=== PATIENT | male | born 1950 | race Two or more races ===

== ENCOUNTER 2021-06-12 14:03 | Inpatient (IN) | payer OTHER ==
[~2021-06-12] VITALS: Ht 172.7 cm; Wt 69.2 kg
[2021-06-12 14:59] LABS: Basophils # (auto) 0 10 ^3/uL (0-0.2); Basophils % (auto) 0.5 % (0.0-2.0); Eosinophils # (auto) 0.5 10 ^3/uL (0-0.8); Eosinophils % (auto) 7.2 % (0.0-7.0); Hematocrit 35.6 % (41.0-53.0); Hemoglobin 11.9 g/dL (13.5-17.5); Lymphocytes # (auto) 1.7 10 ^3/uL (0.4-5.4); Lymphocytes % (auto) 23.3 % (10.0-50.0); Mean Corpuscular Hemoglobin 32.4 pg (28.0-32.0); Mean Corpuscular Hgb Conc. 33.4 g/dL (32.0-36.0); Mean Corpuscular Volume 96.9 fL (80.0-100.0); Monocytes # (auto) 0.5 10 ^3/uL (0-1.3); Monocytes % (auto) 7.2 % (0.0-12.0); Neutrophils # (auto) 4.4 10 ^3/uL (1.6-8.6); Neutrophils % (auto) 61.8 % (37.0-80.0); Red Blood Cells 3.68 10^6/uL (4.5-5.90); Red Cell Distribution Width 13.6 % (11.8-14.3); White Blood Cell 7.2 10^3/uL (4.4-10.8)
[2021-06-12 15:19] LABS: Albumin 3.3 g/dL (3.4-5.0); BUN/Creatinine Ratio 30.3; Bilirubin, Total 0.3 mg/dL (0.2-1.0); Calcium 9.2 mg/dL (8.5-10.1); Total Protein 7.1 g/dL (6.4-8.2)
[2021-06-12 15:55] LABS: Potassium 5.6 mmol/L (3.5-5.1)
[2021-06-12] MEDS ORDERED: DEXTROSE (50%) 50ML SYRG IV ONE (16:15)
[2021-06-12] MEDS ORDERED: FUROSEMIDE 20 MG/2 ML VIAL IV ONE (16:15)
[2021-06-12] MEDS ORDERED: SODIUM BICARBONATE 8.4% INJ 50ML SYRINGE IV ONE (16:15)
[2021-06-12] MEDS ORDERED: CALCIUM GLUC 1,000mg/50ml-NS 50 ML IV ONE (16:15)
[2021-06-12] MEDS ORDERED: InsuLIN REG 1unit/0.01ml Soln (100units/ml) IV ONE (16:15)
[2021-06-12] MEDS ORDERED: ALBUTEROL SULF 2.5 MG/0.5ML(0.5%) NEB SOLN NEB ONE (16:15)
[2021-06-12] MEDS ORDERED: SODIUM ZIRCONIUM CYCL 10 GM PAK PO ONE ×2 (16:15→22:00)
[2021-06-12 20:54] LABS: Urine Bacteria FEW /hpf (None Seen); Urine Blood Negative /uL (Negative); Urine Specific Gravity 1.012 (1.001-1.035); Urine WBC 3 /hpf (0 - 3)
[2021-06-12] MEDS ORDERED: NITROGLYCERIN 0.4 MG SL TAB SL PRN (22:00)
[2021-06-12] MEDS ORDERED: ONDANSETRON HCL 4 MG/2 ML VIAL IV PRN (22:00)
[2021-06-12] MEDS: InsuLIN REG 1unit/0.01ml Soln (100units/ml) SC SCH (22:00)
[2021-06-12] MEDS ORDERED: ACETAMINOPHEN 325 MG TAB PO PRN (22:00)
[2021-06-12] MEDS ORDERED: DEXTROSE (50%) 50ML SYRG IV PRN (22:00)
[2021-06-12] MEDS ORDERED: MORPHINE SULFATE INJECTION 2 MG/ML SYRG IV PRN (22:00)
[2021-06-12] MEDS: ACCU-CHEK COMFORT CURVE STRIP VI SCH (22:23)
[2021-06-12] MEDS: ATORVASTATIN 20 MG TAB PO SCH (23:12)
[2021-06-13] MEDS: ACCU-CHEK COMFORT CURVE STRIP VI SCH ×5 (06:32→21:45)
[2021-06-13] MEDS: InsuLIN REG 1unit/0.01ml Soln (100units/ml) SC SCH ×3 (06:32→17:33)
[2021-06-13 07:50] LABS: Basophils # (auto) 0 10 ^3/uL (0-0.2); Basophils % (auto) 0.6 % (0.0-2.0); Eosinophils # (auto) 0.3 10 ^3/uL (0-0.8); Eosinophils % (auto) 3.6 % (0.0-7.0); Hematocrit 34.1 % (41.0-53.0); Hemoglobin 11.5 g/dL (13.5-17.5); Lymphocytes # (auto) 1.7 10 ^3/uL (0.4-5.4); Lymphocytes % (auto) 22.4 % (10.0-50.0); Mean Corpuscular Hemoglobin 32.4 pg (28.0-32.0); Mean Corpuscular Hgb Conc. 33.8 g/dL (32.0-36.0); Monocytes # (auto) 0.6 10 ^3/uL (0-1.3); Monocytes % (auto) 7.5 % (0.0-12.0); Neutrophils # (auto) 4.9 10 ^3/uL (1.6-8.6); Neutrophils % (auto) 65.9 % (37.0-80.0); Red Blood Cells 3.55 10^6/uL (4.5-5.90); Red Cell Distribution Width 13.6 % (11.8-14.3); White Blood Cell 7.4 10^3/uL (4.4-10.8)
[2021-06-13] MEDS: cefTRIAXone 1GM/50ML D5W 50 ML IV SCH (08:56)
[2021-06-13 09:55] LABS: BUN/Creatinine Ratio 32.5; Calcium 9.3 mg/dL (8.5-10.1); Potassium 5.5 mmol/L (3.5-5.1)
[2021-06-13] MEDS: PANTOPRAZOLE 40 MG TAB PO SCH (10:06)
[2021-06-13] MEDS: FUROSEMIDE 40 MG/4 ML VIAL IV SCH (17:04)
[2021-06-13] MEDS ORDERED: ATOR10TA52 PO (19:04)
[2021-06-13] MEDS ORDERED: GLIP10TA9 PO (19:04)
[2021-06-13] MEDS ORDERED: METF500S PO (19:04)
[2021-06-13 20:00] VITALS: BP 102/68
[2021-06-13] MEDS ORDERED: SODIUM BICARBONATE 8.4 % INJ 50ML VIAL IV ONE (21:00)
[2021-06-13] MEDS ORDERED: DEXTROSE (50%) 50ML SYRG IV ONE (21:00)
[2021-06-13] MEDS ORDERED: CALCIUM GLUC 1,000mg/50ml-NS 50 ML IV ONE (21:00)
[2021-06-13] MEDS ORDERED: ALBUTEROL SULF 2.5 MG/0.5ML(0.5%) NEB SOLN NEB ONE (21:00)
[2021-06-13] MEDS ORDERED: InsuLIN REG 1unit/0.01ml Soln (100units/ml) IV ONE (21:00)
[2021-06-13 22:00] VITALS: BP 102/68
[2021-06-13] MEDS ORDERED: LORazepam 2MG/ML-1ML VIAL IV PRN (22:15)
[2021-06-14] MEDS: ATORVASTATIN 20 MG TAB PO SCH ×2 (00:50→22:08)
[2021-06-14 05:00] VITALS: BP 128/68
[2021-06-14 05:43] LABS: Basophils # (auto) 0.1 10 ^3/uL (0-0.2); Basophils % (auto) 1.7 % (0.0-2.0); Eosinophils # (auto) 0.4 10 ^3/uL (0-0.8); Eosinophils % (auto) 6.2 % (0.0-7.0); Hematocrit 34.8 % (41.0-53.0); Hemoglobin 11.9 g/dL (13.5-17.5); Lymphocytes # (auto) 1.8 10 ^3/uL (0.4-5.4); Lymphocytes % (auto) 26.2 % (10.0-50.0); Mean Corpuscular Hemoglobin 32.6 pg (28.0-32.0); Mean Corpuscular Hgb Conc. 34.1 g/dL (32.0-36.0); Mean Corpuscular Volume 95.5 fL (80.0-100.0); Monocytes # (auto) 0.5 10 ^3/uL (0-1.3); Monocytes % (auto) 7.6 % (0.0-12.0); Neutrophils # (auto) 4.1 10 ^3/uL (1.6-8.6); Neutrophils % (auto) 58.3 % (37.0-80.0); Nucleated Red Blood Cells % 0.1 %; Red Blood Cells 3.65 10^6/uL (4.5-5.90); Red Cell Distribution Width 13.7 % (11.8-14.3)
[2021-06-14 06:09] LABS: Calcium 9.2 mg/dL (8.5-10.1); Magnesium 1.9 mg/dL (1.6-2.6); Potassium 4.6 mmol/L (3.5-5.1)
[2021-06-14 06:11] LABS: BUN/Creatinine Ratio 37.2
[2021-06-14 06:12] LABS: Cholesterol 90 mg/dL (< 200); HDL Cholesterol 38 mg/dL (40-59); LDL Cholesterol 44 mg/dL (< 100); Triglycerides 70 mg/dL (< 150)
[2021-06-14] MEDS: ACCU-CHEK COMFORT CURVE STRIP VI SCH ×4 (07:00→22:09)
[2021-06-14] MEDS: InsuLIN REG 1unit/0.01ml Soln (100units/ml) SC SCH ×5 (07:00→22:08)
[2021-06-14] MEDS: PANTOPRAZOLE 40 MG TAB PO SCH (08:57)
[2021-06-14] MEDS: ASPirin-EC 81 mg tab PO SCH (08:57)
[2021-06-14] MEDS: cefTRIAXone 1GM/50ML D5W 50 ML IV SCH (08:57)
[2021-06-14] MEDS: FUROSEMIDE 40 MG/4 ML VIAL IV SCH (08:58)
[2021-06-14 09:00] VITALS: BP 136/90
[2021-06-14 12:57] VITALS: BP 148/86
[2021-06-14] MEDS ORDERED: LIDOCAINE 2% JELLY 11ml (GLYDO) UR ONE (13:00)
[2021-06-14 17:00] VITALS: BP 127/86
[2021-06-14] MEDS: TAMSULOSIN HYDROCHLORIDE 0.4 MG CAP PO SCH (17:45)
[2021-06-14 22:00] VITALS: BP 102/60
[2021-06-15 04:30] VITALS: BP 114/61
[2021-06-15] MEDS: InsuLIN REG 1unit/0.01ml Soln (100units/ml) SC SCH ×4 (07:00→23:36)
[2021-06-15 07:15] LABS: Potassium 4.8 mmol/L (3.5-5.1)
[2021-06-15 07:21] LABS: BUN/Creatinine Ratio 29.9; Calcium 8.9 mg/dL (8.5-10.1)
[2021-06-15] MEDS: ACCU-CHEK COMFORT CURVE STRIP VI SCH ×4 (07:45→23:37)
[2021-06-15 09:00] VITALS: BP 100/64
[2021-06-15] MEDS: cefTRIAXone 1GM/50ML D5W 50 ML IV SCH (10:26)
[2021-06-15] MEDS: ASPirin-EC 81 mg tab PO SCH (10:27)
[2021-06-15] MEDS: PANTOPRAZOLE 40 MG TAB PO SCH (10:27)
[2021-06-15] MEDS: FUROSEMIDE 40 MG/4 ML VIAL IV SCH (10:27)
[2021-06-15 13:00] VITALS: BP_SYST 117; BP_SYST 146; BP_DIAS 62; BP_DIAS 75
[2021-06-15] MEDS: TAMSULOSIN HYDROCHLORIDE 0.4 MG CAP PO SCH (16:54)
[2021-06-15 17:00] VITALS: BP 146/75
[2021-06-15 22:00] VITALS: BP 106/57
[2021-06-15] MEDS: ATORVASTATIN 20 MG TAB PO SCH (23:32)
[2021-06-15] MEDS: HEPARIN SODIUM (PORCINE) 5000 UNITS/ML 1ML VIAL SC SCH (23:33)
[2021-06-16 05:30] VITALS: BP 142/63
[2021-06-16 06:19] LABS: Basophils # (auto) 0 10 ^3/uL (0-0.2); Basophils % (auto) 0.7 % (0.0-2.0); Eosinophils # (auto) 0.5 10 ^3/uL (0-0.8); Eosinophils % (auto) 7.4 % (0.0-7.0); Hematocrit 32.2 % (41.0-53.0); Lymphocytes # (auto) 1.9 10 ^3/uL (0.4-5.4); Lymphocytes % (auto) 27.5 % (10.0-50.0); Mean Corpuscular Hemoglobin 32.6 pg (28.0-32.0); Mean Corpuscular Hgb Conc. 34.1 g/dL (32.0-36.0); Mean Corpuscular Volume 95.5 fL (80.0-100.0); Monocytes # (auto) 0.6 10 ^3/uL (0-1.3); Monocytes % (auto) 8.9 % (0.0-12.0); Neutrophils # (auto) 3.8 10 ^3/uL (1.6-8.6); Neutrophils % (auto) 55.5 % (37.0-80.0); Nucleated Red Blood Cells % 0.1 %; Red Blood Cells 3.38 10^6/uL (4.5-5.90); Red Cell Distribution Width 13.4 % (11.8-14.3); White Blood Cell 6.9 10^3/uL (4.4-10.8)
[2021-06-16] MEDS: InsuLIN REG 1unit/0.01ml Soln (100units/ml) SC SCH ×4 (06:25→22:16)
[2021-06-16] MEDS: ACCU-CHEK COMFORT CURVE STRIP VI SCH ×4 (06:26→21:59)
[2021-06-16 06:37] LABS: Potassium 4.6 mmol/L (3.5-5.1)
[2021-06-16 06:46] LABS: BUN/Creatinine Ratio 34.9; Calcium 9.4 mg/dL (8.5-10.1); Magnesium 1.9 mg/dL (1.6-2.6)
[2021-06-16 09:11] VITALS: BP 126/72
[2021-06-16] MEDS: cefTRIAXone 1GM/50ML D5W 50 ML IV SCH (09:49)
[2021-06-16] MEDS: HEPARIN SODIUM (PORCINE) 5000 UNITS/ML 1ML VIAL SC SCH ×2 (09:49→22:16)
[2021-06-16] MEDS: PANTOPRAZOLE 40 MG TAB PO SCH (09:50)
[2021-06-16] MEDS: ASPirin-EC 81 mg tab PO SCH (09:50)
[2021-06-16] MEDS: FUROSEMIDE 40 MG/4 ML VIAL IV SCH (09:50)
[2021-06-16 13:16] VITALS: BP 150/88
[2021-06-16 15:53] LABS: BUN/Creatinine Ratio 33.2; Calcium 8.7 mg/dL (8.5-10.1)
[2021-06-16 17:00] VITALS: BP 139/81
[2021-06-16] MEDS: TAMSULOSIN HYDROCHLORIDE 0.4 MG CAP PO SCH (18:21)
[2021-06-16] MEDS: ALBUMIN 25% 100 ML IV SCH ×2 (20:04→21:57)
[2021-06-16] MEDS: ATORVASTATIN 20 MG TAB PO SCH (21:56)
[2021-06-16] MEDS: CARVEDILOL 3.125 MG TAB PO SCH (21:59)
[2021-06-16 22:00] VITALS: BP_SYST 65; BP_SYST 80; BP_SYST 99; BP_DIAS 39; BP_DIAS 49; BP_DIAS 56
[2021-06-17 05:00] VITALS: BP 133/68
[2021-06-17] MEDS: ACCU-CHEK COMFORT CURVE STRIP VI SCH ×4 (05:55→21:56)
[2021-06-17] MEDS: InsuLIN REG 1unit/0.01ml Soln (100units/ml) SC SCH ×4 (05:55→22:04)
[2021-06-17 07:02] LABS: Calcium 9.3 mg/dL (8.5-10.1); Potassium 4.3 mmol/L (3.5-5.1)
[2021-06-17 07:04] LABS: BUN/Creatinine Ratio 33.6
[2021-06-17 09:00] VITALS: BP 150/89
[2021-06-17] MEDS: CARVEDILOL 3.125 MG TAB PO SCH ×2 (09:23→22:00)
[2021-06-17] MEDS: cefTRIAXone 1GM/50ML D5W 50 ML IV SCH (09:23)
[2021-06-17] MEDS: PANTOPRAZOLE 40 MG TAB PO SCH (09:24)
[2021-06-17] MEDS: ASPirin-EC 81 mg tab PO SCH (09:24)
[2021-06-17] MEDS: HEPARIN SODIUM (PORCINE) 5000 UNITS/ML 1ML VIAL SC SCH ×2 (09:24→22:04)
[2021-06-17] MEDS ORDERED: SODIUM CHLORIDE 0.9% 1,000 ML IV ONE (11:30)
[2021-06-17 13:00] VITALS: BP 109/68
[2021-06-17 17:00] VITALS: BP 152/67
[2021-06-17] MEDS: TAMSULOSIN HYDROCHLORIDE 0.4 MG CAP PO SCH (17:34)
[2021-06-17] MEDS: ATORVASTATIN 20 MG TAB PO SCH (21:55)
[2021-06-17 22:00] VITALS: BP 133/64
[2021-06-18 05:00] VITALS: BP 148/78
[2021-06-18] MEDS: InsuLIN REG 1unit/0.01ml Soln (100units/ml) SC SCH ×4 (06:05→21:43)
[2021-06-18] MEDS: ACCU-CHEK COMFORT CURVE STRIP VI SCH ×4 (06:05→21:41)
[2021-06-18 06:29] LABS: BUN/Creatinine Ratio 36.3; Calcium 9.4 mg/dL (8.5-10.1); Potassium 4.7 mmol/L (3.5-5.1)
[2021-06-18 09:00] VITALS: BP 150/81
[2021-06-18] MEDS: cefTRIAXone 1GM/50ML D5W 50 ML IV SCH (09:14)
[2021-06-18] MEDS: HEPARIN SODIUM (PORCINE) 5000 UNITS/ML 1ML VIAL SC SCH ×2 (10:00→21:43)
[2021-06-18] MEDS: CARVEDILOL 3.125 MG TAB PO SCH ×2 (12:26→22:00)
[2021-06-18] MEDS: PANTOPRAZOLE 40 MG TAB PO SCH (12:38)
[2021-06-18] MEDS: ASPirin-EC 81 mg tab PO SCH (12:38)
[2021-06-18 13:00] VITALS: BP 152/78
[2021-06-18 16:27] LABS: BUN/Creatinine Ratio 32.4; Calcium 9.4 mg/dL (8.5-10.1)
[2021-06-18 17:00] VITALS: BP 189/86
[2021-06-18] MEDS: TAMSULOSIN HYDROCHLORIDE 0.4 MG CAP PO SCH (18:23)
[2021-06-18] MEDS: ATORVASTATIN 20 MG TAB PO SCH (21:41)
[2021-06-18 22:00] VITALS: BP 152/73
[2021-06-18 23:10] VITALS: BP 152/73
[2021-06-19 05:30] VITALS: BP 155/76
[2021-06-19] MEDS: InsuLIN REG 1unit/0.01ml Soln (100units/ml) SC SCH (06:42)
[2021-06-19] MEDS: ACCU-CHEK COMFORT CURVE STRIP VI SCH (06:42)
== END 2021-06-19 07:07 | disposition home or self-care (01) | DRG 312 ==
LOC: EDBD 14:03 → ER 14:03 → TELE 21:53 → TELE-WESTW 06-13 18:04
PROVIDERS: ADMIT Nurse Practitioner; ATTEND Internal Medicine
DX: I95.1 Orthostatic hypotension (principal); N17.0 Acute kidney failure with tubular necrosis; N39.0 Urinary tract infection, site not specified; E87.5 Hyperkalemia; E11.43 Type 2 diabetes mellitus with diabetic autonomic (poly)neuropathy; Z20.822 Contact with and (suspected) exposure to COVID-19; E11.22 Type 2 diabetes mellitus with diabetic chronic kidney disease; I12.9 Hypertensive chronic kidney disease with stage 1 through stage 4 chronic kidney disease, or unspecified chronic kidney disease; I65.22 Occlusion and stenosis of left carotid artery; N18.9 Chronic kidney disease, unspecified; N40.1 Benign prostatic hyperplasia with lower urinary tract symptoms; R33.8 Other retention of urine; Z79.82 Long term (current) use of aspirin; Z79.84 Long term (current) use of oral hypoglycemic drugs; Z79.899 Other long term (current) drug therapy; Z82.3 Family history of stroke; Z82.49 Family history of ischemic heart disease and other diseases of the circulatory system; Z85.47 Personal history of malignant neoplasm of testis
CPT/HCPCS: 36415; 70450; 70551; 71045; 76775; 80048; 80053; 80061; 81001; 82962; 83735; 83880; 84132; 84154; 84484; 85025; 87086; 87426; 93005; 93306; 93886; 94640; 95819; 96365; 96375; 97163; 99291; G0378; J0696; J1815; P9047

== ENCOUNTER 2025-02-23 12:37 | Inpatient (IN) | payer OTHER, MEDICAID ==
[~2025-02-23] VITALS: Ht 172.7 cm; Wt 71.6 kg
[~2025-02-23 12:37] MED LIST: ATOR10TA52 PO; GLIP10TA9 PO; METF500S3 PO
--- NOTE | 2025-02-23 13:29 | ED.PDOC ---
Musculoskeletal HPI Comments 74 y/o M, with PMHx of HTN, DM, HLD, CKD III, and testicular cancer presents to the ED for CC of lower extremity. Patient states, that he has been experiencing right foot pain with associated right great toe pain, swelling, erythema, and discharge x1week. Patient reports, despite having regular wound care symptoms continue to worsen. Patient denies fever, chills, sweats, recent trauma, fall, or injury. No other symptoms or modifying factors present at this time. Chief Complaint: Lower Extremity Time Seen by MD: 13:20 Primary Care Provider: ANKUR Reviewed Notes: Nurses Notes, Medications, Allergies Allergies: Coded Allergies: NO KNOWN ALLERGIES (Unverified , 06/12/21) Home Meds Reported Medications Atorvastatin Calcium (ATORVASTATIN CALCIUM) 10 Mg Tab, 10 MG PO DAILY, TAB 06/13/21 Glipizide (Glipizide) 10 Mg Tab, 10 MG PO, TAB 06/13/21 Metformin HCl (Metformin Hydrochloride) 500 Mg/5 Ml Gwendolyn, 500 MG PO, ML 06/13/21 Information Source: Patient Mode of Arrival: Ambulatory Location: Right Extremity Location: Foot, Great Toe Timing: Weeks Prehospital treatment: None Severity: Moderate Able to Move Extremity: Yes Bear Weight: Limited Pain: Moderate Mechanism: Spontaneous Circumstances: Spontaneous Onset of Symptoms: Spontaneous Symptoms: Swelling, Pain, Erythema DVT Risk Factors: Cancer Last Tetanus: Unknown Associated signs and symptoms: None Past Medical History PAST MEDICAL HISTORY: Cancer, CKF, DM, High Lipids, HTN Surgical History (Other): TESTICULAR Family History Family History: Reviewed,noncontributory to illness Social History Smoker: Non-Smoker Alcohol: Denies ETOH Use Drugs: Denies Drug Use Constitutional: denies: chills, diaphoresis, fatigue, fever, malaise, sweats, weakness, others EENTM: denies: blurred vision, double vision, ear bleeding, ear discharge, ear drainage, ear pain, ear ringing, eye pain, eye redness, hearing loss, mouth pain, mouth swelling, nasal discharge, nose bleeding, nose congestion, nose pain, photophobia, tearing, throat pain, throat swelling, voice changes, others Respiratory: denies: cough, hemoptysis, orthopnea, SOB at rest, shortness of breath, SOB with excertion, stridor, wheezing, others Cardiovascular: denies: chest pain, dizzy spells, diaphoresis, Dyspnea on exertion, edema, irregular heart beat, left arm pain, lightheadedness, palpitations, PND, syncope, others Gastrointestinal: denies: abdomen distended, abdominal pain, blood streaked bowels, constipated, diarrhea, dysphagia, difficulty swallowing, hematemesis, melena, nausea, poor appetite, poor fluid intake, rectal bleeding, rectal pain, vomiting, others Genitourinary: denies: burning, dysuria, flank pain, frequency, hematuria, incontinence, penile discharge, penile sore, pain, testicle pain, testicle swelling, urgency, others Neurological: denies: dizziness, fainting, headache, left sided numbness, left sided weakness, numbness, paresthesia, pre-existing deficit, right sided numbness, right sided weakness, seizure, speech problems, tingling, tremors, weakness, others Musculoskeletal: reports: others (RIGHT GREAT TOE PAIN); denies: back pain, gout, joint pain, joint swelling, muscle pain, muscle stiffness, neck pain Integumetry: denies: bruises, change in color, change in hair/nails, dryness, laceration, lesions, lumps, rash, wounds, others Allergic/Immunocompromised: denies: Difficulty Healing, Frequent Infections, Hives, Itching, others Hematologic/Lymphatic: denies: anemia, blood clots, easy bleeding, easy bruising, swollen glands, others Endocrine: denies: excessive hunger, excessive sweating, excessive thirst, excessive urination, flushing, intolerance to cold, intolerance to heat, unexplained weight gain, unexplained weight loss, others Psychiatric: denies: anxiety, bipolar disorder, depression, hopeless, panic disorder, schizophrenia, sleepless, suicidal, others All Other Systems: Reviewed and Negative Physical Exam General Appearance: Moderate Distress HEENT: Normal ENT Inspection, Pharynx Normal, TMs Normal Neck: Full Range of Motion, Non-Tender, Normal, Normal Inspection Respiratory: Chest Non-Tender, Lungs Clear, No Accessory Muscle Use, No Respiratory Distress, Normal Breath Sounds Cardiovascular: No Edema, No JVD, No Murmur, No Gallop, Normal Peripheral Pulses, Regular Rate/Rhythm Breast Exam: Deferred Gastrointestinal: No Organomegaly, Non Tender, No Pulsatile Mass, Normal Bowel Sounds, Soft Genitalia: Deferred Pelvic: Deferred Rectal: Deferred Extremities: No calf tenderness, Normal capillary refill, No pedal edema Musculoskeletal : Location: Right Extremity Location: Foot (Redness to the right great toe with necrosis to the bottom of the right great toe) Apperance: Limited ROM, Tenderness: Moderate, Other (The patient has a splint to the right lower extremity) Neurologic: Alert, furnace firer II-XII nml as Tested, No Motor Deficits, Normal Affect, Normal Mood, No Sensory Deficits Cerebellar Function: Normal Reflexes: Normal Skin: Dry, Normal Color, Warm Lymphatic: No Adenopathy Was a procedure done? Was a procedure done?: No Differential Diagnosis EXT Differential Diagnosis: Cellulitis, Gout, Bursitis X-Ray, Labs, Meds, VS Vital Signs Date Time Temp Pulse Resp B/P (MAP) Pulse Ox O2 Delivery O2 Flow Rate FiO2 02/23/25 12:43 98.9 87 20 96/55 (69) 96 98.9 101/58 (72) Lab Test 02/23/25 13:48 02/23/25 13:08 Range/Units White Blood Count 6.8 4.4-10.8 10^3/uL Red Blood Count 3.97 L 4.5-5.90 10^6/uL Hemoglobin 12.7 L 13.5-17.5 g/dL Hematocrit 36.1 L 41.0-53.0 % Mean Corpuscular Volume 90.9 80.0-100.0 fL Mean Corpuscular Hemoglobin 32.1 H 28.0-32.0 pg Mean Corpuscular Hemoglobin Concent 35.2 32.0-36.0 g/dL Red Cell Distribution Width 13.7 11.8-14.3 % Platelet Count 359 140-450 10^3/uL Mean Platelet Volume 7.3 6.9-10.8 fL Neutrophils (%) (Auto) 74.5 37.0-80.0 % Lymphocytes (%) (Auto) 13.9 10.0-50.0 % Monocytes (%) (Auto) 9.5 0.0-12.0 % Eosinophils (%) (Auto) 1.5 0.0-7.0 % Basophils (%) (Auto) 0.6 0.0-2.0 % Neutrophils # (Auto) 5.0 1.6-8.6 10 ^3/uL Lymphocytes # (Auto) 0.9 0.4-5.4 10 ^3/uL Monocytes # (Auto) 0.6 0-1.3 10 ^3/uL Eosinophils # (Auto) 0.1 0-0.8 10 ^3/uL Basophils # (Auto) 0 0-0.2 10 ^3/uL Nucleated Red Blood Cells 0.0 % Erythrocyte Sedimentation Rate 93 H 0-20 mm/hr Sodium Level 135 L 136-145 mmol/L Potassium Level 2.5 *L 3.5-5.1 mmol/L Chloride Level 86 L 98-107 mmol/L Carbon Dioxide Level 34 H 20-31 mmol/L Anion Gap 15 5-15 Blood Urea Nitrogen 80 *H 9-23 mg/dL Creatinine 2.56 H 0.700-1.30 mg/dL Glomerular Filtration Rate Calc 26 >90 mL/min BUN/Creatinine Ratio 31.3 H 10.0-20.0 Serum Glucose 197 H 74-106 mg/dL Calcium Level 10.5 H 8.7-10.4 mg/dL POC Glucose 195 H 70-106 mg/dl CT RIGHT FOOT: Findings/IMPRESSION: No acute fracture or dislocation. Old medial malleolar fracture. There is soft tissue emphysema and ulceration along the medial aspect of the 1st digit. There are erosive changes along the medial aspect and base of the 1st distal phalanx concerning for osteomyelitis /aggressive process. Correlate clinically. Recommend MRI of the right foot to evaluate. There is diffuse right ankle and foot soft tissue edema more pronounced along the dorsal aspect. Pronounced soft tissue edema along the right foot 1st digit. Atherosclerotic calcification disease. Right foot osteomyelitis was seen on the CAT scan The patient's chemistry panel shows hypokalemia at 2.5 as well as a BUN of 80 and creatinine of 2.56 The patient's CBC is within normal limits The patient is being admitted to the hospitalist Images Reviewed?: Images reviewed and evaluated by me Time of 1ST Reevaluation: 13:50 Reevaluation 1ST: Unchanged Patient Education/Counseling: Diagnosis, Treatment, Prognosis Family Education/Counseling: No Family Present Departure 1 Departure Time of Disposition: 14:48 Impression: Primary Impression: Hypokalemia Additional Impression: Foot osteomyelitis, right Qualified Codes: M86.9 - Osteomyelitis, unspecified Disposition: 09 ADMITTED INPATIENT Admit to: [facility] Condition: Fair Critical Care Note Critical Care Time?: No Stability Stability form required: No Heart Score Heart Score: Heart Score Response (Comments) Value History N/A 0 EKG N/A 0 Age N/A 0 Risk Factors N/A 0 Troponin N/A 0 Total 0 I personally scribed for ROSS VEGA MD ([email or web address]) on 02/23/25 at 13:29. Electronically submitted by Jana Parada ([email or web address]). I personally scribed for ROSS VEGA MD ([email or web address]) on 02/23/25 at 14:39. Electronically submitted by Jana Parada ([email or web address]). ROSS VEGA MD Feb 23, 2025 13:29
[2025-02-23 13:55] LABS: Basophils # (auto) 0 10 ^3/uL (0-0.2); Basophils % (auto) 0.6 % (0.0-2.0); Eosinophils # (auto) 0.1 10 ^3/uL (0-0.8); Eosinophils % (auto) 1.5 % (0.0-7.0); Hematocrit 36.1 % (41.0-53.0); Hemoglobin 12.7 g/dL (13.5-17.5); Lymphocytes # (auto) 0.9 10 ^3/uL (0.4-5.4); Lymphocytes % (auto) 13.9 % (10.0-50.0); Mean Corpuscular Hemoglobin 32.1 pg (28.0-32.0); Mean Corpuscular Hgb Conc. 35.2 g/dL (32.0-36.0); Mean Corpuscular Volume 90.9 fL (80.0-100.0); Monocytes # (auto) 0.6 10 ^3/uL (0-1.3); Monocytes % (auto) 9.5 % (0.0-12.0); Neutrophils % (auto) 74.5 % (37.0-80.0); Platelet Count (auto) 359 10^3/uL (140-450); Red Blood Cells 3.97 10^6/uL (4.5-5.90); Red Cell Distribution Width 13.7 % (11.8-14.3); White Blood Cell 6.8 10^3/uL (4.4-10.8)
[2025-02-23 14:09] LABS: Calcium 10.5 mg/dL (8.7-10.4); Carbon Dioxide 34 mmol/L (20-31)
[2025-02-23 14:11] LABS: BUN/Creatinine Ratio 31.3 (10.0-20.0)
[2025-02-23 14:13] LABS: Sodium 135 mmol/L (136-145)
[2025-02-23 14:14] LABS: Anion Gap 15 (5-15); Chloride 86 mmol/L (98-107); Glucose 197 mg/dL (74-106); Potassium 2.5 mmol/L (3.5-5.1)
[2025-02-23 14:15] LABS: Blood Urea Nitrogen 80 mg/dL (9-23)
--- NOTE | 2025-02-23 14:21 | DVH ---
Indication: pain Technique: CT axial images of the right foot are obtained without contrast. Coronal and sagittal refo rmats were obtained. Comparison: None Findings/IMPRESSION: No acute fracture or dislocation. Old medial malleolar fracture. There is soft tissue emphysema and ulceration along the medial aspect of the 1st digit. There are erosive changes along the medial aspect and base of the 1st distal phalanx concerning for o steomyelitis /aggressive process. Correlate clinically. Recommend MRI of the right foot to evaluate . There is diffuse right ankle and foot soft tissue edema more pronounced along the dorsal aspect. Pron ounced soft tissue edema along the right foot 1st digit. Atherosclerotic calcification disease.
[2025-02-23 14:33] LABS: Erythrocyte Sedimentation Rate 93 mm/hr (0-20)
[2025-02-23] MEDS: SODIUM CHLORIDE 0.9% 500 ML IV ONE (17:00)
[2025-02-23] MEDS: VANCOMYCIN 1GM/200ML PM 200 ML IV ONE (17:39)
[2025-02-23] MEDS: POTASSIUM CHL 20MEQ/100ML 100 ML IV ONE (17:39)
[2025-02-23] MEDS ORDERED: DOCUSATE SOD 100 MG CAP PO PRN (19:30)
[2025-02-23] MEDS ORDERED: ACETAMINOPHEN 325 MG TAB PO PRN (19:30)
[2025-02-23] MEDS ORDERED: ONDANSETRON HCL 4 MG/2 ML VIAL IV PRN (19:30)
--- NOTE | 2025-02-23 19:46 | DVHHP2 ---
Admitting Diagnosis: right foot cellulitis History of Present Illness 74 y/o M, with PMHx of HTN, DM, HLD, CKD III, and testicular cancer presents to the ED for CC of lower extremity. Patient states, that he has been experiencing right foot pain with associated right great toe pain, swelling, erythema, and discharge x1week. Patient reports, despite having regular wound care symptoms continue to worsen. Patient denies fever, chills, sweats, recent trauma, fall, or injury. No other symptoms or modifying factors present at this time. PAST MEDICAL HISTORY: Cancer, CKF, DM, High Lipids, HTN Surgical History (Other): TESTICULAR Family History Family History: Reviewed,noncontributory to illness Social History Smoker: Non-Smoker Alcohol: Denies ETOH Use Drugs: Denies Drug Use Patient Family History: Cerebrovascular accident (CVA) G8 MOTHER Allergies: Coded Allergies: NO KNOWN ALLERGIES (Unverified , 06/12/21) Home Meds Reported Medications Atorvastatin Calcium (ATORVASTATIN CALCIUM) 10 Mg Tab, 10 MG PO DAILY, TAB 06/13/21 Glipizide (Glipizide) 10 Mg Tab, 10 MG PO, TAB 06/13/21 Metformin HCl (Metformin Hydrochloride) 500 Mg/5 Ml Gwendolyn, 500 MG PO, ML 06/13/21 Current Medications Current Medications Medications (Trade) Dose Ordered Sig/Bandar Route PRN Reason Start Time Stop Time Status Last Admin Piperacillin Sod/ Tazobactam Sod 100 ml @ 100 mls/hr BID IV 02/23/25 22:00 UNV Sodium Chloride (Saline Lock Ns) 10 ml Q8HR IV 02/23/25 22:00 UNV Docusate Sodium (Colace Capsule) 100 mg BIDPRN PRN PO FOR CONSTIPATION 02/23/25 19:30 UNV Acetaminophen (Tylenol Tablet) 650 mg Q6HP PRN PO PAIN SCALE 1-3 OR TEMP>100.4 02/23/25 19:30 UNV Acetaminophen/ Hydrocodone Bitart ([place] 5/325MG Tab) 1 tab Q4HP PRN PO MODERATE PAIN (4-6 PAIN SCALE) 02/23/25 19:30 UNV Ondansetron HCl (Zofran) 4 mg Q4HP PRN IV NAUSEA / VOMITING 02/23/25 19:30 UNV Vital Signs Vital Signs Date Time Temp Pulse Resp B/P (MAP) Pulse Ox O2 Delivery O2 Flow Rate FiO2 02/23/25 17:56 98.3 16 85 132/65 (87) 97 98.3 02/23/25 16:25 Room Air* 0 21 Physical Exam Generally-74 years old male, well nourished well developed. Mild distress HEENT-atraumatic, normocephalic Heart-regular rate and rhythm Lungs clear to auscultate bilaterally Abdomen soft nontender nondistended Musculoskeletal-right foot wrapped in bandages, right toe erythema and tender, base has healed lesion Neuro-awake alert oriented x3, strength intact bilaterally. Mild decreased sensation bilateral plantar surface Results Labs Test 02/23/25 13:48 02/23/25 13:08 Range/Units White Blood Count 6.8 4.4-10.8 10^3/uL Red Blood Count 3.97 L 4.5-5.90 10^6/uL Hemoglobin 12.7 L 13.5-17.5 g/dL Hematocrit 36.1 L 41.0-53.0 % Mean Corpuscular Volume 90.9 80.0-100.0 fL Mean Corpuscular Hemoglobin 32.1 H 28.0-32.0 pg Mean Corpuscular Hemoglobin Concent 35.2 32.0-36.0 g/dL Red Cell Distribution Width 13.7 11.8-14.3 % Platelet Count 359 140-450 10^3/uL Mean Platelet Volume 7.3 6.9-10.8 fL Neutrophils (%) (Auto) 74.5 37.0-80.0 % Lymphocytes (%) (Auto) 13.9 10.0-50.0 % Monocytes (%) (Auto) 9.5 0.0-12.0 % Eosinophils (%) (Auto) 1.5 0.0-7.0 % Basophils (%) (Auto) 0.6 0.0-2.0 % Neutrophils # (Auto) 5.0 1.6-8.6 10 ^3/uL Lymphocytes # (Auto) 0.9 0.4-5.4 10 ^3/uL Monocytes # (Auto) 0.6 0-1.3 10 ^3/uL Eosinophils # (Auto) 0.1 0-0.8 10 ^3/uL Basophils # (Auto) 0 0-0.2 10 ^3/uL Nucleated Red Blood Cells 0.0 % Erythrocyte Sedimentation Rate 93 H 0-20 mm/hr Sodium Level 135 L 136-145 mmol/L Potassium Level 2.5 *L 3.5-5.1 mmol/L Chloride Level 86 L 98-107 mmol/L Carbon Dioxide Level 34 H 20-31 mmol/L Anion Gap 15 5-15 Blood Urea Nitrogen 80 *H 9-23 mg/dL Creatinine 2.56 H 0.700-1.30 mg/dL Glomerular Filtration Rate Calc 26 >90 mL/min BUN/Creatinine Ratio 31.3 H 10.0-20.0 Serum Glucose 197 H 74-106 mg/dL Calcium Level 10.5 H 8.7-10.4 mg/dL POC Glucose 195 H 70-106 mg/dl Primary Diagnosis Cellulitis rule out osteomyelitis AD on CKD Hypokalemia Hyperglycemia Plan Vancomycin for broad-spectrum antibiotics Podiatry consult Check blood culture Check CRP, ESR Ultrasound abdomen to assess for AD on CKD Dr. Giles consult for AD on CKD Urine sodium, urine creatinine IV fluids NPO after midnight for possible debridement Full code PPI prophylaxis SCD for DVT prophylaxis Plan discussed with: Patient Problems List: (1) Foot osteomyelitis, right Status: Acute (2) Hypokalemia Status: Acute Date of Service: Feb 23, 2025 Billing Provider: LAY ZURITA MD Common Visit Codes: [id number]-[id number] INP/OBS CARE (HIGH) LAY ZURITA MD Feb 23, 2025 19:46
[2025-02-23] MEDS: PIPERACILLIN-TAZOB 3.375GM 100 ML IV ONE (19:48)
[2025-02-23] MEDS ORDERED: DEXTROSE (50%) 50ML SYRG IV PRN (20:00)
[2025-02-23 20:28] LABS: Alkaline Phosphatase 55 U/L (46-116); Anion Gap 12 (5-15); BUN/Creatinine Ratio 28.8 (10.0-20.0); Calcium 10.1 mg/dL (8.7-10.4); Sodium 137 mmol/L (136-145)
[2025-02-23 20:29] LABS: Albumin 4.4 g/dL (3.2-4.8); Aspartate Aminotransferase 15 U/L (<34); Bilirubin, Total 0.7 mg/dL (0.2-1.0)
[2025-02-23 20:30] LABS: Alanine Aminotransferase < 9 U/L (7-40); Blood Urea Nitrogen 79 mg/dL (9-23); Carbon Dioxide 34 mmol/L (20-31); Chloride 91 mmol/L (98-107); Glucose 203 mg/dL (74-106); Potassium 2.6 mmol/L (3.5-5.1)
--- NOTE | 2025-02-23 21:29 | DVH ---
INDICATION: AD on CKD TECHNIQUE: Multiple real-time sonographic images of the kidneys and bladder were obtained. COMPARISON: KIDNEY on DOS: 06/13/21 FINDINGS: RIGHT kidney measures 7.6 cm in length with normal parenchymal echotexture and cortical thickness. No hydronephrosis. LEFT kidney measures 6.4 cm in length with normal parenchymal echotexture and cortical thickness. No hydronephrosis. No large intraluminal masses are seen in the bladder. Urinary bladder wall thickness is 0.2 cm. Post void residual was not evaluated. IMPRESSION: 1. Unremarkable examination. Mild bilateral renal atrophy.
[2025-02-23] MEDS: LACTATED RINGER'S 1,000 ML IV ONE (21:35)
[2025-02-23] MEDS: ACCU-CHEK COMFORT CURVE STRIP VI SCH (21:38)
[2025-02-23] MEDS: InsuLIN REG 1unit/0.01ml Soln (100units/ml) SC SCH (21:44)
[2025-02-23] MEDS: SODIUM CHLOR 0.9% PF (SALINE LOCK) 10ML VIAL/SYR IV SCH (21:46)
[2025-02-23] MEDS ORDERED: VANCOMYCIN PER PHARMACY 0 MG IV SCH (22:30)
[2025-02-23 22:43] LABS: Creatinine, Urine 133.45 mg/dL (30.0-125.0)
[2025-02-23 23:05] VITALS: BP 143/69; PULSE 74; RESP 18; TEMP 97.3; O2SAT 97
[2025-02-24] VITALS (9 sets, daily range): BP systolic 141–158; BP diastolic 58–79; PULSE 70–85; RESP 16–18; TEMP 97–97.8; O2SAT 96–99
[2025-02-24] MEDS: PIPERACILLIN-TAZOB 3.375GM 100 ML IV SCH (05:17)
[2025-02-24] MEDS ORDERED: AMLO1TAB22 PO (06:09)
[2025-02-24] MEDS ORDERED: GLIP2.5T9 PO (06:09)
[2025-02-24] MEDS ORDERED: ASPI-628 PO (06:09)
[2025-02-24] MEDS ORDERED: CALC1CHW PO (06:09)
[2025-02-24] MEDS ORDERED: FURO40TA4 PO (06:09)
[2025-02-24] MEDS ORDERED: CARV12.544 PO (06:09)
[2025-02-24] MEDS ORDERED: TAMS0.4C39 PO (06:09)
[2025-02-24] MEDS: InsuLIN REG 1unit/0.01ml Soln (100units/ml) SC SCH (06:21)
[2025-02-24 07:30] LABS: Basophils # (auto) 0 10 ^3/uL (0-0.2); Basophils % (auto) 0.7 % (0.0-2.0); Eosinophils # (auto) 0.2 10 ^3/uL (0-0.8); Eosinophils % (auto) 3.1 % (0.0-7.0); Hematocrit 33.8 % (41.0-53.0); Lymphocytes # (auto) 1.2 10 ^3/uL (0.4-5.4); Lymphocytes % (auto) 19.6 % (10.0-50.0); Mean Corpuscular Hemoglobin 32.4 pg (28.0-32.0); Mean Corpuscular Hgb Conc. 35.5 g/dL (32.0-36.0); Mean Corpuscular Volume 91.2 fL (80.0-100.0); Monocytes # (auto) 0.7 10 ^3/uL (0-1.3); Monocytes % (auto) 11.6 % (0.0-12.0); Neutrophils # (auto) 3.9 10 ^3/uL (1.6-8.6); Nucleated Red Blood Cells % 0.1 %; Platelet Count (auto) 303 10^3/uL (140-450); Red Blood Cells 3.71 10^6/uL (4.5-5.90); Red Cell Distribution Width 13.7 % (11.8-14.3); White Blood Cell 5.9 10^3/uL (4.4-10.8)
[2025-02-24 07:53] LABS: Albumin 4.1 g/dL (3.2-4.8); Alkaline Phosphatase 49 U/L (46-116); Anion Gap 13 (5-15); Aspartate Aminotransferase 13 U/L (<34); BUN/Creatinine Ratio 30.2 (10.0-20.0); Bilirubin, Total 0.7 mg/dL (0.2-1.0); Calcium 10.2 mg/dL (8.7-10.4); Sodium 140 mmol/L (136-145); Total Protein 7.5 g/dL (5.7-8.2)
[2025-02-24 08:04] LABS: Alanine Aminotransferase < 9 U/L (7-40); Blood Urea Nitrogen 75 mg/dL (9-23); Carbon Dioxide 34 mmol/L (20-31); Chloride 93 mmol/L (98-107); Glucose 114 mg/dL (74-106)
[2025-02-24 08:06] LABS: Potassium 2.4 mmol/L (3.5-5.1)
[2025-02-24] MEDS: POTASSIUM CHLORIDE 40 MEQ, LIDOCAINE 1% (LOCAL ANESTH.) 4 ML in SODIUM CHL 0.9% 250 ML IV ONE (08:30)
[2025-02-24] MEDS: MAGNESIUM SULFATE 1GM/100ML 100 ML IV ONE (09:29)
--- NOTE | 2025-02-24 09:34 | DVHINCON2 ---
Date of service: Feb 24, [address] Montero Reason for Consultation Acute kidney injury hypokalemia History of Present Illness 74 y/o M, with PMHx of HTN, DM, HLD, CKD III, and cancer?? Presented with chief complaints of foot ulcer and pain patient tells me last month he had his blood drawn and was told he had Chronic kidney disease three both his legs were in a bandage, patient seen with RN bedside Past Medical History As per HPI Past Surgical History As per HPI Allergies: Coded Allergies: NO KNOWN ALLERGIES (Unverified , 06/12/21) Home Meds Reported Medications Tamsulosin Hcl (Tamsulosin Hcl) 0.4 Mg Cap, 0.4 MG PO QPM for 30 Days, MG 02/24/25 Amlodipine Besylate (Amlodipine Besylate) 5 Mg Tab, 1 TAB PO DAILY 02/24/25 Furosemide (Furosemide) 40 Mg Tab, 1 TAB PO DAILY 02/24/25 Aspirin (Aspirin Adult Low Dose) 81 Mg Tab, 1 TAB PO DAILY 02/24/25 Glipizide (Glipizide Er) 2.5 Mg Tab, TAB PO 02/24/25 Carvedilol (Carvedilol) 12.5 Mg Tab, TAB PO 02/24/25 Calcium Carbonate-Cholecalcife (Calcium 500-10 mg-Mcg) 1 Chw Chw, 1 TAB PO BID 02/24/25 Atorvastatin Calcium (ATORVASTATIN CALCIUM) 10 Mg Tab, 10 MG PO DAILY, TAB 06/13/21 Glipizide (Glipizide) 10 Mg Tab, 10 MG PO, TAB 06/13/21 Metformin HCl (Metformin Hydrochloride) 500 Mg/5 Ml Gwendolyn, 500 MG PO, ML 06/13/21 Current Medications Current Medications Medications (Trade) Dose Ordered Sig/Bandar Route PRN Reason Start Time Stop Time Status Last Admin Piperacillin Sod/ Tazobactam Sod 100 ml @ 25 mls/hr Q12H IV 02/24/25 06:00 02/24/25 05:17 Sodium Chloride (Saline Lock Ns) 10 ml Q8HR IV 02/23/25 22:00 02/24/25 06:18 Docusate Sodium (Colace Capsule) 100 mg BIDPRN PRN PO FOR CONSTIPATION 02/23/25 19:30 Acetaminophen (Tylenol Tablet) 650 mg Q6HP PRN PO PAIN SCALE 1-3 OR TEMP>100.4 02/23/25 19:30 Acetaminophen/ Hydrocodone Bitart ([place] 5/325MG Tab) 1 tab Q4HP PRN PO MODERATE PAIN (4-6 PAIN SCALE) 02/23/25 19:30 Ondansetron HCl (Zofran) 4 mg Q4HP PRN IV NAUSEA / VOMITING 02/23/25 19:30 Diagnostic Test (Pha) (Accu-Chek Comfort Curve T) 1 strip ACHS 02/23/25 22:00 02/24/25 06:21 Insulin Human Regular (InsuLIN R) HS SC 02/23/25 22:00 02/23/25 21:44 Insulin Human Regular (InsuLIN R) AC SC 02/24/25 07:00 Dextrose 50 ml UD PRN IV Blood Sugar LESS THAN 60 02/23/25 20:00 Pantoprazole Sodium (Protonix) 40 mg DAILY IV 02/24/25 10:00 Atorvastatin Calcium (Lipitor) 10 mg HS PO 02/24/25 22:00 Vancomycin HCl 0 ml @ 0 mls/hr UD IV 02/23/25 22:30 Potassium Bicarbonate (Klor-Con/Ef) 50 meq BID PO 02/24/25 10:00 02/26/25 22:01 UNV Family History: Cerebrovascular accident (CVA) G8 MOTHER FH: CABG (coronary artery bypass surgery) G8 FATHER FH: liver disease G8 FATHER Hepatitis C G8 FATHER Review of Systems HEENT-denies headache, denies vision changes, no hearing issue, denies neck complaints, denies throat issues Respiratory system-denies cough, denies shortness of breath Cardiovascular system-denies chest pain, denies palpitations Abdomen-denies abdominal pain, denies nausea, denies vomiting, denies constipation or diarrhea Musculoskeletal-denies swelling in the legs, positive pain in the extremities Genitourinary-denies urinary symptoms like dysuria, stream issues Neuro-denies dizziness, denies seizures Psychiatric-denies psychiatric history H&P Exam Vital Signs/I&O Vital Sign Date Time Temp Pulse Resp B/P (MAP) Pulse Ox O2 Delivery O2 Flow Rate FiO2 02/24/25 05:00 97.1 74 18 141/76 (97) 98 97.1 02/23/25 23:05 Room Air* 0 21 Intake and Output 02/23/25 02/24/25 18:59 06:59 Intake Total 100 ml Output Total 300 ml Balance -200 ml Intake Oral 0 ml IV Total 100 ml Output Urine Total 300 ml Physical Exam General-not in any distress HEENT-normocephalic, no icterus, no pallor, neck supple Respiratory-fair air entry bilateral, no rhonchi, no wheeze [id number] heard, no murmurs appreciated Abdominal-soft, nontender, nondistended Musculoskeletal-both bilateral lower extremities wrapped in bandage no significant edema Genitourinary-deferred Neuro-awake alert oriented x3, Psychiatric-not agitated, cooperative, Labs/Diagnostic Data Labs/Diagnostic Data Laboratory Tests Test 02/24/25 06:24 02/24/25 06:02 02/23/25 21:50 02/23/25 21:37 Range/Units White Blood Count 5.9 4.4-10.8 10^3/uL Red Blood Count 3.71 L 4.5-5.90 10^6/uL Hemoglobin 12.0 L 13.5-17.5 g/dL Hematocrit 33.8 L 41.0-53.0 % Mean Corpuscular Volume 91.2 80.0-100.0 fL Mean Corpuscular Hemoglobin 32.4 H 28.0-32.0 pg Mean Corpuscular Hemoglobin Concent 35.5 32.0-36.0 g/dL Red Cell Distribution Width 13.7 11.8-14.3 % Platelet Count 303 140-450 10^3/uL Mean Platelet Volume 7.6 6.9-10.8 fL Neutrophils (%) (Auto) 65.0 37.0-80.0 % Lymphocytes (%) (Auto) 19.6 10.0-50.0 % Monocytes (%) (Auto) 11.6 0.0-12.0 % Eosinophils (%) (Auto) 3.1 0.0-7.0 % Basophils (%) (Auto) 0.7 0.0-2.0 % Neutrophils # (Auto) 3.9 1.6-8.6 10 ^3/uL Lymphocytes # (Auto) 1.2 0.4-5.4 10 ^3/uL Monocytes # (Auto) 0.7 0-1.3 10 ^3/uL Eosinophils # (Auto) 0.2 0-0.8 10 ^3/uL Basophils # (Auto) 0 0-0.2 10 ^3/uL Nucleated Red Blood Cells 0.1 % Sodium Level 140 136-145 mmol/L Potassium Level 2.4 *L 3.5-5.1 mmol/L Chloride Level 93 L 98-107 mmol/L Carbon Dioxide Level 34 H 20-31 mmol/L Anion Gap 13 5-15 Blood Urea Nitrogen 75 H 9-23 mg/dL Creatinine 2.48 H 0.700-1.30 mg/dL Glomerular Filtration Rate Calc 27 >90 mL/min BUN/Creatinine Ratio 30.2 H 10.0-20.0 Serum Glucose 114 H 74-106 mg/dL Calcium Level 10.2 8.7-10.4 mg/dL Total Bilirubin 0.7 0.2-1.0 mg/dL Aspartate Amino Transferase (AST) 13 <34 U/L Alanine Aminotransferase (ALT) < 9 7-40 U/L Alkaline Phosphatase 49 46-116 U/L Total Protein 7.5 5.7-8.2 g/dL Albumin 4.1 3.2-4.8 g/dL Random Vancomycin Level 15.1 H 5-10 ug/mL POC Glucose 123 H 202 H 70-106 mg/dl Urine Creatinine 133.45 H 30.0-125.0 mg/dL Urine Sodium 30 L 40-220 mmol/L Test 02/23/25 20:00 02/23/25 13:48 02/23/25 13:08 Range/Units Sodium Level 137 135 L 136-145 mmol/L Potassium Level 2.6 L 2.5 *L 3.5-5.1 mmol/L Chloride Level 91 L 86 L 98-107 mmol/L Carbon Dioxide Level 34 H 34 H 20-31 mmol/L Anion Gap 12 15 5-15 Blood Urea Nitrogen 79 H 80 *H 9-23 mg/dL Creatinine 2.74 H 2.56 H 0.700-1.30 mg/dL Glomerular Filtration Rate Calc 24 26 >90 mL/min BUN/Creatinine Ratio 28.8 H 31.3 H 10.0-20.0 Serum Glucose 203 H 197 H 74-106 mg/dL Calcium Level 10.1 10.5 H 8.7-10.4 mg/dL Total Bilirubin 0.7 0.2-1.0 mg/dL Aspartate Amino Transferase (AST) 15 <34 U/L Alanine Aminotransferase (ALT) < 9 7-40 U/L Alkaline Phosphatase 55 46-116 U/L Total Protein 8.0 5.7-8.2 g/dL Albumin 4.4 3.2-4.8 g/dL White Blood Count 6.8 4.4-10.8 10^3/uL Red Blood Count 3.97 L 4.5-5.90 10^6/uL Hemoglobin 12.7 L 13.5-17.5 g/dL Hematocrit 36.1 L 41.0-53.0 % Mean Corpuscular Volume 90.9 80.0-100.0 fL Mean Corpuscular Hemoglobin 32.1 H 28.0-32.0 pg Mean Corpuscular Hemoglobin Concent 35.2 32.0-36.0 g/dL Red Cell Distribution Width 13.7 11.8-14.3 % Platelet Count 359 140-450 10^3/uL Mean Platelet Volume 7.3 6.9-10.8 fL Neutrophils (%) (Auto) 74.5 37.0-80.0 % Lymphocytes (%) (Auto) 13.9 10.0-50.0 % Monocytes (%) (Auto) 9.5 0.0-12.0 % Eosinophils (%) (Auto) 1.5 0.0-7.0 % Basophils (%) (Auto) 0.6 0.0-2.0 % Neutrophils # (Auto) 5.0 1.6-8.6 10 ^3/uL Lymphocytes # (Auto) 0.9 0.4-5.4 10 ^3/uL Monocytes # (Auto) 0.6 0-1.3 10 ^3/uL Eosinophils # (Auto) 0.1 0-0.8 10 ^3/uL Basophils # (Auto) 0 0-0.2 10 ^3/uL Nucleated Red Blood Cells 0.0 % Erythrocyte Sedimentation Rate 93 H 0-20 mm/hr POC Glucose 195 H 70-106 mg/dl Assessment Acute kidney injury on Chronic kidney disease IIIb likely hemodynamic etiology Hypokalemia Metabolic alkalosis Foot ulcer Diabetes Hypertension Recommendations Potassium replacement as ordered NS IV with 40 KCL as ordered Home medications reviewed patient taking hydrochlorothiazide 50 mg and Lasix 40 mg--we will hold diuretics for now Strict Is&Os charting No hydronephrosis on ultrasound Rest of the management per primary Plan discussed with: Patient SHANTANU BECK MD Feb 24, 2025 09:34
[2025-02-24] MEDS: PNEUMOCOCCAL VACC POLYS 25 MCG/0.5 ML VIAL IM ONE (09:57)
[2025-02-24] MEDS ORDERED: POTASSIUM EFFERVESENT TAB 25 MEQ PO SCH (10:00)
[2025-02-24] MEDS: PANTOPRAZOLE 40 MG/10 ML VIAL INJ IV SCH (10:56)
[2025-02-24] MEDS: VANCOMYCIN 750mg/150ml 150 ML IV ONE (11:19)
--- NOTE | 2025-02-24 14:31 | DVH ---
CLINICAL HISTORY: Right foot cellulitis. TECHNIQUE: Multi sequence multi planar MRI images of the right foot were obtained without IV contras t. COMPARISON: CT CT R FOOT WO CONTRAST on DOS: 02/23/25 FINDINGS: Wound at the distal aspect of the great toe with surrounding soft tissue edema, likely ibeth lulitis in the appropriate clinical setting. There is marrow edema with T1 hypointense and t2/stir hy perintense signal in the distal phalanx with possible erosive changes, suspected osteomyelitis in the appropriate clinical setting. No marrow signal abnormality in the proximal phalanx of the great toe or in the rest of the visualized osseous structures to suggest osteomyelitis. There is cortical defo rmity of the articular surface of the 3rd metatarsal head, suspected subchondral fracture with mild m arrow edema. Moderate subcutaneous edema along the dorsal aspect of the forefoot, possible cellulitis in the appropriate clinical setting. There is [id number] tenosynovitis of the flexor hallucis longus tendon along its plantar course to the level of the knot of [place]. Marked fatty atrophy of the intrinsic musculature of the foot. IMPRESSION: 1. Wound at the distal aspect of the great toe with surrounding soft tissue inflammatory changes, lik zackary cellulitis in the appropriate clinical setting. No organized fluid collection identified to sugge st abscess, although limited evaluation for abscess on noncontrast enhanced exam. 2. Findings consistent with osteomyelitis in the distal phalanx of the great toe in the appropriate c linical setting. 3. Subchondral fracture of the 3rd metatarsal head with associated marrow edema and mild cortical def ormity. 4. Moderate subcutaneous edema along the dorsal aspect of the forefoot, may be due to cellulitis in t he appropriate clinical setting. 5. Additional findings as described above.
[2025-02-24 16:59] LABS: Albumin 4.3 g/dL (3.2-4.8); Alkaline Phosphatase 54 U/L (46-116); Anion Gap 10 (5-15); Aspartate Aminotransferase 16 U/L (<34); BUN/Creatinine Ratio 30.6 (10.0-20.0); Calcium 9.8 mg/dL (8.7-10.4); Glucose 83 mg/dL (74-106); Sodium 141 mmol/L (136-145); Total Protein 7.8 g/dL (5.7-8.2)
[2025-02-24 17:00] LABS: Bilirubin, Total 0.8 mg/dL (0.2-1.0)
[2025-02-24 17:04] LABS: Alanine Aminotransferase < 9 U/L (7-40); Blood Urea Nitrogen 63 mg/dL (9-23); Carbon Dioxide 37 mmol/L (20-31); Chloride 94 mmol/L (98-107); Potassium 2.6 mmol/L (3.5-5.1)
[2025-02-24] MEDS: SOD CHL 0.9%/ KCL 40MEQ 1,000 ML IV ONE (17:36)
[2025-02-24] MEDS: POTASSIUM EFFERVESENT TAB 25 MEQ PO ONE (17:49)
[2025-02-24] MEDS: POTASSIUM CHL 20 Meq TABLET PO ONE (19:27)
[2025-02-24] MEDS: ATORVASTATIN 20 MG TAB PO SCH (21:09)
[2025-02-25] VITALS (10 sets, daily range): BP systolic 119–136; BP diastolic 55–72; PULSE 76–86; RESP 16–18; TEMP 97.6–98.9; O2SAT 94–99
[2025-02-25 06:31] LABS: Basophils # (auto) 0 10 ^3/uL (0-0.2); Basophils % (auto) 0.6 % (0.0-2.0); Eosinophils # (auto) 0.2 10 ^3/uL (0-0.8); Eosinophils % (auto) 2.8 % (0.0-7.0); Hematocrit 34.5 % (41.0-53.0); Hemoglobin 12.3 g/dL (13.5-17.5); Lymphocytes % (auto) 12.3 % (10.0-50.0); Mean Corpuscular Hemoglobin 32.6 pg (28.0-32.0); Mean Corpuscular Hgb Conc. 35.6 g/dL (32.0-36.0); Mean Corpuscular Volume 91.6 fL (80.0-100.0); Monocytes # (auto) 0.7 10 ^3/uL (0-1.3); Monocytes % (auto) 8.5 % (0.0-12.0); Neutrophils % (auto) 75.8 % (37.0-80.0); Nucleated Red Blood Cells % 0.2 %; Platelet Count (auto) 318 10^3/uL (140-450); Red Blood Cells 3.76 10^6/uL (4.5-5.90); Red Cell Distribution Width 13.9 % (11.8-14.3)
[2025-02-25 06:54] LABS: Albumin 4.1 g/dL (3.2-4.8); Alkaline Phosphatase 50 U/L (46-116); Anion Gap 9 (5-15); Aspartate Aminotransferase 15 U/L (<34); BUN/Creatinine Ratio 25.4 (10.0-20.0); Calcium 9.5 mg/dL (8.7-10.4); Chloride 101 mmol/L (98-107); Potassium 4.3 mmol/L (3.5-5.1); Sodium 142 mmol/L (136-145); Total Protein 7.3 g/dL (5.7-8.2)
[2025-02-25 06:55] LABS: Bilirubin, Total 0.7 mg/dL (0.2-1.0)
[2025-02-25 07:00] LABS: Carbon Dioxide 32 mmol/L (20-31); Glucose 168 mg/dL (74-106)
[2025-02-25 07:01] LABS: Alanine Aminotransferase < 9 U/L (7-40); Blood Urea Nitrogen 51 mg/dL (9-23)
--- NOTE | 2025-02-25 09:26 | DVHPN2 ---
Progress Note Date Seen: Feb 25, 2025 Medical Necessity Reason Pt with a Central, PICC or Fol: No Subjective Patient reports: No new complaints Other Systems: Patient seen and examined by myself today in follow-up Objective vital signs Vital Sign Date Time Temp Pulse Resp B/P (MAP) Pulse Ox O2 Delivery O2 Flow Rate FiO2 02/25/25 08:20 98.5 86 17 121/55 (77) 94 98.5 02/25/25 08:09 Room Air* 0 21 Total Intake and Output 02/24/25 02/24/25 02/25/25 15:00 23:00 07:00 Intake Total 524 ml 100 ml 1750 ml Output Total 100 ml 950 ml Balance 524 ml 0 ml 800 ml medications Current Medications Medications Dose Ordered Sig/Bandar Route Start Time Stop Time Status Last Admin Dose Admin Piperacillin Sod/ Tazobactam Sod 100 ml @ 25 mls/hr Q12H IV 02/24/25 06:00 02/25/25 05:46 25 MLS/HR Sodium Chloride 10 ml Q8HR IV 02/23/25 22:00 02/25/25 05:46 10 ML Docusate Sodium 100 mg BIDPRN PRN PO 02/23/25 19:30 Acetaminophen 650 mg Q6HP PRN PO 02/23/25 19:30 Acetaminophen/ Hydrocodone Bitart 1 tab Q4HP PRN PO 02/23/25 19:30 Ondansetron HCl 4 mg Q4HP PRN IV 02/23/25 19:30 Diagnostic Test (Pha) 1 strip ACHS 02/23/25 22:00 02/25/25 06:15 1 STRIP Insulin Human Regular HS SC 02/23/25 22:00 02/24/25 21:10 8 UNITS Insulin Human Regular AC SC 02/24/25 07:00 02/25/25 06:15 3 UNITS Dextrose 50 ml UD PRN IV 02/23/25 20:00 Pantoprazole Sodium 40 mg DAILY IV 02/24/25 10:00 02/25/25 09:16 40 MG Atorvastatin Calcium 10 mg HS PO 02/24/25 22:00 02/24/25 21:09 10 MG Vancomycin HCl 0 ml @ 0 mls/hr UD IV 02/23/25 22:30 Examination: LUNGS:Normal, CVS:Normal, MSK:Abnormal laboratory and microbiology Laboratory Tests 02/25/25 06:16 Test 02/25/25 06:16 Range/Units Serum Glucose 168 H 74-106 mg/dL Problem List/Assessment/Plan Problem List/Assessment/Plan Acute kidney injury on Chronic kidney disease IIIb likely hemodynamic etiology Hypokalemia Metabolic alkalosis Diabetes mellitus Osteomyelitis right foot Hypertension Recommendations Kidney function stable stage IIIB Increased urine output KCL replacement Kidney ultrasound reported bilateral echogenic kidney IV antibiotics Insulin sliding scale We will continue to follow up Plan discussed with: Patient Dietary Evaluation Review Comments: 1. Enourage and monitor PO intake to meet at least 75% of his needs. CCHO-60 Renal Standard diet 2. Offfer glucerna PO 240 ml BID as supplement if PO intake <75% 3. Review updated lipid profile d/c lipitor if LDL < 75. Expected Outcomes/Goals: Promote healing through well-managed DM and renal diet. prevent wt loss. QUOC QUINONEZ MD Feb 25, 2025 09:26
--- NOTE | 2025-02-25 13:12 | DVHPN2 ---
Reviewed: Care Plan, H&P, Labs, Medications, Previous Orders, Radiology Changes from previous H/P or p: No Changes Objective Vitals Vital Signs Date Time Temp Pulse Resp B/P (MAP) Pulse Ox O2 Delivery O2 Flow Rate FiO2 02/25/25 12:52 98.3 80 17 131/62 (85) 99 98.3 02/25/25 08:09 Room Air* 0 21 Intake/Output Intake and Output 02/25/25 07:00 Intake Total 2374 ml Output Total 1050 ml Balance 1324 ml Intake Oral 750 ml IV Total 1624 ml Output Urine Total 1050 ml # Bowel Movements 1 Medications Current Medications Medications Dose Ordered Sig/Bandar Route Start Time Stop Time Status Last Admin Dose Admin Piperacillin Sod/ Tazobactam Sod 100 ml @ 25 mls/hr Q12H IV 02/24/25 06:00 02/25/25 05:46 25 MLS/HR Sodium Chloride 10 ml Q8HR IV 02/23/25 22:00 02/25/25 05:46 10 ML Docusate Sodium 100 mg BIDPRN PRN PO 02/23/25 19:30 Acetaminophen 650 mg Q6HP PRN PO 02/23/25 19:30 Acetaminophen/ Hydrocodone Bitart 1 tab Q4HP PRN PO 02/23/25 19:30 Ondansetron HCl 4 mg Q4HP PRN IV 02/23/25 19:30 Diagnostic Test (Pha) 1 strip ACHS 02/23/25 22:00 02/25/25 10:55 1 STRIP Insulin Human Regular HS SC 02/23/25 22:00 02/24/25 21:10 8 UNITS Insulin Human Regular AC SC 02/24/25 07:00 02/25/25 10:56 6 UNITS Dextrose 50 ml UD PRN IV 02/23/25 20:00 Pantoprazole Sodium 40 mg DAILY IV 02/24/25 10:00 02/25/25 09:16 40 MG Atorvastatin Calcium 10 mg HS PO 02/24/25 22:00 02/24/25 21:09 10 MG Vancomycin HCl 0 ml @ 0 mls/hr UD IV 02/23/25 22:30 Laboratory Results Laboratory Tests 02/25/25 06:16 Chemistry Test 02/24/25 16:15 02/25/25 06:16 Albumin 4.3 g/dL (3.2-4.8) 4.1 g/dL (3.2-4.8) Calcium Level 9.8 mg/dL (8.7-10.4) 9.5 mg/dL (8.7-10.4) Total Protein 7.8 g/dL (5.7-8.2) 7.3 g/dL (5.7-8.2) LFT Test 02/24/25 16:15 02/25/25 06:16 Alanine Aminotransferase (ALT) < 9 U/L (7-40) < 9 U/L (7-40) Alkaline Phosphatase 54 U/L (46-116) 50 U/L (46-116) Aspartate Amino Transferase (AST) 16 U/L (<34) 15 U/L (<34) Total Bilirubin 0.8 mg/dL (0.2-1.0) 0.7 mg/dL (0.2-1.0) Urinalysis Test 02/23/25 21:50 Urine Creatinine 133.45 mg/dL (30.0-125.0) H Urine Sodium 30 mmol/L (40-220) L Labs and/or images reviewed: Labs reviewed by me, Image(s) reviewed by me Assessment/Plan Assessment/Plan Late entry Cellulitis right lower leg Osteomyelitis right 1st toe: Consult for Dr. Valdez, continue Zosyn and vancomycin Fracture right 3rd metatarsal Acute kidney injury on Chronic kidney disease IIIb likely hemodynamic etiology Hypokalemia Metabolic alkalosis Diabetes mellitus: Insulin sliding scale Hypertension Time spent 70 minutes Advanced care planning time 20 minutes Patient is full code Plan discussed with: Patient My Orders Orders - ADARSH WILLIS MD Procedure Category Date Status Time Renal DIET 02/24/25 Transmitted Standard(2gna,3gk,Lopho) Dinner Apply Barrier Cream SALVADOR 02/24/25 In Process 11:20 Podiatry Consult CONS 02/25/25 Transmitted 13:06 Date of Service: Feb 24, 2025 Billing Provider: ADARSH WILLIS MD Common Visit Codes: [id number] CARE 30-74 MIN ADARSH WILLIS MD Feb 25, 2025 13:12
--- NOTE | 2025-02-25 13:13 | DVHPN2 ---
Reviewed: Care Plan, H&P, Labs, Medications, Previous Orders, Radiology Changes from previous H/P or p: No Changes Objective Vitals Vital Signs Date Time Temp Pulse Resp B/P (MAP) Pulse Ox O2 Delivery O2 Flow Rate FiO2 02/25/25 12:52 98.3 80 17 131/62 (85) 99 98.3 02/25/25 08:09 Room Air* 0 21 Intake/Output Intake and Output 02/25/25 07:00 Intake Total 2374 ml Output Total 1050 ml Balance 1324 ml Intake Oral 750 ml IV Total 1624 ml Output Urine Total 1050 ml # Bowel Movements 1 Medications Current Medications Medications Dose Ordered Sig/Bandar Route Start Time Stop Time Status Last Admin Dose Admin Piperacillin Sod/ Tazobactam Sod 100 ml @ 25 mls/hr Q12H IV 02/24/25 06:00 02/25/25 05:46 25 MLS/HR Sodium Chloride 10 ml Q8HR IV 02/23/25 22:00 02/25/25 05:46 10 ML Docusate Sodium 100 mg BIDPRN PRN PO 02/23/25 19:30 Acetaminophen 650 mg Q6HP PRN PO 02/23/25 19:30 Acetaminophen/ Hydrocodone Bitart 1 tab Q4HP PRN PO 02/23/25 19:30 Ondansetron HCl 4 mg Q4HP PRN IV 02/23/25 19:30 Diagnostic Test (Pha) 1 strip ACHS 02/23/25 22:00 02/25/25 10:55 1 STRIP Insulin Human Regular HS SC 02/23/25 22:00 02/24/25 21:10 8 UNITS Insulin Human Regular AC SC 02/24/25 07:00 02/25/25 10:56 6 UNITS Dextrose 50 ml UD PRN IV 02/23/25 20:00 Pantoprazole Sodium 40 mg DAILY IV 02/24/25 10:00 02/25/25 09:16 40 MG Atorvastatin Calcium 10 mg HS PO 02/24/25 22:00 02/24/25 21:09 10 MG Vancomycin HCl 0 ml @ 0 mls/hr UD IV 02/23/25 22:30 Laboratory Results Laboratory Tests 02/25/25 06:16 Chemistry Test 02/24/25 16:15 02/25/25 06:16 Albumin 4.3 g/dL (3.2-4.8) 4.1 g/dL (3.2-4.8) Calcium Level 9.8 mg/dL (8.7-10.4) 9.5 mg/dL (8.7-10.4) Total Protein 7.8 g/dL (5.7-8.2) 7.3 g/dL (5.7-8.2) LFT Test 02/24/25 16:15 02/25/25 06:16 Alanine Aminotransferase (ALT) < 9 U/L (7-40) < 9 U/L (7-40) Alkaline Phosphatase 54 U/L (46-116) 50 U/L (46-116) Aspartate Amino Transferase (AST) 16 U/L (<34) 15 U/L (<34) Total Bilirubin 0.8 mg/dL (0.2-1.0) 0.7 mg/dL (0.2-1.0) Urinalysis Test 02/23/25 21:50 Urine Creatinine 133.45 mg/dL (30.0-125.0) H Urine Sodium 30 mmol/L (40-220) L Labs and/or images reviewed: Labs reviewed by me, Image(s) reviewed by me Assessment/Plan Assessment/Plan Late entry Cellulitis right lower leg Osteomyelitis right 1st toe: Consult for Dr. 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
[2025-02-25] MEDS: HYDROcodone-ACET 5/325MG TAB PO PRN (22:00)
[2025-02-26] VITALS (7 sets, daily range): BP systolic 115–149; BP diastolic 67–77; PULSE 73–97; RESP 17–19; TEMP 97.4–98.9; O2SAT 95–98
[2025-02-26 07:35] LABS: Basophils # (auto) 0 10 ^3/uL (0-0.2); Basophils % (auto) 0.7 % (0.0-2.0); Eosinophils # (auto) 0.3 10 ^3/uL (0-0.8); Eosinophils % (auto) 3.6 % (0.0-7.0); Hematocrit 34.3 % (41.0-53.0); Hemoglobin 11.9 g/dL (13.5-17.5); Lymphocytes # (auto) 1.2 10 ^3/uL (0.4-5.4); Lymphocytes % (auto) 16.4 % (10.0-50.0); Mean Corpuscular Hemoglobin 32.5 pg (28.0-32.0); Mean Corpuscular Hgb Conc. 34.7 g/dL (32.0-36.0); Mean Corpuscular Volume 93.7 fL (80.0-100.0); Monocytes # (auto) 0.7 10 ^3/uL (0-1.3); Monocytes % (auto) 10.2 % (0.0-12.0); Neutrophils # (auto) 4.9 10 ^3/uL (1.6-8.6); Neutrophils % (auto) 69.1 % (37.0-80.0); Platelet Count (auto) 251 10^3/uL (140-450); Red Blood Cells 3.66 10^6/uL (4.5-5.90); Red Cell Distribution Width 14.1 % (11.8-14.3); White Blood Cell 7.1 10^3/uL (4.4-10.8)
[2025-02-26 07:39] LABS: Albumin 3.9 g/dL (3.2-4.8); Anion Gap 10 (5-15); Aspartate Aminotransferase 15 U/L (<34); BUN/Creatinine Ratio 17.3 (10.0-20.0); Calcium 9.8 mg/dL (8.7-10.4); Carbon Dioxide 30 mmol/L (20-31); Chloride 101 mmol/L (98-107); Potassium 3.6 mmol/L (3.5-5.1); Sodium 141 mmol/L (136-145); Total Protein 7.1 g/dL (5.7-8.2)
[2025-02-26 07:40] LABS: Bilirubin, Total 0.8 mg/dL (0.2-1.0)
[2025-02-26 07:51] LABS: Alanine Aminotransferase < 9 U/L (7-40); Alkaline Phosphatase 44 U/L (46-116); Blood Urea Nitrogen 33 mg/dL (9-23); Glucose 149 mg/dL (74-106)
--- NOTE | 2025-02-26 07:57 | DVHPN2 ---
Reviewed: Care Plan, H&P, Labs, Medications, Previous Orders, Radiology Changes from previous H/P or p: No Changes Objective Vitals Vital Signs Date Time Temp Pulse Resp B/P (MAP) Pulse Ox O2 Delivery O2 Flow Rate FiO2 02/26/25 05:07 98.6 73 18 121/67 (85) 96 98.6 02/25/25 20:00 Room Air* 0 21 Intake/Output Intake and Output 02/26/25 07:00 Intake Total 3591 ml Output Total 700 ml Balance 2891 ml Intake Oral 3351 ml IV Total 240 ml Output Urine Total 700 ml # Bowel Movements 1 Medications Current Medications Medications Dose Ordered Sig/Bandar Route Start Time Stop Time Status Last Admin Dose Admin Piperacillin Sod/ Tazobactam Sod 100 ml @ 25 mls/hr Q12H IV 02/24/25 06:00 02/26/25 05:19 25 MLS/HR Sodium Chloride 10 ml Q8HR IV 02/23/25 22:00 02/26/25 05:19 10 ML Docusate Sodium 100 mg BIDPRN PRN PO 02/23/25 19:30 Acetaminophen 650 mg Q6HP PRN PO 02/23/25 19:30 Acetaminophen/ Hydrocodone Bitart 1 tab Q4HP PRN PO 02/23/25 19:30 02/25/25 22:00 1 TAB Ondansetron HCl 4 mg Q4HP PRN IV 02/23/25 19:30 Diagnostic Test (Pha) 1 strip ACHS 02/23/25 22:00 02/26/25 06:11 1 STRIP Insulin Human Regular HS SC 02/23/25 22:00 02/25/25 21:56 4 UNITS Insulin Human Regular AC SC 02/24/25 07:00 02/26/25 06:11 2 UNITS Dextrose 50 ml UD PRN IV 02/23/25 20:00 Pantoprazole Sodium 40 mg DAILY IV 02/24/25 10:00 02/25/25 09:16 40 MG Atorvastatin Calcium 10 mg HS PO 02/24/25 22:00 02/25/25 21:52 10 MG Vancomycin HCl 0 ml @ 0 mls/hr UD IV 02/23/25 22:30 Laboratory Results Laboratory Tests 02/26/25 06:46 Chemistry Test 02/26/25 06:46 Albumin 3.9 g/dL (3.2-4.8) Calcium Level 9.8 mg/dL (8.7-10.4) Total Protein 7.1 g/dL (5.7-8.2) LFT Test 02/26/25 06:46 Alanine Aminotransferase (ALT) < 9 U/L (7-40) Alkaline Phosphatase 44 U/L (46-116) L Aspartate Amino Transferase (AST) 15 U/L (<34) Total Bilirubin 0.8 mg/dL (0.2-1.0) Urinalysis Test 02/23/25 21:50 Urine Creatinine 133.45 mg/dL (30.0-125.0) H Urine Sodium 30 mmol/L (40-220) L Labs and/or images reviewed: Labs reviewed by me, Image(s) reviewed by me Assessment/Plan Assessment/Plan Cellulitis right lower leg Osteomyelitis right 1st toe: Consult for Dr. 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
--- NOTE | 2025-02-26 09:20 | DVHPN2 ---
Progress Note Date Seen: Feb 26, 2025 Medical Necessity Reason Pt with a Central, PICC or Fol: No Subjective Patient reports: No new complaints Other Systems: Patient seen and examined by myself today in follow-up Objective vital signs Vital Sign Date Time Temp Pulse Resp B/P (MAP) Pulse Ox O2 Delivery O2 Flow Rate FiO2 02/26/25 05:07 98.6 73 18 121/67 (85) 96 98.6 02/25/25 20:00 Room Air* 0 21 Total Intake and Output 02/25/25 02/25/25 02/26/25 15:00 23:00 07:00 Intake Total 1731 ml 1700 ml 160 ml Output Total 300 ml 400 ml Balance 1731 ml 1400 ml -240 ml medications Current Medications Medications Dose Ordered Sig/Bandar Route Start Time Stop Time Status Last Admin Dose Admin Piperacillin Sod/ Tazobactam Sod 100 ml @ 25 mls/hr Q12H IV 02/24/25 06:00 02/26/25 05:19 25 MLS/HR Sodium Chloride 10 ml Q8HR IV 02/23/25 22:00 02/26/25 05:19 10 ML Docusate Sodium 100 mg BIDPRN PRN PO 02/23/25 19:30 Acetaminophen 650 mg Q6HP PRN PO 02/23/25 19:30 Acetaminophen/ Hydrocodone Bitart 1 tab Q4HP PRN PO 02/23/25 19:30 02/25/25 22:00 1 TAB Ondansetron HCl 4 mg Q4HP PRN IV 02/23/25 19:30 Diagnostic Test (Pha) 1 strip ACHS 02/23/25 22:00 02/26/25 06:11 1 STRIP Insulin Human Regular HS SC 02/23/25 22:00 02/25/25 21:56 4 UNITS Insulin Human Regular AC SC 02/24/25 07:00 02/26/25 06:11 2 UNITS Dextrose 50 ml UD PRN IV 02/23/25 20:00 Pantoprazole Sodium 40 mg DAILY IV 02/24/25 10:00 02/26/25 08:52 40 MG Atorvastatin Calcium 10 mg HS PO 02/24/25 22:00 02/25/25 21:52 10 MG Vancomycin HCl 0 ml @ 0 mls/hr UD IV 02/23/25 22:30 Examination: LUNGS:Normal, CVS:Normal, MSK:Normal laboratory and microbiology Laboratory Tests 02/26/25 06:46 Test 02/26/25 06:46 Range/Units Serum Glucose 149 H 74-106 mg/dL Problem List/Assessment/Plan Problem List/Assessment/Plan Acute kidney injury on Chronic kidney disease IIIb likely hemodynamic etiology Hypokalemia, replace Metabolic alkalosis Diabetes mellitus Osteomyelitis right foot Hypertension Recommendations Kidney function is improving Increased urine output KCL replacement Kidney ultrasound reported bilateral echogenic kidney IV antibiotics Insulin sliding scale We will continue to follow up Plan discussed with: Patient Dietary Evaluation Review Comments: 1. Enourage and monitor PO intake to meet at least 75% of his needs. CCHO-60 Renal Standard diet 2. Offfer glucerna PO 240 ml BID as supplement if PO intake <75% 3. Review updated lipid profile d/c lipitor if LDL < 75. Expected Outcomes/Goals: Promote healing through well-managed DM and renal diet. prevent wt loss. QUOC QUINONEZ MD Feb 26, 2025 09:20
[2025-02-26] MEDS: VANCOMYCIN 1GM/250ML KIT 250 ML IV ONE (12:35)
[2025-02-27] VITALS (8 sets, daily range): BP systolic 112–133; BP diastolic 64–75; PULSE 75–89; RESP 15–19; TEMP 97.3–98.6; O2SAT 92–100
[2025-02-27 06:41] LABS: Basophils # (auto) 0 10 ^3/uL (0-0.2); Basophils % (auto) 0.6 % (0.0-2.0); Eosinophils # (auto) 0.3 10 ^3/uL (0-0.8); Eosinophils % (auto) 3.6 % (0.0-7.0); Hematocrit 31.6 % (41.0-53.0); Hemoglobin 11.1 g/dL (13.5-17.5); Lymphocytes # (auto) 1.3 10 ^3/uL (0.4-5.4); Lymphocytes % (auto) 16.1 % (10.0-50.0); Mean Corpuscular Hemoglobin 32.6 pg (28.0-32.0); Mean Corpuscular Hgb Conc. 35.1 g/dL (32.0-36.0); Monocytes # (auto) 0.8 10 ^3/uL (0-1.3); Monocytes % (auto) 9.6 % (0.0-12.0); Neutrophils # (auto) 5.5 10 ^3/uL (1.6-8.6); Neutrophils % (auto) 70.1 % (37.0-80.0); Nucleated Red Blood Cells % 0.1 %; Platelet Count (auto) 253 10^3/uL (140-450); White Blood Cell 7.8 10^3/uL (4.4-10.8)
[2025-02-27 06:51] LABS: Anion Gap 11 (5-15); BUN/Creatinine Ratio 16.9 (10.0-20.0); Calcium 9.7 mg/dL (8.7-10.4); Carbon Dioxide 28 mmol/L (20-31); Chloride 99 mmol/L (98-107); INR 1.08 (0.9-1.15); Partial Thromboplastin Time 29.6 SEC (24.5-34.5); Potassium 3.5 mmol/L (3.5-5.1); Prothrombin Time 11.4 sec (9.3-11.8); Sodium 138 mmol/L (136-145); Total Protein 6.9 g/dL (5.7-8.2)
[2025-02-27 06:52] LABS: Alanine Aminotransferase < 9 U/L (7-40); Albumin 3.8 g/dL (3.2-4.8); Alkaline Phosphatase 42 U/L (46-116); Aspartate Aminotransferase 12 U/L (<34); Bilirubin, Total 0.8 mg/dL (0.2-1.0); Blood Urea Nitrogen 32 mg/dL (9-23); Glucose 170 mg/dL (74-106)
--- NOTE | 2025-02-27 09:10 | DVHPN2 ---
Reviewed: Care Plan, H&P, Labs, Medications, Previous Orders, Radiology Changes from previous H/P or p: No Changes Objective Vitals Vital Signs Date Time Temp Pulse Resp B/P (MAP) Pulse Ox O2 Delivery O2 Flow Rate FiO2 02/27/25 05:00 98.2 75 16 120/71 (87) 97 98.2 02/26/25 20:00 Room Air* 0 21 Intake/Output Intake and Output 02/27/25 07:00 Intake Total 680 ml Output Total 400 ml Balance 280 ml Intake Oral 520 ml IV Total 160 ml Output Urine Total 400 ml Medications Current Medications Medications Dose Ordered Sig/Bandar Route Start Time Stop Time Status Last Admin Dose Admin Piperacillin Sod/ Tazobactam Sod 100 ml @ 25 mls/hr Q12H IV 02/24/25 06:00 02/27/25 05:42 25 MLS/HR Sodium Chloride 10 ml Q8HR IV 02/23/25 22:00 02/27/25 05:43 10 ML Docusate Sodium 100 mg BIDPRN PRN PO 02/23/25 19:30 Acetaminophen 650 mg Q6HP PRN PO 02/23/25 19:30 Acetaminophen/ Hydrocodone Bitart 1 tab Q4HP PRN PO 02/23/25 19:30 02/25/25 22:00 1 TAB Ondansetron HCl 4 mg Q4HP PRN IV 02/23/25 19:30 Diagnostic Test (Pha) 1 strip ACHS 02/23/25 22:00 02/27/25 06:11 1 STRIP Insulin Human Regular HS SC 02/23/25 22:00 02/26/25 20:50 6 UNITS Insulin Human Regular AC SC 02/24/25 07:00 02/27/25 06:12 3 UNITS Dextrose 50 ml UD PRN IV 02/23/25 20:00 Pantoprazole Sodium 40 mg DAILY IV 02/24/25 10:00 02/26/25 08:52 40 MG Atorvastatin Calcium 10 mg HS PO 02/24/25 22:00 02/26/25 20:49 10 MG Vancomycin HCl 0 ml @ 0 mls/hr UD IV 02/23/25 22:30 Laboratory Results Laboratory Tests 02/27/25 04:11 Chemistry Test 02/27/25 04:11 Albumin 3.8 g/dL (3.2-4.8) Calcium Level 9.7 mg/dL (8.7-10.4) Total Protein 6.9 g/dL (5.7-8.2) Coagulation Test 02/27/25 04:11 Prothrombin Time 11.4 sec (9.3-11.8) Prothrombin Time INR 1.08 (0.9-1.15) Activated Partial Thromboplast Time 29.6 SEC (24.5-34.5) LFT Test 02/27/25 04:11 Alanine Aminotransferase (ALT) < 9 U/L (7-40) Alkaline Phosphatase 42 U/L (46-116) L Aspartate Amino Transferase (AST) 12 U/L (<34) Total Bilirubin 0.8 mg/dL (0.2-1.0) Urinalysis Test 02/23/25 21:50 Urine Creatinine 133.45 mg/dL (30.0-125.0) H Urine Sodium 30 mmol/L (40-220) L Labs and/or images reviewed: Labs reviewed by me, Image(s) reviewed by me Assessment/Plan Assessment/Plan Cellulitis right lower leg Osteomyelitis right 1st toe: Consult for Dr. Valedz, continue Zosyn and vancomycin Fracture right 3rd metatarsal Acute kidney injury on Chronic kidney disease IIIb likely hemodynamic etiology Hypokalemia Metabolic alkalosis Diabetes mellitus: Insulin sliding scale Hypertension Time spent 56 minutes Patient is full code Awaiting pants closer evaluation Plan discussed with: Patient Date of Service: Feb 27, 2025 Billing Provider: ADARSH WILLIS MD Common Visit Codes: [id number] INP/OBS CARE(HIGH) ADARSH WILLIS MD Feb 27, 2025 09:10
--- NOTE | 2025-02-27 10:35 | DVHPN2 ---
Progress Note Date Seen: Feb 27, 2025 Medical Necessity Reason Pt with a Central, PICC or Fol: No Subjective Patient reports: No new complaints Other Systems: Patient seen and examined by myself today in follow-up Objective vital signs Vital Sign Date Time Temp Pulse Resp B/P (MAP) Pulse Ox O2 Delivery O2 Flow Rate FiO2 02/27/25 05:00 98.2 75 16 120/71 (87) 97 98.2 02/26/25 20:00 Room Air* 0 21 Total Intake and Output 02/26/25 02/26/25 02/27/25 15:00 23:00 07:00 Intake Total 60 ml 300 ml 320 ml Output Total 100 ml 300 ml Balance 60 ml 200 ml 20 ml medications Current Medications Medications Dose Ordered Sig/Bandar Route Start Time Stop Time Status Last Admin Dose Admin Piperacillin Sod/ Tazobactam Sod 100 ml @ 25 mls/hr Q12H IV 02/24/25 06:00 02/27/25 05:42 25 MLS/HR Sodium Chloride 10 ml Q8HR IV 02/23/25 22:00 02/27/25 05:43 10 ML Docusate Sodium 100 mg BIDPRN PRN PO 02/23/25 19:30 Acetaminophen 650 mg Q6HP PRN PO 02/23/25 19:30 Acetaminophen/ Hydrocodone Bitart 1 tab Q4HP PRN PO 02/23/25 19:30 02/25/25 22:00 1 TAB Ondansetron HCl 4 mg Q4HP PRN IV 02/23/25 19:30 Diagnostic Test (Pha) 1 strip ACHS 02/23/25 22:00 02/27/25 06:11 1 STRIP Insulin Human Regular HS SC 02/23/25 22:00 02/26/25 20:50 6 UNITS Insulin Human Regular AC SC 02/24/25 07:00 02/27/25 06:12 3 UNITS Dextrose 50 ml UD PRN IV 02/23/25 20:00 Pantoprazole Sodium 40 mg DAILY IV 02/24/25 10:00 02/27/25 10:05 40 MG Atorvastatin Calcium 10 mg HS PO 02/24/25 22:00 02/26/25 20:49 10 MG Vancomycin HCl 0 ml @ 0 mls/hr UD IV 02/23/25 22:30 Examination: LUNGS:Normal, CVS:Normal, MSK:Normal laboratory and microbiology Laboratory Tests 02/27/25 04:11 Test 02/27/25 04:11 Range/Units Serum Glucose 170 H 74-106 mg/dL Problem List/Assessment/Plan Problem List/Assessment/Plan Acute kidney injury on Chronic kidney disease IIIb likely hemodynamic etiology Hypokalemia, replace Metabolic alkalosis Diabetes mellitus Osteomyelitis right foot Hypertension Recommendations Kidney function is improving Increased urine output KCL replacement Kidney ultrasound reported bilateral echogenic kidney IV antibiotics Insulin sliding scale We will continue to follow up Plan discussed with: Patient Dietary Evaluation Review Comments: 1. Enourage and monitor PO intake to meet at least 75% of his needs. CCHO-60 Renal Standard diet 2. Offfer glucerna PO 240 ml BID as supplement if PO intake <75% 3. Review updated lipid profile d/c lipitor if LDL < 75. Expected Outcomes/Goals: Promote healing through well-managed DM and renal diet. prevent wt loss. QUOC QUINONEZ MD Feb 27, 2025 10:35
--- NOTE | 2025-02-27 15:01 | DVH ---
EXAM: XY CHEST TWO VIEWS ROUTINE CLINICAL HISTORY: Having a procedure TECHNIQUE: Frontal and lateral views of the chest WID: COMPARISON: None FINDINGS: Lines and tubes: None Chest: The heart size and pulmonary vasculature is within normal limits. No pleural effusion, pneumothorax, or consolidation. The osseous structures are grossly intact. Multilevel thoracic spondylosis. IMPRESSION: No acute cardiopulmonary abnormality.
[2025-02-28] VITALS (12 sets, daily range): BP systolic 105–149; BP diastolic 56–89; PULSE 78–98; RESP 12–18; TEMP 97.4–98.4; O2SAT 88–100
[2025-02-28 00:40] LABS: Urine Bacteria None Seen /hpf (None Seen)
[2025-02-28 00:44] LABS: Urine Blood Negative /uL (Negative); Urine Clarity Clear (Clear); Urine Color Light-Yellow (Yellow); Urine Protein, UAD Negative (Negative); Urine Specific Gravity 1.012 (1.001-1.035); Urine Squamous Epithelial Cell FEW /hpf (<5); Urine Urobilinogen Normal (Negative); Urine WBC < 1 /HPF (0-3)
[2025-02-28 06:50] LABS: Basophils # (auto) 0.1 10 ^3/uL (0-0.2); Basophils % (auto) 0.8 % (0.0-2.0); Eosinophils # (auto) 0.3 10 ^3/uL (0-0.8); Eosinophils % (auto) 3.2 % (0.0-7.0); Hemoglobin 11.9 g/dL (13.5-17.5); Lymphocytes # (auto) 1.1 10 ^3/uL (0.4-5.4); Lymphocytes % (auto) 12.5 % (10.0-50.0); Mean Corpuscular Hemoglobin 33.2 pg (28.0-32.0); Mean Corpuscular Volume 92.3 fL (80.0-100.0); Monocytes # (auto) 0.8 10 ^3/uL (0-1.3); Monocytes % (auto) 8.9 % (0.0-12.0); Neutrophils # (auto) 6.4 10 ^3/uL (1.6-8.6); Neutrophils % (auto) 74.6 % (37.0-80.0); Nucleated Red Blood Cells % 0.2 %; Platelet Count (auto) 237 10^3/uL (140-450); Red Blood Cells 3.57 10^6/uL (4.5-5.90); Red Cell Distribution Width 14.1 % (11.8-14.3); White Blood Cell 8.6 10^3/uL (4.4-10.8)
[2025-02-28 07:10] LABS: Albumin 3.8 g/dL (3.2-4.8); Anion Gap 11 (5-15); Aspartate Aminotransferase 11 U/L (<34); BUN/Creatinine Ratio 14.7 (10.0-20.0); Calcium 9.8 mg/dL (8.7-10.4); Carbon Dioxide 27 mmol/L (20-31); Chloride 99 mmol/L (98-107); Sodium 137 mmol/L (136-145); Total Protein 7.1 g/dL (5.7-8.2)
[2025-02-28 07:11] LABS: Bilirubin, Total 0.7 mg/dL (0.2-1.0)
[2025-02-28 07:12] LABS: Alanine Aminotransferase < 9 U/L (7-40); Alkaline Phosphatase 42 U/L (46-116); Blood Urea Nitrogen 28 mg/dL (9-23); Glucose 167 mg/dL (74-106); Potassium 3.5 mmol/L (3.5-5.1)
--- NOTE | 2025-02-28 10:01 | DVHPN2 ---
Progress Note Date Seen: Feb 28, 2025 Medical Necessity Reason Pt with a Central, PICC or Fol: No Subjective Patient reports: No new complaints Other Systems: Patient seen and examined by myself today in follow-up Objective vital signs Vital Sign Date Time Temp Pulse Resp B/P (MAP) Pulse Ox O2 Delivery O2 Flow Rate FiO2 02/28/25 08:30 98.4 84 16 114/65 (81) 97 98.4 02/27/25 20:00 Room Air* 0 21 Total Intake and Output 02/27/25 02/27/25 02/28/25 15:00 23:00 07:00 Intake Total 100 ml 1050 ml 0 ml Output Total 500 ml 400 ml Balance 100 ml 550 ml -400 ml medications Current Medications Medications Dose Ordered Sig/Bandar Route Start Time Stop Time Status Last Admin Dose Admin Piperacillin Sod/ Tazobactam Sod 100 ml @ 25 mls/hr Q12H IV 02/24/25 06:00 02/28/25 05:30 25 MLS/HR Sodium Chloride 10 ml Q8HR IV 02/23/25 22:00 02/28/25 05:30 10 ML Docusate Sodium 100 mg BIDPRN PRN PO 02/23/25 19:30 Acetaminophen 650 mg Q6HP PRN PO 02/23/25 19:30 Acetaminophen/ Hydrocodone Bitart 1 tab Q4HP PRN PO 02/23/25 19:30 02/25/25 22:00 1 TAB Ondansetron HCl 4 mg Q4HP PRN IV 02/23/25 19:30 Diagnostic Test (Pha) 1 strip ACHS 02/23/25 22:00 02/28/25 06:08 1 STRIP Insulin Human Regular HS SC 02/23/25 22:00 02/27/25 21:32 6 UNITS Insulin Human Regular AC SC 02/24/25 07:00 02/28/25 06:10 6 UNITS Dextrose 50 ml UD PRN IV 02/23/25 20:00 Pantoprazole Sodium 40 mg DAILY IV 02/24/25 10:00 02/27/25 10:05 40 MG Atorvastatin Calcium 10 mg HS PO 02/24/25 22:00 02/27/25 21:33 10 MG Vancomycin HCl 0 ml @ 0 mls/hr UD IV 02/23/25 22:30 Examination: LUNGS:Normal, CVS:Normal, MSK:Abnormal laboratory and microbiology Laboratory Tests 02/28/25 06:30 Test 02/28/25 06:30 Range/Units Serum Glucose 167 H 74-106 mg/dL Problem List/Assessment/Plan Problem List/Assessment/Plan Acute kidney injury on Chronic kidney disease IIIb likely hemodynamic etiology Chronic kidney disease stage IIIB follow with Dr. Ponce Hypokalemia, replaced Metabolic alkalosis, resolved Diabetes mellitus Osteomyelitis right foot Hypertension Recommendations Kidney function is improving Increased urine output KCL replacement Kidney ultrasound reported bilateral echogenic kidney IV antibiotics Insulin sliding scale We will continue to follow up Plan discussed with: Patient Dietary Evaluation Review Comments: 1. Enourage and monitor PO intake to meet at least 75% of his needs. CCHO-60 Renal Standard diet 2. Offfer glucerna PO 240 ml BID as supplement if PO intake <75% 3. Review updated lipid profile d/c lipitor if LDL < 75. Expected Outcomes/Goals: Promote healing through well-managed DM and renal diet. prevent wt loss. QUOC QUINONEZ MD Feb 28, 2025 10:01
--- NOTE | 2025-02-28 10:29 | DVHPN2 ---
Reviewed: Care Plan, H&P, Labs, Medications, Previous Orders, Radiology Changes from previous H/P or p: No Changes Objective Vitals Vital Signs Date Time Temp Pulse Resp B/P (MAP) Pulse Ox O2 Delivery O2 Flow Rate FiO2 02/28/25 08:30 98.4 84 16 114/65 (81) 97 98.4 02/27/25 20:00 Room Air* 0 21 Intake/Output Intake and Output 02/28/25 07:00 Intake Total 1150 ml Output Total 900 ml Balance 250 ml Intake Oral 950 ml IV Total 200 ml Output Urine Total 900 ml # Bowel Movements 2 Medications Current Medications Medications Dose Ordered Sig/Bandar Route Start Time Stop Time Status Last Admin Dose Admin Piperacillin Sod/ Tazobactam Sod 100 ml @ 25 mls/hr Q12H IV 02/24/25 06:00 02/28/25 05:30 25 MLS/HR Sodium Chloride 10 ml Q8HR IV 02/23/25 22:00 02/28/25 05:30 10 ML Docusate Sodium 100 mg BIDPRN PRN PO 02/23/25 19:30 Acetaminophen 650 mg Q6HP PRN PO 02/23/25 19:30 Acetaminophen/ Hydrocodone Bitart 1 tab Q4HP PRN PO 02/23/25 19:30 02/25/25 22:00 1 TAB Ondansetron HCl 4 mg Q4HP PRN IV 02/23/25 19:30 Diagnostic Test (Pha) 1 strip ACHS 02/23/25 22:00 02/28/25 06:08 1 STRIP Insulin Human Regular HS SC 02/23/25 22:00 02/27/25 21:32 6 UNITS Insulin Human Regular AC SC 02/24/25 07:00 02/28/25 06:10 6 UNITS Dextrose 50 ml UD PRN IV 02/23/25 20:00 Pantoprazole Sodium 40 mg DAILY IV 02/24/25 10:00 02/28/25 10:04 40 MG Atorvastatin Calcium 10 mg HS PO 02/24/25 22:00 02/27/25 21:33 10 MG Vancomycin HCl 0 ml @ 0 mls/hr UD IV 02/23/25 22:30 Laboratory Results Laboratory Tests 02/28/25 06:30 Chemistry Test 02/28/25 06:30 Albumin 3.8 g/dL (3.2-4.8) Calcium Level 9.8 mg/dL (8.7-10.4) Total Protein 7.1 g/dL (5.7-8.2) LFT Test 02/28/25 06:30 Alanine Aminotransferase (ALT) < 9 U/L (7-40) Alkaline Phosphatase 42 U/L (46-116) L Aspartate Amino Transferase (AST) 11 U/L (<34) Total Bilirubin 0.7 mg/dL (0.2-1.0) Urinalysis Test 02/23/25 21:50 02/28/25 00:20 Urine Creatinine 133.45 mg/dL (30.0-125.0) H Urine Sodium 30 mmol/L (40-220) L Urine Color Light-yellow (Yellow) Urine Clarity Clear (Clear) Urine pH 7.0 (5.0-9.0) Urine Specific [place] 1.012 (1.001-1.035) Urine Protein Negative (Negative) Urine Ketones Negative (Negative) Urine Blood Negative /uL (Negative) Urine Nitrite Negative (Negative) Urine Bilirubin Negative (Negative) Urine Urobilinogen Normal mg/dL (Negative) Urine Leukocyte Esterase Negative /uL (Negative) Urine RBC <1 /hpf (0 - 3) Urine Microscopic WBC < 1 /HPF (0-3) Urine Squamous Epithelial Cells Few /hpf (<5) Urine Bacteria None seen /hpf (None Seen) Urine Glucose 1+ mg/dL (Normal) H Labs and/or images reviewed: Labs reviewed by me, Image(s) reviewed by me Assessment/Plan Assessment/Plan Cellulitis right lower leg Osteomyelitis right 1st toe: Consult for Dr. Valdez appreciated,, patient getting incision and drainage today, continue Zosyn and vancomycin Fracture right 3rd metatarsal Acute kidney injury on Chronic kidney disease IIIb likely hemodynamic etiology, Nephrology consult appreciated Hypokalemia Metabolic alkalosis Diabetes mellitus: Insulin sliding scale Hypertension Time spent 56 minutes Arterial ultrasound rule out peripheral arterial disease ordered Patient is full code Awaiting food handler evaluation Plan discussed with: Patient My Orders Orders - ADARSH WILLIS MD Procedure Category Date Status Time * Wound Consult CONS 02/28/25 Transmitted Date of Service: Feb 28, 2025 Billing Provider: ADARSH WILLIS MD Common Visit Codes: [id number] INP/OBS CARE(HIGH) ADARSH WILLIS MD Feb 28, 2025 10:29
[2025-02-28] MEDS: VANCOMYCIN 1GM/200ML PM 200 ML IV ONE (11:00)
--- NOTE | 2025-02-28 11:44 | DVH ---
BILATERAL Lower Extremity Arterial Duplex Date: 02/28/2025 10:40 AM Clinical History: pain; Rule out peripheral arterial disease Comparison: None Technique: Duplex Doppler evaluation including color Doppler and spectral/pulsed waveform analysis of the lower extremity arteries was performed. Finding: RIGHT: Peak systolic velocities are as follows: APRICOT WASHER 102 cm/s Deep femoral 53 cm/s SFA proximal 71 cm/s SFA mid-portion 62 cm/s SFA distal 211 cm/s Popliteal 49 cm/s Posterior tibial 87 cm/s Dorsalis pedis is not well visualized due to obscuration from bowel gas. The waveforms are monophasic extending from the right mid superficial femoral artery to the right rylee salis pedis artery. LEFT: Peak systolic velocities are as follows: APRICOT WASHER 125 cm/s Deep femoral 45 cm/s SFA proximal 40 cm/s SFA mid-portion 49 cm/s SFA distal 48 cm/s Popliteal 42 cm/s Posterior tibial 50 cm/s Dorsalis pedis 37 cm/s The waveforms are monophasic extending from the left mid superficial femoral artery to the left dorsa lis pedis artery. REFERENCE VALUES, [facility]) vascular Imaging Lab Criteria: Peak systolic velocity ranges (in cm/sec) are as follows: <150 cm/s - <20 % stenosis 150-200 cm/s - 20-49% stenosis 200-300 cm/s - 50-75% stenosis >300 cm/s -> 75% stenosis IMPRESSION: Approximately 50-75% stenosis of the right distal superficial femoral artery. Peripheral vascular dis ease in the bilateral lower extremities as evidenced by monophasic waveforms.
[2025-02-28] MEDS: BUPIVACAINE HCL 50 ML ONE (11:59)
[2025-02-28] MEDS ORDERED: fentaNYL CITRATE 100 MCG/2 ML VL ONE (12:30)
[2025-02-28] MEDS ORDERED: MIDAZOLAM HCL 2MG/2ML 2ml VIAL (1mg/ml) ONE ×2 (12:30→12:42)
[2025-02-28] MEDS ORDERED: LIDOCAINE 2% (LOCAL ANESTH.) PF 5ml SDV ONE (12:31)
[2025-02-28] MEDS ORDERED: METOCLOPRAMIDE HCL 5MG/ml INJ 2ml VIAL ONE (12:31)
[2025-02-28] MEDS ORDERED: PROPOFOL 10 MG/ML 20 ML IV ONE (12:31)
[2025-02-28] MEDS ORDERED: ONDANSETRON HCL 4 MG/2 ML VIAL ONE (12:31)
[2025-02-28] MEDS: BUPIVACAINE 0.5% INJ 50ML VIAL IJ ONE (12:45)
--- NOTE | 2025-02-28 12:53 | DVHINCON2 ---
Date Seen: Feb 28, 2025 Reason for Consultation Right foot wound History of Present Illness 74 y/o M, with PMHx of HTN, DM, HLD, CKD III, and testicular cancer presents to the ED for CC of lower extremity. Patient states, that he has been experiencing right foot pain with associated right great toe pain, swelling, erythema, and discharge x1week. Patient reports, despite having regular wound care symptoms continue to worsen. Patient denies fever, chills, sweats, recent trauma, fall, or injury. No other symptoms or modifying factors present at this time. Past Medical History See H&P Past Surgical History See H&P Family History: Cerebrovascular accident (CVA) G8 MOTHER FH: CABG (coronary artery bypass surgery) G8 FATHER FH: liver disease G8 FATHER Hepatitis C G8 FATHER Allergies: Coded Allergies: NO KNOWN ALLERGIES (Unverified , 06/12/21) Home Meds Reported Medications Tamsulosin Hcl (Tamsulosin Hcl) 0.4 Mg Cap, 0.4 MG PO QPM for 30 Days, MG 02/24/25 Amlodipine Besylate (Amlodipine Besylate) 5 Mg Tab, 1 TAB PO DAILY 02/24/25 Furosemide (Furosemide) 40 Mg Tab, 1 TAB PO DAILY 02/24/25 Aspirin (Aspirin Adult Low Dose) 81 Mg Tab, 1 TAB PO DAILY 02/24/25 Glipizide (Glipizide Er) 2.5 Mg Tab, TAB PO 02/24/25 Carvedilol (Carvedilol) 12.5 Mg Tab, TAB PO 02/24/25 Calcium Carbonate-Cholecalcife (Calcium 500-10 mg-Mcg) 1 Chw Chw, 1 TAB PO BID 02/24/25 Atorvastatin Calcium (ATORVASTATIN CALCIUM) 10 Mg Tab, 10 MG PO DAILY, TAB 06/13/21 Glipizide (Glipizide) 10 Mg Tab, 10 MG PO, TAB 06/13/21 Metformin HCl (Metformin Hydrochloride) 500 Mg/5 Ml Gwendolyn, 500 MG PO, ML 06/13/21 Vital Signs Vital Signs Date Time Temp Pulse Resp B/P (MAP) Pulse Ox O2 Delivery O2 Flow Rate FiO2 02/28/25 12:42 97.4 91 17 141/73 (95) 100 97.4 02/28/25 08:00 Room Air* 0 21 Physical Exam Dermatological: Skin is dry with mild erythema and some maceration around the wound site No gross deformities noted Mild non-pitting edema present bilaterally Right medial hallux with eschar and purulent drainage Vascular: Dorsalis pedis and posterior tibial pulses are 1+ bilaterally Capillary refill is under 2 seconds Skin temperature is warm bilaterally Neurologic: Protective sensation is absent on the plantar forefoot bilaterally Monofilament testing reveals decreased sensation in multiple plantar sites Musculoskeletal: Range of motion at the ankle and MTP joints is within normal limits. Strength is 5/5 in all tested muscle groups. Gait is antalgic due to offloading of the affected limb. Labs/Diagnostic Data Labs Test 02/28/25 06:30 02/28/25 05:35 02/28/25 00:20 02/27/25 04:11 Range/Units White Blood Count 8.6 4.4-10.8 10^3/uL Red Blood Count 3.57 L 4.5-5.90 10^6/uL Hemoglobin 11.9 L 13.5-17.5 g/dL Hematocrit 33.0 L 41.0-53.0 % Mean Corpuscular Volume 92.3 80.0-100.0 fL Mean Corpuscular Hemoglobin 33.2 H 28.0-32.0 pg Mean Corpuscular Hemoglobin Concent 36.0 32.0-36.0 g/dL Red Cell Distribution Width 14.1 11.8-14.3 % Platelet Count 237 140-450 10^3/uL Mean Platelet Volume 7.5 6.9-10.8 fL Neutrophils (%) (Auto) 74.6 37.0-80.0 % Lymphocytes (%) (Auto) 12.5 10.0-50.0 % Monocytes (%) (Auto) 8.9 0.0-12.0 % Eosinophils (%) (Auto) 3.2 0.0-7.0 % Basophils (%) (Auto) 0.8 0.0-2.0 % Neutrophils # (Auto) 6.4 1.6-8.6 10 ^3/uL Lymphocytes # (Auto) 1.1 0.4-5.4 10 ^3/uL Monocytes # (Auto) 0.8 0-1.3 10 ^3/uL Eosinophils # (Auto) 0.3 0-0.8 10 ^3/uL Basophils # (Auto) 0.1 0-0.2 10 ^3/uL Nucleated Red Blood Cells 0.2 % Sodium Level 137 136-145 mmol/L Potassium Level 3.5 3.5-5.1 mmol/L Chloride Level 99 98-107 mmol/L Carbon Dioxide Level 27 20-31 mmol/L Anion Gap 11 5-15 Blood Urea Nitrogen 28 H 9-23 mg/dL Creatinine 1.90 H 0.700-1.30 mg/dL Glomerular Filtration Rate Calc 37 >90 mL/min BUN/Creatinine Ratio 14.7 10.0-20.0 Serum Glucose 167 H 74-106 mg/dL Calcium Level 9.8 8.7-10.4 mg/dL Total Bilirubin 0.7 0.2-1.0 mg/dL Aspartate Amino Transferase (AST) 11 <34 U/L Alanine Aminotransferase (ALT) < 9 7-40 U/L Alkaline Phosphatase 42 L 46-116 U/L Total Protein 7.1 5.7-8.2 g/dL Albumin 3.8 3.2-4.8 g/dL Random Vancomycin Level 13.0 H 5-10 ug/mL POC Glucose 173 H 70-106 mg/dl Urine Color Light-yellow Yellow Urine Clarity Clear Clear Urine pH 7.0 5.0-9.0 Urine Specific [place] 1.012 1.001-1.035 Urine Protein Negative Negative Urine Ketones Negative Negative Urine Blood Negative Negative /uL Urine Nitrite Negative Negative Urine Bilirubin Negative Negative Urine Urobilinogen Normal Negative mg/dL Urine Leukocyte Esterase Negative Negative /uL Urine RBC <1 0 - 3 /hpf Urine Microscopic WBC < 1 0-3 /HPF Urine Squamous Epithelial Cells Few <5 /hpf Urine Bacteria None seen None Seen /hpf Urine Glucose 1+ H Normal mg/dL Prothrombin Time 11.4 9.3-11.8 sec Prothrombin Time INR 1.08 0.9-1.15 Activated Partial Thromboplast Time 29.6 24.5-34.5 SEC Test 02/23/25 21:50 02/23/25 13:48 Range/Units Urine Creatinine 133.45 H 30.0-125.0 mg/dL Urine Sodium 30 L 40-220 mmol/L Erythrocyte Sedimentation Rate 93 H 0-20 mm/hr Problems(with codes): (1) Hyperkalemia (2) Azotemia (3) Urinary retention (4) Generalized weakness (5) Hypokalemia (6) Foot osteomyelitis, right Plan/Recommendation ASSESSMENT: Patient is a 74 year old seen on the floor for a worsening ulcer PLAN: - The patients chart was reviewed, clinical findings were discussed with the patient, the etiologies of the conditions were discussed in detail, and a treatment plan was agreed to at this time, with both oral and written instructions provided. - reviewed advanced imaging - discussed plan is to perform an incision and drainage - patient been NPO since midnight - take him to the OR today - we will get cultures in the OR - can weightbear as tolerated in postoperative shoe All questions were answered and concerns addressed to the patient's satisfaction. The patient was given the phone number to the clinic and was told how to make contact with the clinic should any concerns or questions arise. Patient understands that if any questions or concerns arise prior to the next appointment, we should be contacted immediately. FOLLOW-UP: Continue to follow while inpatient Plan discussed with: Patient Date of Service: Feb 28, 2025 Billing Provider: MENDOZA LEWIS DPM Common Visit Codes: CONSULT ONLY Consultation Codes: [id number] CONSULT <80MIN MENDOZA LEWIS DPM Feb 28, 2025 12:53
--- NOTE | 2025-02-28 12:55 | DVHOP2 ---
Operative Report - 2 Report Details Date: 02/28/25 Preop Diagnosis: 1. Right foot osteomyelitis 2. Right foot abscess 3. Right foot cellulitis Postop Diagnosis: Same as preop Surgeon: Mendoza Lewis MD Anesthesiologist: See anesthesia Anesthesia: Mac Consent: The patient was informed of the risks and benefits of the procedure. These include but are not limited to complications of anesthesia, postoperative infection, incomplete relief of symptoms, recurrence of symptoms, damage to blood vessels, nerves and tendons, deep venous thrombosis, pulmonary embolism and possible need for repeat surgery in the future. Complications: None Estimated Blood Loss: Minimal Fluids: See anesthesia Findings: Consistent with diagnosis Indications for Surgery: Worsening right foot wound Name of Procedure Performed 1. Right foot I&D to bone (83124) 2. Right hallux bone biopsy () Procedure Details Procedure Details: PRE-PROCEDURE INFORMATION: In the pre-op holding area, the extremity to be operated on was clearly marked and the patient verified correct laterality of the marking. The patient was transferred to the OR table and placed in a supine position. A timeout was performed in which identification of the correct patient, procedure, location, and materials was done. The right foot and leg were prepped and draped in normal sterile fashion. DESCRIPTION OF PROCEDURE: Attention was directed to the right where area of fluctuance was noted. An incision was made over this area and was deepened through blunt dissection. The incision was deepened to the level of abscess and bone. Care was taken to the dissection to avoid any neurovascular and tendinous structures. The incision was deepened to the bone, and the abscess appeared to be purulent fluid consistent with pus. The cortices of the bone was then paul toño with rongeur an all necrotic tissue. After the abscess was drained, the area was irrigated with 3 L normal saline using cysto tubing. Deep cultures were then obtained from the wound. The area was then inspected and any areas of tracking, especially along the tendons were also drained. A bone biopsy was then taken of the right hallux which was deepened to the muscle belly and tendons. The bone was then sent to pathology to determine the extent of osteomyelitis. The wound was packed with Betadine-soaked gauze and we will need to be closed at a later date. POSTOPERATIVE INFORMATION: The patient tolerated the above noted procedure and anesthesia well and was transferred to the PACU with vital signs stable, and vascular status intact with capillary refill intact to all digits. Deep cultures were taken. Bone biopsy was taken. Patient will likely need 6 weeks IV antibiotics. We will see how the toe does over the next 24-48 hours. Specimen: Right hallux bone biopsy Condition Good Disposition Still a Patient MENDOZA LEWIS DPM Feb 28, 2025 12:55
[2025-03-01] VITALS (8 sets, daily range): BP systolic 109–134; BP diastolic 55–77; PULSE 76–103; RESP 17–19; TEMP 97.1–98; O2SAT 94–99
--- NOTE | 2025-03-01 10:02 | DVHPN2 ---
Reviewed: Care Plan, H&P, Labs, Medications, Previous Orders, Radiology Changes from previous H/P or p: No Changes Objective Vitals Vital Signs Date Time Temp Pulse Resp B/P (MAP) Pulse Ox O2 Delivery O2 Flow Rate FiO2 03/01/25 05:00 97.8 77 18 124/59 (80) 94 97.8 02/28/25 20:00 Room Air* 0 21 Intake/Output Intake and Output 03/01/25 06:59 Intake Total 768 ml Output Total 495 ml Balance 273 ml Intake Oral 358 ml IV Total 410 ml Output Urine Total 495 ml # Bowel Movements 1 Medications Current Medications Medications Dose Ordered Sig/Bandar Route Start Time Stop Time Status Last Admin Dose Admin Piperacillin Sod/ Tazobactam Sod 100 ml @ 25 mls/hr Q12H IV 02/24/25 06:00 03/01/25 06:00 25 MLS/HR Sodium Chloride 10 ml Q8HR IV 02/23/25 22:00 03/01/25 06:00 10 ML Docusate Sodium 100 mg BIDPRN PRN PO 02/23/25 19:30 Acetaminophen 650 mg Q6HP PRN PO 02/23/25 19:30 Acetaminophen/ Hydrocodone Bitart 1 tab Q4HP PRN PO 02/23/25 19:30 02/25/25 22:00 1 TAB Ondansetron HCl 4 mg Q4HP PRN IV 02/23/25 19:30 Diagnostic Test (Pha) 1 strip ACHS 02/23/25 22:00 03/01/25 06:24 1 STRIP Insulin Human Regular HS SC 02/23/25 22:00 02/28/25 21:55 8 UNITS Insulin Human Regular AC SC 02/24/25 07:00 02/28/25 17:00 9 UNITS Dextrose 50 ml UD PRN IV 02/23/25 20:00 Pantoprazole Sodium 40 mg DAILY IV 02/24/25 10:00 02/28/25 10:04 40 MG Atorvastatin Calcium 10 mg HS PO 02/24/25 22:00 02/28/25 21:57 10 MG Vancomycin HCl 0 ml @ 0 mls/hr UD IV 02/23/25 22:30 Laboratory Results Laboratory Tests 02/28/25 06:30 03/01/25 06:57 Urinalysis Test 02/23/25 21:50 02/28/25 00:20 Urine Creatinine 133.45 mg/dL (30.0-125.0) H Urine Sodium 30 mmol/L (40-220) L Urine Color Light-yellow (Yellow) Urine Clarity Clear (Clear) Urine pH 7.0 (5.0-9.0) Urine Specific [place] 1.012 (1.001-1.035) Urine Protein Negative (Negative) Urine Ketones Negative (Negative) Urine Blood Negative /uL (Negative) Urine Nitrite Negative (Negative) Urine Bilirubin Negative (Negative) Urine Urobilinogen Normal mg/dL (Negative) Urine Leukocyte Esterase Negative /uL (Negative) Urine RBC <1 /hpf (0 - 3) Urine Microscopic WBC < 1 /HPF (0-3) Urine Squamous Epithelial Cells Few /hpf (<5) Urine Bacteria None seen /hpf (None Seen) Urine Glucose 1+ mg/dL (Normal) H Labs and/or images reviewed: Labs reviewed by me, Image(s) reviewed by me Assessment/Plan Assessment/Plan Cellulitis right lower leg Osteomyelitis right 1st toe: Consult for Dr. Valdez appreciated,, status post right foot I&D to bone and right hallux bone biopsy by mailroom courier Dr. Valdez on 02-28-25 continue Zosyn and vancomycin Fracture right 3rd metatarsal Acute kidney injury on Chronic kidney disease IIIb likely hemodynamic etiology, Nephrology consult appreciated Hypokalemia Metabolic alkalosis Diabetes mellitus: Insulin sliding scale Hypertension Time spent 56 minutes PAD: 50-75 % stenosis of right superficial femoral artery, patient says he already has an appointment with his vascular surgeon through [facility] for outpatient peripheral angiography. Patient is full code Awaiting mailroom courier evaluation Plan discussed with: Patient My Orders Orders - ADARSH WILLIS MD Procedure Category Date Status Time Bilat Low Ext Art US 02/28/25 Resulted Duplex 10:26 Date of Service: Mar 01, 2025 Billing Provider: ADARSH WILLIS MD Common Visit Codes: [id number] INP/OBS CARE(HIGH) ADARSH WILLIS MD Mar 01, 2025 10:02
--- NOTE | 2025-03-01 10:53 | DVHPN2 ---
Progress Note Date Seen: Mar 01, 2025 Medical Necessity Reason Pt with a Central, PICC or Fol: No Subjective Patient reports: No new complaints Other Systems: Patient seen and examined by myself today in follow-up Objective vital signs Vital Sign Date Time Temp Pulse Resp B/P (MAP) Pulse Ox O2 Delivery O2 Flow Rate FiO2 03/01/25 05:00 97.8 77 18 124/59 (80) 94 97.8 02/28/25 20:00 Room Air* 0 21 Total Intake and Output 02/28/25 02/28/25 03/01/25 15:00 23:00 07:00 Intake Total 310 ml 218 ml 265 ml Output Total 275 ml 220 ml Balance 310 ml -57 ml 45 ml medications Current Medications Medications Dose Ordered Sig/Bandar Route Start Time Stop Time Status Last Admin Dose Admin Piperacillin Sod/ Tazobactam Sod 100 ml @ 25 mls/hr Q12H IV 02/24/25 06:00 03/01/25 06:00 25 MLS/HR Sodium Chloride 10 ml Q8HR IV 02/23/25 22:00 03/01/25 06:00 10 ML Docusate Sodium 100 mg BIDPRN PRN PO 02/23/25 19:30 Acetaminophen 650 mg Q6HP PRN PO 02/23/25 19:30 Acetaminophen/ Hydrocodone Bitart 1 tab Q4HP PRN PO 02/23/25 19:30 02/25/25 22:00 1 TAB Ondansetron HCl 4 mg Q4HP PRN IV 02/23/25 19:30 Diagnostic Test (Pha) 1 strip ACHS 02/23/25 22:00 03/01/25 06:24 1 STRIP Insulin Human Regular HS SC 02/23/25 22:00 02/28/25 21:55 8 UNITS Insulin Human Regular AC SC 02/24/25 07:00 02/28/25 17:00 9 UNITS Dextrose 50 ml UD PRN IV 02/23/25 20:00 Pantoprazole Sodium 40 mg DAILY IV 02/24/25 10:00 02/28/25 10:04 40 MG Atorvastatin Calcium 10 mg HS PO 02/24/25 22:00 02/28/25 21:57 10 MG Vancomycin HCl 0 ml @ 0 mls/hr UD IV 02/23/25 22:30 Examination: LUNGS:Normal, CVS:Normal, MSK:Normal laboratory and microbiology Laboratory Tests 03/01/25 06:57 02/28/25 06:30 Test 02/28/25 06:30 Range/Units Serum Glucose 167 H 74-106 mg/dL Problem List/Assessment/Plan Problem List/Assessment/Plan Acute kidney injury on Chronic kidney disease IIIb likely hemodynamic etiology Chronic kidney disease stage IIIB follow with Dr. Ponce Hypokalemia, replaced Metabolic alkalosis, resolved Diabetes mellitus Osteomyelitis right foot Hypertension Recommendations Kidney function is improving Increased urine output KCL replacement Kidney ultrasound reported bilateral echogenic kidney IV antibiotics Insulin sliding scale We will continue to follow up Plan discussed with: Patient Dietary Evaluation Review Comments: 1. Enourage and monitor PO intake to meet at least 75% of his needs. CCHO-60 Renal Standard diet 2. Offfer glucerna PO 240 ml BID as supplement if PO intake <75% 3. Review updated lipid profile d/c lipitor if LDL < 75. Expected Outcomes/Goals: Promote healing through well-managed DM and renal diet. prevent wt loss. QUOC QUINONEZ MD Mar 01, 2025 10:53
--- NOTE | 2025-03-01 15:06 | DVHPN2 ---
Subjective 74 y/o M, with PMHx of HTN, DM, HLD, CKD III, and testicular cancer presents to the ED for CC of lower extremity. Patient states, that he has been experiencing right foot pain with associated right great toe pain, swelling, erythema, and discharge x1week. Patient reports, despite having regular wound care symptoms continue to worsen. Patient denies fever, chills, sweats, recent trauma, fall, or injury. No other symptoms or modifying factors present at this time. Reviewed: Care Plan, H&P, Labs, Medications, Previous Orders, Radiology Changes from previous H/P or p: No Changes Objective Vitals Vital Signs Date Time Temp Pulse Resp B/P (MAP) Pulse Ox O2 Delivery O2 Flow Rate FiO2 03/01/25 13:00 98.0 93 17 129/77 (94) 97 98.0 02/28/25 20:00 Room Air* 0 21 Intake/Output Intake and Output 03/01/25 07:00 Intake Total 793 ml Output Total 495 ml Balance 298 ml Intake Oral 358 ml IV Total 435 ml Output Urine Total 495 ml # Bowel Movements 1 Exam Dermatological: Skin is dry with mild erythema and some maceration around the wound site No gross deformities noted Mild non-pitting edema present bilaterally Right hallux medial ulcer with exposed bone Vascular: Dorsalis pedis and posterior tibial pulses are 1+ bilaterally Capillary refill is under 2 seconds Skin temperature is warm bilaterally Neurologic: Protective sensation is absent on the plantar forefoot bilaterally Monofilament testing reveals decreased sensation in multiple plantar sites Musculoskeletal: Range of motion at the ankle and MTP joints is within normal limits. Strength is 5/5 in all tested muscle groups. Gait is antalgic due to offloading of the affected limb. Medications Current Medications Medications Dose Ordered Sig/Bandar Route Start Time Stop Time Status Last Admin Dose Admin Piperacillin Sod/ Tazobactam Sod 100 ml @ 25 mls/hr Q12H IV 02/24/25 06:00 03/01/25 06:00 25 MLS/HR Sodium Chloride 10 ml Q8HR IV 02/23/25 22:00 03/01/25 10:57 10 ML Docusate Sodium 100 mg BIDPRN PRN PO 02/23/25 19:30 Acetaminophen 650 mg Q6HP PRN PO 02/23/25 19:30 Acetaminophen/ Hydrocodone Bitart 1 tab Q4HP PRN PO 02/23/25 19:30 02/25/25 22:00 1 TAB Ondansetron HCl 4 mg Q4HP PRN IV 02/23/25 19:30 Diagnostic Test (Pha) 1 strip ACHS 02/23/25 22:00 03/01/25 10:50 1 STRIP Insulin Human Regular HS SC 02/23/25 22:00 02/28/25 21:55 8 UNITS Insulin Human Regular AC SC 02/24/25 07:00 03/01/25 10:55 9 UNITS Dextrose 50 ml UD PRN IV 02/23/25 20:00 Pantoprazole Sodium 40 mg DAILY IV 02/24/25 10:00 03/01/25 10:41 40 MG Atorvastatin Calcium 10 mg HS PO 02/24/25 22:00 02/28/25 21:57 10 MG Vancomycin HCl 0 ml @ 0 mls/hr UD IV 02/23/25 22:30 Laboratory Results Laboratory Tests 02/28/25 06:30 03/01/25 06:57 HgA1c, TSH Test 03/01/25 06:57 Hemoglobin A1c 6.8 % A1C (<5.7) H Urinalysis Test 02/23/25 21:50 02/28/25 00:20 Urine Creatinine 133.45 mg/dL (30.0-125.0) H Urine Sodium 30 mmol/L (40-220) L Urine Color Light-yellow (Yellow) Urine Clarity Clear (Clear) Urine pH 7.0 (5.0-9.0) Urine Specific [place] 1.012 (1.001-1.035) Urine Protein Negative (Negative) Urine Ketones Negative (Negative) Urine Blood Negative /uL (Negative) Urine Nitrite Negative (Negative) Urine Bilirubin Negative (Negative) Urine Urobilinogen Normal mg/dL (Negative) Urine Leukocyte Esterase Negative /uL (Negative) Urine RBC <1 /hpf (0 - 3) Urine Microscopic WBC < 1 /HPF (0-3) Urine Squamous Epithelial Cells Few /hpf (<5) Urine Bacteria None seen /hpf (None Seen) Urine Glucose 1+ mg/dL (Normal) H Microbiology Microbiology Date/Time Source Procedure Growth Status 02/28/25 13:03 Foot Right Gram Stain - Final Resulted 02/28/25 13:03 Foot Right Anaerobic Culture - Preliminary Resulted 02/28/25 13:03 Foot Right Aerobic Culture - Preliminary Resulted Assessment/Plan Assessment/Plan ASSESSMENT: Patient is a 74 year old seen on the floor follow up s/p foot I&D PLAN: - The patients chart was reviewed, clinical findings were discussed with the patient, the etiologies of the conditions were discussed in detail, and a treatment plan was agreed to at this time, with both oral and written instructions provided. - reviewed advanced imaging - reviewed all of the labs and pathology - discussed plan is to perform a subsequent incision and drainage - patient will be NPO at midnight - take him to the OR tomorrow - it was determined that multiple I&Ds will be necessary to save the limb - evaluted patients both feet and there is excessive dryness and onychomycosis that patient would benefit from routine foot care as an outpatient - can weightbear as tolerated in postoperative shoe All questions were answered and concerns addressed to the patient's satisfaction. The patient was given the phone number to the clinic and was told how to make contact with the clinic should any concerns or questions arise. Patient understands that if any questions or concerns arise prior to the next appointment, we should be contacted immediately. FOLLOW-UP: Continue to follow while inpatient Plan discussed with: Patient Problem List: (1) Hypokalemia (2) Foot osteomyelitis, right (3) Hyperkalemia (4) Azotemia (5) Urinary retention (6) Generalized weakness Date of Service: Mar 01, 2025 Billing Provider: MENDOZA LEWIS DPM Common Visit Codes: [id number] INP/OBS CARE(HIGH) MENDOZA LEWIS DPM Mar 01, 2025 15:06
--- NOTE | 2025-03-01 16:08 | DVHCONRES ---
Date Seen: Mar 01, 2025 Resident Creating Document: REGULO MCWILLIAMS RESIDENT Referring Physician Stevo Reason for Consultation Osteomyelitis of the right great toe History of Present Illness This is a 74-year-old male with past medical history of hypertension, type 2 d iabetes mellitus, dyslipidemia, CKD stage IIIB, testicular cancer (seminoma) in 1993 in the left side which completed radiation after surgery. The patient presented to the ED with chief complaint of right lower extremity pain at the level of the foot. Patient reports right foot pain specifically at the right great toe associated with swelling, erythema and discharge for the past week before coming to the ED but has been going on for 1 month. patient states that he used to do regular wound care but symptoms started to worsen. The patient denied upon admission fever, chills, sweats, recent trauma, or any other associated symptoms. Upon admission, initial labs showed we performed grossly unremarkable CBC and CMP except for elevated creatinine and BUN. CT of the right foot showed no fracture or dislocation but did show soft tissue emphysema and ulceration along medial aspect of the 1st digit. There was also erosive changes of the medial aspect of the base of the 1st distal phalanx concerning for osteomyelitis. Afterwards, MRI of the right foot was performed which showed soft tissue inflammatory changes at the great toe with no fluid collection or abscess. These findings were consistent with osteomyelitis of distal phalanx of the great toe and there was also subchondral fracture of the 3rd metatarsal head with a associated marrow edema and mild cortical deformity. Infectious Disease was consulted for osteomyelitis of the right great toe. The patient was already taken to the OR by sap portal consultant who performed incision and drainage yesterday with biopsy for cultures which are still pending. Patient is currently on IV antibiotics vancomycin and Zosyn. Past Medical History hypertension, type 2 diabetes mellitus, dyslipidemia, CKD stage IIIB, testicular cancer (seminoma) in 1993 in the left side which completed radiation after surgery Past Surgical History Left orchiectomy due to testicular cancer in 1983 followed by radiation. Family History: Cerebrovascular accident (CVA) G8 MOTHER FH: CABG (coronary artery bypass surgery) G8 FATHER FH: liver disease G8 FATHER Hepatitis C G8 FATHER Family History Noncontributory Social History Denies smoking, ingesting alcohol or any illicit drugs. Allergies: Coded Allergies: NO KNOWN ALLERGIES (Unverified , 06/12/21) Home Meds Reported Medications Tamsulosin Hcl (Tamsulosin Hcl) 0.4 Mg Cap, 0.4 MG PO QPM for 30 Days, MG 02/24/25 Amlodipine Besylate (Amlodipine Besylate) 5 Mg Tab, 1 TAB PO DAILY 02/24/25 Furosemide (Furosemide) 40 Mg Tab, 1 TAB PO DAILY 02/24/25 Aspirin (Aspirin Adult Low Dose) 81 Mg Tab, 1 TAB PO DAILY 02/24/25 Glipizide (Glipizide Er) 2.5 Mg Tab, TAB PO 02/24/25 Carvedilol (Carvedilol) 12.5 Mg Tab, TAB PO 02/24/25 Calcium Carbonate-Cholecalcife (Calcium 500-10 mg-Mcg) 1 Chw Chw, 1 TAB PO BID 02/24/25 Atorvastatin Calcium (ATORVASTATIN CALCIUM) 10 Mg Tab, 10 MG PO DAILY, TAB 06/13/21 Glipizide (Glipizide) 10 Mg Tab, 10 MG PO, TAB 06/13/21 Metformin HCl (Metformin Hydrochloride) 500 Mg/5 Ml Gwendolyn, 500 MG PO, ML 06/13/21 Review of Systems ROS Constitutional: Denies weight loss, fever and chills. HEENT: Denies changes in vision and hearing. Respiratory: Denies shortness of breath and cough Cardiovascular: Denies chest discomfort or palpitations GI: Denies abdominal pain, nausea, vomiting and diarrhea. : Denies dysuria and urinary frequency. Musculoskeletal: Denies myalgias and joint pain Skin: Denies rash and pruritus. Neurological: Denies dizziness, headache, vision or hearing problems Vital Signs Vital Signs Date Time Temp Pulse Resp B/P (MAP) Pulse Ox O2 Delivery O2 Flow Rate FiO2 03/01/25 13:00 98.0 93 17 129/77 (94) 97 98.0 02/28/25 20:00 Room Air* 0 21 Physical Exam Physical Examination General: Patient alert and oriented in person, place and time. Patient following commands. HEENT: Normocephalic, atraumatic, moist mucous membranes Respiratory/pulmonary: Clear lungs bilaterally, no associated crackles or wheezes. Cardiovascular: Normal heart sounds S1 and S2 with no associated murmurs Abdomen: Abdomen nondistended, there is no pain to palpation in any of the abdominal quadrants, no palpable masses. Extremities: Right foot was wrapped with clean gauze and bandage which will be replaced by surgeon, there is no serosanguineous fluid soaking the gauze at this time. There is no peripheral edema present at the lower extremities. Skin: No rashes or pruritus, there is no sacral edema present at this time. Neurological: Intact cranial nerves with no focal neurologic deficits Labs/Diagnostic Data Labs Test 03/01/25 10:49 03/01/25 06:57 02/28/25 06:30 02/28/25 00:20 Range/Units POC Glucose 296 H 70-106 mg/dl Creatinine 1.75 H 0.700-1.30 mg/dL Glomerular Filtration Rate Calc 40 >90 mL/min Hemoglobin A1c 6.8 H <5.7 % A1C Random Vancomycin Level 18.3 H 5-10 ug/mL White Blood Count 8.6 4.4-10.8 10^3/uL Red Blood Count 3.57 L 4.5-5.90 10^6/uL Hemoglobin 11.9 L 13.5-17.5 g/dL Hematocrit 33.0 L 41.0-53.0 % Mean Corpuscular Volume 92.3 80.0-100.0 fL Mean Corpuscular Hemoglobin 33.2 H 28.0-32.0 pg Mean Corpuscular Hemoglobin Concent 36.0 32.0-36.0 g/dL Red Cell Distribution Width 14.1 11.8-14.3 % Platelet Count 237 140-450 10^3/uL Mean Platelet Volume 7.5 6.9-10.8 fL Neutrophils (%) (Auto) 74.6 37.0-80.0 % Lymphocytes (%) (Auto) 12.5 10.0-50.0 % Monocytes (%) (Auto) 8.9 0.0-12.0 % Eosinophils (%) (Auto) 3.2 0.0-7.0 % Basophils (%) (Auto) 0.8 0.0-2.0 % Neutrophils # (Auto) 6.4 1.6-8.6 10 ^3/uL Lymphocytes # (Auto) 1.1 0.4-5.4 10 ^3/uL Monocytes # (Auto) 0.8 0-1.3 10 ^3/uL Eosinophils # (Auto) 0.3 0-0.8 10 ^3/uL Basophils # (Auto) 0.1 0-0.2 10 ^3/uL Nucleated Red Blood Cells 0.2 % Sodium Level 137 136-145 mmol/L Potassium Level 3.5 3.5-5.1 mmol/L Chloride Level 99 98-107 mmol/L Carbon Dioxide Level 27 20-31 mmol/L Anion Gap 11 5-15 Blood Urea Nitrogen 28 H 9-23 mg/dL BUN/Creatinine Ratio 14.7 10.0-20.0 Serum Glucose 167 H 74-106 mg/dL Calcium Level 9.8 8.7-10.4 mg/dL Total Bilirubin 0.7 0.2-1.0 mg/dL Aspartate Amino Transferase (AST) 11 <34 U/L Alanine Aminotransferase (ALT) < 9 7-40 U/L Alkaline Phosphatase 42 L 46-116 U/L Total Protein 7.1 5.7-8.2 g/dL Albumin 3.8 3.2-4.8 g/dL Urine Color Light-yellow Yellow Urine Clarity Clear Clear Urine pH 7.0 5.0-9.0 Urine Specific [place] 1.012 1.001-1.035 Urine Protein Negative Negative Urine Ketones Negative Negative Urine Blood Negative Negative /uL Urine Nitrite Negative Negative Urine Bilirubin Negative Negative Urine Urobilinogen Normal Negative mg/dL Urine Leukocyte Esterase Negative Negative /uL Urine RBC <1 0 - 3 /hpf Urine Microscopic WBC < 1 0-3 /HPF Urine Squamous Epithelial Cells Few <5 /hpf Urine Bacteria None seen None Seen /hpf Urine Glucose 1+ H Normal mg/dL Test 02/27/25 04:11 02/23/25 21:50 02/23/25 13:48 Range/Units Prothrombin Time 11.4 9.3-11.8 sec Prothrombin Time INR 1.08 0.9-1.15 Activated Partial Thromboplast Time 29.6 24.5-34.5 SEC Urine Creatinine 133.45 H 30.0-125.0 mg/dL Urine Sodium 30 L 40-220 mmol/L Erythrocyte Sedimentation Rate 93 H 0-20 mm/hr Microbiology Date/Time Source Procedure Growth Status 02/28/25 13:03 Foot Right Gram Stain - Final Resulted 02/28/25 13:03 Foot Right Anaerobic Culture - Preliminary Resulted 02/28/25 13:03 Foot Right Aerobic Culture - Preliminary Resulted Assessment Assessment/plan Right great toe osteomyelitis Right lower extremity cellulitis with osteomyelitis of the right great toe Severe Peripheral artery disease Type 2 diabetes mellitus Primary hypertension Dyslipidemia CKD stage IIIB History of left testicular cancer, status post left orchiectomy 1993 Plan -CT scan of the right foot showed soft tissue emphysema and ulceration along the medial aspect of the 1st digit with erosive changes at the medial aspect of the base of the 1st distal phalanx concerning for osteomyelitis. -MRI of the right foot showed soft tissue inflammatory changes at the great toe with no fluid collection or abscess. There were changes suggesting osteomyelitis of the distal phalanx of the great toe. There was also subchondral fracture of the 3rd metatarsal head with a associated marrow edema and mild cortical deformity. -sap portal consultant on board, took patient to OR for incision and drainage yesterday and bone biopsy which was sent to pathology for cultures -continue IV vancomycin and Zosyn until cultures are back. -patient will be scheduled for 2nd incision and drainage with closure possibly tomorrow -Consult vascular surgeon for severe PAD and possible need of revascularization Goals of care discussed with the patient at bedside for >35min, FULL CODE Plan discussed with Dr. Colon Plan discussed with: Patient REGULO MCWILLIAMS RESIDENT Mar 01, 2025 16:07
[2025-03-02] VITALS (8 sets, daily range): BP systolic 112–129; BP diastolic 54–96; PULSE 73–105; RESP 18–20; TEMP 97.6–98.5; O2SAT 95–100
--- NOTE | 2025-03-02 08:38 | DVHPN2 ---
Reviewed: Care Plan, H&P, Labs, Medications, Previous Orders, Radiology Changes from previous H/P or p: No Changes Objective Vitals Vital Signs Date Time Temp Pulse Resp B/P (MAP) Pulse Ox O2 Delivery O2 Flow Rate FiO2 03/02/25 05:00 98.2 73 19 116/54 (74) 95 98.2 03/01/25 20:00 Room Air* 0 21 Intake/Output Intake and Output 03/02/25 07:00 Intake Total 640 ml Output Total 1300 ml Balance -660 ml Intake Oral 605 ml IV Total 35 ml Output Urine Total 1300 ml # Bowel Movements 1 Medications Current Medications Medications Dose Ordered Sig/Bandar Route Start Time Stop Time Status Last Admin Dose Admin Piperacillin Sod/ Tazobactam Sod 100 ml @ 25 mls/hr Q12H IV 02/24/25 06:00 03/02/25 05:38 25 MLS/HR Sodium Chloride 10 ml Q8HR IV 02/23/25 22:00 03/02/25 05:38 10 ML Docusate Sodium 100 mg BIDPRN PRN PO 02/23/25 19:30 Acetaminophen 650 mg Q6HP PRN PO 02/23/25 19:30 Acetaminophen/ Hydrocodone Bitart 1 tab Q4HP PRN PO 02/23/25 19:30 02/25/25 22:00 1 TAB Ondansetron HCl 4 mg Q4HP PRN IV 02/23/25 19:30 Diagnostic Test (Pha) 1 strip ACHS 02/23/25 22:00 03/02/25 06:19 1 STRIP Insulin Human Regular HS SC 02/23/25 22:00 03/01/25 22:04 8 UNITS Insulin Human Regular AC SC 02/24/25 07:00 03/02/25 06:20 3 UNITS Dextrose 50 ml UD PRN IV 02/23/25 20:00 Pantoprazole Sodium 40 mg DAILY IV 02/24/25 10:00 03/01/25 10:41 40 MG Atorvastatin Calcium 10 mg HS PO 02/24/25 22:00 03/01/25 22:04 10 MG Vancomycin HCl 0 ml @ 0 mls/hr UD IV 02/23/25 22:30 Laboratory Results Laboratory Tests 02/28/25 06:30 03/01/25 06:57 Urinalysis Test 02/23/25 21:50 02/28/25 00:20 Urine Creatinine 133.45 mg/dL (30.0-125.0) H Urine Sodium 30 mmol/L (40-220) L Urine Color Light-yellow (Yellow) Urine Clarity Clear (Clear) Urine pH 7.0 (5.0-9.0) Urine Specific [place] 1.012 (1.001-1.035) Urine Protein Negative (Negative) Urine Ketones Negative (Negative) Urine Blood Negative /uL (Negative) Urine Nitrite Negative (Negative) Urine Bilirubin Negative (Negative) Urine Urobilinogen Normal mg/dL (Negative) Urine Leukocyte Esterase Negative /uL (Negative) Urine RBC <1 /hpf (0 - 3) Urine Microscopic WBC < 1 /HPF (0-3) Urine Squamous Epithelial Cells Few /hpf (<5) Urine Bacteria None seen /hpf (None Seen) Urine Glucose 1+ mg/dL (Normal) H Microbiology Microbiology Date/Time Source Procedure Growth Status 02/28/25 13:03 Foot Right Gram Stain - Final Resulted 02/28/25 13:03 Foot Right Anaerobic Culture - Preliminary Resulted 02/28/25 13:03 Foot Right Aerobic Culture - Preliminary Resulted Labs and/or images reviewed: Labs reviewed by me, Image(s) reviewed by me Assessment/Plan Assessment/Plan Cellulitis right lower leg Osteomyelitis right 1st toe: Consult for Dr. Valdez appreciated,, status post right foot I&D to bone and right hallux bone biopsy by melter clerk Dr. Valdez on 02-28-25, continue Zosyn and vancomycin, ID consult by Dr. Ross Colon appreciated, patient is getting closure of the wound today by the melter clerk, deep wound cultures came negative Fracture right 3rd metatarsal Acute kidney injury on Chronic kidney disease IIIb likely hemodynamic etiology, Nephrology consult appreciated Hypokalemia Metabolic alkalosis Diabetes mellitus: Insulin sliding scale Hypertension Time spent 56 minutes PAD: 50-75 % stenosis of right superficial femoral artery, patient says he already has an appointment with his vascular surgeon through [facility] for outpatient peripheral angiography. Patient is full code Awaiting melter clerk evaluation Plan discussed with: Patient My Orders Orders - ADARSH WILLIS MD Procedure Category Date Status Time * Infectious [place]- CONS 03/01/25 Transmitted Rosalie Colon 10:03 * Dietary Consult CONS 03/01/25 Transmitted 14:31 Date of Service: Mar 02, 2025 Billing Provider: ADARSH WILLIS MD Common Visit Codes: [id number] INP/OBS CARE(HIGH) ADARSH WILLIS MD Mar 02, 2025 08:38
--- NOTE | 2025-03-02 10:49 | DVHPNRES ---
Progress Note Date Seen: Mar 02, 2025 Resident Creating Document: REGULO MCWILLIAMS RESIDENT Has the PT tested + for MRSA If YES, has PT been informed?: No Medical Necessity Reason Pt with a Central, PICC or Fol: No Subjective Review of Systems Patient seen and examined at bedside. Patient has no significant complaints denies fever/chills, minimal right foot tenderness. The patient will be taken today to the OR for the 2nd incision and drainage by production welder. Wound cultures are growing no microorganisms so far. We will continue current IV antibiotics at this time. We are still waiting for vascular surgery consult to assess the patient for possibility of revascularization due to severe PAD. ROS Constitutional: Denies weight loss, fever and chills. HEENT: Denies changes in vision and hearing. Respiratory: Denies shortness of breath and cough Cardiovascular: Denies chest discomfort or palpitations GI: Denies abdominal pain, nausea, vomiting and diarrhea. : Denies dysuria and urinary frequency. Musculoskeletal: Denies myalgias and joint pain Skin: Denies rash and pruritus. Neurological: Denies dizziness, headache, vision or hearing problems Objective vital signs Vital Sign Date Time Temp Pulse Resp B/P (MAP) Pulse Ox O2 Delivery O2 Flow Rate FiO2 03/02/25 09:00 98.4 89 18 124/96 (105) 98 98.4 03/01/25 20:00 Room Air* 0 21 Total Intake and Output 03/01/25 03/01/25 03/02/25 15:00 23:00 07:00 Intake Total 325 ml 315 ml Output Total 1000 ml 300 ml Balance -675 ml 15 ml medications Current Medications Medications Dose Ordered Sig/Bandar Route Start Time Stop Time Status Last Admin Dose Admin Piperacillin Sod/ Tazobactam Sod 100 ml @ 25 mls/hr Q12H IV 02/24/25 06:00 03/02/25 05:38 25 MLS/HR Sodium Chloride 10 ml Q8HR IV 02/23/25 22:00 03/02/25 05:38 10 ML Docusate Sodium 100 mg BIDPRN PRN PO 02/23/25 19:30 Acetaminophen 650 mg Q6HP PRN PO 02/23/25 19:30 Acetaminophen/ Hydrocodone Bitart 1 tab Q4HP PRN PO 02/23/25 19:30 02/25/25 22:00 1 TAB Ondansetron HCl 4 mg Q4HP PRN IV 02/23/25 19:30 Diagnostic Test (Pha) 1 strip ACHS 02/23/25 22:00 03/02/25 06:19 1 STRIP Insulin Human Regular HS SC 02/23/25 22:00 03/01/25 22:04 8 UNITS Insulin Human Regular AC SC 02/24/25 07:00 03/02/25 06:20 3 UNITS Dextrose 50 ml UD PRN IV 02/23/25 20:00 Pantoprazole Sodium 40 mg DAILY IV 02/24/25 10:00 03/02/25 09:46 40 MG Atorvastatin Calcium 10 mg HS PO 02/24/25 22:00 03/01/25 22:04 10 MG Vancomycin HCl 0 ml @ 0 mls/hr UD IV 02/23/25 22:30 Examination Physical Examination General: Patient alert and oriented in person, place and time. Patient following commands. HEENT: Normocephalic, atraumatic, moist mucous membranes Respiratory/pulmonary: Clear lungs bilaterally, no associated crackles or wheezes. Cardiovascular: Normal heart sounds S1 and S2 with no associated murmurs Abdomen: Abdomen nondistended, there is no pain to palpation in any of the abdominal quadrants, no palpable masses. Extremities: Right foot was wrapped with clean gauze and bandage which will be replaced by surgeon, there is no serosanguineous fluid soaking the gauze at this time. There is no peripheral edema present at the lower extremities. Skin: No rashes or pruritus, there is no sacral edema present at this time. Neurological: Intact cranial nerves with no focal neurologic deficits laboratory and microbiology Laboratory Tests 03/02/25 09:15 02/28/25 06:30 Test 02/28/25 06:30 Range/Units Serum Glucose 167 H 74-106 mg/dL Microbiology Date/Time Source Procedure Growth Status 02/28/25 13:03 Foot Right Gram Stain - Final Resulted 02/28/25 13:03 Foot Right Anaerobic Culture - Preliminary Resulted 02/28/25 13:03 Foot Right Aerobic Culture - Preliminary Resulted Problem List/Assessment/Plan Problem List/Assessment/Plan Assessment/plan Right great toe osteomyelitis Right lower extremity cellulitis with osteomyelitis of the right great toe Severe Peripheral artery disease Type 2 diabetes mellitus Primary hypertension Dyslipidemia CKD stage IIIB History of left testicular cancer, status post left orchiectomy 1993 Plan -CT scan of the right foot showed soft tissue emphysema and ulceration along the medial aspect of the 1st digit with erosive changes at the medial aspect of the base of the 1st distal phalanx concerning for osteomyelitis. -MRI of the right foot showed soft tissue inflammatory changes at the great toe with no fluid collection or abscess. There were changes suggesting osteomyelitis of the distal phalanx of the great toe. There was also subchondral fracture of the 3rd metatarsal head with a associated marrow edema and mild cortical deformity. -production welder on board, took patient to OR for incision and drainage yesterday and bone biopsy which was sent to pathology for cultures -continue IV vancomycin and Zosyn -Cultures are showing no growth so far. -patient will be scheduled for 2nd incision and drainage today -[facility]ending [facility] surgeon consult Goals of care discussed with the patient at bedside >35min, FULL CODE Plan discussed with Dr. Colon Plan discussed with: Patient My Orders My Orders Orders - REGULO MCWILLIAMS Procedure Category Date Status Time Consult CONS 03/01/25 Transmitted Vascular/Endovascular 19:27 Dietary Evaluation Review Comments: 1. Enourage and monitor PO intake to meet at least 75% of his needs. CCHO-60 Renal Standard diet 2. Offfer glucerna PO 240 ml BID as supplement if PO intake <75% 3. Review updated lipid profile d/c lipitor if LDL < 75. Expected Outcomes/Goals: Promote healing through well-managed DM and renal diet. prevent wt loss. REGULO MCWILLIAMS RESIDENT Mar 02, 2025 10:49
--- NOTE | 2025-03-02 11:39 | DVHPN2 ---
Progress Note Date Seen: Mar 02, 2025 Has the PT tested + for MRSA If YES, has PT been informed?: No Medical Necessity Reason Pt with a Central, PICC or Fol: No Subjective Patient reports: No new complaints Other Systems: Patient seen and examined by myself today in follow-up Objective vital signs Vital Sign Date Time Temp Pulse Resp B/P (MAP) Pulse Ox O2 Delivery O2 Flow Rate FiO2 03/02/25 09:00 98.4 89 18 124/96 (105) 98 98.4 03/01/25 20:00 Room Air* 0 21 Total Intake and Output 03/01/25 03/01/25 03/02/25 15:00 23:00 07:00 Intake Total 325 ml 315 ml Output Total 1000 ml 300 ml Balance -675 ml 15 ml medications Current Medications Medications Dose Ordered Sig/Bandar Route Start Time Stop Time Status Last Admin Dose Admin Piperacillin Sod/ Tazobactam Sod 100 ml @ 25 mls/hr Q12H IV 02/24/25 06:00 03/02/25 05:38 25 MLS/HR Sodium Chloride 10 ml Q8HR IV 02/23/25 22:00 03/02/25 05:38 10 ML Docusate Sodium 100 mg BIDPRN PRN PO 02/23/25 19:30 Acetaminophen 650 mg Q6HP PRN PO 02/23/25 19:30 Acetaminophen/ Hydrocodone Bitart 1 tab Q4HP PRN PO 02/23/25 19:30 02/25/25 22:00 1 TAB Ondansetron HCl 4 mg Q4HP PRN IV 02/23/25 19:30 Diagnostic Test (Pha) 1 strip ACHS 02/23/25 22:00 03/02/25 06:19 1 STRIP Insulin Human Regular HS SC 02/23/25 22:00 03/01/25 22:04 8 UNITS Insulin Human Regular AC SC 02/24/25 07:00 03/02/25 06:20 3 UNITS Dextrose 50 ml UD PRN IV 02/23/25 20:00 Pantoprazole Sodium 40 mg DAILY IV 02/24/25 10:00 03/02/25 09:46 40 MG Atorvastatin Calcium 10 mg HS PO 02/24/25 22:00 03/01/25 22:04 10 MG Vancomycin HCl 0 ml @ 0 mls/hr UD IV 02/23/25 22:30 Examination: LUNGS:Normal, CVS:Normal, MSK:Normal laboratory and microbiology Laboratory Tests 03/02/25 09:15 02/28/25 06:30 Test 02/28/25 06:30 Range/Units Serum Glucose 167 H 74-106 mg/dL Microbiology Date/Time Source Procedure Growth Status 02/28/25 13:03 Foot Right Gram Stain - Final Resulted 02/28/25 13:03 Foot Right Anaerobic Culture - Preliminary Resulted 02/28/25 13:03 Foot Right Aerobic Culture - Preliminary Resulted Problem List/Assessment/Plan Problem List/Assessment/Plan Acute kidney injury on Chronic kidney disease IIIb likely hemodynamic etiology Chronic kidney disease stage IIIB follow with Dr. Ponce Hypokalemia, replaced Metabolic alkalosis, resolved Diabetes mellitus Osteomyelitis right foot Hypertension Recommendations Kidney function continues to slowly improving Increased urine output KCL replacement Kidney ultrasound reported bilateral echogenic kidney IV antibiotics Insulin sliding scale We will continue to follow up Plan discussed with: Patient Dietary Evaluation Review Comments: 1. Enourage and monitor PO intake to meet at least 75% of his needs. CCHO-60 Renal Standard diet 2. Offfer glucerna PO 240 ml BID as supplement if PO intake <75% 3. Review updated lipid profile d/c lipitor if LDL < 75. Expected Outcomes/Goals: Promote healing through well-managed DM and renal diet. prevent wt loss. QUOC QUINONEZ MD Mar 02, 2025 11:39
[2025-03-02] MEDS: BUPIVACAINE 0.5% MPF INJ 30ML SDV IJ ONE (12:00)
[2025-03-02] MEDS ORDERED: fentaNYL CITRATE 100 MCG/2 ML VL ONE (12:04)
[2025-03-02] MEDS ORDERED: MIDAZOLAM HCL 2MG/2ML 2ml VIAL (1mg/ml) ONE (12:04)
--- NOTE | 2025-03-02 12:08 | DVHPN2 ---
Subjective 74 y/o M, with PMHx of HTN, DM, HLD, CKD III, and testicular cancer presents to the ED for CC of lower extremity. Patient states, that he has been experiencing right foot pain with associated right great toe pain, swelling, erythema, and discharge x1week. Patient reports, despite having regular wound care symptoms continue to worsen. Patient denies fever, chills, sweats, recent trauma, fall, or injury. No other symptoms or modifying factors present at this time. Reviewed: Care Plan, H&P, Labs, Medications, Previous Orders, Radiology Changes from previous H/P or p: No Changes Objective Vitals Vital Signs Date Time Temp Pulse Resp B/P (MAP) Pulse Ox O2 Delivery O2 Flow Rate FiO2 03/02/25 09:00 98.4 89 18 124/96 (105) 98 98.4 03/01/25 20:00 Room Air* 0 21 Intake/Output Intake and Output 03/02/25 07:00 Intake Total 640 ml Output Total 1300 ml Balance -660 ml Intake Oral 605 ml IV Total 35 ml Output Urine Total 1300 ml # Bowel Movements 1 Exam Dermatological: Skin is dry with mild erythema and some maceration around the wound site No gross deformities noted Mild non-pitting edema present bilaterally Right hallux medial ulcer with exposed bone Vascular: Dorsalis pedis and posterior tibial pulses are 1+ bilaterally Capillary refill is under 2 seconds Skin temperature is warm bilaterally Neurologic: Protective sensation is absent on the plantar forefoot bilaterally Monofilament testing reveals decreased sensation in multiple plantar sites Musculoskeletal: Range of motion at the ankle and MTP joints is within normal limits. Strength is 5/5 in all tested muscle groups. Gait is antalgic due to offloading of the affected limb. Medications Current Medications Medications Dose Ordered Sig/Bandar Route Start Time Stop Time Status Last Admin Dose Admin Piperacillin Sod/ Tazobactam Sod 100 ml @ 25 mls/hr Q12H IV 02/24/25 06:00 03/02/25 05:38 25 MLS/HR Sodium Chloride 10 ml Q8HR IV 02/23/25 22:00 03/02/25 05:38 10 ML Docusate Sodium 100 mg BIDPRN PRN PO 02/23/25 19:30 Acetaminophen 650 mg Q6HP PRN PO 02/23/25 19:30 Acetaminophen/ Hydrocodone Bitart 1 tab Q4HP PRN PO 02/23/25 19:30 02/25/25 22:00 1 TAB Ondansetron HCl 4 mg Q4HP PRN IV 02/23/25 19:30 Diagnostic Test (Pha) 1 strip ACHS 02/23/25 22:00 03/02/25 06:19 1 STRIP Insulin Human Regular HS SC 02/23/25 22:00 03/01/25 22:04 8 UNITS Insulin Human Regular AC SC 02/24/25 07:00 03/02/25 06:20 3 UNITS Dextrose 50 ml UD PRN IV 02/23/25 20:00 Pantoprazole Sodium 40 mg DAILY IV 02/24/25 10:00 03/02/25 09:46 40 MG Atorvastatin Calcium 10 mg HS PO 02/24/25 22:00 03/01/25 22:04 10 MG Vancomycin HCl 0 ml @ 0 mls/hr UD IV 02/23/25 22:30 Laboratory Results Laboratory Tests 02/28/25 06:30 03/02/25 09:15 Urinalysis Test 02/23/25 21:50 02/28/25 00:20 Urine Creatinine 133.45 mg/dL (30.0-125.0) H Urine Sodium 30 mmol/L (40-220) L Urine Color Light-yellow (Yellow) Urine Clarity Clear (Clear) Urine pH 7.0 (5.0-9.0) Urine Specific [place] 1.012 (1.001-1.035) Urine Protein Negative (Negative) Urine Ketones Negative (Negative) Urine Blood Negative /uL (Negative) Urine Nitrite Negative (Negative) Urine Bilirubin Negative (Negative) Urine Urobilinogen Normal mg/dL (Negative) Urine Leukocyte Esterase Negative /uL (Negative) Urine RBC <1 /hpf (0 - 3) Urine Microscopic WBC < 1 /HPF (0-3) Urine Squamous Epithelial Cells Few /hpf (<5) Urine Bacteria None seen /hpf (None Seen) Urine Glucose 1+ mg/dL (Normal) H Microbiology Microbiology Date/Time Source Procedure Growth Status 02/28/25 13:03 Foot Right Gram Stain - Final Resulted 02/28/25 13:03 Foot Right Anaerobic Culture - Preliminary Resulted 02/28/25 13:03 Foot Right Aerobic Culture - Preliminary Resulted Assessment/Plan Assessment/Plan ASSESSMENT: Patient is a 74 year old seen on the floor follow up s/p foot I&D PLAN: - The patients chart was reviewed, clinical findings were discussed with the patient, the etiologies of the conditions were discussed in detail, and a treatment plan was agreed to at this time, with both oral and written instructions provided. - reviewed advanced imaging - reviewed all of the labs and pathology - discussed plan is to perform a subsequent incision and drainage - patient has been NPO since midnight - take him to the OR today - can weightbear as tolerated in postoperative shoe All questions were answered and concerns addressed to the patient's satisfaction. The patient was given the phone number to the clinic and was told how to make contact with the clinic should any concerns or questions arise. Patient understands that if any questions or concerns arise prior to the next appointment, we should be contacted immediately. FOLLOW-UP: Continue to follow while inpatient Plan discussed with: Patient My Orders Orders - MENDOZA LEWIS DPM Procedure Category Date Status Time Npo (Nothing By DIET 03/02/25 Transmitted Mouth) Diet Breakfast Obtain Consent For: ORDERS 03/01/25 Transmitted 15:06 Problem List: (1) Hypokalemia (2) Foot osteomyelitis, right (3) Hyperkalemia (4) Azotemia (5) Urinary retention (6) Generalized weakness Date of Service: Mar 02, 2025 Billing Provider: MENDOZA LEWIS DPM Common Visit Codes: [id number] INP/OBS CARE(HIGH) MENDOZA LEWIS DPM Mar 02, 2025 12:08
[2025-03-02] MEDS: VANCOMYCIN HCL 1000 MG VL ONE (12:13)
[2025-03-02] MEDS ORDERED: DexAMETHasone SOD PHOS 10MG/1ML VIAL INJ ONE (12:27)
--- NOTE | 2025-03-02 12:32 | DVHOP2 ---
Operative Report - 2 Report Details Date: 03/02/25 Preop Diagnosis: 1. Right foot osteomyelitis 2. Right foot abscess 3. Right foot cellulitis Postop Diagnosis: Same as preop Surgeon: Mendoza Lewis MD Anesthesiologist: See anesthesia Anesthesia: Mac Consent: The patient was informed of the risks and benefits of the procedure. These include but are not limited to complications of anesthesia, postoperative infection, incomplete relief of symptoms, recurrence of symptoms, damage to blood vessels, nerves and tendons, deep venous thrombosis, pulmonary embolism and possible need for repeat surgery in the future. Complications: None Estimated Blood Loss: Minimal Fluids: See anesthesia Findings: Consistent with the diagnosis Indications for Surgery: Right foot wound Name of Procedure Performed 1. Right foot I&D to bone (11792) 2. Right hallux rotational flap (45561) 3. Right foot delayed closure (91159) Procedure Details Procedure Details: PRE-PROCEDURE INFORMATION: In the pre-op holding area, the extremity to be operated on was clearly marked and the patient verified correct laterality of the marking. The patient was transferred to the OR table and placed in a supine position. A timeout was performed in which identification of the correct patient, procedure, location, and materials was done. The right foot and leg were prepped and draped in normal sterile fashion. DESCRIPTION OF PROCEDURE: Attention was directed to the right where area of fluctuance was noted. An incision was made over this area and was deepened through blunt dissection. The incision was deepened to the level of abscess and bone. Care was taken to the dissection to avoid any neurovascular and tendinous structures. The incision was deepened to the bone, and the abscess appeared to be purulent fluid consistent with pus. The cortices of the bone was then removed with rongeur an all necrotic tissue. After the abscess was drained, the area was irrigated with 3 L normal saline using cysto tubing. Deep cultures were then obtained from the wound. The area was then inspected and any areas of tracking, especially along the tendons were also drained. Due to the soft tissue deficit, rotational advancement flap was designed medially to laterally and elevated preserving vascularity. A delayed closure was then performed using 2-0 nylon after was deemed appropriate with no longer concern for infection. POSTOPERATIVE INFORMATION: The patient tolerated the above noted procedure and anesthesia well and was transferred to the PACU with vital signs stable, and vascular status intact with capillary refill intact to all digits. Incision was closed. Patient can weightbear as tolerated in a postoperative shoe. Patient will follow up with me next week. Patient can be discharged home on p.o. antibiotics pending on cultures. Condition Good Disposition Still a Patient MENDOZA LEWIS DPM Mar 02, 2025 12:32
[2025-03-02] MEDS ORDERED: PROPOFOL 10 MG/ML 20 ML IV ONE (12:53)
[2025-03-02] MEDS: VANCOMYCIN 1GM/200ML PM 200 ML IV ONE (13:18)
[2025-03-02] MEDS: ACCU-CHEK COMFORT CURVE STRIP VI SCH (23:15)
[2025-03-02] MEDS ORDERED: DEXTROSE (50%) 50ML SYRG IV PRN (23:15)
[2025-03-02] MEDS: InsuLIN REG 1unit/0.01ml Soln (100units/ml) SC SCH (23:34)
[2025-03-03] VITALS (8 sets, daily range): BP systolic 128–153; BP diastolic 63–72; PULSE 75–98; RESP 14–20; TEMP 97.4–97.9; O2SAT 96–100
--- NOTE | 2025-03-03 10:01 | DVHPN2 ---
Reviewed: Care Plan, H&P, Labs, Medications, Previous Orders, Radiology Changes from previous H/P or p: No Changes Objective Vitals Vital Signs Date Time Temp Pulse Resp B/P (MAP) Pulse Ox O2 Delivery O2 Flow Rate FiO2 03/03/25 05:00 97.4 75 14 136/70 (92) 100 97.4 03/02/25 20:00 Room Air* 0 21 Intake/Output Intake and Output 03/03/25 06:59 Intake Total 1780 ml Output Total 1125 ml Balance 655 ml Intake Oral 1530 ml IV Total 250 ml Output Urine Total 1125 ml # Bowel Movements 1 Medications Current Medications Medications Dose Ordered Sig/Bandar Route Start Time Stop Time Status Last Admin Dose Admin Piperacillin Sod/ Tazobactam Sod 100 ml @ 25 mls/hr Q12H IV 02/24/25 06:00 03/03/25 05:45 25 MLS/HR Sodium Chloride 10 ml Q8HR IV 02/23/25 22:00 03/03/25 05:45 10 ML Docusate Sodium 100 mg BIDPRN PRN PO 02/23/25 19:30 Acetaminophen 650 mg Q6HP PRN PO 02/23/25 19:30 Acetaminophen/ Hydrocodone Bitart 1 tab Q4HP PRN PO 02/23/25 19:30 02/25/25 22:00 1 TAB Ondansetron HCl 4 mg Q4HP PRN IV 02/23/25 19:30 Pantoprazole Sodium 40 mg DAILY IV 02/24/25 10:00 03/03/25 09:25 40 MG Atorvastatin Calcium 10 mg HS PO 02/24/25 22:00 03/02/25 22:04 10 MG Vancomycin HCl 0 ml @ 0 mls/hr UD IV 02/23/25 22:30 Diagnostic Test (Pha) 1 strip IQ4HR 03/03/25 00:00 03/03/25 08:03 1 STRIP Insulin Human Regular IQ4HR SC 03/03/25 00:00 03/03/25 08:04 3 UNITS Dextrose 50 ml UD PRN IV 03/02/25 23:15 Laboratory Results Laboratory Tests 02/28/25 06:30 03/03/25 06:45 Urinalysis Test 02/23/25 21:50 02/28/25 00:20 Urine Creatinine 133.45 mg/dL (30.0-125.0) H Urine Sodium 30 mmol/L (40-220) L Urine Color Light-yellow (Yellow) Urine Clarity Clear (Clear) Urine pH 7.0 (5.0-9.0) Urine Specific [place] 1.012 (1.001-1.035) Urine Protein Negative (Negative) Urine Ketones Negative (Negative) Urine Blood Negative /uL (Negative) Urine Nitrite Negative (Negative) Urine Bilirubin Negative (Negative) Urine Urobilinogen Normal mg/dL (Negative) Urine Leukocyte Esterase Negative /uL (Negative) Urine RBC <1 /hpf (0 - 3) Urine Microscopic WBC < 1 /HPF (0-3) Urine Squamous Epithelial Cells Few /hpf (<5) Urine Bacteria None seen /hpf (None Seen) Urine Glucose 1+ mg/dL (Normal) H Microbiology Microbiology Date/Time Source Procedure Growth Status 02/28/25 13:03 Foot Right Gram Stain - Final Resulted 02/28/25 13:03 Foot Right Anaerobic Culture - Preliminary Resulted 02/28/25 13:03 Foot Right Aerobic Culture - Preliminary Resulted Labs and/or images reviewed: Labs reviewed by me, Image(s) reviewed by me Assessment/Plan Assessment/Plan Cellulitis right lower leg Osteomyelitis right 1st toe: Consult for Dr. Valdez appreciated,, status post right foot I&D to bone and right hallux bone biopsy by research center director Dr. Valdez on 02-28-25, continue Zosyn and vancomycin, ID consult by Dr. Ross Colon appreciated, status post wound closure by research center director, deep wound cultures negative Fracture right 3rd metatarsal Acute kidney injury on Chronic kidney disease IIIb likely hemodynamic etiology, Nephrology consult appreciated Hypokalemia Metabolic alkalosis Diabetes mellitus: Insulin sliding scale Hypertension Time spent 56 minutes PAD: 50-75 % stenosis of right superficial femoral artery, patient says he already has an appointment with his vascular surgeon through [facility] for outpatient peripheral angiography. Patient is full code Will await input from ID Dr. Ross Colon about discharge antibiotics. Plan discussed with: Patient Date of Service: Mar 03, 2025 Billing Provider: ADARSH WILLIS MD Common Visit Codes: [id number] INP/OBS CARE(HIGH) ADARSH WILLIS MD Mar 03, 2025 10:01
--- NOTE | 2025-03-03 10:58 | DVHPN2 ---
Progress Note Date Seen: Mar 03, 2025 Has the PT tested + for MRSA If YES, has PT been informed?: No Medical Necessity Reason Pt with a Central, PICC or Fol: No Subjective Patient reports: No new complaints Other Systems: Patient seen and examined by myself today in follow-up Objective vital signs Vital Sign Date Time Temp Pulse Resp B/P (MAP) Pulse Ox O2 Delivery O2 Flow Rate FiO2 03/03/25 09:00 97.6 85 20 148/71 (96) 100 97.6 03/03/25 08:00 Room Air* 0 21 Total Intake and Output 03/02/25 03/02/25 03/03/25 15:00 23:00 07:00 Intake Total 150 ml 790 ml 840 ml Output Total 600 ml 525 ml Balance 150 ml 190 ml 315 ml medications Current Medications Medications Dose Ordered Sig/Bandar Route Start Time Stop Time Status Last Admin Dose Admin Piperacillin Sod/ Tazobactam Sod 100 ml @ 25 mls/hr Q12H IV 02/24/25 06:00 03/03/25 05:45 25 MLS/HR Sodium Chloride 10 ml Q8HR IV 02/23/25 22:00 03/03/25 05:45 10 ML Docusate Sodium 100 mg BIDPRN PRN PO 02/23/25 19:30 Acetaminophen 650 mg Q6HP PRN PO 02/23/25 19:30 Acetaminophen/ Hydrocodone Bitart 1 tab Q4HP PRN PO 02/23/25 19:30 02/25/25 22:00 1 TAB Ondansetron HCl 4 mg Q4HP PRN IV 02/23/25 19:30 Pantoprazole Sodium 40 mg DAILY IV 02/24/25 10:00 03/03/25 09:25 40 MG Atorvastatin Calcium 10 mg HS PO 02/24/25 22:00 03/02/25 22:04 10 MG Vancomycin HCl 0 ml @ 0 mls/hr UD IV 02/23/25 22:30 Diagnostic Test (Pha) 1 strip IQ4HR 03/03/25 00:00 03/03/25 08:03 1 STRIP Insulin Human Regular IQ4HR SC 03/03/25 00:00 03/03/25 08:04 3 UNITS Dextrose 50 ml UD PRN IV 03/02/25 23:15 Examination: LUNGS:Normal, CVS:Normal, MSK:Normal laboratory and microbiology Laboratory Tests 03/03/25 06:45 02/28/25 06:30 Test 02/28/25 06:30 Range/Units Serum Glucose 167 H 74-106 mg/dL Microbiology Date/Time Source Procedure Growth Status 02/28/25 13:03 Foot Right Gram Stain - Final Resulted 02/28/25 13:03 Foot Right Anaerobic Culture - Preliminary Resulted 02/28/25 13:03 Foot Right Aerobic Culture - Preliminary Resulted Problem List/Assessment/Plan Problem List/Assessment/Plan Acute kidney injury on Chronic kidney disease IIIb likely hemodynamic etiology Chronic kidney disease stage IIIB follow with Dr. Ponce Hypokalemia, replaced Metabolic alkalosis, resolved Diabetes mellitus Osteomyelitis right foot Hypertension Recommendations Kidney function stabilized Chronic Kidney Disease stage IIIB Increased urine output KCL replacement Kidney ultrasound reported bilateral echogenic kidney IV antibiotics Insulin sliding scale I will sign off this case please refer to nephrology for Chronic Kidney Disease follow-up two weeks after discharge Thank you for the consult Plan discussed with: Patient Dietary Evaluation Review Comments: 1. Enourage and monitor PO intake to meet at least 75% of his needs. CCHO-60 Renal Standard diet 2. Offfer glucerna PO 240 ml BID as supplement if PO intake <75% 3. Review updated lipid profile d/c lipitor if LDL < 75. Expected Outcomes/Goals: Promote healing through well-managed DM and renal diet. prevent wt loss. QUOC QUINONEZ MD Mar 03, 2025 10:58
--- NOTE | 2025-03-03 11:58 | DVHPNRES ---
Progress Note Date Seen: Mar 03, 2025 Resident Creating Document: REGULO MCWILLIAMS RESIDENT Has the PT tested + for MRSA If YES, has PT been informed?: No Medical Necessity Reason Pt with a Central, PICC or Fol: No Subjective Review of Systems Patient seen and examined at bedside. Patient denies foot pain, fever/chills or any other associated symptoms. Patient has no complaints or concerns at this time. We spoke with the patient and explained that 1st line treatment for his right great toe osteomyelitis was IV antibiotics but patient stated that he preferred to go on p.o. antibiotics. We will recommend doxycycline 100 mg b.i.d. and ciprofloxacin 500 mg b.i.d. upon discharge. ROS Constitutional: Denies weight loss, fever and chills. HEENT: Denies changes in vision and hearing. Respiratory: Denies shortness of breath and cough Cardiovascular: Denies chest discomfort or palpitations GI: Denies abdominal pain, nausea, vomiting and diarrhea. : Denies dysuria and urinary frequency. Musculoskeletal: Denies myalgias and joint pain Skin: Denies rash and pruritus. Neurological: Denies dizziness, headache, vision or hearing problems Objective vital signs Vital Sign Date Time Temp Pulse Resp B/P (MAP) Pulse Ox O2 Delivery O2 Flow Rate FiO2 03/03/25 09:00 97.6 85 20 148/71 (96) 100 97.6 03/03/25 08:00 Room Air* 0 21 Total Intake and Output 03/02/25 03/02/25 03/03/25 15:00 23:00 07:00 Intake Total 150 ml 790 ml 840 ml Output Total 600 ml 525 ml Balance 150 ml 190 ml 315 ml medications Current Medications Medications Dose Ordered Sig/Bandar Route Start Time Stop Time Status Last Admin Dose Admin Piperacillin Sod/ Tazobactam Sod 100 ml @ 25 mls/hr Q12H IV 02/24/25 06:00 03/03/25 05:45 25 MLS/HR Sodium Chloride 10 ml Q8HR IV 02/23/25 22:00 03/03/25 05:45 10 ML Docusate Sodium 100 mg BIDPRN PRN PO 02/23/25 19:30 Acetaminophen 650 mg Q6HP PRN PO 02/23/25 19:30 Acetaminophen/ Hydrocodone Bitart 1 tab Q4HP PRN PO 02/23/25 19:30 02/25/25 22:00 1 TAB Ondansetron HCl 4 mg Q4HP PRN IV 02/23/25 19:30 Pantoprazole Sodium 40 mg DAILY IV 02/24/25 10:00 03/03/25 09:25 40 MG Atorvastatin Calcium 10 mg HS PO 02/24/25 22:00 03/02/25 22:04 10 MG Vancomycin HCl 0 ml @ 0 mls/hr UD IV 02/23/25 22:30 Diagnostic Test (Pha) 1 strip IQ4HR 03/03/25 00:00 03/03/25 11:41 1 STRIP Insulin Human Regular IQ4HR SC 03/03/25 00:00 03/03/25 11:42 6 UNITS Dextrose 50 ml UD PRN IV 03/02/25 23:15 Examination Physical Examination General: Patient alert and oriented in person, place and time. Patient following commands. HEENT: Normocephalic, atraumatic, moist mucous membranes Respiratory/pulmonary: Clear lungs bilaterally, no associated crackles or wheezes. Cardiovascular: Normal heart sounds S1 and S2 with no associated murmurs Abdomen: Abdomen nondistended, there is no pain to palpation in any of the abdominal quadrants, no palpable masses. Extremities: Right foot was wrapped with clean gauze and bandage which will be replaced by surgeon, there is no serosanguineous fluid soaking the gauze at this time. There is no peripheral edema present at the lower extremities. Skin: No rashes or pruritus, there is no sacral edema present at this time. Neurological: Intact cranial nerves with no focal neurologic deficits laboratory and microbiology Laboratory Tests 03/03/25 06:45 02/28/25 06:30 Test 02/28/25 06:30 Range/Units Serum Glucose 167 H 74-106 mg/dL Microbiology Date/Time Source Procedure Growth Status 02/28/25 13:03 Foot Right Gram Stain - Final Resulted 02/28/25 13:03 Foot Right Anaerobic Culture - Preliminary Resulted 02/28/25 13:03 Foot Right Aerobic Culture - Preliminary Resulted Problem List/Assessment/Plan Problem List/Assessment/Plan Assessment/plan Right great toe osteomyelitis Right lower extremity cellulitis with osteomyelitis of the right great toe Severe Peripheral artery disease Type 2 diabetes mellitus Primary hypertension Dyslipidemia CKD stage IIIB History of left testicular cancer, status post left orchiectomy 1993 Plan -CT scan of the right foot showed soft tissue emphysema and ulceration along the medial aspect of the 1st digit with erosive changes at the medial aspect of the base of the 1st distal phalanx concerning for osteomyelitis. -MRI of the right foot showed soft tissue inflammatory changes at the great toe with no fluid collection or abscess. There were changes suggesting osteomyelitis of the distal phalanx of the great toe. There was also subchondral fracture of the 3rd metatarsal head with a associated marrow edema and mild cortical deformity. -medical i d sales on board, took patient to OR for incision and drainage yesterday and bone biopsy which was sent to pathology for cultures -continue IV vancomycin and Zosyn -Cultures are showing no growth so far. -patient underwent incision and drainage yesterday where they performed closure of the wound with no apparent residual infection. [employer] also agreed on PO abs -Patient can be DC by primary team on PO abs for 6 weeks. Doxycycline 100mg BID and ciprofloxacin 500mg BID and rifampin 300mg po BID -F/U with ID in 1 week to check healing status Goals of care discussed with the patient at bedside >35min, FULL CODE Plan discussed with Dr. Colon Plan discussed with: Patient Dietary Evaluation Review Comments: 1. Enourage and monitor PO intake to meet at least 75% of his needs. CCHO-60 Renal Standard diet 2. Offfer glucerna PO 240 ml BID as supplement if PO intake <75% 3. Review updated lipid profile d/c lipitor if LDL < 75. Expected Outcomes/Goals: Promote healing through well-managed DM and renal diet. prevent wt loss. REGULO MCWILLIAMS RESIDENT Mar 03, 2025 11:58
[2025-03-03] MEDS: DOXYCYCLINE 100 MG TAB/CAP PO SCH (23:00)
[2025-03-03] MEDS: CIPROFLOXACIN HCL 500 MG TAB PO SCH (23:00)
[2025-03-03] MEDS: rifAMPin 300 MG CAP PO SCH (23:00)
[2025-03-03] MEDS: CIPROFLOXACIN HCL 500 MG TAB PO ONE (23:00)
[2025-03-03] MEDS: DOXYCYCLINE 100 MG TAB/CAP ONE (23:01)
[2025-03-04 01:00] VITALS: BP 132/71; PULSE 81; RESP 18; TEMP 97.7; O2SAT 98
[2025-03-04 05:00] VITALS: BP 127/68; PULSE 82; RESP 18; TEMP 97.6; O2SAT 100
[2025-03-04 08:00] VITALS: PULSE 86; RESP 18; O2SAT 99
[2025-03-04 09:00] VITALS: BP 143/70; PULSE 86; RESP 20; TEMP 97.9; O2SAT 100
[2025-03-04] MEDS ORDERED: RIFA300C58 PO (09:36)
[2025-03-04] MEDS ORDERED: HYDR-4902 PO (09:36)
[2025-03-04] MEDS ORDERED: DOXY100C79 PO (09:36)
[2025-03-04] MEDS ORDERED: CIPR-173 PO (09:36)
--- NOTE | 2025-03-04 09:47 | DVHPN2 ---
Reviewed: Care Plan, H&P, Labs, Medications, Previous Orders, Radiology Changes from previous H/P or p: No Changes Objective Vitals Vital Signs Date Time Temp Pulse Resp B/P (MAP) Pulse Ox O2 Delivery O2 Flow Rate FiO2 03/04/25 09:00 97.9 86 20 143/70 (94) 100 97.9 03/03/25 20:00 Room Air* 0 21 Intake/Output Intake and Output 03/04/25 07:00 Intake Total 1340 ml Balance 1340 ml Intake Oral 1240 ml IV Total 100 ml # Voids 4 # Bowel Movements 1 Medications Current Medications Medications Dose Ordered Sig/Bandar Route Start Time Stop Time Status Last Admin Dose Admin Sodium Chloride 10 ml Q8HR IV 02/23/25 22:00 03/04/25 06:02 10 ML Docusate Sodium 100 mg BIDPRN PRN PO 02/23/25 19:30 Acetaminophen 650 mg Q6HP PRN PO 02/23/25 19:30 Acetaminophen/ Hydrocodone Bitart 1 tab Q4HP PRN PO 02/23/25 19:30 02/25/25 22:00 1 TAB Ondansetron HCl 4 mg Q4HP PRN IV 02/23/25 19:30 Pantoprazole Sodium 40 mg DAILY IV 02/24/25 10:00 03/03/25 09:25 40 MG Atorvastatin Calcium 10 mg HS PO 02/24/25 22:00 03/03/25 21:08 10 MG Diagnostic Test (Pha) 1 strip IQ4HR 03/03/25 00:00 03/04/25 07:52 1 STRIP Insulin Human Regular IQ4HR SC 03/03/25 00:00 03/04/25 07:53 2 UNITS Dextrose 50 ml UD PRN IV 03/02/25 23:15 Doxycycline Monohydrate 100 mg Q12HR PO 03/03/25 22:00 03/03/25 23:00 100 MG Ciprofloxacin 500 mg Q12HR PO 03/03/25 22:00 03/03/25 23:00 500 MG Rifampin 300 mg BID PO 03/03/25 22:00 03/03/25 23:00 300 MG Laboratory Results Laboratory Tests 02/28/25 06:30 03/03/25 06:45 Urinalysis Test 02/23/25 21:50 02/28/25 00:20 Urine Creatinine 133.45 mg/dL (30.0-125.0) H Urine Sodium 30 mmol/L (40-220) L Urine Color Light-yellow (Yellow) Urine Clarity Clear (Clear) Urine pH 7.0 (5.0-9.0) Urine Specific [place] 1.012 (1.001-1.035) Urine Protein Negative (Negative) Urine Ketones Negative (Negative) Urine Blood Negative /uL (Negative) Urine Nitrite Negative (Negative) Urine Bilirubin Negative (Negative) Urine Urobilinogen Normal mg/dL (Negative) Urine Leukocyte Esterase Negative /uL (Negative) Urine RBC <1 /hpf (0 - 3) Urine Microscopic WBC < 1 /HPF (0-3) Urine Squamous Epithelial Cells Few /hpf (<5) Urine Bacteria None seen /hpf (None Seen) Urine Glucose 1+ mg/dL (Normal) H Microbiology Microbiology Date/Time Source Procedure Growth Status 02/28/25 13:03 Foot Right Gram Stain - Final Resulted 02/28/25 13:03 Foot Right Anaerobic Culture - Preliminary Resulted 02/28/25 13:03 Foot Right Aerobic Culture - Preliminary Resulted Labs and/or images reviewed: Labs reviewed by me, Image(s) reviewed by me Assessment/Plan Assessment/Plan Cellulitis right lower leg Osteomyelitis right 1st toe: Consult for Dr. Valdez appreciated,, status post right foot I&D to bone and right hallux bone biopsy by fixed interest dealer Dr. Valdez on 02-28-25, continue Zosyn and vancomycin, ID consult by Dr. Ross Colon appreciated, status post wound closure by fixed interest dealer, deep wound cultures negative Fracture right 3rd metatarsal Acute kidney injury on Chronic kidney disease IIIb likely hemodynamic etiology, Nephrology consult appreciated Hypokalemia Metabolic alkalosis Diabetes mellitus: Insulin sliding scale Hypertension Time spent 56 minutes PAD: 50-75 % stenosis of right superficial femoral artery, patient says he already has an appointment with his vascular surgeon through [facility] for outpatient peripheral angiography. ID Dr. Ross Pino recommended Cipro 500 mg p.o. b.i.d., rifampin 300 mg p.o. b.i.d., doxycycline 100 mg p.o. b.i.d. all for six weeks Discharged home on home health Medications transmitted to the pharmacy Plan discussed with: Patient My Orders Orders - ADARSH WILLSI MD Procedure Category Date Status Time Refer To Home Health [facility] 03/04/25 Verified 09:43 * [employer] CONS 03/04/25 Verified Consult Date of Service: Mar 04, 2025 Billing Provider: ADARSH WILLIS MD Common Visit Codes: [id number] INP/OBS CARE(HIGH) ADARSH WILLIS MD Mar 04, 2025 09:47
--- NOTE | 2025-03-04 09:52 | DVHDS2 ---
Discharge Summary Date of Admission Feb 23, 2025 at 19:27 Date of Discharge: Mar 04, 2025 Admitting Diagnosis Right foot infection Wounds: Right foot cellulitis Labs/Diagnostic Data: Laboratory Results Test 03/04/25 07:48 03/03/25 06:45 03/01/25 06:57 02/28/25 06:30 POC Glucose 152 mg/dl (70-106) Creatinine 1.80 mg/dL (0.700-1.30) Glomerular Filtration Rate Calc 39 mL/min (>90) Random Vancomycin Level 17.9 ug/mL (5-10) Hemoglobin A1c 6.8 % A1C (<5.7) White Blood Count 8.6 10^3/uL (4.4-10.8) Red Blood Count 3.57 10^6/uL (4.5-5.90) Hemoglobin 11.9 g/dL (13.5-17.5) Hematocrit 33.0 % (41.0-53.0) Mean Corpuscular Volume 92.3 fL (80.0-100.0) Mean Corpuscular Hemoglobin 33.2 pg (28.0-32.0) Mean Corpuscular Hemoglobin Concent 36.0 g/dL (32.0-36.0) Red Cell Distribution Width 14.1 % (11.8-14.3) Platelet Count 237 10^3/uL (140-450) Mean Platelet Volume 7.5 fL (6.9-10.8) Neutrophils (%) (Auto) 74.6 % (37.0-80.0) Lymphocytes (%) (Auto) 12.5 % (10.0-50.0) Monocytes (%) (Auto) 8.9 % (0.0-12.0) Eosinophils (%) (Auto) 3.2 % (0.0-7.0) Basophils (%) (Auto) 0.8 % (0.0-2.0) Neutrophils # (Auto) 6.4 10 ^3/uL (1.6-8.6) Lymphocytes # (Auto) 1.1 10 ^3/uL (0.4-5.4) Monocytes # (Auto) 0.8 10 ^3/uL (0-1.3) Eosinophils # (Auto) 0.3 10 ^3/uL (0-0.8) Basophils # (Auto) 0.1 10 ^3/uL (0-0.2) Nucleated Red Blood Cells 0.2 % Sodium Level 137 mmol/L (136-145) Potassium Level 3.5 mmol/L (3.5-5.1) Chloride Level 99 mmol/L (98-107) Carbon Dioxide Level 27 mmol/L (20-31) Anion Gap 11 (5-15) Blood Urea Nitrogen 28 mg/dL (9-23) BUN/Creatinine Ratio 14.7 (10.0-20.0) Serum Glucose 167 mg/dL (74-106) Calcium Level 9.8 mg/dL (8.7-10.4) Total Bilirubin 0.7 mg/dL (0.2-1.0) Aspartate Amino Transferase (AST) 11 U/L (<34) Alanine Aminotransferase (ALT) < 9 U/L (7-40) Alkaline Phosphatase 42 U/L (46-116) Total Protein 7.1 g/dL (5.7-8.2) Albumin 3.8 g/dL (3.2-4.8) Test 02/28/25 00:20 02/27/25 04:11 02/23/25 21:50 02/23/25 13:48 Urine Color Light-yellow (Yellow) Urine Clarity Clear (Clear) Urine pH 7.0 (5.0-9.0) Urine Specific [place] 1.012 (1.001-1.035) Urine Protein Negative (Negative) Urine Ketones Negative (Negative) Urine Blood Negative /uL (Negative) Urine Nitrite Negative (Negative) Urine Bilirubin Negative (Negative) Urine Urobilinogen Normal mg/dL (Negative) Urine Leukocyte Esterase Negative /uL (Negative) Urine RBC <1 /hpf (0 - 3) Urine Microscopic WBC < 1 /HPF (0-3) Urine Squamous Epithelial Cells Few /hpf (<5) Urine Bacteria None seen /hpf (None Seen) Urine Glucose 1+ mg/dL (Normal) Prothrombin Time 11.4 sec (9.3-11.8) Prothrombin Time INR 1.08 (0.9-1.15) Activated Partial Thromboplast Time 29.6 SEC (24.5-34.5) Urine Creatinine 133.45 mg/dL (30.0-125.0) Urine Sodium 30 mmol/L (40-220) Erythrocyte Sedimentation Rate 93 mm/hr (0-20) Other Laboratory Tests 03/03/25 06:45 02/28/25 06:30 Brief Hx & Hospital Course: 74-year-old male with a history of diabetes hypertension came in for chronic right foot infection found to have cellulitis MRI showed osteomyelitis right 1st toe consult by Dr. Valdez, underwent incision and drainage to the bone and right hallux bone biopsy biopsy result pending treated with the Zosyn vancomycin IV ID consult by Dr. Colon Advised Cipro rifampin and doxycycline for six weeks as an outpatient patient also had peripheral arterial disease in the right superficial femoral artery and he advised that he has an appointment with the vascular surgeon at [facility]' patient is discharged home. Prescription transmitted to the pharmacy he will follow up with the ID podiatric and nephrology Consults/Reason for consult Podiatriy Nephrology ID Operations or Procedures Incision and drainage right foot to the bone Condition at Discharge: Fair Final Diagnosis/Problems List Cellulitis right lower leg Osteomyelitis right 1st toe: Consult for Dr. Valdez appreciated,, status post right foot I&D to bone and right hallux bone biopsy by costumed character Dr. Valdez on 02-28-25, treated Zosyn and vancomycin ID consult by Dr. Ross Colon appreciated, status post wound closure by costumed character, deep wound cultures negative Fracture right 3rd metatarsal Acute kidney injury on Chronic kidney disease IIIb likely hemodynamic etiology, Nephrology consult appreciated Hypokalemia Metabolic alkalosis Diabetes mellitus: Insulin sliding scale Hypertension Time spent 56 minutes PAD: 50-75 % stenosis of right superficial femoral artery, patient says he already has an appointment with his vascular surgeon through [facility] for outpatient peripheral angiography. Discharge Disposition: Home with Health Services Discharge Instruct/Medications Diet: Cardiac 2g Na,low cholest Activity: Light activity Follow Up/Referral: Follow up with the podiatric Dr. Valdez in one week Follow up with the ID Dr. Ross COLON in one week Follow up with the Nephrology Dr. Ponce in one week Resume all previous home medications Use new medications as prescribed Medications: Cipro Doxycycline Rifampin [place] Transmitted to pharmacy 39 (Time taken for discharge summary 39 minutes) Discharge Statement: "Patient was advised to return to the ER or call 911 if any headaches, dizziness, shortness of breath, chest pain, abdominal pain, bleeding, fevers, or worsening of medical condition. Patient was counseled about treatment plan, medications, possible side effects, patientverbalized understanding. All questions were answered to the best of my ability. This discharge took greater then 30 minutes in planning, reviewing documentation, counseling the patient, and discussing with other team members." ASSESSMENT ASSESSMENT Hospital Course Improved Assessment Cellulitis right lower leg Osteomyelitis right 1st toe: Consult for Dr. Valdez appreciated,, status post right foot I&D to bone and right hallux bone biopsy by costumed character Dr. Valdez on 02-28-25, treated Zosyn and vancomycin ID consult by Dr. Ross Colon appreciated, status post wound closure by costumed character, deep wound cultures negative Fracture right 3rd metatarsal Acute kidney injury on Chronic kidney disease IIIb likely hemodynamic etiology, Nephrology consult appreciated Hypokalemia Metabolic alkalosis Diabetes mellitus: Insulin sliding scale Hypertension Time spent 56 minutes PAD: 50-75 % stenosis of right superficial femoral artery, patient says he already has an appointment with his vascular surgeon through [facility] for outpatient peripheral angiography. Date of Service: Mar 04, 2025 Billing Provider: ADARSH WILLIS MD Common Visit Codes: [id number] DISCH DAY >30min ADARSH WILLIS MD Mar 04, 2025 09:52
--- NOTE | 2025-03-04 11:47 | DVHPNRES ---
Progress Note Date Seen: Mar 04, 2025 Resident Creating Document: REGULO MCWILLIAMS RESIDENT Has the PT tested + for MRSA If YES, has PT been informed?: No Medical Necessity Reason Pt with a Central, PICC or Fol: No Subjective Review of Systems Patient seen and examined at bedside. Patient denies fever/chills, palpitations or any other associated symptoms. Patient states that the pain has diminished significantly on his right lower extremity. Patient is aware that 1st line option is IV antibiotics but still wants to try p.o. antibiotics at home. We will discharge the patient on doxycycline 100 mg b.i.d., ciprofloxacin 500 mg b.i.d. and rifampin 300 mg p.o. b.i.d. for six weeks. Patient will also need home health for wound care and daily dressing. ROS Constitutional: Denies weight loss, fever and chills. HEENT: Denies changes in vision and hearing. Respiratory: Denies shortness of breath and cough Cardiovascular: Denies chest discomfort or palpitations GI: Denies abdominal pain, nausea, vomiting and diarrhea. : Denies dysuria and urinary frequency. Musculoskeletal: Denies myalgias and joint pain Skin: Denies rash and pruritus. Neurological: Denies dizziness, headache, vision or hearing problems Objective vital signs Vital Sign Date Time Temp Pulse Resp B/P (MAP) Pulse Ox O2 Delivery O2 Flow Rate FiO2 03/04/25 09:00 97.9 86 20 143/70 (94) 100 97.9 03/04/25 08:00 Room Air* 0 21 Total Intake and Output 03/03/25 03/03/25 03/04/25 15:00 23:00 07:00 Intake Total 500 ml 500 ml 340 ml Balance 500 ml 500 ml 340 ml medications Current Medications Medications Dose Ordered Sig/Bandar Route Start Time Stop Time Status Last Admin Dose Admin Sodium Chloride 10 ml Q8HR IV 02/23/25 22:00 03/04/25 06:02 10 ML Docusate Sodium 100 mg BIDPRN PRN PO 02/23/25 19:30 Acetaminophen 650 mg Q6HP PRN PO 02/23/25 19:30 Acetaminophen/ Hydrocodone Bitart 1 tab Q4HP PRN PO 02/23/25 19:30 02/25/25 22:00 1 TAB Ondansetron HCl 4 mg Q4HP PRN IV 02/23/25 19:30 Pantoprazole Sodium 40 mg DAILY IV 02/24/25 10:00 03/04/25 09:44 40 MG Atorvastatin Calcium 10 mg HS PO 02/24/25 22:00 03/03/25 21:08 10 MG Diagnostic Test (Pha) 1 strip IQ4HR 03/03/25 00:00 03/04/25 07:52 1 STRIP Insulin Human Regular IQ4HR SC 03/03/25 00:00 03/04/25 07:53 2 UNITS Dextrose 50 ml UD PRN IV 03/02/25 23:15 Doxycycline Monohydrate 100 mg Q12HR PO 03/03/25 22:00 03/04/25 09:43 100 MG Ciprofloxacin 500 mg Q12HR PO 03/03/25 22:00 03/04/25 09:43 500 MG Rifampin 300 mg BID PO 03/03/25 22:00 03/04/25 09:44 300 MG Examination Physical Examination General: Patient alert and oriented in person, place and time. Patient following commands. HEENT: Normocephalic, atraumatic, moist mucous membranes Respiratory/pulmonary: Clear lungs bilaterally, no associated crackles or wheezes. Cardiovascular: Normal heart sounds S1 and S2 with no associated murmurs Abdomen: Abdomen nondistended, there is no pain to palpation in any of the abdominal quadrants, no palpable masses. Extremities: Right foot was wrapped with clean gauze and bandage which will be replaced by surgeon, there is no serosanguineous fluid soaking the gauze at this time. There is no peripheral edema present at the lower extremities. Skin: No rashes or pruritus, there is no sacral edema present at this time. Neurological: Intact cranial nerves with no focal neurologic deficits laboratory and microbiology Laboratory Tests 03/03/25 06:45 02/28/25 06:30 Test 02/28/25 06:30 Range/Units Serum Glucose 167 H 74-106 mg/dL Microbiology Date/Time Source Procedure Growth Status 02/28/25 13:03 Foot Right Gram Stain - Final Resulted 02/28/25 13:03 Foot Right Anaerobic Culture - Preliminary Resulted 02/28/25 13:03 Foot Right Aerobic Culture - Preliminary Resulted Problem List/Assessment/Plan Problem List/Assessment/Plan Assessment/plan Right great toe osteomyelitis Right lower extremity cellulitis with osteomyelitis of the right great toe Severe Peripheral artery disease Type 2 diabetes mellitus Primary hypertension Dyslipidemia CKD stage IIIB History of left testicular cancer, status post left orchiectomy 1993 Plan -CT scan of the right foot showed soft tissue emphysema and ulceration along the medial aspect of the 1st digit with erosive changes at the medial aspect of the base of the 1st distal phalanx concerning for osteomyelitis. -MRI of the right foot showed soft tissue inflammatory changes at the great toe with no fluid collection or abscess. There were changes suggesting osteomyelitis of the distal phalanx of the great toe. There was also subchondral fracture of the 3rd metatarsal head with a associated marrow edema and mild cortical deformity. -magnetic tester on board, took patient to OR for incision and drainage yesterday and bone biopsy which was sent to pathology for cultures -continue IV vancomycin and Zosyn -Cultures are showing no growth so far. -patient underwent incision and drainage yesterday where they performed closure of the wound with no apparent residual infection. [employer] also agreed on PO abs -Patient can be DC by primary team on PO abs for 6 weeks. Doxycycline 100mg BID and ciprofloxacin 500mg BID and rifampin 300mg po BID -F/U with ID in 1 week to check healing status Goals of care discussed with the patient at bedside >35min, FULL CODE Plan discussed with Dr. Colon Plan discussed with: Patient My Orders My Orders Orders - REGULO MCWILLIAMS Procedure Category Date Status Time Doxycycline Tablet PHA 03/03/25 In Process (Vibramycin Tablet) 22:00 Ciprofloxacin Tablet PHA 03/03/25 In Process (Cipro Tablet) 22:00 Rifampin Capsule PHA 03/03/25 In Process 22:00 Dietary Evaluation Review Comments: 1. Enourage and monitor PO intake to meet at least 75% of his needs. CCHO-60 Renal Standard diet 2. Offfer glucerna PO 240 ml BID as supplement if PO intake <75% 3. Review updated lipid profile d/c lipitor if LDL < 75. Expected Outcomes/Goals: Promote healing through well-managed DM and renal diet. prevent wt loss. REGULO MCWILLIAMS RESIDENT Mar 04, 2025 11:47
[2025-03-04 13:00] VITALS: BP 127/72; PULSE 108; RESP 20; TEMP 97.6; O2SAT 99
[2025-03-04 13:26] VITALS: BP 127/72; PULSE 108; RESP 20; TEMP 97.6; O2SAT 99
[2025-03-04] MEDS ORDERED: METR-344 PO (18:16)
== END 2025-03-04 16:20 | disposition home health service (06) | DRG 988 ==
LOC: ER 12:37 → OVERFLOW 19:27 → CENTRAL 19:40
PROVIDERS: ADMIT Family Medicine; ATTEND Family Medicine
PROC: 0Y9M0ZZ Drainage of Right Foot, Open Approach (ICD-10-PCS; 2025-02-28)
PROC: 0Q9Q0ZX Drainage of Right Toe Phalanx, Open Approach, Diagnostic (ICD-10-PCS; principal; 2025-02-28 12:28)
PROC: 0Y9M0ZZ Drainage of Right Foot, Open Approach (ICD-10-PCS; 2025-03-02)
DX: E11.69 Type 2 diabetes mellitus with other specified complication (principal); E87.3 Alkalosis; L03.115 Cellulitis of right lower limb; M86.8X7 Other osteomyelitis, ankle and foot; L97.516 Non-pressure chronic ulcer of other part of right foot with bone involvement without evidence of necrosis; E87.6 Hypokalemia; E11.65 Type 2 diabetes mellitus with hyperglycemia; E11.621 Type 2 diabetes mellitus with foot ulcer; N18.32 Chronic kidney disease, stage 3b; E87.5 Hyperkalemia; S92.331A Displaced fracture of third metatarsal bone, right foot, initial encounter for closed fracture; I70.201 Unspecified atherosclerosis of native arteries of extremities, right leg; E11.22 Type 2 diabetes mellitus with diabetic chronic kidney disease; E78.5 Hyperlipidemia, unspecified; I12.9 Hypertensive chronic kidney disease with stage 1 through stage 4 chronic kidney disease, or unspecified chronic kidney disease; Z82.3 Family history of stroke; Z85.47 Personal history of malignant neoplasm of testis; Z86.73 Personal history of transient ischemic attack (TIA), and cerebral infarction without residual deficits; N17.0 Acute kidney failure with tubular necrosis
CPT/HCPCS: 36415; 71046; 73700; 73718; 76775; 80048; 80053; 80202; 81001; 82565; 82570; 82962; 83036; 84300; 85025; 85610; 85652; 85730; 87070; 87075; 87076; 87205; 93925; 96365; G0378; J1100; J1815; J2003; J2250; J2405; J2470; J2543; J2704; J3480; J3490

== ENCOUNTER 2025-03-09 11:29 | Inpatient (IN) | payer OTHER, MEDICAID ==
[~2025-03-09] VITALS: Ht 177.8 cm; Wt 70.2 kg
[~2025-03-09 11:29] MED LIST changes: +AMLO1TAB22 PO; +ASPI-628 PO; +CALC1CHW PO; +CARV12.544 PO; +CIPR-173 PO; +DOXY100C79 PO; +FURO40TA4 PO; +GLIP2.5T9 PO; +HYDR-4902 PO; +METR-344 PO; +RIFA300C58 PO; +TAMS0.4C39 PO
--- NOTE | 2025-03-09 12:07 | ED.PDOC ---
History of Present Illness HPI Comments This is a 74-year-old male who comes in with chief complaint of dizziness and weakness. The patient states that the symptoms started approximately 3 hours ago but over the past three days he has not been feeling well. He states that he was recently discharged from [facility] after having surgery on his right lower extremity by Dr. Valdez. Currently he lives with his family members but he was getting more weak as well as experiencing dizziness so 911 was called and the patient was transported to our facility. The patient has been suffering from some foot ulcers for the past three months. He denies any fever but is having a low appetite as well as lightheadedness. EN route, the patient's vital signs were within normal limits with an oxygen saturation of 97%. The patient had an Accu-Chek of 196 EN route. The patient is currently on antibiotics for his leg. Chief Complaint: General Weakness Time Seen by MD: 11:37 Primary Care Provider: LEON Reviewed Notes: Nurses Notes, Caregivers Homecare Notes, Medications, Allergies (No allergies to medications) Allergies: Coded Allergies: NO KNOWN ALLERGIES (Unverified , 06/12/21) Home Meds Active Scripts Metronidazole (Flagyl) 500 Mg Tab, 500 MG PO TID for 42 Days, #126 TAB Prov:MARITZA FARRAR MD 03/04/25 Hydrocodone-Acetaminophen (Hydrocodone Bitartrate/AC 5-325 mg) 1 Tab Tab, 1 TAB PO BID PRN, #40 TAB Prov:ADARSH WILLIS MD 03/04/25 Rifampin (Rifampin) 300 Mg Cap, 300 MG PO BID, #90 CAP Prov:ADARSH WILLIS MD 03/04/25 Ciprofloxacin Hcl (Cipro) 500 Mg Tab, 1 TAB PO BID, #90 TAB Prov:ADARSH WILLIS MD 03/04/25 Doxycycline (Monohydrate) (Doxycycline) 100 Mg Cap, 100 MG PO BIDAC, #90 CAP Prov:ADARSH WILLIS MD 03/04/25 Reported Medications Tamsulosin Hcl (Tamsulosin Hcl) 0.4 Mg Cap, 0.4 MG PO QPM for 30 Days, MG 02/24/25 Amlodipine Besylate (Amlodipine Besylate) 5 Mg Tab, 1 TAB PO DAILY 02/24/25 Furosemide (Furosemide) 40 Mg Tab, 1 TAB PO DAILY 02/24/25 Aspirin (Aspirin Adult Low Dose) 81 Mg Tab, 1 TAB PO DAILY 02/24/25 Glipizide (Glipizide Er) 2.5 Mg Tab, TAB PO 02/24/25 Carvedilol (Carvedilol) 12.5 Mg Tab, TAB PO 02/24/25 Calcium Carbonate-Cholecalcife (Calcium 500-10 mg-Mcg) 1 Chw Chw, 1 TAB PO BID 02/24/25 Atorvastatin Calcium (ATORVASTATIN CALCIUM) 10 Mg Tab, 10 MG PO DAILY, TAB 06/13/21 Glipizide (Glipizide) 10 Mg Tab, 10 MG PO, TAB 06/13/21 Metformin HCl (Metformin Hydrochloride) 500 Mg/5 Ml Gwendolyn, 500 MG PO, ML 06/13/21 Information Source: Patient, Emergency Med Personnel Mode of Arrival: EMS Severity: Moderate Timing: Days Duration: Since onset Prehospital treatment: Accucheck (196), Licsw Associated signs and symptoms Associated lightheadedness with dizziness Past Medical History PAST MEDICAL HISTORY: Cancer (History of testicular cancer in the past), CKF, DM, High Lipids, HTN Past Medical History (Other): Foot ulcers Surgical History: Tonsillectomy Surgical History (Other): Right leg surgery, cataract surgery Family History Family History: Reviewed,noncontributory to illness Social History Smoker: Non-Smoker Alcohol: Rarely Drugs: Denies Drug Use Lives In: Home Constitutional: reports: malaise, weakness; denies: chills, diaphoresis, fatigue, fever, sweats, others EENTM: denies: blurred vision, double vision, ear bleeding, ear discharge, ear drainage, ear pain, ear ringing, eye pain, eye redness, hearing loss, mouth pain, mouth swelling, nasal discharge, nose bleeding, nose congestion, nose pain, photophobia, tearing, throat pain, throat swelling, voice changes, others Respiratory: denies: cough, hemoptysis, orthopnea, SOB at rest, shortness of breath, SOB with excertion, stridor, wheezing, others Cardiovascular: denies: chest pain, dizzy spells, diaphoresis, Dyspnea on exertion, edema, irregular heart beat, left arm pain, lightheadedness, palpitations, PND, syncope, others Gastrointestinal: denies: abdomen distended, abdominal pain, blood streaked bowels, constipated, diarrhea, dysphagia, difficulty swallowing, hematemesis, melena, nausea, poor appetite, poor fluid intake, rectal bleeding, rectal pain, vomiting, others Genitourinary: denies: burning, dysuria, flank pain, frequency, hematuria, incontinence, penile discharge, penile sore, pain, testicle pain, testicle swelling, urgency, others Neurological: reports: dizziness; denies: fainting, headache, left sided numbness, left sided weakness, numbness, paresthesia, pre-existing deficit, right sided numbness, right sided weakness, seizure, speech problems, tingling, tremors, weakness, others Musculoskeletal: denies: back pain, gout, joint pain, joint swelling, muscle pain, muscle stiffness, neck pain, others Integumetry: denies: bruises, change in color, change in hair/nails, dryness, laceration, lesions, lumps, rash, wounds, others Allergic/Immunocompromised: denies: Difficulty Healing, Frequent Infections, Hives, Itching, others Hematologic/Lymphatic: denies: anemia, blood clots, easy bleeding, easy bruising, swollen glands, others Endocrine: denies: excessive hunger, excessive sweating, excessive thirst, excessive urination, flushing, intolerance to cold, intolerance to heat, unexplained weight gain, unexplained weight loss, others Psychiatric: denies: anxiety, bipolar disorder, depression, hopeless, panic disorder, schizophrenia, sleepless, suicidal, others Physical Exam General Appearance: Moderate Distress HEENT: Normal ENT Inspection, Pharynx Normal, TMs Normal Neck: Full Range of Motion, Non-Tender, Normal, Normal Inspection Respiratory: Chest Non-Tender, Lungs Clear, No Accessory Muscle Use, No Respiratory Distress, Normal Breath Sounds Cardiovascular: No Edema, No JVD, No Murmur, No Gallop, Normal Peripheral Pulses, Regular Rate/Rhythm Breast Exam: Deferred Gastrointestinal: No Organomegaly, Non Tender, No Pulsatile Mass, Normal Bowel Sounds, Soft Genitalia: Deferred Pelvic: Deferred Rectal: Deferred Extremities: No calf tenderness, Normal capillary refill, No pedal edema, Other (Splint to the right lower extremity with discoloration of the left lower extremity) Musculoskeletal : Apperance: Normal Neurologic: Alert, production officer II-XII nml as Tested, Motor Weakness, Normal Affect, Normal Mood, No Sensory Deficits Cerebellar Function: Normal Reflexes: Normal Skin: Dry, Pallor, Warm Lymphatic: No Adenopathy Was a procedure done? Was a procedure done?: No EKG EKG : Pulse Rate (adult): 74 [place]: Normal Cardiac Rhythm: NSR Block: RBBB Hypertrophy: LVH ST: Nonsp Differential Dx Considerations may include: Dehydration, sepsis, generalized weakness, electrolyte imbalance X-Ray, Labs, Meds, VS Vital Signs Date Time Temp Pulse Resp B/P (MAP) Pulse Ox O2 Delivery O2 Flow Rate FiO2 03/09/25 18:51 98.2 85 16 144/72 (96) 100 98.2 03/09/25 16:12 98.9 83 16 120/67 (84) 97 98.9 03/09/25 12:30 97.9 76 14 132/53 (79) 100 97.9 03/09/25 12:07 74 03/09/25 11:42 98.1 74 20 151/72 (98) 97 98.1 03/09/25 11:31 74 Lab Test 03/09/25 16:42 03/09/25 12:00 Range/Units Lactic Acid Level 1.7 2.7 *H 0.4-2.0 mmol/L White Blood Count 6.3 4.4-10.8 10^3/uL Red Blood Count 3.74 L 4.5-5.90 10^6/uL Hemoglobin 12.1 L 13.5-17.5 g/dL Hematocrit 34.6 L 41.0-53.0 % Mean Corpuscular Volume 92.6 80.0-100.0 fL Mean Corpuscular Hemoglobin 32.4 H 28.0-32.0 pg Mean Corpuscular Hemoglobin Concent 34.9 32.0-36.0 g/dL Red Cell Distribution Width 15.3 H 11.8-14.3 % Platelet Count 280 140-450 10^3/uL Mean Platelet Volume 7.6 6.9-10.8 fL Neutrophils (%) (Auto) 71.4 37.0-80.0 % Lymphocytes (%) (Auto) 16.0 10.0-50.0 % Monocytes (%) (Auto) 9.0 0.0-12.0 % Eosinophils (%) (Auto) 2.9 0.0-7.0 % Basophils (%) (Auto) 0.7 0.0-2.0 % Neutrophils # (Auto) 4.5 1.6-8.6 10 ^3/uL Lymphocytes # (Auto) 1.0 0.4-5.4 10 ^3/uL Monocytes # (Auto) 0.6 0-1.3 10 ^3/uL Eosinophils # (Auto) 0.2 0-0.8 10 ^3/uL Basophils # (Auto) 0 0-0.2 10 ^3/uL Nucleated Red Blood Cells 0.0 % Sodium Level 136 136-145 mmol/L Potassium Level 2.5 *L 3.5-5.1 mmol/L Chloride Level 96 L 98-107 mmol/L Carbon Dioxide Level 25 20-31 mmol/L Anion Gap 15 5-15 Blood Urea Nitrogen 58 H 9-23 mg/dL Creatinine 2.43 H 0.700-1.30 mg/dL Glomerular Filtration Rate Calc 27 >90 mL/min BUN/Creatinine Ratio 23.9 H 10.0-20.0 Serum Glucose 184 H 74-106 mg/dL Calcium Level 9.3 8.7-10.4 mg/dL Current Medications Medications (Trade) Dose Ordered Sig/Bandar Route Start Time Stop Time Status Last Admin Sodium Chloride 1,000 ml @ 150 mls/hr Q6H40M ONCE IV 03/09/25 11:45 03/09/25 18:24 DC 03/09/25 12:25 Potassium Bicarbonate (Klor-Con/Ef) 40 meq ONCE ONCE PO 03/09/25 13:15 03/09/25 13:23 DC 03/09/25 13:27 CHEST RADIOGRAPH IMPRESSION: No pulmonary airspace consolidation. IV Hep-Lock was established The patient was given normal saline as a bolus The patient is positive potassium with a significant decreased at 2.5 The patient's BUN is 58 the creatinine is 2.43 At this time, the patient was given potassium p.o. The patient will also be given a K rider The patient is being admitted to the hospitalist The patient's CBC is within normal limits The chemistry panel is within normal limits. We did receive authorization from the health plan for admission to our facility The patient is considered unstable for transfer Images Reviewed?: Images reviewed and evaluated by me Time of 1ST Reevaluation: 12:07 Reevaluation 1ST: Improved Patient Education/Counseling: Diagnosis, Treatment, Prognosis Family Education/Counseling: No Family Present SEPSIS Sepsis Screen Date sepsis recognized/suspect: Mar 09, 2025 Time Sepsis recognized/suspect: 1129 Recent Procedure: No On Antibiotic Therapy: No Respiratory Rate >20: No Heart Rate >90: No Temp<36 C (96.8 F) or >38.3 C: No SBP <90 or MAP <65 mmHG: No New Acute Mental Status Change: No Is the patient on CPAP, BIPAP,: No Physician Orders Electrocardigram (03/09/25 11:33) Chest Portable (03/09/25 11:37) Urinalysis (03/09/25 11:37) Heplock Iv (03/09/25 11:37) Licsw (03/09/25 11:37) Blood Pressure (03/09/25 11:37) Pulse Oximetry (03/09/25 11:37) Blood Culture (03/09/25 11:37) Vital Signs Date Time Temp Pulse Resp B/P (MAP) Pulse Ox O2 Delivery O2 Flow Rate FiO2 03/09/25 18:51 98.2 85 16 144/72 (96) 100 98.2 03/09/25 16:12 98.9 83 16 120/67 (84) 97 98.9 03/09/25 12:30 97.9 76 14 132/53 (79) 100 97.9 03/09/25 12:07 74 03/09/25 11:42 98.1 74 20 151/72 (98) 97 98.1 03/09/25 11:31 74 Laboratory Tests Test 03/09/25 12:00 03/09/25 16:42 Lactic Acid Level 2.7 mmol/L (0.4-2.0) *H 1.7 mmol/L (0.4-2.0) White Blood Count 6.3 10^3/uL (4.4-10.8) Medications Medications Dose Ordered Sig/Bandar Route Start Time Stop Time Status Last Admin Dose Admin Potassium Bicarbonate 40 meq ONCE ONCE PO 03/09/25 13:15 03/09/25 13:23 DC 03/09/25 13:27 Sodium Chloride 1,000 ml @ 150 mls/hr Q6H40M ONCE IV 03/09/25 11:45 03/09/25 18:24 DC 03/09/25 12:25 Departure 1 Departure Time of Disposition: 19:28 Impression: Primary Impression: Hypokalemia Additional Impressions: Near syncope Autonomic dysfunction Disposition: 09 ADMITTED INPATIENT Admit to: Tele Condition: Fair Critical Care Note Critical Care Time?: Yes (35 min-critical care time only) Stability Stability form required: Yes Unstable for transfer: ED Physician Assesment (Clinical assesment) Heart Score Heart Score: Heart Score Response (Comments) Value History N/A 0 EKG N/A 0 Age N/A 0 Risk Factors N/A 0 Troponin N/A 0 Total 0 I personally scribed for ROSS VEGA MD ([email or web address]) on 03/09/25 at 13:42. Electronically submitted by Rikki Dubose ([email or web address]). ORSS VEGA MD Mar 09, 2025 12:07
[2025-03-09 12:21] LABS: Hematocrit 34.6 % (41.0-53.0); Hemoglobin 12.1 g/dL (13.5-17.5); Mean Corpuscular Hemoglobin 32.4 pg (28.0-32.0); Mean Corpuscular Volume 92.6 fL (80.0-100.0); Nucleated Red Blood Cells % 0.0 %
[2025-03-09] MEDS: SODIUM CHLORIDE 0.9% 1,000 ML IV ONE (12:25)
[2025-03-09 12:30] LABS: Anion Gap 15 (5-15); Calcium 9.3 mg/dL (8.7-10.4); Carbon Dioxide 25 mmol/L (20-31)
[2025-03-09 12:33] LABS: Chloride 96 mmol/L (98-107); Sodium 136 mmol/L (136-145)
[2025-03-09 12:34] LABS: Potassium 2.5 mmol/L (3.5-5.1)
[2025-03-09 12:35] LABS: BUN/Creatinine Ratio 23.9 (10.0-20.0)
[2025-03-09 12:36] LABS: Blood Urea Nitrogen 58 mg/dL (9-23); Glucose 184 mg/dL (74-106)
--- NOTE | 2025-03-09 12:40 | DVH ---
CHEST RADIOGRAPH Indication: weakness Technique: Single frontal view of the chest was obtained Comparison: None FINDINGS: The cardiac silhouette is unremarkable. The lungs demonstrate no pulmonary airspace consolidation. Th e pulmonary vasculature is unremarkable. There is no pleural effusion.. There is no pneumothorax. Ol d right humeral head fracture. IMPRESSION: No pulmonary airspace consolidation.
[2025-03-09 12:43] LABS: Lactic Acid w/Reflex 2.7 mmol/L (0.4-2.0)
[2025-03-09] MEDS: POTASSIUM CHL 20 Meq TABLET PO ONE (12:57)
[2025-03-09] MEDS: POTASSIUM EFFERVESENT TAB 25 MEQ PO ONE (13:27)
[2025-03-09] MEDS: POTASSIUM CHL 20MEQ/100ML 100 ML IV ONE (20:20)
[2025-03-09 21:04] VITALS: PULSE 87; RESP 12; O2SAT 100
[2025-03-10] MEDS ORDERED: NITROGLYCERIN 0.4 MG SL TAB SL PRN
[2025-03-10] MEDS ORDERED: ACETAMINOPHEN 325 MG TAB PO PRN
[2025-03-10] MEDS ORDERED: MORPHINE SULFATE INJ 2 MG/ml SYRG IV PRN
--- NOTE | 2025-03-10 01:00 | DVHHP2 ---
History of Present Illness History of Present Illness Patient is 74 years old male with past medical history of hypertension, diabetes mellitus 2, CKD, peripheral artery disease, hyperlipidemia, right foot osteomyelitis, chronic bilateral leg wound, history of testicular cancer diagnosed in 1993, status post left orchiectomy came with a complaint of presyncope. As per patient since he got discharged from [facility] on 03/04/25 he has been feeling dizzy and unsteady when walking. Patient also reported feeling weak and also heaviness of the left lower extremity for last couple of days since he got discharged from the hospital. Patient also reported having 1 episode of vomiting yesterday with food content, no blood. Because of the the dizziness and heaviness of the left leg patient called 911 and EMS arrived. Patient was recently discharged from [facility] with the diagnosis of right lower extremity cellulitis and osteomyelitis of right great toe, status post incision and drainage by Dr. Valdez. During hospital course patient was treated With the Zosyn and vancomycin and discharged with a oral ciprofloxacin, doxycycline and rifampin recommended by infectious disease doctor Dr. Colon. Initial lab workup revealed hypokalemia with potassium 2.5, serum creatinine 2.43, BUN 58, lactic acidosis with lactic acid 2.7, troponin I 531. UDS Negative. EKG revealed RBBB with ischemic changes in the chest leads-no previous EKG to compare. Past Medical History hypertension, diabetes mellitus, CKD, peripheral artery disease, hyperlipidemia, right foot osteomyelitis, chronic bilateral leg wound, history of testicular cancer diagnosed in 1993, status post left orchiectomy Past Surgical History Left orchiectomy due to testicular carcinoma, Tonsillectomy, right great toe incision and drainage due to osteomyelitis, cataract surgery Past Social History Patient lives at home, denies smoking/alcoholism/drug abuse Review of Systems Review of Systems Allergy- NKDA Patient was seen today at the bedside. Cardiovascular- deny acute chest pain or shortness of breath or cough or palpitation Respiratory denies cough or short of breath or wheezing Gastrointestinal- denies any rectal bleeding, Musculoskeletal-denies acute joint swelling or redness Neurological- denies acute dysarthria, dysphagia, change in vision Psychiatry- denies depression or SI or HI Skin- denies acute rash or purpura Allergies: Coded Allergies: NO KNOWN ALLERGIES (Unverified , 06/12/21) Medications Current Medications Medications Dose Ordered Sig/Bandar Route Start Time Stop Time Status Last Admin Dose Admin Sodium Chloride 10 ml Q8HR IV 03/10/25 06:00 Acetaminophen 650 mg Q6HP PRN PO 03/10/25 00:00 Nitroglycerin 0.4 mg Q5MINP PRN SL 03/10/25 00:00 Morphine Sulfate 2 mg Q30M PRN IV 03/10/25 00:00 Exam Vital Signs Vital Signs Date Time Temp Pulse Resp B/P (MAP) Pulse Ox O2 Delivery O2 Flow Rate FiO2 03/09/25 22:00 78 16 156/60 (92) 100 03/09/25 21:04 Room Air* 0 21 03/09/25 20:45 97.6 97.6 Exam General examination- awake, alert, oriented, not in acute distress HEENT- PEERLA, no acute nasal discharge Cardiovascular- S1-S2 audible, rate and rhythm regular, no murmur Respiratory- CTAB, no wheeze or rhonchi Gastrointestinal-nontender, bowel sound+. Nondistended Musculoskeletal-no acute joint swelling or tenderness or redness Lower extremity- bilateral lower extremity multiple wound, wound on the right 2, absent bilateral peripheral arterial dorsalis, bilateral leg swelling++ Neurological- cranial nerves intact, no acute dysarthria or dysphagia Psychiatry- denies depression or SI or HI Skin- no acute rash or purpura Labs/Xrays Labs Test 03/09/25 16:42 03/09/25 12:00 Range/Units Lactic Acid Level 1.7 0.4-2.0 mmol/L White Blood Count 6.3 4.4-10.8 10^3/uL Red Blood Count 3.74 L 4.5-5.90 10^6/uL Hemoglobin 12.1 L 13.5-17.5 g/dL Hematocrit 34.6 L 41.0-53.0 % Mean Corpuscular Volume 92.6 80.0-100.0 fL Mean Corpuscular Hemoglobin 32.4 H 28.0-32.0 pg Mean Corpuscular Hemoglobin Concent 34.9 32.0-36.0 g/dL Red Cell Distribution Width 15.3 H 11.8-14.3 % Platelet Count 280 140-450 10^3/uL Mean Platelet Volume 7.6 6.9-10.8 fL Neutrophils (%) (Auto) 71.4 37.0-80.0 % Lymphocytes (%) (Auto) 16.0 10.0-50.0 % Monocytes (%) (Auto) 9.0 0.0-12.0 % Eosinophils (%) (Auto) 2.9 0.0-7.0 % Basophils (%) (Auto) 0.7 0.0-2.0 % Neutrophils # (Auto) 4.5 1.6-8.6 10 ^3/uL Lymphocytes # (Auto) 1.0 0.4-5.4 10 ^3/uL Monocytes # (Auto) 0.6 0-1.3 10 ^3/uL Eosinophils # (Auto) 0.2 0-0.8 10 ^3/uL Basophils # (Auto) 0 0-0.2 10 ^3/uL Nucleated Red Blood Cells 0.0 % Sodium Level 136 136-145 mmol/L Potassium Level 2.5 *L 3.5-5.1 mmol/L Chloride Level 96 L 98-107 mmol/L Carbon Dioxide Level 25 20-31 mmol/L Anion Gap 15 5-15 Blood Urea Nitrogen 58 H 9-23 mg/dL Creatinine 2.43 H 0.700-1.30 mg/dL Glomerular Filtration Rate Calc 27 >90 mL/min BUN/Creatinine Ratio 23.9 H 10.0-20.0 Serum Glucose 184 H 74-106 mg/dL Calcium Level 9.3 8.7-10.4 mg/dL Assessment/Plan Assessment/Plan Assessment and plan #Sepsis Likely due to Osteomyelitis Severe hypokalemia AD on CKD likely due to VMN NSTEMI likely type 1 Presyncope Osteomyelitis of the right foot Bilateral lower extremity cellulitis Peripheral arterial disease Lactic acidosis Hypertension Diabetes mellitus type 2 Hyperlipidemia Chronic bilateral leg wound History of left testicular carcinoma, status post left orchiectomy BPH Plan NS IV @100 ml/h s/p IV potassium Continue IV heparin drip as per pharmacy protocol for ACS c/w IV Cefepime and vancomycin as prescribed Continue amlodipine 5 mg p.o. daily Continue atorvastatin 40 mg p.o. daily Continue aspirin 81 mg p.o. daily Continue carvedilol 12.5 mg p.o. b.i.d. Continue Lasix 40 mg p.o. daily Continue Flomax 0.4 mg p.o. daily pending Blood CS Monitor BNP Ordered orthostatic vitals Ordered cardiology consult for further evaluation and care Pending echo 2D Goals of care, Code status- Full Code ; discussed with >15 minutes PUD prophylaxis: Pantoprazole DVT prophylaxis: Lovenox Plan discussed with Dr. Daugherty , nursing staff, Total time spent on patient evaluation, chart review, assessment and plan, discussion discussion >35 minutes Plan discussed with: Patient, Other (RN) My Orders Orders - MATTHEW NICOLE Procedure Category Date Status Time Admit ADMIT 03/09/25 Transmitted 23:50 Code Status CODE 03/09/25 Transmitted 23:50 Sodium Chloride Lock PHA 03/10/25 In Process (Saline Lock Ns) 06:00 Complete Blood Count LAB 03/10/25 Logged 04:00 Comprehensive LAB 03/10/25 Logged Metabolic Panel 04:00 Acetaminophen Tablet PHA 03/10/25 In Process (Tylenol Tablet) 00:00 Nitroglycerin PHA 03/10/25 In Process Sublingual (Ntrostat 00:00 Morphine Sulfate PHA 03/10/25 In Process Injection 00:00 Notify Of Changes SALVADOR 03/09/25 In Process From Base 23:50 Siebel Developer For SALVADOR 03/09/25 In Process 24 Hours 23:50 Date of Service: Mar 09, 2025 Billing Provider: JORGE L DAUGHERTY MD Common Visit Codes: 76107-YJULTAZ INP/OBS CARE (HIGH) Secondary Visit Codes: 20949-KBCSVKIF CARE PLAN 30 MINUTES MATTHEW NICOLE Mar 10, 2025 01:00
[2025-03-10 02:00] LABS: Urine Protein, UAD Negative (Negative)
[2025-03-10 02:54] LABS: Amphetamine Screen, Urine Neg (NEGATIVE); Barbiturate Scree,Urine Neg (NEGATIVE); Benzodiazephine Screen, Urine Neg (NEGATIVE); Cannabinoid Screen, Urine Neg (NEGATIVE); Cocaine Screen, Urine Neg (NEGATIVE); Opiate Scree,Urine Neg (NEGATIVE); Phencyclidine Screen, Urine Neg (NEGATIVE)
--- NOTE | 2025-03-10 03:09 | DVH ---
Clinical History: Bilateral leg swelling Comparison: None Technique: Duplex Doppler evaluation of the deep venous system of the right and left lower extremity from the co mmon femoral vein to the popliteal vein including color Doppler and spectral/pulsed waveform analysis was performed. Findings: The common femoral vein demonstrates appropriate compressibility and waveform variability. There is compressibility/patency of the great saphenous vein at the proximal thigh. The femoral vein demonstrates appropriate compressibility and waveform variability. The deep femoral vein demonstrates appropriate compressibility and waveform variability. The popliteal vein demonstrates appropriate compressibility and waveform variability. There is normal compressibility at the tibioperoneal trunk. Impression: 1. No bilateral deep venous thrombosis. 2. If clinical concern/symptoms persist or worsen, short-interval follow-up study is suggested.
[2025-03-10 04:15] LABS: Hematocrit 34.1 % (41.0-53.0); Hemoglobin 11.9 g/dL (13.5-17.5); Mean Corpuscular Hemoglobin 32.5 pg (28.0-32.0); Mean Corpuscular Volume 93.0 fL (80.0-100.0); Nucleated Red Blood Cells % 0.1 %
[2025-03-10 04:22] LABS: INR 1.2 (0.9-1.15); Partial Thromboplastin Time 26.8 SEC (24.5-34.5); Prothrombin Time 12.5 sec (9.3-11.8)
[2025-03-10 04:36] LABS: Alanine Aminotransferase 15 U/L (7-40); Albumin 3.6 g/dL (3.2-4.8); Alkaline Phosphatase 71 U/L (46-116); Anion Gap 13 (5-15); BUN/Creatinine Ratio 27.0 (10.0-20.0); Bilirubin, Total 0.9 mg/dL (0.2-1.0); Calcium 9.0 mg/dL (8.7-10.4); Carbon Dioxide 27 mmol/L (20-31); Chloride 98 mmol/L (98-107); Glucose 99 mg/dL (74-106); Sodium 138 mmol/L (136-145); Total Protein 6.8 g/dL (5.7-8.2)
[2025-03-10] MEDS: HEPARIN SODIUM (PORCINE) 5000 UNITS/ML 1ML VIAL IV ONE (04:44)
[2025-03-10 04:48] LABS: Bilirubin, Direct 0.5 mg/dL (<0.3); Blood Urea Nitrogen 63 mg/dL (9-23); Magnesium 1.3 mg/dL (1.6-2.6); Potassium 2.6 mmol/L (3.5-5.1)
[2025-03-10] MEDS: HEPARIN DRIP/D5W 100UNITS/ML 250 ML IV SCH ×3 (04:51→22:43)
[2025-03-10] MEDS: POTASSIUM CHL 20MEQ/100ML 100 ML IV SCH (05:47)
[2025-03-10] MEDS: MAGNESIUM SULFATE 1GM/100ML 100 ML IV SCH (06:01)
[2025-03-10] MEDS: SODIUM CHLOR 0.9% PF (SALINE LOCK) 10ML VIAL/SYR IV SCH (06:01)
[2025-03-10] MEDS: DOXYCYCLINE 100 MG TAB/CAP PO SCH (06:33)
[2025-03-10] MEDS ORDERED: metroNIDAZOLE 500 MG TAB PO SCH (07:51)
[2025-03-10 08:30] VITALS: PULSE 85; RESP 12; O2SAT 99
[2025-03-10 09:14] VITALS: RESP 18; O2SAT 97
[2025-03-10] MEDS ORDERED: SODIUM CHLORIDE 0.9% 1,000 ML IV SCH (09:30)
[2025-03-10] MEDS: TAMSULOSIN HYDROCHLORIDE 0.4 MG CAP PO ONE (09:30)
[2025-03-10] MEDS ORDERED: MANNITOL FTV 25% 12.5 GM/50 ML 100 ML IV ONE (09:30)
[2025-03-10] MEDS: SODIUM CHLORIDE 0.9% 1,000 ML IV SCH (09:45)
--- NOTE | 2025-03-10 09:53 | DVHPNRES ---
Progress Note Date Seen: Mar 10, 2025 Resident Creating Document: FABRICIO CALVIN RESIDENT Has the PT tested + for MRSA If YES, has PT been informed?: No Medical Necessity Reason Pt with a Central, PICC or Fol: No Subjective Review of Systems History of Present Illness Patient is 74 years old male with past medical history of hypertension, diabetes mellitus 2, CKD, peripheral artery disease, hyperlipidemia, right foot osteomyelitis, chronic bilateral leg wound, history of testicular cancer diagnosed in 1993, status post left orchiectomy came with a complaint of presyncope. As per patient since he got discharged from [facility] on 03/04/25 he has been feeling dizzy and unsteady when walking. Patient also reported feeling weak and also heaviness of the left lower extremity for last couple of days since he got discharged from the hospital. Patient also reported having 1 episode of vomiting yesterday with food content, no blood. Because of the the dizziness and heaviness of the left leg patient called 911 and EMS arrived. Patient was recently discharged from [facility] with the diagnosis of right lower extremity cellulitis and osteomyelitis of right great toe, status post incision and drainage by Dr. Valdez. During hospital course patient was treated With the Zosyn and vancomycin and discharged with a oral ciprofloxacin, doxycycline and rifampin recommended by infectious disease doctor Dr. Colon. Initial lab workup revealed hypokalemia with potassium 2.5, serum creatinine 2.43, BUN 58, lactic acidosis with lactic acid 2.7, troponin I 531. UDS Negative. EKG revealed RBBB with ischemic changes in the chest leads-no previous EKG to compare. 03/10/2025 The patient was seen at bedside. He reports ongoing left leg heaviness and discomfort, particularly with ambulation or standing. Denies chest pain, shortness of breath, or palpitations. Continues to feel weak and mildly nauseated but is tolerating oral intake. He is aware of his recent elevated troponin levels and understands the working diagnosis of NSTEMI. He confirms compliance with medications and denies any bleeding, melena, hematuria, or confusion. Past Medical History hypertension, diabetes mellitus, CKD, peripheral artery disease, hyperlipidemia, right foot osteomyelitis, chronic bilateral leg wound, history of testicular cancer diagnosed in 1993, status post left orchiectomy Past Surgical History Left orchiectomy due to testicular carcinoma, Tonsillectomy, right great toe incision and drainage due to osteomyelitis, cataract surgery Past Social History Patient lives at home, denies smoking/alcoholism/drug abuse Review of Systems Allergy- NKDA Patient was seen today at the bedside. Cardiovascular- deny acute chest pain or shortness of breath or cough or palpitation Respiratory denies cough or short of breath or wheezing Gastrointestinal- denies any rectal bleeding, Musculoskeletal-denies acute joint swelling or redness Neurological- denies acute dysarthria, dysphagia, change in vision Psychiatry- denies depression or SI or HI Skin- denies acute rash or purpura Allergies: Coded Allergies: NO KNOWN ALLERGIES (Unverified , 06/12/21) Objective vital signs Vital Sign Date Time Temp Pulse Resp B/P (MAP) Pulse Ox O2 Delivery O2 Flow Rate FiO2 03/10/25 08:00 87 03/10/25 07:30 98.0 12 157/61 (93) 99 98.0 03/09/25 21:04 Room Air* 0 21 Total Intake and Output 03/09/25 03/09/25 03/10/25 15:00 23:00 07:00 Intake Total 100 ml 18 ml Balance 100 ml 18 ml medications Current Medications Medications Dose Ordered Sig/Bandar Route Start Time Stop Time Status Last Admin Dose Admin Sodium Chloride 10 ml Q8HR IV 03/10/25 06:00 03/10/25 06:01 10 ML Acetaminophen 650 mg Q6HP PRN PO 03/10/25 00:00 Nitroglycerin 0.4 mg Q5MINP PRN SL 03/10/25 00:00 Morphine Sulfate 2 mg Q30M PRN IV 03/10/25 00:00 Amlodipine Besylate 5 mg DAILY PO 03/10/25 10:00 Aspirin 81 mg DAILY PO 03/10/25 10:00 Carvedilol 12.5 mg BID PO 03/10/25 10:00 Ciprofloxacin 500 mg BID PO 03/10/25 10:00 Acetaminophen/ Hydrocodone Bitart 1 tab BID PRN PO 03/10/25 01:15 Calcium/Vitamin D 1 tab BID PO 03/10/25 10:00 Doxycycline Monohydrate 100 mg BIDAC PO 03/10/25 07:00 Rifampin 300 mg BID PO 03/10/25 10:00 Atorvastatin Calcium 40 mg DAILY PO 03/10/25 10:00 Heparin Sodium/ Dextrose 250 ml @ 9 mls/hr Q24H IV 03/10/25 04:30 03/10/25 04:51 9 MLS/HR Metronidazole 500 mg Q8HR PO 03/10/25 07:51 Sodium Chloride 1,000 ml @ 100 mls/hr Q10H IV 03/10/25 09:45 Examination General: Awake, alert, NAD HEENT: PERRLA, no nasal discharge CV: RRR, no murmur Resp: Clear lungs bilaterally Abdomen: Soft, NT, ND, BS + Extremities: * 3+ bilateral pitting edema * Absent dorsalis pedis pulses * Multiple chronic ulcerations on right lower extremity * Left leg tenderness and heaviness persist Neuro: A&O 4, no focal deficit Skin: Cool BLE, no rash laboratory and microbiology Laboratory Tests 03/10/25 08:41 03/10/25 03:16 Test 03/10/25 03:16 Range/Units Serum Glucose 99 74-106 mg/dL PATIENT: RAJESH ELIAS ACCT: [id number] UNIT: [id number] : 1950 LOC: OVERFLOW ROOM / BED: [address] [place] [address] AGE / SEX: 74 / M ADM STATUS: ADM IN SERVICE 0118 ORDERING PHYSICIAN: MATTHEW NICOLE RESIDENT PROCEDURE(s): BLDVT - BiLat Lower DVT REASON: Bilateral leg swelling ORDER NUMBER(s): [id number], ACCESSION NUMBER(s): [id number] Clinical History: Bilateral leg swelling Comparison: None Technique: Duplex Doppler evaluation of the deep venous system of the right and left lower extremity from the common femoral vein to the popliteal vein including color Doppler and spectral/pulsed waveform analysis was performed. Findings: The common femoral vein demonstrates appropriate compressibility and waveform variability. There is compressibility/patency of the great saphenous vein at the proximal thigh. The femoral vein demonstrates appropriate compressibility and waveform variability. The deep femoral vein demonstrates appropriate compressibility and waveform variability. The popliteal vein demonstrates appropriate compressibility and waveform variability. There is normal compressibility at the tibioperoneal trunk. Impression: 1. No bilateral deep venous thrombosis. 2. If clinical concern/symptoms persist or worsen, short-interval follow-up study is suggested. ATED BY: FELA DUEÑAS MD DICTATED DATE/TIME: 03/10/25306 SIGNED BY: FELA DUEÑAS MD SIGNED DATE/TIME: 03/10/25306 CC: PATIENT: RAJESH ELIAS ACCT: [id number] UNIT: [id number] : 1950 LOC: ER ROOM / BED: / AGE / SEX: 74 / M ADM STATUS: REG ER SERVICE 1137 ORDERING PHYSICIAN: ROSS VEGA MD PROCEDURE(s): CXRP - CHEST PORTABLE REASON: weakness ORDER NUMBER(s): [id number], ACCESSION NUMBER(s): [id number] CHEST RADIOGRAPH Indication: weakness Technique: Single frontal view of the chest was obtained Comparison: None FINDINGS: The cardiac silhouette is unremarkable. The lungs demonstrate no pulmonary airspace consolidation. The pulmonary vasculature is unremarkable. There is no pleural effusion.. There is no pneumothorax. Old right humeral head fracture. IMPRESSION: No pulmonary airspace consolidation. ATED BY: RUTHIE DELCID MD DICTATED DATE/TIME: 03/09/25 1239 SIGNED BY: RUTHIE DELCID MD SIGNED DATE/TIME: 03/09/25 1239 Labs and/or images reviewed: Labs reviewed by me, Image(s) reviewed by me Problem List/Assessment/Plan Problem List/Assessment/Plan Assessment Non-ST Elevation Myocardial Infarction (NSTEMI), Type 1? Ongoing flat troponin elevation; ischemic ECG changes; no current chest pain Acute Kidney Injury on Chronic Kidney Disease, Stage 3b? Cr 2.33, BUN 63; likely multifactorial (hypoperfusion, sepsis, medications) Severe Hypokalemia, improving? Initial K? 2.5, now 3.2 with replacement Sepsis, resolved likely secondary to right foot osteomyelitis Chronic Osteomyelitis, right great toe, status post I&D? Chronic ulcers with confirmed bone involvement Peripheral Arterial Disease with Chronic Critical Limb Ischemia? Absent DP pulses, ulcers, BLE edema Chronic Diastolic Heart Failure with volume overload? BNP 289, BLE edema, reduced mobility Hypertension, uncontrolled? 157/61 mmHg Type 2 Diabetes Mellitus, without current DKA or HHS Hyperlipidemia History of left testicular carcinoma, s/p orchiectomy (1993) BPH Lactic acidosis (resolved) Left lower extremity discomfort, possibly neurovascular Labs and Imaging K+ improved to 3.2 from 2.5 with ongoing oral/IV replacement Cr 2.33 (baseline CKD), BUN 63 Troponin: Persistently elevated (peak 635 ng/L, trending flat) BNP: 289 pg/mL INR: 1.24 APTT: 137 sec (elevated on heparin) UA: No infection or hematuria CXR: No consolidation Doppler BLE: No DVT Blood Culture: No growth at 24h Plan Cardiovascular / ACS / NSTEMI Given comorbidities, and significant electrocardiogram, highly suspicious for NSTEMI type 1. The patient is also known to have peripheral arterial disease and can benefit from a peripheral angiogram. Given the patient's poor renal function, procedures should be staged at different times. * Continue Heparin drip per ACS protocol and pharmacy to guide * Continue Aspirin 81 mg PO daily * Continue Atorvastatin 40 mg PO daily * Monitor troponins, EKG * ECHO pending for EF/function * Cardiology consult for further eval (follow their recommendations) * Monitor for bleeding (check Hgb, stool)/ Monitor coagulation profile Renal / Fluids * Continue IV NS @ 100 mL/hr (avoid overhydration) * Monitor renal function daily * Avoid nephrotoxins Electrolytes * Continue Oral KCl 50 mEq PO today * Hold IV K for now unless symptoms recur * Recheck BMP/K+ q6h * Monitor magnesium and replace if <2.0 Infectious Disease / Sepsis / Osteomyelitis * Continue Vancomycin + Cefepime (documented osteo and high-risk skin ulcers) * Podiatry consult placed * Monitor for systemic signs of infection * Blood cultures negative so far (24h) * Continue wound care and reassess need for debridement or surgery Neurology * Monitor for recurrent presyncope * Orthostatic vitals * R/O neurogenic claudication if persistent Peripheral Vascular / Edema / Wound Care * Duplex negative for DVT * Continue SCDs + elevation of legs * Continue Furosemide 40 mg IV once for today * Wound care daily * Avoid aggressive compression given PAD Prescribed pregablin Endocrine * Monitor glucose, target FS <180 * No insulin needed currently * Reassess A1c Psych / Functionality / Mobility * Alert, cooperative Prophylaxis * DVT: SCD * PUD: Pantoprazole 40 mg IV daily Goals of care, Code status- Full Code ; discussed with >15 minutes Plan discussed with Attending Physician , nursing staff, Total time spent on patient evaluation, chart review, assessment and plan, discussion discussion >35 minutes Plan discussed with: Patient Date of Service: Mar 10, 2025 Billing Provider: SHWETA CONRAD MD Common Visit Codes: [id number] INP/OBS CARE(HIGH) FABRICIO CALVIN RESIDENT Mar 10, 2025 09:53 SHWETA CONRAD MD Mar 21, 2025 02:35
[2025-03-10] MEDS ORDERED: rifAMPin 300 MG CAP PO SCH (10:00)
[2025-03-10] MEDS ORDERED: ATORVASTATIN 20 MG TAB PO SCH (10:00)
[2025-03-10] MEDS: ATORVASTATIN 20 MG TAB PO SCH (10:00)
[2025-03-10] MEDS: CARVEDILOL 12.5 MG TAB PO SCH (10:00)
[2025-03-10] MEDS ORDERED: FUROSEMIDE 40 MG TAB PO SCH (10:00)
[2025-03-10] MEDS ORDERED: CIPROFLOXACIN HCL 500 MG TAB PO SCH (10:00)
[2025-03-10] MEDS: ASPirin-EC 81 mg tab PO SCH (10:00)
[2025-03-10] MEDS: CALCIUM W/VIT D (600MG/400IU) TAB PO SCH (10:00)
--- NOTE | 2025-03-10 10:08 | DVHINCON2 ---
HALEY CISNEROS [facility] 03/10/25 1008: Date Seen: Mar 10, 2025 Referring Physician MD [facility] resident Reason for Consultation NSTEMI History of Present Illness This is a 74-year-old male patient who presents to the emergency room with chief complaint of generalized weakness, left leg pain, nausea, and decreased appetite. The patient was recently seen and discharged from this facility on 03/04/25 after being diagnosed with right great toe osteomyelitis and severe peripheral artery disease. During the previous admission, the patient underwent a right foot I&D to bone. Since his discharge, the patient reports feeling decreased appetite and overall generalized weakness. Cardiology has been consulted at this time for elevated troponin. The patient denies any cardiac symptoms. Initial twelve lead electrocardiogram reveals normal sinus rhythm with right bundle branch block and nonspecific ST segment changes to gene lateral leads. Initial troponin level of 635ng/L with flat trend thereafter. Significant past medical history includes hypertension, dyslipidemia, severe peripheral arterial disease, chronic kidney disease, type 2 diabetes mellitus, and left testicular cancer status post left orchiectomy in 1993. The patient states he recently seen a reduction furnace operator in [place] and underwent a stress test, echocardiogram, and Holter monitor. He is unsure of the results as he was unable to make his follow up appointment because he was hospitalized at the time of his appointment. He reports his primary sent him for a full cardiac workup, and he is unsure of the reason why. Past Medical History Past medical history reviewed. No other significant than mentioned above. Past Surgical History Left orchiectomy in 1993 Bilateral cataract surgery Family History: Cerebrovascular accident (CVA) G8 MOTHER FH: CABG (coronary artery bypass surgery) G8 FATHER FH: liver disease G8 FATHER Hepatitis C G8 FATHER Family History Family history reviewed. Social History Denies the use of tobacco, alcohol or illicit drugs. Allergies: Coded Allergies: NO KNOWN ALLERGIES (Unverified , 06/12/21) Home Meds Active Scripts Metronidazole (Flagyl) 500 Mg Tab, 500 MG PO TID for 42 Days, #126 TAB Prov:MARITZA FARRAR MD 03/04/25 Hydrocodone-Acetaminophen (Hydrocodone Bitartrate/AC 5-325 mg) 1 Tab Tab, 1 TAB PO BID PRN, #40 TAB Prov:ADARSH WILLIS MD 03/04/25 Rifampin (Rifampin) 300 Mg Cap, 300 MG PO BID, #90 CAP Prov:ADARSH WILLIS MD 03/04/25 Ciprofloxacin Hcl (Cipro) 500 Mg Tab, 1 TAB PO BID, #90 TAB Prov:ADARSH WILLIS MD 03/04/25 Doxycycline (Monohydrate) (Doxycycline) 100 Mg Cap, 100 MG PO BIDAC, #90 CAP Prov:ADARSH WILLIS MD 03/04/25 Reported Medications Tamsulosin Hcl (Tamsulosin Hcl) 0.4 Mg Cap, 0.4 MG PO QPM for 30 Days, MG 02/24/25 Amlodipine Besylate (Amlodipine Besylate) 5 Mg Tab, 1 TAB PO DAILY 02/24/25 Furosemide (Furosemide) 40 Mg Tab, 1 TAB PO DAILY 02/24/25 Aspirin (Aspirin Adult Low Dose) 81 Mg Tab, 1 TAB PO DAILY 02/24/25 Glipizide (Glipizide Er) 2.5 Mg Tab, TAB PO 02/24/25 Carvedilol (Carvedilol) 12.5 Mg Tab, TAB PO 02/24/25 Calcium Carbonate-Cholecalcife (Calcium 500-10 mg-Mcg) 1 Chw Chw, 1 TAB PO BID 02/24/25 Atorvastatin Calcium (ATORVASTATIN CALCIUM) 10 Mg Tab, 10 MG PO DAILY, TAB 06/13/21 Glipizide (Glipizide) 10 Mg Tab, 10 MG PO, TAB 06/13/21 Metformin HCl (Metformin Hydrochloride) 500 Mg/5 Ml Gwendolyn, 500 MG PO, ML 06/13/21 Current Medications Current Medications Medications (Trade) Dose Ordered Sig/Bandar Route PRN Reason Start Time Stop Time Status Last Admin Sodium Chloride (Saline Lock Ns) 10 ml Q8HR IV 03/10/25 06:00 03/10/25 06:01 Acetaminophen (Tylenol Tablet) 650 mg Q6HP PRN PO PAIN SCALE 1-3 OR TEMP>100.4 03/10/25 00:00 Nitroglycerin (Ntrostat Sublingual) 0.4 mg Q5MINP PRN SL FOR CHEST PAIN 03/10/25 00:00 Morphine Sulfate 2 mg Q30M PRN IV FOR CHEST PAIN 03/10/25 00:00 Amlodipine Besylate (Norvasc Tablet) 5 mg DAILY PO 03/10/25 10:00 Aspirin (Ecotrin Enteric Coated Tablet) 81 mg DAILY PO 03/10/25 10:00 Carvedilol (Coreg Tablet) 12.5 mg BID PO 03/10/25 10:00 Ciprofloxacin (Cipro Tablet) 500 mg BID PO 03/10/25 10:00 Furosemide (Lasix Tablet) 40 mg DAILY PO 03/10/25 10:00 03/10/25 05:37 DC Acetaminophen/ Hydrocodone Bitart ([place] 5/325MG Tab) 1 tab BID PRN PO PAIN SCALE 4-6 03/10/25 01:15 Tamsulosin HCl (Flomax) 0.4 mg QPM PO 03/10/25 18:00 03/10/25 09:30 DC Atorvastatin Calcium (Lipitor) 10 mg DAILY PO 03/10/25 10:00 03/10/25 02:24 DC Calcium/Vitamin D (Oscal W/Vit D Tablet) 1 tab BID PO 03/10/25 10:00 Doxycycline Monohydrate (Vibramycin Tablet) 100 mg BIDAC PO 03/10/25 07:00 Rifampin 300 mg BID PO 03/10/25 10:00 Atorvastatin Calcium (Lipitor) 40 mg DAILY PO 03/10/25 10:00 Heparin Sodium/ Dextrose 250 ml @ 9 mls/hr Q24H IV 03/10/25 04:30 03/10/25 04:51 Potassium Chloride 100 ml @ 50 mls/hr Q2H IV 03/10/25 05:30 03/10/25 09:29 DC 03/10/25 08:38 Magnesium Sulfate/ Dextrose 100 ml @ 100 mls/hr Q1HR IV 03/10/25 06:00 03/10/25 07:59 DC 03/10/25 07:45 Metronidazole (Flagyl Tablet) 500 mg Q8HR PO 03/10/25 07:51 Sodium Chloride 1,000 ml @ 100 mls/hr Q10H IV 03/10/25 09:30 03/10/25 09:30 DC Tamsulosin HCl (Flomax) 0.4 mg QPM PO 03/10/25 18:00 03/10/25 09:31 DC Sodium Chloride 1,000 ml @ 100 mls/hr Q10H IV 03/10/25 09:45 Review of Systems Constitutional: Generalized weakness Ears, Nose, & Throat: No symptom reported Eyes: No symptom reported Neurological: No symptoms reported Pulmonary/Respiratory: No symptoms reported Cardiovascular: No symptom reported Gastrointestinal: Nausea, decreased appetite Genitourinary: No symptom reported Musculoskeletal: Left leg pain Skin: No symptom reported Psychiatric: No symptom reported Endocrine: No symptom reported Hematologic/Lymphatic: No symptom reported Vital Signs Vital Signs Date Time Temp Pulse Resp B/P (MAP) Pulse Ox O2 Delivery O2 Flow Rate FiO2 03/10/25 08:00 87 03/10/25 07:30 98.0 12 157/61 (93) 99 98.0 03/09/25 21:04 Room Air* 0 21 Physical Exam General Appearance: Cooperative. No acute distress Pulmonary/Respiratory: Clear, bilateral breaths sounds. Cardiovascular/Chest: Regular rate and rhythm. Peripheral Pulses: 2+ Radial (R). 2+ Radial (L). Unable to palpate dorsalis pedis pulses Abdominal Exam: Normal bowel sounds. Ankle Exam: 3+ pitting edema Lower extremities: 3+ pitting edema Neuro/Mental Status: A/OX4, coherent. Thoughts/Psych: Normal thought pattern. Appropriate mood and affect. Good judgment and insight. Appearance: No acute distress. Skin Exam: Bilateral lower extremities cool to touch. Multiple open ulcers to bilateral lower extremities Labs/Diagnostic Data Labs Test 03/10/25 08:41 03/10/25 05:03 03/10/25 03:16 03/10/25 00:45 Range/Units Potassium Level 2.9 L 3.5-5.1 mmol/L Magnesium Level 2.1 1.6-2.6 mg/dL Vitamin B12 Level 808 211-911 pg/mL Vitamin D 25-Hydroxy 56.4 30.0-100 ng/mL Folic Acid 15.13 >5.38 ng/mL White Blood Count 7.2 4.4-10.8 10^3/uL Red Blood Count 3.67 L 4.5-5.90 10^6/uL Hemoglobin 11.9 L 13.5-17.5 g/dL Hematocrit 34.1 L 41.0-53.0 % Mean Corpuscular Volume 93.0 80.0-100.0 fL Mean Corpuscular Hemoglobin 32.5 H 28.0-32.0 pg Mean Corpuscular Hemoglobin Concent 34.9 32.0-36.0 g/dL Red Cell Distribution Width 15.3 H 11.8-14.3 % Platelet Count 262 140-450 10^3/uL Mean Platelet Volume 7.7 6.9-10.8 fL Neutrophils (%) (Auto) 67.3 37.0-80.0 % Lymphocytes (%) (Auto) 14.9 10.0-50.0 % Monocytes (%) (Auto) 11.4 0.0-12.0 % Eosinophils (%) (Auto) 5.4 0.0-7.0 % Basophils (%) (Auto) 1.0 0.0-2.0 % Neutrophils # (Auto) 4.8 1.6-8.6 10 ^3/uL Lymphocytes # (Auto) 1.1 0.4-5.4 10 ^3/uL Monocytes # (Auto) 0.8 0-1.3 10 ^3/uL Eosinophils # (Auto) 0.4 0-0.8 10 ^3/uL Basophils # (Auto) 0.1 0-0.2 10 ^3/uL Nucleated Red Blood Cells 0.1 % Prothrombin Time 12.5 H 9.3-11.8 sec Prothrombin Time INR 1.20 H 0.9-1.15 Activated Partial Thromboplast Time 26.8 24.5-34.5 SEC Sodium Level 138 136-145 mmol/L Chloride Level 98 98-107 mmol/L Carbon Dioxide Level 27 20-31 mmol/L Anion Gap 13 5-15 Blood Urea Nitrogen 63 H 9-23 mg/dL Creatinine 2.33 H 0.700-1.30 mg/dL Glomerular Filtration Rate Calc 29 >90 mL/min BUN/Creatinine Ratio 27.0 H 10.0-20.0 Serum Glucose 99 74-106 mg/dL Calcium Level 9.0 8.7-10.4 mg/dL Total Bilirubin 0.9 0.2-1.0 mg/dL Direct Bilirubin 0.5 H <0.3 mg/dL Aspartate Amino Transferase (AST) 32 13-40 U/L Alanine Aminotransferase (ALT) 15 7-40 U/L Alkaline Phosphatase 71 46-116 U/L Troponin I High Sensitivity 609 *H </=54 ng/L B-Type Natriuretic Peptide 289.21 0-100 pg/mL Total Protein 6.8 5.7-8.2 g/dL Albumin 3.6 3.2-4.8 g/dL Thyroid Stimulating Hormone (TSH) 1.47 0.55-4.78 uIU/mL Urine Color Yellow Yellow Urine Clarity Clear Clear Urine pH 5.5 5.0-9.0 Urine Specific [place] 1.008 1.001-1.035 Urine Protein Negative Negative Urine Ketones Negative Negative Urine Blood Negative Negative /uL Urine Nitrite Negative Negative Urine Bilirubin Negative Negative Urine Urobilinogen Normal Negative mg/dL Urine Leukocyte Esterase Negative Negative /uL Urine RBC None seen 0 - 3 /hpf Urine Microscopic WBC < 1 0-3 /HPF Urine Squamous Epithelial Cells Few <5 /hpf Urine Bacteria None seen None Seen /hpf Urine Hyaline Casts Few 0 - 2 /lpf Urine Glucose Normal Normal mg/dL Urine Opiates Screen Neg NEGATIVE Urine Fentanyl Screen Neg NEGATIVE Urine Barbiturates Screen Neg NEGATIVE Urine Phencyclidine Screen Neg NEGATIVE Urine Amphetamines Screen Neg NEGATIVE Urine Benzodiazepines Screen Neg NEGATIVE Urine Cocaine Screen Neg NEGATIVE Urine Cannabinoids Screen Neg NEGATIVE Test 03/09/25 16:42 Range/Units Lactic Acid Level 1.7 0.4-2.0 mmol/L Assessment NSTEMI, possibly type 1 Hypertension Dyslipidemia Severe peripheral arterial disease Severe hypokalemia Sepsis Chronic kidney disease Right great toe osteomyelitis status post I&D to the bone Obesity Plan/Recommendation We will continue with the following plan/recommendations (Dr. Dudley): * Transthoracic echocardiogram to evaluate cardiac function * Continue heparin drip per ACS protocol---the patient currently denying any chest pain * HEART score: 8 points * TAMIR score: 4 points * Single antiplatelet therapy and lipid-lowering agent * Avoid nephrotoxic agents * Close Cardiac surveillance Case discussed with . The patient initially came in for left lower leg pain and was found to have elevated troponin. There are significant changes on the patient's electrocardiogram. Patient is denying any chest pain or cardiac symptoms at time of assessment. Given comorbidities, and significant electrocardiogram, highly suspicious for NSTEMI type 1. The patient is also known to have peripheral arterial disease and can benefit from a peripheral angiogram. Given the patient's poor renal function, procedures should be staged at different times. Thank you for allowing us to care for this patient. Please call with any questions or concerns. Critical care time spent: 44 minutes This medical document was created using an electronic medical record system with voice recognition software and computerized dictation system. Although this document has been carefully reviewed, there might still be some phonetic and typographical errors. Occasional wrong-word or ``sound-alike substitutions may have occurred due to the inherent limitations of voice recognition software. These areas are purely typographical due to imperfections of the software programs and do not reflect any compromise in the patient's medical care. Please read the chart carefully and recognize, using context, where these substitutions have occurred. Plan discussed with: Patient NYHA Physical activity limitations: NA Date of Service: Mar 10, 2025 Billing Provider: HALEY CISNEROS PERFORATING MACHINE OPERATOR Cardiology Common Codes: [id number] INP/OBS CARE (High) Cardiology Consultation Codes: [id number] CONSULT <45MIN JOSE DE JESUS DUDLEY MD 03/10/25 1828: Family History: Cerebrovascular accident (CVA) G8 MOTHER FH: CABG (coronary artery bypass surgery) G8 FATHER FH: liver disease G8 FATHER Hepatitis C G8 FATHER Allergies: Coded Allergies: NO KNOWN ALLERGIES (Unverified , 06/12/21) Home Meds Active Scripts Metronidazole (Flagyl) 500 Mg Tab, 500 MG PO TID for 42 Days, #126 TAB Prov:MARITZA FARRAR MD 03/04/25 Hydrocodone-Acetaminophen (Hydrocodone Bitartrate/AC 5-325 mg) 1 Tab Tab, 1 TAB PO BID PRN, #40 TAB Prov:ADARSH WILLIS MD 03/04/25 Rifampin (Rifampin) 300 Mg Cap, 300 MG PO BID, #90 CAP Prov:ADARSH WILLIS MD 03/04/25 Ciprofloxacin Hcl (Cipro) 500 Mg Tab, 1 TAB PO BID, #90 TAB Prov:ADARSH WILLIS MD 03/04/25 Doxycycline (Monohydrate) (Doxycycline) 100 Mg Cap, 100 MG PO BIDAC, #90 CAP Prov:ADARSH WILLIS MD 03/04/25 Reported Medications Tamsulosin Hcl (Tamsulosin Hcl) 0.4 Mg Cap, 0.4 MG PO QPM for 30 Days, MG 02/24/25 Amlodipine Besylate (Amlodipine Besylate) 5 Mg Tab, 1 TAB PO DAILY 02/24/25 Furosemide (Furosemide) 40 Mg Tab, 1 TAB PO DAILY 02/24/25 Aspirin (Aspirin Adult Low Dose) 81 Mg Tab, 1 TAB PO DAILY 02/24/25 Glipizide (Glipizide Er) 2.5 Mg Tab, TAB PO 02/24/25 Carvedilol (Carvedilol) 12.5 Mg Tab, TAB PO 02/24/25 Calcium Carbonate-Cholecalcife (Calcium 500-10 mg-Mcg) 1 Chw Chw, 1 TAB PO BID 02/24/25 Atorvastatin Calcium (ATORVASTATIN CALCIUM) 10 Mg Tab, 10 MG PO DAILY, TAB 06/13/21 Glipizide (Glipizide) 10 Mg Tab, 10 MG PO, TAB 06/13/21 Metformin HCl (Metformin Hydrochloride) 500 Mg/5 Ml Gwendolyn, 500 MG PO, ML 06/13/21 Plan/Recommendation pt presents with nstemi and RBBB ischemic TWI anteriorly suspcious for LAD ischemia and high grade lesion pt is very sick, and has CKD stage IV and non healing ulcer and likely severe pad (US likely underreports it_ pt understands hes a high risk pt but LHC is indicated , he is aware he may have worsening kidney disease he wishes to proceed Plan discussed with: Patient HALEY CISNEROS Mar 10, 2025 10:08 JOSE DE JESUS DUDLEY MD Mar 10, 2025 18:28
[2025-03-10] MEDS ORDERED: VANCOMYCIN PER PHARMACY 0 MG IV SCH (11:00)
[2025-03-10 12:07] LABS: INR 1.24 (0.9-1.15); Prothrombin Time 12.9 sec (9.3-11.8)
[2025-03-10 12:32] LABS: Partial Thromboplastin Time 137.2 SEC (24.5-34.5)
--- NOTE | 2025-03-10 12:40 | CONS ---
Pharmacy Clinical Information: HEPARIN DRIP CURRENTLY STOPPED DUE TO APTT = 137.2 RE-START HEPARIN DRIP AT 1330 AT RATE 600 UNITS/HR NEXT APTT DRAW SCHEDULED FOR 1930 PER RX PROTOCOL KENNETH BRIDGES PHARMACIST Mar 10, 2025 12:40
[2025-03-10 12:50] VITALS: BP 102/59; PULSE 77; RESP 20; TEMP 98.4; O2SAT 97
[2025-03-10] MEDS: CEFEPIME 2GM/50ML NS 50 ML IV ONE (12:54)
--- NOTE | 2025-03-10 13:05 | ECG ---
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
[2025-03-10] MEDS: FUROSEMIDE 40 MG/4 ML VIAL IV ONE (14:00)
[2025-03-10] MEDS: VANCOMYCIN 1.5GM/300ML 300 ML IV ONE (15:09)
[2025-03-10 16:47] VITALS: BP 147/62; PULSE 74; RESP 20; TEMP 97.9; O2SAT 96
[2025-03-10] MEDS: POTASSIUM CHL 20 Meq TABLET PO ONE (16:50)
[2025-03-10] MEDS ORDERED: TAMSULOSIN HYDROCHLORIDE 0.4 MG CAP PO SCH ×2 (18:00)
--- NOTE | 2025-03-10 18:35 | DVHSR ---
APPROVED REPORT EXAM: Two-dimensional and M-mode echocardiogram with Doppler and color Doppler. Blood Pressure: 158/69 mmHg INDICATION NSTEMI RISK FACTORS Height: 5' 10", Weight: 169 DIMENSIONS LVDd4.6 (3.8-5.7cm)LA (2D)3.8 (1.9-4.0cm)Aortic Root3.6 (2.0-3.7cm) LVDs3.2 (2.5-4.0cm)LA (MM) (1.9-4.0cm)Aortic Cusp Exc1.8 (1.5-2.0cm) EF (%) 57.0 (55-70%)Rt. Atrium3.6 (1.9-4.0cm)Asc. Aorta cm IVSd0.9 (0.7-1.1cm)RV (D) (1.8-2.4cm) PWd1.0 (0.7-1.1cm) Mitral Valve MitralMitral Stenosis E wave0.40m/sMV Mean GR.mmHg A wave0.60m/sMV Peak GR.mmHg E/A ratio0.72D MVAcm2 Aortic Valve Aortic ValveAortic Stenosis V10.90m/Daron Mean GR.4mmHg V21.60m/Daron Peak GR.11mmHg LVOT Diameter2.3 (1.8-2.4cm)Doppler AVA2.34cm2 Pulmonic Valve V20.50m/s Other Information Quality : Technically LimitedRhythm : Conclusion LVEF likely normal at 50-55%, inferior wall not well visualized. Mild diastolic dysfunction and mild LVH RV normal no significant valve disease
[2025-03-10 20:00] VITALS: PULSE 60; PULSE 74; RESP 13; O2SAT 97
[2025-03-10 20:06] LABS: INR 1.25 (0.9-1.15); Prothrombin Time 13.0 sec (9.3-11.8)
[2025-03-10 20:11] LABS: Partial Thromboplastin Time 88.0 SEC (24.5-34.5)
[2025-03-10 21:00] VITALS: BP 133/78; PULSE 77; RESP 17; TEMP 97.9; O2SAT 98
--- NOTE | 2025-03-10 21:23 | CONS ---
Pharmacy Clinical Information: AIME FIGUEROA CONFIRMED AND READ BACK Rita Ryan PHARMACIST Mar 10, 2025 21:23
[2025-03-10] MEDS: CEFEPIME 2GM/50ML NS 50 ML IV SCH (21:43)
[2025-03-10] MEDS: PREGABALIN 25 MG CAP PO SCH (21:43)
[2025-03-10] MEDS: POTASSIUM EFFERVESENT TAB 25 MEQ PO ONE (22:35)
[2025-03-11] VITALS (12 sets, daily range): BP systolic 119–163; BP diastolic 62–87; PULSE 59–78; RESP 12–18; TEMP 97.6–98.4; O2SAT 97–100
[2025-03-11 04:28] LABS: Hematocrit 32.6 % (41.0-53.0); Hemoglobin 11.3 g/dL (13.5-17.5); Mean Corpuscular Hemoglobin 32.8 pg (28.0-32.0); Mean Corpuscular Volume 94.8 fL (80.0-100.0); Nucleated Red Blood Cells % 0.6 %
[2025-03-11 04:29] LABS: Alanine Aminotransferase 16 U/L (7-40); Alkaline Phosphatase 62 U/L (46-116); Anion Gap 9 (5-15); BUN/Creatinine Ratio 27.7 (10.0-20.0); Bilirubin, Total 0.4 mg/dL (0.2-1.0); Carbon Dioxide 28 mmol/L (20-31); Chloride 100 mmol/L (98-107); Potassium 3.6 mmol/L (3.5-5.1); Sodium 137 mmol/L (136-145); Total Protein 5.9 g/dL (5.7-8.2)
[2025-03-11 04:32] LABS: INR 1.22 (0.9-1.15); Partial Thromboplastin Time 53.3 SEC (24.5-34.5); Prothrombin Time 12.7 sec (9.3-11.8)
[2025-03-11 04:38] LABS: Albumin 3.1 g/dL (3.2-4.8); Blood Urea Nitrogen 54 mg/dL (9-23); Calcium 8.2 mg/dL (8.7-10.4); Glucose 138 mg/dL (74-106)
[2025-03-11] MEDS: IODIXANOL 320MG/ML 100ML BTL IV ONE (10:25)
[2025-03-11] MEDS: VERAPAMIL 2.5MG/ML INJ 2ML VIAL IV ONE (10:41)
[2025-03-11] MEDS: ANGIOMAX 250 MG VIAL IV ONE (10:41)
[2025-03-11] MEDS: fentaNYL CITRATE 100 MCG/2 ML VL ONE (10:41)
[2025-03-11] MEDS: MIDAZOLAM HCL 2MG/2ML 2ml VIAL (1mg/ml) ONE (10:42)
[2025-03-11] MEDS: LIDOCAINE 2%HCL (LOCAL ANESTH.) INJ 20ML MDV ONE (10:42)
[2025-03-11] MEDS: SODIUM CHL 0.9% 0 ML ONE (10:42)
[2025-03-11 10:44] LABS: INR 1.15 (0.9-1.15); Partial Thromboplastin Time 48.2 SEC (24.5-34.5); Prothrombin Time 12.0 sec (9.3-11.8)
[2025-03-11] MEDS: HEPARIN 1,000 UNITS/ml 1ML VIAL ONE (10:58)
--- NOTE | 2025-03-11 11:03 | DVHPN2 ---
Progress Note Date Seen: Mar 11, 2025 Has the PT tested + for MRSA If YES, has PT been informed?: No Medical Necessity Reason Pt with a Central, PICC or Fol: No Subjective Patient reports: Feels worse Objective vital signs Vital Sign Date Time Temp Pulse Resp B/P (MAP) Pulse Ox O2 Delivery O2 Flow Rate FiO2 03/11/25 09:00 97.6 71 16 158/76 (103) 100 97.6 03/11/25 07:56 Room Air* 0 21 Total Intake and Output 03/10/25 03/10/25 03/11/25 15:00 23:00 07:00 Intake Total 0 ml 100 ml 650 ml Output Total 1300 ml 1150 ml Balance 0 ml -1200 ml -500 ml medications Current Medications Medications Dose Ordered Sig/Bandar Route Start Time Stop Time Status Last Admin Dose Admin Sodium Chloride 10 ml Q8HR IV 03/10/25 06:00 03/11/25 06:01 10 ML Acetaminophen 650 mg Q6HP PRN PO 03/10/25 00:00 Nitroglycerin 0.4 mg Q5MINP PRN SL 03/10/25 00:00 Morphine Sulfate 2 mg Q30M PRN IV 03/10/25 00:00 Amlodipine Besylate 5 mg DAILY PO 03/10/25 10:00 03/10/25 10:00 5 MG Aspirin 81 mg DAILY PO 03/10/25 10:00 Carvedilol 12.5 mg BID PO 03/10/25 10:00 03/10/25 21:45 12.5 MG Acetaminophen/ Hydrocodone Bitart 1 tab BID PRN PO 03/10/25 01:15 Calcium/Vitamin D 1 tab BID PO 03/10/25 10:00 03/10/25 21:45 1 TAB Atorvastatin Calcium 40 mg DAILY PO 03/10/25 10:00 Sodium Chloride 1,000 ml @ 100 mls/hr Q10H IV 03/10/25 09:45 03/10/25 21:55 100 MLS/HR Cefepime HCl 50 ml @ 12.5 mls/hr Q12HR IV 03/10/25 22:00 03/10/25 21:43 12.5 MLS/HR Vancomycin HCl 0 ml @ 0 mls/hr UD IV 03/10/25 11:00 Pregabalin 50 mg BID PO 03/10/25 22:00 03/10/25 21:43 50 MG Heparin Sodium/ Dextrose 250 ml @ 4 mls/hr Q24H IV 03/10/25 21:30 03/10/25 22:43 4 MLS/HR Examination: GENERAL:Abnormal, HEENT:Abnormal, LUNGS:Abnormal, CVS:Abnormal, ABDOMEN:Abnormal laboratory and microbiology Laboratory Tests 03/11/25 03:48 03/11/25 03:22 Test 03/11/25 03:22 Range/Units Serum Glucose 138 H 74-106 mg/dL Microbiology Date/Time Source Procedure Growth Status 03/10/25 14:18 Leg Right Gram Stain Pending Resulted 03/10/25 14:18 Leg Right Wound Culture - Preliminary Resulted 03/09/25 12:00 Blood Blood Culture - Preliminary NO GROWTH AFTER 24 HOURS OF INCUBATION. Resulted Problem List/Assessment/Plan Problem List/Assessment/Plan nstemi severe cad PAD non healing ulcers DM ckd advanced LHC shows severe 3v cad transfer for cabg eval (pt may deemed inoperable in which case i suspect he will need complex PCI) asa heparin gtt statin abx as indicated Plan discussed with: Patient My Orders My Orders Orders - JOSE DE JESUS DUDLEY MD Procedure Category Date Status Time Cl Left Heart Cath CL 03/11/25 Taken 08:58 Dietary Evaluation Review Recommendations by RD: Protein Supplementation Comments: 1) Initiate Pro-Stat @ 30 mL qd 2) Initiate MVI @ 1 tb qd 3) Advance to 60g CCHO renal diet when medically feasible 4) Initiate Nepro bid when medically feasible 5) Follow-up with nephrology, neurology, and cardiology 6) Continue to monitor I&O, labs, and skin integrity Expected Outcomes/Goals: 1) labs to improve 2) diet to advance 3) wounds to improve 4) f/u in 3-5 days Date of Service: Mar 11, 2025 Billing Provider: JOSE DE JESUS DUDLEY MD Common Visit Codes: NOT BILLABLE JOSE DE JESUS DUDLEY MD Mar 11, 2025 11:03
--- NOTE | 2025-03-11 11:07 | CONS ---
Pharmacy Clinical Information: INCREASE HEPARIN DRIP RATE TO 600 UNITS/HR PER APTT OF 48.2 AIME JEONG CONFIRMED AND READBACK Rita Ryan PHARMACIST Mar 11, 2025 11:07
--- NOTE | 2025-03-11 11:08 | DVHOP2 ---
Operative Report Operative Report CARDIAC PHYSIOTHERAPIST'S ASSISTANT PROCEDURE REPORT [place], [place] Date of Service: 03/11/25 Pony Edger: Jose De Jesus Dudley MD PROCEDURES PERFORMED: Coronary angiogram, left heart catheterization, conscious sedation administration and supervision, less than 15 minutes; fluoroscopy use and interpretation. PREOPERATIVE DIAGNOSES: NSTEMI POSTOP DIAGNOSIS: NSTEMI DESCRIPTION OF PROCEDURE: The patient or appropriate family signed informed consent understanding the risks, benefits and alternatives of the procedure, they wished to proceed. The patient was brought to the cardiac labor representative in n.p.o. state. The patient was prepped in a sterile fashion. Sedation was used per cardiac cath protocol. I administered 2 mL of 2% lidocaine to the right wrist. With an antegrade front wall puncture. I cannulated the right radial artery and placed a 6-Yi Glidesheath slender. Next, an intra-arterial spasmolytic was administered. Next, a - 6French Buchanan catheter and and were used for coronary angiogram and LVEDP measurement and pressure pullback. At the completion of procedure, all guides and wires were removed, and there were no immediate complications. FINDINGS: RCA: Moderate vessel off the right sinus of Valsalva, there is a long tubular 80% ostial to mid stenoiss , mid to distal RCA has 85% stenosis. distal RCA has small PDA . this is a co dominant v essel. LEFT MAIN: very shrot with very early bifurcation size left main, it bifurcat es into LAD and circumflex. mild plaquing. CIRCUMFLEX: Moderate caliber vessel coming off the left main. ostial to prox CX has an 80% stenosis. OM1 has a long 80-90% stenosis, OM2 has diffuse 70% plaque. distal CX in av groove gives off a codominant LPL branch with moderate diffuse plaque LAD: LAD is a moderate caliber vessel coming of the left main. prox LAD is patent and severly calcific . mid LAD has long tubular 70-80%^ stenosis. distal LAD has a focal 80% stenosis. apical LAD has a good target. LVEDP of 3 mmhg CONCLUSIONS: 1. severe 3v cad PLAN: Aggressive risk factor modification and medical management for the patient. cabg consult vs complex PCI JOSE DE JESUS DUDLEY MD Mar 11, 2025 11:08
[2025-03-11] MEDS: HEPARIN DRIP/D5W 100UNITS/ML 250 ML IV SCH ×2 (11:57→20:55)
[2025-03-11 15:43] LABS: Hematocrit 35.0 % (41.0-53.0); Hemoglobin 11.9 g/dL (13.5-17.5); Mean Corpuscular Hemoglobin 32.2 pg (28.0-32.0); Mean Corpuscular Volume 94.6 fL (80.0-100.0); Nucleated Red Blood Cells % 0.1 %
[2025-03-11 15:55] LABS: Alanine Aminotransferase 16 U/L (7-40); Alkaline Phosphatase 65 U/L (46-116); Anion Gap 10 (5-15); BUN/Creatinine Ratio 24.0 (10.0-20.0); Bilirubin, Total 0.5 mg/dL (0.2-1.0); Calcium 8.7 mg/dL (8.7-10.4); Carbon Dioxide 26 mmol/L (20-31); Chloride 101 mmol/L (98-107); Potassium 3.8 mmol/L (3.5-5.1); Sodium 137 mmol/L (136-145); Total Protein 6.0 g/dL (5.7-8.2)
[2025-03-11 15:58] LABS: Albumin 3.1 g/dL (3.2-4.8); Blood Urea Nitrogen 43 mg/dL (9-23); Glucose 193 mg/dL (74-106)
[2025-03-11 18:34] LABS: INR 1.19 (0.9-1.15); Partial Thromboplastin Time 48.5 SEC (24.5-34.5); Prothrombin Time 12.4 sec (9.3-11.8)
--- NOTE | 2025-03-11 19:43 | DVHPNRES ---
Progress Note Date Seen: Mar 11, 2025 Resident Creating Document: FABRICIO CALVIN RESIDENT Has the PT tested + for MRSA If YES, has PT been informed?: No Medical Necessity Reason Pt with a Central, PICC or Fol: No Subjective Review of Systems History of Present Illness Patient is 74 years old male with past medical history of hypertension, diabetes mellitus 2, CKD, peripheral artery disease, hyperlipidemia, right foot osteomyelitis, chronic bilateral leg wound, history of testicular cancer diagnosed in 1993, status post left orchiectomy came with a complaint of presyncope. As per patient since he got discharged from [facility] on 03/04/25 he has been feeling dizzy and unsteady when walking. Patient also reported feeling weak and also heaviness of the left lower extremity for last couple of days since he got discharged from the hospital. Patient also reported having 1 episode of vomiting yesterday with food content, no blood. Because of the the dizziness and heaviness of the left leg patient called 911 and EMS arrived. Patient was recently discharged from [facility] with the diagnosis of right lower extremity cellulitis and osteomyelitis of right great toe, status post incision and drainage by Dr. Valdez. During hospital course patient was treated With the Zosyn and vancomycin and discharged with a oral ciprofloxacin, doxycycline and rifampin recommended by infectious disease doctor Dr. Colon. Initial lab workup revealed hypokalemia with potassium 2.5, serum creatinine 2.43, BUN 58, lactic acidosis with lactic acid 2.7, troponin I 531. UDS Negative. EKG revealed RBBB with ischemic changes in the chest leads-no previous EKG to compare. 03/10/2025 The patient was seen at bedside. He reports ongoing left leg heaviness and discomfort, particularly with ambulation or standing. Denies chest pain, shortness of breath, or palpitations. Continues to feel weak and mildly nauseated but is tolerating oral intake. He is aware of his recent elevated troponin levels and understands the working diagnosis of NSTEMI. He confirms compliance with medications and denies any bleeding, melena, hematuria, or confusion. 03/11/25 Patient was seen at bedside this morning. He reports improved alertness and energy. No chest pain or dyspnea. He continues to feel mild leg heaviness on the left side, now less severe. Denies palpitations, nausea, vomiting, melena, hematuria or headache. He is aware of undergoing left heart catheterization today. And left heart catheterization revealed severe three-vessel coronary artery disease and the plan is to transfer for CABG evaluation. His wounds are being treated appropriately with wound care and podiatry consult. Past Medical History hypertension, diabetes mellitus, CKD, peripheral artery disease, hyperlipidemia, right foot osteomyelitis, chronic bilateral leg wound, history of testicular cancer diagnosed in 1993, status post left orchiectomy Past Surgical History Left orchiectomy due to testicular carcinoma, Tonsillectomy, right great toe incision and drainage due to osteomyelitis, cataract surgery Past Social History Patient lives at home, denies smoking/alcoholism/drug abuse Review of Systems Allergy- NKDA Patient was seen today at the bedside. Cardiovascular- deny acute chest pain or shortness of breath or cough or palpitation Respiratory denies cough or short of breath or wheezing Gastrointestinal- denies any rectal bleeding, Musculoskeletal-denies acute joint swelling or redness Neurological- denies acute dysarthria, dysphagia, change in vision Psychiatry- denies depression or SI or HI Skin- denies acute rash or purpura Allergies: Coded Allergies: Objective vital signs Vital Sign Date Time Temp Pulse Resp B/P (MAP) Pulse Ox O2 Delivery O2 Flow Rate FiO2 03/11/25 16:54 97.9 78 17 135/62 (86) 100 97.9 03/11/25 07:56 Room Air* 0 21 Total Intake and Output 03/10/25 03/10/25 03/11/25 15:00 23:00 07:00 Intake Total 0 ml 100 ml 650 ml Output Total 1300 ml 1150 ml Balance 0 ml -1200 ml -500 ml medications Current Medications Medications Dose Ordered Sig/Bandar Route Start Time Stop Time Status Last Admin Dose Admin Sodium Chloride 10 ml Q8HR IV 03/10/25 06:00 03/11/25 13:58 10 ML Acetaminophen 650 mg Q6HP PRN PO 03/10/25 00:00 Nitroglycerin 0.4 mg Q5MINP PRN SL 03/10/25 00:00 Morphine Sulfate 2 mg Q30M PRN IV 03/10/25 00:00 Amlodipine Besylate 5 mg DAILY PO 03/10/25 10:00 03/11/25 12:29 5 MG Aspirin 81 mg DAILY PO 03/10/25 10:00 Carvedilol 12.5 mg BID PO 03/10/25 10:00 03/11/25 12:28 12.5 MG Acetaminophen/ Hydrocodone Bitart 1 tab BID PRN PO 03/10/25 01:15 Calcium/Vitamin D 1 tab BID PO 03/10/25 10:00 03/10/25 21:45 1 TAB Atorvastatin Calcium 40 mg DAILY PO 03/10/25 10:00 Sodium Chloride 1,000 ml @ 100 mls/hr Q10H IV 03/10/25 09:45 03/11/25 16:05 100 MLS/HR Cefepime HCl 50 ml @ 12.5 mls/hr Q12HR IV 03/10/25 22:00 03/10/25 21:43 12.5 MLS/HR Vancomycin HCl 0 ml @ 0 mls/hr UD IV 03/10/25 11:00 Pregabalin 50 mg BID PO 03/10/25 22:00 03/10/25 21:43 50 MG Heparin Sodium/ Dextrose 250 ml @ 6 mls/hr Q24H IV 03/11/25 11:15 03/11/25 11:57 6 MLS/HR Furosemide 40 mg DAILY IV 03/12/25 10:00 Examination Examination General: Awake, alert, NAD HEENT: PERRLA, no nasal discharge CV: RRR, no murmur Resp: Clear lungs bilaterally Abdomen: Soft, NT, ND, BS + Extremities: * 3+ bilateral pitting edema * Absent dorsalis pedis pulses * Multiple chronic ulcerations on right lower extremity * Left leg tenderness and heaviness persist Neuro: A&O 4, no focal deficit Skin: Cool BLE, no rash laboratory and microbiology Laboratory Tests 03/11/25 15:25 [facility] * BP: 135/62 mmHg * O2 Sat: 97% on RA * UOP: 1.43 mL/kg/hr * K?: 3.8 (was 2.5) * BUN: 43 (was 63) * Cr: 1.79 (was 2.33) * BUN/Cr: 24 (high, improved) * BNP: 496 (from 289) * AST: 50 U/L * RBC M.1 * Trop I: 492 ng/L (persistent elevation) * Blood Culture: No growth after 24h * MRSA screen: Negative * Wound Gram stain: No organisms seen * Wound culture: Pending final Cardiac Cath Report (03/11/2025) * Findings: Severe 3-vessel CAD * RCA: 8085% long tubular stenosis * LAD: 70% mid, 80% distal stenosis * OM1: 8090%, OM2: diffuse 70% * Circumflex: 80% osteo-proximal * LPL branch: diffuse moderate disease * LVEDP: 3 mmHg * Conclusion: Severe triple vessel disease * Plan: CABG consult if inoperable then complex PCI Test 03/11/25 15:25 Range/Units Serum Glucose 193 H 74-106 mg/dL Microbiology Date/Time Source Procedure Growth Status 03/10/25 15:00 Nose MRSA Screen - Final Complete 03/09/25 12:00 Blood Blood Culture - Preliminary NO GROWTH AFTER 48 HOURS OF INCUBATION. Resulted Problem List/Assessment/Plan Problem List/Assessment/Plan Assessment Non-ST Elevation Myocardial Infarction (NSTEMI), Type 1 Ongoing flat troponin elevation; ischemic ECG changes; no current chest pain Troponins remain elevated, cath confirms ischemic burden Triple Vessel CAD New ? Requires CABG; social work involved for transfer Acute Kidney Injury on Chronic Kidney Disease, Stage 3b? likely multifactorial (hypoperfusion, sepsis, medications) Severe Hypokalemia, improving with replacement Sepsis, resolved likely secondary to right foot osteomyelitis Chronic Osteomyelitis, right great toe, status post I&D Chronic ulcers with confirmed bone involvement Peripheral Arterial Disease with Chronic Critical Limb Ischemia Absent DP pulses, ulcers, BLE edema Chronic Diastolic Heart Failure with volume overload BNP elevated, BLE edema, reduced mobility Hypertension, Controlled Type 2 Diabetes Mellitus, without current DKA or HHS Hyperlipidemia History of left testicular carcinoma, s/p orchiectomy (1993) BPH Lactic acidosis (resolved) Left lower extremity discomfort, possibly neurovascular Plan Cardiovascular / ACS / NSTEMI Given comorbidities, and significant electrocardiogram, highly suspicious for NSTEMI type 1. The patient is also known to have peripheral arterial disease and can benefit from a peripheral angiogram. Given the patient's poor renal function, procedures should be staged at different times. * Continue Heparin drip per ACS protocol and pharmacy to guide ECHO : LVEF likely normal at 50-55%, inferior wall not well visualized. Mild diastolic dysfunction and mild LVH RV normal no significant valve disease * Continue Aspirin 81 mg PO daily * Continue Atorvastatin 40 mg PO daily CABG consult & social work consult Placed for higher level of care Furosemide 40 mg IV Once a day * Monitor troponins, EKG * Cardiology consult for further eval (follow their recommendations) * Monitor for bleeding (check Hgb, stool)/ Monitor coagulation profile Renal / Fluids * Continue IV NS @ 100 mL/hr (avoid overhydration) * Monitor renal function daily * Avoid nephrotoxins Advance to renal CCHO diet with 60g protein when stable Electrolytes * Continue Oral KCl 50 mEq PO today * Hold IV K for now unless symptoms recur * Recheck BMP/K+ q6h * Monitor magnesium and replace if <2.0 Infectious Disease / Sepsis / Osteomyelitis * Continue Vancomycin + Cefepime (documented osteo and high-risk skin ulcers) * Podiatry consult placed * Monitor for systemic signs of infection * Blood cultures negative so far (24h) * Continue wound care and reassess need for debridement or surgery Neurology * Monitor for recurrent presyncope * Orthostatic vitals * R/O neurogenic claudication if persistent Peripheral Vascular / Edema / Wound Care * Duplex negative for DVT * Continue SCDs + elevation of legs * Continue Furosemide 40 mg IV once for today * Wound care daily * Avoid aggressive compression given PAD Prescribed pregablin Endocrine * Monitor glucose, target FS <180 * No insulin needed currently * Reassess A1c Psych / Functionality / Mobility * Alert, cooperative Prophylaxis * DVT: SCD * PUD: Pantoprazole 40 mg IV daily Goals of care, Code status- Full Code ; discussed with >15 minutes Plan discussed with Attending Physician , nursing staff, Total time spent on patient evaluation, chart review, assessment and plan, discussion discussion >35 minutes Plan discussed with: Patient My Orders My Orders Orders - FABRICIO CALVIN RESIDENT Procedure Category Date Status Time Furosemide Injection PHA 03/12/25 In Process (Lasix Injection) 10:00 Dietary Evaluation Review Recommendations by RD: Protein Supplementation Comments: 1) Initiate Pro-Stat @ 30 mL qd 2) Initiate MVI @ 1 tb qd 3) Advance to 60g CCHO renal diet when medically feasible 4) Initiate Nepro bid when medically feasible 5) Follow-up with nephrology, neurology, and cardiology 6) Continue to monitor I&O, labs, and skin integrity Expected Outcomes/Goals: 1) labs to improve 2) diet to advance 3) wounds to improve 4) f/u in 3-5 days Date of Service: Mar 11, 2025 Billing Provider: SHWETA OCNRAD MD Common Visit Codes: [id number] INP/OBS CARE(HIGH) FABRICIO CALVIN RESIDENT Mar 11, 2025 19:43 SHWETA CONRAD MD Mar 21, 2025 01:44
[2025-03-12] VITALS (9 sets, daily range): BP systolic 108–145; BP diastolic 58–73; PULSE 69–92; RESP 13–20; TEMP 97.8–98.7; O2SAT 92–98
[2025-03-12 04:38] LABS: INR 1.23 (0.9-1.15); Prothrombin Time 12.8 sec (9.3-11.8)
[2025-03-12 05:56] LABS: Partial Thromboplastin Time 138.7 SEC (24.5-34.5)
--- NOTE | 2025-03-12 06:42 | ECG ---
[facility] Test Date: 2025-03-10 Test Time: 02:38:31 Pat Name: RAJESH ELIAS Department: ER Room: 0238T A Gender: M [place] Guide: LILIA : 1950 Requested By: MATTHEW NICOLE Order Number: [id number] Reading MD: Kelton Ji Measurements Intervals [place] Rate: 89 P: 41 IN: 134 QRS: -81 QRSD: 153 T: 198 QT: 440 QTc: 536 Interpretive Statements Sinus rhythm RBBB and LAFB Abnormal T, consider ischemia, anterior and lateral leads Electronically Signed On 03-17-2025 17:50:59 PDT by Kelton Ji Please click the below link to view image of tracing.
[2025-03-12] MEDS: HEPARIN DRIP/D5W 100UNITS/ML 250 ML IV SCH ×2 (07:28→15:21)
[2025-03-12 07:45] LABS: Hematocrit 29.2 % (41.0-53.0); Hemoglobin 10.0 g/dL (13.5-17.5); Mean Corpuscular Hemoglobin 32.3 pg (28.0-32.0); Mean Corpuscular Volume 93.9 fL (80.0-100.0); Nucleated Red Blood Cells % 0.1 %
[2025-03-12 08:04] LABS: Chloride 100 mmol/L (98-107); Potassium 3.7 mmol/L (3.5-5.1)
[2025-03-12 08:05] LABS: Anion Gap 9 (5-15); Carbon Dioxide 26 mmol/L (20-31)
[2025-03-12 08:10] LABS: BUN/Creatinine Ratio 28.5 (10.0-20.0)
--- NOTE | 2025-03-12 08:16 | DVHPN2 ---
Progress Note Date Seen: Mar 12, 2025 Has the PT tested + for MRSA If YES, has PT been informed?: No Medical Necessity Reason Pt with a Central, PICC or Fol: No Subjective Patient reports: Feels better Other Systems: spoke to [facility]--turned down for cabg Objective vital signs Vital Sign Date Time Temp Pulse Resp B/P (MAP) Pulse Ox O2 Delivery O2 Flow Rate FiO2 03/12/25 07:52 97.9 77 20 145/67 (93) 95 97.9 03/11/25 20:00 Room Air* 0 21 Total Intake and Output 03/11/25 03/11/25 03/12/25 15:00 23:00 07:00 Intake Total 0 ml 250 ml 562.5 ml Output Total 900 ml 650 ml Balance 0 ml -650 ml -87.5 ml medications Current Medications Medications Dose Ordered Sig/Bandar Route Start Time Stop Time Status Last Admin Dose Admin Sodium Chloride 10 ml Q8HR IV 03/10/25 06:00 03/12/25 06:09 10 ML Acetaminophen 650 mg Q6HP PRN PO 03/10/25 00:00 Nitroglycerin 0.4 mg Q5MINP PRN SL 03/10/25 00:00 Morphine Sulfate 2 mg Q30M PRN IV 03/10/25 00:00 Amlodipine Besylate 5 mg DAILY PO 03/10/25 10:00 03/11/25 12:29 5 MG Aspirin 81 mg DAILY PO 03/10/25 10:00 Carvedilol 12.5 mg BID PO 03/10/25 10:00 03/11/25 23:49 12.5 MG Acetaminophen/ Hydrocodone Bitart 1 tab BID PRN PO 03/10/25 01:15 Calcium/Vitamin D 1 tab BID PO 03/10/25 10:00 03/11/25 23:50 1 TAB Atorvastatin Calcium 40 mg DAILY PO 03/10/25 10:00 Sodium Chloride 1,000 ml @ 100 mls/hr Q10H IV 03/10/25 09:45 03/12/25 00:03 100 MLS/HR Cefepime HCl 50 ml @ 12.5 mls/hr Q12HR IV 03/10/25 22:00 03/11/25 23:48 12.5 MLS/HR Vancomycin HCl 0 ml @ 0 mls/hr UD IV 03/10/25 11:00 Pregabalin 50 mg BID PO 03/10/25 22:00 03/11/25 23:48 50 MG Furosemide 40 mg DAILY IV 03/12/25 10:00 Heparin Sodium/ Dextrose 250 ml @ 5 mls/hr Q24H IV 03/12/25 07:15 03/12/25 07:28 5 MLS/HR Examination: GENERAL:Abnormal, HEENT:Abnormal, LUNGS:Abnormal, CVS:Abnormal, ABDOMEN:Abnormal laboratory and microbiology Laboratory Tests 03/12/25 05:59 Test 03/12/25 05:59 Range/Units Serum Glucose Pending Microbiology Date/Time Source Procedure Growth Status 03/10/25 15:00 Nose MRSA Screen - Final Complete 03/09/25 12:00 Blood Blood Culture - Preliminary NO GROWTH AFTER 48 HOURS OF INCUBATION. Resulted Problem List/Assessment/Plan Problem List/Assessment/Plan nstemi severe cad PAD non healing ulcers DM ckd advanced LHC shows severe 3v cad transfer for cabg eval (pt may deemed inoperable in which case i suspect he will need complex PCI) asa heparin gtt statin abx as indicated i would recommend pt going home on asa/ plavix/ statin and improving functional status and wound care consider pci once more stable or indefinite medical therapy given his c omorbidites pt is agreeable to plan Plan discussed with: Patient My Orders My Orders Orders - JOSE DE JESUS DUDLEY MD Procedure Category Date Status Time Cl Left Heart Cath CL 03/11/25 Taken 08:58 Post Cath Vital Signs SALVADOR 03/11/25 In Process Q 15min 11:05 Post Cath Activity SALVADOR 03/11/25 In Process Protocol 11:05 Communication Order ORDERS 03/11/25 Transmitted 12:05 Communication Order ORDERS 03/11/25 Transmitted 12:05 Dietary Evaluation Review Recommendations by RD: Protein Supplementation Comments: 1) Initiate Pro-Stat @ 30 mL qd 2) Initiate MVI @ 1 tb qd 3) Advance to 60g CCHO renal diet when medically feasible 4) Initiate Nepro bid when medically feasible 5) Follow-up with nephrology, neurology, and cardiology 6) Continue to monitor I&O, labs, and skin integrity Expected Outcomes/Goals: 1) labs to improve 2) diet to advance 3) wounds to improve 4) f/u in 3-5 days Date of Service: Mar 12, 2025 Billing Provider: JOSE DE JESUS DUDLEY MD Common Visit Codes: NOT BILLABLE JOSE DE JESUS DUDLEY MD Mar 12, 2025 08:16
[2025-03-12 08:20] LABS: Blood Urea Nitrogen 51 mg/dL (9-23); Calcium 8.7 mg/dL (8.7-10.4); Glucose 147 mg/dL (74-106); Sodium 135 mmol/L (136-145)
[2025-03-12] MEDS: FUROSEMIDE 40 MG/4 ML VIAL IV SCH (09:51)
[2025-03-12] MEDS: VANCOMYCIN 750mg/150ml 150 ML IV ONE (12:59)
[2025-03-12 13:47] LABS: INR 1.18 (0.9-1.15); Prothrombin Time 12.3 sec (9.3-11.8)
[2025-03-12 14:06] LABS: Partial Thromboplastin Time > 139.0 SEC (24.5-34.5)
--- NOTE | 2025-03-12 15:00 | CONS ---
Pharmacy Clinical Information: HEPARIN DRIP CURRENTLY PAUSED DUE TO APTT > 139 AFTER 1 HR, RE-START DRIP AT RATE 200 UNITS/HR NEXT APTT DRAW SCHEDULED FOR 2100 PER RX PROTOCOL KENNETH BRIDGES PHARMACIST Mar 12, 2025 15:00
--- NOTE | 2025-03-12 16:59 | DVHDSRES ---
Discharge Summary Date of Admission Resident Creating Document: YOUSUF CAN RESIDENT Mar 09, 2025 at 23:50 Date of Discharge: Mar 12, 2025 Labs/Diagnostic Data: Laboratory Results Test 03/12/25 13:02 03/12/25 05:59 03/11/25 15:25 03/10/25 19:34 Prothrombin Time 12.3 sec (9.3-11.8) Prothrombin Time INR 1.18 (0.9-1.15) Activated Partial Thromboplast Time > 139.0 SEC (24.5-34.5) White Blood Count 6.4 10^3/uL (4.4-10.8) Red Blood Count 3.11 10^6/uL (4.5-5.90) Hemoglobin 10.0 g/dL (13.5-17.5) Hematocrit 29.2 % (41.0-53.0) Mean Corpuscular Volume 93.9 fL (80.0-100.0) Mean Corpuscular Hemoglobin 32.3 pg (28.0-32.0) Mean Corpuscular Hemoglobin Concent 34.4 g/dL (32.0-36.0) Red Cell Distribution Width 15.3 % (11.8-14.3) Platelet Count 206 10^3/uL (140-450) Mean Platelet Volume 7.9 fL (6.9-10.8) Neutrophils (%) (Auto) 66.2 % (37.0-80.0) Lymphocytes (%) (Auto) 15.7 % (10.0-50.0) Monocytes (%) (Auto) 11.6 % (0.0-12.0) Eosinophils (%) (Auto) 6.0 % (0.0-7.0) Basophils (%) (Auto) 0.5 % (0.0-2.0) Neutrophils # (Auto) 4.3 10 ^3/uL (1.6-8.6) Lymphocytes # (Auto) 1.0 10 ^3/uL (0.4-5.4) Monocytes # (Auto) 0.7 10 ^3/uL (0-1.3) Eosinophils # (Auto) 0.4 10 ^3/uL (0-0.8) Basophils # (Auto) 0 10 ^3/uL (0-0.2) Nucleated Red Blood Cells 0.1 % Sodium Level 135 mmol/L (136-145) Potassium Level 3.7 mmol/L (3.5-5.1) Chloride Level 100 mmol/L (98-107) Carbon Dioxide Level 26 mmol/L (20-31) Anion Gap 9 (5-15) Blood Urea Nitrogen 51 mg/dL (9-23) Creatinine 1.79 mg/dL (0.700-1.30) Glomerular Filtration Rate Calc 39 mL/min (>90) BUN/Creatinine Ratio 28.5 (10.0-20.0) Serum Glucose 147 mg/dL (74-106) Calcium Level 8.7 mg/dL (8.7-10.4) Random Vancomycin Level 13.7 ug/mL (5-10) Total Bilirubin 0.5 mg/dL (0.2-1.0) Aspartate Amino Transferase (AST) 50 U/L (13-40) Alanine Aminotransferase (ALT) 16 U/L (7-40) Alkaline Phosphatase 65 U/L (46-116) Total Protein 6.0 g/dL (5.7-8.2) Albumin 3.1 g/dL (3.2-4.8) B-Type Natriuretic Peptide 496.13 pg/mL (0-100) Test 03/10/25 12:57 03/10/25 08:41 03/10/25 05:03 03/10/25 03:16 Troponin I High Sensitivity 492 ng/L (</=54) Magnesium Level 2.1 mg/dL (1.6-2.6) Vitamin B12 Level 808 pg/mL (211-911) Vitamin D 25-Hydroxy 56.4 ng/mL (30.0-100) Folic Acid 15.13 ng/mL (>5.38) Direct Bilirubin 0.5 mg/dL (<0.3) Thyroid Stimulating Hormone (TSH) 1.47 uIU/mL (0.55-4.78) Test 03/10/25 00:45 03/09/25 16:42 Urine Color Yellow (Yellow) Urine Clarity Clear (Clear) Urine pH 5.5 (5.0-9.0) Urine Specific Olive 1.008 (1.001-1.035) Urine Protein Negative (Negative) Urine Ketones Negative (Negative) Urine Blood Negative /uL (Negative) Urine Nitrite Negative (Negative) Urine Bilirubin Negative (Negative) Urine Urobilinogen Normal mg/dL (Negative) Urine Leukocyte Esterase Negative /uL (Negative) Urine RBC None seen /hpf (0 - 3) Urine Microscopic WBC < 1 /HPF (0-3) Urine Squamous Epithelial Cells Few /hpf (<5) Urine Bacteria None seen /hpf (None Seen) Urine Hyaline Casts Few /lpf (0 - 2) Urine Glucose Normal mg/dL (Normal) Urine Opiates Screen Neg (NEGATIVE) Urine Fentanyl Screen Neg (NEGATIVE) Urine Barbiturates Screen Neg (NEGATIVE) Urine Phencyclidine Screen Neg (NEGATIVE) Urine Amphetamines Screen Neg (NEGATIVE) Urine Benzodiazepines Screen Neg (NEGATIVE) Urine Cocaine Screen Neg (NEGATIVE) Urine Cannabinoids Screen Neg (NEGATIVE) Lactic Acid Level 1.7 mmol/L (0.4-2.0) Other Laboratory Tests 03/12/25 05:59 Brief Hx & Hospital Course: History of Present Illness Patient is 74 years old male with past medical history of hypertension, diabetes mellitus 2, CKD, peripheral artery disease, hyperlipidemia, right foot osteomyelitis, chronic bilateral leg wound, history of testicular cancer diagnosed in 1993, status post left orchiectomy came to the ED with a complaint of presyncope. As per patient since he got discharged from [facility] on 03/04/25 he has been feeling dizzy and unsteady when walking. Patient also reported feeling weak and also heaviness of the left lower extremity for last couple of days since he got discharged from the hospital. Patient also reported having 1 episode of vomiting yesterday with food content, no blood. Because of the the dizziness and heaviness of the left leg patient called 911 and EMS arrived. Patient was recently discharged from [facility] with the diagnosis of right lower extremity cellulitis and osteomyelitis of right great toe, status post incision and drainage by Dr. Valdez. During hospital course patient was treated With the Zosyn and vancomycin and discharged with a oral ciprofloxacin, doxycycline and rifampin recommended by infectious disease doctor Dr. Colon. Initial lab workup in the ED revealed hypokalemia with potassium 2.5, serum creatinine 2.43, BUN 58, lactic acidosis with lactic acid 2.7, troponin I 531. UDS Negative. EKG revealed RBBB with ischemic changes in the chest leads-no previous EKG to compare.On 03/10/2025 The patient was seen at bedside. He reports ongoing left leg heaviness and discomfort, particularly with ambulation or standing. Denied chest pain, shortness of breath, or palpitations. He felt weak and mildly nauseated but is tolerating oral intake. He was aware of his recent elevated troponin levels and understands the working diagnosis of NSTEMI. He confirmed compliance with medications and denies any bleeding, melena, hematuria, or confusion. On 03/11/25 Patient was seen at bedside this morning. He repored improved alertness and energy. No chest pain or dyspnea. He continues to feel mild leg heaviness on the left side, less severe. Denied palpitations, nausea, vomiting, melena, hematuria or headache. He is aware of undergoing left heart catheterization. On 03/12/25. Left heart catheterization revealed severe three-vessel coronary artery disease and the plan is to transfer for CABG evaluation for that reason today, 03/12/25 the patient will be transferred to a high level care facility for this procedure. Review of Systems Allergy- NKDA Patient was seen today at the bedside. Cardiovascular- deny acute chest pain or shortness of breath or cough or palpitation Respiratory denies cough or short of breath or wheezing Gastrointestinal- denies any rectal bleeding, Musculoskeletal-denies acute joint swelling or redness Neurological- denies acute dysarthria, dysphagia, change in vision Psychiatry- denies depression or SI or HI Skin- denies acute rash or purpura Examination General: Awake, alert, NAD HEENT: PERRLA, no nasal discharge CV: RRR, no murmur Resp: Clear lungs bilaterally Abdomen: Soft, NT, ND, BS + Extremities: * 3+ bilateral pitting edema * Absent dorsalis pedis pulses * Multiple chronic ulcerations on right lower extremity * Left leg tenderness and heaviness persist Neuro: A&O 4, no focal deficit Skin: Cool BLE, no rash Problem List/Assessment/Plan Non-ST Elevation Myocardial Infarction (NSTEMI), Type 1 Ongoing flat troponin elevation; ischemic ECG changes; no current chest pain Troponins remain elevated, cath confirme treeple vessel disease. Triple Vessel CAD Requires CABG; social work involved for transfer in progress. Acute Kidney Injury on Chronic Kidney Disease, Stage 3b likely multifactorial (hypoperfusion, sepsis, medications) Severe Hypokalemia, improving with replacement Sepsis, resolved likely secondary to right foot osteomyelitis Chronic Osteomyelitis, right great toe, status post I&D Chronic ulcers with confirmed bone involvement Peripheral Arterial Disease with Chronic Critical Limb Ischemia Absent DP pulses, ulcers, BLE edema Chronic Diastolic Heart Failure with volume overload BNP elevated, BLE edema, reduced mobility Hypertension, Controlled Type 2 Diabetes Mellitus, without current DKA or HHS Hyperlipidemia History of left testicular carcinoma, s/p orchiectomy (1993) BPH Lactic acidosis (resolved) Plan discussed with Attending Physician Dr. Narayan and patient, patient agrees with the plan. Total time spent on patient evaluation, chart review, assessment and plan, discussion discussion >35 minutes Condition at Discharge: Stable Final Diagnosis/Problems List -Osteomyelitis -CAD: Severe tripple vessel disease -PAD -Chronic Diastolic Hearth Failure with volume overoald -AD Discharge Disposition: Higher Level of Care SNF Discharge Will this Physician continue t: No Discharge Instruct/Medications Diet: Cardiac 2g Na,low cholest, Renal Activity: continue per new facility recommendations Medications: Cefepim 2 gr Vancomicin 750mg Scheduled Amlodipine Besylate (Amlodipine Besylate), 1 TAB PO DAILY, (Reported) Aspirin (Aspirin Adult Low Dose), 1 TAB PO DAILY, (Reported) Atorvastatin Calcium (Atorvastatin Calcium), 10 MG PO DAILY, (Reported) Calcium Carbonate-Cholecalcife (Calcium 500-10 mg-Mcg), 1 TAB PO BID, (Reported) Ciprofloxacin Hcl (Cipro), 1 TAB PO BID Doxycycline (Monohydrate) (Doxycycline), 100 MG PO BIDAC Furosemide (Furosemide), 1 TAB PO DAILY, (Reported) Metronidazole (Flagyl), 500 MG PO TID Rifampin (Rifampin), 300 MG PO BID Tamsulosin Hcl (Tamsulosin Hcl), 0.4 MG PO QPM, (Reported) Scheduled PRN Hydrocodone-Acetaminophen (Hydrocodone Bitartrate/AC 5-325 mg), 1 TAB PO BID PRN Miscellaneous Medications Carvedilol (Carvedilol), TAB PO, (Reported) Glipizide (Glipizide), 10 MG PO, (Reported) Glipizide (Glipizide Er), TAB PO, (Reported) Metformin HCl (Metformin Hydrochloride), 500 MG PO, (Reported) Discharge Statement: "Patient was advised to return to the ER or call 911 if any headaches, dizziness, shortness of breath, chest pain, abdominal pain, bleeding, fevers, or worsening of medical condition. Patient was counseled about treatment plan, medications, possible side effects, patientverbalized understanding. All questions were answered to the best of my ability. This discharge took greater then 30 minutes in planning, reviewing documentation, counseling the patient, and discussing with other team members." ASSESSMENT ASSESSMENT Assessment -Osteomyelitis -CAD: Severe tripple vessel disease -PAD -Chronic Diastolic Hearth Failure with volume overoald -AD Date of Service: Mar 12, 2025 Billing Provider: SHWETA CONRAD MD Common Visit Codes: 23251-HFP/OBS DISCH DAY >30min YOUSUF CAN RESIDENT Mar 12, 2025 16:59 SHWETA CONRAD MD Mar 21, 2025 21:01
[2025-03-12 21:34] LABS: INR 1.16 (0.9-1.15); Partial Thromboplastin Time 30.6 SEC (24.5-34.5); Prothrombin Time 12.1 sec (9.3-11.8)
[2025-03-13] VITALS (9 sets, daily range): BP systolic 110–143; BP diastolic 60–81; PULSE 69–95; RESP 13–19; TEMP 97.7–98.7; O2SAT 93–98
[2025-03-13] MEDS: HEPARIN DRIP/D5W 100UNITS/ML 250 ML IV SCH (02:58)
[2025-03-13 07:06] LABS: Hematocrit 28.9 % (41.0-53.0); Hemoglobin 10.1 g/dL (13.5-17.5); Mean Corpuscular Hemoglobin 33.0 pg (28.0-32.0); Mean Corpuscular Volume 94.0 fL (80.0-100.0); Nucleated Red Blood Cells % 0.1 %
[2025-03-13 07:16] LABS: INR 1.14 (0.9-1.15); Partial Thromboplastin Time 55.9 SEC (24.5-34.5); Prothrombin Time 11.9 sec (9.3-11.8)
[2025-03-13 09:39] LABS: INR 1.12 (0.9-1.15); Partial Thromboplastin Time 54.2 SEC (24.5-34.5); Prothrombin Time 11.7 sec (9.3-11.8)
--- NOTE | 2025-03-13 12:39 | DVHPN2 ---
Progress Note Date Seen: Mar 13, 2025 Has the PT tested + for MRSA If YES, has PT been informed?: No Medical Necessity Reason Pt with a Central, PICC or Fol: No Subjective Patient reports: Feels better Other Systems: turned own for cabg x [address] meghan barnes Objective vital signs Vital Sign Date Time Temp Pulse Resp B/P (MAP) Pulse Ox O2 Delivery O2 Flow Rate FiO2 03/13/25 09:35 140/76 03/13/25 09:33 77 03/13/25 09:33 97.7 17 98 97.7 03/13/25 08:00 Room Air* 0 21 Total Intake and Output 03/12/25 03/12/25 03/13/25 15:00 23:00 07:00 Intake Total 50 ml 640 ml 800 ml Output Total 1800 ml 700 ml Balance 50 ml -1160 ml 100 ml medications Current Medications Medications Dose Ordered Sig/Bandar Route Start Time Stop Time Status Last Admin Dose Admin Sodium Chloride 10 ml Q8HR IV 03/10/25 06:00 03/13/25 07:06 10 ML Acetaminophen 650 mg Q6HP PRN PO 03/10/25 00:00 Nitroglycerin 0.4 mg Q5MINP PRN SL 03/10/25 00:00 Morphine Sulfate 2 mg Q30M PRN IV 03/10/25 00:00 Amlodipine Besylate 5 mg DAILY PO 03/10/25 10:00 03/13/25 09:33 5 MG Aspirin 81 mg DAILY PO 03/10/25 10:00 03/13/25 09:33 81 MG Carvedilol 12.5 mg BID PO 03/10/25 10:00 03/13/25 09:33 12.5 MG Acetaminophen/ Hydrocodone Bitart 1 tab BID PRN PO 03/10/25 01:15 Calcium/Vitamin D 1 tab BID PO 03/10/25 10:00 03/13/25 10:01 1 TAB Atorvastatin Calcium 40 mg DAILY PO 03/10/25 10:00 03/13/25 09:30 40 MG Sodium Chloride 1,000 ml @ 100 mls/hr Q10H IV 03/10/25 09:45 03/13/25 09:42 100 MLS/HR Cefepime HCl 50 ml @ 12.5 mls/hr Q12HR IV 03/10/25 22:00 03/13/25 09:38 12.5 MLS/HR Vancomycin HCl 0 ml @ 0 mls/hr UD IV 03/10/25 11:00 Pregabalin 50 mg BID PO 03/10/25 22:00 03/13/25 09:34 50 MG Furosemide 40 mg DAILY IV 03/12/25 10:00 03/13/25 09:35 40 MG Examination: GENERAL:Abnormal, HEENT:Abnormal, LUNGS:Abnormal, CVS:Abnormal, ABDOMEN:Abnormal laboratory and microbiology Laboratory Tests 03/13/25 05:41 03/12/25 05:59 Test 03/12/25 05:59 Range/Units Serum Glucose 147 H 74-106 mg/dL Microbiology Date/Time Source Procedure Growth Status 03/10/25 15:00 Nose MRSA Screen - Final Complete 03/09/25 12:00 Blood Blood Culture - Preliminary NO GROWTH AFTER 72 HOURS OF INCUBATION. Resulted Problem List/Assessment/Plan Problem List/Assessment/Plan nstemi severe cad PAD non healing ulcers DM ckd advanced C shows severe 3v cad transfer for cabg eval (pt may deemed inoperable in which case i suspect he will need complex PCI) asa heparin gtt statin abx as indicated i would recommend pt going home on asa/ plavix/ statin and improving functional status and wound care consider pci once more stable or indefinite medical therapy given his c omorbidites pt is agreeable to plan Plan discussed with: Patient Dietary Evaluation Review Recommendations by RD: Protein Supplementation Comments: 1) Initiate Pro-Stat @ 30 mL qd 2) Initiate MVI @ 1 tb qd 3) Advance to 60g CCHO renal diet when medically feasible 4) Initiate Nepro bid when medically feasible 5) Follow-up with nephrology, neurology, and cardiology 6) Continue to monitor I&O, labs, and skin integrity Expected Outcomes/Goals: 1) labs to improve 2) diet to advance 3) wounds to improve 4) f/u in 3-5 days Date of Service: Mar 13, 2025 Billing Provider: JOSE DE JESSU DUDLEY MD Common Visit Codes: NOT BILLABLE JOSE DE JESUS DUDLEY MD Mar 13, 2025 12:39
[2025-03-13] MEDS: HYDROcodone-ACET 5/325MG TAB PO PRN (14:45)
--- NOTE | 2025-03-13 20:04 | DVHPNRES ---
Progress Note Date Seen: Mar 13, 2025 Resident Creating Document: FABRICIO CALVIN RESIDENT Has the PT tested + for MRSA If YES, has PT been informed?: No Medical Necessity Reason Pt with a Central, PICC or Fol: No Subjective Review of Systems History of Present Illness Patient is 74 years old male with past medical history of hypertension, diabetes mellitus 2, CKD, peripheral artery disease, hyperlipidemia, right foot osteomyelitis, chronic bilateral leg wound, history of testicular cancer diagnosed in 1993, status post left orchiectomy came with a complaint of presyncope. As per patient since he got discharged from [facility] on 03/04/25 he has been feeling dizzy and unsteady when walking. Patient also reported feeling weak and also heaviness of the left lower extremity for last couple of days since he got discharged from the hospital. Patient also reported having 1 episode of vomiting yesterday with food content, no blood. Because of the the dizziness and heaviness of the left leg patient called 911 and EMS arrived. Patient was recently discharged from [facility] with the diagnosis of right lower extremity cellulitis and osteomyelitis of right great toe, status post incision and drainage by Dr. Valdez. During hospital course patient was treated With the Zosyn and vancomycin and discharged with a oral ciprofloxacin, doxycycline and rifampin recommended by infectious disease doctor Dr. Colon. Initial lab workup revealed hypokalemia with potassium 2.5, serum creatinine 2.43, BUN 58, lactic acidosis with lactic acid 2.7, troponin I 531. UDS Negative. EKG revealed RBBB with ischemic changes in the chest leads-no previous EKG to compare. 03/10/2025 The patient was seen at bedside. He reports ongoing left leg heaviness and discomfort, particularly with ambulation or standing. Denies chest pain, shortness of breath, or palpitations. Continues to feel weak and mildly nauseated but is tolerating oral intake. He is aware of his recent elevated troponin levels and understands the working diagnosis of NSTEMI. He confirms compliance with medications and denies any bleeding, melena, hematuria, or confusion. 03/11/25 Patient was seen at bedside this morning. He reports improved alertness and energy. No chest pain or dyspnea. He continues to feel mild leg heaviness on the left side, now less severe. Denies palpitations, nausea, vomiting, melena, hematuria or headache. He is aware of undergoing left heart catheterization today. And left heart catheterization revealed severe three-vessel coronary artery disease and the plan is to transfer for CABG evaluation. His wounds are being treated appropriately with wound care and podiatry consult. 03/13/25 Patient was seen and examined at the bedside today. He remains stable and cooperative. Denies chest pain, dyspnea, nausea, or dizziness. Reports being tired from ongoing hospitalization but is understanding of the need for CABG and awaiting transfer. disabilities services officer update: Patient was rejected from [place] for CABG. disabilities services officer are working actively to identify another tertiary center willing to accept him for urgent CABG evaluation. Wound care continues to be performed daily. Dressing changes noted on right great toe. No drainage, foul odor, or signs of systemic infection. Patient remains on heparin drip as part of the ACS protocol. Past Medical History hypertension, diabetes mellitus, CKD, peripheral artery disease, hyperlipidemia, right foot osteomyelitis, chronic bilateral leg wound, history of testicular cancer diagnosed in 1993, status post left orchiectomy Past Surgical History Left orchiectomy due to testicular carcinoma, Tonsillectomy, right great toe incision and drainage due to osteomyelitis, cataract surgery Past Social History Patient lives at home, denies smoking/alcoholism/drug abuse Review of Systems Allergy- NKDA Patient was seen today at the bedside. Cardiovascular- deny acute chest pain or shortness of breath or cough or palpitation Respiratory denies cough or short of breath or wheezing Gastrointestinal- denies any rectal bleeding, Musculoskeletal-denies acute joint swelling or redness Neurological- denies acute dysarthria, dysphagia, change in vision Psychiatry- denies depression or SI or HI Skin- denies acute rash or purpura Other Systems: Objective vital signs Vital Sign Date Time Temp Pulse Resp B/P (MAP) Pulse Ox O2 Delivery O2 Flow Rate FiO2 03/13/25 19:55 69 13 97 Room Air* 0 21 03/13/25 16:33 98.6 110/60 (77) 98.6 Total Intake and Output 03/12/25 03/12/25 03/13/25 15:00 23:00 07:00 Intake Total 50 ml 640 ml 800 ml Output Total 1800 ml 700 ml Balance 50 ml -1160 ml 100 ml medications Current Medications Medications Dose Ordered Sig/Bandar Route Start Time Stop Time Status Last Admin Dose Admin Sodium Chloride 10 ml Q8HR IV 03/10/25 06:00 03/13/25 14:04 10 ML Acetaminophen 650 mg Q6HP PRN PO 03/10/25 00:00 Nitroglycerin 0.4 mg Q5MINP PRN SL 03/10/25 00:00 Morphine Sulfate 2 mg Q30M PRN IV 03/10/25 00:00 Amlodipine Besylate 5 mg DAILY PO 03/10/25 10:00 03/13/25 09:33 5 MG Aspirin 81 mg DAILY PO 03/10/25 10:00 03/13/25 09:33 81 MG Carvedilol 12.5 mg BID PO 03/10/25 10:00 03/13/25 09:33 12.5 MG Acetaminophen/ Hydrocodone Bitart 1 tab BID PRN PO 03/10/25 01:15 03/13/25 14:45 1 TAB Calcium/Vitamin D 1 tab BID PO 03/10/25 10:00 03/13/25 10:01 1 TAB Atorvastatin Calcium 40 mg DAILY PO 03/10/25 10:00 03/13/25 09:30 40 MG Sodium Chloride 1,000 ml @ 100 mls/hr Q10H IV 03/10/25 09:45 03/13/25 16:12 100 MLS/HR Cefepime HCl 50 ml @ 12.5 mls/hr Q12HR IV 03/10/25 22:00 03/13/25 09:38 12.5 MLS/HR Vancomycin HCl 0 ml @ 0 mls/hr UD IV 03/10/25 11:00 Pregabalin 50 mg BID PO 03/10/25 22:00 03/13/25 09:34 50 MG Furosemide 40 mg DAILY IV 03/12/25 10:00 03/13/25 09:35 40 MG Clopidogrel Bisulfate 75 mg DAILY PO 03/14/25 10:00 Examination Examination General: Awake, alert, NAD HEENT: PERRLA, no nasal discharge CV: RRR, no murmur Resp: Clear lungs bilaterally Abdomen: Soft, NT, ND, BS + Extremities: * 3+ bilateral pitting edema * Absent dorsalis pedis pulses * Multiple chronic ulcerations on right lower extremity * Left leg tenderness and heaviness persist Neuro: A&O 4, no focal deficit Skin: Cool BLE, no rash laboratory and microbiology Laboratory Tests 03/13/25 05:41 03/12/25 05:59 Test 03/12/25 05:59 Range/Units Serum Glucose 147 H 74-106 mg/dL Microbiology Date/Time Source Procedure Growth Status 03/10/25 15:00 Nose MRSA Screen - Final Complete 03/09/25 12:00 Blood Blood Culture - Preliminary NO GROWTH AFTER 72 HOURS OF INCUBATION. Resulted Problem List/Assessment/Plan Problem List/Assessment/Plan Assessment Non-ST Elevation Myocardial Infarction (NSTEMI), Type 1 Ongoing flat troponin elevation; ischemic ECG changes; no current chest pain Troponins remain elevated, cath confirms ischemic burden Triple Vessel CAD New ? Requires CABG; social work involved for transfer Acute Kidney Injury on Chronic Kidney Disease, Stage 3b? likely multifactorial (hypoperfusion, sepsis, medications) Severe Hypokalemia, improving with replacement Sepsis, resolved likely secondary to right foot osteomyelitis Chronic Osteomyelitis, right great toe, status post I&D Chronic ulcers with confirmed bone involvement Peripheral Arterial Disease with Chronic Critical Limb Ischemia Absent DP pulses, ulcers, BLE edema Chronic Diastolic Heart Failure with volume overload BNP elevated, BLE edema, reduced mobility Hypertension, Controlled Type 2 Diabetes Mellitus, without current DKA or HHS Hyperlipidemia History of left testicular carcinoma, s/p orchiectomy (1993) BPH Lactic acidosis (resolved) Left lower extremity discomfort, possibly neurovascular Plan 1. NSTEMI Type 1 Elevated troponin with ischemia. Cath shows critical multivessel disease. 2. Severe 3-Vessel CAD RCA, LAD, and Circumflex disease with 7090% stenosis. Awaiting CABG. [facility] declined. Active protective services social worker effort for alternate center. 3. Volume Overload / CHF Exacerbation Elevated BNP (496). Diuresed with IV Lasix. Monitoring for response. 4. AD on CKD, Stage 3b 5. Chronic Osteomyelitis of Right Toe Wound clean, no systemic signs. 6. Sepsis Resolved Afebrile, HD stable, blood cultures negative. 7. Hypokalemia Resolved Now normalized at 3.8 8. Peripheral Arterial Disease with Left LE Ischemia Weak left pedal pulses. Requires vascular monitoring. 9. Nutritional Deficiency / Catabolic State Malnutrition managed with Prostat and MBI 10. Diabetes Mellitus Type 2 Well controlled in hospital 11. Hyperlipidemia On statin therapy 12. Wound Care Needs Daily dressing changes, SCDs, offloading ? System-plascencia Plan Cardiology * Continue Heparin drip per ACS protocol * Continue ASA 81 mg PO QD and Atorvastatin 40 mg PO QD, Plavix * Cardiology: Monitoring troponin, BNP, vitals * Transfer pending for CABG ? coordinate with alternate tertiary center * If no facility accepts: consider PCI consultation * Continue Lasix 40 MG IV, Plavix and Coreg Renal/Electrolyte * AD trending down, Cr ? maintain hydration, avoid nephrotoxins * Recheck BMP, Mg, Phos * Continue oral KCl 20 mEq BID until >4.0 * Daily I/Os, weights, and strict fluid balance * Continue Nephrology follow-up Infectious Disease / Wound * Continue Vancomycin + Cefepime until wound culture final * No systemic signs of infection * Blood cultures and MRSA screen are negative * Daily dressing changes with wound care nurse consult Peripheral Arterial Disease / Vascular * Left LE weak pulse ? monitor for ischemic changes * Consider vascular surgery consult if perfusion worsens * Maintain SCDs, elevate legs, promote mobility Nutrition * Continue Prostat 30 mL PO daily, MBI 1 tab PO QD * Diet: CCHO renal, high protein (60g/day) * Nutrition consult if not improving Social Disposition * Rejected from [place] for CABG * disabilities services officer working on placement at alternate facility * Keep patient and family updated daily Neuro/Psych * No new deficits * Monitor mental status post-cath, during diuresis * Encourage engagement in care decisions Prophylaxis * GI: Continue Pantoprazole 40 mg IV QD * Skin: turning protocol, wound care Goals of care, Code status- Full Code ; discussed with >15 minutes Plan discussed with Attending Physician , nursing staff, Total time spent on patient evaluation, chart review, assessment and plan, discussion discussion >35 minutes Plan discussed with: Patient Dietary Evaluation Review Recommendations by RD: Protein Supplementation Comments: 1) Initiate Pro-Stat @ 30 mL qd 2) Initiate MVI @ 1 tb qd 3) Advance to 60g CCHO renal diet when medically feasible 4) Initiate Nepro bid when medically feasible 5) Follow-up with nephrology, neurology, and cardiology 6) Continue to monitor I&O, labs, and skin integrity Expected Outcomes/Goals: 1) labs to improve 2) diet to advance 3) wounds to improve 4) f/u in 3-5 days Date of Service: Mar 13, 2025 Billing Provider: SHWETA CONRAD MD Common Visit Codes: [id number] INP/OBS CARE(HIGH) FABRICIO CALVIN RESIDENT Mar 13, 2025 20:04 SHWETA CONRAD MD Mar 21, 2025 02:17
[2025-03-13 21:10] LABS: Hematocrit 29.3 % (41.0-53.0); Hemoglobin 10.0 g/dL (13.5-17.5); Mean Corpuscular Hemoglobin 32.4 pg (28.0-32.0); Mean Corpuscular Volume 95.3 fL (80.0-100.0); Nucleated Red Blood Cells % 0.0 %
[2025-03-13 21:18] LABS: Alanine Aminotransferase 13 U/L (7-40); Alkaline Phosphatase 62 U/L (46-116); Anion Gap 8 (5-15); BUN/Creatinine Ratio 21.6 (10.0-20.0); Calcium 8.7 mg/dL (8.7-10.4); Carbon Dioxide 27 mmol/L (20-31); Potassium 4.3 mmol/L (3.5-5.1); Total Protein 5.7 g/dL (5.7-8.2)
[2025-03-13 21:19] LABS: Bilirubin, Total 0.5 mg/dL (0.2-1.0)
[2025-03-13 21:33] LABS: Albumin 2.9 g/dL (3.2-4.8); Blood Urea Nitrogen 48 mg/dL (9-23); Chloride 97 mmol/L (98-107); Glucose 255 mg/dL (74-106); Sodium 132 mmol/L (136-145)
[2025-03-14] VITALS (8 sets, daily range): BP systolic 109–143; BP diastolic 54–79; PULSE 68–103; RESP 16–20; TEMP 97.7–99.8; O2SAT 92–98
[2025-03-14 06:34] LABS: Hematocrit 27.6 % (41.0-53.0); Hemoglobin 9.6 g/dL (13.5-17.5); Mean Corpuscular Hemoglobin 33.2 pg (28.0-32.0); Mean Corpuscular Volume 94.9 fL (80.0-100.0); Nucleated Red Blood Cells % 0.0 %
[2025-03-14] MEDS: VANCOMYCIN 750mg/100mL D5W or NS KIT IV ONE (11:18)
[2025-03-14] MEDS: CLOPIDOGREL BISULFATE 75 MG TAB PO SCH (11:20)
--- NOTE | 2025-03-14 13:36 | DVHINCON2 ---
Date Seen: Mar 14, 2025 Reason for Consultation Right hallux wound History of Present Illness Patient is 74 years old male with past medical history of hypertension, diabetes mellitus 2, CKD, peripheral artery disease, hyperlipidemia, right foot osteomyelitis, chronic bilateral leg wound, history of testicular cancer diagnosed in 1993, status post left orchiectomy came with a complaint of presyncope. As per patient since he got discharged from [facility] on 03/04/25 he has been feeling dizzy and unsteady when walking. Patient also reported feeling weak and also heaviness of the left lower extremity for last couple of days since he got discharged from the hospital. Patient also reported having 1 episode of vomiting yesterday with food content, no blood. Because of the the dizziness and heaviness of the left leg patient called 911 and EMS arrived. Patient was recently discharged from [facility] with the diagnosis of right lower extremity cellulitis and osteomyelitis of right great toe, status post incision and drainage by Dr. Valdez. During hospital course patient was treated With the Zosyn and vancomycin and discharged with a oral ciprofloxacin, doxycycline and rifampin recommended by infectious disease doctor Dr. Colon. Initial lab workup revealed hypokalemia with potassium 2.5, serum creatinine 2.43, BUN 58, lactic acidosis with lactic acid 2.7, troponin I 531. UDS Negative. EKG revealed RBBB with ischemic changes in the chest leads-no previous EKG to compare. Past Medical History See H&P Past Surgical History See H&P Family History: Cerebrovascular accident (CVA) G8 MOTHER FH: CABG (coronary artery bypass surgery) G8 FATHER FH: liver disease G8 FATHER Hepatitis C G8 FATHER Allergies: Coded Allergies: NO KNOWN ALLERGIES (Unverified , 06/12/21) Home Meds Active Scripts Metronidazole (Flagyl) 500 Mg Tab, 500 MG PO TID for 42 Days, #126 TAB Prov:MARITZA COLON MD 03/04/25 Hydrocodone-Acetaminophen (Hydrocodone Bitartrate/AC 5-325 mg) 1 Tab Tab, 1 TAB PO BID PRN, #40 TAB Prov:ADARSH WILLIS MD 03/04/25 Rifampin (Rifampin) 300 Mg Cap, 300 MG PO BID, #90 CAP Prov:ADARSH WILLIS MD 03/04/25 Ciprofloxacin Hcl (Cipro) 500 Mg Tab, 1 TAB PO BID, #90 TAB Prov:WILLIS,ADARSH M MD 03/04/25 Doxycycline (Monohydrate) (Doxycycline) 100 Mg Cap, 100 MG PO BIDAC, #90 CAP Prov:ADARSH WILLIS MD 03/04/25 Reported Medications Tamsulosin Hcl (Tamsulosin Hcl) 0.4 Mg Cap, 0.4 MG PO QPM for 30 Days, MG 02/24/25 Amlodipine Besylate (Amlodipine Besylate) 5 Mg Tab, 1 TAB PO DAILY 02/24/25 Furosemide (Furosemide) 40 Mg Tab, 1 TAB PO DAILY 02/24/25 Aspirin (Aspirin Adult Low Dose) 81 Mg Tab, 1 TAB PO DAILY 02/24/25 Glipizide (Glipizide Er) 2.5 Mg Tab, TAB PO 02/24/25 Carvedilol (Carvedilol) 12.5 Mg Tab, TAB PO 02/24/25 Calcium Carbonate-Cholecalcife (Calcium 500-10 mg-Mcg) 1 Chw Chw, 1 TAB PO BID 02/24/25 Atorvastatin Calcium (ATORVASTATIN CALCIUM) 10 Mg Tab, 10 MG PO DAILY, TAB 06/13/21 Glipizide (Glipizide) 10 Mg Tab, 10 MG PO, TAB 06/13/21 Metformin HCl (Metformin Hydrochloride) 500 Mg/5 Ml Gwendolyn, 500 MG PO, ML 06/13/21 Current Medications Current Medications Medications (Trade) Dose Ordered Sig/Bandar Route PRN Reason Start Time Stop Time Status Last Admin Clopidogrel Bisulfate (Plavix) 75 mg DAILY PO 03/14/25 10:00 03/14/25 11:20 Vital Signs Vital Signs Date Time Temp Pulse Resp B/P (MAP) Pulse Ox O2 Delivery O2 Flow Rate FiO2 03/14/25 13:00 97.7 80 20 143/56 (85) 98 97.7 03/13/25 19:55 Room Air* 0 21 Physical Exam Dermatological: Skin is dry with mild erythema and some maceration around the wound site No gross deformities noted Mild non-pitting edema present bilaterally Sutures intact to right medial hallux Vascular: Dorsalis pedis and posterior tibial pulses are 1+ bilaterally Capillary refill is under 2 seconds Skin temperature is warm bilaterally Neurologic: Protective sensation is absent on the plantar forefoot bilaterally Monofilament testing reveals decreased sensation in multiple plantar sites Musculoskeletal: Range of motion at the ankle and MTP joints is within normal limits. Strength is 5/5 in all tested muscle groups. Gait is antalgic due to offloading of the affected limb. Labs/Diagnostic Data Labs Test 03/14/25 05:20 03/13/25 20:45 03/13/25 09:10 03/10/25 19:34 Range/Units White Blood Count 9.8 4.4-10.8 10^3/uL Red Blood Count 2.91 L 4.5-5.90 10^6/uL Hemoglobin 9.6 L 13.5-17.5 g/dL Hematocrit 27.6 L 41.0-53.0 % Mean Corpuscular Volume 94.9 80.0-100.0 fL Mean Corpuscular Hemoglobin 33.2 H 28.0-32.0 pg Mean Corpuscular Hemoglobin Concent 34.9 32.0-36.0 g/dL Red Cell Distribution Width 15.4 H 11.8-14.3 % Platelet Count 159 140-450 10^3/uL Mean Platelet Volume 8.2 6.9-10.8 fL Neutrophils (%) (Auto) 79.6 37.0-80.0 % Lymphocytes (%) (Auto) 7.6 L 10.0-50.0 % Monocytes (%) (Auto) 9.8 0.0-12.0 % Eosinophils (%) (Auto) 2.7 0.0-7.0 % Basophils (%) (Auto) 0.3 0.0-2.0 % Neutrophils # (Auto) 7.8 1.6-8.6 10 ^3/uL Lymphocytes # (Auto) 0.7 0.4-5.4 10 ^3/uL Monocytes # (Auto) 1.0 0-1.3 10 ^3/uL Eosinophils # (Auto) 0.3 0-0.8 10 ^3/uL Basophils # (Auto) 0 0-0.2 10 ^3/uL Nucleated Red Blood Cells 0.0 % Creatinine 2.10 H 0.700-1.30 mg/dL Glomerular Filtration Rate Calc 32 >90 mL/min Random Vancomycin Level 13.4 H 5-10 ug/mL Sodium Level 132 L 136-145 mmol/L Potassium Level 4.3 3.5-5.1 mmol/L Chloride Level 97 L 98-107 mmol/L Carbon Dioxide Level 27 20-31 mmol/L Anion Gap 8 5-15 Blood Urea Nitrogen 48 H 9-23 mg/dL BUN/Creatinine Ratio 21.6 H 10.0-20.0 Serum Glucose 255 #H 74-106 mg/dL Calcium Level 8.7 8.7-10.4 mg/dL Total Bilirubin 0.5 0.2-1.0 mg/dL Aspartate Amino Transferase (AST) 26 13-40 U/L Alanine Aminotransferase (ALT) 13 7-40 U/L Alkaline Phosphatase 62 46-116 U/L Total Protein 5.7 5.7-8.2 g/dL Albumin 2.9 L 3.2-4.8 g/dL Prothrombin Time 11.7 9.3-11.8 sec Prothrombin Time INR 1.12 0.9-1.15 Activated Partial Thromboplast Time 54.2 H 24.5-34.5 SEC B-Type Natriuretic Peptide 496.13 0-100 pg/mL Test 03/10/25 12:57 03/10/25 08:41 03/10/25 05:03 03/10/25 03:16 Range/Units Troponin I High Sensitivity 492 *H </=54 ng/L Magnesium Level 2.1 1.6-2.6 mg/dL Vitamin B12 Level 808 211-911 pg/mL Vitamin D 25-Hydroxy 56.4 30.0-100 ng/mL Folic Acid 15.13 >5.38 ng/mL Direct Bilirubin 0.5 H <0.3 mg/dL Thyroid Stimulating Hormone (TSH) 1.47 0.55-4.78 uIU/mL Test 03/10/25 00:45 03/09/25 16:42 Range/Units Urine Color Yellow Yellow Urine Clarity Clear Clear Urine pH 5.5 5.0-9.0 Urine Specific [place] 1.008 1.001-1.035 Urine Protein Negative Negative Urine Ketones Negative Negative Urine Blood Negative Negative /uL Urine Nitrite Negative Negative Urine Bilirubin Negative Negative Urine Urobilinogen Normal Negative mg/dL Urine Leukocyte Esterase Negative Negative /uL Urine RBC None seen 0 - 3 /hpf Urine Microscopic WBC < 1 0-3 /HPF Urine Squamous Epithelial Cells Few <5 /hpf Urine Bacteria None seen None Seen /hpf Urine Hyaline Casts Few 0 - 2 /lpf Urine Glucose Normal Normal mg/dL Urine Opiates Screen Neg NEGATIVE Urine Fentanyl Screen Neg NEGATIVE Urine Barbiturates Screen Neg NEGATIVE Urine Phencyclidine Screen Neg NEGATIVE Urine Amphetamines Screen Neg NEGATIVE Urine Benzodiazepines Screen Neg NEGATIVE Urine Cocaine Screen Neg NEGATIVE Urine Cannabinoids Screen Neg NEGATIVE Lactic Acid Level 1.7 0.4-2.0 mmol/L Microbiology Date/Time Source Procedure Growth Status 03/10/25 15:00 Nose MRSA Screen - Final Complete 03/09/25 12:00 Blood Blood Culture - Final NO GROWTH AFTER 5 DAYS OF INCUBATION. Complete Problems(with codes): (1) Hyperkalemia (2) Azotemia (3) Urinary retention (4) Generalized weakness (5) Near syncope (6) Autonomic dysfunction (7) Hypokalemia (8) Foot osteomyelitis, right Plan/Recommendation ASSESSMENT: Patient is a 74 year old seen on the floor for a worsening ulcer PLAN: - The patients chart was reviewed, clinical findings were discussed with the patient, the etiologies of the conditions were discussed in detail, and a treatment plan was agreed to at this time, with both oral and written instructions provided. - reviewed advanced imaging - the skin us that the incision appears to be healing appropriately - recommend Betadine-soaked gauze on the incision - we will follow be after discharge - no surgical intervention recommended at this point All questions were answered and concerns addressed to the patient's satisfaction. The patient was given the phone number to the clinic and was told how to make contact with the clinic should any concerns or questions arise. Patient understands that if any questions or concerns arise prior to the next appointment, we should be contacted immediately. FOLLOW-UP: Continue to follow while inpatient Plan discussed with: Patient Date of Service: Mar 14, 2025 Billing Provider: MENDOZA VALDEZ DPM Common Visit Codes: CONSULT ONLY Consultation Codes: [id number] CONSULT <80MIN MENDOZA VALDEZ DPM Mar 14, 2025 13:36
--- NOTE | 2025-03-14 16:06 | DVHDSRES ---
Discharge Summary Date of Admission Resident Creating Document: FABRICIO CALVIN RESIDENT Mar 09, 2025 at 23:50 Date of Discharge: Mar 14, 2025 Admitting Diagnosis 1. NSTEMI Type 1, status post conservative management 2. Severe triple-vessel coronary artery disease, non-surgical candidate 3. Acute kidney injury on CKD Stage 3b, improved 4. Volume overload/CHF exacerbation, with elevated BNP, resolved with diuresis 5. Right great toe chronic osteomyelitis, wound stable 6. Sepsis resolved 7. Hypokalemia resolved 8. Peripheral arterial disease with left LE ischemia (weak pulse) 9. Chronic right foot wound under wound care 10. Hypertension controlled 11. Hyperlipidemia on statin 12. Type 2 diabetes mellitus stable 13. Protein-energy malnutrition improved with support 14. Anemia of chronic disease, stable Wounds: Bilateral Wilkes and foot wounds Labs/Diagnostic Data: Laboratory Results Test 03/14/25 05:20 03/13/25 20:45 03/13/25 09:10 03/10/25 19:34 White Blood Count 9.8 10^3/uL (4.4-10.8) Red Blood Count 2.91 10^6/uL (4.5-5.90) Hemoglobin 9.6 g/dL (13.5-17.5) Hematocrit 27.6 % (41.0-53.0) Mean Corpuscular Volume 94.9 fL (80.0-100.0) Mean Corpuscular Hemoglobin 33.2 pg (28.0-32.0) Mean Corpuscular Hemoglobin Concent 34.9 g/dL (32.0-36.0) Red Cell Distribution Width 15.4 % (11.8-14.3) Platelet Count 159 10^3/uL (140-450) Mean Platelet Volume 8.2 fL (6.9-10.8) Neutrophils (%) (Auto) 79.6 % (37.0-80.0) Lymphocytes (%) (Auto) 7.6 % (10.0-50.0) Monocytes (%) (Auto) 9.8 % (0.0-12.0) Eosinophils (%) (Auto) 2.7 % (0.0-7.0) Basophils (%) (Auto) 0.3 % (0.0-2.0) Neutrophils # (Auto) 7.8 10 ^3/uL (1.6-8.6) Lymphocytes # (Auto) 0.7 10 ^3/uL (0.4-5.4) Monocytes # (Auto) 1.0 10 ^3/uL (0-1.3) Eosinophils # (Auto) 0.3 10 ^3/uL (0-0.8) Basophils # (Auto) 0 10 ^3/uL (0-0.2) Nucleated Red Blood Cells 0.0 % Creatinine 2.10 mg/dL (0.700-1.30) Glomerular Filtration Rate Calc 32 mL/min (>90) Random Vancomycin Level 13.4 ug/mL (5-10) Sodium Level 132 mmol/L (136-145) Potassium Level 4.3 mmol/L (3.5-5.1) Chloride Level 97 mmol/L (98-107) Carbon Dioxide Level 27 mmol/L (20-31) Anion Gap 8 (5-15) Blood Urea Nitrogen 48 mg/dL (9-23) BUN/Creatinine Ratio 21.6 (10.0-20.0) Serum Glucose 255 mg/dL (74-106) Calcium Level 8.7 mg/dL (8.7-10.4) Total Bilirubin 0.5 mg/dL (0.2-1.0) Aspartate Amino Transferase (AST) 26 U/L (13-40) Alanine Aminotransferase (ALT) 13 U/L (7-40) Alkaline Phosphatase 62 U/L (46-116) Total Protein 5.7 g/dL (5.7-8.2) Albumin 2.9 g/dL (3.2-4.8) Prothrombin Time 11.7 sec (9.3-11.8) Prothrombin Time INR 1.12 (0.9-1.15) Activated Partial Thromboplast Time 54.2 SEC (24.5-34.5) B-Type Natriuretic Peptide 496.13 pg/mL (0-100) Test 03/10/25 12:57 03/10/25 08:41 03/10/25 05:03 03/10/25 03:16 Troponin I High Sensitivity 492 ng/L (</=54) Magnesium Level 2.1 mg/dL (1.6-2.6) Vitamin B12 Level 808 pg/mL (211-911) Vitamin D 25-Hydroxy 56.4 ng/mL (30.0-100) Folic Acid 15.13 ng/mL (>5.38) Direct Bilirubin 0.5 mg/dL (<0.3) Thyroid Stimulating Hormone (TSH) 1.47 uIU/mL (0.55-4.78) Test 03/10/25 00:45 03/09/25 16:42 Urine Color Yellow (Yellow) Urine Clarity Clear (Clear) Urine pH 5.5 (5.0-9.0) Urine Specific [place] 1.008 (1.001-1.035) Urine Protein Negative (Negative) Urine Ketones Negative (Negative) Urine Blood Negative /uL (Negative) Urine Nitrite Negative (Negative) Urine Bilirubin Negative (Negative) Urine Urobilinogen Normal mg/dL (Negative) Urine Leukocyte Esterase Negative /uL (Negative) Urine RBC None seen /hpf (0 - 3) Urine Microscopic WBC < 1 /HPF (0-3) Urine Squamous Epithelial Cells Few /hpf (<5) Urine Bacteria None seen /hpf (None Seen) Urine Hyaline Casts Few /lpf (0 - 2) Urine Glucose Normal mg/dL (Normal) Urine Opiates Screen Neg (NEGATIVE) Urine Fentanyl Screen Neg (NEGATIVE) Urine Barbiturates Screen Neg (NEGATIVE) Urine Phencyclidine Screen Neg (NEGATIVE) Urine Amphetamines Screen Neg (NEGATIVE) Urine Benzodiazepines Screen Neg (NEGATIVE) Urine Cocaine Screen Neg (NEGATIVE) Urine Cannabinoids Screen Neg (NEGATIVE) Lactic Acid Level 1.7 mmol/L (0.4-2.0) Other Laboratory Tests 03/14/25 05:20 03/13/25 20:45 Brief Hx & Hospital Course: This is a 74-year-old male with a complex medical history of: * NSTEMI (non-ST elevation myocardial infarction) * Severe triple-vessel coronary artery disease * Chronic kidney disease (Stage 3b) * Chronic right great toe osteomyelitis * Peripheral arterial disease * Type 2 diabetes mellitus * Hypertension * Hyperlipidemia * Chronic lower extremity ulcers * History of left orchiectomy for testicular cancer The patient was initially admitted with presyncope, weakness, and left leg heaviness, shortly after discharge from another facility for right foot osteomyelitis and cellulitis. His troponins were found to be elevated (peak ~635 ng/L), and EKG showed nonspecific ischemic changes. Given ACS concern, the patient was started on Heparin drip, aspirin, and statin therapy. Left heart catheterization was performed on March 11, 2025, which revealed severe 3-vessel coronary artery disease, including critical stenoses of the RCA, LAD, and circumflex vessels. The cardiology team initially recommended CABG, and a transfer was attempted to multiple tertiary centers. Unfortunately, [facility] declined the case, and the patient was ultimately deemed not a surgical candidate due to high procedural risk and comorbidities. The cardiology team has now recommended indefinite medical therapy, with consideration for high-risk PCI if condition worsens. The patient was educated and agreed to this conservative plan. Concurrently, the patient had AD on CKD, likely due to volume depletion which gradually improved with hydration and supportive care (Cr improved from 2.43 to 1.79, then mildly elevated again to 2.22).He also had severe hypokalemia, which responded to oral and IV replacement.His wound care was managed with daily dressing changes, and Ceftriaxone+Metrinidazole were continued on discharge. He remains afebrile with no leukocytosis, and blood and wound cultures showed no growth to date. Urine output remained adequate (>1 mL/kg/hr). Nutrition support was provided with Prostat and MBI. Functional status has gradually improved, and the patient is now clinically stable for discharge. Condition at Discharge: Stable Final Diagnosis/Problems List 1. NSTEMI Type 1, status post conservative management 2. Severe triple-vessel coronary artery disease, non-surgical candidate 3. Acute kidney injury on CKD Stage 3b, improved 4. Volume overload/CHF exacerbation, with elevated BNP, resolved with diuresis 5. Right great toe chronic osteomyelitis, wound stable 6. Sepsis resolved 7. Hypokalemia resolved 8. Peripheral arterial disease with left LE ischemia (weak pulse) 9. Chronic right foot wound under wound care 10. Hypertension controlled 11. Hyperlipidemia on statin 12. Type 2 diabetes mellitus stable 13. Protein-energy malnutrition improved with support 14. Anemia of chronic disease, stable Discharge Disposition: Home SNF Discharge Will this Physician continue t: No Discharge Instruct/Medications Diet: Cardiac 2g Na,low cholest, Renal Activity: No Restrictions, As Tolerated Follow Up/Referral: 1. Cardiology Follow-Up * In: 35 days post-discharge * Purpose: Reassess for PCI candidacy, monitor cardiac status 2. Primary Care Physician (PCP) * In: 7 days * Purpose: Review hospital course, labs, medication reconciliation, wound status 4. Wound Care Clinic * In: 1 week * Purpose: Evaluate wound healing and adjust care as needed 5. Nephrology * In: 23 weeks * Purpose: Monitor kidney function and electrolytes 6. Home Health Nursing Services * Initiated at discharge: For wound care, IV antibiotic administration, and monitoring vitals/labs Medications: Continue Home medications Cardiac * Aspirin 81 mg PO daily Antiplatelet * Clopidogrel (Plavix) 75 mg PO daily Antiplatelet * Atorvastatin 40 mg PO daily Lipid-lowering, plaque stabilization Infection/Wound PICC line with Ceftriaxone 1g daily for 5 weeks Metronidazole 500 PO TID IV FOR 5 weeks ? Electrolyte Support * Potassium chloride 20 mEq PO BID Maintain K? > 4.0 * Magnesium oxide PO If needed based on follow-up labs Care Plan: * Patient was educated on non-surgical management of CAD, and agrees with the plan for strict risk factor control and indefinite dual antiplatelet therapy. * Cardiology outpatient follow-up to determine readiness for PCI vs continued conservative therapy. * Resume home wound care services (social service consulted). and home health with PT * PICC line placed for IV antibiotic therapy (long-term for osteomyelitis). * Continue daily dressing changes at home. * Monitor kidney function and electrolytes with PCP or nephrology. * Encourage low-sodium, heart-healthy renal diet. * Home health nursing to oversee medication compliance, wound checks, PT and nutrition follow-up. Scheduled Amlodipine Besylate (Amlodipine Besylate), 1 TAB PO DAILY, (Reported) Aspirin (Aspirin Adult Low Dose), 1 TAB PO DAILY, (Reported) Atorvastatin Calcium (Atorvastatin Calcium), 10 MG PO DAILY, (Reported) Calcium Carbonate-Cholecalcife (Calcium 500-10 mg-Mcg), 1 TAB PO BID, (Reported) Ciprofloxacin Hcl (Cipro), 1 TAB PO BID Doxycycline (Monohydrate) (Doxycycline), 100 MG PO BIDAC Furosemide (Furosemide), 1 TAB PO DAILY, (Reported) Metronidazole (Flagyl), 500 MG PO TID Rifampin (Rifampin), 300 MG PO BID Tamsulosin Hcl (Tamsulosin Hcl), 0.4 MG PO QPM, (Reported) Scheduled PRN Hydrocodone-Acetaminophen (Hydrocodone Bitartrate/AC 5-325 mg), 1 TAB PO BID PRN Miscellaneous Medications Carvedilol (Carvedilol), TAB PO, (Reported) Glipizide (Glipizide), 10 MG PO, (Reported) Glipizide (Glipizide Er), TAB PO, (Reported) Metformin HCl (Metformin Hydrochloride), 500 MG PO, (Reported) Discharge Statement: "Patient was advised to return to the ER or call 911 if any headaches, dizziness, shortness of breath, chest pain, abdominal pain, bleeding, fevers, or worsening of medical condition. Patient was counseled about treatment plan, medications, possible side effects, patientverbalized understanding. All questions were answered to the best of my ability. This discharge took greater then 30 minutes in planning, reviewing documentation, counseling the patient, and discussing with other team members." ASSESSMENT ASSESSMENT Assessment 1. NSTEMI Type 1, status post conservative management 2. Severe triple-vessel coronary artery disease, non-surgical candidate 3. Acute kidney injury on CKD Stage 3b, improved 4. Volume overload/CHF exacerbation, with elevated BNP, resolved with diuresis 5. Right great toe chronic osteomyelitis, wound stable 6. Sepsis resolved 7. Hypokalemia resolved 8. Peripheral arterial disease with left LE ischemia (weak pulse) 9. Chronic right foot wound under wound care 10. Hypertension controlled 11. Hyperlipidemia on statin 12. Type 2 diabetes mellitus stable 13. Protein-energy malnutrition improved with support 14. Anemia of chronic disease, stable Date of Service: Mar 14, 2025 Billing Provider: SHWETA CONRAD MD Common Visit Codes: 39810-WZL/OBS DISCH DAY >30min FABRICIO CALVIN RESIDENT Mar 14, 2025 16:06 SHWETA CONRAD MD Mar 21, 2025 21:06
[2025-03-15] VITALS (7 sets, daily range): BP systolic 104–138; BP diastolic 47–66; PULSE 72–96; RESP 16–18; TEMP 98–99.8; O2SAT 93–99
--- NOTE | 2025-03-15 14:19 | DVHCONRES ---
Date Seen: Mar 15, 2025 Resident Creating Document: PLACIDO LUGO RESIDENT Referring Physician Dr Bruce History of Present Illness Patient is 74 years old male with past medical history of hypertension, diabetes mellitus 2, CKD, peripheral artery disease, hyperlipidemia, right foot osteomyelitis, chronic bilateral leg wound, history of testicular cancer diagnosed in 1993, status post left orchiectomy came with a complaint of presyncope. As per patient since he got discharged from [facility] on 03/04/25 he has been feeling dizzy and unsteady when walking. Patient also reported feeling weak and also heaviness of the left lower extremity for last couple of days since he got discharged from the hospital. Patient also reported having 1 episode of vomiting yesterday with food content, no blood. Because of the the dizziness and heaviness of the left leg patient called 911 and EMS arrived. Patient was recently discharged from [facility] with the diagnosis of right lower extremity cellulitis and osteomyelitis of right great toe, status post incision and drainage by Dr. Valdez. During hospital course patient was treated With the Zosyn and vancomycin and discharged with a oral ciprofloxacin, doxycycline and rifampin recommended by infectious disease doctor Dr. Colon. Initial lab workup revealed hypokalemia with potassium 2.5, serum creatinine 2.43, BUN 58, lactic acidosis with lactic acid 2.7, troponin I 531. UDS Negative. EKG revealed RBBB with ischemic changes in the chest leads-no previous EKG to compare. Nephrology consulted for clearance for PICC line placement Patient seen and examined at the bedside. Reports feeling weak. Right great toe dressing noted. Creatinine 1.94, GFR 36 which appears baseline Family History: Cerebrovascular accident (CVA) G8 MOTHER FH: CABG (coronary artery bypass surgery) G8 FATHER FH: liver disease G8 FATHER Hepatitis C G8 FATHER Allergies: Coded Allergies: NO KNOWN ALLERGIES (Unverified , 06/12/21) Home Meds Active Scripts Metronidazole (Flagyl) 500 Mg Tab, 500 MG PO TID for 42 Days, #126 TAB Prov:MARITZA COLON MD 03/04/25 Hydrocodone-Acetaminophen (Hydrocodone Bitartrate/AC 5-325 mg) 1 Tab Tab, 1 TAB PO BID PRN, #40 TAB Prov:ADARSH WILLIS MD 03/04/25 Rifampin (Rifampin) 300 Mg Cap, 300 MG PO BID, #90 CAP Prov:ADARSH WILLIS MD 03/04/25 Ciprofloxacin Hcl (Cipro) 500 Mg Tab, 1 TAB PO BID, #90 TAB Prov:ADARSH WILLIS MD 03/04/25 Doxycycline (Monohydrate) (Doxycycline) 100 Mg Cap, 100 MG PO BIDAC, #90 CAP Prov:ADARSH WILLIS MD 03/04/25 Reported Medications Tamsulosin Hcl (Tamsulosin Hcl) 0.4 Mg Cap, 0.4 MG PO QPM for 30 Days, MG 02/24/25 Amlodipine Besylate (Amlodipine Besylate) 5 Mg Tab, 1 TAB PO DAILY 02/24/25 Furosemide (Furosemide) 40 Mg Tab, 1 TAB PO DAILY 02/24/25 Aspirin (Aspirin Adult Low Dose) 81 Mg Tab, 1 TAB PO DAILY 02/24/25 Glipizide (Glipizide Er) 2.5 Mg Tab, TAB PO 02/24/25 Carvedilol (Carvedilol) 12.5 Mg Tab, TAB PO 02/24/25 Calcium Carbonate-Cholecalcife (Calcium 500-10 mg-Mcg) 1 Chw Chw, 1 TAB PO BID 02/24/25 Atorvastatin Calcium (ATORVASTATIN CALCIUM) 10 Mg Tab, 10 MG PO DAILY, TAB 06/13/21 Glipizide (Glipizide) 10 Mg Tab, 10 MG PO, TAB 06/13/21 Metformin HCl (Metformin Hydrochloride) 500 Mg/5 Ml Gwendolyn, 500 MG PO, ML 06/13/21 Vital Signs Vital Signs Date Time Temp Pulse Resp B/P (MAP) Pulse Ox O2 Delivery O2 Flow Rate FiO2 03/15/25 12:52 98.0 88 18 138/66 (90) 99 98.0 03/14/25 20:00 Room Air* 0 21 Physical Exam Patient lying in bed, in no acute distress General: Well-built, afebrile, palor, mucosae are moist Cardiovascular: Regular S1 and S2. No murmurs, gallops or rubs. No JVD elevation. No pedal edema Respiratory: Normal B/L air entry on room air. Clear lung sounds on ausculta tion Abdomen: Soft, nontender, nondistended, normoactive bowel sounds, no rebound tenderness, no organomegaly, no masses Genitourinary: Deferred MSK/skin: Right toe and bilateral shins hip dressing, clean dry and intact. Labs/Diagnostic Data Labs Test 03/15/25 05:15 03/14/25 05:20 03/13/25 20:45 03/13/25 09:10 Range/Units Creatinine 1.94 H 0.700-1.30 mg/dL Glomerular Filtration Rate Calc 36 >90 mL/min Random Vancomycin Level 17.3 H 5-10 ug/mL White Blood Count 9.8 4.4-10.8 10^3/uL Red Blood Count 2.91 L 4.5-5.90 10^6/uL Hemoglobin 9.6 L 13.5-17.5 g/dL Hematocrit 27.6 L 41.0-53.0 % Mean Corpuscular Volume 94.9 80.0-100.0 fL Mean Corpuscular Hemoglobin 33.2 H 28.0-32.0 pg Mean Corpuscular Hemoglobin Concent 34.9 32.0-36.0 g/dL Red Cell Distribution Width 15.4 H 11.8-14.3 % Platelet Count 159 140-450 10^3/uL Mean Platelet Volume 8.2 6.9-10.8 fL Neutrophils (%) (Auto) 79.6 37.0-80.0 % Lymphocytes (%) (Auto) 7.6 L 10.0-50.0 % Monocytes (%) (Auto) 9.8 0.0-12.0 % Eosinophils (%) (Auto) 2.7 0.0-7.0 % Basophils (%) (Auto) 0.3 0.0-2.0 % Neutrophils # (Auto) 7.8 1.6-8.6 10 ^3/uL Lymphocytes # (Auto) 0.7 0.4-5.4 10 ^3/uL Monocytes # (Auto) 1.0 0-1.3 10 ^3/uL Eosinophils # (Auto) 0.3 0-0.8 10 ^3/uL Basophils # (Auto) 0 0-0.2 10 ^3/uL Nucleated Red Blood Cells 0.0 % Sodium Level 132 L 136-145 mmol/L Potassium Level 4.3 3.5-5.1 mmol/L Chloride Level 97 L 98-107 mmol/L Carbon Dioxide Level 27 20-31 mmol/L Anion Gap 8 5-15 Blood Urea Nitrogen 48 H 9-23 mg/dL BUN/Creatinine Ratio 21.6 H 10.0-20.0 Serum Glucose 255 #H 74-106 mg/dL Calcium Level 8.7 8.7-10.4 mg/dL Total Bilirubin 0.5 0.2-1.0 mg/dL Aspartate Amino Transferase (AST) 26 13-40 U/L Alanine Aminotransferase (ALT) 13 7-40 U/L Alkaline Phosphatase 62 46-116 U/L Total Protein 5.7 5.7-8.2 g/dL Albumin 2.9 L 3.2-4.8 g/dL Prothrombin Time 11.7 9.3-11.8 sec Prothrombin Time INR 1.12 0.9-1.15 Activated Partial Thromboplast Time 54.2 H 24.5-34.5 SEC Test 03/10/25 19:34 03/10/25 12:57 03/10/25 08:41 03/10/25 05:03 Range/Units B-Type Natriuretic Peptide 496.13 0-100 pg/mL Troponin I High Sensitivity 492 *H </=54 ng/L Magnesium Level 2.1 1.6-2.6 mg/dL Vitamin B12 Level 808 211-911 pg/mL Vitamin D 25-Hydroxy 56.4 30.0-100 ng/mL Folic Acid 15.13 >5.38 ng/mL Test 03/10/25 03:16 03/10/25 00:45 03/09/25 16:42 Range/Units Direct Bilirubin 0.5 H <0.3 mg/dL Thyroid Stimulating Hormone (TSH) 1.47 0.55-4.78 uIU/mL Urine Color Yellow Yellow Urine Clarity Clear Clear Urine pH 5.5 5.0-9.0 Urine Specific [place] 1.008 1.001-1.035 Urine Protein Negative Negative Urine Ketones Negative Negative Urine Blood Negative Negative /uL Urine Nitrite Negative Negative Urine Bilirubin Negative Negative Urine Urobilinogen Normal Negative mg/dL Urine Leukocyte Esterase Negative Negative /uL Urine RBC None seen 0 - 3 /hpf Urine Microscopic WBC < 1 0-3 /HPF Urine Squamous Epithelial Cells Few <5 /hpf Urine Bacteria None seen None Seen /hpf Urine Hyaline Casts Few 0 - 2 /lpf Urine Glucose Normal Normal mg/dL Urine Opiates Screen Neg NEGATIVE Urine Fentanyl Screen Neg NEGATIVE Urine Barbiturates Screen Neg NEGATIVE Urine Phencyclidine Screen Neg NEGATIVE Urine Amphetamines Screen Neg NEGATIVE Urine Benzodiazepines Screen Neg NEGATIVE Urine Cocaine Screen Neg NEGATIVE Urine Cannabinoids Screen Neg NEGATIVE Lactic Acid Level 1.7 0.4-2.0 mmol/L Microbiology Date/Time Source Procedure Growth Status 03/10/25 15:00 Nose MRSA Screen - Final Complete 03/09/25 12:00 Blood Blood Culture - Final NO GROWTH AFTER 5 DAYS OF INCUBATION. Complete Assessment Acute kidney injury superimposed on CKD stage 3-now baseline Anemia likely normocytic secondary to chronic kidney disease Right foot osteomyelitis NSTEMI ? Type 1 CAD with triple-vessel disease Hypokalemia Lactic acidosis Hypertension Type 2 diabetes mellitus Plan: Given the need of IV Rocephin for 5 weeks, we recommend placing midline at this time, as the patient has CKD. PICC line can be considered as an alternative if midline is not feasible. Outpatient Nephrology follow up recommended. Rest of management per primary team. Plan discussed with patient, primary team in which all questions have been answered Case discussed with Dr. Beck Addendum Patient seen and examined, plan discussed with resident. Agree with above, we will follow closely Plan discussed with: Patient, Other (nurse) PLACIDO LUGO Mar 15, 2025 14:19 SHANTANU BECK MD Mar 15, 2025 18:19
[2025-03-15] MEDS ORDERED: LIDOCAINE 1% (LOCAL ANESTH.) PF 5ml SDV ID ONE (16:45)
[2025-03-15] MEDS: VANCOMYCIN 500mg/100mL 100 ML IV ONE (17:46)
--- NOTE | 2025-03-15 19:44 | DVHPNRES ---
Progress Note Date Seen: Mar 15, 2025 Resident Creating Document: FABRICIO CALVIN RESIDENT Has the PT tested + for MRSA If YES, has PT been informed?: No Medical Necessity Reason Pt with a Central, PICC or Fol: Yes The following are medically ne: Hernandez Catheter Reason for hernandez catheter: Bladder Retention/Obstruc Subjective Review of Systems History of Present Illness Patient is 74 years old male with past medical history of hypertension, diabetes mellitus 2, CKD, peripheral artery disease, hyperlipidemia, right foot osteomyelitis, chronic bilateral leg wound, history of testicular cancer diagnosed in 1993, status post left orchiectomy came with a complaint of presyncope. As per patient since he got discharged from [facility] on 03/04/25 he has been feeling dizzy and unsteady when walking. Patient also reported feeling weak and also heaviness of the left lower extremity for last couple of days since he got discharged from the hospital. Patient also reported having 1 episode of vomiting yesterday with food content, no blood. Because of the the dizziness and heaviness of the left leg patient called 911 and EMS arrived. Patient was recently discharged from [facility] with the diagnosis of right lower extremity cellulitis and osteomyelitis of right great toe, status post incision and drainage by Dr. Valdez. During hospital course patient was treated With the Zosyn and vancomycin and discharged with a oral ciprofloxacin, doxycycline and rifampin recommended by infectious disease doctor Dr. Colon. Initial lab workup revealed hypokalemia with potassium 2.5, serum creatinine 2.43, BUN 58, lactic acidosis with lactic acid 2.7, troponin I 531. UDS Negative. EKG revealed RBBB with ischemic changes in the chest leads-no previous EKG to compare. 03/10/2025 The patient was seen at bedside. He reports ongoing left leg heaviness and discomfort, particularly with ambulation or standing. Denies chest pain, shortness of breath, or palpitations. Continues to feel weak and mildly nauseated but is tolerating oral intake. He is aware of his recent elevated troponin levels and understands the working diagnosis of NSTEMI. He confirms compliance with medications and denies any bleeding, melena, hematuria, or confusion. 03/11/25 Patient was seen at bedside this morning. He reports improved alertness and energy. No chest pain or dyspnea. He continues to feel mild leg heaviness on the left side, now less severe. Denies palpitations, nausea, vomiting, melena, hematuria or headache. He is aware of undergoing left heart catheterization today. And left heart catheterization revealed severe three-vessel coronary artery disease and the plan is to transfer for CABG evaluation. His wounds are being treated appropriately with wound care and podiatry consult. 03/13/25 Patient was seen and examined at the bedside today. He remains stable and cooperative. Denies chest pain, dyspnea, nausea, or dizziness. Reports being tired from ongoing hospitalization but is understanding of the need for CABG and awaiting transfer. student services advisor update: Patient was rejected from [facility] for CABG. student services advisor are working actively to identify another tertiary center willing to accept him for urgent CABG evaluation. Wound care continues to be performed daily. Dressing changes noted on right great toe. No drainage, foul odor, or signs of systemic infection. Patient remains on heparin drip as part of the ACS protocol. 03/14/25 Patient seen and evaluated at bedside. This morning, the patient was able to lift both legs and stand with assistance. Shortly thereafter, physical therapist Ted evaluated the patient at bedside and noted that the patient was able to ambulate a short distance from bed to toilet with assistance, indicating improving functional mobility. The patient feels more confident ambulating with support. He denies any dizziness, lightheadedness, SOB, chest pain, or acute complaints. He is aware of his diagnosis of osteomyelitis, ongoing long-term IV antibiotic therapy, and recent PICC line placement. He is agreeable to discharge home with home health and home PT support. Nephrology team evaluated the patient today and gave clearance for PICC line placement given the need for prolonged antibiotic access and absence of contraindications. Past Medical History hypertension, diabetes mellitus, CKD, peripheral artery disease, hyperlipidemia, right foot osteomyelitis, chronic bilateral leg wound, history of testicular cancer diagnosed in 1993, status post left orchiectomy Past Surgical History Left orchiectomy due to testicular carcinoma, Tonsillectomy, right great toe incision and drainage due to osteomyelitis, cataract surgery Past Social History Patient lives at home, denies smoking/alcoholism/drug abuse Review of Systems Allergy- NKDA Patient was seen today at the bedside. Cardiovascular- deny acute chest pain or shortness of breath or cough or palpitation Respiratory denies cough or short of breath or wheezing Gastrointestinal- denies any rectal bleeding, Musculoskeletal-denies acute joint swelling or redness Neurological- denies acute dysarthria, dysphagia, change in vision Psychiatry- denies depression or SI or HI Skin- denies acute rash or purpura Objective vital signs Vital Sign Date Time Temp Pulse Resp B/P (MAP) Pulse Ox O2 Delivery O2 Flow Rate FiO2 03/15/25 17:47 140/59 03/15/25 16:46 99.8 87 18 95 99.8 03/15/25 08:30 Room Air* 0 21 Total Intake and Output 03/14/25 03/14/25 03/15/25 15:00 23:00 07:00 Intake Total 100 ml 1870 ml 1350 ml Output Total 850 ml 2400 ml Balance 100 ml 1020 ml -1050 ml medications Current Medications Medications Dose Ordered Sig/Bandar Route Start Time Stop Time Status Last Admin Dose Admin Sodium Chloride 10 ml Q8HR IV 03/10/25 06:00 03/15/25 17:27 10 ML Acetaminophen 650 mg Q6HP PRN PO 03/10/25 00:00 Nitroglycerin 0.4 mg Q5MINP PRN SL 03/10/25 00:00 Morphine Sulfate 2 mg Q30M PRN IV 03/10/25 00:00 Amlodipine Besylate 5 mg DAILY PO 03/10/25 10:00 03/15/25 17:47 5 MG Aspirin 81 mg DAILY PO 03/10/25 10:00 03/15/25 11:38 81 MG Carvedilol 12.5 mg BID PO 03/10/25 10:00 03/15/25 11:40 12.5 MG Acetaminophen/ Hydrocodone Bitart 1 tab BID PRN PO 03/10/25 01:15 03/14/25 04:03 1 TAB Calcium/Vitamin D 1 tab BID PO 03/10/25 10:00 03/15/25 11:40 1 TAB Atorvastatin Calcium 40 mg DAILY PO 03/10/25 10:00 03/15/25 11:40 40 MG Sodium Chloride 1,000 ml @ 100 mls/hr Q10H IV 03/10/25 09:45 03/15/25 11:24 100 MLS/HR Cefepime HCl 50 ml @ 12.5 mls/hr Q12HR IV 03/10/25 22:00 03/15/25 11:24 12.5 MLS/HR Vancomycin HCl 0 ml @ 0 mls/hr UD IV 03/10/25 11:00 Pregabalin 50 mg BID PO 03/10/25 22:00 03/15/25 11:36 50 MG Furosemide 40 mg DAILY IV 03/12/25 10:00 03/15/25 11:46 40 MG Clopidogrel Bisulfate 75 mg DAILY PO 03/14/25 10:00 03/15/25 11:37 75 MG Sodium Chloride 10 ml QSHIFT@10,22 IV 03/15/25 22:00 Examination General: Awake, alert, NAD HEENT: PERRLA, no nasal discharge CV: RRR, no murmur Resp: Clear lungs bilaterally Abdomen: Soft, NT, ND, BS + Extremities: * 3+ bilateral pitting edema * Absent dorsalis pedis pulses * Multiple chronic ulcerations on right lower extremity * Left leg tenderness and heaviness persist Neuro: A&O 4, no focal deficit Skin: Cool BLE, no rash laboratory and microbiology Laboratory Tests 03/15/25 05:15 03/14/25 05:20 03/13/25 20:45 Test 03/13/25 20:45 Range/Units Serum Glucose 255 #H 74-106 mg/dL Microbiology Date/Time Source Procedure Growth Status 03/10/25 15:00 Nose MRSA Screen - Final Complete 03/09/25 12:00 Blood Blood Culture - Final NO GROWTH AFTER 5 DAYS OF INCUBATION. Complete Problem List/Assessment/Plan Problem List/Assessment/Plan Assessment NSTEMI Type 1, medically managed * Right great toe osteomyelitis Chronic infection requiring long-term IV antibiotics; PICC placed. * Acute kidney injury on chronic kidney disease, Stage 3b, due to VMN * Anemia of chronic disease * Protein-energy malnutrition * Functional decline Triple Vessel CAD Severe Hypokalemia Sepsis, resolved likely secondary to right foot osteomyelitis Chronic Osteomyelitis, right great toe, status post I&D Chronic ulcers with confirmed bone involvement Peripheral Arterial Disease with Chronic Critical Limb Ischemia Absent DP pulses, ulcers, BLE edema Chronic Diastolic Heart Failure with volume overload BNP elevated, BLE edema, reduced mobility Hypertension, Controlled Type 2 Diabetes Mellitus, without current DKA or HHS Hyperlipidemia History of left testicular carcinoma, s/p orchiectomy (1993) BPH Lactic acidosis (resolved) Left lower extremity discomfort, possibly neurovascular Plan System-plascencia Plan Cardiology Aggresive medical management for NSTEMI 1 and three vessel CAD due to poor funtional status of the patient from cardiology standpoint. Follow up outpatient with cardiology * Cardiology: Monitoring troponin, BNP, vitals *NSTEMI stable Continue ASA 81 mg PO QD + Clopidogrel 75 mg PO QD + Atorvastatin 40 mg PO QD * Continue Lasix 40 MG IV, Plavix and Coreg, Amlodipine Renal/Electrolyte * AD trending down, Cr maintain hydration, avoid nephrotoxins * Recheck BMP, Mg, Phos * Continue oral KCl 20 mEq BID until >4.0 * Daily I/Os, weights, and strict fluid balance * Continue Nephrology follow-up Infectious Disease / Wound * Continue Vancomycin + Cefepime * No systemic signs of infection * Blood cultures and MRSA screen are negative * Daily dressing changes with wound care nurse consult Peripheral Arterial Disease / Vascular * Left LE weak pulse monitor for ischemic changes * Consider vascular surgery consult if perfusion worsens * Maintain SCDs, elevate legs, promote mobility Nutrition * Continue Prostat 30 mL PO daily, MBI 1 tab PO QD * Diet: CCHO renal, high protein (60g/day) * Nutrition consult if not improving Social Disposition Rejected from [facility] for CABG Patient ambulates with assistance (bed to toilet) PT recommends discharge home with home PT Discharge to home with home health services with PT Durable Medical Equipment (DME) order placed for wheelchair at home Neuro/Psych * No new deficits * Monitor mental status post-cath, during diuresis * Encourage engagement in care decisions Prophylaxis * GI: Continue Pantoprazole 40 mg IV QD * Skin: turning protocol, wound care Goals of care, Code status- Full Code ; discussed with >15 minutes Plan discussed with Attending Physician , nursing staff, Total time spent on patient evaluation, chart review, assessment and plan, discussion discussion >35 minutes Plan discussed with: Patient My Orders My Orders Orders - FABRICIO CALVIN RESIDENT Procedure Category Date Status Time *Dr. [facility] CONS 03/15/25 Transmitted -[place] 09:47 Discharge DISCHARGE 03/15/25 Transmitted 14:31 * [employer] CONS 03/15/25 Transmitted Consult 14:34 Change Dressing Prn [place] 03/15/25 In Process 16:38 Sodium Chloride Lock PHA 03/15/25 In Process (Saline Lock Ns) 22:00 Do Not Use Picc For [facility] 03/15/25 In Process Blood Cult 16:38 May Draw Blood From [facility] 03/15/25 In Process Picc 16:38 Ok To Use Picc [facility] 03/15/25 In Process 16:38 Change Picc Dressing [place] 03/15/25 In Process Q7 Days 16:38 Dietary Evaluation Review Recommendations by RD: Protein Supplementation Comments: 1) Initiate Pro-Stat @ 30 mL qd 2) Initiate MVI @ 1 tb qd 3) Advance to 60g CCHO renal diet when medically feasible 4) Initiate Nepro bid when medically feasible 5) Follow-up with nephrology, neurology, and cardiology 6) Continue to monitor I&O, labs, and skin integrity Expected Outcomes/Goals: 1) labs to improve 2) diet to advance 3) wounds to improve 4) f/u in 3-5 days Date of Service: Mar 15, 2025 Billing Provider: SHWETA CONRAD MD Common Visit Codes: 30365-NYBFXSOCYC INP/OBS CARE(HIGH) FABRICIO CALVIN RESIDENT Mar 15, 2025 19:44 SHWETA CONRAD MD Mar 21, 2025 00:55
[2025-03-15] MEDS: SODIUM CHLOR 0.9% PF (SALINE LOCK) 10ML VIAL/SYR IV SCH (22:24)
[2025-03-16 05:00] VITALS: BP 113/54; PULSE 83; RESP 20; TEMP 98.3; O2SAT 96
[2025-03-16 08:30] VITALS: PULSE 78
[2025-03-16 09:00] VITALS: BP 119/51; PULSE 77; RESP 18; TEMP 98.4; O2SAT 92
[2025-03-16 13:30] VITALS: BP 131/62; PULSE 81; RESP 18; TEMP 98.4; O2SAT 93
--- NOTE | 2025-03-16 16:43 | DVHPN2 ---
Progress Note Date Seen: Mar 16, 2025 Resident Creating Document: PLACIDO LUGO RESIDENT Has the PT tested + for MRSA If YES, has PT been informed?: No Medical Necessity Reason Pt with a Central, PICC or Fol: Yes The following are medically ne: Hernandez Catheter Reason for hernandez catheter: Bladder Retention/Obstruc Subjective Review of Systems Patient is 74 years old male with past medical history of hypertension, diabetes mellitus 2, CKD, peripheral artery disease, hyperlipidemia, right foot osteomyelitis, chronic bilateral leg wound, history of testicular cancer diagnosed in 1993, status post left orchiectomy came with a complaint of presyncope. As per patient since he got discharged from [facility] on 03/04/25 he has been feeling dizzy and unsteady when walking. Patient also reported feeling weak and also heaviness of the left lower extremity for last couple of days since he got discharged from the hospital. Patient also reported having 1 episode of vomiting yesterday with food content, no blood. Because of the the dizziness and heaviness of the left leg patient called 911 and EMS arrived. Patient was recently discharged from [facility] with the diagnosis of right lower extremity cellulitis and osteomyelitis of right great toe, status post incision and drainage by Dr. Valdez. During hospital course patient was treated With the Zosyn and vancomycin and discharged with a oral ciprofloxacin, doxycycline and rifampin recommended by infectious disease doctor Dr. Colon. Initial lab workup revealed hypokalemia with potassium 2.5, serum creatinine 2.43, BUN 58, lactic acidosis with lactic acid 2.7, troponin I 531. UDS Negative. EKG revealed RBBB with ischemic changes in the chest leads-no previous EKG to compare. Nephrology consulted for clearance for PICC line placement 03/15-Patient seen and examined at the bedside. Reports feeling weak. Right great toe dressing noted. Creatinine 1.94, GFR 36 which appears baseline 03/16-patient seen and examined at the bedside. Creatinine trending down. Objective vital signs Vital Sign Date Time Temp Pulse Resp B/P (MAP) Pulse Ox O2 Delivery O2 Flow Rate FiO2 03/16/25 13:30 98.4 81 18 131/62 (85) 93 98.4 03/15/25 20:00 Room Air* 0 21 Total Intake and Output 03/15/25 03/15/25 03/16/25 15:00 23:00 07:00 Intake Total 1900 ml 1450 ml Output Total 1200 ml 1200 ml Balance 700 ml 250 ml medications Current Medications Medications Dose Ordered Sig/Bandar Route Start Time Stop Time Status Last Admin Dose Admin Sodium Chloride 10 ml Q8HR IV 03/10/25 06:00 03/16/25 12:09 10 ML Acetaminophen 650 mg Q6HP PRN PO 03/10/25 00:00 Nitroglycerin 0.4 mg Q5MINP PRN SL 03/10/25 00:00 Morphine Sulfate 2 mg Q30M PRN IV 03/10/25 00:00 Amlodipine Besylate 5 mg DAILY PO 03/10/25 10:00 03/16/25 08:47 5 MG Aspirin 81 mg DAILY PO 03/10/25 10:00 03/16/25 08:44 81 MG Carvedilol 12.5 mg BID PO 03/10/25 10:00 03/16/25 08:48 12.5 MG Acetaminophen/ Hydrocodone Bitart 1 tab BID PRN PO 03/10/25 01:15 03/14/25 04:03 1 TAB Calcium/Vitamin D 1 tab BID PO 03/10/25 10:00 03/16/25 08:44 1 TAB Atorvastatin Calcium 40 mg DAILY PO 03/10/25 10:00 03/16/25 08:43 40 MG Sodium Chloride 1,000 ml @ 100 mls/hr Q10H IV 03/10/25 09:45 03/15/25 20:13 100 MLS/HR Cefepime HCl 50 ml @ 12.5 mls/hr Q12HR IV 03/10/25 22:00 03/16/25 08:41 12.5 MLS/HR Vancomycin HCl 0 ml @ 0 mls/hr UD IV 03/10/25 11:00 Pregabalin 50 mg BID PO 03/10/25 22:00 03/16/25 08:43 50 MG Furosemide 40 mg DAILY IV 03/12/25 10:00 03/16/25 08:54 40 MG Clopidogrel Bisulfate 75 mg DAILY PO 03/14/25 10:00 03/16/25 08:43 75 MG Sodium Chloride 10 ml QSHIFT@10,22 IV 03/15/25 22:00 03/16/25 08:41 10 ML Examination Patient lying in bed, in no acute distress General: Well-built, afebrile, palor, mucosae are moist Cardiovascular: Regular S1 and S2. No murmurs, gallops or rubs. No JVD elevation. No pedal edema Respiratory: Normal B/L air entry on room air. Clear lung sounds on auscultation Abdomen: Soft, nontender, nondistended, normoactive bowel sounds, no rebound tenderness, no organomegaly, no masses Genitourinary: Deferred MSK/skin: Right toe and bilateral shins hip dressing, clean dry and intact. laboratory and microbiology Laboratory Tests 03/16/25 05:13 03/14/25 05:20 03/13/25 20:45 Test 03/13/25 20:45 Range/Units Serum Glucose 255 #H 74-106 mg/dL Microbiology Date/Time Source Procedure Growth Status 03/10/25 15:00 Nose MRSA Screen - Final Complete 03/09/25 12:00 Blood Blood Culture - Final NO GROWTH AFTER 5 DAYS OF INCUBATION. Complete Labs and/or images reviewed: Labs reviewed by me, Image(s) reviewed by me Problem List/Assessment/Plan Problem List/Assessment/Plan Acute kidney injury superimposed on CKD stage 3-now baseline Anemia likely normocytic secondary to chronic kidney disease Right foot osteomyelitis NSTEMI ? Type 1 CAD with triple-vessel disease Hypokalemia Lactic acidosis Hypertension Type 2 diabetes mellitus Plan: Given the creatinine trending down, GFR improving, We will sign off. Please reconsult us if necessary. PICC line placed for IV antibiotics for 5 weeks Outpatient Nephrology follow up recommended. Rest of management per primary team. Thank you for consulting us Plan discussed with patient, primary team in which all questions have been answered Case discussed with Dr. Beck Addendum Patient seen and examined, plan discussed with resident. Agree with above, we will follow closely Plan discussed with: Patient Dietary Evaluation Review Recommendations by RD: Protein Supplementation Comments: 1) Initiate Pro-Stat @ 30 mL qd 2) Initiate MVI @ 1 tb qd 3) Advance to 60g CCHO renal diet when medically feasible 4) Initiate Nepro bid when medically feasible 5) Follow-up with nephrology, neurology, and cardiology 6) Continue to monitor I&O, labs, and skin integrity Expected Outcomes/Goals: 1) labs to improve 2) diet to advance 3) wounds to improve 4) f/u in 3-5 days PLACIDO LUGO RESIDENT Mar 16, 2025 16:43 SHANTANU BECK MD Mar 16, 2025 19:02
[2025-03-16 16:54] VITALS: BP 132/47; PULSE 90; RESP 18; TEMP 100.3; O2SAT 94
--- NOTE | 2025-03-16 17:31 | DVHPNRES ---
Progress Note Date Seen: Mar 16, 2025 Resident Creating Document: FABRICIO CALVIN RESIDENT Has the PT tested + for MRSA If YES, has PT been informed?: No Medical Necessity Reason Pt with a Central, PICC or Fol: Yes The following are medically ne: Hernandez Catheter Reason for hernandez catheter: Bladder Retention/Obstruc Subjective Review of Systems Review of Systems History of Present Illness Patient is 74 years old male with past medical history of hypertension, diabetes mellitus 2, CKD, peripheral artery disease, hyperlipidemia, right foot osteomyelitis, chronic bilateral leg wound, history of testicular cancer diagnosed in 1993, status post left orchiectomy came with a complaint of presyncope. As per patient since he got discharged from [facility] on 03/04/25 he has been feeling dizzy and unsteady when walking. Patient also reported feeling weak and also heaviness of the left lower extremity for last couple of days since he got discharged from the hospital. Patient also reported having 1 episode of vomiting yesterday with food content, no blood. Because of the the dizziness and heaviness of the left leg patient called 911 and EMS arrived. Patient was recently discharged from [facility] with the diagnosis of right lower extremity cellulitis and osteomyelitis of right great toe, status post incision and drainage by Dr. Valdez. During hospital course patient was treated With the Zosyn and vancomycin and discharged with a oral ciprofloxacin, doxycycline and rifampin recommended by infectious disease doctor Dr. Colon. Initial lab workup revealed hypokalemia with potassium 2.5, serum creatinine 2.43, BUN 58, lactic acidosis with lactic acid 2.7, troponin I 531. UDS Negative. EKG revealed RBBB with ischemic changes in the chest leads-no previous EKG to compare. 03/10/2025 The patient was seen at bedside. He reports ongoing left leg heaviness and discomfort, particularly with ambulation or standing. Denies chest pain, shortness of breath, or palpitations. Continues to feel weak and mildly nauseated but is tolerating oral intake. He is aware of his recent elevated troponin levels and understands the working diagnosis of NSTEMI. He confirms compliance with medications and denies any bleeding, melena, hematuria, or confusion. 03/11/25 Patient was seen at bedside this morning. He reports improved alertness and energy. No chest pain or dyspnea. He continues to feel mild leg heaviness on the left side, now less severe. Denies palpitations, nausea, vomiting, melena, hematuria or headache. He is aware of undergoing left heart catheterization today. And left heart catheterization revealed severe three-vessel coronary artery disease and the plan is to transfer for CABG evaluation. His wounds are being treated appropriately with wound care and podiatry consult. 03/13/25 Patient was seen and examined at the bedside today. He remains stable and cooperative. Denies chest pain, dyspnea, nausea, or dizziness. Reports being tired from ongoing hospitalization but is understanding of the need for CABG and awaiting transfer. guest services manager update: Patient was rejected from [facility] for CABG. guest services manager are working actively to identify another tertiary center willing to accept him for urgent CABG evaluation. Wound care continues to be performed daily. Dressing changes noted on right great toe. No drainage, foul odor, or signs of systemic infection. Patient remains on heparin drip as part of the ACS protocol. 03/14/25 Patient seen and evaluated at bedside. This morning, the patient was able to lift both legs and stand with assistance. Shortly thereafter, physical therapist Ted evaluated the patient at bedside and noted that the patient was able to ambulate a short distance from bed to toilet with assistance, indicating improving functional mobility. The patient feels more confident ambulating with support. He denies any dizziness, lightheadedness, SOB, chest pain, or acute complaints. He is aware of his diagnosis of osteomyelitis, ongoing long-term IV antibiotic therapy, and recent PICC line placement. He is agreeable to discharge home with home health and home PT support. Nephrology team evaluated the patient today and gave clearance for PICC line placement given the need for prolonged antibiotic access and absence of contraindications. 03/16/2025 Patient was seen and examined at bedside this morning. He was alert, communicative, and cooperative. We had a goals of care discussion, during which the patient expressed understanding and agreement with the current plan for medical management of his conditions, and discharge home with home health services and physical therapy. The patient denies any new complaints. He reports no pain, swelling, or itching around the PICC line, which was flushing well during bedside check. He understands the need for continued IV antibiotics at home and agrees to all medications. Case discussed with RN. Transportation is being arranged, and the patients son will pick him up today to take him home safely. Past Medical History hypertension, diabetes mellitus, CKD, peripheral artery disease, hyperlipidemia, right foot osteomyelitis, chronic bilateral leg wound, history of testicular cancer diagnosed in 1993, status post left orchiectomy Past Surgical History Left orchiectomy due to testicular carcinoma, Tonsillectomy, right great toe incision and drainage due to osteomyelitis, cataract surgery Past Social History Patient lives at home, denies smoking/alcoholism/drug abuse Review of Systems Allergy- NKDA Patient was seen today at the bedside. Cardiovascular- deny acute chest pain or shortness of breath or cough or palpitation Respiratory denies cough or short of breath or wheezing Gastrointestinal- denies any rectal bleeding, Musculoskeletal-denies acute joint swelling or redness Neurological- denies acute dysarthria, dysphagia, change in vision Psychiatry- denies depression or SI or HI Skin- denies acute rash or purpura Objective vital signs Vital Sign Date Time Temp Pulse Resp B/P (MAP) Pulse Ox O2 Delivery O2 Flow Rate FiO2 03/16/25 16:54 100.3 90 18 132/47 (75) 94 100.3 03/15/25 20:00 Room Air* 0 21 Total Intake and Output 03/15/25 03/15/25 03/16/25 15:00 23:00 07:00 Intake Total 1900 ml 1450 ml Output Total 1200 ml 1200 ml Balance 700 ml 250 ml medications Current Medications Medications Dose Ordered Sig/Bandar Route Start Time Stop Time Status Last Admin Dose Admin Sodium Chloride 10 ml Q8HR IV 03/10/25 06:00 03/16/25 12:09 10 ML Acetaminophen 650 mg Q6HP PRN PO 03/10/25 00:00 Nitroglycerin 0.4 mg Q5MINP PRN SL 03/10/25 00:00 Morphine Sulfate 2 mg Q30M PRN IV 03/10/25 00:00 Amlodipine Besylate 5 mg DAILY PO 03/10/25 10:00 03/16/25 08:47 5 MG Aspirin 81 mg DAILY PO 03/10/25 10:00 03/16/25 08:44 81 MG Carvedilol 12.5 mg BID PO 03/10/25 10:00 03/16/25 08:48 12.5 MG Acetaminophen/ Hydrocodone Bitart 1 tab BID PRN PO 03/10/25 01:15 03/14/25 04:03 1 TAB Calcium/Vitamin D 1 tab BID PO 03/10/25 10:00 03/16/25 08:44 1 TAB Atorvastatin Calcium 40 mg DAILY PO 03/10/25 10:00 03/16/25 08:43 40 MG Sodium Chloride 1,000 ml @ 100 mls/hr Q10H IV 03/10/25 09:45 03/15/25 20:13 100 MLS/HR Cefepime HCl 50 ml @ 12.5 mls/hr Q12HR IV 03/10/25 22:00 03/16/25 08:41 12.5 MLS/HR Vancomycin HCl 0 ml @ 0 mls/hr UD IV 03/10/25 11:00 Pregabalin 50 mg BID PO 03/10/25 22:00 03/16/25 08:43 50 MG Furosemide 40 mg DAILY IV 03/12/25 10:00 03/16/25 08:54 40 MG Clopidogrel Bisulfate 75 mg DAILY PO 03/14/25 10:00 03/16/25 08:43 75 MG Sodium Chloride 10 ml QSHIFT@10,22 IV 03/15/25 22:00 03/16/25 08:41 10 ML Examination General: Awake, alert, NAD HEENT: PERRLA, no nasal discharge CV: RRR, no murmur Resp: Clear lungs bilaterally Abdomen: Soft, NT, ND, BS + Extremities: * 3+ bilateral pitting edema * Absent dorsalis pedis pulses * Multiple chronic ulcerations on right lower extremity * Left leg tenderness and heaviness persist Neuro: A&O 4, no focal deficit Skin: Cool BLE, no rash laboratory and microbiology Laboratory Tests 03/16/25 05:13 03/14/25 05:20 03/13/25 20:45 Test 03/13/25 20:45 Range/Units Serum Glucose 255 #H 74-106 mg/dL Microbiology Date/Time Source Procedure Growth Status 03/10/25 15:00 Nose MRSA Screen - Final Complete 03/09/25 12:00 Blood Blood Culture - Final NO GROWTH AFTER 5 DAYS OF INCUBATION. Complete Problem List/Assessment/Plan Problem List/Assessment/Plan Assessment NSTEMI Type 1, medically managed * Right great toe osteomyelitis Chronic infection requiring long-term IV antibiotics; PICC placed. * Acute kidney injury on chronic kidney disease, Stage 3b, due to VMN * Anemia of chronic disease * Protein-energy malnutrition * Functional decline Triple Vessel CAD Severe Hypokalemia Sepsis, resolved likely secondary to right foot osteomyelitis Chronic Osteomyelitis, right great toe, status post I&D Chronic ulcers with confirmed bone involvement Peripheral Arterial Disease with Chronic Critical Limb Ischemia Absent DP pulses, ulcers, BLE edema Chronic Diastolic Heart Failure with volume overload BNP elevated, BLE edema, reduced mobility Hypertension, Controlled Type 2 Diabetes Mellitus, without current DKA or HHS Hyperlipidemia History of left testicular carcinoma, s/p orchiectomy (1993) BPH Lactic acidosis (resolved) Left lower extremity discomfort, possibly neurovascular Plan System-plascencia Plan Cardiology Aggresive medical management for NSTEMI 1 and three vessel CAD due to poor funtional status of the patient from cardiology standpoint. Follow up outpatient with cardiology * Cardiology: Monitoring troponin, BNP, vitals *NSTEMI stable Continue ASA 81 mg PO QD + Clopidogrel 75 mg PO QD + Atorvastatin 40 mg PO QD * Continue Lasix 40 MG IV, Plavix and Coreg, Amlodipine Renal/Electrolyte * AD trending down, Cr maintain hydration, avoid nephrotoxins * Recheck BMP, Mg, Phos * Continue oral KCl 20 mEq BID until >4.0 * Daily I/Os, weights, and strict fluid balance * Continue Nephrology follow-up Infectious Disease / Wound * Continue Vancomycin + Cefepime * No systemic signs of infection * Blood cultures and MRSA screen are negative * Daily dressing changes with wound care nurse consult Peripheral Arterial Disease / Vascular * Left LE weak pulse monitor for ischemic changes * Consider vascular surgery consult if perfusion worsens * Maintain SCDs, elevate legs, promote mobility Nutrition * Continue Prostat 30 mL PO daily, MBI 1 tab PO QD * Diet: CCHO renal, high protein (60g/day) * Nutrition consult if not improving Social Disposition Rejected from [facility] for CABG Patient ambulates with assistance (bed to toilet) PT recommends discharge home with home PT Discharge to home with home health services with PT Durable Medical Equipment (DME) order placed for wheelchair at home Neuro/Psych * No new deficits * Monitor mental status post-cath, during diuresis * Encourage engagement in care decisions Prophylaxis * GI: Continue Pantoprazole 40 mg IV QD * Skin: turning protocol, wound care Goals of care, Code status- Full Code ; discussed with >15 minutes Plan discussed with Attending Physician, nursing staff, Total time spent on patient evaluation, chart review, assessment and plan, discussion discussion >35 minutes Plan discussed with: Patient My Orders My Orders Orders - FABRICIO CALVIN Procedure Category Date Status Time * Pipeline Construction Inspector CONS 03/15/25 Transmitted Consult Dietary Evaluation Review Recommendations by RD: Protein Supplementation Comments: 1) Initiate Pro-Stat @ 30 mL qd 2) Initiate MVI @ 1 tb qd 3) Advance to 60g CCHO renal diet when medically feasible 4) Initiate Nepro bid when medically feasible 5) Follow-up with nephrology, neurology, and cardiology 6) Continue to monitor I&O, labs, and skin integrity Expected Outcomes/Goals: 1) labs to improve 2) diet to advance 3) wounds to improve 4) f/u in 3-5 days FABRICIO CALVIN RESIDENT Mar 16, 2025 17:31
[2025-03-16] MEDS: VANCOMYCIN 500mg/100mL 100 ML IV ONE (18:16)
== END 2025-03-16 20:40 | disposition home health service (06) | DRG 871 ==
LOC: ER 11:29 → EDBD 11:29 → OVERFLOW 23:50 → TELE-EAST 03-10 12:18
PROVIDERS: ADMIT Student in an Organized Health Care Education/Training Program; ATTEND Student in an Organized Health Care Education/Training Program
PROC: 4A023N7 Measurement of Cardiac Sampling and Pressure, Left Heart, Percutaneous Approach (ICD-10-PCS; principal; 2025-03-11)
PROC: B211YZZ Fluoroscopy of Multiple Coronary Arteries using Other Contrast (ICD-10-PCS; 2025-03-11)
PROC: 02HV33Z Insertion of Infusion Device into Superior Vena Cava, Percutaneous Approach (ICD-10-PCS; 2025-03-15)
PROC: B548ZZA Ultrasonography of Superior Vena Cava, Guidance (ICD-10-PCS; 2025-03-15)
DX: A41.9 Sepsis, unspecified organism (principal); I21.4 Non-ST elevation (NSTEMI) myocardial infarction; N17.0 Acute kidney failure with tubular necrosis; I50.33 Acute on chronic diastolic (congestive) heart failure; E87.20 Acidosis, unspecified; Q25.0 Patent ductus arteriosus; M86.8X8 Other osteomyelitis, other site; E46 Unspecified protein-calorie malnutrition; E87.6 Hypokalemia; E11.22 Type 2 diabetes mellitus with diabetic chronic kidney disease; G90.89 Other disorders of autonomic nervous system; E78.5 Hyperlipidemia, unspecified; E11.51 Type 2 diabetes mellitus with diabetic peripheral angiopathy without gangrene; E66.9 Obesity, unspecified; I45.10 Unspecified right bundle-branch block; D63.1 Anemia in chronic kidney disease; N40.0 Benign prostatic hyperplasia without lower urinary tract symptoms; I25.10 Atherosclerotic heart disease of native coronary artery without angina pectoris; I12.9 Hypertensive chronic kidney disease with stage 1 through stage 4 chronic kidney disease, or unspecified chronic kidney disease; N18.30 Chronic kidney disease, stage 3 unspecified; Z79.2 Long term (current) use of antibiotics; Z79.82 Long term (current) use of aspirin; Z79.899 Other long term (current) drug therapy; Z85.47 Personal history of malignant neoplasm of testis; Z82.3 Family history of stroke; Z79.84 Long term (current) use of oral hypoglycemic drugs; Z68.22 Body mass index [BMI] 22.0-22.9, adult; E87.70 Fluid overload, unspecified
CPT/HCPCS: 36415; 36569; 71045; 76937; 80048; 80053; 80076; 80202; 80307; 81001; 82306; 82565; 82607; 82746; 83605; 83735; 83880; 84132; 84443; 84484; 85025; 85610; 85730; 86850; 86900; 86901; 87040; 87081; 87205; 93005; 93306; 93458; 93970; 96365; 96366; 97110; 97116; 97163; 97530; 99152; 99291; G0378; J0692; J2250; J3480; Q9967

== ENCOUNTER 2025-04-04 22:26 | Inpatient (IN) | payer OTHER, MEDICAID ==
[~2025-04-04] VITALS: Ht 172.7 cm; Wt 65.3 kg
[~2025-04-04 22:26] MED LIST changes: +GLIP5TAB21 PO; +HYDR25TA4 PO
--- NOTE | 2025-04-04 23:02 | ED.PDOC ---
History of Present Illness HPI Comments 74 y/o M is BIBA from private residence for c/c nausea and vomiting. Per EMS report, patient just arrived home after, recently, being discharged, earlier, today, from hospital admission for a recent foot infection. Patient reports starting oral antibiotic course after being on IV antibiotic treatment regiment up until now. No further lifestyle changes or pertinent history endorsed. Denies any abdominal pain, bloody or bilious vomitus, diarrhea, constipation, fever, chills, or further associated symptoms. Significant history of AD, CAD - triple vessel disease, CKF III, DM type II, HLD, HTN, Osteomyelitis - right foot, chronic bilateral leg wound, and Testicular cancer status post left orchiectomy Chief Complaint: Nausea/Vomiting Time Seen by MD: 22:40 Primary Care Provider: LEON Reviewed Notes: Nurses Notes, Medications, Allergies Allergies: Coded Allergies: NO KNOWN ALLERGIES (Unverified , 06/12/21) Home Meds Active Scripts Metronidazole (Flagyl) 500 Mg Tab, 500 MG PO TID for 42 Days, #126 TAB Prov:MARITZA FARRAR MD 03/04/25 Hydrocodone-Acetaminophen (Hydrocodone Bitartrate/AC 5-325 mg) 1 Tab Tab, 1 TAB PO BID PRN, #40 TAB Prov:AADRSH WILLIS MD 03/04/25 Rifampin (Rifampin) 300 Mg Cap, 300 MG PO BID, #90 CAP Prov:ADARSH WILLIS MD 03/04/25 Ciprofloxacin Hcl (Cipro) 500 Mg Tab, 1 TAB PO BID, #90 TAB Prov:ADARSH WILLIS MD 03/04/25 Doxycycline (Monohydrate) (Doxycycline) 100 Mg Cap, 100 MG PO BIDAC, #90 CAP Prov:ADARSH WILLIS MD 03/04/25 Reported Medications Tamsulosin Hcl (Tamsulosin Hcl) 0.4 Mg Cap, 0.4 MG PO QPM for 30 Days, MG 02/24/25 Amlodipine Besylate (Amlodipine Besylate) 5 Mg Tab, 1 TAB PO DAILY 02/24/25 Furosemide (Furosemide) 40 Mg Tab, 1 TAB PO DAILY 02/24/25 Aspirin (Aspirin Adult Low Dose) 81 Mg Tab, 1 TAB PO DAILY 02/24/25 Glipizide (Glipizide Er) 2.5 Mg Tab, TAB PO 02/24/25 Carvedilol (Carvedilol) 12.5 Mg Tab, TAB PO 02/24/25 Calcium Carbonate-Cholecalcife (Calcium 500-10 mg-Mcg) 1 Chw Chw, 1 TAB PO BID 02/24/25 Atorvastatin Calcium (ATORVASTATIN CALCIUM) 10 Mg Tab, 10 MG PO DAILY, TAB 06/13/21 Glipizide (Glipizide) 10 Mg Tab, 10 MG PO, TAB 06/13/21 Metformin HCl (Metformin Hydrochloride) 500 Mg/5 Ml Gwnedolyn, 500 MG PO, ML 06/13/21 Past Medical History PAST MEDICAL HISTORY: CAD (triple vessel disease), Cancer (Testicular cancer - diagnosed in 1993 - status post left orchiectomy), CKF (stage III), DM (type II), High Lipids, HTN, PAD Past Medical History (Other): AD Osteomyelitis - right foot chronic bilateral leg wound Surgical History: Tonsillectomy Surgical History (Other): status post left orchiectomy Family History Family History: Reviewed,noncontributory to illness Social History Smoker: Non-Smoker Alcohol: Rarely Drugs: Denies Drug Use Lives In: Home All Other Systems: Reviewed and Negative (Comprehensive systems review obtained and negative except for what is stated in the HPI.) Physical Exam General Appearance: No Apparent Distress, Thin, Other (elderly appearing) HEENT: Normal ENT Inspection, Pharynx Normal, TMs Normal Neck: Full Range of Motion, Non-Tender, Normal, Normal Inspection Respiratory: Chest Non-Tender, Lungs Clear, No Accessory Muscle Use, No Respiratory Distress, Normal Breath Sounds Cardiovascular: No Edema, No JVD, No Murmur, No Gallop, Normal Peripheral Pulses, Regular Rate/Rhythm Breast Exam: Deferred Gastrointestinal: No Organomegaly, Non Tender, No Pulsatile Mass, Normal Bowel Sounds, Soft Genitalia: Deferred Pelvic: Deferred Rectal: Deferred Extremities: No calf tenderness, Normal capillary refill, Normal inspection, Normal range of motion, Non-tender, No pedal edema Musculoskeletal : Apperance: Normal Neurologic: Alert, practice architect II-XII nml as Tested, No Motor Deficits, Normal Affect, Normal Mood, No Sensory Deficits Cerebellar Function: Normal Reflexes: Normal Skin: Dry, Normal Color, Warm Lymphatic: No Adenopathy Was a procedure done? Was a procedure done?: No Differential Dx Considerations may include: viral syndrome, sepsis, inappropriate medication, adverse response to oral antibiotics, dehydration, malnutrition, electrolyte imbalance, gastritis, among others X-Ray, Labs, Meds, VS Vital Signs Date Time Temp Pulse Resp B/P (MAP) Pulse Ox O2 Delivery O2 Flow Rate FiO2 04/05/25 00:44 98.1 91 13 131/56 (81) 96 98.1 04/04/25 23:18 84 18 97 Room Air 04/04/25 22:39 97.0 84 18 151/76 (101) 97 97.0 Lab Test 04/04/25 22:56 Range/Units White Blood Count 10.0 4.4-10.8 10^3/uL Red Blood Count 2.95 L 4.5-5.90 10^6/uL Hemoglobin 9.6 L 13.5-17.5 g/dL Hematocrit 28.3 L 41.0-53.0 % Mean Corpuscular Volume 96.0 80.0-100.0 fL Mean Corpuscular Hemoglobin 32.6 H 28.0-32.0 pg Mean Corpuscular Hemoglobin Concent 34.0 32.0-36.0 g/dL Red Cell Distribution Width 17.0 H 11.8-14.3 % Platelet Count 394 140-450 10^3/uL Mean Platelet Volume 7.3 6.9-10.8 fL Neutrophils (%) (Auto) 84.0 H 37.0-80.0 % Lymphocytes (%) (Auto) 8.2 L 10.0-50.0 % Monocytes (%) (Auto) 6.7 0.0-12.0 % Eosinophils (%) (Auto) 0.5 0.0-7.0 % Basophils (%) (Auto) 0.6 0.0-2.0 % Neutrophils # (Auto) 8.4 1.6-8.6 10 ^3/uL Lymphocytes # (Auto) 0.8 0.4-5.4 10 ^3/uL Monocytes # (Auto) 0.7 0-1.3 10 ^3/uL Eosinophils # (Auto) 0.1 0-0.8 10 ^3/uL Basophils # (Auto) 0.1 0-0.2 10 ^3/uL Nucleated Red Blood Cells 0.1 % Sodium Level 138 136-145 mmol/L Potassium Level 4.1 3.5-5.1 mmol/L Chloride Level 100 98-107 mmol/L Carbon Dioxide Level 25 20-31 mmol/L Anion Gap 13 5-15 Blood Urea Nitrogen 79 H 9-23 mg/dL Creatinine 3.96 H 0.700-1.30 mg/dL Glomerular Filtration Rate Calc 15 >90 mL/min BUN/Creatinine Ratio 19.9 10.0-20.0 Serum Glucose 253 H 74-106 mg/dL Calcium Level 9.4 8.7-10.4 mg/dL Total Bilirubin 0.7 0.2-1.0 mg/dL Aspartate Amino Transferase (AST) 13 13-40 U/L Alanine Aminotransferase (ALT) < 9 7-40 U/L Alkaline Phosphatase 113 46-116 U/L Total Protein 7.6 5.7-8.2 g/dL Albumin 3.9 3.2-4.8 g/dL Lipase 23 12-53 U/L X-Ray, Labs, Meds, VS Comment Patient will be admitted for cyclical vomiting Concerned that patient can not take p.o. medications There may be benefit from social worker psychiatric/[facility] facility Vital signs reviewed, patient is hemodynamically stable Nausea has been controlled Time of 1ST Reevaluation: 23:10 Reevaluation 1ST: Unchanged Patient Education/Counseling: Diagnosis, Treatment, Other (need for admission ) Family Education/Counseling: No Family Present Additional Information Previous visits reviewed: June 12, 2021, February 23, 2025, and March 09, 2025 encounters for syncope, hypokalemia, and sepsis The following tests were ordered, and results were reviewed by me: Lipase, UA, CMP, CBC, CT abdomen/pelvis w/o contrast Additional Information was gathered from interviewing the following independent historians: EMS I reviewed and agreed with the following test results read by other providers: CT abdomen/pelvis w/o contrast I discussed treatment and results with medical personnel and: patient SEPSIS Sepsis Screen Physician Orders Ct Ab Pel Wo Con-No Oral Or Iv (04/04/25 22:43) Urinalysis (04/04/25 22:43) Gallbladder (04/05/25 01:29) Vital Signs Date Time Temp Pulse Resp B/P (MAP) Pulse Ox O2 Delivery O2 Flow Rate FiO2 04/05/25 00:44 98.1 91 13 131/56 (81) 96 98.1 04/04/25 23:18 84 18 97 Room Air 04/04/25 22:39 97.0 84 18 151/76 (101) 97 97.0 Laboratory Tests Test 04/04/25 22:56 White Blood Count 10.0 10^3/uL (4.4-10.8) Departure 1 Departure Time of Disposition: 01:31 Impression: Primary Impression: Generalized weakness Additional Impressions: Gravely disabled Cyclical vomiting Disposition: ADMITTED INPATIENT Admit to: Tele Condition: Stable Discharged With: Self Critical Care Note Critical Care Time?: No Stability Stability form required: No Heart Score Heart Score: Heart Score Response (Comments) Value History N/A 0 EKG N/A 0 Age N/A 0 Risk Factors N/A 0 Troponin N/A 0 Total 0 I personally scribed for SABINA CHRISTIANSON ([email or web address]) on 04/04/25 at 23:02. Electronically submitted by Edwin Vera ([email or web address]). I personally scribed for SABINA CHRISTIANSON ([email or web address]) on 04/04/25 at 23:32. Electronically submitted by Edwin Vera [email or web address]). SABINA CHRISTIANSON Apr 04, 2025 23:02
[2025-04-04 23:14] LABS: Hematocrit 28.3 % (41.0-53.0); Hemoglobin 9.6 g/dL (13.5-17.5); Mean Corpuscular Hemoglobin 32.6 pg (28.0-32.0); Mean Corpuscular Volume 96.0 fL (80.0-100.0); Nucleated Red Blood Cells % 0.1 %
[2025-04-04 23:27] LABS: Alanine Aminotransferase < 9 U/L (7-40); Albumin 3.9 g/dL (3.2-4.8); Alkaline Phosphatase 113 U/L (46-116); Anion Gap 13 (5-15); BUN/Creatinine Ratio 19.9 (10.0-20.0); Bilirubin, Total 0.7 mg/dL (0.2-1.0); Blood Urea Nitrogen 79 mg/dL (9-23); Calcium 9.4 mg/dL (8.7-10.4); Carbon Dioxide 25 mmol/L (20-31); Chloride 100 mmol/L (98-107); Glucose 253 mg/dL (74-106); Lipase 23 U/L (12-53); Potassium 4.1 mmol/L (3.5-5.1); Sodium 138 mmol/L (136-145); Total Protein 7.6 g/dL (5.7-8.2)
--- NOTE | 2025-04-05 00:08 | DVH ---
Exam: CT CT AB PEL WO CON-NO ORAL OR IV History: abd pain Comparison Study: None TECHNIQUE: Multidetector CT of the abdomen and pelvis was performed from lung bases to pubic symphysi s. Imaging was performed without IV contrast. Axial, coronal, and sagittal multiplanar reformats were obtained from the axial data set by the technologist. RADIATION DOSE: CTDI vol 10.34 mGy. DLP 532.26 mGy.cm Findings: Limited evaluation of the solid organs in the absence of IV contrast. Liver: Unremarkable. Spleen: Unremarkable. Pancreas: Unremarkable. Gallbladder: Cholelithiasis. There are stones within the common bile duct without biliary ductal dila tation. Adrenals: Unremarkable Kidneys: Unremarkable. Pelvic Viscera: Unremarkable. Vasculature: Mild atherosclerotic aortoiliac calcifications. Retroperitoneum: Unremarkable. Bowel: There is distention of the rectum with large stool burden. No bowel obstruction. Small hiatal hernia. Fluid-filled distal esophagus. Musculoskeletal: Unremarkable. Soft tissues: Unremarkable Lungs: The lung bases are clear. Impression: 1. Cholelithiasis and choledocholithiasis without CT evidence for acute cholecystitis. 2. Incidental findings as detailed.
--- NOTE | 2025-04-05 02:14 | DVH ---
INDICATION: abd pain TECHNIQUE: Multiple real-time sonographic images were obtained of the right upper quadrant. COMPARISON: None FINDINGS: The liver demonstrates normal homogeneous echotexture without focal mass lesions. The liver measures 14.2 cm. Normal hepatopetal portal flow identified. No evidence of pleural effusion or abd ominal ascites. There is no intrahepatic or extrahepatic ductal dilatation. The common duct measures 0.6 cm. Gallstones are present within the gallbladder. The gallbladder wall measures 0.3 cm and is within nor mal limits. Negative sonographic cole's sign. The right kidney measures 9.1 cm. The right kidney is normal in contour, size, and shape. The echogen icity is normal. There is no hydronephrosis. The pancreas is not well visualized due to overlying bowel gas. IMPRESSION: 1. Uncomplicated cholelithiasis.
[2025-04-05 03:02] LABS: Urine Budding Yeast LOADED /hpf (None Seen); Urine Protein, UAD 1+ (Negative)
[2025-04-05] MEDS ORDERED: DEXTROSE (50%) 50ML SYRG IV PRN (05:00)
[2025-04-05] MEDS ORDERED: HYDROcodone-ACET 5/325MG TAB PO PRN (05:00)
[2025-04-05] MEDS ORDERED: ONDANSETRON HCL 4 MG/2 ML VIAL IV PRN (05:00)
[2025-04-05] MEDS ORDERED: ACETAMINOPHEN 325 MG TAB PO PRN (05:00)
--- NOTE | 2025-04-05 05:01 | DVHHP2 ---
History of Present Illness Reason for Visit: Generalized weakness History of Present Illness 74-year-old male presents for evaluation of generalized weakness. Patient reports recently being discharged after being treated for a foot infection. He reports having multiple episodes of nausea with vomiting and generalized weakness. Denies abdominal pain. No fever or chills. No cardiac or respiratory symptoms Past Medical History Chronic kidney disease, cancer, CAD, diabetes mellitus, hypertension, dyslipidemia Past Surgical History Tonsillectomy, orchiectomy Family History Noncontributory Smoke: No ALCOHOL: none Drugs: None Review of Systems Review of Systems Review of systems are currently negative otherwise addressed in HPI. Allergies: Coded Allergies: NO KNOWN ALLERGIES (Unverified , 06/12/21) Medications Current Medications Medications Dose Ordered Sig/Bandar Route Start Time Stop Time Status Last Admin Dose Admin Ceftriaxone Sodium 50 ml @ 100 mls/hr DAILY@09 IV 04/05/25 09:00 Carvedilol 12.5 mg Q12HR PO 04/05/25 10:00 UNV Aspirin 81 mg DAILY PO 04/05/25 10:00 UNV Atorvastatin Calcium 10 mg HS PO 04/05/25 22:00 UNV Diagnostic Test (Pha) 1 strip Q6HR 04/05/25 06:00 UNV Insulin Human Regular Q6HR SC 04/05/25 06:00 UNV Dextrose 50 ml UD PRN IV 04/05/25 05:00 UNV Acetaminophen/ Hydrocodone Bitart 1 tab Q4HP PRN PO 04/05/25 05:00 UNV Ondansetron HCl 4 mg Q4HP PRN IV 04/05/25 05:00 UNV Acetaminophen 650 mg Q6HP PRN PO 04/05/25 05:00 UNV Exam Vital Signs Vital Signs Date Time Temp Pulse Resp B/P (MAP) Pulse Ox O2 Delivery O2 Flow Rate FiO2 04/05/25 04:43 97.9 82 13 113/53 (73) 98 97.9 04/04/25 23:18 Room Air Exam Gen: 74-year-old male in mild distress Skin: Warm, dry, normal color and texture, no rash. HEENT: Normocephalic atraumatic, mucous membranes moist and pink. Neck: Cervical and supraclavicular nodes normal without enlargement, trachea is midline, thyroid gland is normal without masses. Pulmonary: Clear to auscultation and percussion bilaterally. Cardiac: Regular rate and rhythm. No murmur Abdomen: Soft, nontender, nondistended, bowel sounds present all 4 quadrants, no guarding, no rigidity, no organomegaly. Extremities: No cyanosis, clubbing, no edema Neuro: Cranial nerves II through XII grossly intact, normal affect and speech, no focal motor deficits. Labs/Xrays ORDERING PHYSICIAN: SABINA CHRISTIANSON PROCEDURE(s): GBUS - GALLBLADDER REASON: abd pain ORDER NUMBER(s): [id number], ACCESSION NUMBER(s): [id number] INDICATION: abd pain TECHNIQUE: Multiple real-time sonographic images were obtained of the right upper quadrant. COMPARISON: None FINDINGS: The liver demonstrates normal homogeneous echotexture without focal mass lesions. The liver measures 14.2 cm. Normal hepatopetal portal flow identified. No evidence of pleural effusion or abdominal ascites. There is no intrahepatic or extrahepatic ductal dilatation. The common duct measures 0.6 cm. Gallstones are present within the gallbladder. The gallbladder wall measures 0.3 cm and is within normal limits. Negative sonographic cole's sign. The right kidney measures 9.1 cm. The right kidney is normal in contour, size, and shape. The echogenicity is normal. There is no hydronephrosis. The pancreas is not well visualized due to overlying bowel gas. IMPRESSION: 1. Uncomplicated cholelithiasis. RING PHYSICIAN: SABINA CHRISTIANSON PROCEDURE(s): ABPL - CT AB PEL WO CON-NO ORAL OR IV REASON: abd pain ORDER NUMBER(s): [id number], ACCESSION NUMBER(s): [id number] Exam: CT CT AB PEL WO CON-NO ORAL OR IV History: abd pain Comparison Study: None TECHNIQUE: Multidetector CT of the abdomen and pelvis was performed from lung bases to pubic symphysis. Imaging was performed without IV contrast. Axial, co gee, and sagittal multiplanar reformats were obtained from the axial data set by the technologist. RADIATION DOSE: CTDI vol 10.34 mGy. DLP 532.26 mGy.cm Findings: Limited evaluation of the solid organs in the absence of IV contrast. Liver: Unremarkable. Spleen: Unremarkable. Pancreas: Unremarkable. Gallbladder: Cholelithiasis. There are stones within the common bile duct without biliary ductal dilatation. Adrenals: Unremarkable Kidneys: Unremarkable. Pelvic Viscera: Unremarkable. Vasculature: Mild atherosclerotic aortoiliac calcifications. Retroperitoneum: Unremarkable. Bowel: There is distention of the rectum with large stool burden. No bowel obstruction. Small hiatal hernia. Fluid-filled distal esophagus. Musculoskeletal: Unremarkable. Soft tissues: Unremarkable Lungs: The lung bases are clear. Impression: 1. Cholelithiasis and choledocholithiasis without CT evidence for acute cholecystitis. 2. Incidental findings as detailed. ATED BY: LARRY MANNING MD Labs Test 04/04/25 23:40 04/04/25 22:56 Range/Units Urine Color Yellow Yellow Urine Clarity Turbid H Clear Urine pH 5.5 5.0-9.0 Urine Specific [place] 1.013 1.001-1.035 Urine Protein 1+ H Negative Urine Ketones Negative Negative Urine Blood Negative Negative /uL Urine Nitrite Negative Negative Urine Bilirubin Negative Negative Urine Urobilinogen Normal Negative mg/dL Urine Leukocyte Esterase 3+ Negative /uL Urine RBC 4 0 - 3 /hpf Urine Microscopic WBC 171 H 0-3 /HPF Urine Squamous Epithelial Cells Few <5 /hpf Urine Bacteria None seen None Seen /hpf Urine Yeast (Budding) Loaded None Seen /hpf Urine Glucose Normal Normal mg/dL White Blood Count 10.0 4.4-10.8 10^3/uL Red Blood Count 2.95 L 4.5-5.90 10^6/uL Hemoglobin 9.6 L 13.5-17.5 g/dL Hematocrit 28.3 L 41.0-53.0 % Mean Corpuscular Volume 96.0 80.0-100.0 fL Mean Corpuscular Hemoglobin 32.6 H 28.0-32.0 pg Mean Corpuscular Hemoglobin Concent 34.0 32.0-36.0 g/dL Red Cell Distribution Width 17.0 H 11.8-14.3 % Platelet Count 394 140-450 10^3/uL Mean Platelet Volume 7.3 6.9-10.8 fL Neutrophils (%) (Auto) 84.0 H 37.0-80.0 % Lymphocytes (%) (Auto) 8.2 L 10.0-50.0 % Monocytes (%) (Auto) 6.7 0.0-12.0 % Eosinophils (%) (Auto) 0.5 0.0-7.0 % Basophils (%) (Auto) 0.6 0.0-2.0 % Neutrophils # (Auto) 8.4 1.6-8.6 10 ^3/uL Lymphocytes # (Auto) 0.8 0.4-5.4 10 ^3/uL Monocytes # (Auto) 0.7 0-1.3 10 ^3/uL Eosinophils # (Auto) 0.1 0-0.8 10 ^3/uL Basophils # (Auto) 0.1 0-0.2 10 ^3/uL Nucleated Red Blood Cells 0.1 % Sodium Level 138 136-145 mmol/L Potassium Level 4.1 3.5-5.1 mmol/L Chloride Level 100 98-107 mmol/L Carbon Dioxide Level 25 20-31 mmol/L Anion Gap 13 5-15 Blood Urea Nitrogen 79 H 9-23 mg/dL Creatinine 3.96 H 0.700-1.30 mg/dL Glomerular Filtration Rate Calc 15 >90 mL/min BUN/Creatinine Ratio 19.9 10.0-20.0 Serum Glucose 253 H 74-106 mg/dL Calcium Level 9.4 8.7-10.4 mg/dL Total Bilirubin 0.7 0.2-1.0 mg/dL Aspartate Amino Transferase (AST) 13 13-40 U/L Alanine Aminotransferase (ALT) < 9 7-40 U/L Alkaline Phosphatase 113 46-116 U/L Total Protein 7.6 5.7-8.2 g/dL Albumin 3.9 3.2-4.8 g/dL Lipase 23 12-53 U/L SEPSIS Sepsis Screen Date sepsis recognized/suspect: Apr 04, 2025 Time Sepsis recognized/suspect: 2250 Recent Procedure: No On Antibiotic Therapy: No Respiratory Rate >20: No Heart Rate >90: No Temp<36 C (96.8 F) or >38.3 C: No SBP <90 or MAP <65 mmHG: No New Acute Mental Status Change: No Is the patient on CPAP, BIPAP,: No Physician Orders Ct Ab Pel Wo Con-No Oral Or Iv (04/04/25 22:43) Gallbladder (7/29/25 01:29) Ceftriaxone 1gm/50ml D5w (Rocephin) (04/05/25 09:00) *[facility] (04/05/25 04:47) Carvedilol Tablet (Coreg Tablet) (04/05/25 10:00) Aspirin Tablet (04/05/25 10:00) Atorvastatin (Lipitor) (04/05/25 22:00) Consistent Carb(Ccho)Diabetes (04/05/25 Breakfast) Glucose Blood (Accu-Chek Comfort Curve T (04/05/25 06:00) Insulin R (Human) (Insulin R) (04/05/25 06:00) Dextrose 50% Syringe (04/05/25 05:00) Admit (04/05/25 04:47) Hydrocodone-Acet 5/325mg Tab ([place] 5/32 (04/05/25 05:00) Ondansetron Hcl (Zofran) (04/05/25 05:00) Complete Blood Count (04/06/25 04:00) Condition: Stable (04/05/25 04:47) Acetaminophen Tablet (Tylenol Tablet) (04/05/25 05:00) Bedrest With Bathroom Privileg (04/05/25 04:47) Basic Metabolic Panel (04/06/25 04:00) Vital Signs Date Time Temp Pulse Resp B/P (MAP) Pulse Ox O2 Delivery O2 Flow Rate FiO2 04/05/25 04:43 97.9 82 13 113/53 (73) 98 97.9 04/05/25 02:39 98.6 83 12 117/54 (75) 96 98.6 04/05/25 00:44 98.1 91 13 131/56 (81) 96 98.1 04/04/25 23:18 84 18 97 Room Air 04/04/25 22:39 97.0 84 18 151/76 (101) 97 97.0 Laboratory Tests Test 04/04/25 22:56 White Blood Count 10.0 10^3/uL (4.4-10.8) Assessment/Plan Assessment/Plan Assessment Acute on chronic renal failure Urinary tract infection Plan Admit the patient to [facility] to the hospitalist Nephrology consultation Michael Resume home medications Social service consult for possible placement Continue treatment per orders. Plan discussed with: Patient My Orders Orders - CHAPARRO VELOZ Procedure Category Date Status Time Ceftriaxone 1gm/50ml PHA 04/05/25 In Process D5w (Rocephin) 09:00 *[facility] CONS 04/05/25 Transmitted -[place] 04:47 Carvedilol Tablet PHA 04/05/25 Logged (Coreg Tablet) 10:00 Aspirin Tablet PHA 04/05/25 Logged 10:00 Atorvastatin (Lipitor) PHA 04/05/25 Logged 22:00 Consistent DIET 04/05/25 Transmitted Carb(Ccho)Diabetes Breakfast Glucose Blood PHA 04/05/25 Logged (Accu-Chek Comfort 06:00 Insulin R (Human) PHA 04/05/25 Logged (Insulin R) 06:00 Dextrose 50% Syringe PHA 04/05/25 Logged 05:00 Admit ADMIT 04/05/25 Transmitted 04:47 Hydrocodone-Acet PHA 04/05/25 Logged 5/325mg Tab ([place] 05:00 Ondansetron Hcl PHA 04/05/25 Logged (Zofran) 05:00 Complete Blood Count LAB 04/06/25 Verified 04:00 Condition: Stable [place] 04/05/25 In Process 04:47 Acetaminophen Tablet PHA 04/05/25 Logged (Tylenol Tablet) 05:00 Bedrest With Bathroom [place] 04/05/25 In Process Privileg 04:47 Basic Metabolic Panel LAB 04/06/25 Verified 04:00 Date of Service: Apr 05, 2025 Billing Provider: CHAPARRO VELOZ Common Visit Codes: [id number] INP/OBS CARE (MOD) CHAPARRO VELOZ Apr 05, 2025 05:01
[2025-04-05] MEDS: SODIUM CHLORIDE 0.9% 1,000 ML IV ONE (05:14)
[2025-04-05] MEDS: InsuLIN REG 1unit/0.01ml Soln (100units/ml) SC SCH (06:02)
[2025-04-05] MEDS: ACCU-CHEK COMFORT CURVE STRIP VI SCH (06:04)
[2025-04-05 07:54] VITALS: PULSE 77; RESP 12; O2SAT 98
[2025-04-05 10:22] LABS: Anion Gap 13 (5-15); Calcium 9.5 mg/dL (8.7-10.4); Carbon Dioxide 26 mmol/L (20-31)
[2025-04-05 10:27] LABS: BUN/Creatinine Ratio 21.6 (10.0-20.0)
[2025-04-05 10:28] LABS: Chloride 101 mmol/L (98-107); Glucose 151 mg/dL (74-106); Potassium 3.9 mmol/L (3.5-5.1); Sodium 140 mmol/L (136-145)
[2025-04-05 10:29] LABS: Blood Urea Nitrogen 93 mg/dL (9-23)
[2025-04-05] MEDS: CARVEDILOL 12.5 MG TAB PO SCH (10:44)
[2025-04-05] MEDS: cefTRIAXone 1GM/50ML D5W 50 ML IV SCH (10:44)
[2025-04-05] MEDS: SODIUM CHLORIDE 0.9% 1,000 ML IV SCH (12:00)
--- NOTE | 2025-04-05 13:08 | DVHINCON2 ---
Date of service: Apr 05, 2025 Reason for Consultation AD History of Present Illness 74 years old male with past medical history of hypertension, diabetes mellitus 2, CKD, peripheral artery disease, hyperlipidemia, right foot osteomyelitis, chronic bilateral leg wounds, history of testicular cancer diagnosed in 1993, status post left orchiectomy came with chief complaints of nausea, vomiting for one day and generalized weakness. Patient was recently discharged from here to on IV ceftriaxone and oral Flagyl. Patient was recently discharged from [facility] with the diagnosis of right lower extremity cellulitis and osteomyelitis of right great toe, status post I and D recently Being treated with several oral antibiotics also as per the son on phone but he was on rifampin, ciprofloxacin Past Medical History per hpi Past Surgical History per hpi Allergies: Coded Allergies: NO KNOWN ALLERGIES (Unverified , 06/12/21) Home Meds Active Scripts Metronidazole (Flagyl) 500 Mg Tab, 500 MG PO TID for 42 Days, #126 TAB Prov:MARITZA FARRAR MD 03/04/25 Hydrocodone-Acetaminophen (Hydrocodone Bitartrate/AC 5-325 mg) 1 Tab Tab, 1 TAB PO BID PRN, #40 TAB Prov:ADARSH WILLIS MD 03/04/25 Rifampin (Rifampin) 300 Mg Cap, 300 MG PO BID, #90 CAP Prov:ADARSH WILLIS MD 03/04/25 Ciprofloxacin Hcl (Cipro) 500 Mg Tab, 1 TAB PO BID, #90 TAB Prov:ADARSH WILLIS MD 03/04/25 Doxycycline (Monohydrate) (Doxycycline) 100 Mg Cap, 100 MG PO BIDAC, #90 CAP Prov:ADARSH WILLIS MD 03/04/25 Reported Medications Tamsulosin Hcl (Tamsulosin Hcl) 0.4 Mg Cap, 0.4 MG PO QPM for 30 Days, MG 02/24/25 Amlodipine Besylate (Amlodipine Besylate) 5 Mg Tab, 1 TAB PO DAILY 02/24/25 Furosemide (Furosemide) 40 Mg Tab, 1 TAB PO DAILY 02/24/25 Aspirin (Aspirin Adult Low Dose) 81 Mg Tab, 1 TAB PO DAILY 02/24/25 Glipizide (Glipizide Er) 2.5 Mg Tab, TAB PO 02/24/25 Carvedilol (Carvedilol) 12.5 Mg Tab, TAB PO 02/24/25 Calcium Carbonate-Cholecalcife (Calcium 500-10 mg-Mcg) 1 Chw Chw, 1 TAB PO BID 02/24/25 Atorvastatin Calcium (ATORVASTATIN CALCIUM) 10 Mg Tab, 10 MG PO DAILY, TAB 06/13/21 Glipizide (Glipizide) 10 Mg Tab, 10 MG PO, TAB 06/13/21 Metformin HCl (Metformin Hydrochloride) 500 Mg/5 Ml Gwendolyn, 500 MG PO, ML 06/13/21 Current Medications Current Medications Medications (Trade) Dose Ordered Sig/Bandar Route PRN Reason Start Time Stop Time Status Last Admin Ceftriaxone Sodium 50 ml @ 100 mls/hr DAILY@09 IV 04/05/25 09:00 04/05/25 12:10 Carvedilol (Coreg Tablet) 12.5 mg Q12HR PO 04/05/25 10:00 04/05/25 10:44 Aspirin 81 mg DAILY PO 04/05/25 10:00 04/05/25 10:00 Atorvastatin Calcium (Lipitor) 10 mg HS PO 04/05/25 22:00 Diagnostic Test (Pha) (Accu-Chek Comfort Curve T) 1 strip Q6HR 04/05/25 06:00 04/05/25 12:11 Insulin Human Regular (InsuLIN R) Q6HR SC 04/05/25 06:00 04/05/25 11:50 Dextrose 50 ml UD PRN IV Blood Sugar LESS THAN 60 04/05/25 05:00 Acetaminophen/ Hydrocodone Bitart ([place] 5/325MG Tab) 1 tab Q4HP PRN PO MODERATE PAIN (4-6 PAIN SCALE) 04/05/25 05:00 Ondansetron HCl (Zofran) 4 mg Q4HP PRN IV NAUSEA / VOMITING 04/05/25 05:00 Acetaminophen (Tylenol Tablet) 650 mg Q6HP PRN PO PAIN SCALE 1-3 OR TEMP>100.4 04/05/25 05:00 Sodium Chloride 1,000 ml @ 75 mls/hr [id number] IV 04/05/25 12:00 Family History: Cerebrovascular accident (CVA) G8 MOTHER FH: CABG (coronary artery bypass surgery) G8 FATHER FH: liver disease G8 FATHER Hepatitis C G8 FATHER Review of Systems per hpi H&P Exam Vital Signs/I&O Vital Sign Date Time Temp Pulse Resp B/P (MAP) Pulse Ox O2 Delivery O2 Flow Rate FiO2 04/05/25 12:13 73 113/53 04/05/25 11:30 15 95 04/05/25 07:54 Room Air* 0 21 04/05/25 07:30 97.8 97.8 Physical Exam General-not in any distress HEENT-normocephalic, no icterus, no pallor, neck supple Respiratory-fair air entry bilateral, [id number] heard, no murmurs appreciated Abdominal-soft, nontender, nondistended Musculoskeletal-wounds + b/l lower extremities Genitourinary-deferred Neuro-awake alert oriented x3, Psychiatric-not agitated, cooperative, Labs/Diagnostic Data Labs/Diagnostic Data Laboratory Tests Test 04/05/25 10:00 04/05/25 05:56 04/04/25 23:40 04/04/25 22:56 Range/Units Sodium Level 140 138 136-145 mmol/L Potassium Level 3.9 4.1 3.5-5.1 mmol/L Chloride Level 101 100 98-107 mmol/L Carbon Dioxide Level 26 25 20-31 mmol/L Anion Gap 13 13 5-15 Blood Urea Nitrogen 93 #*H 79 H 9-23 mg/dL Creatinine 4.31 H 3.96 H 0.700-1.30 mg/dL Glomerular Filtration Rate Calc 14 15 >90 mL/min BUN/Creatinine Ratio 21.6 H 19.9 10.0-20.0 Serum Glucose 151 #H 253 H 74-106 mg/dL Calcium Level 9.5 9.4 8.7-10.4 mg/dL POC Glucose 210 H 70-106 mg/dl Urine Color Yellow Yellow Urine Clarity Turbid H Clear Urine pH 5.5 5.0-9.0 Urine Specific [place] 1.013 1.001-1.035 Urine Protein 1+ H Negative Urine Ketones Negative Negative Urine Blood Negative Negative /uL Urine Nitrite Negative Negative Urine Bilirubin Negative Negative Urine Urobilinogen Normal Negative mg/dL Urine Leukocyte Esterase 3+ Negative /uL Urine RBC 4 0 - 3 /hpf Urine Microscopic WBC 171 H 0-3 /HPF Urine Squamous Epithelial Cells Few <5 /hpf Urine Bacteria None seen None Seen /hpf Urine Yeast (Budding) Loaded None Seen /hpf Urine Glucose Normal Normal mg/dL White Blood Count 10.0 4.4-10.8 10^3/uL Red Blood Count 2.95 L 4.5-5.90 10^6/uL Hemoglobin 9.6 L 13.5-17.5 g/dL Hematocrit 28.3 L 41.0-53.0 % Mean Corpuscular Volume 96.0 80.0-100.0 fL Mean Corpuscular Hemoglobin 32.6 H 28.0-32.0 pg Mean Corpuscular Hemoglobin Concent 34.0 32.0-36.0 g/dL Red Cell Distribution Width 17.0 H 11.8-14.3 % Platelet Count 394 140-450 10^3/uL Mean Platelet Volume 7.3 6.9-10.8 fL Neutrophils (%) (Auto) 84.0 H 37.0-80.0 % Lymphocytes (%) (Auto) 8.2 L 10.0-50.0 % Monocytes (%) (Auto) 6.7 0.0-12.0 % Eosinophils (%) (Auto) 0.5 0.0-7.0 % Basophils (%) (Auto) 0.6 0.0-2.0 % Neutrophils # (Auto) 8.4 1.6-8.6 10 ^3/uL Lymphocytes # (Auto) 0.8 0.4-5.4 10 ^3/uL Monocytes # (Auto) 0.7 0-1.3 10 ^3/uL Eosinophils # (Auto) 0.1 0-0.8 10 ^3/uL Basophils # (Auto) 0.1 0-0.2 10 ^3/uL Nucleated Red Blood Cells 0.1 % Total Bilirubin 0.7 0.2-1.0 mg/dL Aspartate Amino Transferase (AST) 13 13-40 U/L Alanine Aminotransferase (ALT) < 9 7-40 U/L Alkaline Phosphatase 113 46-116 U/L Total Protein 7.6 5.7-8.2 g/dL Albumin 3.9 3.2-4.8 g/dL Lipase 23 12-53 U/L Assessment AD on ckd3b --hemodynamic etiology +/- ATN in the setting of recent prolonged abx concomitant diuretics Osteomyelitis Baseline Chronic kidney disease IIIb HTN cholelithiasis chfpef ef 55 recs ivf as ordered hernandez hold diuretics upcr will follow d/w son on the phn Plan discussed with: Patient SHANTANU BECK MD Apr 05, 2025 13:08
[2025-04-05 13:18] VITALS: BP 118/64; PULSE 71; RESP 18; TEMP 97.7; O2SAT 96
--- NOTE | 2025-04-05 13:40 | DVH ---
INDICATION: r/o edema TECHNIQUE: Frontal view of the chest. COMPARISON: XY CHEST PORTABLE on DOS: 03/09/25, CHEST XRAY 1 VIEW on DOS: 06/12/21 FINDINGS: . Cardiomegaly . There is no evidence of pleural disease. The lungs are clear. The bony structure s of the chest are intact without fracture. IMPRESSION: 1. Cardiomegaly with CHF
[2025-04-05 16:33] VITALS: BP 120/64; PULSE 74; RESP 16; TEMP 98.3; O2SAT 93
[2025-04-05 20:00] VITALS: PULSE 85; RESP 18; O2SAT 95
[2025-04-05 21:00] VITALS: BP 123/54; PULSE 85; RESP 18; TEMP 97.5; O2SAT 95
[2025-04-05] MEDS: ATORVASTATIN 20 MG TAB PO SCH (22:06)
[2025-04-06 05:00] VITALS: BP 133/56; PULSE 77; RESP 18; TEMP 97.9; O2SAT 96
[2025-04-06 06:45] LABS: Hemoglobin 8.4 g/dL (13.5-17.5)
[2025-04-06 06:49] LABS: Hematocrit 24.6 % (41.0-53.0); Mean Corpuscular Hemoglobin 33.2 pg (28.0-32.0); Mean Corpuscular Volume 96.7 fL (80.0-100.0); Nucleated Red Blood Cells % 0.1 %
[2025-04-06 06:52] LABS: Chloride 102 mmol/L (98-107); Sodium 142 mmol/L (136-145)
[2025-04-06 06:53] LABS: Anion Gap 14 (5-15); Carbon Dioxide 26 mmol/L (20-31)
[2025-04-06 06:54] LABS: Calcium 9.3 mg/dL (8.7-10.4)
[2025-04-06 06:58] LABS: BUN/Creatinine Ratio 19.8 (10.0-20.0); Glucose 101 mg/dL (74-106); Potassium 3.4 mmol/L (3.5-5.1)
[2025-04-06 07:30] LABS: Blood Urea Nitrogen 85 mg/dL (9-23)
[2025-04-06] MEDS: cefTRIAXone 1GM/50ML D5W 50 ML IV SCH (09:19)
[2025-04-06 10:23] VITALS: BP 136/64; PULSE 76; RESP 17; TEMP 98.2; O2SAT 97
--- NOTE | 2025-04-06 11:36 | DVHPN2 ---
Subjective The patient seen and examined at bedside. No complains today. He is worry about his kidney. Reviewed: Care Plan, H&P, Labs, Medications, Previous Orders, Radiology Changes from previous H/P or p: No Changes Objective Vitals Vital Signs Date Time Temp Pulse Resp B/P (MAP) Pulse Ox O2 Delivery O2 Flow Rate FiO2 04/06/25 10:23 98.2 76 17 136/64 (88) 97 98.2 04/05/25 20:00 Room Air* 0 21 Intake/Output Intake and Output 04/06/25 07:00 Intake Total 840 ml Output Total 650 ml Balance 190 ml Intake Oral 840 ml Output Urine Total 650 ml General Appearance: Alert, Oriented X3, Cooperative, No acute distress HEENT: Atraumatic, PERRLA, EOMI, Mucous membr. moist/pink Lungs: Clear to auscultation, Normal air movement Cardiovascular: Regular rate, Normal S1, Normal S2, No murmurs, Gallops, Rubs Abdomen: Normal bowel sounds, Soft, No tenderness Neuro: Cranial nerves 3-12 NL Psych/Mental Status: Mental status NL Medications Current Medications Medications Dose Ordered Sig/Bandar Route Start Time Stop Time Status Last Admin Dose Admin Carvedilol 12.5 mg Q12HR PO 04/05/25 10:00 04/06/25 09:19 12.5 MG Aspirin 81 mg DAILY PO 04/05/25 10:00 04/06/25 09:18 81 MG Atorvastatin Calcium 10 mg HS PO 04/05/25 22:00 04/05/25 22:06 10 MG Diagnostic Test (Pha) 1 strip Q6HR 04/05/25 06:00 04/06/25 06:00 1 STRIP Insulin Human Regular Q6HR SC 04/05/25 06:00 04/05/25 11:50 2 UNITS Dextrose 50 ml UD PRN IV 04/05/25 05:00 Acetaminophen/ Hydrocodone Bitart 1 tab Q4HP PRN PO 04/05/25 05:00 Ondansetron HCl 4 mg Q4HP PRN IV 04/05/25 05:00 Acetaminophen 650 mg Q6HP PRN PO 04/05/25 05:00 Sodium Chloride 1,000 ml @ 75 mls/hr [id number] IV 04/05/25 12:00 04/06/25 09:20 75 MLS/HR Ceftriaxone Sodium 50 ml @ 100 mls/hr DAILY@09 IV 04/06/25 09:00 04/06/25 09:19 100 MLS/HR Laboratory Results Laboratory Tests 04/06/25 05:24 Chemistry Test 04/06/25 05:24 Calcium Level 9.3 mg/dL (8.7-10.4) Urinalysis Test 04/04/25 23:40 Urine Color Yellow (Yellow) Urine Clarity Turbid (Clear) H Urine pH 5.5 (5.0-9.0) Urine Specific [place] 1.013 (1.001-1.035) Urine Protein 1+ (Negative) H Urine Ketones Negative (Negative) Urine Blood Negative /uL (Negative) Urine Nitrite Negative (Negative) Urine Bilirubin Negative (Negative) Urine Urobilinogen Normal mg/dL (Negative) Urine Leukocyte Esterase 3+ /uL (Negative) Urine RBC 4 /hpf (0 - 3) Urine Microscopic WBC 171 /HPF (0-3) H Urine Squamous Epithelial Cells Few /hpf (<5) Urine Bacteria None seen /hpf (None Seen) Urine Yeast (Budding) Loaded /hpf (None Seen) Urine Glucose Normal mg/dL (Normal) Labs and/or images reviewed: Labs reviewed by me Assessment/Plan Assessment/Plan Acute on chronic renal failure stage III -hemodynamic etiology +/- ATN in the setting of recent prolonged abx concomitant diuretics Urinary tract infection History of osteomyelitis of the right foot and non healing ulcer of right heel Hypertension Cholelithiasis Benign prostate hyperplasia Continuing current management. Continuing with IV fluid. Appreciate airport operations supervisor input. Diuretics have been stopped. Wound care consulted Podiatry consult for nonhealing ulcer Continuing pain medication Repeat blood tests in the morning This medical document was created using an electronic medical record system with [employer] direct computerized dictation system. Although this document has been carefully reviewed, there may still be some phonetic and typographical errors. These areas are purely typographical due to imperfections of the software programs, and do not reflect any compromise in the patient's medical care. Plan discussed with: Patient My Orders Orders - KAYLIN JAIMES MD Procedure Category Date Status Time Mrsa Screen EUGENIO 04/05/25 In Process 16:58 Date of Service: Apr 06, 2025 Billing Provider: KAYLIN JAIMES MD Common Visit Codes: [id number] INP/OBS CARE(HIGH) KAYLIN JAIMES MD Apr 06, 2025 11:36
[2025-04-06 13:09] VITALS: BP 142/70; PULSE 78; RESP 16; TEMP 98.3; O2SAT 94
[2025-04-06 17:37] VITALS: BP 158/67; PULSE 83; RESP 16; TEMP 98.5; O2SAT 93
[2025-04-06 20:00] VITALS: PULSE 81; RESP 16; O2SAT 95
--- NOTE | 2025-04-06 20:04 | DVHPN2 ---
Progress Note Date Seen: Apr 06, 2025 Medical Necessity Reason Pt with a Central, PICC or Fol: Yes The following are medically ne: Leung Catheter Subjective Patient reports: No new complaints Review of Systems: Deferred Objective vital signs Vital Sign Date Time Temp Pulse Resp B/P (MAP) Pulse Ox O2 Delivery O2 Flow Rate FiO2 04/06/25 17:37 98.5 83 16 158/67 (97) 93 98.5 04/06/25 08:05 Room Air* 0 21 Total Intake and Output 04/05/25 04/05/25 04/06/25 15:00 23:00 07:00 Intake Total 0 ml 840 ml Output Total 300 ml 350 ml Balance -300 ml 490 ml medications Current Medications Medications Dose Ordered Sig/Bandar Route Start Time Stop Time Status Last Admin Dose Admin Carvedilol 12.5 mg Q12HR PO 04/05/25 10:00 04/06/25 09:19 12.5 MG Aspirin 81 mg DAILY PO 04/05/25 10:00 04/06/25 09:18 81 MG Atorvastatin Calcium 10 mg HS PO 04/05/25 22:00 04/05/25 22:06 10 MG Diagnostic Test (Pha) 1 strip Q6HR 04/05/25 06:00 04/06/25 17:37 1 STRIP Insulin Human Regular Q6HR SC 04/05/25 06:00 04/05/25 11:50 2 UNITS Dextrose 50 ml UD PRN IV 04/05/25 05:00 Acetaminophen/ Hydrocodone Bitart 1 tab Q4HP PRN PO 04/05/25 05:00 Ondansetron HCl 4 mg Q4HP PRN IV 04/05/25 05:00 Acetaminophen 650 mg Q6HP PRN PO 04/05/25 05:00 Ceftriaxone Sodium 50 ml @ 100 mls/hr DAILY@09 IV 04/06/25 09:00 04/06/25 09:19 100 MLS/HR Examination: GENERAL:Normal, MSK:Abnormal, SKIN:Abnormal laboratory and microbiology Laboratory Tests 04/06/25 05:24 Test 04/06/25 05:24 Range/Units Serum Glucose 101 74-106 mg/dL Microbiology Date/Time Source Procedure Growth Status 04/05/25 16:35 Nose MRSA Screen - Final Complete Problem List/Assessment/Plan Problem List/Assessment/Plan 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 Unable to offer higher protein diet d/t CKD 3b with GFR 14, 2. unable to offer Armen for wound healing d/t the same reasons. 3. Pt has very poor appetite d/t uremia 4. Encourage cold meals and high quality proteins. 5. Please consider dialysis treatment 6. F/U with nephrology Expected Outcomes/Goals: Declining appetite d/t EBONY herring POOJA MD Apr 06, 2025 20:04
[2025-04-06 21:00] VITALS: BP 146/56; PULSE 81; RESP 16; TEMP 98.1; O2SAT 92
[2025-04-07] VITALS (7 sets, daily range): BP systolic 126–147; BP diastolic 65–75; PULSE 76–83; RESP 14–20; TEMP 97.6–98.1; O2SAT 94–96
[2025-04-07 06:38] LABS: Anion Gap 12 (5-15); Carbon Dioxide 23 mmol/L (20-31); Chloride 104 mmol/L (98-107); Potassium 4.3 mmol/L (3.5-5.1); Sodium 139 mmol/L (136-145)
[2025-04-07 06:39] LABS: Calcium 9.2 mg/dL (8.7-10.4)
[2025-04-07 06:43] LABS: Hematocrit 23.0 % (41.0-53.0); Mean Corpuscular Hemoglobin 33.3 pg (28.0-32.0); Mean Corpuscular Volume 97.6 fL (80.0-100.0); Nucleated Red Blood Cells % 0.9 %
[2025-04-07 06:44] LABS: BUN/Creatinine Ratio 18.5 (10.0-20.0); Glucose 99 mg/dL (74-106)
[2025-04-07 06:45] LABS: Blood Urea Nitrogen 69 mg/dL (9-23)
[2025-04-07 07:07] LABS: Hemoglobin 7.9 g/dL (13.5-17.5)
--- NOTE | 2025-04-07 11:29 | DVHPN2 ---
Subjective The patient seen and examined at bedside. No complains today. He is worry about his kidney. Reviewed: Care Plan, H&P, Labs, Medications, Previous Orders, Radiology Changes from previous H/P or p: No Changes Objective Vitals Vital Signs Date Time Temp Pulse Resp B/P (MAP) Pulse Ox O2 Delivery O2 Flow Rate FiO2 04/07/25 10:52 76 137/69 04/07/25 09:00 97.9 17 94 97.9 04/06/25 20:00 Room Air* 0 21 Intake/Output Intake and Output 04/07/25 07:00 Intake Total 1025 ml Output Total 400 ml Balance 625 ml Intake Oral 600 ml IV Total 425 ml Output Urine Total 400 ml # Bowel Movements 4 General Appearance: Alert, Oriented X3, Cooperative, No acute distress HEENT: Atraumatic, PERRLA, EOMI, Mucous membr. moist/pink Lungs: Clear to auscultation, Normal air movement Cardiovascular: Regular rate, Normal S1, Normal S2, No murmurs, Gallops, Rubs Abdomen: Normal bowel sounds, Soft, No tenderness Neuro: Cranial nerves 3-12 NL Psych/Mental Status: Mental status NL Medications Current Medications Medications Dose Ordered Sig/Bandar Route Start Time Stop Time Status Last Admin Dose Admin Carvedilol 12.5 mg Q12HR PO 04/05/25 10:00 04/07/25 10:52 12.5 MG Aspirin 81 mg DAILY PO 04/05/25 10:00 04/07/25 10:51 81 MG Atorvastatin Calcium 10 mg HS PO 04/05/25 22:00 04/07/25 00:08 10 MG Diagnostic Test (Pha) 1 strip Q6HR 04/05/25 06:00 04/07/25 11:18 1 STRIP Insulin Human Regular Q6HR SC 04/05/25 06:00 04/05/25 11:50 2 UNITS Dextrose 50 ml UD PRN IV 04/05/25 05:00 Acetaminophen/ Hydrocodone Bitart 1 tab Q4HP PRN PO 04/05/25 05:00 Ondansetron HCl 4 mg Q4HP PRN IV 04/05/25 05:00 Acetaminophen 650 mg Q6HP PRN PO 04/05/25 05:00 Ceftriaxone Sodium 50 ml @ 100 mls/hr DAILY@09 IV 04/06/25 09:00 04/07/25 10:48 100 MLS/HR Enteral Nutritional Formula 240 ml TIDWM PO 04/07/25 12:00 UNV Laboratory Results Laboratory Tests 04/07/25 04:47 Chemistry Test 04/07/25 04:47 Calcium Level 9.2 mg/dL (8.7-10.4) Urinalysis Test 04/04/25 23:40 Urine Color Yellow (Yellow) Urine Clarity Turbid (Clear) H Urine pH 5.5 (5.0-9.0) Urine Specific [place] 1.013 (1.001-1.035) Urine Protein 1+ (Negative) H Urine Ketones Negative (Negative) Urine Blood Negative /uL (Negative) Urine Nitrite Negative (Negative) Urine Bilirubin Negative (Negative) Urine Urobilinogen Normal mg/dL (Negative) Urine Leukocyte Esterase 3+ /uL (Negative) Urine RBC 4 /hpf (0 - 3) Urine Microscopic WBC 171 /HPF (0-3) H Urine Squamous Epithelial Cells Few /hpf (<5) Urine Bacteria None seen /hpf (None Seen) Urine Yeast (Budding) Loaded /hpf (None Seen) Urine Glucose Normal mg/dL (Normal) Microbiology Microbiology Date/Time Source Procedure Growth Status 04/05/25 16:35 Nose MRSA Screen - Final Complete Labs and/or images reviewed: Labs reviewed by me Assessment/Plan Assessment/Plan Acute on chronic renal failure stage III -hemodynamic etiology +/- ATN in the setting of recent prolonged abx concomitant diuretics Urinary tract infection History of osteomyelitis of the right foot and non healing ulcer of right heel Hypertension Cholelithiasis Benign prostate hyperplasia Continuing current management. Continuing with IV fluid. Appreciate oil field worker input. Diuretics have been stopped. Wound care consulted Podiatry consult for nonhealing ulcer, Waiting for senior applications engineer to see patient. Continuing pain medication Repeat blood tests in the morning Continue with IV antibiotic Rocephin Will start patient on nepro supplement This medical document was created using an electronic medical record system with M*M flurenCubeyou direct computerized dictation system. Although this document has been carefully reviewed, there may still be some phonetic and typographical errors. These areas are purely typographical due to imperfections of the software programs, and do not reflect any compromise in the patient's medical care. Plan discussed with: Patient My Orders Orders - KAYLIN JAIMES MD Procedure Category Date Status Time Podiatry Consult CONS 04/06/25 Transmitted 14:22 Complete Blood Count LAB 04/08/25 Verified 05:00 Complete Blood Count LAB 04/09/25 Verified 05:00 Basic Metabolic Panel LAB 04/08/25 Verified 05:00 Basic Metabolic Panel LAB 04/09/25 Verified 05:00 Nutritional PHA 04/07/25 Logged Supplements (Nepro 12:00 Date of Service: Apr 07, 2025 Billing Provider: KAYLIN JAIMES MD Common Visit Codes: [id number] INP/OBS CARE(HIGH) KAYLIN JAIMES MD Apr 07, 2025 11:29
[2025-04-07] MEDS ORDERED: Ensure HIGH Protein Chocolate 8oz Bottle PO SCH (12:00)
[2025-04-07] MEDS: Nepro With Carbsteady ButterPecan 8oz Carton PO SCH (12:00)
--- NOTE | 2025-04-07 13:10 | DVHINCON2 ---
Date Seen: Apr 07, 2025 Reason for Consultation Bilateral foot wounds History of Present Illness 74-year-old male presents for evaluation of generalized weakness. Patient reports recently being discharged after being treated for a foot infection. He reports having multiple episodes of nausea with vomiting and generalized weakness. Denies abdominal pain. No fever or chills. No cardiac or respiratory symptoms Past Medical History See H&P Past Surgical History See H&P Family History: Cerebrovascular accident (CVA) G8 MOTHER FH: CABG (coronary artery bypass surgery) G8 FATHER FH: liver disease G8 FATHER Hepatitis C G8 FATHER Allergies: Coded Allergies: NO KNOWN ALLERGIES (Unverified , 06/12/21) Home Meds Active Scripts Metronidazole (Flagyl) 500 Mg Tab, 500 MG PO TID for 42 Days, #126 TAB Prov:MARITZA FARRAR MD 03/04/25 Hydrocodone-Acetaminophen (Hydrocodone Bitartrate/AC 5-325 mg) 1 Tab Tab, 1 TAB PO BID PRN, #40 TAB Prov:ADARSH WILLIS MD 03/04/25 Rifampin (Rifampin) 300 Mg Cap, 300 MG PO BID, #90 CAP Prov:ADARSH WILLIS MD 03/04/25 Ciprofloxacin Hcl (Cipro) 500 Mg Tab, 1 TAB PO BID, #90 TAB Prov:ADARSH WILLIS MD 03/04/25 Doxycycline (Monohydrate) (Doxycycline) 100 Mg Cap, 100 MG PO BIDAC, #90 CAP Prov:ADARSH WILLIS MD 03/04/25 Reported Medications Tamsulosin Hcl (Tamsulosin Hcl) 0.4 Mg Cap, 0.4 MG PO QPM for 30 Days, MG 02/24/25 Amlodipine Besylate (Amlodipine Besylate) 5 Mg Tab, 1 TAB PO DAILY 02/24/25 Furosemide (Furosemide) 40 Mg Tab, 1 TAB PO DAILY 02/24/25 Aspirin (Aspirin Adult Low Dose) 81 Mg Tab, 1 TAB PO DAILY 02/24/25 Glipizide (Glipizide Er) 2.5 Mg Tab, TAB PO 02/24/25 Carvedilol (Carvedilol) 12.5 Mg Tab, TAB PO 02/24/25 Calcium Carbonate-Cholecalcife (Calcium 500-10 mg-Mcg) 1 Chw Chw, 1 TAB PO BID 02/24/25 Atorvastatin Calcium (ATORVASTATIN CALCIUM) 10 Mg Tab, 10 MG PO DAILY, TAB 06/13/21 Glipizide (Glipizide) 10 Mg Tab, 10 MG PO, TAB 06/13/21 Metformin HCl (Metformin Hydrochloride) 500 Mg/5 Ml Gwendolyn, 500 MG PO, ML 06/13/21 Current Medications Current Medications Medications (Trade) Dose Ordered Sig/Bandar Route PRN Reason Start Time Stop Time Status Last Admin Enteral Nutritional Formula (Ensure High Protein) 240 ml TIDWM PO 04/07/25 12:00 04/07/25 11:15 DC Enteral Nutritional Formula (Nepro With Carbsteady) 240 ml TIDWM PO 04/07/25 12:00 Vital Signs Vital Signs Date Time Temp Pulse Resp B/P (MAP) Pulse Ox O2 Delivery O2 Flow Rate FiO2 04/07/25 10:52 76 137/69 04/07/25 09:00 97.9 17 94 97.9 04/06/25 20:00 Room Air* 0 21 Physical Exam Dermatological: Skin is dry with mild erythema and some maceration around the wound site No gross deformities noted Mild non-pitting edema present bilaterally Large eschar left plantar heel Small scab along the incision of the right hallux Vascular: Dorsalis pedis and posterior tibial pulses are 1+ bilaterally Capillary refill is under 2 seconds Skin temperature is warm bilaterally Neurologic: Protective sensation is absent on the plantar forefoot bilaterally Monofilament testing reveals decreased sensation in multiple plantar sites Musculoskeletal: Range of motion at the ankle and MTP joints is within normal limits. Strength is 5/5 in all tested muscle groups. Gait is antalgic due to offloading of the affected limb. Labs/Diagnostic Data Labs Test 04/07/25 11:16 04/07/25 04:47 04/04/25 23:40 04/04/25 22:56 Range/Units POC Glucose 106 70-106 mg/dl White Blood Count 8.8 # 4.4-10.8 10^3/uL Red Blood Count 2.36 L 4.5-5.90 10^6/uL Hemoglobin 7.9 L 13.5-17.5 g/dL Hematocrit 23.0 L 41.0-53.0 % Mean Corpuscular Volume 97.6 80.0-100.0 fL Mean Corpuscular Hemoglobin 33.3 H 28.0-32.0 pg Mean Corpuscular Hemoglobin Concent 34.1 32.0-36.0 g/dL Red Cell Distribution Width 17.0 H 11.8-14.3 % Platelet Count 322 140-450 10^3/uL Mean Platelet Volume 7.6 6.9-10.8 fL Neutrophils (%) (Auto) 74.8 37.0-80.0 % Lymphocytes (%) (Auto) 11.2 10.0-50.0 % Monocytes (%) (Auto) 7.9 0.0-12.0 % Eosinophils (%) (Auto) 5.3 0.0-7.0 % Basophils (%) (Auto) 0.8 0.0-2.0 % Neutrophils # (Auto) 6.6 1.6-8.6 10 ^3/uL Lymphocytes # (Auto) 1.0 0.4-5.4 10 ^3/uL Monocytes # (Auto) 0.7 0-1.3 10 ^3/uL Eosinophils # (Auto) 0.5 0-0.8 10 ^3/uL Basophils # (Auto) 0.1 0-0.2 10 ^3/uL Nucleated Red Blood Cells 0.9 % Sodium Level 139 136-145 mmol/L Potassium Level 4.3 3.5-5.1 mmol/L Chloride Level 104 98-107 mmol/L Carbon Dioxide Level 23 20-31 mmol/L Anion Gap 12 5-15 Blood Urea Nitrogen 69 #H 9-23 mg/dL Creatinine 3.72 H 0.700-1.30 mg/dL Glomerular Filtration Rate Calc 16 >90 mL/min BUN/Creatinine Ratio 18.5 10.0-20.0 Serum Glucose 99 74-106 mg/dL Calcium Level 9.2 8.7-10.4 mg/dL Urine Color Yellow Yellow Urine Clarity Turbid H Clear Urine pH 5.5 5.0-9.0 Urine Specific [place] 1.013 1.001-1.035 Urine Protein 1+ H Negative Urine Ketones Negative Negative Urine Blood Negative Negative /uL Urine Nitrite Negative Negative Urine Bilirubin Negative Negative Urine Urobilinogen Normal Negative mg/dL Urine Leukocyte Esterase 3+ Negative /uL Urine RBC 4 0 - 3 /hpf Urine Microscopic WBC 171 H 0-3 /HPF Urine Squamous Epithelial Cells Few <5 /hpf Urine Bacteria None seen None Seen /hpf Urine Yeast (Budding) Loaded None Seen /hpf Urine Glucose Normal Normal mg/dL Total Bilirubin 0.7 0.2-1.0 mg/dL Aspartate Amino Transferase (AST) 13 13-40 U/L Alanine Aminotransferase (ALT) < 9 7-40 U/L Alkaline Phosphatase 113 46-116 U/L Total Protein 7.6 5.7-8.2 g/dL Albumin 3.9 3.2-4.8 g/dL Lipase 23 12-53 U/L Microbiology Date/Time Source Procedure Growth Status 04/05/25 16:35 Nose MRSA Screen - Final Complete Problems(with codes): (1) Near syncope (2) Autonomic dysfunction (3) Hypokalemia (4) Hyperkalemia (5) Azotemia (6) Urinary retention (7) Foot osteomyelitis, right (8) Cyclical vomiting (9) Gravely disabled (10) Generalized weakness Plan/Recommendation ASSESSMENT: Patient is a 74 year old seen on the floor for a worsening ulcer PLAN: - The patients chart was reviewed, clinical findings were discussed with the patient, the etiologies of the conditions were discussed in detail, and a treatment plan was agreed to at this time, with both oral and written instructions provided. - reviewed advanced imaging - discussed with the patient that the wounds appear to be stable - right hallux has healed - plantar left heel needs Betadine and offloaded - no obvious signs of cellulitis - recommend no more antibiotics - follow up on discharge All questions were answered and concerns addressed to the patient's satisfaction. The patient was given the phone number to the clinic and was told how to make contact with the clinic should any concerns or questions arise. Patient understands that if any questions or concerns arise prior to the next appointment, we should be contacted immediately. FOLLOW-UP: Continue to follow while inpatient Plan discussed with: Patient Date of Service: Apr 07, 2025 Billing Provider: MENDOZA LEWIS DPM Common Visit Codes: CONSULT ONLY Consultation Codes: [id number] CONSULT <80MIN MENDOZA LEWIS DPM Apr 07, 2025 13:10
--- NOTE | 2025-04-07 15:28 | DVHPN2 ---
Progress Note Date Seen: Apr 07, 2025 Medical Necessity Reason Pt with a Central, PICC or Fol: Yes The following are medically ne: Leung Catheter Subjective Patient reports: No new complaints, Feels better Review of Systems: Deferred Objective vital signs Vital Sign Date Time Temp Pulse Resp B/P (MAP) Pulse Ox O2 Delivery O2 Flow Rate FiO2 04/07/25 10:52 76 137/69 04/07/25 09:00 97.9 17 94 97.9 04/07/25 08:00 Room Air* 0 21 Total Intake and Output 04/06/25 04/06/25 04/07/25 15:00 23:00 07:00 Intake Total 425 ml 200 ml 400 ml Output Total 400 ml Balance 425 ml 200 ml 0 ml medications Current Medications Medications Dose Ordered Sig/Bandar Route Start Time Stop Time Status Last Admin Dose Admin Carvedilol 12.5 mg Q12HR PO 04/05/25 10:00 04/07/25 10:52 12.5 MG Aspirin 81 mg DAILY PO 04/05/25 10:00 04/07/25 10:51 81 MG Atorvastatin Calcium 10 mg HS PO 04/05/25 22:00 04/07/25 00:08 10 MG Diagnostic Test (Pha) 1 strip Q6HR 04/05/25 06:00 04/07/25 11:18 1 STRIP Insulin Human Regular Q6HR SC 04/05/25 06:00 04/05/25 11:50 2 UNITS Dextrose 50 ml UD PRN IV 04/05/25 05:00 Acetaminophen/ Hydrocodone Bitart 1 tab Q4HP PRN PO 04/05/25 05:00 Ondansetron HCl 4 mg Q4HP PRN IV 04/05/25 05:00 Acetaminophen 650 mg Q6HP PRN PO 04/05/25 05:00 Ceftriaxone Sodium 50 ml @ 100 mls/hr DAILY@09 IV 04/06/25 09:00 04/07/25 10:48 100 MLS/HR Enteral Nutritional Formula 240 ml TIDWM PO 04/07/25 12:00 Examination: GENERAL:Normal, HEENT:Normal, NECK:Normal, LUNGS:Normal, CVS:Normal, ABDOMEN:Normal, MSK:Abnormal, SKIN:Abnormal, NEURO:Normal, :Normal laboratory and microbiology Laboratory Tests 04/07/25 04:47 Test 04/07/25 04:47 Range/Units Serum Glucose 99 74-106 mg/dL Microbiology Date/Time Source Procedure Growth Status 04/05/25 16:35 Nose MRSA Screen - Final Complete Problem List/Assessment/Plan Problem List/Assessment/Plan AD on ckd3b --hemodynamic etiology +/- ATN in the setting of recent prolonged abx concomitant diuretics Osteomyelitis Baseline Chronic kidney disease IIIb-- clinic HTN cholelithiasis chfpef ef 55 recs better renal function since admission f/u in 2 weeks after dc in ckd clinic no need for WOOL CLEANER non oliguric Plan discussed with: Patient Dietary Evaluation Review Comments: 1. Unable to offer higher protein diet d/t CKD 3b with GFR 14, 2. unable to offer Armen for wound healing d/t the same reasons. 3. Pt has very poor appetite d/t uremia 4. Encourage cold meals and high quality proteins. 5. Please consider dialysis treatment 6. F/U with nephrology Expected Outcomes/Goals: Declining appetite d/t uremia, SHANTANU BECK MD Apr 07, 2025 15:28
[2025-04-08] VITALS (8 sets, daily range): BP systolic 133–161; BP diastolic 71–81; PULSE 77–90; RESP 16–18; TEMP 97.7–99.3; O2SAT 95–98
[2025-04-08 06:06] LABS: Nucleated Red Blood Cells % 0.0 %
[2025-04-08 06:13] LABS: Hematocrit 23.0 % (41.0-53.0); Hemoglobin 8.1 g/dL (13.5-17.5); Mean Corpuscular Hemoglobin 33.8 pg (28.0-32.0); Mean Corpuscular Volume 95.6 fL (80.0-100.0)
[2025-04-08 06:24] LABS: Anion Gap 13 (5-15); Carbon Dioxide 23 mmol/L (20-31); Chloride 104 mmol/L (98-107); Potassium 3.9 mmol/L (3.5-5.1); Sodium 140 mmol/L (136-145)
[2025-04-08 06:27] LABS: Calcium 8.6 mg/dL (8.7-10.4)
[2025-04-08 06:30] LABS: BUN/Creatinine Ratio 20.8 (10.0-20.0); Blood Urea Nitrogen 70 mg/dL (9-23); Glucose 104 mg/dL (74-106)
--- NOTE | 2025-04-08 13:13 | ECG ---
[facility] Test Date: 2025-04-08 Test Time: 12:32:59 Pat Name: RAJESH ELIAS Department: Respiratoy Room: 0212 A Gender: M Finger Waver: TIA : 1950 Requested By: HALEY CISNEROS Order Number: [id number] Reading MD: Kelton Ji Measurements Intervals [place] Rate: 74 P: -8 RI: 181 QRS: -69 QRSD: 149 T: -49 QT: 420 QTc: 466 Interpretive Statements Sinus rhythm Atrial premature complex RBBB and LAFB LVH with secondary repolarization abnormality Electronically Signed On 04-11-2025 21:39:41 PDT by Kelton Ji Please click the below link to view image of tracing.
--- NOTE | 2025-04-08 13:42 | DVHINCON2 ---
Date Seen: Apr 08, 2025 Referring Physician MD Rupali Reason for Consultation History of triple-vessel disease now with cholelithiasis History of Present Illness This is a 74-year-old male patient who presents to emergency room with chief complaint of nausea and vomiting for two weeks prior to emergency room arrival. Cardiology has been consulted at this time for patient's history of triple- vessel disease. Initial twelve lead electrocardiogram was done at bedside during assessment and reveals normal sinus rhythm with PAC, right bundle branch block, and T-wave inversion seen in inferolateral leads. The patient denies any cardiac symptoms at this time. Significant past medical history includes severe three-vessel coronary artery disease, hypertension, dyslipidemia, severe peripheral arterial disease, chronic kidney disease, type 2 diabetes mellitus, and left testicular cancer status post left orchiectomy in 1993. The patient was recently seen at this facility and underwent a coronary angiogram with left heart catheterization on 03/11/2025 which revealed severe three-vessel coronary artery disease, in which no intervention was done at that time. Consideration for higher level of care was recommended for possible high-risk PCI versus CABG. After reviewing previous visit notes, aids social worker documentation states that the patient was turned down by many facilities due to not being a candidate for CABG. At that time, the cardiology team opted with the patient for medical management. Past Medical History Past medical history reviewed. No other significant than mentioned above. Past Surgical History Left orchiectomy in 1993 Bilateral cataract surgery Family History: Cerebrovascular accident (CVA) G8 MOTHER FH: CABG (coronary artery bypass surgery) G8 FATHER FH: liver disease G8 FATHER Hepatitis C G8 FATHER Family History Family history reviewed. Social History Denies the use of tobacco, alcohol or illicit drugs. Allergies: Coded Allergies: NO KNOWN ALLERGIES (Unverified , 06/12/21) Home Meds Active Scripts Metronidazole (Flagyl) 500 Mg Tab, 500 MG PO TID for 42 Days, #126 TAB Prov:MARITZA FARRAR MD 03/04/25 Hydrocodone-Acetaminophen (Hydrocodone Bitartrate/AC 5-325 mg) 1 Tab Tab, 1 TAB PO BID PRN, #40 TAB Prov:ADARSH WILLIS MD 03/04/25 Rifampin (Rifampin) 300 Mg Cap, 300 MG PO BID, #90 CAP Prov:ADARSH WILLIS MD 03/04/25 Ciprofloxacin Hcl (Cipro) 500 Mg Tab, 1 TAB PO BID, #90 TAB Prov:ADARSH WILLIS MD 03/04/25 Doxycycline (Monohydrate) (Doxycycline) 100 Mg Cap, 100 MG PO BIDAC, #90 CAP Prov:ADARSH WILLIS MD 03/04/25 Reported Medications Tamsulosin Hcl (Tamsulosin Hcl) 0.4 Mg Cap, 0.4 MG PO QPM for 30 Days, MG 02/24/25 Amlodipine Besylate (Amlodipine Besylate) 5 Mg Tab, 1 TAB PO DAILY 02/24/25 Furosemide (Furosemide) 40 Mg Tab, 1 TAB PO DAILY 02/24/25 Aspirin (Aspirin Adult Low Dose) 81 Mg Tab, 1 TAB PO DAILY 02/24/25 Glipizide (Glipizide Er) 2.5 Mg Tab, TAB PO 02/24/25 Carvedilol (Carvedilol) 12.5 Mg Tab, TAB PO 02/24/25 Calcium Carbonate-Cholecalcife (Calcium 500-10 mg-Mcg) 1 Chw Chw, 1 TAB PO BID 02/24/25 Atorvastatin Calcium (ATORVASTATIN CALCIUM) 10 Mg Tab, 10 MG PO DAILY, TAB 06/13/21 Glipizide (Glipizide) 10 Mg Tab, 10 MG PO, TAB 06/13/21 Metformin HCl (Metformin Hydrochloride) 500 Mg/5 Ml Gwendolyn, 500 MG PO, ML 06/13/21 Home Meds Home medications reviewed. Review of Systems Constitutional: No symptom reported Ears, Nose, & Throat: No symptom reported Eyes: No symptom reported Neurological: No symptoms reported Pulmonary/Respiratory: No symptoms reported Cardiovascular: No symptom reported Gastrointestinal: Nausea and vomiting Genitourinary: No symptom reported Musculoskeletal: No symptom reported Skin: No symptom reported Psychiatric: No symptom reported Endocrine: No symptom reported Hematologic/Lymphatic: No symptom reported Vital Signs Vital Signs Date Time Temp Pulse Resp B/P (MAP) Pulse Ox O2 Delivery O2 Flow Rate FiO2 04/08/25 12:48 98.5 77 18 161/72 (101) 96 98.5 04/08/25 08:00 Room Air* 0 21 Physical Exam General Appearance: Cooperative. Well-developed. Well-nourished. No acute distress. Pulmonary/Respiratory: Clear, bilateral breaths sounds. Cardiovascular/Chest: Regular rate and rhythm. Peripheral Pulses: 2+ Radial (R). 2+ Radial (L). 2+ Pedal (R). 2+ Pedal (L) Abdominal Exam: Normal bowel sounds. Ankle Exam: Negative ankle edema Lower extremities: Negative lower extremity edema Neuro/Mental Status: A/OX4, coherent. Thoughts/Psych: Normal thought pattern. Appropriate mood and affect. Good judgment and insight. Appearance: No acute distress. Skin Exam: Multiple wounds/scabs to bilateral lower extremities. Labs/Diagnostic Data Labs Test 04/08/25 12:08 04/08/25 05:00 04/04/25 23:40 04/04/25 22:56 Range/Units POC Glucose 124 H 70-106 mg/dl White Blood Count 5.7 # 4.4-10.8 10^3/uL Red Blood Count 2.40 L 4.5-5.90 10^6/uL Hemoglobin 8.1 L 13.5-17.5 g/dL Hematocrit 23.0 L 41.0-53.0 % Mean Corpuscular Volume 95.6 80.0-100.0 fL Mean Corpuscular Hemoglobin 33.8 H 28.0-32.0 pg Mean Corpuscular Hemoglobin Concent 35.3 32.0-36.0 g/dL Red Cell Distribution Width 16.7 H 11.8-14.3 % Platelet Count 241 140-450 10^3/uL Mean Platelet Volume 7.4 6.9-10.8 fL Neutrophils (%) (Auto) 72.4 37.0-80.0 % Lymphocytes (%) (Auto) 10.6 10.0-50.0 % Monocytes (%) (Auto) 11.1 0.0-12.0 % Eosinophils (%) (Auto) 5.1 0.0-7.0 % Basophils (%) (Auto) 0.8 0.0-2.0 % Neutrophils # (Auto) 4.1 1.6-8.6 10 ^3/uL Lymphocytes # (Auto) 0.6 0.4-5.4 10 ^3/uL Monocytes # (Auto) 0.6 0-1.3 10 ^3/uL Eosinophils # (Auto) 0.3 0-0.8 10 ^3/uL Basophils # (Auto) 0 0-0.2 10 ^3/uL Nucleated Red Blood Cells 0.0 % Sodium Level 140 136-145 mmol/L Potassium Level 3.9 3.5-5.1 mmol/L Chloride Level 104 98-107 mmol/L Carbon Dioxide Level 23 20-31 mmol/L Anion Gap 13 5-15 Blood Urea Nitrogen 70 H 9-23 mg/dL Creatinine 3.36 H 0.700-1.30 mg/dL Glomerular Filtration Rate Calc 18 >90 mL/min BUN/Creatinine Ratio 20.8 H 10.0-20.0 Serum Glucose 104 74-106 mg/dL Calcium Level 8.6 L 8.7-10.4 mg/dL Urine Color Yellow Yellow Urine Clarity Turbid H Clear Urine pH 5.5 5.0-9.0 Urine Specific [place] 1.013 1.001-1.035 Urine Protein 1+ H Negative Urine Ketones Negative Negative Urine Blood Negative Negative /uL Urine Nitrite Negative Negative Urine Bilirubin Negative Negative Urine Urobilinogen Normal Negative mg/dL Urine Leukocyte Esterase 3+ Negative /uL Urine RBC 4 0 - 3 /hpf Urine Microscopic WBC 171 H 0-3 /HPF Urine Squamous Epithelial Cells Few <5 /hpf Urine Bacteria None seen None Seen /hpf Urine Yeast (Budding) Loaded None Seen /hpf Urine Glucose Normal Normal mg/dL Total Bilirubin 0.7 0.2-1.0 mg/dL Aspartate Amino Transferase (AST) 13 13-40 U/L Alanine Aminotransferase (ALT) < 9 7-40 U/L Alkaline Phosphatase 113 46-116 U/L Total Protein 7.6 5.7-8.2 g/dL Albumin 3.9 3.2-4.8 g/dL Lipase 23 12-53 U/L Microbiology Date/Time Source Procedure Growth Status 04/05/25 16:35 Nose MRSA Screen - Final Complete Assessment Preprocedural cardiovascular examination Severe triple-vessel coronary artery disease Hypertension Dyslipidemia Severe peripheral arterial disease Cholelithiasis Chronic kidney disease Right great toe osteomyelitis status post I&D to the bone Obesity Plan/Recommendation We will continue with the following plan/recommendations (Dr. Ji): Case discussed with . Previous transthoracic echocardiogram from 03/10/2025 reveals an EF of 50-55%. Revised cardiac risk index (Winston criteria): 3 points (10% risk of major cardiac event). Prior to emergency room arrival, the patient reports a poor functional capacity. The patient has severe coronary artery disease. Per cardiology standpoint, patient is at an high-risk for moderate-risk surgery. There is no additional cardiac work-up indicated prior to surgery. Thank you for allowing us to participate in this patient's care. Please call if you have any questions or concerns. Computer Lab Assistant had an extensive discussion with the patient regarding his multivessel disease and the need for cardiac surgical intervention. Patient adamantly refusing possible CABG or transfer to higher level of care for evaluation. Patient states he would like to proceed with medical management alone. Continue with dual antiplatelet therapy and lipid-lowering agent. Continue with aggressive blood pressure control as tolerated. Thank you for allowing us to care for this patient. Please call with any questions or co ncerns. Critical care time spent: 44 minutes This medical document was created using an electronic medical record system with voice recognition software and computerized dictation system. Although this document has been carefully reviewed, there might still be some phonetic and typographical errors. Occasional wrong-word or ``sound-alike substitutions may have occurred due to the inherent limitations of voice recognition software. These areas are purely typographical due to imperfections of the software programs and do not reflect any compromise in the patient's medical care. Please read the chart carefully and recognize, using context, where these substitutions have occurred. Plan discussed with: Patient NYHA Physical activity limitations: NA Date of Service: Apr 08, 2025 Billing Provider: HALEY CISNEROS Cardiology Common Codes: [id number] INP/OBS CARE (High) Cardiology Consultation Codes: [id number] CONSULT <45MIN HALEY CISNEROS Apr 08, 2025 13:42
--- NOTE | 2025-04-08 15:14 | DVHPN2 ---
Subjective nausea is better today/denies any vomiting/was not aware of gall stones before/ is aware of triple vessel disease but states would like to talk to associate chief nurse again of options Reviewed: Care Plan, H&P, Labs, Medications, Previous Orders, Radiology Changes from previous H/P or p: No Changes Objective Vitals Vital Signs Date Time Temp Pulse Resp B/P (MAP) Pulse Ox O2 Delivery O2 Flow Rate FiO2 04/08/25 12:48 98.5 77 18 161/72 (101) 96 98.5 04/08/25 08:00 Room Air* 0 21 Intake/Output Intake and Output 04/08/25 07:00 Intake Total 660 ml Output Total 600 ml Balance 60 ml Intake Oral 660 ml Output Urine Total 600 ml General Appearance: Alert, Oriented X3, Cooperative, No acute distress HEENT: Atraumatic, PERRLA, EOMI, Mucous membr. moist/pink Lungs: Clear to auscultation, Normal air movement Cardiovascular: Regular rate, Normal S1, Normal S2, No murmurs, Gallops, Rubs Abdomen: Normal bowel sounds, Soft, No tenderness Extremities: Other (left leg necrotic escar in heel 4 cm and mid foot lateral border 3 cm//poor peripheral pulses) Neuro: Normal speech, Strength at 5/5 X4 ext, Sensation intact, Cranial nerves 3-12 NL Psych/Mental Status: Mental status NL Medications Current Medications Medications Dose Ordered Sig/Bandar Route Start Time Stop Time Status Last Admin Dose Admin Carvedilol 12.5 mg Q12HR PO 04/05/25 10:00 04/08/25 09:35 12.5 MG Aspirin 81 mg DAILY PO 04/05/25 10:00 04/08/25 09:35 81 MG Atorvastatin Calcium 10 mg HS PO 04/05/25 22:00 04/07/25 23:38 10 MG Diagnostic Test (Pha) 1 strip Q6HR 04/05/25 06:00 04/08/25 12:09 1 STRIP Insulin Human Regular Q6HR SC 04/05/25 06:00 04/07/25 17:29 2 UNITS Dextrose 50 ml UD PRN IV 04/05/25 05:00 Acetaminophen/ Hydrocodone Bitart 1 tab Q4HP PRN PO 04/05/25 05:00 Ondansetron HCl 4 mg Q4HP PRN IV 04/05/25 05:00 Acetaminophen 650 mg Q6HP PRN PO 04/05/25 05:00 Ceftriaxone Sodium 50 ml @ 100 mls/hr DAILY@09 IV 04/06/25 09:00 04/07/25 10:48 100 MLS/HR Enteral Nutritional Formula 240 ml TIDWM PO 04/07/25 12:00 04/08/25 12:09 240 ML Laboratory Results Laboratory Tests 04/08/25 05:00 Chemistry Test 04/08/25 05:00 Calcium Level 8.6 mg/dL (8.7-10.4) L Urinalysis Test 04/04/25 23:40 Urine Color Yellow (Yellow) Urine Clarity Turbid (Clear) H Urine pH 5.5 (5.0-9.0) Urine Specific [place] 1.013 (1.001-1.035) Urine Protein 1+ (Negative) H Urine Ketones Negative (Negative) Urine Blood Negative /uL (Negative) Urine Nitrite Negative (Negative) Urine Bilirubin Negative (Negative) Urine Urobilinogen Normal mg/dL (Negative) Urine Leukocyte Esterase 3+ /uL (Negative) Urine RBC 4 /hpf (0 - 3) Urine Microscopic WBC 171 /HPF (0-3) H Urine Squamous Epithelial Cells Few /hpf (<5) Urine Bacteria None seen /hpf (None Seen) Urine Yeast (Budding) Loaded /hpf (None Seen) Urine Glucose Normal mg/dL (Normal) Microbiology Microbiology Date/Time Source Procedure Growth Status 04/05/25 16:35 Nose MRSA Screen - Final Complete Labs and/or images reviewed: Labs reviewed by me, Image(s) reviewed by me Assessment/Plan Assessment/Plan nausea/cholelithiasis- nausea has resolved/educated 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
--- NOTE | 2025-04-08 15:39 | DVHPN2 ---
Progress Note Date Seen: Apr 08, 2025 Medical Necessity Reason Pt with a Central, PICC or Fol: Yes The following are medically ne: Leung Catheter Subjective Patient reports: No new complaints, Feels better Objective vital signs Vital Sign Date Time Temp Pulse Resp B/P (MAP) Pulse Ox O2 Delivery O2 Flow Rate FiO2 04/08/25 12:48 98.5 77 18 161/72 (101) 96 98.5 04/08/25 08:00 Room Air* 0 21 Total Intake and Output 04/07/25 04/07/25 04/08/25 15:00 23:00 07:00 Intake Total 460 ml 200 ml Output Total 250 ml 350 ml Balance 210 ml -150 ml medications Current Medications Medications Dose Ordered Sig/Bandar Route Start Time Stop Time Status Last Admin Dose Admin Carvedilol 12.5 mg Q12HR PO 04/05/25 10:00 04/08/25 09:35 12.5 MG Aspirin 81 mg DAILY PO 04/05/25 10:00 04/08/25 09:35 81 MG Atorvastatin Calcium 10 mg HS PO 04/05/25 22:00 04/07/25 23:38 10 MG Diagnostic Test (Pha) 1 strip Q6HR 04/05/25 06:00 04/08/25 12:09 1 STRIP Insulin Human Regular Q6HR SC 04/05/25 06:00 04/07/25 17:29 2 UNITS Dextrose 50 ml UD PRN IV 04/05/25 05:00 Acetaminophen/ Hydrocodone Bitart 1 tab Q4HP PRN PO 04/05/25 05:00 Ondansetron HCl 4 mg Q4HP PRN IV 04/05/25 05:00 Acetaminophen 650 mg Q6HP PRN PO 04/05/25 05:00 Ceftriaxone Sodium 50 ml @ 100 mls/hr DAILY@09 IV 04/06/25 09:00 04/07/25 10:48 100 MLS/HR Enteral Nutritional Formula 240 ml TIDWM PO 04/07/25 12:00 04/08/25 12:09 240 ML Examination Gen: Appears stated age, NAD Lungs: CTA, bilateral air entry Heart: RRR, normal S1 and S2 Abd: Soft, nontender, nondistended, normoactive bowel sounds Ext: No edema Neuro: A&O x4 laboratory and microbiology Laboratory Tests 04/08/25 05:00 Test 04/08/25 05:00 Range/Units Serum Glucose 104 74-106 mg/dL Microbiology Date/Time Source Procedure Growth Status 04/05/25 16:35 Nose MRSA Screen - Final Complete Labs and/or images reviewed: Labs reviewed by me Problem List/Assessment/Plan Problem List/Assessment/Plan 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 Ponce 2 weeks after D/C - We will continue to follow Plan discussed with: Patient Dietary Evaluation Review Comments: 1. Unable to offer higher protein diet d/t CKD 3b with GFR 14, 2. unable to offer Armen for wound healing d/t the same reasons. 3. Pt has very poor appetite d/t uremia 4. Encourage cold meals and high quality proteins. 5. Please consider dialysis treatment 6. F/U with nephrology Expected Outcomes/Goals: Declining appetite d/t uremia, MARIO SCHULTZ CERTIFIED PEDIATRIC NURSE PRACTITIONER Apr 08, 2025 15:39
--- NOTE | 2025-04-08 15:45 | DVHINCON2 ---
Date of service: Apr 08, 2025 Family History: Cerebrovascular accident (CVA) G8 MOTHER FH: CABG (coronary artery bypass surgery) G8 FATHER FH: liver disease G8 FATHER Hepatitis C G8 FATHER Allergies: Coded Allergies: NO KNOWN ALLERGIES (Unverified , 06/12/21) Home Meds Active Scripts Metronidazole (Flagyl) 500 Mg Tab, 500 MG PO TID for 42 Days, #126 TAB Prov:MARITZA FARRAR MD 03/04/25 Hydrocodone-Acetaminophen (Hydrocodone Bitartrate/AC 5-325 mg) 1 Tab Tab, 1 TAB PO BID PRN, #40 TAB Prov:ADARSH WILLIS MD 03/04/25 Rifampin (Rifampin) 300 Mg Cap, 300 MG PO BID, #90 CAP Prov:ADARSH WILLIS MD 03/04/25 Ciprofloxacin Hcl (Cipro) 500 Mg Tab, 1 TAB PO BID, #90 TAB Prov:ADARSH WILLIS MD 03/04/25 Doxycycline (Monohydrate) (Doxycycline) 100 Mg Cap, 100 MG PO BIDAC, #90 CAP Prov:ADARSH WILLIS MD 03/04/25 Reported Medications Tamsulosin Hcl (Tamsulosin Hcl) 0.4 Mg Cap, 0.4 MG PO QPM for 30 Days, MG 02/24/25 Amlodipine Besylate (Amlodipine Besylate) 5 Mg Tab, 1 TAB PO DAILY 02/24/25 Furosemide (Furosemide) 40 Mg Tab, 1 TAB PO DAILY 02/24/25 Aspirin (Aspirin Adult Low Dose) 81 Mg Tab, 1 TAB PO DAILY 02/24/25 Glipizide (Glipizide Er) 2.5 Mg Tab, TAB PO 02/24/25 Carvedilol (Carvedilol) 12.5 Mg Tab, TAB PO 02/24/25 Calcium Carbonate-Cholecalcife (Calcium 500-10 mg-Mcg) 1 Chw Chw, 1 TAB PO BID 02/24/25 Atorvastatin Calcium (ATORVASTATIN CALCIUM) 10 Mg Tab, 10 MG PO DAILY, TAB 06/13/21 Glipizide (Glipizide) 10 Mg Tab, 10 MG PO, TAB 06/13/21 Metformin HCl (Metformin Hydrochloride) 500 Mg/5 Ml Gwendolyn, 500 MG PO, ML 06/13/21 Vital Signs Vital Signs Date Time Temp Pulse Resp B/P (MAP) Pulse Ox O2 Delivery O2 Flow Rate FiO2 04/08/25 12:48 98.5 77 18 161/72 (101) 96 98.5 04/08/25 08:00 Room Air* 0 21 Labs/Diagnostic Data Labs Test 04/08/25 12:08 04/08/25 05:00 04/04/25 23:40 04/04/25 22:56 Range/Units POC Glucose 124 H 70-106 mg/dl White Blood Count 5.7 # 4.4-10.8 10^3/uL Red Blood Count 2.40 L 4.5-5.90 10^6/uL Hemoglobin 8.1 L 13.5-17.5 g/dL Hematocrit 23.0 L 41.0-53.0 % Mean Corpuscular Volume 95.6 80.0-100.0 fL Mean Corpuscular Hemoglobin 33.8 H 28.0-32.0 pg Mean Corpuscular Hemoglobin Concent 35.3 32.0-36.0 g/dL Red Cell Distribution Width 16.7 H 11.8-14.3 % Platelet Count 241 140-450 10^3/uL Mean Platelet Volume 7.4 6.9-10.8 fL Neutrophils (%) (Auto) 72.4 37.0-80.0 % Lymphocytes (%) (Auto) 10.6 10.0-50.0 % Monocytes (%) (Auto) 11.1 0.0-12.0 % Eosinophils (%) (Auto) 5.1 0.0-7.0 % Basophils (%) (Auto) 0.8 0.0-2.0 % Neutrophils # (Auto) 4.1 1.6-8.6 10 ^3/uL Lymphocytes # (Auto) 0.6 0.4-5.4 10 ^3/uL Monocytes # (Auto) 0.6 0-1.3 10 ^3/uL Eosinophils # (Auto) 0.3 0-0.8 10 ^3/uL Basophils # (Auto) 0 0-0.2 10 ^3/uL Nucleated Red Blood Cells 0.0 % Sodium Level 140 136-145 mmol/L Potassium Level 3.9 3.5-5.1 mmol/L Chloride Level 104 98-107 mmol/L Carbon Dioxide Level 23 20-31 mmol/L Anion Gap 13 5-15 Blood Urea Nitrogen 70 H 9-23 mg/dL Creatinine 3.36 H 0.700-1.30 mg/dL Glomerular Filtration Rate Calc 18 >90 mL/min BUN/Creatinine Ratio 20.8 H 10.0-20.0 Serum Glucose 104 74-106 mg/dL Calcium Level 8.6 L 8.7-10.4 mg/dL Urine Color Yellow Yellow Urine Clarity Turbid H Clear Urine pH 5.5 5.0-9.0 Urine Specific [place] 1.013 1.001-1.035 Urine Protein 1+ H Negative Urine Ketones Negative Negative Urine Blood Negative Negative /uL Urine Nitrite Negative Negative Urine Bilirubin Negative Negative Urine Urobilinogen Normal Negative mg/dL Urine Leukocyte Esterase 3+ Negative /uL Urine RBC 4 0 - 3 /hpf Urine Microscopic WBC 171 H 0-3 /HPF Urine Squamous Epithelial Cells Few <5 /hpf Urine Bacteria None seen None Seen /hpf Urine Yeast (Budding) Loaded None Seen /hpf Urine Glucose Normal Normal mg/dL Total Bilirubin 0.7 0.2-1.0 mg/dL Aspartate Amino Transferase (AST) 13 13-40 U/L Alanine Aminotransferase (ALT) < 9 7-40 U/L Alkaline Phosphatase 113 46-116 U/L Total Protein 7.6 5.7-8.2 g/dL Albumin 3.9 3.2-4.8 g/dL Lipase 23 12-53 U/L Microbiology Date/Time Source Procedure Growth Status 04/05/25 16:35 Nose MRSA Screen - Final Complete Assessment [id number] AFEBRILE VSS ABD SOFT NON TENDER CHOLELITHIASIS, CHOLEDOCHOLITHIASIS CONSIDER TRANSFER TO HIGHER LEVEL OF CARE IF SURGERY CONSIDERED AND FOR ERCP INDICATED Plan discussed with: Patient BEVERLEY BERGMAN MD Apr 08, 2025 15:45
--- NOTE | 2025-04-08 20:29 | DVHINCON2 ---
DATE OF CONSULTATION: 04/08/2025 HISTORY OF PRESENT ILLNESS: This patient is 74 years old, coming in with a history of abdominal pain, some nausea and vomiting. Now feeling better, no abdominal pain, no nausea or vomiting and he is tolerating a diet. He has no hematemesis or melena. No bleeding per rectum. PAST MEDICAL HISTORY: Hypertension, diabetes, CKD, peripheral artery disease, right foot osteomyelitis, chronic bilateral leg wounds, testicular cancer diagnosed in 1993, status post left orchiectomy. PHYSICAL EXAMINATION: VITAL SIGNS: Afebrile. Stable signs. HEENT: With no evidence of pallor, cyanosis or jaundice. NECK: Supple and nontender with no thyromegaly or lymphadenopathy. CHEST AND LUNGS: Clear. HEART: Within normal limits. ABDOMEN: Soft, nontender. No rebound. EXTREMITIES: Unremarkable. NEUROLOGIC: Unchanged. CLINICAL IMPRESSION: Cholelithiasis with CBD stone as per the CT scan. PLAN: The plan would be to consider transfer to a high level of care for ERCP in case surgery is considered. MD INDIA Mccormack/CAROLA TID: [id number] RECEIPT: [id number] cc: Rohini Ramachandran MD
[2025-04-09] VITALS (7 sets, daily range): BP systolic 133–165; BP diastolic 68–84; PULSE 74–89; RESP 16–17; TEMP 97.2–98.3; O2SAT 94–98
[2025-04-09 05:58] LABS: Hematocrit 26.1 % (41.0-53.0); Hemoglobin 9.0 g/dL (13.5-17.5); Mean Corpuscular Hemoglobin 33.3 pg (28.0-32.0); Mean Corpuscular Volume 96.6 fL (80.0-100.0); Nucleated Red Blood Cells % 0.0 %
[2025-04-09 06:03] LABS: Chloride 105 mmol/L (98-107); Potassium 3.8 mmol/L (3.5-5.1); Sodium 141 mmol/L (136-145)
[2025-04-09 06:04] LABS: Anion Gap 11 (5-15); Carbon Dioxide 25 mmol/L (20-31)
[2025-04-09 06:05] LABS: Calcium 8.9 mg/dL (8.7-10.4)
[2025-04-09 06:10] LABS: BUN/Creatinine Ratio 21.6 (10.0-20.0)
[2025-04-09 06:18] LABS: Blood Urea Nitrogen 66 mg/dL (9-23); Glucose 150 mg/dL (74-106)
[2025-04-09] MEDS: CLOPIDOGREL BISULFATE 75 MG TAB PO SCH (10:39)
--- NOTE | 2025-04-09 14:40 | DVHPN2 ---
Progress Note Date Seen: Apr 09, 2025 Medical Necessity Reason Pt with a Central, PICC or Fol: Yes The following are medically ne: Leung Catheter Subjective Patient reports: No new complaints, Feels better Objective vital signs Vital Sign Date Time Temp Pulse Resp B/P (MAP) Pulse Ox O2 Delivery O2 Flow Rate FiO2 04/09/25 13:00 98.3 74 16 154/74 (100) 98 98.3 04/09/25 08:00 Room Air* 0 21 Total Intake and Output 04/08/25 04/08/25 04/09/25 15:00 23:00 07:00 Intake Total 466 ml 650 ml Output Total 500 ml 600 ml Balance -34 ml 50 ml medications Current Medications Medications Dose Ordered Sig/Bandar Route Start Time Stop Time Status Last Admin Dose Admin Carvedilol 12.5 mg Q12HR PO 04/05/25 10:00 04/09/25 10:40 12.5 MG Aspirin 81 mg DAILY PO 04/05/25 10:00 04/09/25 10:39 81 MG Atorvastatin Calcium 10 mg HS PO 04/05/25 22:00 04/08/25 21:14 10 MG Diagnostic Test (Pha) 1 strip Q6HR 04/05/25 06:00 04/09/25 12:26 1 STRIP Insulin Human Regular Q6HR SC 04/05/25 06:00 04/09/25 12:26 2 UNITS Dextrose 50 ml UD PRN IV 04/05/25 05:00 Acetaminophen/ Hydrocodone Bitart 1 tab Q4HP PRN PO 04/05/25 05:00 Ondansetron HCl 4 mg Q4HP PRN IV 04/05/25 05:00 Acetaminophen 650 mg Q6HP PRN PO 04/05/25 05:00 Ceftriaxone Sodium 50 ml @ 100 mls/hr DAILY@09 IV 04/06/25 09:00 04/09/25 09:00 100 MLS/HR Enteral Nutritional Formula 240 ml TIDWM PO 04/07/25 12:00 04/09/25 12:25 240 ML Clopidogrel Bisulfate 75 mg DAILY PO 04/09/25 10:00 04/09/25 10:39 75 MG Cilostazol 100 mg BID PO 04/09/25 22:00 Examination Gen: Appears stated age, NAD Lungs: CTA, bilateral air entry Heart: RRR, normal S1 and S2 Abd: Soft, nontender, nondistended, normoactive bowel sounds Ext: No edema Neuro: A&O x4 laboratory and microbiology Laboratory Tests 04/09/25 05:10 Test 04/09/25 05:10 Range/Units Serum Glucose 150 H 74-106 mg/dL Microbiology Date/Time Source Procedure Growth Status 04/05/25 16:35 Nose MRSA Screen - Final Complete Labs and/or images reviewed: Labs reviewed by me Problem List/Assessment/Plan Problem List/Assessment/Plan 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 Ponce 2 weeks after D/C - We will continue to follow Plan discussed with: Patient Dietary Evaluation Review Comments: 1. Unable to offer higher protein diet d/t CKD 3b with GFR 14, 2. unable to offer Armen for wound healing d/t the same reasons. 3. Pt has very poor appetite d/t uremia 4. Encourage cold meals and high quality proteins. 5. Please consider dialysis treatment 6. F/U with nephrology Expected Outcomes/Goals: Declining appetite d/t uremia, MARIO SCHULTZ Apr 09, 2025 14:40
--- NOTE | 2025-04-09 16:31 | DVHPN2 ---
Subjective nausea is better today/denies any vomiting/d/w son also on gall stones /surgery opinion / both of them have decided med management no surgery/ is aware of triple vessel disease/he did talk to contracts intern again of options and has decided med management Reviewed: Care Plan, H&P, Labs, Medications, Previous Orders, Radiology Changes from previous H/P or p: No Changes Objective Vitals Vital Signs Date Time Temp Pulse Resp B/P (MAP) Pulse Ox O2 Delivery O2 Flow Rate FiO2 04/09/25 13:00 98.3 74 16 154/74 (100) 98 98.3 04/09/25 08:00 Room Air* 0 21 Intake/Output Intake and Output 04/09/25 07:00 Intake Total 1116 ml Output Total 1100 ml Balance 16 ml Intake Oral 1116 ml Output Urine Total 1100 ml General Appearance: Alert, Oriented X3, Cooperative, No acute distress HEENT: Atraumatic, PERRLA, EOMI, Mucous membr. moist/pink Lungs: Clear to auscultation, Normal air movement Cardiovascular: Regular rate, Normal S1, Normal S2, No murmurs, Gallops, Rubs Abdomen: Normal bowel sounds, Soft, No tenderness Extremities: Other (left leg necrotic escar in heel 4 cm and mid foot lateral border 3 cm//poor peripheral pulses) Neuro: Normal speech, Strength at 5/5 X4 ext, Sensation intact, Cranial nerves 3-12 NL Psych/Mental Status: Mental status NL Medications Current Medications Medications Dose Ordered Sig/Bandar Route Start Time Stop Time Status Last Admin Dose Admin Carvedilol 12.5 mg Q12HR PO 04/05/25 10:00 04/09/25 10:40 12.5 MG Aspirin 81 mg DAILY PO 04/05/25 10:00 04/09/25 10:39 81 MG Atorvastatin Calcium 10 mg HS PO 04/05/25 22:00 04/08/25 21:14 10 MG Diagnostic Test (Pha) 1 strip Q6HR 04/05/25 06:00 04/09/25 12:26 1 STRIP Insulin Human Regular Q6HR SC 04/05/25 06:00 04/09/25 12:26 2 UNITS Dextrose 50 ml UD PRN IV 04/05/25 05:00 Acetaminophen/ Hydrocodone Bitart 1 tab Q4HP PRN PO 04/05/25 05:00 Ondansetron HCl 4 mg Q4HP PRN IV 04/05/25 05:00 Acetaminophen 650 mg Q6HP PRN PO 04/05/25 05:00 Ceftriaxone Sodium 50 ml @ 100 mls/hr DAILY@09 IV 04/06/25 09:00 04/09/25 09:00 100 MLS/HR Enteral Nutritional Formula 240 ml TIDWM PO 04/07/25 12:00 04/09/25 12:25 240 ML Clopidogrel Bisulfate 75 mg DAILY PO 04/09/25 10:00 04/09/25 10:39 75 MG Cilostazol 100 mg BID PO 04/09/25 22:00 Laboratory Results Laboratory Tests 04/09/25 05:10 Chemistry Test 04/09/25 05:10 Calcium Level 8.9 mg/dL (8.7-10.4) Urinalysis Test 04/04/25 23:40 Urine Color Yellow (Yellow) Urine Clarity Turbid (Clear) H Urine pH 5.5 (5.0-9.0) Urine Specific [place] 1.013 (1.001-1.035) Urine Protein 1+ (Negative) H Urine Ketones Negative (Negative) Urine Blood Negative /uL (Negative) Urine Nitrite Negative (Negative) Urine Bilirubin Negative (Negative) Urine Urobilinogen Normal mg/dL (Negative) Urine Leukocyte Esterase 3+ /uL (Negative) Urine RBC 4 /hpf (0 - 3) Urine Microscopic WBC 171 /HPF (0-3) H Urine Squamous Epithelial Cells Few /hpf (<5) Urine Bacteria None seen /hpf (None Seen) Urine Yeast (Budding) Loaded /hpf (None Seen) Urine Glucose Normal mg/dL (Normal) Microbiology Microbiology Date/Time Source Procedure Growth Status 04/05/25 16:35 Nose MRSA Screen - Final Complete Labs and/or images reviewed: Labs reviewed by me, Image(s) reviewed by me Assessment/Plan Assessment/Plan nausea/cholelithiasis- nausea has resolved/ will watch diet/clinically no signs of cholangistis/choledocholithiasis//educated/per nephrology dd uremia from ckd/ cad- stable/declines cabg- med management pvd- given unresolved cardiac condition med management ckd4-f/by nephrology dm necrotic eschars legs- high risk for intevention given cad/med management- discussed with pt and son in detail educated on all his conditions/prognosis Plan discussed with: Patient, Other My Orders Orders - OMKAR NARANJO MD Procedure Category Date Status Time Foam Foot Cradle To ORDERS 04/09/25 Transmitted Left Foot 13:04 Bedside Dietary ORDERS 04/09/25 Transmitted Consult 13:04 Cilostazol (Pletal) PHA 04/09/25 In Process 22:00 Date of Service: Apr 09, 2025 Billing Provider: OMKAR NARANJO MD Common Visit Codes: [id number] INP/OBS CARE(MOD) OMKAR NARANJO MD Apr 09, 2025 16:31
[2025-04-09] MEDS: CILOSTAZOL 100 MG TAB PO SCH (21:14)
[2025-04-10] VITALS (7 sets, daily range): BP systolic 126–147; BP diastolic 70–77; PULSE 78–114; RESP 17–19; TEMP 97.2–98; O2SAT 95–98
[2025-04-10 06:22] LABS: Hematocrit 27.3 % (41.0-53.0); Hemoglobin 9.2 g/dL (13.5-17.5); Mean Corpuscular Hemoglobin 32.5 pg (28.0-32.0); Mean Corpuscular Volume 96.2 fL (80.0-100.0); Nucleated Red Blood Cells % 0.0 %
[2025-04-10 06:38] LABS: Alanine Aminotransferase 11 U/L (7-40); Albumin 3.5 g/dL (3.2-4.8); Anion Gap 11 (5-15); BUN/Creatinine Ratio 21.1 (10.0-20.0); Calcium 8.8 mg/dL (8.7-10.4); Carbon Dioxide 25 mmol/L (20-31); Chloride 104 mmol/L (98-107); Potassium 3.7 mmol/L (3.5-5.1); Sodium 140 mmol/L (136-145); Total Protein 6.8 g/dL (5.7-8.2)
[2025-04-10 06:53] LABS: Alkaline Phosphatase 131 U/L (46-116); Bilirubin, Total 0.2 mg/dL (0.2-1.0); Blood Urea Nitrogen 60 mg/dL (9-23); Glucose 148 mg/dL (74-106)
--- NOTE | 2025-04-10 09:53 | DVHINCON2 ---
Date of service: Apr 10, 2025 Referring Physician Rupali Reason for Consultation Choledocholithiasis History of Present Illness Patient is a 74-year-old male with diabetes, hypertension, hyperlipidemia, chronic kidney disease, history of osteomyelitis, history of testicular cancer status post orchiectomy, history of coronary artery disease was admitted with findings consistent with cholelithiasis and choledocholithiasis. Patient refuses workup for surgical cardiac intervention in wants to continue with the medical management despite being moderate to high r risk for any surgeries. Patient denies any abdominal pain, nausea, vomiting, chest pain, or shortness for breath. GI consultation was obtained for evaluation given the findings of choledocholithiasis on CT scan with no evidence of obstruction and no significantly elevated liver enzymes other than alkaline phosphatase. Past Medical History As above Past Surgical History As above History of bilateral cataract surgery Family History: Cerebrovascular accident (CVA) G8 MOTHER FH: CABG (coronary artery bypass surgery) G8 FATHER FH: liver disease G8 FATHER Hepatitis C G8 FATHER Allergies: Coded Allergies: NO KNOWN ALLERGIES (Unverified , 06/12/21) Home Meds Active Scripts Metronidazole (Flagyl) 500 Mg Tab, 500 MG PO TID for 42 Days, #126 TAB Prov:MARITZA FARRAR MD 03/04/25 Hydrocodone-Acetaminophen (Hydrocodone Bitartrate/AC 5-325 mg) 1 Tab Tab, 1 TAB PO BID PRN, #40 TAB Prov:ADARSH WILLIS MD 03/04/25 Rifampin (Rifampin) 300 Mg Cap, 300 MG PO BID, #90 CAP Prov:ADARSH WILLIS MD 03/04/25 Ciprofloxacin Hcl (Cipro) 500 Mg Tab, 1 TAB PO BID, #90 TAB Prov:ADARSH WILLIS MD 03/04/25 Doxycycline (Monohydrate) (Doxycycline) 100 Mg Cap, 100 MG PO BIDAC, #90 CAP Prov:ADARSH WILLIS MD 03/04/25 Reported Medications Tamsulosin Hcl (Tamsulosin Hcl) 0.4 Mg Cap, 0.4 MG PO QPM for 30 Days, MG 02/24/25 Amlodipine Besylate (Amlodipine Besylate) 5 Mg Tab, 1 TAB PO DAILY 02/24/25 Furosemide (Furosemide) 40 Mg Tab, 1 TAB PO DAILY 02/24/25 Aspirin (Aspirin Adult Low Dose) 81 Mg Tab, 1 TAB PO DAILY 02/24/25 Glipizide (Glipizide Er) 2.5 Mg Tab, TAB PO 02/24/25 Carvedilol (Carvedilol) 12.5 Mg Tab, TAB PO 02/24/25 Calcium Carbonate-Cholecalcife (Calcium 500-10 mg-Mcg) 1 Chw Chw, 1 TAB PO BID 02/24/25 Atorvastatin Calcium (ATORVASTATIN CALCIUM) 10 Mg Tab, 10 MG PO DAILY, TAB 06/13/21 Glipizide (Glipizide) 10 Mg Tab, 10 MG PO, TAB 06/13/21 Metformin HCl (Metformin Hydrochloride) 500 Mg/5 Ml Gwendolyn, 500 MG PO, ML 06/13/21 Current Medications Current Medications Medications (Trade) Dose Ordered Sig/Bandar Route PRN Reason Start Time Stop Time Status Last Admin Clopidogrel Bisulfate (Plavix) 75 mg DAILY PO 04/09/25 10:00 04/09/25 10:39 Cilostazol (Pletal) 100 mg BID PO 04/09/25 22:00 04/09/25 21:14 Review of Systems Twelve point review of systems negative other than HPI Vital Signs Vital Signs Date Time Temp Pulse Resp B/P (MAP) Pulse Ox O2 Delivery O2 Flow Rate FiO2 04/10/25 08:38 98.0 97 18 143/70 (94) 95 98.0 04/09/25 20:00 Room Air* 0 21 Physical Exam General: Well-developed well-nourished HEENT: NC/AT EOMI PERRLA O/P clear, no JVD or cervical lymphadenopathy, no scleral icterus Heart: Regular rate and rhythm, no murmurs rubs or gallops Lungs: Clear to auscultation bilaterally, no wheezes rales or rhonchi Abdomen: Soft, nontender, nondistended, no organomegaly, normoactive bowel sounds Extremity: No clubbing cyanosis or edema, no rashes or bruises Neuro: Cranial nerves 2-12 grossly intact, moves all four extremities, no asterixis Labs/Diagnostic Data Labs Test 04/10/25 05:48 04/10/25 05:08 04/04/25 23:40 04/04/25 22:56 Range/Units White Blood Count 7.3 4.4-10.8 10^3/uL Red Blood Count 2.84 L 4.5-5.90 10^6/uL Hemoglobin 9.2 L 13.5-17.5 g/dL Hematocrit 27.3 L 41.0-53.0 % Mean Corpuscular Volume 96.2 80.0-100.0 fL Mean Corpuscular Hemoglobin 32.5 H 28.0-32.0 pg Mean Corpuscular Hemoglobin Concent 33.7 32.0-36.0 g/dL Red Cell Distribution Width 17.1 H 11.8-14.3 % Platelet Count 265 140-450 10^3/uL Mean Platelet Volume 7.2 6.9-10.8 fL Neutrophils (%) (Auto) 71.0 37.0-80.0 % Lymphocytes (%) (Auto) 10.6 10.0-50.0 % Monocytes (%) (Auto) 10.4 0.0-12.0 % Eosinophils (%) (Auto) 7.3 H 0.0-7.0 % Basophils (%) (Auto) 0.7 0.0-2.0 % Neutrophils # (Auto) 5.2 1.6-8.6 10 ^3/uL Lymphocytes # (Auto) 0.8 0.4-5.4 10 ^3/uL Monocytes # (Auto) 0.8 0-1.3 10 ^3/uL Eosinophils # (Auto) 0.5 0-0.8 10 ^3/uL Basophils # (Auto) 0.1 0-0.2 10 ^3/uL Nucleated Red Blood Cells 0.0 % Sodium Level 140 136-145 mmol/L Potassium Level 3.7 3.5-5.1 mmol/L Chloride Level 104 98-107 mmol/L Carbon Dioxide Level 25 20-31 mmol/L Anion Gap 11 5-15 Blood Urea Nitrogen 60 H 9-23 mg/dL Creatinine 2.85 H 0.700-1.30 mg/dL Glomerular Filtration Rate Calc 22 >90 mL/min BUN/Creatinine Ratio 21.1 H 10.0-20.0 Serum Glucose 148 H 74-106 mg/dL Calcium Level 8.8 8.7-10.4 mg/dL Total Bilirubin 0.2 0.2-1.0 mg/dL Aspartate Amino Transferase (AST) 17 13-40 U/L Alanine Aminotransferase (ALT) 11 7-40 U/L Alkaline Phosphatase 131 H 46-116 U/L Total Protein 6.8 5.7-8.2 g/dL Albumin 3.5 3.2-4.8 g/dL POC Glucose 155 H 70-106 mg/dl Urine Color Yellow Yellow Urine Clarity Turbid H Clear Urine pH 5.5 5.0-9.0 Urine Specific [place] 1.013 1.001-1.035 Urine Protein 1+ H Negative Urine Ketones Negative Negative Urine Blood Negative Negative /uL Urine Nitrite Negative Negative Urine Bilirubin Negative Negative Urine Urobilinogen Normal Negative mg/dL Urine Leukocyte Esterase 3+ Negative /uL Urine RBC 4 0 - 3 /hpf Urine Microscopic WBC 171 H 0-3 /HPF Urine Squamous Epithelial Cells Few <5 /hpf Urine Bacteria None seen None Seen /hpf Urine Yeast (Budding) Loaded None Seen /hpf Urine Glucose Normal Normal mg/dL Lipase 23 12-53 U/L Microbiology Date/Time Source Procedure Growth Status 04/05/25 16:35 Nose MRSA Screen - Final Complete Impression: 1. Cholelithiasis and choledocholithiasis without CT evidence for acute cholecystitis. 2. Incidental findings as detailed. Assessment 1. Cholelithiasis 2. Choledocholithiasis 3. Significant three-vessel coronary artery disease, requiring surgical intervention however patient prefers medical management Given patient's cardiac comorbidities he would not be a good candidate for surgery or ERCP at this time given risk of complications. Problems(with codes): (1) Cyclical vomiting (2) Hypokalemia (3) Urinary retention (4) Generalized weakness (5) Gravely disabled Plan/Recommendation 1. Supportive care and medical management of coronary artery disease 2. Patient is pain-free and has no evidence of biliary obstruction, hold off on ERCP at this time 3. Outpatient follow up with GI 4. Signing off please reconsult as needed Plan discussed with: Patient EDVIN NICHOLS MD Apr 10, 2025 09:53
--- NOTE | 2025-04-10 14:52 | DVHPN2 ---
Progress Note Date Seen: Apr 10, 2025 Medical Necessity Reason Pt with a Central, PICC or Fol: Yes The following are medically ne: Leung Catheter Subjective Patient reports: No new complaints, Feels better Objective vital signs Vital Sign Date Time Temp Pulse Resp B/P (MAP) Pulse Ox O2 Delivery O2 Flow Rate FiO2 04/10/25 12:54 97.9 114 19 126/77 (93) 98 97.9 04/10/25 08:00 Room Air* 0 21 Total Intake and Output 04/09/25 04/09/25 04/10/25 15:00 23:00 07:00 Intake Total 240 ml 240 ml 350 ml Output Total 700 ml 200 ml Balance 240 ml -460 ml 150 ml medications Current Medications Medications Dose Ordered Sig/Bandar Route Start Time Stop Time Status Last Admin Dose Admin Carvedilol 12.5 mg Q12HR PO 04/05/25 10:00 04/10/25 09:45 12.5 MG Aspirin 81 mg DAILY PO 04/05/25 10:00 04/10/25 09:44 81 MG Atorvastatin Calcium 10 mg HS PO 04/05/25 22:00 04/09/25 21:14 10 MG Diagnostic Test (Pha) 1 strip Q6HR 04/05/25 06:00 04/10/25 12:00 1 STRIP Insulin Human Regular Q6HR SC 04/05/25 06:00 04/10/25 12:00 4 UNITS Dextrose 50 ml UD PRN IV 04/05/25 05:00 Acetaminophen/ Hydrocodone Bitart 1 tab Q4HP PRN PO 04/05/25 05:00 Ondansetron HCl 4 mg Q4HP PRN IV 04/05/25 05:00 Acetaminophen 650 mg Q6HP PRN PO 04/05/25 05:00 Ceftriaxone Sodium 50 ml @ 100 mls/hr DAILY@09 IV 04/06/25 09:00 04/10/25 09:44 100 MLS/HR Enteral Nutritional Formula 240 ml TIDWM PO 04/07/25 12:00 04/10/25 12:00 240 ML Clopidogrel Bisulfate 75 mg DAILY PO 04/09/25 10:00 04/10/25 09:44 75 MG Cilostazol 100 mg BID PO 04/09/25 22:00 04/10/25 09:45 100 MG Examination Gen: Appears stated age, NAD Lungs: CTA, bilateral air entry Heart: RRR, normal S1 and S2 Abd: Soft, nontender, nondistended, normoactive bowel sounds Ext: No edema Neuro: A&O x4 laboratory and microbiology Laboratory Tests 04/10/25 05:48 Test 04/10/25 05:48 Range/Units Serum Glucose 148 H 74-106 mg/dL Microbiology Date/Time Source Procedure Growth Status 04/05/25 16:35 Nose MRSA Screen - Final Complete Labs and/or images reviewed: Labs reviewed by me Problem List/Assessment/Plan Problem List/Assessment/Plan 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 Ponce 2 weeks after D/C - We will continue to follow Plan discussed with: Patient Dietary Evaluation Review Comments: 1. Unable to offer higher protein diet d/t CKD 3b with GFR 14, 2. unable to offer Armen for wound healing d/t the same reasons. 3. Pt has very poor appetite d/t uremia 4. Encourage cold meals and high quality proteins. 5. Please consider dialysis treatment 6. F/U with nephrology Expected Outcomes/Goals: Declining appetite d/t ureMARION vanegas MARTHA FNP Apr 10, 2025 14:52
[2025-04-11] VITALS (7 sets, daily range): BP systolic 120–169; BP diastolic 68–80; PULSE 66–106; RESP 16–19; TEMP 97.4–98.4; O2SAT 92–98
[2025-04-11 06:50] LABS: Chloride 106 mmol/L (98-107); Potassium 3.8 mmol/L (3.5-5.1); Sodium 142 mmol/L (136-145)
[2025-04-11 06:51] LABS: Anion Gap 12 (5-15); Calcium 8.9 mg/dL (8.7-10.4); Carbon Dioxide 24 mmol/L (20-31)
[2025-04-11 06:56] LABS: BUN/Creatinine Ratio 20.0 (10.0-20.0)
[2025-04-11 06:57] LABS: Blood Urea Nitrogen 52 mg/dL (9-23); Glucose 140 mg/dL (74-106)
--- NOTE | 2025-04-11 12:12 | DVHDS2 ---
Discharge Summary Date of Admission Apr 05, 2025 at 04:47 Date of Discharge: Apr 11, 2025 Admitting Diagnosis Acute on chronic renal failure Labs/Diagnostic Data: Laboratory Results Test 04/11/25 05:41 04/11/25 05:09 04/10/25 05:48 04/04/25 23:40 Sodium Level 142 mmol/L (136-145) Potassium Level 3.8 mmol/L (3.5-5.1) Chloride Level 106 mmol/L (98-107) Carbon Dioxide Level 24 mmol/L (20-31) Anion Gap 12 (5-15) Blood Urea Nitrogen 52 mg/dL (9-23) Creatinine 2.60 mg/dL (0.700-1.30) Glomerular Filtration Rate Calc 25 mL/min (>90) BUN/Creatinine Ratio 20.0 (10.0-20.0) Serum Glucose 140 mg/dL (74-106) Calcium Level 8.9 mg/dL (8.7-10.4) POC Glucose 145 mg/dl (70-106) White Blood Count 7.3 10^3/uL (4.4-10.8) Red Blood Count 2.84 10^6/uL (4.5-5.90) Hemoglobin 9.2 g/dL (13.5-17.5) Hematocrit 27.3 % (41.0-53.0) Mean Corpuscular Volume 96.2 fL (80.0-100.0) Mean Corpuscular Hemoglobin 32.5 pg (28.0-32.0) Mean Corpuscular Hemoglobin Concent 33.7 g/dL (32.0-36.0) Red Cell Distribution Width 17.1 % (11.8-14.3) Platelet Count 265 10^3/uL (140-450) Mean Platelet Volume 7.2 fL (6.9-10.8) Neutrophils (%) (Auto) 71.0 % (37.0-80.0) Lymphocytes (%) (Auto) 10.6 % (10.0-50.0) Monocytes (%) (Auto) 10.4 % (0.0-12.0) Eosinophils (%) (Auto) 7.3 % (0.0-7.0) Basophils (%) (Auto) 0.7 % (0.0-2.0) Neutrophils # (Auto) 5.2 10 ^3/uL (1.6-8.6) Lymphocytes # (Auto) 0.8 10 ^3/uL (0.4-5.4) Monocytes # (Auto) 0.8 10 ^3/uL (0-1.3) Eosinophils # (Auto) 0.5 10 ^3/uL (0-0.8) Basophils # (Auto) 0.1 10 ^3/uL (0-0.2) Nucleated Red Blood Cells 0.0 % Total Bilirubin 0.2 mg/dL (0.2-1.0) Aspartate Amino Transferase (AST) 17 U/L (13-40) Alanine Aminotransferase (ALT) 11 U/L (7-40) Alkaline Phosphatase 131 U/L (46-116) Total Protein 6.8 g/dL (5.7-8.2) Albumin 3.5 g/dL (3.2-4.8) Urine Color Yellow (Yellow) Urine Clarity Turbid (Clear) Urine pH 5.5 (5.0-9.0) Urine Specific [place] 1.013 (1.001-1.035) Urine Protein 1+ (Negative) Urine Ketones Negative (Negative) Urine Blood Negative /uL (Negative) Urine Nitrite Negative (Negative) Urine Bilirubin Negative (Negative) Urine Urobilinogen Normal mg/dL (Negative) Urine Leukocyte Esterase 3+ /uL (Negative) Urine RBC 4 /hpf (0 - 3) Urine Microscopic WBC 171 /HPF (0-3) Urine Squamous Epithelial Cells Few /hpf (<5) Urine Bacteria None seen /hpf (None Seen) Urine Yeast (Budding) Loaded /hpf (None Seen) Urine Glucose Normal mg/dL (Normal) Test 04/04/25 22:56 Lipase 23 U/L (12-53) Other Laboratory Tests 04/11/25 05:41 04/10/25 05:48 Brief Hx & Hospital Course: History of Present Illness 74-year-old male presents for evaluation of generalized weakness. Patient reports recently being discharged after being treated for a foot infection. He reports having multiple episodes of nausea with vomiting and generalized weakness. Denies abdominal pain. No fever or chills. No cardiac or respiratory symptoms Course of hospitalization: Patient had CT scan of the abdomen and pelvis which revealed choledocholithiasis. GI consultation was obtained. Given patient's history of multivessel coronary artery disease requiring intervention, currently being treated with medical management, conservative treatment has been chosen at this time. Patient's diet has been advanced. Patient denies having any abdominal pain. Total bilirubin was not elevated. Long discussion was made with the patient regarding plan of care. At this time he wishes to go to [facility] facility for further wound care to heels as well as physical therapy. Physical examination General: Alert and Oriented x3. No acute distress. Well-nourished. Eyes: EOMI. Anicteric. HENT: Moist mucous membranes. Lungs: Clear to auscultation bilaterally. No accessory muscle use. Cardiovascular: Regular rate and rhythm. No murmur. No JVD. Abdomen: Soft, non-tender and non-distended. No palpable masses. Extremities: No edema. Non-tender. Bilateral heel decubitus ulcers Skin: No rashes or lesions. Warm. Neurologic: No focal neurological deficits. CN II-XII grossly intact, but not individually tested. Psychiatric: Cooperative. Appropriate mood and affect. Total time spent with patient discussing and formulating plan of care: 35 minutes. This medical document was created using an electronic medical record system with [employer] dictation system. Although this document has been carefully reviewed, there may still be some phonetic and typographical errors. These areas are purely typographical due to imperfections of the software programs, and do not reflect any compromise in the patient's medical care. Consults/Reason for consult Gastroenterology: Choledocholithiasis Condition at Discharge: Poor Final Diagnosis/Problems List nausea- due to biliary colic vs uremia- resolved cholelithiasi ckd4 triple vessel cad- declines cabg pvd- given unresolved triple vessel cad- high risk for intervention/also declines any surgery necrotic eschar in lt heel/foot- 3-4 cm chronic-foam boot provided rt heel 1 cm superficial- chronic- advised avoid pressure on heel- use heel pad/or foam boot Discharge Disposition: Longterm Facility Discharge Instruct/Medications Diet: Consistent carbohydrate, Renal Diet comment: low salt diet low potassium diet 1600 ada diet regular meals/avoid fatty foods and deep fried foods adequate fluids Activity: Light activity Activity comment: no weight bearing - use whhel chair- has wheel chair at home up in chair in day time- use foam boot 24 hrs/day untill wound healed you may shower Follow Up/Referral: pcp in 7-10 days 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-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 Medications: Refer to Medication Reconciliations form Scheduled Amlodipine Besylate (Amlodipine Besylate), 1 TAB PO DAILY, (Reported) Aspirin (Aspirin Adult Low Dose), 1 TAB PO DAILY, (Reported) Atorvastatin Calcium (Atorvastatin Calcium), 10 MG PO DAILY, (Reported) Calcium Carbonate-Cholecalcife (Calcium 500-10 mg-Mcg), 1 TAB PO BID, (Reported) Ciprofloxacin Hcl (Cipro), 1 TAB PO BID Doxycycline (Monohydrate) (Doxycycline), 100 MG PO BIDAC Furosemide (Furosemide), 1 TAB PO DAILY, (Reported) Metronidazole (Flagyl), 500 MG PO TID Rifampin (Rifampin), 300 MG PO BID Tamsulosin Hcl (Tamsulosin Hcl), 0.4 MG PO QPM, (Reported) Scheduled PRN Hydrocodone-Acetaminophen (Hydrocodone Bitartrate/AC 5-325 mg), 1 TAB PO BID PRN Miscellaneous Medications Carvedilol (Carvedilol), TAB PO, (Reported) Glipizide (Glipizide), 10 MG PO, (Reported) Glipizide (Glipizide Er), TAB PO, (Reported) Metformin HCl (Metformin Hydrochloride), 500 MG PO, (Reported) 36 Discharge Statement: "Patient was advised to return to the ER or call 911 if any headaches, dizziness, shortness of breath, chest pain, abdominal pain, bleeding, fevers, or worsening of medical condition. Patient was counseled about treatment plan, medications, possible side effects, patientverbalized understanding. All questions were answered to the best of my ability. This discharge took greater then 30 minutes in planning, reviewing documentation, counseling the patient, and discussing with other team members." ASSESSMENT ASSESSMENT Assessment nausea- due to biliary colic vs uremia- resolved cholelithiasi ckd4 triple vessel cad- declines cabg pvd- given unresolved triple vessel cad- high risk for intervention/also declines any surgery necrotic eschar in lt heel/foot- 3-4 cm chronic-foam boot provided rt heel 1 cm superficial- chronic- advised avoid pressure on heel- use heel pad/or foam boot Date of Service: Apr 11, 2025 Billing Provider: LUIS CARDENAS NP Common Visit Codes: [id number] INP/OBS CARE(HIGH) LUIS CARDENAS FISHERIES TECHNICIAN Apr 11, 2025 12:12
[2025-04-11] MEDS: CEPHALEXIN 250 MG CAP PO SCH (17:39)
[2025-04-12] VITALS (7 sets, daily range): BP systolic 112–164; BP diastolic 65–78; PULSE 82–104; RESP 16–19; TEMP 36.4; O2SAT 94–99
--- NOTE | 2025-04-12 07:32 | ECG ---
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
--- NOTE | 2025-04-12 11:48 | DVHPN2 ---
Subjective Patient denies any symptoms Reviewed: Care Plan, H&P, Labs, Medications, Previous Orders, Radiology Changes from previous H/P or p: No Changes General: Per HPI Objective Vitals Vital Signs Date Time Temp Pulse Resp B/P (MAP) Pulse Ox O2 Delivery O2 Flow Rate FiO2 04/12/25 10:10 104 140/74 04/12/25 08:51 97.9 17 98 97.9 04/11/25 20:00 Room Air* 0 21 Intake/Output Intake and Output 04/12/25 07:00 Intake Total 1160 ml Output Total 726 ml Balance 434 ml Intake Oral 1110 ml IV Total 50 ml Output Urine Total 725 ml Stool Total 1 ml # Bowel Movements 1 General Appearance: Alert, Oriented X3, Cooperative, No acute distress HEENT: Atraumatic, PERRLA, EOMI, Mucous membr. moist/pink Lungs: Clear to auscultation, Normal air movement Cardiovascular: Regular rate, Normal S1, Normal S2, No murmurs, Gallops, Rubs Abdomen: Normal bowel sounds, Soft, No tenderness Extremities: Other (left leg necrotic escar in heel 4 cm and mid foot lateral border 3 cm//poor peripheral pulses) Neuro: Normal speech, Strength at 5/5 X4 ext, Sensation intact, Cranial nerves 3-12 NL Psych/Mental Status: Mental status NL Medications Current Medications Medications Dose Ordered Sig/Bandar Route Start Time Stop Time Status Last Admin Dose Admin Carvedilol 12.5 mg Q12HR PO 04/05/25 10:00 04/12/25 10:10 12.5 MG Aspirin 81 mg DAILY PO 04/05/25 10:00 04/12/25 10:11 81 MG Atorvastatin Calcium 10 mg HS PO 04/05/25 22:00 04/11/25 22:24 10 MG Diagnostic Test (Pha) 1 strip Q6HR 04/05/25 06:00 04/12/25 05:30 1 STRIP Insulin Human Regular Q6HR SC 04/05/25 06:00 04/11/25 23:44 3 UNITS Dextrose 50 ml UD PRN IV 04/05/25 05:00 Acetaminophen/ Hydrocodone Bitart 1 tab Q4HP PRN PO 04/05/25 05:00 Ondansetron HCl 4 mg Q4HP PRN IV 04/05/25 05:00 Acetaminophen 650 mg Q6HP PRN PO 04/05/25 05:00 Enteral Nutritional Formula 240 ml TIDWM PO 04/07/25 12:00 04/12/25 08:00 240 ML Clopidogrel Bisulfate 75 mg DAILY PO 04/09/25 10:00 04/12/25 10:10 75 MG Cilostazol 100 mg BID PO 04/09/25 22:00 04/12/25 10:11 100 MG Cephalexin 500 mg Q6HR PO 04/11/25 18:00 04/12/25 05:34 500 MG Laboratory Results Laboratory Tests 04/10/25 05:48 04/11/25 05:41 Urinalysis Test 04/04/25 23:40 Urine Color Yellow (Yellow) Urine Clarity Turbid (Clear) H Urine pH 5.5 (5.0-9.0) Urine Specific [place] 1.013 (1.001-1.035) Urine Protein 1+ (Negative) H Urine Ketones Negative (Negative) Urine Blood Negative /uL (Negative) Urine Nitrite Negative (Negative) Urine Bilirubin Negative (Negative) Urine Urobilinogen Normal mg/dL (Negative) Urine Leukocyte Esterase 3+ /uL (Negative) Urine RBC 4 /hpf (0 - 3) Urine Microscopic WBC 171 /HPF (0-3) H Urine Squamous Epithelial Cells Few /hpf (<5) Urine Bacteria None seen /hpf (None Seen) Urine Yeast (Budding) Loaded /hpf (None Seen) Urine Glucose Normal mg/dL (Normal) Microbiology Microbiology Date/Time Source Procedure Growth Status 04/05/25 16:35 Nose MRSA Screen - Final Complete Labs and/or images reviewed: Labs reviewed by me, Image(s) reviewed by me Assessment/Plan Assessment/Plan Impression: -choledocholithiasis -coronary artery disease with multivessel disease, declining CABG -CKD stage IIIB/four -deconditioning -bilateral foot ulcers Plan: -patient tolerating oral intake. Conservative management per Gastroenterology regarding choledocholithiasis -continue dual antiplatelet therapy -physical therapy -social service consultation to transfer to [facility] for wound care and PT Total time spent with patient discussing and formulating plan of care: 35 minutes. This medical document was created using an electronic medical record system with [employer] dictation system. Although this document has been carefully reviewed, there may still be some phonetic and typographical errors. These areas are purely typographical due to imperfections of the software programs, and do not reflect any compromise in the patient's medical care. Plan discussed with: Patient, Other (RN) My Orders Orders - LUIS CARDENAS NP Procedure Category Date Status Time * General Internal Medicine Physician CONS 04/11/25 Transmitted Consult Cephalexin Capsule PHA 04/11/25 In Process (Keflex Capsule) 18:00 Discharge DISCHARGE 04/11/25 Transmitted 12:07 Date of Service: Apr 12, 2025 Billing Provider: LUIS CARDENAS NP Common Visit Codes: [id number] INP/OBS CARE(HIGH) LUIS CARDENAS NP Apr 12, 2025 11:48
== END 2025-04-12 18:40 | DRG 444 ==
LOC: EDUNIT# 22:26 → ER 22:26 → EDBD 22:26 → OVERFLOW 04-05 04:47 → CENTRAL 04-05 04:51
PROVIDERS: ADMIT Nurse Practitioner Acute Care; ATTEND Nurse Practitioner Acute Care
DX: K80.70 Calculus of gallbladder and bile duct without cholecystitis without obstruction (principal); N17.0 Acute kidney failure with tubular necrosis; L97.419 Non-pressure chronic ulcer of right heel and midfoot with unspecified severity; I50.30 Unspecified diastolic (congestive) heart failure; N18.4 Chronic kidney disease, stage 4 (severe); N39.0 Urinary tract infection, site not specified; I13.0 Hypertensive heart and chronic kidney disease with heart failure and stage 1 through stage 4 chronic kidney disease, or unspecified chronic kidney disease; M86.172 Other acute osteomyelitis, left ankle and foot; E11.69 Type 2 diabetes mellitus with other specified complication; I25.10 Atherosclerotic heart disease of native coronary artery without angina pectoris; E11.51 Type 2 diabetes mellitus with diabetic peripheral angiopathy without gangrene; E78.5 Hyperlipidemia, unspecified; E66.9 Obesity, unspecified; Z68.22 Body mass index [BMI] 22.0-22.9, adult; L97.529 Non-pressure chronic ulcer of other part of left foot with unspecified severity; E11.22 Type 2 diabetes mellitus with diabetic chronic kidney disease; E11.621 Type 2 diabetes mellitus with foot ulcer; N40.0 Benign prostatic hyperplasia without lower urinary tract symptoms; Z85.47 Personal history of malignant neoplasm of testis; Z82.3 Family history of stroke; Z90.79 Acquired absence of other genital organ(s); Z83.79 Family history of other diseases of the digestive system; Z79.82 Long term (current) use of aspirin; Z79.4 Long term (current) use of insulin
CPT/HCPCS: 36415; 71045; 74176; 76705; 80048; 80053; 81001; 82962; 83690; 85025; 87081; 93005; 96365; 97110; 97163; G0378; J1815

== ENCOUNTER 2025-04-20 16:52 | Inpatient (IN) | payer MEDICAID, OTHER ==
[~2025-04-20] VITALS: Ht 172.7 cm; Wt 73.0 kg
[~2025-04-20 16:52] MED LIST changes: -GLIP10TA9 PO; -GLIP2.5T9 PO
--- NOTE | 2025-04-20 17:23 | ED.PDOC ---
History of Present Illness HPI Comments This is a 74-year-old male with past medical history of hypertension, type 2 diabetes mellitus, peripheral artery disease, peripheral neuropathy presented to the ED with a chief complaint of generalized weakness, low energy and less appetite for few days prior to this visit. The patient stated that yesterday he prematurely discharged from [facility] because of the insurance issue. He has bilateral diabetic ulcer and status post amputation of the right toe. He denies chest pain, shortness of breath, dizziness, blurred vision, nausea, diaphoresis, abdominal pain, vomiting, dysuria or any changes in bowel habit. PCP: Dr. Decker Chief Complaint: General Weakness Time Seen by MD: 17:21 Primary Care Provider: LEON Allergies: Coded Allergies: NO KNOWN ALLERGIES (Unverified , 06/12/21) Home Meds Active Scripts Metronidazole (Flagyl) 500 Mg Tab, 500 MG PO TID for 42 Days, #126 TAB Prov:MARITZA FARRAR MD 03/04/25 Hydrocodone-Acetaminophen (Hydrocodone Bitartrate/AC 5-325 mg) 1 Tab Tab, 1 TAB PO BID PRN, #40 TAB Prov:ADARSH WILLIS MD 03/04/25 Rifampin (Rifampin) 300 Mg Cap, 300 MG PO BID, #90 CAP Prov:ADARSH WILLIS MD 03/04/25 Ciprofloxacin Hcl (Cipro) 500 Mg Tab, 1 TAB PO BID, #90 TAB Prov:ADARSH WILLIS MD 03/04/25 Doxycycline (Monohydrate) (Doxycycline) 100 Mg Cap, 100 MG PO BIDAC, #90 CAP Prov:ADARSH WILLIS MD 03/04/25 Reported Medications Hydrochlorothiazide (Hydrochlorothiazide) 25 Mg Tab, 50 MG PO DAILY for 14 Days, #14 04/11/25 Carvedilol (Carvedilol) 12.5 Mg Tab, 1 TAB PO BID for 14 Days, #28 04/11/25 Glipizide (Glipizide) 5 Mg Tab, 1 TAB PO BID for 14 Days, #04/11/25 Tamsulosin Hcl (Tamsulosin Hcl) 0.4 Mg Cap, 0.4 MG PO QPM for 30 Days, MG 02/24/25 Amlodipine Besylate (Amlodipine Besylate) 5 Mg Tab, 1 TAB PO DAILY 02/24/25 Furosemide (Furosemide) 40 Mg Tab, 1 TAB PO DAILY 02/24/25 Aspirin (Aspirin Adult Low Dose) 81 Mg Tab, 1 TAB PO DAILY 02/24/25 Calcium Carbonate-Cholecalcife (Calcium 500-10 mg-Mcg) 1 Chw Chw, 1 TAB PO BID 02/24/25 Atorvastatin Calcium (ATORVASTATIN CALCIUM) 10 Mg Tab, 10 MG PO DAILY, TAB 06/13/21 Metformin HCl (Metformin Hydrochloride) 500 Mg/5 Ml Gwendolyn, 500 MG PO, ML 06/13/21 Information Source: Patient Mode of Arrival: EMS Severity: Moderate Timing: Days Duration: Since onset Prehospital treatment: None Past Medical History PAST MEDICAL HISTORY: CAD, Cancer, CKF, DM, High Lipids, HTN, PAD Surgical History: Tonsillectomy Family History Family History: Reviewed,noncontributory to illness Social History Smoker: Non-Smoker Alcohol: Rarely Drugs: Denies Drug Use Lives In: Home Constitutional: reports: fatigue, malaise, weakness; denies: chills, diaphoresis, fever, sweats, others EENTM: denies: blurred vision, double vision, ear bleeding, ear discharge, ear drainage, ear pain, ear ringing, eye pain, eye redness, hearing loss, mouth pain, mouth swelling, nasal discharge, nose bleeding, nose congestion, nose pain, photophobia, tearing, throat pain, throat swelling, voice changes, others Respiratory: denies: cough, hemoptysis, orthopnea, SOB at rest, shortness of breath, SOB with excertion, stridor, wheezing, others Cardiovascular: denies: chest pain, dizzy spells, diaphoresis, Dyspnea on exertion, edema, irregular heart beat, left arm pain, lightheadedness, palpitations, PND, syncope, others Gastrointestinal: denies: abdomen distended, abdominal pain, blood streaked bowels, constipated, diarrhea, dysphagia, difficulty swallowing, hematemesis, melena, nausea, poor appetite, poor fluid intake, rectal bleeding, rectal pain, vomiting, others Genitourinary: denies: burning, dysuria, flank pain, frequency, hematuria, incontinence, penile discharge, penile sore, pain, testicle pain, testicle swelling, urgency, others Neurological: denies: dizziness, fainting, headache, left sided numbness, left sided weakness, numbness, paresthesia, pre-existing deficit, right sided numbness, right sided weakness, seizure, speech problems, tingling, tremors, weakness, others Integumetry: reports: wounds, others (Bilateral wound in both legs) Allergic/Immunocompromised: denies: Difficulty Healing, Frequent Infections, Hives, Itching, others Hematologic/Lymphatic: denies: anemia, blood clots, easy bleeding, easy bruising, swollen glands, others Endocrine: denies: excessive hunger, excessive sweating, excessive thirst, excessive urination, flushing, intolerance to cold, intolerance to heat, unexplained weight gain, unexplained weight loss, others Psychiatric: denies: anxiety, bipolar disorder, depression, hopeless, panic disorder, schizophrenia, sleepless, suicidal, others Physical Exam General Appearance: Mild Distress HEENT: Normal ENT Inspection, Pharynx Normal, TMs Normal Neck: Carotid Bruit Respiratory: Chest Non-Tender, Lungs Clear, No Accessory Muscle Use, No Respiratory Distress, Normal Breath Sounds Cardiovascular: Irregular, No Edema, No JVD, Tachycardia Breast Exam: Deferred Gastrointestinal: No Organomegaly, Non Tender, No Pulsatile Mass, Normal Bowel Sounds, Soft Genitalia: Deferred Pelvic: Deferred Rectal: Deferred Extremities: No calf tenderness, Other (Bilateral diabetic ulcer in both feet, status post amputation of right toe) Neurologic: Other (Wheelchair-bound) Cerebellar Function: NOT DONE Reflexes: NOT DONE Skin: NOT DONE Peripheral Pulses: 2+ carotid (R), 2+ carotid (L); 1+ femoral (R), 1+ femoral (L), 1+ dorsalis pedis (R), 1+ dorsalis pedis (L); 2+ Radial (R), 2+ Radial (L), 2+ Brachial (R), 2+ Brachial (L) Lymphatic: NOT DONE Was a procedure done? Was a procedure done?: No EKG EKG : Comments EKG revealed irregular rhythm, rate 110, wide QRS complex, right axis deviation and ST elevation in lead 2 and 3 Differential Dx Considerations may include: Generalized weakness, AD on CKD, diabetic foot ulcer X-Ray, Labs, Meds, VS Vital Signs Date Time Temp Pulse Resp B/P (MAP) Pulse Ox O2 Delivery O2 Flow Rate FiO2 04/20/25 18:03 115 04/20/25 16:57 110 04/20/25 16:54 98.2 107 17 135/72 97 98.2 Lab Test 04/20/25 18:31 Range/Units White Blood Count 9.5 4.4-10.8 10^3/uL Red Blood Count 2.86 L 4.5-5.90 10^6/uL Hemoglobin 9.6 L 13.5-17.5 g/dL Hematocrit 28.4 L 41.0-53.0 % Mean Corpuscular Volume 99.2 80.0-100.0 fL Mean Corpuscular Hemoglobin 33.6 H 28.0-32.0 pg Mean Corpuscular Hemoglobin Concent 33.9 32.0-36.0 g/dL Red Cell Distribution Width 17.6 H 11.8-14.3 % Platelet Count 385 140-450 10^3/uL Mean Platelet Volume 6.8 L 6.9-10.8 fL Neutrophils (%) (Auto) 78.9 37.0-80.0 % Lymphocytes (%) (Auto) 11.2 10.0-50.0 % Monocytes (%) (Auto) 6.6 0.0-12.0 % Eosinophils (%) (Auto) 2.3 0.0-7.0 % Basophils (%) (Auto) 1.0 0.0-2.0 % Neutrophils # (Auto) 7.5 1.6-8.6 10 ^3/uL Lymphocytes # (Auto) 1.1 0.4-5.4 10 ^3/uL Monocytes # (Auto) 0.6 0-1.3 10 ^3/uL Eosinophils # (Auto) 0.2 0-0.8 10 ^3/uL Basophils # (Auto) 0.1 0-0.2 10 ^3/uL Nucleated Red Blood Cells 0.1 % Sodium Level 136 136-145 mmol/L Potassium Level 3.9 3.5-5.1 mmol/L Chloride Level 101 98-107 mmol/L Carbon Dioxide Level 20 20-31 mmol/L Anion Gap 15 5-15 Blood Urea Nitrogen 47 H 9-23 mg/dL Creatinine 3.63 H 0.700-1.30 mg/dL Glomerular Filtration Rate Calc 17 >90 mL/min BUN/Creatinine Ratio 12.9 10.0-20.0 Serum Glucose 197 H 74-106 mg/dL Lactic Acid Level 1.8 0.4-2.0 mmol/L Calcium Level 9.6 8.7-10.4 mg/dL Troponin I High Sensitivity 26 </=54 ng/L X-Ray, Labs, Meds, VS Comment CHEST RADIOGRAPH Indication: Generalized weakness Technique: Single frontal view of the chest was obtained COMPARISON: XY CHEST PORTABLE on DOS: 04/05/25, XY CHEST PORTABLE on DOS: 03/09/25, XY CHEST TWO VIEWS ROUTINE on DOS: 02/27/25, CHEST XRAY 1 VIEW on DOS: 06/12/21 FINDINGS: Lines and Tubes: None Lungs: Clear Pleura: No effusion. No pneumothorax. Cardiomediastinal contours: Unremarkable Bones: Unremarkable IMPRESSION: 1. No acute disease. Images Reviewed?: Images reviewed and evaluated by me Time of 1ST Reevaluation: 19:23 Reevaluation 1ST: Unchanged Patient Education/Counseling: Diagnosis, Treatment Family Education/Counseling: No Family Present Comments 74-year-old male presented to the ER via EMS for fatigue, generalized weakness and bilateral diabetic foot ulcer The patient was discharged from [facility] yesterday EKG revealed irregular rhythm, rate 110, wide QRS complex, right axis deviation and ST elevation in lead 2 and 3 and troponin was unremarkable the patient was not complaining of any chest pain, shortness of breath, lightheadedness, epigastric pain, nausea or vomiting. CBC demonstrated microcytic hypochromic anemia likely due to CKD BMP revealed elevated BUN creatinine likely AD on superimposed CKD The patient needs inpatient admission for further evaluation and management SEPSIS Sepsis Screen Date sepsis recognized/suspect: Apr 20, 2025 Time Sepsis recognized/suspect: 1656 Recent Procedure: No On Antibiotic Therapy: No Respiratory Rate >20: No Heart Rate >90: Yes Temp<36 C (96.8 F) or >38.3 C: No SBP <90 or MAP <65 mmHG: No New Acute Mental Status Change: No Is the patient on CPAP, BIPAP,: No Physician Orders B-Type Natriuretic Peptide (04/20/25 17:21) Urinalysis (04/20/25 17:21) Chest Portable (04/20/25 17:21) Electrocardigram (04/20/25 17:26) Bilat Lower Dvt (04/20/25 19:18) Vital Signs Date Time Temp Pulse Resp B/P (MAP) Pulse Ox O2 Delivery O2 Flow Rate FiO2 04/20/25 18:03 115 04/20/25 16:57 110 04/20/25 16:54 98.2 107 17 135/72 97 98.2 Laboratory Tests Test 04/20/25 18:31 Lactic Acid Level 1.8 mmol/L (0.4-2.0) White Blood Count 9.5 10^3/uL (4.4-10.8) Departure 1 Departure Time of Disposition: 19:23 Impression: Primary Impression: Generalized weakness Additional Impression: Acute kidney injury superimposed on CKD Disposition: 30 STILL A PATIENT Admit to: Med Surg Condition: Guarded Critical Care Note Critical Care Time?: No Stability Stability form required: ANDRE Thompson RESIDENT Apr 20, 2025 17:23
[2025-04-20 18:43] LABS: Hematocrit 28.4 % (41.0-53.0); Hemoglobin 9.6 g/dL (13.5-17.5); Mean Corpuscular Hemoglobin 33.6 pg (28.0-32.0); Mean Corpuscular Volume 99.2 fL (80.0-100.0); Nucleated Red Blood Cells % 0.1 %
--- NOTE | 2025-04-20 18:48 | DVH ---
CHEST RADIOGRAPH Indication: Generalized weakness Technique: Single frontal view of the chest was obtained COMPARISON: XY CHEST PORTABLE on DOS: 04/05/25, XY CHEST PORTABLE on DOS: 03/09/25, XY CHEST TWO VIEWS R OUTINE on DOS: 02/27/25, CHEST XRAY 1 VIEW on DOS: 06/12/21 FINDINGS: Lines and Tubes: None Lungs: Clear Pleura: No effusion. No pneumothorax. Cardiomediastinal contours: Unremarkable Bones: Unremarkable IMPRESSION: 1. No acute disease.
[2025-04-20 18:59] LABS: Chloride 101 mmol/L (98-107); Potassium 3.9 mmol/L (3.5-5.1); Sodium 136 mmol/L (136-145)
[2025-04-20 19:00] LABS: Anion Gap 15 (5-15)
[2025-04-20 19:01] LABS: Calcium 9.6 mg/dL (8.7-10.4)
[2025-04-20 19:06] LABS: BUN/Creatinine Ratio 12.9 (10.0-20.0)
[2025-04-20 19:07] LABS: Blood Urea Nitrogen 47 mg/dL (9-23); Carbon Dioxide 20 mmol/L (20-31); Glucose 197 mg/dL (74-106)
--- NOTE | 2025-04-20 20:45 | DVH ---
CLINICAL HISTORY: To rule out DVT TECHNIQUE: Color and duplex doppler imaging of the bilateral lower extremity veins was performed. Ves pamela compression if possible was also performed. WID: COMPARISON: US BILAT LOWER DVT on DOS: 03/10/25, US BILAT LOW EXT ART DUPLEX on DOS: 02/28/25 FINDINGS: Right Lower Extremity: Right common femoral vein: Normal compressibility and flow. Right femoral vein: Normal compressibility and flow. Right popliteal vein: Normal compressibility and flow. Proximal calf veins are normally compressible. Left Lower Extremity: Left common femoral vein: Normal compressibility and flow. Left femoral vein: Normal compressibility and flow. Left popliteal vein: Partially occlusive hypoechoic thrombus in the left popliteal vein Proximal calf veins are normally compressible. IMPRESSION: Positive for partially occlusive acute appearing DVT in the left popliteal vein. No evidence of DVT in the right lower extremity. Critical Result: Left popliteal vein DVT
[2025-04-20] MEDS ORDERED: DEXTROSE (50%) 50ML SYRG IV PRN (21:00)
[2025-04-20] MEDS ORDERED: SODIUM CHLORIDE 0.9% 1,000 ML IV ONE (21:00)
--- NOTE | 2025-04-20 21:23 | DVHHPRES ---
History of Present Illness Resident Creating Document: YOUSUF CAN RESIDENT History of Present Illness Osmel Page is a 74-year-old, with past medical history of DM type 2, diabetic ulcers, peripheral artery disease, hypertension and hyperlipidemia . The patient presented to the ED with chief complain of 1 day of generalized weakness, myalgias and nausea. He also reports 1 day without been able to void. The patient reports bilateral diabetic foot ulcer with poor healing, he was in a [facility] and was discharge yesterday. The patient denies fever, chills, vomit, sick contacts or other symptoms. On initial evaluation the troponin are unremarkable, the CBC demonstrated microcytic hypochromic anemia likely due to CKDBMP revealed elevated BUN creatinine likely AD on superimposed CKD. The patient will be admitted for further evaluation and management. Cardiovascular: CAD, HTN, hyperipidemia CLAIM TECHNICIAN: Periperal neuropathy Heme/Onc: Anemia NOS Endocrine: Diabetes (Type 2) Dermatology: Other (Bilateral diabetic ulcers) Past Surgical History: Tonsillectomy Family History: DM, Hypertension Smoke: No ALCOHOL: occassional Drugs: None Lives: with Family Review of Systems Constitutional: Yes: Weakness, Malaise; No: Fever, Chills, Sweats, Other Eyes: No: Pain, Vision change, Conjunctivae inflammation, Eyelid inflammation, Other, Redness ENT: No: Ear pain, Ear discharge, Nose pain, Nose discharge, Nose congestion, Mouth pain, Mouth swelling, Throat pain, Throat swelling, Other Respiratory: No: Cough, Dry, Shortness of breath, SOB with excertion, Wheezing, Hemoptysis, Pleuritic Pain, Sputum, Wheezing, Other Cardiovascular: No: Chest Pain, Palpitations, Orthopnea, Paroxysmal Noc. Dyspnea, Edema, Lt Headedness, Other Gastrointestinal: Nausea; No: Vomiting, Abdominal Pain, Diarrhea, Constipation, Melena, Hematochezia, Other Genitourinary: No Dysuria, No Frequency, No Incontinence, No Hematuria; Retention; No Other Musculoskeletal: No: other, neck pain, shoulder pain, arm pain, back pain, hand pain, leg pain, foot pain Skin: Other (Bilateral diabetic ulcers); No: Rash, Lesions, Jaundice, Bruising Neurological: Weakness; No: Numbness, Incoordination, Change in speech, Confusion, Seizures, Other Allergies: Coded Allergies: NO KNOWN ALLERGIES (Unverified , 06/12/21) Medications Current Medications Medications Dose Ordered Sig/Bandar Route Start Time Stop Time Status Last Admin Dose Admin Enoxaparin Sodium 30 mg DAILY SC 04/21/25 10:00 UNV Pantoprazole Sodium 40 mg DAILY PO 04/21/25 10:00 UNV Diagnostic Test (Pha) 1 strip Q6HR 04/21/25 00:00 UNV Insulin Human Regular Q6HR SC 04/21/25 00:00 UNV Dextrose 50 ml UD PRN IV 04/20/25 21:00 UNV Exam Vital Signs Vital Signs Date Time Temp Pulse Resp B/P (MAP) Pulse Ox O2 Delivery O2 Flow Rate FiO2 04/20/25 18:03 115 04/20/25 16:54 98.2 17 135/72 97 98.2 General Appearance: Alert, Oriented X3, Cooperative, mild distress HEENT: Atraumatic, Other (Dry mucous membranes) Respiratory: Clear to auscultation, Normal air movement Cardiovascular: Regular rate, Normal S1, Normal S2, No murmurs Abdominal: Normal bowel sounds, Soft, No tenderness, No hepatospenomegaly Extremities: No clubbing, No cyanosis, Other (Bilateral lower leg edema up to the knees, pulses hard to palpate due to edema, disminished 2+/5+. Bilateral diabtetic ulcers, clean bases, small amount of serous secretions. ) Skin: No rashes Neuro: Normal speech, Strength at 5/5 X4 ext, Normal tone, Other (Sensation disminished in bilateral foot and legs. ) Psych/Mental Status: Mental status NL, Mood NL Labs/Xrays Labs Test 04/20/25 18:31 04/20/25 17:21 Range/Units White Blood Count 9.5 4.4-10.8 10^3/uL Red Blood Count 2.86 L 4.5-5.90 10^6/uL Hemoglobin 9.6 L 13.5-17.5 g/dL Hematocrit 28.4 L 41.0-53.0 % Mean Corpuscular Volume 99.2 80.0-100.0 fL Mean Corpuscular Hemoglobin 33.6 H 28.0-32.0 pg Mean Corpuscular Hemoglobin Concent 33.9 32.0-36.0 g/dL Red Cell Distribution Width 17.6 H 11.8-14.3 % Platelet Count 385 140-450 10^3/uL Mean Platelet Volume 6.8 L 6.9-10.8 fL Neutrophils (%) (Auto) 78.9 37.0-80.0 % Lymphocytes (%) (Auto) 11.2 10.0-50.0 % Monocytes (%) (Auto) 6.6 0.0-12.0 % Eosinophils (%) (Auto) 2.3 0.0-7.0 % Basophils (%) (Auto) 1.0 0.0-2.0 % Neutrophils # (Auto) 7.5 1.6-8.6 10 ^3/uL Lymphocytes # (Auto) 1.1 0.4-5.4 10 ^3/uL Monocytes # (Auto) 0.6 0-1.3 10 ^3/uL Eosinophils # (Auto) 0.2 0-0.8 10 ^3/uL Basophils # (Auto) 0.1 0-0.2 10 ^3/uL Nucleated Red Blood Cells 0.1 % Sodium Level 136 136-145 mmol/L Potassium Level 3.9 3.5-5.1 mmol/L Chloride Level 101 98-107 mmol/L Carbon Dioxide Level 20 20-31 mmol/L Anion Gap 15 5-15 Blood Urea Nitrogen 47 H 9-23 mg/dL Creatinine 3.63 H 0.700-1.30 mg/dL Glomerular Filtration Rate Calc 17 >90 mL/min BUN/Creatinine Ratio 12.9 10.0-20.0 Serum Glucose 197 H 74-106 mg/dL Lactic Acid Level 1.8 0.4-2.0 mmol/L Calcium Level 9.6 8.7-10.4 mg/dL Troponin I High Sensitivity 26 </=54 ng/L B-Type Natriuretic Peptide 66.65 0-100 pg/mL SEPSIS Sepsis Screen Date sepsis recognized/suspect: Apr 20, 2025 Time Sepsis recognized/suspect: 1656 Recent Procedure: No On Antibiotic Therapy: No Respiratory Rate >20: No Heart Rate >90: Yes Temp<36 C (96.8 F) or >38.3 C: No SBP <90 or MAP <65 mmHG: No New Acute Mental Status Change: No Is the patient on CPAP, BIPAP,: No Physician Orders Urinalysis (04/20/25 17:21) Chest Portable (04/20/25 17:21) Electrocardigram (04/20/25 17:26) Bilat Lower Dvt (04/20/25 19:18) Admit (04/20/25 20:46) Code Status (04/20/25 20:46) Vital Signs .PER UNIT PROTOCOL (04/20/25 20:46) Review Orders With Adm.Md (04/20/25 20:46) Bedside Commode (04/20/25 20:46) [facility]Diabetes (04/21/25 Breakfast) Notify Md Of Changes From Base (04/20/25 20:46) Advance Directive (04/20/25 20:46) Basic Metabolic Panel (04/21/25 04:00) Urinalysis (04/20/25 20:46) Complete Blood Count (04/21/25 04:00) Blood Culture (04/20/25 20:46) Urine Bacterial Culture (04/20/25 20:46) Patient Condition (04/20/25 20:46) Allergies (04/20/25 20:46) Drug Screen (04/20/25 20:46) Enoxaparin Sodium (Lovenox) (04/21/25 10:00) Pantoprazole Tablet (Protonix Tablet) (04/21/25 10:00) * Wound Consult (04/20/25 ) Sodium Chloride 0.9% (04/20/25 21:00) Glucose Blood (Accu-Chek Comfort Curve T (04/21/25 00:00) Insulin R (Human) (Insulin R) (04/21/25 00:00) Dextrose 50% Syringe (04/20/25 21:00) * Professor Of Theatre Consult (04/20/25 ) Pt Request For Service (04/20/25 21:05) Vital Signs Date Time Temp Pulse Resp B/P (MAP) Pulse Ox O2 Delivery O2 Flow Rate FiO2 04/20/25 18:03 115 04/20/25 16:57 110 04/20/25 16:54 98.2 107 17 135/72 97 98.2 Laboratory Tests Test 04/20/25 18:31 Lactic Acid Level 1.8 mmol/L (0.4-2.0) White Blood Count 9.5 10^3/uL (4.4-10.8) Assessment/Plan Assessment/Plan #Generalized weakness possible dehydration. 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 #Hx Peripheral artery disease. #DVT US Doppler; Positive for partially occlusive acute appearing DVT in the left popliteal vein. Heparin drip #Urinary retention # UTI, possible cystitis Leung catheter UA Urinary culture Ceftriaxone 1g IV #Bilateral Diabetic Foot Ulcer Wound consult Consider wound culture. #DM type 2 with hyperglycemia Sliding insulin scale HbA1C #Essential hypertension Continue home medications. Diabetic diet DVT prophylaxis- ambulating. PUD prophylaxis Protonic. Goals of care discussed with the patient > 35 min. Discussed plan of care with Dr. Daugherty Code status: Full code PCP: Dr. Clari Robles Plan discussed with: Patient, the patient agrees with the admission plan. Plan discussed with: Patient My Orders Orders - YOUSUF CAN RESIDENT Procedure Category Date Status Time Admit ADMIT 04/20/25 Transmitted 20:46 Code Status CODE 04/20/25 Transmitted 20:46 Vital Signs [facility] 04/20/25 In Process 20:46 Review Orders With [facility] 04/20/25 In Process Adm. 20:46 Bedside Commode [facility] 04/20/25 In Process 20:46 Consistent DIET 04/21/25 Transmitted Carb(Ccho)Diabetes Breakfast Notify Of Changes [facility] 04/20/25 In Process From Base 20:46 Advance Directive [facility] 04/20/25 In Process 20:46 Basic Metabolic Panel LAB 04/21/25 Verified 04:00 Urinalysis LAB 04/20/25 Logged 20:46 Complete Blood Count LAB 04/21/25 Verified 04:00 Blood Culture EUGENIO 04/20/25 Logged 20:46 Urine Bacterial EUGENIO 04/20/25 Logged Culture 20:46 Patient Condition ORDERS 04/20/25 Transmitted 20:46 Allergies [place]OR 04/20/25 In Process 20:46 Drug Screen LAB 04/20/25 Logged 20:46 Enoxaparin Sodium PHA 04/21/25 Logged (Lovenox) 10:00 Pantoprazole Tablet PHA 04/21/25 Logged (Protonix Tablet) 10:00 * Wound Consult CONS 04/20/25 Transmitted Sodium Chloride 0.9% PHA 04/20/25 Logged 21:00 Glucose Blood PHA 04/21/25 Logged (Accu-Chek Comfort 00:00 Insulin R (Human) PHA 04/21/25 Logged (Insulin R) 00:00 Dextrose 50% Syringe PHA 04/20/25 Logged 21:00 * Professor Of Theatre CONS 04/20/25 Transmitted Consult Pt Request For Service PT 04/20/25 Logged 21:05 Date of Service: Apr 20, 2025 Billing Provider: JORGE L DAUGHERTY MD Common Visit Codes: [id number] INP/OBS CARE (HIGH) Secondary Visit Codes: [id number] CARE PLAN 30 MINUTES YOUSUF CAN RESIDENT Apr 20, 2025 21:23 SHWETA CONRAD MD Apr 27, 2025 13:47
[2025-04-20 21:55] VITALS: RESP 19; O2SAT 92
[2025-04-20 22:17] LABS: Hematocrit 27.7 % (41.0-53.0); Hemoglobin 9.4 g/dL (13.5-17.5); Mean Corpuscular Hemoglobin 33.4 pg (28.0-32.0); Mean Corpuscular Volume 99.0 fL (80.0-100.0); Nucleated Red Blood Cells % 0.0 %
[2025-04-20 22:54] LABS: INR 1.15 (0.9-1.15); Partial Thromboplastin Time 29.7 SEC (24.5-34.5); Prothrombin Time 12.0 sec (9.3-11.8)
[2025-04-20] MEDS: HEPARIN SODIUM (PORCINE) 5000 UNITS/ML 1ML VIAL IV ONE (23:30)
[2025-04-20] MEDS ORDERED: HEPARIN DRIP/D5W 100UNITS/ML 250 ML IV SCH (23:30)
[2025-04-21] VITALS (10 sets, daily range): BP systolic 107–168; BP diastolic 58–79; PULSE 87–105; RESP 16–18; TEMP 97.5–98.3; O2SAT 97–99
[2025-04-21 00:01] LABS: Urine Budding Yeast MANY /hpf (None Seen); Urine Protein, UAD 1+ (Negative); Urine WBC Clumps PRESENT /hpf (None Seen)
[2025-04-21 00:16] LABS: Amphetamine Screen, Urine Neg (NEGATIVE); Barbiturate Scree,Urine Neg (NEGATIVE); Benzodiazephine Screen, Urine Neg (NEGATIVE); Cannabinoid Screen, Urine Neg (NEGATIVE); Cocaine Screen, Urine Neg (NEGATIVE); Opiate Scree,Urine Neg (NEGATIVE); Phencyclidine Screen, Urine Neg (NEGATIVE)
[2025-04-21 00:52] LABS: COVID19 ANTIGEN SOFIA FIA NEGATIVE (NEGATIVE)
[2025-04-21] MEDS: HEPARIN SODIUM (PORCINE) 5000 UNITS/ML 1ML VIAL IV ONE ×2 (00:59→12:26)
[2025-04-21] MEDS: HEPARIN DRIP/D5W 100UNITS/ML 250 ML IV SCH ×3 (01:01→20:50)
[2025-04-21] MEDS: HEPARIN 1,000 UNITS/ml 1ML VIAL ONE (01:10)
[2025-04-21] MEDS: SODIUM CHLORIDE 0.9% 500 ML IV ONE (02:51)
[2025-04-21] MEDS: ACCU-CHEK COMFORT CURVE STRIP VI SCH (02:51)
[2025-04-21] MEDS: InsuLIN REG 1unit/0.01ml Soln (100units/ml) SC SCH (03:06)
[2025-04-21] MEDS: cefTRIAXone 1GM/50ML D5W 50 ML IV ONE (03:06)
[2025-04-21 06:49] LABS: Anion Gap 12 (5-15); Carbon Dioxide 24 mmol/L (20-31); Chloride 103 mmol/L (98-107); Sodium 139 mmol/L (136-145)
[2025-04-21 06:50] LABS: Calcium 9.2 mg/dL (8.7-10.4); Potassium 3.5 mmol/L (3.5-5.1)
[2025-04-21 06:55] LABS: BUN/Creatinine Ratio 12.2 (10.0-20.0)
[2025-04-21 06:56] LABS: Blood Urea Nitrogen 46 mg/dL (9-23); Glucose 155 mg/dL (74-106)
[2025-04-21 07:08] LABS: Hematocrit 23.7 % (41.0-53.0); Hemoglobin 8.1 g/dL (13.5-17.5); Mean Corpuscular Hemoglobin 33.2 pg (28.0-32.0); Mean Corpuscular Volume 96.6 fL (80.0-100.0); Nucleated Red Blood Cells % 0.1 %
[2025-04-21] MEDS ORDERED: ENOXAPARIN SOD 30 MG/0.3 ML SYRINGE SC SCH (10:00)
[2025-04-21] MEDS: PANTOPRAZOLE 40 MG TAB PO SCH (10:41)
[2025-04-21 11:44] LABS: INR 1.16 (0.9-1.15); Partial Thromboplastin Time 33.3 SEC (24.5-34.5); Prothrombin Time 12.1 sec (9.3-11.8)
[2025-04-21 12:20] LABS: Ferritin 413.8 ng/mL (22-322)
--- NOTE | 2025-04-21 12:43 | CONS ---
Pharmacy Clinical Information: INCREASED HEPARIN RATE TO 15 ML/HR OR 1500 UNITS/HR SINCE APTT = 33.3 @1053 04/21 PER RX PROTOCOL GIVE BOLUS 5000 UNITS X1 DOSE TODAY 04/21 NEXT APTT IVANA @1830 04/21 KATIE SALOMON REPEATED BACK ORDER FROM 12 ML/HR TO 15 ML/HR AND GIVE HEPARIN BOLUS 5000 UNITS VICENTE JAIMES PHARMACIST Apr 21, 2025 12:43
--- NOTE | 2025-04-21 13:11 | ECG ---
[facility] Test Date: 2025-04-20 Test Time: 16:57:32 Pat Name: RAJESH ELIAS Department: ED Room: 0295 A Gender: M Wafer Cutter: jeaentte : [id number] Requested By: ANDRE SILVEIRA Order Number: [id number] Reading MD: Kelton Ji Measurements Intervals [place] Rate: 110 P: 0 GA: 0 QRS: -67 QRSD: 152 T: 45 QT: 395 QTc: 535 Interpretive Statements Atrial flutter with predominant 2:1 AV block RBBB and LAFB Consider left ventricular hypertrophy Inferior infarct, acute Lateral leads are also involved Electronically Signed On 04-25-2025 22:40:55 PDT by Kelton Ji Please click the below link to view image of tracing.
[2025-04-21 15:14] LABS: Iron 24.0 ug/dL (65-175)
--- NOTE | 2025-04-21 16:48 | DVHINCON2 ---
Date of service: Apr 21, 2025 Reason for Consultation AD History of Present Illness 74 years old male with past medical history of hypertension, diabetes mellitus 2, CKD, peripheral artery disease, hyperlipidemia, right foot osteomyelitis, chronic bilateral leg wounds, history of testicular cancer diagnosed in 1993, status post left orchiectomy came with chief complaints of nausea, generalized weakness, body pains He does have foot ulcers Last admission came in with GFR of 15 that improved to 25 Has recent multiple admissions Has Leung currently day draining milky white urine Past Medical History As per HPI Past Surgical History As per HPI Allergies: Coded Allergies: NO KNOWN ALLERGIES (Unverified , 06/12/21) Home Meds Active Scripts Metronidazole (Flagyl) 500 Mg Tab, 500 MG PO TID for 42 Days, #126 TAB Prov:MARITZA FARRAR MD 03/04/25 Hydrocodone-Acetaminophen (Hydrocodone Bitartrate/AC 5-325 mg) 1 Tab Tab, 1 TAB PO BID PRN, #40 TAB Prov:ADARSH WILLIS MD 03/04/25 Rifampin (Rifampin) 300 Mg Cap, 300 MG PO BID, #90 CAP Prov:ADARSH WILLIS MD 03/04/25 Ciprofloxacin Hcl (Cipro) 500 Mg Tab, 1 TAB PO BID, #90 TAB Prov:ADARSH WILLIS MD 03/04/25 Doxycycline (Monohydrate) (Doxycycline) 100 Mg Cap, 100 MG PO BIDAC, #90 CAP Prov:ADARSH WILLIS MD 03/04/25 Reported Medications Hydrochlorothiazide (Hydrochlorothiazide) 25 Mg Tab, 50 MG PO DAILY for 14 Days, #14 04/11/25 Carvedilol (Carvedilol) 12.5 Mg Tab, 1 TAB PO BID for 14 Days, #28 04/11/25 Glipizide (Glipizide) 5 Mg Tab, 1 TAB PO BID for 14 Days, #28 04/11/25 Tamsulosin Hcl (Tamsulosin Hcl) 0.4 Mg Cap, 0.4 MG PO QPM for 30 Days, MG 02/24/25 Amlodipine Besylate (Amlodipine Besylate) 5 Mg Tab, 1 TAB PO DAILY 02/24/25 Furosemide (Furosemide) 40 Mg Tab, 1 TAB PO DAILY 02/24/25 Aspirin (Aspirin Adult Low Dose) 81 Mg Tab, 1 TAB PO DAILY 02/24/25 Calcium Carbonate-Cholecalcife (Calcium 500-10 mg-Mcg) 1 Chw Chw, 1 TAB PO BID 02/24/25 Atorvastatin Calcium (ATORVASTATIN CALCIUM) 10 Mg Tab, 10 MG PO DAILY, TAB 06/13/21 Metformin HCl (Metformin Hydrochloride) 500 Mg/5 Ml Gwendolyn, 500 MG PO, ML 06/13/21 Current Medications Current Medications Medications (Trade) Dose Ordered Sig/Bandar Route PRN Reason Start Time Stop Time Status Last Admin Enoxaparin Sodium (Lovenox) 30 mg DAILY SC 04/21/25 10:00 04/20/25 21:39 DC Pantoprazole Sodium (Protonix Tablet) 40 mg DAILY PO 04/21/25 10:00 04/21/25 10:41 Diagnostic Test (Pha) (Accu-Chek Comfort Curve T) 1 strip Q6HR 04/21/25 00:00 04/21/25 12:09 Insulin Human Regular (InsuLIN R) Q6HR SC 04/21/25 00:00 04/21/25 12:09 Dextrose 50 ml UD PRN IV Blood Sugar LESS THAN 60 04/20/25 21:00 Heparin Sodium/ Dextrose 250 ml @ 12 mls/hr [id number] IV 04/20/25 23:30 04/21/25 00:53 DC Heparin Sodium/ Dextrose 250 ml @ 12 mls/hr [id number] IV 04/21/25 01:00 04/21/25 11:59 DC 04/21/25 01:01 Ceftriaxone Sodium 50 ml @ 100 mls/hr DAILY@09 IV 04/22/25 09:00 Heparin Sodium/ Dextrose 250 ml @ 15 mls/hr [id number] IV 04/21/25 12:00 04/21/25 12:26 Family History: Cerebrovascular accident (CVA) G8 MOTHER FH: CABG (coronary artery bypass surgery) G8 FATHER FH: liver disease G8 FATHER Hepatitis C G8 FATHER Review of Systems As documented in HPI H&P Exam Vital Signs/I&O Vital Sign Date Time Temp Pulse Resp B/P (MAP) Pulse Ox O2 Delivery O2 Flow Rate FiO2 04/21/25 13:00 98.3 98 16 107/62 (77) 97 98.3 04/21/25 08:00 Room Air* 0 21 Intake and Output 04/20/25 04/21/25 19:00 07:00 Intake Total 0 ml Output Total 50 ml Balance -50 ml Intake Oral 0 ml Output Urine Total 50 ml Physical Exam General-not in any distress HEENT-normocephalic, no icterus, no pallor, neck supple Respiratory-fair air entry bilateral, no rhonchi, no wheeze [id number] heard, no murmurs appreciated Abdominal-soft, nontender, nondistended Musculoskeletal-+pedal edema, no calf tenderness.. Positive multiple feet ulcers wounds Genitourinary-deferred Neuro-awake alert oriented x3, Psychiatric-not agitated, cooperative, Labs/Diagnostic Data Labs/Diagnostic Data Laboratory Tests Test 04/21/25 11:55 04/21/25 10:53 04/21/25 05:50 04/21/25 05:46 Range/Units POC Glucose 179 H 146 H 70-106 mg/dl Prothrombin Time 12.1 H 9.3-11.8 sec Prothrombin Time INR 1.16 H 0.9-1.15 Activated Partial Thromboplast Time 33.3 24.5-34.5 SEC White Blood Count 8.1 # 4.4-10.8 10^3/uL Red Blood Count 2.45 L 4.5-5.90 10^6/uL Hemoglobin 8.1 L 13.5-17.5 g/dL Hematocrit 23.7 #L 41.0-53.0 % Mean Corpuscular Volume 96.6 80.0-100.0 fL Mean Corpuscular Hemoglobin 33.2 H 28.0-32.0 pg Mean Corpuscular Hemoglobin Concent 34.4 32.0-36.0 g/dL Red Cell Distribution Width 17.2 H 11.8-14.3 % Platelet Count 312 140-450 10^3/uL Mean Platelet Volume 7.0 6.9-10.8 fL Neutrophils (%) (Auto) 82.2 H 37.0-80.0 % Lymphocytes (%) (Auto) 10.1 10.0-50.0 % Monocytes (%) (Auto) 6.6 0.0-12.0 % Eosinophils (%) (Auto) 0.5 0.0-7.0 % Basophils (%) (Auto) 0.6 0.0-2.0 % Neutrophils # (Auto) 6.7 1.6-8.6 10 ^3/uL Lymphocytes # (Auto) 0.8 0.4-5.4 10 ^3/uL Monocytes # (Auto) 0.5 0-1.3 10 ^3/uL Eosinophils # (Auto) 0 0-0.8 10 ^3/uL Basophils # (Auto) 0 0-0.2 10 ^3/uL Nucleated Red Blood Cells 0.1 % Sodium Level 139 136-145 mmol/L Potassium Level 3.5 3.5-5.1 mmol/L Chloride Level 103 98-107 mmol/L Carbon Dioxide Level 24 20-31 mmol/L Anion Gap 12 5-15 Blood Urea Nitrogen 46 H 9-23 mg/dL Creatinine 3.77 H 0.700-1.30 mg/dL Glomerular Filtration Rate Calc 16 >90 mL/min BUN/Creatinine Ratio 12.2 10.0-20.0 Serum Glucose 155 H 74-106 mg/dL Calcium Level 9.2 8.7-10.4 mg/dL Iron Level 24 L 65-175 ug/dL Ferritin 413.8 H 22-322 ng/mL Vitamin B12 Level 437 211-911 pg/mL Vitamin D 25-Hydroxy 30.9 30.0-100 ng/mL Parathyroid Hormone (Intact) 99.3 H 18.4-80.1 pg/mL Test 04/21/25 02:47 04/20/25 22:00 04/20/25 21:40 04/20/25 18:31 Range/Units POC Glucose 186 H 70-106 mg/dl White Blood Count 11.0 H 9.5 4.4-10.8 10^3/uL Red Blood Count 2.80 L 2.86 L 4.5-5.90 10^6/uL Hemoglobin 9.4 L 9.6 L 13.5-17.5 g/dL Hematocrit 27.7 L 28.4 L 41.0-53.0 % Mean Corpuscular Volume 99.0 99.2 80.0-100.0 fL Mean Corpuscular Hemoglobin 33.4 H 33.6 H 28.0-32.0 pg Mean Corpuscular Hemoglobin Concent 33.8 33.9 32.0-36.0 g/dL Red Cell Distribution Width 17.0 H 17.6 H 11.8-14.3 % Platelet Count 413 385 140-450 10^3/uL Mean Platelet Volume 6.8 L 6.8 L 6.9-10.8 fL Neutrophils (%) (Auto) 80.2 H 78.9 37.0-80.0 % Lymphocytes (%) (Auto) 10.3 11.2 10.0-50.0 % Monocytes (%) (Auto) 7.2 6.6 0.0-12.0 % Eosinophils (%) (Auto) 1.8 2.3 0.0-7.0 % Basophils (%) (Auto) 0.5 1.0 0.0-2.0 % Neutrophils # (Auto) 8.8 H 7.5 1.6-8.6 10 ^3/uL Lymphocytes # (Auto) 1.1 1.1 0.4-5.4 10 ^3/uL Monocytes # (Auto) 0.8 0.6 0-1.3 10 ^3/uL Eosinophils # (Auto) 0.2 0.2 0-0.8 10 ^3/uL Basophils # (Auto) 0.1 0.1 0-0.2 10 ^3/uL Nucleated Red Blood Cells 0.0 0.1 % Prothrombin Time 12.0 H 9.3-11.8 sec Prothrombin Time INR 1.15 0.9-1.15 Activated Partial Thromboplast Time 29.7 24.5-34.5 SEC Hemoglobin A1c 6.7 H <5.7 % A1C Urine Color Yellow Yellow Urine Clarity Ex.turbid Clear Urine pH 5.5 5.0-9.0 Urine Specific [place] 1.016 1.001-1.035 Urine Protein 1+ H Negative Urine Ketones 1+ H Negative Urine Blood 2+ H Negative /uL Urine Nitrite Negative Negative Urine Bilirubin Negative Negative Urine Urobilinogen 2 H Negative mg/dL Urine Leukocyte Esterase 3+ Negative /uL Urine RBC 37 0 - 3 /hpf Urine WBC Clumps Present None Seen /hpf Urine Microscopic WBC 542 H 0-3 /HPF Urine Squamous Epithelial Cells Few <5 /hpf Urine Bacteria None seen None Seen /hpf Urine Hyaline Casts Mod 0 - 2 /lpf Urine Yeast (Budding) Many None Seen /hpf Urine Glucose Normal Normal mg/dL Urine Opiates Screen Neg NEGATIVE Urine Fentanyl Screen Neg NEGATIVE Urine Barbiturates Screen Neg NEGATIVE Urine Phencyclidine Screen Neg NEGATIVE Urine Amphetamines Screen Neg NEGATIVE Urine Benzodiazepines Screen Neg NEGATIVE Urine Cocaine Screen Neg NEGATIVE Urine Cannabinoids Screen Neg NEGATIVE Influenza Type A Antigen Negative Negative Influenza Type B Antigen Negative Negative SARS-CoV-2 Antigen (Rapid) Negative NEGATIVE Sodium Level 136 136-145 mmol/L Potassium Level 3.9 3.5-5.1 mmol/L Chloride Level 101 98-107 mmol/L Carbon Dioxide Level 20 20-31 mmol/L Anion Gap 15 5-15 Blood Urea Nitrogen 47 H 9-23 mg/dL Creatinine 3.63 H 0.700-1.30 mg/dL Glomerular Filtration Rate Calc 17 >90 mL/min BUN/Creatinine Ratio 12.9 10.0-20.0 Serum Glucose 197 H 74-106 mg/dL Lactic Acid Level 1.8 0.4-2.0 mmol/L Calcium Level 9.6 8.7-10.4 mg/dL Troponin I High Sensitivity 26 </=54 ng/L Test 04/20/25 17:21 Range/Units B-Type Natriuretic Peptide 66.65 0-100 pg/mL Assessment Acute kidney injury on Chronic kidney disease four hemodynamic mediated etiology multifactorial in the setting of recent antibiotics, diuretics, chronic infection Bilateral feet ulcers/foot wounds Diabetes Anemia chf recs Gentle IV fluids Send urine for culture Currently has Madhu We will follow renal function closely Plan discussed with: Patient SHANTANU BECK MD Apr 21, 2025 16:48
[2025-04-21] MEDS: Glucerna Carbsteady SHAKE Vanilla 8oz PO SCH (18:05)
--- NOTE | 2025-04-21 19:04 | DVHPNRES ---
Progress Note Date Seen: Apr 21, 2025 Resident Creating Document: LESLEY LICEA RESIDENT Medical Necessity Reason Pt with a Central, PICC or Fol: Yes The following are medically ne: Leung Catheter Subjective Review of Systems sOmel Page is a 74-year-old, with past medical history of DM type 2, diabetic ulcers, peripheral artery disease, Triple-vessel CAD, hypertension and hyperlipidemia . The patient presented to the ED with chief complain of 1 day of generalized weakness, myalgias and nausea. He also reports 1 day without been able to void. The patient reports bilateral diabetic foot ulcer with poor healing, he was in a care home and was discharge day before yesterday. The patient denies fever, chills, vomit, sick contacts or other symptoms. past medical history: CAD with triple-vessel block, HTN, hyperlipidemia, peripheral neuropathy, anemia, diabetes mellitus type 2 Past Surgical History: Tonsillectomy Family History: DM, Hypertension Smoke: No ALCOHOL: occassional Drugs: None Lives: with Family ROS: Patient was seen by me at the bedside. Overnight events were reviewed. Patient complains that he still feels weak and is unable to ambulate properly. He has no active complaints today. Nephrology was consulted and suggested Gentle IV fluids, Send urine for culture, Currently has Leung, We will follow renal function closely. Podiatry consultation, pending. Objective vital signs Vital Sign Date Time Temp Pulse Resp B/P (MAP) Pulse Ox O2 Delivery O2 Flow Rate FiO2 04/21/25 18:21 87 18 159/67 (97) 98 04/21/25 17:00 97.5 97.5 04/21/25 08:00 Room Air* 0 21 Total Intake and Output 04/20/25 04/20/25 04/21/25 15:00 23:00 07:00 Intake Total 0 ml Output Total 50 ml Balance -50 ml medications Current Medications Medications Dose Ordered Sig/Bandar Route Start Time Stop Time Status Last Admin Dose Admin Pantoprazole Sodium 40 mg DAILY PO 04/21/25 10:00 04/21/25 10:41 40 MG Diagnostic Test (Pha) 1 strip Q6HR 04/21/25 00:00 04/21/25 18:06 1 STRIP Insulin Human Regular Q6HR SC 04/21/25 00:00 04/21/25 12:09 3 UNITS Dextrose 50 ml UD PRN IV 04/20/25 21:00 Ceftriaxone Sodium 50 ml @ 100 mls/hr DAILY@09 IV 04/22/25 09:00 Heparin Sodium/ Dextrose 250 ml @ 15 mls/hr [id number] IV 04/21/25 12:00 04/21/25 12:26 15 MLS/HR Enteral Nutritional Formula 240 ml TIDWM PO 04/21/25 18:00 04/21/25 18:05 240 ML Amlodipine Besylate 5 mg DAILY PO 04/22/25 10:00 UNV Aspirin 81 mg DAILY PO 04/22/25 10:00 UNV Carvedilol 12.5 mg BID PO 04/21/25 22:00 UNV Furosemide 40 mg DAILY PO 04/22/25 10:00 UNV Tamsulosin HCl 0.4 mg QPM PO 04/21/25 19:00 UNV Atorvastatin Calcium 20 mg HS PO 04/21/25 22:00 UNV Examination General Appearance: Alert, Oriented X3, Cooperative, mild distress HEENT: Atraumatic, Other (Dry mucous membranes) Respiratory: Clear to auscultation, Normal air movement Cardiovascular: Regular rate, Normal S1, Normal S2, No murmurs Abdominal: Normal bowel sounds, Soft, No tenderness, No hepatospenomegaly Extremities: No clubbing, No cyanosis, Other (Bilateral lower leg edema up to the knees, pulses hard to palpate due to edema, disminished 2+/5+. Bilateral diabtetic ulcers, clean bases, small amount of serous secretions. eschar present on the left heel, left lateral feet. Amputation of the left hallux ) Skin: No rashes Neuro: Normal speech, Strength at 5/5 X4 ext, Normal tone, Other (Sensation disminished in bilateral foot and legs. ) laboratory and microbiology Laboratory Tests 04/21/25 05:50 Test 04/21/25 05:50 Range/Units Serum Glucose 155 H 74-106 mg/dL Labs and/or images reviewed: Labs reviewed by me, Image(s) reviewed by me Problem List/Assessment/Plan Problem List/Assessment/Plan #Generalized weakness possible dehydration. #Acute kidney injury on Chronic kidney disease four hemodynamic mediated etiology multifactorial in the setting of recent antibiotics, diuretics, chronic infection #Urinary retention #UTI, possible cystitis -IV fluids: NS -Crea 3.63 BUN47 -Avoid nephrotoxic drugs -Monitor Crea and BUN. -Nephrology consult suggested Gentle IV fluids, Send urine for culture, Currently has Leung, We will follow renal function closely -Leung catheter -UA shows WBC 542, hyaline casts, budding cells, +1 ketone, +1 protein, 2+ blood urine, 2+ urine urobilinogen -Urinary culture, pending -Ceftriaxone 1g IV -Tamsulosin #Hx Peripheral artery disease. #DVT -US Doppler; Positive for partially occlusive acute appearing DVT in the left popliteal vein. -Heparin drip #DM type 2 with hyperglycemia HbA1C 6.7 #Bilateral Diabetic Foot Ulcer -Wound consult -Sliding insulin scale -Podiatry consult, pending #Essential hypertension -amlodipine 5 mg per orally daily #triple vessel cad -Continue carvedilol 12.5 mg p.o. b.i.d., aspirin 81 mg p.o. daily #Anemia of chronic disease -monitor H&H # hyperlipidemia -Atorvastatin 20 mg HS DVT prophylaxis: heparin drip continued Diet: diabetic diet Goals of care discussed with the patient for more than 27 minutes: Full code status Case discussed with Dr. Jaimes, patient and nurse. Plan discussed with: Patient, Other (rn) My Orders My Orders Orders - LESLEY LICEA Procedure Category Date Status Time Iron Panel LAB 04/21/25 In Process 07:31 *[facility] CONS 04/21/25 Transmitted -[facility] 08:35 Podiatry Consult CONS 04/21/25 Transmitted 18:31 Urine Bacterial EUGENIO 04/21/25 Uncollected Culture 18:38 Amlodipine Tablet PHA 04/22/25 Logged (Norvasc Tablet) 10:00 Aspirin Enteric PHA 04/22/25 Logged Coated Tablet 10:00 Carvedilol Tablet PHA 04/21/25 Logged (Coreg Tablet) 22:00 Furosemide Tablet PHA 04/22/25 Logged (Lasix Tablet) 10:00 Tamsulosin PHA 04/21/25 Logged Hydrochloride (Flomax) 19:00 Atorvastatin (Lipitor) PHA 04/21/25 Logged 22:00 Lipid Panel LAB 04/21/25 Verified 18:59 Date of Service: Apr 21, 2025 Billing Provider: KAYLIN JAIMES MD Common Visit Codes: [id number] INP/OBS CARE(HIGH) LESLEY LICEA RESIDENT Apr 21, 2025 19:04 KAYLIN JAIMES MD Apr 21, 2025 22:36
[2025-04-21 19:21] LABS: INR 1.15 (0.9-1.15); Partial Thromboplastin Time 40.6 SEC (24.5-34.5); Prothrombin Time 12.0 sec (9.3-11.8)
[2025-04-21 19:59] LABS: Triglycerides 108 mg/dL (< 150)
[2025-04-21 20:02] LABS: Cholesterol 119 mg/dL (< 200)
[2025-04-21 20:05] LABS: HDL Cholesterol 28 mg/dL (40-59)
--- NOTE | 2025-04-21 20:31 | CONS ---
Pharmacy Clinical Information: INCREASE HEPARIN DRIP RATE TO 1700 UNITS/HR PER APTT OF 40.6 NEXT APTT DRAW SCHEDULED FOR 0230 ON 04/22 PER RX PROTOCOL AIME ORANTES CONFIRMED AND READ BACK Rita Ryan PHARMACIST Apr 21, 2025 20:31
[2025-04-21] MEDS: TAMSULOSIN HYDROCHLORIDE 0.4 MG CAP PO SCH (21:30)
[2025-04-21] MEDS: ATORVASTATIN 20 MG TAB PO SCH (21:30)
[2025-04-21] MEDS: CARVEDILOL 12.5 MG TAB PO SCH (21:32)
[2025-04-22] VITALS (8 sets, daily range): BP systolic 98–139; BP diastolic 51–72; PULSE 77–93; RESP 14–19; TEMP 97.6–98.5; O2SAT 96–99
[2025-04-22 02:48] LABS: INR 1.13 (0.9-1.15); Partial Thromboplastin Time 47.9 SEC (24.5-34.5); Prothrombin Time 11.8 sec (9.3-11.8)
[2025-04-22] MEDS: HEPARIN DRIP/D5W 100UNITS/ML 250 ML IV SCH ×2 (03:45→19:42)
[2025-04-22 08:09] LABS: Hematocrit 22.7 % (41.0-53.0); Hemoglobin 7.9 g/dL (13.5-17.5); Mean Corpuscular Hemoglobin 33.4 pg (28.0-32.0); Mean Corpuscular Volume 96.2 fL (80.0-100.0); Nucleated Red Blood Cells % 0.1 %
--- NOTE | 2025-04-22 09:37 | DVHPN2 ---
Progress Note Date Seen: Apr 22, 2025 Medical Necessity Reason Pt with a Central, PICC or Fol: Yes The following are medically ne: Leung Catheter Subjective Patient reports: No new complaints Review of Systems: Deferred Objective vital signs Vital Sign Date Time Temp Pulse Resp B/P (MAP) Pulse Ox O2 Delivery O2 Flow Rate FiO2 04/22/25 09:08 97.6 80 14 122/66 (84) 98 97.6 04/21/25 20:00 Room Air* 0 21 Total Intake and Output 04/21/25 04/21/25 04/22/25 15:00 23:00 07:00 Intake Total 450 ml 100 ml Output Total 150 ml 650 ml Balance 300 ml -550 ml medications Current Medications Medications Dose Ordered Sig/Bandar Route Start Time Stop Time Status Last Admin Dose Admin Pantoprazole Sodium 40 mg DAILY PO 04/21/25 10:00 04/21/25 10:41 40 MG Diagnostic Test (Pha) 1 strip Q6HR 04/21/25 00:00 04/22/25 05:26 1 STRIP Insulin Human Regular Q6HR SC 04/21/25 00:00 04/22/25 05:52 3 UNITS Dextrose 50 ml UD PRN IV 04/20/25 21:00 Ceftriaxone Sodium 50 ml @ 100 mls/hr DAILY@09 IV 04/22/25 09:00 Enteral Nutritional Formula 240 ml TIDWM PO 04/21/25 18:00 04/21/25 18:05 240 ML Amlodipine Besylate 5 mg DAILY PO 04/22/25 10:00 Aspirin 81 mg DAILY PO 04/22/25 10:00 Carvedilol 12.5 mg BID PO 04/21/25 22:00 04/21/25 21:32 12.5 MG Furosemide 40 mg DAILY PO 04/22/25 10:00 Tamsulosin HCl 0.4 mg QPM PO 04/21/25 19:00 04/21/25 21:30 0.4 MG Atorvastatin Calcium 20 mg HS PO 04/21/25 22:00 04/21/25 21:30 20 MG Heparin Sodium/ Dextrose 250 ml @ 19 mls/hr [id number] IV 04/22/25 03:45 04/22/25 03:45 19 MLS/HR Examination: GENERAL:Normal, MSK:Abnormal, SKIN:Abnormal laboratory and microbiology Laboratory Tests 04/22/25 05:52 04/21/25 05:50 Test 04/21/25 05:50 Range/Units Serum Glucose 155 H 74-106 mg/dL Problem List/Assessment/Plan Problem List/Assessment/Plan Acute kidney injury on Chronic kidney disease four hemodynamic mediated etiology multifactorial in the setting of recent antibiotics, diuretics, chronic infection Bilateral feet ulcers/foot wounds Diabetes Anemia chf recs Gentle IV fluids Ns at 75 cc dc lasix for now Send urine for culture Currently has Leung We will follow renal function closely Plan discussed with: Patient My Orders My Orders Orders - SHANTANU BECK MD Procedure Category Date Status Time Basic Metabolic Panel LAB 04/22/25 Logged 09:33 Basic Metabolic Panel LAB 04/23/25 Verified 05:00 Basic Metabolic Panel LAB 04/24/25 Verified 05:00 Basic Metabolic Panel LAB 04/25/25 Verified 05:00 Basic Metabolic Panel LAB 04/26/25 Verified 05:00 Basic Metabolic Panel LAB 04/27/25 Verified 05:00 Basic Metabolic Panel LAB 04/28/25 Verified 05:00 Basic Metabolic Panel LAB 04/29/25 Verified 05:00 NS PHA 04/22/25 Verified 09:45 SHANTANU BECK MD Apr 22, 2025 09:37
[2025-04-22] MEDS: cefTRIAXone 1GM/50ML D5W 50 ML IV SCH (09:49)
[2025-04-22] MEDS: ASPirin-EC 81 mg tab PO SCH (09:50)
[2025-04-22] MEDS ORDERED: hydroCHLOROthiazide 25 MG TAB PO SCH (10:00)
[2025-04-22] MEDS ORDERED: FUROSEMIDE 40 MG TAB PO SCH (10:00)
[2025-04-22 11:11] LABS: Total Iron Binding Capacity 199.0 ug/dL (250-425)
[2025-04-22 11:16] LABS: Chloride 99 mmol/L (98-107); Potassium 3.8 mmol/L (3.5-5.1)
[2025-04-22 11:17] LABS: Anion Gap 10 (5-15); Carbon Dioxide 25 mmol/L (20-31)
[2025-04-22] MEDS: SODIUM CHLORIDE 0.9% 1,000 ML IV ONE (11:18)
[2025-04-22 11:19] LABS: Calcium 8.7 mg/dL (8.7-10.4); Sodium 134 mmol/L (136-145)
[2025-04-22 11:22] LABS: BUN/Creatinine Ratio 15.0 (10.0-20.0); Blood Urea Nitrogen 44 mg/dL (9-23); Glucose 189 mg/dL (74-106)
[2025-04-22 11:51] LABS: INR 1.12 (0.9-1.15); Partial Thromboplastin Time 61.4 SEC (24.5-34.5); Prothrombin Time 11.7 sec (9.3-11.8)
--- NOTE | 2025-04-22 12:53 | DVHCONRES ---
Date Seen: Apr 22, 2025 Reason for Consultation Left heel eschar History of Present Illness Osmel Page is a 74-year-old, with past medical history of DM type 2, diabetic ulcers, peripheral artery disease, hypertension and hyperlipidemia . The patient presented to the ED with chief complain of 1 day of generalized weakness, myalgias and nausea. He also reports 1 day without been able to void. The patient reports bilateral diabetic foot ulcer with poor healing, he was in a fpc and was discharge yesterday. The patient denies fever, chills, vomit, sick contacts or other symptoms. On initial evaluation the troponin are unremarkable, the CBC demonstrated microcytic hypochromic anemia likely due to CKDBMP revealed elevated BUN creatinine likely AD on superimposed CKD. The patient will be admitted for further evaluation and management. Past Medical History See H&P Past Surgical History See H&P Family History: Cerebrovascular accident (CVA) G8 MOTHER FH: CABG (coronary artery bypass surgery) G8 FATHER FH: liver disease G8 FATHER Hepatitis C G8 FATHER Allergies: Coded Allergies: NO KNOWN ALLERGIES (Unverified , 06/12/21) Home Meds Active Scripts Metronidazole (Flagyl) 500 Mg Tab, 500 MG PO TID for 42 Days, #126 TAB Prov:MARITZA FARRAR MD 03/04/25 Hydrocodone-Acetaminophen (Hydrocodone Bitartrate/AC 5-325 mg) 1 Tab Tab, 1 TAB PO BID PRN, #40 TAB Prov:ADARSH WILLIS MD 03/04/25 Rifampin (Rifampin) 300 Mg Cap, 300 MG PO BID, #90 CAP Prov:ADARSH WILLIS MD 03/04/25 Ciprofloxacin Hcl (Cipro) 500 Mg Tab, 1 TAB PO BID, #90 TAB Prov:ADARSH WILLIS MD 03/04/25 Doxycycline (Monohydrate) (Doxycycline) 100 Mg Cap, 100 MG PO BIDAC, #90 CAP Prov:ADARSH WILLIS MD 03/04/25 Reported Medications Hydrochlorothiazide (Hydrochlorothiazide) 25 Mg Tab, 50 MG PO DAILY for 14 Days, #14 04/11/25 Carvedilol (Carvedilol) 12.5 Mg Tab, 1 TAB PO BID for 14 Days, #28 04/11/25 Glipizide (Glipizide) 5 Mg Tab, 1 TAB PO BID for 14 Days, #28 04/11/25 Tamsulosin Hcl (Tamsulosin Hcl) 0.4 Mg Cap, 0.4 MG PO QPM for 30 Days, MG 02/24/25 Amlodipine Besylate (Amlodipine Besylate) 5 Mg Tab, 1 TAB PO DAILY 02/24/25 Furosemide (Furosemide) 40 Mg Tab, 1 TAB PO DAILY 02/24/25 Aspirin (Aspirin Adult Low Dose) 81 Mg Tab, 1 TAB PO DAILY 02/24/25 Calcium Carbonate-Cholecalcife (Calcium 500-10 mg-Mcg) 1 Chw Chw, 1 TAB PO BID 02/24/25 Atorvastatin Calcium (ATORVASTATIN CALCIUM) 10 Mg Tab, 10 MG PO DAILY, TAB 06/13/21 Metformin HCl (Metformin Hydrochloride) 500 Mg/5 Ml Gwendolyn, 500 MG PO, ML 06/13/21 Current Medications Current Medications Medications (Trade) Dose Ordered Sig/Bandar Route PRN Reason Start Time Stop Time Status Last Admin Ceftriaxone Sodium 50 ml @ 100 mls/hr DAILY@09 IV 04/22/25 09:00 04/22/25 09:49 Enteral Nutritional Formula (Glucerna Carbsteady SHAKE) 240 ml TIDWM PO 04/21/25 18:00 04/22/25 12:16 Amlodipine Besylate (Norvasc Tablet) 5 mg DAILY PO 04/22/25 10:00 04/22/25 09:50 Aspirin (Ecotrin Enteric Coated Tablet) 81 mg DAILY PO 04/22/25 10:00 04/22/25 09:50 Carvedilol (Coreg Tablet) 12.5 mg BID PO 04/21/25 22:00 04/22/25 09:49 Furosemide (Lasix Tablet) 40 mg DAILY PO 04/22/25 10:00 04/22/25 09:36 DC Hydrochlorothiazide (hydroCHLOROthiazide TABLET) 50 mg DAILY PO 04/22/25 10:00 04/21/25 18:50 DC Tamsulosin HCl (Flomax) 0.4 mg QPM PO 04/21/25 19:00 04/21/25 21:30 Atorvastatin Calcium (Lipitor) 20 mg HS PO 04/21/25 22:00 04/21/25 21:30 Heparin Sodium/ Dextrose 250 ml @ 17 mls/hr [id number] IV 04/21/25 20:30 04/22/25 03:34 DC 04/21/25 20:50 Heparin Sodium/ Dextrose 250 ml @ 19 mls/hr [id number] IV 04/22/25 03:45 04/22/25 12:05 Vital Signs Vital Signs Date Time Temp Pulse Resp B/P (MAP) Pulse Ox O2 Delivery O2 Flow Rate FiO2 04/22/25 09:50 122/66 04/22/25 09:49 80 04/22/25 09:08 97.6 14 98 97.6 04/21/25 20:00 Room Air* 0 21 Physical Exam Dermatological: Skin is dry with mild erythema and some maceration around the wound site No gross deformities noted Mild non-pitting edema present bilaterally Left heel eschar Right hallux incision healed Vascular: Dorsalis pedis and posterior tibial pulses are 1+ bilaterally Capillary refill is under 2 seconds Skin temperature is warm bilaterally Neurologic: Protective sensation is absent on the plantar forefoot bilaterally Monofilament testing reveals decreased sensation in multiple plantar sites Musculoskeletal: Range of motion at the ankle and MTP joints is within normal limits. Strength is 5/5 in all tested muscle groups. Gait is antalgic due to offloading of the affected limb. Labs/Diagnostic Data Labs Test 04/22/25 12:12 04/22/25 10:46 04/22/25 05:52 04/21/25 18:31 Range/Units POC Glucose 198 H 70-106 mg/dl Prothrombin Time 11.7 9.3-11.8 sec Prothrombin Time INR 1.12 0.9-1.15 Activated Partial Thromboplast Time 61.4 H 24.5-34.5 SEC Sodium Level 134 #L 136-145 mmol/L Potassium Level 3.8 3.5-5.1 mmol/L Chloride Level 99 98-107 mmol/L Carbon Dioxide Level 25 20-31 mmol/L Anion Gap 10 5-15 Blood Urea Nitrogen 44 H 9-23 mg/dL Creatinine 2.93 H 0.700-1.30 mg/dL Glomerular Filtration Rate Calc 22 >90 mL/min BUN/Creatinine Ratio 15.0 10.0-20.0 Serum Glucose 189 H 74-106 mg/dL Calcium Level 8.7 8.7-10.4 mg/dL White Blood Count 5.4 # 4.4-10.8 10^3/uL Red Blood Count 2.36 L 4.5-5.90 10^6/uL Hemoglobin 7.9 L 13.5-17.5 g/dL Hematocrit 22.7 L 41.0-53.0 % Mean Corpuscular Volume 96.2 80.0-100.0 fL Mean Corpuscular Hemoglobin 33.4 H 28.0-32.0 pg Mean Corpuscular Hemoglobin Concent 34.8 32.0-36.0 g/dL Red Cell Distribution Width 16.7 H 11.8-14.3 % Platelet Count 265 140-450 10^3/uL Mean Platelet Volume 7.2 6.9-10.8 fL Neutrophils (%) (Auto) 76.2 37.0-80.0 % Lymphocytes (%) (Auto) 11.2 10.0-50.0 % Monocytes (%) (Auto) 6.4 0.0-12.0 % Eosinophils (%) (Auto) 5.5 0.0-7.0 % Basophils (%) (Auto) 0.7 0.0-2.0 % Neutrophils # (Auto) 4.1 1.6-8.6 10 ^3/uL Lymphocytes # (Auto) 0.6 0.4-5.4 10 ^3/uL Monocytes # (Auto) 0.3 0-1.3 10 ^3/uL Eosinophils # (Auto) 0.3 0-0.8 10 ^3/uL Basophils # (Auto) 0 0-0.2 10 ^3/uL Nucleated Red Blood Cells 0.1 % Triglycerides Level 108 < 150 mg/dL Cholesterol Level 119 < 200 mg/dL LDL Cholesterol 73 < 100 mg/dL HDL Cholesterol 28 L 40-59 mg/dL Test 04/21/25 05:50 04/20/25 22:00 04/20/25 21:40 04/20/25 18:31 Range/Units Iron Level 24 L 65-175 ug/dL Total Iron Binding Capacity 199 L 250-425 ug/dL Percent Iron Saturation 12.1 L 20-55 % Ferritin 413.8 H 22-322 ng/mL Vitamin B12 Level 437 211-911 pg/mL Vitamin D 25-Hydroxy 30.9 30.0-100 ng/mL Parathyroid Hormone (Intact) 99.3 H 18.4-80.1 pg/mL Hemoglobin A1c 6.7 H <5.7 % A1C Urine Color Yellow Yellow Urine Clarity Ex.turbid Clear Urine pH 5.5 5.0-9.0 Urine Specific [place] 1.016 1.001-1.035 Urine Protein 1+ H Negative Urine Ketones 1+ H Negative Urine Blood 2+ H Negative /uL Urine Nitrite Negative Negative Urine Bilirubin Negative Negative Urine Urobilinogen 2 H Negative mg/dL Urine Leukocyte Esterase 3+ Negative /uL Urine RBC 37 0 - 3 /hpf Urine WBC Clumps Present None Seen /hpf Urine Microscopic WBC 542 H 0-3 /HPF Urine Squamous Epithelial Cells Few <5 /hpf Urine Bacteria None seen None Seen /hpf Urine Hyaline Casts Mod 0 - 2 /lpf Urine Yeast (Budding) Many None Seen /hpf Urine Glucose Normal Normal mg/dL Urine Opiates Screen Neg NEGATIVE Urine Fentanyl Screen Neg NEGATIVE Urine Barbiturates Screen Neg NEGATIVE Urine Phencyclidine Screen Neg NEGATIVE Urine Amphetamines Screen Neg NEGATIVE Urine Benzodiazepines Screen Neg NEGATIVE Urine Cocaine Screen Neg NEGATIVE Urine Cannabinoids Screen Neg NEGATIVE Influenza Type A Antigen Negative Negative Influenza Type B Antigen Negative Negative SARS-CoV-2 Antigen (Rapid) Negative NEGATIVE Lactic Acid Level 1.8 0.4-2.0 mmol/L Troponin I High Sensitivity 26 </=54 ng/L Test 04/20/25 17:21 Range/Units B-Type Natriuretic Peptide 66.65 0-100 pg/mL Microbiology Date/Time Source Procedure Growth Status 04/21/25 15:35 Voided Urine Urine Culture - Preliminary Resulted Problems(with codes): (1) Gravely disabled (2) Hypokalemia (3) Hyperkalemia (4) Azotemia (5) Urinary retention (6) Foot osteomyelitis, right (7) Near syncope (8) Autonomic dysfunction (9) Cyclical vomiting (10) Triple vessel coronary artery disease (11) Cholelithiasis (12) Eschar of heel (13) Generalized weakness (14) Peripheral vascular disease (15) Acute kidney injury superimposed on CKD Plan/Recommendation ASSESSMENT: Patient is a 74 year old seen on the floor for a worsening ulcer PLAN: - The patients chart was reviewed, clinical findings were discussed with the patient, the etiologies of the conditions were discussed in detail, and a treatment plan was agreed to at this time, with both oral and written instructions provided. - discussed that the heel continues to be stable - would not perform any surgery on it - keep offloading the heel - no advanced imaging recommended - can weightbear as tolerated in a postop shoe using a walker All questions were answered and concerns addressed to the patient's satisfaction. The patient was given the phone number to the clinic and was told how to make contact with the clinic should any concerns or questions arise. Patient understands that if any questions or concerns arise prior to the next appointment, we should be contacted immediately. FOLLOW-UP: Continue to follow while inpatient Plan discussed with: Patient Visit Coding Podiatry Date of Service if different f: Apr 22, 2025 Billing Provider: MENDOZA LEWIS DPM Podiatry Common Visit Codes: CONSULT ONLY Podiatry Consult Codes: 35601-PK/[id number] [id number] NEW/EST HI 80 MENDOZA LEWIS DPM Apr 22, 2025 12:53
[2025-04-22] MEDS: FLUCONAZOLE 100 MG TAB PO ONE (13:59)
--- NOTE | 2025-04-22 14:16 | DVHPNRES ---
Progress Note Date Seen: Apr 22, 2025 Resident Creating Document: LESLEY LICEA RESIDENT Medical Necessity Reason Pt with a Central, PICC or Fol: Yes The following are medically ne: Leung Catheter Subjective Review of Systems Osmel Page is a 74-year-old, with past medical history of DM type 2, diabetic ulcers, peripheral artery disease, Triple-vessel CAD, hypertension and hyperlipidemia . The patient presented to the ED with chief complain of 1 day of generalized weakness, myalgias and nausea. He also reports 1 day without been able to void. The patient reports bilateral diabetic foot ulcer with poor healing, he was in a usp and was discharge day before yesterday. The patient denies fever, chills, vomit, sick contacts or other symptoms. past medical history: CAD with triple-vessel block, HTN, hyperlipidemia, peripheral neuropathy, anemia, diabetes mellitus type 2 Past Surgical History: Tonsillectomy Family History: DM, Hypertension Smoke: No ALCOHOL: occassional Drugs: None Lives: with Family ROS: Patient was seen by me at the bedside. Overnight events were reviewed. Patient complains that he still feels weak and is unable to ambulate properly. He has no active complaints today. Nephrology was consulted and suggested Gentle IV fluids, Send urine for culture, Currently has Leung, We will follow renal function closely. Podiatry consultation, pending. 04/22/2024: Patient was seen by me at the bedside. Overnight events were reviewed. Podiatry and Nephrology on board. We are waiting for SNF placement suggested by physical therapist. Objective vital signs Vital Sign Date Time Temp Pulse Resp B/P (MAP) Pulse Ox O2 Delivery O2 Flow Rate FiO2 04/22/25 13:18 85 131/72 04/22/25 13:14 98.5 14 98 98.5 04/21/25 20:00 Room Air* 0 21 Total Intake and Output 04/21/25 04/21/25 04/22/25 15:00 23:00 07:00 Intake Total 450 ml 100 ml Output Total 150 ml 650 ml Balance 300 ml -550 ml medications Current Medications Medications Dose Ordered Sig/Bandar Route Start Time Stop Time Status Last Admin Dose Admin Pantoprazole Sodium 40 mg DAILY PO 04/21/25 10:00 04/22/25 09:50 40 MG Diagnostic Test (Pha) 1 strip Q6HR 04/21/25 00:00 04/22/25 12:15 1 STRIP Insulin Human Regular Q6HR SC 04/21/25 00:00 04/22/25 12:17 3 UNITS Dextrose 50 ml UD PRN IV 04/20/25 21:00 Ceftriaxone Sodium 50 ml @ 100 mls/hr DAILY@09 IV 04/22/25 09:00 04/22/25 09:49 100 MLS/HR Enteral Nutritional Formula 240 ml TIDWM PO 04/21/25 18:00 04/22/25 12:16 240 ML Amlodipine Besylate 5 mg DAILY PO 04/22/25 10:00 04/22/25 09:50 5 MG Aspirin 81 mg DAILY PO 04/22/25 10:00 04/22/25 09:50 81 MG Carvedilol 12.5 mg BID PO 04/21/25 22:00 04/22/25 09:49 12.5 MG Tamsulosin HCl 0.4 mg QPM PO 04/21/25 19:00 04/21/25 21:30 0.4 MG Atorvastatin Calcium 20 mg HS PO 04/21/25 22:00 04/21/25 21:30 20 MG Heparin Sodium/ Dextrose 250 ml @ 19 mls/hr [id number] IV 04/22/25 03:45 04/22/25 12:05 19 MLS/HR Fluconazole 200 mg DAILY PO 04/23/25 10:00 Examination General Appearance: Alert, Oriented X3, Cooperative, mild distress HEENT: Atraumatic, Other (Dry mucous membranes) Respiratory: Clear to auscultation, Normal air movement Cardiovascular: Regular rate, Normal S1, Normal S2, No murmurs Abdominal: Normal bowel sounds, Soft, No tenderness, No hepatospenomegaly Extremities: No clubbing, No cyanosis, Other (Bilateral lower leg edema up to the knees, pulses hard to palpate due to edema, disminished 2+/5+. Bilateral diabtetic ulcers, clean bases, small amount of serous secretions. eschar present on the left heel, left lateral feet. Amputation of the left hallux ) Skin: No rashes Neuro: Normal speech, Strength at 5/5 X4 ext, Normal tone, Other (Sensation disminished in bilateral foot and legs. ) laboratory and microbiology Laboratory Tests 04/22/25 10:46 04/22/25 05:52 Test 04/22/25 10:46 Range/Units Serum Glucose 189 H 74-106 mg/dL Microbiology Date/Time Source Procedure Growth Status 04/21/25 15:35 Voided Urine Urine Culture - Preliminary Resulted Labs and/or images reviewed: Labs reviewed by me, Image(s) reviewed by me Problem List/Assessment/Plan Problem List/Assessment/Plan #Generalized weakness possible dehydration. #Acute kidney injury on Chronic kidney disease four hemodynamic mediated etiology multifactorial in the setting of recent antibiotics, diuretics, chronic infection #Urinary retention #UTI, possible cystitis -IV fluids: NS -Crea 3.63 BUN47 -Avoid nephrotoxic drugs -Monitor Crea and BUN. -UA shows WBC 542, hyaline casts, budding cells, +1 ketone, +1 protein, 2+ blood urine, 2+ urine urobilinogen -Urinary culture, pending -Ceftriaxone 1g IV -Tamsulosin -Nephrology consult 04/21/25 suggested Gentle IV fluids, Send urine for culture, Currently has Leung, We will follow renal function closely -Nephrology consult 04/22/24 suggested: Gentle IV fluids Ns at 75 cc; dc lasix for now; Send urine for culture -Leung's out today 04/22 -bladder scan done which showed 111 mL #Hx Peripheral artery disease. #DVT -US Doppler; Positive for partially occlusive acute appearing DVT in the left popliteal vein. -Heparin drip #DM type 2 with hyperglycemia HbA1C 6.7 #Bilateral Diabetic Foot Ulcer -Wound consult -Sliding insulin scale -podiatry consulted suggested: discussed that the heel continues to be stable, would not perform any surgery on it; keep offloading the heel; no advanced imaging recommended; can weightbear as tolerated in a postop shoe using a walker #Essential hypertension -amlodipine 5 mg per orally daily #triple vessel cad -Continue carvedilol 12.5 mg p.o. b.i.d., aspirin 81 mg p.o. daily #Anemia of chronic disease -monitor H&H # hyperlipidemia -Atorvastatin 20 mg HS DVT prophylaxis: heparin drip continued Diet: diabetic diet Goals of care discussed with the patient for more than 27 minutes: Full code status Case discussed with Dr. Jaimes, patient and nurse. Plan discussed with: Patient, Other (rn) My Orders My Orders Orders - LESLEY LICEA RESIDENT Procedure Category Date Status Time Podiatry Consult CONS 8/14/25 Transmitted 18:31 Urine Bacterial EUGENIO 04/21/25 In Process Culture 19:13 Amlodipine Tablet PHA 04/22/25 In Process (Norvasc Tablet) 10:00 Aspirin Enteric PHA 04/22/25 In Process Coated Tablet 10:00 Carvedilol Tablet PHA 04/21/25 In Process (Coreg Tablet) 22:00 Tamsulosin PHA 04/21/25 In Process Hydrochloride (Flomax) 19:00 Atorvastatin (Lipitor) PHA 04/21/25 In Process 22:00 Date of Service: Apr 22, 2025 Billing Provider: KAYLIN JAIMES MD Common Visit Codes: [id number] INP/OBS CARE(HIGH) LESLEY LICEA RESIDENT Apr 22, 2025 14:16 KAYLIN JAIMES MD Apr 27, 2025 14:12
[2025-04-22 17:42] LABS: INR 1.15 (0.9-1.15); Partial Thromboplastin Time 49.0 SEC (24.5-34.5); Prothrombin Time 12.0 sec (9.3-11.8)
[2025-04-23 01:00] VITALS: BP 112/55; PULSE 86; RESP 16; TEMP 97.6; O2SAT 96
[2025-04-23 01:56] LABS: INR 1.36 (0.9-1.15); Prothrombin Time 14.0 sec (9.3-11.8)
[2025-04-23 01:59] LABS: Partial Thromboplastin Time > 139.0 SEC (24.5-34.5)
[2025-04-23] MEDS: HEPARIN DRIP/D5W 100UNITS/ML 250 ML IV SCH (03:15)
[2025-04-23 05:00] VITALS: BP 118/57; PULSE 79; RESP 16; TEMP 98.1; O2SAT 95
[2025-04-23 08:23] LABS: Chloride 101 mmol/L (98-107); Sodium 137 mmol/L (136-145)
[2025-04-23 08:24] LABS: Anion Gap 11 (5-15); Carbon Dioxide 25 mmol/L (20-31)
[2025-04-23 08:29] LABS: BUN/Creatinine Ratio 16.9 (10.0-20.0)
[2025-04-23 08:30] VITALS: BP 106/66; PULSE 81; RESP 16; TEMP 98.4; O2SAT 99
[2025-04-23 08:31] LABS: Blood Urea Nitrogen 42 mg/dL (9-23); Calcium 8.6 mg/dL (8.7-10.4); Glucose 130 mg/dL (74-106); Potassium 3.5 mmol/L (3.5-5.1)
[2025-04-23 08:34] LABS: Nucleated Red Blood Cells % 0.0 %
[2025-04-23 08:37] LABS: Hematocrit 21.7 % (41.0-53.0); Hemoglobin 7.6 g/dL (13.5-17.5); Mean Corpuscular Hemoglobin 33.1 pg (28.0-32.0); Mean Corpuscular Volume 95.1 fL (80.0-100.0)
--- NOTE | 2025-04-23 09:10 | DVHPN2 ---
Progress Note Date Seen: Apr 23, 2025 Medical Necessity Reason Pt with a Central, PICC or Fol: Yes The following are medically ne: Leung Catheter Subjective Patient reports: No new complaints Objective vital signs Vital Sign Date Time Temp Pulse Resp B/P (MAP) Pulse Ox O2 Delivery O2 Flow Rate FiO2 04/23/25 08:30 98.4 81 16 106/66 (79) 99 98.4 04/22/25 20:00 Room Air* 0 21 Total Intake and Output 04/22/25 04/22/25 04/23/25 15:00 23:00 07:00 Intake Total 787 ml 1387 ml 980 ml Output Total 102 ml 550 ml Balance 787 ml 1285 ml 430 ml medications Current Medications Medications Dose Ordered Sig/Bandar Route Start Time Stop Time Status Last Admin Dose Admin Pantoprazole Sodium 40 mg DAILY PO 04/21/25 10:00 04/22/25 09:50 40 MG Diagnostic Test (Pha) 1 strip Q6HR 04/21/25 00:00 04/23/25 06:00 1 STRIP Insulin Human Regular Q6HR SC 04/21/25 00:00 04/23/25 06:00 2 UNITS Dextrose 50 ml UD PRN IV 04/20/25 21:00 Ceftriaxone Sodium 50 ml @ 100 mls/hr DAILY@09 IV 04/22/25 09:00 04/22/25 09:49 100 MLS/HR Enteral Nutritional Formula 240 ml TIDWM PO 04/21/25 18:00 04/22/25 18:12 240 ML Amlodipine Besylate 5 mg DAILY PO 04/22/25 10:00 04/22/25 09:50 5 MG Aspirin 81 mg DAILY PO 04/22/25 10:00 04/22/25 09:50 81 MG Carvedilol 12.5 mg BID PO 04/21/25 22:00 04/22/25 21:37 12.5 MG Tamsulosin HCl 0.4 mg QPM PO 04/21/25 19:00 04/22/25 18:04 0.4 MG Atorvastatin Calcium 20 mg HS PO 04/21/25 22:00 04/22/25 21:37 20 MG Fluconazole 200 mg DAILY PO 04/23/25 10:00 Heparin Sodium/ Dextrose 250 ml @ 18 mls/hr [id number] IV 04/23/25 03:15 04/23/25 03:15 18 MLS/HR Examination: GENERAL:Normal, MSK:Abnormal, SKIN:Abnormal, NEURO:Normal laboratory and microbiology Laboratory Tests 04/23/25 07:55 Test 04/23/25 07:55 Range/Units Serum Glucose 130 H 74-106 mg/dL Microbiology Date/Time Source Procedure Growth Status 04/21/25 15:35 Voided Urine Urine Culture - Preliminary Resulted Problem List/Assessment/Plan Problem List/Assessment/Plan Acute kidney injury on Chronic kidney disease four hemodynamic mediated etiology multifactorial in the setting of recent antibiotics, diuretics, chronic infection Bilateral feet ulcers/foot wounds Diabetes Anemia chf UTI recs Gentle IV fluids Ns at 75 cc can stop tomorrow dc lasix for now Send urine for culture---yeast--diflucan Plan discussed with: Patient My Orders My Orders Orders - SHANTANU BECK MD Procedure Category Date Status Time Basic Metabolic Panel LAB 04/24/25 Verified 05:00 Basic Metabolic Panel LAB 04/25/25 Verified 05:00 Basic Metabolic Panel LAB 04/26/25 Verified 05:00 Basic Metabolic Panel LAB 04/27/25 Verified 05:00 Basic Metabolic Panel LAB 04/28/25 Verified 05:00 Basic Metabolic Panel LAB 04/29/25 Verified 05:00 Fluconazole Tablet PHA 04/23/25 In Process (Diflucan Tablet) 10:00 Fluconazole Tablet PHA 04/23/25 Verified (Diflucan Tablet) 10:00 Dietary Evaluation Review Comments: Nutrition Recommedation 1) CCHO 60gm + cardiac diet 2) Armen 1 pk daily 3) Refer Ndt Inspector for diabetes education 4) Monitor PO intake, lab values, weight trend, and I/O Expected Outcomes/Goals: Wound to improve Lab values to improve Fu 3-5 days SHANTANU BECK MD Apr 23, 2025 09:10
[2025-04-23] MEDS ORDERED: FLUCONAZOLE 100 MG TAB PO SCH (10:00)
[2025-04-23] MEDS: FLUCONAZOLE 100 MG TAB PO SCH (10:42)
[2025-04-23 13:41] VITALS: BP 143/71; PULSE 94; RESP 16; TEMP 97.5; O2SAT 99
--- NOTE | 2025-04-23 16:48 | DVHPNRES ---
Progress Note Date Seen: Apr 23, 2025 Resident Creating Document: LESLEY LICEA RESIDENT Medical Necessity Reason Pt with a Central, PICC or Fol: Yes The following are medically ne: Leung Catheter Subjective Review of Systems Osmel Page is a 74-year-old, with past medical history of DM type 2, diabetic ulcers, peripheral artery disease, Triple-vessel CAD, hypertension and hyperlipidemia . The patient presented to the ED with chief complain of 1 day of generalized weakness, myalgias and nausea. He also reports 1 day without been able to void. The patient reports bilateral diabetic foot ulcer with poor healing, he was in a long term and was discharge day before yesterday. The patient denies fever, chills, vomit, sick contacts or other symptoms. past medical history: CAD with triple-vessel block, HTN, hyperlipidemia, peripheral neuropathy, anemia, diabetes mellitus type 2 Past Surgical History: Tonsillectomy Family History: DM, Hypertension Smoke: No ALCOHOL: occassional Drugs: None Lives: with Family ROS: Patient was seen by me at the bedside. Overnight events were reviewed. Patient complains that he still feels weak and is unable to ambulate properly. He has no active complaints today. Nephrology was consulted and suggested Gentle IV fluids, Send urine for culture, Currently has Leung, We will follow renal function closely. Podiatry consultation, pending. 04/22/2025: Patient was seen by me at the bedside. Overnight events were reviewed. Podiatry and Nephrology on board. We are waiting for SNF placement suggested by physical therapist. 04/23/2025: Patient was seen at bedside. No new active complaints. Patient had a right lateral forearm and right lateral wrist tear for which Opti foam was applied. Patient can remember how the injury occurred. Patient appt was 139 at night on heparin, so the dose was decreased to 18 mL/hour. Urine culture preliminary shows more than [id number] CFU per mL yeast. Fluconazole 100 mg per orally was begun. Nephrology consult suggested discontinuation of Lasix, IV NS 75 cc/hour which can be stopped tomorrow. Midline started today as patient is bleeding quite easily due to the heparin drip and IV cannula changes difficult. We are waiting for SNF placement Objective vital signs Vital Sign Date Time Temp Pulse Resp B/P (MAP) Pulse Ox O2 Delivery O2 Flow Rate FiO2 04/23/25 13:41 97.5 94 16 143/71 (95) 99 97.5 04/23/25 13:02 Room Air* 0 21 Total Intake and Output 04/22/25 04/22/25 04/23/25 15:00 23:00 07:00 Intake Total 787 ml 1387 ml 980 ml Output Total 102 ml 550 ml Balance 787 ml 1285 ml 430 ml medications Current Medications Medications Dose Ordered Sig/Bandar Route Start Time Stop Time Status Last Admin Dose Admin Pantoprazole Sodium 40 mg DAILY PO 04/21/25 10:00 04/23/25 10:42 40 MG Diagnostic Test (Pha) 1 strip Q6HR 04/21/25 00:00 04/23/25 12:22 1 STRIP Insulin Human Regular Q6HR SC 04/21/25 00:00 04/23/25 12:21 3 UNITS Dextrose 50 ml UD PRN IV 04/20/25 21:00 Ceftriaxone Sodium 50 ml @ 100 mls/hr DAILY@09 IV 04/22/25 09:00 04/23/25 10:42 100 MLS/HR Enteral Nutritional Formula 240 ml TIDWM PO 04/21/25 18:00 04/23/25 12:22 240 ML Amlodipine Besylate 5 mg DAILY PO 04/22/25 10:00 04/23/25 10:42 5 MG Aspirin 81 mg DAILY PO 04/22/25 10:00 04/23/25 10:43 81 MG Carvedilol 12.5 mg BID PO 04/21/25 22:00 04/23/25 10:43 12.5 MG Tamsulosin HCl 0.4 mg QPM PO 04/21/25 19:00 04/22/25 18:04 0.4 MG Atorvastatin Calcium 20 mg HS PO 04/21/25 22:00 04/22/25 21:37 20 MG Heparin Sodium/ Dextrose 250 ml @ 18 mls/hr [id number] IV 04/23/25 03:15 04/23/25 03:15 18 MLS/HR Fluconazole 100 mg DAILY PO 04/23/25 10:00 04/30/25 09:59 04/23/25 10:42 100 MG Examination General Appearance: Alert, Oriented X3, Cooperative, mild distress HEENT: Atraumatic, Other (Dry mucous membranes) Respiratory: Clear to auscultation, Normal air movement Cardiovascular: Regular rate, Normal S1, Normal S2, No murmurs Abdominal: Normal bowel sounds, Soft, No tenderness, No hepatospenomegaly Extremities: No clubbing, No cyanosis, Other (Bilateral lower leg edema up to the knees, pulses hard to palpate due to edema, disminished 2+/5+. Bilateral diabtetic ulcers, clean bases, small amount of serous secretions. eschar present on the left heel, left lateral feet. Amputation of the left hallux ) Skin: No rashes Neuro: Normal speech, Strength at 5/5 X4 ext, Normal tone, Other (Sensation disminished in bilateral foot and legs. ) laboratory and microbiology Laboratory Tests 04/23/25 07:55 Test 04/23/25 07:55 Range/Units Serum Glucose 130 H 74-106 mg/dL Microbiology Date/Time Source Procedure Growth Status 04/21/25 15:35 Voided Urine Urine Culture - Preliminary Resulted Labs and/or images reviewed: Labs reviewed by me, Image(s) reviewed by me Problem List/Assessment/Plan Problem List/Assessment/Plan #Generalized weakness possible dehydration. #Acute kidney injury on Chronic kidney disease four hemodynamic mediated etiology multifactorial in the setting of recent antibiotics, diuretics, chronic infection #Urinary retention #UTI, possible cystitis -IV fluids: NS -Crea 3.63 BUN47 -Avoid nephrotoxic drugs -Monitor Crea and BUN. -UA shows WBC 542, hyaline casts, budding cells, +1 ketone, +1 protein, 2+ blood urine, 2+ urine urobilinogen -Urinary culture, preliminary report showed >100,000 CFU/mL Yeast -fluconazole 100 mg per orally daily begun -Ceftriaxone 1g IV -Tamsulosin 0.4 mg p.o. -Nephrology consult 04/21/25 suggested Gentle IV fluids, Send urine for culture, Currently has Leung, We will follow renal function closely -Nephrology consult 04/22/24 suggested: Gentle IV fluids Ns at 75 cc; dc lasix for now; Send urine for culture -Leung's out today 04/22 -bladder scan done which showed 111 mL -Nephrology consult 04/23 suggested: IV fluids 75 cc normal saline today and to be stopped tomorrow #Hx Peripheral artery disease. #DVT -US Doppler; Positive for partially occlusive acute appearing DVT in the left popliteal vein. -Heparin drip #DM type 2 with hyperglycemia HbA1C 6.7 #Bilateral Diabetic Foot Ulcer -Wound consult -Sliding insulin scale -podiatry consulted suggested: discussed that the heel continues to be stable, would not perform any surgery on it; keep offloading the heel; no advanced imaging recommended; can weightbear as tolerated in a postop shoe using a walker #Essential hypertension -amlodipine 5 mg per orally daily #triple vessel cad -Continue carvedilol 12.5 mg p.o. b.i.d., aspirin 81 mg p.o. daily #Anemia of chronic disease -monitor H&H # hyperlipidemia -Atorvastatin 20 mg HS DVT prophylaxis: heparin drip continued Diet: diabetic diet Goals of care discussed with the patient for more than 27 minutes: Full code status Case discussed with Dr. Jaimes, patient and nurse. Plan discussed with: Patient, Other (rn) My Orders My Orders Orders - LESLEY LICEA Procedure Category Date Status Time Complete Blood Count LAB 04/24/25 Verified 04:00 Basic Metabolic Panel LAB 04/24/25 Verified 04:00 PTPTT LAB 04/24/25 Verified 04:00 Insert Midline ORDERS 04/23/25 Transmitted 15:32 Dietary Evaluation Review Comments: Nutrition Recommedation 1) CCHO 60gm + cardiac diet 2) Armen 1 pk daily 3) Refer [employer] for diabetes education 4) Monitor PO intake, lab values, weight trend, and I/O Expected Outcomes/Goals: Wound to improve Lab values to improve Fu 3-5 days Date of Service: Apr 23, 2025 Billing Provider: KAYLIN JAIMES MD Common Visit Codes: [id number] INP/OBS CARE(HIGH) LESLEY LICEA Apr 23, 2025 16:48 KAYLIN JAIMES MD Apr 27, 2025 14:13
[2025-04-23 17:30] VITALS: BP 120/66; PULSE 85; RESP 18; TEMP 97.5; O2SAT 100
[2025-04-23 17:53] LABS: INR 1.43 (0.9-1.15); Prothrombin Time 14.6 sec (9.3-11.8)
[2025-04-23 17:56] LABS: Partial Thromboplastin Time 106.6 SEC (24.5-34.5)
--- NOTE | 2025-04-23 18:26 | CONS ---
Pharmacy Clinical Information: HEPARIN DRIP CURRENTLY ON HOLD PER DR KAYLIN JAIMES DUE TO PATIENT BLEEDING FROM EXISTING WOUNDS APTT OF 1700 = 106.6; IF/WHEN HEPARIN DRIP IS RESUMED, PLEASE LOWER RATE TO 1500 UNITS/HR PER RX PROTOCOL. KENNETH BRIDGES PHARMACIST Apr 23, 2025 18:26
[2025-04-23 21:00] VITALS: BP 148/66; PULSE 94; RESP 16; TEMP 97.7; O2SAT 98
[2025-04-24] VITALS (13 sets, daily range): BP systolic 101–145; BP diastolic 47–70; PULSE 78–94; RESP 12–18; TEMP 97.5–98.8; O2SAT 96–100
[2025-04-24 08:13] LABS: Hematocrit 15.6 % (41.0-53.0); Mean Corpuscular Hemoglobin 33.4 pg (28.0-32.0); Mean Corpuscular Volume 96.4 fL (80.0-100.0); Nucleated Red Blood Cells % 0.1 %
[2025-04-24 08:16] LABS: Hemoglobin 5.4 g/dL (13.5-17.5)
[2025-04-24 08:19] LABS: Anion Gap 11 (5-15); Carbon Dioxide 23 mmol/L (20-31); Chloride 100 mmol/L (98-107); Potassium 3.8 mmol/L (3.5-5.1)
[2025-04-24 08:25] LABS: BUN/Creatinine Ratio 18.3 (10.0-20.0)
[2025-04-24 08:26] LABS: Blood Urea Nitrogen 43 mg/dL (9-23); Calcium 8.5 mg/dL (8.7-10.4); Glucose 207 mg/dL (74-106); Sodium 134 mmol/L (136-145)
[2025-04-24 08:46] LABS: INR 1.19 (0.9-1.15); Prothrombin Time 12.4 sec (9.3-11.8)
[2025-04-24 09:04] LABS: Partial Thromboplastin Time > 139.0 SEC (24.5-34.5)
[2025-04-24] MEDS ORDERED: ONDANSETRON HCL 4 MG/2 ML VIAL IV PRN (11:00)
[2025-04-24] MEDS: ONDANSETRON HCL 4 MG/2 ML VIAL IV PRN (11:21)
--- NOTE | 2025-04-24 11:35 | DVHPNRES ---
Progress Note Date Seen: Apr 24, 2025 Resident Creating Document: KATHY DILLON RESIDENT Medical Necessity Reason Pt with a Central, PICC or Fol: Yes The following are medically ne: Leung Catheter Subjective Review of Systems Osmel Page is a 74-year-old, with past medical history of DM type 2, diabetic ulcers, peripheral artery disease, Triple-vessel CAD, hypertension and hyperlipidemia . The patient presented to the ED with chief complain of 1 day of generalized weakness, myalgias and nausea. He also reports 1 day without been able to void. The patient reports bilateral diabetic foot ulcer with poor healing, he was in a group home and was discharge day before yesterday. The patient denies fever, chills, vomit, sick contacts or other symptoms. past medical history: CAD with triple-vessel block, HTN, hyperlipidemia, peripheral neuropathy, anemia, diabetes mellitus type 2 Past Surgical History: Tonsillectomy Family History: DM, Hypertension Smoke: No ALCOHOL: occassional Drugs: None Lives: with Family ROS: Patient was seen by me at the bedside. Overnight events were reviewed. Patient complains that he still feels weak and is unable to ambulate properly. He has no active complaints today. Nephrology was consulted and suggested Gentle IV fluids, Send urine for culture, Currently has Leung, We will follow renal function closely. Podiatry consultation, pending. 04/22/2025: Patient was seen by me at the bedside. Overnight events were reviewed. Podiatry and Nephrology on board. We are waiting for SNF placement suggested by physical therapist. 04/23/2025: Patient was seen at bedside. No new active complaints. Patient had a right lateral forearm and right lateral wrist tear for which Opti foam was applied. Patient can remember how the injury occurred. Patient appt was 139 at night on heparin, so the dose was decreased to 18 mL/hour. Urine culture preliminary shows more than [id number] CFU per mL yeast. Fluconazole 100 mg per orally was begun. Nephrology consult suggested discontinuation of Lasix, IV NS 75 cc/hour which can be stopped tomorrow. Midline started today as patient is bleeding quite easily due to the heparin drip and IV cannula changes difficult. We are waiting for SNF placement. 04/24/2025 Patient seen at bedside. Patient is alert x3, in mild distress, states he is feeling nauseous and has been having dry heaves, for which Zofran 4 mg IV q.6 PRN was given. Patient has a PTT was 139.0. heparin drip was stopped. Today patient's hemoglobin was 5.4 for which 2 units of PRBC and 1 unit of frozen plasma was ordered. Repeat H&H was ordered. Objective vital signs Vital Sign Date Time Temp Pulse Resp B/P (MAP) Pulse Ox O2 Delivery O2 Flow Rate FiO2 04/24/25 09:00 97.6 78 17 129/60 (83) 100 97.6 04/24/25 08:00 Room Air* 0 21 Total Intake and Output 04/23/25 04/23/25 04/24/25 15:00 23:00 07:00 Intake Total 450 ml 1400 ml 0 ml Output Total 200 ml Balance 450 ml 1400 ml -200 ml medications Current Medications Medications Dose Ordered Sig/Bandar Route Start Time Stop Time Status Last Admin Dose Admin Pantoprazole Sodium 40 mg DAILY PO 04/21/25 10:00 04/23/25 10:42 40 MG Diagnostic Test (Pha) 1 strip Q6HR 04/21/25 00:00 04/24/25 05:20 1 STRIP Insulin Human Regular Q6HR SC 04/21/25 00:00 04/24/25 05:48 6 UNITS Dextrose 50 ml UD PRN IV 04/20/25 21:00 Ceftriaxone Sodium 50 ml @ 100 mls/hr DAILY@09 IV 04/22/25 09:00 04/23/25 10:42 100 MLS/HR Enteral Nutritional Formula 240 ml TIDWM PO 04/21/25 18:00 04/24/25 09:14 240 ML Amlodipine Besylate 5 mg DAILY PO 04/22/25 10:00 04/23/25 10:42 5 MG Aspirin 81 mg DAILY PO 04/22/25 10:00 04/23/25 10:43 81 MG Carvedilol 12.5 mg BID PO 04/21/25 22:00 04/23/25 21:31 12.5 MG Tamsulosin HCl 0.4 mg QPM PO 04/21/25 19:00 04/23/25 17:59 0.4 MG Atorvastatin Calcium 20 mg HS PO 04/21/25 22:00 04/23/25 21:30 20 MG Heparin Sodium/ Dextrose 250 ml @ 18 mls/hr [id number] IV 04/23/25 03:15 Hold 04/23/25 03:15 18 MLS/HR Fluconazole 100 mg DAILY PO 04/23/25 10:00 04/30/25 09:59 04/23/25 10:42 100 MG Ondansetron HCl 4 mg Q6HPRN PRN IV 04/24/25 10:45 04/24/25 11:21 4 MG Ondansetron HCl 4 mg Q6HPRN PRN IV 04/24/25 11:00 UNV Examination General: Patient alert and oriented in person, place and time. Patient following commands. Appears pale HEENT: Normocephalic, atraumatic, dry mucous membranes Respiratory/pulmonary: Clear lungs bilaterally, vesicular murmurs present in almost all lung murguia, no associated crackles or wheezes. Cardiovascular: Normal heart sounds S1 and S2 with no associated murmurs Abdomen: Abdomen nondistended, there is no pain to palpation in any of the abdominal quadrants, no palpable masses. Extremities: There is no peripheral edema present at the lower extremities. (B ilateral lower leg edema up to the knees, pulses hard to palpate due to edema, disminished 2+/5+. Bilateral diabtetic ulcers, clean bases, small amount of serous secretions. eschar present on the left heel, left lateral feet. Amputation of the left hallux ) Peripheral Pulses: 3+ Radial (R). 3+ Radial (L). 3+ Dorsalis pedis (R). 3+ Dorsalis pedis(L) Skin: No rashes or pruritus, there is no sacral edema present at this time. Neurological: Intact cranial nerves with no focal neurologic deficits (Sensation disminished in bilateral foot and legs. ) laboratory and microbiology Laboratory Tests 04/24/25 07:32 Test 04/24/25 07:32 Range/Units Serum Glucose 207 H 74-106 mg/dL Microbiology Date/Time Source Procedure Growth Status 04/21/25 15:35 Voided Urine Urine Culture - Preliminary Resulted Problem List/Assessment/Plan Problem List/Assessment/Plan #Generalized weakness possible dehydration. #Acute kidney injury on Chronic kidney disease four hemodynamic mediated etiology multifactorial in the setting of recent antibiotics, diuretics, chronic infection #Urinary retention #UTI, possible cystitis -IV fluids: NS -Crea 3.63 BUN47 -Avoid nephrotoxic drugs -Monitor Crea and BUN. -UA shows WBC 542, hyaline casts, budding cells, +1 ketone, +1 protein, 2+ blood urine, 2+ urine urobilinogen -Urinary culture, preliminary report showed >100,000 CFU/mL Yeast -fluconazole 100 mg per orally daily begun -Ceftriaxone 1g IV -Tamsulosin 0.4 mg p.o. -Nephrology consult 04/21/25 suggested Gentle IV fluids, Send urine for culture, Currently has Leung, We will follow renal function closely -Nephrology consult 04/22/25 suggested: Gentle IV fluids Ns at 75 cc; dc lasix for now; Send urine for culture -Leung's out today 04/22 -bladder scan done which showed 111 mL -Nephrology consult 04/23 suggested: IV fluids 75 cc normal saline today and to be stopped tomorrow #Hx Peripheral artery disease. #DVT -US Doppler; Positive for partially occlusive acute appearing DVT in the left popliteal vein. - APTT on 04/24/25- >139 -Heparin drip was stopped on 04/24/25 #DM type 2 with hyperglycemia HbA1C 6.7 #Bilateral Diabetic Foot Ulcer -Wound consult -Sliding insulin scale -podiatry consulted suggested: discussed that the heel continues to be stable, would not perform any surgery on it; keep offloading the heel; no advanced imaging recommended; can weight bear as tolerated in a postop shoe using a walker #Essential hypertension -amlodipine 5 mg per orally daily #triple vessel cad -Continue carvedilol 12.5 mg p.o. b.i.d., aspirin 81 mg p.o. daily #Anemia of chronic disease -monitor H&H - 04/24/2025 hemoglobin was 5.4, patient received 2 units of PRBC, 1 unit of frozen plasma # hyperlipidemia -Atorvastatin 20 mg HS DVT prophylaxis: heparin drip continued Diet: diabetic diet Goals of care discussed with the patient for more than 27 minutes: Full code status Case discussed with Dr. Jaimes, patient and nurse. Plan discussed with: Patient My Orders My Orders Orders - KATHY DILLON RESIDENT Procedure Category Date Status Time Ondansetron Hcl PHA 04/24/25 In Process (Zofran) 10:45 Frozen Plasma BBK 04/24/25 Logged 10:46 Dietary Evaluation Review Comments: Nutrition Recommedation 1) CCHO 60gm + cardiac diet 2) Armen 1 pk daily 3) Refer [employer] for diabetes education 4) Monitor PO intake, lab values, weight trend, and I/O Expected Outcomes/Goals: Wound to improve Lab values to improve Fu 3-5 days Date of Service: Apr 24, 2025 Billing Provider: KAYLIN JAIMES MD Common Visit Codes: [id number] INP/OBS CARE(HIGH) KATHY DILLON RESIDENT Apr 24, 2025 11:35 KAYLIN JAIMES MD Apr 27, 2025 14:14
--- NOTE | 2025-04-24 12:12 | DVHPN2 ---
Progress Note Date Seen: Apr 24, 2025 Medical Necessity Reason Pt with a Central, PICC or Fol: Yes The following are medically ne: Leung Catheter Subjective Patient reports: Other Objective vital signs Vital Sign Date Time Temp Pulse Resp B/P (MAP) Pulse Ox O2 Delivery O2 Flow Rate FiO2 04/24/25 09:00 97.6 78 17 129/60 (83) 100 97.6 04/24/25 08:00 Room Air* 0 21 Total Intake and Output 04/23/25 04/23/25 04/24/25 15:00 23:00 07:00 Intake Total 450 ml 1400 ml 0 ml Output Total 200 ml Balance 450 ml 1400 ml -200 ml medications Current Medications Medications Dose Ordered Sig/Bandar Route Start Time Stop Time Status Last Admin Dose Admin Pantoprazole Sodium 40 mg DAILY PO 04/21/25 10:00 04/23/25 10:42 40 MG Diagnostic Test (Pha) 1 strip Q6HR 04/21/25 00:00 04/24/25 11:45 1 STRIP Insulin Human Regular Q6HR SC 04/21/25 00:00 04/24/25 05:48 6 UNITS Dextrose 50 ml UD PRN IV 04/20/25 21:00 Ceftriaxone Sodium 50 ml @ 100 mls/hr DAILY@09 IV 04/22/25 09:00 04/23/25 10:42 100 MLS/HR Enteral Nutritional Formula 240 ml TIDWM PO 04/21/25 18:00 04/24/25 09:14 240 ML Amlodipine Besylate 5 mg DAILY PO 04/22/25 10:00 04/23/25 10:42 5 MG Aspirin 81 mg DAILY PO 04/22/25 10:00 04/23/25 10:43 81 MG Carvedilol 12.5 mg BID PO 04/21/25 22:00 04/23/25 21:31 12.5 MG Tamsulosin HCl 0.4 mg QPM PO 04/21/25 19:00 04/23/25 17:59 0.4 MG Atorvastatin Calcium 20 mg HS PO 04/21/25 22:00 04/23/25 21:30 20 MG Heparin Sodium/ Dextrose 250 ml @ 18 mls/hr [id number] IV 04/23/25 03:15 Hold 04/23/25 03:15 18 MLS/HR Fluconazole 100 mg DAILY PO 04/23/25 10:00 04/30/25 09:59 04/23/25 10:42 100 MG Ondansetron HCl 4 mg Q6HPRN PRN IV 04/24/25 10:45 04/24/25 11:21 4 MG Ondansetron HCl 4 mg Q6HPRN PRN IV 04/24/25 11:00 UNV Examination: GENERAL:Normal, MSK:Abnormal, SKIN:Abnormal, NEURO:Normal laboratory and microbiology Laboratory Tests 04/24/25 07:32 Test 04/24/25 07:32 Range/Units Serum Glucose 207 H 74-106 mg/dL Microbiology Date/Time Source Procedure Growth Status 04/21/25 15:35 Voided Urine Urine Culture - Preliminary Resulted Problem List/Assessment/Plan Problem List/Assessment/Plan Acute kidney injury on Chronic kidney disease four hemodynamic mediated etiology multifactorial in the setting of recent antibiotics, diuretics, chronic infection Bilateral feet ulcers/foot wounds DVT Diabetes Anemia chf UTI recs dc ivf,,getting prbc ,,hb drop sec to heparin drip better renal function Plan discussed with: Patient Dietary Evaluation Review Comments: Nutrition Recommedation 1) CCHO 60gm + cardiac diet 2) Armen 1 pk daily 3) Refer [employer] for diabetes education 4) Monitor PO intake, lab values, weight trend, and I/O Expected Outcomes/Goals: Wound to improve Lab values to improve Fu 3-5 days SHANTANU BECK MD Apr 24, 2025 12:11
[2025-04-24 22:19] LABS: Hematocrit 26.2 % (41.0-53.0); Hemoglobin 9.1 g/dL (13.5-17.5); Mean Corpuscular Hemoglobin 32.2 pg (28.0-32.0); Mean Corpuscular Volume 92.7 fL (80.0-100.0); Nucleated Red Blood Cells % 0.0 %
[2025-04-25] VITALS (11 sets, daily range): BP systolic 122–142; BP diastolic 50–72; PULSE 71–89; RESP 16–20; TEMP 97.7–98.2; O2SAT 94–99
[2025-04-25 08:07] LABS: Hematocrit 24.4 % (41.0-53.0); Hemoglobin 8.7 g/dL (13.5-17.5); Mean Corpuscular Hemoglobin 32.9 pg (28.0-32.0); Mean Corpuscular Volume 92.1 fL (80.0-100.0); Nucleated Red Blood Cells % 0.2 %
[2025-04-25 08:08] LABS: Anion Gap 12 (5-15); Carbon Dioxide 24 mmol/L (20-31); Chloride 101 mmol/L (98-107); Sodium 137 mmol/L (136-145)
[2025-04-25 08:09] LABS: Calcium 9.3 mg/dL (8.7-10.4)
[2025-04-25 08:14] LABS: BUN/Creatinine Ratio 17.7 (10.0-20.0); Blood Urea Nitrogen 37 mg/dL (9-23); Glucose 175 mg/dL (74-106); Potassium 3.5 mmol/L (3.5-5.1)
[2025-04-25] MEDS: LINEZOLID 600MG/300ML 300 ML IV SCH (10:16)
--- NOTE | 2025-04-25 10:56 | DVHPN2 ---
Progress Note Date Seen: Apr 25, 2025 Medical Necessity Reason Pt with a Central, PICC or Fol: Yes The following are medically ne: Leung Catheter Objective vital signs Vital Sign Date Time Temp Pulse Resp B/P (MAP) Pulse Ox O2 Delivery O2 Flow Rate FiO2 04/25/25 10:16 139/59 04/25/25 10:15 86 04/25/25 09:00 98.0 17 95 98.0 04/24/25 20:00 Room Air* 0 21 Total Intake and Output 04/24/25 04/24/25 04/25/25 14:59 22:59 06:59 Intake Total 550 ml 894 ml Output Total 600 ml 400 ml Balance -50 ml 494 ml medications Current Medications Medications Dose Ordered Sig/Bandar Route Start Time Stop Time Status Last Admin Dose Admin Pantoprazole Sodium 40 mg DAILY PO 04/21/25 10:00 04/25/25 10:11 40 MG Diagnostic Test (Pha) 1 strip Q6HR 04/21/25 00:00 04/25/25 06:08 1 STRIP Insulin Human Regular Q6HR SC 04/21/25 00:00 04/24/25 05:48 6 UNITS Dextrose 50 ml UD PRN IV 04/20/25 21:00 Enteral Nutritional Formula 240 ml TIDWM PO 04/21/25 18:00 04/25/25 08:00 240 ML Amlodipine Besylate 5 mg DAILY PO 04/22/25 10:00 04/25/25 10:16 5 MG Aspirin 81 mg DAILY PO 04/22/25 10:00 04/25/25 10:12 81 MG Carvedilol 12.5 mg BID PO 04/21/25 22:00 04/25/25 10:15 12.5 MG Tamsulosin HCl 0.4 mg QPM PO 04/21/25 19:00 04/23/25 17:59 0.4 MG Atorvastatin Calcium 20 mg HS PO 04/21/25 22:00 04/24/25 21:58 20 MG Heparin Sodium/ Dextrose 250 ml @ 18 mls/hr [id number] IV 04/23/25 03:15 Hold 04/23/25 03:15 18 MLS/HR Fluconazole 100 mg DAILY PO 04/23/25 10:00 04/30/25 09:59 04/25/25 10:11 100 MG Ondansetron HCl 4 mg Q6HPRN PRN IV 04/24/25 10:45 04/24/25 11:21 4 MG Ondansetron HCl 4 mg Q6HPRN PRN IV 04/24/25 11:00 UNV Linezolid 300 ml @ 150 mls/hr Q12HR IV 04/25/25 10:00 04/25/25 10:16 150 MLS/HR laboratory and microbiology Laboratory Tests 04/25/25 06:37 Test 04/25/25 06:37 Range/Units Serum Glucose 175 H 74-106 mg/dL Microbiology Date/Time Source Procedure Growth Status 04/21/25 15:35 Voided Urine Urine Culture - Final Yeast, not Dulce albicans Complete Problem List/Assessment/Plan Problem List/Assessment/Plan Acute kidney injury on Chronic kidney disease four hemodynamic mediated etiology multifactorial in the setting of recent antibiotics, diuretics, chronic infection Bilateral feet ulcers/foot wounds Diabetes Anemia chf UTI will start epogen tomorrow ABX avoid hypotension Plan discussed with: Patient Dietary Evaluation Review Comments: Nutrition Recommedation 1) CCHO 60gm + cardiac diet 2) Armen 1 pk daily 3) Refer Telemark[employer] for diabetes education 4) Monitor PO intake, lab values, weight trend, and I/O Expected Outcomes/Goals: Wound to improve Lab values to improve Fu 3-5 days ALEJANDRO IRVING MD Apr 25, 2025 10:56
[2025-04-25 12:16] LABS: INR 1.05 (0.9-1.15); Partial Thromboplastin Time 28.9 SEC (24.5-34.5); Prothrombin Time 11.1 sec (9.3-11.8)
--- NOTE | 2025-04-25 15:56 | DVHPNRES ---
Progress Note Date Seen: Apr 25, 2025 Resident Creating Document: LESLEY LICEA RESIDENT Medical Necessity Reason Pt with a Central, PICC or Fol: Yes The following are medically ne: PICC Line, Leung Catheter Subjective Review of Systems Osmel Page is a 74-year-old, with past medical history of DM type 2, diabetic ulcers, peripheral artery disease, Triple-vessel CAD, hypertension and hyperlipidemia . The patient presented to the ED with chief complain of 1 day of generalized weakness, myalgias and nausea. He also reports 1 day without been able to void. The patient reports bilateral diabetic foot ulcer with poor healing, he was in a [facility] and was discharge day before yesterday. The patient denies fever, chills, vomit, sick contacts or other symptoms. past medical history: CAD with triple-vessel block, HTN, hyperlipidemia, peripheral neuropathy, anemia, diabetes mellitus type 2 Past Surgical History: Tonsillectomy Family History: DM, Hypertension Smoke: No ALCOHOL: occassional Drugs: None Lives: with Family ROS: Patient was seen by me at the bedside. Overnight events were reviewed. Patient complains that he still feels weak and is unable to ambulate properly. He has no active complaints today. Nephrology was consulted and suggested Gentle IV fluids, Send urine for culture, Currently has Leung, We will follow renal function closely. Podiatry consultation, pending. 04/22/2025: Patient was seen by me at the bedside. Overnight events were reviewed. Podiatry and Nephrology on board. We are waiting for SNF placement suggested by physical therapist. 04/23/2025: Patient was seen at bedside. No new active complaints. Patient had a right lateral forearm and right lateral wrist tear for which Opti foam was applied. Patient can remember how the injury occurred. Patient appt was 139 at night on heparin, so the dose was decreased to 18 mL/hour. Urine culture preliminary shows more than [id number] CFU per mL yeast. Fluconazole 100 mg per orally was begun. Nephrology consult suggested discontinuation of Lasix, IV NS 75 cc/hour which can be stopped tomorrow. Midline started today as patient is bleeding quite easily due to the heparin drip and IV cannula changes difficult. We are waiting for SNF placement. 04/24/2025 Patient seen at bedside. Patient is alert x3, in mild distress, states he is feeling nauseous and has been having dry heaves, for which Zofran 4 mg IV q.6 PRN was given. Patient has a PTT was 139.0. heparin drip was stopped. Today patient's hemoglobin was 5.4 for which 2 units of PRBC and 1 unit of frozen plasma was ordered. Repeat H&H was ordered. 04/25/25: Patient was seen at bedside. No new active complaints. Hemoglobin came to 9.1 yesterday and 8.7 today. Patient reports feeling better. Linezolid started and ceftriaxone stopped according to urinary cultures which shows sensitivity to linezolid. Urine culture also shows Enterococcus faecium and yeast, not Jace. Nephrology consult suggests epogen starting from tomorrow. We will give Eliquis renal dose from tomorrow. PT on board, wound care done daily. Waiting for SNF placement Objective vital signs Vital Sign Date Time Temp Pulse Resp B/P (MAP) Pulse Ox O2 Delivery O2 Flow Rate FiO2 04/25/25 10:16 139/59 04/25/25 10:15 86 04/25/25 09:00 98.0 17 95 98.0 04/25/25 08:00 Room Air* 0 21 Total Intake and Output 04/24/25 04/24/25 04/25/25 15:00 23:00 07:00 Intake Total 550 ml 894 ml Output Total 600 ml 400 ml Balance -50 ml 494 ml medications Current Medications Medications Dose Ordered Sig/Bandar Route Start Time Stop Time Status Last Admin Dose Admin Pantoprazole Sodium 40 mg DAILY PO 04/21/25 10:00 04/25/25 10:11 40 MG Diagnostic Test (Pha) 1 strip Q6HR 04/21/25 00:00 04/25/25 12:21 1 STRIP Insulin Human Regular Q6HR SC 04/21/25 00:00 04/25/25 12:19 9 UNITS Dextrose 50 ml UD PRN IV 04/20/25 21:00 Enteral Nutritional Formula 240 ml TIDWM PO 04/21/25 18:00 04/25/25 12:21 240 ML Amlodipine Besylate 5 mg DAILY PO 04/22/25 10:00 04/25/25 10:16 5 MG Aspirin 81 mg DAILY PO 04/22/25 10:00 04/25/25 10:12 81 MG Carvedilol 12.5 mg BID PO 04/21/25 22:00 04/25/25 10:15 12.5 MG Tamsulosin HCl 0.4 mg QPM PO 04/21/25 19:00 04/23/25 17:59 0.4 MG Atorvastatin Calcium 20 mg HS PO 04/21/25 22:00 04/24/25 21:58 20 MG Heparin Sodium/ Dextrose 250 ml @ 18 mls/hr [id number] IV 04/23/25 03:15 Hold 04/23/25 03:15 18 MLS/HR Fluconazole 100 mg DAILY PO 04/23/25 10:00 04/30/25 09:59 04/25/25 10:11 100 MG Ondansetron HCl 4 mg Q6HPRN PRN IV 04/24/25 10:45 04/24/25 11:21 4 MG Ondansetron HCl 4 mg Q6HPRN PRN IV 04/24/25 11:00 UNV Linezolid 300 ml @ 150 mls/hr Q12HR IV 04/25/25 10:00 04/25/25 10:16 150 MLS/HR Examination General: Patient alert and oriented in person, place and time. Patient following commands. Appears pale HEENT: Normocephalic, atraumatic, dry mucous membranes Respiratory/pulmonary: Clear lungs bilaterally, vesicular murmurs present in almost all lung murguia, no associated crackles or wheezes. Cardiovascular: Normal heart sounds S1 and S2 with no associated murmurs Abdomen: Abdomen nondistended, there is no pain to palpation in any of the abdominal quadrants, no palpable masses. Extremities: There is no peripheral edema present at the lower extremities. (Bilateral lower leg edema up to the knees, pulses hard to palpate due to edema, disminished 2+/5+. Bilateral diabtetic ulcers, clean bases, small amount of serous secretions. eschar present on the left heel, left lateral feet. Amputation of the left hallux ) Peripheral Pulses: 3+ Radial (R). 3+ Radial (L). 3+ Dorsalis pedis (R). 3+ Dorsalis pedis(L) Skin: No rashes or pruritus, sacral ulcer present since admission stage 2 ulcer, midline placed, purple bruising in multiple sites of both arms Neurological: Intact cranial nerves with no focal neurologic deficits (Sensation disminished in bilateral foot and legs. ) laboratory and microbiology Laboratory Tests 04/25/25 06:37 Test 04/25/25 06:37 Range/Units Serum Glucose 175 H 74-106 mg/dL Microbiology Date/Time Source Procedure Growth Status 04/21/25 15:35 Voided Urine Urine Culture - Final Yeast, not Jace albicans Complete Labs and/or images reviewed: Labs reviewed by me, Image(s) reviewed by me Problem List/Assessment/Plan Problem List/Assessment/Plan #Generalized weakness possible dehydration. #Acute kidney injury on Chronic kidney disease four hemodynamic mediated etiology multifactorial in the setting of recent antibiotics, diuretics, chronic infection #Urinary retention #UTI, possible cystitis -IV fluids: NS -Crea 3.63 BUN47 -Avoid nephrotoxic drugs -Monitor Crea and BUN. -UA shows WBC 542, hyaline casts, budding cells, +1 ketone, +1 protein, 2+ blood urine, 2+ urine urobilinogen -Urinary culture, preliminary report showed >100,000 CFU/mL Yeast -fluconazole 100 mg per orally daily begun -Ceftriaxone 1g IV stopped on 04/25 and linezolid begun according to urine culture sensitivity, shows enterococcus faecium and yeast, non jace -Tamsulosin 0.4 mg p.o. -Nephrology consult 04/21/25 suggested Gentle IV fluids, Send urine for culture, Currently has Madhu, We will follow renal function closely -Nephrology consult 04/22/25 suggested: Gentle IV fluids Ns at 75 cc; dc lasix for now; Send urine for culture -Leung's out today 04/22 -bladder scan done which showed 111 mL -Nephrology consult 04/23 suggested: IV fluids 75 cc normal saline today and to be stopped tomorrow -nephrology consult on 04/25 suggested epogen from [facility] 04/26 #Hx Peripheral artery disease. #DVT of left popliteal vein in left leg -US Doppler; Positive for partially occlusive acute appearing DVT in the left popliteal vein. - APTT on 04/24/25- >139 -Heparin drip was stopped on 04/24/25 - elliquis from [facility], renal dose #DM type 2 with hyperglycemia HbA1C 6.7 #Bilateral Diabetic Foot Ulcer -Wound consult -Sliding insulin scale -podiatry consulted suggested: discussed that the heel continues to be stable, would not perform any surgery on it; keep offloading the heel; no advanced imaging recommended; can weight bear as tolerated in a postop shoe using a walker #Essential hypertension -amlodipine 5 mg per orally daily #triple vessel cad -Continue carvedilol 12.5 mg p.o. b.i.d., aspirin 81 mg p.o. daily #Anemia of chronic disease -monitor H&H - 04/24/2025 hemoglobin was 5.4, patient received 2 units of PRBC, 1 unit of frozen plasma # hyperlipidemia -Atorvastatin 20 mg HS #sacral decubitis ulcer stage 2 present on admission -wound care daily DVT prophylaxis: heparin drip continued Diet: diabetic diet Goals of care discussed with the patient for more than 27 minutes: Full code status Case discussed with Dr. Narayan, patient and nurse. Plan discussed with: Patient, Other (rn) Dietary Evaluation Review Comments: Nutrition Recommedation 1) CCHO 60gm + cardiac diet 2) Armen 1 pk daily 3) Refer [employer] for diabetes education 4) Monitor PO intake, lab values, weight trend, and I/O Expected Outcomes/Goals: Wound to improve Lab values to improve Fu 3-5 days Date of Service: Apr 25, 2025 Billing Provider: SHWETA CONRAD MD Common Visit Codes: [id number] INP/OBS CARE(HIGH) LESLEY LICEA RESIDENT Apr 25, 2025 15:56 SHWETA CONRAD MD Apr 27, 2025 00:22
[2025-04-26] VITALS (8 sets, daily range): BP systolic 113–147; BP diastolic 54–79; PULSE 70–87; RESP 14–18; TEMP 97.8–98.2; O2SAT 96–100
[2025-04-26 07:42] LABS: Chloride 101 mmol/L (98-107); Potassium 3.8 mmol/L (3.5-5.1); Sodium 136 mmol/L (136-145)
[2025-04-26 07:43] LABS: Anion Gap 10 (5-15); Carbon Dioxide 25 mmol/L (20-31)
[2025-04-26 07:44] LABS: Calcium 8.8 mg/dL (8.7-10.4)
[2025-04-26 07:47] LABS: INR 1.03 (0.9-1.15); Partial Thromboplastin Time 26.8 SEC (24.5-34.5); Prothrombin Time 10.9 sec (9.3-11.8)
[2025-04-26 07:48] LABS: Glucose 96 mg/dL (74-106)
[2025-04-26 07:49] LABS: BUN/Creatinine Ratio 14.7 (10.0-20.0)
[2025-04-26 08:02] LABS: Hemoglobin 8.3 g/dL (13.5-17.5)
[2025-04-26 08:04] LABS: Hematocrit 24.4 % (41.0-53.0); Mean Corpuscular Hemoglobin 32.0 pg (28.0-32.0); Mean Corpuscular Volume 94.3 fL (80.0-100.0)
[2025-04-26 08:09] LABS: Blood Urea Nitrogen 31 mg/dL (9-23)
[2025-04-26 09:09] LABS: Anisocytosis Slight; Nucleated Red Blood Cells % 1.0 %; Total Cells Counted 100.0 (100)
--- NOTE | 2025-04-26 09:26 | DVHPN2 ---
Progress Note Date Seen: Apr 26, 2025 Medical Necessity Reason Pt with a Central, PICC or Fol: Yes The following are medically ne: PICC Line, Leung Catheter Objective vital signs Vital Sign Date Time Temp Pulse Resp B/P (MAP) Pulse Ox O2 Delivery O2 Flow Rate FiO2 04/26/25 09:16 87 144/79 04/26/25 05:00 98.2 18 98 98.2 04/25/25 20:00 Room Air* 0 21 Total Intake and Output 04/25/25 04/25/25 04/26/25 15:00 23:00 07:00 Intake Total 300 ml 711 ml 580 ml Output Total 380 ml Balance 300 ml 331 ml 580 ml medications Current Medications Medications Dose Ordered Sig/Bandar Route Start Time Stop Time Status Last Admin Dose Admin Pantoprazole Sodium 40 mg DAILY PO 04/21/25 10:00 04/26/25 09:17 40 MG Diagnostic Test (Pha) 1 strip Q6HR 04/21/25 00:00 04/26/25 05:44 1 STRIP Insulin Human Regular Q6HR SC 04/21/25 00:00 04/25/25 23:29 9 UNITS Dextrose 50 ml UD PRN IV 04/20/25 21:00 Enteral Nutritional Formula 240 ml TIDWM PO 04/21/25 18:00 04/26/25 09:17 240 ML Amlodipine Besylate 5 mg DAILY PO 04/22/25 10:00 04/26/25 09:16 5 MG Aspirin 81 mg DAILY PO 04/22/25 10:00 04/26/25 09:16 81 MG Carvedilol 12.5 mg BID PO 04/21/25 22:00 04/26/25 09:16 12.5 MG Tamsulosin HCl 0.4 mg QPM PO 04/21/25 19:00 04/25/25 18:19 0.4 MG Atorvastatin Calcium 20 mg HS PO 04/21/25 22:00 04/25/25 21:45 20 MG Heparin Sodium/ Dextrose 250 ml @ 18 mls/hr [id number] IV 04/23/25 03:15 Hold 04/23/25 03:15 18 MLS/HR Fluconazole 100 mg DAILY PO 04/23/25 10:00 04/30/25 09:59 04/26/25 09:16 100 MG Ondansetron HCl 4 mg Q6HPRN PRN IV 04/24/25 10:45 04/24/25 11:21 4 MG Ondansetron HCl 4 mg Q6HPRN PRN IV 04/24/25 11:00 UNV Linezolid 300 ml @ 150 mls/hr Q12HR IV 04/25/25 10:00 04/26/25 09:15 150 MLS/HR Apixaban 10 mg BID PO 04/26/25 10:00 05/03/25 09:59 UNV Apixaban 5 mg BID PO 04/26/25 10:00 UNV Examination: GENERAL:Abnormal, CVS:Normal, SKIN:Normal laboratory and microbiology Laboratory Tests 04/26/25 06:56 Test 04/26/25 06:56 Range/Units Serum Glucose 96 74-106 mg/dL Microbiology Date/Time Source Procedure Growth Status 04/21/25 15:35 Voided Urine Urine Culture - Final Yeast, not Dulce albicans Complete Problem List/Assessment/Plan Problem List/Assessment/Plan Acute kidney injury on Chronic kidney disease four hemodynamic mediated etiology multifactorial in the setting of recent antibiotics, diuretics, chronic infection Bilateral feet ulcers/foot wounds Diabetes Anemia chf UTI will start epogen tomorrow ABX avoid hypotension Plan discussed with: Patient My Orders My Orders Orders - ALEJANDRO IRVING MD Procedure Category Date Status Time Hemoglobin LAB 04/27/25 Verified 05:00 Hematocrit LAB 04/27/25 Verified 05:00 Iron Panel LAB 04/27/25 Verified 05:00 Transferrin LAB 04/27/25 Verified 05:00 Ferritin LAB 04/27/25 Verified 05:00 Retacrit 10,000unit PHA 04/26/25 Transmitted [facility] 10:00 Dietary Evaluation Review Comments: Nutrition Recommedation 1) CCHO 60gm + cardiac diet 2) Armen 1 pk daily 3) Refer [employer] for diabetes education 4) Monitor PO intake, lab values, weight trend, and I/O Expected Outcomes/Goals: Wound to improve Lab values to improve Fu 3-5 days ALEJANDRO IRVING MD Apr 26, 2025 09:26
[2025-04-26] MEDS: APIXABAN 5 MG TAB PO SCH (12:06)
--- NOTE | 2025-04-26 15:47 | DVHPNRES ---
Progress Note Date Seen: Apr 26, 2025 Resident Creating Document: LESLEY LICEA RESIDENT Medical Necessity Reason Pt with a Central, PICC or Fol: Yes The following are medically ne: PICC Line, Leung Catheter Subjective Review of Systems Osmel Page is a 74-year-old, with past medical history of DM type 2, diabetic ulcers, peripheral artery disease, Triple-vessel CAD, hypertension and hyperlipidemia . The patient presented to the ED with chief complain of 1 day of generalized weakness, myalgias and nausea. He also reports 1 day without been able to void. The patient reports bilateral diabetic foot ulcer with poor healing, he was in a [facility] and was discharge day before yesterday. The patient denies fever, chills, vomit, sick contacts or other symptoms. past medical history: CAD with triple-vessel block, HTN, hyperlipidemia, peripheral neuropathy, anemia, diabetes mellitus type 2 Past Surgical History: Tonsillectomy Family History: DM, Hypertension Smoke: No ALCOHOL: occassional Drugs: None Lives: with Family ROS: Patient was seen by me at the bedside. Overnight events were reviewed. Patient complains that he still feels weak and is unable to ambulate properly. He has no active complaints today. Nephrology was consulted and suggested Gentle IV fluids, Send urine for culture, Currently has Leung, We will follow renal function closely. Podiatry consultation, pending. 04/22/2025: Patient was seen by me at the bedside. Overnight events were reviewed. Podiatry and Nephrology on board. We are waiting for SNF placement suggested by physical therapist. 04/23/2025: Patient was seen at bedside. No new active complaints. Patient had a right lateral forearm and right lateral wrist tear for which Opti foam was applied. Patient can remember how the injury occurred. Patient appt was 139 at night on heparin, so the dose was decreased to 18 mL/hour. Urine culture preliminary shows more than [id number] CFU per mL yeast. Fluconazole 100 mg per orally was begun. Nephrology consult suggested discontinuation of Lasix, IV NS 75 cc/hour which can be stopped tomorrow. Midline started today as patient is bleeding quite easily due to the heparin drip and IV cannula changes difficult. We are waiting for SNF placement. 04/24/2025 Patient seen at bedside. Patient is alert x3, in mild distress, states he is feeling nauseous and has been having dry heaves, for which Zofran 4 mg IV q.6 PRN was given. Patient has a PTT was 139.0. heparin drip was stopped. Today patient's hemoglobin was 5.4 for which 2 units of PRBC and 1 unit of frozen plasma was ordered. Repeat H&H was ordered. 04/25/25: Patient was seen at bedside. No new active complaints. Hemoglobin came to 9.1 yesterday and 8.7 today. Patient reports feeling better. Linezolid started and ceftriaxone stopped according to urinary cultures which shows sensitivity to linezolid. Urine culture also shows Enterococcus faecium and yeast, not Jace. Nephrology consult suggests Neupogen starting from tomorrow. We will give Eliquis renal dose from tomorrow. PT on board, wound care done daily. Waiting for SNF placement 04/26/2025: Patient was seen at the bedside. No new active complaints. Epogen 64742 units started today, Eliquis 10 mg per orally b.i.d. begun today for DVT. professional services consultant consulted regarding home health with PT. Objective vital signs Vital Sign Date Time Temp Pulse Resp B/P (MAP) Pulse Ox O2 Delivery O2 Flow Rate FiO2 04/26/25 13:00 98.0 82 16 138/70 (92) 97 98.0 04/26/25 07:45 Room Air* 0 21 Total Intake and Output 04/25/25 04/25/25 04/26/25 15:00 23:00 07:00 Intake Total 300 ml 711 ml 580 ml Output Total 380 ml Balance 300 ml 331 ml 580 ml medications Current Medications Medications Dose Ordered Sig/Bandar Route Start Time Stop Time Status Last Admin Dose Admin Pantoprazole Sodium 40 mg DAILY PO 04/21/25 10:00 04/26/25 09:17 40 MG Diagnostic Test (Pha) 1 strip Q6HR 04/21/25 00:00 04/26/25 12:07 1 STRIP Insulin Human Regular Q6HR SC 04/21/25 00:00 04/26/25 12:05 12 UNITS Dextrose 50 ml UD PRN IV 04/20/25 21:00 Enteral Nutritional Formula 240 ml TIDWM PO 04/21/25 18:00 04/26/25 12:07 240 ML Amlodipine Besylate 5 mg DAILY PO 04/22/25 10:00 04/26/25 09:16 5 MG Aspirin 81 mg DAILY PO 04/22/25 10:00 04/26/25 09:16 81 MG Carvedilol 12.5 mg BID PO 04/21/25 22:00 04/26/25 09:16 12.5 MG Tamsulosin HCl 0.4 mg QPM PO 04/21/25 19:00 04/25/25 18:19 0.4 MG Atorvastatin Calcium 20 mg HS PO 04/21/25 22:00 04/25/25 21:45 20 MG Heparin Sodium/ Dextrose 250 ml @ 18 mls/hr [id number] IV 04/23/25 03:15 Hold 04/23/25 03:15 18 MLS/HR Fluconazole 100 mg DAILY PO 04/23/25 10:00 04/30/25 09:59 04/26/25 09:16 100 MG Ondansetron HCl 4 mg Q6HPRN PRN IV 04/24/25 10:45 04/24/25 11:21 4 MG Ondansetron HCl 4 mg Q6HPRN PRN IV 04/24/25 11:00 UNV Linezolid 300 ml @ 150 mls/hr Q12HR IV 04/25/25 10:00 04/26/25 09:15 150 MLS/HR Apixaban 10 mg BID PO 04/26/25 10:00 05/03/25 09:59 04/26/25 12:06 10 MG Apixaban 5 mg BID PO 05/04/25 10:00 Epoetin Norm-epbx 10,000 unit TUTHSA@2100 SC 04/26/25 21:00 Examination General: Patient alert and oriented in person, place and time. Patient following commands. Appears pale HEENT: Normocephalic, atraumatic, dry mucous membranes Respiratory/pulmonary: Clear lungs bilaterally, vesicular murmurs present in almost all lung murguia, no associated crackles or wheezes. Cardiovascular: Normal heart sounds S1 and S2 with no associated murmurs Abdomen: Abdomen nondistended, there is no pain to palpation in any of the abdominal quadrants, no palpable masses. Extremities: There is no peripheral edema present at the lower extremities. (Bilateral lower leg edema up to the knees, pulses hard to palpate due to edema, disminished 2+/5+. Bilateral diabtetic ulcers, clean bases, small amount of serous secretions. eschar present on the left heel, left lateral feet. Amputation of the left hallux ) Peripheral Pulses: 3+ Radial (R). 3+ Radial (L). 3+ Dorsalis pedis (R). 3+ Dorsalis pedis(L) Skin: No rashes or pruritus, sacral ulcer present since admission stage 2 ulcer Neurological: Intact cranial nerves with no focal neurologic deficits (Sensation disminished in bilateral foot and legs. ) laboratory and microbiology Laboratory Tests 04/26/25 06:56 Test 04/26/25 06:56 Range/Units Serum Glucose 96 74-106 mg/dL Microbiology Date/Time Source Procedure Growth Status 04/21/25 15:35 Voided Urine Urine Culture - Final Yeast, not Jace albicans Complete Labs and/or images reviewed: Labs reviewed by me, Image(s) reviewed by me Problem List/Assessment/Plan Problem List/Assessment/Plan #Generalized weakness possible dehydration. #Acute kidney injury on Chronic kidney disease stage IV hemodynamic mediated etiology multifactorial in the setting of recent antibiotics, diuretics, chronic infection #Urinary retention #UTI, possible cystitis -IV fluids: NS -Crea 3.63 BUN47 -Avoid nephrotoxic drugs -Monitor Crea and BUN. -UA shows WBC 542, hyaline casts, budding cells, +1 ketone, +1 protein, 2+ blood urine, 2+ urine urobilinogen -Urinary culture, preliminary report showed >100,000 CFU/mL Yeast -fluconazole 100 mg per orally daily begun -Ceftriaxone 1g IV stopped on 04/25 and linezolid begun according to urine culture sensitivity, shows enterococcus faecium and yeast, non jace -Tamsulosin 0.4 mg p.o. -Nephrology consult 04/21/25 suggested Gentle IV fluids, Send urine for culture, Currently has Madhu, We will follow renal function closely -Nephrology consult 04/22/25 suggested: Gentle IV fluids Ns at 75 cc; dc lasix for now; Send urine for culture -Leung's out today 04/22 -bladder scan done which showed 111 mL -Nephrology consult 04/23 suggested: IV fluids 75 cc normal saline today and to be stopped tomorrow -nephrology consult on 04/25 suggested epogen from [facility] 04/26 -Epogen 68482 units ( 1 vial) started from today 8/19 #Hx Peripheral artery disease. #DVT of left popliteal vein in left leg -US Doppler; Positive for partially occlusive acute appearing DVT in the left popliteal vein. - APTT on 04/24/25- >139 -Heparin drip was stopped on 04/24/25 - elliquis 10 mg b.i.d. per orally, started from today 04/26 #DM type 2 with hyperglycemia HbA1C 6.7 #Bilateral Diabetic Foot Ulcer -Wound consult -Sliding insulin scale -podiatry consulted suggested: discussed that the heel continues to be stable, would not perform any surgery on it; keep offloading the heel; no advanced imaging recommended; can weight bear as tolerated in a postop shoe using a walker #Essential hypertension -amlodipine 5 mg per orally daily #triple vessel cad -Continue carvedilol 12.5 mg p.o. b.i.d., aspirin 81 mg p.o. daily #Anemia of chronic disease -monitor H&H - 04/24/2025 hemoglobin was 5.4, patient received 2 units of PRBC, 1 unit of frozen plasma # hyperlipidemia -Atorvastatin 20 mg HS #sacral decubitis ulcer stage 2 present on admission -wound care daily DVT prophylaxis: heparin drip continued Diet: diabetic diet Goals of care discussed with the patient for more than 27 minutes: Full code status Case discussed with Dr. Narayan, patient and nurse. Plan discussed with: Patient, Other (rn) My Orders My Orders Orders - LESLEY LICEA Procedure Category Date Status Time Apixaban (Eliquis) PHA 04/26/25 In Process 10:00 Apixaban (Eliquis) PHA 05/04/25 In Process 10:00 Dietary Evaluation Review Comments: Nutrition Recommedation 1) CCHO 60gm + cardiac diet 2) Armen 1 pk daily 3) Refer [employer] for diabetes education 4) Monitor PO intake, lab values, weight trend, and I/O Expected Outcomes/Goals: Wound to improve Lab values to improve Fu 3-5 days Date of Service: Apr 26, 2025 Billing Provider: SHWETA CONRAD MD Common Visit Codes: [id number] INP/OBS CARE(HIGH) LESLEY LICEA Apr 26, 2025 15:47 SHWETA CONRAD MD Apr 27, 2025 00:53
[2025-04-26] MEDS: EPOETIN ALFA-EPBX 10,000 UNIT/1ML VIAL SC SCH (21:50)
[2025-04-27] VITALS (8 sets, daily range): BP systolic 130–152; BP diastolic 55–83; PULSE 74–84; RESP 16–18; TEMP 97.9–98.5; O2SAT 96–100
[2025-04-27 08:12] LABS: Anion Gap 10 (5-15); Carbon Dioxide 26 mmol/L (20-31); Chloride 100 mmol/L (98-107); Potassium 3.9 mmol/L (3.5-5.1); Sodium 136 mmol/L (136-145)
[2025-04-27 08:14] LABS: Calcium 8.9 mg/dL (8.7-10.4)
[2025-04-27 08:15] LABS: Hematocrit 25.7 % (41.0-53.0); Hemoglobin 8.9 g/dL (13.5-17.5); Mean Corpuscular Hemoglobin 32.3 pg (28.0-32.0); Mean Corpuscular Volume 92.9 fL (80.0-100.0); Nucleated Red Blood Cells % 0.0 %
[2025-04-27 08:19] LABS: BUN/Creatinine Ratio 20.9 (10.0-20.0)
[2025-04-27 08:20] LABS: Blood Urea Nitrogen 41 mg/dL (9-23); Glucose 116 mg/dL (74-106)
[2025-04-27 08:28] LABS: Iron 47.0 ug/dL (65-175); Total Iron Binding Capacity 213.0 ug/dL (250-425)
--- NOTE | 2025-04-27 15:05 | DVHPN2 ---
Progress Note Date Seen: Apr 27, 2025 Medical Necessity Reason Pt with a Central, PICC or Fol: No Subjective Changes from previous H/P or p: No Changes Review of Systems: Deferred Objective vital signs Vital Sign Date Time Temp Pulse Resp B/P (MAP) Pulse Ox O2 Delivery O2 Flow Rate FiO2 04/27/25 13:00 76 138/62 04/27/25 13:00 97.9 16 98 97.9 04/26/25 20:00 Room Air* 0 21 Total Intake and Output 04/26/25 04/26/25 04/27/25 15:00 23:00 07:00 Intake Total 300 ml 450 ml 800 ml Output Total 300 ml 600 ml Balance 300 ml 150 ml 200 ml medications Current Medications Medications Dose Ordered Sig/Bandar Route Start Time Stop Time Status Last Admin Dose Admin Pantoprazole Sodium 40 mg DAILY PO 04/21/25 10:00 04/27/25 10:49 40 MG Diagnostic Test (Pha) 1 strip Q6HR 04/21/25 00:00 04/27/25 11:56 1 STRIP Insulin Human Regular Q6HR SC 04/21/25 00:00 04/27/25 11:58 6 UNITS Dextrose 50 ml UD PRN IV 04/20/25 21:00 Enteral Nutritional Formula 240 ml TIDWM PO 04/21/25 18:00 04/27/25 12:27 240 ML Amlodipine Besylate 5 mg DAILY PO 04/22/25 10:00 04/27/25 10:49 5 MG Aspirin 81 mg DAILY PO 04/22/25 10:00 04/27/25 10:49 81 MG Carvedilol 12.5 mg BID PO 04/21/25 22:00 04/27/25 10:48 12.5 MG Tamsulosin HCl 0.4 mg QPM PO 04/21/25 19:00 04/26/25 18:19 0.4 MG Atorvastatin Calcium 20 mg HS PO 04/21/25 22:00 04/26/25 21:50 20 MG Fluconazole 100 mg DAILY PO 04/23/25 10:00 04/30/25 09:59 04/27/25 10:49 100 MG Ondansetron HCl 4 mg Q6HPRN PRN IV 04/24/25 10:45 04/24/25 11:21 4 MG Ondansetron HCl 4 mg Q6HPRN PRN IV 04/24/25 11:00 UNV Linezolid 300 ml @ 150 mls/hr Q12HR IV 04/25/25 10:00 04/27/25 10:49 150 MLS/HR Apixaban 10 mg BID PO 04/26/25 10:00 05/03/25 09:59 04/27/25 10:48 10 MG Apixaban 5 mg BID PO 05/04/25 10:00 Epoetin Norm-epbx 10,000 unit TUTHSA@2100 CT 04/26/25 21:00 04/26/25 21:50 10,000 UNIT Examination: GENERAL:Abnormal, CVS:Normal, SKIN:Abnormal laboratory and microbiology Laboratory Tests 04/27/25 07:16 Test 04/27/25 07:16 Range/Units Serum Glucose 116 H 74-106 mg/dL Microbiology Date/Time Source Procedure Growth Status 04/21/25 15:35 Voided Urine Urine Culture - Final Yeast, not Dulce albicans Complete Problem List/Assessment/Plan Problem List/Assessment/Plan Acute kidney injury on Chronic kidney disease 3b hemodynamic mediated etiology multifactorial in the setting of recent antibiotics, diuretics, chronic infection Bilateral feet ulcers/foot wounds Diabetes Anemia chf UTI renal function is now approaching is outpatient baseline of stage 3 epogen 3x a week ABX avoid hypotension pending SNF Plan discussed with: Patient Dietary Evaluation Review Comments: Nutrition Recommedation 1) CCHO 60gm + cardiac diet 2) Armen 1 pk daily 3) Refer Show Jumping Instructor for diabetes education 4) Monitor PO intake, lab values, weight trend, and I/O Expected Outcomes/Goals: Wound to improve Lab values to improve Fu 3-5 days Total Time (mins): 33 ALEJANDRO IRVING MD Apr 27, 2025 15:05
--- NOTE | 2025-04-27 19:48 | DVHPNRES ---
Progress Note Date Seen: Apr 27, 2025 Resident Creating Document: LESLEY LICEA RESIDENT Medical Necessity Reason Pt with a Central, PICC or Fol: No Subjective Review of Systems Osmel Page is a 74-year-old, with past medical history of DM type 2, diabetic ulcers, peripheral artery disease, Triple-vessel CAD, hypertension and hyperlipidemia . The patient presented to the ED with chief complain of 1 day of generalized weakness, myalgias and nausea. He also reports 1 day without been able to void. The patient reports bilateral diabetic foot ulcer with poor healing, he was in a ch[facility] and was discharge day before yesterday. The patient denies fever, chills, vomit, sick contacts or other symptoms. past medical history: CAD with triple-vessel block, HTN, hyperlipidemia, peripheral neuropathy, anemia, diabetes mellitus type 2 Past Surgical History: Tonsillectomy Family History: DM, Hypertension Smoke: No ALCOHOL: occassional Drugs: None Lives: with Family ROS: Patient was seen by me at the bedside. Overnight events were reviewed. Patient complains that he still feels weak and is unable to ambulate properly. He has no active complaints today. Nephrology was consulted and suggested Gentle IV fluids, Send urine for culture, Currently has Madhu, We will follow renal function closely. Podiatry consultation, pending. 04/22/2025: Patient was seen by me at the bedside. Overnight events were reviewed. Podiatry and Nephrology on board. We are waiting for SNF placement suggested by physical therapist. 04/23/2025: Patient was seen at bedside. No new active complaints. Patient had a right lateral forearm and right lateral wrist tear for which Opti foam was applied. Patient can remember how the injury occurred. Patient appt was 139 at night on heparin, so the dose was decreased to 18 mL/hour. Urine culture preliminary shows more than [id number] CFU per mL yeast. Fluconazole 100 mg per orally was begun. Nephrology consult suggested discontinuation of Lasix, IV NS 75 cc/hour which can be stopped tomorrow. Midline started today as patient is bleeding quite easily due to the heparin drip and IV cannula changes difficult. We are waiting for SNF placement. 04/24/2025 Patient seen at bedside. Patient is alert x3, in mild distress, states he is feeling nauseous and has been having dry heaves, for which Zofran 4 mg IV q.6 PRN was given. Patient has a PTT was 139.0. heparin drip was stopped. Today patient's hemoglobin was 5.4 for which 2 units of PRBC and 1 unit of frozen plasma was ordered. Repeat H&H was ordered. 04/25/25: Patient was seen at bedside. No new active complaints. Hemoglobin came to 9.1 yesterday and 8.7 today. Patient reports feeling better. Linezolid started and ceftriaxone stopped according to urinary cultures which shows sensitivity to linezolid. Urine culture also shows Enterococcus faecium and yeast, not Jace. Nephrology consult suggests Neupogen starting from tomorrow. We will give Eliquis renal dose from tomorrow. PT on board, wound care done daily. Waiting for SNF placement 04/26/2025: Patient was seen at the bedside. No new active complaints. Epogen 95389 units started today, Eliquis 10 mg per orally b.i.d. begun today for DVT. services program manager consulted regarding home health with PT. 04/27/2025: Patient was seen at the bedside. No new active complaints. We are waiting for manager social to find home health with PT. Objective vital signs Vital Sign Date Time Temp Pulse Resp B/P (MAP) Pulse Ox O2 Delivery O2 Flow Rate FiO2 04/27/25 17:00 98.0 80 17 142/73 (96) 100 98.0 04/26/25 20:00 Room Air* 0 21 Total Intake and Output 04/26/25 04/26/25 04/27/25 15:00 23:00 07:00 Intake Total 300 ml 450 ml 800 ml Output Total 300 ml 600 ml Balance 300 ml 150 ml 200 ml medications Current Medications Medications Dose Ordered Sig/Bandar Route Start Time Stop Time Status Last Admin Dose Admin Pantoprazole Sodium 40 mg DAILY PO 04/21/25 10:00 04/27/25 10:49 40 MG Diagnostic Test (Pha) 1 strip Q6HR 04/21/25 00:00 04/27/25 18:41 1 STRIP Insulin Human Regular Q6HR SC 04/21/25 00:00 04/27/25 18:46 3 UNITS Dextrose 50 ml UD PRN IV 04/20/25 21:00 Enteral Nutritional Formula 240 ml TIDWM PO 04/21/25 18:00 04/27/25 18:41 240 ML Amlodipine Besylate 5 mg DAILY PO 04/22/25 10:00 04/27/25 10:49 5 MG Aspirin 81 mg DAILY PO 04/22/25 10:00 04/27/25 10:49 81 MG Carvedilol 12.5 mg BID PO 04/21/25 22:00 04/27/25 10:48 12.5 MG Tamsulosin HCl 0.4 mg QPM PO 04/21/25 19:00 04/27/25 18:46 0.4 MG Atorvastatin Calcium 20 mg HS PO 04/21/25 22:00 04/26/25 21:50 20 MG Fluconazole 100 mg DAILY PO 04/23/25 10:00 04/30/25 09:59 04/27/25 10:49 100 MG Ondansetron HCl 4 mg Q6HPRN PRN IV 04/24/25 10:45 04/24/25 11:21 4 MG Ondansetron HCl 4 mg Q6HPRN PRN IV 04/24/25 11:00 UNV Linezolid 300 ml @ 150 mls/hr Q12HR IV 04/25/25 10:00 04/27/25 10:49 150 MLS/HR Apixaban 10 mg BID PO 04/26/25 10:00 05/03/25 09:59 04/27/25 10:48 10 MG Apixaban 5 mg BID PO 05/04/25 10:00 Epoetin Norm-epbx 10,000 unit TUTHSA@2100 SC 04/26/25 21:00 04/26/25 21:50 10,000 UNIT Examination General: Patient alert and oriented in person, place and time. Patient following commands. Appears pale HEENT: Normocephalic, atraumatic, dry mucous membranes Respiratory/pulmonary: Clear lungs bilaterally, vesicular murmurs present in almost all lung murguia, no associated crackles or wheezes. Cardiovascular: Normal heart sounds S1 and S2 with no associated murmurs Abdomen: Abdomen nondistended, there is no pain to palpation in any of the abdominal quadrants, no palpable masses. Extremities: There is no peripheral edema present at the lower extremities. (Bilateral lower leg edema up to the knees, pulses hard to palpate due to edema, disminished 2+/5+. Bilateral diabtetic ulcers, clean bases, small amount of serous secretions. eschar present on the left heel, left lateral feet. Amputation of the left hallux ) Peripheral Pulses: 3+ Radial (R). 3+ Radial (L). 3+ Dorsalis pedis (R). 3+ Dorsalis pedis(L) Skin: No rashes or pruritus, sacral ulcer present since admission stage 2 ulcer Neurological: Intact cranial nerves with no focal neurologic deficits (Sensation disminished in bilateral foot and legs. ) laboratory and microbiology Laboratory Tests 04/27/25 07:16 Test 04/27/25 07:16 Range/Units Serum Glucose 116 H 74-106 mg/dL Microbiology Date/Time Source Procedure Growth Status 04/21/25 15:35 Voided Urine Urine Culture - Final Yeast, not Jace albicans Complete Labs and/or images reviewed: Labs reviewed by me, Image(s) reviewed by me Problem List/Assessment/Plan Problem List/Assessment/Plan #Generalized weakness possible dehydration. #Acute kidney injury on Chronic kidney disease stage IV hemodynamic mediated etiology multifactorial in the setting of recent antibiotics, diuretics, chronic infection #Urinary retention #UTI, possible cystitis -IV fluids: NS -Crea 3.63 BUN47 -Avoid nephrotoxic drugs -Monitor Crea and BUN. -UA shows WBC 542, hyaline casts, budding cells, +1 ketone, +1 protein, 2+ blood urine, 2+ urine urobilinogen -Urinary culture, preliminary report showed >100,000 CFU/mL Yeast -fluconazole 100 mg per orally daily begun -Ceftriaxone 1g IV stopped on 04/25 and linezolid begun according to urine culture sensitivity, shows enterococcus faecium and yeast, non jace -Tamsulosin 0.4 mg p.o. -Nephrology consult 04/21/25 suggested Gentle IV fluids, Send urine for culture, Currently has Madhu, We will follow renal function closely -Nephrology consult 04/22/25 suggested: Gentle IV fluids Ns at 75 cc; dc lasix for now; Send urine for culture -Madhu's out today 04/22 -bladder scan done which showed 111 mL -Nephrology consult 04/23 suggested: IV fluids 75 cc normal saline today and to be stopped tomorrow -nephrology consult on 04/25 suggested epogen from tom 04/26 -Epogen 01680 units ( 1 vial) started from today 04/26 #Hx Peripheral artery disease. #DVT of left popliteal vein in left leg -US Doppler; Positive for partially occlusive acute appearing DVT in the left popliteal vein. - APTT on 04/24/25- >139 -Heparin drip was stopped on 04/24/25 - elliquis 10 mg b.i.d. per orally, started from today 04/26 #DM type 2 with hyperglycemia HbA1C 6.7 #Bilateral Diabetic Foot Ulcer -Wound consult -Sliding insulin scale -podiatry consulted suggested: discussed that the heel continues to be stable, would not perform any surgery on it; keep offloading the heel; no advanced imaging recommended; can weight bear as tolerated in a postop shoe using a walker #Essential hypertension -amlodipine 5 mg per orally daily #triple vessel cad -Continue carvedilol 12.5 mg p.o. b.i.d., aspirin 81 mg p.o. daily #Anemia of chronic disease -monitor H&H - 04/24/2025 hemoglobin was 5.4, patient received 2 units of PRBC, 1 unit of frozen plasma # hyperlipidemia -Atorvastatin 20 mg HS #sacral decubitis ulcer stage 2 present on admission -wound care daily DVT prophylaxis: heparin drip continued Diet: diabetic diet Goals of care discussed with the patient for more than 27 minutes: Full code status Case discussed with Dr. Narayan, patient and nurse. Plan discussed with: Patient, Other (rn) Dietary Evaluation Review Comments: Nutrition Recommedation 1) CCHO 60gm + cardiac diet 2) Armen 1 pk daily 3) Refer Manufacturing Tech for diabetes education 4) Monitor PO intake, lab values, weight trend, and I/O Expected Outcomes/Goals: Wound to improve Lab values to improve Fu 3-5 days Date of Service: Apr 27, 2025 Billing Provider: SHWETA CONRAD MD Common Visit Codes: [id number] INP/OBS CARE(HIGH) LESLEY LICEA Apr 27, 2025 19:48 SHWETA CONRAD MD May 01, 2025 16:47
[2025-04-28] VITALS (8 sets, daily range): BP systolic 124–151; BP diastolic 59–73; PULSE 71–91; RESP 16–18; TEMP 36.8; O2SAT 98–99
[2025-04-28 08:13] LABS: Anion Gap 12 (5-15); Carbon Dioxide 25 mmol/L (20-31); Chloride 100 mmol/L (98-107); Potassium 3.8 mmol/L (3.5-5.1); Sodium 137 mmol/L (136-145)
[2025-04-28 08:15] LABS: Calcium 8.9 mg/dL (8.7-10.4)
[2025-04-28 08:19] LABS: BUN/Creatinine Ratio 22.2 (10.0-20.0); Glucose 87 mg/dL (74-106)
[2025-04-28 08:24] LABS: Blood Urea Nitrogen 38 mg/dL (9-23)
[2025-04-28 08:29] LABS: Hematocrit 27.2 % (41.0-53.0); Hemoglobin 8.9 g/dL (13.5-17.5); Mean Corpuscular Hemoglobin 31.0 pg (28.0-32.0); Mean Corpuscular Volume 94.1 fL (80.0-100.0); Nucleated Red Blood Cells % 0.1 %
--- NOTE | 2025-04-28 13:02 | DVHDSRES ---
Discharge Summary Date of Admission Resident Creating Document: LESLEY LICEA RESIDENT Apr 20, 2025 at 20:46 Date of Discharge: Apr 28, 2025 Admitting Diagnosis Acute urinary retention Labs/Diagnostic Data: Laboratory Results Test 04/28/25 06:44 04/28/25 05:41 04/27/25 07:16 04/26/25 06:56 White Blood Count 5.9 10^3/uL (4.4-10.8) Red Blood Count 2.89 10^6/uL (4.5-5.90) Hemoglobin 8.9 g/dL (13.5-17.5) Hematocrit 27.2 % (41.0-53.0) Mean Corpuscular Volume 94.1 fL (80.0-100.0) Mean Corpuscular Hemoglobin 31.0 pg (28.0-32.0) Mean Corpuscular Hemoglobin Concent 32.9 g/dL (32.0-36.0) Red Cell Distribution Width 19.6 % (11.8-14.3) Platelet Count 243 10^3/uL (140-450) Mean Platelet Volume 7.4 fL (6.9-10.8) Neutrophils (%) (Auto) 69.2 % (37.0-80.0) Lymphocytes (%) (Auto) 14.5 % (10.0-50.0) Monocytes (%) (Auto) 9.1 % (0.0-12.0) Eosinophils (%) (Auto) 6.8 % (0.0-7.0) Basophils (%) (Auto) 0.4 % (0.0-2.0) Neutrophils # (Auto) 4.1 10 ^3/uL (1.6-8.6) Lymphocytes # (Auto) 0.9 10 ^3/uL (0.4-5.4) Monocytes # (Auto) 0.5 10 ^3/uL (0-1.3) Eosinophils # (Auto) 0.4 10 ^3/uL (0-0.8) Basophils # (Auto) 0 10 ^3/uL (0-0.2) Nucleated Red Blood Cells 0.1 % Sodium Level 137 mmol/L (136-145) Potassium Level 3.8 mmol/L (3.5-5.1) Chloride Level 100 mmol/L (98-107) Carbon Dioxide Level 25 mmol/L (20-31) Anion Gap 12 (5-15) Blood Urea Nitrogen 38 mg/dL (9-23) Creatinine 1.71 mg/dL (0.700-1.30) Glomerular Filtration Rate Calc 41 mL/min (>90) BUN/Creatinine Ratio 22.2 (10.0-20.0) Serum Glucose 87 mg/dL (74-106) Calcium Level 8.9 mg/dL (8.7-10.4) POC Glucose 79 mg/dl (70-106) Iron Level 47 ug/dL (65-175) Total Iron Binding Capacity 213 ug/dL (250-425) Percent Iron Saturation 22.1 % (20-55) Ferritin 620.1 ng/mL (22-322) Differential Total Cells Counted 100.0 (100) Neutrophils % (Manual) 71 (37.0-80.0) Band Neutrophils % (Manual) 0 Lymphocytes % (Manual) 17 (10.0-50.0) Monocytes % (Manual) 9 (0-12) Eosinophils % (Manual) 3 (0-7) Basophils % (Manual) 0 (0.0-2.0) Metamyelocytes % (manual) 0 Myelocytes % (Manual) 0 Promyelocytes % (Manual) 0 Blast Cells % (Manual) 0 Reactive Lymphocytes 0 Platelet Estimate Adequate Anisocytosis (manual) Slight Prothrombin Time 10.9 sec (9.3-11.8) Prothrombin Time INR 1.03 (0.9-1.15) Activated Partial Thromboplast Time 26.8 SEC (24.5-34.5) Test 04/24/25 20:38 04/21/25 18:31 04/21/25 05:50 04/20/25 22:00 Fibrinogen 487 mg/dL (177-375) Triglycerides Level 108 mg/dL (< 150) Cholesterol Level 119 mg/dL (< 200) LDL Cholesterol 73 mg/dL (< 100) HDL Cholesterol 28 mg/dL (40-59) Vitamin B12 Level 437 pg/mL (211-911) Vitamin D 25-Hydroxy 30.9 ng/mL (30.0-100) Parathyroid Hormone (Intact) 99.3 pg/mL (18.4-80.1) Hemoglobin A1c 6.7 % A1C (<5.7) Test 04/20/25 21:40 04/20/25 18:31 04/20/25 17:21 Urine Color Yellow (Yellow) Urine Clarity Ex.turbid (Clear) Urine pH 5.5 (5.0-9.0) Urine Specific [place] 1.016 (1.001-1.035) Urine Protein 1+ (Negative) Urine Ketones 1+ (Negative) Urine Blood 2+ /uL (Negative) Urine Nitrite Negative (Negative) Urine Bilirubin Negative (Negative) Urine Urobilinogen 2 mg/dL (Negative) Urine Leukocyte Esterase 3+ /uL (Negative) Urine RBC 37 /hpf (0 - 3) Urine WBC Clumps Present /hpf (None Seen) Urine Microscopic WBC 542 /HPF (0-3) Urine Squamous Epithelial Cells Few /hpf (<5) Urine Bacteria None seen /hpf (None Seen) Urine Hyaline Casts Mod /lpf (0 - 2) Urine Yeast (Budding) Many /hpf (None Seen) Urine Glucose Normal mg/dL (Normal) Urine Opiates Screen Neg (NEGATIVE) Urine Fentanyl Screen Neg (NEGATIVE) Urine Barbiturates Screen Neg (NEGATIVE) Urine Phencyclidine Screen Neg (NEGATIVE) Urine Amphetamines Screen Neg (NEGATIVE) Urine Benzodiazepines Screen Neg (NEGATIVE) Urine Cocaine Screen Neg (NEGATIVE) Urine Cannabinoids Screen Neg (NEGATIVE) Influenza Type A Antigen Negative (Negative) Influenza Type B Antigen Negative (Negative) SARS-CoV-2 Antigen (Rapid) Negative (NEGATIVE) Lactic Acid Level 1.8 mmol/L (0.4-2.0) Troponin I High Sensitivity 26 ng/L (</=54) B-Type Natriuretic Peptide 66.65 pg/mL (0-100) Other Laboratory Tests 04/28/25 06:44 Brief Hx & Hospital Course: Osmel Page is a 74-year-old, with past medical history of DM type 2, diabetic ulcers, peripheral artery disease, Triple-vessel CAD, hypertension and hyperlipidemia . The patient presented to the ED with chief complain of 1 day of generalized weakness, myalgias and nausea. He also reports 1 day without been able to void. The patient reports bilateral diabetic foot ulcer with poor healing, he was in a residential and was discharge day before yesterday. The patient denies fever, chills, vomit, sick contacts or other symptoms. past medical history: CAD with triple-vessel block, HTN, hyperlipidemia, peripheral neuropathy, anemia, diabetes mellitus type 2 Past Surgical History: Tonsillectomy Family History: DM, Hypertension Smoke: No ALCOHOL: occassional Drugs: None Lives: with Family Brief history of hospitalization: Patient came in with generalized weakness possibly due to dehydration. He had acute kidney injury according to his labs which was creatinine of 3.63 and BUN 47. He has past medical history of CKD stage 4 and AD on CKD is possibly hemodynamic mediated etiology multifactorial in setting of recent antibiotics, diuretics, chronic infection. Nephrology was consulted and have been on board. Patient had UTI, possibly cystitis seen in his urine analysis which showed WBC of 542, highly gas, bedding cells, +1 ketones, +1 protein, +2 blood urine, 2+ urine urobilinogen. We started him on ceftriaxone 1 g IV but stopped and began giving linezolid once urine culture sensitivity showed sensitivity for linezolid and Enterococcus Faecium and yeast, non Dulce. He also had urinary retention so we put a Leung's catheter on him and gave him tamsulosin 0.4 mg per orally daily. Urine cultures preliminary showed more than [id number] CFU per mL yeast and we also began the patient on fluconazole 100 mg per orally daily. Nephrology consult was done suggested IV fluids Daily. They suggested Epogen starting from 04/26 and 42996 units (1 vial) was started. A bladder scan was done which showed 111 ml fluid 2 days after the Leung's and so we removed the Leung's on 04/22. Patient had a history of peripheral artery disease and a USG Doppler showed positive findings for partially occlusive acute appearing DVT in the left popliteal vein. Patient was started on heparin but with increasing aPPT and bleeding we stopped the drip on 04/24. During this time we noted that he has anemia and On 04/24 hemoglobin was 5.4 so the patient received 2 units of packed red blood cells and 1 unit of fresh frozen plasma after which hemoglobin came back to normal. For the DVT after heparin was stopped, Eliquis 10 mg b.i.d. was started on 04/26 instead. Patient is also diabetic type 2 with hypoglycemia and had an HbA1c of 6.7 with bilateral diabetic foot ulcer. Wound consult was done and sliding insulin scale was started. Podiatry was consulted as well and they discussed with the patient that the heel continued to be stable and that they would not be performing any surgery. Patient was counseled to keep load off the ulcer at the heel and to bear weight as tolerated in the postop shoe using a walker. PT evaluation was done and social sciences lecturer were contacted for home health services with PT. Patient has been receiving physical therapy every day in hospital as well. For patient's essential hypertension amlodipine 5 mg per orally was continued daily and for his triple-vessel disease CAD we continued carvedilol 12.5 mg per orally b.i.d. as well as aspirin 81 mg per orally daily. Patient's hyperlipidemia has also been controlled by continued atorvastatin 20 mg at night daily. Patient is now stable for discharge. executive services administrator have arranged home health with PT for him. Initially patient and his son had requested for a hospital bed but the patient declined the bed today as he states his room is too cluttered. We have discussed the medications with the patient and regarding home health and physical therapy which the patient verbalizes understanding about. He is now ready to be discharged. General: Patient alert and oriented in person, place and time. Patient following commands. Appears pale HEENT: Normocephalic, atraumatic, dry mucous membranes Respiratory/pulmonary: Clear lungs bilaterally, vesicular murmurs present in almost all lung murguia, no associated crackles or wheezes. Cardiovascular: Normal heart sounds S1 and S2 with no associated murmurs Abdomen: Abdomen nondistended, there is no pain to palpation in any of the abdominal quadrants, no palpable masses. Extremities: There is no peripheral edema present at the lower extremities. (Bilateral lower leg edema up to the knees, pulses hard to palpate due to edema, disminished 2+/5+. Bilateral diabtetic ulcers, clean bases, small amount of serous secretions. eschar present on the left heel, left lateral feet. Amputation of the left hallux ) Peripheral Pulses: 3+ Radial (R). 3+ Radial (L). 3+ Dorsalis pedis (R). 3+ Dorsalis pedis(L) Skin: No rashes or pruritus, sacral ulcer present since admission stage 2 ulcer Neurological: Intact cranial nerves with no focal neurologic deficits (Sensation disminished in bilateral foot and legs. ) Instructions -Patient advised to meet PCP in 10 days -continue the following meds: Linezolid 600 mg twice a day for 7 days Eliquis 10 mg b.i.d. till , starting from 27th Eliquis 5 mg b.i.d. continue Atorvastatin and aspirin daily Carvedilol 12.5 mg daily Amlodipine 5 mg daily Tamsulosin 0.4 mg orally daily Protonix 40 mg per orally daily -Resume other home medications Operations or Procedures CXR: IMPRESSION: No acute disease. PROCEDURE(s): BLDVT - BiLat Lower DVT REASON: To rule out DVT IMPRESSION: Positive for partially occlusive acute appearing DVT in the left popliteal vein. No evidence of DVT in the right lower extremity. Critical Result: Left popliteal vein DVT Condition at Discharge: Stable Final Diagnosis/Problems List #Acute Urinary retention #UTI, due to enterococcus #Generalized weakness possible dehydration. #Acute kidney injury on Chronic kidney disease four hemodynamic mediated etiology multifactorial in the setting of recent antibiotics, diuretics, chronic infection #DM type 2 with hyperglycemia HbA1C 6.7 #Bilateral Diabetic Foot Ulcer #Essential hypertension #triple vessel cad #Anemia of chronic disease # hyperlipidemia #sacral ulcer present since admission stage 2 ulcer Discharge Disposition: Home with Health Services Discharge Instruct/Medications Diet: Consistent carbohydrate, Cardiac 2g Na,low cholest Activity: No Restrictions, As Tolerated Follow Up/Referral: Follow up with primary care physician in 10 days Medications: Linezolid 600 mg twice a day for 7 days Eliquis 10 mg b.i.d. till , starting from Eliquis 5 mg b.i.d. continue Atorvastatin and aspirin daily Carvedilol 12.5 mg daily Amlodipine 5 mg daily Tamsulosin 0.4 mg orally daily Protonix 40 mg per orally daily Resume other home medications Scheduled Amlodipine Besylate (Amlodipine Besylate), 1 TAB PO DAILY Apixaban Base (Eliquis), 5 MG PO BID Apixaban Base (Eliquis), 10 MG PO BID Aspirin (Aspirin Adult Low Dose), 1 TAB PO DAILY Atorvastatin Calcium (Atorvastatin Calcium), 20 MG PO HS Calcium Carbonate-Cholecalcife (Calcium 500-10 mg-Mcg), 1 TAB PO BID, (Reported) Carvedilol (Carvedilol), 12.1 TAB PO BID Furosemide (Furosemide), 1 TAB PO DAILY, (Reported) Glipizide (Glipizide), 1 TAB PO BID, (Reported) Hydrochlorothiazide (Hydrochlorothiazide), 50 MG PO DAILY, (Reported) Linezolid (Zyvox), 600 MG PO BID Nutritional Supplements (Glucerna Carbsteady), 240 ML PO TIDWM Pantoprazole Sodium Sesquihydr (Pantoprazole Sodium), 40 MG PO DAILY Rifampin (Rifampin), 300 MG PO BID Tamsulosin Hcl (Tamsulosin Hcl), 0.4 MG PO QPM Scheduled PRN Hydrocodone-Acetaminophen (Hydrocodone Bitartrate/AC 5-325 mg), 1 TAB PO BID PRN Miscellaneous Medications Metformin HCl (Metformin Hydrochloride), 500 MG PO, (Reported) Discontinued Medications Apixaban Base (Eliquis), 10 MG PO BID Discontinued Reason: Prescription changed Atorvastatin Calcium (Atorvastatin Calcium), 10 MG PO DAILY, (Reported) Ciprofloxacin Hcl (Cipro), 1 TAB PO BID Doxycycline (Monohydrate) (Doxycycline), 100 MG PO BIDAC Metronidazole (Flagyl), 500 MG PO TID Discharge Statement: "Patient was advised to return to the ER or call 911 if any headaches, dizziness, shortness of breath, chest pain, abdominal pain, bleeding, fevers, or worsening of medical condition. Patient was counseled about treatment plan, medications, possible side effects, patientverbalized understanding. All questions were answered to the best of my ability. This discharge took greater then 30 minutes in planning, reviewing documentation, counseling the patient, and discussing with other team members." ASSESSMENT ASSESSMENT Assessment Acute urinary retention UTI due to Enterococcus Date of Service: Apr 28, 2025 Billing Provider: SHWETA CONRAD MD Common Visit Codes: 42806-COD/OBS DISCH DAY >30min LESLEY LICEA Apr 28, 2025 13:01 SHWETA CONRAD MD May 01, 2025 17:40
[2025-04-28] MEDS ORDERED: ATOR20TA50 PO (13:04)
[2025-04-28] MEDS ORDERED: NUTR-1405 PO (13:04)
[2025-04-28] MEDS ORDERED: ASPI-628 PO (13:04)
[2025-04-28] MEDS ORDERED: AMLO1TAB22 PO (13:04)
[2025-04-28] MEDS ORDERED: CARV12.544 PO (13:04)
[2025-04-28] MEDS ORDERED: TAMS0.4C39 PO (13:04)
[2025-04-28] MEDS ORDERED: APIX5TAB PO ×2 (13:04)
[2025-04-28] MEDS ORDERED: PANT40T PO (13:04)
[2025-04-28] MEDS ORDERED: LINE1TAB6 PO (13:04)
--- NOTE | 2025-04-28 14:00 | ECG ---
[facility] Test Date: 2025-04-20 Test Time: 18:03:13 Pat Name: RAJESH ELIAS Department: ED Room: 0295 A Gender: M Pecan Huller: DEBBY : 1950 Requested By: ANDRE SILVEIRA Order Number: [id number] Reading MD: Kelton Ji Measurements Intervals [place] Rate: 115 P: -48 [place]: 133 QRS: -88 QRSD: 143 T: 12 QT: 360 QTc: 498 Interpretive Statements Sinus or ectopic atrial tachycardia RBBB and LAFB Consider left ventricular hypertrophy Borderline prolonged QT interval Baseline wander in lead(s) V2 Electronically Signed On 05-03-2025 13:26:18 PDT by Kelton Ji Please click the below link to view image of tracing.
--- NOTE | 2025-04-28 19:05 | DVHPN2 ---
Progress Note Date Seen: Apr 28, 2025 Medical Necessity Reason Pt with a Central, PICC or Fol: No Objective vital signs Vital Sign Date Time Temp Pulse Resp B/P (MAP) Pulse Ox O2 Delivery O2 Flow Rate FiO2 04/28/25 17:00 98.3 90 17 151/70 (97) 99 98.3 04/28/25 08:10 Room Air* 0 21 Total Intake and Output 04/27/25 04/27/25 04/28/25 15:00 23:00 07:00 Intake Total 300 ml 550 ml 600 ml Output Total 650 ml 950 ml Balance 300 ml -100 ml -350 ml medications Current Medications Medications Dose Ordered Sig/Bandar Route Start Time Stop Time Status Last Admin Dose Admin Pantoprazole Sodium 40 mg DAILY PO 04/21/25 10:00 04/27/25 10:49 40 MG Diagnostic Test (Pha) 1 strip Q6HR 04/21/25 00:00 04/28/25 17:05 1 STRIP Insulin Human Regular Q6HR SC 04/21/25 00:00 04/28/25 11:20 6 UNITS Dextrose 50 ml UD PRN IV 04/20/25 21:00 Enteral Nutritional Formula 240 ml TIDWM PO 04/21/25 18:00 04/28/25 18:00 240 ML Amlodipine Besylate 5 mg DAILY PO 04/22/25 10:00 04/28/25 09:39 5 MG Aspirin 81 mg DAILY PO 04/22/25 10:00 04/28/25 09:39 81 MG Carvedilol 12.5 mg BID PO 04/21/25 22:00 04/28/25 09:40 12.5 MG Tamsulosin HCl 0.4 mg QPM PO 04/21/25 19:00 04/27/25 18:46 0.4 MG Atorvastatin Calcium 20 mg HS PO 04/21/25 22:00 04/27/25 21:19 20 MG Fluconazole 100 mg DAILY PO 04/23/25 10:00 04/30/25 09:59 04/27/25 10:49 100 MG Ondansetron HCl 4 mg Q6HPRN PRN IV 04/24/25 11:00 UNV Apixaban 10 mg BID PO 04/26/25 10:00 05/03/25 09:59 04/28/25 09:38 10 MG Apixaban 5 mg BID PO 05/04/25 10:00 Epoetin Norm-epbx 10,000 unit TUTHSA@2100 SC 04/26/25 21:00 04/26/25 21:50 10,000 UNIT Linezolid 600 mg BID PO 04/28/25 22:00 laboratory and microbiology Laboratory Tests 04/28/25 06:44 Test 04/28/25 06:44 Range/Units Serum Glucose 87 74-106 mg/dL Microbiology Date/Time Source Procedure Growth Status 04/21/25 15:35 Voided Urine Urine Culture - Final Yeast, not Dulce albicans Complete Problem List/Assessment/Plan Problem List/Assessment/Plan Acute kidney injury on Chronic kidney disease 3b hemodynamic mediated etiology multifactorial in the setting of recent antibiotics, diuretics, chronic infection Bilateral feet ulcers/foot wounds Diabetes Anemia chf UTI renal function is now approaching is outpatient baseline of stage 3 epogen 3x a week ABX avoid hypotension will sign off case patient will return to my renal clinic after discharge Plan discussed with: Patient Dietary Evaluation Review Comments: Nutrition Recommedation 1) CCHO 60gm + cardiac diet 2) Armen 1 pk daily 3) Refer Credit Review Officer for diabetes education 4) Monitor PO intake, lab values, weight trend, and I/O Expected Outcomes/Goals: Wound to improve Lab values to improve Fu 3-5 days Total Time (mins): 33 ALEJANDRO IRVING MD Apr 28, 2025 19:04
[2025-04-28] MEDS: LINEZOLID 600MG TABLET PO SCH (21:15)
[2025-04-29 01:00] VITALS: BP 136/59; PULSE 70; RESP 17; TEMP 98.3; O2SAT 96
[2025-04-29 05:00] VITALS: BP 120/69; PULSE 75; RESP 18; TEMP 97.6; O2SAT 99
[2025-04-29 09:00] VITALS: BP 160/81; PULSE 85; RESP 16; TEMP 98.2; O2SAT 98
[2025-04-29 09:03] LABS: Anion Gap 12 (5-15); Carbon Dioxide 27 mmol/L (20-31); Potassium 4.2 mmol/L (3.5-5.1); Sodium 137 mmol/L (136-145)
[2025-04-29 09:04] LABS: Chloride 98 mmol/L (98-107)
[2025-04-29 09:05] LABS: Calcium 8.9 mg/dL (8.7-10.4)
[2025-04-29 09:10] LABS: BUN/Creatinine Ratio 29.2 (10.0-20.0)
[2025-04-29 09:12] LABS: Blood Urea Nitrogen 50 mg/dL (9-23); Glucose 117 mg/dL (74-106)
[2025-04-29 13:00] VITALS: BP 136/65; PULSE 77; RESP 16; TEMP 98; O2SAT 98
[2025-04-29 17:04] VITALS: BP 145/74; PULSE 87; RESP 16; TEMP 98.7; O2SAT 100
--- NOTE | 2025-04-29 17:30 | DVHPNRES ---
Progress Note Date Seen: Apr 29, 2025 Resident Creating Document: LESLEY LICEA RESIDENT Medical Necessity Reason Pt with a Central, PICC or Fol: No Subjective Review of Systems Osmel Page is a 74-year-old, with past medical history of DM type 2, diabetic ulcers, peripheral artery disease, Triple-vessel CAD, hypertension and hyperlipidemia . The patient presented to the ED with chief complain of 1 day of generalized weakness, myalgias and nausea. He also reports 1 day without been able to void. The patient reports bilateral diabetic foot ulcer with poor healing, he was in a prison and was discharge day before yesterday. The patient denies fever, chills, vomit, sick contacts or other symptoms. past medical history: CAD with triple-vessel block, HTN, hyperlipidemia, peripheral neuropathy, anemia, diabetes mellitus type 2 Past Surgical History: Tonsillectomy Family History: DM, Hypertension Smoke: No ALCOHOL: occassional Drugs: None Lives: with Family ROS: Patient was seen by me at the bedside. Overnight events were reviewed. Patient complains that he still feels weak and is unable to ambulate properly. He has no active complaints today. Nephrology was consulted and suggested Gentle IV fluids, Send urine for culture, Currently has Madhu, We will follow renal function closely. Podiatry consultation, pending. 04/22/2025: Patient was seen by me at the bedside. Overnight events were reviewed. Podiatry and Nephrology on board. We are waiting for SNF placement suggested by physical therapist. 04/23/2025: Patient was seen at bedside. No new active complaints. Patient had a right lateral forearm and right lateral wrist tear for which Opti foam was applied. Patient can remember how the injury occurred. Patient appt was 139 at night on heparin, so the dose was decreased to 18 mL/hour. Urine culture preliminary shows more than [id number] CFU per mL yeast. Fluconazole 100 mg per orally was begun. Nephrology consult suggested discontinuation of Lasix, IV NS 75 cc/hour which can be stopped tomorrow. Midline started today as patient is bleeding quite easily due to the heparin drip and IV cannula changes difficult. We are waiting for SNF placement. 04/24/2025 Patient seen at bedside. Patient is alert x3, in mild distress, states he is feeling nauseous and has been having dry heaves, for which Zofran 4 mg IV q.6 PRN was given. Patient has a PTT was 139.0. heparin drip was stopped. Today patient's hemoglobin was 5.4 for which 2 units of PRBC and 1 unit of frozen plasma was ordered. Repeat H&H was ordered. 04/25/25: Patient was seen at bedside. No new active complaints. Hemoglobin came to 9.1 yesterday and 8.7 today. Patient reports feeling better. Linezolid started and ceftriaxone stopped according to urinary cultures which shows sensitivity to linezolid. Urine culture also shows Enterococcus faecium and yeast, not Dulce. Nephrology consult suggests Neupogen starting from tomorrow. We will give Eliquis renal dose from tomorrow. PT on board, wound care done daily. Waiting for SNF placement 04/26/2025: Patient was seen at the bedside. No new active complaints. Epogen [id number] units started today, Eliquis 10 mg per orally b.i.d. begun today for DVT. health services manager consulted regarding home health with PT. 04/27/2025: Patient was seen at the bedside. No new active complaints. We are waiting for social services director to find home health with PT. 04/29/2025: Patient was seen at the bedside. No new active complaints. IV medications were changed to oral medications today. Objective vital signs Vital Sign Date Time Temp Pulse Resp B/P (MAP) Pulse Ox O2 Delivery O2 Flow Rate FiO2 04/29/25 17:04 98.7 87 16 145/74 (97) 100 98.7 04/29/25 11:03 Room Air* 0 21 Total Intake and Output 04/28/25 04/28/25 04/29/25 15:00 23:00 07:00 Intake Total 300 ml 520 ml 460 ml Output Total 250 ml 700 ml Balance 300 ml 270 ml -240 ml medications Current Medications Medications Dose Ordered Sig/Bandar Route Start Time Stop Time Status Last Admin Dose Admin Pantoprazole Sodium 40 mg DAILY PO 04/21/25 10:00 04/29/25 08:56 40 MG Enteral Nutritional Formula 240 ml TIDWM PO 04/21/25 18:00 04/29/25 12:47 240 ML Amlodipine Besylate 5 mg DAILY PO 04/22/25 10:00 04/29/25 08:57 5 MG Aspirin 81 mg DAILY PO 04/22/25 10:00 04/29/25 08:56 81 MG Carvedilol 12.5 mg BID PO 04/21/25 22:00 04/29/25 08:57 12.5 MG Tamsulosin HCl 0.4 mg QPM PO 04/21/25 19:00 04/27/25 18:46 0.4 MG Atorvastatin Calcium 20 mg HS PO 04/21/25 22:00 04/28/25 21:16 20 MG Fluconazole 100 mg DAILY PO 04/23/25 10:00 04/30/25 09:59 04/29/25 08:56 100 MG Ondansetron HCl 4 mg Q6HPRN PRN IV 04/24/25 11:00 UNV Apixaban 10 mg BID PO 04/26/25 10:00 05/03/25 09:59 04/29/25 08:56 10 MG Apixaban 5 mg BID PO 05/04/25 10:00 Linezolid 600 mg BID PO 04/28/25 22:00 04/29/25 08:56 600 MG Glipizide 5 mg IBID PO 04/29/25 18:00 Metformin HCl 500 mg DAILY PO 04/30/25 10:00 UNV Examination General: Patient alert and oriented in person, place and time. Patient following commands. Appears pale HEENT: Normocephalic, atraumatic, dry mucous membranes Respiratory/pulmonary: Clear lungs bilaterally, vesicular murmurs present in almost all lung murguia, no associated crackles or wheezes. Cardiovascular: Normal heart sounds S1 and S2 with no associated murmurs Abdomen: Abdomen nondistended, there is no pain to palpation in any of the abdominal quadrants, no palpable masses. Extremities: There is no peripheral edema present at the lower extremities. (Bilateral lower leg edema up to the knees, pulses hard to palpate due to edema, disminished 2+/5+. Bilateral diabtetic ulcers, clean bases, small amount of serous secretions. eschar present on the left heel, left lateral feet. Amputation of the left hallux ) Peripheral Pulses: 3+ Radial (R). 3+ Radial (L). 3+ Dorsalis pedis (R). 3+ Dorsalis pedis(L) Skin: No rashes or pruritus, sacral ulcer present since admission stage 2 ulcer Neurological: Intact cranial nerves with no focal neurologic deficits (Sensation disminished in bilateral foot and legs. ) laboratory and microbiology Laboratory Tests 04/29/25 07:48 04/28/25 06:44 Test 04/29/25 07:48 Range/Units Serum Glucose 117 H 74-106 mg/dL Microbiology Date/Time Source Procedure Growth Status 04/21/25 15:35 Voided Urine Urine Culture - Final Yeast, not Dulce albicans Complete Labs and/or images reviewed: Labs reviewed by me, Image(s) reviewed by me Problem List/Assessment/Plan Problem List/Assessment/Plan #Generalized weakness possible dehydration. #Acute kidney injury on Chronic kidney disease stage IV hemodynamic mediated etiology multifactorial in the setting of recent antibiotics, diuretics, chronic infection #Urinary retention #UTI, possible cystitis -IV fluids: NS -Crea 3.63 BUN47 -Avoid nephrotoxic drugs -Monitor Crea and BUN. #Generalized weakness possible dehydration. #Acute kidney injury on Chronic kidney disease stage IV hemodynamic mediated etiology multifactorial in the setting of recent antibiotics, diuretics, chronic infection #Urinary retention #UTI, possible cystitis -Crea 3.63 BUN47 -Avoid nephrotoxic drugs -Monitor Crea and BUN. -UA shows WBC 542, hyaline casts, budding cells, +1 ketone, +1 protein, 2+ blood urine, 2+ urine urobilinogen -Urinary culture, preliminary report showed >100,000 CFU/mL Yeast -fluconazole 100 mg per orally daily -Tamsulosin 0.4 mg p.o. -bladder scan done which showed 111 mL -nephrology consult on 04/25 suggested epogen from [facility] 04/26, stopped today #Hx Peripheral artery disease. #DVT of left popliteal vein in left leg -US Doppler; Positive for partially occlusive acute appearing DVT in the left popliteal vein. - APTT on 04/24/25- >139 -Heparin drip was stopped on 04/24/25 - elliquis 10 mg b.i.d. per orally, started from today 04/26 #DM type 2 with hyperglycemia HbA1C 6.7 #Bilateral Diabetic Foot Ulcer -Wound consult -podiatry consulted suggested: discussed that the heel continues to be stable, would not perform any surgery on it; keep offloading the heel; no advanced imaging recommended; can weight bear as tolerated in a postop shoe using a walker -Sliding insulin scale stopped today -Metformin 500 mg daily and glipizide 5 mg p.o. b.i.d. started #Essential hypertension -amlodipine 5 mg per orally daily #triple vessel cad -Continue carvedilol 12.5 mg p.o. b.i.d., aspirin 81 mg p.o. daily #Anemia of chronic disease -monitor H&H - 04/24/2025 hemoglobin was 5.4, patient received 2 units of PRBC, 1 unit of frozen plasma # hyperlipidemia -Atorvastatin 20 mg HS #sacral decubitis ulcer stage 2 present on admission -wound care daily DVT prophylaxis: heparin drip continued Diet: diabetic diet Goals of care discussed with the patient for more than 27 minutes: Full code status Case discussed with Dr. Narayan, patient and nurse. Plan discussed with: Patient, Other (rn) Dietary Evaluation Review Comments: Nutrition Recommedation 1) CCHO 60gm + cardiac diet 2) Armen 1 pk daily 3) Refer Incident Coordinator for diabetes education 4) Monitor PO intake, lab values, weight trend, and I/O Expected Outcomes/Goals: Wound to improve Lab values to improve Fu 3-5 days Date of Service: Apr 29, 2025 Billing Provider: SHWETA CONRAD MD Common Visit Codes: [id number] INP/OBS CARE(HIGH) LESLEY LICEA RESIDENT Apr 29, 2025 17:30 SHWETA CONRAD MD May 01, 2025 17:03
[2025-04-29] MEDS: glipiZIDE 5 MG TAB PO SCH (17:44)
[2025-04-29 21:00] VITALS: BP 122/61; PULSE 87; RESP 16; TEMP 97.2; O2SAT 98
[2025-04-30 01:00] VITALS: BP 125/65; PULSE 76; RESP 16; TEMP 97.2; O2SAT 98
[2025-04-30 05:00] VITALS: BP 139/69; PULSE 77; RESP 16; TEMP 97.6; O2SAT 98
[2025-04-30 08:55] VITALS: BP 161/84; PULSE 81; RESP 16; TEMP 98.4; O2SAT 97
[2025-04-30 12:32] VITALS: BP 141/72; PULSE 81; RESP 16; TEMP 97.9; O2SAT 98
[2025-04-30 16:56] VITALS: BP 155/75; PULSE 82; RESP 16; TEMP 97.6; O2SAT 99
--- NOTE | 2025-04-30 17:24 | DVHPN2 ---
Subjective I am assuming the care of the patient from today onwards chart reviewed consultants notes reviewed. Patient's has a pedal discharged although he is APF case as well currently renal social worker working on placement. Patient denies any complaints. Changes from previous H/P or p: No Changes Eyes: No Pain, No Vision change, No Conjunctivae inflammation, No Eyelid inflammation, No Other, No Redness ENT: No Ear pain, No Ear discharge, No Nose pain, No Nose discharge, No Nose congestion, No Mouth pain, No Mouth swelling, No Throat pain, No Throat swelling, No Other Cardiovascular: No Chest Pain, No Palpitations, No Orthopnea, No Paroxysmal Noc. Dyspnea, No Edema, No Lt Headedness, No Other Respiratory: No Cough, No Dry, No Shortness of breath, No SOB with excertion, No Wheezing, No Hemoptysis, No Pleuritic Pain, No Sputum, No Other Gastrointestinal: Nausea; No Vomiting, No Abdominal Pain, No Diarrhea, No Constipation, No Melena, No Hematochezia, No Other Genitourinary: No Dysuria, No Frequency, No Incontinence, No Hematuria; R etention; No Other Musculoskeletal: No other, No neck pain, No shoulder pain, No arm pain, No back pain, No hand pain, No leg pain, No foot pain Skin: No Rash, No Lesions, No Jaundice, No Bruising; Other (Bilateral diabetic ulcers) Objective Vitals Vital Signs Date Time Temp Pulse Resp B/P (MAP) Pulse Ox O2 Delivery O2 Flow Rate FiO2 04/30/25 16:56 97.6 82 16 155/75 (101) 99 97.6 04/30/25 08:00 Room Air* 0 21 Intake/Output Intake and Output 04/30/25 07:00 Intake Total 1000 ml Output Total 1520 ml Balance -520 ml Intake Oral 1000 ml Output Urine Total 1520 ml # Bowel Movements 4 Exam HEENT pupils are reactive Neck is supple CV is S1-S2 regular rate and rhythm Diminished breath sounds bilateral lung bases GI positive bowel sound Extremity no edema [employer] no motor deficit Medications Current Medications Medications Dose Ordered Sig/Bandar Route Start Time Stop Time Status Last Admin Dose Admin Pantoprazole Sodium 40 mg DAILY PO 04/21/25 10:00 04/30/25 10:39 40 MG Enteral Nutritional Formula 240 ml TIDWM PO 04/21/25 18:00 04/30/25 12:00 240 ML Amlodipine Besylate 5 mg DAILY PO 04/22/25 10:00 04/30/25 10:39 5 MG Aspirin 81 mg DAILY PO 04/22/25 10:00 04/30/25 10:38 81 MG Carvedilol 12.5 mg BID PO 04/21/25 22:00 04/30/25 10:38 12.5 MG Tamsulosin HCl 0.4 mg QPM PO 04/21/25 19:00 04/29/25 17:44 0.4 MG Atorvastatin Calcium 20 mg HS PO 04/21/25 22:00 04/29/25 21:29 20 MG Ondansetron HCl 4 mg Q6HPRN PRN IV 04/24/25 11:00 UNV Apixaban 10 mg BID PO 04/26/25 10:00 05/03/25 09:59 04/30/25 10:38 10 MG Apixaban 5 mg BID PO 05/04/25 10:00 Linezolid 600 mg BID PO 04/28/25 22:00 04/30/25 10:41 600 MG Glipizide 5 mg IBID PO 04/29/25 18:00 04/30/25 06:39 5 MG Metformin HCl 500 mg DAILY PO 04/30/25 10:00 04/30/25 10:39 500 MG Laboratory Results Laboratory Tests 04/28/25 06:44 04/29/25 07:48 Urinalysis Test 04/20/25 21:40 Urine Color Yellow (Yellow) Urine Clarity Ex.turbid (Clear) Urine pH 5.5 (5.0-9.0) Urine Specific [place] 1.016 (1.001-1.035) Urine Protein 1+ (Negative) H Urine Ketones 1+ (Negative) H Urine Blood 2+ /uL (Negative) H Urine Nitrite Negative (Negative) Urine Bilirubin Negative (Negative) Urine Urobilinogen 2 mg/dL (Negative) H Urine Leukocyte Esterase 3+ /uL (Negative) Urine RBC 37 /hpf (0 - 3) Urine WBC Clumps Present /hpf (None Seen) Urine Microscopic WBC 542 /HPF (0-3) H Urine Squamous Epithelial Cells Few /hpf (<5) Urine Bacteria None seen /hpf (None Seen) Urine Hyaline Casts Mod /lpf (0 - 2) Urine Yeast (Budding) Many /hpf (None Seen) Urine Glucose Normal mg/dL (Normal) Microbiology Microbiology Date/Time Source Procedure Growth Status 04/21/25 15:35 Voided Urine Urine Culture - Final Yeast, not Dulce albicans Complete Assessment/Plan Assessment/Plan 74-year-old male with a known history of CAD status post triple-vessel disease, hypertension, dyslipidemia, peripheral arterial disease, diabetic foot ulcers, sacral decubitus ulcer, presented to the hospital with a generalized weakness dehydration found to have 1. Acute kidney injury suspected secondary to vasomotor nephropathy currently improved 2. Urinary tract infection with a Enterococcus faecium 3. Left lower extremity DVT 4. Anemia status post 2 units of packed RBC 5. Bilateral diabetic foot ulcer 6. Coronary artery disease status post CABG 7. Hypertension 8. Diabetes mellitus type 2 9. Peripheral arterial disease -continue p.o. antibiotics, renal social worker consultation for placement, hospitalist evaluation per renal social worker -continue Eliquis for DVT, risks benefits and alternatives of Eliquis including life-threatening bleeding disability explained to the patient in detail who understand verbalized understanding and agreeable to plan.. Plan discussed with: Patient, Other (Patient's bedside RN summer.) My Orders Orders - ANDREW DIAMOND MD Procedure Category Date Status Time * Final Cigar And Box Examiner CONS 04/30/25 Transmitted Consult Date of Service: Apr 30, 2025 Billing Provider: ANDREW DIAMOND MD Common Visit Codes: [id number] INP/OBS CARE(MOD) ANDREW DIAMOND MD Apr 30, 2025 17:24
[2025-04-30 21:00] VITALS: BP 152/69; PULSE 96; RESP 16; TEMP 98.5; O2SAT 93
[2025-05-01 01:00] VITALS: BP 139/67; PULSE 82; RESP 18; TEMP 98.7; O2SAT 96
[2025-05-01 05:00] VITALS: BP 145/59; PULSE 83; RESP 16; TEMP 98; O2SAT 95
[2025-05-01 09:00] VITALS: BP 151/69; PULSE 91; RESP 16; TEMP 97.6; O2SAT 100
[2025-05-01] MEDS ORDERED: APIX5TAB PO ×2 (12:57→15:41)
--- NOTE | 2025-05-01 12:57 | DVHPN2 ---
Subjective Was seen and evaluated by me earlier during the day. Patient has a discharge plan to home with a home hospice. Changes from previous H/P or p: No Changes Eyes: No Pain, No Vision change, No Conjunctivae inflammation, No Eyelid inflammation, No Other, No Redness ENT: No Ear pain, No Ear discharge, No Nose pain, No Nose discharge, No Nose congestion, No Mouth pain, No Mouth swelling, No Throat pain, No Throat swelling, No Other Cardiovascular: No Chest Pain, No Palpitations, No Orthopnea, No Paroxysmal Noc. Dyspnea, No Edema, No Lt Headedness, No Other Respiratory: No Cough, No Dry, No Shortness of breath, No SOB with excertion, No Wheezing, No Hemoptysis, No Pleuritic Pain, No Sputum, No Other Gastrointestinal: Nausea; No Vomiting, No Abdominal Pain, No Diarrhea, No Constipation, No Melena, No Hematochezia, No Other Genitourinary: No Dysuria, No Frequency, No Incontinence, No Hematuria; R etention; No Other Musculoskeletal: No other, No neck pain, No shoulder pain, No arm pain, No back pain, No hand pain, No leg pain, No foot pain Skin: No Rash, No Lesions, No Jaundice, No Bruising; Other (Bilateral diabetic ulcers) Objective Vitals Vital Signs Date Time Temp Pulse Resp B/P (MAP) Pulse Ox O2 Delivery O2 Flow Rate FiO2 05/01/25 09:44 151/69 05/01/25 09:42 91 05/01/25 09:00 97.6 16 100 97.6 05/01/25 08:00 Room Air* 0 21 Intake/Output Intake and Output 05/01/25 07:00 Intake Total 820 ml Output Total 950 ml Balance -130 ml Intake Oral 820 ml Output Urine Total 950 ml # Bowel Movements 2 Exam HEENT pupils are reactive Neck is supple CV is S1-S2 regular rate and rhythm Diminished breath sounds bilateral lung bases GI positive bowel sound Extremity no edema [employer] no motor deficit Medications Current Medications Medications Dose Ordered Sig/Bandar Route Start Time Stop Time Status Last Admin Dose Admin Pantoprazole Sodium 40 mg DAILY PO 04/21/25 10:00 05/01/25 09:44 40 MG Enteral Nutritional Formula 240 ml TIDWM PO 04/21/25 18:00 05/01/25 08:00 240 ML Amlodipine Besylate 5 mg DAILY PO 04/22/25 10:00 05/01/25 09:44 5 MG Aspirin 81 mg DAILY PO 04/22/25 10:00 05/01/25 09:43 81 MG Carvedilol 12.5 mg BID PO 04/21/25 22:00 05/01/25 09:42 12.5 MG Tamsulosin HCl 0.4 mg QPM PO 04/21/25 19:00 04/30/25 19:10 0.4 MG Atorvastatin Calcium 20 mg HS PO 04/21/25 22:00 04/30/25 21:57 20 MG Ondansetron HCl 4 mg Q6HPRN PRN IV 04/24/25 11:00 UNV Apixaban 10 mg BID PO 04/26/25 10:00 05/03/25 09:59 05/01/25 09:43 10 MG Apixaban 5 mg BID PO 05/04/25 10:00 Linezolid 600 mg BID PO 04/28/25 22:00 05/01/25 09:44 600 MG Glipizide 5 mg IBID PO 04/29/25 18:00 05/01/25 06:39 5 MG Metformin HCl 500 mg DAILY PO 04/30/25 10:00 05/01/25 09:44 500 MG Laboratory Results Laboratory Tests 04/28/25 06:44 04/29/25 07:48 Urinalysis Test 04/20/25 21:40 Urine Color Yellow (Yellow) Urine Clarity Ex.turbid (Clear) Urine pH 5.5 (5.0-9.0) Urine Specific [place] 1.016 (1.001-1.035) Urine Protein 1+ (Negative) H Urine Ketones 1+ (Negative) H Urine Blood 2+ /uL (Negative) H Urine Nitrite Negative (Negative) Urine Bilirubin Negative (Negative) Urine Urobilinogen 2 mg/dL (Negative) H Urine Leukocyte Esterase 3+ /uL (Negative) Urine RBC 37 /hpf (0 - 3) Urine WBC Clumps Present /hpf (None Seen) Urine Microscopic WBC 542 /HPF (0-3) H Urine Squamous Epithelial Cells Few /hpf (<5) Urine Bacteria None seen /hpf (None Seen) Urine Hyaline Casts Mod /lpf (0 - 2) Urine Yeast (Budding) Many /hpf (None Seen) Urine Glucose Normal mg/dL (Normal) Microbiology Microbiology Date/Time Source Procedure Growth Status 04/21/25 15:35 Voided Urine Urine Culture - Final Yeast, not Dulce albicans Complete Assessment/Plan Assessment/Plan 74-year-old male with a known history of CAD status post triple-vessel disease, hypertension, dyslipidemia, peripheral arterial disease, diabetic foot ulcers, sacral decubitus ulcer, presented to the hospital with a generalized weakness dehydration found to have 1. Acute kidney injury suspected secondary to vasomotor nephropathy currently improved 2. Urinary tract infection with a Enterococcus faecium 3. Left lower extremity DVT 4. Anemia status post 2 units of packed RBC 5. Bilateral diabetic foot ulcer 6. Coronary artery disease status post CABG 7. Hypertension 8. Diabetes mellitus type 2 9. Peripheral arterial disease -continue p.o. antibiotics, social welfare clerk consultation for placement, hospitalist evaluation per social welfare clerk -continue Eliquis for DVT, risks benefits and alternatives of Eliquis including life-threatening bleeding disability explained to the patient in detail who understand verbalized understanding and agreeable to plan.. -discharge plan to home with a home hospice. Plan discussed with: Patient My Orders Orders - ANDREW DIAMOND MD Procedure Category Date Status Time * Crude Oil Treater CONS 04/30/25 Transmitted Consult Discharge DISCHARGE 05/01/25 Transmitted 12:23 Date of Service: May 01, 2025 Billing Provider: ANDREW DIAMOND MD Common Visit Codes: [id number] INP/OBS CARE(MOD) ANDREW DIAMOND MD May 01, 2025 12:57
[2025-05-01 13:00] VITALS: BP 154/73; PULSE 86; RESP 17; TEMP 98.2; O2SAT 99
[2025-05-04] MEDS ORDERED: APIXABAN 5 MG TAB PO SCH (10:00)
== END 2025-05-01 16:24 | disposition hospice, home (50) | DRG 640 ==
LOC: ER 16:52 → EDBD 16:52 → OVERFLOW 20:46 → WEST WING 21:04
PROVIDERS: ADMIT Student in an Organized Health Care Education/Training Program; ATTEND Student in an Organized Health Care Education/Training Program
PROC: 05HA33Z Insertion of Infusion Device into Left Brachial Vein, Percutaneous Approach (ICD-10-PCS; 2025-04-23)
PROC: B54NZZA Ultrasonography of Left Upper Extremity Veins, Guidance (ICD-10-PCS; 2025-04-23)
PROC: 30233N1 Transfusion of Nonautologous Red Blood Cells into Peripheral Vein, Percutaneous Approach (ICD-10-PCS; 2025-04-24)
PROC: 30233K1 Transfusion of Nonautologous Frozen Plasma into Peripheral Vein, Percutaneous Approach (ICD-10-PCS; principal; 2025-04-25)
DX: E86.0 Dehydration (principal); N17.0 Acute kidney failure with tubular necrosis; N39.0 Urinary tract infection, site not specified; I13.0 Hypertensive heart and chronic kidney disease with heart failure and stage 1 through stage 4 chronic kidney disease, or unspecified chronic kidney disease; I82.432 Acute embolism and thrombosis of left popliteal vein; L97.529 Non-pressure chronic ulcer of other part of left foot with unspecified severity; N18.9 Chronic kidney disease, unspecified; I50.9 Heart failure, unspecified; E11.621 Type 2 diabetes mellitus with foot ulcer; Z20.822 Contact with and (suspected) exposure to COVID-19; E11.22 Type 2 diabetes mellitus with diabetic chronic kidney disease; E11.51 Type 2 diabetes mellitus with diabetic peripheral angiopathy without gangrene; E78.5 Hyperlipidemia, unspecified; E11.65 Type 2 diabetes mellitus with hyperglycemia; L89.152 Pressure ulcer of sacral region, stage 2; D63.8 Anemia in other chronic diseases classified elsewhere; I25.10 Atherosclerotic heart disease of native coronary artery without angina pectoris; B95.2 Enterococcus as the cause of diseases classified elsewhere; L97.519 Non-pressure chronic ulcer of other part of right foot with unspecified severity; Z79.01 Long term (current) use of anticoagulants; Z82.3 Family history of stroke; Z85.47 Personal history of malignant neoplasm of testis; Z95.1 Presence of aortocoronary bypass graft; Z79.899 Other long term (current) drug therapy; Z79.82 Long term (current) use of aspirin; Z79.84 Long term (current) use of oral hypoglycemic drugs; R00.0 Tachycardia, unspecified
CPT/HCPCS: 36415; 71045; 80048; 80061; 80307; 81001; 82306; 82607; 82728; 82962; 83036; 83540; 83550; 83605; 83880; 83970; 84484; 85007; 85025; 85027; 85384; 85610; 85730; 86850; 86900; 86901; 86920; 87086; 87088; 87186; 87426; 87804; 93005; 93970; 97110; 97116; 97163; 97530; G0378; J1815; J2405

== ENCOUNTER 2025-05-04 10:32 | Inpatient (IN) | payer OTHER, MEDICAID, MEDICARE ==
[~2025-05-04] VITALS: Ht 172.7 cm; Wt 69.1 kg
[~2025-05-04 10:32] MED LIST changes: +APIX5TAB PO; -ATOR10TA52 PO; +ATOR20TA50 PO; -CIPR-173 PO; -DOXY100C79 PO; +LINE1TAB6 PO; -METR-344 PO; +NUTR-1405 PO; +PANT40T PO
[2025-05-04] MEDS ORDERED: SODIUM CHLORIDE 0.9% 1,000 ML IV ONE (10:45)
--- NOTE | 2025-05-04 11:21 | DVH ---
CHEST RADIOGRAPH Indication: sob Technique: Single frontal view of the chest was obtained COMPARISON: XY CHEST PORTABLE on DOS: 04/20/25, XY CHEST PORTABLE on DOS: 04/05/25, XY CHEST PORTABLE o n DOS: 03/09/25, XY CHEST TWO VIEWS ROUTINE on DOS: 02/27/25, CHEST XRAY 1 VIEW on DOS: 06/12/21 FINDINGS: Lines and Tubes: None Lungs: Clear Pleura: No effusion. No pneumothorax. Cardiomediastinal contours: Unremarkable Bones: Unremarkable IMPRESSION: No acute disease.
--- NOTE | 2025-05-04 11:26 | ED.PDOC ---
History of Present Illness HPI Comments 74 y/o M is BIBA from private residence for c/c of generalized weakness. Significant history of Triple-vessel CAD, cancer, CKF III, DM type II w/peripheral neuropathy, HLD, HTN, PAD, left lower extremity DVT, and home hospice care. Per EMS report, patient called after being unable to get up after using his toilet, this morning, an hour prior to arrival. On scene, patient's left leg was remarked to have been entirely 'purple,' which improved en route. All other vitals are commented to have been stable and within normal limits en route. Patient is pending surgery, currently, for left leg DVT he was diagnosed with 1x week ago, due to recent debridement of necrotic right toe. He is also r eported to have total cessation of his Eliquis for over the past 3x days under advice of his home hospice nurse, due to excessive bruising he has been experiencing, lately. Denial of any chest pain, shortness of breath, lightheadedness, fever, chills, dysuria, or further associated symptoms. Chief Complaint: General Weakness Time Seen by MD: 10:40 Primary Care Provider: LEON Reviewed Notes: Nurses Notes, Demolition Hammer Operator Notes, Medications, Allergies Allergies: Coded Allergies: NO KNOWN ALLERGIES (Unverified , 06/12/21) Home Meds Active Scripts Apixaban Base (ELIQUIS) 5 Mg Tab, 10 MG PO BID for 2 Days, #6 TAB Eliquis 10 mg twice daily till 05/02 Eliquis 5 mg twice daily starting 05/03 Prov:ANDREW DIAMOND MD 05/01/25 Linezolid (Zyvox) 600 Mg Tab, 600 MG PO BID for 7 Days, #14 TAB Prov:PLACIDO LUGO 04/28/25 Pantoprazole Sodium Sesquihydr (Pantoprazole Sodium) 40 Mg Tab, 40 MG PO DAILY for 30 Days, #30 TAB Prov:PLACIDO LUGO 04/28/25 Nutritional Supplements (Glucerna Carbsteady) 1 Liq Liq, 240 ML PO TIDWM for 30 Days, #30 LIQ Prov:PLACIDO LUGO 04/28/25 Apixaban Base (ELIQUIS) 5 Mg Tab, 5 MG PO BID for 30 Days, #60 TAB Prov:PLACIDO LUGO 04/28/25 Atorvastatin Calcium (ATORVASTATIN CALCIUM) 20 Mg Tab, 20 MG PO HS for 30 Days, #30 TAB Prov:[facility] 04/28/25 Carvedilol (Carvedilol) 12.5 Mg Tab, 12.1 TAB PO BID for 30 Days, #60 TAB Prov:[facility] 04/28/25 Tamsulosin Hcl (Tamsulosin Hcl) 0.4 Mg Cap, 0.4 MG PO QPM for 30 Days, #30 MG Prov:[facility] 04/28/25 Amlodipine Besylate (Amlodipine Besylate) 5 Mg Tab, 1 TAB PO DAILY for 30 Days, #30 TAB Prov:[facility] 04/28/25 Aspirin (Aspirin Adult Low Dose) 81 Mg Tab, 1 TAB PO DAILY for 30 Days, #30 TAB Prov:[facility] 04/28/25 Hydrocodone-Acetaminophen (Hydrocodone Bitartrate/AC 5-325 mg) 1 Tab Tab, 1 TAB PO BID PRN, #40 TAB Prov:ADARSH WILLIS MD 03/04/25 Rifampin (Rifampin) 300 Mg Cap, 300 MG PO BID, #90 CAP Prov:ADARSH WILLIS MD 03/04/25 Reported Medications Hydrochlorothiazide (Hydrochlorothiazide) 25 Mg Tab, 50 MG PO DAILY for 14 Days, #14 04/11/25 Glipizide (Glipizide) 5 Mg Tab, 1 TAB PO BID for 14 Days, #28 04/11/25 Furosemide (Furosemide) 40 Mg Tab, 1 TAB PO DAILY 02/24/25 Calcium Carbonate-Cholecalcife (Calcium 500-10 mg-Mcg) 1 Chw Chw, 1 TAB PO BID 02/24/25 Metformin HCl (Metformin Hydrochloride) 500 Mg/5 Ml Gwendolyn, 500 MG PO, ML 06/13/21 Discontinued Reported Medications Atorvastatin Calcium (ATORVASTATIN CALCIUM) 10 Mg Tab, 10 MG PO DAILY, TAB 06/13/21 Discontinued Scripts Apixaban Base (ELIQUIS) 5 Mg Tab, 10 MG PO BID for 6 Days, #24 TAB Eliquis 10 mg twice daily till 05/04 Eliquis 5 mg twice daily starting 05/04 Prov:[facility] 04/28/25 Metronidazole (Flagyl) 500 Mg Tab, 500 MG PO TID for 42 Days, #126 TAB Prov:MARITZA FARRAR MD 03/04/25 Ciprofloxacin Hcl (Cipro) 500 Mg Tab, 1 TAB PO BID, #90 TAB Prov:ADARSH WILLIS MD 03/04/25 Doxycycline (Monohydrate) (Doxycycline) 100 Mg Cap, 100 MG PO BIDAC, #90 CAP Prov:ADARSH WILLIS MD 03/04/25 Information Source: Patient, Emergency Med Personnel Mode of Arrival: EMS Severity: Moderate Timing: Hours Duration: Since onset Prehospital treatment: 12 Lead EKG, Accucheck, Supervisor [employer] Past Medical History PAST MEDICAL HISTORY: CAD (tripple-vessel), Cancer, CKF (stage III), DM (type II w/peripheral neuropathy), High Lipids, HTN, PAD Past Medical History (Other): Left lower extremity DVT Surgical History: Tonsillectomy Surgical History (Other): debridement of necrotic right toe Family History Family History: No family hx of Cancer, No family hx of Heart darrell, No family hx ofKidney darrell, No family hx of Liver darrell, No family hx of Lung darrell, No family hx of Stroke, Family hx of DM, Family hx of HTN Social History Smoker: Non-Smoker Alcohol: Rarely Drugs: Denies Drug Use Lives In: Home, Assisted Care (Home hospice care ) All Other Systems: Reviewed and Negative (Comprehensive systems review obtained and negative except for what is stated in the HPI.) Physical Exam General Appearance: Moderate Distress HEENT: Normal ENT Inspection, Pharynx Normal, TMs Normal Neck: Full Range of Motion, Non-Tender, Normal, Normal Inspection Respiratory: Chest Non-Tender, Lungs Clear, No Accessory Muscle Use, No Respiratory Distress, Normal Breath Sounds Cardiovascular: No Edema, No JVD, No Murmur, No Gallop, Normal Peripheral Pulses, Regular Rate/Rhythm Breast Exam: Deferred Gastrointestinal: No Organomegaly, Non Tender, No Pulsatile Mass, Normal Bowel Sounds, Soft Genitalia: Deferred Pelvic: Deferred Rectal: Deferred Extremities: No calf tenderness, Normal capillary refill, No pedal edema, Swelling (Left lower extremity) Musculoskeletal : Apperance: Normal Neurologic: Alert, No Motor Deficits, Normal Mood, No Sensory Deficits Cerebellar Function: NOT DONE Reflexes: NOT DONE Skin: Dry, Normal Color, Warm, Wounds (Bilateral lower extremity) Peripheral Pulses: 3+ Radial (R), 3+ Radial (L) Lymphatic: No Adenopathy Was a procedure done? Was a procedure done?: No EKG EKG : Pulse Rate (adult): 98 [place]: Normal Cardiac Rhythm: NSR Block: None Hypertrophy: None ST: Normal Differential Dx Considerations may include: Viral syndrome, electrolyte imbalance, dehydration, UTI, URI, sepsis, acute kidney failure, among others X-Ray, Labs, Meds, VS Vital Signs Date Time Temp Pulse Resp B/P (MAP) Pulse Ox O2 Delivery O2 Flow Rate FiO2 05/04/25 11:26 98 05/04/25 10:56 98.6 97 17 124/72 96 98.6 05/04/25 10:36 98 Lab Test 05/04/25 12:42 05/04/25 00:00 Range/Units White Blood Count Pending Red Blood Count Pending Hemoglobin Pending Hematocrit Pending Mean Corpuscular Volume Pending Mean Corpuscular Hemoglobin Pending Mean Corpuscular Hemoglobin Concent Pending Red Cell Distribution Width Pending Platelet Count Pending Mean Platelet Volume Pending Neutrophils (%) (Auto) Pending Lymphocytes (%) (Auto) Pending Monocytes (%) (Auto) Pending Basophils (%) (Auto) Pending Neutrophils # (Auto) Pending Lymphocytes # (Auto) Pending Monocytes # (Auto) Pending Troponin I High Sensitivity Pending Sodium Level 139 136-145 mmol/L Potassium Level 5.2 H 3.5-5.1 mmol/L Chloride Level 100 98-107 mmol/L Carbon Dioxide Level 28 20-31 mmol/L Anion Gap 11 5-15 Blood Urea Nitrogen 46 H 9-23 mg/dL Creatinine 1.79 H 0.700-1.30 mg/dL Glomerular Filtration Rate Calc 39 >90 mL/min BUN/Creatinine Ratio 25.7 H 10.0-20.0 Serum Glucose 174 H 74-106 mg/dL Calcium Level 9.2 8.7-10.4 mg/dL Patient alert. He does have wounds on bilateral lower extremity. He is on hospice. Vitals stable. Potassium is elevated. Kidney function elevated. Blood sugar elevated. Establish intravenous access. Was given fluids. DVT study is showing clot. Hyperkalemia treatment. Explained to the patient. Continue monitoring. Time of 1ST Reevaluation: 11:10 Reevaluation 1ST: Unchanged Patient Education/Counseling: Diagnosis, Treatment, Other (need for admission ) Family Education/Counseling: No Family Present SEPSIS Sepsis Screen Date sepsis recognized/suspect: May 04, 2025 Time Sepsis recognized/suspect: 1059 Recent Procedure: No On Antibiotic Therapy: No Respiratory Rate >20: No Heart Rate >90: Yes Temp<36 C (96.8 F) or >38.3 C: No SBP <90 or MAP <65 mmHG: No New Acute Mental Status Change: No Is the patient on CPAP, BIPAP,: No Physician Orders Troponin-I Hs (05/04/25 10:45) Complete Blood Count (05/04/25 10:45) Chest Portable (05/04/25 10:45) Urinalysis (05/04/25 10:45) Sodium Chloride 0.9% (05/04/25 10:45) Bilat Lower Dvt (05/04/25 10:45) Electrocardigram (05/04/25 10:52) Vital Signs Date Time Temp Pulse Resp B/P (MAP) Pulse Ox O2 Delivery O2 Flow Rate FiO2 05/04/25 11:26 98 05/04/25 10:56 98.6 97 17 124/72 96 98.6 05/04/25 10:36 98 Laboratory Tests Test 05/04/25 12:42 White Blood Count Pending Departure 1 Departure Time of Disposition: 13:35 Impression: Primary Impression: Hyperkalemia Additional Impressions: Diabetic foot Chronic kidney disease Qualified Codes: N18.9 - Chronic kidney disease, unspecified Disposition: 09 ADMITTED INPATIENT Admit to: Med Surg Condition: Guarded Critical Care Note Critical Care Time?: Yes (90 min-critical care time only) Stability Stability form required: No Heart Score Heart Score: Heart Score Response (Comments) Value History Moderate Suspicious 1 EKG Normal 0 Age >65 2 Risk Factors >3 or Hx ASHD 2 Troponin >3 x's Normal limit 2 Total 7 I personally scribed for RASHMI CALLES MD ([email or web address]) on 05/04/25 at 11:26. Electronically submitted by Edwin Vera [email or web address]). RASHMI CALLES MD May 04, 2025 11:26
--- NOTE | 2025-05-04 12:24 | DVH ---
Bilateral lower extremity venous duplex Clinical History: dvt Comparison: US BILAT LOWER DVT on DOS: 04/20/25, US BILAT LOWER DVT on DOS: 03/10/25, US BILAT LOW EXT A RT DUPLEX on DOS: 02/28/25 Technique: Duplex Doppler evaluation of the deep venous systems of both lower extremities from the common femora l veins to the popliteal veins including color Doppler and spectral/pulsed waveform analysis was perf ormed. Findings: RIGHT SIDE: The common femoral vein demonstrates appropriate compressibility and waveform variability. There is compressibility/patency of the great saphenous vein at the proximal thigh. The femoral vein demonstrates appropriate compressibility and waveform variability. The deep femoral vein demonstrates appropriate compressibility and waveform variability. The popliteal vein demonstrates appropriate compressibility and waveform variability. There is normal compressibility at the tibioperoneal trunk. LEFT SIDE: The common femoral vein demonstrates appropriate compressibility and waveform variability. There is compressibility/patency of the great saphenous vein at the proximal thigh. The femoral vein demonstrates appropriate compressibility and waveform variability. The deep femoral vein demonstrates appropriate compressibility and waveform variability. The popliteal vein demonstrates intraluminal thrombus and noncompressibility. There is normal compressibility at the tibioperoneal trunk. Impression: No right DVT. Unchanged nonocclusive thrombus in the left popliteal vein.
[2025-05-04 12:38] VITALS: PULSE 89; RESP 11; O2SAT 97
[2025-05-04 13:15] LABS: Chloride 100 mmol/L (98-107); Sodium 139 mmol/L (136-145)
[2025-05-04 13:16] LABS: Anion Gap 11 (5-15); Carbon Dioxide 28 mmol/L (20-31)
[2025-05-04 13:17] LABS: Calcium 9.2 mg/dL (8.7-10.4)
[2025-05-04 13:22] LABS: BUN/Creatinine Ratio 25.7 (10.0-20.0)
[2025-05-04 13:27] LABS: Blood Urea Nitrogen 46 mg/dL (9-23); Glucose 174 mg/dL (74-106); Potassium 5.2 mmol/L (3.5-5.1)
[2025-05-04] MEDS: ALBUTEROL SULF 2.5 MG/0.5ML(0.5%) NEB SOLN NEB ONE (14:00)
[2025-05-04] MEDS: CALCIUM GLUC 1,000mg/50ml-NS 50 ML IV ONE (14:13)
[2025-05-04] MEDS: SODIUM CHLORIDE 0.9% 1,000 ML IV ONE ×2 (14:14→17:39)
[2025-05-04] MEDS: SODIUM BICARB 8.4% 50Meq/50ml SYR INJ IV ONE (14:14)
[2025-05-04 14:15] LABS: Hematocrit 29.0 % (41.0-53.0); Hemoglobin 9.9 g/dL (13.5-17.5); Mean Corpuscular Hemoglobin 32.8 pg (28.0-32.0); Mean Corpuscular Volume 96.5 fL (80.0-100.0); Nucleated Red Blood Cells % 0.1 %
--- NOTE | 2025-05-04 14:45 | ECG ---
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
[2025-05-04 14:47] LABS: Urine Protein, UAD Negative (Negative)
[2025-05-04] MEDS ORDERED: SODIUM CHLORIDE 0.9% 1,000 ML IV SCH (15:00)
[2025-05-04] MEDS: SODIUM ZIRCONIUM CYCL 10 GM PAK PO SCH (16:21)
--- NOTE | 2025-05-04 17:06 | DVHHPRES ---
History of Present Illness Resident Creating Document: TAMI LOPEZ RESIDENT History of Present Illness 74-year-old male with previous history of triple-vessel CAD, testicular cancer, CKD on stage III, type 2 diabetes mellitus with peripheral neuropathy, hyperlipidemia, hypertension, peripheral artery disease, left lower extremity DVT on Eliquis and home hospice care presented to the ER with a history of left leg purple discoloration since last 3 days. The patient was diagnosed with nonocclusive thrombus of the left popliteal vein last week. He denies any chest pain, shortness of breath, abdominal pain or any other complaints today. The patient was admitted at [facility] in February, during the time the patient underwent debridements of the right foot. The patient is not taking Eliquis due to bruising, his home health hospice nurse advised him to stop Eliquis. We restarted him on Eliquis today. Past medical history:triple-vessel CAD, testicular cancer, CKD on stage III, type 2 diabetes mellitus with peripheral neuropathy, hyperlipidemia, hypertens ion, peripheral artery disease, left lower extremity DVT Past surgical history: Tonsillectomy, debridement of necrotic right toe. Allergies: No known allergy Home medications: Apixaban, linezolid, pantoprazole, atorvastatin, carvedilol, tamsulosin, amlodipine, aspirin, hydrocodone acetaminophen, rifampin Smoking history: None Alcohol: Occasionally Drugs: Denies PCP: Dr. Avendano Code status: Full code Review of Systems Allergies: Coded Allergies: NO KNOWN ALLERGIES (Unverified , 06/12/21) Medications Current Medications Medications Dose Ordered Sig/Bandar Route Start Time Stop Time Status Last Admin Dose Admin Zirconium Oxide 10 gm TID PO 05/04/25 14:00 05/06/25 06:01 Sodium Chloride 10 ml Q8HR IV 05/04/25 22:00 Sodium Chloride 1,000 ml @ 60 mls/hr [id number] IV 05/04/25 15:00 Ondansetron HCl 4 mg Q4HP PRN IV 05/04/25 15:00 Acetaminophen 650 mg Q6HP PRN PO 05/04/25 15:00 Enoxaparin Sodium 70 mg Q12HR SC 05/04/25 22:00 UNV Exam Vital Signs Vital Signs Date Time Temp Pulse Resp B/P (MAP) Pulse Ox O2 Delivery O2 Flow Rate FiO2 05/04/25 14:43 109 05/04/25 14:38 97.0 10 144/68 (93) 97 97.0 05/04/25 14:00 Room Air* 0 21 Exam Pt is lying on bed General Appearance: Alert, Oriented X3, Cooperative, Mild distress HEENT: Atraumatic, Mucous membranes moist/pink Respiratory: Clear to auscultation, Normal air movement, No added sounds Cardiovascular: Regular rate, Normal S1, Normal S2, No murmurs Abdominal/ : Active bowel sounds, Soft, no distention, no tenderness Extremities: Bilateral ecchymosis on the legs, right great toe gangrene, left foot wrapped up in bandage, Normal arteria dorsalis pedis pulses, Skin: No Significant rash, except past surgical scars Neuro: Normal speech, sensorimotor deficits none Psych/Mental Status: Mental status NL, Mood NL Nurse was there as thread machine operator during examination Labs/Xrays Labs Test 05/04/25 14:13 05/04/25 12:42 05/04/25 00:00 Range/Units Urine Color Light-yellow Yellow Urine Clarity Clear Clear Urine pH 6.0 5.0-9.0 Urine Specific [place] 1.012 1.001-1.035 Urine Protein Negative Negative Urine Ketones Negative Negative Urine Blood Negative Negative /uL Urine Nitrite Negative Negative Urine Bilirubin Negative Negative Urine Urobilinogen Normal Negative mg/dL Urine Leukocyte Esterase 1+ Negative /uL Urine RBC 1 0 - 3 /hpf Urine Microscopic WBC 9 H 0-3 /HPF Urine Squamous Epithelial Cells Few <5 /hpf Urine Bacteria None seen None Seen /hpf Urine Hyaline Casts Few 0 - 2 /lpf Urine Glucose Normal Normal mg/dL White Blood Count 7.5 # 4.4-10.8 10^3/uL Red Blood Count 3.01 L 4.5-5.90 10^6/uL Hemoglobin 9.9 L 13.5-17.5 g/dL Hematocrit 29.0 L 41.0-53.0 % Mean Corpuscular Volume 96.5 80.0-100.0 fL Mean Corpuscular Hemoglobin 32.8 H 28.0-32.0 pg Mean Corpuscular Hemoglobin Concent 34.0 32.0-36.0 g/dL Red Cell Distribution Width 19.2 H 11.8-14.3 % Platelet Count 290 140-450 10^3/uL Mean Platelet Volume 6.8 L 6.9-10.8 fL Neutrophils (%) (Auto) 78.2 37.0-80.0 % Lymphocytes (%) (Auto) 7.9 L 10.0-50.0 % Monocytes (%) (Auto) 7.6 0.0-12.0 % Eosinophils (%) (Auto) 6.0 0.0-7.0 % Basophils (%) (Auto) 0.3 0.0-2.0 % Neutrophils # (Auto) 5.9 1.6-8.6 10 ^3/uL Lymphocytes # (Auto) 0.6 0.4-5.4 10 ^3/uL Monocytes # (Auto) 0.6 0-1.3 10 ^3/uL Eosinophils # (Auto) 0.5 0-0.8 10 ^3/uL Basophils # (Auto) 0 0-0.2 10 ^3/uL Nucleated Red Blood Cells 0.1 % Troponin I High Sensitivity 168 *H </=54 ng/L Sodium Level 139 136-145 mmol/L Potassium Level 5.2 H 3.5-5.1 mmol/L Chloride Level 100 98-107 mmol/L Carbon Dioxide Level 28 20-31 mmol/L Anion Gap 11 5-15 Blood Urea Nitrogen 46 H 9-23 mg/dL Creatinine 1.79 H 0.700-1.30 mg/dL Glomerular Filtration Rate Calc 39 >90 mL/min BUN/Creatinine Ratio 25.7 H 10.0-20.0 Serum Glucose 174 H 74-106 mg/dL Calcium Level 9.2 8.7-10.4 mg/dL SEPSIS Sepsis Screen Date sepsis recognized/suspect: May 04, 2025 Time Sepsis recognized/suspect: 1238 Recent Procedure: No On Antibiotic Therapy: No Respiratory Rate >20: No Heart Rate >90: No Temp<36 C (96.8 F) or >38.3 C: No SBP <90 or MAP <65 mmHG: No New Acute Mental Status Change: No Is the patient on CPAP, BIPAP,: No Physician Orders Chest Portable (05/04/25 10:45) Bilat Lower Dvt (05/04/25 10:45) Sodium Zirconium Cyclosilicate (Lokelma) (05/04/25 14:00) Admit (05/04/25 14:56) Sodium Chloride Lock (Saline Lock Ns) (05/04/25 22:00) Sodium Chloride 0.9% (05/04/25 15:00) Ondansetron Hcl (Zofran) (05/04/25 15:00) Complete Blood Count (05/05/25 04:00) Comprehensive Metabolic Panel (05/05/25 04:00) Cardiac Diet-2gna,Lofat,Lochol (05/04/25 Dinner) Acetaminophen Tablet (Tylenol Tablet) (05/04/25 15:00) Stat Ekg For Chest Pain (05/04/25 14:56) Notify Of Changes From Base (05/04/25 14:56) Insert Midline (05/04/25 15:46) Enoxaparin Sodium (Lovenox) (05/04/25 22:00) Vitamin B12 (05/04/25 16:48) Vitamin D, 25-Hydroxy (05/04/25 16:48) Bilat Low Ext Art Duplex (05/04/25 16:39) B-Type Natriuretic Peptide (05/04/25 16:51) Sodium Chloride 0.9% (05/04/25 17:00) Podiatry Consult (05/04/25 16:51) Vital Signs Date Time Temp Pulse Resp B/P (MAP) Pulse Ox O2 Delivery O2 Flow Rate FiO2 05/04/25 14:43 109 05/04/25 14:38 97.0 105 10 144/68 (93) 97 97.0 05/04/25 14:00 16 96 Room Air* 0 21 05/04/25 12:38 97.3 89 11 136/67 (90) 97 97.3 05/04/25 12:38 89 11 97 Room Air* 0 21 05/04/25 11:26 98 05/04/25 10:56 98.6 97 17 124/72 96 98.6 05/04/25 10:36 98 Laboratory Tests Test 05/04/25 12:42 White Blood Count 7.5 10^3/uL (4.4-10.8) # Medications Medications Dose Ordered Sig/Bandar Route Start Time Stop Time Status Last Admin Dose Admin Albuterol 20 mg ONCE ONCE NEB 05/04/25 13:45 05/04/25 13:46 DC 05/04/25 14:00 20 MG Calcium Gluconate/ Sodium Chloride 50 ml @ 120 mls/hr ONCE ONCE IV 05/04/25 13:45 05/04/25 14:09 DC 05/04/25 14:13 120 MLS/HR Sodium Bicarbonate 50 ml ONCE ONCE IV 05/04/25 13:45 05/04/25 13:46 DC 05/04/25 14:14 50 ML Sodium Chloride 1,000 ml @ 1,000 mls/hr Q1H ONCE IV 05/04/25 10:45 05/04/25 11:44 DC 05/04/25 14:14 1,000 MLS/HR Assessment/Plan Assessment/Plan #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 #Left focal stenosis in the proximal superficial femoral artery. #Occluded right dorsal pedal artery. #H/o left toe osteomyelitis #left lower extremity DVT: left popliteal vein. #CKD on stage III #type 2 diabetes mellitus with peripheral neuropathy #Hypertensive heart disease due to diastolic dysfunction #LVH #Anemia, normocytic, hypochromic, possible to CKD #Hyperkalemia #NSTEMI type 2, due to demand ischemia #Transaminitis #H/o triple-vessel CAD #H/o testicular cancer #H/o hyperlipidemia Cardiac diet Hyperkalemia treatment given: lokelma, albuterol, bicarbante and calcium IV fluids: 60 cc/h Ceftriaxone and linezolid Zofran IV Tylenol Patient was on apixaban at home but will be transitioned to enoxaparin 70 mg BID Amlodipine Atorvastatin HCTZ foot xray ordered Podiatry consult ordered Images reviewed: xray, leg US venous and the arterial hba1c Vitamin B12 and vitamin-D ordered. Patient came from SNF, is full code, code status discussed for 22 min Case discussed with Dr York Cosigned by Dr Tierney PGY2, resident Plan discussed with: Patient, Other My Orders Orders - TAMI LOPEZ RESIDENT Procedure Category Date Status Time Admit ADMIT 05/04/25 Transmitted 14:56 Sodium Chloride Lock PHA 05/04/25 In Process (Saline Lock Ns) 22:00 Sodium Chloride 0.9% PHA 05/04/25 In Process 15:00 Ondansetron Hcl PHA 05/04/25 In Process (Zofran) 15:00 Complete Blood Count LAB 05/05/25 Verified 04:00 Comprehensive LAB 05/05/25 Verified Metabolic Panel 04:00 Cardiac DIET 05/04/25 Transmitted Diet-2gna,Lofat,Lochol Dinner Acetaminophen Tablet PHA 05/04/25 In Process (Tylenol Tablet) 15:00 Stat Ekg For Chest SALVADOR 05/04/25 In Process Pain 14:56 Notify Of Changes SALVADOR 05/04/25 In Process From Base 14:56 Enoxaparin Sodium PHA 05/04/25 Logged (Lovenox) 22:00 Vitamin B12 LAB 05/04/25 Logged 16:48 Vitamin D, 25-Hydroxy LAB 05/04/25 Logged 16:48 Bilat Low Ext Art US 05/04/25 Logged Duplex 16:39 Podiatry Consult CONS 05/04/25 Transmitted 16:51 Date of Service: May 04, 2025 Billing Provider: LAUREN YORK MD [facility] May 04, 2025 17:06 LAUREN YORK MD May 10, 2025 21:40
[2025-05-04 18:14] VITALS: BP 134/78; PULSE 113; RESP 17; TEMP 97.8; O2SAT 98
--- NOTE | 2025-05-04 18:22 | DVH ---
BILATERAL LOWER EXTREMITY ARTERIAL DUPLEX ULTRASOUND STUDY: REASON FOR EXAM: PAD TECHNIQUE: The full lengths of the arterial segments were evaluated with color-flow Doppler ultrasoun d. Suspected abnormalities were evaluated with jewell scale ultrasound. Phosphoric Acid Supervisor spectral Doppler waveforms, with velocity measurements were obtained. Spectral waveforms with velocity measurements w ere obtained 2 to 4 cm central to any areas of significant stenosis. Common femoral, superficial femo ral, popliteal, posterior tibial, anterior tibial, and dorsal pedal arteries were evaluated. FINDINGS: Right: There is severe diffuse atherosclerotic plaque throughout the right lower extremity. The commo n femoral artery waveform is multiphasic with a brisk upstroke. The superficial femoral artery is pat ent with monophasic waveforms. The popliteal artery is patent with monophasic waveforms. The posteri or tibial artery and anterior tibial artery are patent with monophasic waveforms. The dorsal pedal a rtery is occluded. Left: There is severe diffuse atherosclerotic plaque throughout the left lower extremity. The common femoral artery waveform is monophasic with a sluggish upstroke. The superficial femoral and poplitea l arteries are patent with monophasic waveforms. There is focally increased velocity in the proximal SFA corresponding to greater than 50% luminal narrowing. There is significantly diminished velocity p ost stenosis in the SFA. The posterior tibial artery is patent with sluggish monophasic flow. The an terior tibial and dorsal pedal arteries are not seen due to overlying bandages. IMPRESSION: Severe peripheral arterial disease, left lower extremity worse than right. Severely diminished flow in the left lower extremity beyond a focal stenosis in the proximal superfic ial femoral artery. Occluded right dorsal pedal artery.
[2025-05-04 20:00] VITALS: PULSE 104; RESP 20; O2SAT 97
[2025-05-04 21:00] VITALS: BP 137/68; PULSE 104; RESP 20; TEMP 98.9; O2SAT 97
[2025-05-04] MEDS: SODIUM CHLOR 0.9% PF (SALINE LOCK) 10ML VIAL/SYR IV SCH (21:56)
[2025-05-04] MEDS: ENOXAPARIN SOD 80 MG/0.8ML SYRINGE SC SCH (21:56)
[2025-05-05] VITALS (8 sets, daily range): BP systolic 113–127; BP diastolic 42–73; PULSE 51–103; RESP 17–18; TEMP 98.1–98.9; O2SAT 96–99
[2025-05-05] MEDS: ATORVASTATIN 20 MG TAB PO ONE (01:00)
[2025-05-05] MEDS: LINEZOLID 600MG/300ML 300 ML IV SCH (02:59)
[2025-05-05 08:24] LABS: Hematocrit 23.6 % (41.0-53.0); Hemoglobin 8.0 g/dL (13.5-17.5); Mean Corpuscular Hemoglobin 32.4 pg (28.0-32.0); Mean Corpuscular Volume 95.5 fL (80.0-100.0); Nucleated Red Blood Cells % 0.0 %
--- NOTE | 2025-05-05 08:28 | DVH ---
CLINICAL INDICATION: Foot gangrene TECHNIQUE: 3 radiographic views of the left foot were obtained. Comparison: MRI MRI R FOOT WO CONTRAST on DOS: 02/24/25, CT CT R FOOT WO CONTRAST on DOS: 02/23/25 FINDINGS/IMPRESSION: There is no evidence of acute fracture or dislocation. The visualized joint space is well maintained. The alignment is anatomical. There is no radiopaque foreign body.
[2025-05-05 08:40] LABS: Alanine Aminotransferase 27 U/L (7-40); Albumin 3.6 g/dL (3.2-4.8); Anion Gap 9 (5-15); BUN/Creatinine Ratio 18.6 (10.0-20.0); Calcium 8.9 mg/dL (8.7-10.4); Carbon Dioxide 30 mmol/L (20-31); Chloride 102 mmol/L (98-107); Sodium 141 mmol/L (136-145)
[2025-05-05 08:41] LABS: Bilirubin, Total 0.4 mg/dL (0.2-1.0)
[2025-05-05 08:43] LABS: Alkaline Phosphatase 143 U/L (46-116); Blood Urea Nitrogen 29 mg/dL (9-23); Glucose 129 mg/dL (74-106); Potassium 3.4 mmol/L (3.5-5.1)
[2025-05-05 10:38] LABS: Total Protein 7.1 g/dL (5.7-8.2)
[2025-05-05] MEDS: hydroCHLOROthiazide 25 MG TAB PO SCH (10:43)
--- NOTE | 2025-05-05 12:41 | DVHCONRES ---
Date Seen: May 05, 2025 Reason for Consultation Worsening gangrene left foot History of Present Illness 74-year-old male with previous history of triple-vessel CAD, testicular cancer, CKD on stage III, type 2 diabetes mellitus with peripheral neuropathy, hyperlipidemia, hypertension, peripheral artery disease, left lower extremity DVT on Eliquis and home hospice care presented to the ER with a history of left leg purple discoloration since last 3 days. The patient was diagnosed with nonocclusive thrombus of the left popliteal vein last week. He denies any chest pain, shortness of breath, abdominal pain or any other complaints today. The patient was admitted at [facility] in February, during the time the patient underwent debridements of the right foot. The patient is not taking Eliquis due to bruising, his home health hospice nurse advised him to stop Eliquis. We restarted him on Eliquis today. Past Medical History See H&P Past Surgical History See H&P Family History: Cerebrovascular accident (CVA) G8 MOTHER FH: CABG (coronary artery bypass surgery) G8 FATHER FH: liver disease G8 FATHER Hepatitis C G8 FATHER Allergies: Coded Allergies: NO KNOWN ALLERGIES (Unverified , 06/12/21) Home Meds Active Scripts Apixaban Base (ELIQUIS) 5 Mg Tab, 10 MG PO BID for 2 Days, #6 TAB Eliquis 10 mg twice daily till 05/02 Eliquis 5 mg twice daily starting 05/03 Prov:ANDREW DIAMOND MD 05/01/25 Linezolid (Zyvox) 600 Mg Tab, 600 MG PO BID for 7 Days, #14 TAB Prov:PLACIDO LUGO 04/28/25 Pantoprazole Sodium Sesquihydr (Pantoprazole Sodium) 40 Mg Tab, 40 MG PO DAILY for 30 Days, #30 TAB Prov:PLACIDO LUGO 04/28/25 Nutritional Supplements (Glucerna Carbsteady) 1 Liq Liq, 240 ML PO TIDWM for 30 Days, #30 LIQ Prov:PLACIDO LUGO 04/28/25 Apixaban Base (ELIQUIS) 5 Mg Tab, 5 MG PO BID for 30 Days, #60 TAB Prov:PLACIDO LUGO 04/28/25 Atorvastatin Calcium (ATORVASTATIN CALCIUM) 20 Mg Tab, 20 MG PO HS for 30 Days, #30 TAB [facility] 04/28/25 Carvedilol (Carvedilol) 12.5 Mg Tab, 12.1 TAB PO BID for 30 Days, #60 TAB [facility] 04/28/25 Tamsulosin Hcl (Tamsulosin Hcl) 0.4 Mg Cap, 0.4 MG PO QPM for 30 Days, #30 MG Prov:[facility] 04/28/25 Amlodipine Besylate (Amlodipine Besylate) 5 Mg Tab, 1 TAB PO DAILY for 30 Days, #30 TAB Prov:[facility] 04/28/25 Aspirin (Aspirin Adult Low Dose) 81 Mg Tab, 1 TAB PO DAILY for 30 Days, #30 TAB Prov:[facility] 04/28/25 Hydrocodone-Acetaminophen (Hydrocodone Bitartrate/AC 5-325 mg) 1 Tab Tab, 1 TAB PO BID PRN, #40 TAB Prov:ADARSH WILLIS MD 03/04/25 Rifampin (Rifampin) 300 Mg Cap, 300 MG PO BID, #90 CAP Prov:ADARSH WILLIS MD 03/04/25 Reported Medications Hydrochlorothiazide (Hydrochlorothiazide) 25 Mg Tab, 50 MG PO DAILY for 14 Days, #14 04/11/25 Glipizide (Glipizide) 5 Mg Tab, 1 TAB PO BID for 14 Days, #28 04/11/25 Furosemide (Furosemide) 40 Mg Tab, 1 TAB PO DAILY 02/24/25 Calcium Carbonate-Cholecalcife (Calcium 500-10 mg-Mcg) 1 Chw Chw, 1 TAB PO BID 02/24/25 Metformin HCl (Metformin Hydrochloride) 500 Mg/5 Ml Gwendolyn, 500 MG PO, ML 06/13/21 Discontinued Reported Medications Atorvastatin Calcium (ATORVASTATIN CALCIUM) 10 Mg Tab, 10 MG PO DAILY, TAB 06/13/21 Discontinued Scripts Apixaban Base (ELIQUIS) 5 Mg Tab, 10 MG PO BID for 6 Days, #24 TAB Eliquis 10 mg twice daily till 05/04 Eliquis 5 mg twice daily starting 05/04 [facility] 04/[facility] Metronidazole (Flagyl) 500 Mg Tab, 500 MG PO TID for 42 Days, #126 TAB Prov:MARITZA FARRAR MD 03/04/25 Ciprofloxacin Hcl (Cipro) 500 Mg Tab, 1 TAB PO BID, #90 TAB Prov:ADARSH WILLIS MD 03/04/25 Doxycycline (Monohydrate) (Doxycycline) 100 Mg Cap, 100 MG PO BIDAC, #90 CAP Prov:ADARSH WILLIS MD 03/04/25 Current Medications Current Medications Medications (Trade) Dose Ordered Sig/Bandar Route PRN Reason Start Time Stop Time Status Last Admin Zirconium Oxide (Lokelma) 10 gm TID PO 05/04/25 14:00 05/06/25 06:01 05/05/25 05:08 Sodium Chloride (Saline Lock Ns) 10 ml Q8HR IV 05/04/25 22:00 05/05/25 05:04 Sodium Chloride 1,000 ml @ 60 mls/hr [id number] IV 05/04/25 15:00 05/04/25 17:12 DC Ondansetron HCl (Zofran) 4 mg Q4HP PRN IV NAUSEA / VOMITING 05/04/25 15:00 Acetaminophen (Tylenol Tablet) 650 mg Q6HP PRN PO PAIN SCALE 1-3 OR TEMP>100.4 05/04/25 15:00 Enoxaparin Sodium (Lovenox) 70 mg Q12HR SC 05/04/25 22:00 05/05/25 10:43 Amlodipine Besylate (Norvasc Tablet) 5 mg DAILY PO 05/05/25 10:00 05/05/25 10:44 Atorvastatin Calcium (Lipitor) 20 mg HS PO 05/05/25 22:00 Hydrochlorothiazide (hydroCHLOROthiazide TABLET) 25 mg DAILY PO 05/05/25 10:00 05/05/25 10:43 Ceftriaxone Sodium/Dextrose 50 ml @ 50 mls/hr DAILY@2100 IV 05/04/25 22:30 05/04/25 22:30 Linezolid 300 ml @ 150 mls/hr Q12HR IV 05/04/25 22:00 05/05/25 10:43 Vital Signs Vital Signs Date Time Temp Pulse Resp B/P (MAP) Pulse Ox O2 Delivery O2 Flow Rate FiO2 05/05/25 10:44 126/67 05/05/25 09:00 98.1 89 17 96 98.1 05/05/25 08:00 Room Air* 0 21 Physical Exam Dermatological: Skin is dry with mild erythema and some maceration around the wound site No gross deformities noted Mild non-pitting edema present bilaterally Left foot multiple areas of gangrene on the toes and plantar foot as well as dorsally Vascular: Dorsalis pedis and posterior tibial pulses are 1+ bilaterally Capillary refill is under 2 seconds Skin temperature is warm bilaterally Neurologic: Protective sensation is absent on the plantar forefoot bilaterally Monofilament testing reveals decreased sensation in multiple plantar sites Musculoskeletal: Range of motion at the ankle and MTP joints is within normal limits. Strength is 5/5 in all tested muscle groups. Gait is antalgic due to offloading of the affected limb. Labs/Diagnostic Data Labs Test 05/05/25 08:00 05/04/25 17:44 05/04/25 14:13 05/04/25 12:42 Range/Units White Blood Count 6.4 4.4-10.8 10^3/uL Red Blood Count 2.48 L 4.5-5.90 10^6/uL Hemoglobin 8.0 #L 13.5-17.5 g/dL Hematocrit 23.6 #L 41.0-53.0 % Mean Corpuscular Volume 95.5 80.0-100.0 fL Mean Corpuscular Hemoglobin 32.4 H 28.0-32.0 pg Mean Corpuscular Hemoglobin Concent 33.9 32.0-36.0 g/dL Red Cell Distribution Width 18.8 H 11.8-14.3 % Platelet Count 264 140-450 10^3/uL Mean Platelet Volume 6.5 L 6.9-10.8 fL Neutrophils (%) (Auto) 70.2 37.0-80.0 % Lymphocytes (%) (Auto) 11.9 10.0-50.0 % Monocytes (%) (Auto) 8.9 0.0-12.0 % Eosinophils (%) (Auto) 8.7 H 0.0-7.0 % Basophils (%) (Auto) 0.3 0.0-2.0 % Neutrophils # (Auto) 4.5 1.6-8.6 10 ^3/uL Lymphocytes # (Auto) 0.8 0.4-5.4 10 ^3/uL Monocytes # (Auto) 0.6 0-1.3 10 ^3/uL Eosinophils # (Auto) 0.6 0-0.8 10 ^3/uL Basophils # (Auto) 0 0-0.2 10 ^3/uL Nucleated Red Blood Cells 0.0 % Sodium Level 141 136-145 mmol/L Potassium Level 3.4 L 3.5-5.1 mmol/L Chloride Level 102 98-107 mmol/L Carbon Dioxide Level 30 20-31 mmol/L Anion Gap 9 5-15 Blood Urea Nitrogen 29 #H 9-23 mg/dL Creatinine 1.56 H 0.700-1.30 mg/dL Glomerular Filtration Rate Calc 46 >90 mL/min BUN/Creatinine Ratio 18.6 10.0-20.0 Serum Glucose 129 H 74-106 mg/dL Calcium Level 8.9 8.7-10.4 mg/dL Total Bilirubin 0.4 0.2-1.0 mg/dL Aspartate Amino Transferase (AST) 20 13-40 U/L Alanine Aminotransferase (ALT) 27 7-40 U/L Alkaline Phosphatase 143 H 46-116 U/L Total Protein 7.1 5.7-8.2 g/dL Albumin 3.6 3.2-4.8 g/dL Vitamin B12 Level 719 211-911 pg/mL Vitamin D 25-Hydroxy 30.5 30.0-100 ng/mL Urine Color Light-yellow Yellow Urine Clarity Clear Clear Urine pH 6.0 5.0-9.0 Urine Specific [place] 1.012 1.001-1.035 Urine Protein Negative Negative Urine Ketones Negative Negative Urine Blood Negative Negative /uL Urine Nitrite Negative Negative Urine Bilirubin Negative Negative Urine Urobilinogen Normal Negative mg/dL Urine Leukocyte Esterase 1+ Negative /uL Urine RBC 1 0 - 3 /hpf Urine Microscopic WBC 9 H 0-3 /HPF Urine Squamous Epithelial Cells Few <5 /hpf Urine Bacteria None seen None Seen /hpf Urine Hyaline Casts Few 0 - 2 /lpf Urine Glucose Normal Normal mg/dL Troponin I High Sensitivity 168 *H </=54 ng/L B-Type Natriuretic Peptide 481.02 0-100 pg/mL Problems(with codes): (1) Cyclical vomiting (2) Cholelithiasis (3) Hypokalemia (4) Azotemia (5) Urinary retention (6) Generalized weakness (7) Peripheral vascular disease (8) Triple vessel coronary artery disease (9) Foot osteomyelitis, right (10) Near syncope (11) Autonomic dysfunction (12) Eschar of heel (13) Gravely disabled (14) Acute kidney injury superimposed on CKD (15) Diabetic foot (16) Chronic kidney disease (17) Hyperkalemia Plan/Recommendation ASSESSMENT: Patient is a 74-year-old seen on the floor for worsening gangrene left foot PLAN: - The patients chart was reviewed, clinical findings were discussed with the patient, the etiologies of the conditions were discussed in detail, and a johnny tment plan was agreed to at this time, with both oral and written instructions provided. - due to significance left discoloration on the left foot recommend stat vascular consult - foot may be unsalvageable at this point - Betadine on the left foot to keep dry - right foot appears to be healing appropriately - may require BKA pending blood flow, but defer to vascular All questions were answered and concerns addressed to the patient's satisfaction. The patient was given the phone number to the clinic and was told how to make contact with the clinic should any concerns or questions arise. Patient understands that if any questions or concerns arise prior to the next appointment, we should be contacted immediately. FOLLOW-UP: Continue to follow while inpatient Plan discussed with: Patient Visit Coding Podiatry Date of Service if different f: May 05, 2025 Billing Provider: MENDOZA LEWIS DPM Podiatry Common Visit Codes: CONSULT ONLY Podiatry Consult Codes: 18004-GK/OBS CONSLTJ NEW/EST HI 80 MENDOZA LEWIS DPM May 05, 2025 12:41
--- NOTE | 2025-05-05 14:33 | PRN ---
Misceleneous Note Note Note vasc surg unavailable. will consult gen surg and cardio for possible endovascular intervention LAUREN MA MD May 05, 2025 14:33
--- NOTE | 2025-05-05 15:43 | DVHINCON2 ---
Date Seen: May 05, 2025 Referring Physician MD Jaylen Reason for Consultation PAD History of Present Illness This is a 74-year-old male patient who presents to the emergency room with chief complaint of generalized weakness and left lower extremity pain. The patient also mentions that his left lower extremity including his foot have turned "purple" within the last few days prior to emergency room arrival. Cardiology has been consulted now for peripheral arterial disease. Initial twelve lead electrocardiogram reveals sinus tachycardia with PAC, right bundle branch block, and left ventricular hypertrophy. The patient denies any cardiac symptoms such as chest pain, shortness of breath, palpitations, or dizziness. Initial troponin level of 168ng/L. Significant past medical history includes severe three-vessel coronary artery disease, hypertension, dyslipidemia, severe peripheral arterial disease, chronic kidney disease, type 2 diabetes mellitus, and left testicular cancer status post left orchiectomy in 1993. The patient was recently seen at this facility and underwent a coronary angiogram with left heart catheterization on 03/11/2025 which revealed severe three-vessel coronary artery disease, in which no intervention was done at that time. Consideration for higher level of care was recommended for possible high-risk PCI versus CABG. The patient has refused CABG and/or possible high-risk PCI. The patient does not follow up with Cardiology in the outpatient setting. The patient was recently seen at this facility and discharged on 05/01/2025 on home health care. Past Medical History Past medical history reviewed. No other significant than mentioned above. Past Surgical History Left orchiectomy in 1993 Bilateral cataract surgery Family History: Cerebrovascular accident (CVA) G8 MOTHER FH: CABG (coronary artery bypass surgery) G8 FATHER FH: liver disease G8 FATHER Hepatitis C G8 FATHER Family History Family history reviewed. Social History Denies the use of tobacco, alcohol or illicit drugs. Allergies: Coded Allergies: NO KNOWN ALLERGIES (Unverified , 06/12/21) Home Meds Active Scripts Apixaban Base (ELIQUIS) 5 Mg Tab, 10 MG PO BID for 2 Days, #6 TAB Eliquis 10 mg twice daily till 05/02 Eliquis 5 mg twice daily starting 05/03 Prov:ANDREW DIAMOND MD 05/01/25 Linezolid (Zyvox) 600 Mg Tab, 600 MG PO BID for 7 Days, #14 TAB Prov:PLACIDO LUGO 8/21/25 Pantoprazole Sodium Sesquihydr (Pantoprazole Sodium) 40 Mg Tab, 40 MG PO DAILY for 30 Days, #30 TAB [facility]/25 Nutritional Supplements (Glucerna Carbsteady) 1 Liq Liq, 240 ML PO TIDWM for 30 Days, #30 LIQ [facility] Apixaban Base (ELIQUIS) 5 Mg Tab, 5 MG PO BID for 30 Days, #60 TAB [facility] 04/28/25 Atorvastatin Calcium (ATORVASTATIN CALCIUM) 20 Mg Tab, 20 MG PO HS for 30 Days, #30 TAB [facility] 04/28/25 Carvedilol (Carvedilol) 12.5 Mg Tab, 12.1 TAB PO BID for 30 Days, #60 TAB [facility] 04/28/25 Tamsulosin Hcl (Tamsulosin Hcl) 0.4 Mg Cap, 0.4 MG PO QPM for 30 Days, #30 MG [facility] 04/28/25 Amlodipine Besylate (Amlodipine Besylate) 5 Mg Tab, 1 TAB PO DAILY for 30 Days, #30 TAB [facility] 04/28/25 Aspirin (Aspirin Adult Low Dose) 81 Mg Tab, 1 TAB PO DAILY for 30 Days, #30 TAB [facility] 04/28/25 Hydrocodone-Acetaminophen (Hydrocodone Bitartrate/AC 5-325 mg) 1 Tab Tab, 1 TAB PO BID PRN, #40 TAB Prov:ADARSH WILLIS MD 03/04/25 Rifampin (Rifampin) 300 Mg Cap, 300 MG PO BID, #90 CAP Prov:ADARSH WILLIS MD 03/04/25 Reported Medications Hydrochlorothiazide (Hydrochlorothiazide) 25 Mg Tab, 50 MG PO DAILY for 14 Days, #14 04/11/25 Glipizide (Glipizide) 5 Mg Tab, 1 TAB PO BID for 14 Days, #28 04/11/25 Furosemide (Furosemide) 40 Mg Tab, 1 TAB PO DAILY 02/24/25 Calcium Carbonate-Cholecalcife (Calcium 500-10 mg-Mcg) 1 Chw Chw, 1 TAB PO BID 02/24/25 Metformin HCl (Metformin Hydrochloride) 500 Mg/5 Ml Gwendolyn, 500 MG PO, ML 06/13/21 Discontinued Reported Medications Atorvastatin Calcium (ATORVASTATIN CALCIUM) 10 Mg Tab, 10 MG PO DAILY, TAB 06/13/21 Discontinued Scripts Apixaban Base (ELIQUIS) 5 Mg Tab, 10 MG PO BID for 6 Days, #24 TAB Eliquis 10 mg twice daily till 05/04 Eliquis 5 mg twice daily starting 05/04 Prov:PLACIDO LUGO [facility] 04/28/25 Metronidazole (Flagyl) 500 Mg Tab, 500 MG PO TID for 42 Days, #126 TAB Prov:MARITZA FARRAR MD 03/04/25 Ciprofloxacin Hcl (Cipro) 500 Mg Tab, 1 TAB PO BID, #90 TAB Prov:ADARSH WILLIS MD 03/04/25 Doxycycline (Monohydrate) (Doxycycline) 100 Mg Cap, 100 MG PO BIDAC, #90 CAP Prov:ADARSH WILLIS MD 03/04/25 Home Meds Home medications reviewed. Current Medications Current Medications Medications (Trade) Dose Ordered Sig/Bandar Route PRN Reason Start Time Stop Time Status Last Admin Sodium Chloride (Saline Lock Ns) 10 ml Q8HR IV 05/04/25 22:00 05/05/25 14:29 Enoxaparin Sodium (Lovenox) 70 mg Q12HR SC 05/04/25 22:00 05/05/25 10:43 Amlodipine Besylate (Norvasc Tablet) 5 mg DAILY PO 05/05/25 10:00 05/05/25 10:44 Atorvastatin Calcium (Lipitor) 20 mg HS PO 05/05/25 22:00 Hydrochlorothiazide (hydroCHLOROthiazide TABLET) 25 mg DAILY PO 05/05/25 10:00 05/05/25 10:43 Ceftriaxone Sodium/Dextrose 50 ml @ 50 mls/hr DAILY@2100 IV 05/04/25 22:30 05/04/25 22:30 Linezolid 300 ml @ 150 mls/hr Q12HR IV 05/04/25 22:00 05/05/25 10:43 Review of Systems Constitutional: Generalized weakness Ears, Nose, & Throat: No symptom reported Eyes: No symptom reported Neurological: No symptoms reported Pulmonary/Respiratory: No symptoms reported Cardiovascular: No symptom reported Gastrointestinal: No symptom reported Genitourinary: No symptom reported Musculoskeletal: Left lower extremity pain Skin: Discolored left foot Psychiatric: No symptom reported Endocrine: No symptom reported Hematologic/Lymphatic: No symptom reported Vital Signs Vital Signs Date Time Temp Pulse Resp B/P (MAP) Pulse Ox O2 Delivery O2 Flow Rate FiO2 05/05/25 13:00 98.4 103 18 113/67 (82) 97 98.4 05/05/25 08:00 Room Air* 0 21 Physical Exam General Appearance: Cooperative. Well-developed. Well-nourished. No acute distress. Pulmonary/Respiratory: Clear, bilateral breaths sounds. Cardiovascular/Chest: Regular rate and rhythm. Peripheral Pulses: 2+ Radial (R). 2+ Radial (L). Abdominal Exam: Normal bowel sounds. Ankle Exam: Trace edema Lower extremities: Trace edema Neuro/Mental Status: A/OX4, coherent. Thoughts/Psych: Normal thought pattern. Appropriate mood and affect. Good judg ment and insight. Appearance: No acute distress. Skin Exam: Left foot discoloration. Necrosis to left great toe and left 4th digit. Necrosis noted to plantar aspect of left foot. Labs/Diagnostic Data Labs Test 05/05/25 08:00 05/04/25 17:44 05/04/25 14:13 05/04/25 12:42 Range/Units White Blood Count 6.4 4.4-10.8 10^3/uL Red Blood Count 2.48 L 4.5-5.90 10^6/uL Hemoglobin 8.0 #L 13.5-17.5 g/dL Hematocrit 23.6 #L 41.0-53.0 % Mean Corpuscular Volume 95.5 80.0-100.0 fL Mean Corpuscular Hemoglobin 32.4 H 28.0-32.0 pg Mean Corpuscular Hemoglobin Concent 33.9 32.0-36.0 g/dL Red Cell Distribution Width 18.8 H 11.8-14.3 % Platelet Count 264 140-450 10^3/uL Mean Platelet Volume 6.5 L 6.9-10.8 fL Neutrophils (%) (Auto) 70.2 37.0-80.0 % Lymphocytes (%) (Auto) 11.9 10.0-50.0 % Monocytes (%) (Auto) 8.9 0.0-12.0 % Eosinophils (%) (Auto) 8.7 H 0.0-7.0 % Basophils (%) (Auto) 0.3 0.0-2.0 % Neutrophils # (Auto) 4.5 1.6-8.6 10 ^3/uL Lymphocytes # (Auto) 0.8 0.4-5.4 10 ^3/uL Monocytes # (Auto) 0.6 0-1.3 10 ^3/uL Eosinophils # (Auto) 0.6 0-0.8 10 ^3/uL Basophils # (Auto) 0 0-0.2 10 ^3/uL Nucleated Red Blood Cells 0.0 % Sodium Level 141 136-145 mmol/L Potassium Level 3.4 L 3.5-5.1 mmol/L Chloride Level 102 98-107 mmol/L Carbon Dioxide Level 30 20-31 mmol/L Anion Gap 9 5-15 Blood Urea Nitrogen 29 #H 9-23 mg/dL Creatinine 1.56 H 0.700-1.30 mg/dL Glomerular Filtration Rate Calc 46 >90 mL/min BUN/Creatinine Ratio 18.6 10.0-20.0 Serum Glucose 129 H 74-106 mg/dL Calcium Level 8.9 8.7-10.4 mg/dL Total Bilirubin 0.4 0.2-1.0 mg/dL Aspartate Amino Transferase (AST) 20 13-40 U/L Alanine Aminotransferase (ALT) 27 7-40 U/L Alkaline Phosphatase 143 H 46-116 U/L Total Protein 7.1 5.7-8.2 g/dL Albumin 3.6 3.2-4.8 g/dL Vitamin B12 Level 719 211-911 pg/mL Vitamin D 25-Hydroxy 30.5 30.0-100 ng/mL Urine Color Light-yellow Yellow Urine Clarity Clear Clear Urine pH 6.0 5.0-9.0 Urine Specific [place] 1.012 1.001-1.035 Urine Protein Negative Negative Urine Ketones Negative Negative Urine Blood Negative Negative /uL Urine Nitrite Negative Negative Urine Bilirubin Negative Negative Urine Urobilinogen Normal Negative mg/dL Urine Leukocyte Esterase 1+ Negative /uL Urine RBC 1 0 - 3 /hpf Urine Microscopic WBC 9 H 0-3 /HPF Urine Squamous Epithelial Cells Few <5 /hpf Urine Bacteria None seen None Seen /hpf Urine Hyaline Casts Few 0 - 2 /lpf Urine Glucose Normal Normal mg/dL Troponin I High Sensitivity 168 *H </=54 ng/L B-Type Natriuretic Peptide 481.02 0-100 pg/mL Assessment Severe peripheral arterial disease Severe triple-vessel coronary artery disease (has declined CABG) Hypertension Dyslipidemia Left popliteal vein DVT Chronic kidney disease Right great toe osteomyelitis status post I&D to the bone Obesity Plan/Recommendation We will continue with the following plan/recommendations (Dr. Ji): Case discussed with .Previous transthoracic echocardiogram from 03/10/2025 reveals an EF of 50-55%. MD reviewed imaging of bilateral lower extremity arterial duplex. Patient has severe peripheral arterial disease, left lower extremities worse in the right. At this time we will recommend for the patient to undergo a peripheral angiogram. Plan discussed with the patient full detail. All risks and benefits discussed with the patient. Patient is agreeable to undergo procedure. We will plan for a peripheral angiogram on 05/06/2025 at soonest availability. Thank you for allowing us to care for this patient. Please call with any questions or concerns. Critical care time spent: 44 minutes This medical document was created using an electronic medical record system with voice recognition software and computerized dictation system. Although this document has been carefully reviewed, there might still be some phonetic and typographical errors. Occasional wrong-word or ``sound-alike substitutions may have occurred due to the inherent limitations of voice recognition software. These areas are purely typographical due to imperfections of the software programs and do not reflect any compromise in the patient's medical care. Please read the chart carefully and recognize, using context, where these substitutions have occurred. Plan discussed with: Patient NYHA Physical activity limitations: NA Date of Service: May 05, 2025 Billing Provider: HALEY CISNEROS Cardiology Common Codes: 81972-OULLWGF INP/OBS CARE (High) Cardiology Consultation Codes: 66742-[id number] CONSULT <45MIN HALEY CISNEROS May 05, 2025 15:43
--- NOTE | 2025-05-05 20:17 | DVHPNRES ---
Progress Note Date Seen: May 05, 2025 Resident Creating Document: TAMI LOPEZ RESIDENT Medical Necessity Reason Pt with a Central, PICC or Fol: No Subjective Review of Systems Benita 74-year-old male with previous history of triple-vessel CAD, testicular cancer, CKD on stage III, type 2 diabetes mellitus with peripheral neuropathy, hyperlipidemia, hypertension, peripheral artery disease, left lower extremity DVT on Eliquis and home hospice care presented to the ER with a history of left leg purple discoloration since last 3 days. The patient was diagnosed with nonocclusive thrombus of the left popliteal vein last week. He denies any chest pain, shortness of breath, abdominal pain or any other complaints today. The patient was admitted at [facility] in February, during the time the patient underwent debridements of the right foot. The patient is not taking Eliquis due to bruising, his home health hospice nurse advised him to stop Eliquis. We restarted him on Eliquis today. Past medical history:triple-vessel CAD, testicular cancer, CKD on stage III, type 2 diabetes mellitus with peripheral neuropathy, hyperlipidemia, hypertension, peripheral artery disease, left lower extremity DVT Past surgical history: Tonsillectomy, debridement of necrotic right toe. Allergies: No known allergy Home medications: Apixaban, linezolid, pantoprazole, atorvastatin, carvedilol, tamsulosin, amlodipine, aspirin, hydrocodone acetaminophen, rifampin Smoking history: None Alcohol: Occasionally Drugs: Denies PCP: Dr. Avendano Code status: Full code 05/05/2025 interval events: The patient was seen and examined at bedside. The patient denies any pain at the necrosed area. Treatment plan was discussed with patient, patient is inclined towards saving the foot from amputation. He denies any chest pain, shortness of breath, abdominal pain, fever, urinary symptoms or any other complaints today. Objective vital signs Vital Sign Date Time Temp Pulse Resp B/P (MAP) Pulse Ox O2 Delivery O2 Flow Rate FiO2 05/05/25 17:00 98.8 102 18 122/73 (89) 96 98.8 05/05/25 08:00 Room Air* 0 21 Total Intake and Output 05/04/25 05/04/25 05/05/25 15:00 23:00 07:00 Intake Total 50 ml 650 ml Output Total 375 ml Balance 50 ml 275 ml medications Current Medications Medications Dose Ordered Sig/Bandar Route Start Time Stop Time Status Last Admin Dose Admin Zirconium Oxide 10 gm TID PO 05/04/25 14:00 05/06/25 06:01 05/05/25 05:08 10 GM Sodium Chloride 10 ml Q8HR IV 05/04/25 22:00 05/05/25 14:29 10 ML Ondansetron HCl 4 mg Q4HP PRN IV 05/04/25 15:00 Acetaminophen 650 mg Q6HP PRN PO 05/04/25 15:00 Enoxaparin Sodium 70 mg Q12HR SC 05/04/25 22:00 05/05/25 10:43 70 MG Amlodipine Besylate 5 mg DAILY PO 05/05/25 10:00 05/05/25 10:44 5 MG Atorvastatin Calcium 20 mg HS PO 05/05/25 22:00 Hydrochlorothiazide 25 mg DAILY PO 05/05/25 10:00 05/05/25 10:43 25 MG Ceftriaxone Sodium/Dextrose 50 ml @ 50 mls/hr DAILY@2100 IV 05/04/25 22:30 05/04/25 22:30 50 MLS/HR Linezolid 300 ml @ 150 mls/hr Q12HR IV 05/04/25 22:00 05/05/25 10:43 150 MLS/HR Examination Pt is lying on bed General Appearance: Alert, Oriented X3, Cooperative, Mild distress HEENT: Atraumatic, Mucous membranes moist/pink Respiratory: Clear to auscultation, Normal air movement, No added sounds Cardiovascular: Regular rate, Normal S1, Normal S2, No murmurs Abdominal/ : Active bowel sounds, Soft, no distention, no tenderness Extremities: Bilateral ecchymosis on the legs, right great toe gangrene, left foot wrapped up in bandage, Normal arteria dorsalis pedis pulses, Skin: No Significant rash, except past surgical scars Neuro: Normal speech, sensorimotor deficits none Psych/Mental Status: Mental status NL, Mood NL laboratory and microbiology Laboratory Tests 05/05/25 08:00 Test 05/05/25 08:00 Range/Units Serum Glucose 129 H 74-106 mg/dL Microbiology Date/Time Source Procedure Growth Status 05/04/25 22:54 Nose MRSA Screen - Final Complete Labs and/or images reviewed: Labs reviewed by me, Image(s) reviewed by me Problem List/Assessment/Plan Problem List/Assessment/Plan #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 #Left focal stenosis in the proximal superficial femoral artery. #Occluded right dorsal pedal artery. #H/o left toe osteomyelitis #left lower extremity DVT: left popliteal vein. #CKD on stage III #type 2 diabetes mellitus with peripheral neuropathy #Hypertensive heart disease due to diastolic dysfunction #LVH #Anemia, normocytic, hypochromic, possible to CKD #Hyperkalemia #NSTEMI type 2, due to demand ischemia #Transaminitis #H/o Severe triple-vessel coronary artery disease (has declined CABG) #H/o testicular cancer #H/o hyperlipidemia Cardiac diet, NPO after midnight Hyperkalemia treatment given: lokelma, albuterol, bicarbante and calcium IV fluids: 60 cc/h Ceftriaxone and linezolid Zofran IV Tylenol Patient was on apixaban at home but will be transitioned to enoxaparin 70 mg BID Amlodipine Atorvastatin HCTZ foot xray: There is no evidence of acute fracture or dislocation.The visualized joint space is well maintained.The alignment is anatomical.There is no radiopaque foreign body. Bilateral lower extremity duplex artery study:Severe peripheral arterial disease, left lower extremity worse than right. Severely diminished flow in the left lower extremity beyond a focal stenosis in the proximal superficial femoral artery. Occluded right dorsal pedal artery. Podiatry was consulted, and he advised to consult vascular surgeon. Images reviewed: xray, leg US venous and the arterial hba1c 6,3 Vitamin B12 and vitamin-D reviewed, wnl Previous transthoracic echocardiogram from 03/10/2025 reveals an EF of 50-55%. Imaging of bilateral lower extremity arterial duplex. Patient has severe peripheral arterial disease, left lower extremities worse in the right. Consider peripheral angiogram according to cardiology consultation. Scheduled for stent placement in the peripheral artery by Dr Ji. Patient came from [facility] GI prophylaxis: Not indicated DVT prophylaxis: Lovenox Diet: Cardiac Goals of care discussed with the patient for more than 27 minutes: Full code status Case discussed with Dr. York , patient and RN Plan discussed with: Patient, Other (RN) My Orders My Orders Orders - TAMI LOPEZ Procedure Category Date Status Time Amlodipine Tablet PHA 05/05/25 In Process (Norvasc Tablet) 10:00 Hydrochlorothiazide PHA 05/05/25 In Process Tablet (Hydrochlorot 10:00 Linezolid 600mg/300ml PHA 05/04/25 In Process (Zyvox) 22:00 Atorvastatin (Lipitor) PHA 05/05/25 In Process 22:00 Ceftriaxone 2gm/50ml PHA 05/04/25 In Process D5w (Rocephin 2gm/5 22:30 L Foot 3 View Xray XY 05/05/25 Resulted 06:32 * Wound Consult CONS 05/05/25 Transmitted Date of Service: Jun 05, 2025 Billing Provider: LAUREN YORK MD Common Visit Codes: [id number] INP/OBS CARE(HIGH) TAMI LOPEZ RESIDENT May 05, 2025 20:16 TAMI MILLER RESIDENT May 06, 2025 19:29 DANA MERCADO RESIDENT May 06, 2025 21:55 LAUREN YORK MD May 13, 2025 21:16
[2025-05-05] MEDS: ATORVASTATIN 20 MG TAB PO SCH (22:08)
[2025-05-06] VITALS (12 sets, daily range): BP systolic 118–153; BP diastolic 58–70; PULSE 81–104; RESP 10–20; TEMP 98.3–99.2; O2SAT 92–98
[2025-05-06 07:52] LABS: Hemoglobin 8.1 g/dL (13.5-17.5); Nucleated Red Blood Cells % 0.0 %
[2025-05-06 07:55] LABS: Hematocrit 23.2 % (41.0-53.0); Mean Corpuscular Hemoglobin 33.1 pg (28.0-32.0); Mean Corpuscular Volume 94.8 fL (80.0-100.0)
[2025-05-06 08:21] LABS: Alanine Aminotransferase 23 U/L (7-40); Albumin 3.4 g/dL (3.2-4.8); Anion Gap 10 (5-15); BUN/Creatinine Ratio 18.9 (10.0-20.0); Calcium 8.9 mg/dL (8.7-10.4); Carbon Dioxide 30 mmol/L (20-31); INR 1.12 (0.9-1.15); Partial Thromboplastin Time 35.7 SEC (24.5-34.5); Potassium 3.5 mmol/L (3.5-5.1); Prothrombin Time 11.7 sec (9.3-11.8); Sodium 138 mmol/L (136-145); Total Protein 7.2 g/dL (5.7-8.2)
[2025-05-06 08:22] LABS: Bilirubin, Total 0.4 mg/dL (0.2-1.0)
[2025-05-06 08:30] LABS: Alkaline Phosphatase 132 U/L (46-116); Blood Urea Nitrogen 28 mg/dL (9-23); Chloride 98 mmol/L (98-107); Glucose 136 mg/dL (74-106)
[2025-05-06] MEDS: IODIXANOL 320MG/ML 100ML BTL IV ONE ×3 (14:43→16:22)
[2025-05-06] MEDS: fentaNYL CITRATE 100 MCG/2 ML VL ONE (14:46)
[2025-05-06] MEDS: ANGIOMAX 250 MG VIAL IV ONE ×2 (14:46→16:34)
[2025-05-06] MEDS: SODIUM CHL 0.9% 50 ML ONE ×2 (14:47→16:34)
[2025-05-06] MEDS: LIDOCAINE 2%HCL (LOCAL ANESTH.) INJ 20ML MDV ONE (14:47)
[2025-05-06] MEDS: MIDAZOLAM HCL 2MG/2ML 2ml VIAL (1mg/ml) ONE (14:47)
[2025-05-06] MEDS: CLOPIDOGREL BISULFATE 75 MG TAB ONE (17:29)
--- NOTE | 2025-05-06 19:37 | DVHOP2 ---
Operative Report - 2 Report Details Date: 05/06/25 Preop Diagnosis: Severe peripheral vascular disease limb-threatening ischemia Postop Diagnosis: Successful DANCE THERAPIST of superficial femoral artery and common femoral artery. Successful aperture of chronic total occlusion Surgeon: Kalie Ji MD Anesthesiologist: Conscious sedation Anesthesia: Mac, Local Consent: The patient was informed of the risks and benefits of the procedure. These include but are not limited to complications of anesthesia, postoperative infection, incomplete relief of symptoms, recurrence of symptoms, damage to blood vessels, nerves and tendons, deep venous thrombosis, pulmonary embolism and possible need for repeat surgery in the future. Complications: No complications Findings: Severe occlusion/severe peripheral vascular disease. Left superficial femoral artery occlusion severe stenosis of left profunda. Severe stenosis of mid superficial femoral artery. Severe stenosis of right distal SFA and occlusion of right distal SFA. Indications for Surgery: Limb-threatening ischemia Name of Procedure Performed Angiographic evaluation of the lower extremities with DANCE THERAPIST and stenting of left superficial femoral artery. Digital subtraction angiography of bilateral lower extremities to the level of the feet. Procedure Details Procedure Details: Prior local anesthesia with 2% lidocaine to the right femoral area and full informed consent obtained patient was prepped and draped in usual fashion followed by placement of a six Urdu sheath into the right femoral artery. An angiographic evaluation was then performed of the right femoral artery to the level of the knee. We then placed a rim catheter into the right femoral sheath in into the right iliac crossing over the horn into the left iliac proximally and performing an angiographic evaluation to the level of the common femoral ar devan and acetabulum. We then performed digital subtraction angiography of the proximal superficial femoral artery and profunda as well as of the mid left superficial femoral artery and distal superficial femoral artery and tibioperoneal trunk. We then exchanged the six Urdu sheath for an eight Urdu destination [id number] cm in length. We used an advantage wire to cross over the horn into the left iliac contralaterally and place the sheath over the femoral artery. We then proceeded to perform angioplasty as will be delineated. Angiographic evaluation of the right femoral artery reveals a patent common femoral to the level of the mid SFA. There was reconstitution of flow into the distal SFA and popliteal via the profunda. Bilateral iliacs are within normal limits. Left internal iliac is rather small and appears to be occluded proximally. The left external iliac and common femoral artery are patent. The superficial femoral artery is occluded at the level of the profunda. The profunda itself has a 99% stenosis and faintly visualized supplying minimal collateralization to the mid left superficial femoral artery. We proceeded to place an 038 wire within a crossover catheter. We were able to place the catheter into the profunda and we placed an 014 wire has a point of reference. We then removed the crossover catheter and placed an 035 advantage wire within the crossover catheter and found the true lumen within the common femoral and superficial femoral arteries. We negotiated the catheter to the le laci of the proximal to mid superficial femoral artery we will be found the true lumen and placed the catheter deeper into the superficial femoral artery. We then removed the wire and performed angiographic evaluations revealing an occlusion at the mid level of the superficial femoral artery. We found the true lumen and placed the catheter into the distal segment of the superficial femoral artery and finally placing the advantage wire into the tibioperoneal trunk. Angiographic evaluation at this level revealed patency of the posterior tibial artery. There was little flow into the anterior tibial and into the peroneal artery which ended at mid calf. The posterior tibial artery feeds the plantar arch in the majority of the foot. We then placed in 014 sport wire into the crossover catheter and removed the crossover catheter replacing it with a4 x 40 mm chocolate atherotomy balloon. We were able to place the balloon distally into the SFA and angioplasty of the areas of stenosis in the distal SFA and mid SFA as well as proximal SFA. There was notably improved flow and we verified patency into the true lumen. We then placed a six by 49 over into the mid SFA. The distal SFA did not require stenting. We then placed a 9 mm x 40 mm Inova into the proximal to mid SFA and overlapped it with a 2nd 9 x 40 mm Innova stent we post dilated with an8 mm balloon. The mid SFA was post dilated with a 6 x 40 mm balloon. There was excellent antegrade flow without thrombus formation and or dissection. There was a residual stenosis in the unstented and/or nontreated profunda. Flow was verified to the level of the ankle and plantar arch. The right femoral artery was sealed with a Perclose device. Patient tolerated procedure well there were no complications. A staged procedur e will be performed of the right superficial femoral artery in the near future. Condition Stable Disposition Still a Patient Date of Service: May 06, 2025 Billing Provider: KALIE JI Sr., MD Cardiology Common Codes: [id number] INP/OBS CARE (High) Peripheral Procedures Codes: [id number] W/TRANS ANGPLASTY, 09091- ANGIOPLASTY W/IN SAME VESSEL, 16288-CIRRO PLACMNT W/ANGIOPLASTY, 68918- ANGIOGRAPHY RAD SUP/INTERP (Atherotomy of the left femoral and superficial femoral arteries.) KALIE JI Sr., MD May 06, 2025 19:37
--- NOTE | 2025-05-06 20:01 | DVHPNRES ---
Progress Note Date Seen: May 06, 2025 Resident Creating Document: TAMI LOPEZ RESIDENT Medical Necessity Reason Pt with a Central, PICC or Fol: No Subjective Review of Systems Benita Joy 74-year-old male with previous history of triple-vessel CAD, testicular cancer, CKD on stage III, type 2 diabetes mellitus with peripheral neuropathy, hyperlipidemia, hypertension, peripheral artery disease, left lower extremity DVT on Eliquis and home hospice care presented to the ER with a history of left leg purple discoloration since last 3 days. The patient was diagnosed with nonocclusive thrombus of the left popliteal vein last week. He denies any chest pain, shortness of breath, abdominal pain or any other complaints today. The patient was admitted at [facility] in February, during the time the patient underwent debridements of the right foot. The patient is not taking Eliquis due to bruising, his home health hospice nurse advised him to stop Eliquis. We restarted him on Eliquis today. Past medical history:triple-vessel CAD, testicular cancer, CKD on stage III, type 2 diabetes mellitus with peripheral neuropathy, hyperlipidemia, hypertension, peripheral artery disease, left lower extremity DVT Past surgical history: Tonsillectomy, debridement of necrotic right toe. Allergies: No known allergy Home medications: Apixaban, linezolid, pantoprazole, atorvastatin, carvedilol, tamsulosin, amlodipine, aspirin, hydrocodone acetaminophen, rifampin Smoking history: None Alcohol: Occasionally Drugs: Denies PCP: Dr. Avendano Code status: Full code 05/06/2025 interval events: The patient was seen and examined at bedside. He denies any chest pain, shortness of breath, fever, abdominal pain or any other complaints today. Objective vital signs Vital Sign Date Time Temp Pulse Resp B/P (MAP) Pulse Ox O2 Delivery O2 Flow Rate FiO2 05/06/25 18:20 92 14 133/58 (83) 95 05/06/25 13:00 99.2 99.2 05/06/25 08:00 Room Air* 0 21 Total Intake and Output 05/05/25 05/05/25 05/06/25 15:00 23:00 07:00 Intake Total 300 ml 523 ml 300 ml Output Total 5 ml 450 ml Balance 300 ml 518 ml -150 ml medications Current Medications Medications Dose Ordered Sig/Bandar Route Start Time Stop Time Status Last Admin Dose Admin Sodium Chloride 10 ml Q8HR IV 05/04/25 22:00 05/06/25 13:24 10 ML Ondansetron HCl 4 mg Q4HP PRN IV 05/04/25 15:00 Acetaminophen 650 mg Q6HP PRN PO 05/04/25 15:00 Amlodipine Besylate 5 mg DAILY PO 05/05/25 10:00 05/05/25 10:44 5 MG Atorvastatin Calcium 20 mg HS PO 05/05/25 22:00 05/05/25 22:08 20 MG Hydrochlorothiazide 25 mg DAILY PO 05/05/25 10:00 05/05/25 10:43 25 MG Ceftriaxone Sodium/Dextrose 50 ml @ 50 mls/hr DAILY@2100 IV 05/04/25 22:30 05/05/25 21:00 50 MLS/HR Linezolid 300 ml @ 150 mls/hr Q12HR IV 05/04/25 22:00 05/06/25 09:33 150 MLS/HR Clopidogrel Bisulfate 75 mg DAILY PO 05/07/25 10:00 Aspirin 81 mg DAILY PO 05/07/25 10:00 Examination Pt is lying on bed General Appearance: Alert, Oriented X3, Cooperative, Mild distress HEENT: Atraumatic, Mucous membranes moist/pink Respiratory: Clear to auscultation, Normal air movement, No added sounds Cardiovascular: Regular rate, Normal S1, Normal S2, No murmurs Abdominal/ : Active bowel sounds, Soft, no distention, no tenderness Extremities: No edema, Normal pulses, No tenderness/swelling, left great toe gangrene, surrounding erythema. 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 #Left focal stenosis in the proximal superficial femoral artery. #Occluded right dorsal pedal artery. #H/o left toe osteomyelitis #left lower extremity DVT: left popliteal vein. #CKD on stage III #type 2 diabetes mellitus with peripheral neuropathy #Hypertensive heart disease due to diastolic dysfunction #LVH #Anemia, normocytic, hypochromic, possible to CKD #Hyperkalemia #NSTEMI type 2, due to demand ischemia #Transaminitis #H/o Severe triple-vessel coronary artery disease (has declined CABG) #H/o testicular cancer #H/o hyperlipidemia Cardiac diet Hyperkalemia treatment given: lokelma, albuterol, bicarbante and calcium IV fluids: 60 cc/h Ceftriaxone and linezolid Zofran IV Tylenol Patient was on apixaban at home but will be transitioned to enoxaparin 70 mg BID Amlodipine Atorvastatin HCTZ foot xray: There is no evidence of acute fracture or dislocation.The visualized joint space is well maintained.The alignment is anatomical.There is no radiopaque foreign body. Bilateral lower extremity duplex artery study:Severe peripheral arterial disease, left lower extremity worse than right. Severely diminished flow in the left lower extremity beyond a focal stenosis in the proximal superficial femoral artery. Occluded right dorsal pedal artery. Podiatry consulted, advised to consult vascular surgeon. Vascular surgeon Dr. Ji performed: Angiographic evaluation of the lower extremities with SENIOR GOVERNMENT PROGRAM ANALYST and stenting of left superficial femoral artery. Digital subtraction angiography of bilateral lower extremities to the level of the feet. Images reviewed: xray, leg US venous and the arterial hba1c 6.3 Vitamin B12 and vitamin-D reviewed, WNL Previous transthoracic echocardiogram from 03/10/2025 reveals an EF of 50-55%. Imaging of bilateral lower extremity arterial duplex. Patient has severe peripheral arterial disease, left lower extremities worse in the right. Consider peripheral angiogram according to cardiology consultation. [facility] came from [facility] GI prophylaxis: Not indicated DVT prophylaxis: Lovenox Diet: Cardiac Goals of care discussed with the patient for more than 27 minutes: Full code status Case discussed with Dr. York , patient and RN Plan discussed with: Patient, Other My Orders My Orders Orders - TAMI LOPEZ RESIDENT Procedure Category Date Status Time Basic Metabolic Panel LAB 05/07/25 Verified 04:00 Complete Blood Count LAB 05/07/25 Verified 04:00 Sodium Chl 0.9% (Ns) PHA 05/06/25 In Process 14:47 Dietary Evaluation Review Comments: 1) Advance to [facility] [place] 75gm + cardiac diet 2) Armen 1 pk BID, MVI w/ minerals 1 tab daily, VitC 500mg BID, Zinc sulfate 220mg BID x 10 days 3) Monitor NPO status, lab values, weight trend, and I/O Expected Outcomes/Goals: To meet >75% estimated needs Wound to improve Fu 2-3 days Date of Service: May 06, 2025 Billing Provider: LAUREN YORK MD Common Visit Codes: [id number] INP/OBS CARE(HIGH) TAMI LOPEZ RESIDENT May 06, 2025 20:01 DANA MERCADO RESIDENT May 09, 2025 06:26 LAUREN YORK MD May 13, 2025 21:28
[2025-05-06] MEDS: PANTOPRAZOLE 40 MG TAB PO ONE (22:00)
[2025-05-07] VITALS (7 sets, daily range): BP systolic 113–129; BP diastolic 66–80; PULSE 87–101; RESP 16–17; TEMP 97.3–98.1; O2SAT 96–99
[2025-05-07 07:49] LABS: Hemoglobin 8.0 g/dL (13.5-17.5)
[2025-05-07 07:52] LABS: Hematocrit 23.0 % (41.0-53.0); Mean Corpuscular Hemoglobin 32.9 pg (28.0-32.0); Mean Corpuscular Volume 94.0 fL (80.0-100.0); Nucleated Red Blood Cells % 0.1 %
[2025-05-07 07:56] LABS: Anion Gap 11 (5-15); Carbon Dioxide 28 mmol/L (20-31)
[2025-05-07 07:57] LABS: Calcium 8.8 mg/dL (8.7-10.4)
[2025-05-07 07:59] LABS: Chloride 95 mmol/L (98-107); Potassium 3.4 mmol/L (3.5-5.1); Sodium 134 mmol/L (136-145)
[2025-05-07 08:02] LABS: BUN/Creatinine Ratio 17.0 (10.0-20.0)
[2025-05-07 08:07] LABS: Blood Urea Nitrogen 25 mg/dL (9-23); Glucose 133 mg/dL (74-106)
[2025-05-07] MEDS: CLOPIDOGREL BISULFATE 75 MG TAB PO SCH (09:31)
--- NOTE | 2025-05-07 10:16 | DVHPNRES ---
Progress Note Date Seen: May 07, 2025 Resident Creating Document: TAMI LOPEZ RESIDENT Medical Necessity Reason Pt with a Central, PICC or Fol: No Subjective Review of Systems Benita Joy 74-year-old male with previous history of triple-vessel CAD, testicular cancer, CKD on stage III, type 2 diabetes mellitus with peripheral neuropathy, hyperlipidemia, hypertension, peripheral artery disease, left lower extremity DVT on Eliquis and home hospice care presented to the ER with a history of left leg purple discoloration since last 3 days. The patient was diagnosed with nonocclusive thrombus of the left popliteal vein last week. He denies any chest pain, shortness of breath, abdominal pain or any other complaints today. The patient was admitted at [facility] in February, during the time the patient underwent debridements of the right foot. The patient is not taking Eliquis due to bruising, his home health hospice nurse advised him to stop Eliquis. We restarted him on Eliquis today. Past medical history:triple-vessel CAD, testicular cancer, CKD on stage III, type 2 diabetes mellitus with peripheral neuropathy, hyperlipidemia, hypertension, peripheral artery disease, left lower extremity DVT Past surgical history: Tonsillectomy, debridement of necrotic right toe. Allergies: No known allergy Home medications: Apixaban, linezolid, pantoprazole, atorvastatin, carvedilol, tamsulosin, amlodipine, aspirin, hydrocodone acetaminophen, rifampin Smoking history: None Alcohol: Occasionally Drugs: Denies PCP: Dr. Avendano Code status: Full code The patient was seen and examined at bedside. Overnight events reviewed. He denies any chest pain, shortness of breath, fever, abdominal pain or any other complaints. Objective vital signs Vital Sign Date Time Temp Pulse Resp B/P (MAP) Pulse Ox O2 Delivery O2 Flow Rate FiO2 05/07/25 09:32 114/68 05/07/25 09:22 97.4 94 16 99 97.4 05/07/25 08:00 Room Air* 0 21 Total Intake and Output 05/06/25 05/06/25 05/07/25 15:00 23:00 07:00 Intake Total 300 ml 240 ml 420 ml Output Total 850 ml 100 ml Balance 300 ml -610 ml 320 ml medications Current Medications Medications Dose Ordered Sig/Bandar Route Start Time Stop Time Status Last Admin Dose Admin Sodium Chloride 10 ml Q8HR IV 05/04/25 22:00 05/07/25 06:01 10 ML Ondansetron HCl 4 mg Q4HP PRN IV 05/04/25 15:00 Acetaminophen 650 mg Q6HP PRN PO 05/04/25 15:00 Amlodipine Besylate 5 mg DAILY PO 05/05/25 10:00 05/07/25 09:32 5 MG Atorvastatin Calcium 20 mg HS PO 05/05/25 22:00 05/06/25 22:11 20 MG Hydrochlorothiazide 25 mg DAILY PO 05/05/25 10:00 05/07/25 09:32 25 MG Ceftriaxone Sodium/Dextrose 50 ml @ 50 mls/hr DAILY@2100 IV 05/04/25 22:30 05/06/25 20:29 50 MLS/HR Linezolid 300 ml @ 150 mls/hr Q12HR IV 05/04/25 22:00 05/07/25 09:31 150 MLS/HR Clopidogrel Bisulfate 75 mg DAILY PO 05/07/25 10:00 05/07/25 09:31 75 MG Aspirin 81 mg DAILY PO 05/07/25 10:00 05/07/25 09:31 81 MG Pantoprazole Sodium 40 mg DAILY@0600 PO 05/08/25 06:00 Examination General Appearance: Alert, Oriented X3, Cooperative, Mild distress HEENT: Atraumatic, Mucous membranes moist/pink Respiratory: Clear to auscultation, Normal air movement, No added sounds Cardiovascular: Regular rate, Normal S1, Normal S2, No murmurs Abdominal/ : Active bowel sounds, Soft, no distention, no tenderness Extremities: No edema, Normal pulses, No tenderness/swelling, left great toe gangrene, surrounding erythema. Skin: No Significant rash, except past surgical scars Neuro: Normal speech, sensorimotor deficits none Psych/Mental Status: Mental status NL, Mood NL Nurse was there as doggy daycare activities director during examination laboratory and microbiology Laboratory Tests 05/07/25 06:53 Test 05/07/25 06:53 Range/Units Serum Glucose 133 H 74-106 mg/dL Microbiology Date/Time Source Procedure Growth Status 05/04/25 22:54 Nose MRSA Screen - Final Complete Labs and/or images reviewed: Labs reviewed by me, Image(s) reviewed by me Problem List/Assessment/Plan Problem List/Assessment/Plan # Left Toe Dry Gangrene due to Severe PAD #Severe Peripheral Arterial Disease (PAD) #History of Left Toe Osteomyelitis Likely secondary to critical limb ischemia. Podiatry and vascular surgery consulted. Left SFA stenting completed on 05/06/2025; right lower extremity angiogram planned for 09/16/2024 Keep patient NPO from midnight Continue aspirin, Plavix, and statin therapy. Continue antibiotics: ceftriaxone and linezolid. # Left Lower Extremity DVT (Popliteal Vein) Transition from apixaban to enoxaparin 70 mg BID. Monitor for bleeding and renal function due to CKD. # Chronic Kidney Disease Stage III Monitor renal function and electrolytes. Avoid nephrotoxic agents. Adjust medications as needed for renal dosing. # Type 2 Diabetes Mellitus with Peripheral Neuropathy HbA1c 6.7 diet controlled. Monitor for foot ulcers and neuropathic complications. CMP blood glucose ranges 130-140 #Hypertensive Heart Disease with Diastolic Dysfunction and LVH Continue antihypertensives: amlodipine, HCTZ. Monitor BP and symptoms of heart failure. Cardiac diet. #Anemia of chronic disease Likely secondary to CKD. Monitor hemoglobin and iron studies. # Hyperkalemia Treated with Lokelma, albuterol, bicarbonate, and calcium. Monitor potassium levels. #NSTEMI Type 2 (Demand Ischemia) Continue medical management. # Transaminitis Monitor liver enzymes. Review medications for hepatotoxicity. # History of Severe Triple-Vessel CAD (Declined CABG) Continue medical management. Aspirin, Plavix, statin. # History of Testicular Cancer #Hyperlipidemia Continue atorvastatin. Monitor lipid panel. # gait instability: Patient benefitted with physical therapy Case discussed with Dr. York. Full code status. Plan discussed with: Patient, Other My Orders My Orders Orders - TAMI LOPEZ Procedure Category Date Status Time Sodium Chl 0.9% (Ns) PHA 05/06/25 In Process 14:47 Dietary Evaluation Review Comments: 1) Advance to [facility] 75gm + cardiac diet 2) Armen 1 pk BID, MVI w/ minerals 1 tab daily, VitC 500mg BID, Zinc sulfate 220mg BID x 10 days 3) Monitor NPO status, lab values, weight trend, and I/O Expected Outcomes/Goals: To meet >75% estimated needs Wound to improve Fu 2-3 days Date of Service: May 07, 2025 Billing Provider: LAUREN YORK MD Common Visit Codes: [id number] INP/OBS CARE(HIGH) TAMI LOPEZ May 07, 2025 10:16 LAUREN YORK MD May 13, 2025 22:14
[2025-05-07] MEDS: POTASSIUM EFFERVESENT TAB 25 MEQ PO ONE (13:05)
--- NOTE | 2025-05-07 15:34 | DVHPN2 ---
Consult Progress Note Subjective Patient reports: Feels better Objective vital signs Vital Sign Date Time Temp Pulse Resp B/P (MAP) Pulse Ox O2 Delivery O2 Flow Rate FiO2 05/07/25 12:30 97.8 91 16 125/72 (89) 98 97.8 05/07/25 08:00 Room Air* 0 21 Total Intake and Output 05/06/25 05/06/25 05/07/25 15:00 23:00 07:00 Intake Total 300 ml 240 ml 420 ml Output Total 850 ml 100 ml Balance 300 ml -610 ml 320 ml medications Current Medications Medications Dose Ordered Sig/Bandar Route Start Time Stop Time Status Last Admin Dose Admin Sodium Chloride 10 ml Q8HR IV 05/04/25 22:00 05/07/25 13:05 10 ML Ondansetron HCl 4 mg Q4HP PRN IV 05/04/25 15:00 Acetaminophen 650 mg Q6HP PRN PO 05/04/25 15:00 Amlodipine Besylate 5 mg DAILY PO 05/05/25 10:00 05/07/25 09:32 5 MG Atorvastatin Calcium 20 mg HS PO 05/05/25 22:00 05/06/25 22:11 20 MG Hydrochlorothiazide 25 mg DAILY PO 05/05/25 10:00 05/07/25 09:32 25 MG Ceftriaxone Sodium/Dextrose 50 ml @ 50 mls/hr DAILY@2100 IV 05/04/25 22:30 05/06/25 20:29 50 MLS/HR Linezolid 300 ml @ 150 mls/hr Q12HR IV 05/04/25 22:00 05/07/25 09:31 150 MLS/HR Clopidogrel Bisulfate 75 mg DAILY PO 05/07/25 10:00 05/07/25 09:31 75 MG Aspirin 81 mg DAILY PO 05/07/25 10:00 05/07/25 09:31 81 MG Pantoprazole Sodium 40 mg DAILY@0600 PO 05/08/25 06:00 laboratory and microbiology Laboratory Tests 05/07/25 06:53 Test 05/07/25 06:53 Range/Units Serum Glucose 133 H 74-106 mg/dL Problem List/Assessment/Plan Problem List/Assessment/Plan Severe peripheral arterial disease Left toe dry gangrene Severe triple-vessel coronary artery disease (has declined CABG) Elevated troponin Hypertension Dyslipidemia Left popliteal vein DVT Chronic kidney disease Right great toe osteomyelitis status post I&D to the bone Obesity Plan/Recommendation We will continue with the following plan/recommendations (Dr. Ji): Case discussed with .Previous transthoracic echocardiogram from 03/10/2025 reveals an EF of 50-55%. MD reviewed imaging of bilateral lower extremity arterial duplex. Patient has severe peripheral arterial disease, left lower extremities worse in the right. S/p left lower extremity PTCA of SFA. Tolerated well. Continue monitoring. Plan for right lower extremity angiogram with possible PTCA in the near future. Continue aspirin , Plavix, and statin. Patient with known severe three-vessel disease, continue medical management as patient was deemed not a candidate for invasive procedure. Thank you for allowing us to care for this patient. Please call with any questions or concerns. Critical care time spent: 44 minutes Plan discussed with: Patient Dietary Evaluation Review Comments: 1) [facility] to [facility] 75[facility] + cardiac diet 2) Armen 1 pk BID, MVI w/ minerals 1 tab daily, VitC 500mg BID, Zinc sulfate 220mg BID x 10 days 3) Monitor NPO status, lab values, weight trend, and I/O Expected Outcomes/Goals: To meet >75% estimated needs Wound to improve Fu 2-3 days Date of Service: May 07, 2025 Billing Provider: BREE CORCORAN Common Visit Codes: [id number] INP/OBS CARE(HIGH), [id number] CARE 30-74 MIN BREE CORCORAN May 07, 2025 15:34
--- NOTE | 2025-05-07 19:38 | DVHPNRES ---
Progress Note Date Seen: May 07, 2025 Resident Creating Document: TAMI LOPEZ RESIDENT Medical Necessity Reason Pt with a Central, PICC or Fol: No Objective vital signs Vital Sign Date Time Temp Pulse Resp B/P (MAP) Pulse Ox O2 Delivery O2 Flow Rate FiO2 05/07/25 16:30 98.0 96 16 119/80 (93) 98 98.0 05/07/25 08:00 Room Air* 0 21 Total Intake and Output 05/06/25 05/06/25 05/07/25 15:00 23:00 07:00 Intake Total 300 ml 240 ml 420 ml Output Total 850 ml 100 ml Balance 300 ml -610 ml 320 ml medications Current Medications Medications Dose Ordered Sig/Bandar Route Start Time Stop Time Status Last Admin Dose Admin Sodium Chloride 10 ml Q8HR IV 05/04/25 22:00 05/07/25 13:05 10 ML Ondansetron HCl 4 mg Q4HP PRN IV 05/04/25 15:00 Acetaminophen 650 mg Q6HP PRN PO 05/04/25 15:00 Amlodipine Besylate 5 mg DAILY PO 05/05/25 10:00 05/07/25 09:32 5 MG Atorvastatin Calcium 20 mg HS PO 05/05/25 22:00 05/06/25 22:11 20 MG Hydrochlorothiazide 25 mg DAILY PO 05/05/25 10:00 05/07/25 09:32 25 MG Ceftriaxone Sodium/Dextrose 50 ml @ 50 mls/hr DAILY@2100 IV 05/04/25 22:30 05/06/25 20:29 50 MLS/HR Linezolid 300 ml @ 150 mls/hr Q12HR IV 05/04/25 22:00 05/07/25 09:31 150 MLS/HR Clopidogrel Bisulfate 75 mg DAILY PO 05/07/25 10:00 05/07/25 09:31 75 MG Aspirin 81 mg DAILY PO 05/07/25 10:00 05/07/25 09:31 81 MG Pantoprazole Sodium 40 mg DAILY@0600 PO 05/08/25 06:00 laboratory and microbiology Laboratory Tests 05/07/25 06:53 Test 05/07/25 06:53 Range/Units Serum Glucose 133 H 74-106 mg/dL Microbiology Date/Time Source Procedure Growth Status 05/06/25 18:49 Blood Blood Culture - Preliminary NO GROWTH AFTER 24 HOURS OF INCUBATION. Resulted 05/04/25 22:54 Nose MRSA Screen - Final Complete Problem List/Assessment/Plan Problem List/Assessment/Plan Dr. Ji Case discussed with .Previous transthoracic echocardiogram from 03/10/2025 reveals an EF of 50-55%. reviewed imaging of bilateral lower extremity arterial duplex. Patient has severe peripheral arterial disease, left lower extremities worse in the right. S/p left lower extremity PTCA of SFA. Tolerated well. Continue monitoring. Plan for right lower extremity angiogram with possible PTCA in the near future. Continue aspirin , Plavix, and statin. Patient with known severe three-vessel disease, continue medical management as patient was deemed not a candidate for invasive procedure. Thank you for allowing us to care for this patient. Please call with any questions or concerns. Critical care time spent: 44 minutes Dietary Evaluation Review Comments: 1) [facility] to [facility] + cardiac diet 2) Armen 1 pk BID, MVI w/ minerals 1 tab daily, VitC 500mg BID, Zinc sulfate 220mg BID x 10 days 3) Monitor NPO status, lab values, weight trend, and I/O Expected Outcomes/Goals: To meet >75% estimated needs Wound to improve Fu 2-3 days TAMI LOPEZ RESIDENT May 07, 2025 19:38
[2025-05-08 01:00] VITALS: BP 122/68; PULSE 94; RESP 18; TEMP 97.9; O2SAT 96
[2025-05-08 05:00] VITALS: BP 133/71; PULSE 92; RESP 18; TEMP 98.6; O2SAT 98
[2025-05-08] MEDS: PANTOPRAZOLE 40 MG TAB PO SCH (05:32)
[2025-05-08] MEDS: ENOXAPARIN SOD 100 MG/1 ML SYRINGE SC ONE (06:20)
[2025-05-08 07:27] LABS: Hemoglobin 7.8 g/dL (13.5-17.5); Mean Corpuscular Hemoglobin 32.8 pg (28.0-32.0); Nucleated Red Blood Cells % 0.1 %
[2025-05-08 07:31] LABS: Hematocrit 22.2 % (41.0-53.0); Mean Corpuscular Volume 93.3 fL (80.0-100.0)
[2025-05-08 07:37] LABS: Anion Gap 9 (5-15); Carbon Dioxide 30 mmol/L (20-31); Potassium 3.9 mmol/L (3.5-5.1)
[2025-05-08 07:39] LABS: Calcium 8.7 mg/dL (8.7-10.4)
[2025-05-08 07:44] LABS: BUN/Creatinine Ratio 14.4 (10.0-20.0)
[2025-05-08 07:49] LABS: Chloride 93 mmol/L (98-107); Sodium 132 mmol/L (136-145)
[2025-05-08 07:50] LABS: Blood Urea Nitrogen 25 mg/dL (9-23); Glucose 137 mg/dL (74-106)
[2025-05-08 09:00] VITALS: BP 106/66; PULSE 60; RESP 20; TEMP 97.8; O2SAT 97
--- NOTE | 2025-05-08 11:04 | DVHPNRES ---
Progress Note Date Seen: May 08, 2025 Resident Creating Document: ANGELA ANGEL RESIDENT Medical Necessity Reason Pt with a Central, PICC or Fol: No Subjective Review of Systems Benita Joy 74-year-old male with previous history of triple-vessel CAD, testicular cancer, CKD on stage III, type 2 diabetes mellitus with peripheral neuropathy, hyperlipidemia, hypertension, peripheral artery disease, left lower extremity DVT on Eliquis and home hospice care presented to the ER with a history of left leg purple discoloration since last 3 days. The patient was diagnosed with nonocclusive thrombus of the left popliteal vein last week. He denies any chest pain, shortness of breath, abdominal pain or any other complaints today. The patient was admitted at [facility] in February, during the time the patient underwent debridements of the right foot. The patient is not taking Eliquis due to bruising, his home health hospice nurse advised him to stop Eliquis. We restarted him on Eliquis today. Past medical history:triple-vessel CAD, testicular cancer, CKD on stage III, type 2 diabetes mellitus with peripheral neuropathy, hyperlipidemia, hypertension, peripheral artery disease, left lower extremity DVT Past surgical history: Tonsillectomy, debridement of necrotic right toe. Allergies: No known allergy Home medications: Apixaban, linezolid, pantoprazole, atorvastatin, carvedilol, tamsulosin, amlodipine, aspirin, hydrocodone acetaminophen, rifampin Smoking history: None Alcohol: Occasionally Drugs: Denies PCP: Dr. Avendano Code status: Full code The patient was seen and examined at bedside. Patient concern about his left great toe gangrene. Discuss vascular and Podiatry recommendation. Due to worsening of left foot gangrene may required left BKA defer to vascular. Patient left foot pain in tolerable. Currently denies any chest pain, fever, SOB, abdominal pain or any acute distress. Objective vital signs Vital Sign Date Time Temp Pulse Resp B/P (MAP) Pulse Ox O2 Delivery O2 Flow Rate FiO2 05/08/25 09:00 97.8 60 20 106/66 (79) 97 97.8 05/08/25 08:00 Room Air* 0 21 Total Intake and Output 05/07/25 05/07/25 05/08/25 15:00 23:00 07:00 Intake Total 300 ml 1450 ml 700 ml Output Total 100 ml Balance 300 ml 1450 ml 600 ml medications Current Medications Medications Dose Ordered Sig/Bandar Route Start Time Stop Time Status Last Admin Dose Admin Sodium Chloride 10 ml Q8HR IV 05/04/25 22:00 05/08/25 05:32 10 ML Ondansetron HCl 4 mg Q4HP PRN IV 05/04/25 15:00 Acetaminophen 650 mg Q6HP PRN PO 05/04/25 15:00 Amlodipine Besylate 5 mg DAILY PO 05/05/25 10:00 05/08/25 08:49 5 MG Atorvastatin Calcium 20 mg HS PO 05/05/25 22:00 05/07/25 21:18 20 MG Hydrochlorothiazide 25 mg DAILY PO 05/05/25 10:00 05/08/25 08:50 25 MG Ceftriaxone Sodium/Dextrose 50 ml @ 50 mls/hr DAILY@2100 IV 05/04/25 22:30 05/07/25 21:17 50 MLS/HR Linezolid 300 ml @ 150 mls/hr Q12HR IV 05/04/25 22:00 05/08/25 08:49 150 MLS/HR Clopidogrel Bisulfate 75 mg DAILY PO 05/07/25 10:00 05/08/25 08:49 75 MG Aspirin 81 mg DAILY PO 05/07/25 10:00 05/08/25 08:50 81 MG Pantoprazole Sodium 40 mg DAILY@0600 PO 05/08/25 06:00 05/08/25 05:32 40 MG Enoxaparin Sodium 70 mg Q12HR SC 05/08/25 22:00 Enteral Nutritional Formula 240 ml TIDWM PO 05/08/25 12:00 laboratory and microbiology Laboratory Tests 05/08/25 06:22 Test 05/08/25 06:22 Range/Units Serum Glucose 137 H 74-106 mg/dL Microbiology Date/Time Source Procedure Growth Status 05/06/25 18:49 Blood Blood Culture - Preliminary NO GROWTH AFTER 24 HOURS OF INCUBATION. Resulted 05/04/25 22:54 Nose MRSA Screen - Final Complete Problem List/Assessment/Plan Problem List/Assessment/Plan Assessment and plan # Left Toe Dry Gangrene due to Severe PAD #Severe Peripheral Arterial Disease (PAD) #History of Left Toe Osteomyelitis Likely secondary to critical limb ischemia. Podiatry and vascular surgery consulted. Left SFA stenting completed on 05/06/2025; right lower extremity angiogram planned for tomorrow Keep patient NPO from midnight Continue aspirin, Plavix, and statin therapy. Continue antibiotics: ceftriaxone and linezolid. # Left Lower Extremity DVT (Popliteal Vein) Transition from apixaban to enoxaparin 70 mg BID. Monitor for bleeding and renal function due to CKD. # Chronic Kidney Disease Stage III Monitor renal function and electrolytes. Avoid nephrotoxic agents. Adjust medications as needed for renal dosing. # Type 2 Diabetes Mellitus with Peripheral Neuropathy HbA1c 6.7 diet controlled. Monitor for foot ulcers and neuropathic complications. CMP blood glucose ranges 130-140 #Hypertensive Heart Disease with Diastolic Dysfunction and LVH Continue antihypertensives: amlodipine, HCTZ. Monitor BP and symptoms of heart failure. Cardiac diet. #Anemia of chronic disease Likely secondary to CKD. Monitor hemoglobin and iron studies. # Hyperkalemia Treated with Lokelma, albuterol, bicarbonate, and calcium. Monitor potassium levels. #NSTEMI Type 2 (Demand Ischemia) Continue medical management. # Transaminitis Monitor liver enzymes. Review medications for hepatotoxicity. # History of Severe Triple-Vessel CAD (Declined CABG) Continue medical management. Aspirin, Plavix, statin. # History of Testicular Cancer #Hyperlipidemia Continue atorvastatin. Monitor lipid panel. # gait instability: Patient benefitted with physical therapy Goals of care discussions, full code status. More than 29 minute spent with patient. Case discussed with Dr. York. Plan discussed with: Patient, Other (Nurse) My Orders My Orders Orders - ANGELA ANGEL Procedure Category Date Status Time Nutritional PHA 05/08/25 In Process Supplements (Glucerna 12:00 Dietary Evaluation Review Comments: 1) [facility] to [facility] + cardiac diet 2) Armen 1 pk BID, MVI w/ minerals 1 tab daily, VitC 500mg BID, Zinc sulfate 220mg BID x 10 days 3) Monitor NPO status, lab values, weight trend, and I/O Expected Outcomes/Goals: To meet >75% estimated needs Wound to improve Fu 2-3 days Date of Service: May 08, 2025 Billing Provider: LAUREN YORK MD Common Visit Codes: [id number] INP/OBS CARE(HIGH) ANGELA ANGEL RESIDENT May 08, 2025 11:04 LAUREN YORK MD May 13, 2025 22:12
--- NOTE | 2025-05-08 11:29 | DVH ---
CLINICAL HISTORY: Right arm swelling TECHNIQUE: Color and duplex doppler imaging of the right upper extremity veins and right subclavian v ein was performed. Vessel compression if possible was also performed. WID: COMPARISON: US BILAT LOW EXT ART DUPLEX on DOS: 05/04/25, US BILAT LOWER DVT on DOS: 05/04/25, US BILAT LOWER DVT on DOS: 04/20/25 FINDINGS: The right internal jugular, axillary, basilic, cephalic, brachial , radial, and ulnar veins are samuel nt and demonstrate normal compressibility and flow. The right subclavian is patent. IMPRESSION: 1. NO SONOGRAPHIC EVIDENCE FOR DEEP VENOUS THROMBOSIS IN THE RIGHT UPPER EXTREMITY VEINS. 2. Anechoic structure with internal lace-like reticulations in the inner upper arm which could reflec t a hematoma
[2025-05-08] MEDS: Glucerna Carbsteady SHAKE Vanilla 8oz PO SCH (12:27)
[2025-05-08 13:00] VITALS: BP 123/71; PULSE 94; RESP 20; TEMP 97.6; O2SAT 98
[2025-05-08 17:00] VITALS: BP 129/69; PULSE 96; RESP 20; TEMP 96.8; O2SAT 97
[2025-05-08 21:00] VITALS: BP 123/74; PULSE 90; RESP 18; TEMP 98.2; O2SAT 95
[2025-05-08] MEDS: ENOXAPARIN SOD 100 MG/1 ML SYRINGE SC SCH (21:18)
[2025-05-09] VITALS (7 sets, daily range): BP systolic 124–132; BP diastolic 60–71; PULSE 50–109; RESP 17–18; TEMP 97.7–98.2; O2SAT 95–98
--- NOTE | 2025-05-09 06:40 | DVHPNRES ---
Progress Note Date Seen: May 09, 2025 Resident Creating Document: TAMI LOPEZ Medical Necessity Reason Pt with a Central, PICC or Fol: No Subjective Review of Systems The patient was seen and examined at bedside today. He denies any SOB, chest pain, fever or any other complaints. His right leg stent placement scheduled for today. Objective vital signs Vital Sign Date Time Temp Pulse Resp B/P (MAP) Pulse Ox O2 Delivery O2 Flow Rate FiO2 05/09/25 05:00 98.1 100 18 130/71 (90) 97 98.1 05/08/25 20:05 Room Air* 0 21 Total Intake and Output 05/08/25 05/08/25 05/09/25 15:00 23:00 07:00 Intake Total 300 ml 250 ml 700 ml Output Total 651 ml 1500 ml Balance 300 ml -401 ml -800 ml medications Current Medications Medications Dose Ordered Sig/Bandar Route Start Time Stop Time Status Last Admin Dose Admin Sodium Chloride 10 ml Q8HR IV 05/04/25 22:00 05/09/25 05:16 10 ML Ondansetron HCl 4 mg Q4HP PRN IV 05/04/25 15:00 Acetaminophen 650 mg Q6HP PRN PO 05/04/25 15:00 Amlodipine Besylate 5 mg DAILY PO 05/05/25 10:00 05/08/25 08:49 5 MG Atorvastatin Calcium 20 mg HS PO 05/05/25 22:00 05/08/25 21:17 20 MG Hydrochlorothiazide 25 mg DAILY PO 05/05/25 10:00 05/08/25 08:50 25 MG Ceftriaxone Sodium/Dextrose 50 ml @ 50 mls/hr DAILY@2100 IV 05/04/25 22:30 05/08/25 21:18 50 MLS/HR Linezolid 300 ml @ 150 mls/hr Q12HR IV 05/04/25 22:00 05/08/25 22:27 150 MLS/HR Clopidogrel Bisulfate 75 mg DAILY PO 05/07/25 10:00 05/08/25 08:49 75 MG Aspirin 81 mg DAILY PO 05/07/25 10:00 05/08/25 08:50 81 MG Pantoprazole Sodium 40 mg DAILY@0600 PO 05/08/25 06:00 05/08/25 05:32 40 MG Enoxaparin Sodium 70 mg Q12HR SC 05/08/25 22:00 Enteral Nutritional Formula 240 ml TIDWM PO 05/08/25 12:00 05/08/25 18:00 240 ML Ascorbic Acid 500 mg DAILY PO 05/09/25 10:00 Zinc Sulfate 220 mg DAILY PO 05/09/25 10:00 Examination General Appearance: Alert, Oriented X3, Cooperative, Mild distress HEENT: Atraumatic, Mucous membranes moist/pink Respiratory: Clear to auscultation, Normal air movement, No added sounds Cardiovascular: Regular rate, Normal S1, Normal S2, No murmurs Abdominal/ : Active bowel sounds, Soft, no distention, no tenderness Extremities: No edema, Normal pulses, No tenderness/swelling, Right upper arm 7x7 cm hematoma, left great toe gangrene, surrounding erythema. Skin: As above Neuro: Normal speech, sensorimotor deficits none Psych/Mental Status: Mental status NL, Mood NL Nurse was there as toppiece chopper during examination laboratory and microbiology Laboratory Tests 05/08/25 06:22 Test 05/08/25 06:22 Range/Units Serum Glucose 137 H 74-106 mg/dL Microbiology Date/Time Source Procedure Growth Status 05/06/25 18:49 Blood Blood Culture - Preliminary NO GROWTH AFTER 48 HOURS OF INCUBATION. Resulted 05/04/25 22:54 Nose MRSA Screen - Final Complete Labs and/or images reviewed: Labs reviewed by me, Image(s) reviewed by me Problem List/Assessment/Plan Problem List/Assessment/Plan # Left Toe Dry Gangrene due to Severe PAD #Severe Peripheral Arterial Disease (PAD) #Left Toe Osteomyelitis Likely secondary to critical limb ischemia. Podiatry and vascular surgery consulted. Left SFA stenting completed on 05/06/2025; right lower extremity angiogram was canceled due to patient's elevated creatinine most probably due to contrast, status post left-sided stent placement. Keep patient NPO after midnight Continue aspirin, Plavix, and statin therapy. Continue antibiotics: ceftriaxone and linezolid. # Left Lower Extremity DVT (Popliteal Vein) Transition from apixaban to enoxaparin 70 mg BID. Monitor for bleeding and renal function due to CKD. # AD on Chronic Kidney Disease Stage III; can not rule out vasomotor nephropathy; most likely contrast induced Monitor renal function and electrolytes. Avoid nephrotoxic agents. Adjust medications as needed for renal dosing. #Hematoma in the right upper arm Doppler of the right upper extremity: No DVT, Anechoic structure with internal lace-like reticulations in the inner upper arm which could reflect a hematoma monitor symptoms of bleeding. # Type 2 Diabetes Mellitus with Peripheral Neuropathy HbA1c 6.7 diet controlled. Monitor for foot ulcers and neuropathic complications. CMP blood glucose ranges 130-140 #Hypertensive Heart Disease with Diastolic Dysfunction and LVH Continue antihypertensives: amlodipine, HCTZ. Monitor BP and symptoms of heart failure. Cardiac diet. #Anemia of chronic disease Likely secondary to CKD. Monitor hemoglobin and iron studies. # Hyperkalemia Treated with Lokelma, albuterol, bicarbonate, and calcium. Monitor potassium levels. #NSTEMI Type 2 (Demand Ischemia) Continue medical management. # Transaminitis Monitor liver enzymes. Review medications for hepatotoxicity. # History of Severe Triple-Vessel CAD (Declined CABG) Continue medical management. Aspirin, Plavix, statin. # History of Testicular Cancer; in remission #Hyperlipidemia Continue atorvastatin. Monitor lipid panel. # gait instability: Continue physical therapy Goals of care discussed with the patient for 20 minutes; full code Case discussed with Plan discussed with: Patient, Other (RN) Dietary Evaluation Review Comments: 1) Advance to [facility] 75gm + cardiac diet 2) Armen 1 pk BID, MVI w/ minerals 1 tab daily, VitC 500mg BID, Zinc sulfate 220mg BID x 10 days 3) Monitor NPO status, lab values, weight trend, and I/O Expected Outcomes/Goals: To meet >75% estimated needs Wound to improve Fu 2-3 days Addendum Addendum Addendum I was physically present for the galindo portions of the service provided to patient by THE RESIDENT. I have reviewed the documentation, discussed the case with resident and agree with the resident's documentation except as noted. Also the patient's clinical case was discussed with the patient's nurse. This medical document was created using an electronic medical record system with computerized dictation system. Although this document has been carefully reviewed, there might still be some phonetic and typographical errors. These areas are purely typographical due to imperfections of the software programs, and do not reflect any compromise in the patient's medical care. Late signature. Date of Service: May 09, 2025 Billing Provider: MADELINE LEOS MD Common Visit Codes: [id number] INP/OBS CARE(HIGH) Secondary Visit Codes: [id number] CARE PLAN 30 MINUTES (20 minutes) TAMI LOPEZ May 09, 2025 06:40 MADELINE LEOS MD May 10, 2025 13:28
[2025-05-09 07:50] LABS: Hematocrit 22.4 % (41.0-53.0); Hemoglobin 8.0 g/dL (13.5-17.5); Mean Corpuscular Hemoglobin 33.6 pg (28.0-32.0); Mean Corpuscular Volume 93.8 fL (80.0-100.0); Nucleated Red Blood Cells % 0.1 %
[2025-05-09 07:56] LABS: Anion Gap 10 (5-15); Carbon Dioxide 30 mmol/L (20-31); Potassium 3.7 mmol/L (3.5-5.1)
[2025-05-09 07:57] LABS: Calcium 8.9 mg/dL (8.7-10.4)
[2025-05-09 08:02] LABS: BUN/Creatinine Ratio 12.8 (10.0-20.0)
[2025-05-09 08:03] LABS: Magnesium 1.6 mg/dL (1.6-2.6)
[2025-05-09 08:04] LABS: Blood Urea Nitrogen 25 mg/dL (9-23); Chloride 92 mmol/L (98-107); Glucose 136 mg/dL (74-106); Sodium 132 mmol/L (136-145)
[2025-05-09] MEDS: ASCORBIC ACID 500 MG TAB PO SCH (09:54)
[2025-05-09] MEDS: ZINC SULFATE 220mg CAP or TAB PO SCH (09:58)
[2025-05-10] VITALS (8 sets, daily range): BP systolic 109–130; BP diastolic 63–81; PULSE 92–105; RESP 16–20; TEMP 94–98.1; O2SAT 96–100
[2025-05-10 06:19] LABS: Hemoglobin 8.4 g/dL (13.5-17.5)
[2025-05-10 06:22] LABS: Hematocrit 23.7 % (41.0-53.0); Mean Corpuscular Hemoglobin 33.5 pg (28.0-32.0); Mean Corpuscular Volume 94.2 fL (80.0-100.0); Nucleated Red Blood Cells % 0.4 %
[2025-05-10 06:28] LABS: Potassium 3.7 mmol/L (3.5-5.1)
[2025-05-10 06:30] LABS: Anion Gap 11 (5-15); Carbon Dioxide 28 mmol/L (20-31)
[2025-05-10 06:35] LABS: BUN/Creatinine Ratio 14.2 (10.0-20.0); Blood Urea Nitrogen 28 mg/dL (9-23); Calcium 8.6 mg/dL (8.7-10.4); Chloride 93 mmol/L (98-107); Glucose 186 mg/dL (74-106); Sodium 132 mmol/L (136-145)
--- NOTE | 2025-05-10 10:17 | DVHPNRES ---
Progress Note Date Seen: May 10, 2025 Resident Creating Document: TAMI LOPEZ RESIDENT Medical Necessity Reason Pt with a Central, PICC or Fol: No Subjective Review of Systems Benita Joy 74-year-old male with previous history of triple-vessel CAD, testicular cancer, CKD on stage III, type 2 diabetes mellitus with peripheral neuropathy, hyperlipidemia, hypertension, peripheral artery disease, left lower extremity DVT on Eliquis and home hospice care presented to the ER with a history of left leg purple discoloration since last 3 days. The patient was diagnosed with nonocclusive thrombus of the left popliteal vein last week. He denies any chest pain, shortness of breath, abdominal pain or any other complaints today. The patient was admitted at [facility] in February, during the time the patient underwent debridements of the right foot. The patient is not taking Eliquis due to bruising, his home health hospice nurse advised him to stop Eliquis. We restarted him on Eliquis today. Past medical history:triple-vessel CAD patient refused to get CABG, testicular cancer, CKD on stage III, type 2 diabetes mellitus with peripheral neuropathy, hyperlipidemia, hypertension, peripheral artery disease, left lower extremity DVT Past surgical history: Tonsillectomy, debridement of necrotic right toe. Allergies: No known allergy Home medications: Apixaban, linezolid, pantoprazole, atorvastatin, carvedilol, tamsulosin, amlodipine, aspirin, hydrocodone acetaminophen, rifampin Smoking history: None Alcohol: Occasionally Drugs: Denies PCP: Dr. Avendano Code status: Full code The patient was seen and examined at bedside today. He denies any SOB, chest pain, fever or any other complaints Objective vital signs Vital Sign Date Time Temp Pulse Resp B/P (MAP) Pulse Ox O2 Delivery O2 Flow Rate FiO2 05/10/25 09:48 126/81 05/10/25 09:00 96.5 92 17 98 96.5 05/10/25 07:35 Room Air* 0 21 Total Intake and Output 05/09/25 05/09/25 05/10/25 15:00 23:00 07:00 Intake Total 300 ml 850 ml 700 ml Output Total 775 ml 500 ml Balance 300 ml 75 ml 200 ml medications Current Medications Medications Dose Ordered Sig/Bandar Route Start Time Stop Time Status Last Admin Dose Admin Sodium Chloride 10 ml Q8HR IV 05/04/25 22:00 05/10/25 05:36 10 ML Ondansetron HCl 4 mg Q4HP PRN IV 05/04/25 15:00 Acetaminophen 650 mg Q6HP PRN PO 05/04/25 15:00 Amlodipine Besylate 5 mg DAILY PO 05/05/25 10:00 05/10/25 09:47 5 MG Atorvastatin Calcium 20 mg HS PO 05/05/25 22:00 05/09/25 21:32 20 MG Hydrochlorothiazide 25 mg DAILY PO 05/05/25 10:00 05/10/25 09:48 25 MG Ceftriaxone Sodium/Dextrose 50 ml @ 50 mls/hr DAILY@2100 IV 05/04/25 22:30 05/09/25 20:56 50 MLS/HR Linezolid 300 ml @ 150 mls/hr Q12HR IV 05/04/25 22:00 05/10/25 09:41 150 MLS/HR Clopidogrel Bisulfate 75 mg DAILY PO 05/07/25 10:00 05/10/25 09:47 75 MG Aspirin 81 mg DAILY PO 05/07/25 10:00 05/10/25 09:47 81 MG Pantoprazole Sodium 40 mg DAILY@0600 PO 05/08/25 06:00 05/10/25 05:35 40 MG Enoxaparin Sodium 70 mg Q12HR SC 05/08/25 22:00 05/10/25 09:44 70 MG Enteral Nutritional Formula 240 ml TIDWM PO 05/08/25 12:00 05/10/25 09:42 240 ML Ascorbic Acid 500 mg DAILY PO 05/09/25 10:00 05/10/25 09:47 500 MG Zinc Sulfate 220 mg DAILY PO 05/09/25 10:00 05/10/25 09:46 220 MG Examination General Appearance: Alert, Oriented X3, Cooperative, Mild distress HEENT: Atraumatic, Mucous membranes moist/pink Respiratory: Clear to auscultation, Normal air movement, No added sounds Cardiovascular: Regular rate, Normal S1, Normal S2, No murmurs Abdominal/ : Active bowel sounds, Soft, no distention, no tenderness Extremities: No edema, Normal pulses, No tenderness/swelling, Right upper arm 7x7 cm hematoa, left great toe gangrene, surrounding erythema. Skin: No Significant rash, except past surgical scars Neuro: Normal speech, sensorimotor deficits none Psych/Mental Status: Mental status NL, Mood NL Nurse was there as painter assistant during examination laboratory and microbiology Laboratory Tests 05/10/25 05:15 Test 05/10/25 05:15 Range/Units Serum Glucose 186 H 74-106 mg/dL Microbiology Date/Time Source Procedure Growth Status 05/06/25 18:49 Blood Blood Culture - Preliminary NO GROWTH AFTER 72 HOURS OF INCUBATION. Resulted 05/04/25 22:54 Nose MRSA Screen - Final Complete Problem List/Assessment/Plan Problem List/Assessment/Plan # Left Toe Dry Gangrene due to Severe PAD #Severe Peripheral Arterial Disease - critical limb ischemia #History of Left Toe Osteomyelitis Likely secondary to critical limb ischemia. Podiatry and vascular surgery consulted. Left SFA stenting completed on 05/06/2025; right lower extremity angiogram was canceled due to patient's elevated creatinine most probably due to contrast,status post left-sided stent placement. Patient with IV fluid until kidney function improves and reschedule right lower extremity angiogram. Keep patient NPO from midnight Continue aspirin, Plavix, and statin therapy. Continue antibiotics: ceftriaxone and linezolid. # Left Lower Extremity DVT (Popliteal Vein) Transition from apixaban to enoxaparin 70 mg BID. Monitor for bleeding and renal function due to CKD. # AD on Chronic Kidney Disease Stage III due to contrast induced nephropathy Monitor renal function and electrolytes. Avoid nephrotoxic agents. Adjust medications as needed for renal dosing. Continue IV fluids and Mucomyst. Once improved, we will complete right-sided lower limb angiography #Hematoma in the right upper arm Doppler of the right upper extremity: No DVT, Anechoic structure with internal lace-like reticulations in the inner upper arm which could reflect a hematoma monitor symptoms of bleeding. # Type 2 Diabetes Mellitus with Peripheral Neuropathy HbA1c 6.7 diet controlled. Monitor for foot ulcers and neuropathic complications. CMP blood glucose ranges 130-140 #Hypertensive Heart Disease with Diastolic Dysfunction and LVH Continue antihypertensives: amlodipine, HCTZ. Monitor BP and symptoms of heart failure. Cardiac diet. #Anemia of chronic disease Likely secondary to CKD. Monitor hemoglobin and iron studies. # Hyperkalemia Treated with Lokelma, albuterol, bicarbonate, and calcium. Monitor potassium levels. #NSTEMI Type 2 (Demand Ischemia) #History of Severe Triple-Vessel CAD (Declined CABG) Continue medical management. Aspirin, Plavix, statin # Transaminitis Monitor liver enzymes. Review medications for hepatotoxicity. # History of Testicular Cancer #Hyperlipidemia Continue atorvastatin. Monitor lipid panel. # gait instability: Patient benefitted with physical therapy Goals of care discussions, full code status. More than 29 minute spent with patient. Case discussed with Full code status Plan discussed with: Patient, Other (RN) My Orders My Orders Orders - TAMI LOPEZ RESIDENT Procedure Category Date Status Time Cardiac DIET 05/09/25 Transmitted Diet-2gna,Lofat,Lochol Dinner * Dietary Consult CONS 05/09/25 Transmitted 20:17 * Pastoral Care CONS 05/09/25 Transmitted Consult 20:17 Dietary Evaluation Review Comments: 1) [facility] to [facility] 75gm + cardiac diet 2) Armen 1 pk BID, MVI w/ minerals 1 tab daily, VitC 500mg BID, Zinc sulfate 220mg BID x 10 days 3) Monitor NPO status, lab values, weight trend, and I/O Expected Outcomes/Goals: To meet >75% estimated needs Wound to improve Fu 2-3 days Date of Service: May 10, 2025 Billing Provider: LAUREN MA MD Common Visit Codes: [id number] INP/OBS CARE(HIGH) TAMI LOPEZ RESIDENT May 10, 2025 10:17 DANA MERCADO RESIDENT May 11, 2025 00:30 LAUREN MA MD May 13, 2025 22:24
[2025-05-10] MEDS ORDERED: SODIUM CHLORIDE 0.9% 1,000 ML IV SCH ×2 (11:15→12:45)
--- NOTE | 2025-05-10 11:22 | DVHPN2 ---
Consult Progress Note Date Seen: May 10, 2025 Subjective Review of Systems: HEENT:Abnormal, RESPIRATORY:Normal, NEURO:Normal Objective vital signs Vital Sign Date Time Temp Pulse Resp B/P (MAP) Pulse Ox O2 Delivery O2 Flow Rate FiO2 05/10/25 09:48 126/81 05/10/25 09:00 96.5 92 17 98 96.5 05/10/25 07:35 Room Air* 0 21 Total Intake and Output 05/09/25 05/09/25 05/10/25 14:59 22:59 06:59 Intake Total 300 ml 850 ml 700 ml Output Total 775 ml 500 ml Balance 300 ml 75 ml 200 ml medications Current Medications Medications Dose Ordered Sig/Bandar Route Start Time Stop Time Status Last Admin Dose Admin Sodium Chloride 10 ml Q8HR IV 05/04/25 22:00 05/10/25 05:36 10 ML Ondansetron HCl 4 mg Q4HP PRN IV 05/04/25 15:00 Acetaminophen 650 mg Q6HP PRN PO 05/04/25 15:00 Amlodipine Besylate 5 mg DAILY PO 05/05/25 10:00 05/10/25 09:47 5 MG Atorvastatin Calcium 20 mg HS PO 05/05/25 22:00 05/09/25 21:32 20 MG Hydrochlorothiazide 25 mg DAILY PO 05/05/25 10:00 05/10/25 09:48 25 MG Ceftriaxone Sodium/Dextrose 50 ml @ 50 mls/hr DAILY@2100 IV 05/04/25 22:30 05/09/25 20:56 50 MLS/HR Linezolid 300 ml @ 150 mls/hr Q12HR IV 05/04/25 22:00 05/10/25 09:41 150 MLS/HR Clopidogrel Bisulfate 75 mg DAILY PO 05/07/25 10:00 05/10/25 09:47 75 MG Aspirin 81 mg DAILY PO 05/07/25 10:00 05/10/25 09:47 81 MG Pantoprazole Sodium 40 mg DAILY@0600 PO 05/08/25 06:00 05/10/25 05:35 40 MG Enoxaparin Sodium 70 mg Q12HR SC 05/08/25 22:00 05/10/25 09:44 70 MG Enteral Nutritional Formula 240 ml TIDWM PO 05/08/25 12:00 05/10/25 09:42 240 ML Ascorbic Acid 500 mg DAILY PO 05/09/25 10:00 05/10/25 09:47 500 MG Zinc Sulfate 220 mg DAILY PO 05/09/25 10:00 05/10/25 09:46 220 MG Examination: GENERAL:Abnormal (Chronically ill), LUNGS:Normal, CVS:Normal, MSK:Abnormal (Bilateral lower extremity necrotic wounds (see wound care pictures)), NEURO:Normal laboratory and microbiology Laboratory Tests 05/10/25 05:15 Test 05/10/25 05:15 Range/Units Serum Glucose 186 H 74-106 mg/dL Problem List/Assessment/Plan Problem List/Assessment/Plan Severe peripheral arterial disease with associated bilateral lower extremity wounds Severe triple-vessel coronary artery disease (has declined CABG) NSTEMI likely type II secondary to above Hypertension Dyslipidemia Left popliteal vein DVT AD on chronic kidney disease stage III Obesity Plan/Recommendation (Dr. Ji) Case discussed with Dr. Ji. 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 Stage procedure of the right lower extremity aborted given acute kidney injury likely AGUSTIN from previous procedure. Initiate renal hydration, mucomyst for renal protection, and discontinue HCTZ. Continue aspirin, Plavix, and statin. Continue therapeutic Lovenox given left popliteal DVT. Consider nephrology consultation if deemed necessary. We will re-evaluate at a future time for tentative RLE angiogram pending renal improvement. Further orders per clinical course. Thank you for allowing us to care for this patient. Please call with any questions or concerns. This medical document was created using an electronic medical record system with voice recognition software and computerized dictation system. Although this document has been carefully reviewed, there might still be some phonetic and typographical errors. Occasional wrong-word or ``sound-alike substitutions may have occurred due to the inherent limitations of voice recognition software. These areas are purely typographical due to imperfections of the software programs and do not reflect any compromise in the patient's medical care. Please read the chart carefully and recognize, using context, where these substitutions have occurred. Plan discussed with: Patient, Other Dietary Evaluation Review Comments: 1) Advance to [facility] 75gm + cardiac diet 2) Armen 1 pk BID, MVI w/ minerals 1 tab daily, VitC 500mg BID, Zinc sulfate 220mg BID x 10 days 3) Monitor NPO status, lab values, weight trend, and I/O Expected Outcomes/Goals: To meet >75% estimated needs Wound to improve Fu 2-3 days Date of Service: May 10, 2025 Billing Provider: MORGAN KATZ Cardiology Common Codes: [id number] HOSP CARE(High MORGAN KATZ May 10, 2025 11:22
[2025-05-10] MEDS: MAGNESIUM SULFATE 1GM/100ML 100 ML IV ONE (11:46)
[2025-05-10] MEDS: SODIUM CHLORIDE 0.9% 500 ML IV ONE (11:47)
[2025-05-10] MEDS: ACETYLCYSTEINE ORAL for CIN 20%(200MG/ML) 4ML PO ONE (11:59)
[2025-05-10] MEDS: SODIUM CHLORIDE 0.9% 1,000 ML IV SCH (14:30)
[2025-05-10] MEDS: ACETYLCYSTEINE ORAL for CIN 20%(200MG/ML) 4ML PO SCH (22:08)
[2025-05-11] VITALS (8 sets, daily range): BP systolic 107–124; BP diastolic 62–74; PULSE 98–113; RESP 16–18; TEMP 97–98.2; O2SAT 96–99
[2025-05-11 06:32] LABS: Anion Gap 10 (5-15); Carbon Dioxide 26 mmol/L (20-31); Potassium 3.8 mmol/L (3.5-5.1)
[2025-05-11 06:33] LABS: Hematocrit 20.2 % (41.0-53.0); Hemoglobin 7.2 g/dL (13.5-17.5); Mean Corpuscular Hemoglobin 33.1 pg (28.0-32.0); Nucleated Red Blood Cells % 0.0 %
[2025-05-11 06:38] LABS: BUN/Creatinine Ratio 14.6 (10.0-20.0)
[2025-05-11 06:39] LABS: Mean Corpuscular Volume 93.1 fL (80.0-100.0)
[2025-05-11 06:53] LABS: Blood Urea Nitrogen 25 mg/dL (9-23); Calcium 8.2 mg/dL (8.7-10.4); Chloride 96 mmol/L (98-107); Glucose 147 mg/dL (74-106); Sodium 132 mmol/L (136-145)
--- NOTE | 2025-05-11 12:27 | DVHPN2 ---
Consult Progress Note Date Seen: May 11, 2025 Subjective Review of Systems: CVS:Normal, RESPIRATORY:Normal, NEURO:Normal Objective vital signs Vital Sign Date Time Temp Pulse Resp B/P (MAP) Pulse Ox O2 Delivery O2 Flow Rate FiO2 05/11/25 10:14 117/63 05/11/25 09:00 97.0 98 16 99 97.0 05/11/25 07:45 Room Air* 0 21 Total Intake and Output 05/10/25 05/10/25 05/11/25 15:00 23:00 07:00 Intake Total 900 ml 764 ml 700 ml Output Total 500 ml 900 ml Balance 900 ml 264 ml -200 ml medications Current Medications Medications Dose Ordered Sig/Bandar Route Start Time Stop Time Status Last Admin Dose Admin Sodium Chloride 10 ml Q8HR IV 05/04/25 22:00 05/11/25 05:57 10 ML Ondansetron HCl 4 mg Q4HP PRN IV 05/04/25 15:00 Acetaminophen 650 mg Q6HP PRN PO 05/04/25 15:00 Amlodipine Besylate 5 mg DAILY PO 05/05/25 10:00 05/11/25 10:14 5 MG Atorvastatin Calcium 20 mg HS PO 05/05/25 22:00 05/10/25 22:28 20 MG Ceftriaxone Sodium/Dextrose 50 ml @ 50 mls/hr DAILY@2100 IV 05/04/25 22:30 05/10/25 20:41 50 MLS/HR Linezolid 300 ml @ 150 mls/hr Q12HR IV 05/04/25 22:00 05/11/25 10:06 150 MLS/HR Clopidogrel Bisulfate 75 mg DAILY PO 05/07/25 10:00 05/11/25 10:14 75 MG Aspirin 81 mg DAILY PO 05/07/25 10:00 05/11/25 10:14 81 MG Pantoprazole Sodium 40 mg DAILY@0600 PO 05/08/25 06:00 05/11/25 05:56 40 MG Enoxaparin Sodium 70 mg Q12HR SC 05/08/25 22:00 05/11/25 10:11 70 MG Enteral Nutritional Formula 240 ml TIDWM PO 05/08/25 12:00 05/11/25 10:06 240 ML Ascorbic Acid 500 mg DAILY PO 05/09/25 10:00 05/11/25 10:15 500 MG Zinc Sulfate 220 mg DAILY PO 05/09/25 10:00 05/11/25 10:10 220 MG Acetylcysteine 600 mg BID PO 05/10/25 22:00 05/12/25 21:59 05/11/25 10:08 600 MG Sodium Chloride 1,000 ml @ 75 mls/hr [id number] IV 05/10/25 14:30 05/10/25 22:00 75 MLS/HR Examination: LUNGS:Normal, CVS:Normal, MSK:Abnormal (Bilateral lower extremity necrotic wounds, see wound care pictures), NEURO:Normal laboratory and microbiology Laboratory Tests 05/11/25 05:22 Test 05/11/25 05:22 Range/Units Serum Glucose 147 H 74-106 mg/dL Problem List/Assessment/Plan Problem List/Assessment/Plan Severe peripheral arterial disease with associated bilateral lower extremity wounds Severe triple-vessel coronary artery disease (has declined CABG) NSTEMI likely type II secondary to above Hypertension Dyslipidemia Left popliteal vein DVT AD on chronic kidney disease stage III Obesity Plan/Recommendation (Dr. Ji) Case discussed with Dr. Ji. 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 Stage procedure of the right lower extremity aborted given acute kidney injury likely AGUSTIN from previous interventional procedure. Continue renal hydration and mucomyst for renal protection. Continue aspirin, Plavix, and statin. Continue therapeutic Lovenox given left popliteal DVT. Consider nephrology consultation if deemed necessary. We will re-evaluate at a future time for tentative RLE angiogram pending renal improvement. Further orders per clinical course. Thank you for allowing us to care for this patient. Please call with any questions or concerns. This medical document was created using an electronic medical record system with voice recognition software and computerized dictation system. Although this document has been carefully reviewed, there might still be some phonetic and typographical errors. Occasional wrong-word or ``sound-alike substitutions may have occurred due to the inherent limitations of voice recognition software. These areas are purely typographical due to imperfections of the software programs and do not reflect any compromise in the patient's medical care. Please read the chart carefully and recognize, using context, where these substitutions have occurred. Plan discussed with: Patient, Other Dietary Evaluation Review Comments: 1) [facility] + cardiac diet 2) Armen 1 pk BID, MVI w/ minerals 1 tab daily, VitC 500mg BID, Zinc sulfate 220mg BID x 10 days 3) Monitor NPO status, lab values, weight trend, and I/O Expected Outcomes/Goals: To meet >75% estimated needs Wound to improve Fu 2-3 days Date of Service: May 11, 2025 Billing Provider: MORGAN KATZ Cardiology Common Codes: [id number] HOSP CARE(High MORGAN KATZ May 11, 2025 12:27
--- NOTE | 2025-05-11 19:15 | DVHPNRES ---
Progress Note Date Seen: May 11, 2025 Resident Creating Document: TAMI LOPEZ RESIDENT Medical Necessity Reason Pt with a Central, PICC or Fol: No Subjective Review of Systems Benita Joy 74-year-old male with previous history of triple-vessel CAD, testicular cancer, CKD on stage III, type 2 diabetes mellitus with peripheral neuropathy, hyperlipidemia, hypertension, peripheral artery disease, left lower extremity DVT on Eliquis and home hospice care presented to the ER with a history of left leg purple discoloration since last 3 days. The patient was diagnosed with nonocclusive thrombus of the left popliteal vein last week. He denies any chest pain, shortness of breath, abdominal pain or any other complaints today. The patient was admitted at [facility] in February, during the time the patient underwent debridements of the right foot. The patient is not taking Eliquis due to bruising, his home health hospice nurse advised him to stop Eliquis. We restarted him on Eliquis today. Past medical history:triple-vessel CAD, testicular cancer, CKD on stage III, type 2 diabetes mellitus with peripheral neuropathy, hyperlipidemia, hypertension, peripheral artery disease, left lower extremity DVT Past surgical history: Tonsillectomy, debridement of necrotic right toe. Allergies: No known allergy Home medications: Apixaban, linezolid, pantoprazole, atorvastatin, carvedilol, tamsulosin, amlodipine, aspirin, hydrocodone acetaminophen, rifampin Smoking history: None Alcohol: Occasionally Drugs: Denies PCP: Dr. Avendano Code status: Full code The patient was seen and examined at bedside today. He denies any SOB, chest pain, fever or any other complaints. Objective vital signs Vital Sign Date Time Temp Pulse Resp B/P (MAP) Pulse Ox O2 Delivery O2 Flow Rate FiO2 05/11/25 16:34 97.8 107 18 119/74 (89) 96 97.8 05/11/25 07:45 Room Air* 0 21 Total Intake and Output 05/10/25 05/10/25 05/11/25 15:00 23:00 07:00 Intake Total 900 ml 764 ml 700 ml Output Total 500 ml 900 ml Balance 900 ml 264 ml -200 ml medications Current Medications Medications Dose Ordered Sig/Bandar Route Start Time Stop Time Status Last Admin Dose Admin Sodium Chloride 10 ml Q8HR IV 05/04/25 22:00 05/11/25 14:00 10 ML Ondansetron HCl 4 mg Q4HP PRN IV 05/04/25 15:00 Acetaminophen 650 mg Q6HP PRN PO 05/04/25 15:00 Amlodipine Besylate 5 mg DAILY PO 05/05/25 10:00 05/11/25 10:14 5 MG Atorvastatin Calcium 20 mg HS PO 05/05/25 22:00 05/10/25 22:28 20 MG Ceftriaxone Sodium/Dextrose 50 ml @ 50 mls/hr DAILY@2100 IV 05/04/25 22:30 05/10/25 20:41 50 MLS/HR Linezolid 300 ml @ 150 mls/hr Q12HR IV 05/04/25 22:00 05/11/25 10:06 150 MLS/HR Clopidogrel Bisulfate 75 mg DAILY PO 05/07/25 10:00 05/11/25 10:14 75 MG Aspirin 81 mg DAILY PO 05/07/25 10:00 05/11/25 10:14 81 MG Pantoprazole Sodium 40 mg DAILY@0600 PO 05/08/25 06:00 05/11/25 05:56 40 MG Enoxaparin Sodium 70 mg Q12HR SC 05/08/25 22:00 05/11/25 10:11 70 MG Enteral Nutritional Formula 240 ml TIDWM PO 05/08/25 12:00 05/11/25 18:02 240 ML Ascorbic Acid 500 mg DAILY PO 05/09/25 10:00 05/11/25 10:15 500 MG Zinc Sulfate 220 mg DAILY PO 05/09/25 10:00 05/11/25 10:10 220 MG Acetylcysteine 600 mg BID PO 05/10/25 22:00 05/12/25 21:59 05/11/25 10:08 600 MG Sodium Chloride 1,000 ml @ 75 mls/hr [id number] IV 05/10/25 14:30 05/11/25 18:02 75 MLS/HR Examination General Appearance: Alert, Oriented X3, Cooperative, Mild distress HEENT: Atraumatic, Mucous membranes moist/pink Respiratory: Clear to auscultation, Normal air movement, No added sounds Cardiovascular: Regular rate, Normal S1, Normal S2, No murmurs Abdominal/ : Active bowel sounds, Soft, no distention, no tenderness Extremities: No edema, Normal pulses, No tenderness/swelling, Right upper arm 7x7 cm hematoa, left great toe gangrene, surrounding erythema. Skin: No Significant rash, except past surgical scars Neuro: Normal speech, sensorimotor deficits none Psych/Mental Status: Mental status NL, Mood NL Nurse was there as senior operations manager during examination laboratory and microbiology Laboratory Tests 05/11/25 05:22 Test 05/11/25 05:22 Range/Units Serum Glucose 147 H 74-106 mg/dL Microbiology Date/Time Source Procedure Growth Status 05/06/25 18:49 Blood Blood Culture - Final NO GROWTH AFTER 5 DAYS OF INCUBATION. Complete 05/04/25 22:54 Nose MRSA Screen - Final Complete Labs and/or images reviewed: Labs reviewed by me, Image(s) reviewed by me Problem List/Assessment/Plan Problem List/Assessment/Plan # Left Toe Dry Gangrene due to Severe PAD #Severe Peripheral Arterial Disease (PAD) #History of Left Toe Osteomyelitis Likely secondary to critical limb ischemia. Podiatry and vascular surgery consulted. # Left Toe Dry Gangrene due to Severe PAD #Severe Peripheral Arterial Disease (PAD) #History of Left Toe Osteomyelitis Likely secondary to critical limb ischemia. Podiatry and vascular surgery consulted. Left SFA stenting completed on 05/06/2025; right lower extremity angiogram was canceled due to patient's elevated creatinine most probably due to contrast,status post left-sided stent placement. Patient with IV fluid until kidney function improves and reschedule right lower extremity angiogram. Cardiology was consulted for rescheduling the procedure outpatient.The patient was transferred to [facility], however the transfer was declined. Continue aspirin, Plavix, and statin therapy. Continue antibiotics: ceftriaxone and linezolid. # Left Lower Extremity DVT (Popliteal Vein) Transition from apixaban to enoxaparin 70 mg BID. Monitor for bleeding and renal function due to CKD. # AD on Chronic Kidney Disease Stage III likely secondary to contrast induced nephropathy Monitor renal function and electrolytes. Avoid nephrotoxic agents. Adjust medications as needed for renal dosing. Continue IV fluids and Mucomyst. We will complete right sided angiography once renal function improves. #Hematoma in the right upper arm Doppler of the right upper extremity: No DVT, Anechoic structure with internal lace-like reticulations in the inner upper arm which could reflect a hematoma monitor symptoms of bleeding. # Type 2 Diabetes Mellitus with Peripheral Neuropathy HbA1c 6.7 diet controlled. Monitor for foot ulcers and neuropathic complications. CMP blood glucose ranges 130-140 #Hypertensive Heart Disease with Diastolic Dysfunction and LVH Continue antihypertensives: amlodipine, HCTZ. Monitor BP and symptoms of heart failure. Cardiac diet. #Anemia of chronic disease Likely secondary to CKD. Monitor hemoglobin and iron studies. # Hyperkalemia Treated with Lokelma, albuterol, bicarbonate, and calcium. Monitor potassium levels. #NSTEMI Type 2 (Demand Ischemia) Continue medical management. # Transaminitis Monitor liver enzymes. Review medications for hepatotoxicity. # History of Severe Triple-Vessel CAD (Declined CABG) Continue medical management. Aspirin, Plavix, statin. # History of Testicular Cancer #Hyperlipidemia Continue atorvastatin. Monitor lipid panel. # gait instability: Patient benefitted with physical therapy Goals of care discussions, full code status. More than 29 minute spent with patient. Case discussed with . Plan discussed with: Patient, Other (RN) My Orders My Orders Orders - TAMI LOPEZ RESIDENT Procedure Category Date Status Time * Manager Acute CONS 05/11/25 Transmitted Consult Dietary Evaluation Review Comments: 1) [facility] + cardiac diet 2) Armen 1 pk BID, MVI w/ minerals 1 tab daily, VitC 500mg BID, Zinc sulfate 220mg BID x 10 days 3) Monitor NPO status, lab values, weight trend, and I/O Expected Outcomes/Goals: To meet >75% estimated needs Wound to improve Fu 2-3 days Date of Service: May 11, 2025 Billing Provider: LAUREN MA MD Common Visit Codes: [id number] INP/OBS CARE(HIGH) TAMI LOPEZ RESIDENT May 11, 2025 19:15 DANA MERCADO RESIDENT May 13, 2025 02:11 LAUREN MA MD May 20, 2025 21:25
[2025-05-12] VITALS (8 sets, daily range): BP systolic 91–110; BP diastolic 57–70; PULSE 82–116; RESP 16–18; TEMP 98–98.9; O2SAT 93–96
[2025-05-12 06:59] LABS: Potassium 4.0 mmol/L (3.5-5.1)
[2025-05-12 07:00] LABS: Chloride 96 mmol/L (98-107); Sodium 130 mmol/L (136-145)
[2025-05-12 07:02] LABS: Calcium 8.2 mg/dL (8.7-10.4)
[2025-05-12 07:05] LABS: BUN/Creatinine Ratio 15.5 (10.0-20.0)
[2025-05-12 07:08] LABS: Blood Urea Nitrogen 25 mg/dL (9-23); Glucose 160 mg/dL (74-106); Hemoglobin 7.4 g/dL (13.5-17.5)
[2025-05-12 07:10] LABS: Hematocrit 21.7 % (41.0-53.0); Mean Corpuscular Hemoglobin 33.1 pg (28.0-32.0); Mean Corpuscular Volume 96.7 fL (80.0-100.0); Nucleated Red Blood Cells % 0.2 %
[2025-05-12 08:30] LABS: Anion Gap 11 (5-15); Carbon Dioxide 23 mmol/L (20-31)
[2025-05-12] MEDS: ONDANSETRON HCL 4 MG/2 ML VIAL IV PRN (10:01)
--- NOTE | 2025-05-12 18:01 | DVHPNRES ---
Progress Note Date Seen: May 12, 2025 Resident Creating Document: TAMI LOPEZ RESIDENT Medical Necessity Reason Pt with a Central, PICC or Fol: No Subjective Review of Systems Past medical history:triple-vessel CAD, testicular cancer, CKD on stage III, type 2 diabetes mellitus with peripheral neuropathy, hyperlipidemia, hypertension, peripheral artery disease, left lower extremity DVT Past surgical history: Tonsillectomy, debridement of necrotic right toe. Allergies: No known allergy Home medications: Apixaban, linezolid, pantoprazole, atorvastatin, carvedilol, tamsulosin, amlodipine, aspirin, hydrocodone acetaminophen, rifampin Smoking history: None Alcohol: Occasionally Drugs: Denies PCP: Dr. Avendano Code status: Full code The patient was seen and examined at bedside today. He denies any SOB, chest pain, fever or any other complaints. Objective vital signs Vital Sign Date Time Temp Pulse Resp B/P (MAP) Pulse Ox O2 Delivery O2 Flow Rate FiO2 05/12/25 16:31 98.4 116 18 97/59 (72) 96 98.4 05/12/25 08:00 Room Air* 0 21 Total Intake and Output 05/11/25 05/11/25 05/12/25 15:00 23:00 07:00 Intake Total 300 ml 2150 ml 600 ml Output Total 500 ml 400 ml Balance 300 ml 1650 ml 200 ml medications Current Medications Medications Dose Ordered Sig/Bandar Route Start Time Stop Time Status Last Admin Dose Admin Sodium Chloride 10 ml Q8HR IV 05/04/25 22:00 05/12/25 14:47 10 ML Ondansetron HCl 4 mg Q4HP PRN IV 05/04/25 15:00 05/12/25 14:47 4 MG Acetaminophen 650 mg Q6HP PRN PO 05/04/25 15:00 Amlodipine Besylate 5 mg DAILY PO 05/05/25 10:00 05/12/25 10:03 5 MG Atorvastatin Calcium 20 mg HS PO 05/05/25 22:00 05/11/25 21:58 20 MG Ceftriaxone Sodium/Dextrose 50 ml @ 50 mls/hr DAILY@2100 IV 05/04/25 22:30 05/11/25 21:47 50 MLS/HR Linezolid 300 ml @ 150 mls/hr Q12HR IV 05/04/25 22:00 05/12/25 10:02 150 MLS/HR Clopidogrel Bisulfate 75 mg DAILY PO 05/07/25 10:00 05/12/25 10:02 75 MG Aspirin 81 mg DAILY PO 05/07/25 10:00 05/12/25 10:02 81 MG Pantoprazole Sodium 40 mg DAILY@0600 PO 05/08/25 06:00 05/12/25 05:26 40 MG Enoxaparin Sodium 70 mg Q12HR SC 05/08/25 22:00 05/12/25 10:03 70 MG Enteral Nutritional Formula 240 ml TIDWM PO 05/08/25 12:00 05/12/25 12:00 240 ML Ascorbic Acid 500 mg DAILY PO 05/09/25 10:00 05/12/25 10:02 500 MG Zinc Sulfate 220 mg DAILY PO 05/09/25 10:00 05/12/25 10:02 220 MG Acetylcysteine 600 mg BID PO 05/10/25 22:00 05/12/25 21:59 05/12/25 10:27 600 MG Sodium Chloride 1,000 ml @ 75 mls/hr [id number] IV 05/10/25 14:30 05/11/25 18:02 75 MLS/HR laboratory and microbiology Laboratory Tests 05/12/25 05:42 Test 05/12/25 05:42 Range/Units Serum Glucose 160 H 74-106 mg/dL Microbiology Date/Time Source Procedure Growth Status 05/06/25 18:49 Blood Blood Culture - Final NO GROWTH AFTER 5 DAYS OF INCUBATION. Complete 05/04/25 22:54 Nose MRSA Screen - Final Complete Problem List/Assessment/Plan Problem List/Assessment/Plan # Left Toe Dry Gangrene due to Severe PAD #Severe Peripheral Arterial Disease (PAD) #History of Left Toe Osteomyelitis Likely secondary to critical limb ischemia. Podiatry and vascular surgery consulted. # Left Toe Dry Gangrene due to Severe PAD #Severe Peripheral Arterial Disease (PAD) #History of Left Toe Osteomyelitis Likely secondary to critical limb ischemia. Podiatry and vascular surgery consulted. Left SFA stenting completed on 05/06/2025; right lower extremity angiogram was canceled due to patient's elevated creatinine most probably due to contrast,status post left-sided stent placement. Patient with IV fluid until kidney function improves and reschedule right lower extremity angiogram. Cardiology was consulted for rescheduling the procedure outpatient. Keep patient NPO from midnight Continue aspirin, Plavix, and statin therapy. Continue antibiotics: ceftriaxone and linezolid. # Left Lower Extremity DVT (Popliteal Vein) Transition from apixaban to enoxaparin 70 mg BID. Monitor for bleeding and renal function due to CKD. # Chronic Kidney Disease Stage III Monitor renal function and electrolytes. Avoid nephrotoxic agents. Adjust medications as needed for renal dosing. #Hematoma in the right upper arm Doppler of the right upper extremity: No DVT, Anechoic structure with internal lace-like reticulations in the inner upper arm which could reflect a hematoma monitor symptoms of bleeding. # Type 2 Diabetes Mellitus with Peripheral Neuropathy HbA1c 6.7 diet controlled. Monitor for foot ulcers and neuropathic complications. CMP blood glucose ranges 130-140 #Hypertensive Heart Disease with Diastolic Dysfunction and LVH Continue antihypertensives: amlodipine, HCTZ. Monitor BP and symptoms of heart failure. Cardiac diet. #Anemia of chronic disease Likely secondary to CKD. Monitor hemoglobin and iron studies. # Hyperkalemia Treated with Lokelma, albuterol, bicarbonate, and calcium. Monitor potassium levels. #NSTEMI Type 2 (Demand Ischemia) Continue medical management. # Transaminitis Monitor liver enzymes. Review medications for hepatotoxicity. # History of Severe Triple-Vessel CAD (Declined CABG) Continue medical management. Aspirin, Plavix, statin. # History of Testicular Cancer #Hyperlipidemia Continue atorvastatin. Monitor lipid panel. # gait instability: Patient benefitted with physical therapy Goals of care discussions, full code status. More than 29 minute spent with patient. Case discussed with . Plan discussed with: Patient, Other (RN) Dietary Evaluation Review Comments: 1) Advance to [facility] 75gm + cardiac diet 2) Armen 1 pk BID, MVI w/ minerals 1 tab daily, VitC 500mg BID, Zinc sulfate 220mg BID x 10 days 3) Monitor NPO status, lab values, weight trend, and I/O Expected Outcomes/Goals: To meet >75% estimated needs Wound to improve Fu 2-3 days Date of Service: May 12, 2025 Billing Provider: LAUREN MA MD Common Visit Codes: [id number] INP/OBS CARE(HIGH) TAMI LOPEZ RESIDENT May 12, 2025 18:01 LAUREN MA MD May 13, 2025 21:42
[2025-05-13] VITALS (11 sets, daily range): BP systolic 86–111; BP diastolic 53–69; PULSE 74–104; RESP 16–20; TEMP 97.1–98.9; O2SAT 91–98
[2025-05-13 06:43] LABS: Anion Gap 12 (5-15); Carbon Dioxide 22 mmol/L (20-31); Potassium 3.9 mmol/L (3.5-5.1)
[2025-05-13 06:49] LABS: BUN/Creatinine Ratio 12.2 (10.0-20.0)
[2025-05-13 06:55] LABS: Nucleated Red Blood Cells % 0.1 %
[2025-05-13 06:58] LABS: Blood Urea Nitrogen 24 mg/dL (9-23); Calcium 8.5 mg/dL (8.7-10.4); Chloride 96 mmol/L (98-107); Glucose 200 mg/dL (74-106); Sodium 130 mmol/L (136-145)
[2025-05-13 07:01] LABS: Hematocrit 19.5 % (41.0-53.0); Mean Corpuscular Hemoglobin 33.4 pg (28.0-32.0); Mean Corpuscular Volume 97.2 fL (80.0-100.0)
[2025-05-13 07:05] LABS: Hemoglobin 6.7 g/dL (13.5-17.5)
[2025-05-13 10:38] LABS: Iron 80.0 ug/dL (65-175)
[2025-05-13 10:45] LABS: Total Iron Binding Capacity 204.0 ug/dL (250-425)
[2025-05-13 10:58] LABS: Ferritin 1192.5 ng/mL (22-322)
[2025-05-13] MEDS: diphenhdrAMINE HCL 12.5 MG/5 ML UD PO ONE (13:59)
--- NOTE | 2025-05-13 14:33 | DVHPN2 ---
Consult Progress Note Subjective Other Systems: Patient reporting generalized weakness. Denies any cardiac symptoms at time of assessment. Objective vital signs Vital Sign Date Time Temp Pulse Resp B/P (MAP) Pulse Ox O2 Delivery O2 Flow Rate FiO2 05/13/25 14:25 98.4 101 18 92/56 98.4 05/13/25 13:06 95 05/13/25 08:00 Room Air* 0 21 Total Intake and Output 05/12/25 05/12/25 05/13/25 15:00 23:00 07:00 Intake Total 300 ml 690 ml 440 ml Output Total 200 ml 301 ml Balance 300 ml 490 ml 139 ml medications Current Medications Medications Dose Ordered Sig/Bandar Route Start Time Stop Time Status Last Admin Dose Admin Sodium Chloride 10 ml Q8HR IV 05/04/25 22:00 05/13/25 05:17 10 ML Ondansetron HCl 4 mg Q4HP PRN IV 05/04/25 15:00 05/12/25 22:46 4 MG Acetaminophen 650 mg Q6HP PRN PO 05/04/25 15:00 Amlodipine Besylate 5 mg DAILY PO 05/05/25 10:00 05/12/25 10:03 5 MG Atorvastatin Calcium 20 mg HS PO 05/05/25 22:00 05/12/25 22:44 20 MG Ceftriaxone Sodium/Dextrose 50 ml @ 50 mls/hr DAILY@2100 IV 05/04/25 22:30 05/12/25 21:14 50 MLS/HR Linezolid 300 ml @ 150 mls/hr Q12HR IV 05/04/25 22:00 05/13/25 10:52 150 MLS/HR Clopidogrel Bisulfate 75 mg DAILY PO 05/07/25 10:00 05/13/25 10:56 75 MG Aspirin 81 mg DAILY PO 05/07/25 10:00 05/13/25 10:55 81 MG Pantoprazole Sodium 40 mg DAILY@0600 PO 05/08/25 06:00 05/13/25 05:17 40 MG Enoxaparin Sodium 70 mg Q12HR SC 05/08/25 22:00 05/13/25 10:51 70 MG Enteral Nutritional Formula 240 ml TIDWM PO 05/08/25 12:00 05/13/25 08:00 240 ML Ascorbic Acid 500 mg DAILY PO 05/09/25 10:00 05/13/25 10:56 500 MG Zinc Sulfate 220 mg DAILY PO 05/09/25 10:00 05/13/25 10:56 220 MG Sodium Chloride 1,000 ml @ 75 mls/hr [id number] IV 05/10/25 14:30 05/13/25 10:52 75 MLS/HR Examination: GENERAL:Abnormal (Generalized weakness), LUNGS:Normal, CVS:Normal, SKIN:Abnormal (Pale), NEURO:Abnormal laboratory and microbiology Laboratory Tests 05/13/25 05:12 Test 05/13/25 05:12 Range/Units Serum Glucose 200 H 74-106 mg/dL Problem List/Assessment/Plan Problem List/Assessment/Plan Severe peripheral arterial disease s/p MAINTENANCE PERSON with stenting of left superficial femoral artery Severe triple-vessel coronary artery disease (has declined CABG) NSTEMI likely type II secondary to above Acute anemia Hypertension Dyslipidemia Left popliteal vein DVT AD on chronic kidney disease stage III Obesity Plan/Recommendation (Dr. Ji) Case discussed with Dr. Ji. The patient with severe peripheral arterial disease is status post peripheral angiogram with MAINTENANCE PERSON and stenting of left superficial femoral artery. The patient was initiated on Plavix and aspirin therapy postprocedure. The patient was also receiving therapeutic Lovenox given left popliteal DVT. Today, the patient's hemoglobin level dropped down to 6.7, requiring a transfusion of one unit of PRBC. Per , the patient should have a GI consultation for anticoagulation recommendations. Further orders per clinical course. Thank you for allowing us to care for this patient. Please call with any questions or concerns. This medical document was created using an electronic medical record system with voice recognition software and computerized dictation system. Although this document has been carefully reviewed, there might still be some phonetic and typographical errors. Occasional wrong-word or ``sound-alike substitutions may have occurred due to the inherent limitations of voice recognition software. These areas are purely typographical due to imperfections of the software programs and do not reflect any compromise in the patient's medical care. Please read the chart carefully and recognize, using context, where these substitutions have occurred. Plan discussed with: Patient, Other (Bedside RN) Dietary Evaluation Review Comments: 1) Advance to [facility] 75gm + cardiac diet 2) Armen 1 pk BID, MVI w/ minerals 1 tab daily, VitC 500mg BID, Zinc sulfate 220mg BID x 10 days 3) Monitor NPO status, lab values, weight trend, and I/O Expected Outcomes/Goals: To meet >75% estimated needs Wound to improve Fu 2-3 days Date of Service: May 13, 2025 Billing Provider: HALEY CISNEROS Common Visit Codes: [id number] INP/OBS CARE(HIGH) HALEY CISNEROS May 13, 2025 14:33
--- NOTE | 2025-05-13 17:47 | DVHPNRES ---
Progress Note Date Seen: May 13, 2025 Resident Creating Document: TAMI LOPEZ Medical Necessity Reason Pt with a Central, PICC or Fol: No Objective vital signs Vital Sign Date Time Temp Pulse Resp B/P (MAP) Pulse Ox O2 Delivery O2 Flow Rate FiO2 05/13/25 17:35 97.8 104 18 111/69 97.8 05/13/25 16:47 92 05/13/25 08:00 Room Air* 0 21 Total Intake and Output 05/12/25 05/12/25 05/13/25 15:00 23:00 07:00 Intake Total 300 ml 690 ml 440 ml Output Total 200 ml 301 ml Balance 300 ml 490 ml 139 ml medications Current Medications Medications Dose Ordered Sig/Bandar Route Start Time Stop Time Status Last Admin Dose Admin Sodium Chloride 10 ml Q8HR IV 05/04/25 22:00 05/13/25 05:17 10 ML Ondansetron HCl 4 mg Q4HP PRN IV 05/04/25 15:00 05/12/25 22:46 4 MG Acetaminophen 650 mg Q6HP PRN PO 05/04/25 15:00 Amlodipine Besylate 5 mg DAILY PO 05/05/25 10:00 05/12/25 10:03 5 MG Atorvastatin Calcium 20 mg HS PO 05/05/25 22:00 05/12/25 22:44 20 MG Ceftriaxone Sodium/Dextrose 50 ml @ 50 mls/hr DAILY@2100 IV 05/04/25 22:30 05/12/25 21:14 50 MLS/HR Linezolid 300 ml @ 150 mls/hr Q12HR IV 05/04/25 22:00 05/13/25 10:52 150 MLS/HR Clopidogrel Bisulfate 75 mg DAILY PO 05/07/25 10:00 05/13/25 10:56 75 MG Aspirin 81 mg DAILY PO 05/07/25 10:00 05/13/25 10:55 81 MG Pantoprazole Sodium 40 mg DAILY@0600 PO 05/08/25 06:00 05/13/25 05:17 40 MG Enoxaparin Sodium 70 mg Q12HR SC 05/08/25 22:00 05/13/25 10:51 70 MG Enteral Nutritional Formula 240 ml TIDWM PO 05/08/25 12:00 05/13/25 08:00 240 ML Ascorbic Acid 500 mg DAILY PO 05/09/25 10:00 05/13/25 10:56 500 MG Zinc Sulfate 220 mg DAILY PO 05/09/25 10:00 05/13/25 10:56 220 MG Sodium Chloride 1,000 ml @ 75 mls/hr [id number] IV 05/10/25 14:30 05/13/25 10:52 75 MLS/HR Examination General Appearance: Alert, Oriented X3, Cooperative, Mild distress HEENT: Atraumatic, Mucous membranes moist/pink Respiratory: Clear to auscultation, Normal air movement, No added sounds Cardiovascular: Regular rate, Normal S1, Normal S2, No murmurs Abdominal/ : Active bowel sounds, Soft, no distention, no tenderness Extremities: No edema, Normal pulses, No tenderness/swelling, Right upper arm 7x7 cm hematoa, left great toe gangrene, surrounding erythema. Skin: No Significant rash, except past surgical scars Neuro: Normal speech, sensorimotor deficits none Psych/Mental Status: Mental status NL, Mood NL Nurse was there as rug cleaning supervisor during examination laboratory and microbiology Laboratory Tests 05/13/25 05:12 Test 05/13/25 05:12 Range/Units Serum Glucose 200 H 74-106 mg/dL Microbiology Date/Time Source Procedure Growth Status 05/06/25 18:49 Blood Blood Culture - Final NO GROWTH AFTER 5 DAYS OF INCUBATION. Complete 05/04/25 22:54 Nose MRSA Screen - Final Complete Problem List/Assessment/Plan Problem List/Assessment/Plan # Severe anemia secondary to GI bleeding? # severe anemia secondary to triple therapy anticoagulation # normocytic hypochromic anemia due to chronic disease? Hemoglobin 6.7 1 unit of packed red blood cell transfused FOBT sent, results pending GI consult if FOBT positive. Continued anticoagulation according to Cardiology recommendations, as the patient is high risk status post left lower extremity stent placement. IVC filter placement is under consideration. # Left Toe Dry Gangrene due to Severe PAD #Severe Peripheral Arterial Disease (PAD) #History of Left Toe Osteomyelitis Likely secondary to critical limb ischemia. Podiatry and vascular surgery consulted. Left SFA stenting completed on 05/06/2025; right lower extremity angiogram was canceled due to patient's elevated creatinine most probably due to contrast,status post left-sided stent placement. Patient with IV fluid until kidney function improves and reschedule right lower extremity angiogram. Cardiology was consulted for rescheduling the procedure outpatient. Keep patient NPO from midnight Continue aspirin, Plavix, and statin therapy. Continue antibiotics: ceftriaxone and linezolid. # Left Lower Extremity DVT (Popliteal Vein) Transition from apixaban to enoxaparin 70 mg BID. Monitor for bleeding and renal function due to CKD. # Chronic Kidney Disease Stage III Monitor renal function and electrolytes. Avoid nephrotoxic agents. Adjust medications as needed for renal dosing. #Hematoma in the right upper arm Doppler of the right upper extremity: No DVT, Anechoic structure with internal lace-like reticulations in the inner upper arm which could reflect a hematoma monitor symptoms of bleeding. # Type 2 Diabetes Mellitus with Peripheral Neuropathy HbA1c 6.7 diet controlled. Monitor for foot ulcers and neuropathic complications. CMP blood glucose ranges 130-140 #Hypertensive Heart Disease with Diastolic Dysfunction and LVH Continue antihypertensives: amlodipine, HCTZ. Monitor BP and symptoms of heart failure. Cardiac diet. #Anemia of chronic disease Likely secondary to CKD. Monitor hemoglobin and iron studies. # Hyperkalemia Treated with Lokelma, albuterol, bicarbonate, and calcium. Monitor potassium levels. #NSTEMI Type 2 (Demand Ischemia) Continue medical management. # Transaminitis Monitor liver enzymes. Review medications for hepatotoxicity. # History of Severe Triple-Vessel CAD (Declined CABG) Continue medical management. Aspirin, Plavix, statin. # History of Testicular Cancer #Hyperlipidemia Continue atorvastatin. Monitor lipid panel. # gait instability: Patient benefitted with physical therapy Goals of care discussions, full code status. More than 29 minute spent with patient. Case discussed with . Plan discussed with: Patient, Other (RN) Plan discussed with: Patient, Other (RN) Dietary Evaluation Review Comments: 1) Advance to [facility] 75gm + cardiac diet 2) Armen 1 pk BID, MVI w/ minerals 1 tab daily, VitC 500mg BID, Zinc sulfate 220mg BID x 10 days 3) Monitor NPO status, lab values, weight trend, and I/O Expected Outcomes/Goals: To meet >75% estimated needs Wound to improve Fu 2-3 days Date of Service: May 13, 2025 Billing Provider: LAUREN MA MD Common Visit Codes: [id number] INP/OBS CARE(HIGH) TAMI LOPEZ May 13, 2025 17:47 LAUREN MA MD May 13, 2025 21:47
[2025-05-13 20:42] LABS: Iron 157.0 ug/dL (65-175)
[2025-05-13 21:11] LABS: Total Iron Binding Capacity 200.0 ug/dL (250-425)
[2025-05-14] VITALS (8 sets, daily range): BP systolic 101–111; BP diastolic 59–69; PULSE 101–117; RESP 16–19; TEMP 97.7–98.9; O2SAT 4–97
[2025-05-14 07:42] LABS: Anion Gap 13 (5-15); Carbon Dioxide 20 mmol/L (20-31); Potassium 3.9 mmol/L (3.5-5.1)
[2025-05-14 07:44] LABS: Calcium 8.7 mg/dL (8.7-10.4); Chloride 96 mmol/L (98-107); Sodium 129 mmol/L (136-145)
[2025-05-14 07:48] LABS: BUN/Creatinine Ratio 9.7 (10.0-20.0); Blood Urea Nitrogen 21 mg/dL (9-23)
[2025-05-14 07:49] LABS: Hematocrit 26.7 % (41.0-53.0); Hemoglobin 9.2 g/dL (13.5-17.5); Mean Corpuscular Hemoglobin 32.9 pg (28.0-32.0); Mean Corpuscular Volume 95.2 fL (80.0-100.0); Nucleated Red Blood Cells % 0.3 %
[2025-05-14 07:50] LABS: Glucose 167 mg/dL (74-106)
--- NOTE | 2025-05-14 11:18 | DVHPN2 ---
Consult Progress Note Subjective Patient reports: No new complaints Objective vital signs Vital Sign Date Time Temp Pulse Resp B/P (MAP) Pulse Ox O2 Delivery O2 Flow Rate FiO2 05/14/25 10:00 101/59 05/14/25 08:32 97.7 107 16 90 97.7 05/13/25 20:00 Room Air* 0 21 Total Intake and Output 05/13/25 05/13/25 05/14/25 15:00 23:00 07:00 Intake Total 600 ml 1120 ml 400 ml Balance 600 ml 1120 ml 400 ml medications Current Medications Medications Dose Ordered Sig/Bandar Route Start Time Stop Time Status Last Admin Dose Admin Sodium Chloride 10 ml Q8HR IV 05/04/25 22:00 05/13/25 22:47 10 ML Ondansetron HCl 4 mg Q4HP PRN IV 05/04/25 15:00 05/12/25 22:46 4 MG Acetaminophen 650 mg Q6HP PRN PO 05/04/25 15:00 Amlodipine Besylate 5 mg DAILY PO 05/05/25 10:00 05/12/25 10:03 5 MG Atorvastatin Calcium 20 mg HS PO 05/05/25 22:00 05/13/25 21:30 20 MG Ceftriaxone Sodium/Dextrose 50 ml @ 50 mls/hr DAILY@2100 IV 05/04/25 22:30 05/13/25 21:30 50 MLS/HR Linezolid 300 ml @ 150 mls/hr Q12HR IV 05/04/25 22:00 05/14/25 10:29 150 MLS/HR Clopidogrel Bisulfate 75 mg DAILY PO 05/07/25 10:00 05/14/25 10:42 75 MG Aspirin 81 mg DAILY PO 05/07/25 10:00 05/14/25 10:41 81 MG Pantoprazole Sodium 40 mg DAILY@0600 PO 05/08/25 06:00 05/13/25 05:17 40 MG Enoxaparin Sodium 70 mg Q12HR SC 05/08/25 22:00 05/14/25 10:42 70 MG Enteral Nutritional Formula 240 ml TIDWM PO 05/08/25 12:00 05/14/25 08:00 240 ML Ascorbic Acid 500 mg DAILY PO 05/09/25 10:00 05/14/25 10:41 500 MG Zinc Sulfate 220 mg DAILY PO 05/09/25 10:00 05/14/25 10:36 220 MG Sodium Chloride 1,000 ml @ 75 mls/hr [id number] IV 05/10/25 14:30 05/14/25 10:37 75 MLS/HR laboratory and microbiology Laboratory Tests 05/14/25 05:54 Test 05/14/25 05:54 Range/Units Serum Glucose 167 H 74-106 mg/dL Problem List/Assessment/Plan Problem List/Assessment/Plan Problem List/Assessment/Plan Severe peripheral arterial disease s/p ASSOCIATE THEATRE PROFESSOR with stenting of left superficial femoral artery Severe triple-vessel coronary artery disease (has declined CABG) NSTEMI likely type II secondary to above Acute anemia Hypertension Dyslipidemia Left popliteal vein DVT AD on chronic kidney disease stage III Obesity Plan/Recommendation (Dr. Ji) Case discussed with Dr. Ji. The patient with severe peripheral arterial disease is status post peripheral angiogram with ASSOCIATE THEATRE PROFESSOR and stenting of left superficial femoral artery. The patient was initiated on Plavix and aspirin therapy postprocedure. The patient was also receiving therapeutic Lovenox given left popliteal DVT. Today, the patient's hemoglobin level dropped down to 6.7 yesterday, requiring a transfusion of one unit of PRBC. Hemoglobin 9.2 today. Per , the patient should have a GI consultation for anticoagulation recommendations. FOBT pending. Further orders per clinical course. Thank you for allowing us to care for this patient. Please call with any questions or concerns. This medical document was created using an electronic medical record system with voice recognition software and computerized dictation system. Although this document has been carefully reviewed, there might still be some phonetic and typographical errors. Occasional wrong-word or ``sound-alike substitutions may have occurred due to the inherent limitations of voice recognition software. These areas are purely typographical due to imperfections of the software programs and do not reflect any compromise in the patient's medical care. Please read the chart carefully and recognize, using context, where these substitutions have occurred. Plan discussed with: Patient Dietary Evaluation Review Comments: 1) [facility] + cardiac diet 2) Armen 1 pk BID, MVI w/ minerals 1 tab daily, VitC 500mg BID, Zinc sulfate 220mg BID x 10 days 3) Monitor NPO status, lab values, weight trend, and I/O Expected Outcomes/Goals: To meet >75% estimated needs Wound to improve Fu 2-3 days Date of Service: May 14, 2025 Billing Provider: BREE CORCORAN Common Visit Codes: [id number] INP/OBS CARE(HIGH) BREE CORCORAN May 14, 2025 11:18
--- NOTE | 2025-05-14 20:58 | DVHPNRES ---
Progress Note Date Seen: May 14, 2025 Resident Creating Document: TAMI LOPEZ Medical Necessity Reason Pt with a Central, PICC or Fol: No Subjective Review of Systems Patient was seen and examined at the bedside. Overnight events were reviewed. The patient reports feeling better than yesterday. He denies any chest pain, shortness of breath, fever, abdominal pain or any other complaints. Objective vital signs Vital Sign Date Time Temp Pulse Resp B/P (MAP) Pulse Ox O2 Delivery O2 Flow Rate FiO2 05/14/25 16:34 97.7 112 16 111/65 (80) 95 97.7 05/14/25 08:00 Room Air* 0 21 Total Intake and Output 05/13/25 05/13/25 05/14/25 15:00 23:00 07:00 Intake Total 600 ml 1120 ml 400 ml Balance 600 ml 1120 ml 400 ml medications Current Medications Medications Dose Ordered Sig/Bandar Route Start Time Stop Time Status Last Admin Dose Admin Sodium Chloride 10 ml Q8HR IV 05/04/25 22:00 05/14/25 13:23 10 ML Ondansetron HCl 4 mg Q4HP PRN IV 05/04/25 15:00 05/12/25 22:46 4 MG Acetaminophen 650 mg Q6HP PRN PO 05/04/25 15:00 Amlodipine Besylate 5 mg DAILY PO 05/05/25 10:00 05/12/25 10:03 5 MG Atorvastatin Calcium 20 mg HS PO 05/05/25 22:00 05/13/25 21:30 20 MG Ceftriaxone Sodium/Dextrose 50 ml @ 50 mls/hr DAILY@2100 IV 05/04/25 22:30 05/14/25 20:44 50 MLS/HR Linezolid 300 ml @ 150 mls/hr Q12HR IV 05/04/25 22:00 05/14/25 10:29 150 MLS/HR Clopidogrel Bisulfate 75 mg DAILY PO 05/07/25 10:00 05/14/25 10:42 75 MG Aspirin 81 mg DAILY PO 05/07/25 10:00 05/14/25 10:41 81 MG Pantoprazole Sodium 40 mg DAILY@0600 PO 05/08/25 06:00 05/13/25 05:17 40 MG Enoxaparin Sodium 70 mg Q12HR SC 05/08/25 22:00 05/14/25 10:42 70 MG Enteral Nutritional Formula 240 ml TIDWM PO 05/08/25 12:00 05/14/25 17:42 240 ML Ascorbic Acid 500 mg DAILY PO 05/09/25 10:00 05/14/25 10:41 500 MG Zinc Sulfate 220 mg DAILY PO 05/09/25 10:00 05/14/25 10:36 220 MG Sodium Chloride 1,000 ml @ 75 mls/hr [id number] IV 05/10/25 14:30 05/14/25 10:37 75 MLS/HR Examination General Appearance: Alert, Oriented X3, Cooperative, Mild distress HEENT: Atraumatic, Mucous membranes moist/pink Respiratory: Clear to auscultation, Normal air movement, No added sounds Cardiovascular: Regular rate, Normal S1, Normal S2, No murmurs Abdominal/ : Active bowel sounds, Soft, no distention, no tenderness Extremities: No edema, Normal pulses, No tenderness/swelling, Right upper arm 7x7 cm hematoa, left great toe gangrene, surrounding erythema. Skin: No Significant rash, except past surgical scars Neuro: Normal speech, sensorimotor deficits none Psych/Mental Status: Mental status NL, Mood NL Nurse was there as ore storage drier during examination laboratory and microbiology Laboratory Tests 05/14/25 05:54 Test 05/14/25 05:54 Range/Units Serum Glucose 167 H 74-106 mg/dL Microbiology Date/Time Source Procedure Growth Status 05/06/25 18:49 Blood Blood Culture - Final NO GROWTH AFTER 5 DAYS OF INCUBATION. Complete 05/04/25 22:54 Nose MRSA Screen - Final Complete Labs and/or images reviewed: Labs reviewed by me, Image(s) reviewed by me Problem List/Assessment/Plan Problem List/Assessment/Plan # Severe anemia secondary to GI bleeding? # severe anemia secondary to triple therapy anticoagulation # normocytic hypochromic anemia due to chronic disease? Hemoglobin 6.7 1 unit of packed red blood cell transfused FOBT sent, results pending GI consult if FOBT positive. Continued anticoagulation according to Cardiology recommendations, as the patient is high risk status post left lower extremity stent placement. IVC filter placement is under consideration. # Left Toe Dry Gangrene due to Severe PAD #Severe Peripheral Arterial Disease (PAD) #History of Left Toe Osteomyelitis Likely secondary to critical limb ischemia. Podiatry and vascular surgery consulted. Left SFA stenting completed on 05/06/2025; right lower extremity angiogram was canceled due to patient's elevated creatinine most probably due to contrast,status post left-sided stent placement. Patient with IV fluid until kidney function improves and reschedule right lower extremity angiogram. Cardiology was consulted for rescheduling the procedure outpatient. Keep patient NPO from midnight Continue aspirin, Plavix, and statin therapy. Continue antibiotics: ceftriaxone and linezolid. # Left Lower Extremity DVT (Popliteal Vein) Transition from apixaban to enoxaparin 70 mg BID. Monitor for bleeding and renal function due to CKD. # Chronic Kidney Disease Stage III Monitor renal function and electrolytes. Avoid nephrotoxic agents. Adjust medications as needed for renal dosing. #Hematoma in the right upper arm Doppler of the right upper extremity: No DVT, Anechoic structure with internal lace-like reticulations in the inner upper arm which could reflect a hematoma monitor symptoms of bleeding. # Type 2 Diabetes Mellitus with Peripheral Neuropathy HbA1c 6.7 diet controlled. Monitor for foot ulcers and neuropathic complications. CMP blood glucose ranges 130-140 #Hypertensive Heart Disease with Diastolic Dysfunction and LVH Continue antihypertensives: amlodipine, HCTZ. Monitor BP and symptoms of heart failure. Cardiac diet. #Anemia of chronic disease Likely secondary to CKD. Monitor hemoglobin and iron studies. # Hyperkalemia Treated with Lokelma, albuterol, bicarbonate, and calcium. Monitor potassium levels. #NSTEMI Type 2 (Demand Ischemia) Continue medical management. # Transaminitis Monitor liver enzymes. Review medications for hepatotoxicity. # History of Severe Triple-Vessel CAD (Declined CABG) Continue medical management. Aspirin, Plavix, statin. # History of Testicular Cancer #Hyperlipidemia Continue atorvastatin. Monitor lipid panel. # gait instability: Patient benefitted with physical therapy Goals of care discussions, full code status. More than 29 minute spent with patient. Case discussed with . Plan discussed with: Patient, Other (RN) Plan discussed with: Patient, Other Dietary Evaluation Review Comments: 1) Advance to [facility] 75gm + cardiac diet 2) Armen 1 pk BID, MVI w/ minerals 1 tab daily, VitC 500mg BID, Zinc sulfate 220mg BID x 10 days 3) Monitor NPO status, lab values, weight trend, and I/O Expected Outcomes/Goals: To meet >75% estimated needs Wound to improve Fu 2-3 days Date of Service: May 14, 2025 Billing Provider: LAUREN MA MD Common Visit Codes: [id number] INP/OBS CARE(HIGH) TAMI LOPEZ RESIDENT May 14, 2025 20:58 DANA MERCADO RESIDENT May 15, 2025 23:42 LAUREN MA MD May 20, 2025 21:46
[2025-05-15] VITALS (8 sets, daily range): BP systolic 100–106; BP diastolic 52–70; PULSE 54–111; RESP 16–18; TEMP 97.7–98.9; O2SAT 90–92
[2025-05-15 07:46] LABS: Hematocrit 26.4 % (41.0-53.0); Hemoglobin 9.0 g/dL (13.5-17.5); Mean Corpuscular Hemoglobin 33.1 pg (28.0-32.0); Mean Corpuscular Volume 96.9 fL (80.0-100.0); Nucleated Red Blood Cells % 0.3 %
[2025-05-15 07:57] LABS: Anion Gap 14 (5-15); Calcium 8.8 mg/dL (8.7-10.4); Potassium 3.7 mmol/L (3.5-5.1)
[2025-05-15 08:03] LABS: BUN/Creatinine Ratio 10.9 (10.0-20.0); Blood Urea Nitrogen 24 mg/dL (9-23); Carbon Dioxide 19 mmol/L (20-31); Chloride 97 mmol/L (98-107); Glucose 167 mg/dL (74-106); Sodium 130 mmol/L (136-145)
--- NOTE | 2025-05-15 10:44 | DVHPN2 ---
Consult Progress Note Subjective Patient reports: No new complaints Objective vital signs Vital Sign Date Time Temp Pulse Resp B/P (MAP) Pulse Ox O2 Delivery O2 Flow Rate FiO2 05/15/25 09:57 106/70 05/15/25 08:51 97.7 111 16 90 97.7 05/15/25 08:00 Room Air* 0 21 Total Intake and Output 05/14/25 05/14/25 05/15/25 15:00 23:00 07:00 Intake Total 300 ml 450 ml 320 ml Output Total 600 ml Balance 300 ml -150 ml 320 ml medications Current Medications Medications Dose Ordered Sig/Bandar Route Start Time Stop Time Status Last Admin Dose Admin Sodium Chloride 10 ml Q8HR IV 05/04/25 22:00 05/15/25 05:28 Ondansetron HCl 4 mg Q4HP PRN IV 05/04/25 15:00 05/12/25 22:46 Acetaminophen 650 mg Q6HP PRN PO 05/04/25 15:00 Amlodipine Besylate 5 mg DAILY PO 05/05/25 10:00 05/15/25 09:57 Atorvastatin Calcium 20 mg HS PO 05/05/25 22:00 05/14/25 22:08 Ceftriaxone Sodium/Dextrose 50 ml @ 50 mls/hr DAILY@2100 IV 05/04/25 22:30 05/14/25 20:44 Linezolid 300 ml @ 150 mls/hr Q12HR IV 05/04/25 22:00 05/15/25 09:56 Clopidogrel Bisulfate 75 mg DAILY PO 05/07/25 10:00 05/15/25 09:56 Aspirin 81 mg DAILY PO 05/07/25 10:00 05/15/25 09:56 Pantoprazole Sodium 40 mg DAILY@0600 PO 05/08/25 06:00 05/15/25 06:00 Enoxaparin Sodium 70 mg Q12HR SC 05/08/25 22:00 05/15/25 09:56 Enteral Nutritional Formula 240 ml TIDWM PO 05/08/25 12:00 05/15/25 08:00 Ascorbic Acid 500 mg DAILY PO 05/09/25 10:00 05/15/25 09:56 Zinc Sulfate 220 mg DAILY PO 05/09/25 10:00 05/15/25 09:56 Sodium Chloride 1,000 ml @ 75 mls/hr [id number] IV 05/10/25 14:30 05/14/25 22:18 laboratory and microbiology Laboratory Tests 05/15/25 06:05 Test 05/15/25 06:05 Range/Units Serum Glucose 167 H 74-106 mg/dL Problem List/Assessment/Plan Problem List/Assessment/Plan Problem List/Assessment/Plan Severe peripheral arterial disease s/p CHAIR INSPECTOR with stenting of left superficial femoral artery Severe triple-vessel coronary artery disease (has declined CABG) NSTEMI likely type II secondary to above Acute anemia Hypertension Dyslipidemia Left popliteal vein DVT AD on chronic kidney disease stage III Obesity Plan/Recommendation (Dr. Ji) Case discussed with Dr. Ji. The patient with severe peripheral arterial disease is status post peripheral angiogram with CHAIR INSPECTOR and stenting of left superficial femoral artery. The patient was initiated on Plavix and aspirin therapy postprocedure. The patient was also receiving therapeutic Lovenox given left popliteal DVT. Today, the patient's hemoglobin level dropped down to 6.7 requiring a transfusion of one unit of PRBC. Hemoglobin up to 9.2, continue trending/monitoring. Per , the patient should have a GI consultation for anticoagulation recommendations. FOBT pnegative. No overt signs of bleeding. Continue monitoring on anticoagulation. Further orders per clinical course. Thank you for allowing us to care for this patient. Please call with any questions or concerns. This medical document was created using an electronic medical record system with voice recognition software and computerized dictation system. Although this document has been carefully reviewed, there might still be some phonetic and typographical errors. Occasional wrong-word or ``sound-alike substitutions may have occurred due to the inherent limitations of voice recognition software. These areas are purely typographical due to imperfections of the software programs and do not reflect any compromise in the patient's medical care. Please read the chart carefully and recognize, using context, where these substitutions have occurred. Plan discussed with: Patient Dietary Evaluation Review Comments: 1) Advance to [facility] 75gm + cardiac diet 2) Armen 1 pk BID, MVI w/ minerals 1 tab daily, VitC 500mg BID, Zinc sulfate 220mg BID x 10 days 3) Monitor NPO status, lab values, weight trend, and I/O Expected Outcomes/Goals: To meet >75% estimated needs Wound to improve Fu 2-3 days Date of Service: May 15, 2025 Billing Provider: BREE CORCORAN Common Visit Codes: [id number] INP/OBS CARE(HIGH) BREE CORCORAN May 15, 2025 10:44
--- NOTE | 2025-05-15 20:15 | DVHPNRES ---
Progress Note Date Seen: May 15, 2025 Resident Creating Document: ANGELA ANGEL RESIDENT Medical Necessity Reason Pt with a Central, PICC or Fol: No Subjective Review of Systems Benita Joy 74-year-old male with previous history of triple-vessel CAD, testicular cancer, CKD on stage III, type 2 diabetes mellitus with peripheral neuropathy, hyperlipidemia, hypertension, peripheral artery disease, left lower extremity DVT on Eliquis and home hospice care presented to the ER with a history of left leg purple discoloration since last 3 days. He denies any chest pain, shortness of breath, abdominal pain or any other complaints today. The patient was admitted at [facility] in February, during the time the patient underwent debridements of the right foot. The patient is not taking Eliquis due to bruising, his home health hospice nurse advised him to stop Eliquis. We restarted him on Eliquis today. Past medical history:triple-vessel CAD, testicular cancer, CKD on stage III, type 2 diabetes mellitus with peripheral neuropathy, hyperlipidemia, hypertension, peripheral artery disease, left lower extremity DVT Past surgical history: Tonsillectomy, debridement of necrotic right toe. Allergies: No known allergy Home medications: Apixaban, linezolid, pantoprazole, atorvastatin, carvedilol, tamsulosin, amlodipine, aspirin, hydrocodone acetaminophen, rifampin Smoking history: None Alcohol: Occasionally Drugs: Denies PCP: Dr. Avendano Code status: Full code Patient seen and evaluated in bedside today. Patient denies any acute symptoms like chest pain, abdominal pain, dysuria, any acute changes in lower extremity. Vascular consult appreciated. Hemoglobin stable today hemoglobin level 9.0, a ctive signs symptoms of bleeding. Objective vital signs Vital Sign Date Time Temp Pulse Resp B/P (MAP) Pulse Ox O2 Delivery O2 Flow Rate FiO2 05/15/25 16:31 97.8 109 16 105/65 (78) 90 97.8 05/15/25 08:00 Room Air* 0 21 Total Intake and Output 05/14/25 05/14/25 05/15/25 15:00 23:00 07:00 Intake Total 300 ml 450 ml 320 ml Output Total 600 ml Balance 300 ml -150 ml 320 ml medications Current Medications Medications Dose Ordered Sig/Bandar Route Start Time Stop Time Status Last Admin Dose Admin Sodium Chloride 10 ml Q8HR IV 05/04/25 22:00 05/15/25 15:08 10 ML Ondansetron HCl 4 mg Q4HP PRN IV 05/04/25 15:00 05/15/25 15:09 4 MG Acetaminophen 650 mg Q6HP PRN PO 05/04/25 15:00 Amlodipine Besylate 5 mg DAILY PO 05/05/25 10:00 05/15/25 09:57 5 MG Atorvastatin Calcium 20 mg HS PO 05/05/25 22:00 05/14/25 22:08 20 MG Ceftriaxone Sodium/Dextrose 50 ml @ 50 mls/hr DAILY@2100 IV 05/04/25 22:30 05/14/25 20:44 50 MLS/HR Linezolid 300 ml @ 150 mls/hr Q12HR IV 05/04/25 22:00 05/15/25 09:56 150 MLS/HR Clopidogrel Bisulfate 75 mg DAILY PO 05/07/25 10:00 05/15/25 09:56 75 MG Aspirin 81 mg DAILY PO 05/07/25 10:00 05/15/25 09:56 81 MG Pantoprazole Sodium 40 mg DAILY@0600 PO 05/08/25 06:00 05/15/25 06:00 40 MG Enoxaparin Sodium 70 mg Q12HR SC 05/08/25 22:00 05/15/25 09:56 70 MG Enteral Nutritional Formula 240 ml TIDWM PO 05/08/25 12:00 05/15/25 18:23 240 ML Ascorbic Acid 500 mg DAILY PO 05/09/25 10:00 05/15/25 09:56 500 MG Zinc Sulfate 220 mg DAILY PO 05/09/25 10:00 05/15/25 09:56 220 MG Sodium Chloride 1,000 ml @ 75 mls/hr [id number] IV 05/10/25 14:30 05/15/25 15:08 75 MLS/HR Examination General Appearance: Alert, Oriented X3, Cooperative, Mild distress HEENT: Atraumatic, Mucous membranes moist/pink Respiratory: Clear to auscultation, Normal air movement, No added sounds Cardiovascular: Regular rate, Normal S1, Normal S2, No murmurs Abdominal/ : Active bowel sounds, Soft, no distention, no tenderness Extremities: No edema, Right upper arm no visible swelling noted, left great toe gangrene, surrounding erythema. Skin: No Significant rash, except past surgical scars Neuro: Normal speech, sensorimotor impaired bilateral leg Psych/Mental Status: Mental status NL, Mood NL Nurse was there as counseling services director during examination laboratory and microbiology Laboratory Tests 05/15/25 06:05 Test 05/15/25 06:05 Range/Units Serum Glucose 167 H 74-106 mg/dL Microbiology Date/Time Source Procedure Growth Status 05/06/25 18:49 Blood Blood Culture - Final NO GROWTH AFTER 5 DAYS OF INCUBATION. Complete 05/04/25 22:54 Nose MRSA Screen - Final Complete Problem List/Assessment/Plan Problem List/Assessment/Plan # Severe anemia secondary to GI bleeding? # severe anemia secondary to triple therapy anticoagulation # normocytic hypochromic anemia due to chronic disease? Hemoglobin stable now, current hemoglobin 9.0, HCT 26.4 No signs symptoms of active bleeding FOBT sent, results pending GI consult if FOBT positive. Vascular consult appreciated recommended GI consult for anticoagulation therapy. Continued anticoagulation according to Cardiology recommendations, as the patient is high risk status post left lower extremity stent placement. IVC filter placement is under consideration. # Left Toe Dry Gangrene due to Severe PAD #Severe Peripheral Arterial Disease (PAD) #History of Left Toe Osteomyelitis Likely secondary to critical limb ischemia. Podiatry and vascular surgery consulted. Left SFA stenting completed on 05/06/2025; right lower extremity angiogram was canceled due to patient's elevated creatinine most probably due to contrast,status post left-sided stent placement. Patient with IV fluid until kidney function improves and reschedule right lower extremity angiogram. Cardiology was consulted for rescheduling the procedure outpatient. Continue aspirin, Plavix, and statin therapy. Continue antibiotics: ceftriaxone and linezolid. # Left Lower Extremity DVT (Popliteal Vein) Transition from apixaban to enoxaparin 70 mg BID. Monitor for bleeding and renal function due to CKD. # Chronic Kidney Disease Stage III Monitor renal function and electrolytes. Avoid nephrotoxic agents. Adjust medications as needed for renal dosing. #Hematoma in the right upper arm Doppler of the right upper extremity: No DVT, Anechoic structure with internal lace-like reticulations in the inner upper arm which could reflect a hematoma monitor symptoms of bleeding. # Type 2 Diabetes Mellitus with Peripheral Neuropathy HbA1c 6.7 diet controlled. Monitor for foot ulcers and neuropathic complications. CMP blood glucose ranges 130-150 #Hypertensive Heart Disease with Diastolic Dysfunction and LVH Continue antihypertensives: amlodipine, HCTZ. Monitor BP and symptoms of heart failure. Cardiac diet. #Anemia of chronic disease Likely secondary to CKD. Monitor hemoglobin and iron studies. # Hyperkalemia Treated with Lokelma, albuterol, bicarbonate, and calcium. Monitor potassium levels. #NSTEMI Type 2 (Demand Ischemia) Continue medical management. # Transaminitis Monitor liver enzymes. Review medications for hepatotoxicity. # History of Severe Triple-Vessel CAD (Declined CABG) Continue medical management. Aspirin, Plavix, statin. # History of Testicular Cancer #Hyperlipidemia Continue atorvastatin. Monitor lipid panel. # Gait instability: Patient benefitted with physical therapy. Goals of care discussions, full code status. More than 19 minute spent with patient. Case discussed with Dr. York Plan discussed with: Patient, Other (Nurse) Dietary Evaluation Review Comments: 1) Advance to CCHO 75gm + cardiac diet 2) Armen 1 pk BID, MVI w/ minerals 1 tab daily, VitC 500mg BID, Zinc sulfate 220mg BID x 10 days 3) Monitor NPO status, lab values, weight trend, and I/O Expected Outcomes/Goals: To meet >75% estimated needs Wound to improve Fu 2-3 days Date of Service: May 15, 2025 Billing Provider: LAUREN YORK MD Common Visit Codes: [id number] INP/OBS CARE(HIGH) ANGELA ANGEL RESIDENT May 15, 2025 20:15 LAUREN YORK MD May 21, 2025 21:05
[2025-05-16 01:00] VITALS: BP 106/70; PULSE 111; RESP 18; TEMP 97.6; O2SAT 95
[2025-05-16 05:00] VITALS: BP 120/66; PULSE 106; RESP 17; TEMP 98.6; O2SAT 94
[2025-05-16 07:12] LABS: Anion Gap 12 (5-15); Chloride 99 mmol/L (98-107); Hematocrit 24.5 % (41.0-53.0); Hemoglobin 8.5 g/dL (13.5-17.5); Mean Corpuscular Hemoglobin 32.9 pg (28.0-32.0); Mean Corpuscular Volume 95.6 fL (80.0-100.0); Nucleated Red Blood Cells % 0.3 %; Potassium 3.6 mmol/L (3.5-5.1)
[2025-05-16 07:17] LABS: Calcium 8.4 mg/dL (8.7-10.4); Carbon Dioxide 18 mmol/L (20-31); Sodium 129 mmol/L (136-145)
[2025-05-16 07:19] LABS: BUN/Creatinine Ratio 13.6 (10.0-20.0)
[2025-05-16 07:27] LABS: Blood Urea Nitrogen 30 mg/dL (9-23); Glucose 179 mg/dL (74-106)
[2025-05-16 09:14] VITALS: BP 126/90; PULSE 112; RESP 18; TEMP 97.1; O2SAT 96
--- NOTE | 2025-05-16 11:34 | DVHPN2 ---
Consult Progress Note Date Seen: May 16, 2025 Objective vital signs Vital Sign Date Time Temp Pulse Resp B/P (MAP) Pulse Ox O2 Delivery O2 Flow Rate FiO2 05/16/25 09:38 126/90 05/16/25 09:14 97.1 112 18 96 97.1 05/15/25 20:00 Room Air* 0 21 Total Intake and Output 05/15/25 05/15/25 05/16/25 15:00 23:00 07:00 Intake Total 300 ml 450 ml 610 ml Output Total 600 ml 450 ml Balance 300 ml -150 ml 160 ml medications Current Medications Medications Dose Ordered Sig/Bandar Route Start Time Stop Time Status Last Admin Dose Admin Sodium Chloride 10 ml Q8HR IV 05/04/25 22:00 05/16/25 05:12 10 ML Ondansetron HCl 4 mg Q4HP PRN IV 05/04/25 15:00 05/15/25 15:09 4 MG Acetaminophen 650 mg Q6HP PRN PO 05/04/25 15:00 Amlodipine Besylate 5 mg DAILY PO 05/05/25 10:00 05/16/25 09:38 5 MG Atorvastatin Calcium 20 mg HS PO 05/05/25 22:00 05/15/25 22:05 20 MG Clopidogrel Bisulfate 75 mg DAILY PO 05/07/25 10:00 05/16/25 09:38 75 MG Aspirin 81 mg DAILY PO 05/07/25 10:00 05/16/25 09:38 81 MG Pantoprazole Sodium 40 mg DAILY@0600 PO 05/08/25 06:00 05/16/25 05:12 40 MG Enoxaparin Sodium 70 mg Q12HR SC 05/08/25 22:00 05/16/25 09:39 70 MG Enteral Nutritional Formula 240 ml TIDWM PO 05/08/25 12:00 05/16/25 08:33 240 ML Ascorbic Acid 500 mg DAILY PO 05/09/25 10:00 05/16/25 09:39 500 MG Zinc Sulfate 220 mg DAILY PO 05/09/25 10:00 05/16/25 09:37 220 MG Sodium Chloride 1,000 ml @ 75 mls/hr [id number] IV 05/10/25 14:30 05/16/25 03:50 75 MLS/HR Examination: GENERAL:Abnormal (Pale, chronically ill), CVS:Normal, MSK:Abnormal (Bilateral wounds to lower extremities, see wound care pictures), NEURO:Normal laboratory and microbiology Laboratory Tests 05/16/25 06:28 Test 05/16/25 06:28 Range/Units Serum Glucose 179 H 74-106 mg/dL Problem List/Assessment/Plan Problem List/Assessment/Plan Severe peripheral arterial disease s/p [employer] with stenting of left superficial femoral artery Severe triple-vessel coronary artery disease (has declined CABG) NSTEMI likely type II secondary to above AD on chronic kidney disease stage III, likely AGUSTIN Acute anemia status post PRBCs Left popliteal vein DVT Hypertension Dyslipidemia Obesity Plan/Recommendation (Dr. Ji) The patient with severe peripheral arterial disease is status post peripheral angiogram with [employer] and stenting of left superficial femoral artery. The patient was initiated on Plavix and aspirin therapy postprocedure. The patient was also receiving therapeutic Lovenox given left popliteal DVT. Given downtrending H&H requiring PRBCs, discontinue ASA therapy. Not a candidate for stage procedure of the right lower extremity given AD, consider nephrology consultation at this point. Further orders per clinical course. Thank you for allowing us to care for this patient. Please call with any questions or concerns. This medical document was created using an electronic medical record system with voice recognition software and computerized dictation system. Although this document has been carefully reviewed, there might still be some phonetic and typographical errors. Occasional wrong-word or ``sound-alike substitutions may have occurred due to the inherent limitations of voice recognition software. These areas are purely typographical due to imperfections of the software programs and do not reflect any compromise in the patient's medical care. Please read the chart carefully and recognize, using context, where these substitutions have occurred. Plan discussed with: Patient, Other Dietary Evaluation Review Comments: 1) [facility] + cardiac diet 2) Amren 1 pk BID, MVI w/ minerals 1 tab daily, VitC 500mg BID, Zinc sulfate 220mg BID x 10 days 3) Monitor NPO status, lab values, weight trend, and I/O Expected Outcomes/Goals: To meet >75% estimated needs Wound to improve Fu 2-3 days Date of Service: May 16, 2025 Billing Provider: MORGAN KATZ Cardiology Common Codes: [id number] HOSP CARE(High MORGAN KATZ May 16, 2025 11:34
--- NOTE | 2025-05-16 12:35 | DVHPN2 ---
Subjective 74-year-old male with previous history of triple-vessel CAD, testicular cancer, CKD on stage III, type 2 diabetes mellitus with peripheral neuropathy, hyperlipidemia, hypertension, peripheral artery disease, left lower extremity DVT on Eliquis and home hospice care presented to the ER with a history of left leg purple discoloration since last 3 days. The patient was diagnosed with nonocclusive thrombus of the left popliteal vein last week. He denies any chest pain, shortness of breath, abdominal pain or any other complaints today. The patient was admitted at [facility] [place] in February, during the time the patient underwent debridements of the right foot. The patient is not taking Eliquis due to bruising, his home health hospice nurse advised him to stop Eliquis. We restarted him on Eliquis today. Changes from previous H/P or p: No Changes Objective Vitals Vital Signs Date Time Temp Pulse Resp B/P (MAP) Pulse Ox O2 Delivery O2 Flow Rate FiO2 05/16/25 09:38 126/90 05/16/25 09:14 97.1 112 18 96 97.1 05/15/25 20:00 Room Air* 0 21 Intake/Output Intake and Output 05/16/25 07:00 Intake Total 1360 ml Output Total 1050 ml Balance 310 ml Intake Oral 760 ml IV Total 600 ml Output Urine Total 1050 ml # Bowel Movements 2 Exam Dermatological: Skin is dry with mild erythema and some maceration around the wound site No gross deformities noted Mild non-pitting edema present bilaterally Necrosis left foot and distal toes Vascular: Dorsalis pedis and posterior tibial pulses are 1+ bilaterally Capillary refill is under 2 seconds Skin temperature is warm bilaterally Neurologic: Protective sensation is absent on the plantar forefoot bilaterally Monofilament testing reveals decreased sensation in multiple plantar sites Musculoskeletal: Range of motion at the ankle and MTP joints is within normal limits. Strength is 5/5 in all tested muscle groups. Gait is antalgic due to offloading of the affected limb. Medications Current Medications Medications Dose Ordered Sig/Bandar Route Start Time Stop Time Status Last Admin Dose Admin Sodium Chloride 10 ml Q8HR IV 05/04/25 22:00 05/16/25 05:12 10 ML Ondansetron HCl 4 mg Q4HP PRN IV 05/04/25 15:00 05/15/25 15:09 4 MG Acetaminophen 650 mg Q6HP PRN PO 05/04/25 15:00 Amlodipine Besylate 5 mg DAILY PO 05/05/25 10:00 05/16/25 09:38 5 MG Atorvastatin Calcium 20 mg HS PO 05/05/25 22:00 05/15/25 22:05 20 MG Clopidogrel Bisulfate 75 mg DAILY PO 05/07/25 10:00 05/16/25 09:38 75 MG Pantoprazole Sodium 40 mg DAILY@0600 PO 05/08/25 06:00 05/16/25 05:12 40 MG Enoxaparin Sodium 70 mg Q12HR SC 05/08/25 22:00 05/16/25 09:39 70 MG Enteral Nutritional Formula 240 ml TIDWM PO 05/08/25 12:00 05/16/25 08:33 240 ML Ascorbic Acid 500 mg DAILY PO 05/09/25 10:00 05/16/25 09:39 500 MG Zinc Sulfate 220 mg DAILY PO 05/09/25 10:00 05/16/25 09:37 220 MG Sodium Chloride 1,000 ml @ 75 mls/hr [id number] IV 05/10/25 14:30 05/16/25 03:50 75 MLS/HR Laboratory Results Laboratory Tests 05/16/25 06:28 Chemistry Test 05/16/25 06:28 Calcium Level 8.4 mg/dL (8.7-10.4) L Urinalysis Test 05/04/25 14:13 Urine Color Light-yellow (Yellow) Urine Clarity Clear (Clear) Urine pH 6.0 (5.0-9.0) Urine Specific [place] 1.012 (1.001-1.035) Urine Protein Negative (Negative) Urine Ketones Negative (Negative) Urine Blood Negative /uL (Negative) Urine Nitrite Negative (Negative) Urine Bilirubin Negative (Negative) Urine Urobilinogen Normal mg/dL (Negative) Urine Leukocyte Esterase 1+ /uL (Negative) Urine RBC 1 /hpf (0 - 3) Urine Microscopic WBC 9 /HPF (0-3) H Urine Squamous Epithelial Cells Few /hpf (<5) Urine Bacteria None seen /hpf (None Seen) Urine Hyaline Casts Few /lpf (0 - 2) Urine Glucose Normal mg/dL (Normal) Microbiology Microbiology Date/Time Source Procedure Growth Status 05/06/25 18:49 Blood Blood Culture - Final NO GROWTH AFTER 5 DAYS OF INCUBATION. Complete 05/04/25 22:54 Nose MRSA Screen - Final Complete Assessment/Plan Assessment/Plan ASSESSMENT: Patient is a 74 year old seen on the floor for a worsening gangrene PLAN: - The patients chart was reviewed, clinical findings were discussed with the patient, the etiologies of the conditions were discussed in detail, and a treatment plan was agreed to at this time, with both oral and written instructions provided. - reviewed advanced imaging - had angio with stenting performed of the left foot - we will take him for an I and D tomorrow - NPO at midnight - we will get cultures tomorrow All questions were answered and concerns addressed to the patient's satisfaction. The patient was given the phone number to the clinic and was told how to make contact with the clinic should any concerns or questions arise. Patient understands that if any questions or concerns arise prior to the next appointment, we should be contacted immediately. FOLLOW-UP: Continue to follow while inpatient Plan discussed with: Patient My Orders Orders - MENDOZA LEWIS DPM Procedure Category Date Status Time Npo (Nothing By DIET 05/17/25 Transmitted Mouth) Diet Breakfast Obtain Consent For: ORDERS 05/16/25 Verified 12:32 Problem List: (1) Diabetic foot (2) Chronic kidney disease (3) Hyperkalemia (4) Cyclical vomiting (5) Cholelithiasis (6) Hypokalemia (7) Azotemia (8) Urinary retention (9) Generalized weakness (10) Peripheral vascular disease (11) Triple vessel coronary artery disease (12) Foot osteomyelitis, right (13) Near syncope (14) Autonomic dysfunction (15) Eschar of heel (16) Gravely disabled (17) Acute kidney injury superimposed on CKD Visit Coding Podiatry Date of Service if different f: May 16, 2025 Billing Provider: MENDOZA LEWIS DPM Podiatry Common Visit Codes: [id number] INP/OBS CARE(HIGH) MENDOZA LEWIS DPM May 16, 2025 12:35
--- NOTE | 2025-05-16 12:44 | DVHPNRES ---
Progress Note Date Seen: May 16, 2025 Resident Creating Document: TAMI LOPEZ RESIDENT Medical Necessity Reason Pt with a Central, PICC or Fol: No Subjective Review of Systems Benita Joy 74-year-old male with previous history of triple-vessel CAD, testicular cancer, CKD on stage III, type 2 diabetes mellitus with peripheral neuropathy, hyperlipidemia, hypertension, peripheral artery disease, left lower extremity DVT on Eliquis and home hospice care presented to the ER with a history of left leg purple discoloration since last 3 days. He denies any chest pain, shortness of breath, abdominal pain or any other complaints today. The patient was admitted at [facility] in February, during the time the patient underwent debridements of the right foot. The patient is not taking Eliquis due to bruising, his home health hospice nurse advised him to stop Eliquis. Past medical history:triple-vessel CAD, testicular cancer, CKD on stage III, type 2 diabetes mellitus with peripheral neuropathy, hyperlipidemia, hypertension, peripheral artery disease, left lower extremity DVT Past surgical history: Tonsillectomy, debridement of necrotic right toe. Allergies: No known allergy Home medications: Apixaban, linezolid, pantoprazole, atorvastatin, carvedilol, tamsulosin, amlodipine, aspirin, hydrocodone acetaminophen, rifampin Smoking history: None Alcohol: Occasionally Drugs: Denies PCP: Dr. Avendano Patient was seen and examined at bedside. Overnight events were reviewed. The patient denies any chest pain, shortness of breath, abdominal pain, vomiting, pain at the gangrene site or any other complaints today. Objective vital signs Vital Sign Date Time Temp Pulse Resp B/P (MAP) Pulse Ox O2 Delivery O2 Flow Rate FiO2 05/16/25 09:38 126/90 05/16/25 09:14 97.1 112 18 96 97.1 05/15/25 20:00 Room Air* 0 21 Total Intake and Output 05/15/25 05/15/25 05/16/25 15:00 23:00 07:00 Intake Total 300 ml 450 ml 610 ml Output Total 600 ml 450 ml Balance 300 ml -150 ml 160 ml medications Current Medications Medications Dose Ordered Sig/Bandar Route Start Time Stop Time Status Last Admin Dose Admin Sodium Chloride 10 ml Q8HR IV 05/04/25 22:00 05/16/25 05:12 10 ML Ondansetron HCl 4 mg Q4HP PRN IV 05/04/25 15:00 05/15/25 15:09 4 MG Acetaminophen 650 mg Q6HP PRN PO 05/04/25 15:00 Amlodipine Besylate 5 mg DAILY PO 05/05/25 10:00 05/16/25 09:38 5 MG Atorvastatin Calcium 20 mg HS PO 05/05/25 22:00 05/15/25 22:05 20 MG Clopidogrel Bisulfate 75 mg DAILY PO 05/07/25 10:00 05/16/25 09:38 75 MG Pantoprazole Sodium 40 mg DAILY@0600 PO 05/08/25 06:00 05/16/25 05:12 40 MG Enoxaparin Sodium 70 mg Q12HR SC 05/08/25 22:00 05/16/25 09:39 70 MG Enteral Nutritional Formula 240 ml TIDWM PO 05/08/25 12:00 05/16/25 12:42 240 ML Ascorbic Acid 500 mg DAILY PO 05/09/25 10:00 05/16/25 09:39 500 MG Zinc Sulfate 220 mg DAILY PO 05/09/25 10:00 05/16/25 09:37 220 MG Sodium Chloride 1,000 ml @ 75 mls/hr [id number] IV 05/10/25 14:30 05/16/25 03:50 75 MLS/HR Examination Pt is lying on bed General Appearance: Alert, Oriented X3, Cooperative, Mild distress HEENT: Atraumatic, pale conjunctiva, Mucous membranes moist Respiratory: Clear to auscultation, Normal air movement, No added sounds Cardiovascular: Regular rate, Normal S1, Normal S2, No murmurs Abdominal/ : Active bowel sounds, Soft, no distention, no tenderness Extremities: No edema, right-sided pulses diminished compared to left side,Rt upper extremity hematoma resolving, left great toe and 3rd toe gangrene. Skin: No Significant rash, except past surgical scars Neuro: Normal speech, sensorimotor deficits none Psych/Mental Status: Mental status NL, Mood NL Nurse was there as game agent during examination laboratory and microbiology Laboratory Tests 05/16/25 06:28 Test 05/16/25 06:28 Range/Units Serum Glucose 179 H 74-106 mg/dL Microbiology Date/Time Source Procedure Growth Status 05/06/25 18:49 Blood Blood Culture - Final NO GROWTH AFTER 5 DAYS OF INCUBATION. Complete 05/04/25 22:54 Nose MRSA Screen - Final Complete Labs and/or images reviewed: Labs reviewed by me, Image(s) reviewed by me Problem List/Assessment/Plan Problem List/Assessment/Plan # Sepsis secondary to osteomyelitis of left foot # Left Toe Dry Gangrene due to Severe PAD # Severe Peripheral Arterial Disease (PAD) # History of right and left Toe Osteomyelitis Likely secondary to critical limb ischemia. Podiatry on board: Scheduled for I and D on 05/17/2025 Left SFA stenting completed on 05/06/2025; right lower extremity angiogram was canceled due to patient's elevated creatinine most probably due to contrast,status post left-sided stent placement. Patient with IV fluid until kidney function improves and reschedule right lower extremity angiogram. Cardiology was consulted for rescheduling the procedure outpatient. Continue aspirin, Plavix, and statin therapy. Continue antibiotics: ceftriaxone and linezolid. # Severe anemia probably secondary to sepsis - s/p PRBCs transfusions # Severe anemia on triple therapy anticoagulation # Normocytic hypochromic anemia due to chronic disease Hemoglobin stable now No signs symptoms of active bleeding FOBT negative Continued anticoagulation according to Cardiology recommendations, as the patient is high risk status post left lower extremity stent placement. IVC filter placement is under consideration. Patient is on Plavix and enoxaparin, discontinued aspirin per Cardiology recommendations. # Left Lower Extremity DVT (Popliteal Vein) Transition from apixaban to enoxaparin 70 mg BID. Monitor for bleeding and renal function due to CKD. # AD hemodynamically mediated (VMN) on CKD # Chronic Kidney Disease Stage III Monitor renal function and electrolytes. Avoid nephrotoxic agents. Adjust medications as needed for renal dosing. Nephrology was consulted: Optimize medical therapy (indicated bicarbonate pills) ordered kidney ultrasound # Hematoma in the right upper arm Doppler of the right upper extremity: No DVT, Anechoic structure with internal lace-like reticulations in the inner upper arm which could reflect a hematoma monitor symptoms of bleeding. # Type 2 Diabetes Mellitus with Peripheral Neuropathy HbA1c 6.7 diet controlled. Monitor for foot ulcers and neuropathic complications. CMP blood glucose ranges 130-150 #Hypertensive Heart Disease with Diastolic Dysfunction and LVH Continue antihypertensives: amlodipine, HCTZ. Monitor BP and symptoms of heart failure. Cardiac diet. #Anemia of chronic disease Likely secondary to CKD. Monitor hemoglobin and iron studies. # Hyperkalemia Treated with Tamar albuterol, bicarbonate, and calcium. Monitor potassium levels. # NSTEMI Type 2 (Demand Ischemia) Continue medical management. # Transaminitis Monitor liver enzymes. Review medications for hepatotoxicity. # History of Severe Triple-Vessel CAD (Declined CABG) Continue medical management. Aspirin, Plavix, statin. # History of Testicular Cancer # Hyperlipidemia Continue atorvastatin. Monitor lipid panel. # Gait instability: Patient benefitted with physical therapy. Goals of care discussions, full code status. More than 19 minute spent with patient. Case discussed with Dr. York Plan discussed with: Patient, Other My Orders My Orders Orders - TAMI LOPEZ RESIDENT Procedure Category Date Status Time *Dr. Giles Group CONS 05/16/25 Transmitted -[facility] 12:18 Dietary Evaluation Review Comments: 1) [facility] + cardiac diet 2) Armen 1 pk BID, MVI w/ minerals 1 tab daily, VitC 500mg BID, Zinc sulfate 220mg BID x 10 days 3) Monitor NPO status, lab values, weight trend, and I/O Expected Outcomes/Goals: To meet >75% estimated needs Wound to improve Fu 2-3 days Date of Service: May 16, 2025 Billing Provider: LAUREN YORK MD Common Visit Codes: [id number] INP/OBS CARE(HIGH) TAMI LOPEZ RESIDENT May 16, 2025 12:44 DANA MERCADO May 19, 2025 06:41 LAUREN YORK MD May 21, 2025 21:26
[2025-05-16 13:00] VITALS: BP 108/71; PULSE 113; RESP 20; TEMP 96.9; O2SAT 91
--- NOTE | 2025-05-16 14:16 | DVHINCON2 ---
Date of service: May 16, [address] Arteaga Reason for Consultation Acute kidney injury History of Present Illness Patient is a 74-year-old male with past medical history significant for CAD (tripple-vessel), testicular Cancer, CKD, DM (type II w/peripheral neuropathy), DVT, High Lipids, HTN, and PAD is admitted earlier for bluish discoloration of his left leg with generalized weakness. On admission patient found to have elevated BUN creatinine nephrology is consulted for acute kidney injury Past Medical History PAST MEDICAL HISTORY: CAD (tripple-vessel), Cancer, CKF (stage III), DM (type II w/peripheral neuropathy), High Lipids, HTN, PAD, Left lower extremity DVT Past Surgical History Surgical History: Tonsillectomy debridement of necrotic right toe Allergies: Coded Allergies: NO KNOWN ALLERGIES (Unverified , 06/12/21) Home Meds Active Scripts Linezolid (Zyvox) 600 Mg Tab, 600 MG PO BID for 7 Days, #14 TAB Prov:PLACIDO LGUO 04/28/25 Pantoprazole Sodium Sesquihydr (Pantoprazole Sodium) 40 Mg Tab, 40 MG PO DAILY for 30 Days, #30 [facility]25 Nutritional Supplements (Glucerna Carbsteady) 1 Liq Liq, 240 ML PO TIDWM for 30 Days, #30 LIQ [facility]25 Apixaban Base (ELIQUIS) 5 Mg Tab, 5 MG PO BID for 30 Days, #60 TAB [facility] 04/28/25 Atorvastatin Calcium (ATORVASTATIN CALCIUM) 20 Mg Tab, 20 MG PO HS for 30 Days, #30 TAB [facility] 04/28/25 Tamsulosin Hcl (Tamsulosin Hcl) 0.4 Mg Cap, 0.4 MG PO QPM for 30 Days, #30 MG [facility] 04/28/25 Amlodipine Besylate (Amlodipine Besylate) 5 Mg Tab, 1 TAB PO DAILY for 30 Days, #30 TAB [facility] 04/28/25 Aspirin (Aspirin Adult Low Dose) 81 Mg Tab, 1 TAB PO DAILY for 30 Days, #30 TAB Prov:PLACIDO LUGO [facility] 04/28/25 Hydrocodone-Acetaminophen (Hydrocodone Bitartrate/AC 5-325 mg) 1 Tab Tab, 1 TAB PO BID PRN, #40 TAB Prov:ADARSH WILLIS MD 03/04/25 Rifampin (Rifampin) 300 Mg Cap, 300 MG PO BID, #90 CAP Prov:ADARSH WILLIS MD 03/04/25 Reported Medications Carvedilol (Carvedilol) 12.5 Mg Tab, 1 TAB PO BID for 30 Days, #60 05/06/25 Hydrochlorothiazide (Hydrochlorothiazide) 25 Mg Tab, 50 MG PO DAILY for 14 Days, #14 04/11/25 Glipizide (Glipizide) 5 Mg Tab, 1 TAB PO BID for 14 Days, #28 04/11/25 Furosemide (Furosemide) 40 Mg Tab, 1 TAB PO DAILY for 90 Days, #90 02/24/25 Calcium Carbonate-Cholecalcife (Calcium 500-10 mg-Mcg) 1 Chw Chw, 1 TAB PO BID for 30 Days, #60 02/24/25 Family History: Cerebrovascular accident (CVA) G8 MOTHER FH: CABG (coronary artery bypass surgery) G8 FATHER FH: liver disease G8 FATHER Hepatitis C G8 FATHER Review of Systems All 12 item review of systems reviewed with the patient nonsignificant except what is mentioned in the history of present illness H&P Exam Vital Signs/I&O Vital Sign Date Time Temp Pulse Resp B/P (MAP) Pulse Ox O2 Delivery O2 Flow Rate FiO2 05/16/25 13:00 96.9 113 20 108/71 (83) 91 96.9 05/15/25 20:00 Room Air* 0 21 Intake and Output 05/15/25 05/16/25 19:00 07:00 Intake Total 750 ml 610 ml Output Total 600 ml 450 ml Balance 150 ml 160 ml Intake Oral 450 ml 310 ml IV Total 300 ml 300 ml Output Urine Total 600 ml 450 ml # Bowel Movements 1 1 Labs/Diagnostic Data Labs/Diagnostic Data Laboratory Tests Test 05/16/25 06:28 05/15/25 06:05 05/14/25 20:00 05/14/25 05:54 Range/Units White Blood Count 5.4 5.6 7.3 4.4-10.8 10^3/uL Red Blood Count 2.57 L 2.73 L 2.81 L 4.5-5.90 10^6/uL Hemoglobin 8.5 L 9.0 L 9.2 #L 13.5-17.5 g/dL Hematocrit 24.5 L 26.4 L 26.7 #L 41.0-53.0 % Mean Corpuscular Volume 95.6 96.9 95.2 80.0-100.0 fL Mean Corpuscular Hemoglobin 32.9 H 33.1 H 32.9 H 28.0-32.0 pg Mean Corpuscular Hemoglobin Concent 34.5 34.2 34.6 32.0-36.0 g/dL Red Cell Distribution Width 18.1 H 18.9 H 18.5 H 11.8-14.3 % Platelet Count 230 190 206 140-450 10^3/uL Mean Platelet Volume 7.6 7.5 7.6 6.9-10.8 fL Neutrophils (%) (Auto) 75.9 78.7 82.2 H 37.0-80.0 % Lymphocytes (%) (Auto) 13.7 11.0 8.8 L 10.0-50.0 % Monocytes (%) (Auto) 6.0 6.3 6.8 0.0-12.0 % Eosinophils (%) (Auto) 3.6 3.3 1.8 0.0-7.0 % Basophils (%) (Auto) 0.8 0.7 0.4 0.0-2.0 % Neutrophils # (Auto) 4.1 4.4 6.0 1.6-8.6 10 ^3/uL Lymphocytes # (Auto) 0.7 0.6 0.6 0.4-5.4 10 ^3/uL Monocytes # (Auto) 0.3 0.4 0.5 0-1.3 10 ^3/uL Eosinophils # (Auto) 0.2 0.2 0.1 0-0.8 10 ^3/uL Basophils # (Auto) 0 0 0 0-0.2 10 ^3/uL Nucleated Red Blood Cells 0.3 0.3 0.3 % Sodium Level 129 L 130 L 129 L 136-145 mmol/L Potassium Level 3.6 3.7 3.9 3.5-5.1 mmol/L Chloride Level 99 97 L 96 L 98-107 mmol/L Carbon Dioxide Level 18 L 19 L 20 20-31 mmol/L Anion Gap 12 14 13 5-15 Blood Urea Nitrogen 30 H 24 H 21 9-23 mg/dL Creatinine 2.20 H 2.20 H 2.16 H 0.700-1.30 mg/dL Glomerular Filtration Rate Calc 31 31 31 >90 mL/min BUN/Creatinine Ratio 13.6 10.9 9.7 L 10.0-20.0 Serum Glucose 179 H 167 H 167 H 74-106 mg/dL Calcium Level 8.4 L 8.8 8.7 8.7-10.4 mg/dL Stool Occult Blood Negative Negative Stool Occult Blood Sample #3 Negative Test 05/13/25 20:07 05/13/25 11:00 05/13/25 05:12 05/12/25 05:42 Range/Units Iron Level 157 80 65-175 ug/dL Total Iron Binding Capacity 200 L 204 L 250-425 ug/dL Percent Iron Saturation 78.5 H 39.2 20-55 % Reticulocyte Count (auto) 1.57 H 0.5-1.5 % White Blood Count 8.1 # 5.2 # 4.4-10.8 10^3/uL Red Blood Count 2.00 L 2.24 L 4.5-5.90 10^6/uL Hemoglobin 6.7 *L 7.4 L 13.5-17.5 g/dL Hematocrit 19.5 #L 21.7 L 41.0-53.0 % Mean Corpuscular Volume 97.2 96.7 80.0-100.0 fL Mean Corpuscular Hemoglobin 33.4 H 33.1 H 28.0-32.0 pg Mean Corpuscular Hemoglobin Concent 34.3 34.3 32.0-36.0 g/dL Red Cell Distribution Width 19.1 H 19.1 H 11.8-14.3 % Platelet Count 196 227 140-450 10^3/uL Mean Platelet Volume 7.2 6.7 L 6.9-10.8 fL Neutrophils (%) (Auto) 85.3 H 72.1 37.0-80.0 % Lymphocytes (%) (Auto) 6.7 L 15.3 10.0-50.0 % Monocytes (%) (Auto) 7.6 6.0 0.0-12.0 % Eosinophils (%) (Auto) 0.1 6.1 0.0-7.0 % Basophils (%) (Auto) 0.3 0.5 0.0-2.0 % Neutrophils # (Auto) 6.9 3.7 1.6-8.6 10 ^3/uL Lymphocytes # (Auto) 0.5 0.8 0.4-5.4 10 ^3/uL Monocytes # (Auto) 0.6 0.3 0-1.3 10 ^3/uL Eosinophils # (Auto) 0 0.3 0-0.8 10 ^3/uL Basophils # (Auto) 0 0 0-0.2 10 ^3/uL Nucleated Red Blood Cells 0.1 0.2 % Sodium Level 130 L 130 L 136-145 mmol/L Potassium Level 3.9 4.0 3.5-5.1 mmol/L Chloride Level 96 L 96 L 98-107 mmol/L Carbon Dioxide Level 22 23 20-31 mmol/L Anion Gap 12 11 5-15 Blood Urea Nitrogen 24 H 25 H 9-23 mg/dL Creatinine 1.97 H 1.61 H 0.700-1.30 mg/dL Glomerular Filtration Rate Calc 35 45 >90 mL/min BUN/Creatinine Ratio 12.2 15.5 10.0-20.0 Serum Glucose 200 H 160 H 74-106 mg/dL Calcium Level 8.5 L 8.2 L 8.7-10.4 mg/dL Ferritin 1192.5 H 22-322 ng/mL Lactate Dehydrogenase 293 H 120-246 U/L Vitamin B12 Level 461 211-911 pg/mL Folic Acid 7.78 >5.38 ng/mL Test 05/11/25 05:22 05/10/25 05:15 05/09/25 06:30 05/08/25 06:22 Range/Units White Blood Count 4.1 L 5.2 5.2 5.8 4.4-10.8 10^3/uL Red Blood Count 2.17 L 2.51 L 2.39 L 2.38 L 4.5-5.90 10^6/uL Hemoglobin 7.2 L 8.4 L 8.0 L 7.8 L 13.5-17.5 g/dL Hematocrit 20.2 #L 23.7 L 22.4 L 22.2 L 41.0-53.0 % Mean Corpuscular Volume 93.1 94.2 93.8 93.3 80.0-100.0 fL Mean Corpuscular Hemoglobin 33.1 H 33.5 H 33.6 H 32.8 H 28.0-32.0 pg Mean Corpuscular Hemoglobin Concent 35.6 35.6 35.8 35.1 32.0-36.0 g/dL Red Cell Distribution Width 18.4 H 18.3 H 18.3 H 18.1 H 11.8-14.3 % Platelet Count 220 236 227 227 140-450 10^3/uL Mean Platelet Volume 6.6 L 6.7 L 6.6 L 6.8 L 6.9-10.8 fL Neutrophils (%) (Auto) 65.3 72.4 73.1 69.6 37.0-80.0 % Lymphocytes (%) (Auto) 17.5 13.3 11.4 10.5 10.0-50.0 % Monocytes (%) (Auto) 6.4 6.1 7.2 11.3 0.0-12.0 % Eosinophils (%) (Auto) 10.2 H 7.6 H 7.8 H 8.1 H 0.0-7.0 % Basophils (%) (Auto) 0.6 0.6 0.5 0.5 0.0-2.0 % Neutrophils # (Auto) 2.7 3.8 3.8 4.0 1.6-8.6 10 ^3/uL Lymphocytes # (Auto) 0.7 0.7 0.6 0.6 0.4-5.4 10 ^3/uL Monocytes # (Auto) 0.3 0.3 0.4 0.7 0-1.3 10 ^3/uL Eosinophils # (Auto) 0.4 0.4 0.4 0.5 0-0.8 10 ^3/uL Basophils # (Auto) 0 0 0 0 0-0.2 10 ^3/uL Nucleated Red Blood Cells 0.0 0.4 0.1 0.1 % Sodium Level 132 L 132 L 132 L 132 L 136-145 mmol/L Potassium Level 3.8 3.7 3.7 3.9 3.5-5.1 mmol/L Chloride Level 96 L 93 L 92 L 93 L 98-107 mmol/L Carbon Dioxide Level 26 28 30 30 20-31 mmol/L Anion Gap 10 11 10 9 5-15 Blood Urea Nitrogen 25 H 28 H 25 H 25 H 9-23 mg/dL Creatinine 1.71 H 1.97 H 1.96 H 1.74 H 0.700-1.30 mg/dL Glomerular Filtration Rate Calc 41 35 35 41 >90 mL/min BUN/Creatinine Ratio 14.6 14.2 12.8 14.4 10.0-20.0 Serum Glucose 147 H 186 H 136 H 137 H 74-106 mg/dL Calcium Level 8.2 L 8.6 L 8.9 8.7 8.7-10.4 mg/dL Magnesium Level 1.6 1.6-2.6 mg/dL Test 05/07/25 06:53 05/06/25 07:20 05/05/25 08:00 05/04/25 17:44 Range/Units White Blood Count 5.4 5.9 6.4 4.4-10.8 10^3/uL Red Blood Count 2.44 L 2.45 L 2.48 L 4.5-5.90 10^6/uL Hemoglobin 8.0 L 8.1 L 8.0 #L 13.5-17.5 g/dL Hematocrit 23.0 L 23.2 L 23.6 #L 41.0-53.0 % Mean Corpuscular Volume 94.0 94.8 95.5 80.0-100.0 fL Mean Corpuscular Hemoglobin 32.9 H 33.1 H 32.4 H 28.0-32.0 pg Mean Corpuscular Hemoglobin Concent 35.1 34.9 33.9 32.0-36.0 g/dL Red Cell Distribution Width 18.4 H 18.6 H 18.8 H 11.8-14.3 % Platelet Count 240 229 264 140-450 10^3/uL Mean Platelet Volume 6.6 L 6.6 L 6.5 L 6.9-10.8 fL Neutrophils (%) (Auto) 73.7 69.1 70.2 37.0-80.0 % Lymphocytes (%) (Auto) 6.9 L 11.2 11.9 10.0-50.0 % Monocytes (%) (Auto) 11.0 10.8 8.9 0.0-12.0 % Eosinophils (%) (Auto) 7.9 H 8.2 H 8.7 H 0.0-7.0 % Basophils (%) (Auto) 0.5 0.7 0.3 0.0-2.0 % Neutrophils # (Auto) 4.0 4.0 4.5 1.6-8.6 10 ^3/uL Lymphocytes # (Auto) 0.4 0.7 0.8 0.4-5.4 10 ^3/uL Monocytes # (Auto) 0.6 0.6 0.6 0-1.3 10 ^3/uL Eosinophils # (Auto) 0.4 0.5 0.6 0-0.8 10 ^3/uL Basophils # (Auto) 0 0 0 0-0.2 10 ^3/uL Nucleated Red Blood Cells 0.1 0.0 0.0 % Sodium Level 134 L 138 141 136-145 mmol/L Potassium Level 3.4 L 3.5 3.4 L 3.5-5.1 mmol/L Chloride Level 95 L 98 102 98-107 mmol/L Carbon Dioxide Level 28 30 30 20-31 mmol/L Anion Gap 11 10 9 5-15 Blood Urea Nitrogen 25 H 28 H 29 #H 9-23 mg/dL Creatinine 1.47 H 1.48 H 1.56 H 0.700-1.30 mg/dL Glomerular Filtration Rate Calc 50 49 46 >90 mL/min BUN/Creatinine Ratio 17.0 18.9 18.6 10.0-20.0 Serum Glucose 133 H 136 H 129 H 74-106 mg/dL Calcium Level 8.8 8.9 8.9 8.7-10.4 mg/dL Prothrombin Time 11.7 9.3-11.8 sec Prothrombin Time INR 1.12 0.9-1.15 Activated Partial Thromboplast Time 35.7 H 24.5-34.5 SEC Total Bilirubin 0.4 0.4 0.2-1.0 mg/dL Aspartate Amino Transferase (AST) 20 20 13-40 U/L Alanine Aminotransferase (ALT) 23 27 7-40 U/L Alkaline Phosphatase 132 H 143 H 46-116 U/L Total Protein 7.2 7.1 5.7-8.2 g/dL Albumin 3.4 3.6 3.2-4.8 g/dL Vitamin B12 Level 719 211-911 pg/mL Vitamin D 25-Hydroxy 30.5 30.0-100 ng/mL Test 05/04/25 14:13 05/04/25 12:42 05/04/25 00:00 Range/Units Urine Color Light-yellow Yellow Urine Clarity Clear Clear Urine pH 6.0 5.0-9.0 Urine Specific [place] 1.012 1.001-1.035 Urine Protein Negative Negative Urine Ketones Negative Negative Urine Blood Negative Negative /uL Urine Nitrite Negative Negative Urine Bilirubin Negative Negative Urine Urobilinogen Normal Negative mg/dL Urine Leukocyte Esterase 1+ Negative /uL Urine RBC 1 0 - 3 /hpf Urine Microscopic WBC 9 H 0-3 /HPF Urine Squamous Epithelial Cells Few <5 /hpf Urine Bacteria None seen None Seen /hpf Urine Hyaline Casts Few 0 - 2 /lpf Urine Glucose Normal Normal mg/dL White Blood Count 7.5 # 4.4-10.8 10^3/uL Red Blood Count 3.01 L 4.5-5.90 10^6/uL Hemoglobin 9.9 L 13.5-17.5 g/dL Hematocrit 29.0 L 41.0-53.0 % Mean Corpuscular Volume 96.5 80.0-100.0 fL Mean Corpuscular Hemoglobin 32.8 H 28.0-32.0 pg Mean Corpuscular Hemoglobin Concent 34.0 32.0-36.0 g/dL Red Cell Distribution Width 19.2 H 11.8-14.3 % Platelet Count 290 140-450 10^3/uL Mean Platelet Volume 6.8 L 6.9-10.8 fL Neutrophils (%) (Auto) 78.2 37.0-80.0 % Lymphocytes (%) (Auto) 7.9 L 10.0-50.0 % Monocytes (%) (Auto) 7.6 0.0-12.0 % Eosinophils (%) (Auto) 6.0 0.0-7.0 % Basophils (%) (Auto) 0.3 0.0-2.0 % Neutrophils # (Auto) 5.9 1.6-8.6 10 ^3/uL Lymphocytes # (Auto) 0.6 0.4-5.4 10 ^3/uL Monocytes # (Auto) 0.6 0-1.3 10 ^3/uL Eosinophils # (Auto) 0.5 0-0.8 10 ^3/uL Basophils # (Auto) 0 0-0.2 10 ^3/uL Nucleated Red Blood Cells 0.1 % Troponin I High Sensitivity 168 *H </=54 ng/L B-Type Natriuretic Peptide 481.02 0-100 pg/mL Sodium Level 139 136-145 mmol/L Potassium Level 5.2 H 3.5-5.1 mmol/L Chloride Level 100 98-107 mmol/L Carbon Dioxide Level 28 20-31 mmol/L Anion Gap 11 5-15 Blood Urea Nitrogen 46 H 9-23 mg/dL Creatinine 1.79 H 0.700-1.30 mg/dL Glomerular Filtration Rate Calc 39 >90 mL/min BUN/Creatinine Ratio 25.7 H 10.0-20.0 Serum Glucose 174 H 74-106 mg/dL Calcium Level 9.2 8.7-10.4 mg/dL Microbiology Date/Time Source Procedure Growth Status 05/06/25 18:49 Blood Blood Culture - Final NO GROWTH AFTER 5 DAYS OF INCUBATION. Complete 05/04/25 22:54 Nose MRSA Screen - Final Complete Assessment Acute kidney injury superimposed Chronic Kidney Disease secondary hemodynamic mediated Gangrene left foot Left lower extremity DVT Diabetes mellitus type 2 Chronic diastolic Congestive heart failure NSTEMI Hyponatremia due to excess H2O Dropping hemoglobin Anemia due to blood loss Metabolic acidosis History of testicular cancer Recommendations Closely monitor fluid and electrolytes Avoid nephrotoxic medications Strict I&Os Check urine electrolytes and protein excretion Check kidney ultrasound Fluid restrictions I agree with diuresis Packed red blood cell transfusion p.r.n. Sodium bicarbonate tablets 650 mg p.o. t.i.d. Cardiology consult Vascular consult We will continue to follow Patient seen and examined by myself. I discussed my plan of care with the patient and primary nurse at the bedside I would like to thank Dr. Arteaga for the consult, will follow Plan discussed with: Patient QUOC QUINONEZ MD May 16, 2025 14:16
--- NOTE | 2025-05-16 15:10 | DVH ---
CLINICAL HISTORY: eboni TECHNIQUE: Complete ultrasound exam of the kidneys and bladder was performed. COMPARISON: US KIDNEY RETROPERITONEUM on DOS: 03/22/25, US RENAL ARTERY DOPPLER on DOS: 03/22/25, US KI DNEY on DOS: 02/23/25, KIDNEY on DOS: 06/13/21 FINDINGS: The right kidney has slightly increased echogenicity and measures 8.6 cm. There is no focal parenchy mal abnormality or evidence for stone. There is no hydronephrosis. The left kidney has increased echogenicity and measures 7.9 cm. There is no focal parenchymal abnor mality or evidence for stone. There is no hydronephrosis. The bladder is not well distended and therefore not well evaluated. IMPRESSION: Small echogenic kidneys, compatible with medical renal disease.
[2025-05-16 15:36] LABS: Uric Acid 7.4 mg/dL (3.7-9.2)
[2025-05-16 15:42] LABS: Urine Budding Yeast MANY /hpf (None Seen); Urine Protein, UAD 1+ (Negative); Urine WBC Clumps PRESENT /hpf (None Seen)
[2025-05-16 15:46] LABS: Magnesium < 0.5 mg/dL (1.6-2.6)
[2025-05-16 15:47] LABS: Protein, Urine 130.0 mg/dL (1-14)
[2025-05-16 17:00] VITALS: BP 101/68; PULSE 121; RESP 18; TEMP 97.7; O2SAT 90
[2025-05-16] MEDS: MAGNESIUM SULFATE 1GM/100ML 100 ML IV SCH (17:43)
[2025-05-16 21:00] VITALS: BP 107/61; PULSE 104; RESP 19; TEMP 97; O2SAT 91
[2025-05-16] MEDS: SODIUM BICARBONATE 650 MG TAB PO SCH (22:01)
[2025-05-16] MEDS: LINEZOLID 600MG/300ML 300 ML IV SCH (22:05)
[2025-05-17] VITALS (7 sets, daily range): BP systolic 96–129; BP diastolic 53–75; PULSE 80–107; RESP 16–18; TEMP 97.1–98.2; O2SAT 95–100
--- NOTE | 2025-05-17 08:29 | DVHPNRES ---
Progress Note Date Seen: May 17, 2025 Resident Creating Document: TAMI LOPEZ RESIDENT Medical Necessity Reason Pt with a Central, PICC or Fol: No Subjective Review of Systems Benita Joy 74-year-old male with previous history of triple-vessel CAD, testicular cancer, CKD on stage III, type 2 diabetes mellitus with peripheral neuropathy, hyperlipidemia, hypertension, peripheral artery disease, left lower extremity DVT on Eliquis and home hospice care presented to the ER with a history of left leg purple discoloration since last 3 days. He denies any chest pain, shortness of breath, abdominal pain or any other complaints today. The patient was admitted at [facility] in February, during the time the patient underwent debridements of the right foot. The patient is not taking Eliquis due to bruising, his home health hospice nurse advised him to stop Eliquis. Past medical history:triple-vessel CAD, testicular cancer, CKD on stage III, type 2 diabetes mellitus with peripheral neuropathy, hyperlipidemia, hypertension, peripheral artery disease, left lower extremity DVT Past surgical history: Tonsillectomy, debridement of necrotic right toe. Allergies: No known allergy Home medications: Apixaban, linezolid, pantoprazole, atorvastatin, carvedilol, tamsulosin, amlodipine, aspirin, hydrocodone acetaminophen, rifampin Smoking history: None Alcohol: Occasionally Drugs: Denies PCP: Dr. Avendano Patient was seen and examined at bedside. Overnight events were reviewed. The patient denies any chest pain, shortness of breath, abdominal pain, vomiting, pain at the gangrene site or any other complaints today. Patient was seen post I and D at bedside, tolerating clear liquid diet, was alert, oriented and conversive. He reports no pain at the surgical site. Objective vital signs Vital Sign Date Time Temp Pulse Resp B/P (MAP) Pulse Ox O2 Delivery O2 Flow Rate FiO2 05/17/25 05:00 97.4 105 18 104/69 (81) 95 97.4 05/16/25 20:00 Nasal Cannula* 3 32 Total Intake and Output 05/16/25 05/16/25 05/17/25 15:00 23:00 07:00 Intake Total 500 ml 300 ml Output Total 200 ml 150 ml Balance 300 ml 150 ml medications Current Medications Medications Dose Ordered Sig/Bandar Route Start Time Stop Time Status Last Admin Dose Admin Sodium Chloride 10 ml Q8HR IV 05/04/25 22:00 05/17/25 06:18 10 ML Ondansetron HCl 4 mg Q4HP PRN IV 05/04/25 15:00 05/15/25 15:09 4 MG Acetaminophen 650 mg Q6HP PRN PO 05/04/25 15:00 Amlodipine Besylate 5 mg DAILY PO 05/05/25 10:00 05/16/25 09:38 5 MG Atorvastatin Calcium 20 mg HS PO 05/05/25 22:00 05/16/25 22:01 20 MG Clopidogrel Bisulfate 75 mg DAILY PO 05/07/25 10:00 05/16/25 09:38 75 MG Pantoprazole Sodium 40 mg DAILY@0600 PO 05/08/25 06:00 05/16/25 05:12 40 MG Enoxaparin Sodium 70 mg Q12HR SC 05/08/25 22:00 05/16/25 22:02 70 MG Enteral Nutritional Formula 240 ml TIDWM PO 05/08/25 12:00 05/16/25 18:31 240 ML Ascorbic Acid 500 mg DAILY PO 05/09/25 10:00 05/16/25 09:39 500 MG Zinc Sulfate 220 mg DAILY PO 05/09/25 10:00 05/16/25 09:37 220 MG Sodium Chloride 1,000 ml @ 75 mls/hr [id number] IV 05/10/25 14:30 05/16/25 03:50 75 MLS/HR Sodium Bicarbonate 650 mg TID PO 05/16/25 22:00 05/16/25 22:01 650 MG Ceftriaxone Sodium 50 ml @ 100 mls/hr DAILY@09 IV 05/17/25 09:00 Linezolid 300 ml @ 150 mls/hr Q12HR IV 05/16/25 22:00 05/16/25 22:05 150 MLS/HR Examination Pt is lying on bed General Appearance: Alert, Oriented X3, Cooperative, Mild distress HEENT: Atraumatic, pale conjunctiva, Mucous membranes moist Respiratory: Clear to auscultation, Normal air movement, No added sounds Cardiovascular: Regular rate, Normal S1, Normal S2, No murmurs Abdominal/ : Active bowel sounds, Soft, no distention, no tenderness Extremities: No edema, right-sided pulses diminished compared to left side,Rt upper extremity hematoma resolving, left feet with dry bandage and wrap. Skin: No Significant rash, except past surgical scars Neuro: Normal speech, sensorimotor deficits none Psych/Mental Status: Mental status NL, Mood NL Nurse was there as risk modeler during examination laboratory and microbiology Laboratory Tests 05/16/25 06:28 Test 05/16/25 06:28 Range/Units Serum Glucose 179 H 74-106 mg/dL Microbiology Date/Time Source Procedure Growth Status 05/06/25 18:49 Blood Blood Culture - Final NO GROWTH AFTER 5 DAYS OF INCUBATION. Complete 05/04/25 22:54 Nose MRSA Screen - Final Complete Labs and/or images reviewed: Labs reviewed by me, Image(s) reviewed by me Problem List/Assessment/Plan Problem List/Assessment/Plan # Sepsis secondary to osteomyelitis of left foot # Left Toe Dry Gangrene due to Severe PAD # Severe Peripheral Arterial Disease (PAD) # History of right and left Toe Osteomyelitis Likely secondary to critical limb ischemia. Podiatry on board: Scheduled for I and D on 05/17/2025 Left SFA stenting completed on 05/06/2025; right lower extremity angiogram was canceled due to patient's elevated creatinine most probably due to contrast,status post left-sided stent placement. Patient with IV fluid until kidney function improves and reschedule right lower extremity angiogram. Cardiology was consulted for rescheduling the procedure outpatient. Continue aspirin, Plavix, and statin therapy. Continue antibiotics: ceftriaxone and linezolid. # Severe anemia probably secondary to sepsis - s/p PRBCs transfusions # Severe anemia in patient on anticoagulation # Normocytic hypochromic anemia due to chronic disease (CKD/sepsis) # Hematoma in the right upper arm # Left Lower Extremity DVT (Popliteal Vein) Hemoglobin stable now No signs symptoms of active bleeding FOBT negative Doppler of the right upper extremity: No DVT, Anechoic structure with internal lace-like reticulations in the inner upper arm which could reflect a hematoma Continued anticoagulation according to Cardiology recommendations, as the patient is high risk status post left lower extremity stent placement. IVC filter placement is under consideration. Patient is on Plavix and enoxaparin, discontinued aspirin per Cardiology recommendations. On enoxaparin 70 mg BID. # AD hemodynamically mediated (VMN) on CKD # Chronic Kidney Disease Stage III Monitor renal function and electrolytes. Avoid nephrotoxic agents. Adjust medications as needed for renal dosing. Nephrology was consulted: Optimize medical therapy (indicated bicarbonate pills) # NSTEMI Type 2 (Demand Ischemia) # History of Severe Triple-Vessel CAD (Declined CABG) Continue medical management. Continue medical management. Patient on enoxaparin and Plavix, discontinue aspirin #Hypertensive Heart Disease with Diastolic Dysfunction and LVH Continue antihypertensives: amlodipine, HCTZ. Monitor BP and symptoms of heart failure. Cardiac diet. # Hyperkalemia Treated with Lokelma, albuterol, bicarbonate, and calcium. Monitor potassium levels. # Transaminitis Monitor liver enzymes. Review medications for hepatotoxicity. # Type 2 Diabetes Mellitus with Peripheral Neuropathy - Controlled (hemoglobin A1c 6.7%) # Hyperlipidemia Diet controlled. Monitor for foot ulcers and neuropathic complications. CMP blood glucose ranges 130-150 Continue atorvastatin. Monitor lipid panel. # History of Testicular Cancer # Gait instability: Patient benefitted with physical therapy. Goals of care discussions, full code status. More than 19 minute spent with patient. Case discussed with Dr. York Plan discussed with: Patient, Other My Orders My Orders Orders - TAMI LOPEZ Procedure Category Date Status Time *Dr. [facility] CONS 05/16/25 Transmitted -[place] 12:18 Ceftriaxone 1gm/50ml PHA 05/17/25 In Process (Rocephin) 09:00 Linezolid 600mg/300ml PHA 05/16/25 In Process (Zyvox) 22:00 Complete Blood Count LAB 05/17/25 Logged 07:49 Comprehensive LAB 05/18/25 Verified Metabolic Panel 04:00 Magnesium LAB 05/17/25 Logged 07:50 Magnesium LAB 05/17/25 Verified 08:27 Dietary Evaluation Review Comments: 1) Advance to [facility] 75gm + cardiac diet 2) Armen 1 pk BID, MVI w/ minerals 1 tab daily, VitC 500mg BID, Zinc sulfate 220mg BID x 10 days 3) Monitor NPO status, lab values, weight trend, and I/O Expected Outcomes/Goals: To meet >75% estimated needs Wound to improve Fu 2-3 days Date of Service: May 17, 2025 Billing Provider: LAUREN YORK MD Common Visit Codes: [id number] INP/OBS CARE(HIGH) TAMI LOPEZ May 17, 2025 08:29 DANA MERCADO May 19, 2025 06:50 LAUREN YORK MD May 21, 2025 21:38
[2025-05-17 09:00] LABS: Hematocrit 23.1 % (41.0-53.0); Hemoglobin 8.0 g/dL (13.5-17.5); Mean Corpuscular Hemoglobin 33.0 pg (28.0-32.0); Mean Corpuscular Volume 95.5 fL (80.0-100.0); Nucleated Red Blood Cells % 0.1 %
--- NOTE | 2025-05-17 09:39 | DVHPN2 ---
Consult Progress Note Date Seen: May 17, 2025 Subjective Review of Systems: CVS:Normal, RESPIRATORY:Normal, NEURO:Normal Objective vital signs Vital Sign Date Time Temp Pulse Resp B/P (MAP) Pulse Ox O2 Delivery O2 Flow Rate FiO2 05/17/25 08:41 97.5 104 16 96/53 (67) 98 97.5 05/16/25 20:00 Nasal Cannula* 3 32 Total Intake and Output 05/16/25 05/16/25 05/17/25 15:00 23:00 07:00 Intake Total 500 ml 300 ml Output Total 200 ml 150 ml Balance 300 ml 150 ml medications Current Medications Medications Dose Ordered Sig/Bandar Route Start Time Stop Time Status Last Admin Dose Admin Sodium Chloride 10 ml Q8HR IV 05/04/25 22:00 05/17/25 06:18 10 ML Ondansetron HCl 4 mg Q4HP PRN IV 05/04/25 15:00 05/15/25 15:09 4 MG Acetaminophen 650 mg Q6HP PRN PO 05/04/25 15:00 Atorvastatin Calcium 20 mg HS PO 05/05/25 22:00 05/16/25 22:01 20 MG Clopidogrel Bisulfate 75 mg DAILY PO 05/07/25 10:00 05/16/25 09:38 75 MG Pantoprazole Sodium 40 mg DAILY@0600 PO 05/08/25 06:00 05/16/25 05:12 40 MG Enoxaparin Sodium 70 mg Q12HR SC 05/08/25 22:00 05/16/25 22:02 70 MG Enteral Nutritional Formula 240 ml TIDWM PO 05/08/25 12:00 05/16/25 18:31 240 ML Ascorbic Acid 500 mg DAILY PO 05/09/25 10:00 05/16/25 09:39 500 MG Zinc Sulfate 220 mg DAILY PO 05/09/25 10:00 05/16/25 09:37 220 MG Sodium Chloride 1,000 ml @ 75 mls/hr [id number] IV 05/10/25 14:30 05/16/25 03:50 75 MLS/HR Sodium Bicarbonate 650 mg TID PO 05/16/25 22:00 05/16/25 22:01 650 MG Ceftriaxone Sodium 50 ml @ 100 mls/hr DAILY@09 IV 05/17/25 09:00 Linezolid 300 ml @ 150 mls/hr Q12HR IV 05/16/25 22:00 05/16/25 22:05 150 MLS/HR Examination: GENERAL:Abnormal (Chronically ill, pale), LUNGS:Abnormal (Diminished), CVS:Normal, NEURO:Normal laboratory and microbiology Laboratory Tests 05/17/25 08:37 Test 05/17/25 08:37 Range/Units Serum Glucose Pending Problem List/Assessment/Plan Problem List/Assessment/Plan Severe peripheral arterial disease s/p HEAD START COORDINATOR with stenting of left superficial femoral artery Severe triple-vessel coronary artery disease (has declined CABG) NSTEMI likely type II secondary to above AD on chronic kidney disease stage III, likely AGUSTIN Acute anemia status post PRBCs Left popliteal vein DVT Hypertension Dyslipidemia Obesity Plan/Recommendation (Dr. Ji) The patient with severe peripheral arterial disease is status post peripheral angiogram with HEAD START COORDINATOR and stenting of left superficial femoral artery. The patient was initiated on Plavix and aspirin therapy post-procedure. The patient was also receiving therapeutic Lovenox given left popliteal DVT. Given downtrending H&H requiring PRBCs, discontinue ASA therapy. Not a candidate for stage procedure of the right lower extremity given AD and severe anemia, continue nephrology recommendations. Kindly notify cardiology of optimal renal function in order to proceed with stage procedure if possible. Recent transthoracic echocardiogram revealed LVEF 50-55% with mild diastolic dysfunction. Cardiology will be on standby and as needed basis. Thank you for allowing us to care for this patient. This medical document was created using an electronic medical record system with voice recognition software and computerized dictation system. Although this document has been carefully reviewed, there might still be some phonetic and typographical errors. Occasional wrong-word or ``sound-alike substitutions may have occurred due to the inherent limitations of voice recognition software. These areas are purely typographical due to imperfections of the software programs and do not reflect any compromise in the patient's medical care. Please read the chart carefully and recognize, using context, where these substitutions have occurred. Plan discussed with: Patient, Other Dietary Evaluation Review Comments: 1) Advance to [facility] 75gm + cardiac diet 2) Armen 1 pk BID, MVI w/ minerals 1 tab daily, VitC 500mg BID, Zinc sulfate 220mg BID x 10 days 3) Monitor NPO status, lab values, weight trend, and I/O Expected Outcomes/Goals: To meet >75% estimated needs Wound to improve Fu 2-3 days Date of Service: May 17, 2025 Billing Provider: MORGAN KATZ Cardiology Common Codes: [id number] HOSP CARE(High MORGAN KATZ May 17, 2025 09:39
[2025-05-17 09:46] LABS: Chloride 99 mmol/L (98-107); Potassium 3.8 mmol/L (3.5-5.1)
[2025-05-17 09:47] LABS: Anion Gap 14 (5-15)
[2025-05-17 09:52] LABS: BUN/Creatinine Ratio 13.7 (10.0-20.0)
[2025-05-17 10:19] LABS: Blood Urea Nitrogen 35 mg/dL (9-23); Calcium 8.4 mg/dL (8.7-10.4); Carbon Dioxide 17 mmol/L (20-31); Glucose 183 mg/dL (74-106); Sodium 130 mmol/L (136-145)
--- NOTE | 2025-05-17 10:51 | DVH ---
INDICATION: Diminished lung sounds TECHNIQUE: Frontal view of the chest. COMPARISON: XY CHEST PORTABLE on DOS: 05/04/25, XY CHEST PORTABLE on DOS: 04/20/25, XY CHEST PORTABLE o n DOS: 04/05/25, CT ANGIO CHEST - PULMONARY on DOS: 03/21/25, XR CHEST 1 VIEW on DOS: 03/21/25 FINDINGS: Bibasilar airspace opacities. The heart and mediastinal contours are grossly unremarkable. There is no evidence of pleural disease. The bony structures of the chest are intact without fracture. IMPRESSION: 1. Bibasilar airspace opacities.
--- NOTE | 2025-05-17 12:19 | DVHPN2 ---
Subjective 74-year-old male with previous history of triple-vessel CAD, testicular cancer, CKD on stage III, type 2 diabetes mellitus with peripheral neuropathy, hyperlipidemia, hypertension, peripheral artery disease, left lower extremity DVT on Eliquis and home hospice care presented to the ER with a history of left leg purple discoloration since last 3 days. The patient was diagnosed with nonocclusive thrombus of the left popliteal vein last week. He denies any chest pain, shortness of breath, abdominal pain or any other complaints today. The patient was admitted at [facility] in February, during the time the patient underwent debridements of the right foot. The patient is not taking Eliquis due to bruising, his home health hospice nurse advised him to stop Eliquis. We restarted him on Eliquis today. Changes from previous H/P or p: No Changes Objective Vitals Vital Signs Date Time Temp Pulse Resp B/P (MAP) Pulse Ox O2 Delivery O2 Flow Rate FiO2 05/17/25 08:41 97.5 104 16 96/53 (67) 98 97.5 05/16/25 20:00 Nasal Cannula* 3 32 Intake/Output Intake and Output 05/17/25 07:00 Intake Total 800 ml Output Total 350 ml Balance 450 ml Intake Oral 400 ml IV Total 400 ml Output Urine Total 350 ml # Voids 1 # Bowel Movements 1 Exam Dermatological: Skin is dry with mild erythema and some maceration around the wound site No gross deformities noted Mild non-pitting edema present bilaterally Necrosis left foot and distal toes Vascular: Dorsalis pedis and posterior tibial pulses are 1+ bilaterally Capillary refill is under 2 seconds Skin temperature is warm bilaterally Neurologic: Protective sensation is absent on the plantar forefoot bilaterally Monofilament testing reveals decreased sensation in multiple plantar sites Musculoskeletal: Range of motion at the ankle and MTP joints is within normal limits. Strength is 5/5 in all tested muscle groups. Gait is antalgic due to offloading of the affected limb. Medications Current Medications Medications Dose Ordered Sig/Bandar Route Start Time Stop Time Status Last Admin Dose Admin Sodium Chloride 10 ml Q8HR IV 05/04/25 22:00 05/17/25 06:18 10 ML Ondansetron HCl 4 mg Q4HP PRN IV 05/04/25 15:00 05/15/25 15:09 4 MG Acetaminophen 650 mg Q6HP PRN PO 05/04/25 15:00 Clopidogrel Bisulfate 75 mg DAILY PO 05/07/25 10:00 05/16/25 09:38 75 MG Pantoprazole Sodium 40 mg DAILY@0600 PO 05/08/25 06:00 05/16/25 05:12 40 MG Enoxaparin Sodium 70 mg Q12HR SC 05/08/25 22:00 05/16/25 22:02 70 MG Enteral Nutritional Formula 240 ml TIDWM PO 05/08/25 12:00 05/16/25 18:31 240 ML Ascorbic Acid 500 mg DAILY PO 05/09/25 10:00 05/16/25 09:39 500 MG Zinc Sulfate 220 mg DAILY PO 05/09/25 10:00 05/16/25 09:37 220 MG Sodium Bicarbonate 650 mg TID PO 05/16/25 22:00 05/16/25 22:01 650 MG Ceftriaxone Sodium 50 ml @ 100 mls/hr DAILY@09 IV 05/17/25 09:00 05/17/25 10:05 100 MLS/HR Linezolid 300 ml @ 150 mls/hr Q12HR IV 05/16/25 22:00 05/17/25 11:42 150 MLS/HR Atorvastatin Calcium 40 mg HS PO 05/17/25 22:00 Furosemide 20 mg DAILY IV 05/18/25 10:00 UNV Laboratory Results Laboratory Tests 05/17/25 08:37 Chemistry Test 05/16/25 15:00 05/17/25 08:37 Magnesium Level < 0.5 mg/dL (1.6-2.6) *L 2.3 mg/dL (1.6-2.6) # Phosphorus Level 4.0 mg/dL (2.4-5.1) Calcium Level 8.4 mg/dL (8.7-10.4) L Cardiac Markers Test 05/16/25 15:00 B-Type Natriuretic Peptide 2815.68 pg/mL (0-100) Urinalysis Test 05/16/25 15:18 Urine Color Light-orange (Yellow) Urine Clarity Ex.turbid (Clear) Urine pH 5.5 (5.0-9.0) Urine Specific [place] 1.019 (1.001-1.035) Urine Protein 1+ (Negative) H Urine Ketones Trace (Negative) Urine Blood Trace /uL (Negative) H Urine Nitrite Negative (Negative) Urine Bilirubin Negative (Negative) Urine Urobilinogen Normal mg/dL (Negative) Urine Leukocyte Esterase 3+ /uL (Negative) Urine RBC 11 /hpf (0 - 3) Urine WBC Clumps Present /hpf (None Seen) Urine Microscopic WBC 1624 /HPF (0-3) H Urine Squamous Epithelial Cells None seen /hpf (<5) Urine Bacteria None seen /hpf (None Seen) Urine Hyaline Casts Few /lpf (0 - 2) Urine Mucus Few (None Seen) Urine Yeast (Budding) Many /hpf (None Seen) Urine Osmolality 359 mOsm/kg Urine Creatinine 122.44 mg/dL (30.0-125.0) Urine Protein/Creatinine Ratio 1.06 Urine Sodium 17 mmol/L (40-220) L Urine Glucose Normal mg/dL (Normal) Urine Total Protein 130.0 mg/dL (1-14) H Microbiology Microbiology Date/Time Source Procedure Growth Status 05/06/25 18:49 Blood Blood Culture - Final NO GROWTH AFTER 5 DAYS OF INCUBATION. Complete 05/04/25 22:54 Nose MRSA Screen - Final Complete Assessment/Plan Assessment/Plan ASSESSMENT: Patient is a 74 year old seen on the floor for a worsening gangrene PLAN: - The patients chart was reviewed, clinical findings were discussed with the patient, the etiologies of the conditions were discussed in detail, and a treatment plan was agreed to at this time, with both oral and written instructions provided. - reviewed advanced imaging - had angio with stenting performed of the left foot - we will take him for an I and D today - NPO since midnight - we will get cultures tomorrow All questions were answered and concerns addressed to the patient's satisfaction. The patient was given the phone number to the clinic and was told how to make contact with the clinic should any concerns or questions arise. Patient understands that if any questions or concerns arise prior to the next appointment, we should be contacted immediately. FOLLOW-UP: Continue to follow while inpatient Plan discussed with: Patient My Orders Orders - MENDOZA LEWIS DPM Procedure Category Date Status Time Npo (Nothing By DIET 05/17/25 Transmitted Mouth) Diet Breakfast Obtain Consent For: ORDERS 05/16/25 Transmitted 12:32 Problem List: (1) Diabetic foot (2) Chronic kidney disease (3) Hyperkalemia (4) Cyclical vomiting (5) Cholelithiasis (6) Hypokalemia (7) Azotemia (8) Urinary retention (9) Generalized weakness (10) Peripheral vascular disease (11) Triple vessel coronary artery disease (12) Foot osteomyelitis, right (13) Near syncope (14) Autonomic dysfunction (15) Eschar of heel (16) Gravely disabled (17) Acute kidney injury superimposed on CKD Visit Coding Podiatry Date of Service if different f: May 17, 2025 Billing Provider: MENDOZA LEWIS DPM Podiatry Common Visit Codes: [id number] INP/OBS CARE(HIGH) MENDOZA LEWIS DPM May 17, 2025 12:19
--- NOTE | 2025-05-17 12:38 | DVHPN2 ---
Progress Note Date Seen: May 17, 2025 Medical Necessity Reason Pt with a Central, PICC or Fol: No Subjective Patient reports: No new complaints Other Systems: Patient seen and examined by myself today in follow-up Objective vital signs Vital Sign Date Time Temp Pulse Resp B/P (MAP) Pulse Ox O2 Delivery O2 Flow Rate FiO2 05/17/25 08:41 97.5 104 16 96/53 (67) 98 97.5 05/16/25 20:00 Nasal Cannula* 3 32 Total Intake and Output 05/16/25 05/16/25 05/17/25 15:00 23:00 07:00 Intake Total 500 ml 300 ml Output Total 200 ml 150 ml Balance 300 ml 150 ml medications Current Medications Medications Dose Ordered Sig/Bandar Route Start Time Stop Time Status Last Admin Dose Admin Sodium Chloride 10 ml Q8HR IV 05/04/25 22:00 05/17/25 06:18 10 ML Ondansetron HCl 4 mg Q4HP PRN IV 05/04/25 15:00 05/15/25 15:09 4 MG Acetaminophen 650 mg Q6HP PRN PO 05/04/25 15:00 Clopidogrel Bisulfate 75 mg DAILY PO 05/07/25 10:00 05/16/25 09:38 75 MG Pantoprazole Sodium 40 mg DAILY@0600 PO 05/08/25 06:00 05/16/25 05:12 40 MG Enoxaparin Sodium 70 mg Q12HR SC 05/08/25 22:00 05/16/25 22:02 70 MG Enteral Nutritional Formula 240 ml TIDWM PO 05/08/25 12:00 05/16/25 18:31 240 ML Ascorbic Acid 500 mg DAILY PO 05/09/25 10:00 05/16/25 09:39 500 MG Zinc Sulfate 220 mg DAILY PO 05/09/25 10:00 05/16/25 09:37 220 MG Sodium Bicarbonate 650 mg TID PO 05/16/25 22:00 05/16/25 22:01 650 MG Ceftriaxone Sodium 50 ml @ 100 mls/hr DAILY@09 IV 05/17/25 09:00 05/17/25 10:05 100 MLS/HR Linezolid 300 ml @ 150 mls/hr Q12HR IV 05/16/25 22:00 05/17/25 11:42 150 MLS/HR Atorvastatin Calcium 40 mg HS PO 05/17/25 22:00 Furosemide 20 mg DAILY IV 05/18/25 10:00 UNV Examination: LUNGS:Normal, CVS:Normal, MSK:Abnormal laboratory and microbiology Laboratory Tests 05/17/25 08:37 Test 05/17/25 08:37 Range/Units Serum Glucose 183 H 74-106 mg/dL Microbiology Date/Time Source Procedure Growth Status 05/06/25 18:49 Blood Blood Culture - Final NO GROWTH AFTER 5 DAYS OF INCUBATION. Complete 05/04/25 22:54 Nose MRSA Screen - Final Complete Problem List/Assessment/Plan Problem List/Assessment/Plan Acute kidney injury superimposed Chronic Kidney Disease secondary hemodynamic mediated Gangrene left foot Left lower extremity DVT Diabetes mellitus type 2 Chronic diastolic Congestive heart failure NSTEMI Hyponatremia due to excess H2O Dropping hemoglobin Anemia due to blood loss Metabolic acidosis History of testicular cancer Recommendations Closely monitor fluid and electrolytes Avoid nephrotoxic medications Strict I&Os kidney ultrasound reported bilateral small echogenic kidneys, no obstruction Fluid restrictions I agree with diuresis Packed red blood cell transfusion p.r.n. Sodium bicarbonate tablets 650 mg p.o. t.i.d. Cardiology consult Vascular consult We will continue to follow Plan discussed with: Patient My Orders My Orders Orders - QUOC QUINONEZ MD Procedure Category Date Status Time Kidney US 05/16/25 Resulted 14:29 Maintain Fluid SALVADOR 05/16/25 In Process Restrictions 14:30 Sodium Bicarb Tab PHA 05/16/25 In Process 22:00 Dietary Evaluation Review Comments: 1) Advance to [facility] 75gm + cardiac diet 2) Armen 1 pk BID, MVI w/ minerals 1 tab daily, VitC 500mg BID, Zinc sulfate 220mg BID x 10 days 3) Monitor NPO status, lab values, weight trend, and I/O Expected Outcomes/Goals: To meet >75% estimated needs Wound to improve Fu 2-3 days QUOC QUINONEZ MD May 17, 2025 12:38
[2025-05-17] MEDS: VANCOMYCIN HCL 1000 MG VL ONE (13:08)
[2025-05-17] MEDS ORDERED: LIDOCAINE 1% INJ PF 5ML AMP ONE (13:10)
[2025-05-17] MEDS ORDERED: ONDANSETRON HCL 4 MG/2 ML VIAL ONE (13:10)
[2025-05-17] MEDS: LIDOCAINE 1% HCL (LOCAL ANESTH.) INJ 20ML MDV ONE (13:23)
--- NOTE | 2025-05-17 13:53 | DVHOP2 ---
Operative Report - 2 Report Details Date: 05/17/25 Preop Diagnosis: 1. Left osteomyelitis 2. Left foot abscess 3. Left foot gangrene 4. 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 These include but are not limited to complications of anesthesia, postoperative infection, incomplete relief of symptoms, recurrence of symptoms, damage to blood vessels, nerves and tendons, deep venous thrombosis, pulmonary embolism and possible need for repeat surgery in the future. Complications: None Estimated Blood Loss: Minimal Fluids: See anesthesia Findings: Consistent with diagnosis Indications for Surgery: Worsening foot wound and gangrene Name of Procedure Performed 1. Left foot I&D to bone (21434) 2. Left foot hallux amp (80006) 3. Left foot fourth toe amp (19686) 4. Left foot 5th toe amp (99347) 5. Left foot hallux bone biopsy () 6. Left foot diabetic flap hallux (40244) 7. Left foot delayed closure (25132) Procedure Details Procedure Details: PRE-PROCEDURE INFORMATION: In the pre-op holding area, the extremity to be oper ated on was clearly marked and the patient verified correct laterality of the marking. The patient was transferred to the OR table and placed in a supine position. A timeout was performed in which identification of the correct patient, procedure, location, and materials was done. The left foot and leg were prepped and draped in normal sterile fashion. DESCRIPTION OF PROCEDURE: Attention was directed to the left where area of fluctuance and gangrene was noted. An incision was made over this area and was deepened through blunt dissection. The incision was deepened to the level of abscess and bone. Care was taken to the dissection to avoid any neurovascular and tendinous structures. The incision was deepened to the bone, and the abscess appeared to be purulent fluid consistent with pus. The cortices of the bone was then removed with rongeur an all necrotic tissue. After the abscess was drained, the area was irrigated with 3 L normal saline using cysto tubing. Deep cultures were then obtained from the wound. It was decided at this point that there was very minimal bleeding and amputation was required. Attention was directed to the left 1st digit where a fish mouth type incision was made about the DIPJ of the digit. This incision enveloped the ulceration that was on the distal tip of the digit and allowed adequate coverage of the remaining bone for flap closure. This incision was deepened to the level of the bone and utilizing sharp dissection, the distal aspect of the digit was removed at the distal interphalangeal joint level. It was clear after resection of the bone that the remaining bone left intact was viable and appeared to have no signs of osteomyelitis or other infection. Utilizing a rongeur and other instrumentation, all devitalized soft tissue was removed from the area. The infected bone that had been amputated was sent for culture and pathology, and a proximal margin was sent as well. Due to the soft tissue deficit, rotational advancement flap was designed medially to laterally and elevated preserving vascularity. A delayed closure was then performed using 2-0 nylon after was deemed appropriate with no longer concern for infection. Attention was directed to the left 4th digit where a fish mouth type incision was made about the DIPJ of the digit. This incision enveloped the ulceration that was on the distal tip of the digit and allowed adequate coverage of the remaining bone for flap closure. This incision was deepened to the level of the bone and utilizing sharp dissection, the distal aspect of the digit was removed at the distal interphalangeal joint level. It was clear after resection of the bone that the remaining bone left intact was viable and appeared to have no signs of osteomyelitis or other infection. Utilizing a rongeur and other inst rumentation, all devitalized soft tissue was removed from the area. The infected bone that had been amputated was sent for culture and pathology, and a proximal margin was sent as well. The wound was irrigated copiously with normal saline using cysto tubing. Attention was directed to the left 5th digit where a fish mouth type incision was made about the DIPJ of the digit. This incision enveloped the ulceration that was on the distal tip of the digit and allowed adequate coverage of the remaining bone for flap closure. This incision was deepened to the level of the bone and utilizing sharp dissection, the distal aspect of the digit was removed at the distal interphalangeal joint level. It was clear after resection of the bone that the remaining bone left intact was viable and appeared to have no signs of osteomyelitis or other infection. Utilizing a rongeur and other instrumentation, all devitalized soft tissue was removed from the area. The infected bone that had been amputated was sent for culture and pathology, and a proximal margin was sent as well. The wound was irrigated copiously with normal saline using cysto tubing. POSTOPERATIVE INFORMATION: The patient tolerated the above noted procedure and anesthesia well and was transferred to the PACU with vital signs stable, and vascular status intact with capillary refill intact to all digits. Deep cultures were taken. Very minimal bleeding during procedure with concerns for osteomyelitis of the digits as well as metatarsal and dusky appearing toes. Pat ient would likely benefit from possible BKA depending on ability to feel flow. Very low chance of healing foot at this point. Specimen: Left hallux 4th and 5th digits Condition Good Disposition Acute Care Facility Visit Coding Podiatry Date of Service if different f: May 17, 2025 Billing Provider: MENDOZA LEWIS DPM Podiatry Common Visit Codes: PROCEDURE ONLY MENDOZA LEWIS DPM May 17, 2025 13:53
[2025-05-17] MEDS ORDERED: NALOXONE HCL 0.4 MG/ML VIAL IV PRN (14:15)
[2025-05-17] MEDS ORDERED: hydrALAZINE HCL 20 MG/ML VL IV PRN (14:15)
[2025-05-17] MEDS ORDERED: fentaNYL CITRATE 100 MCG/2 ML VL IV PRN (14:15)
[2025-05-17] MEDS ORDERED: ONDANSETRON HCL 4 MG/2 ML VIAL IV PRN (14:15)
[2025-05-17] MEDS ORDERED: HYDROmorphone HCL 2 MG/ML VL/or syr IV PRN (14:15)
[2025-05-17] MEDS ORDERED: FLUMAZENIL 0.1 MG/ML INJ 10ML MDV IV PRN (14:15)
[2025-05-17] MEDS: FUROSEMIDE 20 MG/2 ML VIAL IV ONE (15:48)
[2025-05-17] MEDS: ATORVASTATIN 20 MG TAB PO SCH (21:15)
[2025-05-18] VITALS (8 sets, daily range): BP systolic 96–113; BP diastolic 63–75; PULSE 69–115; RESP 16–18; TEMP 96.5–97.6; O2SAT 94–98
[2025-05-18 07:36] LABS: Hematocrit 22.7 % (41.0-53.0); Hemoglobin 7.5 g/dL (13.5-17.5); Mean Corpuscular Hemoglobin 32.2 pg (28.0-32.0); Mean Corpuscular Volume 97.7 fL (80.0-100.0); Nucleated Red Blood Cells % 0.6 %
[2025-05-18 07:57] LABS: Anion Gap 17 (5-15); BUN/Creatinine Ratio 18.3 (10.0-20.0); Chloride 98 mmol/L (98-107); Magnesium 2.2 mg/dL (1.6-2.6); Potassium 4.3 mmol/L (3.5-5.1); Total Protein 5.8 g/dL (5.7-8.2)
[2025-05-18 07:58] LABS: Bilirubin, Total 0.3 mg/dL (0.2-1.0)
[2025-05-18 07:59] LABS: Alanine Aminotransferase 153 U/L (7-40); Albumin 2.8 g/dL (3.2-4.8); Alkaline Phosphatase 157 U/L (46-116); Blood Urea Nitrogen 49 mg/dL (9-23); Calcium 8.1 mg/dL (8.7-10.4); Carbon Dioxide 16 mmol/L (20-31); Glucose 244 mg/dL (74-106); Sodium 131 mmol/L (136-145)
[2025-05-18] MEDS: FUROSEMIDE 20 MG/2 ML VIAL IV SCH (09:44)
--- NOTE | 2025-05-18 12:52 | DVHPN2 ---
Progress Note Date Seen: May 18, 2025 Medical Necessity Reason Pt with a Central, PICC or Fol: No Subjective Patient reports: No new complaints Other Systems: Patient seen and examined by myself today in follow-up Objective vital signs Vital Sign Date Time Temp Pulse Resp B/P (MAP) Pulse Ox O2 Delivery O2 Flow Rate FiO2 05/18/25 09:44 113/75 05/18/25 09:00 97.0 108 16 98 97.0 05/18/25 08:00 Nasal Cannula* 2 28 Total Intake and Output 05/17/25 05/17/25 05/18/25 15:00 23:00 07:00 Intake Total 450 ml 0 ml 600 ml Output Total 200 ml 150 ml Balance 450 ml -200 ml 450 ml medications Current Medications Medications Dose Ordered Sig/Bandar Route Start Time Stop Time Status Last Admin Dose Admin Sodium Chloride 10 ml Q8HR IV 05/04/25 22:00 05/18/25 05:08 10 ML Ondansetron HCl 4 mg Q4HP PRN IV 05/04/25 15:00 05/15/25 15:09 4 MG Acetaminophen 650 mg Q6HP PRN PO 05/04/25 15:00 Clopidogrel Bisulfate 75 mg DAILY PO 05/07/25 10:00 05/18/25 09:43 75 MG Pantoprazole Sodium 40 mg DAILY@0600 PO 05/08/25 06:00 05/16/25 05:12 40 MG Enoxaparin Sodium 70 mg Q12HR SC 05/08/25 22:00 05/18/25 09:43 70 MG Enteral Nutritional Formula 240 ml TIDWM PO 05/08/25 12:00 05/18/25 08:00 240 ML Ascorbic Acid 500 mg DAILY PO 05/09/25 10:00 05/18/25 09:43 500 MG Zinc Sulfate 220 mg DAILY PO 05/09/25 10:00 05/18/25 09:43 220 MG Sodium Bicarbonate 650 mg TID PO 05/16/25 22:00 05/18/25 05:08 650 MG Ceftriaxone Sodium 50 ml @ 100 mls/hr DAILY@09 IV 05/17/25 09:00 05/18/25 09:42 100 MLS/HR Linezolid 300 ml @ 150 mls/hr Q12HR IV 05/16/25 22:00 05/18/25 11:08 150 MLS/HR Atorvastatin Calcium 40 mg HS PO 05/17/25 22:00 05/17/25 21:15 40 MG Furosemide 20 mg DAILY IV 05/18/25 10:00 05/18/25 09:44 20 MG Examination: LUNGS:Normal, CVS:Normal, MSK:Abnormal laboratory and microbiology Laboratory Tests 05/18/25 06:46 Test 05/18/25 06:46 Range/Units Serum Glucose 244 H 74-106 mg/dL Microbiology Date/Time Source Procedure Growth Status 05/17/25 13:29 Foot Left Gram Stain - Final Resulted 05/17/25 13:29 Foot Left Anaerobic Culture - Preliminary Resulted 05/17/25 13:29 Foot Left Aerobic Culture - Preliminary Resulted 05/06/25 18:49 Blood Blood Culture - Final NO GROWTH AFTER 5 DAYS OF INCUBATION. Complete Problem List/Assessment/Plan Problem List/Assessment/Plan Acute kidney injury superimposed Chronic Kidney Disease stage IV secondary hemodynamic mediated Gangrene left foot Left lower extremity DVT Diabetes mellitus type 2 Chronic diastolic Congestive heart failure NSTEMI Hyponatremia due to excess H2O Dropping hemoglobin Anemia due to blood loss Metabolic acidosis History of testicular cancer Cellulitis lower extremity Recommendations Kidney function stable Chronic Kidney Disease stage 4 Increased urine output Strict I&Os kidney ultrasound reported bilateral small echogenic kidneys, no obstruction Fluid restrictions I agree with diuresis Packed red blood cell transfusion p.r.n. Sodium bicarbonate tablets 650 mg p.o. t.i.d. Cardiology consult Vascular consult We will continue to follow Plan discussed with: Patient Dietary Evaluation Review Comments: 1) Advance to CCHO 75gm + cardiac diet 2) Armen 1 pk BID, MVI w/ minerals 1 tab daily, VitC 500mg BID, Zinc sulfate 220mg BID x 10 days 3) Monitor NPO status, lab values, weight trend, and I/O Expected Outcomes/Goals: To meet >75% estimated needs Wound to improve Fu 2-3 days QUOC QUINONEZ MD May 18, 2025 12:52
--- NOTE | 2025-05-18 16:20 | ECG ---
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
--- NOTE | 2025-05-18 21:44 | DVHPNRES ---
Progress Note Date Seen: May 18, 2025 Resident Creating Document: TAMI LOPEZ RESIDENT Medical Necessity Reason Pt with a Central, PICC or Fol: No Subjective Review of Systems Benita Joy 74-year-old male with previous history of triple-vessel CAD, testicular cancer, CKD on stage III, type 2 diabetes mellitus with peripheral neuropathy, hyperlipidemia, hypertension, peripheral artery disease, left lower extremity DVT on Eliquis and home hospice care presented to the ER with a history of left leg purple discoloration since last 3 days. He denies any chest pain, shortness of breath, abdominal pain or any other complaints today. The patient was admitted at [facility] in February, during the time the patient underwent debridements of the right foot. The patient is not taking Eliquis due to bruising, his home health hospice nurse advised him to stop Eliquis. Past medical history:triple-vessel CAD, testicular cancer, CKD on stage III, type 2 diabetes mellitus with peripheral neuropathy, hyperlipidemia, hypertension, peripheral artery disease, left lower extremity DVT Past surgical history: Tonsillectomy, debridement of necrotic right toe. Allergies: No known allergy Home medications: Apixaban, linezolid, pantoprazole, atorvastatin, carvedilol, tamsulosin, amlodipine, aspirin, hydrocodone acetaminophen, rifampin Smoking history: None Alcohol: Occasionally Drugs: Denies PCP: Dr. Avendano Patient was seen and examined at bedside. Overnight events were reviewed. The patient denies any chest pain, shortness of breath, abdominal pain, vomiting, pain at the gangrene site or any other complaints today. Further management of his condition including possible BKA was discussed with the patient. The patient was anxious about the situation. Objective vital signs Vital Sign Date Time Temp Pulse Resp B/P (MAP) Pulse Ox O2 Delivery O2 Flow Rate FiO2 05/18/25 17:00 96.5 106 16 106/69 (81) 95 96.5 05/18/25 08:00 Nasal Cannula* 2 28 Total Intake and Output 05/17/25 05/17/25 05/18/25 15:00 23:00 07:00 Intake Total 450 ml 0 ml 600 ml Output Total 200 ml 150 ml Balance 450 ml -200 ml 450 ml medications Current Medications Medications Dose Ordered Sig/Bandar Route Start Time Stop Time Status Last Admin Dose Admin Sodium Chloride 10 ml Q8HR IV 05/04/25 22:00 05/18/25 14:15 10 ML Ondansetron HCl 4 mg Q4HP PRN IV 05/04/25 15:00 05/15/25 15:09 4 MG Acetaminophen 650 mg Q6HP PRN PO 05/04/25 15:00 Clopidogrel Bisulfate 75 mg DAILY PO 05/07/25 10:00 05/18/25 09:43 75 MG Pantoprazole Sodium 40 mg DAILY@0600 PO 05/08/25 06:00 05/16/25 05:12 40 MG Enoxaparin Sodium 70 mg Q12HR SC 05/08/25 22:00 05/18/25 09:43 70 MG Enteral Nutritional Formula 240 ml TIDWM PO 05/08/25 12:00 05/18/25 18:07 240 ML Ascorbic Acid 500 mg DAILY PO 05/09/25 10:00 05/18/25 09:43 500 MG Zinc Sulfate 220 mg DAILY PO 05/09/25 10:00 05/18/25 09:43 220 MG Sodium Bicarbonate 650 mg TID PO 05/16/25 22:00 05/18/25 14:33 650 MG Ceftriaxone Sodium 50 ml @ 100 mls/hr DAILY@09 IV 05/17/25 09:00 05/18/25 09:42 100 MLS/HR Linezolid 300 ml @ 150 mls/hr Q12HR IV 05/16/25 22:00 05/18/25 11:08 150 MLS/HR Atorvastatin Calcium 40 mg HS PO 05/17/25 22:00 05/17/25 21:15 40 MG Furosemide 40 mg DAILY IV 05/19/25 10:00 Examination Pt is lying on bed General Appearance: Alert, Oriented X3, Cooperative, Mild distress HEENT: Atraumatic, pale conjunctiva, Mucous membranes moist Respiratory: Clear to auscultation, Normal air movement, No added sounds Cardiovascular: Regular rate, Normal S1, Normal S2, No murmurs Abdominal/ : Active bowel sounds, Soft, no distention, no tenderness Extremities: No edema, right-sided pulses diminished compared to left side,Rt upper extremity hematoma resolving, left feet with dry bandage and wrap. Skin: No Significant rash, except past surgical scars Neuro: Normal speech, sensorimotor deficits none Psych/Mental Status: Mental status NL, Mood NL Nurse was there as manager life insurance during examination laboratory and microbiology Laboratory Tests 05/18/25 06:46 Test 05/18/25 06:46 Range/Units Serum Glucose 244 H 74-106 mg/dL Microbiology Date/Time Source Procedure Growth Status 05/17/25 13:29 Foot Left Gram Stain - Final Resulted 05/17/25 13:29 Foot Left Anaerobic Culture - Preliminary Resulted 05/17/25 13:29 Foot Left Aerobic Culture - Preliminary Resulted 05/06/25 18:49 Blood Blood Culture - Final NO GROWTH AFTER 5 DAYS OF INCUBATION. Complete Labs and/or images reviewed: Labs reviewed by me, Image(s) reviewed by me Problem List/Assessment/Plan Problem List/Assessment/Plan # Sepsis secondary to osteomyelitis of left foot - s/p I&D # Left Toe Dry Gangrene due to Severe PAD # Severe Peripheral Arterial Disease (PAD) # History of right and left Toe Osteomyelitis Likely secondary to critical limb ischemia. Podiatry on board: Completed I and D on 05/17/2025 which showed extensive osteomyelitis of left foot. Patient will benefit from [id number] amputation. Planning on PICC line placement to continue IV antibiotics for at least six weeks. Patient refuses at this time [id number] amputation, prefers conservative management and re-evaluation after six weeks. Left SFA stenting completed on 05/06/2025; right lower extremity angiogram was canceled due to patient's elevated creatinine most probably due to contrast,status post left-sided stent placement. Patient with IV fluid until kidney function improves and reschedule right lower extremity angiogram. Cardiology was consulted for rescheduling the procedure outpatient. Continue aspirin, Plavix, and statin therapy. Continue antibiotics: ceftriaxone and linezolid. # Severe anemia probably secondary to sepsis - s/p PRBCs transfusions # Severe anemia in patient on anticoagulation # Normocytic hypochromic anemia due to chronic disease (CKD/sepsis) # Hematoma in the right upper arm # Left Lower Extremity DVT (Popliteal Vein) Hemoglobin stable now No signs symptoms of active bleeding FOBT negative Doppler of the right upper extremity: No DVT, Anechoic structure with internal lace-like reticulations in the inner upper arm which could reflect a hematoma Continued anticoagulation according to Cardiology recommendations, as the patient is high risk status post left lower extremity stent placement. IVC filter placement is under consideration. Patient is on Plavix and enoxaparin, discontinued aspirin per Cardiology recommendations. On enoxaparin 70 mg BID. # AD hemodynamically mediated (VMN) on CKD # Chronic Kidney Disease Stage III Monitor renal function and electrolytes. Avoid nephrotoxic agents. Adjust medications as needed for renal dosing. Nephrology was consulted: Optimize medical therapy (indicated bicarbonate pills), discontinued IV fluids and indicated IV diuretics # NSTEMI Type 2 (Demand Ischemia) # History of Severe Triple-Vessel CAD (Declined CABG) # Acute on chronic diastolic congestive heart failure (HFpEF, LVEF 50-55%) # Hypertensive Heart Disease with Diastolic Dysfunction and LVH Continue medical management. Continue medical management. Patient on enoxaparin and Plavix, discontinue aspirin Currently on IV diuretics (40 mg furosemide daily) Cardiac diet. # Hyperkalemia Treated with Lokelma, albuterol, bicarbonate, and calcium. Monitor potassium levels. # Transaminitis Monitor liver enzymes. Review medications for hepatotoxicity. # Type 2 Diabetes Mellitus with Peripheral Neuropathy - Controlled (hemoglobin A1c 6.7%) # Hyperlipidemia Diet controlled. Monitor for foot ulcers and neuropathic complications. CMP blood glucose ranges 130-150 Continue atorvastatin. Monitor lipid panel. # History of Testicular Cancer # Gait instability: Patient benefitted with physical therapy. Goals of care discussions, full code status. More than 19 minute spent with patient. Case discussed with Dr. York Plan discussed with: Patient, Other (RN) My Orders My Orders Orders - TAMI LOPEZ Procedure Category Date Status Time * Neonatal Intensive Care Unit Nurse CONS 05/18/25 Transmitted Consult Basic Metabolic Panel LAB 05/19/25 Verified 04:00 Complete Blood Count LAB 05/19/25 Verified 04:00 Dietary Evaluation Review Comments: 1) Advance to [facility] 75gm + cardiac diet 2) Armen 1 pk BID, MVI w/ minerals 1 tab daily, VitC 500mg BID, Zinc sulfate 220mg BID x 10 days 3) Monitor NPO status, lab values, weight trend, and I/O Expected Outcomes/Goals: To meet >75% estimated needs Wound to improve Fu 2-3 days Date of Service: May 18, 2025 Billing Provider: LAUREN YORK MD Common Visit Codes: [id number] INP/OBS CARE(HIGH) TAMI LOPEZ May 18, 2025 21:43 DANA MERCADO RESIDENT May 19, 2025 06:55 LAUREN YORK MD May 22, 2025 10:23
[2025-05-19 01:00] VITALS: BP 98/64; PULSE 105; RESP 16; TEMP 97.5; O2SAT 97
[2025-05-19 05:00] VITALS: BP 101/63; PULSE 94; RESP 16; TEMP 94; O2SAT 99
[2025-05-19 05:54] LABS: Anion Gap 17 (5-15); Potassium 4.3 mmol/L (3.5-5.1)
[2025-05-19 06:00] LABS: BUN/Creatinine Ratio 19.5 (10.0-20.0)
[2025-05-19 06:05] LABS: Blood Urea Nitrogen 62 mg/dL (9-23); Calcium 8.4 mg/dL (8.7-10.4); Carbon Dioxide 15 mmol/L (20-31); Chloride 97 mmol/L (98-107); Glucose 215 mg/dL (74-106); Sodium 129 mmol/L (136-145)
[2025-05-19 06:07] LABS: Hemoglobin 7.7 g/dL (13.5-17.5); Mean Corpuscular Volume 99.2 fL (80.0-100.0)
[2025-05-19 06:11] LABS: Hematocrit 22.9 % (41.0-53.0); Mean Corpuscular Hemoglobin 33.2 pg (28.0-32.0); Nucleated Red Blood Cells % 0.2 %
--- NOTE | 2025-05-19 06:25 | ECG ---
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
[2025-05-19 08:57] VITALS: BP 106/70; PULSE 94; RESP 20; TEMP 97.6; O2SAT 99
[2025-05-19 09:00] LABS: Lactic Acid w/Reflex 3.7 mmol/L (0.4-2.0)
--- NOTE | 2025-05-19 09:07 | DVH ---
CHEST RADIOGRAPH Indication: SOB Technique: Frontal view of the chest. Comparison: XY CHEST PORTABLE on DOS: 05/17/25, XY CHEST PORTABLE on DOS: 05/04/25, XY CHEST PORTABLE on DOS: 04/20/25, XY CHEST PORTABLE on DOS: 04/05/25, XR CHEST 1 VIEW on DOS: 03/21/25, XY CHEST PORTABLE on DOS: 05/17/25 FINDINGS: Bibasilar airspace opacities. The heart and mediastinal contours are grossly unremarkable. There is no evidence of pleural disease. The bony structures of the chest are intact without fracture. IMPRESSION: 1. Bibasilar airspace opacities.
[2025-05-19] MEDS: FUROSEMIDE 40 MG/4 ML VIAL IV SCH (09:08)
[2025-05-19 09:22] LABS: Bilirubin, Direct 0.3 mg/dL (<0.3); Bilirubin, Total 0.4 mg/dL (0.2-1.0); Total Protein 6.4 g/dL (5.7-8.2)
[2025-05-19 09:40] LABS: Alanine Aminotransferase 225.0 U/L (7-40); Albumin 3.1 g/dL (3.2-4.8); Alkaline Phosphatase 221.0 U/L (46-116)
[2025-05-19] MEDS ORDERED: FUROSEMIDE 40 MG/4 ML VIAL IV SCH (10:00)
[2025-05-19] MEDS: SODIUM BICARBONATE 650 MG TAB PO SCH (11:44)
[2025-05-19] MEDS: MEROPENEM 500MG IVPB 50 ML IV SCH (13:00)
[2025-05-19 13:26] VITALS: BP 114/69; PULSE 98; RESP 20; TEMP 97.6; O2SAT 95
--- NOTE | 2025-05-19 13:42 | DVHPN2 ---
Subjective 74-year-old male with previous history of triple-vessel CAD, testicular cancer, CKD on stage III, type 2 diabetes mellitus with peripheral neuropathy, hyperlipidemia, hypertension, peripheral artery disease, left lower extremity DVT on Eliquis and home hospice care presented to the ER with a history of left leg purple discoloration since last 3 days. The patient was diagnosed with nonocclusive thrombus of the left popliteal vein last week. He denies any chest pain, shortness of breath, abdominal pain or any other complaints today. The patient was admitted at [facility] in February, during the time the patient underwent debridements of the right foot. The patient is not taking Eliquis due to bruising, his home health hospice nurse advised him to stop Eliquis. We restarted him on Eliquis today. Changes from previous H/P or p: No Changes Objective Vitals Vital Signs Date Time Temp Pulse Resp B/P (MAP) Pulse Ox O2 Delivery O2 Flow Rate FiO2 05/19/25 13:26 97.6 98 20 114/69 (84) 95 97.6 05/19/25 08:00 Nasal Cannula* 2 28 Intake/Output Intake and Output 05/19/25 07:00 Intake Total 1087 ml Output Total 150 ml Balance 937 ml Intake Oral 437 ml IV Total 650 ml Output Urine Total 150 ml # Bowel Movements 1 Exam Dermatological: Skin is dry with mild erythema and some maceration around the wound site No gross deformities noted Mild non-pitting edema present bilaterally Necrosis left foot and distal toes Vascular: Dorsalis pedis and posterior tibial pulses are 1+ bilaterally Capillary refill is under 2 seconds Skin temperature is warm bilaterally Neurologic: Protective sensation is absent on the plantar forefoot bilaterally Monofilament testing reveals decreased sensation in multiple plantar sites Musculoskeletal: Range of motion at the ankle and MTP joints is within normal limits. Strength is 5/5 in all tested muscle groups. Gait is antalgic due to offloading of the affected limb. Medications Current Medications Medications Dose Ordered Sig/Bandar Route Start Time Stop Time Status Last Admin Dose Admin Sodium Chloride 10 ml Q8HR IV 05/04/25 22:00 05/19/25 13:00 10 ML Ondansetron HCl 4 mg Q4HP PRN IV 05/04/25 15:00 05/15/25 15:09 4 MG Acetaminophen 650 mg Q6HP PRN PO 05/04/25 15:00 Clopidogrel Bisulfate 75 mg DAILY PO 05/07/25 10:00 05/19/25 08:59 75 MG Pantoprazole Sodium 40 mg DAILY@0600 PO 05/08/25 06:00 05/19/25 05:33 40 MG Enoxaparin Sodium 70 mg Q12HR SC 05/08/25 22:00 05/19/25 09:32 70 MG Enteral Nutritional Formula 240 ml TIDWM PO 05/08/25 12:00 05/19/25 08:25 240 ML Ascorbic Acid 500 mg DAILY PO 05/09/25 10:00 05/19/25 09:00 500 MG Zinc Sulfate 220 mg DAILY PO 05/09/25 10:00 05/19/25 08:59 220 MG Linezolid 300 ml @ 150 mls/hr Q12HR IV 05/16/25 22:00 05/19/25 10:23 150 MLS/HR Atorvastatin Calcium 40 mg HS PO 05/17/25 22:00 05/18/25 21:36 40 MG Furosemide 40 mg DAILY IV 05/19/25 10:00 05/19/25 09:08 40 MG Meropenem 50 ml @ 17 mls/hr Q12H IV 05/19/25 11:00 05/19/25 13:00 17 MLS/HR Sodium Bicarbonate 650 mg QID PO 05/19/25 10:15 05/19/25 12:58 650 MG Laboratory Results Laboratory Tests 05/19/25 04:40 Chemistry Test 05/19/25 04:40 05/19/25 08:14 Calcium Level 8.4 mg/dL (8.7-10.4) L Albumin 3.1 g/dL (3.2-4.8) L Total Protein 6.4 g/dL (5.7-8.2) LFT Test 05/19/25 08:14 Alanine Aminotransferase (ALT) 225 U/L (7-40) H Alkaline Phosphatase 221 U/L (46-116) H Aspartate Amino Transferase (AST) 163 U/L (13-40) H Direct Bilirubin 0.3 mg/dL (<0.3) Total Bilirubin 0.4 mg/dL (0.2-1.0) Urinalysis Test 05/16/25 15:18 Urine Color Light-orange (Yellow) Urine Clarity Ex.turbid (Clear) Urine pH 5.5 (5.0-9.0) Urine Specific [place] 1.019 (1.001-1.035) Urine Protein 1+ (Negative) H Urine Ketones Trace (Negative) Urine Blood Trace /uL (Negative) H Urine Nitrite Negative (Negative) Urine Bilirubin Negative (Negative) Urine Urobilinogen Normal mg/dL (Negative) Urine Leukocyte Esterase 3+ /uL (Negative) Urine RBC 11 /hpf (0 - 3) Urine WBC Clumps Present /hpf (None Seen) Urine Microscopic WBC 1624 /HPF (0-3) H Urine Squamous Epithelial Cells None seen /hpf (<5) Urine Bacteria None seen /hpf (None Seen) Urine Hyaline Casts Few /lpf (0 - 2) Urine Mucus Few (None Seen) Urine Yeast (Budding) Many /hpf (None Seen) Urine Osmolality 359 mOsm/kg Urine Creatinine 122.44 mg/dL (30.0-125.0) Urine Protein/Creatinine Ratio 1.06 Urine Sodium 17 mmol/L (40-220) L Urine Glucose Normal mg/dL (Normal) Urine Total Protein 130.0 mg/dL (1-14) H Microbiology Microbiology Date/Time Source Procedure Growth Status 05/17/25 13:29 Foot Left Gram Stain - Final Resulted 05/17/25 13:29 Foot Left Anaerobic Culture - Preliminary Resulted 05/17/25 13:29 Foot Left Aerobic Culture - Preliminary Resulted 05/06/25 18:49 Blood Blood Culture - Final NO GROWTH AFTER 5 DAYS OF INCUBATION. Complete Assessment/Plan Assessment/Plan ASSESSMENT: Patient is a 74 year old seen on the floor follow up s/p foot I&D PLAN: - The patients chart was reviewed, clinical findings were discussed with the patient, the etiologies of the conditions were discussed in detail, and a treatment plan was agreed to at this time, with both oral and written instructions provided. - reviewed advanced imaging - reviewed all of the labs and pathology - foot is unsalvageable at this point - patient needs BKA from general surgery - plantar wound will never heal at this point - consult general surgery All questions were answered and concerns addressed to the patient's satisfaction. The patient was given the phone number to the clinic and was told how to make contact with the clinic should any concerns or questions arise. Patient understands that if any questions or concerns arise prior to the next appointment, we should be contacted immediately. FOLLOW-UP: Continue to follow while inpatient Plan discussed with: Patient Problem List: (1) Diabetic foot (2) Chronic kidney disease (3) Hyperkalemia (4) Cyclical vomiting (5) Cholelithiasis (6) Hypokalemia (7) Azotemia (8) Urinary retention (9) Generalized weakness (10) Peripheral vascular disease (11) Triple vessel coronary artery disease (12) Foot osteomyelitis, right (13) Near syncope (14) Autonomic dysfunction (15) Eschar of heel (16) Gravely disabled (17) Acute kidney injury superimposed on CKD Visit Coding Podiatry Date of Service if different f: May 19, 2025 Billing Provider: MENDOZA LEWIS DPM Podiatry Common Visit Codes: [id number] INP/OBS CARE(HIGH) MENDOZA LEWIS DPM May 19, 2025 13:41
--- NOTE | 2025-05-19 14:00 | DVHINCON2 ---
Date of service: May 19, 2025 Family History: Cerebrovascular accident (CVA) G8 MOTHER FH: CABG (coronary artery bypass surgery) G8 FATHER FH: liver disease G8 FATHER Hepatitis C G8 FATHER Allergies: Coded Allergies: NO KNOWN ALLERGIES (Unverified , 06/12/21) Home Meds Active Scripts Linezolid (Zyvox) 600 Mg Tab, 600 MG PO BID for 7 Days, #14 TAB Prov:[facility] 04/28/25 Pantoprazole Sodium Sesquihydr (Pantoprazole Sodium) 40 Mg Tab, 40 MG PO DAILY for 30 Days, #30 TAB Prov:[facility] 04/28/25 Nutritional Supplements (Glucerna Carbsteady) 1 Liq Liq, 240 ML PO TIDWM for 30 Days, #30 LIQ Prov:[facility] 04/28/25 Apixaban Base (ELIQUIS) 5 Mg Tab, 5 MG PO BID for 30 Days, #60 TAB Prov:[facility] 04/28/25 Atorvastatin Calcium (ATORVASTATIN CALCIUM) 20 Mg Tab, 20 MG PO HS for 30 Days, #30 TAB Prov:[facility] 04/28/25 Tamsulosin Hcl (Tamsulosin Hcl) 0.4 Mg Cap, 0.4 MG PO QPM for 30 Days, #30 MG Prov:[facility] 04/28/25 Amlodipine Besylate (Amlodipine Besylate) 5 Mg Tab, 1 TAB PO DAILY for 30 Days, #30 TAB Prov:[facility] 04/28/25 Aspirin (Aspirin Adult Low Dose) 81 Mg Tab, 1 TAB PO DAILY for 30 Days, #30 TAB Prov:[facility] 04/28/25 Hydrocodone-Acetaminophen (Hydrocodone Bitartrate/AC 5-325 mg) 1 Tab Tab, 1 TAB PO BID PRN, #40 TAB Prov:ADARSH WILLIS MD 03/04/25 Rifampin (Rifampin) 300 Mg Cap, 300 MG PO BID, #90 CAP Prov:ADARSH WILLIS MD 03/04/25 Reported Medications Carvedilol (Carvedilol) 12.5 Mg Tab, 1 TAB PO BID for 30 Days, #60 05/06/25 Hydrochlorothiazide (Hydrochlorothiazide) 25 Mg Tab, 50 MG PO DAILY for 14 Days, #14 04/11/25 Glipizide (Glipizide) 5 Mg Tab, 1 TAB PO BID for 14 Days, #28 04/11/25 Furosemide (Furosemide) 40 Mg Tab, 1 TAB PO DAILY for 90 Days, #90 02/24/25 Calcium Carbonate-Cholecalcife (Calcium 500-10 mg-Mcg) 1 Chw Chw, 1 TAB PO BID for 30 Days, #60 02/24/25 Current Medications Current Medications Medications (Trade) Dose Ordered Sig/Bandar Route PRN Reason Start Time Stop Time Status Last Admin Furosemide (Lasix Injection) 40 mg DAILY IV 05/19/25 10:00 05/19/25 06:29 DC Furosemide (Lasix Injection) 40 mg DAILY IV 05/19/25 10:00 05/19/25 09:08 Meropenem 50 ml @ 17 mls/hr Q12H IV 05/19/25 11:00 05/19/25 13:00 Sodium Bicarbonate 650 mg QID PO 05/19/25 10:15 05/19/25 12:58 Vital Signs Vital Signs Date Time Temp Pulse Resp B/P (MAP) Pulse Ox O2 Delivery O2 Flow Rate FiO2 05/19/25 13:26 97.6 98 20 114/69 (84) 95 97.6 05/19/25 08:00 Nasal Cannula* 2 28 Labs/Diagnostic Data Labs Test 05/19/25 12:15 05/19/25 08:14 05/19/25 04:40 05/18/25 06:46 Range/Units Lactic Acid Level 4.7 *H 0.4-2.0 mmol/L Total Bilirubin 0.4 0.2-1.0 mg/dL Direct Bilirubin 0.3 <0.3 mg/dL Aspartate Amino Transferase (AST) 163 H 13-40 U/L Alanine Aminotransferase (ALT) 225 H 7-40 U/L Alkaline Phosphatase 221 H 46-116 U/L Total Protein 6.4 5.7-8.2 g/dL Albumin 3.1 L 3.2-4.8 g/dL White Blood Count 4.8 # 4.4-10.8 10^3/uL Red Blood Count 2.31 L 4.5-5.90 10^6/uL Hemoglobin 7.7 L 13.5-17.5 g/dL Hematocrit 22.9 L 41.0-53.0 % Mean Corpuscular Volume 99.2 80.0-100.0 fL Mean Corpuscular Hemoglobin 33.2 H 28.0-32.0 pg Mean Corpuscular Hemoglobin Concent 33.5 32.0-36.0 g/dL Red Cell Distribution Width 19.0 H 11.8-14.3 % Platelet Count 128 L 140-450 10^3/uL Mean Platelet Volume 8.0 6.9-10.8 fL Neutrophils (%) (Auto) 84.2 H 37.0-80.0 % Lymphocytes (%) (Auto) 11.8 10.0-50.0 % Monocytes (%) (Auto) 3.7 0.0-12.0 % Eosinophils (%) (Auto) 0.1 0.0-7.0 % Basophils (%) (Auto) 0.2 0.0-2.0 % Neutrophils # (Auto) 4.1 1.6-8.6 10 ^3/uL Lymphocytes # (Auto) 0.6 0.4-5.4 10 ^3/uL Monocytes # (Auto) 0.2 0-1.3 10 ^3/uL Eosinophils # (Auto) 0 0-0.8 10 ^3/uL Basophils # (Auto) 0 0-0.2 10 ^3/uL Nucleated Red Blood Cells 0.2 % Sodium Level 129 L 136-145 mmol/L Potassium Level 4.3 3.5-5.1 mmol/L Chloride Level 97 L 98-107 mmol/L Carbon Dioxide Level 15 L 20-31 mmol/L Anion Gap 17 H 5-15 Blood Urea Nitrogen 62 #H 9-23 mg/dL Creatinine 3.18 H 0.700-1.30 mg/dL Glomerular Filtration Rate Calc 20 >90 mL/min BUN/Creatinine Ratio 19.5 10.0-20.0 Serum Glucose 215 H 74-106 mg/dL Calcium Level 8.4 L 8.7-10.4 mg/dL Magnesium Level 2.2 1.6-2.6 mg/dL Test 05/17/25 13:57 05/16/25 15:18 05/16/25 15:00 05/14/25 20:00 Range/Units POC Glucose 190 H 70-106 mg/dl Urine Color Light-orange Yellow Urine Clarity Ex.turbid Clear Urine pH 5.5 5.0-9.0 Urine Specific [place] 1.019 1.001-1.035 Urine Protein 1+ H Negative Urine Ketones Trace Negative Urine Blood Trace H Negative /uL Urine Nitrite Negative Negative Urine Bilirubin Negative Negative Urine Urobilinogen Normal Negative mg/dL Urine Leukocyte Esterase 3+ Negative /uL Urine RBC 11 0 - 3 /hpf Urine WBC Clumps Present None Seen /hpf Urine Microscopic WBC 1624 H 0-3 /HPF Urine Squamous Epithelial Cells None seen <5 /hpf Urine Bacteria None seen None Seen /hpf Urine Hyaline Casts Few 0 - 2 /lpf Urine Mucus Few None Seen Urine Yeast (Budding) Many None Seen /hpf Urine Osmolality 359 mOsm/kg Urine Creatinine 122.44 30.0-125.0 mg/dL Urine Protein/Creatinine Ratio 1.06 Urine Sodium 17 L 40-220 mmol/L Urine Glucose Normal Normal mg/dL Urine Total Protein 130.0 H 1-14 mg/dL Uric Acid 7.4 3.7-9.2 mg/dL Phosphorus Level 4.0 2.4-5.1 mg/dL B-Type Natriuretic Peptide 2815.68 0-100 pg/mL Vitamin D 25-Hydroxy 29.6 L 30.0-100 ng/mL Parathyroid Hormone (Intact) 117.3 H 18.4-80.1 pg/mL Stool Occult Blood Negative Negative Stool Occult Blood Sample #3 Negative Test 05/13/25 20:07 05/13/25 11:00 05/13/25 05:12 05/06/25 07:20 Range/Units Iron Level 157 65-175 ug/dL Total Iron Binding Capacity 200 L 250-425 ug/dL Percent Iron Saturation 78.5 H 20-55 % Reticulocyte Count (auto) 1.57 H 0.5-1.5 % Ferritin 1192.5 H 22-322 ng/mL Lactate Dehydrogenase 293 H 120-246 U/L Vitamin B12 Level 461 211-911 pg/mL Folic Acid 7.78 >5.38 ng/mL Prothrombin Time 11.7 9.3-11.8 sec Prothrombin Time INR 1.12 0.9-1.15 Activated Partial Thromboplast Time 35.7 H 24.5-34.5 SEC Test 05/04/25 12:42 Range/Units Troponin I High Sensitivity 168 *H </=54 ng/L Microbiology Date/Time Source Procedure Growth Status 05/17/25 13:29 Foot Left Gram Stain - Final Resulted 05/17/25 13:29 Foot Left Anaerobic Culture - Preliminary Resulted 05/17/25 13:29 Foot Left Aerobic Culture - Preliminary Resulted 05/06/25 18:49 Blood Blood Culture - Final NO GROWTH AFTER 5 DAYS OF INCUBATION. Complete Assessment 05/20/25 PICC LINE NURSE AT BEDSIDE PRESENT THROUGH OUT THE INTERACTION WITH PATIENT. EXPLAINED THAT HIS ARTERIAL INSUFFICIENCY IS SEVERE AND HE NEEDS A BELOW THE KNEE AMPUTATION HIS CONDITION IS WORSENING, HE IS ACODOTIC AND HIS KIDNEY FUNCTION IS DETERIORATING, THE OPERATION OF BKA, RISKS AND COMPLICATIONS EXPLAINED REPEATEDLY THE PATIENT KEPT ASKING THE SAME QUESTIONS OVER AND OVER AGAIN, i OFFERED HIM A SECOND OPINION BY ANOTHER SURGEON, WHICH HE FELT HE DID NOT WANT. EXPLAINED THAT WE NEED TO PROCEED EXPEDITIOUSLY BEFORE HE DEVELOPS OVERWHELMING SEPSIS. Plan discussed with: Patient, Other DOUG URENA MD May 19, 2025 14:00
[2025-05-19] MEDS: LIDOCAINE 1% (LOCAL ANESTH.) PF 5ml SDV ID ONE (14:15)
--- NOTE | 2025-05-19 14:35 | DVHPN2 ---
Progress Note Date Seen: May 19, 2025 Medical Necessity Reason Pt with a Central, PICC or Fol: No Subjective Patient reports: No new complaints Other Systems: Patient seen and examined by myself today in follow-up Objective vital signs Vital Sign Date Time Temp Pulse Resp B/P (MAP) Pulse Ox O2 Delivery O2 Flow Rate FiO2 05/19/25 13:26 97.6 98 20 114/69 (84) 95 97.6 05/19/25 08:00 Nasal Cannula* 2 28 Total Intake and Output 05/18/25 05/18/25 05/19/25 15:00 23:00 07:00 Intake Total 350 ml 237 ml 500 ml Output Total 150 ml 0 ml Balance 350 ml 87 ml 500 ml medications Current Medications Medications Dose Ordered Sig/Bandar Route Start Time Stop Time Status Last Admin Dose Admin Sodium Chloride 10 ml Q8HR IV 05/04/25 22:00 05/19/25 13:00 10 ML Ondansetron HCl 4 mg Q4HP PRN IV 05/04/25 15:00 05/15/25 15:09 4 MG Acetaminophen 650 mg Q6HP PRN PO 05/04/25 15:00 Clopidogrel Bisulfate 75 mg DAILY PO 05/07/25 10:00 05/19/25 08:59 75 MG Pantoprazole Sodium 40 mg DAILY@0600 PO 05/08/25 06:00 05/19/25 05:33 40 MG Enoxaparin Sodium 70 mg Q12HR SC 05/08/25 22:00 05/19/25 09:32 70 MG Enteral Nutritional Formula 240 ml TIDWM PO 05/08/25 12:00 05/19/25 08:25 240 ML Ascorbic Acid 500 mg DAILY PO 05/09/25 10:00 05/19/25 09:00 500 MG Zinc Sulfate 220 mg DAILY PO 05/09/25 10:00 05/19/25 08:59 220 MG Linezolid 300 ml @ 150 mls/hr Q12HR IV 05/16/25 22:00 05/19/25 10:23 150 MLS/HR Atorvastatin Calcium 40 mg HS PO 05/17/25 22:00 05/18/25 21:36 40 MG Furosemide 40 mg DAILY IV 05/19/25 10:00 05/19/25 09:08 40 MG Meropenem 50 ml @ 17 mls/hr Q12H IV 05/19/25 11:00 05/19/25 13:00 17 MLS/HR Sodium Bicarbonate 650 mg QID PO 05/19/25 10:15 05/19/25 12:58 650 MG Sodium Chloride 10 ml QSHIFT@10,22 IV 05/19/25 22:00 UNV Examination: LUNGS:Normal, CVS:Normal, MSK:Abnormal laboratory and microbiology Laboratory Tests 05/19/25 04:40 Test 05/19/25 04:40 Range/Units Serum Glucose 215 H 74-106 mg/dL Microbiology Date/Time Source Procedure Growth Status 05/17/25 13:29 Foot Left Gram Stain - Final Resulted 05/17/25 13:29 Foot Left Anaerobic Culture - Preliminary Resulted 05/17/25 13:29 Foot Left Aerobic Culture - Preliminary Resulted 05/06/25 18:49 Blood Blood Culture - Final NO GROWTH AFTER 5 DAYS OF INCUBATION. Complete Problem List/Assessment/Plan Problem List/Assessment/Plan Acute kidney injury superimposed Chronic Kidney Disease stage IV secondary hemodynamic mediated Gangrene left foot Left lower extremity DVT Diabetes mellitus type 2 Chronic diastolic Congestive heart failure NSTEMI Hyponatremia due to excess H2O Dropping hemoglobin Anemia due to blood loss Metabolic acidosis History of testicular cancer Cellulitis lower extremity Recommendations Kidney function stable Chronic Kidney Disease stage 4 Decreased urine output Strict I&Os kidney ultrasound reported bilateral small echogenic kidneys, no obstruction Fluid restrictions Bumex 1 mg IV b.i.d. Midodrine 10 mg p.o. t.i.d. for blood pressure support Packed red blood cell transfusion p.r.n. Sodium bicarbonate tablets 650 mg p.o. Q.i.d. Noted plan for amputation by surgery We will continue to follow Plan discussed with: Patient My Orders My Orders Orders - QUOC QUINONEZ MD Procedure Category Date Status Time Sodium Bicarb Tab PHA 05/19/25 In Process 10:15 Midodrine Tablet PHA 05/19/25 Verified (Proamatine Tablet) 18:00 Bumetanide Injection PHA 05/19/25 Verified (Bumex Injection) 18:00 Dietary Evaluation Review Comments: 1) Advance to [facility] 75gm + cardiac diet 2) Armen 1 pk BID, MVI w/ minerals 1 tab daily, VitC 500mg BID, Zinc sulfate 220mg BID x 10 days 3) Monitor NPO status, lab values, weight trend, and I/O Expected Outcomes/Goals: To meet >75% estimated needs Wound to improve Fu 2-3 days QUOC QUINONEZ MD May 19, 2025 14:35
[2025-05-19 16:50] VITALS: BP 104/67; PULSE 85; RESP 20; TEMP 97.7; O2SAT 92
--- NOTE | 2025-05-19 17:12 | MEDREC ---
[facility] Intervention Section I [facility] Intervention: Review courses of therapy Assessment of apprpriate abx f: Skin & soft tissue infect (PLATELETS CURRENTLY 128; WHEN STARTED ON LINEZOLID PLT = 290. CONSIDER CHANGING ABX PLTS DROP.) KENNETH BRIDGES PHARMACIST May 19, 2025 17:12
[2025-05-19] MEDS: MIDODRINE HCL 10 MG TAB PO SCH (17:22)
[2025-05-19] MEDS: BUMETANIDE 1mg/4ml VIAL (0.25mg/ml) IV SCH (17:22)
--- NOTE | 2025-05-19 19:37 | DVHPNRES ---
Progress Note Date Seen: May 19, 2025 Resident Creating Document: TAMI LOPEZ RESIDENT Medical Necessity Reason Pt with a Central, PICC or Fol: No Subjective Review of Systems Benita Joy 74-year-old male with previous history of triple-vessel CAD, testicular cancer, CKD on stage III, type 2 diabetes mellitus with peripheral neuropathy, hyperlipidemia, hypertension, peripheral artery disease, left lower extremity DVT on Eliquis and home hospice care presented to the ER with a history of left leg purple discoloration since last 3 days. He denies any chest pain, shortness of breath, abdominal pain or any other complaints today. The patient was admitted at [facility] in February, during the time the patient underwent debridements of the right foot. The patient is not taking Eliquis due to bruising, his home health hospice nurse advised him to stop Eliquis. Past medical history:triple-vessel CAD, testicular cancer, CKD on stage III, type 2 diabetes mellitus with peripheral neuropathy, hyperlipidemia, hypertension, peripheral artery disease, left lower extremity DVT Past surgical history: Tonsillectomy, debridement of necrotic right toe. Allergies: No known allergy Home medications: Apixaban, linezolid, pantoprazole, atorvastatin, carvedilol, tamsulosin, amlodipine, aspirin, hydrocodone acetaminophen, rifampin Smoking history: None Alcohol: Occasionally Drugs: Denies PCP: Dr. Avendano Patient was seen and examined at bedside. Overnight events were reviewed. The patient denies any chest pain, shortness of breath, abdominal pain, vomiting, pain at the gangrene site or any other complaints today. Patient has elevated lactic acid and deteriorating kidney functions were discussed with the patient and was discussed about the possible DKA. The patient agreed to consult vascular surgeon. Objective vital signs Vital Sign Date Time Temp Pulse Resp B/P (MAP) Pulse Ox O2 Delivery O2 Flow Rate FiO2 05/19/25 17:22 104/67 05/19/25 16:50 97.7 85 20 92 97.7 05/19/25 08:00 Nasal Cannula* 2 28 Total Intake and Output 05/18/25 05/18/25 05/19/25 15:00 23:00 07:00 Intake Total 350 ml 237 ml 500 ml Output Total 150 ml 0 ml Balance 350 ml 87 ml 500 ml medications Current Medications Medications Dose Ordered Sig/Bandar Route Start Time Stop Time Status Last Admin Dose Admin Sodium Chloride 10 ml Q8HR IV 05/04/25 22:00 05/19/25 13:00 10 ML Ondansetron HCl 4 mg Q4HP PRN IV 05/04/25 15:00 05/15/25 15:09 4 MG Acetaminophen 650 mg Q6HP PRN PO 05/04/25 15:00 Clopidogrel Bisulfate 75 mg DAILY PO 05/07/25 10:00 05/19/25 08:59 75 MG Pantoprazole Sodium 40 mg DAILY@0600 PO 05/08/25 06:00 05/19/25 05:33 40 MG Enoxaparin Sodium 70 mg Q12HR SC 05/08/25 22:00 05/19/25 09:32 70 MG Enteral Nutritional Formula 240 ml TIDWM PO 05/08/25 12:00 05/19/25 17:22 240 ML Ascorbic Acid 500 mg DAILY PO 05/09/25 10:00 05/19/25 09:00 500 MG Zinc Sulfate 220 mg DAILY PO 05/09/25 10:00 05/19/25 08:59 220 MG Linezolid 300 ml @ 150 mls/hr Q12HR IV 05/16/25 22:00 05/19/25 10:23 150 MLS/HR Atorvastatin Calcium 40 mg HS PO 05/17/25 22:00 05/18/25 21:36 40 MG Furosemide 40 mg DAILY IV 05/19/25 10:00 05/19/25 09:08 40 MG Meropenem 50 ml @ 17 mls/hr Q12H IV 05/19/25 11:00 05/19/25 13:00 17 MLS/HR Sodium Bicarbonate 650 mg QID PO 05/19/25 10:15 05/19/25 17:22 650 MG Sodium Chloride 10 ml QSHIFT@10,22 IV 05/19/25 22:00 Midodrine 10 mg TID@0600,1200,1800 PO 05/19/25 18:00 05/19/25 17:22 10 MG Bumetanide 1 mg BIDD IV 05/19/25 18:00 05/19/25 17:22 1 MG Examination Pt is lying on bed General Appearance: Alert, Oriented X3, Cooperative, Mild distress HEENT: Atraumatic, pale conjunctiva, Mucous membranes moist Respiratory: Clear to auscultation, Normal air movement, No added sounds Cardiovascular: Regular rate, Normal S1, Normal S2, No murmurs Abdominal/ : Active bowel sounds, Soft, no distention, no tenderness Extremities: No edema, right-sided pulses diminished compared to left side,Rt upper extremity hematoma resolving, left feet with dry bandage and wrap. Skin: No Significant rash, except past surgical scars Neuro: Normal speech, sensorimotor deficits none Psych/Mental Status: Mental status NL, Mood NL Nurse was there as packer operator automatic during examination laboratory and microbiology Laboratory Tests 05/19/25 04:40 Test 05/19/25 04:40 Range/Units Serum Glucose 215 H 74-106 mg/dL Microbiology Date/Time Source Procedure Growth Status 05/17/25 13:29 Foot Left Gram Stain - Final Resulted 05/17/25 13:29 Foot Left Anaerobic Culture - Preliminary Resulted 05/17/25 13:29 Foot Left Aerobic Culture - Preliminary Resulted 05/06/25 18:49 Blood Blood Culture - Final NO GROWTH AFTER 5 DAYS OF INCUBATION. Complete Labs and/or images reviewed: Labs reviewed by me, Image(s) reviewed by me Problem List/Assessment/Plan Problem List/Assessment/Plan # Sepsis secondary to osteomyelitis of left foot - s/p I&D # Left Toe Dry Gangrene due to Severe PAD # Severe Peripheral Arterial Disease (PAD) # History of right and left Toe Osteomyelitis Podiatry on board: Completed I and D on 05/17/2025 which showed extensive osteomyelitis of left foot. Patient will benefit from [id number] amputation. Planning on PICC line placement to continue IV antibiotics for at least six weeks. Patient refuses at this time [id number] amputation, prefers conservative management and re-evaluation after six weeks. Left SFA stenting completed on 05/06/2025; right lower extremity angiogram was canceled due to patient's elevated creatinine most probably due to contrast,status post left-sided stent placement. Patient with IV fluid until kidney function improves and reschedule right lower extremity angiogram. Cardiology was consulted for rescheduling the procedure outpatient. Continue aspirin, Plavix, and statin therapy. disontinue antibiotics: ceftriaxone and linezolid. Started injection meropenem Lactic acid up trending. # Severe anemia probably secondary to sepsis - s/p PRBCs transfusions # Severe anemia in patient on anticoagulation # Normocytic hypochromic anemia due to chronic disease (CKD/sepsis) # Hematoma in the right upper arm # Left Lower Extremity DVT (Popliteal Vein) Hemoglobin stable now No signs symptoms of active bleeding FOBT negative Doppler of the right upper extremity: No DVT, Anechoic structure with internal lace-like reticulations in the inner upper arm which could reflect a hematoma Continued anticoagulation according to Cardiology recommendations, as the patient is high risk status post left lower extremity stent placement. IVC filter placement is under consideration. Patient is on Plavix and enoxaparin, discontinued aspirin per Cardiology recommendations. On enoxaparin 70 mg BID. # AD hemodynamically mediated (VMN) on CKD # Chronic Kidney Disease Stage III Monitor renal function and electrolytes. Avoid nephrotoxic agents. Adjust medications as needed for renal dosing. Nephrology was consulted: Optimize medical therapy (indicated bicarbonate pills), discontinued IV fluids and indicated IV diuretics # NSTEMI Type 2 (Demand Ischemia) # History of Severe Triple-Vessel CAD (Declined CABG) # Acute on chronic diastolic congestive heart failure (HFpEF, LVEF 50-55%) # Hypertensive Heart Disease with Diastolic Dysfunction and LVH Continue medical management. Continue medical management. Patient on enoxaparin and Plavix, discontinue aspirin Currently on IV diuretics (40 mg furosemide daily) Cardiac diet. # Hyperkalemia Treated with Lokelma, albuterol, bicarbonate, and calcium. Monitor potassium levels. # Transaminitis Monitor liver enzymes. Review medications for hepatotoxicity. # Type 2 Diabetes Mellitus with Peripheral Neuropathy - Controlled (hemoglobin A1c 6.7%) # Hyperlipidemia Diet controlled. Monitor for foot ulcers and neuropathic complications. CMP blood glucose ranges 130-150 Continue atorvastatin. Monitor lipid panel. # History of Testicular Cancer # Gait instability: Patient benefitted with physical therapy. Goals of care discussions, full code status. More than 19 minute spent with patient. Case discussed with Dr. York Plan discussed with: Patient, Other (RN) Plan discussed with: Patient, Other (RN) My Orders My Orders Orders - TAMI LOPEZ RESIDENT Procedure Category Date Status Time Wound Vac SALVADOR 05/19/25 In Process 09:21 Consult CONS 05/19/25 Transmitted Vascular/Endovascular 11:59 Dietary Evaluation Review Comments: 1) Advance to [facility] 75gm + cardiac diet 2) Armen 1 pk BID, MVI w/ minerals 1 tab daily, VitC 500mg BID, Zinc sulfate 220mg BID x 10 days 3) Monitor NPO status, lab values, weight trend, and I/O Expected Outcomes/Goals: To meet >75% estimated needs Wound to improve Fu 2-3 days Date of Service: May 19, 2025 Billing Provider: LAUREN YORK MD Common Visit Codes: [id number] INP/OBS CARE(HIGH) TAMI LOPEZ RESIDENT May 19, 2025 19:37 DANA MERCADO RESIDENT May 22, 2025 09:13 LAUREN YORK MD May 22, 2025 10:34
[2025-05-19 21:00] VITALS: BP 115/73; PULSE 100; RESP 19; TEMP 96.7; O2SAT 95
[2025-05-19] MEDS: SODIUM CHLOR 0.9% PF (SALINE LOCK) 10ML VIAL/SYR IV SCH (22:21)
[2025-05-20] VITALS (28 sets, daily range): BP systolic 94–123; BP diastolic 55–81; PULSE 58–103; RESP 11–20; TEMP 93.4–98.5; O2SAT 89–100
[2025-05-20 06:17] LABS: Hematocrit 22.0 % (41.0-53.0); Hemoglobin 7.5 g/dL (13.5-17.5); Mean Corpuscular Hemoglobin 32.7 pg (28.0-32.0); Mean Corpuscular Volume 96.1 fL (80.0-100.0); Nucleated Red Blood Cells % 0.1 %
[2025-05-20 06:35] LABS: Potassium 4.5 mmol/L (3.5-5.1)
[2025-05-20 06:36] LABS: Anion Gap 18 (5-15)
[2025-05-20 06:41] LABS: BUN/Creatinine Ratio 15.2 (10.0-20.0)
[2025-05-20 06:44] LABS: Blood Urea Nitrogen 55 mg/dL (9-23); Calcium 8.5 mg/dL (8.7-10.4); Carbon Dioxide 16 mmol/L (20-31); Chloride 95 mmol/L (98-107); Glucose 183 mg/dL (74-106); Sodium 129 mmol/L (136-145)
[2025-05-20] MEDS: POVIDONE IODINE 10 % TOPICAL OINT 30GM TOP ONE (07:18)
[2025-05-20] MEDS: ceFAZolin 2 GM/D5W50ml 50 ML IV ONE (07:49)
[2025-05-20] MEDS ORDERED: MORPHINE SULF PF 5 MG/10 ML VIAL ONE (07:51)
[2025-05-20] MEDS ORDERED: fentaNYL CITRATE 100 MCG/2 ML VL ONE (07:51)
[2025-05-20] MEDS ORDERED: MIDAZOLAM HCL 2MG/2ML 2ml VIAL (1mg/ml) ONE (07:52)
[2025-05-20] MEDS ORDERED: BUPIVACAINE/DEXTROSE MPF 0.75% 2 ML AMP IT ONE (07:54)
[2025-05-20] MEDS ORDERED: METOCLOPRAMIDE HCL 5MG/ml INJ 2ml VIAL ONE (08:14)
[2025-05-20] MEDS ORDERED: ONDANSETRON HCL 4 MG/2 ML VIAL ONE (08:14)
[2025-05-20] MEDS: ceFAZolin 1GM VL ONE (08:46)
[2025-05-20] MEDS ORDERED: HYDROmorphone HCL 2 MG/ML VL/or syr IV PRN (09:30)
[2025-05-20] MEDS ORDERED: diphenhdrAMINE HCL 50 MG/1 ML VL IV PRN (09:30)
[2025-05-20] MEDS ORDERED: NALOXONE HCL 0.4 MG/ML VIAL IV PRN (09:30)
--- NOTE | 2025-05-20 09:42 | DVHOP ---
DATE OF SURGERY: 05/20/2025 PREOPERATIVE DIAGNOSIS: Gangrene left foot. POSTOPERATIVE DIAGNOSIS: Gangrene left foot. SURGEON: Cristiano Hodges MD SMOKE ROOM OPERATOR: Alex Giron NP ANESTHESIA: Spinal with sedation, Osmel Patricio CRNA. PROCEDURE: Left [id number] amputation. DESCRIPTION OF PROCEDURE: Under adequate spinal anesthesia with the skin prepped and draped, the incision was outlined with indelible ink pen with a posteriorly based flap incision. The incision was accomplished sharply and the deepened incision with electrocautery was extremely difficult due to calcification of subcutaneous tissues and fascia. The incision necessitated sharp and blunt dissection. Vessels were ligated individually. The nerve was put on traction and amputated. Bone was transected with oscillating saw. Following removal of the necrotic foot and lower leg from the field, the remaining extremity was profusely irrigated. The irrigant was aspirated. Hemostasis was meticulously accomplished. Approximation with 0 Vicryl sutures was very difficult due to the calcifications and concretions of the soft tissues of the extremity. Skin was closed with great difficulty due to the lack of flexibility of the skin, attempting to avoid multiple skin lesions. Following closure of the skin, a wound VAC was applied to the suture line and the patient remained in unchanged clinical condition at the termination of the procedure. Left the operating room following an accurate needle and sponge count. His son, Keaton, was thoroughly informed at [phone]. MD ASHUTOSH Dumont/KECIA TID: [id number] RECEIPT: [id number]
[2025-05-20 10:56] LABS: Urine Protein, UAD 1+ (Negative); Urine WBC Clumps PRESENT /hpf (None Seen)
--- NOTE | 2025-05-20 11:00 | DVHPN2 ---
Progress Note Date Seen: May 20, 2025 Medical Necessity Reason Pt with a Central, PICC or Fol: No Subjective Other Systems: Patient seen and examined by myself today in follow-up Objective vital signs Vital Sign Date Time Temp Pulse Resp B/P (MAP) Pulse Ox O2 Delivery O2 Flow Rate FiO2 05/20/25 09:00 98.0 58 18 123/76 (92) 94 98.0 05/20/25 08:00 Nasal Cannula* 2 28 Total Intake and Output 05/19/25 05/19/25 05/20/25 15:00 23:00 07:00 Intake Total 350 ml 410 ml 350 ml Output Total 200 ml Balance 350 ml 210 ml 350 ml medications Current Medications Medications Dose Ordered Sig/Bandar Route Start Time Stop Time Status Last Admin Dose Admin Sodium Chloride 10 ml Q8HR IV 05/04/25 22:00 05/20/25 06:23 10 ML Ondansetron HCl 4 mg Q4HP PRN IV 05/04/25 15:00 05/15/25 15:09 4 MG Acetaminophen 650 mg Q6HP PRN PO 05/04/25 15:00 Clopidogrel Bisulfate 75 mg DAILY PO 05/07/25 10:00 05/19/25 08:59 75 MG Pantoprazole Sodium 40 mg DAILY@0600 PO 05/08/25 06:00 05/19/25 05:33 40 MG Enteral Nutritional Formula 240 ml TIDWM PO 05/08/25 12:00 05/19/25 17:22 240 ML Ascorbic Acid 500 mg DAILY PO 05/09/25 10:00 05/19/25 09:00 500 MG Zinc Sulfate 220 mg DAILY PO 05/09/25 10:00 05/19/25 08:59 220 MG Linezolid 300 ml @ 150 mls/hr Q12HR IV 05/16/25 22:00 05/19/25 22:24 150 MLS/HR Atorvastatin Calcium 40 mg HS PO 05/17/25 22:00 05/18/25 21:36 40 MG Furosemide 40 mg DAILY IV 05/19/25 10:00 05/19/25 09:08 40 MG Meropenem 50 ml @ 17 mls/hr Q12H IV 05/19/25 11:00 05/19/25 23:00 17 MLS/HR Sodium Chloride 10 ml QSHIFT@10,22 IV 05/19/25 22:00 05/19/25 22:21 10 ML Midodrine 10 mg TID@0600,1200,1800 PO 05/19/25 18:00 05/20/25 06:30 10 MG Bumetanide 12.5 mg/Miscellaneous 50 ml @ 2 mls/hr Q24H IV 05/20/25 09:30 Sodium Bicarbonate 50 ml/ Sodium Chloride 1,050 ml @ 100 mls/hr [id number] IV 05/20/25 09:30 Dopamine HCl/ Dextrose 250 ml @ 5.79 mls/hr Q24H IV 05/20/25 09:30 Diphenhydramine HCl 25 mg Q4HP PRN IV 05/20/25 09:30 Ondansetron HCl 4 mg Q4HP PRN IV 05/20/25 09:30 Examination: LUNGS:Normal, CVS:Normal, MSK:Abnormal laboratory and microbiology Laboratory Tests 05/20/25 05:55 Test 05/20/25 05:55 Range/Units Serum Glucose 183 H 74-106 mg/dL Microbiology Date/Time Source Procedure Growth Status 05/19/25 08:14 Blood Blood Culture - Preliminary NO GROWTH AFTER 24 HOURS OF INCUBATION. Resulted 05/17/25 13:29 Foot Left Gram Stain - Final Resulted 05/17/25 13:29 Foot Left Anaerobic Culture - Preliminary Resulted 05/17/25 13:29 Foot Left Aerobic Culture - Preliminary Resulted Problem List/Assessment/Plan Problem List/Assessment/Plan Acute kidney injury superimposed Chronic Kidney Disease stage IV secondary hemodynamic mediated, FeNa < 1% Gangrene left foot, status post left below-knee amputation 05/20 Left lower extremity DVT Diabetes mellitus type 2 Chronic diastolic Congestive heart failure NSTEMI Hyponatremia due to excess H2O Dropping hemoglobin Anemia due to blood loss Metabolic acidosis Septic shock History of testicular cancer Cellulitis lower extremity Recommendations Kidney function slightly worsened today Decreased urine output Strict I&Os kidney ultrasound reported bilateral small echogenic kidneys, no obstruction Fluid restrictions Bumex IV drip 0.5 mg/hr Low-dose dopamine Midodrine 10 mg p.o. t.i.d. for blood pressure support Packed red blood cell transfusion p.r.n. IV fluid with bicarb Noted plan for amputation by surgery We will continue to follow Plan discussed with: Patient My Orders My Orders Orders - QUOC QUINONEZ MD Procedure Category Date Status Time Midodrine Tablet PHA 05/19/25 In Process (Proamatine Tablet) 18:00 Fentanyl Citrate PHA 05/20/25 In Process Injection 07:51 Give Un-Diluted PHA 05/20/25 In Process (Gi... W/Bumetanide 09:30 Sod Chl 0.45% PHA 05/20/25 In Process (Sodi... W/Sodium 09:30 Dopamine 1600mcg/Ml PHA 05/20/25 In Process [id number] 09:30 Transfer Orders XFER 05/20/25 Transmitted 09:41 Insert/Manage Urinary SALVADOR 05/20/25 In Process Catheter 09:58 Urinalysis LAB 05/20/25 In Process 10:25 Dietary Evaluation Review Comments: 1) Advance to [facility] 75gm + cardiac diet 2) Armen 1 pk BID, MVI w/ minerals 1 tab daily, VitC 500mg BID, Zinc sulfate 220mg BID x 10 days 3) Monitor NPO status, lab values, weight trend, and I/O Expected Outcomes/Goals: To meet >75% estimated needs Wound to improve Fu 2-3 days QUOC QUINONEZ MD May 20, 2025 11:00
[2025-05-20] MEDS: DOPamine 1600MCG/ML D5W 250 ML IV SCH (11:59)
[2025-05-20] MEDS: BUMETANIDE INJECTION 12.5 MG in GIVE UN-DILUTED 0 ML IV SCH (12:18)
[2025-05-20] MEDS: SODIUM BICARB 50mEq/50ml Vial 50 ML in SOD CHL 0.45% 1,000 ML IV SCH (12:27)
[2025-05-20] MEDS: ONDANSETRON HCL 4 MG/2 ML VIAL IV PRN (15:16)
[2025-05-20] MEDS: InsuLIN REG 1unit/0.01ml Soln (100units/ml) SC ONE (15:35)
[2025-05-20] MEDS: METOCLOPRAMIDE HCL 5MG/ml INJ 2ml VIAL IV ONE (16:04)
[2025-05-20] MEDS: METOCLOPRAMIDE HCL 5MG/ml INJ 2ml VIAL ONE (16:04)
[2025-05-20 16:41] LABS: Base Excess -14.5 mmol/L (-2.0-3.0)
--- NOTE | 2025-05-20 16:59 | DVH ---
CHEST RADIOGRAPH Indication: SOB Technique: XY CHEST PORTABLE COMPARISON: 05/19/2025 FINDINGS: The left PICC line tip projects over the SVC. The cardiac silhouette is enlarged. The lungs demonstrate bilateral patchy airspace opacities. The pu lmonary vasculature is prominent. Moderate bilateral pleural effusions. There is no pneumothorax. IMPRESSION: Cardiomegaly with pulmonary vascular congestion and bilateral patchy airspace opacities., significant ly worsened. Moderate bilateral pleural effusions.
[2025-05-20 18:07] LABS: Anion Gap 22 (5-15); BUN/Creatinine Ratio 18.5 (10.0-20.0); Bilirubin, Total 0.8 mg/dL (0.2-1.0); Potassium 4.5 mmol/L (3.5-5.1); Total Protein 5.9 g/dL (5.7-8.2)
[2025-05-20 18:12] LABS: Alanine Aminotransferase 271 U/L (7-40); Albumin 3.0 g/dL (3.2-4.8); Alkaline Phosphatase 336 U/L (46-116); Blood Urea Nitrogen 70 mg/dL (9-23); Calcium 7.9 mg/dL (8.7-10.4); Carbon Dioxide 11 mmol/L (20-31); Chloride 96 mmol/L (98-107); Glucose 209 mg/dL (74-106); Sodium 129 mmol/L (136-145)
[2025-05-20 18:14] LABS: Lactic Acid w/Reflex 7.3 mmol/L (0.4-2.0)
--- NOTE | 2025-05-20 18:41 | DVHPNRES ---
Progress Note Date Seen: May 20, 2025 Resident Creating Document: DANA MERCADO RESIDENT Medical Necessity Reason Pt with a Central, PICC or Fol: No Subjective Review of Systems Osmel Joy 74-year-old male who presents to the ER with a history of left leg purple discoloration since last 3 days. He denies any chest pain, shortness of breath, abdominal pain or any other complaints today. The patient was admitted at [facility] in February, during the time the patient underwent debridements of the right foot. The patient is not taking Eliquis due to bruising, his home health hospice nurse advised him to stop Eliquis. Past medical history: Hypertension, diabetes, dyslipidemia, CAD severe triple- vessel disease non revascularized due to patient's refusal of CABG, testicular cancer, CKD on stage III, diabetic peripheral neuropathy, left lower extremity DVT, PAD, diabetic foot s/p toe amputation, bed bound for 3 months, spina bifida. Was on hospice, but revoked for this admission. Past surgical history: Tonsillectomy, debridement of necrotic right toe. Family history: Noncontributory Social history: Lives in [place] with son (CHALO). Denies tobacco, alcohol and other drug abuse Allergies: No known allergy Home medications: Apixaban, linezolid, pantoprazole, atorvastatin, carvedilol, tamsulosin, amlodipine, aspirin, hydrocodone acetaminophen, rifampin PCP: Dr. Avendano Patient seen and examined at bedside. Patient has elevated lactic acid and deteriorating kidney functions were discussed with the patient and was discussed about the possible DKA. The patient agreed to consult vascular surgeon. Objective vital signs Vital Sign Date Time Temp Pulse Resp B/P (MAP) Pulse Ox O2 Delivery O2 Flow Rate FiO2 05/20/25 16:54 103 11 117/63 (81) 98 05/20/25 16:45 Facial BiPAP Mask 50 05/20/25 09:20 6.0 05/20/25 09:09 97.0 97.0 Total Intake and Output 05/19/25 05/19/25 05/20/25 14:59 22:59 06:59 Intake Total 350 ml 410 ml 350 ml Output Total 200 ml Balance 350 ml 210 ml 350 ml medications Current Medications Medications Dose Ordered Sig/Bandar Route Start Time Stop Time Status Last Admin Dose Admin Acetaminophen 650 mg Q6HP PRN PO 05/04/25 15:00 Clopidogrel Bisulfate 75 mg DAILY PO 05/07/25 10:00 05/19/25 08:59 75 MG Pantoprazole Sodium 40 mg DAILY@0600 PO 05/08/25 06:00 05/19/25 05:33 40 MG Enteral Nutritional Formula 240 ml TIDWM PO 05/08/25 12:00 05/19/25 17:22 240 ML Ascorbic Acid 500 mg DAILY PO 05/09/25 10:00 05/20/25 11:45 500 MG Zinc Sulfate 220 mg DAILY PO 05/09/25 10:00 05/20/25 11:45 220 MG Linezolid 300 ml @ 150 mls/hr Q12HR IV 05/16/25 22:00 05/20/25 12:22 150 MLS/HR Atorvastatin Calcium 40 mg HS PO 05/17/25 22:00 05/18/25 21:36 40 MG Meropenem 50 ml @ 17 mls/hr Q12H IV 05/19/25 11:00 05/20/25 12:26 17 MLS/HR Sodium Chloride 10 ml QSHIFT@10,22 IV 05/19/25 22:00 05/20/25 12:27 10 ML Midodrine 10 mg TID@0600,1200,1800 PO 05/19/25 18:00 05/20/25 12:50 10 MG Bumetanide 12.5 mg/Miscellaneous 50 ml @ 2 mls/hr Q24H IV 05/20/25 09:30 05/20/25 12:18 2 MLS/HR Sodium Bicarbonate 50 ml/ Sodium Chloride 1,050 ml @ 100 mls/hr [id number] IV 05/20/25 09:30 05/20/25 12:27 100 MLS/HR Dopamine HCl/ Dextrose 250 ml @ 5.79 mls/hr Q24H IV 05/20/25 09:30 05/20/25 11:59 5.79 MLS/HR Diphenhydramine HCl 25 mg Q4HP PRN IV 05/20/25 09:30 Ondansetron HCl 4 mg Q4HP PRN IV 05/20/25 09:30 05/20/25 15:16 4 MG Examination Patient lying in bed, in mild acute distress General: Lucid, afebrile, mucosae are moist Cardiovascular: Normal S1 and S2. No murmurs, gallops or rubs Respiratory: Regular ventilation mechanics. Bibasilar crackles, apices are clear Abdomen: Soft, nontender, no organomegaly, normal bowel sounds MSK/skin: Mobilizes 4 limbs. Skin is dry and warm. [id number] amputation of left limb, has two drains with mild hematic secretion Neurological: Oriented in 3 spheres. No motor no sensitive deficits. Pupils are isocoric and reactive laboratory and microbiology Test 05/20/25 17:11 Range/Units Serum Glucose Pending Microbiology Date/Time Source Procedure Growth Status 05/19/25 09:30 Voided Urine Urine Culture - Preliminary Resulted 05/19/25 09:30 Sputum Gram Stain Pending Resulted 05/19/25 09:30 Sputum Respiratory Culture - Preliminary Resulted 05/19/25 08:14 Blood Blood Culture - Preliminary NO GROWTH AFTER 24 HOURS OF INCUBATION. Resulted 05/17/25 13:29 Foot Left Gram Stain - Final Resulted 05/17/25 13:29 Foot Left Anaerobic Culture - Preliminary Resulted 05/17/25 13:29 Foot Left Aerobic Culture - Preliminary Resulted Problem List/Assessment/Plan Problem List/Assessment/Plan # Septic shock secondary to osteomyelitis of left foot - s/p I&D and BKA # Left Toe Dry Gangrene due to Severe PAD # Severe Peripheral Arterial Disease (PAD) # History of right and left Toe Osteomyelitis Podiatry on board: Completed I and D on 05/17/2025 which showed extensive osteomyelitis of left foot, indicate BKA Planning on PICC line placement to continue IV antibiotics for at least six weeks. Left SFA stenting completed on 05/06/2025; right lower extremity angiogram was canceled due to patient's elevated creatinine most probably due to contrast,status post left-sided stent placement. Patient with IV fluid until kidney function improves and reschedule right lower extremity angiogram. Card iology was consulted for rescheduling the procedure outpatient. Continue aspirin, Plavix, and statin therapy. Under empiric IV antibiotic (meropenem and linezolid, previously on ceftriaxone) Lactic acid up trending. Currently on IV vasopressor (dopamine) # Severe anemia probably secondary to sepsis - s/p PRBCs transfusions # Severe anemia in patient on anticoagulation # Normocytic hypochromic anemia due to chronic disease (CKD/sepsis) # Hematoma in the right upper arm # Left Lower Extremity DVT (Popliteal Vein) Hemoglobin stable now No signs symptoms of active bleeding FOBT negative Doppler of the right upper extremity: No DVT, Anechoic structure with internal lace-like reticulations in the inner upper arm which could reflect a hematoma Continued anticoagulation according to Cardiology recommendations, as the patient is high risk status post left lower extremity stent placement. IVC filter placement is under consideration. Patient is on Plavix and enoxaparin, discontinued aspirin per Cardiology recommendations. On enoxaparin 70 mg BID. # AD hemodynamically mediated (VMN) on CKD # Chronic Kidney Disease Stage III Monitor renal function and electrolytes. Avoid nephrotoxic agents. Adjust medications as needed for renal dosing. Nephrology was consulted: Optimize medical therapy (indicated bicarbonate pills), discontinued IV fluids and indicated IV diuretics (bumex drip), dopamine drip and on bicarbonate drip # NSTEMI Type 2 (Demand Ischemia) # History of Severe Triple-Vessel CAD (Declined CABG) # Acute on chronic diastolic congestive heart failure (HFpEF, LVEF 50-55%) # Hypertensive Heart Disease with Diastolic Dysfunction and LVH Continue medical management. Continue medical management. Patient on enoxaparin and Plavix, discontinue aspirin Currently on IV diuretics (40 mg furosemide daily) Cardiac diet. # Hyperkalemia Treated with Lokelma, albuterol, bicarbonate, and calcium. Monitor potassium levels. # Transaminitis Monitor liver enzymes. Review medications for hepatotoxicity. # Type 2 Diabetes Mellitus with Peripheral Neuropathy - Controlled (hemoglobin A1c 6.7%) # Hyperlipidemia Diet controlled. Monitor for foot ulcers and neuropathic complications. CMP blood glucose ranges 130-150 Continue atorvastatin. Monitor lipid panel. # History of Testicular Cancer # Gait instability: Patient benefitted with physical therapy. Goals of care discussions, full code status. More than 19 minute spent with patient. Case discussed with Dr. York Nutrition: NPO Prophylaxis for PUD and DVT: Pantoprazole and enoxaparin therapeutic Lines PICC line (only one lumen) Drips Bicarbonate Dopamine Bumex drip Plan discussed with: Patient, Son, Other (Nurses) My Orders My Orders Orders - DANA MERCADO RESIDENT Procedure Category Date Status Time Abg W/ Co-Ox RT 05/20/25 Logged 16:16 Chest Portable XY 05/20/25 Resulted 16:26 Complete Blood Count LAB 05/20/25 Logged 16:27 Comprehensive LAB 05/20/25 In Process Metabolic Panel 16:27 Lactic Acid W/ Reflex LAB 05/20/25 In Process Order 16:27 Transfer Orders XFER 05/20/25 Transmitted 16:40 BIPAP RT 05/20/25 Logged 16:41 BIPAP RT 05/20/25 Logged 16:40 Dietary Evaluation Review Comments: 1) Advance to [facility] 75gm + cardiac diet 2) Armen 1 pk BID, MVI w/ minerals 1 tab daily, VitC 500mg BID, Zinc sulfate 220mg BID x 10 days 3) Monitor NPO status, lab values, weight trend, and I/O Expected Outcomes/Goals: To meet >75% estimated needs Wound to improve Fu 2-3 days Date of Service: May 20, 2025 Billing Provider: LAUREN YORK MD Common Visit Codes: [id number] CARE 30-74 MIN (crit care time 40 minutes) DANA MERCADO RESIDENT May 20, 2025 18:41 LAUREN YORK MD May 22, 2025 10:51
[2025-05-20 19:05] LABS: Hematocrit 26.8 % (41.0-53.0); Hemoglobin 8.0 g/dL (13.5-17.5); Mean Corpuscular Hemoglobin 32.7 pg (28.0-32.0); Mean Corpuscular Volume 109.0 fL (80.0-100.0); Nucleated Red Blood Cells % 0.2 %
[2025-05-20] MEDS ORDERED: NOREPINEPHRINE 8 MG/250ML KIT 250 ML IV SCH (19:45)
[2025-05-20] MEDS: VASOPRESSIN 20 UNITS in SODIUM CHL 0.9% 99 ML IV SCH (19:45)
[2025-05-20] MEDS: BUMETANIDE INJECTION 25 MG in GIVE UN-DILUTED 0 ML IV SCH (19:45)
[2025-05-20] MEDS ORDERED: DEXTROSE (50%) 50ML SYRG IV PRN (19:45)
[2025-05-20] MEDS: NOREPINEPHRINE BITARTRATE 32 MG in SODIUM CHL 0.9% 218 ML IV SCH (21:30)
[2025-05-20] MEDS: SODIUM BICARB 50mEq/50ml Vial 100 ML in SOD CHL 0.45% 1,000 ML IV SCH (21:36)
[2025-05-21] VITALS (115 sets, daily range): BP systolic 83–120; BP diastolic 44–85; PULSE 66–107; RESP 8–26; TEMP 93.3–99; O2SAT 88–100
[2025-05-21] MEDS: ACCU-CHEK COMFORT CURVE STRIP VI SCH
[2025-05-21] MEDS: InsuLIN REG 1unit/0.01ml Soln (100units/ml) SC SCH (00:26)
[2025-05-21] MEDS: NOREPINEPHRINE BITARTRATE 32 MG in SODIUM CHL 0.9% 218 ML IV SCH (01:00)
[2025-05-21 03:57] LABS: Anion Gap 17 (5-15); BUN/Creatinine Ratio 17.2 (10.0-20.0); Bilirubin, Total 0.4 mg/dL (0.2-1.0); Potassium 4.0 mmol/L (3.5-5.1)
[2025-05-21 04:07] LABS: Alanine Aminotransferase 224 U/L (7-40); Albumin 2.6 g/dL (3.2-4.8); Alkaline Phosphatase 276 U/L (46-116); Blood Urea Nitrogen 64 mg/dL (9-23); Calcium 7.7 mg/dL (8.7-10.4); Carbon Dioxide 18 mmol/L (20-31); Chloride 94 mmol/L (98-107); Glucose 114 mg/dL (74-106); Sodium 129 mmol/L (136-145); Total Protein 5.4 g/dL (5.7-8.2)
--- NOTE | 2025-05-21 05:46 | DVH ---
INDICATION: sob TECHNIQUE: XY CHEST PORTABLE COMPARISON: 05/19/2025 COMPARISON: XY CHEST PORTABLE on DOS: 05/20/25, XY CHEST XRAY 1 VIEW on DOS: 05/19/25, XY CHEST PORTABL E on DOS: 05/17/25, XY CHEST PORTABLE on DOS: 05/04/25, XY CHEST PORTABLE on DOS: 04/20/25, XY CHEST PORT ABLE on DOS: 05/20/25 FINDINGS: The left PICC line tip projects over the SVC. The cardiac silhouette is enlarged. The lungs demonstrate bilateral patchy airspace opacities. The pu lmonary vasculature is prominent. Moderate bilateral pleural effusions. There is no pneumothorax. IMPRESSION: Cardiomegaly with pulmonary vascular congestion and bilateral patchy airspace opacities., significant ly worsened. Moderate bilateral pleural effusions.
[2025-05-21 06:03] LABS: Mean Corpuscular Hemoglobin 32.6 pg (28.0-32.0); Nucleated Red Blood Cells % 0.1 %
[2025-05-21 06:05] LABS: Hematocrit 17.9 % (41.0-53.0); Mean Corpuscular Volume 93.5 fL (80.0-100.0)
[2025-05-21 06:10] LABS: Hemoglobin 6.2 g/dL (13.5-17.5)
[2025-05-21 08:59] LABS: INR 1.19 (0.9-1.15); Partial Thromboplastin Time 33.1 SEC (24.5-34.5); Prothrombin Time 12.4 sec (9.3-11.8)
--- NOTE | 2025-05-21 10:03 | DVHPN2 ---
Subjective Date Seen: May 21, 2025 Post op day Post op day: 1 Patient reports: No new complaints Objective Vitals Vital Sign Date Time Temp Pulse Resp B/P (MAP) Pulse Ox O2 Delivery O2 Flow Rate FiO2 05/21/25 09:13 96 Nasal Cannula* 3 32 05/21/25 06:52 91/53 05/21/25 06:45 93 13 05/21/25 04:00 96.8 96.8 Total Intake and Output 05/20/25 05/20/25 05/21/25 15:00 23:00 07:00 Intake Total 150 ml 706.74 ml 929 ml Output Total 0 ml 60 ml 50 ml Balance 150 ml 646.74 ml 879 ml Medications Current Medications Medications Dose Ordered Sig/Bandar Route Start Time Stop Time Status Last Admin Dose Admin Acetaminophen 650 mg Q6HP PRN PO 05/04/25 15:00 Clopidogrel Bisulfate 75 mg DAILY PO 05/07/25 10:00 05/19/25 08:59 75 MG Enteral Nutritional Formula 240 ml TIDWM PO 05/08/25 12:00 05/19/25 17:22 240 ML Ascorbic Acid 500 mg DAILY PO 05/09/25 10:00 05/20/25 11:45 500 MG Zinc Sulfate 220 mg DAILY PO 05/09/25 10:00 05/20/25 11:45 220 MG Linezolid 300 ml @ 150 mls/hr Q12HR IV 05/16/25 22:00 05/20/25 22:05 150 MLS/HR Atorvastatin Calcium 40 mg HS PO 05/17/25 22:00 05/20/25 22:20 40 MG Meropenem 50 ml @ 17 mls/hr Q12H IV 05/19/25 11:00 05/20/25 23:00 17 MLS/HR Sodium Chloride 10 ml QSHIFT@10,22 IV 05/19/25 22:00 05/21/25 00:21 10 ML Midodrine 10 mg TID@0600,1200,1800 PO 05/19/25 18:00 05/21/25 05:35 10 MG Dopamine HCl/ Dextrose 250 ml @ 5.79 mls/hr Q24H IV 05/20/25 09:30 05/20/25 11:59 5.79 MLS/HR Diphenhydramine HCl 25 mg Q4HP PRN IV 05/20/25 09:30 Ondansetron HCl 4 mg Q4HP PRN IV 05/20/25 09:30 05/20/25 15:16 4 MG Sodium Bicarbonate 100 ml/Sodium Chloride 1,100 ml @ 100 mls/hr Q11H IV 05/20/25 19:45 05/21/25 07:36 100 MLS/HR Bumetanide 25 mg/ Miscellaneous 100 ml @ 4 mls/hr Q24H IV 05/20/25 19:45 05/20/25 19:45 4 MLS/HR Vasopressin 20 units/Sodium Chloride 100 ml @ 9 mls/hr Q11H7M IV 05/20/25 19:45 Diagnostic Test (Pha) 1 strip Q6HR 05/21/25 00:00 05/21/25 05:35 1 STRIP Insulin Human Regular Q6HR SC 05/21/25 00:00 05/21/25 00:26 2 UNITS Dextrose 50 ml UD PRN IV 05/20/25 19:45 Norepinephrine Bitartrate 32 mg/ Sodium Chloride 250 ml @ 0.938 mls/ hr Q24H IV 05/21/25 01:00 Pantoprazole Sodium 40 mg DAILY IV 05/21/25 10:00 Artificial Tears 1 drop Q6HP PRN EACHEYE 05/21/25 05:00 Labs and Microbiology Laboratory Tests 05/21/25 05:48 05/21/25 03:13 Test 05/21/25 03:13 Range/Units Serum Glucose 114 H 74-106 mg/dL Ass/Plan Labs and/or images reviewed: Labs reviewed by me, Image(s) reviewed by me Problem List # Septic shock secondary to osteomyelitis of left foot - s/p I&D and BKA # Left Toe Dry Gangrene due to Severe PAD # Severe Peripheral Arterial Disease (PAD) # History of right and left Toe Osteomyelitis Podiatry on board: Completed I and D on 05/17/2025 which showed extensive osteomyelitis of left foot, indicate BKA Planning on PICC line placement to continue IV antibiotics for at least six weeks. Left SFA stenting completed on 05/06/2025; right lower extremity angiogram was canceled due to patient's elevated creatinine most probably due to contrast,status post left-sided stent placement. Patient with IV fluid until kidney function improves and reschedule right lower extremity angiogram. Cardiology was consulted for rescheduling the procedure outpatient. Continue aspirin, Plavix, and statin therapy. Under empiric IV antibiotic (meropenem and linezolid, previously on ceftriaxone) Lactic acid up trending. Currently on IV vasopressor (dopamine) # Severe anemia probably secondary to sepsis - s/p PRBCs transfusions # Severe anemia in patient on anticoagulation # Normocytic hypochromic anemia due to chronic disease (CKD/sepsis) # Hematoma in the right upper arm # Left Lower Extremity DVT (Popliteal Vein) Hemoglobin stable now No signs symptoms of active bleeding FOBT negative Doppler of the right upper extremity: No DVT, Anechoic structure with internal lace-like reticulations in the inner upper arm which could reflect a hematoma Continued anticoagulation according to Cardiology recommendations, as the patient is high risk status post left lower extremity stent placement. IVC filter placement is under consideration. Patient is on Plavix and enoxaparin, discontinued aspirin per Cardiology recommendations. On enoxaparin 70 mg BID. # AD hemodynamically mediated (VMN) on CKD # Chronic Kidney Disease Stage III Monitor renal function and electrolytes. Avoid nephrotoxic agents. Adjust medications as needed for renal dosing. Nephrology was consulted: Optimize medical therapy (indicated bicarbonate pills), discontinued IV fluids and indicated IV diuretics (bumex drip), dopamine drip and on bicarbonate drip # NSTEMI Type 2 (Demand Ischemia) # History of Severe Triple-Vessel CAD (Declined CABG) # Acute on chronic diastolic congestive heart failure (HFpEF, LVEF 50-55%) # Hypertensive Heart Disease with Diastolic Dysfunction and LVH Continue medical management. Continue medical management. Patient on enoxaparin and Plavix, discontinue aspirin Currently on IV diuretics (40 mg furosemide daily) Cardiac diet. # Hyperkalemia Treated with Lokelma, albuterol, bicarbonate, and calcium. Monitor potassium levels. # Transaminitis Monitor liver enzymes. Review medications for hepatotoxicity. # Type 2 Diabetes Mellitus with Peripheral Neuropathy - Controlled (hemoglobin A1c 6.7%) # Hyperlipidemia Diet controlled. Monitor for foot ulcers and neuropathic complications. CMP blood glucose ranges 130-150 Continue atorvastatin. Monitor lipid panel. # History of Testicular Cancer # Gait instability: Patient benefitted with physical therapy. Goals of care discussions, full code status. More than 19 minute spent with patient. Case discussed with Dr. York Nutrition: NPO Prophylaxis for PUD and DVT: Pantoprazole and enoxaparin therapeutic Lines PICC line (only one lumen) Drips Bicarbonate Dopamine Bumex drip Assessment/Plan labs and notes reviewed left stump ok dressing dry Plan: wound consult for wound vac Plan discussed with discussed with Dr. Hodges Visit Coding Surgery Date of Service if different f: May 21, 2025 Billing Provider: DOUG HODGES MD Surgery Visit Codes: [id number] INP/OBS CARE(HIGH) [facility] May 21, 2025 10:03
[2025-05-21] MEDS: PANTOPRAZOLE 40 MG/10 ML VIAL INJ IV SCH (10:08)
--- NOTE | 2025-05-21 10:19 | DVHPN2 ---
Progress Note Date Seen: May 21, 2025 Medical Necessity Reason Pt with a Central, PICC or Fol: No Subjective Review of Systems: RESPIRATORY:Abnormal Other Systems: Patient seen and examined by myself today in follow-up, O2 nasal cannula Objective vital signs Vital Sign Date Time Temp Pulse Resp B/P (MAP) Pulse Ox O2 Delivery O2 Flow Rate FiO2 05/21/25 09:30 95/58 05/21/25 09:13 96 Nasal Cannula* 3 32 05/21/25 06:45 93 13 05/21/25 04:00 96.8 96.8 Total Intake and Output 05/20/25 05/20/25 05/21/25 15:00 23:00 07:00 Intake Total 150 ml 706.74 ml 929 ml Output Total 0 ml 60 ml 50 ml Balance 150 ml 646.74 ml 879 ml medications Current Medications Medications Dose Ordered Sig/Bandar Route Start Time Stop Time Status Last Admin Dose Admin Acetaminophen 650 mg Q6HP PRN PO 05/04/25 15:00 Clopidogrel Bisulfate 75 mg DAILY PO 05/07/25 10:00 05/19/25 08:59 75 MG Enteral Nutritional Formula 240 ml TIDWM PO 05/08/25 12:00 05/19/25 17:22 240 ML Ascorbic Acid 500 mg DAILY PO 05/09/25 10:00 05/20/25 11:45 500 MG Zinc Sulfate 220 mg DAILY PO 05/09/25 10:00 05/20/25 11:45 220 MG Linezolid 300 ml @ 150 mls/hr Q12HR IV 05/16/25 22:00 05/21/25 10:08 150 MLS/HR Atorvastatin Calcium 40 mg HS PO 05/17/25 22:00 05/20/25 22:20 40 MG Meropenem 50 ml @ 17 mls/hr Q12H IV 05/19/25 11:00 05/20/25 23:00 17 MLS/HR Sodium Chloride 10 ml QSHIFT@10,22 IV 05/19/25 22:00 05/21/25 10:10 10 ML Midodrine 10 mg TID@0600,1200,1800 PO 05/19/25 18:00 05/21/25 05:35 10 MG Dopamine HCl/ Dextrose 250 ml @ 5.79 mls/hr Q24H IV 05/20/25 09:30 05/20/25 11:59 5.79 MLS/HR Diphenhydramine HCl 25 mg Q4HP PRN IV 05/20/25 09:30 Ondansetron HCl 4 mg Q4HP PRN IV 05/20/25 09:30 05/20/25 15:16 4 MG Sodium Bicarbonate 100 ml/Sodium Chloride 1,100 ml @ 100 mls/hr Q11H IV 05/20/25 19:45 05/21/25 07:36 100 MLS/HR Bumetanide 25 mg/ Miscellaneous 100 ml @ 4 mls/hr Q24H IV 05/20/25 19:45 05/20/25 19:45 4 MLS/HR Vasopressin 20 units/Sodium Chloride 100 ml @ 9 mls/hr Q11H7M IV 05/20/25 19:45 Diagnostic Test (Pha) 1 strip Q6HR 05/21/25 00:00 05/21/25 05:35 1 STRIP Insulin Human Regular Q6HR SC 05/21/25 00:00 05/21/25 00:26 2 UNITS Dextrose 50 ml UD PRN IV 05/20/25 19:45 Norepinephrine Bitartrate 32 mg/ Sodium Chloride 250 ml @ 0.938 mls/ hr Q24H IV 05/21/25 01:00 Pantoprazole Sodium 40 mg DAILY IV 05/21/25 10:00 05/21/25 10:08 40 MG Artificial Tears 1 drop Q6HP PRN EACHEYE 05/21/25 05:00 Examination: LUNGS:Normal, CVS:Normal, MSK:Abnormal laboratory and microbiology Laboratory Tests 05/21/25 05:48 05/21/25 03:13 Test 05/21/25 03:13 Range/Units Serum Glucose 114 H 74-106 mg/dL Microbiology Date/Time Source Procedure Growth Status 05/19/25 09:30 Voided Urine Urine Culture - Preliminary Resulted 05/19/25 09:30 Sputum Gram Stain Pending Resulted 05/19/25 09:30 Sputum Respiratory Culture - Preliminary Resulted 05/19/25 08:14 Blood Blood Culture - Preliminary NO GROWTH AFTER 48 HOURS OF INCUBATION. Resulted 05/17/25 13:29 Foot Left Gram Stain - Final Resulted 05/17/25 13:29 Foot Left Anaerobic Culture - Preliminary Resulted 05/17/25 13:29 Foot Left Aerobic Culture - Preliminary Resulted Problem List/Assessment/Plan Problem List/Assessment/Plan Acute kidney injury superimposed Chronic Kidney Disease stage IV secondary hemodynamic mediated, FeNa < 1% Chronic kidney disease stage IV followed by Dr. Ponce Gangrene left foot, status post left below-knee amputation 05/20 Left lower extremity DVT Diabetes mellitus type 2 Chronic diastolic Congestive heart failure NSTEMI Hyponatremia due to excess H2O Dropping hemoglobin Anemia due to blood loss Metabolic acidosis Septic shock History of testicular cancer Cellulitis lower extremity Recommendations Kidney function slightly worsened today Decreased urine output Strict I&Os kidney ultrasound reported bilateral small echogenic kidneys, no obstruction Fluid restrictions IV bicarb drip Bumex IV drip 1 mg/hr Low-dose dopamine IV pressors for Packed red blood cell transfusion p.r.n. IV fluid with bicarb We will continue to follow Plan discussed with: Patient My Orders My Orders Orders - QUOC QUINONEZ MD Procedure Category Date Status Time Sod Chl 0.45% PHA 05/20/25 In Process (Sodi... W/Sodium 19:45 Give Un-Diluted PHA 05/20/25 In Process (Gi... W/Bumetanide 19:45 Sodium Chl 0.9% PHA 05/20/25 In Process (So... W/Vasopressin 19:45 Glucose Blood PHA 05/21/25 In Process (Accu-Chek Comfort 00:00 Insulin R (Human) PHA 05/21/25 In Process (Insulin R) 00:00 Dextrose 50% Syringe PHA 05/20/25 In Process 19:45 Sodium Chl 0.9% PHA 05/21/25 In Process (Ns... 01:00 Renal Specific DIET 05/21/25 Transmitted Diet(Renal) Breakfast Dietary Evaluation Review Comments: 1) [facility] + cardiac diet 2) Armen 1 pk BID, MVI w/ minerals 1 tab daily, VitC 500mg BID, Zinc sulfate 220mg BID x 10 days 3) Monitor NPO status, lab values, weight trend, and I/O Expected Outcomes/Goals: To meet >75% estimated needs Wound to improve Fu 2-3 days QUOC QUINONEZ MD May 21, 2025 10:19
[2025-05-21] MEDS: BUMETANIDE INJECTION 25 MG in GIVE UN-DILUTED 0 ML IV SCH (10:30)
--- NOTE | 2025-05-21 10:46 | DVHPN2 ---
Progress Note - Dictate Date Seen: May 21, 2025 Medical Necessity Reason Pt with a Central, PICC or Fol: No vital signs Vital Sign Date Time Temp Pulse Resp B/P (MAP) Pulse Ox O2 Delivery O2 Flow Rate FiO2 05/21/25 10:23 101/60 05/21/25 09:13 96 Nasal Cannula* 3 32 05/21/25 06:45 93 13 05/21/25 04:00 96.8 96.8 Total Intake and Output 05/20/25 05/20/25 05/21/25 15:00 23:00 07:00 Intake Total 150 ml 706.74 ml 929 ml Output Total 0 ml 60 ml 50 ml Balance 150 ml 646.74 ml 879 ml medications Current Medications Medications Dose Ordered Sig/Bandar Route Start Time Stop Time Status Last Admin Dose Admin Acetaminophen 650 mg Q6HP PRN PO 05/04/25 15:00 Clopidogrel Bisulfate 75 mg DAILY PO 05/07/25 10:00 05/19/25 08:59 75 MG Enteral Nutritional Formula 240 ml TIDWM PO 05/08/25 12:00 05/19/25 17:22 240 ML Ascorbic Acid 500 mg DAILY PO 05/09/25 10:00 05/20/25 11:45 500 MG Zinc Sulfate 220 mg DAILY PO 05/09/25 10:00 05/20/25 11:45 220 MG Linezolid 300 ml @ 150 mls/hr Q12HR IV 05/16/25 22:00 05/21/25 10:08 150 MLS/HR Atorvastatin Calcium 40 mg HS PO 05/17/25 22:00 05/20/25 22:20 40 MG Meropenem 50 ml @ 17 mls/hr Q12H IV 05/19/25 11:00 05/20/25 23:00 17 MLS/HR Sodium Chloride 10 ml QSHIFT@10,22 IV 05/19/25 22:00 05/21/25 10:10 10 ML Midodrine 10 mg TID@0600,1200,1800 PO 05/19/25 18:00 05/21/25 05:35 10 MG Dopamine HCl/ Dextrose 250 ml @ 5.79 mls/hr Q24H IV 05/20/25 09:30 05/20/25 11:59 5.79 MLS/HR Diphenhydramine HCl 25 mg Q4HP PRN IV 05/20/25 09:30 Ondansetron HCl 4 mg Q4HP PRN IV 05/20/25 09:30 05/20/25 15:16 4 MG Sodium Bicarbonate 100 ml/Sodium Chloride 1,100 ml @ 100 mls/hr Q11H IV 05/20/25 19:45 05/21/25 07:36 100 MLS/HR Vasopressin 20 units/Sodium Chloride 100 ml @ 9 mls/hr Q11H7M IV 05/20/25 19:45 05/21/25 10:23 9 MLS/HR Diagnostic Test (Pha) 1 strip Q6HR 05/21/25 00:00 05/21/25 05:35 1 STRIP Insulin Human Regular Q6HR SC 05/21/25 00:00 05/21/25 00:26 2 UNITS Dextrose 50 ml UD PRN IV 05/20/25 19:45 Norepinephrine Bitartrate 32 mg/ Sodium Chloride 250 ml @ 0.938 mls/ hr Q24H IV 05/21/25 01:00 Pantoprazole Sodium 40 mg DAILY IV 05/21/25 10:00 05/21/25 10:08 40 MG Artificial Tears 1 drop Q6HP PRN EACHEYE 05/21/25 05:00 Bumetanide 25 mg/ Miscellaneous 100 ml @ 4 mls/hr Q24H IV 05/21/25 10:30 laboratory and microbiology Laboratory Tests 05/21/25 05:48 05/21/25 03:13 Test 05/21/25 03:13 Range/Units Serum Glucose 114 H 74-106 mg/dL Assessment/Plan C Consultant rounds 74-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 Patient has developed acute kidney injury transferred to the ICU for pressor support and possible hemodialysis. Notably previously on hospice Diagnoses Acute hypoxemic respiratory failure Atelectasis Fluid overload Pleural effusions Patient seen and examined in the ICU Currently on 2-3 L of oxygen Vital signs stable Labs reviewed Creatinine 3.6 Trending up minimal urine output Drips Vasopressin Bumex Management plan Continue supportive postop care Pain control Patient currently NPO May require nasogastric 4 medication administration Continue antibiotics Bronchodilators Aspiration precautions Consider thoracentesis May require dialysis we will follow-up Critical care time 35 minutes Dietary Evaluation Review Comments: 1) [facility] + cardiac diet 2) Armen 1 pk BID, MVI w/ minerals 1 tab daily, VitC 500mg BID, Zinc sulfate 220mg BID x 10 days 3) Monitor NPO status, lab values, weight trend, and I/O Expected Outcomes/Goals: To meet >75% estimated needs Wound to improve Fu 2-3 days Plan discussed with: Patient DELROY REDD MD May 21, 2025 10:46
[2025-05-21] MEDS: DEXMEDETOMIDINE HCL IN D5W 100 ML IV SCH (16:00)
[2025-05-21 16:25] LABS: Base Excess -15.0 mmol/L (-2.0-3.0)
--- NOTE | 2025-05-21 18:24 | DVHPN2 ---
Subjective Assuming the care of the patient from today onwards. Patient remains on high- flow oxygen, patient is status post left BKA. Changes from previous H/P or p: No Changes Objective Vitals Vital Signs Date Time Temp Pulse Resp B/P (MAP) Pulse Ox O2 Delivery O2 Flow Rate FiO2 05/21/25 18:16 85/55 05/21/25 18:00 99 Hi-Flow Heated NC+ 60 80 80 05/21/25 17:00 92 15 05/21/25 16:55 97.6 97.6 Intake/Output Intake and Output 05/21/25 07:00 Intake Total 1785.74 ml Output Total 110 ml Balance 1675.74 ml Intake Oral 0 ml IV Total 1785.74 ml Output Urine Total 110 ml Stool Total 0 ml Drainage Total 0 ml Exam HEENT pupils are reactive Neck is supple CV is S1-S2 regular rate and rhythm Respiratory bilateral diminished breath sounds bases GI positive bowel sound Extremity no edema [employer] no motor deficit. Medications Current Medications Medications Dose Ordered Sig/Bandar Route Start Time Stop Time Status Last Admin Dose Admin Acetaminophen 650 mg Q6HP PRN PO 05/04/25 15:00 Clopidogrel Bisulfate 75 mg DAILY PO 05/07/25 10:00 05/19/25 08:59 75 MG Enteral Nutritional Formula 240 ml TIDWM PO 05/08/25 12:00 05/19/25 17:22 240 ML Ascorbic Acid 500 mg DAILY PO 05/09/25 10:00 05/20/25 11:45 500 MG Zinc Sulfate 220 mg DAILY PO 05/09/25 10:00 05/20/25 11:45 220 MG Linezolid 300 ml @ 150 mls/hr Q12HR IV 05/16/25 22:00 05/21/25 10:08 150 MLS/HR Atorvastatin Calcium 40 mg HS PO 05/17/25 22:00 05/20/25 22:20 40 MG Meropenem 50 ml @ 17 mls/hr Q12H IV 05/19/25 11:00 05/20/25 23:00 17 MLS/HR Sodium Chloride 10 ml QSHIFT@10,22 IV 05/19/25 22:00 05/21/25 10:10 10 ML Midodrine 10 mg TID@0600,1200,1800 PO 05/19/25 18:00 05/21/25 05:35 10 MG Dopamine HCl/ Dextrose 250 ml @ 5.79 mls/hr Q24H IV 05/20/25 09:30 05/20/25 11:59 5.79 MLS/HR Diphenhydramine HCl 25 mg Q4HP PRN IV 05/20/25 09:30 Ondansetron HCl 4 mg Q4HP PRN IV 05/20/25 09:30 05/20/25 15:16 4 MG Sodium Bicarbonate 100 ml/Sodium Chloride 1,100 ml @ 100 mls/hr Q11H IV 05/20/25 19:45 05/21/25 17:21 100 MLS/HR Vasopressin 20 units/Sodium Chloride 100 ml @ 9 mls/hr Q11H7M IV 05/20/25 19:45 05/21/25 10:23 9 MLS/HR Diagnostic Test (Pha) 1 strip Q6HR 05/21/25 00:00 05/21/25 17:27 1 STRIP Insulin Human Regular Q6HR SC 05/21/25 00:00 05/21/25 00:26 2 UNITS Dextrose 50 ml UD PRN IV 05/20/25 19:45 Norepinephrine Bitartrate 32 mg/ Sodium Chloride 250 ml @ 0.938 mls/ hr Q24H IV 05/21/25 01:00 Pantoprazole Sodium 40 mg DAILY IV 05/21/25 10:00 05/21/25 10:08 40 MG Artificial Tears 1 drop Q6HP PRN EACHEYE 05/21/25 05:00 Bumetanide 25 mg/ Miscellaneous 100 ml @ 4 mls/hr Q24H IV 05/21/25 10:30 05/21/25 18:16 4 MLS/HR Laboratory Results Laboratory Tests 05/21/25 03:13 05/21/25 05:48 Chemistry Test 05/21/25 03:13 Albumin 2.6 g/dL (3.2-4.8) L Calcium Level 7.7 mg/dL (8.7-10.4) L Total Protein 5.4 g/dL (5.7-8.2) L Coagulation Test 05/21/25 08:28 Prothrombin Time 12.4 sec (9.3-11.8) H Prothrombin Time INR 1.19 (0.9-1.15) H Activated Partial Thromboplast Time 33.1 SEC (24.5-34.5) LFT Test 05/21/25 03:13 Alanine Aminotransferase (ALT) 224 U/L (7-40) H Alkaline Phosphatase 276 U/L (46-116) H Aspartate Amino Transferase (AST) 157 U/L (13-40) H Total Bilirubin 0.4 mg/dL (0.2-1.0) Urinalysis Test 05/16/25 15:18 05/20/25 01:02 Urine Hyaline Casts Few /lpf (0 - 2) Urine Mucus Few (None Seen) Urine Yeast (Budding) Many /hpf (None Seen) Urine Osmolality 359 mOsm/kg Urine Creatinine 122.44 mg/dL (30.0-125.0) Urine Protein/Creatinine Ratio 1.06 Urine Sodium 17 mmol/L (40-220) L Urine Total Protein 130.0 mg/dL (1-14) H Urine Color Dark yellow (Yellow) Urine Clarity Ex.turbid (Clear) Urine pH 5.5 (5.0-9.0) Urine Specific [place] 1.013 (1.001-1.035) Urine Protein 1+ (Negative) H Urine Ketones Negative (Negative) Urine Blood 1+ /uL (Negative) H Urine Nitrite Negative (Negative) Urine Bilirubin Negative (Negative) Urine Urobilinogen Normal mg/dL (Negative) Urine Leukocyte Esterase 3+ /uL (Negative) Urine RBC 62 /hpf (0 - 3) Urine WBC Clumps Present /hpf (None Seen) Urine Microscopic WBC 2744 /HPF (0-3) H Urine Squamous Epithelial Cells None seen /hpf (<5) Urine Bacteria None seen /hpf (None Seen) Urine Glucose Normal mg/dL (Normal) Blood Gas Results Test 05/21/25 16:20 Arterial Blood pH 7.230 (7.350-7.450) FiO2 % 100.0 Microbiology Microbiology Date/Time Source Procedure Growth Status 05/20/25 18:09 Nose MRSA Screen - Final Complete 05/19/25 09:30 Voided Urine Urine Culture - Final Complete 05/19/25 09:30 Sputum Gram Stain Pending Resulted 05/19/25 09:30 Respiratory Culture - Final Enterobacter cloacae Pseudomonas aeruginosa Resulted 05/19/25 08:14 Blood Blood Culture - Preliminary NO GROWTH AFTER 48 HOURS OF INCUBATION. Resulted Assessment/Plan Assessment/Plan 74-year-old male with a known history of coronary artery disease with a triple- vessel disease, no CABG was done because of refusal of patient's, hypertension, diabetes mellitus type 2, dyslipidemia, history of testicular cancer who initially presented to the hospital with a left diabetic foot wound found to have 1. Acute hypoxic respiratory failure currently on high-flow oxygen 2. Bilateral pleural effusion 3. Sepsis secondary to left foot osteomyelitis 3. Peripheral vascular disease status post peripheral angiogram with angioplasty of the left superficial femoral artery on05/06 4. Left diabetic foot wound status post I and D status post amputation of the left hallux, left 4th and 5th toe on05/17 5. Status post left below-knee amputation on05/20 6. Coronary artery disease with a triple-vessel disease 7. Hypertension 8. Diabetes mellitus 9. History of testicle cancer -patient is status post right thoracentesis, continue high-flow oxygen, continue broad-spectrum IV antibiotics Pulmonary follow up. Plan discussed with: Patient Date of Service: May 21, 2025 Billing Provider: ANDERW DIAMOND MD Common Visit Codes: [id number] INP/OBS CARE(HIGH) ANDREW DIAMOND MD May 21, 2025 18:24
[2025-05-21 22:16] LABS: Hematocrit 27.5 % (41.0-53.0); Hemoglobin 9.5 g/dL (13.5-17.5); Mean Corpuscular Hemoglobin 33.4 pg (28.0-32.0); Mean Corpuscular Volume 96.5 fL (80.0-100.0); Nucleated Red Blood Cells % 0.1 %
[2025-05-22] VITALS (102 sets, daily range): BP systolic 85–117; BP diastolic 20–66; PULSE 81–93; RESP 11–20; TEMP 96.8–97.7; O2SAT 92–97
[2025-05-22 08:57] LABS: Base Excess -16.3 mmol/L (-2.0-3.0)
--- NOTE | 2025-05-22 09:44 | MEDREC ---
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
[2025-05-22] MEDS: ALBUMIN 25% 100 ML IV ONE ×2 (10:53→10:54)
[2025-05-22] MEDS: SODIUM BICARB 50mEq/50ml Vial 150 ML in D5W 5% 1,000 ML IV SCH ×2 (11:29→12:45)
--- NOTE | 2025-05-22 12:42 | DVHPN2 ---
Progress Note Date Seen: May 22, 2025 Medical Necessity Reason Pt with a Central, PICC or Fol: No Subjective Review of Systems: RESPIRATORY:Abnormal Other Systems: Patient seen and examined by myself today in follow-up , patient on high flow nasal cannula Objective vital signs Vital Sign Date Time Temp Pulse Resp B/P (MAP) Pulse Ox O2 Delivery O2 Flow Rate FiO2 05/22/25 11:30 108/55 05/22/25 10:09 85 15 95 40.0 40 05/22/25 10:00 Hi-Flow Heated NC+ 05/22/25 04:00 97.3 97.3 Total Intake and Output 05/21/25 05/21/25 05/22/25 15:00 23:00 07:00 Intake Total 1308 ml 2369 ml 1028 ml Output Total 40 ml 50 ml Balance 1308 ml 2329 ml 978 ml medications Current Medications Medications Dose Ordered Sig/Bandar Route Start Time Stop Time Status Last Admin Dose Admin Acetaminophen 650 mg Q6HP PRN PO 05/04/25 15:00 Clopidogrel Bisulfate 75 mg DAILY PO 05/07/25 10:00 05/19/25 08:59 75 MG Enteral Nutritional Formula 240 ml TIDWM PO 05/08/25 12:00 05/19/25 17:22 240 ML Ascorbic Acid 500 mg DAILY PO 05/09/25 10:00 05/20/25 11:45 500 MG Zinc Sulfate 220 mg DAILY PO 05/09/25 10:00 05/20/25 11:45 220 MG Linezolid 300 ml @ 150 mls/hr Q12HR IV 05/16/25 22:00 05/22/25 09:19 150 MLS/HR Atorvastatin Calcium 40 mg HS PO 05/17/25 22:00 05/20/25 22:20 40 MG Meropenem 50 ml @ 17 mls/hr Q12H IV 05/19/25 11:00 05/22/25 11:28 17 MLS/HR Sodium Chloride 10 ml QSHIFT@10,22 IV 05/19/25 22:00 05/22/25 09:19 10 ML Midodrine 10 mg TID@0600,1200,1800 PO 05/19/25 18:00 05/21/25 05:35 10 MG Dopamine HCl/ Dextrose 250 ml @ 5.79 mls/hr Q24H IV 05/20/25 09:30 05/20/25 11:59 5.79 MLS/HR Diphenhydramine HCl 25 mg Q4HP PRN IV 05/20/25 09:30 Ondansetron HCl 4 mg Q4HP PRN IV 05/20/25 09:30 05/20/25 15:16 4 MG Vasopressin 20 units/Sodium Chloride 100 ml @ 9 mls/hr Q11H7M IV 05/20/25 19:45 05/22/25 02:01 9 MLS/HR Diagnostic Test (Pha) 1 strip Q6HR 05/21/25 00:00 05/22/25 05:52 1 STRIP Insulin Human Regular Q6HR SC 05/21/25 00:00 05/21/25 00:26 2 UNITS Dextrose 50 ml UD PRN IV 05/20/25 19:45 Norepinephrine Bitartrate 32 mg/ Sodium Chloride 250 ml @ 0.938 mls/ hr Q24H IV 05/21/25 01:00 Pantoprazole Sodium 40 mg DAILY IV 05/21/25 10:00 05/22/25 09:19 40 MG Artificial Tears 1 drop Q6HP PRN EACHEYE 05/21/25 05:00 Bumetanide 25 mg/ Miscellaneous 100 ml @ 4 mls/hr Q24H IV 05/21/25 10:30 05/21/25 18:16 4 MLS/HR Sodium Bicarbonate 150 ml/Dextrose 1,150 ml @ 120 mls/hr Q9H35M IV 05/22/25 09:45 05/22/25 11:29 120 MLS/HR Examination: LUNGS:Normal, CVS:Normal, MSK:Abnormal laboratory and microbiology Laboratory Tests 05/21/25 22:03 05/21/25 03:13 Test 05/21/25 03:13 Range/Units Serum Glucose 114 H 74-106 mg/dL Microbiology Date/Time Source Procedure Growth Status 05/20/25 18:09 Nose MRSA Screen - Final Complete 05/20/25 01:02 Urine - [place] Urine Culture - Preliminary Resulted 05/19/25 09:30 Sputum Gram Stain Pending Resulted 05/19/25 09:30 Respiratory Culture - Final Enterobacter cloacae Pseudomonas aeruginosa Resulted 05/19/25 08:14 Blood Blood Culture - Preliminary NO GROWTH AFTER 72 HOURS OF INCUBATION. Resulted Problem List/Assessment/Plan Problem List/Assessment/Plan Acute kidney injury superimposed Chronic Kidney Disease stage IV secondary hemodynamic mediated, FeNa < 1% Chronic kidney disease stage IV followed by Dr. Ponce Gangrene left foot, status post left below-knee amputation 05/20 Left lower extremity DVT Diabetes mellitus type 2 Chronic diastolic Congestive heart failure NSTEMI Hyponatremia due to excess H2O Dropping hemoglobin Anemia due to blood loss Metabolic acidosis Septic shock History of testicular cancer Cellulitis lower extremity Recommendations Kidney function slightly worsened today Patient remained oliguric Strict I&Os kidney ultrasound reported bilateral small echogenic kidneys, no obstruction Fluid restrictions IV bicarb drip ^Bumex IV drip 1 mg/hr Low-dose dopamine IV pressors for Packed red blood cell transfusion p.r.n. We will continue to follow closely and monitor for need for hemodialysis on a daily basis Plan discussed with: Patient My Orders My Orders Orders - QUOC QUINONEZ MD Procedure Category Date Status Time D5w 5% (Dextrose 5%) PHA 05/22/25 In Process W/Sodium Bicarb 50m 09:45 Dietary Evaluation Review Comments: 1) [facility] cardiac diet 2) Armen 1 pk BID, MVI w/ minerals 1 tab daily, VitC 500mg BID, Zinc sulfate 220mg BID x 10 days 3) Monitor NPO status, lab values, weight trend, and I/O Expected Outcomes/Goals: To meet >75% estimated needs Wound to improve Fu 2-3 days QUOC QUINONEZ MD May 22, 2025 12:41
--- NOTE | 2025-05-22 13:27 | DVH ---
EXAM: XY CHEST PORTABLE HISTORY: S/P RIGHT THORACENTESIS TECHNIQUE: 1 view of the chest COMPARISON: XY CHEST PORTABLE on DOS: 05/21/25 FINDINGS/IMPRESSION: LUNGS: Small to medium persistent left-sided pleural effusion. Interval decreased right-sided pleura l effusion now with trace atelectasis. Central pulmonary vascular congestion, decreased from prior. MEDIASTINUM: Mild to moderate cardiomegaly BONES: No acute osseous abnormality OTHER: Left-sided at the cavoatrial junction
[2025-05-22] MEDS: LIDOCAINE 1% (LOCAL ANESTH.) PF 5ml SDV ID ONE (14:00)
--- NOTE | 2025-05-22 14:23 | DVHPN2 ---
Progress Note - Dictate Date Seen: May 22, 2025 Medical Necessity Reason Pt with a Central, PICC or Fol: No vital signs Vital Sign Date Time Temp Pulse Resp B/P (MAP) Pulse Ox O2 Delivery O2 Flow Rate FiO2 05/22/25 14:00 15 96 Hi-Flow Heated NC+ 45 45 45 05/22/25 14:00 83 05/22/25 11:30 108/55 05/22/25 04:00 97.3 97.3 Total Intake and Output 05/21/25 05/21/25 05/22/25 15:00 23:00 07:00 Intake Total 1308 ml 2369 ml 1028 ml Output Total 40 ml 50 ml Balance 1308 ml 2329 ml 978 ml medications Current Medications Medications Dose Ordered Sig/Bandar Route Start Time Stop Time Status Last Admin Dose Admin Acetaminophen 650 mg Q6HP PRN PO 05/04/25 15:00 Clopidogrel Bisulfate 75 mg DAILY PO 05/07/25 10:00 05/19/25 08:59 75 MG Enteral Nutritional Formula 240 ml TIDWM PO 05/08/25 12:00 05/19/25 17:22 240 ML Ascorbic Acid 500 mg DAILY PO 05/09/25 10:00 05/20/25 11:45 500 MG Zinc Sulfate 220 mg DAILY PO 05/09/25 10:00 05/20/25 11:45 220 MG Linezolid 300 ml @ 150 mls/hr Q12HR IV 05/16/25 22:00 05/22/25 09:19 150 MLS/HR Atorvastatin Calcium 40 mg HS PO 05/17/25 22:00 05/20/25 22:20 40 MG Meropenem 50 ml @ 17 mls/hr Q12H IV 05/19/25 11:00 05/22/25 11:28 17 MLS/HR Sodium Chloride 10 ml QSHIFT@10,22 IV 05/19/25 22:00 05/22/25 09:19 10 ML Midodrine 10 mg TID@0600,1200,1800 PO 05/19/25 18:00 05/21/25 05:35 10 MG Dopamine HCl/ Dextrose 250 ml @ 5.79 mls/hr Q24H IV 05/20/25 09:30 05/20/25 11:59 5.79 MLS/HR Diphenhydramine HCl 25 mg Q4HP PRN IV 05/20/25 09:30 Ondansetron HCl 4 mg Q4HP PRN IV 05/20/25 09:30 05/20/25 15:16 4 MG Vasopressin 20 units/Sodium Chloride 100 ml @ 9 mls/hr Q11H7M IV 05/20/25 19:45 05/22/25 02:01 9 MLS/HR Diagnostic Test (Pha) 1 strip Q6HR 05/21/25 00:00 05/22/25 05:52 1 STRIP Insulin Human Regular Q6HR SC 05/21/25 00:00 05/21/25 00:26 2 UNITS Dextrose 50 ml UD PRN IV 05/20/25 19:45 Norepinephrine Bitartrate 32 mg/ Sodium Chloride 250 ml @ 0.938 mls/ hr Q24H IV 05/21/25 01:00 Pantoprazole Sodium 40 mg DAILY IV 05/21/25 10:00 05/22/25 09:19 40 MG Artificial Tears 1 drop Q6HP PRN EACHEYE 05/21/25 05:00 Bumetanide 25 mg/ Miscellaneous 100 ml @ 4 mls/hr Q24H IV 05/21/25 10:30 05/21/25 18:16 4 MLS/HR Sodium Bicarbonate 150 ml/Dextrose 1,150 ml @ 120 mls/hr Q9H35M IV 05/22/25 12:45 laboratory and microbiology Laboratory Tests 05/21/25 22:03 05/21/25 03:13 Test 05/21/25 03:13 Range/Units Serum Glucose 114 H 74-106 mg/dL Assessment/Plan 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 Patient has developed acute kidney injury transferred to the ICU for pressor support and possible hemodialysis. Notably previously on hospice Diagnoses Acute hypoxemic respiratory failure Atelectasis Fluid overload Pleural effusions Patient seen and examined in the ICU Events High oxygen requirements On high flow 45% Respiratory status tenuous Requires Precedex drip for agitation and delirium Labs and imaging reviewed Chest x-ray shows moderate bilateral pleural effusions, greater on the right Subsequently thoracentesis was performed at the bedside 1.1 liters drained from the right pleural space, see separate note for procedure in detail Management plan Continue supportive postop care Pain control Patient currently NPO May require nasogastric 4 medication administration Continue antibiotics Bronchodilators Aspiration precautions May require dialysis we will follow-up Pressors as needed for hemodynamic support To maintain a mean arterial pressure of 65 mmHg Critical care time 35 minutes Dietary Evaluation Review Comments: 1) Advance to [facility] 75gm + cardiac diet 2) Armen 1 pk BID, MVI w/ minerals 1 tab daily, VitC 500mg BID, Zinc sulfate 220mg BID x 10 days 3) Monitor NPO status, lab values, weight trend, and I/O Expected Outcomes/Goals: To meet >75% estimated needs Wound to improve Fu 2-3 days Plan discussed with: Other (Rn) DELROY REDD MD May 22, 2025 14:23
--- NOTE | 2025-05-22 14:24 | DVHNC2 ---
Procedure - Procedure- Right sided Thoracentesis ultrasound guided Indication- Pleural effusions Procedure in detail Consent was obtained and timeout performed per protocol. The patient was placed in the sitting position and ultrasound SonoSite was used to localize pleural fluid. ChloraPrep was used to clean the operative field and Lidocaine for local analgesia. Thoracentesis catheter was advanced over the needle, attached to the suction bottle and approximately 1.1 liters of colorless fluid was drained from the right pleural space. At the end of the procedure, the catheter was removed and dressing applied. Samples obtained for diagnostic testing. Chest-x ray ordered. No complications DELROY REDD MD May 22, 2025 14:24
[2025-05-22] MEDS ORDERED: TPN PER PHARMACY 0 ML IV SCH (15:00)
--- NOTE | 2025-05-22 15:03 | DVHPN2 ---
Subjective Patient is status post right thoracentesis., patient's remains on high-flow oxygen Changes from previous H/P or p: No Changes Objective Vitals Vital Signs Date Time Temp Pulse Resp B/P (MAP) Pulse Ox O2 Delivery O2 Flow Rate FiO2 05/22/25 14:00 15 96 Hi-Flow Heated NC+ 45 45 45 05/22/25 14:00 83 05/22/25 12:45 91/47 (62) 05/22/25 12:00 96.8 96.8 Intake/Output Intake and Output 05/22/25 07:00 Intake Total 4705 ml Output Total 90 ml Balance 4615 ml Intake Oral 0 ml IV Total 3040 ml Blood Product 1265 ml Other 400 ml Output Urine Total 90 ml Stool Total 0 ml # Bowel Movements 1 Exam HEENT pupils are reactive Neck is supple CV is S1-S2 regular rate and rhythm Respiratory bilateral diminished breath sounds bases GI positive bowel sound Extremity no edema 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 Medications Current Medications Medications Dose Ordered Sig/Bandar Route Start Time Stop Time Status Last Admin Dose Admin Acetaminophen 650 mg Q6HP PRN PO 05/04/25 15:00 Clopidogrel Bisulfate 75 mg DAILY PO 05/07/25 10:00 05/19/25 08:59 75 MG Enteral Nutritional Formula 240 ml TIDWM PO 05/08/25 12:00 05/19/25 17:22 240 ML Ascorbic Acid 500 mg DAILY PO 05/09/25 10:00 05/20/25 11:45 500 MG Zinc Sulfate 220 mg DAILY PO 05/09/25 10:00 05/20/25 11:45 220 MG Linezolid 300 ml @ 150 mls/hr Q12HR IV 05/16/25 22:00 05/22/25 09:19 150 MLS/HR Atorvastatin Calcium 40 mg HS PO 05/17/25 22:00 05/20/25 22:20 40 MG Meropenem 50 ml @ 17 mls/hr Q12H IV 05/19/25 11:00 05/22/25 11:28 17 MLS/HR Sodium Chloride 10 ml QSHIFT@10,22 IV 05/19/25 22:00 05/22/25 09:19 10 ML Midodrine 10 mg TID@0600,1200,1800 PO 05/19/25 18:00 05/21/25 05:35 10 MG Dopamine HCl/ Dextrose 250 ml @ 5.79 mls/hr Q24H IV 05/20/25 09:30 05/20/25 11:59 5.79 MLS/HR Diphenhydramine HCl 25 mg Q4HP PRN IV 05/20/25 09:30 Ondansetron HCl 4 mg Q4HP PRN IV 05/20/25 09:30 05/20/25 15:16 4 MG Vasopressin 20 units/Sodium Chloride 100 ml @ 9 mls/hr Q11H7M IV 05/20/25 19:45 05/22/25 02:01 9 MLS/HR Diagnostic Test (Pha) 1 strip Q6HR 05/21/25 00:00 05/22/25 14:20 1 STRIP Insulin Human Regular Q6HR SC 05/21/25 00:00 05/21/25 00:26 2 UNITS Dextrose 50 ml UD PRN IV 05/20/25 19:45 Norepinephrine Bitartrate 32 mg/ Sodium Chloride 250 ml @ 0.938 mls/ hr Q24H IV 05/21/25 01:00 Pantoprazole Sodium 40 mg DAILY IV 05/21/25 10:00 05/22/25 09:19 40 MG Artificial Tears 1 drop Q6HP PRN EACHEYE 05/21/25 05:00 Bumetanide 25 mg/ Miscellaneous 100 ml @ 4 mls/hr Q24H IV 05/21/25 10:30 05/21/25 18:16 4 MLS/HR Sodium Bicarbonate 150 ml/Dextrose 1,150 ml @ 120 mls/hr Q9H35M IV 05/22/25 12:45 Amino Acids 0 ml @ 0 mls/hr PER PHARMACY IV 05/22/25 15:00 UNV Laboratory Results Laboratory Tests 05/21/25 03:13 05/21/25 22:03 Urinalysis Test 05/16/25 15:18 05/20/25 01:02 Urine Hyaline Casts Few /lpf (0 - 2) Urine Mucus Few (None Seen) Urine Yeast (Budding) Many /hpf (None Seen) Urine Osmolality 359 mOsm/kg Urine Creatinine 122.44 mg/dL (30.0-125.0) Urine Protein/Creatinine Ratio 1.06 Urine Sodium 17 mmol/L (40-220) L Urine Total Protein 130.0 mg/dL (1-14) H Urine Color Dark yellow (Yellow) Urine Clarity Ex.turbid (Clear) Urine pH 5.5 (5.0-9.0) Urine Specific [place] 1.013 (1.001-1.035) Urine Protein 1+ (Negative) H Urine Ketones Negative (Negative) Urine Blood 1+ /uL (Negative) H Urine Nitrite Negative (Negative) Urine Bilirubin Negative (Negative) Urine Urobilinogen Normal mg/dL (Negative) Urine Leukocyte Esterase 3+ /uL (Negative) Urine RBC 62 /hpf (0 - 3) Urine WBC Clumps Present /hpf (None Seen) Urine Microscopic WBC 2744 /HPF (0-3) H Urine Squamous Epithelial Cells None seen /hpf (<5) Urine Bacteria None seen /hpf (None Seen) Urine Glucose Normal mg/dL (Normal) Blood Gas Results Test 05/21/25 16:20 05/22/25 08:52 Arterial Blood pH 7.230 (7.350-7.450) 7.250 (7.350-7.450) FiO2 % 100.0 50.0 Microbiology Microbiology Date/Time Source Procedure Growth Status 05/20/25 18:09 Nose MRSA Screen - Final Complete 05/20/25 01:02 Urine - [place] Urine Culture - Preliminary Resulted 05/19/25 09:30 Sputum Gram Stain Pending Resulted 05/19/25 09:30 Respiratory Culture - Final Enterobacter cloacae Pseudomonas aeruginosa Resulted 05/19/25 08:14 Blood Blood Culture - Preliminary NO GROWTH AFTER 72 HOURS OF INCUBATION. Resulted Assessment/Plan Assessment/Plan 74-year-old male with a known history of coronary artery disease with a triple- vessel disease, no CABG was done because of refusal of patient's, hypertension, diabetes mellitus type 2, dyslipidemia, history of testicular cancer who initially presented to the hospital with a left diabetic foot wound found to have 1. Acute hypoxic respiratory failure currently on high-flow oxygen 2. Bilateral pleural effusion status post right thoracentesis 3. Sepsis secondary to left foot osteomyelitis 3. Peripheral vascular disease status post peripheral angiogram with angioplasty of the left superficial femoral artery on05/06 4. Left diabetic foot wound status post I and D status post amputation of the left hallux, left 4th and 5th toe on05/17 5. Status post left below-knee amputation on05/20 6. Coronary artery disease with a triple-vessel disease 7. Hypertension 8. Diabetes mellitus 9. History of testicle cancer -patient is status post right thoracentesis, continue high-flow oxygen, continue broad-spectrum IV antibiotics Pulmonary follow up. Plan discussed with: Patient My Orders Orders - ANDREW DIAMOND MD Procedure Category Date Status Time * Swallow Request ST 05/22/25 Transmitted 09:49 Comprehensive LAB 05/23/25 Verified Metabolic Panel 04:00 Complete Blood Count LAB 05/23/25 Verified 04:00 Chest Portable XY 05/23/25 Logged 04:00 Tpn Per Pharmacy PHA 05/22/25 Logged 15:00 *Consult CONS 05/22/25 Transmitted / 14:57 Date of Service: May 22, 2025 Billing Provider: ANDREW DIAMOND MD Common Visit Codes: [id number] INP/OBS CARE(HIGH) ANDREW DIAMOND MD May 22, 2025 15:03
[2025-05-22] MEDS: AMINO ACID INFUSION IN D10W 1,000 ML IV SCH (20:56)
[2025-05-22] MEDS: ACCU-CHEK COMFORT CURVE STRIP VI SCH (23:04)
[2025-05-22] MEDS: InsuLIN REG 1unit/0.01ml Soln (100units/ml) SC SCH (23:08)
[2025-05-23] VITALS (61 sets, daily range): BP systolic 90–126; BP diastolic 43–66; PULSE 72–99; RESP 13–20; TEMP 96.8–98.2; O2SAT 89–100
[2025-05-23 04:41] LABS: Hemoglobin 8.0 g/dL (13.5-17.5); Mean Corpuscular Volume 98.7 fL (80.0-100.0)
[2025-05-23 04:44] LABS: Hematocrit 23.3 % (41.0-53.0); Mean Corpuscular Hemoglobin 33.7 pg (28.0-32.0); Nucleated Red Blood Cells % 0.0 %
[2025-05-23 04:45] LABS: Magnesium 1.7 mg/dL (1.6-2.6)
--- NOTE | 2025-05-23 05:06 | DVH ---
CHEST RADIOGRAPH Indication: RESPIRATORY FAILURE Technique: Single frontal view of the chest was obtained COMPARISON: XY CHEST PORTABLE on DOS: 05/22/25, XY CHEST PORTABLE on DOS: 05/21/25, XY CHEST PORTABLE o n DOS: 05/20/25, XY CHEST XRAY 1 VIEW on DOS: 05/19/25, XY CHEST PORTABLE on DOS: 05/17/25 FINDINGS: Lines and Tubes: Left PICC in satisfactory position overlying the superior vena cava. Lungs: Multifocal airspace disease. Pleura: No effusion. No pneumothorax. Cardiomediastinal contours: Cardiomegaly Bones: Unremarkable IMPRESSION: No significant interval change.
[2025-05-23 05:20] LABS: Triglycerides 46.0 mg/dL (< 150)
[2025-05-23 05:51] LABS: Anion Gap 25 (5-15); BUN/Creatinine Ratio 17.1 (10.0-20.0); Potassium 3.6 mmol/L (3.5-5.1)
[2025-05-23 05:52] LABS: Alanine Aminotransferase 777 U/L (7-40); Albumin 2.7 g/dL (3.2-4.8); Alkaline Phosphatase 367 U/L (46-116); Bilirubin, Total 2.2 mg/dL (0.2-1.0); Blood Urea Nitrogen 72 mg/dL (9-23); Calcium 7.0 mg/dL (8.7-10.4); Carbon Dioxide 18 mmol/L (20-31); Chloride 86 mmol/L (98-107); Glucose 226 mg/dL (74-106); Sodium 129 mmol/L (136-145); Total Protein 5.1 g/dL (5.7-8.2)
[2025-05-23 07:05] LABS: Base Excess -7.0 mmol/L (-2.0-3.0)
--- NOTE | 2025-05-23 10:06 | DVHPNRES ---
Progress Note Date Seen: May 23, 2025 Resident Creating Document: DANA MERCADO RESIDENT Medical Necessity Reason Pt with a Central, PICC or Fol: No Subjective Review of Systems Osmel Joy 74-year-old male who presents to the ER with a history of left leg purple discoloration since last 3 days. He denies any chest pain, shortness of breath, abdominal pain or any other complaints today. The patient was admitted at [facility] in February, during the time the patient underwent debridements of the right foot. The patient is not taking Eliquis due to bruising, his home health hospice nurse advised him to stop Eliquis. Past medical history: Hypertension, diabetes, dyslipidemia, CAD severe triple- vessel disease non revascularized due to patient's refusal of CABG, testicular cancer, CKD on stage III, diabetic peripheral neuropathy, left lower extremity DVT, PAD, diabetic foot s/p toe amputation, bed bound for 3 months, spina bifida. Was on hospice, but revoked for this admission. Past surgical history: Tonsillectomy, debridement of necrotic right toe. Family history: Noncontributory Social history: Lives in [place] with son (CHALO). Denies tobacco, alcohol and other drug abuse Allergies: No known allergy Home medications: Apixaban, linezolid, pantoprazole, atorvastatin, carvedilol, tamsulosin, amlodipine, aspirin, hydrocodone acetaminophen, rifampin PCP: Dr. Avendano Patient seen and examined at bedside. Patient presents septic shock we will requirement of multiple IV vasopressors, worsening kidney function, acute respiratory failure, anuria and metabolic encephalopathy. Patient currently altered, removes BiPAP machine. Have discussed with patient and son, plan to perform endotracheal intubation in place hemodialysis catheter. Patient has poor prognosis Objective vital signs Vital Sign Date Time Temp Pulse Resp B/P (MAP) Pulse Ox O2 Delivery O2 Flow Rate FiO2 05/23/25 09:58 84 20 91 50.0 55 05/23/25 06:45 118/55 (76) 05/23/25 06:00 Hi-Flow Heated NC+ 05/23/25 04:00 97.4 97.4 Total Intake and Output 05/22/25 05/22/25 05/23/25 15:00 23:00 07:00 Intake Total 1322 ml 1389 ml 1160 ml Output Total 30 ml 30 ml Balance 1322 ml 1359 ml 1130 ml medications Current Medications Medications Dose Ordered Sig/Bandar Route Start Time Stop Time Status Last Admin Dose Admin Acetaminophen 650 mg Q6HP PRN PO 05/04/25 15:00 Clopidogrel Bisulfate 75 mg DAILY PO 05/07/25 10:00 05/19/25 08:59 75 MG Enteral Nutritional Formula 240 ml TIDWM PO 05/08/25 12:00 05/19/25 17:22 240 ML Linezolid 300 ml @ 150 mls/hr Q12HR IV 05/16/25 22:00 05/22/25 20:51 150 MLS/HR Atorvastatin Calcium 40 mg HS PO 05/17/25 22:00 05/20/25 22:20 40 MG Meropenem 50 ml @ 17 mls/hr Q12H IV 05/19/25 11:00 05/23/25 09:32 17 MLS/HR Sodium Chloride 10 ml QSHIFT@10,22 IV 05/19/25 22:00 05/23/25 09:32 10 ML Midodrine 10 mg TID@0600,1200,1800 PO 05/19/25 18:00 05/21/25 05:35 10 MG Dopamine HCl/ Dextrose 250 ml @ 5.79 mls/hr Q24H IV 05/20/25 09:30 05/20/25 11:59 5.79 MLS/HR Diphenhydramine HCl 25 mg Q4HP PRN IV 05/20/25 09:30 Ondansetron HCl 4 mg Q4HP PRN IV 05/20/25 09:30 05/23/25 07:42 4 MG Vasopressin 20 units/Sodium Chloride 100 ml @ 9 mls/hr Q11H7M IV 05/20/25 19:45 05/22/25 02:01 9 MLS/HR Norepinephrine Bitartrate 32 mg/ Sodium Chloride 250 ml @ 0.938 mls/ hr Q24H IV 05/21/25 01:00 Pantoprazole Sodium 40 mg DAILY IV 05/21/25 10:00 05/23/25 09:32 40 MG Artificial Tears 1 drop Q6HP PRN EACHEYE 05/21/25 05:00 Bumetanide 25 mg/ Miscellaneous 100 ml @ 4 mls/hr Q24H IV 05/21/25 10:30 05/23/25 05:12 4 MLS/HR Amino Acids 0 ml @ 0 mls/hr PER PHARMACY IV 05/22/25 15:00 Diagnostic Test (Pha) 1 strip Q6HR 05/23/25 00:00 05/23/25 05:19 1 STRIP Insulin Human Regular FOLLOW SLIDING SCALE Q6HR SC 05/23/25 00:00 05/23/25 05:19 8 UNITS Dextrose 50 ml UD IV 05/22/25 22:00 Amino Acids/ Electrolytes/ Dextrose 1,000 ml @ 41 mls/hr DAILY@2200 IV 05/22/25 22:00 05/22/25 20:56 41 MLS/HR Fat Emulsion Intravenous 50 ml/ Sodium Chloride 20 meq/Potassium Acetate 20 meq/ Calcium Gluconate 6.9 meq/Magnesium Sulfate 2 meq/ Multivitamins 10 ml/Insulin Human Regular 10 units/ Amino Acids/ Dextrose 890.4387 ml @ 37 mls/hr Q24H4M IV 05/23/25 22:00 05/24/25 21:59 Examination Patient lying in bed, in mild acute distress General: Confused, somnolent, afebrile, mucosae are moist. Cardiovascular: Normal S1 and S2. No murmurs, gallops or rubs Respiratory: Regular ventilation mechanics. Bibasilar crackles, apices are clear. On BiPAP machine Abdomen: Soft, nontender, no organomegaly, normal bowel sounds MSK/skin: Mobilizes 4 limbs. Skin is dry and warm. [id number] amputation of left limb, has two drains with mild hematic secretion Neurological: Oriented in 1 spheres (self). No motor no sensitive deficits. Pupils are isocoric and reactive laboratory and microbiology Laboratory Tests 05/23/25 05:08 05/23/25 03:30 Test 05/23/25 05:08 Range/Units Serum Glucose 226 #H 74-106 mg/dL Microbiology Date/Time Source Procedure Growth Status 05/20/25 18:09 Nose MRSA Screen - Final Complete 05/20/25 01:02 Urine - [place] Urine Culture - Preliminary Yeast, not Dulce albicans Resulted 05/19/25 09:30 Sputum Gram Stain - Final Complete 05/19/25 09:30 Respiratory Culture - Final Enterobacter cloacae Pseudomonas aeruginosa Complete 05/19/25 08:14 Blood Blood Culture - Preliminary NO GROWTH AFTER 72 HOURS OF INCUBATION. Resulted Problem List/Assessment/Plan Problem List/Assessment/Plan # Metabolic encephalopathy secondary to septic shock Planning on endotracheal intubation. Have discussed with patient and son # Acute respiratory failure secondary to cardiorenal syndrome # Cardiorenal syndrome probable type 3 # Acute on chronic diastolic congestive heart failure On BiPAP machine, patient is mildly confused in removes mask. Planning on endotracheal intubation Refractory to Bumex drip # Septic shock secondary to osteomyelitis of left foot - s/p I&D and BKA # Left Toe Dry Gangrene due to Severe PAD # Severe Peripheral Arterial Disease (PAD) # History of right and left Toe Osteomyelitis Podiatry on board: Completed I and D on 05/17/2025 which showed extensive osteomyelitis of left foot, indicate BKA Planning on PICC line placement to continue IV antibiotics for at least six weeks. Left SFA stenting completed on 05/06/2025; right lower extremity angiogram was canceled due to patient's elevated creatinine most probably due to contrast,status post left-sided stent placement. Patient with IV fluid until kidney function improves and reschedule right lower extremity angiogram. Cardiology was consulted for rescheduling the procedure outpatient. Continue aspirin, Plavix, and statin therapy. Under empiric IV antibiotic (meropenem and linezolid, previously on ceftriaxone). Planning on changing to vancomycin due to thrombocytopenia, once hemodialysis started Lactic acid up trending. Currently on IV vasopressor (norepinephrine) # Severe anemia probably secondary to sepsis - s/p PRBCs transfusions # Severe anemia in patient on anticoagulation # Normocytic hypochromic anemia due to chronic disease (CKD/sepsis) # Hematoma in the right upper arm # Left Lower Extremity DVT (Popliteal Vein) Hemoglobin stable now No signs symptoms of active bleeding FOBT negative Doppler of the right upper extremity: No DVT, Anechoic structure with internal lace-like reticulations in the inner upper arm which could reflect a hematoma Continued anticoagulation according to Cardiology recommendations, as the patient is high risk status post left lower extremity stent placement. IVC filter placement is under consideration. Patient is on Plavix and enoxaparin, discontinued aspirin per Cardiology recommendations. On enoxaparin 70 mg BID. # AD hemodynamically mediated (VMN) on CKD # Chronic Kidney Disease Stage III Monitor renal function and electrolytes. Avoid nephrotoxic agents. Adjust medications as needed for renal dosing. Nephrology was consulted: Optimize medical therapy (indicated bicarbonate pills), discontinued IV fluids and indicated IV diuretics (bumex drip), IV vasopressors and on bicarbonate drip. Patient refractory to medical treatment, planning on initiating hemodialysis. # NSTEMI Type 2 (Demand Ischemia) # History of Severe Triple-Vessel CAD (Declined CABG) # Acute on chronic diastolic congestive heart failure (HFpEF, LVEF 50-55%) # Hypertensive Heart Disease with Diastolic Dysfunction and LVH Continue medical management. Continue medical management. Patient on enoxaparin and Plavix, discontinue aspirin Currently on IV diuretics (40 mg furosemide daily) Cardiac diet. # Hyperkalemia Treated with Lokelma, albuterol, bicarbonate, and calcium. Monitor potassium levels. # Transaminitis Monitor liver enzymes. Review medications for hepatotoxicity. # Type 2 Diabetes Mellitus with Peripheral Neuropathy - Controlled (hemoglobin A1c 6.7%) # Hyperlipidemia Diet controlled. Monitor for foot ulcers and neuropathic complications. CMP blood glucose ranges 130-150 Continue atorvastatin. Monitor lipid panel. # History of Testicular Cancer # Gait instability - partially bed-bound Patient benefitted with physical therapy. Goals of care discussions, full code status. More than 19 minute spent with patient. Case discussed with Dr. York, patient, family (son) and nurses: Patient is refractory to medical treatment, anuric, in respiratory distress, worsening AD, with metabolic encephalopathy. Discussed with family, patient and nurses. Planning on completing endotracheal intubation and placement of hemodialysis catheter. Patient has poor prognosis. Nutrition: Glucerna Prophylaxis for PUD and DVT: Pantoprazole and enoxaparin therapeutic Lines 05/21/2025 PICC line 05/23/2025 ET tube 05/23/2025 NG tube 05/23/2025 HD catheter Drips Bicarbonate Norepineprhine Bumex drip Fentanyl Midazolam Critical care time spent including discussion with nursing and family, excluding procedures: 78 minutes Plan discussed with: Patient, Son, Other (Nurses) Dietary Evaluation Review Comments: 1) Advance to [facility] 75gm + cardiac diet 2) Armen 1 pk BID, MVI w/ minerals 1 tab daily, VitC 500mg BID, Zinc sulfate 220mg BID x 10 days 3) Monitor NPO status, lab values, weight trend, and I/O Expected Outcomes/Goals: To meet >75% estimated needs Wound to improve Fu 2-3 days Date of Service: May 23, 2025 Billing Provider: LAUREN YORK MD Common Visit Codes: [id number] CARE 30-74 MIN (crit care time 45 minutes) DANA MERCADO RESIDENT May 23, 2025 10:06 LAUREN YORK MD May 23, 2025 21:59
[2025-05-23 13:24] LABS: Base Excess -1.6 mmol/L (-2.0-3.0)
[2025-05-23] MEDS: ROCURONIUM 10MG/ML 10ML VIAL IV ONE (13:56)
[2025-05-23] MEDS: ETOMIDATE (2MG/ML) 20ML VIAL IV ONE (14:01)
[2025-05-23] MEDS: fentaNYL Drip 2500mCg/250mlNS 250 ML IV ONE (14:19)
[2025-05-23] MEDS: fentaNYL Drip 2500mCg/250mlNS 250 ML IV SCH (14:31)
--- NOTE | 2025-05-23 14:36 | DVH ---
Exam: US US GUIDED VASCULAR ACCESS Date: 05/22/2025 08:24 AM Clinical History: PICC Comparison: US US GUIDED VASCULAR ACCESS on DOS: 05/19/25, US RT UPPER DVT on DOS: 05/08/25, US BILAT L OWER DVT on DOS: 05/04/25, US BILAT LOWER DVT on DOS: 04/20/25, CV VENOUS DOPPLER EXTREM BILAT on DOS: 03/21/25 Findings: Targeted sonographic evaluation of the basilic vein was obtained utilizing grayscale and color Dopple r imaging. IMPRESSION: Sonographic assistance for central line placement. Please refer to procedural report for detailed fin dings.
--- NOTE | 2025-05-23 14:37 | DVH ---
INDICATION: INTBUATION TECHNIQUE: Single frontal view of the chest was obtained COMPARISON: XY CHEST PORTABLE on DOS: 05/23/25, XY CHEST PORTABLE on DOS: 05/22/25, XY CHEST PORTABLE o n DOS: 05/21/25, XY CHEST PORTABLE on DOS: 05/20/25, XY CHEST XRAY 1 VIEW on DOS: 05/19/25, XY CHEST POR TABLE on DOS: 05/23/25 FINDINGS: Lines and Tubes: Left PICC in satisfactory position overlying the superior vena cava. Endotracheal tu be 2 cm from the livier. Nasogastric tube tip in the stomach Lungs: Multifocal airspace disease. Pleura: No effusion. No pneumothorax. Cardiomediastinal contours: Cardiomegaly Bones: Unremarkable IMPRESSION: Endotracheal tube and nasogastric tube in appropriate positioning
[2025-05-23] MEDS: MIDAZOLAM DRIP 50 mg/50mL 50 ML IV ONE (16:20)
--- NOTE | 2025-05-23 16:42 | DVH ---
CHEST RADIOGRAPH Indication: DIALYSIS CATHETER INSERTION Technique: XY CHEST PORTABLE COMPARISON: None FINDINGS: Right IJ catheter tip projecting over SVC. Nasogastric tube projects towards the stomach. Left PICC line tip projects over the SVC. Endotracheal tube tip projects 3 cm above the livier. The cardiac silhouette is enlarged. The lungs demonstrate bilateral patchy airspace opacities. The pu lmonary vasculature is prominent. Moderate bilateral pleural effusions. There is no pneumothorax. IMPRESSION: As above
[2025-05-23] MEDS: MIDAZOLAM DRIP 50 mg/50mL 50 ML IV SCH (17:04)
--- NOTE | 2025-05-23 18:14 | DVHPN2 ---
Progress Note Date Seen: May 23, 2025 Medical Necessity Reason Pt with a Central, PICC or Fol: No Subjective Patient reports: Other (Events noted patient is on BiPAP he appears confused and hypoxic) Review of Systems: Deferred Objective vital signs Vital Sign Date Time Temp Pulse Resp B/P (MAP) Pulse Ox O2 Delivery O2 Flow Rate FiO2 05/23/25 16:30 74 16 103/57 (72) 100 50 05/23/25 16:00 Mechanical Ventilator+ 05/23/25 09:58 50.0 05/23/25 08:00 97.0 97.0 Total Intake and Output 05/22/25 05/22/25 05/23/25 15:00 23:00 07:00 Intake Total 1322 ml 1389 ml 1325 ml Output Total 30 ml 30 ml Balance 1322 ml 1359 ml 1295 ml medications Current Medications Medications Dose Ordered Sig/Bandar Route Start Time Stop Time Status Last Admin Dose Admin Acetaminophen 650 mg Q6HP PRN PO 05/04/25 15:00 Clopidogrel Bisulfate 75 mg DAILY PO 05/07/25 10:00 05/19/25 08:59 75 MG Enteral Nutritional Formula 240 ml TIDWM PO 05/08/25 12:00 05/19/25 17:22 240 ML Linezolid 300 ml @ 150 mls/hr Q12HR IV 05/16/25 22:00 05/22/25 20:51 150 MLS/HR Atorvastatin Calcium 40 mg HS PO 05/17/25 22:00 Hold 05/20/25 22:20 40 MG Meropenem 50 ml @ 17 mls/hr Q12H IV 05/19/25 11:00 05/23/25 09:32 17 MLS/HR Sodium Chloride 10 ml QSHIFT@10,22 IV 05/19/25 22:00 05/23/25 09:32 10 ML Ondansetron HCl 4 mg Q4HP PRN IV 05/20/25 09:30 05/23/25 07:42 4 MG Vasopressin 20 units/Sodium Chloride 100 ml @ 9 mls/hr Q11H7M IV 05/20/25 19:45 05/22/25 02:01 9 MLS/HR Norepinephrine Bitartrate 32 mg/ Sodium Chloride 250 ml @ 0.938 mls/ hr Q24H IV 05/21/25 01:00 Pantoprazole Sodium 40 mg DAILY IV 05/21/25 10:00 05/23/25 09:32 40 MG Artificial Tears 1 drop Q6HP PRN EACHEYE 05/21/25 05:00 Bumetanide 25 mg/ Miscellaneous 100 ml @ 4 mls/hr Q24H IV 05/21/25 10:30 05/23/25 05:12 4 MLS/HR Diagnostic Test (Pha) 1 strip Q6HR 05/23/25 00:00 05/23/25 18:07 1 STRIP Insulin Human Regular FOLLOW SLIDING SCALE Q6HR SC 05/23/25 00:00 05/23/25 11:24 4 UNITS Dextrose 50 ml UD IV 05/22/25 22:00 Fentanyl Citrate 250 ml @ 2.5 mls/hr Q24H IV 05/23/25 14:00 05/23/25 14:31 2.5 MLS/HR Midazolam HCl 50 ml @ 1 mls/hr Q24H IV 05/23/25 16:15 05/23/25 17:04 1 MLS/HR Examination: GENERAL:Abnormal, LUNGS:Abnormal, MSK:Abnormal, NEURO:Abnormal laboratory and microbiology Laboratory Tests 05/23/25 05:08 05/23/25 03:30 Test 05/23/25 05:08 Range/Units Serum Glucose 226 #H 74-106 mg/dL Microbiology Date/Time Source Procedure Growth Status 05/20/25 18:09 Nose MRSA Screen - Final Complete 05/20/25 01:02 Urine - [place] Urine Culture - Preliminary Yeast, not Dulce albicans Resulted 05/19/25 09:30 Sputum Gram Stain - Final Complete 05/19/25 09:30 Respiratory Culture - Final Enterobacter cloacae Pseudomonas aeruginosa Complete 05/19/25 08:14 Blood Blood Culture - Preliminary NO GROWTH AFTER 72 HOURS OF INCUBATION. Resulted Problem List/Assessment/Plan Problem List/Assessment/Plan Acute kidney injury superimposed Chronic Kidney Disease stage IV secondary hemodynamic mediated, FeNa < 1% Chronic kidney disease stage IV followed by Dr. Ponce Gangrene left foot, status post left below-knee amputation 05/20 Left lower extremity DVT Diabetes mellitus type 2 Chronic diastolic Congestive heart failure NSTEMI Hyponatremia due to excess H2O Dropping hemoglobin Anemia due to blood loss Metabolic acidosis Septic shock History of testicular cancer Cellulitis lower extremity Recommendations Worsening hypoxia--patient getting intubated soon Worsening oliguria, DC IV fluids, continue diuretics Recommend renal replacement therapy for solute and volume management dialysis will be arranged pending catheter placement-- Consent will be obtained from son as patient is altered Plan discussed with: Son, Other Dietary Evaluation Review Comments: 1) [facility] cardiac [facility] 2) Armen 1 pk BID, MVI w/ minerals 1 tab daily, VitC 500mg BID, Zinc sulfate 220mg BID x 10 days 3) Monitor NPO status, lab values, weight trend, and I/O Expected Outcomes/Goals: To meet >75% estimated needs Wound to improve Fu 2-3 days Critical Care Time (mins): 50 SHANTANU BECK MD May 23, 2025 18:14
[2025-05-23] MEDS ORDERED: Glucerna 1.2 Cal 1Liter BOTTLE GT SCH (19:15)
[2025-05-23] MEDS ORDERED: VANCOMYCIN PER PHARMACY 0 MG IV SCH (19:30)
[2025-05-23 20:25] LABS: Base Excess -3.0 mmol/L (-2.0-3.0)
[2025-05-23 20:35] LABS: Hematocrit 25.5 % (41.0-53.0); Hemoglobin 8.7 g/dL (13.5-17.5); Mean Corpuscular Hemoglobin 32.6 pg (28.0-32.0); Mean Corpuscular Volume 95.4 fL (80.0-100.0); Nucleated Red Blood Cells % 0.0 %
[2025-05-23 20:46] LABS: Anion Gap 17 (5-15); BUN/Creatinine Ratio 19.6 (10.0-20.0); Carbon Dioxide 24 mmol/L (20-31); Magnesium 1.9 mg/dL (1.6-2.6)
[2025-05-23 20:48] LABS: Chloride 89 mmol/L (98-107); INR 1.39 (0.9-1.15); Partial Thromboplastin Time 48.3 SEC (24.5-34.5); Potassium 3.2 mmol/L (3.5-5.1); Prothrombin Time 14.3 sec (9.3-11.8); Sodium 130 mmol/L (136-145)
[2025-05-23 20:49] LABS: Alanine Aminotransferase 519 U/L (7-40); Albumin 2.3 g/dL (3.2-4.8); Alkaline Phosphatase 350 U/L (46-116); Bilirubin, Total 1.3 mg/dL (0.2-1.0); Calcium 6.5 mg/dL (8.7-10.4); Glucose 108 mg/dL (74-106); Total Protein 4.3 g/dL (5.7-8.2)
[2025-05-23 20:50] LABS: Blood Urea Nitrogen 86 mg/dL (9-23); Lactic Acid w/Reflex 5.6 mmol/L (0.4-2.0)
[2025-05-23 21:18] LABS: Base Excess -1.9 mmol/L (-2.0-3.0)
--- NOTE | 2025-05-23 21:46 | DVHNC2 ---
Intubation Indication: Respiratory Insufficiency, Altered Mental Status, Airway Protection Prep: Preoxygenation Pretreated with: Sedation Medicated with: Other (Rocuronium) Intubation Approach: Orotracheal Intubation size: cm (8) Informed consent obtained: Yes Risks/benefits/alt described: Yes Notes CT completed with GlideScope under supervision of Dr. Ma. Date of Service: May 23, 2025 Billing Provider: LAUREN MA MD Common Visit Codes: PROCEDURE ONLY Procedure Codes: [id number] ANGELA ANGEL RESIDENT May 23, 2025 21:46
--- NOTE | 2025-05-23 21:52 | DVHNC2 ---
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 (Resident) Indication: Other (Hemodialysis) Room prepared for procedure: Yes Government Clerk performed hand hygien: Yes Maximal sterile barrier precau: Mask/Eye shield, Sterile gown, Cap, Sterlie gloves, Large sterlie drape Skin Preparation: Chlorhexidine gluconate Skin preparation completely dr: Yes Insertion site: Right, Internal jugular Central line catheter type: Dialysis tunneled Number of lumens: 2 Central line exchanged over a: No Antiseptic ointment applied to: Yes Post Assessment: Chest X-Ray, Proper placement, No Pneumothorax Informed consent obtained: Yes Risks/benefits/alt described: Yes Notes Procedure completed under ultrasound guidance under supervision Dr. Ma. Date of Service: May 23, 2025 Billing Provider: LAUREN MA MD Common Visit Codes: PROCEDURE ONLY Procedure Codes: [id number] NON-TUNNEL CV CATH ANGELA ANGEL RESIDENT May 23, 2025 21:52
[2025-05-23] MEDS ORDERED: TPN PER PHARMACY IV NR (22:00)
[2025-05-23] MEDS: VANCOMYCIN 1GM/250ML KIT 250 ML IV SCH (22:10)
[2025-05-23] MEDS: POTASSIUM CHL 20MEQ/100ML 100 ML IV ONE (23:38)
[2025-05-24] VITALS (94 sets, daily range): BP systolic 73–114; BP diastolic 40–61; PULSE 6–86; RESP 9–21; TEMP 96.8–98.6; O2SAT 94–100
[2025-05-24 05:17] LABS: Base Excess -0.7 mmol/L (-2.0-3.0)
[2025-05-24 05:27] LABS: Hematocrit 24.6 % (41.0-53.0); Hemoglobin 8.7 g/dL (13.5-17.5); Mean Corpuscular Hemoglobin 33.0 pg (28.0-32.0); Mean Corpuscular Volume 93.2 fL (80.0-100.0); Nucleated Red Blood Cells % 0.1 %
[2025-05-24 05:36] LABS: Anion Gap 17 (5-15); BUN/Creatinine Ratio 17.5 (10.0-20.0); Bilirubin, Total 1.1 mg/dL (0.2-1.0); Carbon Dioxide 24 mmol/L (20-31); Glucose 93 mg/dL (74-106); Magnesium 1.9 mg/dL (1.6-2.6)
--- NOTE | 2025-05-24 05:40 | DVH ---
CHEST RADIOGRAPH Indication: ET intubation Technique: Single frontal view of the chest was obtained COMPARISON: XY CHEST PORTABLE on DOS: 05/23/25, XY CHEST PORTABLE on DOS: 05/23/25, XY CHEST PORTABLE o n DOS: 05/23/25, XY CHEST PORTABLE on DOS: 05/22/25, XY CHEST PORTABLE on DOS: 05/21/25 FINDINGS: Lines and Tubes: Unchanged. Lungs: Grossly stable appearing diffuse increased prominence of the pulmonary vasculature, bilateral pleural effusions and bibasilar pulmonary airspace disease. No pneumothorax. Cardiomediastinal contours: Unremarkable Bones: Unremarkable IMPRESSION: 1. Stable appearing diffuse increased prominence of the pulmonary vasculature, bilateral pleural effu sions and bibasilar pulmonary airspace disease. 2. Lines and tubes unchanged.
[2025-05-24 05:44] LABS: INR 1.36 (0.9-1.15); Partial Thromboplastin Time 49.3 SEC (24.5-34.5); Prothrombin Time 14.0 sec (9.3-11.8)
[2025-05-24 05:47] LABS: Lactic Acid w/Reflex 6.6 mmol/L (0.4-2.0)
[2025-05-24 05:48] LABS: Alanine Aminotransferase 422 U/L (7-40); Albumin 2.3 g/dL (3.2-4.8); Alkaline Phosphatase 333 U/L (46-116); Blood Urea Nitrogen 77 mg/dL (9-23); Calcium 6.7 mg/dL (8.7-10.4); Chloride 87 mmol/L (98-107); Potassium 3.3 mmol/L (3.5-5.1); Sodium 128 mmol/L (136-145); Total Protein 4.5 g/dL (5.7-8.2)
[2025-05-24] MEDS: ALBUMIN 25% 100 ML IV PRN (06:55)
--- NOTE | 2025-05-24 07:11 | DVHPNRES ---
Progress Note Date Seen: May 24, 2025 Resident Creating Document: DANA MERCADO RESIDENT Medical Necessity Reason Pt with a Central, PICC or Fol: Yes The following are medically ne: Central Line, Leung Catheter Subjective Review of Systems Osmel Joy 74-year-old male who presents to the ER with a history of left leg purple discoloration since last 3 days. He denies any chest pain, shortness of breath, abdominal pain or any other complaints today. The patient was admitted at [facility] in February, during the time the patient underwent debridements of the right foot. The patient is not taking Eliquis due to bruising, his home health hospice nurse advised him to stop Eliquis. Past medical history: Hypertension, diabetes, dyslipidemia, CAD severe triple- vessel disease non revascularized due to patient's refusal of CABG, testicular cancer, CKD on stage III, diabetic peripheral neuropathy, left lower extremity DVT, PAD, diabetic foot s/p toe amputation, bed bound for 3 months, spina bifida. Was on hospice, but revoked for this admission. Past surgical history: Tonsillectomy, debridement of necrotic right toe. Family history: Noncontributory Social history: Lives in [place] with son (CHALO). Denies tobacco, alcohol and other drug abuse Allergies: No known allergy Home medications: Apixaban, linezolid, pantoprazole, atorvastatin, carvedilol, tamsulosin, amlodipine, aspirin, hydrocodone acetaminophen, rifampin PCP: Dr. Avendano Patient seen and examined at bedside. Currently ICU status on sedoanalgesia due to mechanical assisted ventilation, on intermittent IV vasopressors during hemodialysis session, on empiric IV antibiotic. Can not obtain review of systems. Objective vital signs Vital Sign Date Time Temp Pulse Resp B/P (MAP) Pulse Ox O2 Delivery O2 Flow Rate FiO2 05/24/25 06:08 73 16 91/50 (64) 100 40 05/24/25 04:00 Mechanical Ventilator+ 05/24/25 00:30 98.1 208.6 05/23/25 09:58 50.0 Total Intake and Output 05/23/25 05/23/25 05/24/25 15:00 23:00 07:00 Intake Total 703 ml 181 ml 75 ml Output Total 100 ml Balance 703 ml 81 ml 75 ml medications Current Medications Medications Dose Ordered Sig/Bandar Route Start Time Stop Time Status Last Admin Dose Admin Acetaminophen 650 mg Q6HP PRN PO 05/04/25 15:00 Clopidogrel Bisulfate 75 mg DAILY PO 05/07/25 10:00 05/19/25 08:59 75 MG Enteral Nutritional Formula 240 ml TIDWM PO 05/08/25 12:00 05/19/25 17:22 240 ML Atorvastatin Calcium 40 mg HS PO 05/17/25 22:00 Hold 05/20/25 22:20 40 MG Meropenem 50 ml @ 17 mls/hr Q12H IV 05/19/25 11:00 05/23/25 22:42 17 MLS/HR Sodium Chloride 10 ml QSHIFT@10,22 IV 05/19/25 22:00 05/23/25 22:08 10 ML Ondansetron HCl 4 mg Q4HP PRN IV 05/20/25 09:30 05/23/25 07:42 4 MG Vasopressin 20 units/Sodium Chloride 100 ml @ 9 mls/hr Q11H7M IV 05/20/25 19:45 05/22/25 02:01 9 MLS/HR Norepinephrine Bitartrate 32 mg/ Sodium Chloride 250 ml @ 0.938 mls/ hr Q24H IV 05/21/25 01:00 Pantoprazole Sodium 40 mg DAILY IV 05/21/25 10:00 05/23/25 09:32 40 MG Artificial Tears 1 drop Q6HP PRN EACHEYE 05/21/25 05:00 Bumetanide 25 mg/ Miscellaneous 100 ml @ 4 mls/hr Q24H IV 05/21/25 10:30 05/23/25 05:12 4 MLS/HR Diagnostic Test (Pha) 1 strip Q6HR 05/23/25 00:00 05/24/25 06:28 1 STRIP Insulin Human Regular FOLLOW SLIDING SCALE Q6HR SC 05/23/25 00:00 05/23/25 11:24 4 UNITS Dextrose 50 ml UD IV 05/22/25 22:00 Fentanyl Citrate 250 ml @ 2.5 mls/hr Q24H IV 05/23/25 14:00 05/24/25 05:56 15 MLS/HR Midazolam HCl 50 ml @ 1 mls/hr Q24H IV 05/23/25 16:15 05/24/25 02:15 2 MLS/HR Enteral Nutritional Formula 1,000 ml 30ML/HR GT 05/23/25 19:15 Vancomycin HCl 0 ml @ 0 mls/hr UD IV 05/23/25 19:30 Albumin Human 100 ml @ 100 mls/hr PRN PRN IV 05/24/25 06:45 Examination Patient lying in bed, under sedoanalgesia due to mechanical ventilation General: RASS -3, afebrile, mucosae are moist. Presents hemodialysis catheter in right internal jugular area Cardiovascular: Normal S1 and S2. No murmurs, gallops or rubs Respiratory: Mechanically assisted ventilation, equal bilateral airway entree. Clear lung sounds on auscultation Abdomen: Soft, nontender, no organomegaly, normal bowel sounds MSK/skin: Mobilization of limbs cannot be evaluated. Skin is dry and warm. Left lower limb [id number] amputation, no active bleeding from site, drainage is empty Neurological: Orientation cannot be assessed. No apparent motor no sensitive deficits. Pupils are isocoric and reactive laboratory and microbiology Laboratory Tests 05/24/25 04:45 Test 05/24/25 04:45 Range/Units Serum Glucose 93 74-106 mg/dL Microbiology Date/Time Source Procedure Growth Status 05/20/25 18:09 Nose MRSA Screen - Final Complete 05/20/25 01:02 Urine - Leung Port Urine Culture - Preliminary Yeast, not Dulce albicans Resulted 05/19/25 09:30 Sputum Gram Stain - Final Complete 05/19/25 09:30 Respiratory Culture - Final Enterobacter cloacae Pseudomonas aeruginosa Complete 05/19/25 08:14 Blood Blood Culture - Preliminary NO GROWTH AFTER 72 HOURS OF INCUBATION. Resulted Problem List/Assessment/Plan Problem List/Assessment/Plan # Metabolic encephalopathy secondary to septic shock due to osteomyelitis of left foot (status post [id number] amputation) # Sedation Completed endotracheal intubation on 05/23/2025. Currently on sedoanalgesia # Acute respiratory failure secondary to cardiorenal syndrome # Cardiorenal syndrome probable type 3 # Acute on chronic diastolic congestive heart failure Currently on mechanical assisted ventilation (VZV, VT 450 respiratory rate 16 peep five and FiO2 40%) Refractory to Bumex drip. Indicated hemodialysis session, 1st session on 05/24/2025 # Septic shock secondary to osteomyelitis of left foot - s/p I&D and BKA # Left Toe Dry Gangrene due to Severe PAD # Severe Peripheral Arterial Disease (PAD) # History of right and left Toe Osteomyelitis Podiatry on board: Completed I and D on 05/17/2025 which showed extensive osteomyelitis of left foot, indicate BKA Planning on PICC line placement to continue IV antibiotics for at least six weeks. Left SFA stenting completed on 05/06/2025; right lower extremity angiogram was canceled due to patient's elevated creatinine most probably due to contrast,status post left-sided stent placement. Patient with IV fluid until kidney function improves and reschedule right lower extremity angiogram. Cardiology was consulted for rescheduling the procedure outpatient. Continue aspirin, Plavix, and statin therapy. Under empiric IV antibiotic (meropenem and vancomycin, previously on linezolid and ceftriaxone). Planning on changing to vancomycin due to thrombocytopenia, once hemodialysis started Lactic acid up trending. Currently on intermittent IV vasopressor (norepinephrine) during hemodialysis session # Severe anemia probably secondary to sepsis - s/p PRBCs transfusions # Severe anemia in patient on anticoagulation # Normocytic hypochromic anemia due to chronic disease (CKD/sepsis) # Hematoma in the right upper arm # Left Lower Extremity DVT (Popliteal Vein) Hemoglobin stable now No signs symptoms of active bleeding FOBT negative Doppler of the right upper extremity: No DVT, Anechoic structure with internal lace-like reticulations in the inner upper arm which could reflect a hematoma Continued anticoagulation according to Cardiology recommendations, as the patient is high risk status post left lower extremity stent placement. IVC filter placement is under consideration. Patient is on Plavix and enoxaparin, discontinued aspirin per Cardiology recommendations. Discontinued heparin due to thrombocytopenia Ordered 1 unit of platelets # AD hemodynamically mediated (VMN) on CKD # Chronic Kidney Disease Stage III # Anion gap metabolic acidosis due to sepsis Monitor renal function and electrolytes. Avoid nephrotoxic agents. Adjust medications as needed for renal dosing. Nephrology was consulted: Optimize medical therapy (indicated bicarbonate pills), discontinued IV fluids and indicated IV diuretics (bumex drip), IV vasopressors and on bicarbonate drip. Patient refractory to medical treatment, planning on initiating hemodialysis. # NSTEMI Type 2 (Demand Ischemia) # History of Severe Triple-Vessel CAD (Declined CABG) # Acute on chronic diastolic congestive heart failure (HFpEF, LVEF 50-55%) # Hypertensive Heart Disease with Diastolic Dysfunction and LVH Continue medical management. Continue medical management. Patient on enoxaparin and Plavix, discontinue aspirin Currently on IV diuretics (40 mg furosemide daily) Cardiac diet. # Hyperkalemia Treated with Lokelma, albuterol, bicarbonate, and calcium. Monitor potassium levels. # Transaminitis Monitor liver enzymes. Review medications for hepatotoxicity. Hold atorvastatin # Type 2 Diabetes Mellitus with Peripheral Neuropathy - Controlled (hemoglobin A1c 6.7%) # Hyperlipidemia Diet controlled. Hold atirvastatin due to transaminitis Monitor lipid panel. # History of Testicular Cancer # Gait instability - partially bed-bound Patient benefitted with physical therapy once extubated Nutrition: Glucerna Prophylaxis for PUD and DVT: Pantoprazole and enoxaparin therapeutic Lines 05/21/2025 PICC line 05/23/2025 ET tube 05/23/2025 NG tube 05/23/2025 HD catheter Drips Norepineprhine Bumex drip Fentanyl Midazolam Goals of care discussions, full code status. More than 19 minute spent with patient. Case discussed with Dr. York, patient, family (son) and nurses: Currently in ICU status, on mechanical assisted ventilation, requiring intermittent IV vasopressors during hemodialysis session, on empiric IV antibiotic. Patient has poor prognosis. Critical care time spent including discussion with nursing and family, excluding procedures: 69 minutes Plan discussed with: Son, Other (Nurses) My Orders My Orders Orders - DANA MERCADO RESIDENT Procedure Category Date Status Time Fentanyl Drip PHA 05/23/25 In Process 2500mcg/250mlns 14:00 Rass Sedation Scale SALVADOR 05/23/25 In Process 14:00 Chest Portable XY 05/23/25 Resulted 15:57 Nutritional PHA 05/23/25 In Process Supplements (Glucerna 19:15 Abg W/ Co-Ox RT 05/24/25 Logged 04:00 Chest Xray 1 View XY 05/24/25 Resulted 05:00 Chest Xray 1 View XY 05/25/25 Logged 05:00 Chest Xray 1 View XY 05/26/25 Logged 05:00 Chest Xray 1 View XY 05/27/25 Logged 05:00 Chest Xray 1 View XY 05/28/25 Logged 05:00 Chest Xray 1 View XY 05/29/25 Logged 05:00 Chest Xray 1 View XY 05/30/25 Logged 05:00 Chest Xray 1 View XY 05/31/25 Logged 05:00 Chest Xray 1 View XY 06/01/25 Logged 05:00 Chest Xray 1 View XY 06/02/25 Logged 05:00 Vancomycin Per PHA 05/23/25 In Process Pharmacy 19:30 Abg W/ Co-Ox RT 05/23/25 Logged 19:22 Ventilator Orders RT 05/23/25 Transmitted 20:27 Abg W/ Co-Ox RT 05/23/25 Logged 20:25 Dietary Evaluation Review Comments: 1) [facility] to [facility] + cardiac diet 2) Armen 1 pk BID, MVI w/ minerals 1 tab daily, VitC 500mg BID, Zinc sulfate 220mg BID x 10 days 3) Monitor NPO status, lab values, weight trend, and I/O Expected Outcomes/Goals: To meet >75% estimated needs Wound to improve Fu 2-3 days Date of Service: May 24, 2025 Billing Provider: LAUREN YORK MD Common Visit Codes: [id number] CARE 30-74 MIN (crit care time 70 minutes) DANA MERCADO RESIDENT May 24, 2025 07:11 LAUREN YORK MD May 26, 2025 16:02
--- NOTE | 2025-05-24 09:03 | MEDREC ---
[facility] Intervention Section I [facility] Intervention: Review courses of therapy (URINE CULTURE POSITIVE FOR YEAST - PLEASE CONSIDER ADDING ANTIFUNGAL IF CLINICALLY RELEVANT ) EBONI RANGEL PHARMACIST May 24, 2025 09:03
--- NOTE | 2025-05-24 09:29 | DVHPN2 ---
Progress Note Date Seen: May 24, 2025 Medical Necessity Reason Pt with a Central, PICC or Fol: No Objective vital signs Vital Sign Date Time Temp Pulse Resp B/P (MAP) Pulse Ox O2 Delivery O2 Flow Rate FiO2 05/24/25 08:00 71 05/24/25 08:00 16 100 Mechanical Ventilator+ 40 40 05/24/25 07:35 107/49 (68) 05/24/25 07:30 97.7 207.9 05/23/25 09:58 50.0 Total Intake and Output 05/23/25 05/23/25 05/24/25 15:00 23:00 07:00 Intake Total 703 ml 181 ml 233.8 ml Output Total 100 ml 150 ml Balance 703 ml 81 ml 83.8 ml medications Current Medications Medications Dose Ordered Sig/Bandar Route Start Time Stop Time Status Last Admin Dose Admin Acetaminophen 650 mg Q6HP PRN PO 05/04/25 15:00 Clopidogrel Bisulfate 75 mg DAILY PO 05/07/25 10:00 05/19/25 08:59 75 MG Enteral Nutritional Formula 240 ml TIDWM PO 05/08/25 12:00 05/19/25 17:22 240 ML Atorvastatin Calcium 40 mg HS PO 05/17/25 22:00 Hold 05/20/25 22:20 40 MG Meropenem 50 ml @ 17 mls/hr Q12H IV 05/19/25 11:00 05/23/25 22:42 17 MLS/HR Sodium Chloride 10 ml QSHIFT@10,22 IV 05/19/25 22:00 05/23/25 22:08 10 ML Ondansetron HCl 4 mg Q4HP PRN IV 05/20/25 09:30 05/23/25 07:42 4 MG Vasopressin 20 units/Sodium Chloride 100 ml @ 9 mls/hr Q11H7M IV 05/20/25 19:45 05/22/25 02:01 9 MLS/HR Norepinephrine Bitartrate 32 mg/ Sodium Chloride 250 ml @ 0.938 mls/ hr Q24H IV 05/21/25 01:00 05/24/25 06:45 0.938 MLS/HR Pantoprazole Sodium 40 mg DAILY IV 05/21/25 10:00 05/23/25 09:32 40 MG Artificial Tears 1 drop Q6HP PRN EACHEYE 05/21/25 05:00 Bumetanide 25 mg/ Miscellaneous 100 ml @ 4 mls/hr Q24H IV 05/21/25 10:30 05/23/25 05:12 4 MLS/HR Diagnostic Test (Pha) 1 strip Q6HR 05/23/25 00:00 05/24/25 06:28 1 STRIP Insulin Human Regular FOLLOW SLIDING SCALE Q6HR SC 05/23/25 00:00 05/23/25 11:24 4 UNITS Dextrose 50 ml UD IV 05/22/25 22:00 Fentanyl Citrate 250 ml @ 2.5 mls/hr Q24H IV 05/23/25 14:00 05/24/25 05:56 15 MLS/HR Midazolam HCl 50 ml @ 1 mls/hr Q24H IV 05/23/25 16:15 05/24/25 02:15 2 MLS/HR Enteral Nutritional Formula 1,000 ml 30ML/HR GT 05/23/25 19:15 Vancomycin HCl 0 ml @ 0 mls/hr UD IV 05/23/25 19:30 Albumin Human 100 ml @ 100 mls/hr PRN PRN IV 05/24/25 06:45 05/24/25 08:02 100 MLS/HR Aspirin 81 mg DAILY PO 05/24/25 10:00 laboratory and microbiology Laboratory Tests 05/24/25 04:45 Test 05/24/25 04:45 Range/Units Serum Glucose 93 74-106 mg/dL Problem List/Assessment/Plan Problem List/Assessment/Plan 05/24/25 intubated, receiving hemodialysis left BK amputation being cared for by wound service, wound vac in place, please recall me if needed, will sign off for now, carmen need to stay in wound for another two weeks. Plan discussed with: Other Dietary Evaluation Review Comments: 1) [facility] + cardiac diet 2) Armen 1 pk BID, MVI w/ minerals 1 tab daily, VitC 500mg BID, Zinc sulfate 220mg BID x 10 days 3) Monitor NPO status, lab values, weight trend, and I/O Expected Outcomes/Goals: To meet >75% estimated needs Wound to improve Fu 2-3 days DOUG URENA MD May 24, 2025 09:29
[2025-05-24] MEDS: SODIUM CHL 0.9% 1000 ML BAG XX ONE (09:40)
[2025-05-24] MEDS: DEXTROSE (50%) 50ML SYRG IV SCH (11:36)
[2025-05-24 11:54] LABS: Base Excess -0.7 mmol/L (-2.0-3.0)
--- NOTE | 2025-05-24 13:05 | DVHPN2 ---
Progress Note - Dictate Date Seen: May 23, 2025 Medical Necessity Reason Pt with a Central, PICC or Fol: Yes The following are medically ne: Central Line, Leung Catheter vital signs Vital Sign Date Time Temp Pulse Resp B/P (MAP) Pulse Ox O2 Delivery O2 Flow Rate FiO2 05/24/25 12:30 97.5 84 16 93/49 (64) 100 207.5 05/24/25 12:00 40 05/24/25 12:00 Mechanical Ventilator+ 05/23/25 09:58 50.0 Total Intake and Output 05/23/25 05/23/25 05/24/25 15:00 23:00 07:00 Intake Total 703 ml 181 ml 233.8 ml Output Total 100 ml 150 ml Balance 703 ml 81 ml 83.8 ml medications Current Medications Medications Dose Ordered Sig/Bandar Route Start Time Stop Time Status Last Admin Dose Admin Acetaminophen 650 mg Q6HP PRN PO 05/04/25 15:00 Clopidogrel Bisulfate 75 mg DAILY PO 05/07/25 10:00 05/19/25 08:59 75 MG Enteral Nutritional Formula 240 ml TIDWM PO 05/08/25 12:00 05/19/25 17:22 240 ML Atorvastatin Calcium 40 mg HS PO 05/17/25 22:00 Hold 05/20/25 22:20 40 MG Meropenem 50 ml @ 17 mls/hr Q12H IV 05/19/25 11:00 05/24/25 10:07 17 MLS/HR Sodium Chloride 10 ml QSHIFT@10,22 IV 05/19/25 22:00 05/24/25 10:03 10 ML Ondansetron HCl 4 mg Q4HP PRN IV 05/20/25 09:30 05/23/25 07:42 4 MG Vasopressin 20 units/Sodium Chloride 100 ml @ 9 mls/hr Q11H7M IV 05/20/25 19:45 05/22/25 02:01 9 MLS/HR Norepinephrine Bitartrate 32 mg/ Sodium Chloride 250 ml @ 0.938 mls/ hr Q24H IV 05/21/25 01:00 05/24/25 06:45 0.938 MLS/HR Pantoprazole Sodium 40 mg DAILY IV 05/21/25 10:00 05/24/25 10:03 40 MG Artificial Tears 1 drop Q6HP PRN EACHEYE 05/21/25 05:00 Bumetanide 25 mg/ Miscellaneous 100 ml @ 4 mls/hr Q24H IV 05/21/25 10:30 05/24/25 10:03 4 MLS/HR Diagnostic Test (Pha) 1 strip Q6HR 05/23/25 00:00 05/24/25 11:36 1 STRIP Insulin Human Regular FOLLOW SLIDING SCALE Q6HR SC 05/23/25 00:00 05/23/25 11:24 4 UNITS Dextrose 50 ml UD IV 05/22/25 22:00 05/24/25 11:36 50 ML Fentanyl Citrate 250 ml @ 2.5 mls/hr Q24H IV 05/23/25 14:00 05/24/25 05:56 15 MLS/HR Midazolam HCl 50 ml @ 1 mls/hr Q24H IV 05/23/25 16:15 05/24/25 02:15 2 MLS/HR Enteral Nutritional Formula 1,000 ml 30ML/HR GT 05/23/25 19:15 Vancomycin HCl 0 ml @ 0 mls/hr UD IV 05/23/25 19:30 Albumin Human 100 ml @ 100 mls/hr PRN PRN IV 05/24/25 06:45 05/24/25 08:02 100 MLS/HR Aspirin 81 mg DAILY PO 05/24/25 10:00 laboratory and microbiology Laboratory Tests 05/24/25 04:45 Test 05/24/25 04:45 Range/Units Serum Glucose 93 74-106 mg/dL Assessment/Plan Impression Acute hypoxemic respiratory failure Atelectasis Fluid overload Pleural effusions Patient seen and examined in the ICU Events Patient continued to decline and was re-intubated Placed on mechanical ventilation Initial settings RR 18, tidal volume 500, PEEP 5, FiO2 100% Labs and imaging reviewed ABG reviewed Management plan Vent support Titrate to maintain sats 90% or above Sedation for vent synchrony Continue antibiotics F/u cultures Bronchodilators Monitor renal function Monitor electrolytes Supplement as needed Pressors as needed for hemodynamic support To maintain a mean arterial pressure of 65 mmHg Critical care time 35 minutes Dietary Evaluation Review Comments: 1) Advance to [facility] 75gm + cardiac diet 2) Armen 1 pk BID, MVI w/ minerals 1 tab daily, VitC 500mg BID, Zinc sulfate 220mg BID x 10 days 3) Monitor NPO status, lab values, weight trend, and I/O Expected Outcomes/Goals: To meet >75% estimated needs Wound to improve Fu 2-3 days Plan discussed with: Other (Rn) DELROY REDD MD May 24, 2025 13:05
--- NOTE | 2025-05-24 13:09 | DVHPN2 ---
Progress Note - Dictate Date Seen: May 24, 2025 Medical Necessity Reason Pt with a Central, PICC or Fol: Yes The following are medically ne: Central Line, Leung Catheter vital signs Vital Sign Date Time Temp Pulse Resp B/P (MAP) Pulse Ox O2 Delivery O2 Flow Rate FiO2 05/24/25 12:30 97.5 84 16 93/49 (64) 100 207.5 05/24/25 12:00 40 05/24/25 12:00 Mechanical Ventilator+ 05/23/25 09:58 50.0 Total Intake and Output 05/23/25 05/23/25 05/24/25 15:00 23:00 07:00 Intake Total 703 ml 181 ml 233.8 ml Output Total 100 ml 150 ml Balance 703 ml 81 ml 83.8 ml medications Current Medications Medications Dose Ordered Sig/Bandar Route Start Time Stop Time Status Last Admin Dose Admin Acetaminophen 650 mg Q6HP PRN PO 05/04/25 15:00 Clopidogrel Bisulfate 75 mg DAILY PO 05/07/25 10:00 05/19/25 08:59 75 MG Enteral Nutritional Formula 240 ml TIDWM PO 05/08/25 12:00 05/19/25 17:22 240 ML Atorvastatin Calcium 40 mg HS PO 05/17/25 22:00 Hold 05/20/25 22:20 40 MG Meropenem 50 ml @ 17 mls/hr Q12H IV 05/19/25 11:00 05/24/25 10:07 17 MLS/HR Sodium Chloride 10 ml QSHIFT@10,22 IV 05/19/25 22:00 05/24/25 10:03 10 ML Ondansetron HCl 4 mg Q4HP PRN IV 05/20/25 09:30 05/23/25 07:42 4 MG Vasopressin 20 units/Sodium Chloride 100 ml @ 9 mls/hr Q11H7M IV 05/20/25 19:45 05/22/25 02:01 9 MLS/HR Norepinephrine Bitartrate 32 mg/ Sodium Chloride 250 ml @ 0.938 mls/ hr Q24H IV 05/21/25 01:00 05/24/25 06:45 0.938 MLS/HR Pantoprazole Sodium 40 mg DAILY IV 05/21/25 10:00 05/24/25 10:03 40 MG Artificial Tears 1 drop Q6HP PRN EACHEYE 05/21/25 05:00 Bumetanide 25 mg/ Miscellaneous 100 ml @ 4 mls/hr Q24H IV 05/21/25 10:30 05/24/25 10:03 4 MLS/HR Diagnostic Test (Pha) 1 strip Q6HR 05/23/25 00:00 05/24/25 11:36 1 STRIP Insulin Human Regular FOLLOW SLIDING SCALE Q6HR SC 05/23/25 00:00 05/23/25 11:24 4 UNITS Dextrose 50 ml UD IV 05/22/25 22:00 05/24/25 11:36 50 ML Fentanyl Citrate 250 ml @ 2.5 mls/hr Q24H IV 05/23/25 14:00 05/24/25 05:56 15 MLS/HR Midazolam HCl 50 ml @ 1 mls/hr Q24H IV 05/23/25 16:15 05/24/25 02:15 2 MLS/HR Enteral Nutritional Formula 1,000 ml 30ML/HR GT 05/23/25 19:15 Vancomycin HCl 0 ml @ 0 mls/hr UD IV 05/23/25 19:30 Albumin Human 100 ml @ 100 mls/hr PRN PRN IV 05/24/25 06:45 05/24/25 08:02 100 MLS/HR Aspirin 81 mg DAILY PO 05/24/25 10:00 laboratory and microbiology Laboratory Tests 05/24/25 04:45 Test 05/24/25 04:45 Range/Units Serum Glucose 93 74-106 mg/dL Assessment/Plan Impression Acute hypoxemic respiratory failure Atelectasis Fluid overload Pleural effusions Patient seen and examined in the ICU Events Placed on mechanical ventilation S/p re-intubation PEEP 5, FiO2 40% Labs and imaging reviewed Chest x-ray significantly worse, reaccumulation of fluid likely Patient thrombocytopenic, ? gram-negative sepsis LFT's and alkaline phosphate elevated ABG reviewed Management plan Vent support Titrate to maintain sats 90% or above Sedation for vent synchrony Continue antibiotics F/u cultures Bronchodilators Monitor renal function Monitor electrolytes Supplement as needed Pressors as needed for hemodynamic support To maintain a mean arterial pressure of 65 mmHg Procedures deferred in view of thrombocytopenia Critical care time 35 minutes Dietary Evaluation Review Comments: 1) Advance to [facility] 75gm + cardiac diet 2) Armen 1 pk BID, MVI w/ minerals 1 tab daily, VitC 500mg BID, Zinc sulfate 220mg BID x 10 days 3) Monitor NPO status, lab values, weight trend, and I/O Expected Outcomes/Goals: To meet >75% estimated needs Wound to improve Fu 2-3 days Plan discussed with: Other (Rn) DELROY REDD MD May 24, 2025 13:09
--- NOTE | 2025-05-24 13:44 | DVH ---
INDICATION: ELEVATED LIVER ENZYMES TECHNIQUE: Multiple real-time sonographic images were obtained of the right upper quadrant. COMPARISON: US KIDNEY on DOS: 05/16/25, US GALLBLADDER on DOS: 04/05/25, US KIDNEY RETROPERITONEUM on DO S: 03/22/25, US RENAL ARTERY DOPPLER on DOS: 03/22/25, US KIDNEY on DOS: 02/23/25 FINDINGS: The liver demonstrates coarsened echotexture without focal mass lesions. The liver measures 17 cm. Common bile duct is not well visualized due to obscuration from bowel gas. Gallstones and gallbladder wall thickening. The gallbladder wall measures 3 mm and is within normal limits. The right kidney measures 9.0 cm. The right kidney is normal in contour, size, and shape. The echoge nicity is increased. There is no hydronephrosis. The pancreas is not well visualized due to overlying bowel gas. IMPRESSION: Coarsened liver echotexture suggestive of chronic liver disease. Gallstones and gallbladder wall thickening. If concern for acute cholecystitis, consider further eval uation nuclear medicine scan. Echogenic right kidney suggestive of chronic renal disease. No hydronephrosis.
[2025-05-24 14:26] LABS: Hematocrit 23.9 % (41.0-53.0); Hemoglobin 8.2 g/dL (13.5-17.5); Mean Corpuscular Hemoglobin 32.9 pg (28.0-32.0); Mean Corpuscular Volume 95.6 fL (80.0-100.0); Nucleated Red Blood Cells % 0.0 %
[2025-05-24 14:32] LABS: Albumin 3.3 g/dL (3.2-4.8); Anion Gap 17 (5-15); BUN/Creatinine Ratio 17.2 (10.0-20.0); Carbon Dioxide 25 mmol/L (20-31); Glucose 86 mg/dL (74-106); Magnesium 1.9 mg/dL (1.6-2.6)
[2025-05-24 14:38] LABS: Alanine Aminotransferase 295 U/L (7-40); Alkaline Phosphatase 310 U/L (46-116); Bilirubin, Total 1.6 mg/dL (0.2-1.0); Blood Urea Nitrogen 59 mg/dL (9-23); Calcium 7.2 mg/dL (8.7-10.4); Chloride 92 mmol/L (98-107); Potassium 3.4 mmol/L (3.5-5.1); Sodium 134 mmol/L (136-145); Total Protein 5.2 g/dL (5.7-8.2)
[2025-05-24 14:40] LABS: Lactic Acid w/Reflex 6.4 mmol/L (0.4-2.0)
--- NOTE | 2025-05-24 16:48 | DVHPN2 ---
Progress Note Date Seen: May 24, 2025 Medical Necessity Reason Pt with a Central, PICC or Fol: Yes The following are medically ne: Central Line, Leung Catheter Subjective Patient reports: Other (intubated) Review of Systems: Deferred Objective vital signs Vital Sign Date Time Temp Pulse Resp B/P (MAP) Pulse Ox O2 Delivery O2 Flow Rate FiO2 05/24/25 16:16 78 16 97/48 (64) 99 35 05/24/25 16:15 98.1 208.6 05/24/25 16:00 Mechanical Ventilator+ 05/23/25 09:58 50.0 Total Intake and Output 05/23/25 05/23/25 05/24/25 15:00 23:00 07:00 Intake Total 703 ml 181 ml 233.8 ml Output Total 100 ml 150 ml Balance 703 ml 81 ml 83.8 ml medications Current Medications Medications Dose Ordered Sig/Bandar Route Start Time Stop Time Status Last Admin Dose Admin Acetaminophen 650 mg Q6HP PRN PO 05/04/25 15:00 Clopidogrel Bisulfate 75 mg DAILY PO 05/07/25 10:00 05/24/25 15:47 75 MG Enteral Nutritional Formula 240 ml TIDWM PO 05/08/25 12:00 05/19/25 17:22 240 ML Atorvastatin Calcium 40 mg HS PO 05/17/25 22:00 Hold 05/20/25 22:20 40 MG Meropenem 50 ml @ 17 mls/hr Q12H IV 05/19/25 11:00 05/24/25 10:07 17 MLS/HR Sodium Chloride 10 ml QSHIFT@10,22 IV 05/19/25 22:00 05/24/25 10:03 10 ML Ondansetron HCl 4 mg Q4HP PRN IV 05/20/25 09:30 05/23/25 07:42 4 MG Vasopressin 20 units/Sodium Chloride 100 ml @ 9 mls/hr Q11H7M IV 05/20/25 19:45 05/22/25 02:01 9 MLS/HR Norepinephrine Bitartrate 32 mg/ Sodium Chloride 250 ml @ 0.938 mls/ hr Q24H IV 05/21/25 01:00 05/24/25 06:45 0.938 MLS/HR Pantoprazole Sodium 40 mg DAILY IV 05/21/25 10:00 05/24/25 10:03 40 MG Artificial Tears 1 drop Q6HP PRN EACHEYE 05/21/25 05:00 Bumetanide 25 mg/ Miscellaneous 100 ml @ 4 mls/hr Q24H IV 05/21/25 10:30 05/24/25 10:03 4 MLS/HR Diagnostic Test (Pha) 1 strip Q6HR 05/23/25 00:00 05/24/25 11:36 1 STRIP Insulin Human Regular FOLLOW SLIDING SCALE Q6HR SC 05/23/25 00:00 05/23/25 11:24 4 UNITS Dextrose 50 ml UD IV 05/22/25 22:00 05/24/25 11:36 50 ML Fentanyl Citrate 250 ml @ 2.5 mls/hr Q24H IV 05/23/25 14:00 05/24/25 05:56 15 MLS/HR Midazolam HCl 50 ml @ 1 mls/hr Q24H IV 05/23/25 16:15 05/24/25 02:15 2 MLS/HR Enteral Nutritional Formula 1,000 ml 30ML/HR GT 05/23/25 19:15 Vancomycin HCl 0 ml @ 0 mls/hr UD IV 05/23/25 19:30 Albumin Human 100 ml @ 100 mls/hr PRN PRN IV 05/24/25 06:45 05/24/25 08:02 100 MLS/HR Aspirin 81 mg DAILY PO 05/24/25 10:00 Hold 05/24/25 15:47 81 MG Examination: GENERAL:Abnormal, MSK:Abnormal, SKIN:Abnormal, NEURO:Abnormal laboratory and microbiology Laboratory Tests 05/24/25 13:50 Test 05/24/25 13:50 Range/Units Serum Glucose 86 74-106 mg/dL Microbiology Date/Time Source Procedure Growth Status 05/23/25 14:15 Sputum Gram Stain - Final Resulted 05/23/25 14:15 Sputum Respiratory Culture - Preliminary Resulted 05/20/25 18:09 Nose MRSA Screen - Final Complete 05/20/25 01:02 Urine - Leung Port Urine Culture - Final Yeast, not Dulce albicans Complete 05/19/25 08:14 Blood Blood Culture - Final NO GROWTH AFTER 5 DAYS OF INCUBATION. Complete Problem List/Assessment/Plan Problem List/Assessment/Plan Acute kidney injury superimposed Chronic Kidney Disease stage IV secondary hemodynamic mediated, FeNa < 1% Chronic kidney disease stage IV followed by Dr. Ponce Gangrene left foot, status post left below-knee amputation 05/20 Left lower extremity DVT Diabetes mellitus type 2 Chronic diastolic Congestive heart failure NSTEMI Hyponatremia due to excess H2O Dropping hemoglobin Anemia due to blood loss Metabolic acidosis Septic shock History of testicular cancer Cellulitis lower extremity thrombocytopenia Recommendations HD today uf 3L low platelets---no heparin with HD next HD tomorrow on bumex drip Plan discussed with: Other My Orders My Orders Orders - SHANTANU BECK MD Procedure Category Date Status Time Albumin 25% (Albutein) PHA 05/24/25 In Process 06:45 Hemodialysis Orders ORDERS 05/24/25 Transmitted 07:56 Dialysis Nursing SAL[facility]OR 05/24/25 In Process Message 07:56 Document Fluid Input SALVADOR 05/24/25 In Process And Outpu 07:56 Acute Hepatitis Panel LAB 05/24/25 In Process 07:56 Dietary Evaluation Review Comments: 1) [facility] + cardiac diet 2) Armen 1 pk BID, MVI w/ minerals 1 tab daily, VitC 500mg BID, Zinc sulfate 220mg BID x 10 days 3) Monitor NPO status, lab values, weight trend, and I/O Expected Outcomes/Goals: To meet >75% estimated needs Wound to improve Fu 2-3 days Critical Care Time (mins): 39 SHANTANU BECK MD May 24, 2025 16:48
[2025-05-24] MEDS: PYRIDOXINE HCL 50 MG TAB PO ONE (18:15)
[2025-05-24] MEDS: MULTIPLE VITAMIN TAB PO ONE (22:55)
[2025-05-24] MEDS: CYANOCOBALAMIN (B-12) 1000 MCG/1 ML VIAL SUBCUT ONE (22:55)
[2025-05-24] MEDS: FOLIC ACID 1 MG TAB PO ONE (22:55)
[2025-05-25] VITALS (96 sets, daily range): BP systolic 78–147; BP diastolic 36–72; PULSE 6–98; RESP 9–19; TEMP 97.2–99.1; O2SAT 93–100
[2025-05-25] MEDS: DEXTROSE 10% 1,000 ML IV ONE ×2 (00:28→02:05)
[2025-05-25 04:09] LABS: Anion Gap 21 (5-15); BUN/Creatinine Ratio 15.0 (10.0-20.0); Carbon Dioxide 22 mmol/L (20-31); Glucose 90 mg/dL (74-106); Magnesium 2.0 mg/dL (1.6-2.6)
[2025-05-25 04:14] LABS: Hematocrit 23.6 % (41.0-53.0); Hemoglobin 8.3 g/dL (13.5-17.5)
[2025-05-25 04:16] LABS: Alanine Aminotransferase 213 U/L (7-40); Albumin 3.0 g/dL (3.2-4.8); Alkaline Phosphatase 280 U/L (46-116); Bilirubin, Total 1.2 mg/dL (0.2-1.0); Blood Urea Nitrogen 54 mg/dL (9-23); Calcium 7.5 mg/dL (8.7-10.4); Chloride 90 mmol/L (98-107); Lactic Acid w/Reflex 7.7 mmol/L (0.4-2.0); Potassium 3.5 mmol/L (3.5-5.1); Sodium 133 mmol/L (136-145); Total Protein 5.0 g/dL (5.7-8.2)
[2025-05-25 04:18] LABS: Mean Corpuscular Hemoglobin 32.9 pg (28.0-32.0); Mean Corpuscular Volume 94.2 fL (80.0-100.0); Nucleated Red Blood Cells % 0.1 %
--- NOTE | 2025-05-25 05:49 | DVH ---
CHEST RADIOGRAPH Indication: ET intubation Technique: Single frontal view of the chest was obtained COMPARISON: XY CHEST XRAY 1 VIEW on DOS: 05/24/25, XY CHEST PORTABLE on DOS: 05/23/25, XY CHEST PORTABL E on DOS: 05/23/25, XY CHEST PORTABLE on DOS: 05/23/25, XY CHEST PORTABLE on DOS: 05/22/25 FINDINGS: Lines and Tubes: Unchanged. Lungs: Grossly stable appearing bilateral pleural effusions and bibasilar pulmonary airspace disease. No pneumothorax. Cardiomediastinal contours: Cardiomegaly. Bones: Unremarkable IMPRESSION: 1. Stable bibasilar pulmonary airspace disease and bilateral pleural effusions. 2. Cardiomegaly. 3. Lines and tubes unchanged.
[2025-05-25 07:00] LABS: Base Excess -3.9 mmol/L (-2.0-3.0)
[2025-05-25] MEDS: PYRIDOXINE HCL 50 MG TAB PO SCH (10:00)
[2025-05-25 10:51] LABS: Hepatitis B Surface Antigen Negative (Negative)
[2025-05-25 11:09] LABS: Hepatitis C Antibody Negative (Negative)
[2025-05-25] MEDS: CYANOCOBALAMIN 500 MCG TAB PO SCH (11:47)
[2025-05-25] MEDS: MULTIPLE VITAMIN TAB PO SCH (11:47)
[2025-05-25] MEDS: FOLIC ACID 1 MG TAB PO SCH (11:47)
--- NOTE | 2025-05-25 12:10 | DVHPN2 ---
Progress Note - Dictate Date Seen: May 25, 2025 Medical Necessity Reason Pt with a Central, PICC or Fol: Yes The following are medically ne: Central Line, Leung Catheter vital signs Vital Sign Date Time Temp Pulse Resp B/P (MAP) Pulse Ox O2 Delivery O2 Flow Rate FiO2 05/25/25 11:40 30 05/25/25 11:40 16 98 Mechanical Ventilator+ 05/25/25 11:40 91 05/25/25 11:18 116/57 (76) 05/25/25 10:45 97.9 208.2 05/23/25 09:58 50.0 Total Intake and Output 05/24/25 05/24/25 05/25/25 15:00 23:00 07:00 Intake Total 424.625 ml 533.000 ml 976.000 ml Output Total 3000 ml 40 ml 30 ml Balance -2575.375 ml 493.000 ml 946.000 ml medications Current Medications Medications Dose Ordered Sig/Bandar Route Start Time Stop Time Status Last Admin Dose Admin Acetaminophen 650 mg Q6HP PRN PO 05/04/25 15:00 Clopidogrel Bisulfate 75 mg DAILY PO 05/07/25 10:00 05/25/25 11:47 75 MG Enteral Nutritional Formula 240 ml TIDWM PO 05/08/25 12:00 05/19/25 17:22 240 ML Atorvastatin Calcium 40 mg HS PO 05/17/25 22:00 Hold 05/20/25 22:20 40 MG Meropenem 50 ml @ 17 mls/hr Q12H IV 05/19/25 11:00 05/25/25 11:00 17 MLS/HR Sodium Chloride 10 ml QSHIFT@10,22 IV 05/19/25 22:00 05/24/25 22:56 10 ML Ondansetron HCl 4 mg Q4HP PRN IV 05/20/25 09:30 05/23/25 07:42 4 MG Vasopressin 20 units/Sodium Chloride 100 ml @ 9 mls/hr Q11H7M IV 05/20/25 19:45 05/22/25 02:01 9 MLS/HR Norepinephrine Bitartrate 32 mg/ Sodium Chloride 250 ml @ 0.938 mls/ hr Q24H IV 05/21/25 01:00 05/24/25 06:45 0.938 MLS/HR Pantoprazole Sodium 40 mg DAILY IV 05/21/25 10:00 05/25/25 11:47 40 MG Artificial Tears 1 drop Q6HP PRN EACHEYE 05/21/25 05:00 Diagnostic Test (Pha) 1 strip Q6HR 05/23/25 00:00 05/25/25 06:03 1 STRIP Insulin Human Regular FOLLOW SLIDING SCALE Q6HR SC 05/23/25 00:00 05/23/25 11:24 4 UNITS Dextrose 50 ml UD IV 05/22/25 22:00 05/24/25 11:36 50 ML Fentanyl Citrate 250 ml @ 2.5 mls/hr Q24H IV 05/23/25 14:00 05/24/25 23:07 15 MLS/HR Midazolam HCl 50 ml @ 1 mls/hr Q24H IV 05/23/25 16:15 05/25/25 05:27 2 MLS/HR Vancomycin HCl 0 ml @ 0 mls/hr UD IV 05/23/25 19:30 Albumin Human 100 ml @ 100 mls/hr PRN PRN IV 05/24/25 06:45 05/24/25 08:02 100 MLS/HR Aspirin 81 mg DAILY PO 05/24/25 10:00 Hold 05/24/25 15:47 81 MG Enteral Nutritional Formula 1,000 ml 50ML/HR GT 05/24/25 17:30 Folic Acid 1 mg DAILY PO 05/25/25 10:00 05/25/25 11:47 1 MG Multivitamins 1 tab DAILY PO 05/25/25 10:00 05/25/25 11:47 1 TAB Cyanocobalamin 1,000 mcg DAILY PO 05/25/25 10:00 05/25/25 11:47 1,000 MCG Pyridoxine HCl 50 mg DAILY PO 05/25/25 10:00 laboratory and microbiology Laboratory Tests 05/25/25 03:26 Test 05/25/25 03:26 Range/Units Serum Glucose 90 74-106 mg/dL Assessment/Plan Impression Acute hypoxemic respiratory failure Atelectasis Fluid overload Pleural effusions Patient seen and examined in the ICU Events on mechanical ventilation S/p re-intubation PEEP 5, FiO2 40% abg reviewed Labs and imaging reviewed Chest x-ray significantly worse, reaccumulation of fluid likely Patient thrombocytopenic, s/p Tx PLT 28 US liver noted HIDA suggested Management plan Vent support Titrate to maintain sats 90% or above Sedation for vent synchrony Continue antibiotics F/u cultures Bronchodilators Monitor renal function Monitor electrolytes Supplement as needed Pressors as needed for hemodynamic support To maintain a mean arterial pressure of 65 mmHg Procedures deferred in view of thrombocytopenia Critical care time 35 minutes Dietary Evaluation Review Comments: 1) Advance to [facility] 75gm + cardiac diet 2) Armen 1 pk BID, MVI w/ minerals 1 tab daily, VitC 500mg BID, Zinc sulfate 220mg BID x 10 days 3) Monitor NPO status, lab values, weight trend, and I/O Expected Outcomes/Goals: To meet >75% estimated needs Wound to improve Fu 2-3 days Plan discussed with: Other (rn) DELROY REDD MD May 25, 2025 12:10
--- NOTE | 2025-05-25 14:29 | DVH ---
Date: 05/25/2025 01:55 PM Examination: XY KUB ABDOMEN SINGLE VIEW History: Rule out ileus Comparison: US ABDOMEN LIMITED on DOS: 05/24/25, US KIDNEY on DOS: 05/16/25, US KIDNEY RETROPERITONEUM o n DOS: 03/22/25, US RENAL ARTERY DOPPLER on DOS: 03/22/25, US KIDNEY on DOS: 02/23/25 TECHNIQUE: Frontal views of the abdomen was obtained. FINDINGS: Bowel gas pattern is unremarkable. The lung bases are unremarkable. No acute osseous abnormality identified. IMPRESSION: Nonobstructive bowel gas pattern. Nasogastric tube tip in the stomach. Leung catheter within the bladder Large stool burden.
--- NOTE | 2025-05-25 14:50 | DVHPNRES ---
Progress Note Date Seen: May 25, 2025 Resident Creating Document: DANA MERCADO RESIDENT Medical Necessity Reason Pt with a Central, PICC or Fol: Yes The following are medically ne: Central Line, Leung Catheter Subjective Review of Systems Osmel Joy 74-year-old male who presents to the ER with a history of left leg purple discoloration since last 3 days. He denies any chest pain, shortness of breath, abdominal pain or any other complaints today. The patient was admitted at [facility] in February, during the time the patient underwent debridements of the right foot. The patient is not taking Eliquis due to bruising, his home health hospice nurse advised him to stop Eliquis. Past medical history: Hypertension, diabetes, dyslipidemia, CAD severe triple- vessel disease non revascularized due to patient's refusal of CABG, testicular cancer, CKD on stage III, diabetic peripheral neuropathy, left lower extremity DVT, PAD, diabetic foot s/p toe amputation, bed bound for 3 months, spina bifida. Was on hospice, but revoked for this admission. Past surgical history: Tonsillectomy, debridement of necrotic right toe. Family history: Noncontributory Social history: Lives in [place] with son (BALAJIK). Denies tobacco, alcohol and other drug abuse Allergies: No known allergy Home medications: Apixaban, linezolid, pantoprazole, atorvastatin, carvedilol, tamsulosin, amlodipine, aspirin, hydrocodone acetaminophen, rifampin PCP: Dr. Avendano Patient seen and examined at bedside. Currently ICU status on sedoanalgesia due to mechanical assisted ventilation, on IV vasopressors during hemodialysis session, on empiric IV antibiotic. Can not obtain review of systems. Objective vital signs Vital Sign Date Time Temp Pulse Resp B/P (MAP) Pulse Ox O2 Delivery O2 Flow Rate FiO2 05/25/25 12:49 101/49 05/25/25 11:40 30 05/25/25 11:40 16 98 Mechanical Ventilator+ 05/25/25 11:40 91 05/25/25 10:45 97.9 208.2 05/23/25 09:58 50.0 Total Intake and Output 05/24/25 05/24/25 05/25/25 15:00 23:00 07:00 Intake Total 424.625 ml 533.000 ml 976.000 ml Output Total 3000 ml 40 ml 30 ml Balance -2575.375 ml 493.000 ml 946.000 ml medications Current Medications Medications Dose Ordered Sig/Bandar Route Start Time Stop Time Status Last Admin Dose Admin Acetaminophen 650 mg Q6HP PRN PO 05/04/25 15:00 Clopidogrel Bisulfate 75 mg DAILY PO 05/07/25 10:00 05/25/25 11:47 75 MG Atorvastatin Calcium 40 mg HS PO 05/17/25 22:00 Hold 05/20/25 22:20 40 MG Meropenem 50 ml @ 17 mls/hr Q12H IV 05/19/25 11:00 05/25/25 11:00 17 MLS/HR Sodium Chloride 10 ml QSHIFT@10,22 IV 05/19/25 22:00 05/24/25 22:56 10 ML Norepinephrine Bitartrate 32 mg/ Sodium Chloride 250 ml @ 0.938 mls/ hr Q24H IV 05/21/25 01:00 05/24/25 06:45 0.938 MLS/HR Pantoprazole Sodium 40 mg DAILY IV 05/21/25 10:00 05/25/25 11:47 40 MG Artificial Tears 1 drop Q6HP PRN EACHEYE 05/21/25 05:00 Diagnostic Test (Pha) 1 strip Q6HR 05/23/25 00:00 05/25/25 06:03 1 STRIP Insulin Human Regular FOLLOW SLIDING SCALE Q6HR SC 05/23/25 00:00 05/23/25 11:24 4 UNITS Dextrose 50 ml UD IV 05/22/25 22:00 05/24/25 11:36 50 ML Fentanyl Citrate 250 ml @ 2.5 mls/hr Q24H IV 05/23/25 14:00 05/24/25 23:07 15 MLS/HR Midazolam HCl 50 ml @ 1 mls/hr Q24H IV 05/23/25 16:15 05/25/25 12:49 2 MLS/HR Vancomycin HCl 0 ml @ 0 mls/hr UD IV 05/23/25 19:30 Albumin Human 100 ml @ 100 mls/hr PRN PRN IV 05/24/25 06:45 05/24/25 08:02 100 MLS/HR Aspirin 81 mg DAILY PO 05/24/25 10:00 Hold 05/24/25 15:47 81 MG Enteral Nutritional Formula 1,000 ml 50ML/HR GT 05/24/25 17:30 Folic Acid 1 mg DAILY PO 05/25/25 10:00 05/25/25 11:47 1 MG Multivitamins 1 tab DAILY PO 05/25/25 10:00 05/25/25 11:47 1 TAB Cyanocobalamin 1,000 mcg DAILY PO 05/25/25 10:00 05/25/25 11:47 1,000 MCG Pyridoxine HCl 50 mg DAILY PO 05/25/25 10:00 Ondansetron HCl 4 mg Q4HPRN PRN IV 05/25/25 18:00 Examination Patient lying in bed, under sedoanalgesia due to mechanical ventilation General: RASS -3, afebrile, mucosae are moist. Presents hemodialysis catheter in right internal jugular area Cardiovascular: Normal S1 and S2. No murmurs, gallops or rubs Respiratory: Mechanically assisted ventilation, equal bilateral airway entree. Clear lung sounds on auscultation Abdomen: Soft, nontender, no organomegaly, reduced bowel sounds MSK/skin: Mobilization of limbs cannot be evaluated. Skin is dry and warm. Left lower limb [id number] amputation, no active bleeding from site, drainage is empty Neurological: Orientation cannot be assessed. No apparent motor no sensitive deficits. Pupils are isocoric and reactive laboratory and microbiology Laboratory Tests 05/25/25 03:26 Test 05/25/25 03:26 Range/Units Serum Glucose 90 74-106 mg/dL Microbiology Date/Time Source Procedure Growth Status 05/23/25 14:15 Sputum Gram Stain - Final Resulted 05/23/25 14:15 Respiratory Culture - Preliminary Pseudomonas aeruginosa Resulted 05/20/25 18:09 Nose MRSA Screen - Final Complete 05/20/25 01:02 Urine - Leung Port Urine Culture - Final Yeast, not Dulce albicans Complete 05/19/25 08:14 Blood Blood Culture - Final NO GROWTH AFTER 5 DAYS OF INCUBATION. Complete Problem List/Assessment/Plan Problem List/Assessment/Plan # Metabolic encephalopathy secondary to septic shock due to osteomyelitis of left foot (status post [id number] amputation) # Sedation Completed endotracheal intubation on 05/23/2025. Currently on sedoanalgesia # Acute respiratory failure secondary to cardiorenal syndrome # Cardiorenal syndrome probable type 3 # Acute on chronic diastolic congestive heart failure # Aspiration pneumonia to Pseudomonas Currently on mechanical assisted ventilation (VCV, VT 400 RR 16 PEEP 5 and FiO2 30%) Refractory to Bumex drip. On hemodialysis session, 1st session on 05/24/2025 # Septic shock secondary to aspiration pneumonia to Pseudomonas versus osteomyelitis of left foot - s/p I&D and BKA # Left Toe Dry Gangrene due to Severe PAD # Severe Peripheral Arterial Disease (PAD) # History of right and left Toe Osteomyelitis Podiatry on board: Completed I and D on 05/17/2025 which showed extensive osteomyelitis of left foot, indicate BKA which was completed on 05/19/2025 Left SFA stenting completed on 05/06/2025; right lower extremity angiogram was canceled due to patient's elevated creatinine most probably due to contrast,status post left-sided stent placement. Right SFA stenosis to be rescheduled Under empiric IV antibiotic (meropenem and vancomycin, previously on linezolid and ceftriaxone). Planning on changing to vancomycin due to thrombocytopenia, once hemodialysis started Lactic acid up trending. Currently on intermittent IV vasopressor (norepinephrine) during hemodialysis session Pulmonology on board: We will eventually complete bronchoscopy once platelets improve # Severe anemia probably secondary to sepsis - s/p PRBCs transfusions # Severe anemia in patient on anticoagulation # Normocytic hypochromic anemia due to chronic disease (CKD/sepsis) # Hematoma in the right upper arm # Left Lower Extremity DVT (Popliteal Vein) No signs symptoms of active bleeding FOBT negative Doppler of the right upper extremity: No DVT, Anechoic structure with internal lace-like reticulations in the inner upper arm which could reflect a hematoma Continued anticoagulation according to Cardiology recommendations, as the patient is high risk status post left lower extremity stent placement. IVC filter placement is under consideration. Patient is on Plavix and enoxaparin, discontinued aspirin per Cardiology recommendations. Discontinued heparin due to thrombocytopenia Ordered 1 unit of platelets # AD hemodynamically mediated (VMN) on CKD # Chronic Kidney Disease Stage III # Anion gap metabolic acidosis due to sepsis Monitor renal function and electrolytes. Avoid nephrotoxic agents. Adjust medications as needed for renal dosing. Nephrology was consulted: Optimize medical therapy (indicated bicarbonate pills), discontinued IV fluids and indicated IV diuretics (bumex drip), IV vasopressors and on bicarbonate drip. Patient refractory to medical treatment, planning on initiating hemodialysis. # NSTEMI Type 2 (Demand Ischemia) # History of Severe Triple-Vessel CAD (Declined CABG) # Acute on chronic diastolic congestive heart failure (HFpEF, LVEF 50-55%) # Hypertensive Heart Disease with Diastolic Dysfunction and LVH Continue medical management. Continue medical management. Patient on enoxaparin and Plavix, discontinue aspirin Currently on IV diuretics (40 mg furosemide daily) Cardiac diet. # Hyperkalemia Treated with Lokelma, albuterol, bicarbonate, and calcium. Monitor potassium levels. # Transaminitis # Ruled out Ileus Monitor liver enzymes. Review medications for hepatotoxicity. Hold atorvastatin Completed KUB which showed normal gas pattern. Gastric residual volume was 700. We will indicate trickle feedings at this time with Zofran. # Type 2 Diabetes Mellitus with Peripheral Neuropathy - Controlled (hemoglobin A1c 6.7%) # Hyperlipidemia Diet controlled. Hold atirvastatin due to transaminitis Monitor lipid panel. # History of Testicular Cancer # Gait instability - partially bed-bound Patient benefitted with physical therapy once extubated Nutrition: Glucerna Prophylaxis for PUD and DVT: Pantoprazole and SCDs Lines 05/21/2025 PICC line 05/23/2025 ET tube 05/23/2025 NG tube 05/23/2025 HD catheter Drips Norepineprhine 2 (increases to 8 in HD sessions) Bumex drip Fentanyl Midazolam Goals of care discussions, full code status. More than 19 minute spent with patient. Case discussed with Dr. York, patient, family (son) and nurses: Currently in ICU status, on mechanical assisted ventilation, requiring intermittent IV vasopressors during hemodialysis session, on empiric IV antibiotic. We will complete bronchoscopy once platelets improve, continuously presents sputum with Pseudomonas. Patient has poor prognosis. Critical care time spent including discussion with nursing and family, excluding procedures: 69 minutes Plan discussed with: Son (Did not crop picker phone call, has no voicemail), Other (Nurses) My Orders My Orders Orders - DANA MERCADO RESIDENT Procedure Category Date Status Time Abg W/ Co-Ox RT 05/25/25 Logged 04:00 Folic Acid Tablet PHA 05/25/25 In Process 10:00 Multiple Vitamin PHA 05/25/25 In Process Tablet (Mvi Tab) 10:00 Cyanocobalamin PHA 05/25/25 In Process (Vitamin B-12) 10:00 Pyridoxine Hcl Tablet PHA 05/25/25 In Process (Vitamin B-6 Table 10:00 Respiratory Misc. RT 05/25/25 Transmitted Order 07:38 Complete Blood Count LAB 05/26/25 Verified 04:00 Creatinine LAB 05/26/25 Verified 04:00 Vancomycin,Random LAB 05/26/25 Verified 04:00 Kub Abdomen Single XY 05/25/25 Resulted View 13:37 Ondansetron Hcl PHA 05/25/25 In Process (Zofran) 18:00 Dietary Evaluation Review Comments: 1) Advance to [facility] 75gm + cardiac diet 2) Armen 1 pk BID, MVI w/ minerals 1 tab daily, VitC 500mg BID, Zinc sulfate 220mg BID x 10 days 3) Monitor NPO status, lab values, weight trend, and I/O Expected Outcomes/Goals: To meet >75% estimated needs Wound to improve Fu 2-3 days Date of Service: May 25, 2025 Billing Provider: LAUREN YORK MD Common Visit Codes: [id number] CARE 30-74 MIN (crit care time 40 minutes) DANA MERCADO RESIDENT May 25, 2025 14:50 LAUREN YORK MD May 26, 2025 16:03
[2025-05-25 17:51] LABS: Hemoglobin 8.7 g/dL (13.5-17.5)
[2025-05-25 17:54] LABS: Hematocrit 25.4 % (41.0-53.0); Mean Corpuscular Hemoglobin 33.2 pg (28.0-32.0); Mean Corpuscular Volume 96.7 fL (80.0-100.0); Nucleated Red Blood Cells % 0.1 %
[2025-05-25] MEDS ORDERED: ONDANSETRON HCL 4 MG/2 ML VIAL IV PRN (18:00)
[2025-05-25 18:02] LABS: Anion Gap 16 (5-15); BUN/Creatinine Ratio 12.0 (10.0-20.0); Carbon Dioxide 24 mmol/L (20-31); Potassium 3.7 mmol/L (3.5-5.1); Sodium 136 mmol/L (136-145)
[2025-05-25 18:05] LABS: Alanine Aminotransferase 164 U/L (7-40); Albumin 2.8 g/dL (3.2-4.8); Alkaline Phosphatase 255 U/L (46-116); Bilirubin, Total 1.2 mg/dL (0.2-1.0); Blood Urea Nitrogen 33 mg/dL (9-23); Calcium 7.4 mg/dL (8.7-10.4); Chloride 96 mmol/L (98-107); Glucose 107 mg/dL (74-106); Total Protein 4.7 g/dL (5.7-8.2)
[2025-05-25] MEDS: ONDANSETRON HCL 4 MG/2 ML VIAL IV ONE (18:23)
[2025-05-25 18:38] LABS: Lactic Acid w/Reflex 5.5 mmol/L (0.4-2.0)
[2025-05-25 19:03] LABS: Anisocytosis Slight
--- NOTE | 2025-05-25 19:07 | DVHPN2 ---
Progress Note Date Seen: May 25, 2025 Medical Necessity Reason Pt with a Central, PICC or Fol: Yes The following are medically ne: Central Line, Leung Catheter Subjective Patient reports: Other (Patient remains intubated) Review of Systems: Deferred Objective vital signs Vital Sign Date Time Temp Pulse Resp B/P (MAP) Pulse Ox O2 Delivery O2 Flow Rate FiO2 05/25/25 18:12 75 05/25/25 18:12 30 05/25/25 18:12 16 98 Mechanical Ventilator+ 05/25/25 16:00 100/47 (64) 05/25/25 10:45 97.9 208.2 05/23/25 09:58 50.0 Total Intake and Output 05/24/25 05/24/25 05/25/25 15:00 23:00 07:00 Intake Total 424.625 ml 533.000 ml 976.000 ml Output Total 3000 ml 40 ml 30 ml Balance -2575.375 ml 493.000 ml 946.000 ml medications Current Medications Medications Dose Ordered Sig/Bandar Route Start Time Stop Time Status Last Admin Dose Admin Acetaminophen 650 mg Q6HP PRN PO 05/04/25 15:00 Clopidogrel Bisulfate 75 mg DAILY PO 05/07/25 10:00 05/25/25 11:47 75 MG Atorvastatin Calcium 40 mg HS PO 05/17/25 22:00 Hold 05/20/25 22:20 40 MG Meropenem 50 ml @ 17 mls/hr Q12H IV 05/19/25 11:00 05/25/25 11:00 17 MLS/HR Sodium Chloride 10 ml QSHIFT@10,22 IV 05/19/25 22:00 05/24/25 22:56 10 ML Norepinephrine Bitartrate 32 mg/ Sodium Chloride 250 ml @ 0.938 mls/ hr Q24H IV 05/21/25 01:00 05/24/25 06:45 0.938 MLS/HR Pantoprazole Sodium 40 mg DAILY IV 05/21/25 10:00 05/25/25 11:47 40 MG Artificial Tears 1 drop Q6HP PRN EACHEYE 05/21/25 05:00 Diagnostic Test (Pha) 1 strip Q6HR 05/23/25 00:00 05/25/25 18:23 1 STRIP Insulin Human Regular FOLLOW SLIDING SCALE Q6HR SC 05/23/25 00:00 05/23/25 11:24 4 UNITS Dextrose 50 ml UD IV 05/22/25 22:00 05/24/25 11:36 50 ML Fentanyl Citrate 250 ml @ 2.5 mls/hr Q24H IV 05/23/25 14:00 05/24/25 23:07 15 MLS/HR Midazolam HCl 50 ml @ 1 mls/hr Q24H IV 05/23/25 16:15 05/25/25 12:49 2 MLS/HR Vancomycin HCl 0 ml @ 0 mls/hr UD IV 05/23/25 19:30 Albumin Human 100 ml @ 100 mls/hr PRN PRN IV 05/24/25 06:45 05/24/25 08:02 100 MLS/HR Aspirin 81 mg DAILY PO 05/24/25 10:00 Hold 05/24/25 15:47 81 MG Enteral Nutritional Formula 1,000 ml 50ML/HR GT 05/24/25 17:30 Folic Acid 1 mg DAILY PO 05/25/25 10:00 05/25/25 11:47 1 MG Multivitamins 1 tab DAILY PO 05/25/25 10:00 05/25/25 11:47 1 TAB Cyanocobalamin 1,000 mcg DAILY PO 05/25/25 10:00 05/25/25 11:47 1,000 MCG Pyridoxine HCl 50 mg DAILY PO 05/25/25 10:00 Ondansetron HCl 4 mg Q4HPRN PRN IV 05/25/25 18:00 Examination: GENERAL:Abnormal (Positive edema generalized), LUNGS:Abnormal, MSK:Abnormal (BKA), SKIN:Abnormal, NEURO:Abnormal laboratory and microbiology Laboratory Tests 05/25/25 17:20 Test 05/25/25 17:20 Range/Units Serum Glucose 107 H 74-106 mg/dL Microbiology Date/Time Source Procedure Growth Status 05/23/25 14:15 Sputum Gram Stain - Final Resulted 05/23/25 14:15 Respiratory Culture - Preliminary Pseudomonas aeruginosa Resulted 05/20/25 18:09 Nose MRSA Screen - Final Complete 05/20/25 01:02 Urine - Leung Port Urine Culture - Final Yeast, not Dulce albicans Complete 05/19/25 08:14 Blood Blood Culture - Final NO GROWTH AFTER 5 DAYS OF INCUBATION. Complete Problem List/Assessment/Plan Problem List/Assessment/Plan Acute kidney injury superimposed Chronic Kidney Disease stage IV secondary hemodynamic mediated, FeNa < 1% Chronic kidney disease stage IV followed by Dr. Ponce Gangrene left foot, status post left below-knee amputation 05/20 Left lower extremity DVT Ventilator-dependent hypoxic respiratory failure intubated Diabetes mellitus type 2 Chronic diastolic Congestive heart failure NSTEMI Hyponatremia due to excess H2O Dropping hemoglobin Anemia due to blood loss Metabolic acidosis Septic shock History of testicular cancer Cellulitis lower extremity thrombocytopenia Recommendations HD today uf 3L//schedule HD tomorrow as well low platelets---no heparin with HD Remains oligo anuric Epogen with dialysis Guarded prognosis Plan discussed with: Other Dietary Evaluation Review Comments: 1) Advance to CCHO 75gm + cardiac diet 2) Armen 1 pk BID, MVI w/ minerals 1 tab daily, VitC 500mg BID, Zinc sulfate 220mg BID x 10 days 3) Monitor NPO status, lab values, weight trend, and I/O Expected Outcomes/Goals: To meet >75% estimated needs Wound to improve Fu 2-3 days Critical Care Time (mins): 39 SHANTANU BECK MD May 25, 2025 19:07
[2025-05-25] MEDS: diphenhdrAMINE HCL 12.5 MG/5 ML UD PO ONE (22:48)
[2025-05-26] VITALS (111 sets, daily range): BP systolic 93–150; BP diastolic 40–69; PULSE 59–81; RESP 11–20; TEMP 85.6–99.1; O2SAT 97–100
[2025-05-26 03:57] LABS: Anion Gap 18 (5-15); BUN/Creatinine Ratio 13.1 (10.0-20.0); Carbon Dioxide 24 mmol/L (20-31); Hemoglobin 8.2 g/dL (13.5-17.5); Nucleated Red Blood Cells % 0.1 %; Potassium 3.7 mmol/L (3.5-5.1); Sodium 136 mmol/L (136-145)
[2025-05-26 04:00] LABS: Hematocrit 23.4 % (41.0-53.0); Mean Corpuscular Hemoglobin 33.2 pg (28.0-32.0); Mean Corpuscular Volume 94.6 fL (80.0-100.0)
[2025-05-26 04:07] LABS: Lactic Acid w/Reflex 4.9 mmol/L (0.4-2.0)
[2025-05-26 04:09] LABS: Alanine Aminotransferase 134 U/L (7-40); Albumin 2.6 g/dL (3.2-4.8); Alkaline Phosphatase 224 U/L (46-116); Bilirubin, Total 1.3 mg/dL (0.2-1.0); Blood Urea Nitrogen 40 mg/dL (9-23); Calcium 7.7 mg/dL (8.7-10.4); Chloride 94 mmol/L (98-107); Glucose 136 mg/dL (74-106); Total Protein 4.5 g/dL (5.7-8.2)
--- NOTE | 2025-05-26 05:45 | DVH ---
CHEST RADIOGRAPH Indication: ET intubation Technique: Single frontal view of the chest was obtained COMPARISON: XY CHEST XRAY 1 VIEW on DOS: 05/25/25, XY CHEST XRAY 1 VIEW on DOS: 05/24/25, XY CHEST PORT ABLE on DOS: 05/23/25, XY CHEST PORTABLE on DOS: 05/23/25, XY CHEST PORTABLE on DOS: 05/23/25 FINDINGS: Lines and Tubes: Slight interval advancement of endotracheal tube such that the tip now projects appr oximately 1.5 cm above the level of the livier. Remaining lines and tubes unchanged. Lungs: Stable bilateral pleural effusions and Moderate Interval progression in Diffuse multifocal manolo ateral pulmonary airspace disease predominating in a perihilar and basilar distribution. No pneumothorax. Cardiomediastinal contours: Unremarkable Bones: Unremarkable IMPRESSION: 1. Interval advancement of endotracheal tube with the tip now projecting approximately 1.5 cm above t he level of the livier. Remaining lines and tubes unchanged. 2. Moderate interval progression in diffuse bilateral pulmonary airspace disease.
[2025-05-26 07:44] LABS: Base Excess 0.6 mmol/L (-2.0-3.0)
--- NOTE | 2025-05-26 09:21 | DVHPNRES ---
Progress Note Date Seen: May 26, 2025 Resident Creating Document: DANA MERCADO RESIDENT Medical Necessity Reason Pt with a Central, PICC or Fol: Yes The following are medically ne: Central Line, Leung Catheter Subjective Review of Systems Osmel Joy 74-year-old male who presents to the ER with a history of left leg purple discoloration since last 3 days. He denies any chest pain, shortness of breath, abdominal pain or any other complaints today. The patient was admitted at [facility] in February, during the time the patient underwent debridements of the right foot. The patient is not taking Eliquis due to bruising, his home health hospice nurse advised him to stop Eliquis. Past medical history: Hypertension, diabetes, dyslipidemia, CAD severe triple- vessel disease non revascularized due to patient's refusal of CABG, testicular cancer, CKD on stage III, diabetic peripheral neuropathy, left lower extremity DVT, PAD, diabetic foot s/p toe amputation, bed bound for 3 months, spina bifida. Was on hospice, but revoked for this admission. Past surgical history: Tonsillectomy, debridement of necrotic right toe. Family history: Noncontributory Social history: Lives in [place] with son (CHALO). Denies tobacco, alcohol and other drug abuse Allergies: No known allergy Home medications: Apixaban, linezolid, pantoprazole, atorvastatin, carvedilol, tamsulosin, amlodipine, aspirin, hydrocodone acetaminophen, rifampin PCP: Dr. Avendano Patient seen and examined at bedside. Currently ICU status on sedoanalgesia due to mechanical assisted ventilation, on IV vasopressors during hemodialysis session, on empiric IV antibiotic. Can not obtain review of systems. Objective vital signs Vital Sign Date Time Temp Pulse Resp B/P (MAP) Pulse Ox O2 Delivery O2 Flow Rate FiO2 05/26/25 08:00 64 16 99 Mechanical Ventilator+ 30 30 05/26/25 08:00 98.8 124/47 (72) 209.8 Total Intake and Output 05/25/25 05/25/25 05/26/25 15:00 23:00 07:00 Intake Total 395.000 ml 361.000 ml 109.375 ml Output Total 40 ml 150 ml Balance 395.000 ml 321.000 ml -40.625 ml medications Current Medications Medications Dose Ordered Sig/Bandar Route Start Time Stop Time Status Last Admin Dose Admin Acetaminophen 650 mg Q6HP PRN PO 05/04/25 15:00 Clopidogrel Bisulfate 75 mg DAILY PO 05/07/25 10:00 05/26/25 07:44 75 MG Atorvastatin Calcium 40 mg HS PO 05/17/25 22:00 Hold 05/20/25 22:20 40 MG Meropenem 50 ml @ 17 mls/hr Q12H IV 05/19/25 11:00 05/26/25 09:11 17 MLS/HR Sodium Chloride 10 ml QSHIFT@10,22 IV 05/19/25 22:00 05/26/25 07:44 10 ML Norepinephrine Bitartrate 32 mg/ Sodium Chloride 250 ml @ 0.938 mls/ hr Q24H IV 05/21/25 01:00 05/24/25 06:45 0.938 MLS/HR Pantoprazole Sodium 40 mg DAILY IV 05/21/25 10:00 05/26/25 07:44 40 MG Artificial Tears 1 drop Q6HP PRN EACHEYE 05/21/25 05:00 Diagnostic Test (Pha) 1 strip Q6HR 05/23/25 00:00 05/26/25 05:09 1 STRIP Insulin Human Regular FOLLOW SLIDING SCALE Q6HR SC 05/23/25 00:00 05/23/25 11:24 4 UNITS Dextrose 50 ml UD IV 05/22/25 22:00 05/24/25 11:36 50 ML Fentanyl Citrate 250 ml @ 2.5 mls/hr Q24H IV 05/23/25 14:00 05/25/25 22:51 15 MLS/HR Midazolam HCl 50 ml @ 1 mls/hr Q24H IV 05/23/25 16:15 05/25/25 22:52 2 MLS/HR Vancomycin HCl 0 ml @ 0 mls/hr UD IV 05/23/25 19:30 Albumin Human 100 ml @ 100 mls/hr PRN PRN IV 05/24/25 06:45 05/24/25 08:02 100 MLS/HR Aspirin 81 mg DAILY PO 05/24/25 10:00 Hold 05/24/25 15:47 81 MG Enteral Nutritional Formula 1,000 ml 50ML/HR GT 05/24/25 17:30 Folic Acid 1 mg DAILY PO 05/25/25 10:00 05/26/25 07:43 1 MG Multivitamins 1 tab DAILY PO 05/25/25 10:00 05/26/25 07:43 1 TAB Cyanocobalamin 1,000 mcg DAILY PO 05/25/25 10:00 05/26/25 07:44 1,000 MCG Pyridoxine HCl 50 mg DAILY PO 05/25/25 10:00 05/26/25 07:44 50 MG Ondansetron HCl 4 mg Q4HPRN PRN IV 05/25/25 18:00 Examination Patient lying in bed, under sedoanalgesia due to mechanical ventilation General: RASS -3, afebrile, mucosae are moist. Presents hemodialysis catheter in right internal jugular area Cardiovascular: Normal S1 and S2. No murmurs, gallops or rubs Respiratory: Mechanically assisted ventilation, equal bilateral airway entree. Clear lung sounds on auscultation Abdomen: Soft, nontender, no organomegaly, reduced bowel sounds MSK/skin: Mobilization of limbs cannot be evaluated. Skin is dry and warm. Left lower limb [id number] amputation, no active bleeding from site, drainage is empty Neurological: Orientation cannot be assessed. No apparent motor no sensitive deficits. Pupils are isocoric and reactive laboratory and microbiology Laboratory Tests 05/26/25 03:00 Test 05/26/25 03:00 Range/Units Serum Glucose 136 H 74-106 mg/dL Microbiology Date/Time Source Procedure Growth Status 05/23/25 14:15 Sputum Gram Stain - Final Resulted 05/23/25 14:15 Respiratory Culture - Preliminary Pseudomonas aeruginosa Resulted 05/20/25 18:09 Nose MRSA Screen - Final Complete 05/20/25 01:02 Urine - Leung Port Urine Culture - Final Yeast, not Dulce albicans Complete 05/19/25 08:14 Blood Blood Culture - Final NO GROWTH AFTER 5 DAYS OF INCUBATION. Complete Problem List/Assessment/Plan Problem List/Assessment/Plan # Metabolic encephalopathy secondary to septic shock due to osteomyelitis of left foot (status post [id number] amputation) # Sedation Completed endotracheal intubation on 05/23/2025. Currently on sedoanalgesia # Acute respiratory failure secondary to cardiorenal syndrome # Cardiorenal syndrome probable type 3 # Acute on chronic diastolic congestive heart failure # Aspiration pneumonia to Pseudomonas Currently on mechanical assisted ventilation (VCV, VT 400 RR 16 PEEP 5 and FiO2 30%) Refractory to Bumex drip. On hemodialysis session, 1st session on 05/24/2025 # Septic shock secondary to aspiration pneumonia to Pseudomonas versus osteomyelitis of left foot - s/p I&D and BKA # Left Toe Dry Gangrene due to Severe PAD # Severe Peripheral Arterial Disease (PAD) # History of right and left Toe Osteomyelitis Podiatry on board: Completed I and D on 05/17/2025 which showed extensive osteomyelitis of left foot, indicate BKA which was completed on 05/19/2025 Left SFA stenting completed on 05/06/2025; right lower extremity angiogram was canceled due to patient's elevated creatinine most probably due to contrast,status post left-sided stent placement. Right SFA stenosis to be rescheduled Under empiric IV antibiotic (meropenem and vancomycin, previously on linezolid and ceftriaxone). Planning on changing to vancomycin due to thrombocytopenia, once hemodialysis started Lactic acid up trending. Currently on intermittent IV vasopressor (norepinephrine) during hemodialysis session Pulmonology on board: We will eventually complete bronchoscopy once platelets improve # Questionable cholecystitis Abdominal ultrasound shows gallstones and gallbladder wall thickening, if concern for acute cholecystitis consider HIDA scan. Auto HIDA scan, pending Gastric residual volumes are increased, continue with trickle feedings at this point. # Severe anemia probably secondary to sepsis - s/p PRBCs transfusions # Severe anemia in patient on anticoagulation # Normocytic hypochromic anemia due to chronic disease (CKD/sepsis) # Hematoma in the right upper arm # Left Lower Extremity DVT (Popliteal Vein) No signs symptoms of active bleeding FOBT negative Doppler of the right upper extremity: No DVT, Anechoic structure with internal lace-like reticulations in the inner upper arm which could reflect a hematoma Continued anticoagulation according to Cardiology recommendations, as the patient is high risk status post left lower extremity stent placement. IVC filter placement is under consideration. Patient is on Plavix and enoxaparin, discontinued aspirin per Cardiology recommendations. Discontinued heparin due to thrombocytopenia Ordered 1 unit of platelets # AD hemodynamically mediated (VMN) on CKD # Chronic Kidney Disease Stage III # Anion gap metabolic acidosis due to sepsis Monitor renal function and electrolytes. Avoid nephrotoxic agents. Adjust medications as needed for renal dosing. Nephrology was consulted: Optimize medical therapy (indicated bicarbonate pills), discontinued IV fluids and indicated IV diuretics (bumex drip), IV vasopressors and on bicarbonate drip. Patient refractory to medical treatment, planning on initiating hemodialysis. # NSTEMI Type 2 (Demand Ischemia) # History of Severe Triple-Vessel CAD (Declined CABG) # Acute on chronic diastolic congestive heart failure (HFpEF, LVEF 50-55%) # Hypertensive Heart Disease with Diastolic Dysfunction and LVH Continue medical management. Continue medical management. Patient on enoxaparin and Plavix, discontinue aspirin Currently on IV diuretics (40 mg furosemide daily) Cardiac diet. # Hyperkalemia Treated with Lokelma, albuterol, bicarbonate, and calcium. Monitor potassium levels. # Transaminitis # Ruled out Ileus Monitor liver enzymes. Review medications for hepatotoxicity. Hold atorvastatin Completed KUB which showed normal gas pattern. Gastric residual volume was 700. We will indicate trickle feedings at this time with Zofran. # Type 2 Diabetes Mellitus with Peripheral Neuropathy - Controlled (hemoglobin A1c 6.7%) # Hyperlipidemia Diet controlled. Hold atirvastatin due to transaminitis Monitor lipid panel. # History of Testicular Cancer # Gait instability - partially bed-bound Patient benefitted with physical therapy once extubated Nutrition: Glucerna Prophylaxis for PUD and DVT: Pantoprazole and SCDs Lines 05/21/2025 PICC line 05/23/2025 ET tube 05/23/2025 NG tube 05/23/2025 HD catheter Drips Norepineprhine 2 (increases to 8 in HD sessions) Bumex drip Fentanyl Midazolam Goals of care discussions, full code status. More than 19 minute spent with patient. Case discussed with Dr. York, patient, family (son) and nurses: Currently in ICU status, on mechanical assisted ventilation, requiring intermittent IV vasopressors during hemodialysis session, on empiric IV antibiotic. We will complete bronchoscopy once platelets improve, continuously presents sputum with Pseudomonas. Patient has questionable cholecystitis, pending completion of HIDA scan. Patient has poor prognosis. Critical care time spent including discussion with nursing and family, excluding procedures: 78 minutes Plan discussed with: Son, Other (Nurses) My Orders My Orders Orders - DANA MERCADO RESIDENT Procedure Category Date Status Time Kub Abdomen Single XY 05/25/25 Resulted View 13:37 Ondansetron Hcl PHA 05/25/25 In Process (Zofran) 18:00 Ventilator Orders RT 05/25/25 Transmitted 15:19 Vancomycin 500mg/100ml PHA 05/26/25 Logged 14:00 Vancomycin,Random LAB 05/27/25 Verified 04:00 Creatinine LAB 05/27/25 Verified 04:00 Dietary Evaluation Review Comments: 1) Advance to [facility] 75gm + cardiac diet 2) Armen 1 pk BID, MVI w/ minerals 1 tab daily, VitC 500mg BID, Zinc sulfate 220mg BID x 10 days 3) Monitor NPO status, lab values, weight trend, and I/O Expected Outcomes/Goals: To meet >75% estimated needs Wound to improve Fu 2-3 days Date of Service: May 26, 2025 Billing Provider: LAUREN YORK MD Common Visit Codes: [id number] CARE 30-74 MIN (crit care time 45 mins) DANA MERCADO RESIDENT May 26, 2025 09:21 LAUREN YORK MD Jun 01, 2025 15:31
--- NOTE | 2025-05-26 10:26 | MEDREC ---
[facility] ASP Intervention Section I [facility] ASP Intervention: Deescalate AB based on CS (Sputum culture showing pseudomonas aeruginosa. Please consider de-escalating based on susceptibilites if/when clinically appropriate.) ABIMAEL GUZMAN [facility] RESIDENT May 26, 2025 10:26
[2025-05-26] MEDS: VANCOMYCIN 500mg/100mL 100 ML IV ONE (13:10)
--- NOTE | 2025-05-26 13:18 | DVHPN2 ---
Progress Note - Dictate Date Seen: May 26, 2025 Medical Necessity Reason Pt with a Central, PICC or Fol: Yes The following are medically ne: Central Line, Leung Catheter vital signs Vital Sign Date Time Temp Pulse Resp B/P (MAP) Pulse Ox O2 Delivery O2 Flow Rate FiO2 05/26/25 12:45 96.8 63 15 109/47 (67) 100 206.2 05/26/25 12:18 30 05/26/25 11:53 Mechanical Ventilator+ Total Intake and Output 05/25/25 05/25/25 05/26/25 15:00 23:00 07:00 Intake Total 395.000 ml 361.000 ml 109.375 ml Output Total 40 ml 150 ml Balance 395.000 ml 321.000 ml -40.625 ml medications Current Medications Medications Dose Ordered Sig/Bandar Route Start Time Stop Time Status Last Admin Dose Admin Acetaminophen 650 mg Q6HP PRN PO 05/04/25 15:00 Clopidogrel Bisulfate 75 mg DAILY PO 05/07/25 10:00 05/26/25 07:44 75 MG Atorvastatin Calcium 40 mg HS PO 05/17/25 22:00 Hold 05/20/25 22:20 40 MG Sodium Chloride 10 ml QSHIFT@10,22 IV 05/19/25 22:00 05/26/25 07:44 10 ML Norepinephrine Bitartrate 32 mg/ Sodium Chloride 250 ml @ 0.938 mls/ hr Q24H IV 05/21/25 01:00 05/24/25 06:45 0.938 MLS/HR Pantoprazole Sodium 40 mg DAILY IV 05/21/25 10:00 05/26/25 07:44 40 MG Artificial Tears 1 drop Q6HP PRN EACHEYE 05/21/25 05:00 Diagnostic Test (Pha) 1 strip Q6HR 05/23/25 00:00 05/26/25 11:39 1 STRIP Insulin Human Regular FOLLOW SLIDING SCALE Q6HR SC 05/23/25 00:00 05/23/25 11:24 4 UNITS Dextrose 50 ml UD IV 05/22/25 22:00 05/24/25 11:36 50 ML Fentanyl Citrate 250 ml @ 2.5 mls/hr Q24H IV 05/23/25 14:00 05/25/25 22:51 15 MLS/HR Midazolam HCl 50 ml @ 1 mls/hr Q24H IV 05/23/25 16:15 05/25/25 22:52 2 MLS/HR Vancomycin HCl 0 ml @ 0 mls/hr UD IV 05/23/25 19:30 Albumin Human 100 ml @ 100 mls/hr PRN PRN IV 05/24/25 06:45 05/24/25 08:02 100 MLS/HR Aspirin 81 mg DAILY PO 05/24/25 10:00 Hold 05/24/25 15:47 81 MG Enteral Nutritional Formula 1,000 ml 50ML/HR GT 05/24/25 17:30 Folic Acid 1 mg DAILY PO 05/25/25 10:00 05/26/25 07:43 1 MG Multivitamins 1 tab DAILY PO 05/25/25 10:00 05/26/25 07:43 1 TAB Cyanocobalamin 1,000 mcg DAILY PO 05/25/25 10:00 05/26/25 07:44 1,000 MCG Pyridoxine HCl 50 mg DAILY PO 05/25/25 10:00 05/26/25 07:44 50 MG Ondansetron HCl 4 mg Q4HPRN PRN IV 05/25/25 18:00 Ciprofloxacin 200 ml @ 200 mls/hr Q12HR IV 05/26/25 22:00 laboratory and microbiology Laboratory Tests 05/26/25 03:00 Test 05/26/25 03:00 Range/Units Serum Glucose 136 H 74-106 mg/dL Assessment/Plan Impression Acute hypoxemic respiratory failure Atelectasis Fluid overload Pleural effusions Patient seen and examined in the ICU Events on mechanical ventilation S/p re-intubation PEEP 5, FiO2 40% Undergoing HD abg reviewed Labs and imaging reviewed Chest x-ray significantly worse, reaccumulation of fluid likely Patient thrombocytopenic, platelets trending up Management plan Vent support Titrate to maintain sats 90% or above Sedation for vent synchrony Continue antibiotics F/u cultures Bronchodilators Monitor renal function Monitor electrolytes Supplement as needed Pressors as needed for hemodynamic support To maintain a mean arterial pressure of 65 mmHg Will consider bronchoscopy Critical care time 35 minutes Dietary Evaluation Review Comments: 1) Advance to CCHO 75gm + cardiac diet 2) Armen 1 pk BID, MVI w/ minerals 1 tab daily, VitC 500mg BID, Zinc sulfate 220mg BID x 10 days 3) Monitor NPO status, lab values, weight trend, and I/O Expected Outcomes/Goals: To meet >75% estimated needs Wound to improve Fu 2-3 days Plan discussed with: Other (Rn) DELROY REDD MD May 26, 2025 13:18
--- NOTE | 2025-05-26 14:34 | DVHPN2 ---
Progress Note Date Seen: May 26, 2025 Medical Necessity Reason Pt with a Central, PICC or Fol: Yes The following are medically ne: Central Line, Leung Catheter Subjective Review of Systems: RESPIRATORY:Abnormal Other Systems: PATIENT SEEN AND EXAMINED BY MYSELF TODAY IN FOLLOW-UP, PATIENT REMAINED INTUBATED ON VENTILATOR PATIENT EXAMINED HEMODIALYSIS, BLOOD PRESSURE STABLE Objective vital signs Vital Sign Date Time Temp Pulse Resp B/P (MAP) Pulse Ox O2 Delivery O2 Flow Rate FiO2 05/26/25 14:15 96.4 61 16 127/50 (75) 100 205.5 05/26/25 14:14 30 05/26/25 13:32 Mechanical Ventilator+ Total Intake and Output 05/25/25 05/25/25 05/26/25 15:00 23:00 07:00 Intake Total 395.000 ml 361.000 ml 109.375 ml Output Total 40 ml 150 ml Balance 395.000 ml 321.000 ml -40.625 ml medications Current Medications Medications Dose Ordered Sig/Bandar Route Start Time Stop Time Status Last Admin Dose Admin Acetaminophen 650 mg Q6HP PRN PO 05/04/25 15:00 Clopidogrel Bisulfate 75 mg DAILY PO 05/07/25 10:00 05/26/25 07:44 75 MG Atorvastatin Calcium 40 mg HS PO 05/17/25 22:00 Hold 05/20/25 22:20 40 MG Sodium Chloride 10 ml QSHIFT@10,22 IV 05/19/25 22:00 05/26/25 07:44 10 ML Norepinephrine Bitartrate 32 mg/ Sodium Chloride 250 ml @ 0.938 mls/ hr Q24H IV 05/21/25 01:00 05/24/25 06:45 0.938 MLS/HR Pantoprazole Sodium 40 mg DAILY IV 05/21/25 10:00 05/26/25 07:44 40 MG Artificial Tears 1 drop Q6HP PRN EACHEYE 05/21/25 05:00 Diagnostic Test (Pha) 1 strip Q6HR 05/23/25 00:00 05/26/25 11:39 1 STRIP Insulin Human Regular FOLLOW SLIDING SCALE Q6HR SC 05/23/25 00:00 05/23/25 11:24 4 UNITS Dextrose 50 ml UD IV 05/22/25 22:00 05/24/25 11:36 50 ML Fentanyl Citrate 250 ml @ 2.5 mls/hr Q24H IV 05/23/25 14:00 05/25/25 22:51 15 MLS/HR Midazolam HCl 50 ml @ 1 mls/hr Q24H IV 05/23/25 16:15 05/25/25 22:52 2 MLS/HR Vancomycin HCl 0 ml @ 0 mls/hr UD IV 05/23/25 19:30 Albumin Human 100 ml @ 100 mls/hr PRN PRN IV 05/24/25 06:45 05/24/25 08:02 100 MLS/HR Aspirin 81 mg DAILY PO 05/24/25 10:00 Hold 05/24/25 15:47 81 MG Enteral Nutritional Formula 1,000 ml 50ML/HR GT 05/24/25 17:30 Folic Acid 1 mg DAILY PO 05/25/25 10:00 05/26/25 07:43 1 MG Multivitamins 1 tab DAILY PO 05/25/25 10:00 05/26/25 07:43 1 TAB Cyanocobalamin 1,000 mcg DAILY PO 05/25/25 10:00 05/26/25 07:44 1,000 MCG Pyridoxine HCl 50 mg DAILY PO 05/25/25 10:00 05/26/25 07:44 50 MG Ondansetron HCl 4 mg Q4HPRN PRN IV 05/25/25 18:00 Ciprofloxacin 200 ml @ 200 mls/hr Q12HR IV 05/26/25 22:00 Examination: LUNGS:Normal, CVS:Normal, MSK:Abnormal laboratory and microbiology Laboratory Tests 05/26/25 03:00 Test 05/26/25 03:00 Range/Units Serum Glucose 136 H 74-106 mg/dL Microbiology Date/Time Source Procedure Growth Status 05/23/25 14:15 Sputum Gram Stain - Final Complete 05/23/25 14:15 Respiratory Culture - Final Pseudomonas aeruginosa Stenotrophomonas maltophilia Complete 05/20/25 18:09 Nose MRSA Screen - Final Complete 05/20/25 01:02 Urine - Leung Port Urine Culture - Final Yeast, not Dulce albicans Complete 05/19/25 08:14 Blood Blood Culture - Final NO GROWTH AFTER 5 DAYS OF INCUBATION. Complete Problem List/Assessment/Plan Problem List/Assessment/Plan Acute kidney injury superimposed Chronic Kidney Disease stage IV secondary hemodynamic mediated, FeNa < 1% requiring intermittent hemodialysis Chronic kidney disease stage IV followed by Dr. Ponce Gangrene left foot, status post left below-knee amputation 05/20 Left lower extremity DVT Diabetes mellitus type 2 Chronic diastolic Congestive heart failure NSTEMI Hyponatremia due to excess H2O Dropping hemoglobin Anemia due to blood loss Metabolic acidosis Septic shock History of testicular cancer Cellulitis lower extremity Recommendations Continue with UF 2 L as tolerated Epogen 35560 subQ 3 times weekly Albumin 25% p.r.n. hemodialysis Strict I&Os kidney ultrasound reported bilateral small echogenic kidneys, no obstruction Fluid restrictions IV pressors for blood pressure support Packed red blood cell transfusion p.r.n. We will continue to follow up Plan discussed with: Other (Nurse) My Orders My Orders Orders - QUOC QUINONEZ MD Procedure Category Date Status Time Hemodialysis Orders ORDERS 05/26/25 Transmitted 10:10 Dietary Evaluation Review Comments: 1) Advance to [facility] 75gm + cardiac diet 2) Armen 1 pk BID, MVI w/ minerals 1 tab daily, VitC 500mg BID, Zinc sulfate 220mg BID x 10 days 3) Monitor NPO status, lab values, weight trend, and I/O Expected Outcomes/Goals: To meet >75% estimated needs Wound to improve Fu 2-3 days QUOC QUINONEZ MD May 26, 2025 14:34
[2025-05-26] MEDS: CIPROFLOXACIN 400MG/200ML 200 ML IV SCH (21:14)
[2025-05-27] VITALS (111 sets, daily range): BP systolic 93–146; BP diastolic 45–89; PULSE 63–144; RESP 14–19; TEMP 97.5–99.3; O2SAT 97–100
[2025-05-27 03:05] LABS: Hematocrit 25.3 % (41.0-53.0); Hemoglobin 8.7 g/dL (13.5-17.5); Mean Corpuscular Hemoglobin 32.5 pg (28.0-32.0); Mean Corpuscular Volume 95.3 fL (80.0-100.0); Nucleated Red Blood Cells % 0.0 %
[2025-05-27 03:22] LABS: Anion Gap 12 (5-15); BUN/Creatinine Ratio 11.9 (10.0-20.0); Carbon Dioxide 28 mmol/L (20-31); Magnesium 1.8 mg/dL (1.6-2.6); Potassium 3.7 mmol/L (3.5-5.1); Sodium 137 mmol/L (136-145)
[2025-05-27 03:30] LABS: Chloride 97 mmol/L (98-107)
[2025-05-27 03:31] LABS: Alanine Aminotransferase 102 U/L (7-40); Albumin 2.7 g/dL (3.2-4.8); Alkaline Phosphatase 219 U/L (46-116); Bilirubin, Total 1.6 mg/dL (0.2-1.0); Blood Urea Nitrogen 27 mg/dL (9-23); Calcium 7.9 mg/dL (8.7-10.4); Glucose 154 mg/dL (74-106); Total Protein 4.7 g/dL (5.7-8.2)
[2025-05-27 04:52] LABS: Lactic Acid w/Reflex 2.1 mmol/L (0.4-2.0)
--- NOTE | 2025-05-27 05:48 | DVH ---
CHEST RADIOGRAPH Indication: ET intubation Technique: Single frontal view of the chest was obtained COMPARISON: XY CHEST XRAY 1 VIEW on DOS: 05/26/25, XY CHEST XRAY 1 VIEW on DOS: 05/25/25, XY CHEST XRAY 1 VIEW on DOS: 05/24/25, XY CHEST PORTABLE on DOS: 05/23/25, XY CHEST PORTABLE on DOS: 05/23/25 FINDINGS: Lines and Tubes: Endotracheal tube, enteric catheter and right central venous catheter in satisfactor y position. Left PICC in satisfactory position. Lungs: Pulmonary vascular congestion Pleura: No effusion. No pneumothorax. Cardiomediastinal contours: Unremarkable Bones: Unremarkable IMPRESSION: Lines and tubes in satisfactory position. No significant interval change.
[2025-05-27] MEDS: MAGNESIUM SULFATE 1GM/100ML 100 ML IV ONE (06:04)
[2025-05-27 07:16] LABS: Base Excess 4.5 mmol/L (-2.0-3.0)
--- NOTE | 2025-05-27 07:31 | ECG ---
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
--- NOTE | 2025-05-27 08:20 | ECG ---
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
--- NOTE | 2025-05-27 08:35 | DVHPNRES ---
Progress Note Date Seen: May 27, 2025 Resident Creating Document: DANA MERCADO RESIDENT Medical Necessity Reason Pt with a Central, PICC or Fol: Yes The following are medically ne: Central Line, Leung Catheter Subjective Review of Systems Osmel Joy 74-year-old male who presents to the ER with a history of left leg purple discoloration since last 3 days. He denies any chest pain, shortness of breath, abdominal pain or any other complaints today. The patient was admitted at [facility] in February, during the time the patient underwent debridements of the right foot. The patient is not taking Eliquis due to bruising, his home health hospice nurse advised him to stop Eliquis. Past medical history: Hypertension, diabetes, dyslipidemia, CAD severe triple- vessel disease non revascularized due to patient's refusal of CABG, testicular cancer, CKD on stage III, diabetic peripheral neuropathy, left lower extremity DVT, PAD, diabetic foot s/p toe amputation, bed bound for 3 months, spina bifida. Was on hospice, but revoked for this admission. Past surgical history: Tonsillectomy, debridement of necrotic right toe. Family history: Noncontributory Social history: Lives in [place] with son (CHALO). Denies tobacco, alcohol and other drug abuse Allergies: No known allergy Home medications: Apixaban, linezolid, pantoprazole, atorvastatin, carvedilol, tamsulosin, amlodipine, aspirin, hydrocodone acetaminophen, rifampin PCP: Dr. Avendano Patient seen and examined at bedside. Currently ICU off of sedation since 05/26/2025 on mechanical assisted ventilation, off IV vasopressors, still requires hemodialysis session, on adjusted IV antibiotic. Can not obtain review of systems. Objective vital signs Vital Sign Date Time Temp Pulse Resp B/P (MAP) Pulse Ox O2 Delivery O2 Flow Rate FiO2 05/27/25 07:26 66 16 129/48 (75) 100 30 05/27/25 06:45 98.1 208.6 05/27/25 06:14 Mechanical Ventilator+ Total Intake and Output 05/26/25 05/26/25 05/27/25 15:00 23:00 07:00 Intake Total 0 ml 304 ml 164 ml Output Total 2150 ml 175 ml Balance 0 ml -1846 ml -11 ml medications Current Medications Medications Dose Ordered Sig/Bandar Route Start Time Stop Time Status Last Admin Dose Admin Acetaminophen 650 mg Q6HP PRN PO 05/04/25 15:00 Clopidogrel Bisulfate 75 mg DAILY PO 05/07/25 10:00 05/26/25 07:44 75 MG Atorvastatin Calcium 40 mg HS PO 05/17/25 22:00 Hold 05/20/25 22:20 40 MG Sodium Chloride 10 ml QSHIFT@10,22 IV 05/19/25 22:00 05/26/25 21:14 10 ML Norepinephrine Bitartrate 32 mg/ Sodium Chloride 250 ml @ 0.938 mls/ hr Q24H IV 05/21/25 01:00 05/24/25 06:45 0.938 MLS/HR Pantoprazole Sodium 40 mg DAILY IV 05/21/25 10:00 05/26/25 07:44 40 MG Artificial Tears 1 drop Q6HP PRN EACHEYE 05/21/25 05:00 Diagnostic Test (Pha) 1 strip Q6HR 05/23/25 00:00 05/27/25 06:01 1 STRIP Insulin Human Regular FOLLOW SLIDING SCALE Q6HR SC 05/23/25 00:00 05/27/25 06:01 4 UNITS Dextrose 50 ml UD IV 05/22/25 22:00 05/24/25 11:36 50 ML Fentanyl Citrate 250 ml @ 2.5 mls/hr Q24H IV 05/23/25 14:00 05/25/25 22:51 15 MLS/HR Midazolam HCl 50 ml @ 1 mls/hr Q24H IV 05/23/25 16:15 05/25/25 22:52 2 MLS/HR Vancomycin HCl 0 ml @ 0 mls/hr UD IV 05/23/25 19:30 Albumin Human 100 ml @ 100 mls/hr PRN PRN IV 05/24/25 06:45 05/24/25 08:02 100 MLS/HR Aspirin 81 mg DAILY PO 05/24/25 10:00 Hold 05/24/25 15:47 81 MG Enteral Nutritional Formula 1,000 ml 50ML/HR GT 05/24/25 17:30 Folic Acid 1 mg DAILY PO 05/25/25 10:00 05/26/25 07:43 1 MG Multivitamins 1 tab DAILY PO 05/25/25 10:00 05/26/25 07:43 1 TAB Cyanocobalamin 1,000 mcg DAILY PO 05/25/25 10:00 05/26/25 07:44 1,000 MCG Pyridoxine HCl 50 mg DAILY PO 05/25/25 10:00 05/26/25 07:44 50 MG Ondansetron HCl 4 mg Q4HPRN PRN IV 05/25/25 18:00 Ciprofloxacin 200 ml @ 200 mls/hr Q12HR IV 05/26/25 22:00 05/26/25 21:14 200 MLS/HR Examination Patient lying in bed, off sedoanalgesia, on mechanical ventilation General: RASS -2, afebrile, mucosae are moist. Presents hemodialysis catheter in right internal jugular area Cardiovascular: Normal S1 and S2. No murmurs, gallops or rubs Respiratory: Mechanically assisted ventilation, equal bilateral airway entree. Clear lung sounds on auscultation Abdomen: Soft, nontender, no organomegaly, reduced bowel sounds MSK/skin: Mobilization of limbs cannot be evaluated. Skin is dry and warm. Left lower limb [id number] amputation, no active bleeding from site, drainage is empty Neurological: Orientation cannot be assessed. No apparent motor no sensitive deficits. Pupils are isocoric and reactive laboratory and microbiology Laboratory Tests 05/27/25 02:45 Test 05/27/25 02:45 Range/Units Serum Glucose 154 H 74-106 mg/dL Microbiology Date/Time Source Procedure Growth Status 05/23/25 14:15 Sputum Gram Stain - Final Complete 05/23/25 14:15 Respiratory Culture - Final Pseudomonas aeruginosa Stenotrophomonas maltophilia Complete 05/20/25 18:09 Nose MRSA Screen - Final Complete 05/20/25 01:02 Urine - Leung Port Urine Culture - Final Yeast, not Dulce albicans Complete 05/19/25 08:14 Blood Blood Culture - Final NO GROWTH AFTER 5 DAYS OF INCUBATION. Complete Problem List/Assessment/Plan Problem List/Assessment/Plan # Metabolic encephalopathy secondary to septic shock due to osteomyelitis of left foot (status post [id number]-jccf amputation) # Sedation Completed endotracheal intubation on 05/23/2025. Currently off sedoanalgesia since 05/26/2025 # Acute respiratory failure secondary to cardiorenal syndrome # Cardiorenal syndrome probable type 3 # Acute on chronic diastolic congestive heart failure # Aspiration pneumonia to Pseudomonas Currently on mechanical assisted ventilation (VCV, VT 400 RR 16 PEEP 5 and FiO2 30%) Refractory to Bumex drip. On hemodialysis session, 1st session on 05/24/2025 # Septic shock secondary to aspiration pneumonia to Pseudomonas versus osteomyelitis of left foot - s/p I&D and BKA # Left Toe Dry Gangrene due to Severe PAD # Severe Peripheral Arterial Disease (PAD) # History of right and left Toe Osteomyelitis # Decubitus sacral wound (POA) Podiatry on board: Completed I and D on 05/17/2025 which showed extensive osteomyelitis of left foot, indicate BKA which was completed on 05/19/2025 Left SFA stenting completed on 05/06/2025; right lower extremity angiogram was canceled due to patient's elevated creatinine most probably due to contrast,status post left-sided stent placement. Right SFA stenosis to be rescheduled Under empiric IV antibiotic (ciprofloxacin and vancomycin, previously on meropenem, linezolid and ceftriaxone). Lactic acid up trending. Currently off IV vasopressor Pulmonology on board: We will eventually complete bronchoscopy once platelets improve # Questionable cholecystitis Abdominal ultrasound shows gallstones and gallbladder wall thickening, if concern for acute cholecystitis consider HIDA scan. Ordered HIDA scan, pending Gastric residual volumes are increased, continue with trickle feedings at this point. # Severe anemia probably secondary to sepsis - s/p PRBCs transfusions # Severe anemia in patient on anticoagulation # Normocytic hypochromic anemia due to chronic disease (CKD/sepsis) # Hematoma in the right upper arm # Mucosal bleeding - Improved # Left Lower Extremity DVT (Popliteal Vein) No signs symptoms of active bleeding FOBT negative Doppler of the right upper extremity: No DVT, Anechoic structure with internal lace-like reticulations in the inner upper arm which could reflect a hematoma Continued anticoagulation according to Cardiology recommendations, as the patient is high risk status post left lower extremity stent placement. IVC filter placement is under consideration. Patient is on Plavix and enoxaparin, discontinued aspirin per Cardiology recommendations. Discontinued heparin due to thrombocytopenia Require multiple platelets transfusion (three and total during this admission) # AD hemodynamically mediated (VMN) on CKD # Chronic Kidney Disease Stage III # Anion gap metabolic acidosis due to sepsis Monitor renal function and electrolytes. Avoid nephrotoxic agents. Adjust medications as needed for renal dosing. Nephrology was consulted: Optimize medical therapy (indicated bicarbonate pills), discontinued IV fluids and indicated IV diuretics (bumex drip), IV vasopressors and on bicarbonate drip. Patient refractory to medical treatment, planning on initiating hemodialysis. # NSTEMI Type 2 (Demand Ischemia) # Paroxysmal Atrial Fibrillation (CHADsVASC 4) # History of Severe Triple-Vessel CAD (Declined CABG) # Acute on chronic diastolic congestive heart failure (HFpEF, LVEF 50-55%) # Hypertensive Heart Disease with Diastolic Dysfunction and LVH Continue medical management. Continue medical management. Patient on enoxaparin and Plavix, discontinue aspirin Currently on IV diuretics (40 mg furosemide daily) Cardiac diet. Currently on IV amiodarone maintenance # Hyperkalemia Treated with Lokelma, albuterol, bicarbonate, and calcium. Monitor potassium levels. # Transaminitis # Ruled out Ileus Monitor liver enzymes. Review medications for hepatotoxicity. Hold atorvastatin Completed KUB which showed normal gas pattern. Gastric residual volume was 700. We will indicate trickle feedings at this time with Zofran. # Type 2 Diabetes Mellitus with Peripheral Neuropathy - Controlled (hemoglobin A1c 6.7%) # Hyperlipidemia Diet controlled. Hold atirvastatin due to transaminitis Monitor lipid panel. # History of Testicular Cancer # Gait instability - partially bed-bound # decubitus sacral ulcer stage II (present on admission) Patient benefitted with physical therapy once extubated Wound care on board VS per son, he presented this decubitus sacral also since patient has been bed- bound (hospice). Nutrition: Glucerna Prophylaxis for PUD and DVT: Pantoprazole and SCDs Lines 05/21/2025 PICC line 05/23/2025 ET tube 05/23/2025 NG tube 05/23/2025 HD catheter Drips Norepineprhine off Bumex drip Fentanyl off 05/26/2025 Midazolam off 05/26/2025 Goals of care discussions, full code status. More than 19 minute spent with patient. Case discussed with Dr. York, patient, family (son) and nurses: Currently in ICU status, on mechanical assisted ventilation, off IV vasopressors during hemodialysis session, on adjusted IV antibiotic. We will complete bronchoscopy once platelets improve, continuously presents sputum with Pseudomonas. Patient has questionable cholecystitis, pending completion of HIDA scan. Presented paroxysmal atrial fibrillation, currently on amiodarone maintenance, can not anticoagulate due to reduced platelets. Patient has poor prognosis. Critical care time spent including discussion with nursing and family, excluding procedures: 72 minutes Plan discussed with: Patient, Son, Other (Nurses) My Orders My Orders Orders - DANA MERCADO RESIDENT Procedure Category Date Status Time Ciprofloxacin PHA 05/26/25 In Process 400mg/200ml (Cipro Iv) 22:00 Dietary Evaluation Review Comments: 1) Advance to [facility] 75gm + cardiac diet 2) Armen 1 pk BID, MVI w/ minerals 1 tab daily, VitC 500mg BID, Zinc sulfate 220mg BID x 10 days 3) Monitor NPO status, lab values, weight trend, and I/O Expected Outcomes/Goals: To meet >75% estimated needs Wound to improve Fu 2-3 days Date of Service: May 27, 2025 Billing Provider: LAUREN YORK MD Common Visit Codes: [id number] CARE 30-74 MIN (crit care time 45 minutes) DANA MERCADO May 27, 2025 08:35 LAUREN YORK MD Jun 01, 2025 15:32
[2025-05-27] MEDS: POTASSIUM CHL 20MEQ/100ML 100 ML IV ONE (09:46)
--- NOTE | 2025-05-27 15:58 | DVHNC2 ---
Procedure - bronchoscopy and bronchial washings indication: mucus plugs consent obtained time out per protocl flexible scope passed through the tube tracheo-bronchial tree examined mucosa appeared inflamed easily friable moderate non purulent secretions noted suctioned thoroughly in a specimen container sent for cx no endobronchial lesions,found at the end of procedure scope removed pt tolerated procedure well DELROY REDD MD May 27, 2025 15:58
--- NOTE | 2025-05-27 16:00 | DVHPN2 ---
Progress Note - Dictate Date Seen: May 27, 2025 Medical Necessity Reason Pt with a Central, PICC or Fol: Yes The following are medically ne: Central Line, Leung Catheter vital signs Vital Sign Date Time Temp Pulse Resp B/P (MAP) Pulse Ox O2 Delivery O2 Flow Rate FiO2 05/27/25 15:31 89 16 107/46 (66) 100 30 05/27/25 15:00 97.7 207.9 05/27/25 12:00 Mechanical Ventilator+ Total Intake and Output 05/26/25 05/26/25 05/27/25 15:00 23:00 07:00 Intake Total 0 ml 304 ml 164 ml Output Total 2150 ml 175 ml Balance 0 ml -1846 ml -11 ml medications Current Medications Medications Dose Ordered Sig/Bandar Route Start Time Stop Time Status Last Admin Dose Admin Acetaminophen 650 mg Q6HP PRN PO 05/04/25 15:00 Clopidogrel Bisulfate 75 mg DAILY PO 05/07/25 10:00 05/27/25 10:09 75 MG Atorvastatin Calcium 40 mg HS PO 05/17/25 22:00 Hold 05/20/25 22:20 40 MG Sodium Chloride 10 ml QSHIFT@10,22 IV 05/19/25 22:00 05/27/25 09:48 10 ML Norepinephrine Bitartrate 32 mg/ Sodium Chloride 250 ml @ 0.938 mls/ hr Q24H IV 05/21/25 01:00 05/24/25 06:45 0.938 MLS/HR Pantoprazole Sodium 40 mg DAILY IV 05/21/25 10:00 05/27/25 09:47 40 MG Artificial Tears 1 drop Q6HP PRN EACHEYE 05/21/25 05:00 Diagnostic Test (Pha) 1 strip Q6HR 05/23/25 00:00 05/27/25 12:00 1 STRIP Insulin Human Regular FOLLOW SLIDING SCALE Q6HR SC 05/23/25 00:00 05/27/25 06:01 4 UNITS Dextrose 50 ml UD IV 05/22/25 22:00 05/24/25 11:36 50 ML Fentanyl Citrate 250 ml @ 2.5 mls/hr Q24H IV 05/23/25 14:00 05/25/25 22:51 15 MLS/HR Midazolam HCl 50 ml @ 1 mls/hr Q24H IV 05/23/25 16:15 9/17/25 22:52 2 MLS/HR Vancomycin HCl 0 ml @ 0 mls/hr UD IV 05/23/25 19:30 Albumin Human 100 ml @ 100 mls/hr PRN PRN IV 05/24/25 06:45 05/27/25 13:30 100 MLS/HR Aspirin 81 mg DAILY PO 05/24/25 10:00 Hold 05/24/25 15:47 81 MG Enteral Nutritional Formula 1,000 ml 50ML/HR GT 05/24/25 17:30 Folic Acid 1 mg DAILY PO 05/25/25 10:00 05/27/25 09:48 1 MG Multivitamins 1 tab DAILY PO 05/25/25 10:00 05/27/25 09:48 1 TAB Cyanocobalamin 1,000 mcg DAILY PO 05/25/25 10:00 05/27/25 09:49 1,000 MCG Pyridoxine HCl 50 mg DAILY PO 05/25/25 10:00 05/27/25 09:48 50 MG Ondansetron HCl 4 mg Q4HPRN PRN IV 05/25/25 18:00 Ciprofloxacin 200 ml @ 200 mls/hr Q12HR IV 05/26/25 22:00 05/27/25 09:47 200 MLS/HR laboratory and microbiology Laboratory Tests 05/27/25 02:45 Test 05/27/25 02:45 Range/Units Serum Glucose 154 H 74-106 mg/dL Assessment/Plan Impression Acute hypoxemic respiratory failure Atelectasis Fluid overload Pleural effusions Patient seen and examined in the ICU Events on mechanical ventilation S/p re-intubation PEEP 5, FiO2 40% s/p bronch today see report off sedation still not awake Labs and imaging reviewed CXR fluid overload pl eff bilat Management plan Vent support Titrate to maintain sats 90% or above Sedation for vent synchrony Continue antibiotics F/u cultures Bronchodilators diurese/HD Monitor renal function Monitor electrolytes Supplement as needed Pressors as needed for hemodynamic support To maintain a mean arterial pressure of 65 mmHg Critical care time 35 minutes Dietary Evaluation Review Comments: 1) Advance to [facility] 75gm + cardiac diet 2) Armen 1 pk BID, MVI w/ minerals 1 tab daily, VitC 500mg BID, Zinc sulfate 220mg BID x 10 days 3) Monitor NPO status, lab values, weight trend, and I/O Expected Outcomes/Goals: To meet >75% estimated needs Wound to improve Fu 2-3 days Plan discussed with: Other (rn) DELROY REDD MD May 27, 2025 16:00
[2025-05-27] MEDS: AMIODARONE 360mg/200mL PREMIX 200 ML IV SCH (18:19)
--- NOTE | 2025-05-27 21:01 | DVHPN2 ---
Progress Note Date Seen: May 27, 2025 Medical Necessity Reason Pt with a Central, PICC or Fol: Yes The following are medically ne: Central Line, Leung Catheter Subjective Patient reports: Other (intubated) Review of Systems: Deferred Objective vital signs Vital Sign Date Time Temp Pulse Resp B/P (MAP) Pulse Ox O2 Delivery O2 Flow Rate FiO2 05/27/25 20:05 72 16 107/45 (65) 100 30 05/27/25 20:00 Mechanical Ventilator+ 05/27/25 19:15 98.4 209.1 Total Intake and Output 05/26/25 05/26/25 05/27/25 15:00 23:00 07:00 Intake Total 0 ml 304 ml 164 ml Output Total 2150 ml 175 ml Balance 0 ml -1846 ml -11 ml medications Current Medications Medications Dose Ordered Sig/Bandar Route Start Time Stop Time Status Last Admin Dose Admin Acetaminophen 650 mg Q6HP PRN PO 05/04/25 15:00 Clopidogrel Bisulfate 75 mg DAILY PO 05/07/25 10:00 05/27/25 10:09 75 MG Atorvastatin Calcium 40 mg HS PO 05/17/25 22:00 Hold 05/20/25 22:20 40 MG Sodium Chloride 10 ml QSHIFT@10,22 IV 05/19/25 22:00 05/27/25 09:48 10 ML Norepinephrine Bitartrate 32 mg/ Sodium Chloride 250 ml @ 0.938 mls/ hr Q24H IV 05/21/25 01:00 05/24/25 06:45 0.938 MLS/HR Pantoprazole Sodium 40 mg DAILY IV 05/21/25 10:00 05/27/25 09:47 40 MG Artificial Tears 1 drop Q6HP PRN EACHEYE 05/21/25 05:00 Diagnostic Test (Pha) 1 strip Q6HR 05/23/25 00:00 05/27/25 18:18 1 STRIP Insulin Human Regular FOLLOW SLIDING SCALE Q6HR SC 05/23/25 00:00 05/27/25 18:27 2 UNITS Dextrose 50 ml UD IV 05/22/25 22:00 05/24/25 11:36 50 ML Fentanyl Citrate 250 ml @ 2.5 mls/hr Q24H IV 05/23/25 14:00 05/25/25 22:51 15 MLS/HR Midazolam HCl 50 ml @ 1 mls/hr Q24H IV 05/23/25 16:15 05/25/25 22:52 2 MLS/HR Vancomycin HCl 0 ml @ 0 mls/hr UD IV 05/23/25 19:30 Albumin Human 100 ml @ 100 mls/hr PRN PRN IV 05/24/25 06:45 05/27/25 13:30 100 MLS/HR Aspirin 81 mg DAILY PO 05/24/25 10:00 Hold 05/24/25 15:47 81 MG Enteral Nutritional Formula 1,000 ml 50ML/HR GT 05/24/25 17:30 Folic Acid 1 mg DAILY PO 05/25/25 10:00 05/27/25 09:48 1 MG Multivitamins 1 tab DAILY PO 05/25/25 10:00 05/27/25 09:48 1 TAB Cyanocobalamin 1,000 mcg DAILY PO 05/25/25 10:00 05/27/25 09:49 1,000 MCG Pyridoxine HCl 50 mg DAILY PO 05/25/25 10:00 05/27/25 09:48 50 MG Ondansetron HCl 4 mg Q4HPRN PRN IV 05/25/25 18:00 Ciprofloxacin 200 ml @ 200 mls/hr Q12HR IV 05/26/25 22:00 05/27/25 09:47 200 MLS/HR Amiodarone HCL/ Dextrose 200 ml @ 16.66 mls/ hr Q12H IV 05/27/25 23:00 05/27/25 18:19 16.66 MLS/HR Examination: GENERAL:Abnormal, MSK:Abnormal, SKIN:Abnormal, NEURO:Abnormal laboratory and microbiology Laboratory Tests 05/27/25 02:45 Test 05/27/25 02:45 Range/Units Serum Glucose 154 H 74-106 mg/dL Microbiology Date/Time Source Procedure Growth Status 05/23/25 14:15 Sputum Gram Stain - Final Complete 05/23/25 14:15 Respiratory Culture - Final Pseudomonas aeruginosa Stenotrophomonas maltophilia Complete 05/20/25 18:09 Nose MRSA Screen - Final Complete 05/20/25 01:02 Urine - [place] Urine Culture - Final Yeast, not Dulce albicans Complete 05/19/25 08:14 Blood Blood Culture - Final NO GROWTH AFTER 5 DAYS OF INCUBATION. Complete Problem List/Assessment/Plan Problem List/Assessment/Plan Acute kidney injury superimposed Chronic Kidney Disease stage IV secondary hemodynamic mediated, FeNa < 1% Chronic kidney disease stage IV followed by Dr. Ponce Gangrene left foot, status post left below-knee amputation 05/20 Left lower extremity DVT Ventilator-dependent hypoxic respiratory failure intubated Diabetes mellitus type 2 Chronic diastolic Congestive heart failure NSTEMI Hyponatremia due to excess H2O Dropping hemoglobin Anemia due to blood loss Metabolic acidosis Septic shock History of testicular cancer Cellulitis lower extremity thrombocytopenia Recommendations HD tomorrow low platelets---no heparin with HD Remains oligo anuric Epogen with dialysis Guarded prognosis Plan discussed with: Other My Orders My Orders Orders - SHANTANU BECK MD Procedure Category Date Status Time Hemodialysis Orders ORDERS 05/28/25 Transmitted 04:00 Dietary Evaluation Review Comments: 1) Advance to CCHO 75gm + cardiac diet 2) Armen 1 pk BID, MVI w/ minerals 1 tab daily, VitC 500mg BID, Zinc sulfate 220mg BID x 10 days 3) Monitor NPO status, lab values, weight trend, and I/O Expected Outcomes/Goals: To meet >75% estimated needs Wound to improve Fu 2-3 days SHANTANU BECK MD May 27, 2025 21:01
[2025-05-27] MEDS: Glucerna 1.2 Cal 1Liter BOTTLE GT SCH (22:51)
[2025-05-28] VITALS (103 sets, daily range): BP systolic 81–133; BP diastolic 41–89; PULSE 60–110; RESP 15–26; TEMP 89.8–99.7; O2SAT 94–100
[2025-05-28 04:41] LABS: Hemoglobin 8.1 g/dL (13.5-17.5); Nucleated Red Blood Cells % 0.2 %
[2025-05-28 04:43] LABS: Hematocrit 23.5 % (41.0-53.0); Mean Corpuscular Hemoglobin 32.9 pg (28.0-32.0); Mean Corpuscular Volume 95.9 fL (80.0-100.0)
[2025-05-28 04:52] LABS: Anion Gap 11 (5-15); BUN/Creatinine Ratio 12.2 (10.0-20.0); Carbon Dioxide 29 mmol/L (20-31); Magnesium 2.0 mg/dL (1.6-2.6); Potassium 3.7 mmol/L (3.5-5.1)
[2025-05-28 04:53] LABS: Bilirubin, Total 1.1 mg/dL (0.2-1.0)
[2025-05-28 04:58] LABS: INR 1.41 (0.9-1.15); Partial Thromboplastin Time 52.1 SEC (24.5-34.5); Prothrombin Time 14.4 sec (9.3-11.8)
[2025-05-28 04:59] LABS: Alanine Aminotransferase 70 U/L (7-40); Albumin 3.1 g/dL (3.2-4.8); Alkaline Phosphatase 186 U/L (46-116); Blood Urea Nitrogen 31 mg/dL (9-23); Calcium 8.4 mg/dL (8.7-10.4); Chloride 95 mmol/L (98-107); Glucose 189 mg/dL (74-106); Sodium 135 mmol/L (136-145); Total Protein 5.2 g/dL (5.7-8.2)
--- NOTE | 2025-05-28 06:42 | DVH ---
CHEST RADIOGRAPH Indication: ET intubation Technique: Single frontal view of the chest was obtained COMPARISON: XY CHEST XRAY 1 VIEW on DOS: 05/27/25, XY CHEST XRAY 1 VIEW on DOS: 05/26/25, XY CHEST XRAY 1 VIEW on DOS: 05/25/25, XY CHEST XRAY 1 VIEW on DOS: 05/24/25, XY CHEST PORTABLE on DOS: 05/23/25 FINDINGS: Lines and Tubes: Unchanged. Lungs: Stable appearing bilateral pleural effusions and diffuse increased prominence of the pulmonary vasculature. No evidence of focal consolidation. No pneumothorax. Cardiomediastinal contours: Unremarkable Bones: Unremarkable IMPRESSION: 1. Stable bilateral pleural effusions and diffuse increased prominence of the pulmonary vasculature. 2. Lines and tubes unchanged.
[2025-05-28 06:49] LABS: Base Excess 4.3 mmol/L (-2.0-3.0)
[2025-05-28] MEDS ORDERED: BACTRIM 5MG/KG Q8HR PER RX 10 ML IV SCH ×2 (08:45→09:45)
[2025-05-28 08:47] LABS: Hematocrit 23.4 % (41.0-53.0); Hemoglobin 7.9 g/dL (13.5-17.5)
--- NOTE | 2025-05-28 09:00 | DVHPN2 ---
Subjective Patient encephalopathic Reviewed: Care Plan, H&P, Labs, Medications, Previous Orders Changes from previous H/P or p: No Changes General: Per HPI Objective Vitals Vital Signs Date Time Temp Pulse Resp B/P (MAP) Pulse Ox O2 Delivery O2 Flow Rate FiO2 05/28/25 08:02 73 16 97/55 (69) 99 30 05/28/25 07:00 98.8 209.8 05/28/25 06:00 Mechanical Ventilator+ Intake/Output Intake and Output 05/28/25 07:00 Intake Total 1316.58 ml Output Total 350 ml Balance 966.58 ml Intake Oral 100 ml IV Total 1016.58 ml Tube Feeding 200 ml Output Urine Total 350 ml General Appearance: Other (Encephalopathic) HEENT: Atraumatic, PERRLA Cardiovascular: Normal S1, Normal S2, Other (Atrial fibrillation) Abdomen: Normal bowel sounds, Soft, No tenderness, No hepatospenomegaly Genitourinary: No Apparent Abnormalities (Leung catheter) Musculoskeletal: Other (Unable to assess) Extremities: Normal pulses, Other (Left BKA) Neuro: Other (Unable to assess) Skin: Wounds (See nurse notes and pictures) Psych/Mental Status: Other (Unable to assess) Medications Current Medications Medications Dose Ordered Sig/Bandar Route Start Time Stop Time Status Last Admin Dose Admin Acetaminophen 650 mg Q6HP PRN PO 05/04/25 15:00 Clopidogrel Bisulfate 75 mg DAILY PO 05/07/25 10:00 05/27/25 10:09 75 MG Atorvastatin Calcium 40 mg HS PO 05/17/25 22:00 Hold 05/20/25 22:20 40 MG Sodium Chloride 10 ml QSHIFT@10,22 IV 05/19/25 22:00 05/27/25 21:34 10 ML Norepinephrine Bitartrate 32 mg/ Sodium Chloride 250 ml @ 0.938 mls/ hr Q24H IV 05/21/25 01:00 05/24/25 06:45 0.938 MLS/HR Pantoprazole Sodium 40 mg DAILY IV 05/21/25 10:00 05/27/25 09:47 40 MG Artificial Tears 1 drop Q6HP PRN EACHEYE 05/21/25 05:00 Diagnostic Test (Pha) 1 strip Q6HR 05/23/25 00:00 05/28/25 06:02 1 STRIP Insulin Human Regular FOLLOW SLIDING SCALE Q6HR SC 05/23/25 00:00 05/28/25 06:17 2 UNITS Dextrose 50 ml UD IV 05/22/25 22:00 05/24/25 11:36 50 ML Fentanyl Citrate 250 ml @ 2.5 mls/hr Q24H IV 05/23/25 14:00 05/25/25 22:51 15 MLS/HR Midazolam HCl 50 ml @ 1 mls/hr Q24H IV 05/23/25 16:15 05/25/25 22:52 2 MLS/HR Vancomycin HCl 0 ml @ 0 mls/hr UD IV 05/23/25 19:30 Albumin Human 100 ml @ 100 mls/hr PRN PRN IV 05/24/25 06:45 05/27/25 13:30 100 MLS/HR Aspirin 81 mg DAILY PO 05/24/25 10:00 Hold 05/24/25 15:47 81 MG Enteral Nutritional Formula 1,000 ml 50ML/HR GT 05/24/25 17:30 05/27/25 22:51 1,000 ML Folic Acid 1 mg DAILY PO 05/25/25 10:00 05/27/25 09:48 1 MG Multivitamins 1 tab DAILY PO 05/25/25 10:00 05/27/25 09:48 1 TAB Cyanocobalamin 1,000 mcg DAILY PO 05/25/25 10:00 05/27/25 09:49 1,000 MCG Pyridoxine HCl 50 mg DAILY PO 05/25/25 10:00 05/27/25 09:48 50 MG Ondansetron HCl 4 mg Q4HPRN PRN IV 05/25/25 18:00 Ciprofloxacin 200 ml @ 200 mls/hr Q12HR IV 05/26/25 22:00 05/27/25 21:34 200 MLS/HR Amiodarone HCL/ Dextrose 200 ml @ 16.66 mls/ hr Q12H IV 05/27/25 23:00 05/28/25 06:02 16.66 MLS/HR Laboratory Results Laboratory Tests 05/28/25 04:20 05/28/25 08:06 Chemistry Test 05/28/25 04:20 Albumin 3.1 g/dL (3.2-4.8) L Calcium Level 8.4 mg/dL (8.7-10.4) L Magnesium Level 2.0 mg/dL (1.6-2.6) Phosphorus Level 3.0 mg/dL (2.4-5.1) Total Protein 5.2 g/dL (5.7-8.2) L Coagulation Test 05/28/25 04:20 Prothrombin Time 14.4 sec (9.3-11.8) H Prothrombin Time INR 1.41 (0.9-1.15) H Activated Partial Thromboplast Time 52.1 SEC (24.5-34.5) H LFT Test 05/28/25 04:20 Alanine Aminotransferase (ALT) 70 U/L (7-40) H Alkaline Phosphatase 186 U/L (46-116) H Aspartate Amino Transferase (AST) 43 U/L (13-40) H Total Bilirubin 1.1 mg/dL (0.2-1.0) H Urinalysis Test 05/16/25 15:18 05/20/25 01:02 Urine Hyaline Casts Few /lpf (0 - 2) Urine Mucus Few (None Seen) Urine Yeast (Budding) Many /hpf (None Seen) Urine Osmolality 359 mOsm/kg Urine Creatinine 122.44 mg/dL (30.0-125.0) Urine Protein/Creatinine Ratio 1.06 Urine Sodium 17 mmol/L (40-220) L Urine Total Protein 130.0 mg/dL (1-14) H Urine Color Dark yellow (Yellow) Urine Clarity Ex.turbid (Clear) Urine pH 5.5 (5.0-9.0) Urine Specific Superior 1.013 (1.001-1.035) Urine Protein 1+ (Negative) H Urine Ketones Negative (Negative) Urine Blood 1+ /uL (Negative) H Urine Nitrite Negative (Negative) Urine Bilirubin Negative (Negative) Urine Urobilinogen Normal mg/dL (Negative) Urine Leukocyte Esterase 3+ /uL (Negative) Urine RBC 62 /hpf (0 - 3) Urine WBC Clumps Present /hpf (None Seen) Urine Microscopic WBC 2744 /HPF (0-3) H Urine Squamous Epithelial Cells None seen /hpf (<5) Urine Bacteria None seen /hpf (None Seen) Urine Glucose Normal mg/dL (Normal) Blood Gas Results Test 05/28/25 06:36 Arterial Blood pH 7.482 (7.350-7.450) FiO2 % 30.0 Microbiology Microbiology Date/Time Source Procedure Growth Status 05/27/25 15:55 Sputum Gram Stain Pending Resulted 05/27/25 15:55 Sputum Respiratory Culture - Preliminary Resulted 05/20/25 18:09 Nose MRSA Screen - Final Complete 05/20/25 01:02 Urine - [place] Urine Culture - Final Yeast, not Dulce albicans Complete 05/19/25 08:14 Blood Blood Culture - Final NO GROWTH AFTER 5 DAYS OF INCUBATION. Complete Labs and/or images reviewed: Labs reviewed by me, Image(s) reviewed by me Assessment/Plan Assessment/Plan Impression: -severe sepsis -atrial fibrillation with rapid ventricular rate, now controlled -acute hypoxic respiratory failure -left lower extremity gangrene with severe peripheral arterial disease. Status post left BKA -pancytopenia -acute kidney injury, probable VMN, now with hemodialysis -community-acquired pneumonia with stenotrophomonas maltophilia, Pseudomonas aeruginosa -complicated cystitis with yeast -metabolic encephalopathy -coronary artery disease Plan: -patient off all sedation, continues to be encephalopathic. Status post bronchoscopy. Patient continues to be encephalopathic, off sedation. -antibiotic therapy: Stop vancomycin, continue ciprofloxacin, add Bactrim, micafungin -continue antiplatelet therapy with Plavix, continue to hold aspirin -nephrology consultation for HD -pulmonary consultation for mechanical ventilation management -PUD prophylaxis -continue current ventilator settings -repeat labs, chest x-ray, ABG in a.m. -poor prognosis Critical care time spent with patient discussing and formulating plan of care: 40 minutes. This does not include time spent performing procedures. This medical document was created using an electronic medical record system with [employer] dictation system. Although this document has been carefully reviewed, there may still be some phonetic and typographical errors. These areas are purely typographical due to imperfections of the software programs, and do not reflect any compromise in the patient's medical care. Plan discussed with: Patient, Other (RN) My Orders Orders - LUIS CARDENAS NP Procedure Category Date Status Time Bactrim Iv Septra PHA 05/28/25 Verified Sulfam/Trim 08:45 Complete Blood Count LAB 05/29/25 Verified 05:00 Complete Blood Count LAB 05/30/25 Verified 05:00 Complete Blood Count LAB 05/31/25 Verified 05:00 Comprehensive LAB 05/29/25 Verified Metabolic Panel 04:00 Chest Portable XY 05/29/25 Verified 04:00 Micafungin Sodium PHA 05/28/25 Verified (Mycamine) 10:00 Date of Service: May 28, 2025 Billing Provider: LUIS CARDENAS NP Common Visit Codes: [id number] CARE 30-74 MIN LUIS CARDENAS NP May 28, 2025 09:00
[2025-05-28] MEDS: LACTULOSE 20Gm/30ML SOLN GT SCH (10:35)
[2025-05-28] MEDS: SULFAMETH-TRIMETH 80/16MG-ML 10 ML in D5W 5% 250 ML IV ONE (10:52)
[2025-05-28] MEDS: MICAFUNGIN SODIUM 100 MG in SODIUM CHL 0.9% 100 ML IV SCH (10:52)
--- NOTE | 2025-05-28 16:36 | DVHPN2 ---
Progress Note Date Seen: May 28, 2025 Medical Necessity Reason Pt with a Central, PICC or Fol: Yes The following are medically ne: Central Line, Leung Catheter Subjective Patient reports: Other Review of Systems: Deferred Objective vital signs Vital Sign Date Time Temp Pulse Resp B/P (MAP) Pulse Ox O2 Delivery O2 Flow Rate FiO2 05/28/25 16:24 79 16 118/56 (76) 98 30 05/28/25 16:15 98.2 208.8 05/28/25 14:00 Mechanical Ventilator+ Total Intake and Output 05/27/25 05/27/25 05/28/25 14:59 22:59 06:59 Intake Total 1079.64 ml 220.28 ml Output Total 150 ml 200 ml Balance 929.64 ml 20.28 ml medications Current Medications Medications Dose Ordered Sig/Bandar Route Start Time Stop Time Status Last Admin Dose Admin Acetaminophen 650 mg Q6HP PRN PO 05/04/25 15:00 Clopidogrel Bisulfate 75 mg DAILY PO 05/07/25 10:00 05/27/25 10:09 75 MG Atorvastatin Calcium 40 mg HS PO 05/17/25 22:00 Hold 05/20/25 22:20 40 MG Sodium Chloride 10 ml QSHIFT@10,22 IV 05/19/25 22:00 05/28/25 10:37 10 ML Norepinephrine Bitartrate 32 mg/ Sodium Chloride 250 ml @ 0.938 mls/ hr Q24H IV 05/21/25 01:00 05/24/25 06:45 0.938 MLS/HR Pantoprazole Sodium 40 mg DAILY IV 05/21/25 10:00 05/28/25 10:37 40 MG Artificial Tears 1 drop Q6HP PRN EACHEYE 05/21/25 05:00 Diagnostic Test (Pha) 1 strip Q6HR 05/23/25 00:00 05/28/25 12:00 1 STRIP Insulin Human Regular FOLLOW SLIDING SCALE Q6HR SC 05/23/25 00:00 05/28/25 12:48 4 UNITS Dextrose 50 ml UD IV 05/22/25 22:00 05/24/25 11:36 50 ML Fentanyl Citrate 250 ml @ 2.5 mls/hr Q24H IV 05/23/25 14:00 05/25/25 22:51 15 MLS/HR Midazolam HCl 50 ml @ 1 mls/hr Q24H IV 05/23/25 16:15 05/25/25 22:52 2 MLS/HR Albumin Human 100 ml @ 100 mls/hr PRN PRN IV 05/24/25 06:45 05/28/25 14:41 100 MLS/HR Aspirin 81 mg DAILY PO 05/24/25 10:00 Hold 05/24/25 15:47 81 MG Enteral Nutritional Formula 1,000 ml 50ML/HR GT 05/24/25 17:30 05/27/25 22:51 1,000 ML Folic Acid 1 mg DAILY PO 05/25/25 10:00 05/28/25 10:35 1 MG Multivitamins 1 tab DAILY PO 05/25/25 10:00 05/28/25 10:00 1 TAB Cyanocobalamin 1,000 mcg DAILY PO 05/25/25 10:00 05/28/25 10:53 1,000 MCG Pyridoxine HCl 50 mg DAILY PO 05/25/25 10:00 05/28/25 10:36 50 MG Ondansetron HCl 4 mg Q4HPRN PRN IV 05/25/25 18:00 Ciprofloxacin 200 ml @ 200 mls/hr Q12HR IV 05/26/25 22:00 05/28/25 10:34 200 MLS/HR Amiodarone HCL/ Dextrose 200 ml @ 16.66 mls/ hr Q12H IV 05/27/25 23:00 05/28/25 06:02 16.66 MLS/HR Micafungin Sodium 100 mg/Sodium Chloride 100 ml @ 100 mls/hr DAILY IV 05/28/25 10:00 05/28/25 10:52 100 MLS/HR Lactulose 30 ml BID GT 05/28/25 10:00 05/28/25 10:35 30 ML Trimethoprim/ Sulfamethoxazole 0 ml @ 0 mls/hr PER PHARMACY IV 05/28/25 09:45 Trimethoprim/ Sulfamethoxazole 10 ml/Dextrose 260 ml @ 173.333 mls/hr Q12HR IV 05/28/25 22:00 Examination: GENERAL:Abnormal, LUNGS:Abnormal, MSK:Abnormal, SKIN:Abnormal, NEURO:Abnormal laboratory and microbiology Laboratory Tests 05/28/25 08:06 05/28/25 04:20 Test 05/28/25 04:20 Range/Units Serum Glucose 189 H 74-106 mg/dL Microbiology Date/Time Source Procedure Growth Status 05/27/25 15:55 Sputum Gram Stain - Final Resulted 05/27/25 15:55 Sputum Respiratory Culture - Preliminary Resulted 05/20/25 18:09 Nose MRSA Screen - Final Complete 05/20/25 01:02 Urine - [place] Urine Culture - Final Yeast, not Dulce albicans Complete 05/19/25 08:14 Blood Blood Culture - Final NO GROWTH AFTER 5 DAYS OF INCUBATION. Complete Problem List/Assessment/Plan Problem List/Assessment/Plan Acute kidney injury superimposed Chronic Kidney Disease stage IV secondary hemodynamic mediated, FeNa < 1% Chronic kidney disease stage IV followed by Dr. Ponce Gangrene left foot, status post left below-knee amputation 05/20 Left lower extremity DVT Ventilator-dependent hypoxic respiratory failure intubated Diabetes mellitus type 2 Chronic diastolic Congestive heart failure NSTEMI Hyponatremia due to excess H2O Dropping hemoglobin Anemia due to blood loss Metabolic acidosis Septic shock History of testicular cancer Cellulitis lower extremity thrombocytopenia Recommendations HD today low platelets---no heparin with HD Remains oligo anuric Epogen with dialysis Guarded prognosis Plan discussed with: Other My Orders My Orders Orders - SHANTANU BECK MD Procedure Category Date Status Time Hemodialysis Orders ORDERS 05/28/25 Transmitted 04:00 Dietary Evaluation Review Comments: 1) Advance to CCHO 75gm + cardiac diet 2) Armen 1 pk BID, MVI w/ minerals 1 tab daily, VitC 500mg BID, Zinc sulfate 220mg BID x 10 days 3) Monitor NPO status, lab values, weight trend, and I/O Expected Outcomes/Goals: To meet >75% estimated needs Wound to improve Fu 2-3 days SHANTANU BECK MD May 28, 2025 16:36
--- NOTE | 2025-05-28 21:20 | DVHPN2 ---
Subjective DOS: 05/28/2025 Patient seen and examined at bedside. Sedated, intubated on mechanical ventilator. Overnight events reviewed. Reviewed: Care Plan, H&P, Labs, Medications, Previous Orders Changes from previous H/P or p: No Changes General: Per HPI Objective Vitals Vital Signs Date Time Temp Pulse Resp B/P (MAP) Pulse Ox O2 Delivery O2 Flow Rate FiO2 05/28/25 20:08 73 24 112/89 (97) 99 30 05/28/25 18:45 98.6 209.5 05/28/25 18:00 Mechanical Ventilator+ Intake/Output Intake and Output 05/28/25 07:00 Intake Total 1316.58 ml Output Total 350 ml Balance 966.58 ml Intake Oral 100 ml IV Total 1016.58 ml Tube Feeding 200 ml Output Urine Total 350 ml General Appearance: Other (Encephalopathic) HEENT: Atraumatic, PERRLA Lungs: Other (On vent. Transmitted breath sounds bilaterally. Decreased air entry bilaterally. No wheezing. Bibasilar crackles.) Cardiovascular: Normal S1, Normal S2, Other (Atrial fibrillation) Abdomen: Normal bowel sounds, Soft, No tenderness, No hepatospenomegaly Genitourinary: No Apparent Abnormalities (Leung catheter) Musculoskeletal: Other (Unable to assess) Extremities: Normal pulses, Other (Left BKA) Neuro: Other (Unable to assess) Skin: Wounds (See nurse notes and pictures) Psych/Mental Status: Other (Unable to assess) Medications Current Medications Medications Dose Ordered Sig/Bandar Route Start Time Stop Time Status Last Admin Dose Admin Acetaminophen 650 mg Q6HP PRN PO 05/04/25 15:00 Clopidogrel Bisulfate 75 mg DAILY PO 05/07/25 10:00 05/27/25 10:09 75 MG Atorvastatin Calcium 40 mg HS PO 05/17/25 22:00 Hold 05/20/25 22:20 40 MG Sodium Chloride 10 ml QSHIFT@10,22 IV 05/19/25 22:00 05/28/25 10:37 10 ML Norepinephrine Bitartrate 32 mg/ Sodium Chloride 250 ml @ 0.938 mls/ hr Q24H IV 05/21/25 01:00 05/24/25 06:45 0.938 MLS/HR Pantoprazole Sodium 40 mg DAILY IV 05/21/25 10:00 05/28/25 10:37 40 MG Artificial Tears 1 drop Q6HP PRN EACHEYE 05/21/25 05:00 Diagnostic Test (Pha) 1 strip Q6HR 05/23/25 00:00 05/28/25 17:44 1 STRIP Insulin Human Regular FOLLOW SLIDING SCALE Q6HR SC 05/23/25 00:00 05/28/25 17:43 2 UNITS Dextrose 50 ml UD IV 05/22/25 22:00 05/24/25 11:36 50 ML Fentanyl Citrate 250 ml @ 2.5 mls/hr Q24H IV 05/23/25 14:00 05/25/25 22:51 15 MLS/HR Midazolam HCl 50 ml @ 1 mls/hr Q24H IV 05/23/25 16:15 05/25/25 22:52 2 MLS/HR Albumin Human 100 ml @ 100 mls/hr PRN PRN IV 05/24/25 06:45 05/28/25 14:41 100 MLS/HR Aspirin 81 mg DAILY PO 05/24/25 10:00 Hold 05/24/25 15:47 81 MG Enteral Nutritional Formula 1,000 ml 50ML/HR GT 05/24/25 17:30 05/27/25 22:51 1,000 ML Folic Acid 1 mg DAILY PO 05/25/25 10:00 05/28/25 10:35 1 MG Multivitamins 1 tab DAILY PO 05/25/25 10:00 05/28/25 10:00 1 TAB Cyanocobalamin 1,000 mcg DAILY PO 05/25/25 10:00 05/28/25 10:53 1,000 MCG Pyridoxine HCl 50 mg DAILY PO 05/25/25 10:00 05/28/25 10:36 50 MG Ondansetron HCl 4 mg Q4HPRN PRN IV 05/25/25 18:00 Ciprofloxacin 200 ml @ 200 mls/hr Q12HR IV 05/26/25 22:00 05/28/25 10:34 200 MLS/HR Amiodarone HCL/ Dextrose 200 ml @ 16.66 mls/ hr Q12H IV 05/27/25 23:00 05/28/25 17:41 16.66 MLS/HR Micafungin Sodium 100 mg/Sodium Chloride 100 ml @ 100 mls/hr DAILY IV 05/28/25 10:00 05/28/25 10:52 100 MLS/HR Lactulose 30 ml BID GT 05/28/25 10:00 05/28/25 10:35 30 ML Trimethoprim/ Sulfamethoxazole 0 ml @ 0 mls/hr PER PHARMACY IV 05/28/25 09:45 Trimethoprim/ Sulfamethoxazole 10 ml/Dextrose 260 ml @ 173.333 mls/hr Q12HR IV 05/28/25 22:00 Laboratory Results Laboratory Tests 05/28/25 04:20 05/28/25 08:06 Chemistry Test 05/28/25 04:20 Albumin 3.1 g/dL (3.2-4.8) L Calcium Level 8.4 mg/dL (8.7-10.4) L Magnesium Level 2.0 mg/dL (1.6-2.6) Phosphorus Level 3.0 mg/dL (2.4-5.1) Total Protein 5.2 g/dL (5.7-8.2) L Coagulation Test 05/28/25 04:20 Prothrombin Time 14.4 sec (9.3-11.8) H Prothrombin Time INR 1.41 (0.9-1.15) H Activated Partial Thromboplast Time 52.1 SEC (24.5-34.5) H LFT Test 05/28/25 04:20 Alanine Aminotransferase (ALT) 70 U/L (7-40) H Alkaline Phosphatase 186 U/L (46-116) H Aspartate Amino Transferase (AST) 43 U/L (13-40) H Total Bilirubin 1.1 mg/dL (0.2-1.0) H Urinalysis Test 05/16/25 15:18 05/20/25 01:02 Urine Hyaline Casts Few /lpf (0 - 2) Urine Mucus Few (None Seen) Urine Yeast (Budding) Many /hpf (None Seen) Urine Osmolality 359 mOsm/kg Urine Creatinine 122.44 mg/dL (30.0-125.0) Urine Protein/Creatinine Ratio 1.06 Urine Sodium 17 mmol/L (40-220) L Urine Total Protein 130.0 mg/dL (1-14) H Urine Color Dark yellow (Yellow) Urine Clarity Ex.turbid (Clear) Urine pH 5.5 (5.0-9.0) Urine Specific [place] 1.013 (1.001-1.035) Urine Protein 1+ (Negative) H Urine Ketones Negative (Negative) Urine Blood 1+ /uL (Negative) H Urine Nitrite Negative (Negative) Urine Bilirubin Negative (Negative) Urine Urobilinogen Normal mg/dL (Negative) Urine Leukocyte Esterase 3+ /uL (Negative) Urine RBC 62 /hpf (0 - 3) Urine WBC Clumps Present /hpf (None Seen) Urine Microscopic WBC 2744 /HPF (0-3) H Urine Squamous Epithelial Cells None seen /hpf (<5) Urine Bacteria None seen /hpf (None Seen) Urine Glucose Normal mg/dL (Normal) Blood Gas Results Test 05/28/25 06:36 Arterial Blood pH 7.482 (7.350-7.450) FiO2 % 30.0 Microbiology Microbiology Date/Time Source Procedure Growth Status 05/27/25 15:55 Sputum Gram Stain - Final Resulted 05/27/25 15:55 Sputum Respiratory Culture - Preliminary Resulted 05/20/25 18:09 Nose MRSA Screen - Final Complete 05/20/25 01:02 Urine - [place] Urine Culture - Final Yeast, not Dulce albicans Complete 05/19/25 08:14 Blood Blood Culture - Final NO GROWTH AFTER 5 DAYS OF INCUBATION. Complete Assessment/Plan Assessment/Plan Impression: Acute hypoxic respiratory failure On mechanical ventilator Severe sepsis Atrial fibrillation with RVR, rate controlled now Pancytopenia Left lower extremity gangrene with severe peripheral arterial disease Status post left [id number] amputation Acute kidney injury secondary to vasomotor nephropathy On hemodialysis Pneumonia secondary to stenotrophomonas maltophilia, Pseudomonas aeruginosa Complicated cystitis with the use Metabolic encephalopathy Coronary artery disease Thrombocytopenia Plan: s/p intubation on mechanical ventilator CXR image and report reviewed. Stable bilateral pleural effusions. Diffuse pulmonary vascular congestion. Devices in place. No acute focal consolidation. ABG reviewed. Slight Alkalemia Vent: Respiratory rate 16, tidal volume 400, peep of 5, FiO2 of 30%. Titrate FIO2 to keep O2 saturation above 92%. VAP bundle Daily ABG and CXR while intubated. Sedate for ventilatory synchrony On pressors for hemodynamic support. On Levophed Titrate to keep MAP above 65 mmHg/SBP above 90 mmHg. Continue antibiotics and antifungals. F/u cultures. Repeat sputum culture notable for Gram-negative rods. On amiodarone drip. Monitor platelets. Monitor hgb. Monitor renal function due to Acute kidney injury. Monitor electrolytes. Supplement as necessary. Nutritional support. Accucheks, ISS. GI/DVT prophylaxis. Condition: Critical Prognosis: Poor given multiple comorbidities. Rest of plan per hospitalist and other consultants. A total of 35 minutes of critical care time was spent reviewing the patient record, examining the patient, making a diagnostic and therapeutic plan, discussing this plan with the medical personnel, following up on diagnostic studies and following the patient for clinical stability excluding any and all procedures. At least 50% of this time was spent in direct, [id number] contact. Thank you for allowing me to participate in this patient's care. Further recommendations will depend on patient's clinical course. Please do not hesitate to contact me if you have any questions or concerns. This medical document was created using an electronic medical record system with [employer] dictation system. Although this document has been carefully reviewed, there may still be some phonetic and typographical errors. These areas are purely typographical due to imperfections of the software programs, and do not reflect any compromise in the patient's medical care. Plan discussed with: Other (AIME Mcintyre) Date of Service: May 28, 2025 Billing Provider: SHALINI BENITES MD Common Visit Codes: [id number] INP/OBS CARE(HIGH), [id number] CARE 30-74 MIN Procedure Codes: [id number] SHALINI BENITES MD May 28, 2025 21:20
[2025-05-28] MEDS: SULFAMETH-TRIMETH 80/16MG-ML 10 ML in D5W 5% 250 ML IV SCH (22:00)
[2025-05-28] MEDS: ROCURONIUM 10MG/ML 10ML VIAL IV ONE ×2 (22:50→23:50)
--- NOTE | 2025-05-28 23:40 | DVH ---
CHEST RADIOGRAPH Indication: ET Tube Placement Confirmation. Technique: Single frontal view of the chest was obtained COMPARISON: XY CHEST XRAY 1 VIEW on DOS: 05/28/25, XY CHEST XRAY 1 VIEW on DOS: 05/27/25, XY CHEST XRAY 1 VIEW on DOS: 05/26/25, XY CHEST XRAY 1 VIEW on DOS: 05/25/25, XY CHEST XRAY 1 VIEW on DOS: 05/24/25 FINDINGS: ET tube tip terminating 2.6 cm above the livier on the 2nd image. NGT of the mid stomach. Cardiac silhouette is borderline in size. Slight prominence of the pulmonary vasculature Stable small bilateral effusions with mild bibasilar atelectasis / consolidation. IMPRESSION: Lines and tube satisfactory. Stable trace bilateral effusions with mild bibasilar atelectasis
--- NOTE | 2025-05-28 23:53 | DVHNC2 ---
Procedure - Endotracheal Intubation Date: 05/28/2025 Time: 10:57 PM Indication: Acute Respiratory Failure Physician: Shalini Chambers MD Procedure: A time-out was completed verifying correct patient, procedure, site, posi tioning, and special equipment if applicable. The patient was placed in a flat position. PENG 50mg IVP, 20mg IVP etomidate sedation and 100mg succinylcholine was used. The patient was easily ventilated using an ambu bag. An MAC 4 laryngoscope was used and inserted into the oropharynx. Grade 1 view of the vocal cords was achieved. There were thick copious secretions noted blocking t he vocal cords. A 8.0.-kenyan endotracheal tube was inserted. Colorimetric change was visualized on the CO2 meter. Breath sounds were heard in both lung murguia equally. The endotracheal tube was placed at 21 cm, measured at the teeth. A chest x-ray was ordered to assess for pneumothorax and verify endotracheal tube placement. It demonstrated ETT about midway of clavicles. Endotracheal tube was advanced 2 cm (23 cm at the lip) and subsequent CXR demonstrated ETT in place. CPT: 93720 CPT 75121 SHALINI CHAMBERS MD May 28, 2025 23:53
[2025-05-29] VITALS (109 sets, daily range): BP systolic 95–144; BP diastolic 45–105; PULSE 52–94; RESP 13–32; TEMP 85.6–99.1; O2SAT 87–100
[2025-05-29 04:02] LABS: Albumin 4.0 g/dL (3.2-4.8); Anion Gap 14 (5-15); BUN/Creatinine Ratio 11.2 (10.0-20.0); Calcium 8.9 mg/dL (8.7-10.4); Carbon Dioxide 27 mmol/L (20-31); Total Protein 5.8 g/dL (5.7-8.2)
[2025-05-29 04:08] LABS: Alanine Aminotransferase 46 U/L (7-40); Alkaline Phosphatase 197 U/L (46-116); Bilirubin, Total 1.3 mg/dL (0.2-1.0); Blood Urea Nitrogen 24 mg/dL (9-23); Chloride 95 mmol/L (98-107); Glucose 180 mg/dL (74-106); Potassium 4.0 mmol/L (3.5-5.1); Sodium 136 mmol/L (136-145)
[2025-05-29 04:17] LABS: Hematocrit 22.8 % (41.0-53.0); Hemoglobin 7.6 g/dL (13.5-17.5); Mean Corpuscular Hemoglobin 32.2 pg (28.0-32.0); Mean Corpuscular Volume 96.2 fL (80.0-100.0)
[2025-05-29 05:01] LABS: Total Cells Counted 100.0 (100)
[2025-05-29 06:23] LABS: Base Excess 3.5 mmol/L (-2.0-3.0)
--- NOTE | 2025-05-29 06:26 | DVH ---
CHEST RADIOGRAPH Indication: chf Technique: Single frontal view of the chest was obtained Comparison: XY CHEST XRAY 1 VIEW on DOS: 05/28/25, XY CHEST XRAY 1 VIEW on DOS: 05/28/25, XY CHEST XRAY 1 VIEW on DOS: 05/27/25 IMPRESSION: Heart is stable in size. Moderate 2 marked pulmonary vascular congestion. Probable small bilateral p leural effusions. No pneumothorax. Support lines and tubes appear unchanged in position. Overall con gestion has worsened.
--- NOTE | 2025-05-29 08:14 | DVHPN2 ---
Subjective Patient encephalopathic Reviewed: Care Plan, H&P, Labs, Medications, Previous Orders Changes from previous H/P or p: No Changes General: Per HPI Objective Vitals Vital Signs Date Time Temp Pulse Resp B/P (MAP) Pulse Ox O2 Delivery O2 Flow Rate FiO2 05/29/25 07:34 57 17 113/58 (76) 99 30 05/29/25 07:00 98.2 208.8 05/29/25 06:00 Mechanical Ventilator+ Intake/Output Intake and Output 05/29/25 07:00 Intake Total 1663.657 ml Output Total 340 ml Balance 1323.657 ml IV Total 1508.657 ml Tube Feeding 155 ml Output Urine Total 120 ml Other 220 ml General Appearance: moderate distress, Other (Encephalopathic) HEENT: Atraumatic, PERRLA Cardiovascular: Normal S1, Normal S2, Other (Atrial fibrillation) Abdomen: Normal bowel sounds, Soft, No tenderness, No hepatospenomegaly Genitourinary: No Apparent Abnormalities (Leung catheter) Musculoskeletal: Other (Unable to assess) Extremities: Normal pulses, Other (Left BKA) Neuro: Other (Unable to assess) Skin: Wounds (See nurse notes and pictures) Psych/Mental Status: Other (Unable to assess) Medications Current Medications Medications Dose Ordered Sig/Bandar Route Start Time Stop Time Status Last Admin Dose Admin Acetaminophen 650 mg Q6HP PRN PO 05/04/25 15:00 Clopidogrel Bisulfate 75 mg DAILY PO 05/07/25 10:00 05/27/25 10:09 75 MG Atorvastatin Calcium 40 mg HS PO 05/17/25 22:00 Hold 05/20/25 22:20 40 MG Sodium Chloride 10 ml QSHIFT@10,22 IV 05/19/25 22:00 05/28/25 22:13 10 ML Norepinephrine Bitartrate 32 mg/ Sodium Chloride 250 ml @ 0.938 mls/ hr Q24H IV 05/21/25 01:00 05/24/25 06:45 0.938 MLS/HR Pantoprazole Sodium 40 mg DAILY IV 05/21/25 10:00 05/28/25 10:37 40 MG Artificial Tears 1 drop Q6HP PRN EACHEYE 05/21/25 05:00 Diagnostic Test (Pha) 1 strip Q6HR 05/23/25 00:00 05/29/25 05:30 1 STRIP Insulin Human Regular FOLLOW SLIDING SCALE Q6HR SC 05/23/25 00:00 05/29/25 05:32 4 UNITS Dextrose 50 ml UD IV 05/22/25 22:00 05/24/25 11:36 50 ML Fentanyl Citrate 250 ml @ 2.5 mls/hr Q24H IV 05/23/25 14:00 05/25/25 22:51 15 MLS/HR Midazolam HCl 50 ml @ 1 mls/hr Q24H IV 05/23/25 16:15 05/25/25 22:52 2 MLS/HR Albumin Human 100 ml @ 100 mls/hr PRN PRN IV 05/24/25 06:45 05/28/25 14:41 100 MLS/HR Aspirin 81 mg DAILY PO 05/24/25 10:00 Hold 05/24/25 15:47 81 MG Enteral Nutritional Formula 1,000 ml 50ML/HR GT 05/24/25 17:30 05/27/25 22:51 1,000 ML Folic Acid 1 mg DAILY PO 05/25/25 10:00 05/28/25 10:35 1 MG Multivitamins 1 tab DAILY PO 05/25/25 10:00 05/28/25 10:00 1 TAB Cyanocobalamin 1,000 mcg DAILY PO 05/25/25 10:00 05/28/25 10:53 1,000 MCG Pyridoxine HCl 50 mg DAILY PO 05/25/25 10:00 05/28/25 10:36 50 MG Ondansetron HCl 4 mg Q4HPRN PRN IV 05/25/25 18:00 Ciprofloxacin 200 ml @ 200 mls/hr Q12HR IV 05/26/25 22:00 05/28/25 22:13 200 MLS/HR Amiodarone HCL/ Dextrose 200 ml @ 16.66 mls/ hr Q12H IV 05/27/25 23:00 05/29/25 04:40 16.66 MLS/HR Micafungin Sodium 100 mg/Sodium Chloride 100 ml @ 100 mls/hr DAILY IV 05/28/25 10:00 05/28/25 10:52 100 MLS/HR Lactulose 30 ml BID GT 05/28/25 10:00 05/28/25 22:12 30 ML Trimethoprim/ Sulfamethoxazole 0 ml @ 0 mls/hr PER PHARMACY IV 05/28/25 09:45 Trimethoprim/ Sulfamethoxazole 10 ml/Dextrose 260 ml @ 173.333 mls/hr Q12HR IV 05/28/25 22:00 05/29/25 08:00 173.333 MLS/HR Laboratory Results Laboratory Tests 05/29/25 02:30 05/29/25 04:00 Chemistry Test 05/29/25 02:30 Albumin 4.0 g/dL (3.2-4.8) Calcium Level 8.9 mg/dL (8.7-10.4) Total Protein 5.8 g/dL (5.7-8.2) LFT Test 05/29/25 02:30 Alanine Aminotransferase (ALT) 46 U/L (7-40) H Alkaline Phosphatase 197 U/L (46-116) H Aspartate Amino Transferase (AST) 33 U/L (13-40) Total Bilirubin 1.3 mg/dL (0.2-1.0) H Urinalysis Test 05/16/25 15:18 05/20/25 01:02 Urine Hyaline Casts Few /lpf (0 - 2) Urine Mucus Few (None Seen) Urine Yeast (Budding) Many /hpf (None Seen) Urine Osmolality 359 mOsm/kg Urine Creatinine 122.44 mg/dL (30.0-125.0) Urine Protein/Creatinine Ratio 1.06 Urine Sodium 17 mmol/L (40-220) L Urine Total Protein 130.0 mg/dL (1-14) H Urine Color Dark yellow (Yellow) Urine Clarity Ex.turbid (Clear) Urine pH 5.5 (5.0-9.0) Urine Specific [place] 1.013 (1.001-1.035) Urine Protein 1+ (Negative) H Urine Ketones Negative (Negative) Urine Blood 1+ /uL (Negative) H Urine Nitrite Negative (Negative) Urine Bilirubin Negative (Negative) Urine Urobilinogen Normal mg/dL (Negative) Urine Leukocyte Esterase 3+ /uL (Negative) Urine RBC 62 /hpf (0 - 3) Urine WBC Clumps Present /hpf (None Seen) Urine Microscopic WBC 2744 /HPF (0-3) H Urine Squamous Epithelial Cells None seen /hpf (<5) Urine Bacteria None seen /hpf (None Seen) Urine Glucose Normal mg/dL (Normal) Blood Gas Results Test 05/29/25 06:10 Arterial Blood pH 7.465 (7.350-7.450) FiO2 % 30.0 Microbiology Microbiology Date/Time Source Procedure Growth Status 05/27/25 15:55 Sputum Gram Stain - Final Resulted 05/27/25 15:55 Sputum Respiratory Culture - Preliminary Resulted 05/20/25 18:09 Nose MRSA Screen - Final Complete 05/20/25 01:02 Urine - [place] Urine Culture - Final Yeast, not Dulce albicans Complete 05/19/25 08:14 Blood Blood Culture - Final NO GROWTH AFTER 5 DAYS OF INCUBATION. Complete Labs and/or images reviewed: Labs reviewed by me, Image(s) reviewed by me Assessment/Plan Assessment/Plan Impression: -severe sepsis -atrial fibrillation with rapid ventricular rate, now controlled -acute hypoxic respiratory failure -left lower extremity gangrene with severe peripheral arterial disease. Status post left BKA -pancytopenia -acute kidney injury, probable VMN, now with hemodialysis -community-acquired pneumonia with stenotrophomonas maltophilia, Pseudomonas aeruginosa -complicated cystitis with yeast -metabolic encephalopathy -coronary artery disease Plan: Events: Patient now bradycardic. Continues to be encephalopathic, but does track to voice. Status post one 10 pack of platelets infusion. Improvement with thrombocytopenia -stop amiodarone drip, switched to G-tube -patient back on vasopressor therapy, keep map greater than 65 mm of mercury -continue antiplatelet therapy with Plavix, continue to hold aspirin -nephrology consultation for HD -pulmonary consultation for mechanical ventilation management -PUD prophylaxis -continue current antimicrobials -repeat labs, chest x-ray, ABG in a.m. -poor prognosis Critical care time spent with patient discussing and formulating plan of care: 40 minutes. This does not include time spent performing procedures. This medical document was created using an electronic medical record system with [employer] dictation system. Although this document has been carefully reviewed, there may still be some phonetic and typographical errors. These areas are purely typographical due to imperfections of the software programs, and do not reflect any compromise in the patient's medical care. Plan discussed with: Patient, Other (RN) My Orders Orders - LUIS CARDENAS NP Procedure Category Date Status Time Complete Blood Count LAB 05/30/25 Verified 05:00 Complete Blood Count LAB 05/31/25 Verified 05:00 Chest Portable XY 05/29/25 Resulted 04:00 Micafungin Sodium PHA 05/28/25 In Process (Mycamine) 10:00 Lactulose Oral PHA 05/28/25 In Process 10:00 Bactrim 5mg/Kg Q8hr PHA 05/28/25 In Process Per Rx (Bactrim) 09:45 Sulfameth-Trimeth PHA 05/28/25 In Process 80/16mg-Ml (Bactrim) 22:00 Comprehensive LAB 05/30/25 Verified Metabolic Panel 04:00 Date of Service: May 29, 2025 Billing Provider: LUIS CARDENAS NP Common Visit Codes: [id number] CARE 30-74 MIN LUIS CARDENAS NP May 29, 2025 08:14
[2025-05-29] MEDS: AMIODARONE HCL 200 MG TAB GT SCH (10:22)
[2025-05-29] MEDS: SODIUM CHL 0.9% 1000 ML BAG XX ONE (18:11)
--- NOTE | 2025-05-29 18:23 | DVHPN2 ---
Progress Note Date Seen: May 29, 2025 Medical Necessity Reason Pt with a Central, PICC or Fol: Yes The following are medically ne: Central Line, Leung Catheter Subjective Patient reports: Other (Patient is intubated) Review of Systems: Deferred Objective vital signs Vital Sign Date Time Temp Pulse Resp B/P (MAP) Pulse Ox O2 Delivery O2 Flow Rate FiO2 05/29/25 18:05 76 22 109/50 (69) 97 30 05/29/25 17:15 99.0 210.2 05/29/25 16:00 Mechanical Ventilator+ Total Intake and Output 05/28/25 05/28/25 05/29/25 15:00 23:00 07:00 Intake Total 153.691 ml 1316.682 ml 193.284 ml Output Total 100 ml 240 ml Balance 153.691 ml 1216.682 ml -46.716 ml medications Current Medications Medications Dose Ordered Sig/Bandar Route Start Time Stop Time Status Last Admin Dose Admin Acetaminophen 650 mg Q6HP PRN PO 05/04/25 15:00 Clopidogrel Bisulfate 75 mg DAILY PO 05/07/25 10:00 05/29/25 10:24 75 MG Atorvastatin Calcium 40 mg HS PO 05/17/25 22:00 Hold 05/20/25 22:20 40 MG Sodium Chloride 10 ml QSHIFT@10,22 IV 05/19/25 22:00 05/29/25 10:22 10 ML Norepinephrine Bitartrate 32 mg/ Sodium Chloride 250 ml @ 0.938 mls/ hr Q24H IV 05/21/25 01:00 05/24/25 06:45 0.938 MLS/HR Pantoprazole Sodium 40 mg DAILY IV 05/21/25 10:00 05/29/25 10:21 40 MG Artificial Tears 1 drop Q6HP PRN EACHEYE 05/21/25 05:00 Diagnostic Test (Pha) 1 strip Q6HR 05/23/25 00:00 05/29/25 18:08 1 STRIP Insulin Human Regular FOLLOW SLIDING SCALE Q6HR SC 05/23/25 00:00 05/29/25 18:07 8 UNITS Dextrose 50 ml UD IV 05/22/25 22:00 05/24/25 11:36 50 ML Fentanyl Citrate 250 ml @ 2.5 mls/hr Q24H IV 05/23/25 14:00 05/25/25 22:51 15 MLS/HR Albumin Human 100 ml @ 100 mls/hr PRN PRN IV 05/24/25 06:45 05/29/25 18:00 100 MLS/HR Enteral Nutritional Formula 1,000 ml 50ML/HR GT 05/24/25 17:30 05/27/25 22:51 1,000 ML Folic Acid 1 mg DAILY PO 05/25/25 10:00 05/29/25 10:23 1 MG Multivitamins 1 tab DAILY PO 05/25/25 10:00 05/29/25 10:23 1 TAB Cyanocobalamin 1,000 mcg DAILY PO 05/25/25 10:00 05/29/25 10:23 1,000 MCG Pyridoxine HCl 50 mg DAILY PO 05/25/25 10:00 05/29/25 10:23 50 MG Ondansetron HCl 4 mg Q4HPRN PRN IV 05/25/25 18:00 Ciprofloxacin 200 ml @ 200 mls/hr Q12HR IV 05/26/25 22:00 05/29/25 10:21 200 MLS/HR Micafungin Sodium 100 mg/Sodium Chloride 100 ml @ 100 mls/hr DAILY IV 05/28/25 10:00 05/29/25 10:22 100 MLS/HR Lactulose 30 ml BID GT 05/28/25 10:00 05/29/25 10:21 30 ML Trimethoprim/ Sulfamethoxazole 0 ml @ 0 mls/hr PER PHARMACY IV 05/28/25 09:45 Trimethoprim/ Sulfamethoxazole 10 ml/Dextrose 260 ml @ 173.333 mls/hr Q12HR IV 05/28/25 22:00 05/29/25 08:00 173.333 MLS/HR Amiodarone HCl 200 mg Q12HR GT 05/29/25 10:00 05/29/25 10:22 200 MG Examination: GENERAL:Abnormal, LUNGS:Abnormal, MSK:Abnormal, NEURO:Abnormal laboratory and microbiology Laboratory Tests 05/29/25 04:00 05/29/25 02:30 Test 05/29/25 02:30 Range/Units Serum Glucose 180 H 74-106 mg/dL Microbiology Date/Time Source Procedure Growth Status 05/27/25 15:55 Sputum Gram Stain - Final Complete 05/27/25 15:55 Respiratory Culture - Final Stenotrophomonas maltophilia Complete 05/20/25 18:09 Nose MRSA Screen - Final Complete 05/20/25 01:02 Urine - [place] Urine Culture - Final Yeast, not Dulce albicans Complete 05/19/25 08:14 Blood Blood Culture - Final NO GROWTH AFTER 5 DAYS OF INCUBATION. Complete Problem List/Assessment/Plan Problem List/Assessment/Plan Acute kidney injury superimposed Chronic Kidney Disease stage IV secondary hemodynamic mediated, FeNa < 1% Chronic kidney disease stage IV followed by Dr. Ponce Gangrene left foot, status post left below-knee amputation 05/20 Left lower extremity DVT Ventilator-dependent hypoxic respiratory failure intubated Diabetes mellitus type 2 Chronic diastolic Congestive heart failure NSTEMI Hyponatremia due to excess H2O Dropping hemoglobin Anemia due to blood loss Metabolic acidosis Septic shock History of testicular cancer Cellulitis lower extremity thrombocytopenia Recommendations HD today for volume removal low platelets---no heparin with HD Remains oligo anuric no response to diuretics Epogen with dialysis Guarded prognosis Chair time arrangement not being initiated yet pending final disposition Plan discussed with: Other My Orders My Orders Orders - SHANTANU BECK MD Procedure Category Date Status Time Hemodialysis Orders ORDERS 05/29/25 Transmitted 18:20 Dietary Evaluation Review Comments: 1) Advance to CCHO 75gm + cardiac diet 2) Armen 1 pk BID, MVI w/ minerals 1 tab daily, VitC 500mg BID, Zinc sulfate 220mg BID x 10 days 3) Monitor NPO status, lab values, weight trend, and I/O Expected Outcomes/Goals: To meet >75% estimated needs Wound to improve Fu 2-3 days SHANTANU BECK MD May 29, 2025 18:23
[2025-05-30] VITALS (107 sets, daily range): BP systolic 91–143; BP diastolic 42–89; PULSE 63–109; RESP 13–23; TEMP 98.1–99.1; O2SAT 86–100
[2025-05-30 04:49] LABS: Alanine Aminotransferase 35 U/L (7-40); Albumin 3.9 g/dL (3.2-4.8); Anion Gap 13 (5-15); BUN/Creatinine Ratio 7.8 (10.0-20.0); Blood Urea Nitrogen 17 mg/dL (9-23); Calcium 8.8 mg/dL (8.7-10.4); Carbon Dioxide 26 mmol/L (20-31); Potassium 4.3 mmol/L (3.5-5.1); Sodium 137 mmol/L (136-145); Total Protein 5.7 g/dL (5.7-8.2)
[2025-05-30 04:50] LABS: Bilirubin, Total 1.2 mg/dL (0.2-1.0)
[2025-05-30 04:55] LABS: Chloride 98 mmol/L (98-107)
[2025-05-30 04:56] LABS: Alkaline Phosphatase 156 U/L (46-116); Glucose 108 mg/dL (74-106)
--- NOTE | 2025-05-30 05:30 | DVH ---
CHEST RADIOGRAPH Indication: ET intubation Technique: Single frontal view of the chest was obtained COMPARISON: XY CHEST PORTABLE on DOS: 05/29/25, XY CHEST XRAY 1 VIEW on DOS: 05/28/25, XY CHEST XRAY 1 VIEW on DOS: 05/28/25, XY CHEST XRAY 1 VIEW on DOS: 05/27/25, XY CHEST XRAY 1 VIEW on DOS: 05/26/25 FINDINGS: Lines and Tubes: Endotracheal tube, enteric catheter, left PICC in satisfactory position. Lungs: Pulmonary vascular congestion, unchanged. Pleura: No effusion.No pneumothorax. Cardiomediastinal contours: Cardiomegaly, unchanged. Bones: Unremarkable. IMPRESSION: Lines and tubes in satisfactory position. No significant interval change.
--- NOTE | 2025-05-30 08:53 | DVHPN2 ---
Subjective DOS: 05/29/2025 Patient seen and examined at bedside. Sedated, intubated on mechanical ventilator. Overnight events reviewed. Reviewed: Care Plan, H&P, Labs, Medications, Previous Orders Changes from previous H/P or p: No Changes General: Per HPI Objective Vitals Vital Signs Date Time Temp Pulse Resp B/P (MAP) Pulse Ox O2 Delivery O2 Flow Rate FiO2 05/30/25 07:25 76 16 125/53 (77) 97 30 05/30/25 06:45 99.0 210.2 05/30/25 06:00 Mechanical Ventilator+ Intake/Output Intake and Output 05/30/25 07:00 Intake Total 1465.792 ml Output Total 100 ml Balance 1365.792 ml Intake Oral 150 ml IV Total 1119.792 ml Tube Feeding 196 ml Output Urine Total 100 ml # Bowel Movements 1 General Appearance: Other (Encephalopathic) HEENT: Atraumatic, PERRLA Lungs: Other (On vent. Transmitted breath sounds bilaterally. Decreased air entry bilaterally. No wheezing. Bibasilar crackles.) Cardiovascular: Normal S1, Normal S2, Other (Atrial fibrillation) Abdomen: Normal bowel sounds, Soft, No tenderness, No hepatospenomegaly Genitourinary: No Apparent Abnormalities (Leung catheter) Musculoskeletal: Other (Unable to assess) Extremities: Normal pulses, Other (Left BKA) Neuro: Other (Unable to assess) Skin: Wounds (See nurse notes and pictures) Psych/Mental Status: Other (Unable to assess) Medications Current Medications Medications Dose Ordered Sig/Bandar Route Start Time Stop Time Status Last Admin Dose Admin Acetaminophen 650 mg Q6HP PRN PO 05/04/25 15:00 Clopidogrel Bisulfate 75 mg DAILY PO 05/07/25 10:00 05/29/25 10:24 75 MG Atorvastatin Calcium 40 mg HS PO 05/17/25 22:00 Hold 05/20/25 22:20 40 MG Sodium Chloride 10 ml QSHIFT@10,22 IV 05/19/25 22:00 05/29/25 22:11 10 ML Norepinephrine Bitartrate 32 mg/ Sodium Chloride 250 ml @ 0.938 mls/ hr Q24H IV 05/21/25 01:00 05/24/25 06:45 0.938 MLS/HR Pantoprazole Sodium 40 mg DAILY IV 05/21/25 10:00 05/29/25 10:21 40 MG Artificial Tears 1 drop Q6HP PRN EACHEYE 05/21/25 05:00 Diagnostic Test (Pha) 1 strip Q6HR 05/23/25 00:00 05/30/25 05:28 1 STRIP Insulin Human Regular FOLLOW SLIDING SCALE Q6HR SC 05/23/25 00:00 05/29/25 18:07 8 UNITS Dextrose 50 ml UD IV 05/22/25 22:00 05/24/25 11:36 50 ML Fentanyl Citrate 250 ml @ 2.5 mls/hr Q24H IV 05/23/25 14:00 05/25/25 22:51 15 MLS/HR Albumin Human 100 ml @ 100 mls/hr PRN PRN IV 05/24/25 06:45 05/29/25 18:00 100 MLS/HR Enteral Nutritional Formula 1,000 ml 50ML/HR GT 05/24/25 17:30 05/27/25 22:51 1,000 ML Folic Acid 1 mg DAILY PO 05/25/25 10:00 05/29/25 10:23 1 MG Multivitamins 1 tab DAILY PO 05/25/25 10:00 05/29/25 10:23 1 TAB Cyanocobalamin 1,000 mcg DAILY PO 05/25/25 10:00 05/29/25 10:23 1,000 MCG Pyridoxine HCl 50 mg DAILY PO 05/25/25 10:00 05/29/25 10:23 50 MG Ondansetron HCl 4 mg Q4HPRN PRN IV 05/25/25 18:00 Ciprofloxacin 200 ml @ 200 mls/hr Q12HR IV 05/26/25 22:00 05/29/25 22:11 200 MLS/HR Micafungin Sodium 100 mg/Sodium Chloride 100 ml @ 100 mls/hr DAILY IV 05/28/25 10:00 05/29/25 10:22 100 MLS/HR Lactulose 30 ml BID GT 05/28/25 10:00 05/29/25 22:10 30 ML Trimethoprim/ Sulfamethoxazole 0 ml @ 0 mls/hr PER PHARMACY IV 05/28/25 09:45 Trimethoprim/ Sulfamethoxazole 10 ml/Dextrose 260 ml @ 173.333 mls/hr Q12HR IV 05/28/25 22:00 05/29/25 22:12 173.333 MLS/HR Amiodarone HCl 200 mg Q12HR GT 05/29/25 10:00 05/29/25 22:10 200 MG Laboratory Results Laboratory Tests 05/30/25 04:15 Chemistry Test 05/30/25 04:15 Albumin 3.9 g/dL (3.2-4.8) Calcium Level 8.8 mg/dL (8.7-10.4) Total Protein 5.7 g/dL (5.7-8.2) LFT Test 05/30/25 04:15 Alanine Aminotransferase (ALT) 35 U/L (7-40) Alkaline Phosphatase 156 U/L (46-116) H Aspartate Amino Transferase (AST) 34 U/L (13-40) Total Bilirubin 1.2 mg/dL (0.2-1.0) H Urinalysis Test 05/16/25 15:18 05/20/25 01:02 Urine Hyaline Casts Few /lpf (0 - 2) Urine Mucus Few (None Seen) Urine Yeast (Budding) Many /hpf (None Seen) Urine Osmolality 359 mOsm/kg Urine Creatinine 122.44 mg/dL (30.0-125.0) Urine Protein/Creatinine Ratio 1.06 Urine Sodium 17 mmol/L (40-220) L Urine Total Protein 130.0 mg/dL (1-14) H Urine Color Dark yellow (Yellow) Urine Clarity Ex.turbid (Clear) Urine pH 5.5 (5.0-9.0) Urine Specific [place] 1.013 (1.001-1.035) Urine Protein 1+ (Negative) H Urine Ketones Negative (Negative) Urine Blood 1+ /uL (Negative) H Urine Nitrite Negative (Negative) Urine Bilirubin Negative (Negative) Urine Urobilinogen Normal mg/dL (Negative) Urine Leukocyte Esterase 3+ /uL (Negative) Urine RBC 62 /hpf (0 - 3) Urine WBC Clumps Present /hpf (None Seen) Urine Microscopic WBC 2744 /HPF (0-3) H Urine Squamous Epithelial Cells None seen /hpf (<5) Urine Bacteria None seen /hpf (None Seen) Urine Glucose Normal mg/dL (Normal) Microbiology Microbiology Date/Time Source Procedure Growth Status 05/27/25 15:55 Sputum Gram Stain - Final Complete 05/27/25 15:55 Respiratory Culture - Final Stenotrophomonas maltophilia Complete 05/20/25 18:09 Nose MRSA Screen - Final Complete 05/20/25 01:02 Urine - [place] Urine Culture - Final Yeast, not Dulce albicans Complete 05/19/25 08:14 Blood Blood Culture - Final NO GROWTH AFTER 5 DAYS OF INCUBATION. Complete Assessment/Plan Assessment/Plan Impression: Acute hypoxic respiratory failure On mechanical ventilator Severe sepsis Atrial fibrillation with RVR, rate controlled now Pancytopenia Left lower extremity gangrene with severe peripheral arterial disease Status post left [id number]-lmrb amputation Acute kidney injury secondary to vasomotor nephropathy On hemodialysis Pneumonia secondary to Stenotrophomonas maltophilia, Pseudomonas aeruginosa Complicated cystitis with the use Metabolic encephalopathy Coronary artery disease Thrombocytopenia Events: Remains on vent support AC mode: Respiratory rate 16, tidal volume 400, PEEP of 5, FiO2 of 30%. Taper Fio2 as tolerated CXR image and report reviewed. Moderate to marked pulmonary vascular congestion. Probable small bilateral pleural effusions. No pneumothorax. Devices in place. ABG reviewed. Alkalemia Status post tube exchange due to cuff leak Continue antibiotics Diurese with Lasix drip Monitor renal function Monitor electrolytes. Supplement as necessary. Monitor ins and outs Labs and imaging reviewed. Rest of plan as noted below. Plan: s/p intubation on mechanical ventilator Vent: Respiratory rate 16, tidal volume 400, PEEP of 5, FiO2 of 30%. Titrate FIO2 to keep O2 saturation above 92%. VAP bundle Daily ABG and CXR while intubated. Sedate for ventilatory synchrony Pressors as necessary for hemodynamic support. Titrate to keep MAP above 65 mmHg/SBP above 90 mmHg. Continue antibiotics and antifungals. F/u cultures. Repeat sputum culture notable for Gram-negative rods. On amiodarone PO. Monitor platelets. Monitor hgb. Monitor renal function due to Acute kidney injury. Monitor electrolytes. Supplement as necessary. Nutritional support. Accucheks, ISS. GI/DVT prophylaxis. Condition: Critical Prognosis: Poor given multiple comorbidities. Rest of plan per hospitalist and other consultants. A total of 35 minutes of critical care time was spent reviewing the patient record, examining the patient, making a diagnostic and therapeutic plan, discussing this plan with the medical personnel, following up on diagnostic studies and following the patient for clinical stability excluding any and all procedures. At least 50% of this time was spent in direct, [id number] contact. Thank you for allowing me to participate in this patient's care. Further recommendations will depend on patient's clinical course. Please do not hesitate to contact me if you have any questions or concerns. This medical document was created using an electronic medical record system with [employer] dictation system. Although this document has been carefully reviewed, there may still be some phonetic and typographical errors. These areas are purely typographical due to imperfections of the software programs, and do not reflect any compromise in the patient's medical care. Plan discussed with: Other (RN) Date of Service: May 29, 2025 Billing Provider: SHALINI BENITES MD Common Visit Codes: [id number] INP/OBS CARE(HIGH), [id number] CARE 30-74 MIN SHALINI BENITES MD May 30, 2025 08:52
[2025-05-30 09:04] LABS: Hemoglobin 7.6 g/dL (13.5-17.5)
[2025-05-30 09:12] LABS: Hematocrit 22.2 % (41.0-53.0); Mean Corpuscular Hemoglobin 32.7 pg (28.0-32.0); Mean Corpuscular Volume 95.4 fL (80.0-100.0); Nucleated Red Blood Cells % 0.0 %
--- NOTE | 2025-05-30 11:01 | DVHPN2 ---
Progress Note Date Seen: May 30, 2025 Medical Necessity Reason Pt with a Central, PICC or Fol: Yes The following are medically ne: Central Line, Leung Catheter Objective vital signs Vital Sign Date Time Temp Pulse Resp B/P (MAP) Pulse Ox O2 Delivery O2 Flow Rate FiO2 05/30/25 08:57 81 21 115/59 (77) 94 30 05/30/25 06:45 99.0 210.2 05/30/25 06:00 Mechanical Ventilator+ Total Intake and Output 05/29/25 05/29/25 05/30/25 15:00 23:00 07:00 Intake Total 1207.896 ml 257.896 ml Output Total 50 ml 50 ml Balance 1157.896 ml 207.896 ml medications Current Medications Medications Dose Ordered Sig/Bandar Route Start Time Stop Time Status Last Admin Dose Admin Acetaminophen 650 mg Q6HP PRN PO 05/04/25 15:00 Clopidogrel Bisulfate 75 mg DAILY PO 05/07/25 10:00 05/29/25 10:24 75 MG Atorvastatin Calcium 40 mg HS PO 05/17/25 22:00 Hold 05/20/25 22:20 40 MG Sodium Chloride 10 ml QSHIFT@10,22 IV 05/19/25 22:00 05/30/25 09:59 10 ML Norepinephrine Bitartrate 32 mg/ Sodium Chloride 250 ml @ 0.938 mls/ hr Q24H IV 05/21/25 01:00 05/24/25 06:45 0.938 MLS/HR Pantoprazole Sodium 40 mg DAILY IV 05/21/25 10:00 05/30/25 09:59 40 MG Artificial Tears 1 drop Q6HP PRN EACHEYE 05/21/25 05:00 Diagnostic Test (Pha) 1 strip Q6HR 05/23/25 00:00 05/30/25 05:28 1 STRIP Insulin Human Regular FOLLOW SLIDING SCALE Q6HR SC 05/23/25 00:00 05/29/25 18:07 8 UNITS Dextrose 50 ml UD IV 05/22/25 22:00 05/24/25 11:36 50 ML Fentanyl Citrate 250 ml @ 2.5 mls/hr Q24H IV 05/23/25 14:00 05/25/25 22:51 15 MLS/HR Albumin Human 100 ml @ 100 mls/hr PRN PRN IV 05/24/25 06:45 05/29/25 18:00 100 MLS/HR Enteral Nutritional Formula 1,000 ml 50ML/HR GT 05/24/25 17:30 05/27/25 22:51 1,000 ML Folic Acid 1 mg DAILY PO 05/25/25 10:00 05/30/25 09:59 1 MG Multivitamins 1 tab DAILY PO 05/25/25 10:00 05/30/25 10:00 1 TAB Cyanocobalamin 1,000 mcg DAILY PO 05/25/25 10:00 05/30/25 10:00 1,000 MCG Pyridoxine HCl 50 mg DAILY PO 05/25/25 10:00 05/30/25 10:11 50 MG Ondansetron HCl 4 mg Q4HPRN PRN IV 05/25/25 18:00 Ciprofloxacin 200 ml @ 200 mls/hr Q12HR IV 05/26/25 22:00 05/30/25 10:16 200 MLS/HR Micafungin Sodium 100 mg/Sodium Chloride 100 ml @ 100 mls/hr DAILY IV 05/28/25 10:00 05/30/25 09:59 100 MLS/HR Lactulose 30 ml BID GT 05/28/25 10:00 05/30/25 09:57 30 ML Trimethoprim/ Sulfamethoxazole 0 ml @ 0 mls/hr PER PHARMACY IV 05/28/25 09:45 Trimethoprim/ Sulfamethoxazole 10 ml/Dextrose 260 ml @ 173.333 mls/hr Q12HR IV 05/28/25 22:00 05/30/25 09:58 173.333 MLS/HR Amiodarone HCl 200 mg Q12HR GT 05/29/25 10:00 05/30/25 09:58 200 MG Examination: GENERAL:Abnormal, LUNGS:Abnormal, SKIN:Abnormal laboratory and microbiology Laboratory Tests 05/30/25 08:50 05/30/25 04:15 Test 05/30/25 04:15 Range/Units Serum Glucose 108 H 74-106 mg/dL Microbiology Date/Time Source Procedure Growth Status 05/27/25 15:55 Sputum Gram Stain - Final Complete 05/27/25 15:55 Respiratory Culture - Final Stenotrophomonas maltophilia Complete 05/20/25 18:09 Nose MRSA Screen - Final Complete 05/20/25 01:02 Urine - [place] Urine Culture - Final Yeast, not Dulce albicans Complete 05/19/25 08:14 Blood Blood Culture - Final NO GROWTH AFTER 5 DAYS OF INCUBATION. Complete Problem List/Assessment/Plan Problem List/Assessment/Plan Acute kidney injury superimposed Chronic Kidney Disease stage IV secondary hemodynamic mediated, FeNa < 1% Chronic kidney disease stage IV followed by Dr. Ponce Gangrene left foot, status post left below-knee amputation 05/20 Left lower extremity DVT Ventilator-dependent hypoxic respiratory failure intubated Diabetes mellitus type 2 Chronic diastolic Congestive heart failure/ NSTEMI Septic shock History of testicular cancer Cellulitis lower extremity thrombocytopenia/ anemia start lasix drp today due scott severe edema eval for renal response, if inadequate will continue HD tomorrow w/ high UF goals. if responds then will hold HD low platelets---no heparin with HD Remains oligo anuric no response to diuretics Epogen 3x a week Guarded prognosis Chair time arrangement not being initiated yet pending final disposition Plan discussed with: Patient, Other (nurse) Dietary Evaluation Review Comments: 1) Advance to [facility] 75gm + cardiac diet 2) Armen 1 pk BID, MVI w/ minerals 1 tab daily, VitC 500mg BID, Zinc sulfate 220mg BID x 10 days 3) Monitor NPO status, lab values, weight trend, and I/O Expected Outcomes/Goals: To meet >75% estimated needs Wound to improve Fu 2-3 days Critical Care Time (mins): 40 ALEJANDRO PONCE MD May 30, 2025 11:01
[2025-05-30 12:16] LABS: Base Excess 3.3 mmol/L (-2.0-3.0)
[2025-05-30] MEDS: FUROSEMIDE INJECTION 100 MG in SODIUM CHL 0.9% 100 ML IV SCH (13:24)
[2025-05-30] MEDS ORDERED: FUROSEMIDE INJECTION 100 MG in SODIUM CHL 0.9% 100 ML IV SCH (15:00)
--- NOTE | 2025-05-30 15:09 | DVHPNRES ---
Progress Note Date Seen: May 30, 2025 Resident Creating Document: FABRICIO CALVIN RESIDENT Has the PT tested + for MRSA If YES, has PT been informed?: No Medical Necessity Reason Pt with a Central, PICC or Fol: Yes The following are medically ne: Central Line, Leung Catheter Subjective Review of Systems * Patient remains intubated * Good mentation today, follows commands. * Underwent hemodialysis yesterday; none today. Plan for dialysis tomorrow. * Patient is edematous today; Lasix drip started to evaluate diuretic response. * Enteral feeds resumed (withholding flushes). * Vitals stable: BP ~103/51 mmHg, HR 6672 bpm (episodes of tachycardia previously), SpO? 99% on ventilator with FiO? 30%. * No acute distress observed. * General: Edematous, critically ill but awake, follows commands. * Respiratory: Ventilator-dependent, no acute desaturation. * CV: Stable BP on vasopressors previously, now low-normal BP. * GI: Tube feeds tolerated. No abdominal distension. * Renal: On HD, oligoanuric, significant volume overload. * Neuro: Encephalopathy improving, tracks voice. * Skin/MSK: Post-left BKA, generalized edema, wounds dressed. Objective vital signs Vital Sign Date Time Temp Pulse Resp B/P (MAP) Pulse Ox O2 Delivery O2 Flow Rate FiO2 05/30/25 14:45 66 17 103/54 (70) 99 30 05/30/25 13:45 98.4 98.4 05/30/25 12:00 Mechanical Ventilator+ Total Intake and Output 05/29/25 05/29/25 05/30/25 15:00 23:00 07:00 Intake Total 1207.896 ml 258.834 ml Output Total 50 ml 50 ml Balance 1157.896 ml 208.834 ml medications Current Medications Medications Dose Ordered Sig/Bandar Route Start Time Stop Time Status Last Admin Dose Admin Acetaminophen 650 mg Q6HP PRN PO 05/04/25 15:00 Clopidogrel Bisulfate 75 mg DAILY PO 05/07/25 10:00 05/29/25 10:24 75 MG Atorvastatin Calcium 40 mg HS PO 05/17/25 22:00 Hold 05/20/25 22:20 40 MG Sodium Chloride 10 ml QSHIFT@,22 IV 05/19/25 22:00 05/30/25 09:59 10 ML Norepinephrine Bitartrate 32 mg/ Sodium Chloride 250 ml @ 0.938 mls/ hr Q24H IV 05/21/25 01:00 05/24/25 06:45 0.938 MLS/HR Pantoprazole Sodium 40 mg DAILY IV 05/21/25 10:00 05/30/25 09:59 40 MG Artificial Tears 1 drop Q6HP PRN EACHEYE 05/21/25 05:00 Diagnostic Test (Pha) 1 strip Q6HR 05/23/25 00:00 05/30/25 12:20 1 STRIP Insulin Human Regular FOLLOW SLIDING SCALE Q6HR SC 05/23/25 00:00 05/30/25 12:23 4 UNITS Dextrose 50 ml UD IV 05/22/25 22:00 05/24/25 11:36 50 ML Fentanyl Citrate 250 ml @ 2.5 mls/hr Q24H IV 05/23/25 14:00 05/25/25 22:51 15 MLS/HR Albumin Human 100 ml @ 100 mls/hr PRN PRN IV 05/24/25 06:45 05/29/25 18:00 100 MLS/HR Enteral Nutritional Formula 1,000 ml 50ML/HR GT 05/24/25 17:30 05/27/25 22:51 1,000 ML Folic Acid 1 mg DAILY PO 05/25/25 10:00 05/30/25 09:59 1 MG Multivitamins 1 tab DAILY PO 05/25/25 10:00 05/30/25 10:00 1 TAB Cyanocobalamin 1,000 mcg DAILY PO 05/25/25 10:00 05/30/25 10:00 1,000 MCG Pyridoxine HCl 50 mg DAILY PO 05/25/25 10:00 05/30/25 10:11 50 MG Ondansetron HCl 4 mg Q4HPRN PRN IV 05/25/25 18:00 Ciprofloxacin 200 ml @ 200 mls/hr Q12HR IV 05/26/25 22:00 05/30/25 10:16 200 MLS/HR Micafungin Sodium 100 mg/Sodium Chloride 100 ml @ 100 mls/hr DAILY IV 05/28/25 10:00 05/30/25 09:59 100 MLS/HR Lactulose 30 ml BID GT 05/28/25 10:00 05/30/25 09:57 30 ML Trimethoprim/ Sulfamethoxazole 0 ml @ 0 mls/hr PER PHARMACY IV 05/28/25 09:45 Trimethoprim/ Sulfamethoxazole 10 ml/Dextrose 260 ml @ 173.333 mls/hr Q12HR IV 05/28/25 22:00 05/30/25 09:58 173.333 MLS/HR Amiodarone HCl 200 mg Q12HR GT 05/29/25 10:00 05/30/25 09:58 200 MG Furosemide 100 mg/ Sodium Chloride 110 ml @ 22 mls/hr Q5H IV 05/30/25 11:30 05/30/25 13:24 22 MLS/HR Furosemide 100 mg/ Sodium Chloride 110 ml @ 4.4 mls/hr Q24H IV 05/30/25 15:00 UNV Examination * General: Intubated, critically ill, awake and following commands. * Vitals: Temp 98.4F, BP 103/51, HR 6672, RR 16, SpO? 99% on ventilator FiO? 30%. * HEENT: Intubated, oral mucosa moist. * CV: Regular rate and rhythm, no new murmurs. * Lungs: Diminished breath sounds bilaterally, no wheezes/rales appreciated (ventilator dependent). * Abdomen: Soft, nondistended. Tube feeds running. * Extremities: 2+ generalized edema, post-BKA wound clean and dry. * Neuro: Tracks voice, follows simple commands. * Skin: Dressings intact, no new rashes. laboratory and microbiology Laboratory Tests 05/30/25 08:50 05/30/25 04:15 Test 05/30/25 04:15 Range/Units Serum Glucose 108 H 74-106 mg/dL Microbiology Date/Time Source Procedure Growth Status 05/27/25 15:55 Sputum Gram Stain - Final Complete 05/27/25 15:55 Respiratory Culture - Final Stenotrophomonas maltophilia Complete 05/20/25 18:09 Nose MRSA Screen - Final Complete 05/20/25 01:02 Urine - [place] Urine Culture - Final Yeast, not Dulce albicans Complete 05/19/25 08:14 Blood Blood Culture - Final NO GROWTH AFTER 5 DAYS OF INCUBATION. Complete Problem List/Assessment/Plan Problem List/Assessment/Plan Assessment Critical, complex multi-organ failure patient. 1. Severe Sepsis / Pneumonia due to MDR organisms (Stenotrophomonas, Pseudomonas, Enterobacter). On broad antimicrobials (Ciprofloxacin, TMP-SMX, Micafungin). 2. Acute hypoxemic respiratory failure intubated (Day 7), ventilator- dependent. 3. AD on CKD Stage IV on HD, anuric, currently trial of Lasix drip for edema. 4. Volume overload / Edema due to oligoanuria and CHF. 5. Atrial fibrillation previously on amiodarone drip; now rate-controlled. 6. CHF / NSTEMI stable, compensated. 7. PAD with Left foot gangrene s/p BKA stable surgical site. 8. Thrombocytopenia & Anemia likely multifactorial (sepsis, critical illness, marrow suppression, renal disease). Received platelets. 9. Metabolic encephalopathy improving; patient follows commands. 10. History of DVT prophylaxis complicated by thrombocytopenia. 11. Poor prognosis given multi-organ dysfunction, infections, dialysis- dependence. Plan (System-plascencia) Respiratory * Continue mechanical ventilation, FiO? 30%, PEEP 5. * Daily CXR and ABG. * Pulmonary hygiene, VAP bundle. * Pulmonology consult to follow. Cardiac * Monitor rhythm, electrolytes. * Off amiodarone drip; continue telemetry. * CAD: continue clopidogrel, ASA, statin when feasible. * Maintain MAP >65 mmHg; currently off vasopressors. Renal / Fluid * Continue Lasix drip to assess response. * Strict I/Os, daily weights. * HD tomorrow with high UF goal if inadequate diuresis. * Nephrology following. Infectious Disease * Continue Ciprofloxacin, TMP-SMX, Micafungin (covering Pseudomonas, Stenotrophomonas, Enterobacter, yeast). * Monitor cultures. Hematology * Monitor H/H, platelets. * PRBC transfusion if Hgb <7. * Platelets as indicated. * No heparin with HD due to thrombocytopenia. * Epogen 3x/week. GI / Nutrition * Resume tube feeds (no flushes). * Lactulose as ordered. * GI prophylaxis: Pantoprazole IV. Endocrine * DM2: continue sliding scale insulin, glucose monitoring. Neuro * Encephalopathy improving. Continue supportive care, avoid sedatives unless necessary. MSK / Surgical * Monitor left BKA stump no new drainage, wound care. Prophylaxis * GI: Pantoprazole IV. * DVT: Hold heparin due to thrombocytopenia. Consider SCDs. * Stress ulcer: continue prophylaxis. Case discussed in detail with the attending physician, including the clinical presentation, diagnostic workup, and comprehensive management plan. The patient was present for the discussion and demonstrated understanding of his condition and the proposed plan Plan discussed with: Other (RN) My Orders My Orders Orders - FABRICIO CALVIN RESIDENT Procedure Category Date Status Time Complete Blood Count LAB 05/31/25 Verified 04:00 Comprehensive LAB 05/31/25 Verified Metabolic Panel 04:00 Sodium Chl 0.9% PHA 05/30/25 Pending (So... W/Furosemide 15:00 Dietary Evaluation Review Comments: 1) Advance to [facility] 75gm + cardiac diet 2) Armen 1 pk BID, MVI w/ minerals 1 tab daily, VitC 500mg BID, Zinc sulfate 220mg BID x 10 days 3) Monitor NPO status, lab values, weight trend, and I/O Expected Outcomes/Goals: To meet >75% estimated needs Wound to improve Fu 2-3 days Date of Service: May 30, 2025 Billing Provider: LAUREN MA MD Common Visit Codes: [id number] CARE 30-74 MIN (crit care time 40 minutes) FABRICIO CALVIN RESIDENT May 30, 2025 15:09 LAUREN MA MD Jun 01, 2025 15:33
--- NOTE | 2025-05-30 19:00 | ECG ---
[facility] Test Date: 2025-05-30 Test Time: 11:14:13 Pat Name: RAJESH ELIAS Department: ICU Room: [address] [place] [address] A Gender: M Binder Fixer: BECKI : [id number] Requested By: LAUREN MA Order Number: [id number] Reading MD: Kelton Ji Measurements Intervals [place] Rate: 66 P: 32 MA: 184 QRS: -74 QRSD: 162 T: 3 QT: 482 QTc: 506 Interpretive Statements Sinus rhythm RBBB and LAFB Electronically Signed On 05-31-2025 15:38:40 PDT by Kelton Ji Please click the below link to view image of tracing.
--- NOTE | 2025-05-30 23:01 | DVHPN2 ---
Subjective DOS: 05/30/2025 Patient seen and examined at bedside. Sedated, intubated on mechanical ventilator. Overnight events reviewed. Reviewed: Care Plan, H&P, Labs, Medications, Previous Orders Changes from previous H/P or p: No Changes General: Per HPI Objective Vitals Vital Signs Date Time Temp Pulse Resp B/P (MAP) Pulse Ox O2 Delivery O2 Flow Rate FiO2 05/30/25 22:30 98.2 70 16 111/56 (74) 98 208.8 05/30/25 22:03 30 05/30/25 22:00 Mechanical Ventilator+ Intake/Output Intake and Output 05/30/25 07:00 Intake Total 1466.730 ml Output Total 100 ml Balance 1366.730 ml Intake Oral 150 ml IV Total 1120.730 ml Tube Feeding 196 ml Output Urine Total 100 ml # Bowel Movements 1 General Appearance: Other (Encephalopathic) HEENT: Atraumatic, PERRLA Lungs: Other (On vent. Transmitted breath sounds bilaterally. Decreased air entry bilaterally. No wheezing. Bibasilar crackles.) Cardiovascular: Normal S1, Normal S2, Other (Atrial fibrillation) Abdomen: Normal bowel sounds, Soft, No tenderness, No hepatospenomegaly Genitourinary: No Apparent Abnormalities (Leung catheter) Musculoskeletal: Other (Unable to assess) Extremities: Normal pulses, Other (Left BKA) Neuro: Other (Unable to assess) Skin: Wounds (See nurse notes and pictures) Psych/Mental Status: Other (Unable to assess) Medications Current Medications Medications Dose Ordered Sig/Bandar Route Start Time Stop Time Status Last Admin Dose Admin Acetaminophen 650 mg Q6HP PRN PO 05/04/25 15:00 Clopidogrel Bisulfate 75 mg DAILY PO 05/07/25 10:00 05/29/25 10:24 75 MG Atorvastatin Calcium 40 mg HS PO 05/17/25 22:00 Hold 05/20/25 22:20 40 MG Sodium Chloride 10 ml QSHIFT@10,22 IV 05/19/25 22:00 05/30/25 21:42 10 ML Norepinephrine Bitartrate 32 mg/ Sodium Chloride 250 ml @ 0.938 mls/ hr Q24H IV 05/21/25 01:00 05/24/25 06:45 0.938 MLS/HR Pantoprazole Sodium 40 mg DAILY IV 05/21/25 10:00 05/30/25 09:59 40 MG Artificial Tears 1 drop Q6HP PRN EACHEYE 05/21/25 05:00 Diagnostic Test (Pha) 1 strip Q6HR 05/23/25 00:00 05/30/25 17:21 1 STRIP Insulin Human Regular FOLLOW SLIDING SCALE Q6HR SC 05/23/25 00:00 05/30/25 17:38 2 UNITS Dextrose 50 ml UD IV 05/22/25 22:00 05/24/25 11:36 50 ML Fentanyl Citrate 250 ml @ 2.5 mls/hr Q24H IV 05/23/25 14:00 05/25/25 22:51 15 MLS/HR Albumin Human 100 ml @ 100 mls/hr PRN PRN IV 05/24/25 06:45 05/29/25 18:00 100 MLS/HR Enteral Nutritional Formula 1,000 ml 50ML/HR GT 05/24/25 17:30 05/27/25 22:51 1,000 ML Folic Acid 1 mg DAILY PO 05/25/25 10:00 05/30/25 09:59 1 MG Multivitamins 1 tab DAILY PO 05/25/25 10:00 05/30/25 10:00 1 TAB Cyanocobalamin 1,000 mcg DAILY PO 05/25/25 10:00 05/30/25 10:00 1,000 MCG Pyridoxine HCl 50 mg DAILY PO 05/25/25 10:00 05/30/25 10:11 50 MG Ondansetron HCl 4 mg Q4HPRN PRN IV 05/25/25 18:00 Ciprofloxacin 200 ml @ 200 mls/hr Q12HR IV 05/26/25 22:00 05/30/25 21:41 200 MLS/HR Micafungin Sodium 100 mg/Sodium Chloride 100 ml @ 100 mls/hr DAILY IV 05/28/25 10:00 05/30/25 09:59 100 MLS/HR Lactulose 30 ml BID GT 05/28/25 10:00 05/30/25 09:57 30 ML Trimethoprim/ Sulfamethoxazole 0 ml @ 0 mls/hr PER PHARMACY IV 05/28/25 09:45 Trimethoprim/ Sulfamethoxazole 10 ml/Dextrose 260 ml @ 173.333 mls/hr Q12HR IV 05/28/25 22:00 05/30/25 22:42 173.333 MLS/HR Amiodarone HCl 200 mg Q12HR GT 05/29/25 10:00 05/30/25 21:41 200 MG Furosemide 100 mg/ Sodium Chloride 110 ml @ 22 mls/hr Q5H IV 05/30/25 11:30 05/30/25 22:11 22 MLS/HR Laboratory Results Laboratory Tests 05/30/25 04:15 05/30/25 08:50 Chemistry Test 05/30/25 04:15 Albumin 3.9 g/dL (3.2-4.8) Calcium Level 8.8 mg/dL (8.7-10.4) Total Protein 5.7 g/dL (5.7-8.2) LFT Test 05/30/25 04:15 Alanine Aminotransferase (ALT) 35 U/L (7-40) Alkaline Phosphatase 156 U/L (46-116) H Aspartate Amino Transferase (AST) 34 U/L (13-40) Total Bilirubin 1.2 mg/dL (0.2-1.0) H Urinalysis Test 05/16/25 15:18 05/20/25 01:02 Urine Hyaline Casts Few /lpf (0 - 2) Urine Mucus Few (None Seen) Urine Yeast (Budding) Many /hpf (None Seen) Urine Osmolality 359 mOsm/kg Urine Creatinine 122.44 mg/dL (30.0-125.0) Urine Protein/Creatinine Ratio 1.06 Urine Sodium 17 mmol/L (40-220) L Urine Total Protein 130.0 mg/dL (1-14) H Urine Color Dark yellow (Yellow) Urine Clarity Ex.turbid (Clear) Urine pH 5.5 (5.0-9.0) Urine Specific [place] 1.013 (1.001-1.035) Urine Protein 1+ (Negative) H Urine Ketones Negative (Negative) Urine Blood 1+ /uL (Negative) H Urine Nitrite Negative (Negative) Urine Bilirubin Negative (Negative) Urine Urobilinogen Normal mg/dL (Negative) Urine Leukocyte Esterase 3+ /uL (Negative) Urine RBC 62 /hpf (0 - 3) Urine WBC Clumps Present /hpf (None Seen) Urine Microscopic WBC 2744 /HPF (0-3) H Urine Squamous Epithelial Cells None seen /hpf (<5) Urine Bacteria None seen /hpf (None Seen) Urine Glucose Normal mg/dL (Normal) Blood Gas Results Test 05/30/25 09:27 Arterial Blood pH 7.492 (7.350-7.450) FiO2 % 30.0 Microbiology Microbiology Date/Time Source Procedure Growth Status 05/27/25 15:55 Sputum Gram Stain - Final Complete 05/27/25 15:55 Respiratory Culture - Final Stenotrophomonas maltophilia Complete 05/20/25 18:09 Nose MRSA Screen - Final Complete 05/20/25 01:02 Urine - [place] Urine Culture - Final Yeast, not Dulce albicans Complete 05/19/25 08:14 Blood Blood Culture - Final NO GROWTH AFTER 5 DAYS OF INCUBATION. Complete Assessment/Plan Assessment/Plan Impression: Acute hypoxic respiratory failure On mechanical ventilator Severe sepsis Atrial fibrillation with RVR, rate controlled now Pancytopenia Left lower extremity gangrene with severe peripheral arterial disease Status post left [id number] amputation Acute kidney injury secondary to vasomotor nephropathy On hemodialysis Pneumonia secondary to stenotrophomonas maltophilia, Pseudomonas aeruginosa Complicated cystitis with the use Metabolic encephalopathy Coronary artery disease Thrombocytopenia Events: Remains on vent support AC mode: Respiratory rate 16, tidal volume 400, PEEP of 5, FiO2 of 30%. Taper Fio2 as tolerated CXR image and report reviewed. Pulmonary vascular congestion and cardiomegaly, unchanged. Devices in place. ABG reviewed. Alkalemia Status post tube exchange yesterday due to cuff leak Continue antibiotics Diurese with Lasix drip Monitor renal function Monitor electrolytes. Supplement as necessary. Monitor ins and outs Nephrology recs appreciated. Tapered off Levophed this AM. Monitor hemodynamics Awaiting for mentation to improve. Labs and imaging reviewed. Rest of plan as noted below. Plan: s/p intubation on mechanical ventilator Vent: Respiratory rate 16, tidal volume 400, PEEP of 5, FiO2 of 30%. Titrate FIO2 to keep O2 saturation above 92%. VAP bundle Daily ABG and CXR while intubated. Pressors as necessary for hemodynamic support. Titrate to keep MAP above 65 mmHg/SBP above 90 mmHg. Continue antibiotics and antifungals. F/u cultures. Repeat sputum culture notable for Gram-negative rods. On amiodarone PO. Monitor platelets. Monitor hgb. Monitor renal function due to Acute kidney injury. Monitor electrolytes. Supplement as necessary. Nutritional support. Accucheks, ISS. GI/DVT prophylaxis. Condition: Critical Prognosis: Poor given multiple comorbidities. Rest of plan per hospitalist and other consultants. A total of 35 minutes of critical care time was spent reviewing the patient record, examining the patient, making a diagnostic and therapeutic plan, discussing this plan with the medical personnel, following up on diagnostic studies and following the patient for clinical stability excluding any and all procedures. At least 50% of this time was spent in direct, [id number] contact. Thank you for allowing me to participate in this patient's care. Further recommendations will depend on patient's clinical course. Please do not hesitate to contact me if you have any questions or concerns. This medical document was created using an electronic medical record system with [employer] dictation system. Although this document has been carefully reviewed, there may still be some phonetic and typographical errors. These areas are purely typographical due to imperfections of the software programs, and do not reflect any compromise in the patient's medical care. Plan discussed with: Other (AIME Jorge) My Orders Orders - SHALINI BENITES MD Procedure Category Date Status Time Magnesium LAB 05/31/25 Verified 04:00 Phosphorus LAB 05/31/25 Verified 04:00 Date of Service: May 30, 2025 Billing Provider: SHALINI BENITES MD Common Visit Codes: [id number] INP/OBS CARE(HIGH), [id number] CARE 30-74 MIN SHALINI BENITES MD May 30, 2025 23:01
[2025-05-31] VITALS (111 sets, daily range): BP systolic 80–124; BP diastolic 25–72; PULSE 64–123; RESP 13–25; TEMP 97.3–98.8; O2SAT 92–100
[2025-05-31 03:37] LABS: Hematocrit 28.3 % (41.0-53.0); Hemoglobin 9.6 g/dL (13.5-17.5); Mean Corpuscular Hemoglobin 32.0 pg (28.0-32.0); Mean Corpuscular Volume 93.9 fL (80.0-100.0)
[2025-05-31 03:39] LABS: Alanine Aminotransferase 32 U/L (7-40); Albumin 3.8 g/dL (3.2-4.8); Anion Gap 11 (5-15); BUN/Creatinine Ratio 10.5 (10.0-20.0); Bilirubin, Total 0.9 mg/dL (0.2-1.0); Calcium 9.1 mg/dL (8.7-10.4); Carbon Dioxide 28 mmol/L (20-31); Magnesium 1.8 mg/dL (1.6-2.6); Potassium 3.9 mmol/L (3.5-5.1); Total Protein 5.8 g/dL (5.7-8.2)
[2025-05-31 03:41] LABS: Alkaline Phosphatase 151 U/L (46-116); Blood Urea Nitrogen 27 mg/dL (9-23); Chloride 96 mmol/L (98-107); Glucose 155 mg/dL (74-106); Sodium 135 mmol/L (136-145)
--- NOTE | 2025-05-31 05:01 | DVH ---
CHEST RADIOGRAPH Indication: ET intubation Technique: Single frontal view of the chest was obtained COMPARISON: XY CHEST XRAY 1 VIEW on DOS: 05/30/25, XY CHEST PORTABLE on DOS: 05/29/25, XY CHEST XRAY 1 VIEW on DOS: 05/28/25, XY CHEST XRAY 1 VIEW on DOS: 05/28/25, XY CHEST XRAY 1 VIEW on DOS: 05/27/25 FINDINGS: Lines and Tubes: Unchanged. Lungs: Stable appearing diffuse multifocal bilateral pulmonary airspace disease. Small bilateral ple ural effusions. No pneumothorax. Cardiomediastinal contours: Unremarkable Bones: Unremarkable IMPRESSION: 1. Stable appearing diffuse multifocal bilateral pulmonary airspace disease. 2. Small bilateral pleural effusions. 3. Lines and tubes unchanged.
[2025-05-31 05:13] LABS: Total Cells Counted 100.0 (100)
[2025-05-31] MEDS: MAGNESIUM SULFATE 1GM/100ML 100 ML IV ONE ×2 (05:13→15:34)
[2025-05-31] MEDS: SODIUM CHL 0.9% 1000 ML BAG XX ONE (07:00)
[2025-05-31 07:29] LABS: Base Excess 2.6 mmol/L (-2.0-3.0)
--- NOTE | 2025-05-31 09:57 | DVHPN2 ---
Progress Note Date Seen: May 31, 2025 Has the PT tested + for MRSA If YES, has PT been informed?: No Medical Necessity Reason Pt with a Central, PICC or Fol: Yes The following are medically ne: Central Line, Leung Catheter Objective vital signs Vital Sign Date Time Temp Pulse Resp B/P (MAP) Pulse Ox O2 Delivery O2 Flow Rate FiO2 05/31/25 07:20 87 17 119/57 (77) 100 30 05/31/25 06:45 98.1 208.6 05/31/25 05:51 Mechanical Ventilator+ Total Intake and Output 05/30/25 05/30/25 05/31/25 14:59 22:59 06:59 Intake Total 669.604 ml 745 ml 845 ml Output Total 30 ml 210 ml Balance 669.604 ml 715 ml 635 ml medications Current Medications Medications Dose Ordered Sig/Bandar Route Start Time Stop Time Status Last Admin Dose Admin Acetaminophen 650 mg Q6HP PRN PO 05/04/25 15:00 Clopidogrel Bisulfate 75 mg DAILY PO 05/07/25 10:00 05/29/25 10:24 75 MG Atorvastatin Calcium 40 mg HS PO 05/17/25 22:00 Hold 05/20/25 22:20 40 MG Sodium Chloride 10 ml QSHIFT@10,22 IV 05/19/25 22:00 05/30/25 21:42 10 ML Norepinephrine Bitartrate 32 mg/ Sodium Chloride 250 ml @ 0.938 mls/ hr Q24H IV 05/21/25 01:00 05/24/25 06:45 0.938 MLS/HR Pantoprazole Sodium 40 mg DAILY IV 05/21/25 10:00 05/30/25 09:59 40 MG Artificial Tears 1 drop Q6HP PRN EACHEYE 05/21/25 05:00 Diagnostic Test (Pha) 1 strip Q6HR 05/23/25 00:00 05/31/25 06:23 1 STRIP Insulin Human Regular FOLLOW SLIDING SCALE Q6HR SC 05/23/25 00:00 05/31/25 06:25 2 UNITS Dextrose 50 ml UD IV 05/22/25 22:00 05/24/25 11:36 50 ML Fentanyl Citrate 250 ml @ 2.5 mls/hr Q24H IV 05/23/25 14:00 05/25/25 22:51 15 MLS/HR Albumin Human 100 ml @ 100 mls/hr PRN PRN IV 05/24/25 06:45 05/29/25 18:00 100 MLS/HR Enteral Nutritional Formula 1,000 ml 50ML/HR GT 05/24/25 17:30 05/27/25 22:51 1,000 ML Folic Acid 1 mg DAILY PO 05/25/25 10:00 05/30/25 09:59 1 MG Multivitamins 1 tab DAILY PO 05/25/25 10:00 05/30/25 10:00 1 TAB Cyanocobalamin 1,000 mcg DAILY PO 05/25/25 10:00 05/30/25 10:00 1,000 MCG Pyridoxine HCl 50 mg DAILY PO 05/25/25 10:00 05/30/25 10:11 50 MG Ondansetron HCl 4 mg Q4HPRN PRN IV 05/25/25 18:00 Ciprofloxacin 200 ml @ 200 mls/hr Q12HR IV 05/26/25 22:00 05/30/25 21:41 200 MLS/HR Micafungin Sodium 100 mg/Sodium Chloride 100 ml @ 100 mls/hr DAILY IV 05/28/25 10:00 05/30/25 09:59 100 MLS/HR Lactulose 30 ml BID GT 05/28/25 10:00 05/30/25 09:57 30 ML Trimethoprim/ Sulfamethoxazole 0 ml @ 0 mls/hr PER PHARMACY IV 05/28/25 09:45 Trimethoprim/ Sulfamethoxazole 10 ml/Dextrose 260 ml @ 173.333 mls/hr Q12HR IV 05/28/25 22:00 05/30/25 22:42 173.333 MLS/HR Amiodarone HCl 200 mg Q12HR GT 05/29/25 10:00 05/30/25 21:41 200 MG Furosemide 100 mg/ Sodium Chloride 110 ml @ 22 mls/hr Q5H IV 05/30/25 11:30 05/31/25 06:26 22 MLS/HR laboratory and microbiology Laboratory Tests 05/31/25 03:03 Test 05/31/25 03:03 Range/Units Serum Glucose 155 H 74-106 mg/dL Microbiology Date/Time Source Procedure Growth Status 05/27/25 15:55 Sputum Gram Stain - Final Complete 05/27/25 15:55 Respiratory Culture - Final Stenotrophomonas maltophilia Complete 05/20/25 18:09 Nose MRSA Screen - Final Complete 05/20/25 01:02 Urine - [place] Urine Culture - Final Yeast, not Dulce albicans Complete 05/19/25 08:14 Blood Blood Culture - Final NO GROWTH AFTER 5 DAYS OF INCUBATION. Complete Problem List/Assessment/Plan Problem List/Assessment/Plan Acute kidney injury superimposed Chronic Kidney Disease stage IV secondary hemodynamic mediated, FeNa < 1% Chronic kidney disease stage IV followed by Dr. Ponce Gangrene left foot, status post left below-knee amputation 05/20 Left lower extremity DVT Ventilator-dependent hypoxic respiratory failure intubated Diabetes mellitus type 2 Chronic diastolic Congestive heart failure/ NSTEMI Septic shock History of testicular cancer Cellulitis lower extremity thrombocytopenia/ anemia seen on HD in icu failed lasix drip, HD ordered for today sequential and HD today due to hypervolemia low platelets---no heparin with HD Remains oligo anuric no response to diuretics Epogen 3x a week Guarded prognosis patient will need longer term dialysis b/c no evidence of renal recovery this will require fpc care facility if he does not clinically improve Plan discussed with: Patient My Orders My Orders Orders - ALEJANDRO PONCE MD Procedure Category Date Status Time Sodium Chl 0.9% PHA 05/30/25 In Process (So... W/Furosemide 11:30 Hemodialysis Orders ORDERS 05/31/25 Transmitted 07:00 Dialysis Nursing [facility] 05/31/25 In Process Message 07:00 Document Fluid Input [facility] 05/31/25 In Process And Outpu 07:00 Dietary Evaluation Review Comments: 1) [facility] + cardiac diet 2) Armen 1 pk BID, MVI w/ minerals 1 tab daily, VitC 500mg BID, Zinc sulfate 220mg BID x 10 days 3) Monitor NPO status, lab values, weight trend, and I/O Expected Outcomes/Goals: To meet >75% estimated needs Wound to improve Fu 2-3 days Critical Care Time (mins): 72 ALEJANDRO PONCE MD May 31, 2025 09:57
[2025-05-31] MEDS: DEXMEDETOMIDINE HCL IN D5W 100 ML IV SCH (13:28)
--- NOTE | 2025-05-31 16:06 | DVHPNRES ---
Progress Note Date Seen: May 31, 2025 Resident Creating Document: FABRICIO CALVIN RESIDENT Has the PT tested + for MRSA If YES, has PT been informed?: No Medical Necessity Reason Pt with a Central, PICC or Fol: Yes The following are medically ne: Central Line, Leung Catheter Subjective Review of Systems * Patient remains intubated (day 8). * Hemodialysis performed today: 3 liters ultrafiltration removed. * Tube feed residuals: Pre-HD 500 mL, post-HD 50 mL ? improved gastric emptying after volume removal. * Respiratory: Successfully tolerated CPAP trial with FiO? 35% (trial also performed on 100% FiO?) ? stable oxygenation and good tolerance. * Cardiac: QTc prolonged at 520 ms; dose of magnesium administered. * Nutrition: Continued trickle tube feeds. * Plan: Gradual weaning with goal for extubation when stable; ongoing volume management; electrolyte monitoring. Objective vital signs Vital Sign Date Time Temp Pulse Resp B/P (MAP) Pulse Ox O2 Delivery O2 Flow Rate FiO2 05/31/25 15:30 98.1 79 16 102/47 (65) 100 208.6 05/31/25 14:00 Mechanical Ventilator+ 40 40 Total Intake and Output 05/30/25 05/30/25 05/31/25 15:00 23:00 07:00 Intake Total 690.666 ml 1005 ml 585 ml Output Total 30 ml 210 ml Balance 690.666 ml 975 ml 375 ml medications Current Medications Medications Dose Ordered Sig/Bandar Route Start Time Stop Time Status Last Admin Dose Admin Acetaminophen 650 mg Q6HP PRN PO 05/04/25 15:00 Clopidogrel Bisulfate 75 mg DAILY PO 05/07/25 10:00 05/31/25 12:18 75 MG Atorvastatin Calcium 40 mg HS PO 05/17/25 22:00 Hold 05/20/25 22:20 40 MG Sodium Chloride 10 ml QSHIFT@10,22 IV 05/19/25 22:00 05/31/25 12:18 10 ML Norepinephrine Bitartrate 32 mg/ Sodium Chloride 250 ml @ 0.938 mls/ hr Q24H IV 05/21/25 01:00 05/24/25 06:45 0.938 MLS/HR Pantoprazole Sodium 40 mg DAILY IV 05/21/25 10:00 05/31/25 13:22 40 MG Artificial Tears 1 drop Q6HP PRN EACHEYE 05/21/25 05:00 Diagnostic Test (Pha) 1 strip Q6HR 05/23/25 00:00 05/31/25 11:28 1 STRIP Insulin Human Regular FOLLOW SLIDING SCALE Q6HR SC 05/23/25 00:00 05/31/25 11:28 2 UNITS Dextrose 50 ml UD IV 05/22/25 22:00 05/24/25 11:36 50 ML Fentanyl Citrate 250 ml @ 2.5 mls/hr Q24H IV 05/23/25 14:00 05/25/25 22:51 15 MLS/HR Albumin Human 100 ml @ 100 mls/hr PRN PRN IV 05/24/25 06:45 05/31/25 10:52 100 MLS/HR Enteral Nutritional Formula 1,000 ml 50ML/HR GT 05/24/25 17:30 05/27/25 22:51 1,000 ML Folic Acid 1 mg DAILY PO 05/25/25 10:00 05/31/25 12:18 1 MG Multivitamins 1 tab DAILY PO 05/25/25 10:00 05/31/25 12:17 1 TAB Cyanocobalamin 1,000 mcg DAILY PO 05/25/25 10:00 05/31/25 12:17 1,000 MCG Pyridoxine HCl 50 mg DAILY PO 05/25/25 10:00 05/31/25 12:28 50 MG Ondansetron HCl 4 mg Q4HPRN PRN IV 05/25/25 18:00 Ciprofloxacin 200 ml @ 200 mls/hr Q12HR IV 05/26/25 22:00 05/31/25 12:19 200 MLS/HR Micafungin Sodium 100 mg/Sodium Chloride 100 ml @ 100 mls/hr DAILY IV 05/28/25 10:00 05/31/25 15:18 100 MLS/HR Lactulose 30 ml BID GT 05/28/25 10:00 05/30/25 09:57 30 ML Trimethoprim/ Sulfamethoxazole 0 ml @ 0 mls/hr PER PHARMACY IV 05/28/25 09:45 Trimethoprim/ Sulfamethoxazole 10 ml/Dextrose 260 ml @ 173.333 mls/hr Q12HR IV 05/28/25 22:00 05/31/25 13:23 173.333 MLS/HR Amiodarone HCl 200 mg Q12HR GT 05/29/25 10:00 05/31/25 12:17 200 MG Examination * Gen: Awake, intubated, follows commands. * HEENT: Pupils equal/reactive. * Resp: On CPAP, synchronous, no distress. * CV: Regular rhythm, no murmurs; telemetry shows QTc prolongation. * Abd: Soft, non-distended, GT in place. * Ext: +2 edema, improved post-HD; left BKA stump CDI. * Neuro: Tracks, obeys; no lateralizing signs. * Lines: Leung, ETT secure. laboratory and microbiology Laboratory Tests 05/31/25 03:03 Test 05/31/25 03:03 Range/Units Serum Glucose 155 H 74-106 mg/dL Microbiology Date/Time Source Procedure Growth Status 05/27/25 15:55 Sputum Gram Stain - Final Complete 05/27/25 15:55 Respiratory Culture - Final Stenotrophomonas maltophilia Complete 05/20/25 18:09 Nose MRSA Screen - Final Complete 05/20/25 01:02 Urine - [place] Urine Culture - Final Yeast, not Dulce albicans Complete 05/19/25 08:14 Blood Blood Culture - Final NO GROWTH AFTER 5 DAYS OF INCUBATION. Complete Problem List/Assessment/Plan Problem List/Assessment/Plan Assessment Critical, complex multi-organ failure patient. 1. Severe Sepsis / Pneumonia due to MDR organisms (Stenotrophomonas, Pseudomonas, Enterobacter). On broad antimicrobials (Ciprofloxacin, TMP-SMX, Micafungin). 2. Acute hypoxemic respiratory failure intubated (Day 7), ventilator- dependent. 3. AD on CKD Stage IV on HD, anuric, currently trial of Lasix drip for edema. 4. Volume overload / Edema due to oligoanuria and CHF. 5. Atrial fibrillation previously on amiodarone drip; now rate-controlled. 6. CHF / NSTEMI stable, compensated. 7. PAD with Left foot gangrene s/p BKA stable surgical site. 8. Thrombocytopenia & Anemia likely multifactorial (sepsis, critical illness, marrow suppression, renal disease). Received platelets. 9. Metabolic encephalopathy improving; patient follows commands. 10. History of DVT prophylaxis complicated by thrombocytopenia. 11. Poor prognosis given multi-organ dysfunction, infections, dialysis- dependence. Plan 1) Acute hypoxic respiratory failure on mechanical ventilation * Status: Successfully tolerated CPAP trial (FiO? 68486%). * Plan: * Continue daily SAT/SBT. * Gradual weaning ? plan for extubation when stable. * Maintain FiO? <40% and PEEP 5 for readiness. * Daily ABG, CXR; monitor for VAP. 2) Sepsis / severe pneumonia * Culture-proven: Stenotrophomonas, Pseudomonas, Enterobacter. * Plan: * Continue current antibiotics (TMP-SMX, ciprofloxacin, micafungin). * ID stewardship to adjust per sensitivities. * Monitor temp, WBC, cultures. 3) AD on CKD IV, anuric; HD dependent * Status: HD today with 3L UF; tolerated well. * Plan: * HD per nephrology; monitor fluid status. * Daily BMP, Mg, Phos; strict I/O, daily weights. * Avoid nephrotoxins; dose-adjust meds. 4) Volume overload / anasarca * Improving post-HD; continue diuresis as tolerated. * Plan: * Continue HD; consider furosemide if any urine output returns. * Monitor residual edema and respiratory status. 5) Severe thrombocytopenia / anemia * Status: Platelets ~17K, Hb ~7.6. * Plan: * Transfuse platelets <10K or <2030K if bleeding/procedures. * PRBC transfusion if Hb <7 or symptomatic. * Hold pharmacologic DVT prophylaxis; SCDs only. * Start clopidogrel . 6) Cardiac arrhythmia / prolonged QT * QTc 520; amiodarone ongoing. * Plan: * Magnesium administered; replete electrolytes (Mg >2.0, K >4.0). * Monitor QTc on telemetry; avoid QT-prolonging agents. * Cardiology input if persistent. 7) Diabetes mellitus type 2 / critical illness hyperglycemia * Glucose 51195. * Plan: Sliding-scale insulin; target 460479 mg/dL. 8) Nutrition / GI * TF residuals improved post-HD (500 ? 50 mL). * Plan: Continue trickle feeds, advance as tolerated. * Monitor residuals q46h. * Pantoprazole for PUD prophylaxis; lactulose for bowel regimen. 9) PAD s/p left BKA * Stump clean. * Plan: Wound checks, offloading, PT/OT when feasible. 10) Prophylaxis * VAP bundle: HOB >30, oral care, sedation light. * GI: Pantoprazole. * DVT: SCDs only (severe thrombocytopenia). * Lines: Daily review; change Leung if indicated. Case discussed in detail with the attending physician, including the clinical presentation, diagnostic workup, and comprehensive management plan. The patient was present for the discussion and demonstrated understanding of his condition and the proposed plan Plan discussed with: Other My Orders My Orders Orders - FABRICIO CALVIN RESIDENT Procedure Category Date Status Time Magnesium Sulfate PHA 05/31/25 In Process 1gm/100ml 16:00 Complete Blood Count LAB 06/01/25 Verified 04:00 Comprehensive LAB 06/01/25 Verified Metabolic Panel 04:00 Dietary Evaluation Review Comments: 1) Advance to [facility] 75gm + cardiac diet 2) Armen 1 pk BID, MVI w/ minerals 1 tab daily, VitC 500mg BID, Zinc sulfate 220mg BID x 10 days 3) Monitor NPO status, lab values, weight trend, and I/O Expected Outcomes/Goals: To meet >75% estimated needs Wound to improve Fu 2-3 days Date of Service: May 31, 2025 Billing Provider: LAUREN MA MD Common Visit Codes: [id number] CARE 30-74 MIN (crit care time 40 minutes) FABRICIO CALVIN RESIDENT May 31, 2025 16:06 LAUREN MA MD Jun 01, 2025 15:37
[2025-06-01] VITALS (110 sets, daily range): BP systolic 89–119; BP diastolic 40–73; PULSE 62–131; RESP 12–27; TEMP 97.9–99.7; O2SAT 92–100
[2025-06-01] MEDS: ARTIFICIAL TEARS 15ml EACHEYE PRN (01:21)
[2025-06-01 02:59] LABS: Alanine Aminotransferase 26 U/L (7-40); Albumin 3.7 g/dL (3.2-4.8); Alkaline Phosphatase 109 U/L (46-116); Anion Gap 13 (5-15); BUN/Creatinine Ratio 10.1 (10.0-20.0); Bilirubin, Total 0.9 mg/dL (0.2-1.0); Calcium 8.9 mg/dL (8.7-10.4); Carbon Dioxide 28 mmol/L (20-31); Magnesium 2.3 mg/dL (1.6-2.6)
[2025-06-01 03:02] LABS: Blood Urea Nitrogen 27 mg/dL (9-23); Chloride 94 mmol/L (98-107); Glucose 158 mg/dL (74-106); Potassium 3.2 mmol/L (3.5-5.1); Sodium 135 mmol/L (136-145); Total Protein 5.4 g/dL (5.7-8.2)
[2025-06-01 04:01] LABS: Hemoglobin 7.7 g/dL (13.5-17.5); Mean Corpuscular Hemoglobin 32.7 pg (28.0-32.0)
[2025-06-01 04:05] LABS: Hematocrit 22.4 % (41.0-53.0); Mean Corpuscular Volume 95.1 fL (80.0-100.0); Nucleated Red Blood Cells % 0.1 %
[2025-06-01] MEDS: POTASSIUM CHL 20MEQ/100ML 100 ML IV SCH (04:58)
--- NOTE | 2025-06-01 05:21 | DVH ---
CHEST RADIOGRAPH Indication: ET intubation Technique: Single frontal view of the chest was obtained COMPARISON: XY CHEST XRAY 1 VIEW on DOS: 05/31/25, XY CHEST XRAY 1 VIEW on DOS: 05/30/25, XY CHEST PORT ABLE on DOS: 05/29/25, XY CHEST XRAY 1 VIEW on DOS: 05/28/25, XY CHEST XRAY 1 VIEW on DOS: 05/28/25 FINDINGS: Lines and Tubes: Slight interval advancement of endotracheal tube such that the tip now projects appr oximately 1.6 cm above the level of the livier. Remaining lines and tubes unchanged. Lungs: Grossly stable appearing bibasilar pulmonary airspace disease and bilateral pleural effusions. No pneumothorax. Cardiomediastinal contours: Cardiomegaly. Bones: Unremarkable IMPRESSION: 1. Slight interval advancement of endotracheal tube such that the tip now projects approximately 1.6 cm above the level of the livier. Remaining lines and tubes unchanged. 2. Stable bibasilar pulmonary airspace disease and bilateral pleural effusions. 3. Cardiomegaly.
[2025-06-01] MEDS: SODIUM CHL 0.9% 1000 ML BAG XX ONE (07:00)
[2025-06-01 07:54] LABS: Base Excess 0.9 mmol/L (-2.0-3.0)
--- NOTE | 2025-06-01 15:09 | DVHPN2 ---
Progress Note Date Seen: Jun 01, 2025 Has the PT tested + for MRSA If YES, has PT been informed?: No Medical Necessity Reason Pt with a Central, PICC or Fol: Yes The following are medically ne: Central Line, Leung Catheter Objective vital signs Vital Sign Date Time Temp Pulse Resp B/P (MAP) Pulse Ox O2 Delivery O2 Flow Rate FiO2 06/01/25 14:45 98.1 98 16 92/48 (63) 100 208.6 06/01/25 14:00 Mechanical Ventilator+ 35 35 Total Intake and Output 05/31/25 05/31/25 06/01/25 15:00 23:00 07:00 Intake Total 504 ml 272.5 ml 432.625 ml Output Total 3050 ml 100 ml Balance 504 ml -2777.5 ml 332.625 ml medications Current Medications Medications Dose Ordered Sig/Bandar Route Start Time Stop Time Status Last Admin Dose Admin Acetaminophen 650 mg Q6HP PRN PO 05/04/25 15:00 Clopidogrel Bisulfate 75 mg DAILY PO 05/07/25 10:00 05/31/25 12:18 75 MG Atorvastatin Calcium 40 mg HS PO 05/17/25 22:00 Hold 05/20/25 22:20 40 MG Sodium Chloride 10 ml QSHIFT@10,22 IV 05/19/25 22:00 06/01/25 10:00 10 ML Norepinephrine Bitartrate 32 mg/ Sodium Chloride 250 ml @ 0.938 mls/ hr Q24H IV 05/21/25 01:00 05/31/25 21:05 2.813 MLS/HR Pantoprazole Sodium 40 mg DAILY IV 05/21/25 10:00 05/31/25 13:22 40 MG Artificial Tears 1 drop Q6HP PRN EACHEYE 05/21/25 05:00 06/01/25 01:21 1 DROP Diagnostic Test (Pha) 1 strip Q6HR 05/23/25 00:00 06/01/25 06:17 1 STRIP Insulin Human Regular FOLLOW SLIDING SCALE Q6HR SC 05/23/25 00:00 06/01/25 06:27 2 UNITS Dextrose 50 ml UD IV 05/22/25 22:00 05/24/25 11:36 50 ML Fentanyl Citrate 250 ml @ 2.5 mls/hr Q24H IV 05/23/25 14:00 05/31/25 18:02 2.5 MLS/HR Albumin Human 100 ml @ 100 mls/hr PRN PRN IV 05/24/25 06:45 06/01/25 12:15 100 MLS/HR Enteral Nutritional Formula 1,000 ml 50ML/HR GT 05/24/25 17:30 05/31/25 17:13 1,000 ML Folic Acid 1 mg DAILY PO 05/25/25 10:00 05/31/25 12:18 1 MG Multivitamins 1 tab DAILY PO 05/25/25 10:00 05/31/25 12:17 1 TAB Cyanocobalamin 1,000 mcg DAILY PO 05/25/25 10:00 05/31/25 12:17 1,000 MCG Pyridoxine HCl 50 mg DAILY PO 05/25/25 10:00 05/31/25 12:28 50 MG Ondansetron HCl 4 mg Q4HPRN PRN IV 05/25/25 18:00 Ciprofloxacin 200 ml @ 200 mls/hr Q12HR IV 05/26/25 22:00 05/31/25 22:02 200 MLS/HR Micafungin Sodium 100 mg/Sodium Chloride 100 ml @ 100 mls/hr DAILY IV 05/28/25 10:00 05/31/25 15:18 100 MLS/HR Lactulose 30 ml BID GT 05/28/25 10:00 05/30/25 09:57 30 ML Trimethoprim/ Sulfamethoxazole 0 ml @ 0 mls/hr PER PHARMACY IV 05/28/25 09:45 Trimethoprim/ Sulfamethoxazole 10 ml/Dextrose 260 ml @ 173.333 mls/hr Q12HR IV 05/28/25 22:00 05/31/25 22:02 173.333 MLS/HR Amiodarone HCl 200 mg Q12HR GT 05/29/25 10:00 06/01/25 09:29 200 MG laboratory and microbiology Laboratory Tests 06/01/25 03:40 06/01/25 02:30 Test 06/01/25 02:30 Range/Units Serum Glucose 158 H 74-106 mg/dL Microbiology Date/Time Source Procedure Growth Status 05/27/25 15:55 Sputum Gram Stain - Final Complete 05/27/25 15:55 Respiratory Culture - Final Stenotrophomonas maltophilia Complete 05/20/25 18:09 Nose MRSA Screen - Final Complete 05/20/25 01:02 Urine - [place]ung [place] Urine Culture - Final Yeast, not Dulce albicans Complete 05/19/25 08:14 Blood Blood Culture - Final NO GROWTH AFTER 5 DAYS OF INCUBATION. Complete Problem List/Assessment/Plan Problem List/Assessment/Plan Acute kidney injury superimposed Chronic Kidney Disease stage IV secondary hemodynamic mediated, FeNa < 1% Chronic kidney disease stage IV followed by Dr. Ponce Gangrene left foot, status post left below-knee amputation 05/20 Left lower extremity DVT Ventilator-dependent hypoxic respiratory failure intubated Diabetes mellitus type 2 Chronic diastolic Congestive heart failure/ NSTEMI Septic shock History of testicular cancer Cellulitis lower extremity thrombocytopenia/ anemia awake but intubated CPAP trial seen on HD in icu failed lasix drip, HD ordered for today sequential and HD today due to hypervolemia low platelets---no heparin with HD Remains oligo anuric no response to diuretics Epogen 3x a week, PRBC tomorrow if hb < 8.0 Guarded prognosis patient will need longer term dialysis b/c no evidence of renal recovery this will require halfway care facility if he does not clinically improve Plan discussed with: Patient My Orders My Orders Orders - ALEJANDRO PONCE MD Procedure Category Date Status Time Dialysis Nursing SALVADOR 06/01/25 In Process Message 07:00 Document Fluid Input SALV[facility]OR 06/01/25 In Process And Outpu 07:00 Hemodialysis Orders ORDERS 06/01/25 Transmitted 07:43 Dietary Evaluation Review Comments: 1) [facility] 2) Armen 1 pk BID, MVI w/ minerals 1 tab daily, VitC 500mg BID, Zinc sulfate 220mg BID x 10 days 3) Monitor NPO status, lab values, weight trend, and I/O Expected Outcomes/Goals: To meet >75% estimated needs Wound to improve Fu 2-3 days Critical Care Time (mins): 33 ALEJANDRO PONCE MD Jun 01, 2025 15:09
--- NOTE | 2025-06-01 16:39 | DVHPNRES ---
Progress Note Date Seen: Jun 01, 2025 Resident Creating Document: FABRICIO CALVIN RESIDENT Has the PT tested + for MRSA If YES, has PT been informed?: No Medical Necessity Reason Pt with a Central, PICC or Fol: Yes The following are medically ne: Leung Catheter Subjective Review of Systems * Hemodynamics/vent: Stable on the ventilator with FiO? 30%, SpO? 100%, RR 16, BP 108/55, HR ~70. * Weaning: CPAP trial planned after hemodialysis today; goal is gradual wean and extubation when parameters are met. * Renal/volume: Undergoing hemodialysis today for volume control and solute clearance; bilateral pleural effusions persist on CXR. * Labs today: WBC 7.2, Hgb 7.7 g/dL , Hct 22.4%, Plt 36 K/L ( from 25 K yesterday). * Imaging: CXR: cardiomegaly, bibasilar air-space disease with bilateral pleural effusionsno new focal consolidation. * Meds/other: Lactulose discontinued. Artificial tears q4h started for ocular surface protection. Weaning off norepinephrine (Levophed) with MAP target ?65. Trickle tube feeds continue. * Neuro: Awake, follows commands. * Resp: Vent-synchronous; secretions manageable. * CV: No chest pain; no new arrhythmia symptoms reported. * GI: Tolerating trickle tube feeds; residuals monitored. * : Oligo-/anuric; on intermittent HD. * Skin/Ext: Dependent edema; left BKA stump CDI. * ID: Afebrile. Objective vital signs Vital Sign Date Time Temp Pulse Resp B/P (MAP) Pulse Ox O2 Delivery O2 Flow Rate FiO2 06/01/25 16:30 99.1 96 16 104/59 (74) 92 210.4 06/01/25 16:00 Mechanical Ventilator+ 30 30 Total Intake and Output 05/31/25 05/31/25 06/01/25 15:00 23:00 07:00 Intake Total 504 ml 272.5 ml 432.625 ml Output Total 3050 ml 100 ml Balance 504 ml -2777.5 ml 332.625 ml medications Current Medications Medications Dose Ordered Sig/Bandar Route Start Time Stop Time Status Last Admin Dose Admin Acetaminophen 650 mg Q6HP PRN PO 05/04/25 15:00 Clopidogrel Bisulfate 75 mg DAILY PO 05/07/25 10:00 06/01/25 15:01 75 MG Atorvastatin Calcium 40 mg HS PO 05/17/25 22:00 Hold 05/20/25 22:20 40 MG Sodium Chloride 10 ml QSHIFT@10,22 IV 05/19/25 22:00 06/01/25 10:00 10 ML Norepinephrine Bitartrate 32 mg/ Sodium Chloride 250 ml @ 0.938 mls/ hr Q24H IV 05/21/25 01:00 05/31/25 21:05 2.813 MLS/HR Pantoprazole Sodium 40 mg DAILY IV 05/21/25 10:00 06/01/25 15:00 40 MG Artificial Tears 1 drop Q6HP PRN EACHEYE 05/21/25 05:00 06/01/25 15:10 1 DROP Diagnostic Test (Pha) 1 strip Q6HR 05/23/25 00:00 06/01/25 15:00 1 STRIP Insulin Human Regular FOLLOW SLIDING SCALE Q6HR SC 05/23/25 00:00 06/01/25 06:27 2 UNITS Dextrose 50 ml UD IV 05/22/25 22:00 05/24/25 11:36 50 ML Fentanyl Citrate 250 ml @ 2.5 mls/hr Q24H IV 05/23/25 14:00 05/31/25 18:02 2.5 MLS/HR Albumin Human 100 ml @ 100 mls/hr PRN PRN IV 05/24/25 06:45 06/01/25 12:15 100 MLS/HR Enteral Nutritional Formula 1,000 ml 50ML/HR GT 05/24/25 17:30 05/31/25 17:13 1,000 ML Folic Acid 1 mg DAILY PO 05/25/25 10:00 06/01/25 15:00 1 MG Multivitamins 1 tab DAILY PO 05/25/25 10:00 06/01/25 15:00 1 TAB Cyanocobalamin 1,000 mcg DAILY PO 05/25/25 10:00 06/01/25 15:00 1,000 MCG Pyridoxine HCl 50 mg DAILY PO 05/25/25 10:00 06/01/25 15:28 50 MG Ondansetron HCl 4 mg Q4HPRN PRN IV 05/25/25 18:00 Ciprofloxacin 200 ml @ 200 mls/hr Q12HR IV 05/26/25 22:00 06/01/25 15:00 200 MLS/HR Micafungin Sodium 100 mg/Sodium Chloride 100 ml @ 100 mls/hr DAILY IV 05/28/25 10:00 06/01/25 16:10 100 MLS/HR Lactulose 30 ml BID GT 05/28/25 10:00 05/30/25 09:57 30 ML Trimethoprim/ Sulfamethoxazole 0 ml @ 0 mls/hr PER PHARMACY IV 05/28/25 09:45 Trimethoprim/ Sulfamethoxazole 10 ml/Dextrose 260 ml @ 173.333 mls/hr Q12HR IV 05/28/25 22:00 05/31/25 22:02 173.333 MLS/HR Amiodarone HCl 200 mg Q12HR GT 05/29/25 10:00 06/01/25 09:29 200 MG laboratory and microbiology Laboratory Tests 06/01/25 03:40 06/01/25 02:30 Test 06/01/25 02:30 Range/Units Serum Glucose 158 H 74-106 mg/dL Microbiology Date/Time Source Procedure Growth Status 05/27/25 15:55 Sputum Gram Stain - Final Complete 05/27/25 15:55 Respiratory Culture - Final Stenotrophomonas maltophilia Complete 05/20/25 18:09 Nose MRSA Screen - Final Complete 05/20/25 01:02 Urine - [place]ung [place] Urine Culture - Final Yeast, not Dulce albicans Complete 05/19/25 08:14 Blood Blood Culture - Final NO GROWTH AFTER 5 DAYS OF INCUBATION. Complete Problem List/Assessment/Plan Problem List/Assessment/Plan Assessment Critical, complex multi-organ failure patient. 1. Severe Sepsis / Pneumonia due to MDR organisms (Stenotrophomonas, Pseudomonas, Enterobacter). On broad antimicrobials (Ciprofloxacin, TMP-SMX, Micafungin). 2. Acute hypoxemic respiratory failure intubated (Day 7), ventilator- dependent. 3. AD on CKD Stage IV on HD, anuric, currently trial of Lasix drip for edema. 4. Volume overload / Edema due to oligoanuria and CHF. 5. Atrial fibrillation previously on amiodarone drip; now rate-controlled. 6. CHF / NSTEMI stable, compensated. 7. PAD with Left foot gangrene s/p BKA stable surgical site. 8. Thrombocytopenia & Anemia likely multifactorial (sepsis, critical illness, marrow suppression, renal disease). Received platelets. 9. Metabolic encephalopathy improving; patient follows commands. 10. History of DVT prophylaxis complicated by thrombocytopenia. 11. Poor prognosis given multi-organ dysfunction, infections, dialysis- dependence. Plan ) Acute hypoxic respiratory failure requiring invasive mechanical ventilation (RETIREMENT) * Status: Stable oxygenation on FiO? 30%; planned CPAP/SBT after HD. * Plan: * Continue daily SAT/SBT; proceed to extubation when criteria met (SpO? > 92% on FiO? ?40%, PEEP ?5, RSBI <105, adequate mentation/cough/secretions). * VAP bundle: HOB 3045, oral care q4h (chlorhexidine), suction protocol, sedation minimized. * CXR in AM x 23 days, ABG PRN. * Diuresis/UF to reduce pulmonary edema . 2) Sepsis with acute organ dysfunction (respiratory failure, AD) due to polymicrobial pneumonia shock * Status: Afebrile, WBC 7.2; sputum grew Stenotrophomonas, Pseudomonas, Enterobacter; blood cultures no growth. * Plan: Continue current anti-pseudomonal coverage and TMP-SMX for Steno (renal- dosed) micafungin pending ID stewardship review; de-escalate per sensitivities and clinical course. 3) AD on CKD IV with oligo-/anuria hemodialysis today * Plan: * HD today per nephrology with UF to net negative as tolerated; * Strict I/O, daily weights, BMP/Mg/Phos post-HD and [id number] thereafter; replete K >4.0, Mg >2.0. * Avoid nephrotoxins; renal-dose all meds. * 4) Volume overload / bilateral pleural effusions (due to renal failure and HF) * Status: Persist on CXR; clinically stable. * Plan: UF with HD; consider cautious loop diuretic trial only if urine output recovers. Monitor work of breathing and CXR. * 5) Severe thrombocytopenia (Plt 36 K/L, improving from 25 K) & anemia (Hgb 7.7, ABG Hgb ~6.7) * Plan: * Transfuse PRBC if Hgb <7 g/dL or symptomatic/ischemia. * Platelet transfusion if <10 K, or <2030 K with bleeding/procedure. * Hold pharmacologic DVT prophylaxis; use SCDs only until Plt ?50 K. * Daily CBC; review meds for contributors (e.g., linezolid/heparin). * Coordinate with Cardiology about holding clopidogrel/antiplatelet while Plt <50 K if no very recent PCI. * 6) Atrial fibrillationrate controlled; prolonged QTc previously * Plan: Continue amiodarone with daily EKG while on therapy; maintain electrolytes (K>4, Mg>2); avoid QT-prolonging agents. Telemetry monitoring. * 7) Chronic diastolic heart failure / cardiomegaly * Plan: Volume optimization with HD; maintain MAP ?65 while weaning norepinephrine; reassess need for vasopressor each shift. * 8) Type 2 diabetes / critical illness hyperglycemia * Plan: ICU insulin sliding scale; target 615061 mg/dL; POC glucose q6h while on tube feeds. * 9) Nutrition / GI / Eye care * Plan: Continue trickle tube feeds; check gastric residuals q46h (hold/adjust per protocol). Lactulose discontinued; continue PPI for stress-ulcer prophylaxis; maintain bowel regimen PRN. Artificial tears q4h while intubated. * 10) PAD s/p left BKA (05/20) * Plan: Daily stump checks; pressure-injury prevention; PT/OT when feasible. * 11) Prophylaxis & Bundles * DVT: Mechanical only given thrombocytopenia. * GI: Pantoprazole IV daily. * Lines: Daily review; change Leung if indicated. Case discussed in detail with the attending physician, including the clinical presentation, diagnostic workup, and comprehensive management plan. The duration of time spent in direct critical care management of this patient, including evaluation, review of clinical data, coordination of care, and decision-making, was 45 minutes. Plan discussed with: Other (RN) My Orders My Orders Orders - FABRICIO CALVIN RESIDENT Procedure Category Date Status Time Cpap Trial For Am ORDERS 06/01/25 Transmitted 11:03 Cpap Trial For Am ORDERS 06/02/25 Transmitted 07:00 Dietary Evaluation Review Comments: 1) Advance to [facility] 75gm + cardiac diet 2) Armen 1 pk BID, MVI w/ minerals 1 tab daily, VitC 500mg BID, Zinc sulfate 220mg BID x 10 days 3) Monitor NPO status, lab values, weight trend, and I/O Expected Outcomes/Goals: To meet >75% estimated needs Wound to improve Fu 2-3 days Date of Service: Jun 01, 2025 Billing Provider: LAUREN MA MD Common Visit Codes: [id number] CARE 30-74 MIN FABRICIO CALVIN RESIDENT Jun 01, 2025 16:39 LAUREN MA MD Jun 08, 2025 22:20
--- NOTE | 2025-06-01 23:44 | DVHPN2 ---
Subjective DOS: 06/01/2025 Patient seen and examined at bedside. Intubated on mechanical ventilator. Overnight events reviewed. Reviewed: Care Plan, H&P, Labs, Medications, Previous Orders Changes from previous H/P or p: No Changes General: Per HPI Objective Vitals Vital Signs Date Time Temp Pulse Resp B/P (MAP) Pulse Ox O2 Delivery O2 Flow Rate FiO2 06/01/25 23:16 99.5 87 19 109/53 (71) 98 211.1 06/01/25 22:14 30 06/01/25 20:00 Mechanical Ventilator+ Intake/Output Intake and Output 06/01/25 07:00 Intake Total 1209.125 ml Output Total 3150 ml Balance -1940.875 ml Intake Oral 120 ml IV Total 947.125 ml Tube Feeding 142 ml Output Urine Total 130 ml Stool Total 20 ml Other 3000 ml General Appearance: Other (Encephalopathic) HEENT: Atraumatic, PERRLA Lungs: Other (On vent. Transmitted breath sounds bilaterally. Decreased air entry bilaterally. No wheezing. Bibasilar crackles.) Cardiovascular: Normal S1, Normal S2, Other (Atrial fibrillation) Abdomen: Normal bowel sounds, Soft, No tenderness, No hepatospenomegaly Genitourinary: No Apparent Abnormalities (Leung catheter) Musculoskeletal: Other (Unable to assess) Extremities: Normal pulses, Other (Left BKA) Neuro: Other (Unable to assess) Skin: Wounds (See nurse notes and pictures) Psych/Mental Status: Other (Unable to assess) Medications Current Medications Medications Dose Ordered Sig/Bandar Route Start Time Stop Time Status Last Admin Dose Admin Acetaminophen 650 mg Q6HP PRN PO 05/04/25 15:00 Clopidogrel Bisulfate 75 mg DAILY PO 05/07/25 10:00 06/01/25 15:01 75 MG Atorvastatin Calcium 40 mg HS PO 05/17/25 22:00 Hold 05/20/25 22:20 40 MG Sodium Chloride 10 ml QSHIFT@10,22 IV 05/19/25 22:00 06/01/25 22:00 10 ML Norepinephrine Bitartrate 32 mg/ Sodium Chloride 250 ml @ 0.938 mls/ hr Q24H IV 05/21/25 01:00 05/31/25 21:05 2.813 MLS/HR Pantoprazole Sodium 40 mg DAILY IV 05/21/25 10:00 06/01/25 15:00 40 MG Artificial Tears 1 drop Q6HP PRN EACHEYE 05/21/25 05:00 06/01/25 15:10 1 DROP Diagnostic Test (Pha) 1 strip Q6HR 05/23/25 00:00 06/01/25 18:00 1 STRIP Insulin Human Regular FOLLOW SLIDING SCALE Q6HR SC 05/23/25 00:00 06/01/25 18:03 4 UNITS Dextrose 50 ml UD IV 05/22/25 22:00 05/24/25 11:36 50 ML Fentanyl Citrate 250 ml @ 2.5 mls/hr Q24H IV 05/23/25 14:00 05/31/25 18:02 2.5 MLS/HR Albumin Human 100 ml @ 100 mls/hr PRN PRN IV 05/24/25 06:45 06/01/25 12:15 100 MLS/HR Enteral Nutritional Formula 1,000 ml 50ML/HR GT 05/24/25 17:30 05/31/25 17:13 1,000 ML Folic Acid 1 mg DAILY PO 05/25/25 10:00 06/01/25 15:00 1 MG Multivitamins 1 tab DAILY PO 05/25/25 10:00 06/01/25 15:00 1 TAB Cyanocobalamin 1,000 mcg DAILY PO 05/25/25 10:00 06/01/25 15:00 1,000 MCG Pyridoxine HCl 50 mg DAILY PO 05/25/25 10:00 06/01/25 15:28 50 MG Ondansetron HCl 4 mg Q4HPRN PRN IV 05/25/25 18:00 Ciprofloxacin 200 ml @ 200 mls/hr Q12HR IV 05/26/25 22:00 06/01/25 22:00 200 MLS/HR Micafungin Sodium 100 mg/Sodium Chloride 100 ml @ 100 mls/hr DAILY IV 05/28/25 10:00 06/01/25 16:10 100 MLS/HR Lactulose 30 ml BID GT 05/28/25 10:00 05/30/25 09:57 30 ML Trimethoprim/ Sulfamethoxazole 0 ml @ 0 mls/hr PER PHARMACY IV 05/28/25 09:45 Trimethoprim/ Sulfamethoxazole 10 ml/Dextrose 260 ml @ 173.333 mls/hr Q12HR IV 05/28/25 22:00 06/01/25 22:00 173.333 MLS/HR Amiodarone HCl 200 mg Q12HR GT 05/29/25 10:00 06/01/25 22:00 200 MG Laboratory Results Laboratory Tests 06/01/25 02:30 06/01/25 03:40 Chemistry Test 06/01/25 02:30 Albumin 3.7 g/dL (3.2-4.8) Calcium Level 8.9 mg/dL (8.7-10.4) Magnesium Level 2.3 mg/dL (1.6-2.6) Phosphorus Level 2.4 mg/dL (2.4-5.1) Total Protein 5.4 g/dL (5.7-8.2) L LFT Test 06/01/25 02:30 Alanine Aminotransferase (ALT) 26 U/L (7-40) Alkaline Phosphatase 109 U/L (46-116) Aspartate Amino Transferase (AST) 13 U/L (13-40) Total Bilirubin 0.9 mg/dL (0.2-1.0) Urinalysis Test 05/16/25 15:18 05/20/25 01:02 Urine Hyaline Casts Few /lpf (0 - 2) Urine Mucus Few (None Seen) Urine Yeast (Budding) Many /hpf (None Seen) Urine Osmolality 359 mOsm/kg Urine Creatinine 122.44 mg/dL (30.0-125.0) Urine Protein/Creatinine Ratio 1.06 Urine Sodium 17 mmol/L (40-220) L Urine Total Protein 130.0 mg/dL (1-14) H Urine Color Dark yellow (Yellow) Urine Clarity Ex.turbid (Clear) Urine pH 5.5 (5.0-9.0) Urine Specific [place] 1.013 (1.001-1.035) Urine Protein 1+ (Negative) H Urine Ketones Negative (Negative) Urine Blood 1+ /uL (Negative) H Urine Nitrite Negative (Negative) Urine Bilirubin Negative (Negative) Urine Urobilinogen Normal mg/dL (Negative) Urine Leukocyte Esterase 3+ /uL (Negative) Urine RBC 62 /hpf (0 - 3) Urine WBC Clumps Present /hpf (None Seen) Urine Microscopic WBC 2744 /HPF (0-3) H Urine Squamous Epithelial Cells None seen /hpf (<5) Urine Bacteria None seen /hpf (None Seen) Urine Glucose Normal mg/dL (Normal) Blood Gas Results Test 06/01/25 07:14 Arterial Blood pH 7.456 (7.350-7.450) FiO2 % 35.0 Microbiology Microbiology Date/Time Source Procedure Growth Status 05/27/25 15:55 Sputum Gram Stain - Final Complete 05/27/25 15:55 Respiratory Culture - Final Stenotrophomonas maltophilia Complete 05/20/25 18:09 Nose MRSA Screen - Final Complete 05/20/25 01:02 Urine - [place] Urine Culture - Final Yeast, not Dulce albicans Complete 05/19/25 08:14 Blood Blood Culture - Final NO GROWTH AFTER 5 DAYS OF INCUBATION. Complete Assessment/Plan Assessment/Plan Impression: Acute hypoxic respiratory failure On mechanical ventilator Severe sepsis Atrial fibrillation with RVR, rate controlled now Pancytopenia Left lower extremity gangrene with severe peripheral arterial disease Status post left [id number] amputation Acute kidney injury secondary to vasomotor nephropathy On hemodialysis Pneumonia secondary to stenotrophomonas maltophilia, Pseudomonas aeruginosa Complicated cystitis with the use Metabolic encephalopathy Coronary artery disease Thrombocytopenia Events: Remains on vent support AC mode: Respiratory rate 16, tidal volume 400, PEEP of 5, FiO2 of 30%. Taper Fio2 as tolerated CXR image and report reviewed. Bibasilar opacities. Bilateral pleural effusions and atelectasis. ET tube in place. ABG reviewed. Alkalemia Continue antibiotics, antifungals Hemodialysis per Nephrology - HD today Monitor renal function Monitor electrolytes. Supplement as necessary. Potassium supplementation Monitor ins and outs Nephrology recs appreciated. Pressors for hemodynamic support. On Levophed 6 mcg/min Titrate to keep MAP above 65 mmHg/SBP above 90 mmHg. Monitor hemoglobin - 7.7 g/dL Monitor platelets - 36 K. Pt tolerated CPAP today for 2 hours Awaiting for mentation to improve. Labs and imaging reviewed. Rest of plan as noted below. Plan: s/p intubation on mechanical ventilator Vent: Respiratory rate 16, tidal volume 400, PEEP of 5, FiO2 of 30%. Titrate FIO2 to keep O2 saturation above 92%. VAP bundle Daily ABG and CXR while intubated. Pressors as necessary for hemodynamic support. Titrate to keep MAP above 65 mmHg/SBP above 90 mmHg. Continue antibiotics and antifungals. F/u cultures. Repeat sputum culture notable for Gram-negative rods. On amiodarone PO. Monitor platelets. Monitor hgb. Monitor renal function due to Acute kidney injury. Monitor electrolytes. Supplement as necessary. Monitor ins and outs HD per Nephrology Nutritional support. Accucheks, ISS. GI/DVT prophylaxis. Condition: Critical Prognosis: Poor given multiple comorbidities. Rest of plan per hospitalist and other consultants. A total of 35 minutes of critical care time was spent reviewing the patient record, examining the patient, making a diagnostic and therapeutic plan, discussing this plan with the medical personnel, following up on diagnostic studies and following the patient for clinical stability excluding any and all procedures. At least 50% of this time was spent in direct, [id number] contact. Thank you for allowing me to participate in this patient's care. Further recommendations will depend on patient's clinical course. Please do not hesitate to contact me if you have any questions or concerns. This medical document was created using an electronic medical record system with [employer] dictation system. Although this document has been carefully reviewed, there may still be some phonetic and typographical errors. These areas are purely typographical due to imperfections of the software programs, and do not reflect any compromise in the patient's medical care. Plan discussed with: Other (AIME Jorge) Date of Service: Jun 01, 2025 Billing Provider: SHALINI BENITES MD Common Visit Codes: [id number] INP/OBS CARE(HIGH), [id number] CARE 30-74 MIN SHALINI BENITES MD Jun 01, 2025 23:43
[2025-06-02] VITALS (102 sets, daily range): BP systolic 84–128; BP diastolic 40–74; PULSE 68–127; RESP 12–23; TEMP 93.7–99.3; O2SAT 90–100
[2025-06-02 04:58] LABS: Alanine Aminotransferase 23 U/L (7-40); Anion Gap 14 (5-15); BUN/Creatinine Ratio 7.1 (10.0-20.0); Blood Urea Nitrogen 16 mg/dL (9-23); Calcium 9.2 mg/dL (8.7-10.4); Carbon Dioxide 26 mmol/L (20-31); Potassium 4.7 mmol/L (3.5-5.1); Sodium 137 mmol/L (136-145)
[2025-06-02 04:59] LABS: Magnesium 2.4 mg/dL (1.6-2.6); Total Protein 6.1 g/dL (5.7-8.2)
[2025-06-02 05:00] LABS: Albumin 4.2 g/dL (3.2-4.8)
[2025-06-02 05:01] LABS: Alkaline Phosphatase 123 U/L (46-116); Bilirubin, Total 1.3 mg/dL (0.2-1.0); Chloride 97 mmol/L (98-107); Glucose 180 mg/dL (74-106)
--- NOTE | 2025-06-02 05:16 | DVH ---
CHEST RADIOGRAPH Indication: ET intubation Technique: Single frontal view of the chest was obtained COMPARISON: XY CHEST XRAY 1 VIEW on DOS: 06/01/25, XY CHEST XRAY 1 VIEW on DOS: 05/31/25, XY CHEST XRAY 1 VIEW on DOS: 05/30/25, XY CHEST PORTABLE on DOS: 05/29/25, XY CHEST XRAY 1 VIEW on DOS: 05/28/25 FINDINGS: Lines and Tubes: Endotracheal tube, enteric catheter, left PICC and right central venous catheter in satisfactory position. Lungs: Diffuse pulmonary vascular congestion. Pleura: No effusion.No pneumothorax. Cardiomediastinal contours: Unchanged cardiomegaly. Bones: Unremarkable. IMPRESSION: Lines and tubes in satisfactory position. No significant interval change.
[2025-06-02 06:48] LABS: Base Excess 3.1 mmol/L (-2.0-3.0)
[2025-06-02 08:29] LABS: Hematocrit 23.3 % (41.0-53.0); Hemoglobin 7.9 g/dL (13.5-17.5); Mean Corpuscular Hemoglobin 32.5 pg (28.0-32.0); Mean Corpuscular Volume 96.1 fL (80.0-100.0); Nucleated Red Blood Cells % 0.5 %
[2025-06-02 13:14] LABS: Base Excess 2.9 mmol/L (-2.0-3.0)
--- NOTE | 2025-06-02 13:29 | DVHPNRES ---
Progress Note Date Seen: Jun 02, 2025 Resident Creating Document: FABRICIO CALVIN RESIDENT Has the PT tested + for MRSA If YES, has PT been informed?: No Medical Necessity Reason Pt with a Central, PICC or Fol: Yes The following are medically ne: PICC Line, Leung Catheter Subjective Review of Systems * Patient underwent hemodialysis today with tolerated ultrafiltration. * Successfully extubated post-dialysis ? now on overnight BiPAP for ventilatory support. * Hemodynamics stable: BP 110/54, HR stable in 70s. * Oxygenation: SpO? 98% on cool aerosol * Renal function: Creatinine 2.24 mg/dL, GFR 30 mL/min. * Hematology: Hemoglobin 7.9 g/dL (improved from 7.7), Hct 22.4%, Platelets stable 36 K. * WBC: 8.9 K ? no leukocytosis. * No new fevers, no bleeding events, patient more interactive, tolerated extubation well. * Plan: continue close monitoring of respiratory effort, hemodynamics, and volume status. * Neuro: Awake, follows commands, communicates by writing/nodding. * Resp: On aerosol, breathing comfortable, no acute distress. * GI: Tolerating tube feeds; no nausea/vomiting. * : Oligo-anuric, dependent on HD. * Skin/Ext: Mild edema persists; left BKA stump intact. * Infectious: No fever or chills. Objective vital signs Vital Sign Date Time Temp Pulse Resp B/P (MAP) Pulse Ox O2 Delivery O2 Flow Rate FiO2 06/02/25 12:30 97.5 78 14 116/58 (77) 100 207.5 06/02/25 12:00 30 06/02/25 12:00 Mechanical Ventilator+ Total Intake and Output 06/01/25 06/01/25 06/02/25 15:00 23:00 07:00 Intake Total 20.000 ml 1015.837 ml 180.504 ml Output Total 2040 ml 45 ml Balance 20.000 ml -1024.163 ml 135.504 ml medications Current Medications Medications Dose Ordered Sig/Bandar Route Start Time Stop Time Status Last Admin Dose Admin Acetaminophen 650 mg Q6HP PRN PO 05/04/25 15:00 Clopidogrel Bisulfate 75 mg DAILY PO 05/07/25 10:00 06/02/25 11:36 75 MG Atorvastatin Calcium 40 mg HS PO 05/17/25 22:00 Hold 05/20/25 22:20 40 MG Sodium Chloride 10 ml QSHIFT@10,22 IV 05/19/25 22:00 06/02/25 11:37 10 ML Norepinephrine Bitartrate 32 mg/ Sodium Chloride 250 ml @ 0.938 mls/ hr Q24H IV 05/21/25 01:00 06/02/25 12:00 1.875 MLS/HR Pantoprazole Sodium 40 mg DAILY IV 05/21/25 10:00 06/02/25 11:34 40 MG Artificial Tears 1 drop Q6HP PRN EACHEYE 05/21/25 05:00 06/02/25 11:37 1 DROP Diagnostic Test (Pha) 1 strip Q6HR 05/23/25 00:00 06/02/25 12:06 1 STRIP Insulin Human Regular FOLLOW SLIDING SCALE Q6HR SC 05/23/25 00:00 06/02/25 06:00 4 UNITS Dextrose 50 ml UD IV 05/22/25 22:00 05/24/25 11:36 50 ML Fentanyl Citrate 250 ml @ 2.5 mls/hr Q24H IV 05/23/25 14:00 06/02/25 08:07 2.5 MLS/HR Albumin Human 100 ml @ 100 mls/hr PRN PRN IV 05/24/25 06:45 06/01/25 12:15 100 MLS/HR Enteral Nutritional Formula 1,000 ml 50ML/HR GT 05/24/25 17:30 05/31/25 17:13 1,000 ML Folic Acid 1 mg DAILY PO 05/25/25 10:00 06/02/25 11:35 1 MG Multivitamins 1 tab DAILY PO 05/25/25 10:00 06/02/25 11:36 1 TAB Cyanocobalamin 1,000 mcg DAILY PO 05/25/25 10:00 06/02/25 11:35 1,000 MCG Pyridoxine HCl 50 mg DAILY PO 05/25/25 10:00 06/02/25 11:37 50 MG Ondansetron HCl 4 mg Q4HPRN PRN IV 05/25/25 18:00 Ciprofloxacin 200 ml @ 200 mls/hr Q12HR IV 05/26/25 22:00 06/02/25 11:37 200 MLS/HR Micafungin Sodium 100 mg/Sodium Chloride 100 ml @ 100 mls/hr DAILY IV 05/28/25 10:00 06/02/25 12:47 100 MLS/HR Lactulose 30 ml BID GT 05/28/25 10:00 05/30/25 09:57 30 ML Trimethoprim/ Sulfamethoxazole 0 ml @ 0 mls/hr PER PHARMACY IV 05/28/25 09:45 Trimethoprim/ Sulfamethoxazole 10 ml/Dextrose 260 ml @ 173.333 mls/hr Q12HR IV 05/28/25 22:00 06/01/25 22:00 173.333 MLS/HR Amiodarone HCl 200 mg Q12HR GT 05/29/25 10:00 06/02/25 11:35 200 MG Examination * Gen: Awake, extubated, on BiPAP, no acute distress. * HEENT: BiPAP mask in place; mucosa moist. * CV: Regular rhythm, stable rate, no murmurs. * Resp: Bilateral breath sounds, slightly coarse at bases; no increased WOB. * Abd: Soft, non-tender, GT present. * Ext: +1 edema; left BKA stump intact. * Neuro: Alert, follows commands, no focal deficits. * Skin/Lines: Picc line,Leung in place; clean insertion sites. laboratory and microbiology Laboratory Tests 06/02/25 08:15 06/02/25 02:56 Test 06/02/25 02:56 Range/Units Serum Glucose 180 H 74-106 mg/dL Microbiology Date/Time Source Procedure Growth Status 05/27/25 15:55 Sputum Gram Stain - Final Complete 05/27/25 15:55 Respiratory Culture - Final Stenotrophomonas maltophilia Complete 05/20/25 18:09 Nose MRSA Screen - Final Complete 05/20/25 01:02 Urine - Leung Port Urine Culture - Final Yeast, not Dulce albicans Complete 05/19/25 08:14 Blood Blood Culture - Final NO GROWTH AFTER 5 DAYS OF INCUBATION. Complete Problem List/Assessment/Plan Problem List/Assessment/Plan Assessment Critical, complex multi-organ failure patient. 1. Severe Sepsis / Pneumonia due to MDR organisms (Stenotrophomonas, Pseudomonas, Enterobacter). On broad antimicrobials (Ciprofloxacin, TMP-SMX, Micafungin). 2. Acute hypoxemic respiratory failure intubated (Day 7), ventilator- dependent. 3. AD on CKD Stage IV on HD, anuric, currently trial of Lasix drip for edema. 4. Volume overload / Edema due to oligoanuria and CHF. 5. Atrial fibrillation previously on amiodarone drip; now rate-controlled. 6. CHF / NSTEMI stable, compensated. 7. PAD with Left foot gangrene s/p BKA stable surgical site. 8. Thrombocytopenia & Anemia likely multifactorial (sepsis, critical illness, marrow suppression, renal disease). Received platelets. 9. Metabolic encephalopathy improving; patient follows commands. 10. History of DVT prophylaxis complicated by thrombocytopenia. 11. Poor prognosis given multi-organ dysfunction, infections, dialysis- dependence. Plan Assessment & Plan 1) Acute hypoxic respiratory failure improving, now extubated * Status: Extubated, on BiPAP with FiO? 30%, SpO? 100%. * Plan: * Continue BiPAP overnight with weaning trials to NC during daytime. * Monitor ABG in AM to assess gas exchange post-extubation. * Maintain pulmonary hygiene, incentive spirometry, RT support. * Monitor for re-intubation criteria (SpO? <90%, severe WOB, hypercapnia). 2) Sepsis secondary to multidrug-resistant pneumonia * Status: Afebrile, WBC 8.9. * Plan: Continue targeted antimicrobials (TMP-SMX, ciprofloxacin, micafungin) with renal dose adjustment. * ID stewardship follow-up for narrowing duration and necessity. * Daily CBC, monitor for recurrent fevers/leukocytosis. 3) AD on CKD IV, HD dependent/VMN * Status: HD performed today; Cr 2.24, GFR 30; anuric. * Plan: * Continue intermittent HD per nephrology. * Daily BMP, Mg, Phos; strict I/O, daily weights. * Avoid nephrotoxins; adjust med doses. 4) Anemia and thrombocytopenia * Status: Hgb 7.9, Plt 36K. * Plan: * Transfuse PRBC if Hgb <7 or symptomatic. * Transfuse platelets <10K or <2030K if bleeding/procedure. * Hold pharmacologic anticoagulation; SCDs only. * Monitor CBC daily. 5) Volume status / Cardiomegaly with effusions * Plan: * Optimize volume status with HD UF. * Wean norepinephrine (Levophed) completely as tolerated; goal MAP ?65. * Daily weights, strict I/O, CXR follow-up. 6) Atrial fibrillation (rate controlled) with history of prolonged QTc * Plan: * Continue enteral amiodarone with daily EKG monitoring. * Replete electrolytes (K >4, Mg >2). * Cardiology follow-up for anticoagulation given thrombocytopenia. 7) DM2 with stress hyperglycemia * Plan: ICU insulin sliding scale; target BG 157305; POC glucose q6h. 8) Nutrition / GI / Supportive care * Continue tube feeds; advance as tolerated post-extubation. * Pantoprazole for PUD prophylaxis. * Artificial tears q4h while on BiPAP. * Leung catheter care; daily need reassessment. 9) Prophylaxis * VAP prevention: no longer intubated. * GI prophylaxis: PPI. * DVT prophylaxis: Mechanical SCDs only until platelets recover. * Skin care: Daily stump/wound checks, pressure prevention. Case discussed in detail with the attending physician, including the clinical presentation, diagnostic workup, and comprehensive management plan. The duration of time spent in direct critical care management of this patient, including evaluation, review of clinical data, coordination of care, and decision-making, was 45 minutes. Plan discussed with: Other My Orders My Orders Orders - FABRICIO CALVIN RESIDENT Procedure Category Date Status Time * Environmental Lead CONS 06/02/25 Transmitted Consult Comprehensive LAB 06/03/25 Verified Metabolic Panel 04:00 Complete Blood Count LAB 06/03/25 Verified 04:00 Dietary Evaluation Review Comments: 1) Advance to [facility] 75gm + cardiac diet 2) Armen 1 pk BID, MVI w/ minerals 1 tab daily, VitC 500mg BID, Zinc sulfate 220mg BID x 10 days 3) Monitor NPO status, lab values, weight trend, and I/O Expected Outcomes/Goals: To meet >75% estimated needs Wound to improve Fu 2-3 days Date of Service: Jun 02, 2025 Billing Provider: LAUREN MA MD Common Visit Codes: [id number] CARE 30-74 MIN FABRICIO CALVIN RESIDENT Jun 02, 2025 13:29 LAUREN MA MD Jun 08, 2025 22:21
--- NOTE | 2025-06-02 14:58 | DVHPN2 ---
Progress Note Date Seen: Jun 02, 2025 Has the PT tested + for MRSA If YES, has PT been informed?: No Medical Necessity Reason Pt with a Central, PICC or Fol: Yes The following are medically ne: Leung Catheter Subjective Changes from previous H/P or p: Changes (extubated) Objective vital signs Vital Sign Date Time Temp Pulse Resp B/P (MAP) Pulse Ox O2 Delivery O2 Flow Rate FiO2 06/02/25 12:30 97.5 78 14 116/58 (77) 100 207.5 06/02/25 12:00 30 06/02/25 12:00 Mechanical Ventilator+ Total Intake and Output 06/01/25 06/01/25 06/02/25 15:00 23:00 07:00 Intake Total 20.000 ml 1015.837 ml 180.504 ml Output Total 2040 ml 45 ml Balance 20.000 ml -1024.163 ml 135.504 ml medications Current Medications Medications Dose Ordered Sig/Bandar Route Start Time Stop Time Status Last Admin Dose Admin Acetaminophen 650 mg Q6HP PRN PO 05/04/25 15:00 Clopidogrel Bisulfate 75 mg DAILY PO 05/07/25 10:00 06/02/25 11:36 75 MG Atorvastatin Calcium 40 mg HS PO 05/17/25 22:00 Hold 05/20/25 22:20 40 MG Sodium Chloride 10 ml QSHIFT@10,22 IV 05/19/25 22:00 06/02/25 11:37 10 ML Norepinephrine Bitartrate 32 mg/ Sodium Chloride 250 ml @ 0.938 mls/ hr Q24H IV 05/21/25 01:00 06/02/25 12:00 1.875 MLS/HR Pantoprazole Sodium 40 mg DAILY IV 05/21/25 10:00 06/02/25 11:34 40 MG Artificial Tears 1 drop Q6HP PRN EACHEYE 05/21/25 05:00 06/02/25 11:37 1 DROP Diagnostic Test (Pha) 1 strip Q6HR 05/23/25 00:00 06/02/25 12:06 1 STRIP Insulin Human Regular FOLLOW SLIDING SCALE Q6HR SC 05/23/25 00:00 06/02/25 06:00 4 UNITS Dextrose 50 ml UD IV 05/22/25 22:00 05/24/25 11:36 50 ML Fentanyl Citrate 250 ml @ 2.5 mls/hr Q24H IV 05/23/25 14:00 06/02/25 08:07 2.5 MLS/HR Albumin Human 100 ml @ 100 mls/hr PRN PRN IV 05/24/25 06:45 06/01/25 12:15 100 MLS/HR Enteral Nutritional Formula 1,000 ml 50ML/HR GT 05/24/25 17:30 05/31/25 17:13 1,000 ML Folic Acid 1 mg DAILY PO 05/25/25 10:00 06/02/25 11:35 1 MG Multivitamins 1 tab DAILY PO 05/25/25 10:00 06/02/25 11:36 1 TAB Cyanocobalamin 1,000 mcg DAILY PO 05/25/25 10:00 06/02/25 11:35 1,000 MCG Pyridoxine HCl 50 mg DAILY PO 05/25/25 10:00 06/02/25 11:37 50 MG Ondansetron HCl 4 mg Q4HPRN PRN IV 05/25/25 18:00 Ciprofloxacin 200 ml @ 200 mls/hr Q12HR IV 05/26/25 22:00 06/02/25 11:37 200 MLS/HR Micafungin Sodium 100 mg/Sodium Chloride 100 ml @ 100 mls/hr DAILY IV 05/28/25 10:00 06/02/25 12:47 100 MLS/HR Lactulose 30 ml BID GT 05/28/25 10:00 05/30/25 09:57 30 ML Trimethoprim/ Sulfamethoxazole 0 ml @ 0 mls/hr PER PHARMACY IV 05/28/25 09:45 Trimethoprim/ Sulfamethoxazole 10 ml/Dextrose 260 ml @ 173.333 mls/hr Q12HR IV 05/28/25 22:00 06/02/25 14:15 173.333 MLS/HR Amiodarone HCl 200 mg Q12HR GT 05/29/25 10:00 06/02/25 11:35 200 MG laboratory and microbiology Laboratory Tests 06/02/25 08:15 06/02/25 02:56 Test 06/02/25 02:56 Range/Units Serum Glucose 180 H 74-106 mg/dL Microbiology Date/Time Source Procedure Growth Status 05/27/25 15:55 Sputum Gram Stain - Final Complete 05/27/25 15:55 Respiratory Culture - Final Stenotrophomonas maltophilia Complete 05/20/25 18:09 Nose MRSA Screen - Final Complete 05/20/25 01:02 Urine - Leung Port Urine Culture - Final Yeast, not Dulce albicans Complete 05/19/25 08:14 Blood Blood Culture - Final NO GROWTH AFTER 5 DAYS OF INCUBATION. Complete Problem List/Assessment/Plan Problem List/Assessment/Plan Acute kidney injury superimposed Chronic Kidney Disease stage IV secondary hemodynamic mediated, FeNa < 1% Chronic kidney disease stage IV followed by Dr. Ponce Gangrene left foot, status post left below-knee amputation 05/20 Left lower extremity DVT Ventilator-dependent hypoxic respiratory failure intubated Diabetes mellitus type 2 Chronic diastolic Congestive heart failure/ NSTEMI Septic shock History of testicular cancer Cellulitis lower extremity thrombocytopenia/ anemia seen on HD this am, now extubated to bipap failed lasix drip will continue HD for ultrafiltration, we will tentatively schedule an additional dialysis treatment tomorrow if stabbing per minutes to continue fluid removal low platelets---no heparin with HD Remains oligo anuric no response to diuretics Epogen 3x a week Guarded prognosis Patient will require longer-term dialysis catheter as renal function has not recovered we will send requisitioned to [facility] dialysis for outpatient chair time Plan discussed with: Patient My Orders My Orders Orders - ALEJANDRO PONCE MD Procedure Category Date Status Time Hemodialysis Orders ORDERS 06/02/25 Transmitted 08:26 Dietary Evaluation Review Comments: 1) Advance to [facility] 75gm + cardiac diet 2) Armen 1 pk BID, MVI w/ minerals 1 tab daily, VitC 500mg BID, Zinc sulfate 220mg BID x 10 days 3) Monitor NPO status, lab values, weight trend, and I/O Expected Outcomes/Goals: To meet >75% estimated needs Wound to improve Fu 2-3 days Critical Care Time (mins): 33 ALEJANDRO PONCE MD Jun 02, 2025 14:57
[2025-06-02] MEDS ORDERED: CLOPIDOGREL BISULFATE 75 MG TAB NG SCH (18:30)
--- NOTE | 2025-06-02 23:18 | DVHPN2 ---
Subjective DOS: 06/02/2025 Patient seen and examined at bedside. S/p extubation, on supplemental oxygen Overnight events reviewed Reviewed: Care Plan, H&P, Labs, Medications, Previous Orders Changes from previous H/P or p: Changes General: Per HPI Objective Vitals Vital Signs Date Time Temp Pulse Resp B/P (MAP) Pulse Ox O2 Delivery O2 Flow Rate FiO2 06/02/25 23:00 98.8 118 18 114/56 (75) 97 98.8 06/02/25 22:10 Nasal Cannula 3.0 06/02/25 22:10 32 Intake/Output Intake and Output 06/02/25 07:00 Intake Total 1216.341 ml Output Total 2085 ml Balance -868.659 ml Intake Oral 70 ml IV Total 1038.341 ml Tube Feeding 108 ml Output Urine Total 70 ml Stool Total 15 ml Other 2000 ml General Appearance: Other (Encephalopathic) HEENT: Atraumatic, PERRLA Lungs: Clear to auscultation, Other (Decreased air entry bilaterally. No wheezing or rhonchi ) Cardiovascular: Normal S1, Normal S2, Other (Atrial fibrillation) Abdomen: Normal bowel sounds, Soft, No tenderness, No hepatospenomegaly Genitourinary: No Apparent Abnormalities (Leung catheter) Musculoskeletal: Other (Unable to assess) Extremities: Normal pulses, Other (Left BKA) Neuro: Other (Awake, following commands.) Skin: Wounds (See nurse notes and pictures) Psych/Mental Status: Other (Unable to assess) Medications Current Medications Medications Dose Ordered Sig/Bandar Route Start Time Stop Time Status Last Admin Dose Admin Acetaminophen 650 mg Q6HP PRN PO 05/04/25 15:00 Atorvastatin Calcium 40 mg HS PO 05/17/25 22:00 Hold 05/20/25 22:20 40 MG Sodium Chloride 10 ml QSHIFT@10,22 IV 05/19/25 22:00 06/02/25 22:25 10 ML Norepinephrine Bitartrate 32 mg/ Sodium Chloride 250 ml @ 0.938 mls/ hr Q24H IV 05/21/25 01:00 06/02/25 12:00 1.875 MLS/HR Pantoprazole Sodium 40 mg DAILY IV 05/21/25 10:00 06/02/25 11:34 40 MG Artificial Tears 1 drop Q6HP PRN EACHEYE 05/21/25 05:00 06/02/25 22:34 1 DROP Diagnostic Test (Pha) 1 strip Q6HR 05/23/25 00:00 06/02/25 17:13 1 STRIP Insulin Human Regular FOLLOW SLIDING SCALE Q6HR SC 05/23/25 00:00 06/02/25 17:13 4 UNITS Dextrose 50 ml UD IV 05/22/25 22:00 05/24/25 11:36 50 ML Fentanyl Citrate 250 ml @ 2.5 mls/hr Q24H IV 05/23/25 14:00 06/02/25 08:07 2.5 MLS/HR Albumin Human 100 ml @ 100 mls/hr PRN PRN IV 05/24/25 06:45 06/01/25 12:15 100 MLS/HR Enteral Nutritional Formula 1,000 ml 50ML/HR GT 05/24/25 17:30 06/02/25 22:34 1,000 ML Folic Acid 1 mg DAILY PO 05/25/25 10:00 06/02/25 11:35 1 MG Multivitamins 1 tab DAILY PO 05/25/25 10:00 06/02/25 11:36 1 TAB Cyanocobalamin 1,000 mcg DAILY PO 05/25/25 10:00 06/02/25 11:35 1,000 MCG Pyridoxine HCl 50 mg DAILY PO 05/25/25 10:00 06/02/25 11:37 50 MG Ondansetron HCl 4 mg Q4HPRN PRN IV 05/25/25 18:00 Ciprofloxacin 200 ml @ 200 mls/hr Q12HR IV 05/26/25 22:00 06/02/25 22:25 200 MLS/HR Micafungin Sodium 100 mg/Sodium Chloride 100 ml @ 100 mls/hr DAILY IV 05/28/25 10:00 06/02/25 12:47 100 MLS/HR Lactulose 30 ml BID GT 05/28/25 10:00 05/30/25 09:57 30 ML Trimethoprim/ Sulfamethoxazole 0 ml @ 0 mls/hr PER PHARMACY IV 05/28/25 09:45 Trimethoprim/ Sulfamethoxazole 10 ml/Dextrose 260 ml @ 173.333 mls/hr Q12HR IV 05/28/25 22:00 06/02/25 22:26 173.333 MLS/HR Amiodarone HCl 200 mg Q12HR GT 05/29/25 10:00 06/02/25 22:25 200 MG Clopidogrel Bisulfate 75 mg DAILY NG 06/02/25 18:30 Cancel Clopidogrel Bisulfate 75 mg DAILY NG 06/03/25 10:00 Laboratory Results Laboratory Tests 06/02/25 02:56 06/02/25 08:15 Chemistry Test 06/02/25 02:56 Albumin 4.2 g/dL (3.2-4.8) Calcium Level 9.2 mg/dL (8.7-10.4) Magnesium Level 2.4 mg/dL (1.6-2.6) Total Protein 6.1 g/dL (5.7-8.2) LFT Test 06/02/25 02:56 Alanine Aminotransferase (ALT) 23 U/L (7-40) Alkaline Phosphatase 123 U/L (46-116) H Aspartate Amino Transferase (AST) 19 U/L (13-40) Total Bilirubin 1.3 mg/dL (0.2-1.0) H Urinalysis Test 05/16/25 15:18 05/20/25 01:02 Urine Hyaline Casts Few /lpf (0 - 2) Urine Mucus Few (None Seen) Urine Yeast (Budding) Many /hpf (None Seen) Urine Osmolality 359 mOsm/kg Urine Creatinine 122.44 mg/dL (30.0-125.0) Urine Protein/Creatinine Ratio 1.06 Urine Sodium 17 mmol/L (40-220) L Urine Total Protein 130.0 mg/dL (1-14) H Urine Color Dark yellow (Yellow) Urine Clarity Ex.turbid (Clear) Urine pH 5.5 (5.0-9.0) Urine Specific Holcomb 1.013 (1.001-1.035) Urine Protein 1+ (Negative) H Urine Ketones Negative (Negative) Urine Blood 1+ /uL (Negative) H Urine Nitrite Negative (Negative) Urine Bilirubin Negative (Negative) Urine Urobilinogen Normal mg/dL (Negative) Urine Leukocyte Esterase 3+ /uL (Negative) Urine RBC 62 /hpf (0 - 3) Urine WBC Clumps Present /hpf (None Seen) Urine Microscopic WBC 2744 /HPF (0-3) H Urine Squamous Epithelial Cells None seen /hpf (<5) Urine Bacteria None seen /hpf (None Seen) Urine Glucose Normal mg/dL (Normal) Blood Gas Results Test 06/02/25 06:40 06/02/25 13:02 Arterial Blood pH 7.464 (7.350-7.450) 7.540 (7.350-7.450) FiO2 % 30.0 30.0 Microbiology Microbiology Date/Time Source Procedure Growth Status 05/27/25 15:55 Sputum Gram Stain - Final Complete 05/27/25 15:55 Respiratory Culture - Final Stenotrophomonas maltophilia Complete 05/20/25 18:09 Nose MRSA Screen - Final Complete 05/20/25 01:02 Urine - Leung Port Urine Culture - Final Yeast, not Dulce albicans Complete 05/19/25 08:14 Blood Blood Culture - Final NO GROWTH AFTER 5 DAYS OF INCUBATION. Complete Assessment/Plan Assessment/Plan Impression: Acute hypoxic respiratory failure On mechanical ventilator Severe sepsis Atrial fibrillation with RVR, rate controlled now Pancytopenia Left lower extremity gangrene with severe peripheral arterial disease Status post left [id number] amputation Acute kidney injury secondary to vasomotor nephropathy On hemodialysis Pneumonia secondary to stenotrophomonas maltophilia, Pseudomonas aeruginosa Complicated cystitis with the use Metabolic encephalopathy Coronary artery disease Thrombocytopenia Events: Patient awake, following commands. He tolerated CPAP today and was extubated uneventfully Pt was bridged with BiPAP, currently on supplemental oxygen Taper O2 as tolerated CXR shows diffuse pulmonary vascular congestion; cardiomegaly. Continue antibiotics, antifungals Hemodialysis per Nephrology - s/p HD yesterday Monitor renal function Monitor electrolytes. Supplement as necessary. Potassium, magnesium supplementation Monitor ins and outs Nephrology recs appreciated. Pressors for hemodynamic support. On Levophed 6 mcg/min Titrate to keep MAP above 65 mmHg/SBP above 90 mmHg. Monitor hemoglobin - 7.9 g/dL Monitor platelets - 53 K. Labs and imaging reviewed. Rest of plan as noted below. Plan: S/p extubation Continue supplemental oxygen Titrate to keep O2 sats above 90%. Pressors as necessary for hemodynamic support. Titrate to keep MAP above 65 mmHg/SBP above 90 mmHg. Continue antibiotics and antifungals. F/u cultures. Repeat sputum culture notable for Gram-negative rods. On amiodarone PO. Monitor platelets. Monitor hgb. Monitor renal function due to Acute kidney injury. Monitor electrolytes. Supplement as necessary. Monitor ins and outs HD per Nephrology Nutritional support. Accucheks, ISS. GI/DVT prophylaxis. Condition: Critical Prognosis: Poor given multiple comorbidities. Rest of plan per hospitalist and other consultants. A total of 35 minutes of critical care time was spent reviewing the patient record, examining the patient, making a diagnostic and therapeutic plan, discussing this plan with the medical personnel, following up on diagnostic studies and following the patient for clinical stability excluding any and all procedures. At least 50% of this time was spent in direct, [id number] contact. Thank you for allowing me to participate in this patient's care. Further recommendations will depend on patient's clinical course. Please do not hesitate to contact me if you have any questions or concerns. This medical document was created using an electronic medical record system with ilustrum dictation system. Although this document has been carefully reviewed, there may still be some phonetic and typographical errors. These areas are purely typographical due to imperfections of the software programs, and do not reflect any compromise in the patient's medical care. Plan discussed with: Other (AIME Gaston) Date of Service: Jun 02, 2025 Billing Provider: SHALINI BENITES MD Common Visit Codes: [id number] INP/OBS CARE(HIGH), [id number] CARE 30-74 MIN SHALINI BENITES MD Jun 02, 2025 23:18
[2025-06-03] VITALS (103 sets, daily range): BP systolic 91–127; BP diastolic 41–75; PULSE 77–140; RESP 13–32; TEMP 97.2–99; O2SAT 80–100
[2025-06-03 04:11] LABS: Hematocrit 22.0 % (41.0-53.0); Hemoglobin 7.5 g/dL (13.5-17.5); Mean Corpuscular Hemoglobin 32.9 pg (28.0-32.0); Mean Corpuscular Volume 96.5 fL (80.0-100.0); Nucleated Red Blood Cells % 0.1 %
[2025-06-03 04:14] LABS: Alanine Aminotransferase 24 U/L (7-40); Albumin 4.1 g/dL (3.2-4.8); Alkaline Phosphatase 107 U/L (46-116); Anion Gap 14 (5-15); BUN/Creatinine Ratio 7.2 (10.0-20.0); Blood Urea Nitrogen 16 mg/dL (9-23); Calcium 9.4 mg/dL (8.7-10.4); Carbon Dioxide 27 mmol/L (20-31); Magnesium 2.1 mg/dL (1.6-2.6); Sodium 136 mmol/L (136-145); Total Protein 6.2 g/dL (5.7-8.2)
[2025-06-03 04:15] LABS: Bilirubin, Total 1.3 mg/dL (0.2-1.0); Chloride 95 mmol/L (98-107); Glucose 141 mg/dL (74-106); Potassium 3.4 mmol/L (3.5-5.1)
[2025-06-03] MEDS: POTASSIUM CHL 20MEQ/100ML 100 ML IV SCH (05:40)
--- NOTE | 2025-06-03 06:11 | DVH ---
CHEST RADIOGRAPH Indication: post dialysis Technique: Single frontal view of the chest was obtained COMPARISON: XY CHEST XRAY 1 VIEW on DOS: 06/02/25, XY CHEST XRAY 1 VIEW on DOS: 06/01/25, XY CHEST XRAY 1 VIEW on DOS: 05/31/25, XY CHEST XRAY 1 VIEW on DOS: 05/30/25, XY CHEST PORTABLE on DOS: 05/29/25 FINDINGS: Lines and Tubes: Unchanged. Lungs: The patient's lower chin partially obscures the medial biapical regions. Stable appearing bila teral pleural effusions and diffuse increased prominence of the pulmonary vasculature. Pleura: No effusion. No pneumothorax. Cardiomediastinal contours: Cardiomegaly. Bones: Unremarkable IMPRESSION: 1. Stable bilateral pleural effusions and diffuse increased prominence of the pulmonary vasculature. 2. Cardiomegaly. 3. Lines and tubes unchanged.
[2025-06-03] MEDS: SODIUM CHL 0.9% 1000 ML BAG XX ONE (07:00)
--- NOTE | 2025-06-03 07:54 | ECG ---
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
[2025-06-03] MEDS: CLOPIDOGREL BISULFATE 75 MG TAB NG SCH (11:10)
[2025-06-03] MEDS: ACETYLCYSTEINE 20%(200MG/ML) SOL 4ML NEB SCH (13:11)
[2025-06-03] MEDS: ALBUTEROL SULF 2.5 MG/0.5ML(0.5%) NEB SOLN NEB PRN (13:11)
--- NOTE | 2025-06-03 14:34 | DVHPN2 ---
Progress Note - Dictate Date Seen: Jun 03, 2025 Has the PT tested + for MRSA If YES, has PT been informed?: No Medical Necessity Reason Pt with a Central, PICC or Fol: Yes The following are medically ne: PICC Line, Leung Catheter Subjective Patient appeared lethargic this afternoon vital signs Vital Sign Date Time Temp Pulse Resp B/P (MAP) Pulse Ox O2 Delivery O2 Flow Rate FiO2 06/03/25 13:17 91 26 100 06/03/25 13:11 Nasal Cannula 2.0 06/03/25 13:11 28 06/03/25 12:45 98.4 99/52 (68) 209.1 Total Intake and Output 06/02/25 06/02/25 06/03/25 15:00 23:00 07:00 Intake Total 583.127 ml 72.504 ml 564.188 ml Output Total 3010 ml 20 ml Balance 583.127 ml -2937.496 ml 544.188 ml medications Current Medications Medications Dose Ordered Sig/Bandar Route Start Time Stop Time Status Last Admin Dose Admin Acetaminophen 650 mg Q6HP PRN PO 05/04/25 15:00 Atorvastatin Calcium 40 mg HS PO 05/17/25 22:00 Hold 05/20/25 22:20 40 MG Sodium Chloride 10 ml QSHIFT@10,22 IV 05/19/25 22:00 06/03/25 11:10 10 ML Norepinephrine Bitartrate 32 mg/ Sodium Chloride 250 ml @ 0.938 mls/ hr Q24H IV 05/21/25 01:00 06/02/25 12:00 1.875 MLS/HR Pantoprazole Sodium 40 mg DAILY IV 05/21/25 10:00 06/03/25 11:10 40 MG Artificial Tears 1 drop Q6HP PRN EACHEYE 05/21/25 05:00 06/02/25 22:34 1 DROP Diagnostic Test (Pha) 1 strip Q6HR 05/23/25 00:00 06/03/25 12:00 1 STRIP Insulin Human Regular FOLLOW SLIDING SCALE Q6HR SC 05/23/25 00:00 06/03/25 13:12 8 UNITS Dextrose 50 ml UD IV 05/22/25 22:00 05/24/25 11:36 50 ML Fentanyl Citrate 250 ml @ 2.5 mls/hr Q24H IV 05/23/25 14:00 06/02/25 08:07 2.5 MLS/HR Albumin Human 100 ml @ 100 mls/hr PRN PRN IV 05/24/25 06:45 06/03/25 06:10 100 MLS/HR Enteral Nutritional Formula 1,000 ml 50ML/HR GT 05/24/25 17:30 06/02/25 22:34 1,000 ML Folic Acid 1 mg DAILY PO 05/25/25 10:00 06/03/25 11:11 1 MG Multivitamins 1 tab DAILY PO 05/25/25 10:00 06/03/25 11:09 1 TAB Cyanocobalamin 1,000 mcg DAILY PO 05/25/25 10:00 06/03/25 11:10 1,000 MCG Pyridoxine HCl 50 mg DAILY PO 05/25/25 10:00 06/03/25 11:09 50 MG Ondansetron HCl 4 mg Q4HPRN PRN IV 05/25/25 18:00 Micafungin Sodium 100 mg/Sodium Chloride 100 ml @ 100 mls/hr DAILY IV 05/28/25 10:00 06/03/25 11:11 100 MLS/HR Lactulose 30 ml BID GT 05/28/25 10:00 05/30/25 09:57 30 ML Trimethoprim/ Sulfamethoxazole 0 ml @ 0 mls/hr PER PHARMACY IV 05/28/25 09:45 Trimethoprim/ Sulfamethoxazole 10 ml/Dextrose 260 ml @ 173.333 mls/hr Q12HR IV 05/28/25 22:00 06/03/25 11:12 173.333 MLS/HR Amiodarone HCl 200 mg Q12HR GT 05/29/25 10:00 06/03/25 11:09 200 MG Clopidogrel Bisulfate 75 mg DAILY NG 06/02/25 18:30 Cancel Clopidogrel Bisulfate 75 mg DAILY NG 06/03/25 10:00 06/03/25 11:10 75 MG Albuterol 1.25 mg Q8HP PRN NEB 06/03/25 14:00 06/03/25 13:11 1.25 MG Acetylcysteine 200 mg Q8HR NEB 06/03/25 14:00 06/03/25 13:11 200 MG objective Gen: nad, cachectic heent: nc/at, lungs: Occasional rhonchi cvs: no rub ext: + edema laboratory and microbiology Laboratory Tests 06/03/25 02:56 Test 06/03/25 02:56 Range/Units Serum Glucose 141 H 74-106 mg/dL Assessment/Plan Acute kidney injury superimposed Chronic Kidney Disease stage IV secondary hemodynamic mediated, FeNa < 1% Chronic kidney disease stage IV followed by Dr. Ponce Gangrene left foot, status post left below-knee amputation 05/20 Left lower extremity DVT Ventilator-dependent hypoxic respiratory failure intubated Diabetes mellitus type 2 Chronic diastolic Congestive heart failure/ NSTEMI Septic shock History of testicular cancer Cellulitis lower extremity thrombocytopenia/ anemia - daily evaluation for dialysis needs - tentatively plan for dialysis June 04. Dietary Evaluation Review Comments: 1) Advance to [facility] 75gm + cardiac diet 2) Armen 1 pk BID, MVI w/ minerals 1 tab daily, VitC 500mg BID, Zinc sulfate 220mg BID x 10 days 3) Monitor NPO status, lab values, weight trend, and I/O Expected Outcomes/Goals: To meet >75% estimated needs Wound to improve Fu 2-3 days Plan discussed with: Other TRICIA SANTIAGO MD Jun 03, 2025 14:34
[2025-06-03] MEDS: MAGNESIUM SULFATE 1GM/100ML 100 ML IV ONE (15:06)
[2025-06-03 15:52] LABS: Base Excess -5.7 mmol/L (-2.0-3.0)
[2025-06-03 16:03] LABS: Nucleated Red Blood Cells % 0.2 %
[2025-06-03 16:05] LABS: Hematocrit 20.2 % (41.0-53.0); Mean Corpuscular Hemoglobin 32.7 pg (28.0-32.0); Mean Corpuscular Volume 97.8 fL (80.0-100.0)
--- NOTE | 2025-06-03 16:19 | DVH ---
EXAM: XY CHEST PORTABLE HISTORY: increased work of breathing TECHNIQUE: 1 view of the chest COMPARISON: XY CHEST PORTABLE on DOS: 06/03/25 FINDINGS/IMPRESSION: LUNGS: Volume overload. Worsening small to medium bilateral pleural effusions with central pulmonary vascular congestion and peripheral interstitial edema MEDIASTINUM: Normal cardiac size. BONES: No acute osseous abnormality OTHER: Enteric tube extending into the stomach. Right internal jugular central venous catheter.
[2025-06-03 16:26] LABS: Alanine Aminotransferase 24 U/L (7-40); Albumin 4.4 g/dL (3.2-4.8); Anion Gap 22 (5-15); BUN/Creatinine Ratio 7.8 (10.0-20.0); Blood Urea Nitrogen 13 mg/dL (9-23); Calcium 9.4 mg/dL (8.7-10.4); Chloride 100 mmol/L (98-107); Potassium 4.6 mmol/L (3.5-5.1); Sodium 141 mmol/L (136-145); Total Protein 6.4 g/dL (5.7-8.2)
[2025-06-03 16:28] LABS: Carbon Dioxide 19 mmol/L (20-31); Hemoglobin 6.8 g/dL (13.5-17.5)
[2025-06-03 16:29] LABS: Alkaline Phosphatase 181 U/L (46-116); Bilirubin, Total 2.8 mg/dL (0.2-1.0); Glucose 167 mg/dL (74-106)
--- NOTE | 2025-06-03 17:35 | DVHPNRES ---
Progress Note Date Seen: Jun 03, 2025 Resident Creating Document: FABRICIO CALVIN RESIDENT Has the PT tested + for MRSA If YES, has PT been informed?: No Medical Necessity Reason Pt with a Central, PICC or Fol: Yes The following are medically ne: PICC Line, Leung Catheter Subjective Review of Systems * Post-extubation course: Extubated earlier today and initially on cool-mist aerosol. At ~15:30 developed acute respiratory distress with RR high-20s. * Rescue measures: Ordered BiPAP, STAT CXR, ABG, and 12-lead EKG; RT at bedside. Given bronchodilators, chest physiotherapy, IV albumin, and Mg 2 g IV. * Rhythm/QT: EKG shows QTc ~530 ms with intermittent atrial fibrillation, now back in sinus rhythm on telemetry. * Pressors: Converted norepinephrine to quad-concentration (quad Levo) for stability; titrating for MAP >65. * Antimicrobials: Stopped ciprofloxacin today (QT prolongation risk). Continuing other indicated agents; ID re-evaluation requested for lor-CQ-djabkctvso anti- pseudomonal alternative. * Transfusion/renal: Hgb 7.5 ? 6.8 g/dL; Plt 25 K/L. Will transfuse 1 unit PRBC during next HD to mitigate volume load; holding additional transfusion now due to congestion. * Chemistry: Cr 1.67 mg/dL (GFR 43 mL/min), BUN 7.8 mg/dL, Tbili 2.8 mg/dL, Alk Phos 181 U/L. * Capacity/Goals: Decision-making capacity assessed. Patient initially declined re-intubation if needed, later agreed after risks/benefits discussion. Full Code. Social Work consulted for POA and Ajmns-dy-Wume documentation; discussion held with patients adult son. Review of Systems (limited, post-extubation) * General: No fever/chills. * Resp: Dyspnea earlier; improved on BiPAP. * CV: No current chest pain; palpitations earlier with AF. * GI: No emesis; TFs at trickle rate. * : Oligo-/anuric; HD-dependent. * Neuro: Oriented, communicates needs Objective vital signs Vital Sign Date Time Temp Pulse Resp B/P (MAP) Pulse Ox O2 Delivery O2 Flow Rate FiO2 06/03/25 15:38 125 112/60 100 Facial BiPAP Mask 60 06/03/25 13:17 26 06/03/25 13:11 2.0 06/03/25 12:45 98.4 209.1 Total Intake and Output 06/02/25 06/02/25 06/03/25 15:00 23:00 07:00 Intake Total 583.127 ml 72.504 ml 565.126 ml Output Total 3010 ml 20 ml Balance 583.127 ml -2937.496 ml 545.126 ml medications Current Medications Medications Dose Ordered Sig/Bandar Route Start Time Stop Time Status Last Admin Dose Admin Acetaminophen 650 mg Q6HP PRN PO 05/04/25 15:00 Atorvastatin Calcium 40 mg HS PO 05/17/25 22:00 Hold 05/20/25 22:20 40 MG Sodium Chloride 10 ml QSHIFT@10,22 IV 05/19/25 22:00 06/03/25 11:10 10 ML Norepinephrine Bitartrate 32 mg/ Sodium Chloride 250 ml @ 0.938 mls/ hr Q24H IV 05/21/25 01:00 06/02/25 12:00 1.875 MLS/HR Pantoprazole Sodium 40 mg DAILY IV 05/21/25 10:00 06/03/25 11:10 40 MG Artificial Tears 1 drop Q6HP PRN EACHEYE 05/21/25 05:00 06/02/25 22:34 1 DROP Diagnostic Test (Pha) 1 strip Q6HR 05/23/25 00:00 06/03/25 12:00 1 STRIP Insulin Human Regular FOLLOW SLIDING SCALE Q6HR SC 05/23/25 00:00 06/03/25 13:12 8 UNITS Dextrose 50 ml UD IV 05/22/25 22:00 05/24/25 11:36 50 ML Fentanyl Citrate 250 ml @ 2.5 mls/hr Q24H IV 05/23/25 14:00 06/02/25 08:07 2.5 MLS/HR Albumin Human 100 ml @ 100 mls/hr PRN PRN IV 05/24/25 06:45 06/03/25 06:10 100 MLS/HR Enteral Nutritional Formula 1,000 ml 50ML/HR GT 05/24/25 17:30 06/02/25 22:34 1,000 ML Folic Acid 1 mg DAILY PO 05/25/25 10:00 06/03/25 11:11 1 MG Multivitamins 1 tab DAILY PO 05/25/25 10:00 06/03/25 11:09 1 TAB Cyanocobalamin 1,000 mcg DAILY PO 05/25/25 10:00 06/03/25 11:10 1,000 MCG Pyridoxine HCl 50 mg DAILY PO 05/25/25 10:00 06/03/25 11:09 50 MG Ondansetron HCl 4 mg Q4HPRN PRN IV 05/25/25 18:00 Micafungin Sodium 100 mg/Sodium Chloride 100 ml @ 100 mls/hr DAILY IV 05/28/25 10:00 06/03/25 11:11 100 MLS/HR Lactulose 30 ml BID GT 05/28/25 10:00 05/30/25 09:57 30 ML Trimethoprim/ Sulfamethoxazole 0 ml @ 0 mls/hr PER PHARMACY IV 05/28/25 09:45 Trimethoprim/ Sulfamethoxazole 10 ml/Dextrose 260 ml @ 173.333 mls/hr Q12HR IV 05/28/25 22:00 06/03/25 11:12 173.333 MLS/HR Amiodarone HCl 200 mg Q12HR GT 05/29/25 10:00 06/03/25 11:09 200 MG Clopidogrel Bisulfate 75 mg DAILY NG 06/02/25 18:30 Cancel Clopidogrel Bisulfate 75 mg DAILY NG 06/03/25 10:00 06/03/25 11:10 75 MG Albuterol 1.25 mg Q8HP PRN NEB 06/03/25 14:00 06/03/25 13:11 1.25 MG Acetylcysteine 200 mg Q8HR NEB 06/03/25 14:00 06/03/25 13:11 200 MG Examination * Neuro: Awake, follows commands. * Pulm: Increased WOB during episode; on BiPAP now, synchronous, coarse bibasilar sounds. * CV: Irregularly irregular intermittently; currently regular. No murmurs. * Abd: Soft, nondistended; GT present. * Ext: Edema 12+; left BKA stump CDI.?Labs today: WBC 8.9 K/L; Hgb 6.87.5 g/dL; Plt 25 K/L; Cr 1.67; GFR 43; Tbili 2.8, Alk Phos 181.Imaging: STAT CXR ordered (result pending at time of note). Prior CXR: cardiomegaly, bibasilar air-space disease, bilateral pleural effusions.EKG: QTc ~530 ms; intermittent AF with reversion to sinus. ABG: Ordered STAT (pending). laboratory and microbiology Laboratory Tests 06/03/25 15:50 Test 06/03/25 15:50 Range/Units Serum Glucose 167 H 74-106 mg/dL Microbiology Date/Time Source Procedure Growth Status 05/27/25 15:55 Sputum Gram Stain - Final Complete 05/27/25 15:55 Respiratory Culture - Final Stenotrophomonas maltophilia Complete 05/20/25 18:09 Nose MRSA Screen - Final Complete 05/20/25 01:02 Urine - Leung [place] Urine Culture - Final Yeast, not Dulce albicans Complete 05/19/25 08:14 Blood Blood Culture - Final NO GROWTH AFTER 5 DAYS OF INCUBATION. Complete Problem List/Assessment/Plan Problem List/Assessment/Plan Assessment Critical, complex multi-organ failure patient. 1. Severe Sepsis / Pneumonia due to MDR organisms (Stenotrophomonas, Pseudomonas, Enterobacter). On broad antimicrobials (Ciprofloxacin, TMP-SMX, Micafungin).POA 2. Acute hypoxic respiratory failure with post-extubation failureactive management due to Pneumonia 3. 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 Volume overload / Edema due to oligoanuria and CHF POA 5. Atrial fibrillation previously on amiodarone drip; now rate-controlled. 6. Acute on Chronic HFpEF NSTEMI stable, compensated. due to sepsis 7. PAD with Left foot gangrene s/p BKA stable surgical site. POA 8. Thrombocytopenia & Anemia likely multifactorial (sepsis, critical illness, marrow suppression, renal disease). Received platelets. 9. Metabolic encephalopathy improving; patient follows commands. 10. History of DVT prophylaxis complicated by thrombocytopenia. 11. Poor prognosis given multi-organ dysfunction, infections, dialysis- dependence. Plan 1) Acute hypoxic respiratory failure post-extubation respiratory distress, now on BiPAP * Assessment: Likely multifactorial (pulmonary edema from volume overload, atelectasis/aspiration risk, and ongoing pneumonia). * Plan: * Continue BiPAP (initial: IPAP 1214 / EPAP 5, FiO? titrate to SpO? 9296%). * ABG and STAT CXR to guide therapy; escalate if worsening (prepare for re- intubation if criteria met). * Bronchodilators (ipratropium-albuterol) q46h PRN; chest physiotherapy; pulmonary hygiene. * RT: continuous monitoring; consider HFNC trials between BiPAP sessions if stable. * CDI: Acute hypoxic respiratory failure with post-extubation failureactive management. 2) Sepsis due to polymicrobial pneumonia shock resolved * Status: Afebrile; WBC 8.9. * Antimicrobials: Ciprofloxacin stopped (QT risk). Continue TMP-SMX for Stenotrophomonas and antifungal as previously ordered; ID consult for frf-LR-unyuvxtrcu anti-pseudomonal (e.g., cefepime or piperacillin-tazobactam) with HD dosing based on susceptibilities. * Monitoring: Daily CBC, fever curve, cultures if decompensation. 3) AD superimposed on CKD IV, HD-dependent; volume overload with pleural effusions * Status: Cr 1.67 (GFR 43) post-HD; edema/effusions persist. * Plan: * Next HD session with UF goal per exam, hemodynamics, and CXR; heparin-free HD given thrombocytopenia. * Consider albumin + UF strategy if intravascular depletion suspected. * Strict I/O, daily weight, BMP/Mg/Phos [id number]; avoid nephrotoxins. 4) Severe anemia (multifactorial, CKD/critical illness) and severe thrombocytopenia * Status: Hgb 6.87.5, Plt 25 K/L; no overt bleeding. * Plan: * Transfuse 1U PRBC with HD today; additional units only if symptomatic or Hgb remains <7 post-transfusion. * Platelet transfusion if <10 K, or <2030 K with bleeding/procedures. * Hold pharmacologic DVT prophylaxis; SCDs only until Plt ?50 K. * Recheck post-HD CBC. 5) Atrial fibrillation (paroxysmal) with prolonged QTc (~530 ms) on background amiodarone * Plan: * Telemetry continuous; daily EKG. Administered one dose of 2gm mag * Maintain K >4.0 mEq/L and Mg >2.0 mg/dL (Mg 2 g IV already given; recheck level). * Avoid QT-prolonging agents (e.g., fluoroquinolones, ondansetron, haloperidol). * Reassess need for amiodarone vs alternative rate control (e.g., low-dose beta-mary ellen) with Cardiology, balancing QT risk and AF control. * If polymorphic VT/torsades occurs give Mg, overdrive pacing/isoproterenol, defib PRN. 6) HFpEF / cardiomegaly with hemodynamic support * Plan: * Continue norepinephrine (quad concentration) at lowest effective dose; wean as tolerated to maintain MAP ?65. * Volume removal with HD; monitor for hypotension. * Repeat CXR after interventions. 7) Cholestatic liver enzyme pattern (Tbili 2.8, Alk Phos 181) * Plan: Trend LFTs; review meds, consider RUQ ultrasound if uptrending or clinical concern. 8) Diabetes mellitus, stress hyperglycemia * Plan: POC glucose q6h, ICU insulin protocol targeting [id number] mg/dL; adjust with TFs. 9) Goals of Care / Capacity / Social Work * Status: Patient full code; now willing to be re-intubated if clinically necessary. * Plan: Social Work to formalize POA and document [id number]; continue conversations with patient and surrogate. 10) Prophylaxis & Bundles * DVT: Mechanical SCDs only (Plt 25 K). * GI: Pantoprazole daily. * Device care: Daily necessity review for central line and Leung; oral/skin care; pressure-injury prevention. Case discussed in detail with the attending physician, including the clinical presentation, diagnostic workup, and comprehensive management plan. The duration of time spent in direct critical care management of this patient, including evaluation, review of clinical data, coordination of care, and decision-making, was 45 minutes. Plan discussed with: Patient My Orders My Orders Orders - FABRICIO CALVIN RESIDENT Procedure Category Date Status Time Chest Xray 1 View XY 06/04/25 Logged 04:00 Complete Blood Count LAB 06/04/25 Verified 04:00 Comprehensive LAB 06/04/25 Verified Metabolic Panel 04:00 * Entry Level Electrician CONS 06/03/25 Transmitted Consult Hemoglobin & LAB 06/03/25 Logged Hematocrit 22:00 Hemoglobin & LAB 06/04/25 Verified Hematocrit 10:00 Hemoglobin & LAB 06/04/25 Verified Hematocrit 22:00 Hemoglobin & LAB 06/05/25 Verified Hematocrit 10:00 Hemoglobin & LAB 06/05/25 Verified Hematocrit 22:00 Hemoglobin & LAB 06/06/25 Verified Hematocrit 10:00 Hemoglobin & LAB 06/06/25 Verified Hematocrit 22:00 Hemoglobin & LAB 06/07/25 Verified Hematocrit 10:00 Hemoglobin & LAB 06/07/25 Verified Hematocrit 22:00 Communication Order ORDERS 06/03/25 Transmitted 16:42 Dietary Evaluation Review Comments: 1) [facility] + cardiac diet 2) Armen 1 pk BID, MVI w/ minerals 1 tab daily, VitC 500mg BID, Zinc sulfate 220mg BID x 10 days 3) Monitor NPO status, lab values, weight trend, and I/O Expected Outcomes/Goals: To meet >75% estimated needs Wound to improve Fu 2-3 days Date of Service: Jun 03, 2025 Billing Provider: LAUREN MA MD Common Visit Codes: [id number] CARE 30-74 MIN FABRICIO CALVIN RESIDENT Jun 03, 2025 17:35 LAUREN MA MD Jun 08, 2025 22:22
[2025-06-03 17:57] LABS: Base Excess -4.7 mmol/L (-2.0-3.0)
[2025-06-03 22:25] LABS: Hematocrit 20.1 % (41.0-53.0)
[2025-06-03 22:27] LABS: Hemoglobin 6.7 g/dL (13.5-17.5)
[2025-06-04] VITALS (90 sets, daily range): BP systolic 93–124; BP diastolic 45–78; PULSE 71–122; RESP 14–36; TEMP 96.9–98.6; O2SAT 95–100
[2025-06-04] MEDS: MELATONIN 5 MG TAB PO SCH (00:42)
[2025-06-04] MEDS: MELATONIN 5 MG TAB ONE (00:44)
[2025-06-04 04:06] LABS: Hematocrit 19.9 % (41.0-53.0)
[2025-06-04 04:10] LABS: Mean Corpuscular Hemoglobin 32.8 pg (28.0-32.0); Mean Corpuscular Volume 98.1 fL (80.0-100.0); Nucleated Red Blood Cells % 0.3 %
[2025-06-04 04:17] LABS: Hemoglobin 6.7 g/dL (13.5-17.5)
[2025-06-04 04:24] LABS: Alanine Aminotransferase 28 U/L (7-40); Albumin 4.1 g/dL (3.2-4.8); Anion Gap 16 (5-15); BUN/Creatinine Ratio 9.3 (10.0-20.0); Blood Urea Nitrogen 19 mg/dL (9-23); Calcium 9.6 mg/dL (8.7-10.4); Carbon Dioxide 25 mmol/L (20-31); Chloride 98 mmol/L (98-107); Magnesium 2.4 mg/dL (1.6-2.6); Potassium 4.0 mmol/L (3.5-5.1); Sodium 139 mmol/L (136-145); Total Protein 6.1 g/dL (5.7-8.2)
[2025-06-04 04:25] LABS: Alkaline Phosphatase 153 U/L (46-116); Bilirubin, Total 2.2 mg/dL (0.2-1.0); Glucose 207 mg/dL (74-106)
[2025-06-04] MEDS: ACETAMINOPHEN 325 MG TAB PO PRN (05:45)
--- NOTE | 2025-06-04 05:58 | DVH ---
CHEST RADIOGRAPH Indication: Resipratory failure Technique: Single frontal view of the chest was obtained COMPARISON: XY CHEST PORTABLE on DOS: 06/03/25, XY CHEST PORTABLE on DOS: 06/03/25, XY CHEST XRAY 1 VIE W on DOS: 06/02/25, XY CHEST XRAY 1 VIEW on DOS: 06/01/25, XY CHEST XRAY 1 VIEW on DOS: 05/31/25 FINDINGS: Lines and Tubes: Unchanged. Lungs: Stable appearing bilateral pleural effusions, diffuse increased prominence of the pulmonary va sculature and multifocal bilateral pulmonary airspace disease. No pneumothorax. Cardiomediastinal contours: Cardiomegaly. Bones: Unremarkable IMPRESSION: 1. Stable cardiomegaly, bilateral pleural effusions, diffuse increased prominence of the pulmonary va sculature and multifocal bilateral pulmonary airspace disease. 2. Lines and tubes unchanged.
[2025-06-04 07:15] LABS: Base Excess 0.3 mmol/L (-2.0-3.0)
--- NOTE | 2025-06-04 12:02 | DVHPNRES ---
Progress Note Date Seen: Jun 04, 2025 Resident Creating Document: CARLOS HOUGH RESIDENT Has the PT tested + for MRSA If YES, has PT been informed?: No Medical Necessity Reason Pt with a Central, PICC or Fol: Yes The following are medically ne: PICC Line, Leung Catheter Subjective Review of Systems Patient seen and examined at bedside. Patient is currently on cool aerosol nasal mass with intermittent BiPAP, tolerating well Scheduled for getting dialysis today Mentioned no other complaints Objective vital signs Vital Sign Date Time Temp Pulse Resp B/P (MAP) Pulse Ox O2 Delivery O2 Flow Rate FiO2 06/04/25 11:32 20 97 Cool Aerosol 8 35 35 06/04/25 11:32 86 06/04/25 10:14 118/67 06/04/25 09:30 97.2 207.0 Total Intake and Output 06/03/25 06/03/25 06/04/25 15:00 23:00 07:00 Intake Total 29.068 ml 837.753 ml 198.126 ml Output Total 10 ml 0 ml Balance 29.068 ml 827.753 ml 198.126 ml medications Current Medications Medications Dose Ordered Sig/Bandar Route Start Time Stop Time Status Last Admin Dose Admin Acetaminophen 650 mg Q6HP PRN PO 05/04/25 15:00 06/04/25 05:45 650 MG Atorvastatin Calcium 40 mg HS PO 05/17/25 22:00 Hold 05/20/25 22:20 40 MG Sodium Chloride 10 ml QSHIFT@10,22 IV 05/19/25 22:00 06/03/25 21:40 10 ML Norepinephrine Bitartrate 32 mg/ Sodium Chloride 250 ml @ 0.938 mls/ hr Q24H IV 05/21/25 01:00 06/04/25 05:06 1.875 MLS/HR Pantoprazole Sodium 40 mg DAILY IV 05/21/25 10:00 06/04/25 11:05 40 MG Artificial Tears 1 drop Q6HP PRN EACHEYE 05/21/25 05:00 06/03/25 21:42 1 DROP Diagnostic Test (Pha) 1 strip Q6HR 05/23/25 00:00 06/04/25 11:06 1 STRIP Insulin Human Regular FOLLOW SLIDING SCALE Q6HR SC 05/23/25 00:00 06/04/25 06:00 4 UNITS Dextrose 50 ml UD IV 05/22/25 22:00 05/24/25 11:36 50 ML Fentanyl Citrate 250 ml @ 2.5 mls/hr Q24H IV 05/23/25 14:00 06/02/25 08:07 2.5 MLS/HR Albumin Human 100 ml @ 100 mls/hr PRN PRN IV 05/24/25 06:45 06/03/25 06:10 100 MLS/HR Enteral Nutritional Formula 1,000 ml 50ML/HR GT 05/24/25 17:30 06/02/25 22:34 1,000 ML Folic Acid 1 mg DAILY PO 05/25/25 10:00 06/04/25 11:06 1 MG Multivitamins 1 tab DAILY PO 05/25/25 10:00 06/04/25 11:05 1 TAB Cyanocobalamin 1,000 mcg DAILY PO 05/25/25 10:00 06/04/25 11:05 1,000 MCG Pyridoxine HCl 50 mg DAILY PO 05/25/25 10:00 06/04/25 11:24 50 MG Ondansetron HCl 4 mg Q4HPRN PRN IV 05/25/25 18:00 Micafungin Sodium 100 mg/Sodium Chloride 100 ml @ 100 mls/hr DAILY IV 05/28/25 10:00 06/04/25 11:24 100 MLS/HR Lactulose 30 ml BID GT 05/28/25 10:00 05/30/25 09:57 30 ML Trimethoprim/ Sulfamethoxazole 0 ml @ 0 mls/hr PER PHARMACY IV 05/28/25 09:45 Trimethoprim/ Sulfamethoxazole 10 ml/Dextrose 260 ml @ 173.333 mls/hr Q12HR IV 05/28/25 22:00 06/04/25 11:04 173.333 MLS/HR Amiodarone HCl 200 mg Q12HR GT 05/29/25 10:00 06/04/25 11:05 200 MG Clopidogrel Bisulfate 75 mg DAILY NG 06/02/25 18:30 Cancel Clopidogrel Bisulfate 75 mg DAILY NG 06/03/25 10:00 06/04/25 11:05 75 MG Albuterol 1.25 mg Q8HP PRN NEB 06/03/25 14:00 06/04/25 06:43 1.25 MG Acetylcysteine 200 mg Q8HR NEB 06/03/25 14:00 06/04/25 06:43 200 MG Melatonin 5 mg HS PO 06/04/25 22:00 06/04/25 00:42 5 MG Examination Examination * Neuro: Awake, follows commands. * Pulm: Decreased air entry bilateral lungs, no wheezing * CV: Irregularly irregular intermittently; currently regular. No murmurs. * Abd: Soft, nondistended; GT present. * Ext: Left below-knee amputation, pedal edema bilateral limbs laboratory and microbiology Laboratory Tests 06/04/25 03:00 Test 06/04/25 03:00 Range/Units Serum Glucose 207 H 74-106 mg/dL Microbiology Date/Time Source Procedure Growth Status 05/27/25 15:55 Sputum Gram Stain - Final Complete 05/27/25 15:55 Respiratory Culture - Final Stenotrophomonas maltophilia Complete 05/20/25 18:09 Nose MRSA Screen - Final Complete 05/20/25 01:02 Urine - [place] Urine Culture - Final Yeast, not Dulce albicans Complete 05/19/25 08:14 Blood Blood Culture - Final NO GROWTH AFTER 5 DAYS OF INCUBATION. Complete Problem List/Assessment/Plan Problem List/Assessment/Plan Assessment/plan Neurology # metabolic encephalopathy Improving Patient follows commands # sedation, off currently Cardiology # NSTEMI type 2 likely due to sepsis Cardiology on board # Acute on Chronic HFpEF Continue dialysis We will order echocardiogram # peripheral arterial disease with left foot gangrene status post below-knee hypertension Continue Plavix # history of coronary artery disease Continue Plavix # AFib Avoid Lovenox because of low platelet count # prolonged QTC Avoid levofloxacin Respiratory # acute hypoxic respiratory failure status post extubation Currently on intermittent BiPAP Breathing treatment Chest physical therapy Pulmonary on board # volume overload/edema due to end-stage renal disease We will order echocardiogram # moderate pleural effusion -low platelet count, we will monitor for improvement in platelet function and do thoracentesis after Nephrology # AD on CKD currently on intermittent dialysis Nephrology on board Anuric Infectious disease # Severe Sepsis due to Pneumonia due to MDR organisms (Stenotrophomonas, Pseudomonas, Enterobacter). On broad antimicrobial DC ciprofloxacin because of prolonged QTC hematology/oncology # Thrombocytopenia & Anemia likely multifactorial (sepsis, critical illness, marrow suppression, renal disease). Received platelets. PRBC transfusion with dialysis # coagulopathy due to sepsis Monitor GI # DVT prophylaxis IV Protonix 06/04/2025: Continue with pureed Diet as patient had swallow evaluation, transfuse 1 unit of PRBC with hemodialysis, continue intermittent BiPAP. Discontinue ciprofloxacin. Continue Bactrim for total of 14 days of treatment. Compensation Associate consulted for home safety and POA. Patient yesterday had decision making capacity and decided initially for DNI and later agreed for intubation Patient's son in the hospital was aggressive and the cavity was security by the hospital staff Patient today again was assessed for capacity and patient decided for full code, we will continue with that Compensation Associate consulted for home safety evaluation and POA status Case discussion with Dr. Ma Plan discussed with: Patient My Orders My Orders Orders - CARLOS HOUGH Procedure Category Date Status Time Abg W/ Co-Ox RT 06/03/25 Logged 15:21 BIPAP RT 06/03/25 Logged 15:36 Abg W/ Co-Ox RT 06/03/25 Logged 15:42 Electrocardigram EKG 06/03/25 Logged 16:42 Chest Portable XY 06/03/25 Resulted 15:42 BIPAP RT 06/03/25 Logged 16:17 Abg W/ Co-Ox RT 06/03/25 Logged 17:30 Abg W/ Co-Ox RT 06/04/25 Logged 04:00 Communication Order ORDERS 06/04/25 Transmitted 06:11 Electrocardigram EKG 06/04/25 Logged 06:30 Pureed DIET 06/04/25 Transmitted Lunch Hemoglobin & LAB 06/04/25 Logged Hematocrit 15:00 Dietary Evaluation Review Comments: 1) Advance to [facility] 75gm + cardiac diet 2) Armen 1 pk BID, MVI w/ minerals 1 tab daily, VitC 500mg BID, Zinc sulfate 220mg BID x 10 days 3) Monitor NPO status, lab values, weight trend, and I/O Expected Outcomes/Goals: To meet >75% estimated needs Wound to improve Fu 2-3 days Date of Service: Jun 04, 2025 Billing Provider: LAUREN MA MD Common Visit Codes: [id number] CARE 30-74 MIN CARLOS HOUGH Jun 04, 2025 12:02 LAUREN MA MD Jun 08, 2025 22:23
--- NOTE | 2025-06-04 14:12 | DVHPN2 ---
Progress Note - Dictate Date Seen: Jun 04, 2025 Has the PT tested + for MRSA If YES, has PT been informed?: No Medical Necessity Reason Pt with a Central, PICC or Fol: Yes The following are medically ne: PICC Line, Leung Catheter Subjective Patient is slightly more alert today, he received dialysis earlier this morning. Approximately 2.5 L of ultrafiltration. vital signs Vital Sign Date Time Temp Pulse Resp B/P (MAP) Pulse Ox O2 Delivery O2 Flow Rate FiO2 06/04/25 13:38 74 06/04/25 13:38 20 97 Cool Aerosol 8 35 35 06/04/25 13:00 97.9 99/54 (69) 97.9 Total Intake and Output 06/03/25 06/03/25 06/04/25 15:00 23:00 07:00 Intake Total 29.068 ml 837.753 ml 198.126 ml Output Total 10 ml 0 ml Balance 29.068 ml 827.753 ml 198.126 ml medications Current Medications Medications Dose Ordered Sig/Bandar Route Start Time Stop Time Status Last Admin Dose Admin Acetaminophen 650 mg Q6HP PRN PO 05/04/25 15:00 06/04/25 05:45 650 MG Atorvastatin Calcium 40 mg HS PO 05/17/25 22:00 Hold 05/20/25 22:20 40 MG Sodium Chloride 10 ml QSHIFT@10,22 IV 05/19/25 22:00 06/03/25 21:40 10 ML Norepinephrine Bitartrate 32 mg/ Sodium Chloride 250 ml @ 0.938 mls/ hr Q24H IV 05/21/25 01:00 06/04/25 05:06 1.875 MLS/HR Pantoprazole Sodium 40 mg DAILY IV 05/21/25 10:00 06/04/25 11:05 40 MG Artificial Tears 1 drop Q6HP PRN EACHEYE 05/21/25 05:00 06/03/25 21:42 1 DROP Diagnostic Test (Pha) 1 strip Q6HR 05/23/25 00:00 06/04/25 11:06 1 STRIP Insulin Human Regular FOLLOW SLIDING SCALE Q6HR SC 05/23/25 00:00 06/04/25 06:00 4 UNITS Dextrose 50 ml UD IV 05/22/25 22:00 05/24/25 11:36 50 ML Fentanyl Citrate 250 ml @ 2.5 mls/hr Q24H IV 05/23/25 14:00 06/02/25 08:07 2.5 MLS/HR Albumin Human 100 ml @ 100 mls/hr PRN PRN IV 05/24/25 06:45 06/03/25 06:10 100 MLS/HR Enteral Nutritional Formula 1,000 ml 50ML/HR GT 05/24/25 17:30 06/02/25 22:34 1,000 ML Folic Acid 1 mg DAILY PO 05/25/25 10:00 06/04/25 11:06 1 MG Multivitamins 1 tab DAILY PO 05/25/25 10:00 06/04/25 11:05 1 TAB Cyanocobalamin 1,000 mcg DAILY PO 05/25/25 10:00 06/04/25 11:05 1,000 MCG Pyridoxine HCl 50 mg DAILY PO 05/25/25 10:00 06/04/25 11:24 50 MG Ondansetron HCl 4 mg Q4HPRN PRN IV 05/25/25 18:00 Micafungin Sodium 100 mg/Sodium Chloride 100 ml @ 100 mls/hr DAILY IV 05/28/25 10:00 06/04/25 11:24 100 MLS/HR Lactulose 30 ml BID GT 05/28/25 10:00 05/30/25 09:57 30 ML Trimethoprim/ Sulfamethoxazole 0 ml @ 0 mls/hr PER PHARMACY IV 05/28/25 09:45 Trimethoprim/ Sulfamethoxazole 10 ml/Dextrose 260 ml @ 173.333 mls/hr Q12HR IV 05/28/25 22:00 06/04/25 11:04 173.333 MLS/HR Amiodarone HCl 200 mg Q12HR GT 05/29/25 10:00 06/04/25 11:05 200 MG Clopidogrel Bisulfate 75 mg DAILY NG 06/02/25 18:30 Cancel Clopidogrel Bisulfate 75 mg DAILY NG 06/03/25 10:00 06/04/25 11:05 75 MG Albuterol 1.25 mg Q8HP PRN NEB 06/03/25 14:00 06/04/25 06:43 1.25 MG Acetylcysteine 200 mg Q8HR NEB 06/03/25 14:00 06/04/25 06:43 200 MG Melatonin 5 mg HS PO 06/04/25 22:00 06/04/25 00:42 5 MG objective Gen: nad, cachectic heent: nc/at, lungs: Occasional rhonchi cvs: no rub ext: + edema laboratory and microbiology Laboratory Tests 06/04/25 03:00 Test 06/04/25 03:00 Range/Units Serum Glucose 207 H 74-106 mg/dL Assessment/Plan Acute kidney injury superimposed Chronic Kidney Disease stage IV secondary hemodynamic mediated, FeNa < 1% Chronic kidney disease stage IV followed by Dr. Rosario Adame left foot, status post left below-knee amputation 05/20 Left lower extremity DVT Ventilator-dependent hypoxic respiratory failure intubated Diabetes mellitus type 2 Chronic diastolic Congestive heart failure/ NSTEMI Septic shock History of testicular cancer Cellulitis lower extremity thrombocytopenia/ anemia REC: - we will continue with daily evaluation for dialysis needs - patient remains oliguric anuric in the suspect will require additional dialysis for fluid removal - overall poor prognosis due to significant comorbid conditions Dietary Evaluation Review Comments: 1) Advance to [facility] 75gm + cardiac diet 2) Armen 1 pk BID, MVI w/ minerals 1 tab daily, VitC 500mg BID, Zinc sulfate 220mg BID x 10 days 3) Monitor NPO status, lab values, weight trend, and I/O Expected Outcomes/Goals: To meet >75% estimated needs Wound to improve Fu 2-3 days Plan discussed with: Patient, Other TRICIA SANTIAOG MD Jun 04, 2025 14:12
[2025-06-04 15:05] LABS: Hematocrit 26.5 % (41.0-53.0); Hemoglobin 9.1 g/dL (13.5-17.5)
[2025-06-04 22:24] LABS: Hemoglobin 7.3 g/dL (13.5-17.5)
[2025-06-04 22:26] LABS: Hematocrit 21.4 % (41.0-53.0)
[2025-06-05] VITALS (103 sets, daily range): BP systolic 100–139; BP diastolic 46–89; PULSE 68–86; RESP 15–38; TEMP 96.9–98; O2SAT 91–100
[2025-06-05 04:44] LABS: Chloride 100 mmol/L (98-107); Potassium 3.5 mmol/L (3.5-5.1); Sodium 141 mmol/L (136-145)
[2025-06-05 04:45] LABS: Anion Gap 13 (5-15); Calcium 9.6 mg/dL (8.7-10.4); Carbon Dioxide 28 mmol/L (20-31)
[2025-06-05 04:50] LABS: BUN/Creatinine Ratio 9.4 (10.0-20.0); Blood Urea Nitrogen 18 mg/dL (9-23); Magnesium 2.2 mg/dL (1.6-2.6)
[2025-06-05 04:55] LABS: Glucose 179 mg/dL (74-106)
[2025-06-05 05:14] LABS: Mean Corpuscular Volume 95.0 fL (80.0-100.0)
[2025-06-05 05:20] LABS: Hematocrit 25.3 % (41.0-53.0); Hemoglobin 8.8 g/dL (13.5-17.5); Mean Corpuscular Hemoglobin 32.9 pg (28.0-32.0); Nucleated Red Blood Cells % 0.3 %
--- NOTE | 2025-06-05 05:45 | DVH ---
CHEST RADIOGRAPH Indication: sob Technique: Single frontal view of the chest was obtained COMPARISON: XY CHEST XRAY 1 VIEW on DOS: 06/04/25, XY CHEST PORTABLE on DOS: 06/03/25, XY CHEST PORTABL E on DOS: 06/03/25, XY CHEST XRAY 1 VIEW on DOS: 06/02/25, XY CHEST XRAY 1 VIEW on DOS: 06/01/25 FINDINGS: Lines and Tubes: Unchanged. Lungs: Stable diffuse increased prominence of the pulmonary vasculature and bilateral pleural effusio ns with bibasilar pulmonary airspace disease. No pneumothorax. Cardiomediastinal contours: Cardiomegaly. Bones: Unremarkable IMPRESSION: 1. Cardiomegaly, diffuse increased prominence of pulmonary vasculature and stable bilateral pleural e ffusions. 2. Lines and tubes unchanged.
[2025-06-05 07:45] LABS: Base Excess 1.0 mmol/L (-2.0-3.0)
--- NOTE | 2025-06-05 11:22 | DVHPN2 ---
Progress Note - Dictate Date Seen: Jun 05, 2025 Has the PT tested + for MRSA If YES, has PT been informed?: No Medical Necessity Reason Pt with a Central, PICC or Fol: Yes The following are medically ne: PICC Line, Leung Catheter Subjective Opens eyes to voice, remains oligo- anuric vital signs Vital Sign Date Time Temp Pulse Resp B/P (MAP) Pulse Ox O2 Delivery O2 Flow Rate FiO2 06/05/25 07:15 77 21 117/59 (78) 100 06/05/25 06:24 Nasal Cannula* 3 32 06/05/25 04:00 97.6 97.6 Total Intake and Output 06/04/25 06/04/25 06/05/25 15:00 23:00 07:00 Intake Total 369.376 ml 555 ml Output Total 0 ml 130 ml Balance 369.376 ml 0 ml 425 ml medications Current Medications Medications Dose Ordered Sig/Bandar Route Start Time Stop Time Status Last Admin Dose Admin Acetaminophen 650 mg Q6HP PRN PO 05/04/25 15:00 06/04/25 05:45 650 MG Atorvastatin Calcium 40 mg HS PO 05/17/25 22:00 Hold 05/20/25 22:20 40 MG Sodium Chloride 10 ml QSHIFT@10,22 IV 05/19/25 22:00 06/05/25 10:37 10 ML Norepinephrine Bitartrate 32 mg/ Sodium Chloride 250 ml @ 0.938 mls/ hr Q24H IV 05/21/25 01:00 06/04/25 05:06 1.875 MLS/HR Pantoprazole Sodium 40 mg DAILY IV 05/21/25 10:00 06/05/25 10:37 40 MG Artificial Tears 1 drop Q6HP PRN EACHEYE 05/21/25 05:00 06/03/25 21:42 1 DROP Diagnostic Test (Pha) 1 strip Q6HR 05/23/25 00:00 06/05/25 05:29 1 STRIP Insulin Human Regular FOLLOW SLIDING SCALE Q6HR SC 05/23/25 00:00 06/05/25 05:29 4 UNITS Dextrose 50 ml UD IV 05/22/25 22:00 05/24/25 11:36 50 ML Fentanyl Citrate 250 ml @ 2.5 mls/hr Q24H IV 05/23/25 14:00 06/02/25 08:07 2.5 MLS/HR Albumin Human 100 ml @ 100 mls/hr PRN PRN IV 05/24/25 06:45 06/03/25 06:10 100 MLS/HR Enteral Nutritional Formula 1,000 ml 50ML/HR GT 05/24/25 17:30 06/05/25 01:13 1,000 ML Folic Acid 1 mg DAILY PO 05/25/25 10:00 06/05/25 10:38 1 MG Multivitamins 1 tab DAILY PO 05/25/25 10:00 06/05/25 10:37 1 TAB Cyanocobalamin 1,000 mcg DAILY PO 05/25/25 10:00 06/05/25 10:38 1,000 MCG Pyridoxine HCl 50 mg DAILY PO 05/25/25 10:00 06/05/25 10:42 50 MG Ondansetron HCl 4 mg Q4HPRN PRN IV 05/25/25 18:00 Micafungin Sodium 100 mg/Sodium Chloride 100 ml @ 100 mls/hr DAILY IV 05/28/25 10:00 06/05/25 10:18 100 MLS/HR Lactulose 30 ml BID GT 05/28/25 10:00 06/05/25 10:37 30 ML Trimethoprim/ Sulfamethoxazole 0 ml @ 0 mls/hr PER PHARMACY IV 05/28/25 09:45 Trimethoprim/ Sulfamethoxazole 10 ml/Dextrose 260 ml @ 173.333 mls/hr Q12HR IV 05/28/25 22:00 06/04/25 21:56 173.333 MLS/HR Amiodarone HCl 200 mg Q12HR GT 05/29/25 10:00 06/05/25 10:37 200 MG Clopidogrel Bisulfate 75 mg DAILY NG 06/02/25 18:30 Cancel Clopidogrel Bisulfate 75 mg DAILY NG 06/03/25 10:00 06/05/25 10:41 75 MG Albuterol 1.25 mg Q8HP PRN NEB 06/03/25 14:00 06/05/25 06:23 1.25 MG Acetylcysteine 200 mg Q8HR NEB 06/03/25 14:00 06/05/25 06:23 200 MG Melatonin 5 mg HS PO 06/04/25 22:00 06/04/25 21:56 5 MG objective Gen: nad, cachectic heent: nc/at, lungs: Occasional rhonchi cvs: no rub ext: + edema laboratory and microbiology Laboratory Tests 06/05/25 04:19 Test 06/05/25 04:19 Range/Units Serum Glucose 179 H 74-106 mg/dL Assessment/Plan Acute kidney injury superimposed Chronic Kidney Disease stage IV secondary hemodynamic mediated, FeNa < 1% Chronic kidney disease stage IV followed by Dr. Ponce Gangrene left foot, status post left below-knee amputation 05/20 Left lower extremity DVT Ventilator-dependent hypoxic respiratory failure intubated Diabetes mellitus type 2 Chronic diastolic Congestive heart failure/ NSTEMI Septic shock History of testicular cancer Cellulitis lower extremity thrombocytopenia/ anemia REC: - isolated ultrafiltration today for added fluid removal - metabolic parameters all stable currently. Dietary Evaluation Review Comments: 1) Advance to [facility] 75gm + cardiac diet 2) Armen 1 pk BID, MVI w/ minerals 1 tab daily, VitC 500mg BID, Zinc sulfate 220mg BID x 10 days 3) Monitor NPO status, lab values, weight trend, and I/O Expected Outcomes/Goals: To meet >75% estimated needs Wound to improve Fu 2-3 days Plan discussed with: Other TRICIA SANTIAGO MD Jun 05, 2025 11:22
[2025-06-05 11:51] LABS: Hematocrit 28.5 % (41.0-53.0); Hemoglobin 9.7 g/dL (13.5-17.5)
--- NOTE | 2025-06-05 15:02 | DVHPNRES ---
Progress Note Date Seen: Jun 05, 2025 Resident Creating Document: FABRICIO CALVIN RESIDENT Has the PT tested + for MRSA If YES, has PT been informed?: No Medical Necessity Reason Pt with a Central, PICC or Fol: Yes The following are medically ne: PICC Line, Leung Catheter Subjective Review of Systems * Patient underwent hemodialysis with ultrafiltration today; tolerated well. * Respiratory status: Extubated, now stable on 2 L NC with RR 21; intermittent BiPAP required only for 1 hr overnight. * Hemodynamics: Stable; BP 117/59, MAP ?65 on low-dose norepinephrine. * Labs: * WBC 8.9 (normal). * Hemoglobin 8.8 (? from 7.3 yesterday). * Platelets stable at 2530K. * ABG: pH 7.49, pCO? 31.4, HCO? 23.9 ? mild respiratory alkalosis. * Creatinine 1.92, GFR 36 (CKD baseline with AD, HD-dependent). * Stool output: 130 mL. * Imaging: CXR increased pulmonary vascular prominence, cardiomegaly, bilateral infiltrates/effusions stable. * Nutrition: On Glucerna tube feeds. * Current meds: Amiodarone 200 mg q12h, clopidogrel 75 mg daily, albuterol nebs q8h, TMP-SMX q12h, micafungin, NAC (Mucomyst) q8h, pantoprazole, lactulose, vitamins (B6, B12, folate), melatonin, insulin sliding scale, norepinephrine (low dose), artificial tears. Plan: Patient clinically improving; may be downgraded from ICU tomorrow if stable overnight. Review of Systems (limited, post-extubation) * Neuro: Alert, interactive, follows commands. * Resp: Mild exertional dyspnea, comfortable on NC, no acute distress. * CV: Denies chest pain/palpitations; stable rhythm. * GI: Tolerating TF; stool output noted. * : HD-dependent, minimal blackfeet UOP. * Skin/Ext: Mild edema; left BKA stump CDI. * ID: Afebrile, WBC normal. Objective vital signs Vital Sign Date Time Temp Pulse Resp B/P (MAP) Pulse Ox O2 Delivery O2 Flow Rate FiO2 06/05/25 14:18 77 16 100 06/05/25 14:12 Nasal Cannula 3.0 06/05/25 14:12 32 9/28/25 07:15 117/59 (78) 06/05/25 04:00 97.6 97.6 Total Intake and Output 06/04/25 06/04/25 06/05/25 15:00 23:00 07:00 Intake Total 369.376 ml 555 ml Output Total 0 ml 130 ml Balance 369.376 ml 0 ml 425 ml medications Current Medications Medications Dose Ordered Sig/Bandar Route Start Time Stop Time Status Last Admin Dose Admin Acetaminophen 650 mg Q6HP PRN PO 05/04/25 15:00 06/04/25 05:45 650 MG Atorvastatin Calcium 40 mg HS PO 05/17/25 22:00 Hold 05/20/25 22:20 40 MG Sodium Chloride 10 ml QSHIFT@10,22 IV 05/19/25 22:00 06/05/25 10:37 10 ML Norepinephrine Bitartrate 32 mg/ Sodium Chloride 250 ml @ 0.938 mls/ hr Q24H IV 05/21/25 01:00 06/04/25 05:06 1.875 MLS/HR Pantoprazole Sodium 40 mg DAILY IV 05/21/25 10:00 06/05/25 10:37 40 MG Artificial Tears 1 drop Q6HP PRN EACHEYE 05/21/25 05:00 06/03/25 21:42 1 DROP Diagnostic Test (Pha) 1 strip Q6HR 05/23/25 00:00 06/05/25 12:44 1 STRIP Insulin Human Regular FOLLOW SLIDING SCALE Q6HR SC 05/23/25 00:00 06/05/25 12:46 8 UNITS Dextrose 50 ml UD IV 05/22/25 22:00 05/24/25 11:36 50 ML Fentanyl Citrate 250 ml @ 2.5 mls/hr Q24H IV 05/23/25 14:00 06/02/25 08:07 2.5 MLS/HR Albumin Human 100 ml @ 100 mls/hr PRN PRN IV 05/24/25 06:45 06/03/25 06:10 100 MLS/HR Enteral Nutritional Formula 1,000 ml 50ML/HR GT 05/24/25 17:30 06/05/25 01:13 1,000 ML Folic Acid 1 mg DAILY PO 05/25/25 10:00 06/05/25 10:38 1 MG Multivitamins 1 tab DAILY PO 05/25/25 10:00 06/05/25 10:37 1 TAB Cyanocobalamin 1,000 mcg DAILY PO 05/25/25 10:00 06/05/25 10:38 1,000 MCG Pyridoxine HCl 50 mg DAILY PO 05/25/25 10:00 06/05/25 10:42 50 MG Ondansetron HCl 4 mg Q4HPRN PRN IV 05/25/25 18:00 Micafungin Sodium 100 mg/Sodium Chloride 100 ml @ 100 mls/hr DAILY IV 05/28/25 10:00 06/05/25 10:18 100 MLS/HR Lactulose 30 ml BID GT 05/28/25 10:00 06/05/25 10:37 30 ML Trimethoprim/ Sulfamethoxazole 0 ml @ 0 mls/hr PER PHARMACY IV 05/28/25 09:45 Trimethoprim/ Sulfamethoxazole 10 ml/Dextrose 260 ml @ 173.333 mls/hr Q12HR IV 05/28/25 22:00 06/05/25 11:32 173.333 MLS/HR Amiodarone HCl 200 mg Q12HR GT 05/29/25 10:00 06/05/25 10:37 200 MG Clopidogrel Bisulfate 75 mg DAILY NG 06/02/25 18:30 Cancel Clopidogrel Bisulfate 75 mg DAILY NG 06/03/25 10:00 06/05/25 10:41 75 MG Albuterol 1.25 mg Q8HP PRN NEB 06/03/25 14:00 06/05/25 14:12 1.25 MG Acetylcysteine 200 mg Q8HR NEB 06/03/25 14:00 06/05/25 14:12 200 MG Melatonin 5 mg HS PO 06/04/25 22:00 06/04/25 21:56 5 MG Examination * General: Awake, extubated, no acute distress. * HEENT: On 2 L NC; mucosa moist. * CV: Regular rhythm; no new murmurs. * Resp: Coarse bibasilar sounds, decreased at bases. * Abd: Soft, nondistended; GT in place. * Ext: 1+ edema; left BKA stump intact. * Neuro: Oriented, follows commands, no deficits. * Skin/Lines: Leung in place, sites clean. laboratory and microbiology Laboratory Tests 06/05/25 11:35 06/05/25 04:19 Test 06/05/25 04:19 Range/Units Serum Glucose 179 H 74-106 mg/dL Microbiology Date/Time Source Procedure Growth Status 05/27/25 15:55 Sputum Gram Stain - Final Complete 05/27/25 15:55 Respiratory Culture - Final Stenotrophomonas maltophilia Complete 05/20/25 18:09 Nose MRSA Screen - Final Complete 05/20/25 01:02 Urine - Leung Port Urine Culture - Final Yeast, not Dulce albicans Complete 05/19/25 08:14 Blood Blood Culture - Final NO GROWTH AFTER 5 DAYS OF INCUBATION. Complete Problem List/Assessment/Plan Problem List/Assessment/Plan Assessment Critical, complex multi-organ failure patient. 1. Severe Sepsis / Pneumonia due to MDR organisms (Stenotrophomonas, Pseudomonas, Enterobacter). On broad antimicrobials (Ciprofloxacin, TMP-SMX, Micafungin).POA 2. Acute hypoxic respiratory failure with post-extubation failureactive management due to Pneumonia 3. 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 Volume overload / Edema due to oligoanuria and CHF POA 5. Atrial fibrillation previously on amiodarone drip; now rate-controlled. 6. Acute on Chronic HFpEF NSTEMI stable, compensated. due to sepsis 7. PAD with Left foot gangrene s/p BKA stable surgical site. POA 8. Thrombocytopenia & Anemia likely multifactorial (sepsis, critical illness, marrow suppression, renal disease). Received platelets. 9. Metabolic encephalopathy improving; patient follows commands. 10. History of DVT prophylaxis complicated by thrombocytopenia. 11. Poor prognosis given multi-organ dysfunction, infections, dialysis- dependence. Plan Acute hypoxic respiratory failure (RESIDENTIAL) * Extubated, stable on 2 L NC, intermittent BiPAP overnight. * Plan: Continue NC, BiPAP PRN. Daily ABG/CXR while weaning support. Pulmonary hygiene, RT eval. 2) Sepsis due to MDR pneumonia improving * Afebrile, WBC 8.9. * On TMP-SMX + micafungin; ciprofloxacin discontinued for QT prolongation. * Plan: Continue antimicrobials per ID with renal dosing. Monitor cultures. 3) AD on CKD IV, HD dependent * Cr 1.92, GFR 36. UF 2.5 L today. * Plan: Continue scheduled HD with UF per nephrology; heparin-free given thrombocytopenia. BMP/Mg/Phos [id number]. 4) Volume overload with pulmonary vascular congestion & effusions * Improving with UF. * Plan: Continue UF as tolerated; strict I/O, daily weights, repeat CXR. 5) Severe anemia (Hgb 8.8) and thrombocytopenia (Plt ~25K) * Stable, improved from yesterday. * Plan: PRBC if <7 or symptomatic. Platelets if <10K or <2030K if bleeding. Continue monitoring daily CBC. 6) Atrial fibrillation with prolonged QTc * On amiodarone 200 mg q12h. QTc previously ~530 ms. * Plan: Daily EKG, telemetry. Replete K >4, Mg >2. Consider cardiology review re: need for amiodarone vs rate control alternative. 7) HFpEF / cardiomegaly * Stable BP 117/59; on low-dose norepinephrine. * Plan: Wean norepinephrine if MAP ?65 sustained. Continue UF for preload reduction. 8) Nutrition / GI * On Glucerna tube feeds; tolerating. Stool 130 mL. * Plan: Continue TF. Pantoprazole daily. Adjust bowel regimen; lactulose may be held if loose stools. 9) Complicated candiduria * Continue micafungin; ID to consider fluconazole if susceptible species. Leung review daily. 10) Prophylaxis * DVT: SCDs only (Plt <50K). * GI: Pantoprazole. * Device care: CLABSI/CAUTI bundles; daily necessity review. * Skin: Pressure-injury prevention; stump care. Case discussed in detail with the attending physician, including the clinical presentation, diagnostic workup, and comprehensive management plan. The duration of time spent in direct critical care management of this patient, including evaluation, review of clinical data, coordination of care, and decision-making, was 45 minutes. Plan discussed with: Patient My Orders My Orders Orders - FABRICIO CALVIN RESIDENT Procedure Category Date Status Time Complete Blood Count LAB 06/06/25 Verified 04:00 Comprehensive LAB 06/06/25 Verified Metabolic Panel 04:00 Abg W/ Co-Ox RT 06/06/25 Verified 04:00 Chest Two Views XY 06/05/25 Verified Routine 14:57 Magnesium [place]ton PHA 06/05/25 Verified 15:00 Dietary Evaluation Review Comments: 1) Advance to [facility] 75gm + cardiac diet 2) Armen 1 pk BID, MVI w/ minerals 1 tab daily, VitC 500mg BID, Zinc sulfate 220mg BID x 10 days 3) Monitor NPO status, lab values, weight trend, and I/O Expected Outcomes/Goals: To meet >75% estimated needs Wound to improve Fu 2-3 days Date of Service: Jun 05, 2025 Billing Provider: LAUREN MA MD Common Visit Codes: [id number] CARE 30-74 MIN FABRICIO CALVIN RESIDENT Jun 05, 2025 15:02 LAUREN MA MD Jun 08, 2025 22:24
--- NOTE | 2025-06-05 16:10 | DVH ---
CHEST RADIOGRAPH Indication: Post extubation Changes Technique: Single frontal view of the chest was obtained COMPARISON: XY CHEST PORTABLE on DOS: 06/05/25, XY CHEST XRAY 1 VIEW on DOS: 06/04/25, XY CHEST PORTABL E on DOS: 06/03/25, XY CHEST PORTABLE on DOS: 06/03/25, XY CHEST XRAY 1 VIEW on DOS: 06/02/25 FINDINGS: Lines and Tubes: Enteric catheter and right central venous catheter in satisfactory position. Lungs: Unchanged pulmonary edema. Pleura: Unchanged small bilateral pleural effusions.No pneumothorax. Cardiomediastinal contours: Unremarkable Bones: Unremarkable IMPRESSION: Unchanged pulmonary edema and small bilateral pleural effusions.
[2025-06-05] MEDS: MAGNESIUM SULFATE 1GM/100ML 100 ML IV ONE (17:14)
[2025-06-05] MEDS: SODIUM CHL 0.9% 1000 ML BAG XX ONE (19:02)
--- NOTE | 2025-06-05 19:48 | DVHPN2 ---
Subjective DOS: 06/03/2025 Patient seen and examined at bedside. Remains on supplemental oxygen Overnight events reviewed Reviewed: Care Plan, H&P, Labs, Medications, Previous Orders Changes from previous H/P or p: No Changes General: Per HPI Objective Vitals Vital Signs Date Time Temp Pulse Resp B/P (MAP) Pulse Ox O2 Delivery O2 Flow Rate FiO2 06/05/25 16:00 80 06/05/25 14:18 16 100 06/05/25 14:12 Nasal Cannula 3.0 06/05/25 14:12 32 06/05/25 14:00 114/56 06/05/25 04:00 97.6 97.6 Intake/Output Intake and Output 06/05/25 07:00 Intake Total 924.376 ml Output Total 130 ml Balance 794.376 ml Intake Oral 120 ml IV Total 269.376 ml Tube Feeding 175 ml Other 360 ml Output Urine Total 0 ml Stool Total 130 ml General Appearance: Other (Encephalopathic) HEENT: Atraumatic, PERRLA Lungs: Clear to auscultation, Other (Decreased air entry bilaterally. No wheezing or rhonchi ) Cardiovascular: Normal S1, Normal S2, Other (Atrial fibrillation) Abdomen: Normal bowel sounds, Soft, No tenderness, No hepatospenomegaly Genitourinary: No Apparent Abnormalities (Leung catheter) Musculoskeletal: Other (Unable to assess) Extremities: Normal pulses, Other (Left BKA) Neuro: Other (Awake, following commands.) Skin: Wounds (See nurse notes and pictures) Psych/Mental Status: Other (Unable to assess) Medications Current Medications Medications Dose Ordered Sig/Bandar Route Start Time Stop Time Status Last Admin Dose Admin Acetaminophen 650 mg Q6HP PRN PO 05/04/25 15:00 06/04/25 05:45 650 MG Atorvastatin Calcium 40 mg HS PO 05/17/25 22:00 Hold 05/20/25 22:20 40 MG Sodium Chloride 10 ml QSHIFT@10,22 IV 05/19/25 22:00 06/05/25 10:37 10 ML Norepinephrine Bitartrate 32 mg/ Sodium Chloride 250 ml @ 0.938 mls/ hr Q24H IV 05/21/25 01:00 06/04/25 05:06 1.875 MLS/HR Pantoprazole Sodium 40 mg DAILY IV 05/21/25 10:00 06/05/25 10:37 40 MG Artificial Tears 1 drop Q6HP PRN EACHEYE 05/21/25 05:00 06/03/25 21:42 1 DROP Diagnostic Test (Pha) 1 strip Q6HR 05/23/25 00:00 06/05/25 18:40 1 STRIP Insulin Human Regular FOLLOW SLIDING SCALE Q6HR SC 05/23/25 00:00 06/05/25 18:43 4 UNITS Dextrose 50 ml UD IV 05/22/25 22:00 05/24/25 11:36 50 ML Fentanyl Citrate 250 ml @ 2.5 mls/hr Q24H IV 05/23/25 14:00 06/02/25 08:07 2.5 MLS/HR Albumin Human 100 ml @ 100 mls/hr PRN PRN IV 05/24/25 06:45 06/03/25 06:10 100 MLS/HR Enteral Nutritional Formula 1,000 ml 50ML/HR GT 05/24/25 17:30 06/05/25 01:13 1,000 ML Folic Acid 1 mg DAILY PO 05/25/25 10:00 06/05/25 10:38 1 MG Multivitamins 1 tab DAILY PO 05/25/25 10:00 06/05/25 10:37 1 TAB Cyanocobalamin 1,000 mcg DAILY PO 05/25/25 10:00 06/05/25 10:38 1,000 MCG Pyridoxine HCl 50 mg DAILY PO 05/25/25 10:00 06/05/25 10:42 50 MG Ondansetron HCl 4 mg Q4HPRN PRN IV 05/25/25 18:00 Micafungin Sodium 100 mg/Sodium Chloride 100 ml @ 100 mls/hr DAILY IV 05/28/25 10:00 06/05/25 10:18 100 MLS/HR Lactulose 30 ml BID GT 05/28/25 10:00 06/05/25 10:37 30 ML Trimethoprim/ Sulfamethoxazole 0 ml @ 0 mls/hr PER PHARMACY IV 05/28/25 09:45 Trimethoprim/ Sulfamethoxazole 10 ml/Dextrose 260 ml @ 173.333 mls/hr Q12HR IV 05/28/25 22:00 06/05/25 11:32 173.333 MLS/HR Amiodarone HCl 200 mg Q12HR GT 05/29/25 10:00 06/05/25 10:37 200 MG Clopidogrel Bisulfate 75 mg DAILY NG 06/02/25 18:30 Cancel Clopidogrel Bisulfate 75 mg DAILY NG 06/03/25 10:00 06/05/25 10:41 75 MG Albuterol 1.25 mg Q8HP PRN NEB 06/03/25 14:00 06/05/25 14:12 1.25 MG Acetylcysteine 200 mg Q8HR NEB 06/03/25 14:00 06/05/25 14:12 200 MG Melatonin 5 mg HS PO 06/04/25 22:00 06/04/25 21:56 5 MG Laboratory Results Laboratory Tests 06/05/25 04:19 06/05/25 11:35 Chemistry Test 06/05/25 04:19 Calcium Level 9.6 mg/dL (8.7-10.4) Magnesium Level 2.2 mg/dL (1.6-2.6) Urinalysis Test 05/16/25 15:18 05/20/25 01:02 Urine Hyaline Casts Few /lpf (0 - 2) Urine Mucus Few (None Seen) Urine Yeast (Budding) Many /hpf (None Seen) Urine Osmolality 359 mOsm/kg Urine Creatinine 122.44 mg/dL (30.0-125.0) Urine Protein/Creatinine Ratio 1.06 Urine Sodium 17 mmol/L (40-220) L Urine Total Protein 130.0 mg/dL (1-14) H Urine Color Dark yellow (Yellow) Urine Clarity Ex.turbid (Clear) Urine pH 5.5 (5.0-9.0) Urine Specific [place] 1.013 (1.001-1.035) Urine Protein 1+ (Negative) H Urine Ketones Negative (Negative) Urine Blood 1+ /uL (Negative) H Urine Nitrite Negative (Negative) Urine Bilirubin Negative (Negative) Urine Urobilinogen Normal mg/dL (Negative) Urine Leukocyte Esterase 3+ /uL (Negative) Urine RBC 62 /hpf (0 - 3) Urine WBC Clumps Present /hpf (None Seen) Urine Microscopic WBC 2744 /HPF (0-3) H Urine Squamous Epithelial Cells None seen /hpf (<5) Urine Bacteria None seen /hpf (None Seen) Urine Glucose Normal mg/dL (Normal) Blood Gas Results Test 06/05/25 07:02 Arterial Blood pH 7.499 (7.350-7.450) FiO2 % 32.0 Microbiology Microbiology Date/Time Source Procedure Growth Status 05/27/25 15:55 Sputum Gram Stain - Final Complete 05/27/25 15:55 Respiratory Culture - Final Stenotrophomonas maltophilia Complete 05/20/25 18:09 Nose MRSA Screen - Final Complete 05/20/25 01:02 Urine - Leung Port Urine Culture - Final Yeast, not Dulce albicans Complete 05/19/25 08:14 Blood Blood Culture - Final NO GROWTH AFTER 5 DAYS OF INCUBATION. Complete Assessment/Plan Assessment/Plan Impression: Acute hypoxic respiratory failure Dependence on supplemental oxygen Severe sepsis Atrial fibrillation with RVR, rate controlled now Pancytopenia Left lower extremity gangrene with severe peripheral arterial disease Status post left [id number]-greg amputation Acute kidney injury secondary to vasomotor nephropathy On hemodialysis Pneumonia secondary to stenotrophomonas maltophilia, Pseudomonas aeruginosa Complicated cystitis with the use Metabolic encephalopathy Coronary artery disease Thrombocytopenia Events: Patient remains on supplemental oxygen, on 5 LPM NC Taper O2 as tolerated CXR shows diffuse pulmonary vascular congestion; cardiomegaly. Continue antibiotics, antifungals HOB elevation Aspiration precautions Hemodialysis per Nephrology Monitor renal function Monitor electrolytes. Supplement as necessary. Potassium supplementation Monitor ins and outs Nephrology recs appreciated. Pressors for hemodynamic support. On Levophed 6 mcg/min Titrate to keep MAP above 65 mmHg/SBP above 90 mmHg. Tube feeds via NGT for nutritional support Monitor hemoglobin Monitor platelets. Labs and imaging reviewed. Rest of plan as noted below. Plan: S/p extubation Continue supplemental oxygen Titrate to keep O2 sats above 90%. Pressors as necessary for hemodynamic support. Titrate to keep MAP above 65 mmHg/SBP above 90 mmHg. Continue antibiotics and antifungals. F/u cultures. Repeat sputum culture notable for Gram-negative rods. On amiodarone PO. Monitor platelets. Monitor hgb. Monitor renal function due to Acute kidney injury. Monitor electrolytes. Supplement as necessary. Monitor ins and outs HD per Nephrology Nutritional support. Accucheks, ISS. GI/DVT prophylaxis. Condition: Critical Prognosis: Poor given multiple comorbidities. Rest of plan per hospitalist and other consultants. A total of 35 minutes of critical care time was spent reviewing the patient record, examining the patient, making a diagnostic and therapeutic plan, discussing this plan with the medical personnel, following up on diagnostic studies and following the patient for clinical stability excluding any and all procedures. At least 50% of this time was spent in direct, [id number] contact. Thank you for allowing me to participate in this patient's care. Further recommendations will depend on patient's clinical course. Please do not hesitate to contact me if you have any questions or concerns. This medical document was created using an electronic medical record system with [employer] dictation system. Although this document has been carefully reviewed, there may still be some phonetic and typographical errors. These areas are purely typographical due to imperfections of the software programs, and do not reflect any compromise in the patient's medical care. Plan discussed with: Patient, Other (RN Brittany) Date of Service: Jun 03, 2025 Billing Provider: SHALINI BENITES MD Common Visit Codes: [id number] INP/OBS CARE(HIGH), [id number] CARE 30-74 MIN SHALINI BENITES MD Jun 05, 2025 19:48
--- NOTE | 2025-06-05 21:11 | DVHPN2 ---
Subjective DOS: 06/04/2025 Patient seen and examined at bedside. Remains on supplemental oxygen Overnight events reviewed Reviewed: Care Plan, H&P, Labs, Medications, Previous Orders Changes from previous H/P or p: No Changes General: Per HPI Objective Vitals Vital Signs Date Time Temp Pulse Resp B/P (MAP) Pulse Ox O2 Delivery O2 Flow Rate FiO2 06/05/25 20:00 27 95 Nasal Cannula* 2 28 06/05/25 20:00 80 06/05/25 19:45 129/82 (98) 06/05/25 16:00 98.0 98.0 Intake/Output Intake and Output 06/05/25 07:00 Intake Total 924.376 ml Output Total 130 ml Balance 794.376 ml Intake Oral 120 ml IV Total 269.376 ml Tube Feeding 175 ml Other 360 ml Output Urine Total 0 ml Stool Total 130 ml General Appearance: Other (Encephalopathic) HEENT: Atraumatic, PERRLA Lungs: Clear to auscultation, Other (Decreased air entry bilaterally. No wheezing or rhonchi ) Cardiovascular: Normal S1, Normal S2, Other (Atrial fibrillation) Abdomen: Normal bowel sounds, Soft, No tenderness, No hepatospenomegaly Genitourinary: No Apparent Abnormalities (Leung catheter) Musculoskeletal: Other (Unable to assess) Extremities: Normal pulses, Other (Left BKA) Neuro: Other (Awake, following commands.) Skin: Wounds (See nurse notes and pictures) Psych/Mental Status: Other (Unable to assess) Medications Current Medications Medications Dose Ordered Sig/Bandar Route Start Time Stop Time Status Last Admin Dose Admin Acetaminophen 650 mg Q6HP PRN PO 05/04/25 15:00 06/04/25 05:45 650 MG Atorvastatin Calcium 40 mg HS PO 05/17/25 22:00 Hold 05/20/25 22:20 40 MG Sodium Chloride 10 ml QSHIFT@10,22 IV 05/19/25 22:00 06/05/25 10:37 10 ML Norepinephrine Bitartrate 32 mg/ Sodium Chloride 250 ml @ 0.938 mls/ hr Q24H IV 05/21/25 01:00 06/04/25 05:06 1.875 MLS/HR Pantoprazole Sodium 40 mg DAILY IV 05/21/25 10:00 06/05/25 10:37 40 MG Artificial Tears 1 drop Q6HP PRN EACHEYE 05/21/25 05:00 06/03/25 21:42 1 DROP Diagnostic Test (Pha) 1 strip Q6HR 05/23/25 00:00 06/05/25 18:40 1 STRIP Insulin Human Regular FOLLOW SLIDING SCALE Q6HR SC 05/23/25 00:00 06/05/25 18:43 4 UNITS Dextrose 50 ml UD IV 05/22/25 22:00 05/24/25 11:36 50 ML Fentanyl Citrate 250 ml @ 2.5 mls/hr Q24H IV 05/23/25 14:00 06/02/25 08:07 2.5 MLS/HR Albumin Human 100 ml @ 100 mls/hr PRN PRN IV 05/24/25 06:45 06/03/25 06:10 100 MLS/HR Enteral Nutritional Formula 1,000 ml 50ML/HR GT 05/24/25 17:30 06/05/25 01:13 1,000 ML Folic Acid 1 mg DAILY PO 05/25/25 10:00 06/05/25 10:38 1 MG Multivitamins 1 tab DAILY PO 05/25/25 10:00 06/05/25 10:37 1 TAB Cyanocobalamin 1,000 mcg DAILY PO 05/25/25 10:00 06/05/25 10:38 1,000 MCG Pyridoxine HCl 50 mg DAILY PO 05/25/25 10:00 06/05/25 10:42 50 MG Ondansetron HCl 4 mg Q4HPRN PRN IV 05/25/25 18:00 Micafungin Sodium 100 mg/Sodium Chloride 100 ml @ 100 mls/hr DAILY IV 05/28/25 10:00 06/05/25 10:18 100 MLS/HR Lactulose 30 ml BID GT 05/28/25 10:00 06/05/25 10:37 30 ML Trimethoprim/ Sulfamethoxazole 0 ml @ 0 mls/hr PER PHARMACY IV 05/28/25 09:45 Trimethoprim/ Sulfamethoxazole 10 ml/Dextrose 260 ml @ 173.333 mls/hr Q12HR IV 05/28/25 22:00 06/05/25 11:32 173.333 MLS/HR Amiodarone HCl 200 mg Q12HR GT 05/29/25 10:00 06/05/25 10:37 200 MG Clopidogrel Bisulfate 75 mg DAILY NG 06/02/25 18:30 Cancel Clopidogrel Bisulfate 75 mg DAILY NG 06/03/25 10:00 06/05/25 10:41 75 MG Albuterol 1.25 mg Q8HP PRN NEB 06/03/25 14:00 06/05/25 14:12 1.25 MG Acetylcysteine 200 mg Q8HR NEB 06/03/25 14:00 06/05/25 14:12 200 MG Melatonin 5 mg HS PO 06/04/25 22:00 06/04/25 21:56 5 MG Laboratory Results Laboratory Tests 06/05/25 04:19 06/05/25 11:35 Chemistry Test 06/05/25 04:19 Calcium Level 9.6 mg/dL (8.7-10.4) Magnesium Level 2.2 mg/dL (1.6-2.6) Urinalysis Test 05/16/25 15:18 05/20/25 01:02 Urine Hyaline Casts Few /lpf (0 - 2) Urine Mucus Few (None Seen) Urine Yeast (Budding) Many /hpf (None Seen) Urine Osmolality 359 mOsm/kg Urine Creatinine 122.44 mg/dL (30.0-125.0) Urine Protein/Creatinine Ratio 1.06 Urine Sodium 17 mmol/L (40-220) L Urine Total Protein 130.0 mg/dL (1-14) H Urine Color Dark yellow (Yellow) Urine Clarity Ex.turbid (Clear) Urine pH 5.5 (5.0-9.0) Urine Specific [place] 1.013 (1.001-1.035) Urine Protein 1+ (Negative) H Urine Ketones Negative (Negative) Urine Blood 1+ /uL (Negative) H Urine Nitrite Negative (Negative) Urine Bilirubin Negative (Negative) Urine Urobilinogen Normal mg/dL (Negative) Urine Leukocyte Esterase 3+ /uL (Negative) Urine RBC 62 /hpf (0 - 3) Urine WBC Clumps Present /hpf (None Seen) Urine Microscopic WBC 2744 /HPF (0-3) H Urine Squamous Epithelial Cells None seen /hpf (<5) Urine Bacteria None seen /hpf (None Seen) Urine Glucose Normal mg/dL (Normal) Blood Gas Results Test 06/05/25 07:02 Arterial Blood pH 7.499 (7.350-7.450) FiO2 % 32.0 Microbiology Microbiology Date/Time Source Procedure Growth Status 05/27/25 15:55 Sputum Gram Stain - Final Complete 05/27/25 15:55 Respiratory Culture - Final Stenotrophomonas maltophilia Complete 05/20/25 18:09 Nose MRSA Screen - Final Complete 05/20/25 01:02 Urine - [place] Urine Culture - Final Yeast, not Dulce albicans Complete 05/19/25 08:14 Blood Blood Culture - Final NO GROWTH AFTER 5 DAYS OF INCUBATION. Complete Assessment/Plan Assessment/Plan Impression: Acute hypoxic respiratory failure Dependence on supplemental oxygen Severe sepsis Atrial fibrillation with RVR, rate controlled now Pancytopenia Left lower extremity gangrene with severe peripheral arterial disease Status post left [id number] amputation Acute kidney injury secondary to vasomotor nephropathy On hemodialysis Pneumonia secondary to stenotrophomonas maltophilia, Pseudomonas aeruginosa Complicated cystitis with the use Metabolic encephalopathy Coronary artery disease Thrombocytopenia Events: Patient remains on supplemental oxygen, on 2 LPM NC Taper O2 as tolerated improving oxygen requirements Continue antibiotics, antifungals Continue bronchodilators HOB elevation Aspiration precautions Hemodialysis per Nephrology Monitor renal function Monitor electrolytes. Supplement as necessary. Monitor ins and outs Nephrology recs appreciated. Pressors (Levophed) for hemodynamic support. Titrate to keep MAP above 65 mmHg/SBP above 90 mmHg. Aspiration event, passed swallow eval NPO. Tube feeds via NGT for nutritional support Monitor hemoglobin - pt is s/p 1 unit PRBC. Monitor platelets. PT evaluation Labs and imaging reviewed. Rest of plan as noted below. Plan: S/p extubation Continue supplemental oxygen Titrate to keep O2 sats above 90%. Pressors as necessary for hemodynamic support. Titrate to keep MAP above 65 mmHg/SBP above 90 mmHg. Continue antibiotics and antifungals. F/u cultures. Repeat sputum culture notable for Gram-negative rods. On amiodarone PO. Monitor platelets. Monitor hgb. Monitor renal function due to Acute kidney injury. Monitor electrolytes. Supplement as necessary. Monitor ins and outs HD per Nephrology Nutritional support. Accucheks, ISS. GI/DVT prophylaxis. Condition: Critical Prognosis: Poor given multiple comorbidities. Rest of plan per hospitalist and other consultants. A total of 35 minutes of critical care time was spent reviewing the patient record, examining the patient, making a diagnostic and therapeutic plan, discussing this plan with the medical personnel, following up on diagnostic studies and following the patient for clinical stability excluding any and all procedures. At least 50% of this time was spent in direct, [id number] contact. Thank you for allowing me to participate in this patient's care. Further recommendations will depend on patient's clinical course. Please do not hesitate to contact me if you have any questions or concerns. This medical document was created using an electronic medical record system with [employer] dictation system. Although this document has been carefully reviewed, there may still be some phonetic and typographical errors. These areas are purely typographical due to imperfections of the software programs, and do not reflect any compromise in the patient's medical care. Plan discussed with: Patient, Other (RN) Date of Service: Jun 04, 2025 Billing Provider: SHALINI BENITES MD Common Visit Codes: [id number] INP/OBS CARE(HIGH), [id number] CARE 30-74 MIN SHALINI BENITES MD Jun 05, 2025 21:11
--- NOTE | 2025-06-05 21:16 | DVHPN2 ---
Subjective DOS: 06/05/2025 Patient seen and examined at bedside. Remains on supplemental oxygen Overnight events reviewed Reviewed: Care Plan, H&P, Labs, Medications, Previous Orders Changes from previous H/P or p: No Changes General: Per HPI Objective Vitals Vital Signs Date Time Temp Pulse Resp B/P (MAP) Pulse Ox O2 Delivery O2 Flow Rate FiO2 06/05/25 20:00 27 95 Nasal Cannula* 2 28 06/05/25 20:00 80 06/05/25 19:45 129/82 (98) 06/05/25 16:00 98.0 98.0 Intake/Output Intake and Output 06/05/25 07:00 Intake Total 924.376 ml Output Total 130 ml Balance 794.376 ml Intake Oral 120 ml IV Total 269.376 ml Tube Feeding 175 ml Other 360 ml Output Urine Total 0 ml Stool Total 130 ml General Appearance: Other (Encephalopathic) HEENT: Atraumatic, PERRLA Lungs: Clear to auscultation, Other (Decreased air entry bilaterally. No wheezing or rhonchi ) Cardiovascular: Normal S1, Normal S2, Other (Atrial fibrillation) Abdomen: Normal bowel sounds, Soft, No tenderness, No hepatospenomegaly Genitourinary: No Apparent Abnormalities (Leung catheter) Musculoskeletal: Other (Unable to assess) Extremities: Normal pulses, Other (Left BKA) Neuro: Other (Awake, following commands.) Skin: Wounds (See nurse notes and pictures) Psych/Mental Status: Other (Unable to assess) Medications Current Medications Medications Dose Ordered Sig/Bandar Route Start Time Stop Time Status Last Admin Dose Admin Acetaminophen 650 mg Q6HP PRN PO 05/04/25 15:00 06/04/25 05:45 650 MG Atorvastatin Calcium 40 mg HS PO 05/17/25 22:00 Hold 05/20/25 22:20 40 MG Sodium Chloride 10 ml QSHIFT@10,22 IV 05/19/25 22:00 06/05/25 10:37 10 ML Norepinephrine Bitartrate 32 mg/ Sodium Chloride 250 ml @ 0.938 mls/ hr Q24H IV 05/21/25 01:00 06/04/25 05:06 1.875 MLS/HR Pantoprazole Sodium 40 mg DAILY IV 05/21/25 10:00 06/05/25 10:37 40 MG Artificial Tears 1 drop Q6HP PRN EACHEYE 05/21/25 05:00 06/03/25 21:42 1 DROP Diagnostic Test (Pha) 1 strip Q6HR 05/23/25 00:00 06/05/25 18:40 1 STRIP Insulin Human Regular FOLLOW SLIDING SCALE Q6HR SC 05/23/25 00:00 06/05/25 18:43 4 UNITS Dextrose 50 ml UD IV 05/22/25 22:00 05/24/25 11:36 50 ML Fentanyl Citrate 250 ml @ 2.5 mls/hr Q24H IV 05/23/25 14:00 06/02/25 08:07 2.5 MLS/HR Albumin Human 100 ml @ 100 mls/hr PRN PRN IV 05/24/25 06:45 06/03/25 06:10 100 MLS/HR Enteral Nutritional Formula 1,000 ml 50ML/HR GT 05/24/25 17:30 06/05/25 01:13 1,000 ML Folic Acid 1 mg DAILY PO 05/25/25 10:00 06/05/25 10:38 1 MG Multivitamins 1 tab DAILY PO 05/25/25 10:00 06/05/25 10:37 1 TAB Cyanocobalamin 1,000 mcg DAILY PO 05/25/25 10:00 06/05/25 10:38 1,000 MCG Pyridoxine HCl 50 mg DAILY PO 05/25/25 10:00 06/05/25 10:42 50 MG Ondansetron HCl 4 mg Q4HPRN PRN IV 05/25/25 18:00 Micafungin Sodium 100 mg/Sodium Chloride 100 ml @ 100 mls/hr DAILY IV 05/28/25 10:00 06/05/25 10:18 100 MLS/HR Lactulose 30 ml BID GT 05/28/25 10:00 06/05/25 10:37 30 ML Trimethoprim/ Sulfamethoxazole 0 ml @ 0 mls/hr PER PHARMACY IV 05/28/25 09:45 Trimethoprim/ Sulfamethoxazole 10 ml/Dextrose 260 ml @ 173.333 mls/hr Q12HR IV 05/28/25 22:00 06/05/25 11:32 173.333 MLS/HR Amiodarone HCl 200 mg Q12HR GT 05/29/25 10:00 06/05/25 10:37 200 MG Clopidogrel Bisulfate 75 mg DAILY NG 06/02/25 18:30 Cancel Clopidogrel Bisulfate 75 mg DAILY NG 06/03/25 10:00 06/05/25 10:41 75 MG Albuterol 1.25 mg Q8HP PRN NEB 06/03/25 14:00 06/05/25 14:12 1.25 MG Acetylcysteine 200 mg Q8HR NEB 06/03/25 14:00 06/05/25 14:12 200 MG Melatonin 5 mg HS PO 06/04/25 22:00 06/04/25 21:56 5 MG Laboratory Results Laboratory Tests 06/05/25 04:19 06/05/25 11:35 Chemistry Test 06/05/25 04:19 Calcium Level 9.6 mg/dL (8.7-10.4) Magnesium Level 2.2 mg/dL (1.6-2.6) Urinalysis Test 05/16/25 15:18 05/20/25 01:02 Urine Hyaline Casts Few /lpf (0 - 2) Urine Mucus Few (None Seen) Urine Yeast (Budding) Many /hpf (None Seen) Urine Osmolality 359 mOsm/kg Urine Creatinine 122.44 mg/dL (30.0-125.0) Urine Protein/Creatinine Ratio 1.06 Urine Sodium 17 mmol/L (40-220) L Urine Total Protein 130.0 mg/dL (1-14) H Urine Color Dark yellow (Yellow) Urine Clarity Ex.turbid (Clear) Urine pH 5.5 (5.0-9.0) Urine Specific [place] 1.013 (1.001-1.035) Urine Protein 1+ (Negative) H Urine Ketones Negative (Negative) Urine Blood 1+ /uL (Negative) H Urine Nitrite Negative (Negative) Urine Bilirubin Negative (Negative) Urine Urobilinogen Normal mg/dL (Negative) Urine Leukocyte Esterase 3+ /uL (Negative) Urine RBC 62 /hpf (0 - 3) Urine WBC Clumps Present /hpf (None Seen) Urine Microscopic WBC 2744 /HPF (0-3) H Urine Squamous Epithelial Cells None seen /hpf (<5) Urine Bacteria None seen /hpf (None Seen) Urine Glucose Normal mg/dL (Normal) Blood Gas Results Test 06/05/25 07:02 Arterial Blood pH 7.499 (7.350-7.450) FiO2 % 32.0 Microbiology Microbiology Date/Time Source Procedure Growth Status 05/27/25 15:55 Sputum Gram Stain - Final Complete 05/27/25 15:55 Respiratory Culture - Final Stenotrophomonas maltophilia Complete 05/20/25 18:09 Nose MRSA Screen - Final Complete 05/20/25 01:02 Urine - [place] Urine Culture - Final Yeast, not Dulce albicans Complete 05/19/25 08:14 Blood Blood Culture - Final NO GROWTH AFTER 5 DAYS OF INCUBATION. Complete Assessment/Plan Assessment/Plan Impression: Acute hypoxic respiratory failure Dependence on supplemental oxygen Severe sepsis Atrial fibrillation with RVR, rate controlled now Pancytopenia Left lower extremity gangrene with severe peripheral arterial disease Status post left [id number] amputation Acute kidney injury secondary to vasomotor nephropathy On hemodialysis Pneumonia secondary to stenotrophomonas maltophilia, Pseudomonas aeruginosa Complicated cystitis with the use Metabolic encephalopathy Coronary artery disease Thrombocytopenia Events: Patient remains on supplemental oxygen, on 2 LPM [place] Taper O2 as tolerated improving oxygen requirements Continue antibiotics, antifungals Continue bronchodilators HOB elevation Aspiration precautions Hemodialysis per Nephrology Monitor renal function Monitor electrolytes. Supplement as necessary. Monitor ins and outs Nephrology recs appreciated. Note, pt passed swallow eval but had some aspiration NPO. Tube feeds via NGT for nutritional support Monitor hemoglobin (currently 7.3 -->8.8 g/dL) S/p 1 unit PRBC. Monitor platelets. PT evaluation Labs and imaging reviewed. Rest of plan as noted below. Plan: S/p extubation Continue supplemental oxygen Titrate to keep O2 sats above 90%. Pressors as necessary for hemodynamic support. Titrate to keep MAP above 65 mmHg/SBP above 90 mmHg. Continue antibiotics and antifungals. F/u cultures. Repeat sputum culture notable for Gram-negative rods. On amiodarone PO. Monitor platelets. Monitor hgb. Monitor renal function due to Acute kidney injury. Monitor electrolytes. Supplement as necessary. Monitor ins and outs HD per Nephrology Nutritional support. Accucheks, ISS. GI/DVT prophylaxis. Condition: Critical Prognosis: Poor given multiple comorbidities. Rest of plan per hospitalist and other consultants. A total of 35 minutes of critical care time was spent reviewing the patient record, examining the patient, making a diagnostic and therapeutic plan, discussing this plan with the medical personnel, following up on diagnostic studies and following the patient for clinical stability excluding any and all procedures. At least 50% of this time was spent in direct, [id number] contact. Thank you for allowing me to participate in this patient's care. Further recommendations will depend on patient's clinical course. Please do not hesitate to contact me if you have any questions or concerns. This medical document was created using an electronic medical record system with [employer] dictation system. Although this document has been carefully reviewed, there may still be some phonetic and typographical errors. These areas are purely typographical due to imperfections of the software programs, and do not reflect any compromise in the patient's medical care. Plan discussed with: Patient, Other (AIME Patel) Date of Service: Jun 05, 2025 Billing Provider: SHALINI BENITES MD Common Visit Codes: [id number] INP/OBS CARE(HIGH), [id number] CARE 30-74 MIN SHALINI BENITES MD Jun 05, 2025 21:16
[2025-06-06] VITALS (70 sets, daily range): BP systolic 87–134; BP diastolic 40–75; PULSE 59–85; RESP 18–32; TEMP 96–100.4; O2SAT 81–100
[2025-06-06 00:36] LABS: Hematocrit 26.5 % (41.0-53.0); Hemoglobin 9.0 g/dL (13.5-17.5)
[2025-06-06 04:25] LABS: Hematocrit 26.7 % (41.0-53.0); Hemoglobin 9.3 g/dL (13.5-17.5); Mean Corpuscular Hemoglobin 33.0 pg (28.0-32.0); Mean Corpuscular Volume 95.3 fL (80.0-100.0); Nucleated Red Blood Cells % 0.9 %
[2025-06-06 04:54] LABS: Alanine Aminotransferase 22 U/L (7-40); Anion Gap 13 (5-15); BUN/Creatinine Ratio 9.5 (10.0-20.0); Calcium 9.9 mg/dL (8.7-10.4); Carbon Dioxide 27 mmol/L (20-31); Sodium 138 mmol/L (136-145)
[2025-06-06 04:55] LABS: Albumin 4.0 g/dL (3.2-4.8); Total Protein 6.5 g/dL (5.7-8.2)
[2025-06-06 04:56] LABS: Alkaline Phosphatase 143 U/L (46-116); Blood Urea Nitrogen 24 mg/dL (9-23); Chloride 98 mmol/L (98-107); Glucose 186 mg/dL (74-106); Potassium 3.4 mmol/L (3.5-5.1)
[2025-06-06 04:57] LABS: Bilirubin, Total 1.9 mg/dL (0.2-1.0)
[2025-06-06 07:09] LABS: Base Excess 0.8 mmol/L (-2.0-3.0)
--- NOTE | 2025-06-06 07:49 | ECG ---
[facility] Test Date: 2025-06-04 Test Time: 06:10:22 Pat Name: RAJESH ELIAS Department: icu Room: [address] [place] [address] Gender: M Assistant Media Planner: RN : 1950 Requested By: DANA MERCADO Order Number: [id number] Reading MD: Kelton Ji Measurements Intervals [place] Rate: 88 P: 5 ME: 190 QRS: -80 QRSD: 155 T: 88 QT: 403 QTc: 488 Interpretive Statements Sinus rhythm RBBB and LAFB Electronically Signed On 06-09-2025 21:05:44 PDT by Kelton Ji Please click the below link to view image of tracing.
[2025-06-06] MEDS: POTASSIUM CHL 20MEQ/100ML 100 ML IV SCH (09:37)
--- NOTE | 2025-06-06 10:55 | DVHPNRES ---
Progress Note Date Seen: Jun 06, 2025 Resident Creating Document: FABRICIO CALVIN RESIDENT Has the PT tested + for MRSA If YES, has PT been informed?: No Medical Necessity Reason Pt with a Central, PICC or Fol: Yes The following are medically ne: PICC Line, Leung Catheter Subjective Review of Systems * Patient clinically improved and downgraded to KENJI today. * On NC 2 L/min with SpO? 97%; RR in low 20s; breathing comfortably. * Hemodynamics stable: BP 114/54. * Urine output minimal: 30 mL/24h. Leung catheter removed given anuric state and ongoing HD dependence. * Stool output: 155 mL. * Labs: * ABG: pH 7.49 (alkalemic), PCO? 31.5 (low), PO? 61.1 (low), HCO? 23.7 (normal) ? respiratory alkalosis with hypoxemia. * Hgb 9.3 g/dL, improved from 8.8 yesterday. * K 3.4 mmol/L, repleted. * BUN 24, Cr 2.52 (renal failure baseline). * Imaging: CXR unchangedpersistent pulmonary vascular congestion, cardiomegaly, bilateral effusions. * EKG: obtained for QT assessment, QT interval normal (previously prolonged). * Consults: IR consulted for tunneled dialysis catheter placement (target 12 KD). * Nutrition: continuing tube feeds; tolerating. * Patient remains on current medications including amiodarone, clopidogrel, TMP- SMX, micafungin, NAC, albuterol, pantoprazole, insulin, vitamins, and supportive care. * Neuro: Awake, follows commands, interactive. * Resp: Mild dyspnea at baseline, comfortable on NC. * CV: No chest pain, palpitations intermittent, hemodynamically stable. * GI: Tolerating tube feeds, passing stool. * : Minimal urine output, on HD. * Skin/Ext: Mild edema; left BKA stump CDI. * ID: Afebrile, no chills. Objective vital signs Vital Sign Date Time Temp Pulse Resp B/P (MAP) Pulse Ox O2 Delivery O2 Flow Rate FiO2 06/06/25 10:00 73 27 109/55 (73) 98 06/06/25 10:00 Nasal Cannula* 2 28 06/06/25 08:00 96.0 96.0 Total Intake and Output 06/05/25 06/05/25 06/06/25 15:00 23:00 07:00 Intake Total 359.96 ml 326.876 ml 402 ml Output Total 35 ml 20 ml Balance 359.96 ml 291.876 ml 382 ml medications Current Medications Medications Dose Ordered Sig/Bandar Route Start Time Stop Time Status Last Admin Dose Admin Acetaminophen 650 mg Q6HP PRN PO 05/04/25 15:00 06/04/25 05:45 650 MG Atorvastatin Calcium 40 mg HS PO 05/17/25 22:00 Hold 05/20/25 22:20 40 MG Sodium Chloride 10 ml QSHIFT@10,22 IV 05/19/25 22:00 06/06/25 09:38 10 ML Norepinephrine Bitartrate 32 mg/ Sodium Chloride 250 ml @ 0.938 mls/ hr Q24H IV 05/21/25 01:00 06/05/25 21:11 0.938 MLS/HR Pantoprazole Sodium 40 mg DAILY IV 05/21/25 10:00 06/06/25 09:36 40 MG Artificial Tears 1 drop Q6HP PRN EACHEYE 05/21/25 05:00 06/03/25 21:42 1 DROP Diagnostic Test (Pha) 1 strip Q6HR 05/23/25 00:00 06/06/25 05:37 1 STRIP Insulin Human Regular FOLLOW SLIDING SCALE Q6HR SC 05/23/25 00:00 06/06/25 05:39 8 UNITS Dextrose 50 ml UD IV 05/22/25 22:00 05/24/25 11:36 50 ML Fentanyl Citrate 250 ml @ 2.5 mls/hr Q24H IV 05/23/25 14:00 06/02/25 08:07 2.5 MLS/HR Albumin Human 100 ml @ 100 mls/hr PRN PRN IV 05/24/25 06:45 06/03/25 06:10 100 MLS/HR Enteral Nutritional Formula 1,000 ml 50ML/HR GT 05/24/25 17:30 06/06/25 00:22 1,000 ML Folic Acid 1 mg DAILY PO 05/25/25 10:00 06/06/25 09:36 1 MG Multivitamins 1 tab DAILY PO 05/25/25 10:00 06/06/25 09:36 1 TAB Cyanocobalamin 1,000 mcg DAILY PO 05/25/25 10:00 06/06/25 09:36 1,000 MCG Pyridoxine HCl 50 mg DAILY PO 05/25/25 10:00 06/06/25 09:38 50 MG Ondansetron HCl 4 mg Q4HPRN PRN IV 05/25/25 18:00 Micafungin Sodium 100 mg/Sodium Chloride 100 ml @ 100 mls/hr DAILY IV 05/28/25 10:00 06/06/25 09:37 100 MLS/HR Lactulose 30 ml BID GT 05/28/25 10:00 06/06/25 09:36 30 ML Trimethoprim/ Sulfamethoxazole 0 ml @ 0 mls/hr PER PHARMACY IV 05/28/25 09:45 Trimethoprim/ Sulfamethoxazole 10 ml/Dextrose 260 ml @ 173.333 mls/hr Q12HR IV 05/28/25 22:00 06/05/25 23:09 173.333 MLS/HR Amiodarone HCl 200 mg Q12HR GT 05/29/25 10:00 06/06/25 09:36 200 MG Clopidogrel Bisulfate 75 mg DAILY NG 06/02/25 18:30 Cancel Clopidogrel Bisulfate 75 mg DAILY NG 06/03/25 10:00 06/05/25 10:41 75 MG Albuterol 1.25 mg Q8HP PRN NEB 06/03/25 14:00 06/06/25 06:35 1.25 MG Acetylcysteine 200 mg Q8HR NEB 06/03/25 14:00 06/06/25 06:34 200 MG Melatonin 5 mg HS PO 06/04/25 22:00 06/05/25 21:12 5 MG Potassium Chloride 100 ml @ 50 mls/hr Q2H IV 06/06/25 07:45 06/06/25 11:44 06/06/25 09:37 50 MLS/HR Examination * General: Awake, extubated, stable on NC. * HEENT: NC in place; mucosa moist. * CV: Regular rhythm, normal heart sounds, no new murmurs. * Resp: Coarse breath sounds at bases, decreased air entry at lung bases, no acute distress. * Abdomen: Soft, nondistended, bowel sounds present, GT in place. * Extremities: 1+ edema, left BKA stump intact. * Neuro: Alert, oriented, non-focal exam. * Skin/Lines: PICC line present; Leung removed today. laboratory and microbiology Laboratory Tests 06/06/25 04:12 Test 06/06/25 04:12 Range/Units Serum Glucose 186 H 74-106 mg/dL Microbiology Date/Time Source Procedure Growth Status 05/27/25 15:55 Sputum Gram Stain - Final Complete 05/27/25 15:55 Respiratory Culture - Final Stenotrophomonas maltophilia Complete 05/20/25 18:09 Nose MRSA Screen - Final Complete 05/20/25 01:02 Urine - Leung Port Urine Culture - Final Yeast, not Dulce albicans Complete 05/19/25 08:14 Blood Blood Culture - Final NO GROWTH AFTER 5 DAYS OF INCUBATION. Complete Problem List/Assessment/Plan Problem List/Assessment/Plan Assessment Critical, complex multi-organ failure patient. 1. Severe Sepsis / Pneumonia due to MDR organisms (Stenotrophomonas, Pseudomonas, Enterobacter). On broad antimicrobials (Ciprofloxacin, TMP-SMX, Micafungin).POA 2. Acute hypoxic respiratory failure with post-extubation failureactive management due to Pneumonia 3. 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 Volume overload / Edema due to oligoanuria and CHF POA 5. Atrial fibrillation previously on amiodarone drip; now rate-controlled. 6. Acute on Chronic HFpEF NSTEMI stable, compensated. due to sepsis 7. PAD with Left foot gangrene s/p BKA stable surgical site. POA 8. Thrombocytopenia & Anemia likely multifactorial (sepsis, critical illness, marrow suppression, renal disease). Received platelets. 9. Metabolic encephalopathy improving; patient follows commands. 10. History of DVT prophylaxis complicated by thrombocytopenia. 11. Poor prognosis given multi-organ dysfunction, infections, dialysis- dependence. Plan 1) Acute hypoxic respiratory failure improving, post-extubation * Stable on NC 2 L with SpO? 97%; ABG: mild respiratory alkalosis with hypoxemia. * Plan: Continue NC; wean O2 as tolerated to keep SpO? >92%. Continue pulmonary hygiene, RT-driven pathway. Daily ABG/CXR until stabilized in KENJI. * CDI: Acute hypoxic respiratory failure (CORRECTION), improving. 2) Sepsis due to MDR pneumonia improving * Afebrile, WBC normal. On TMP-SMX + micafungin; ciprofloxacin previously discontinued for QT prolongation. * Plan: Continue antibiotics per ID. Monitor cultures and fever curve. * CDI: Severe sepsis with acute organ dysfunction (resp failure, AD), now resolving. 3) AD on CKD IV, HD dependent * Cr 2.52, BUN 24; minimal urine output (30 mL/24h). Leung removed. * Plan: Continue scheduled HD; IR consulted for tunneled dialysis catheter placement. * CDI: AD superimposed on CKD IV, dialysis dependent. 4) Volume overload with pulmonary vascular congestion * CXR: persistent cardiomegaly, congestion, effusions. UF tolerated previously. * Plan: Continue UF during HD as tolerated; daily weights, strict I/O, repeat CXR. 5) Anemia of CKD/critical illness * Hgb 9.3 today, up from 8.8 yesterday; stable. * Plan: Monitor CBC daily; transfuse PRBC if <7 or symptomatic. Continue vitamins (B6, B12, folate). 6) Severe thrombocytopenia * Platelets ~25K. * Plan: Monitor daily CBC; transfuse platelets if <10K or <2030K with bleeding/procedures. Hold anticoagulation; SCDs only. 7) Atrial fibrillation with history of prolonged QTc * EKG today: QT interval normalized; telemetry stable. * Plan: Continue amiodarone 200 mg q12h; daily EKG while on therapy. Maintain K >4, Mg >2. Avoid QT-prolonging agents. 8) HFpEF with cardiomegaly * Stable BP 114/54 on minimal norepinephrine. * Plan: Wean norepinephrine as tolerated; goal MAP ?65. Optimize volume status with HD. 9) Nutrition / GI * On tube feeds (Glucerna), tolerating. Stool 155 mL. * Plan: Continue TF; monitor residuals. Protonix daily for stress prophylaxis. Adjust lactulose based on bowel function. 10) Complicated candiduria * Continue micafungin; ID to consider fluconazole if susceptible. Leung catheter removed today. 11) Prophylaxis & Supportive Care * DVT: SCDs only (Plt <50K). * GI: PPI daily. * Skin: Daily stump/skin checks, pressure injury prevention. * Bundle care: CLABSI/CAUTI prevention; daily device review. Case discussed in detail with the attending physician, including the clinical presentation, diagnostic workup, and comprehensive management plan. The duration of time spent in direct critical care management of this patient, including evaluation, review of clinical data, coordination of care, and decision-making, was 45 minutes. Plan discussed with: Patient My Orders My Orders Orders - FABRICIO CALVIN RESIDENT Procedure Category Date Status Time Abg W/ Co-Ox RT 06/06/25 Logged 04:00 Chest Portable XY 06/05/25 Resulted 14:57 Potassium Chl PHA 06/06/25 In Process 20meq/100ml 07:45 Transfer Orders XFER 06/06/25 Transmitted 09:45 Electrocardigram EKG 06/06/25 Logged 09:45 Electrocardigram EKG 06/06/25 Logged 10:45 Discontinue Leung SALVADOR 06/06/25 In Process Catheter 09:45 * Radiologist Consult CONS 06/06/25 Transmitted 09:54 Dietary Evaluation Review Comments: 1) Advance to [facility] 75gm + cardiac diet 2) Armen 1 pk BID, MVI w/ minerals 1 tab daily, VitC 500mg BID, Zinc sulfate 220mg BID x 10 days 3) Monitor NPO status, lab values, weight trend, and I/O Expected Outcomes/Goals: To meet >75% estimated needs Wound to improve Fu 2-3 days Date of Service: Jun 06, 2025 Billing Provider: LAUREN MA MD Common Visit Codes: [id number] CARE 30-74 MIN FABRICIO CALVIN RESIDENT Jun 06, 2025 10:55 LAUREN MA MD Jun 08, 2025 22:24
[2025-06-06 11:02] LABS: Hemoglobin 9.4 g/dL (13.5-17.5)
[2025-06-06 11:05] LABS: Hematocrit 27.3 % (41.0-53.0)
--- NOTE | 2025-06-06 14:14 | ECG ---
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
--- NOTE | 2025-06-06 21:52 | DVHPN2 ---
Progress Note Date Seen: Jun 06, 2025 Has the PT tested + for MRSA If YES, has PT been informed?: No Medical Necessity Reason Pt with a Central, PICC or Fol: Yes The following are medically ne: PICC Line, Leung Catheter Subjective Patient reports: No new complaints Review of Systems: Deferred Objective vital signs Vital Sign Date Time Temp Pulse Resp B/P (MAP) Pulse Ox O2 Delivery O2 Flow Rate FiO2 06/06/25 21:30 73 25 107/61 (76) 98 06/06/25 20:00 Nasal Cannula* 4 36 06/06/25 20:00 97.6 97.6 Total Intake and Output 06/05/25 06/05/25 06/06/25 15:00 23:00 07:00 Intake Total 359.96 ml 326.876 ml 402 ml Output Total 35 ml 20 ml Balance 359.96 ml 291.876 ml 382 ml medications Current Medications Medications Dose Ordered Sig/Bandar Route Start Time Stop Time Status Last Admin Dose Admin Acetaminophen 650 mg Q6HP PRN PO 05/04/25 15:00 06/04/25 05:45 650 MG Atorvastatin Calcium 40 mg HS PO 05/17/25 22:00 Hold 05/20/25 22:20 40 MG Sodium Chloride 10 ml QSHIFT@10,22 IV 05/19/25 22:00 06/06/25 21:04 10 ML Norepinephrine Bitartrate 32 mg/ Sodium Chloride 250 ml @ 0.938 mls/ hr Q24H IV 05/21/25 01:00 06/05/25 21:11 0.938 MLS/HR Pantoprazole Sodium 40 mg DAILY IV 05/21/25 10:00 06/06/25 09:36 40 MG Artificial Tears 1 drop Q6HP PRN EACHEYE 05/21/25 05:00 06/03/25 21:42 1 DROP Diagnostic Test (Pha) 1 strip Q6HR 05/23/25 00:00 06/06/25 17:38 1 STRIP Insulin Human Regular FOLLOW SLIDING SCALE Q6HR SC 05/23/25 00:00 06/06/25 17:39 4 UNITS Dextrose 50 ml UD IV 05/22/25 22:00 05/24/25 11:36 50 ML Fentanyl Citrate 250 ml @ 2.5 mls/hr Q24H IV 05/23/25 14:00 06/02/25 08:07 2.5 MLS/HR Albumin Human 100 ml @ 100 mls/hr PRN PRN IV 05/24/25 06:45 06/03/25 06:10 100 MLS/HR Enteral Nutritional Formula 1,000 ml 50ML/HR GT 05/24/25 17:30 06/06/25 00:22 1,000 ML Folic Acid 1 mg DAILY PO 05/25/25 10:00 06/06/25 09:36 1 MG Multivitamins 1 tab DAILY PO 05/25/25 10:00 06/06/25 09:36 1 TAB Cyanocobalamin 1,000 mcg DAILY PO 05/25/25 10:00 06/06/25 09:36 1,000 MCG Pyridoxine HCl 50 mg DAILY PO 05/25/25 10:00 06/06/25 09:38 50 MG Ondansetron HCl 4 mg Q4HPRN PRN IV 05/25/25 18:00 Micafungin Sodium 100 mg/Sodium Chloride 100 ml @ 100 mls/hr DAILY IV 05/28/25 10:00 06/06/25 09:37 100 MLS/HR Lactulose 30 ml BID GT 05/28/25 10:00 06/06/25 21:04 30 ML Trimethoprim/ Sulfamethoxazole 0 ml @ 0 mls/hr PER PHARMACY IV 05/28/25 09:45 Trimethoprim/ Sulfamethoxazole 10 ml/Dextrose 260 ml @ 173.333 mls/hr Q12HR IV 05/28/25 22:00 06/06/25 21:04 173.333 MLS/HR Amiodarone HCl 200 mg Q12HR GT 05/29/25 10:00 06/06/25 21:04 200 MG Clopidogrel Bisulfate 75 mg DAILY NG 06/02/25 18:30 Cancel Clopidogrel Bisulfate 75 mg DAILY NG 06/03/25 10:00 06/05/25 10:41 75 MG Albuterol 1.25 mg Q8HP PRN NEB 06/03/25 14:00 06/06/25 14:27 1.25 MG Acetylcysteine 200 mg Q8HR NEB 06/03/25 14:00 06/06/25 14:26 200 MG Melatonin 5 mg HS PO 06/04/25 22:00 06/06/25 21:05 5 MG Examination: LUNGS:Abnormal, MSK:Abnormal, SKIN:Abnormal laboratory and microbiology Laboratory Tests 06/06/25 10:45 06/06/25 04:12 Test 06/06/25 04:12 Range/Units Serum Glucose 186 H 74-106 mg/dL Microbiology Date/Time Source Procedure Growth Status 05/27/25 15:55 Sputum Gram Stain - Final Complete 05/27/25 15:55 Respiratory Culture - Final Stenotrophomonas maltophilia Complete 05/20/25 18:09 Nose MRSA Screen - Final Complete 05/20/25 01:02 Urine - Leung Port Urine Culture - Final Yeast, not Dulce albicans Complete 05/19/25 08:14 Blood Blood Culture - Final NO GROWTH AFTER 5 DAYS OF INCUBATION. Complete Problem List/Assessment/Plan Problem List/Assessment/Plan Acute kidney injury superimposed Chronic Kidney Disease stage IV secondary hemodynamic mediated, FeNa < 1% Chronic kidney disease stage IV followed by Dr. Ponce Gangrene left foot, status post left below-knee amputation 05/20 Left lower extremity DVT Ventilator-dependent hypoxic respiratory failure intubated /extubated Diabetes mellitus type 2 Chronic diastolic Congestive heart failure NSTEMI Hyponatremia due to excess H2O Dropping hemoglobin Anemia due to blood loss Metabolic acidosis Septic shock History of testicular cancer Cellulitis lower extremity thrombocytopenia Recommendations HD tomorrow Epogen with dialysis Guarded prognosis Chair time arrangement not being initiated yet pending final disposition tunneled cath pending Plan discussed with: Patient Dietary Evaluation Review Comments: 1) Advance to [facility] 75gm + cardiac diet 2) Armen 1 pk BID, MVI w/ minerals 1 tab daily, VitC 500mg BID, Zinc sulfate 220mg BID x 10 days 3) Monitor NPO status, lab values, weight trend, and I/O Expected Outcomes/Goals: To meet >75% estimated needs Wound to improve Fu 2-3 days SHANTANU BECK MD Jun 06, 2025 21:52
[2025-06-06 22:44] LABS: Hematocrit 25.5 % (41.0-53.0); Hemoglobin 8.7 g/dL (13.5-17.5)
--- NOTE | 2025-06-06 23:03 | DVHPN2 ---
Subjective DOS: 06/06/2025 Patient seen and examined at bedside. Remains on supplemental oxygen Overnight events reviewed Reviewed: Care Plan, H&P, Labs, Medications, Previous Orders Changes from previous H/P or p: No Changes General: Per HPI Objective Vitals Vital Signs Date Time Temp Pulse Resp B/P (MAP) Pulse Ox O2 Delivery O2 Flow Rate FiO2 06/06/25 22:27 68 28 98 06/06/25 22:19 Nasal Cannula* 4 36 06/06/25 21:30 107/61 (76) 06/06/25 20:00 97.6 97.6 Intake/Output Intake and Output 06/06/25 07:00 Intake Total 1088.836 ml Output Total 55 ml Balance 1033.836 ml Intake Oral 160 ml IV Total 621.836 ml Tube Feeding 307 ml Output Urine Total 30 ml Stool Total 25 ml General Appearance: Other (Encephalopathic) HEENT: Atraumatic, PERRLA Lungs: Clear to auscultation, Other (Decreased air entry bilaterally. No wheezing or rhonchi ) Cardiovascular: Normal S1, Normal S2, Other (Atrial fibrillation) Abdomen: Normal bowel sounds, Soft, No tenderness, No hepatospenomegaly Genitourinary: No Apparent Abnormalities (Leung catheter) Musculoskeletal: Other (Unable to assess) Extremities: Normal pulses, Other (Left BKA) Neuro: Other (Awake, following commands.) Skin: Wounds (See nurse notes and pictures) Psych/Mental Status: Other (Unable to assess) Medications Current Medications Medications Dose Ordered Sig/Bandar Route Start Time Stop Time Status Last Admin Dose Admin Acetaminophen 650 mg Q6HP PRN PO 05/04/25 15:00 06/04/25 05:45 650 MG Atorvastatin Calcium 40 mg HS PO 05/17/25 22:00 Hold 05/20/25 22:20 40 MG Sodium Chloride 10 ml QSHIFT@10,22 IV 05/19/25 22:00 06/06/25 21:04 10 ML Norepinephrine Bitartrate 32 mg/ Sodium Chloride 250 ml @ 0.938 mls/ hr Q24H IV 05/21/25 01:00 06/05/25 21:11 0.938 MLS/HR Pantoprazole Sodium 40 mg DAILY IV 05/21/25 10:00 06/06/25 09:36 40 MG Artificial Tears 1 drop Q6HP PRN EACHEYE 05/21/25 05:00 06/03/25 21:42 1 DROP Diagnostic Test (Pha) 1 strip Q6HR 05/23/25 00:00 06/06/25 17:38 1 STRIP Insulin Human Regular FOLLOW SLIDING SCALE Q6HR SC 05/23/25 00:00 06/06/25 17:39 4 UNITS Dextrose 50 ml UD IV 05/22/25 22:00 05/24/25 11:36 50 ML Fentanyl Citrate 250 ml @ 2.5 mls/hr Q24H IV 05/23/25 14:00 06/02/25 08:07 2.5 MLS/HR Albumin Human 100 ml @ 100 mls/hr PRN PRN IV 05/24/25 06:45 06/03/25 06:10 100 MLS/HR Enteral Nutritional Formula 1,000 ml 50ML/HR GT 05/24/25 17:30 06/06/25 00:22 1,000 ML Folic Acid 1 mg DAILY PO 05/25/25 10:00 06/06/25 09:36 1 MG Multivitamins 1 tab DAILY PO 05/25/25 10:00 06/06/25 09:36 1 TAB Cyanocobalamin 1,000 mcg DAILY PO 05/25/25 10:00 06/06/25 09:36 1,000 MCG Pyridoxine HCl 50 mg DAILY PO 05/25/25 10:00 06/06/25 09:38 50 MG Ondansetron HCl 4 mg Q4HPRN PRN IV 05/25/25 18:00 Micafungin Sodium 100 mg/Sodium Chloride 100 ml @ 100 mls/hr DAILY IV 05/28/25 10:00 06/06/25 09:37 100 MLS/HR Lactulose 30 ml BID GT 05/28/25 10:00 06/06/25 21:04 30 ML Trimethoprim/ Sulfamethoxazole 0 ml @ 0 mls/hr PER PHARMACY IV 05/28/25 09:45 Trimethoprim/ Sulfamethoxazole 10 ml/Dextrose 260 ml @ 173.333 mls/hr Q12HR IV 05/28/25 22:00 06/06/25 21:04 173.333 MLS/HR Amiodarone HCl 200 mg Q12HR GT 05/29/25 10:00 06/06/25 21:04 200 MG Clopidogrel Bisulfate 75 mg DAILY NG 06/02/25 18:30 Cancel Clopidogrel Bisulfate 75 mg DAILY NG 06/03/25 10:00 06/05/25 10:41 75 MG Albuterol 1.25 mg Q8HP PRN NEB 06/03/25 14:00 06/06/25 22:19 1.25 MG Acetylcysteine 200 mg Q8HR NEB 06/03/25 14:00 06/06/25 22:19 200 MG Melatonin 5 mg HS PO 06/04/25 22:00 06/06/25 21:05 5 MG Laboratory Results Laboratory Tests 06/06/25 04:12 06/06/25 22:16 Chemistry Test 06/06/25 04:12 Albumin 4.0 g/dL (3.2-4.8) Calcium Level 9.9 mg/dL (8.7-10.4) Magnesium Level 2.5 mg/dL (1.6-2.6) Total Protein 6.5 g/dL (5.7-8.2) LFT Test 06/06/25 04:12 Alanine Aminotransferase (ALT) 22 U/L (7-40) Alkaline Phosphatase 143 U/L (46-116) H Aspartate Amino Transferase (AST) 23 U/L (13-40) Total Bilirubin 1.9 mg/dL (0.2-1.0) H Urinalysis Test 05/16/25 15:18 05/20/25 01:02 Urine Hyaline Casts Few /lpf (0 - 2) Urine Mucus Few (None Seen) Urine Yeast (Budding) Many /hpf (None Seen) Urine Osmolality 359 mOsm/kg Urine Creatinine 122.44 mg/dL (30.0-125.0) Urine Protein/Creatinine Ratio 1.06 Urine Sodium 17 mmol/L (40-220) L Urine Total Protein 130.0 mg/dL (1-14) H Urine Color Dark yellow (Yellow) Urine Clarity Ex.turbid (Clear) Urine pH 5.5 (5.0-9.0) Urine Specific [place] 1.013 (1.001-1.035) Urine Protein 1+ (Negative) H Urine Ketones Negative (Negative) Urine Blood 1+ /uL (Negative) H Urine Nitrite Negative (Negative) Urine Bilirubin Negative (Negative) Urine Urobilinogen Normal mg/dL (Negative) Urine Leukocyte Esterase 3+ /uL (Negative) Urine RBC 62 /hpf (0 - 3) Urine WBC Clumps Present /hpf (None Seen) Urine Microscopic WBC 2744 /HPF (0-3) H Urine Squamous Epithelial Cells None seen /hpf (<5) Urine Bacteria None seen /hpf (None Seen) Urine Glucose Normal mg/dL (Normal) Blood Gas Results Test 06/06/25 07:03 Arterial Blood pH 7.495 (7.350-7.450) FiO2 % 28.0 Microbiology Microbiology Date/Time Source Procedure Growth Status 05/27/25 15:55 Sputum Gram Stain - Final Complete 05/27/25 15:55 Respiratory Culture - Final Stenotrophomonas maltophilia Complete 05/20/25 18:09 Nose MRSA Screen - Final Complete 05/20/25 01:02 Urine - Leung [place] Urine Culture - Final Yeast, not Dulce albicans Complete 05/19/25 08:14 Blood Blood Culture - Final NO GROWTH AFTER 5 DAYS OF INCUBATION. Complete Assessment/Plan Assessment/Plan Impression: Acute hypoxic respiratory failure Dependence on supplemental oxygen Severe sepsis Atrial fibrillation with RVR, rate controlled now Pancytopenia Left lower extremity gangrene with severe peripheral arterial disease Status post left [id number] amputation Acute kidney injury secondary to vasomotor nephropathy On hemodialysis Pneumonia secondary to stenotrophomonas maltophilia, Pseudomonas aeruginosa Complicated cystitis with the use Metabolic encephalopathy Coronary artery disease Thrombocytopenia Events: Patient remains on supplemental oxygen, on 3 LPM NC Taper O2 as tolerated Continue antibiotics, antifungals Continue bronchodilators HOB elevation Aspiration precautions Hemodialysis per Nephrology Plan for tunneled catheter placement Monitor renal function Monitor electrolytes. Supplement as necessary. Monitor ins and outs Nephrology recs appreciated. Note, pt passed swallow eval but had some aspiration NPO. Tube feeds via NGT for nutritional support Monitor hemoglobin Monitor platelets. PT evaluation Patient is stable for downgrade from the pulmonary standpoint. Labs and imaging reviewed. Rest of plan as noted below. Plan: S/p extubation Continue supplemental oxygen Titrate to keep O2 sats above 90%. Pressors as necessary for hemodynamic support. Titrate to keep MAP above 65 mmHg/SBP above 90 mmHg. Continue antibiotics and antifungals. F/u cultures. Repeat sputum culture notable for Gram-negative rods. On amiodarone PO. Monitor platelets. Monitor hgb. Monitor renal function due to Acute kidney injury. Monitor electrolytes. Supplement as necessary. Monitor ins and outs HD per Nephrology Nutritional support. Accucheks, ISS. GI/DVT prophylaxis. Condition: Critical Prognosis: Poor given multiple comorbidities. Rest of plan per hospitalist and other consultants. A total of 35 minutes of critical care time was spent reviewing the patient record, examining the patient, making a diagnostic and therapeutic plan, discussing this plan with the medical personnel, following up on diagnostic studies and following the patient for clinical stability excluding any and all procedures. At least 50% of this time was spent in direct, [id number] contact. Thank you for allowing me to participate in this patient's care. Further recommendations will depend on patient's clinical course. Please do not hesitate to contact me if you have any questions or concerns. This medical document was created using an electronic medical record system with [employer] dictation system. Although this document has been carefully reviewed, there may still be some phonetic and typographical errors. These areas are purely typographical due to imperfections of the software programs, and do not reflect any compromise in the patient's medical care. Plan discussed with: Other (AIME Benjamin) Date of Service: Jun 06, 2025 Billing Provider: SHALINI BENITES MD Common Visit Codes: [id number] INP/OBS CARE(HIGH), [id number] CARE 30-74 MIN SHALINI BENITES MD Jun 06, 2025 23:03
[2025-06-07] VITALS (46 sets, daily range): BP systolic 85–115; BP diastolic 46–60; PULSE 16–90; RESP 16–33; TEMP 96.5–97.9; O2SAT 88–100
[2025-06-07 04:05] LABS: Hematocrit 26.2 % (41.0-53.0); Hemoglobin 9.0 g/dL (13.5-17.5); Mean Corpuscular Hemoglobin 33.5 pg (28.0-32.0); Mean Corpuscular Volume 97.5 fL (80.0-100.0); Nucleated Red Blood Cells % 1.7 %
[2025-06-07 04:18] LABS: Alanine Aminotransferase 20 U/L (7-40); Albumin 3.9 g/dL (3.2-4.8); Anion Gap 13 (5-15); BUN/Creatinine Ratio 11.0 (10.0-20.0); Bilirubin, Total 1.1 mg/dL (0.2-1.0); Calcium 9.7 mg/dL (8.7-10.4); Carbon Dioxide 27 mmol/L (20-31); Chloride 100 mmol/L (98-107); Potassium 4.1 mmol/L (3.5-5.1); Sodium 140 mmol/L (136-145); Total Protein 6.4 g/dL (5.7-8.2)
[2025-06-07 04:19] LABS: Alkaline Phosphatase 127 U/L (46-116); Blood Urea Nitrogen 33 mg/dL (9-23); Glucose 108 mg/dL (74-106)
--- NOTE | 2025-06-07 05:27 | DVH ---
CHEST RADIOGRAPH Indication: acute episode of desat Technique: Single frontal view of the chest was obtained COMPARISON: XY CHEST PORTABLE on DOS: 06/05/25, XY CHEST PORTABLE on DOS: 06/05/25, XY CHEST XRAY 1 VIE W on DOS: 06/04/25, XY CHEST PORTABLE on DOS: 06/03/25, XY CHEST PORTABLE on DOS: 06/03/25 FINDINGS: Lines and Tubes: Unchanged. Lungs: Stable appearing moderate bilateral pleural effusions and diffuse increased prominence of the pulmonary vasculature. No evidence of focal consolidation. No pneumothorax. Cardiomediastinal contours: Unremarkable Bones: Unremarkable IMPRESSION: 1. Stable appearing moderate bilateral pleural effusions and diffuse increased prominence of the pulm onary vasculature. 2. Lines and tubes unchanged.
[2025-06-07] MEDS: CATHFLO ACTIVASE (ALTEPLASE) 2 MG VIAL IV ONE ×2 (07:54→13:29)
--- NOTE | 2025-06-07 10:34 | ECG ---
[facility] Test Date: 2025-06-03 Test Time: 16:05:40 Pat Name: RAJESH ELIAS Department: ICU Room: [address] [place] [address] Gender: M Respiratory Support Technician: PRINCESS SALOMON : 1950 Requested By: FABRICIO CALVIN Order Number: [id number] Reading MD: Kelton Ji Measurements Intervals [place] Rate: 85 P: 0 AR: 163 QRS: -78 QRSD: 154 T: 55 QT: 417 QTc: 496 Interpretive Statements Sinus rhythm RBBB and LAFB Electronically Signed On 06-07-2025 21:42:25 PDT by Kelton Ji Please click the below link to view image of tracing.
[2025-06-07 11:37] LABS: Hematocrit 25.6 % (41.0-53.0); Hemoglobin 8.5 g/dL (13.5-17.5)
--- NOTE | 2025-06-07 19:17 | DVHPNRES ---
Progress Note Date Seen: Jun 07, 2025 Resident Creating Document: FABRICIO CALVIN RESIDENT Has the PT tested + for MRSA If YES, has PT been informed?: No Medical Necessity Reason Pt with a Central, PICC or Fol: Yes The following are medically ne: PICC Line, Leung Catheter Subjective Review of Systems * Patient downgraded to KENJI today from ICU. * On 4 L NC with SpO? maintained, transitioned to simple face mask intermittently; on nighttime BiPAP for support. * Undergoing hemodialysis today, IR consulted for tunneled dialysis catheter placement. * Labs: Hgb 9.0 g/dL (stable), WBC 9.4 K/L (normal), platelets 53 K/L (improved from prior 25 K). BUN 33, Cr 3.0 (consistent with dialysis-dependent renal failure). * Hemodynamics: BP 109/56, HR stable; RR elevated at 29. * Supportive care: Incentive spirometry ordered; suctioning performed for airway clearance. PT consult placed for evaluation of functional status and mobility. * Nutrition: continuing tube feeds, tolerating. * Patient alert, cooperative, improving clinically but remains frail and tachypneic. Review of Systems (Limited, post-extubation, KENJI) * Neuro: Awake, oriented, follows commands. * Resp: Mild dyspnea, RR 29, requiring supplemental O?. * CV: No chest pain, hemodynamically stable. * GI: Tolerating TF, no nausea/vomiting. * : Oligo-anuric, dialysis dependent. * Skin/Ext: Mild edema; left BKA stump intact. * ID: Afebrile. Objective vital signs Vital Sign Date Time Temp Pulse Resp B/P (MAP) Pulse Ox O2 Delivery O2 Flow Rate FiO2 06/07/25 18:00 87 06/07/25 18:00 26 95 Simple Mask* 8 60 06/07/25 16:00 96.6 96/50 (65) 96.6 Total Intake and Output 06/06/25 06/06/25 06/07/25 15:00 23:00 07:00 Intake Total 460 ml 355 ml 430 ml Output Total 225 ml 0 ml Balance 460 ml 130 ml 430 ml medications Current Medications Medications Dose Ordered Sig/Bandar Route Start Time Stop Time Status Last Admin Dose Admin Acetaminophen 650 mg Q6HP PRN PO 05/04/25 15:00 06/04/25 05:45 650 MG Sodium Chloride 10 ml QSHIFT@10,22 IV 05/19/25 22:00 06/07/25 11:43 10 ML Norepinephrine Bitartrate 32 mg/ Sodium Chloride 250 ml @ 0.938 mls/ hr Q24H IV 05/21/25 01:00 06/05/25 21:11 0.938 MLS/HR Pantoprazole Sodium 40 mg DAILY IV 05/21/25 10:00 06/07/25 11:42 40 MG Artificial Tears 1 drop Q6HP PRN EACHEYE 05/21/25 05:00 06/03/25 21:42 1 DROP Diagnostic Test (Pha) 1 strip Q6HR 05/23/25 00:00 06/07/25 17:49 1 STRIP Insulin Human Regular FOLLOW SLIDING SCALE Q6HR SC 05/23/25 00:00 06/07/25 05:13 2 UNITS Dextrose 50 ml UD IV 05/22/25 22:00 05/24/25 11:36 50 ML Albumin Human 100 ml @ 100 mls/hr PRN PRN IV 05/24/25 06:45 06/03/25 06:10 100 MLS/HR Enteral Nutritional Formula 1,000 ml 50ML/HR GT 05/24/25 17:30 06/06/25 00:22 1,000 ML Folic Acid 1 mg DAILY PO 05/25/25 10:00 06/07/25 11:41 1 MG Multivitamins 1 tab DAILY PO 05/25/25 10:00 06/07/25 11:42 1 TAB Cyanocobalamin 1,000 mcg DAILY PO 05/25/25 10:00 06/07/25 11:42 1,000 MCG Pyridoxine HCl 50 mg DAILY PO 05/25/25 10:00 06/07/25 11:43 50 MG Ondansetron HCl 4 mg Q4HPRN PRN IV 05/25/25 18:00 Micafungin Sodium 100 mg/Sodium Chloride 100 ml @ 100 mls/hr DAILY IV 05/28/25 10:00 06/07/25 11:42 100 MLS/HR Lactulose 30 ml BID GT 05/28/25 10:00 06/06/25 21:04 30 ML Trimethoprim/ Sulfamethoxazole 0 ml @ 0 mls/hr PER PHARMACY IV 05/28/25 09:45 Trimethoprim/ Sulfamethoxazole 10 ml/Dextrose 260 ml @ 173.333 mls/hr Q12HR IV 05/28/25 22:00 06/07/25 11:43 173.333 MLS/HR Amiodarone HCl 200 mg Q12HR GT 05/29/25 10:00 06/07/25 11:42 200 MG Clopidogrel Bisulfate 75 mg DAILY NG 06/02/25 18:30 Cancel Clopidogrel Bisulfate 75 mg DAILY NG 06/03/25 10:00 06/07/25 11:42 75 MG Albuterol 1.25 mg Q8HP PRN NEB 06/03/25 14:00 06/07/25 16:44 1.25 MG Acetylcysteine 200 mg Q8HR NEB 06/03/25 14:00 06/07/25 06:35 200 MG Melatonin 5 mg HS PO 06/04/25 22:00 06/06/25 21:05 5 MG Atorvastatin Calcium 40 mg HS PO 06/07/25 22:00 Examination * General: Alert, cooperative, tachypneic but no acute distress. * HEENT: On O? mask; mucosa moist. * CV: Regular rate/rhythm, no new murmurs. * Resp: Increased work of breathing, coarse bibasilar sounds, decreased air entry at bases. * Abdomen: Soft, nondistended, GT in place. * Extremities: Trace edema; left BKA stump CDI. * Neuro: Non-focal, follows commands. * Skin/Lines: Central line present; Leung previously removed. laboratory and microbiology Laboratory Tests 06/07/25 10:35 06/07/25 03:06 Test 06/07/25 03:06 Range/Units Serum Glucose 108 H 74-106 mg/dL Microbiology Date/Time Source Procedure Growth Status 05/27/25 15:55 Sputum Gram Stain - Final Complete 05/27/25 15:55 Respiratory Culture - Final Stenotrophomonas maltophilia Complete 05/20/25 18:09 Nose MRSA Screen - Final Complete 05/20/25 01:02 Urine - Leung Port Urine Culture - Final Yeast, not Dulce albicans Complete 05/19/25 08:14 Blood Blood Culture - Final NO GROWTH AFTER 5 DAYS OF INCUBATION. Complete Problem List/Assessment/Plan Problem List/Assessment/Plan Assessment Critical, complex multi-organ failure patient. 1. Severe Sepsis / Pneumonia due to MDR organisms (Stenotrophomonas, Pseudomonas, Enterobacter). On broad antimicrobials (Ciprofloxacin, TMP-SMX, Micafungin).POA 2. Acute hypoxic respiratory failure with post-extubation failureactive management due to Pneumonia 3. 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 Volume overload / Edema due to oligoanuria and CHF POA 5. Atrial fibrillation previously on amiodarone drip; now rate-controlled. 6. Acute on Chronic HFpEF NSTEMI stable, compensated. due to sepsis 7. PAD with Left foot gangrene s/p BKA stable surgical site. POA 8. Thrombocytopenia & Anemia likely multifactorial (sepsis, critical illness, marrow suppression, renal disease). Received platelets. 9. Metabolic encephalopathy improving; patient follows commands. 10. History of DVT prophylaxis complicated by thrombocytopenia. 11. Poor prognosis given multi-organ dysfunction, infections, dialysis- dependence. Plan ) Acute hypoxic respiratory failure improving, step-down level * On 4 L NC/simple mask; BiPAP at night. RR elevated at 29, SpO? stable. * Plan: Continue O? protocol; nighttime BiPAP; incentive spirometry; suctioning and chest physiotherapy. Monitor ABGs and CXR PRN. 2) Sepsis due to MDR pneumonia improving * Afebrile, WBC normal. On TMP-SMX + micafungin. * Plan: Continue antimicrobials Monitor cultures. Trend fever curve and WBC. * 3) AD on CKD IV, HD dependent * BUN 33, Cr 3.0; minimal urine output. HD performed today. * Plan: Continue scheduled HD. IR to place tunneled HD catheter. Monitor BMP/Mg/Phos daily. Strict I/O. * 4) Volume overload with cardiomegaly/effusions * Persistent vascular congestion and effusions on CXR. * Plan: Continue UF with HD, daily weights, strict I/O. Repeat imaging as needed. * 5) Anemia of CKD/critical illness * Hgb 9.0, stable. * Plan: Monitor CBC daily. Transfuse PRBC if Hgb <7 or symptomatic. Continue vitamins (B6, B12, folate). * 6) Thrombocytopenia improving * Platelets improved to 53 K (from 25 K). * Plan: Daily CBC. Transfuse if <10 K or <2030 K with bleeding. Resume pharmacologic DVT prophylaxis once Plt >50 K and stable (discuss with Hem/Onc). Currently SCDs only. * 7) Atrial fibrillation with history of prolonged QT * Currently sinus rhythm, QT normal on EKG. * Plan: Continue amiodarone 200 mg q12h; daily EKG. Maintain K >4, Mg >2. Avoid QT-prolonging meds. * 8) HFpEF / cardiomegaly * Stable BP; mild tachypnea. * Plan: Optimize volume with HD. Continue clopidogrel. Monitor hemodynamics closely. * 9) Nutrition / GI * Tolerating tube feeds; stool 155 mL yesterday. * Plan: Continue TF; PPI for GI prophylaxis. Adjust lactulose PRN. * 10) Complicated candiduria * Continue micafungin; Leung already removed. ID to re-evaluate for fluconazole if susceptible species. * Repeat Urine culture ordered * 11) Rehabilitation / Functional Status * PT consult placed for functional assessment, early mobilization. * 12) Prophylaxis & Supportive Care * DVT: SCDs; resume pharmacologic prophylaxis once Plt >50 K and stable. * GI: PPI. * Skin: Daily wound/stump care, pressure injury prevention. Case discussed in detail with the attending physician, including the clinical presentation, diagnostic workup, and comprehensive management plan. The duration of time spent in direct critical care management of this patient, including evaluation, review of clinical data, coordination of care, and decision-making, was 45 minutes. Plan discussed with: Patient My Orders My Orders Orders - FABRICIO CALVIN RESIDENT Procedure Category Date Status Time Pt Request For Service PT 06/07/25 Logged 11:16 Urine Bacterial EUGENIO 06/07/25 Uncollected Culture 11:16 Incentive Spirometry ORDERS 06/07/25 Verified 11:16 Atorvastatin (Lipitor) PHA 06/07/25 In Process 22:00 Complete Blood Count LAB 06/08/25 Verified 04:00 Comprehensive LAB 06/08/25 Verified Metabolic Panel 04:00 Chest Xray 1 View XY 06/08/25 Logged 04:00 Venous Blood Gas RT 06/07/25 Logged 19:08 Dietary Evaluation Review Comments: 1) [facility] + cardiac diet 2) Armen 1 pk BID, MVI w/ minerals 1 tab daily, VitC 500mg BID, Zinc sulfate 220mg BID x 10 days 3) Monitor NPO status, lab values, weight trend, and I/O Expected Outcomes/Goals: To meet >75% estimated needs Wound to improve Fu 2-3 days Date of Service: Jul 07, 2025 Billing Provider: LAUREN MA MD Common Visit Codes: [id number] CARE 30-74 MIN FABRICIO CALVIN RESIDENT Jun 07, 2025 19:17 LAUREN MA MD Jun 08, 2025 22:25
[2025-06-07] MEDS: ATORVASTATIN 20 MG TAB PO SCH (20:52)
--- NOTE | 2025-06-07 21:37 | DVHPN2 ---
Progress Note Date Seen: Jun 07, 2025 Has the PT tested + for MRSA If YES, has PT been informed?: No Medical Necessity Reason Pt with a Central, PICC or Fol: Yes The following are medically ne: PICC Line, Leung Catheter Subjective Patient reports: No new complaints (downgraded from icu ) Review of Systems: Deferred Objective vital signs Vital Sign Date Time Temp Pulse Resp B/P (MAP) Pulse Ox O2 Delivery O2 Flow Rate FiO2 06/07/25 21:00 90 25 89/52 (64) 92 06/07/25 20:00 Nasal Cannula* 4 36 06/07/25 19:45 97.6 97.6 Total Intake and Output 06/06/25 06/06/25 06/07/25 15:00 23:00 07:00 Intake Total 460 ml 355 ml 430 ml Output Total 225 ml 0 ml Balance 460 ml 130 ml 430 ml medications Current Medications Medications Dose Ordered Sig/Bandar Route Start Time Stop Time Status Last Admin Dose Admin Acetaminophen 650 mg Q6HP PRN PO 05/04/25 15:00 06/04/25 05:45 650 MG Sodium Chloride 10 ml QSHIFT@10,22 IV 05/19/25 22:00 06/07/25 20:52 10 ML Norepinephrine Bitartrate 32 mg/ Sodium Chloride 250 ml @ 0.938 mls/ hr Q24H IV 05/21/25 01:00 06/05/25 21:11 0.938 MLS/HR Pantoprazole Sodium 40 mg DAILY IV 05/21/25 10:00 06/07/25 11:42 40 MG Artificial Tears 1 drop Q6HP PRN EACHEYE 05/21/25 05:00 06/03/25 21:42 1 DROP Diagnostic Test (Pha) 1 strip Q6HR 05/23/25 00:00 06/07/25 17:49 1 STRIP Insulin Human Regular FOLLOW SLIDING SCALE Q6HR SC 05/23/25 00:00 06/07/25 05:13 2 UNITS Dextrose 50 ml UD IV 05/22/25 22:00 05/24/25 11:36 50 ML Albumin Human 100 ml @ 100 mls/hr PRN PRN IV 05/24/25 06:45 06/03/25 06:10 100 MLS/HR Enteral Nutritional Formula 1,000 ml 50ML/HR GT 05/24/25 17:30 06/06/25 00:22 1,000 ML Folic Acid 1 mg DAILY PO 05/25/25 10:00 06/07/25 11:41 1 MG Multivitamins 1 tab DAILY PO 05/25/25 10:00 06/07/25 11:42 1 TAB Cyanocobalamin 1,000 mcg DAILY PO 05/25/25 10:00 06/07/25 11:42 1,000 MCG Pyridoxine HCl 50 mg DAILY PO 05/25/25 10:00 06/07/25 11:43 50 MG Ondansetron HCl 4 mg Q4HPRN PRN IV 05/25/25 18:00 Micafungin Sodium 100 mg/Sodium Chloride 100 ml @ 100 mls/hr DAILY IV 05/28/25 10:00 06/07/25 11:42 100 MLS/HR Lactulose 30 ml BID GT 05/28/25 10:00 06/06/25 21:04 30 ML Trimethoprim/ Sulfamethoxazole 0 ml @ 0 mls/hr PER PHARMACY IV 05/28/25 09:45 Trimethoprim/ Sulfamethoxazole 10 ml/Dextrose 260 ml @ 173.333 mls/hr Q12HR IV 05/28/25 22:00 06/07/25 20:53 173.333 MLS/HR Amiodarone HCl 200 mg Q12HR GT 05/29/25 10:00 06/07/25 20:51 200 MG Clopidogrel Bisulfate 75 mg DAILY NG 06/02/25 18:30 Cancel Clopidogrel Bisulfate 75 mg DAILY NG 06/03/25 10:00 06/07/25 11:42 75 MG Albuterol 1.25 mg Q8HP PRN NEB 06/03/25 14:00 06/07/25 16:44 1.25 MG Acetylcysteine 200 mg Q8HR NEB 06/03/25 14:00 06/07/25 06:35 200 MG Melatonin 5 mg HS PO 06/04/25 22:00 06/07/25 20:52 5 MG Atorvastatin Calcium 40 mg HS PO 06/07/25 22:00 06/07/25 20:52 40 MG Examination: GENERAL:Abnormal, LUNGS:Abnormal, MSK:Abnormal, NEURO:Abnormal laboratory and microbiology Laboratory Tests 06/07/25 10:35 06/07/25 03:06 Test 06/07/25 03:06 Range/Units Serum Glucose 108 H 74-106 mg/dL Microbiology Date/Time Source Procedure Growth Status 05/27/25 15:55 Sputum Gram Stain - Final Complete 05/27/25 15:55 Respiratory Culture - Final Stenotrophomonas maltophilia Complete 05/20/25 18:09 Nose MRSA Screen - Final Complete 05/20/25 01:02 Urine - Leung Port Urine Culture - Final Yeast, not Dulce albicans Complete 05/19/25 08:14 Blood Blood Culture - Final NO GROWTH AFTER 5 DAYS OF INCUBATION. Complete Problem List/Assessment/Plan Problem List/Assessment/Plan Acute kidney injury superimposed Chronic Kidney Disease stage IV secondary hemodynamic mediated, FeNa < 1% Chronic kidney disease stage IV followed by Dr. Ponce Gangrene left foot, status post left below-knee amputation 05/20 Left lower extremity DVT Ventilator-dependent hypoxic respiratory failure intubated /extubated Diabetes mellitus type 2 Chronic diastolic Congestive heart failure NSTEMI Hyponatremia due to excess H2O Dropping hemoglobin Anemia due to blood loss Metabolic acidosis Septic shock History of testicular cancer Cellulitis lower extremity thrombocytopenia Recommendations seen on HD today Epogen with dialysis Guarded prognosis Chair time arrangement not being initiated yet pending final disposition tunneled cath pending Plan discussed with: Other My Orders My Orders Orders - SHANTANU BECK MD Procedure Category Date Status Time Hemodialysis Orders ORDERS 06/07/25 Transmitted 04:00 Dietary Evaluation Review Comments: 1) Advance to [facility] 75gm + cardiac diet 2) Armen 1 pk BID, MVI w/ minerals 1 tab daily, VitC 500mg BID, Zinc sulfate 220mg BID x 10 days 3) Monitor NPO status, lab values, weight trend, and I/O Expected Outcomes/Goals: To meet >75% estimated needs Wound to improve Fu 2-3 days SHANTANU BECK MD Jun 07, 2025 21:36
--- NOTE | 2025-06-07 22:07 | DVHPN2 ---
Subjective DOS: 06/07/2025 Patient seen and examined at bedside. Remains on supplemental oxygen Overnight events reviewed Reviewed: Care Plan, H&P, Labs, Medications, Previous Orders Changes from previous H/P or p: No Changes General: Per HPI Objective Vitals Vital Signs Date Time Temp Pulse Resp B/P (MAP) Pulse Ox O2 Delivery O2 Flow Rate FiO2 06/07/25 21:00 90 25 89/52 (64) 92 06/07/25 20:00 Nasal Cannula* 4 36 06/07/25 19:45 97.6 97.6 Intake/Output Intake and Output 06/07/25 07:00 Intake Total 1245 ml Output Total 225 ml Balance 1020 ml Intake Oral 270 ml IV Total 720 ml Tube Feeding 255 ml Output Urine Total 0 ml Stool Total 225 ml General Appearance: Other (Encephalopathic) HEENT: Atraumatic, PERRLA Lungs: Clear to auscultation, Other (Decreased air entry bilaterally. No wheezing or rhonchi ) Cardiovascular: Normal S1, Normal S2, Other (Atrial fibrillation) Abdomen: Normal bowel sounds, Soft, No tenderness, No hepatospenomegaly Genitourinary: No Apparent Abnormalities (Leung catheter) Musculoskeletal: Other (Unable to assess) Extremities: Normal pulses, Other (Left BKA) Neuro: Other (Awake, following commands.) Skin: Wounds (See nurse notes and pictures) Psych/Mental Status: Other (Unable to assess) Medications Current Medications Medications Dose Ordered Sig/Bandar Route Start Time Stop Time Status Last Admin Dose Admin Acetaminophen 650 mg Q6HP PRN PO 05/04/25 15:00 06/04/25 05:45 650 MG Sodium Chloride 10 ml QSHIFT@10,22 IV 05/19/25 22:00 06/07/25 20:52 10 ML Norepinephrine Bitartrate 32 mg/ Sodium Chloride 250 ml @ 0.938 mls/ hr Q24H IV 05/21/25 01:00 06/05/25 21:11 0.938 MLS/HR Pantoprazole Sodium 40 mg DAILY IV 05/21/25 10:00 06/07/25 11:42 40 MG Artificial Tears 1 drop Q6HP PRN EACHEYE 05/21/25 05:00 06/03/25 21:42 1 DROP Diagnostic Test (Pha) 1 strip Q6HR 05/23/25 00:00 06/07/25 17:49 1 STRIP Insulin Human Regular FOLLOW SLIDING SCALE Q6HR SC 05/23/25 00:00 06/07/25 05:13 2 UNITS Dextrose 50 ml UD IV 05/22/25 22:00 05/24/25 11:36 50 ML Albumin Human 100 ml @ 100 mls/hr PRN PRN IV 05/24/25 06:45 06/03/25 06:10 100 MLS/HR Enteral Nutritional Formula 1,000 ml 50ML/HR GT 05/24/25 17:30 06/06/25 00:22 1,000 ML Folic Acid 1 mg DAILY PO 05/25/25 10:00 06/07/25 11:41 1 MG Multivitamins 1 tab DAILY PO 05/25/25 10:00 06/07/25 11:42 1 TAB Cyanocobalamin 1,000 mcg DAILY PO 05/25/25 10:00 06/07/25 11:42 1,000 MCG Pyridoxine HCl 50 mg DAILY PO 05/25/25 10:00 06/07/25 11:43 50 MG Ondansetron HCl 4 mg Q4HPRN PRN IV 05/25/25 18:00 Micafungin Sodium 100 mg/Sodium Chloride 100 ml @ 100 mls/hr DAILY IV 05/28/25 10:00 06/07/25 11:42 100 MLS/HR Lactulose 30 ml BID GT 05/28/25 10:00 06/06/25 21:04 30 ML Trimethoprim/ Sulfamethoxazole 0 ml @ 0 mls/hr PER PHARMACY IV 05/28/25 09:45 Trimethoprim/ Sulfamethoxazole 10 ml/Dextrose 260 ml @ 173.333 mls/hr Q12HR IV 05/28/25 22:00 06/07/25 20:53 173.333 MLS/HR Amiodarone HCl 200 mg Q12HR GT 05/29/25 10:00 06/07/25 20:51 200 MG Clopidogrel Bisulfate 75 mg DAILY NG 06/02/25 18:30 Cancel Clopidogrel Bisulfate 75 mg DAILY NG 06/03/25 10:00 06/07/25 11:42 75 MG Albuterol 1.25 mg Q8HP PRN NEB 06/03/25 14:00 06/07/25 16:44 1.25 MG Acetylcysteine 200 mg Q8HR NEB 06/03/25 14:00 06/07/25 06:35 200 MG Melatonin 5 mg HS PO 06/04/25 22:00 06/07/25 20:52 5 MG Atorvastatin Calcium 40 mg HS PO 06/07/25 22:00 06/07/25 20:52 40 MG Laboratory Results Laboratory Tests 06/07/25 03:06 06/07/25 10:35 Chemistry Test 06/07/25 03:06 Albumin 3.9 g/dL (3.2-4.8) Calcium Level 9.7 mg/dL (8.7-10.4) Total Protein 6.4 g/dL (5.7-8.2) LFT Test 06/07/25 03:06 Alanine Aminotransferase (ALT) 20 U/L (7-40) Alkaline Phosphatase 127 U/L (46-116) H Aspartate Amino Transferase (AST) 19 U/L (13-40) Total Bilirubin 1.1 mg/dL (0.2-1.0) H Urinalysis Test 05/16/25 15:18 05/20/25 01:02 Urine Hyaline Casts Few /lpf (0 - 2) Urine Mucus Few (None Seen) Urine Yeast (Budding) Many /hpf (None Seen) Urine Osmolality 359 mOsm/kg Urine Creatinine 122.44 mg/dL (30.0-125.0) Urine Protein/Creatinine Ratio 1.06 Urine Sodium 17 mmol/L (40-220) L Urine Total Protein 130.0 mg/dL (1-14) H Urine Color Dark yellow (Yellow) Urine Clarity Ex.turbid (Clear) Urine pH 5.5 (5.0-9.0) Urine Specific [place] 1.013 (1.001-1.035) Urine Protein 1+ (Negative) H Urine Ketones Negative (Negative) Urine Blood 1+ /uL (Negative) H Urine Nitrite Negative (Negative) Urine Bilirubin Negative (Negative) Urine Urobilinogen Normal mg/dL (Negative) Urine Leukocyte Esterase 3+ /uL (Negative) Urine RBC 62 /hpf (0 - 3) Urine WBC Clumps Present /hpf (None Seen) Urine Microscopic WBC 2744 /HPF (0-3) H Urine Squamous Epithelial Cells None seen /hpf (<5) Urine Bacteria None seen /hpf (None Seen) Urine Glucose Normal mg/dL (Normal) Microbiology Microbiology Date/Time Source Procedure Growth Status 05/27/25 15:55 Sputum Gram Stain - Final Complete 05/27/25 15:55 Respiratory Culture - Final Stenotrophomonas maltophilia Complete 05/20/25 18:09 Nose MRSA Screen - Final Complete 05/20/25 01:02 Urine - Leung Port Urine Culture - Final Yeast, not Dulce albicans Complete 05/19/25 08:14 Blood Blood Culture - Final NO GROWTH AFTER 5 DAYS OF INCUBATION. Complete Assessment/Plan Assessment/Plan Impression: Acute hypoxic respiratory failure Dependence on supplemental oxygen Severe sepsis Atrial fibrillation with RVR, rate controlled now Pancytopenia Left lower extremity gangrene with severe peripheral arterial disease Status post left [id number] amputation Acute kidney injury secondary to vasomotor nephropathy On hemodialysis Pneumonia secondary to stenotrophomonas maltophilia, Pseudomonas aeruginosa Complicated cystitis with the use Metabolic encephalopathy Coronary artery disease Thrombocytopenia Events: Patient remains on supplemental oxygen, on 3 LPM NC Taper O2 as tolerated Continue antibiotics, antifungals Continue bronchodilators HOB elevation Aspiration precautions Hemodialysis per Nephrology Plan for tunneled catheter placement Monitor renal function Monitor electrolytes. Supplement as necessary. Monitor ins and outs Nephrology recs appreciated. Note, pt passed swallow eval but had some aspiration Continue tube feeds via NGT for nutritional support Monitor hemoglobin Monitor platelets. PT evaluation Labs and imaging reviewed. Rest of plan as noted below. Plan: S/p extubation Continue supplemental oxygen Titrate to keep O2 sats above 92%. Pressors as necessary for hemodynamic support. Titrate to keep MAP above 65 mmHg/SBP above 90 mmHg. Continue antibiotics and antifungals. F/u cultures. Repeat sputum culture notable for Gram-negative rods. On amiodarone PO. Monitor platelets. Monitor hgb. Monitor renal function due to Acute kidney injury. Monitor electrolytes. Supplement as necessary. Monitor ins and outs HD per Nephrology Nutritional support. Accucheks, ISS. GI/DVT prophylaxis. Prognosis: Poor given multiple comorbidities. Rest of plan per hospitalist and other consultants. Thank you for allowing me to participate in this patient's care. Further recommendations will depend on patient's clinical course. Please do not hesitate to contact me if you have any questions or concerns. This medical document was created using an electronic medical record system with [employer] system. Although this document has been carefully reviewed, there may still be some phonetic and typographical errors. These areas are purely typographical due to imperfections of the software programs, and do not reflect any compromise in the patient's medical care. Plan discussed with: Patient, Other (COMMUNITY HEALTH ADVISOR) Visit Coding Pulmonary Billing Provider: SHALINI BENITES MD Date of Service if different f: Jun 07, 2025 Common Visit Codes: [id number] INP/OBS CARE(HIGH) SHALINI BENITES MD Jun 07, 2025 22:07
[2025-06-07 23:00] LABS: Hemoglobin 7.4 g/dL (13.5-17.5)
[2025-06-07 23:04] LABS: Hematocrit 21.6 % (41.0-53.0)
[2025-06-08] VITALS (55 sets, daily range): BP systolic 84–118; BP diastolic 42–63; PULSE 75–87; RESP 16–29; TEMP 96.7–99.4; O2SAT 87–100
[2025-06-08] MEDS: SODIUM CHLORIDE 0.9% 250 ML IV ONE (00:50)
[2025-06-08 05:45] LABS: Hematocrit 22.8 % (41.0-53.0); Hemoglobin 7.7 g/dL (13.5-17.5); Mean Corpuscular Hemoglobin 33.4 pg (28.0-32.0)
[2025-06-08 05:47] LABS: Mean Corpuscular Volume 98.6 fL (80.0-100.0); Nucleated Red Blood Cells % 1.9 %
[2025-06-08 06:01] LABS: Alanine Aminotransferase 19 U/L (7-40); Alkaline Phosphatase 103 U/L (46-116); Anion Gap 15 (5-15); BUN/Creatinine Ratio 11.7 (10.0-20.0); Calcium 9.5 mg/dL (8.7-10.4); Carbon Dioxide 27 mmol/L (20-31); Chloride 98 mmol/L (98-107); Potassium 4.3 mmol/L (3.5-5.1); Sodium 140 mmol/L (136-145); Total Protein 6.4 g/dL (5.7-8.2)
[2025-06-08 06:02] LABS: Albumin 4.3 g/dL (3.2-4.8)
[2025-06-08 06:08] LABS: Bilirubin, Total 1.9 mg/dL (0.2-1.0); Blood Urea Nitrogen 23 mg/dL (9-23); Glucose 202 mg/dL (74-106)
--- NOTE | 2025-06-08 09:19 | DVH ---
CHEST RADIOGRAPH Indication: Pulmonary vascular congestion Technique: Single frontal view of the chest was obtained Comparison: XY CHEST PORTABLE on DOS: 06/07/25, XY CHEST PORTABLE on DOS: 06/05/25, XY CHEST PORTABLE o n DOS: 06/05/25, XY CHEST XRAY 1 VIEW on DOS: 06/04/25, XY CHEST PORTABLE on DOS: 06/03/25, XY CHEST POR TABLE on DOS: 06/07/25 FINDINGS: Lines and Tubes: Unchanged. Lungs: Stable appearing moderate bilateral pleural effusions and diffuse increased prominence of the pulmonary vasculature. No evidence of focal consolidation. No pneumothorax. Cardiomediastinal contours: Unremarkable Bones: Unremarkable IMPRESSION: 1. Stable appearing moderate bilateral pleural effusions and diffuse increased prominence of the pulm onary vasculature. 2. Lines and tubes unchanged.
[2025-06-08] MEDS: LIDOCAINE 2%HCL (LOCAL ANESTH.) INJ 20ML MDV ONE (10:18)
[2025-06-08] MEDS: HEPARIN SODIUM (PORCINE) 5000 UNITS/ML 1ML VIAL ONE (10:36)
--- NOTE | 2025-06-08 11:45 | DVH ---
XY Insertion of Venous Cath, HISTORY: HD CATH PL PROCEDURE: Informed consent was obtained. The patient was placed supine on the interventional table. A limited localization ultrasound of the right neck base was obtained. The right neck base and upper chest were prepped with chlorhexidine which was allowed to dry and draped in the usual sterile fashio n. Time out was performed. The skin and the soft tissues were infiltrated with 1% Lidocaine . With re al-time ultrasound guidance, the internal vein was accessed with a micropuncture kit, and an image do cumenting patency was recorded to PACS. A subcutaneous tunneled tract was created from the right uppe r chest to the venotomy site. A 14.5 greek Evans Path, 19 cm long hemodialysis catheter was advanced through the tunneled tract. Fluoroscopy was used to advance a guidewire through the internal jugular vein into the inferior vena cava. Following serial dilatation, a 15 greek peel-away sheath was introduced, though which was adva nced the catheter into the right atrium. The catheter tip position was confirmed with fluoroscopy. Th ere was satisfactory flow in both lumens. The catheter lumens were flushed with saline and heparin wa s left indwelling in the catheter. A post-procedure image of the chest was obtained. The neck incisio n site was closed with pressure, dermabond, and dressed sterilely. The old nontunneled HD catheter wa s removed. The catheter was sutured at the skin surface and exit site also dressed sterilely. No imme diate complication was identified. Air Kerma 7 mGy FLUOROSCOPY TIME: 1.0 minutes. FINDINGS: Widely patent right IJV. Post procedure image demonstrates smooth course of the hemodialysi s catheter with the tip in the right atrium. IMPRESSION: Placement of 14.5 greek Evans Path, 19 cm long hemodialysis catheter through right internal jugular vein. Plan: Please contact IR for removal when no longer needed.
--- NOTE | 2025-06-08 14:40 | DVHPNRES ---
Progress Note Date Seen: Jun 08, 2025 Resident Creating Document: FABRICIO CALVIN RESIDENT Has the PT tested + for MRSA If YES, has PT been informed?: No Medical Necessity Reason Pt with a Central, PICC or Fol: Yes The following are medically ne: PICC Line, Leung Catheter Subjective Review of Systems * Patient underwent tunneled dialysis catheter placement today. * Attempted oral feeding with repeat swallow evaluations ? failed multiple swallow studies. Even with small sips of water, patient is unable to swallow, has weak cough reflex, and demonstrates high aspiration risk. * Plan under consideration: PEG tube placement for long-term feeding versus temporary NG continuation until decision finalized. Disposition planning for SNF once nutrition is stabilized. * Vitals: On 5 L NC, SpO? 94%; BP 102/57; HR 83; RR 26. * Labs: * Hgb 7.7 (low, down from 9.0), WBC 8.1 (normal), Plt 31 (low). * ABG: pH 7.46 (alkalemic), pCO? 37.5 (low-normal), HCO? 26.5 (compensated), pO? 48.3 (hypoxemia). * Electrolytes: K 4.3 normal. * Renal: Cr 1.97, GFR 35, BUN trending up. * Outputs: 450 mL total (dialysis dependent). * Nutrition: Remains NPO pending PEG discussion. * Discharge planning: Case management and speech therapy engaged; considering SNF placement with rehab/PT once stable. Review of Systems * General: Reports weakness, no fever/chills. * Neuro: Awake, cooperative, follows commands. * Resp: Dyspnea on exertion, persistent cough, high aspiration risk. * CV: No chest pain/palpitations. * GI: Unable to tolerate PO intake, failed swallow studies, considering PEG. * : HD dependent, minimal urine. * Skin/Ext: Mild edema, stump site intact. Objective vital signs Vital Sign Date Time Temp Pulse Resp B/P (MAP) Pulse Ox O2 Delivery O2 Flow Rate FiO2 06/08/25 14:12 76 20 97 06/08/25 14:05 Simple Mask* 6 50 06/08/25 09:00 98.0 95/51 (66) 98.0 Total Intake and Output 06/07/25 06/07/25 06/08/25 15:00 23:00 07:00 Intake Total 360 ml 370 ml 370 ml Output Total 250 ml 200 ml Balance 360 ml 120 ml 170 ml medications Current Medications Medications Dose Ordered Sig/Bandar Route Start Time Stop Time Status Last Admin Dose Admin Acetaminophen 650 mg Q6HP PRN PO 05/04/25 15:00 06/04/25 05:45 650 MG Sodium Chloride 10 ml QSHIFT@10,22 IV 05/19/25 22:00 06/08/25 11:35 10 ML Norepinephrine Bitartrate 32 mg/ Sodium Chloride 250 ml @ 0.938 mls/ hr Q24H IV 05/21/25 01:00 06/05/25 21:11 0.938 MLS/HR Pantoprazole Sodium 40 mg DAILY IV 05/21/25 10:00 06/08/25 11:36 40 MG Artificial Tears 1 drop Q6HP PRN EACHEYE 05/21/25 05:00 06/03/25 21:42 1 DROP Diagnostic Test (Pha) 1 strip Q6HR 05/23/25 00:00 06/08/25 12:11 1 STRIP Insulin Human Regular FOLLOW SLIDING SCALE Q6HR SC 05/23/25 00:00 06/08/25 06:15 4 UNITS Dextrose 50 ml UD IV 05/22/25 22:00 05/24/25 11:36 50 ML Albumin Human 100 ml @ 100 mls/hr PRN PRN IV 05/24/25 06:45 06/03/25 06:10 100 MLS/HR Enteral Nutritional Formula 1,000 ml 50ML/HR GT 05/24/25 17:30 06/06/25 00:22 1,000 ML Folic Acid 1 mg DAILY PO 05/25/25 10:00 06/08/25 11:35 1 MG Multivitamins 1 tab DAILY PO 05/25/25 10:00 06/08/25 11:35 1 TAB Cyanocobalamin 1,000 mcg DAILY PO 05/25/25 10:00 06/08/25 11:36 1,000 MCG Pyridoxine HCl 50 mg DAILY PO 05/25/25 10:00 06/07/25 11:43 50 MG Ondansetron HCl 4 mg Q4HPRN PRN IV 05/25/25 18:00 Micafungin Sodium 100 mg/Sodium Chloride 100 ml @ 100 mls/hr DAILY IV 05/28/25 10:00 06/08/25 11:37 100 MLS/HR Lactulose 30 ml BID GT 05/28/25 10:00 06/06/25 21:04 30 ML Trimethoprim/ Sulfamethoxazole 0 ml @ 0 mls/hr PER PHARMACY IV 05/28/25 09:45 Trimethoprim/ Sulfamethoxazole 10 ml/Dextrose 260 ml @ 173.333 mls/hr Q12HR IV 05/28/25 22:00 06/08/25 11:37 173.333 MLS/HR Amiodarone HCl 200 mg Q12HR GT 05/29/25 10:00 06/08/25 11:35 200 MG Clopidogrel Bisulfate 75 mg DAILY NG 06/02/25 18:30 Cancel Clopidogrel Bisulfate 75 mg DAILY NG 06/03/25 10:00 06/07/25 11:42 75 MG Albuterol 1.25 mg Q8HP PRN NEB 06/03/25 14:00 06/08/25 14:04 1.25 MG Acetylcysteine 200 mg Q8HR NEB 06/03/25 14:00 06/08/25 14:05 200 MG Melatonin 5 mg HS PO 06/04/25 22:00 06/07/25 20:52 5 MG Atorvastatin Calcium 40 mg HS PO 06/07/25 22:00 06/07/25 20:52 40 MG Examination * General: Frail, tachypneic, alert, oriented. * HEENT: On 5 L NC, mucosa dry, weak gag/cough reflex. * CV: Regular rhythm, no murmurs, stable perfusion. * Resp: Tachypneic (RR 26), bibasilar crackles, diminished air entry at bases. * Abdomen: Soft, non-distended, GT site not yet placed. * Extremities: Trace edema; left BKA stump intact. * Neuro: Alert, cooperative, non-focal. * Skin/Lines: Tunneled dialysis catheter placed today, site clean/dry/intact. laboratory and microbiology Laboratory Tests 06/08/25 05:17 Test 06/08/25 05:17 Range/Units Serum Glucose 202 H 74-106 mg/dL Microbiology Date/Time Source Procedure Growth Status 05/27/25 15:55 Sputum Gram Stain - Final Complete 05/27/25 15:55 Respiratory Culture - Final Stenotrophomonas maltophilia Complete 05/20/25 18:09 Nose MRSA Screen - Final Complete 05/20/25 01:02 Urine - Leung [place] Urine Culture - Final Yeast, not Dulce albicans Complete 05/19/25 08:14 Blood Blood Culture - Final NO GROWTH AFTER 5 DAYS OF INCUBATION. Complete Problem List/Assessment/Plan Problem List/Assessment/Plan Assessment Critical, complex multi-organ failure patient. 1. Severe Sepsis / Pneumonia due to MDR organisms (Stenotrophomonas, Pseudomonas, Enterobacter). On broad antimicrobials (Ciprofloxacin, TMP-SMX, Micafungin).POA 2. Acute hypoxic respiratory failure with post-extubation failureactive management due to Pneumonia 3. 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 Volume overload / Edema due to oligoanuria and CHF POA 5. Atrial fibrillation previously on amiodarone drip; now rate-controlled. 6. Acute on Chronic HFpEF NSTEMI stable, compensated. due to sepsis 7. PAD with Left foot gangrene s/p BKA stable surgical site. POA 8. Thrombocytopenia & Anemia likely multifactorial (sepsis, critical illness, marrow suppression, renal disease). Received platelets. 9. Metabolic encephalopathy improving; patient follows commands. 10. History of DVT prophylaxis complicated by thrombocytopenia. 11. Poor prognosis given multi-organ dysfunction, infections, dialysis- dependence. Plan Acute hypoxic respiratory failure chronic, improving * On 5 L NC, SpO? 94%, tachypneic, ABG with compensated alkalosis + hypoxemia. * Plan: Continue NC, BiPAP PRN, pulmonary hygiene, incentive spirometry, suctioning. Monitor ABG/CXR. 2) Severe dysphagia with recurrent aspiration risk * Failed multiple swallow studies, weak cough, unable to tolerate PO. * Plan: Strict NPO, nutrition via TF only. GI consult for PEG placement if patient agrees. Speech therapy to reassess after 3) Sepsis due to MDR pneumonia improving * Afebrile, WBC 8.1. On TMP-SMX and micafungin. * 14) AD on CKD IV, dialysis dependent * HD ongoing; tunneled dialysis catheter placed today. * Plan: Resume routine HD schedule via tunneled line. Monitor BMP/Mg/Phos daily. Strict I/O. * 5) Volume overload with cardiomegaly/effusions * Persistent vascular congestion on CXR. * Plan: Optimize UF with HD, daily weights, repeat CXR. * 6) Anemia of CKD/critical illness * Hgb 7.7 (down from 9). * Plan: Monitor daily CBC. Transfuse PRBC if <7 or symptomatic. Continue vitamins. * 7) Thrombocytopenia severe but stable * Platelets 31. * Plan: Daily CBC. Transfuse platelets if <10K or <2030K with bleeding/procedures. Continue to hold pharmacologic DVT prophylaxis. SCDs only. * 8) Atrial fibrillation with prior QT prolongation * On amiodarone, rhythm stable. QT previously prolonged, now normalized. * Plan: Continue amiodarone 200 mg q12h. Daily EKG, telemetry. Maintain K >4, Mg >2. * 9) HFpEF / cardiomegaly * Stable BP 102/57, HR 83. * Plan: Optimize preload with HD. Continue clopidogrel, cautious fluid management. * 10) Nutrition / GI * NPO due to failed swallow studies, aspiration risk. * Plan: PEG tube placement for long-term enteral access. If not feasible, consider [place] tube. Continue pantoprazole for GI prophylaxis. * 11) Complicated candiduria * Continue micafungin, Leung removed earlier. * 11) Rehabilitation / Functional Status * PT consult placed for functional assessment, early mobilization. * 12) Prophylaxis & Supportive Care * DVT: SCDs; resume pharmacologic prophylaxis once Plt >50 K and stable. * GI: PPI. * Skin: Daily wound/stump care, pressure injury prevention. Case discussed in detail with the attending physician, including the clinical presentation, diagnostic workup, and comprehensive management plan. The duration of time spent in direct critical care management of this patient, including evaluation, review of clinical data, coordination of care, and decision-making, was 45 minutes. Plan discussed with: Patient My Orders My Orders Orders - FABRICIO CALVIN RESIDENT Procedure Category Date Status Time Chest Xray 1 View XY 06/08/25 Resulted 04:00 Venous Blood Gas RT 06/07/25 Logged 19:08 Insertion Of Venous XY 06/08/25 Resulted Cath 11:22 Dietary Evaluation Review Comments: 1) Advance to [facility] 75gm + cardiac diet 2) Armen 1 pk BID, MVI w/ minerals 1 tab daily, VitC 500mg BID, Zinc sulfate 220mg BID x 10 days 3) Monitor NPO status, lab values, weight trend, and I/O Expected Outcomes/Goals: To meet >75% estimated needs Wound to improve Fu 2-3 days Date of Service: Jun 08, 2025 Billing Provider: LAUREN MA MD Common Visit Codes: [id number] INP/OBS CARE(HIGH) FABRICIO CALVIN RESIDENT Jun 08, 2025 14:40 LAUREN MA MD Jun 08, 2025 22:16
[2025-06-08 15:17] LABS: Base Excess 1.3 mmol/L (-2.0-3.0)
--- NOTE | 2025-06-08 21:09 | DVHPN2 ---
Subjective DOS: 06/08/2025 Patient seen and examined at bedside. Remains on supplemental oxygen Overnight events reviewed Reviewed: Care Plan, H&P, Labs, Medications, Previous Orders Changes from previous H/P or p: No Changes General: Per HPI Objective Vitals Vital Signs Date Time Temp Pulse Resp B/P (MAP) Pulse Ox O2 Delivery O2 Flow Rate FiO2 06/08/25 20:00 80 21 111/48 (69) 94 06/08/25 20:00 Simple Mask* 10 99 06/08/25 19:30 99.4 99.4 Intake/Output Intake and Output 06/08/25 07:00 Intake Total 1100 ml Output Total 450 ml Balance 650 ml Intake Oral 240 ml IV Total 860 ml Tube Feeding 0 ml Output Urine Total 0 ml Stool Total 450 ml General Appearance: Alert, Cooperative, Other (Encephalopathic) HEENT: Atraumatic, PERRLA Lungs: Clear to auscultation, Other (Decreased air entry bilaterally. No wheezing or rhonchi. Bibasilar crackles.) Cardiovascular: Normal S1, Normal S2, Other (Atrial fibrillation) Abdomen: Normal bowel sounds, Soft, No tenderness, No hepatospenomegaly Genitourinary: No Apparent Abnormalities (Leung catheter) Musculoskeletal: Other Extremities: Normal pulses, Other (Left BKA stump intact, trace edema ) Neuro: Other (Awake, following commands.) Skin: Wounds (See nurse notes and pictures) Psych/Mental Status: Mental status NL, Mood NL Medications Current Medications Medications Dose Ordered Sig/Bandar Route Start Time Stop Time Status Last Admin Dose Admin Acetaminophen 650 mg Q6HP PRN PO 05/04/25 15:00 06/04/25 05:45 650 MG Sodium Chloride 10 ml QSHIFT@10,22 IV 05/19/25 22:00 06/08/25 20:45 10 ML Norepinephrine Bitartrate 32 mg/ Sodium Chloride 250 ml @ 0.938 mls/ hr Q24H IV 05/21/25 01:00 06/05/25 21:11 0.938 MLS/HR Pantoprazole Sodium 40 mg DAILY IV 05/21/25 10:00 06/08/25 11:36 40 MG Artificial Tears 1 drop Q6HP PRN EACHEYE 05/21/25 05:00 06/03/25 21:42 1 DROP Diagnostic Test (Pha) 1 strip Q6HR 05/23/25 00:00 06/08/25 18:18 1 STRIP Insulin Human Regular FOLLOW SLIDING SCALE Q6HR SC 05/23/25 00:00 06/08/25 06:15 4 UNITS Dextrose 50 ml UD IV 05/22/25 22:00 05/24/25 11:36 50 ML Albumin Human 100 ml @ 100 mls/hr PRN PRN IV 05/24/25 06:45 06/03/25 06:10 100 MLS/HR Enteral Nutritional Formula 1,000 ml 50ML/HR GT 05/24/25 17:30 06/06/25 00:22 1,000 ML Folic Acid 1 mg DAILY PO 05/25/25 10:00 06/08/25 11:35 1 MG Multivitamins 1 tab DAILY PO 05/25/25 10:00 06/08/25 11:35 1 TAB Cyanocobalamin 1,000 mcg DAILY PO 05/25/25 10:00 06/08/25 11:36 1,000 MCG Pyridoxine HCl 50 mg DAILY PO 05/25/25 10:00 06/07/25 11:43 50 MG Ondansetron HCl 4 mg Q4HPRN PRN IV 05/25/25 18:00 Micafungin Sodium 100 mg/Sodium Chloride 100 ml @ 100 mls/hr DAILY IV 05/28/25 10:00 06/08/25 11:37 100 MLS/HR Lactulose 30 ml BID GT 05/28/25 10:00 06/08/25 20:43 30 ML Trimethoprim/ Sulfamethoxazole 0 ml @ 0 mls/hr PER PHARMACY IV 05/28/25 09:45 Trimethoprim/ Sulfamethoxazole 10 ml/Dextrose 260 ml @ 173.333 mls/hr Q12HR IV 05/28/25 22:00 06/08/25 20:43 173.333 MLS/HR Amiodarone HCl 200 mg Q12HR GT 05/29/25 10:00 06/08/25 20:43 200 MG Clopidogrel Bisulfate 75 mg DAILY NG 06/02/25 18:30 Cancel Clopidogrel Bisulfate 75 mg DAILY NG 06/03/25 10:00 06/07/25 11:42 75 MG Albuterol 1.25 mg Q8HP PRN NEB 06/03/25 14:00 06/08/25 14:04 1.25 MG Acetylcysteine 200 mg Q8HR NEB 06/03/25 14:00 06/08/25 14:05 200 MG Melatonin 5 mg HS PO 06/04/25 22:00 06/08/25 20:44 5 MG Atorvastatin Calcium 40 mg HS PO 06/07/25 22:00 06/08/25 20:43 40 MG Laboratory Results Laboratory Tests 06/08/25 05:17 Chemistry Test 06/08/25 05:17 Albumin 4.3 g/dL (3.2-4.8) Calcium Level 9.5 mg/dL (8.7-10.4) Total Protein 6.4 g/dL (5.7-8.2) LFT Test 06/08/25 05:17 Alanine Aminotransferase (ALT) 19 U/L (7-40) Alkaline Phosphatase 103 U/L (46-116) Aspartate Amino Transferase (AST) 17 U/L (13-40) Total Bilirubin 1.9 mg/dL (0.2-1.0) H Urinalysis Test 05/16/25 15:18 05/20/25 01:02 Urine Hyaline Casts Few /lpf (0 - 2) Urine Mucus Few (None Seen) Urine Yeast (Budding) Many /hpf (None Seen) Urine Osmolality 359 mOsm/kg Urine Creatinine 122.44 mg/dL (30.0-125.0) Urine Protein/Creatinine Ratio 1.06 Urine Sodium 17 mmol/L (40-220) L Urine Total Protein 130.0 mg/dL (1-14) H Urine Color Dark yellow (Yellow) Urine Clarity Ex.turbid (Clear) Urine pH 5.5 (5.0-9.0) Urine Specific [place] 1.013 (1.001-1.035) Urine Protein 1+ (Negative) H Urine Ketones Negative (Negative) Urine Blood 1+ /uL (Negative) H Urine Nitrite Negative (Negative) Urine Bilirubin Negative (Negative) Urine Urobilinogen Normal mg/dL (Negative) Urine Leukocyte Esterase 3+ /uL (Negative) Urine RBC 62 /hpf (0 - 3) Urine WBC Clumps Present /hpf (None Seen) Urine Microscopic WBC 2744 /HPF (0-3) H Urine Squamous Epithelial Cells None seen /hpf (<5) Urine Bacteria None seen /hpf (None Seen) Urine Glucose Normal mg/dL (Normal) Blood Gas Results Test 06/07/25 22:49 06/08/25 15:09 FiO2 % 60.0 50.0 Arterial Blood pH 7.505 (7.350-7.450) Microbiology Microbiology Date/Time Source Procedure Growth Status 05/27/25 15:55 Sputum Gram Stain - Final Complete 05/27/25 15:55 Respiratory Culture - Final Stenotrophomonas maltophilia Complete 05/20/25 18:09 Nose MRSA Screen - Final Complete 05/20/25 01:02 Urine - [place] Urine Culture - Final Yeast, not Dulce albicans Complete 05/19/25 08:14 Blood Blood Culture - Final NO GROWTH AFTER 5 DAYS OF INCUBATION. Complete Assessment/Plan Assessment/Plan Impression: Acute hypoxic respiratory failure Dependence on supplemental oxygen Severe sepsis Atrial fibrillation with RVR, rate controlled now Pancytopenia Left lower extremity gangrene with severe peripheral arterial disease Status post left [id number] amputation Acute kidney injury secondary to vasomotor nephropathy On hemodialysis Pneumonia secondary to stenotrophomonas maltophilia, Pseudomonas aeruginosa Complicated cystitis with the use Metabolic encephalopathy Coronary artery disease Thrombocytopenia Events: Patient currently on supplemental oxygen, on 6 LPM simple mask Taper O2 as tolerated BIPAP PRN. Continue antibiotics, antifungals Continue bronchodilators Chest physiotherapy Swallow evaluation Patient is high risk for aspiration HOB elevation Aspiration precautions Hemodialysis per Nephrology - HD planned for tomorrow S/p tunneled catheter placement Monitor renal function Monitor electrolytes. Supplement as necessary. Monitor ins and outs Nephrology recs appreciated. Note, pt passed prior swallow eval but had some aspiration Continue tube feeds via NGT for nutritional support Monitor hemoglobin Monitor platelets. Wound care. PT evaluation Labs and imaging reviewed. Rest of plan as noted below. Plan: S/p extubation Continue supplemental oxygen Titrate to keep O2 sats above 92%. Pressors as necessary for hemodynamic support. Titrate to keep MAP above 65 mmHg/SBP above 90 mmHg. Continue antibiotics and antifungals. F/u cultures. Repeat sputum culture notable for Gram-negative rods. Continue bronchodilators Amiodarone PO. Monitor platelets. Monitor hgb. Monitor renal function due to Acute kidney injury. Monitor electrolytes. Supplement as necessary. Monitor ins and outs HD per Nephrology Nutritional support. Accucheks, ISS. GI/DVT prophylaxis. Prognosis: Poor given multiple comorbidities. Rest of plan per hospitalist and other consultants. A total of 51 minutes of clinical care time was spent reviewing the patient record, examining the patient, making a diagnostic and therapeutic plan, discussing this plan with the medical personnel, following up on diagnostic studies and following the patient for clinical stability excluding any and all procedures. At least 50% of this time was spent in direct, [id number] contact. Thank you for allowing me to participate in this patient's care. Further recommendations will depend on patient's clinical course. Please do not hesitate to contact me if you have any questions or concerns. This medical document was created using an electronic medical record system with [employer] dictation system. Although this document has been carefully reviewed, there may still be some phonetic and typographical errors. These areas are purely typographical due to imperfections of the software programs, and do not reflect any compromise in the patient's medical care. Plan discussed with: Patient, Other (AIME Cisneros) Visit Coding Pulmonary Billing Provider: SHALINI BENITES MD Date of Service if different f: Jun 08, 2025 Common Visit Codes: [id number] INP/OBS CARE(HIGH) SHALINI BENITES MD Jun 08, 2025 21:09
[2025-06-08] MEDS: ALBUTEROL SULF 2.5 MG/0.5ML(0.5%) NEB SOLN ONE (21:28)
[2025-06-08] MEDS: ACETYLCYSTEINE 20%(200MG/ML) SOL 4ML ONE (21:28)
--- NOTE | 2025-06-08 22:33 | DVHPN2 ---
Progress Note Date Seen: Jun 08, 2025 Has the PT tested + for MRSA If YES, has PT been informed?: No Medical Necessity Reason Pt with a Central, PICC or Fol: Yes The following are medically ne: PICC Line, Leung Catheter Subjective Patient reports: No new complaints Review of Systems: Deferred Objective vital signs Vital Sign Date Time Temp Pulse Resp B/P (MAP) Pulse Ox O2 Delivery O2 Flow Rate FiO2 06/08/25 22:00 23 98 Simple Mask* 8 60 06/08/25 22:00 77 104/54 (71) 06/08/25 19:30 99.4 99.4 Total Intake and Output 06/07/25 06/07/25 06/08/25 14:59 22:59 06:59 Intake Total 360 ml 370 ml 370 ml Output Total 250 ml 200 ml Balance 360 ml 120 ml 170 ml medications Current Medications Medications Dose Ordered Sig/Bandar Route Start Time Stop Time Status Last Admin Dose Admin Acetaminophen 650 mg Q6HP PRN PO 05/04/25 15:00 06/04/25 05:45 650 MG Sodium Chloride 10 ml QSHIFT@10,22 IV 05/19/25 22:00 06/08/25 20:45 10 ML Norepinephrine Bitartrate 32 mg/ Sodium Chloride 250 ml @ 0.938 mls/ hr Q24H IV 05/21/25 01:00 06/05/25 21:11 0.938 MLS/HR Pantoprazole Sodium 40 mg DAILY IV 05/21/25 10:00 06/08/25 11:36 40 MG Artificial Tears 1 drop Q6HP PRN EACHEYE 05/21/25 05:00 06/03/25 21:42 1 DROP Diagnostic Test (Pha) 1 strip Q6HR 05/23/25 00:00 06/08/25 18:18 1 STRIP Insulin Human Regular FOLLOW SLIDING SCALE Q6HR SC 05/23/25 00:00 06/08/25 06:15 4 UNITS Dextrose 50 ml UD IV 05/22/25 22:00 05/24/25 11:36 50 ML Albumin Human 100 ml @ 100 mls/hr PRN PRN IV 05/24/25 06:45 06/03/25 06:10 100 MLS/HR Enteral Nutritional Formula 1,000 ml 50ML/HR GT 05/24/25 17:30 06/06/25 00:22 1,000 ML Folic Acid 1 mg DAILY PO 05/25/25 10:00 06/08/25 11:35 1 MG Multivitamins 1 tab DAILY PO 05/25/25 10:00 06/08/25 11:35 1 TAB Cyanocobalamin 1,000 mcg DAILY PO 05/25/25 10:00 06/08/25 11:36 1,000 MCG Pyridoxine HCl 50 mg DAILY PO 05/25/25 10:00 06/07/25 11:43 50 MG Ondansetron HCl 4 mg Q4HPRN PRN IV 05/25/25 18:00 Micafungin Sodium 100 mg/Sodium Chloride 100 ml @ 100 mls/hr DAILY IV 05/28/25 10:00 06/08/25 11:37 100 MLS/HR Lactulose 30 ml BID GT 05/28/25 10:00 06/08/25 20:43 30 ML Trimethoprim/ Sulfamethoxazole 0 ml @ 0 mls/hr PER PHARMACY IV 05/28/25 09:45 Trimethoprim/ Sulfamethoxazole 10 ml/Dextrose 260 ml @ 173.333 mls/hr Q12HR IV 05/28/25 22:00 06/08/25 20:43 173.333 MLS/HR Amiodarone HCl 200 mg Q12HR GT 05/29/25 10:00 06/08/25 20:43 200 MG Clopidogrel Bisulfate 75 mg DAILY NG 06/02/25 18:30 Cancel Clopidogrel Bisulfate 75 mg DAILY NG 06/03/25 10:00 06/07/25 11:42 75 MG Albuterol 1.25 mg Q8HP PRN NEB 06/03/25 14:00 06/08/25 21:27 1.25 MG Acetylcysteine 200 mg Q8HR NEB 06/03/25 14:00 06/08/25 21:27 200 MG Melatonin 5 mg HS PO 06/04/25 22:00 06/08/25 20:44 5 MG Atorvastatin Calcium 40 mg HS PO 06/07/25 22:00 06/08/25 20:43 40 MG Examination: GENERAL:Abnormal, LUNGS:Abnormal, MSK:Abnormal, NEURO:Normal laboratory and microbiology Laboratory Tests 06/08/25 05:17 Test 06/08/25 05:17 Range/Units Serum Glucose 202 H 74-106 mg/dL Microbiology Date/Time Source Procedure Growth Status 05/27/25 15:55 Sputum Gram Stain - Final Complete 05/27/25 15:55 Respiratory Culture - Final Stenotrophomonas maltophilia Complete 05/20/25 18:09 Nose MRSA Screen - Final Complete 05/20/25 01:02 Urine - Leung Port Urine Culture - Final Yeast, not Dulce albicans Complete 05/19/25 08:14 Blood Blood Culture - Final NO GROWTH AFTER 5 DAYS OF INCUBATION. Complete Problem List/Assessment/Plan Problem List/Assessment/Plan Acute kidney injury superimposed Chronic Kidney Disease stage IV secondary hemodynamic mediated, FeNa < 1% Chronic kidney disease stage IV followed by Dr. Ponce Gangrene left foot, status post left below-knee amputation 05/20 Left lower extremity DVT Ventilator-dependent hypoxic respiratory failure intubated /extubated Diabetes mellitus type 2 Chronic diastolic Congestive heart failure NSTEMI Hyponatremia due to excess H2O Dropping hemoglobin Anemia due to blood loss Metabolic acidosis Septic shock History of testicular cancer Cellulitis lower extremity thrombocytopenia Recommendations HD 06/09 Epogen with dialysis Guarded prognosis chair time with DCD Plan discussed with: Patient My Orders My Orders Orders - SHANTANU BECK MD Procedure Category Date Status Time Hemodialysis Orders ORDERS 06/09/25 Transmitted 04:00 Dietary Evaluation Review Comments: 1) Advance to [facility] 75gm + cardiac diet 2) Armen 1 pk BID, MVI w/ minerals 1 tab daily, VitC 500mg BID, Zinc sulfate 220mg BID x 10 days 3) Monitor NPO status, lab values, weight trend, and I/O Expected Outcomes/Goals: To meet >75% estimated needs Wound to improve Fu 2-3 days SHANTANU BECK MD Jun 08, 2025 22:33
[2025-06-09] VITALS (90 sets, daily range): BP systolic 83–131; BP diastolic 31–72; PULSE 72–105; RESP 16–34; TEMP 97.6–98.7; O2SAT 82–100
[2025-06-09 06:10] LABS: Hemoglobin 7.3 g/dL (13.5-17.5)
[2025-06-09 06:12] LABS: Hematocrit 21.1 % (41.0-53.0); Mean Corpuscular Hemoglobin 34.0 pg (28.0-32.0); Mean Corpuscular Volume 98.5 fL (80.0-100.0); Nucleated Red Blood Cells % 1.3 %
[2025-06-09] MEDS: ACETYLCYSTEINE 20%(200MG/ML) SOL 4ML ONE ×2 (06:21→21:58)
[2025-06-09] MEDS: ALBUTEROL SULF 2.5 MG/0.5ML(0.5%) NEB SOLN ONE ×2 (06:21→21:58)
[2025-06-09 06:22] LABS: Chloride 98 mmol/L (98-107); Potassium 4.1 mmol/L (3.5-5.1); Sodium 140 mmol/L (136-145)
[2025-06-09 06:23] LABS: Anion Gap 15 (5-15); Carbon Dioxide 27 mmol/L (20-31)
[2025-06-09 06:24] LABS: Calcium 9.8 mg/dL (8.7-10.4)
[2025-06-09 06:28] LABS: BUN/Creatinine Ratio 10.0 (10.0-20.0); Glucose 97 mg/dL (74-106)
[2025-06-09 06:30] LABS: Blood Urea Nitrogen 30 mg/dL (9-23)
[2025-06-09] MEDS ORDERED: ALBUMIN 25% 100 ML IV PRN (08:30)
--- NOTE | 2025-06-09 09:22 | DVH ---
INDICATION: INCREASED CHEST CONGESTION, DESATT EPISODE TECHNIQUE: Single frontal view of the chest was obtained COMPARISON: XY CHEST XRAY 1 VIEW on DOS: 06/08/25, XY CHEST PORTABLE on DOS: 06/07/25, XY CHEST PORTABL E on DOS: 06/05/25, XY CHEST PORTABLE on DOS: 06/05/25, XY CHEST XRAY 1 VIEW on DOS: 06/04/25, XY CHEST XRAY 1 VIEW on DOS: 06/08/25 FINDINGS: Lines and Tubes: Unchanged. Lungs: Stable appearing moderate bilateral pleural effusions and diffuse increased prominence of the pulmonary vasculature. No evidence of focal consolidation. No pneumothorax. Cardiomediastinal contours: Unremarkable Bones: Unremarkable IMPRESSION: 1. Stable appearing moderate bilateral pleural effusions and diffuse increased prominence of the pulm onary vasculature. 2. Lines and tubes unchanged.
--- NOTE | 2025-06-09 10:42 | DVHPN2 ---
Progress Note Date Seen: Jun 09, 2025 Has the PT tested + for MRSA If YES, has PT been informed?: No Medical Necessity Reason Pt with a Central, PICC or Fol: Yes The following are medically ne: PICC Line, Leung Catheter Subjective Patient reports: Other (Poor p.o. intake) Review of Systems: Deferred Objective vital signs Vital Sign Date Time Temp Pulse Resp B/P (MAP) Pulse Ox O2 Delivery O2 Flow Rate FiO2 06/09/25 07:00 74 22 109/45 (66) 100 06/09/25 06:39 Simple Mask* 10 99 06/09/25 04:00 97.6 97.6 Total Intake and Output 06/08/25 06/08/25 06/09/25 15:00 23:00 07:00 Intake Total 360 ml 260 ml 160 ml Output Total 100 ml 100 ml Balance 360 ml 160 ml 60 ml medications Current Medications Medications Dose Ordered Sig/Bandar Route Start Time Stop Time Status Last Admin Dose Admin Acetaminophen 650 mg Q6HP PRN PO 05/04/25 15:00 06/04/25 05:45 650 MG Sodium Chloride 10 ml QSHIFT@10,22 IV 05/19/25 22:00 06/08/25 20:45 10 ML Norepinephrine Bitartrate 32 mg/ Sodium Chloride 250 ml @ 0.938 mls/ hr Q24H IV 05/21/25 01:00 06/05/25 21:11 0.938 MLS/HR Pantoprazole Sodium 40 mg DAILY IV 05/21/25 10:00 06/08/25 11:36 40 MG Artificial Tears 1 drop Q6HP PRN EACHEYE 05/21/25 05:00 06/03/25 21:42 1 DROP Diagnostic Test (Pha) 1 strip Q6HR 05/23/25 00:00 06/09/25 06:33 1 STRIP Insulin Human Regular FOLLOW SLIDING SCALE Q6HR SC 05/23/25 00:00 06/09/25 00:01 8 UNITS Dextrose 50 ml UD IV 05/22/25 22:00 05/24/25 11:36 50 ML Albumin Human 100 ml @ 100 mls/hr PRN PRN IV 05/24/25 06:45 06/03/25 06:10 100 MLS/HR Enteral Nutritional Formula 1,000 ml 50ML/HR GT 05/24/25 17:30 06/06/25 00:22 1,000 ML Folic Acid 1 mg DAILY PO 05/25/25 10:00 06/08/25 11:35 1 MG Multivitamins 1 tab DAILY PO 05/25/25 10:00 06/08/25 11:35 1 TAB Cyanocobalamin 1,000 mcg DAILY PO 05/25/25 10:00 06/08/25 11:36 1,000 MCG Pyridoxine HCl 50 mg DAILY PO 05/25/25 10:00 06/07/25 11:43 50 MG Ondansetron HCl 4 mg Q4HPRN PRN IV 05/25/25 18:00 Micafungin Sodium 100 mg/Sodium Chloride 100 ml @ 100 mls/hr DAILY IV 05/28/25 10:00 06/08/25 11:37 100 MLS/HR Lactulose 30 ml BID GT 05/28/25 10:00 06/08/25 20:43 30 ML Trimethoprim/ Sulfamethoxazole 0 ml @ 0 mls/hr PER PHARMACY IV 05/28/25 09:45 Trimethoprim/ Sulfamethoxazole 10 ml/Dextrose 260 ml @ 173.333 mls/hr Q12HR IV 05/28/25 22:00 06/08/25 20:43 173.333 MLS/HR Amiodarone HCl 200 mg Q12HR GT 05/29/25 10:00 06/08/25 20:43 200 MG Clopidogrel Bisulfate 75 mg DAILY NG 06/02/25 18:30 Cancel Clopidogrel Bisulfate 75 mg DAILY NG 06/03/25 10:00 06/07/25 11:42 75 MG Albuterol 1.25 mg Q8HP PRN NEB 06/03/25 14:00 06/09/25 06:28 1.25 MG Acetylcysteine 200 mg Q8HR NEB 06/03/25 14:00 06/09/25 06:27 200 MG Melatonin 5 mg HS PO 06/04/25 22:00 06/08/25 20:44 5 MG Atorvastatin Calcium 40 mg HS PO 06/07/25 22:00 06/08/25 20:43 40 MG Albumin Human 100 ml @ 100 mls/hr ONCE PRN IV 06/09/25 08:45 Examination: GENERAL:Abnormal, LUNGS:Abnormal, MSK:Abnormal, SKIN:Abnormal, NEURO:Normal laboratory and microbiology Laboratory Tests 06/09/25 05:38 Test 06/09/25 05:38 Range/Units Serum Glucose 97 # 74-106 mg/dL Microbiology Date/Time Source Procedure Growth Status 05/27/25 15:55 Sputum Gram Stain - Final Complete 05/27/25 15:55 Respiratory Culture - Final Stenotrophomonas maltophilia Complete 05/20/25 18:09 Nose MRSA Screen - Final Complete 05/20/25 01:02 Urine - Leung Port Urine Culture - Final Yeast, not Dulce albicans Complete 05/19/25 08:14 Blood Blood Culture - Final NO GROWTH AFTER 5 DAYS OF INCUBATION. Complete Problem List/Assessment/Plan Problem List/Assessment/Plan Acute kidney injury superimposed Chronic Kidney Disease stage IV secondary hemodynamic mediated, FeNa < 1% Chronic kidney disease stage IV followed by Dr. Ponce Gangrene left foot, status post left below-knee amputation 05/20 Left lower extremity DVT Ventilator-dependent hypoxic respiratory failure intubated /extubated Diabetes mellitus type 2 Chronic diastolic Congestive heart failure NSTEMI Hyponatremia due to excess H2O Dropping hemoglobin Anemia due to blood loss Metabolic acidosis Septic shock History of testicular cancer Cellulitis lower extremity thrombocytopenia Recommendations Seen on HD 06/09 Epogen with dialysis Guarded prognosis chair time with DCD Poor long-term prognosis Plan discussed with: Patient, Other My Orders My Orders Orders - SHANTANU BECK MD Procedure Category Date Status Time Hemodialysis Orders ORDERS 06/09/25 Transmitted 04:00 Dietary Evaluation Review Comments: 1) Advance to CCHO 75gm + cardiac diet 2) Armen 1 pk BID, MVI w/ minerals 1 tab daily, VitC 500mg BID, Zinc sulfate 220mg BID x 10 days 3) Monitor NPO status, lab values, weight trend, and I/O Expected Outcomes/Goals: To meet >75% estimated needs Wound to improve Fu 2-3 days SHANTANU BECK MD Jun 09, 2025 10:42
[2025-06-09] MEDS: ALBUMIN 25% 100 ML IV PRN (11:15)
[2025-06-09] MEDS: DOPamine 1600MCG/ML D5W 250 ML IV ONE (13:14)
--- NOTE | 2025-06-09 13:30 | DVHINCON2 ---
GI Consult Consult Note GI consult note Date of Consultation: 06/09/2025 Chief Complaint: Evaluate the patient for PEG tube placement Referring Physician: Dr. Doshi H&P: 74-year-old male presented to hospital with complains of generalized weakness and been hospitalized since 05/04/2025. Attempted oral feeding with repeat swallow evaluation, question will failed multiple swallow studies. Patient is unable to swallow even small sips of water and has weak cough reflex and demonstrates high aspiration risk. Patient is on NG tube feedings at this time. Patient is on Plavix Past Medical History: CAD (tripple-vessel), Cancer, CKF (stage III), DM (type II w/peripheral neuropathy), High Lipids, HTN, PAD, Left lower extremity DVT Past Surgical History: Tonsillectomy debridement of necrotic right toe Social History: NO smoking, drinking ETOH and use of illegal drugs. Family History: Noncontributory Review of Systems: Heart: no chest pain, no chest pressure Lung: + cough, difficulty breathing Abdomen: see HPI Physical exam: General: Moderate distress, AAOX3 Chest: Decreased breath sounds, tachypnea Heart: RRR, no murmur Abdomen: non-distended, no tenderness to palpation, +BS Labs: Test 06/09/25 05:38 Range/Units Serum Glucose 97 # 74-106 mg/dL Microbiology Date/Time Source Procedure Growth Status 05/27/25 15:55 Sputum Gram Stain - Final Complete 05/27/25 15:55 Respiratory Culture - Final Stenotrophomonas maltophilia Complete 05/20/25 18:09 Nose MRSA Screen - Final Complete 05/20/25 01:02 Urine - Leung [place] Urine Culture - Final Yeast, not Dulce albicans Complete 05/19/25 08:14 Blood Blood Culture - Final NO GROWTH AFTER 5 DAYS OF INCUBATION. Complete Imaging: [facility] 05/25/2025 IMPRESSION: Nonobstructive bowel gas pattern. Nasogastric tube tip in the stomach. Leung catheter within the bladder Large stool burden. Assessment: Severe sepsis/pneumonia Acute hypoxic respiratory failure AD superimposed on CKD Atrial fibrillation Thrombocytopenia and anemia Metabolic encephalopathy improving Plan: Discussed with Dr. Valdez Hold blood thinners Discussed EGD with PEG placement extensively with patient including discussion of infection, bleeding, perforation risk and risk with sedation also. Although patient agreed for PEG placement yesterday at this time patient is refusing procedure Continue NG-tube feeding We will reassess for possible EGD with PEG placement with patient is medically stable Discussed plan with patient and RN Thank you for this consult Date of Service: Jun 09, 2025 Billing Provider: JUDY WILLIS Common Visit Codes: CONSULT ONLY Consultation Codes: [id number] CONSULT <60MIN JUDY WILLIS Jun 09, 2025 13:30
--- NOTE | 2025-06-09 13:40 | DVHPNRES ---
Progress Note Date Seen: Jun 09, 2025 Resident Creating Document: FABRICIO CALVIN RESIDENT Has the PT tested + for MRSA If YES, has PT been informed?: No Medical Necessity Reason Pt with a Central, PICC or Fol: Yes The following are medically ne: PICC Line, Leung Catheter Subjective Review of Systems Patient had a significant desaturation overnight, with SpO? dropping to 60% while on BiPAP. He was described as super wet with signs of volume overload. He remained on BiPAP overnight, later transitioned to simple mask 10 L/min O? with saturations maintained in the lowmid 90s, but continues to require intermittent BiPAP support. He also had an episode of hypotension overnight with SBP dropping into the 70s, but currently stabilized at ~102/57 without vasopressors. Today, the patient is tachypneic, continues to appear volume overloaded, and is planned for hemodialysis with ultrafiltration. Diuresis initiated per nephrology. GI consult placed for evaluation of PEG placement given recurrent failed swallow evaluations and aspiration risk. Patient is alert, communicates, and demonstrates understanding. Family/patient goals of care discussion ongoing, with consideration for hospice depending on patient wishes. Labs: * Hgb 7.3 (? from 7.7) * CMP unremarkable except BUN 30, Cr 3.0 (dialysis dependent) * WBC normal range * Electrolytes stable * ABG pending * CXR: prior cardiomegaly, vascular congestion, effusions; repeat imaging pending today * Echocardiogram ordered today for volume and cardiac assessment Plan today: Continue BiPAP and simple mask as needed, initiate UF with HD, GI evaluation for PEG, palliative/hospice discussion, and supportive management. Review of Systems * General: Weakness, fatigue, no fever or chills. * Neuro: Awake, oriented, follows commands. * Respiratory: Severe dyspnea overnight, cough weak, aspiration risk. * Cardiac: No chest pain, transient hypotension overnight. * GI: Dysphagia, recurrent aspiration risk, * : Anuric, dialysis dependent. * Extremities: Edema present. * Skin: No acute lesions, BKA stump intact. Objective vital signs Vital Sign Date Time Temp Pulse Resp B/P (MAP) Pulse Ox O2 Delivery O2 Flow Rate FiO2 06/09/25 07:00 74 22 109/45 (66) 100 06/09/25 06:39 Simple Mask* 10 99 06/09/25 04:00 97.6 97.6 Total Intake and Output 06/08/25 06/08/25 06/09/25 15:00 23:00 07:00 Intake Total 360 ml 260 ml 160 ml Output Total 100 ml 100 ml Balance 360 ml 160 ml 60 ml medications Current Medications Medications Dose Ordered Sig/Bandar Route Start Time Stop Time Status Last Admin Dose Admin Acetaminophen 650 mg Q6HP PRN PO 05/04/25 15:00 06/04/25 05:45 650 MG Sodium Chloride 10 ml QSHIFT@10,22 IV 05/19/25 22:00 06/09/25 11:19 10 ML Norepinephrine Bitartrate 32 mg/ Sodium Chloride 250 ml @ 0.938 mls/ hr Q24H IV 05/21/25 01:00 06/05/25 21:11 0.938 MLS/HR Pantoprazole Sodium 40 mg DAILY IV 05/21/25 10:00 06/09/25 13:15 40 MG Artificial Tears 1 drop Q6HP PRN EACHEYE 05/21/25 05:00 06/03/25 21:42 1 DROP Diagnostic Test (Pha) 1 strip Q6HR 05/23/25 00:00 06/09/25 11:54 1 STRIP Insulin Human Regular FOLLOW SLIDING SCALE Q6HR SC 05/23/25 00:00 06/09/25 00:01 8 UNITS Dextrose 50 ml UD IV 05/22/25 22:00 05/24/25 11:36 50 ML Albumin Human 100 ml @ 100 mls/hr PRN PRN IV 05/24/25 06:45 06/03/25 06:10 100 MLS/HR Enteral Nutritional Formula 1,000 ml 50ML/HR GT 05/24/25 17:30 06/06/25 00:22 1,000 ML Folic Acid 1 mg DAILY PO 05/25/25 10:00 06/09/25 11:17 1 MG Multivitamins 1 tab DAILY PO 05/25/25 10:00 06/09/25 11:17 1 TAB Cyanocobalamin 1,000 mcg DAILY PO 05/25/25 10:00 06/09/25 11:18 1,000 MCG Pyridoxine HCl 50 mg DAILY PO 05/25/25 10:00 06/09/25 11:18 50 MG Ondansetron HCl 4 mg Q4HPRN PRN IV 05/25/25 18:00 Micafungin Sodium 100 mg/Sodium Chloride 100 ml @ 100 mls/hr DAILY IV 05/28/25 10:00 06/08/25 11:37 100 MLS/HR Trimethoprim/ Sulfamethoxazole 0 ml @ 0 mls/hr PER PHARMACY IV 05/28/25 09:45 Trimethoprim/ Sulfamethoxazole 10 ml/Dextrose 260 ml @ 173.333 mls/hr Q12HR IV 05/28/25 22:00 06/09/25 12:28 173.333 MLS/HR Amiodarone HCl 200 mg Q12HR GT 05/29/25 10:00 06/09/25 11:17 200 MG Clopidogrel Bisulfate 75 mg DAILY NG 06/02/25 18:30 Cancel Clopidogrel Bisulfate 75 mg DAILY NG 06/03/25 10:00 06/09/25 11:17 75 MG Albuterol 1.25 mg Q8HP PRN NEB 06/03/25 14:00 06/09/25 06:28 1.25 MG Acetylcysteine 200 mg Q8HR NEB 06/03/25 14:00 06/09/25 06:27 200 MG Melatonin 5 mg HS PO 06/04/25 22:00 06/08/25 20:44 5 MG Atorvastatin Calcium 40 mg HS PO 06/07/25 22:00 06/08/25 20:43 40 MG Albumin Human 100 ml @ 100 mls/hr ONCE PRN IV 06/09/25 08:45 Examination * General: Frail, tachypneic, fatigued but awake and alert * HEENT: Simple mask in place, weak cough reflex * CV: Regular rhythm, HR ~80s, no murmurs, perfusion borderline * Lungs: Crackles bilaterally, decreased bases, wet breath sounds, tachypnea (RR [id number]) * Abdomen: Soft, nondistended, GT in place, non-tender * : Anuric, on dialysis * Extremities: 12+ edema, L BKA stump intact * Neuro: Oriented, no focal deficits * Skin/Lines: Tunneled dialysis catheter, clean/dry laboratory and microbiology Laboratory Tests 06/09/25 05:38 Test 06/09/25 05:38 Range/Units Serum Glucose 97 # 74-106 mg/dL Microbiology Date/Time Source Procedure Growth Status 05/27/25 15:55 Sputum Gram Stain - Final Complete 05/27/25 15:55 Respiratory Culture - Final Stenotrophomonas maltophilia Complete 05/20/25 18:09 Nose MRSA Screen - Final Complete 05/20/25 01:02 Urine - Leung [place] Urine Culture - Final Yeast, not Dulce albicans Complete 05/19/25 08:14 Blood Blood Culture - Final NO GROWTH AFTER 5 DAYS OF INCUBATION. Complete Problem List/Assessment/Plan Problem List/Assessment/Plan Assessment Critical, complex multi-organ failure patient. 1. Severe Sepsis / Pneumonia due to MDR organisms (Stenotrophomonas, Pseudomonas, Enterobacter). On broad antimicrobials (Ciprofloxacin, TMP-SMX, Micafungin).POA 2. Acute hypoxic respiratory failure with post-extubation failureactive management due to Pneumonia 3. 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 Volume overload / Edema due to oligoanuria and CHF POA 5. Atrial fibrillation previously on amiodarone drip; now rate-controlled. 6. Acute on Chronic HFpEF NSTEMI stable, compensated. due to sepsis 7. PAD with Left foot gangrene s/p BKA stable surgical site. POA 8. Thrombocytopenia & Anemia likely multifactorial (sepsis, critical illness, marrow suppression, renal disease). Received platelets. 9. Metabolic encephalopathy improving; patient follows commands. 10. History of DVT prophylaxis complicated by thrombocytopenia. 11. Poor prognosis given multi-organ dysfunction, infections, dialysis- dependence. Plan Respiratory * Continue BiPAP overnight and as needed; simple mask 10 L between sessions. * Repeat ABG and CXR today. * RT care: suctioning, bronchodilators, chest physiotherapy. * Prepare for possible re-intubation if refractory hypoxemia. Cardiac / HF * HD with UF today; diuretics per nephrology. * Echo ordered for reassessment. * Monitor hemodynamics, maintain MAP ?65. Renal * Continue scheduled HD via tunneled catheter. * BMP, Mg, Phos daily. Strict I/O, daily weights. * Heparin-free HD if Plt <50 K. Hematology * Anemia: Transfuse PRBC if Hgb <7 or symptomatic. * Thrombocytopenia: Platelets if <10 K or <2030 K with bleeding/procedures. * Hold pharmacologic anticoagulation; SCDs only. GI / Nutrition * Strict NPO. * Continue TF until PEG placed. * GI consult today for PEG tube placement. * Aspiration precautions. Infectious Disease * Continue TMP-SMX micafungin per ID. * Avoid QT-prolonging agents. Endocrine * Insulin sliding scale; BG target [id number]. Palliative Care * Discuss hospice option with patient/family. * Social work and palliative consult placed. Prophylaxis & Bundles * DVT: SCDs only (Plt 31). * GI: Pantoprazole daily. * CLABSI: line necessity review daily. * Skin: reposition q2h, stump care. * Complicated candiduria * Continue micafungin, Leung removed earlier. * Rehabilitation / Functional Status * PT consult placed for functional assessment, early mobilization. * Case discussed in detail with the attending physician, including the clinical presentation, diagnostic workup, and comprehensive management plan. The duration of time spent in direct critical care management of this patient, including evaluation, review of clinical data, coordination of care, and decision-making, was 45 minutes. Plan discussed with: Patient My Orders My Orders Orders - FABRICIO CALVIN RESIDENT Procedure Category Date Status Time Venous Blood Gas RT 06/09/25 Logged 04:00 Abg W/ Co-Ox RT 06/08/25 Logged 15:11 * Ballet Dancer CONS 06/09/25 Transmitted Consult * Gi Dvh Inspector Final Assembly Electrical CONS 06/09/25 Transmitted 08:43 Complete Blood Count LAB 06/10/25 Verified 04:00 Basic Metabolic Panel LAB 06/10/25 Verified 04:00 Magnesium LAB 06/10/25 Verified 04:00 Chest Xray 1 View XY 06/10/25 Logged 04:00 Dietary Evaluation Review Comments: 1) [facility] + cardiac diet 2) Armen 1 pk BID, MVI w/ minerals 1 tab daily, VitC 500mg BID, Zinc sulfate 220mg BID x 10 days 3) Monitor NPO status, lab values, weight trend, and I/O Expected Outcomes/Goals: To meet >75% estimated needs Wound to improve Fu 2-3 days Date of Service: Jun 09, 2025 Billing Provider: LAUREN MA MD Common Visit Codes: [id number] CARE 30-74 MIN FABRICIO CALVIN RESIDENT Jun 09, 2025 13:40 LAUREN MA MD Jun 10, 2025 19:45
[2025-06-09 22:27] LABS: Base Excess -1.6 mmol/L (-2.0-3.0)
[2025-06-09] MEDS: ETOMIDATE (2MG/ML) 20ML VIAL IV ONE ×2 (23:06→23:13)
[2025-06-09] MEDS: MIDAZOLAM DRIP 50 mg/50mL 50 ML IV ONE (23:07)
[2025-06-09] MEDS: ROCURONIUM 10MG/ML 10ML VIAL IV ONE ×2 (23:07→23:12)
[2025-06-09] MEDS: fentaNYL Drip 2500mCg/250mlNS 250 ML IV ONE (23:07)
[2025-06-09] MEDS: fentaNYL Drip 2500mCg/250mlNS 250 ML IV SCH (23:10)
[2025-06-09] MEDS: MIDAZOLAM DRIP 50 mg/50mL 50 ML IV SCH (23:12)
--- NOTE | 2025-06-09 23:14 | DVHNC2 ---
Intubation Indication: Airway Protection Prep: Preoxygenation Pretreated with: Sedation Medicated with: Other (Rocuronium) Intubation Approach: Orotracheal Intubation size: cm (7) Informed consent obtained: Yes Risks/benefits/alt described: Yes Notes Intubation was performed with GlideScope, procedure supervised by Dr. Weller Date of Service: Jun 09, 2025 Billing Provider: DONTA WELLER MD Common Visit Codes: PROCEDURE ONLY SHERYL GARCIA RESIDENT Jun 09, 2025 23:14
--- NOTE | 2025-06-09 23:14 | DVHPN2 ---
Subjective DOS: 06/09/2025 Patient seen and examined at bedside. Sedated, intubated on mechanical ventilator. Overnight events reviewed. Reviewed: Care Plan, H&P, Labs, Medications, Previous Orders Changes from previous H/P or p: Changes General: Per HPI Objective Vitals Vital Signs Date Time Temp Pulse Resp B/P (MAP) Pulse Ox O2 Delivery O2 Flow Rate FiO2 06/09/25 23:12 102/54 06/09/25 22:15 101 19 82 06/09/25 22:00 Bi-Pap+ 100 100 06/09/25 20:00 98.0 98.0 06/09/25 18:00 15 Intake/Output Intake and Output 06/09/25 07:00 Intake Total 780 ml Output Total 200 ml Balance 580 ml Intake Oral 60 ml IV Total 620 ml Tube Feeding 100 ml Stool Total 200 ml General Appearance: Other (Intubated, on vent.) HEENT: Atraumatic, PERRLA Lungs: Clear to auscultation, Other (On vent; transmitted breath sounds bilaterally. Decreased air entry bilaterally. No wheezing or rhonchi. Bibasilar crackles.) Cardiovascular: Normal S1, Normal S2, Other (Atrial fibrillation) Abdomen: Normal bowel sounds, Soft, No tenderness, No hepatospenomegaly Genitourinary: No Apparent Abnormalities (Leung catheter) Musculoskeletal: Other Extremities: Normal pulses, Other (Left BKA stump intact, trace edema ) Neuro: Other (Sedated.) Skin: Wounds (See nurse notes and pictures) Medications Current Medications Medications Dose Ordered Sig/Bandar Route Start Time Stop Time Status Last Admin Dose Admin Acetaminophen 650 mg Q6HP PRN PO 05/04/25 15:00 06/04/25 05:45 650 MG Sodium Chloride 10 ml QSHIFT@10,22 IV 05/19/25 22:00 06/09/25 21:28 10 ML Norepinephrine Bitartrate 32 mg/ Sodium Chloride 250 ml @ 0.938 mls/ hr Q24H IV 05/21/25 01:00 06/05/25 21:11 0.938 MLS/HR Pantoprazole Sodium 40 mg DAILY IV 05/21/25 10:00 06/09/25 13:15 40 MG Artificial Tears 1 drop Q6HP PRN EACHEYE 05/21/25 05:00 06/03/25 21:42 1 DROP Diagnostic Test (Pha) 1 strip Q6HR 05/23/25 00:00 06/09/25 18:18 1 STRIP Insulin Human Regular FOLLOW SLIDING SCALE Q6HR SC 05/23/25 00:00 06/09/25 18:24 8 UNITS Dextrose 50 ml UD IV 05/22/25 22:00 05/24/25 11:36 50 ML Albumin Human 100 ml @ 100 mls/hr PRN PRN IV 05/24/25 06:45 06/03/25 06:10 100 MLS/HR Enteral Nutritional Formula 1,000 ml 50ML/HR GT 05/24/25 17:30 06/09/25 21:30 1,000 ML Folic Acid 1 mg DAILY PO 05/25/25 10:00 06/09/25 11:17 1 MG Multivitamins 1 tab DAILY PO 05/25/25 10:00 06/09/25 11:17 1 TAB Cyanocobalamin 1,000 mcg DAILY PO 05/25/25 10:00 06/09/25 11:18 1,000 MCG Pyridoxine HCl 50 mg DAILY PO 05/25/25 10:00 06/09/25 11:18 50 MG Ondansetron HCl 4 mg Q4HPRN PRN IV 05/25/25 18:00 Trimethoprim/ Sulfamethoxazole 0 ml @ 0 mls/hr PER PHARMACY IV 05/28/25 09:45 Amiodarone HCl 200 mg Q12HR GT 05/29/25 10:00 06/09/25 21:27 200 MG Clopidogrel Bisulfate 75 mg DAILY NG 06/02/25 18:30 Cancel Clopidogrel Bisulfate 75 mg DAILY NG 06/03/25 10:00 06/09/25 11:17 75 MG Albuterol 1.25 mg Q8HP PRN NEB 06/03/25 14:00 06/09/25 14:43 1.25 MG Acetylcysteine 200 mg Q8HR NEB 06/03/25 14:00 06/09/25 14:43 200 MG Melatonin 5 mg HS PO 06/04/25 22:00 06/09/25 21:27 5 MG Atorvastatin Calcium 40 mg HS PO 06/07/25 22:00 06/09/25 21:27 40 MG Albumin Human 100 ml @ 100 mls/hr ONCE PRN IV 06/09/25 08:45 102/25 11:15 100 MLS/HR Trimethoprim/ Sulfamethoxazole 10 ml/Dextrose 260 ml @ 173.333 mls/hr Q12H IV 06/10/25 01:00 Epoetin Norm-epbx 10,000 unit MWF@2100 SC 06/10/25 21:00 Midazolam HCl 50 ml @ 1 mls/hr Q24H IV 06/09/25 23:00 06/09/25 23:12 1 MLS/HR Fentanyl Citrate 250 ml @ 2.5 mls/hr Q24H IV 06/09/25 23:00 06/09/25 23:10 2.5 MLS/HR Laboratory Results Laboratory Tests 06/09/25 05:38 Chemistry Test 06/09/25 05:38 Calcium Level 9.8 mg/dL (8.7-10.4) Urinalysis Test 05/16/25 15:18 05/20/25 01:02 Urine Hyaline Casts Few /lpf (0 - 2) Urine Mucus Few (None Seen) Urine Yeast (Budding) Many /hpf (None Seen) Urine Osmolality 359 mOsm/kg Urine Creatinine 122.44 mg/dL (30.0-125.0) Urine Protein/Creatinine Ratio 1.06 Urine Sodium 17 mmol/L (40-220) L Urine Total Protein 130.0 mg/dL (1-14) H Urine Color Dark yellow (Yellow) Urine Clarity Ex.turbid (Clear) Urine pH 5.5 (5.0-9.0) Urine Specific [place] 1.013 (1.001-1.035) Urine Protein 1+ (Negative) H Urine Ketones Negative (Negative) Urine Blood 1+ /uL (Negative) H Urine Nitrite Negative (Negative) Urine Bilirubin Negative (Negative) Urine Urobilinogen Normal mg/dL (Negative) Urine Leukocyte Esterase 3+ /uL (Negative) Urine RBC 62 /hpf (0 - 3) Urine WBC Clumps Present /hpf (None Seen) Urine Microscopic WBC 2744 /HPF (0-3) H Urine Squamous Epithelial Cells None seen /hpf (<5) Urine Bacteria None seen /hpf (None Seen) Urine Glucose Normal mg/dL (Normal) Blood Gas Results Test 06/09/25 22:15 Arterial Blood pH 7.393 (7.350-7.450) FiO2 % 100.0 Microbiology Microbiology Date/Time Source Procedure Growth Status 05/27/25 15:55 Sputum Gram Stain - Final Complete 05/27/25 15:55 Respiratory Culture - Final Stenotrophomonas maltophilia Complete 05/20/25 18:09 Nose MRSA Screen - Final Complete 05/20/25 01:02 Urine - [place] Urine Culture - Final Yeast, not Dulce albicans Complete 05/19/25 08:14 Blood Blood Culture - Final NO GROWTH AFTER 5 DAYS OF INCUBATION. Complete Assessment/Plan Assessment/Plan Impression: Acute hypoxic respiratory failure On mechanical ventilator Severe sepsis Atrial fibrillation with RVR, rate controlled now Pancytopenia Left lower extremity gangrene with severe peripheral arterial disease Status post left [id number] amputation Acute kidney injury secondary to vasomotor nephropathy On hemodialysis Pneumonia secondary to stenotrophomonas maltophilia, Pseudomonas aeruginosa Complicated cystitis with the use Metabolic encephalopathy Coronary artery disease Thrombocytopenia Events: Patient is currently intubated, placed on mechanical ventilator Vent settings: AC mode with RR 16, VT 500, PEEP 10, FiO2 100%. Taper FiO2 as tolerated Vital signs stable. Sedated on Fentanyl and Versed CXR reviewed; shows near complete left hemithoracic opacification, likely secondary to pleural effusion. Moderate right pleural effusion. Cardiomegaly. Plan for right and left thoracenteses. Obtain limited chest ultrasound to assess if pleural fluid amenable for thoracentesis Continue antibiotics, antifungals Continue bronchodilators Chest physiotherapy Patient is high risk for aspiration HOB elevation Aspiration precautions Hemodialysis per Nephrology - HD today S/p tunneled catheter placement Monitor renal function Monitor electrolytes. Supplement as necessary. Monitor ins and outs Nephrology recs appreciated. Note, pt passed prior swallow eval but had some aspiration Continue tube feeds via NGT for nutritional support Monitor hemoglobin Monitor platelets. Wound care. PT evaluation Labs and imaging reviewed. Rest of plan as noted below. Plan: S/p intubation on mechanical ventilator. Vent settings: AC mode with RR 16, VT 500, PEEP 10, FiO2 100%. Titrate FIO2 to keep O2 saturation above 90%. VAP bundle. Daily ABG and CXR while intubated Sedate for ventilator synchrony Pressors as necessary for hemodynamic support. Titrate to keep MAP above 65 mmHg/SBP above 90 mmHg. Continue antibiotics and antifungals. F/u cultures. Repeat sputum culture notable for Gram-negative rods. Continue bronchodilators Amiodarone PO. Monitor platelets. Monitor hgb. Monitor renal function due to Acute kidney injury. Monitor electrolytes. Supplement as necessary. Monitor ins and outs HD per Nephrology Nutritional support. Accucheks, ISS. GI/DVT prophylaxis. Prognosis: Poor given multiple comorbidities. Condition: Critical Rest of plan per hospitalist and other consultants. A total of 35 minutes of critical care time was spent reviewing the patient record, examining the patient, making a diagnostic and therapeutic plan, discussing this plan with the medical personnel, following up on diagnostic studies and following the patient for clinical stability excluding any and all procedures. At least 50% of this time was spent in direct, [id number] contact. Thank you for allowing me to participate in this patient's care. Further recommendations will depend on patient's clinical course. Please do not hesitate to contact me if you have any questions or concerns. This medical document was created using an electronic medical record system with [employer] system. Although this document has been carefully reviewed, there may still be some phonetic and typographical errors. These areas are purely typographical due to imperfections of the software programs, and do not reflect any compromise in the patient's medical care. Plan discussed with: Patient, Other (RN) My Orders Orders - SHALINI BENITES MD Procedure Category Date Status Time Chest Portable XY 06/09/25 Resulted 07:56 Chest Portable XY 06/10/25 Logged 04:00 Obtain Consent For: ORDERS 06/09/25 Transmitted 09:30 Obtain Consent For SALVADOR 06/09/25 In Process Anesthesia 16:43 Visit Coding Pulmonary Billing Provider: SHALINI BENITES MD Date of Service if different f: Jun 09, 2025 Common Visit Codes: [id number] INP/OBS CARE(HIGH), [id number] CARE 30-74 MIN SHALINI BENITES MD Jun 09, 2025 23:14
--- NOTE | 2025-06-09 23:31 | DVH ---
CHEST RADIOGRAPH Indication: new intubation Technique: Single frontal view of the chest was obtained COMPARISON: XY CHEST PORTABLE on DOS: 06/09/25, XY CHEST XRAY 1 VIEW on DOS: 06/08/25, XY CHEST PORTABL E on DOS: 06/07/25, XY CHEST PORTABLE on DOS: 06/05/25, XY CHEST PORTABLE on DOS: 06/05/25 FINDINGS: Lines and Tubes: Endotracheal tube tip projects approximately 3.2 cm above the level of the livier. Enteric catheter courses below the level of the diaphragm, terminating beyond the inferior margin of the image. Left peripherally inserted central catheter tip projects over the proximal superior vena c magdalene. Right PermCath tip projects over the distal superior vena cava. Lungs: Near complete left hemithoracic opacification, likely secondary to pleural effusion. Moderate right pleural effusion. No pneumothorax. Cardiomediastinal contours: Cardiomegaly. Bones: Unremarkable IMPRESSION: 1. Endotracheal tube tip projects approximately 3.2 cm above the level of the livier. Remaining lines and tubes as above. 2. Near complete left hemithoracic opacification, likely secondary to pleural effusion. 3. Moderate right pleural effusion. 4. Cardiomegaly.
[2025-06-10] VITALS (111 sets, daily range): BP systolic 62–129; BP diastolic 29–69; PULSE 67–99; RESP 11–26; TEMP 97.5–98.4; O2SAT 83–100
[2025-06-10] MEDS: SULFAMETH-TRIMETH 80/16MG-ML 10 ML in D5W 5% 250 ML IV SCH (00:29)
[2025-06-10 00:53] LABS: Base Excess 4.5 mmol/L (-2.0-3.0)
--- NOTE | 2025-06-10 01:51 | DVH ---
Exam: US CHEST ULTRASOUND Clinical History: SOB Comparison: XY CHEST PORTABLE on DOS: 06/09/25, XY CHEST PORTABLE on DOS: 06/09/25, XY CHEST XRAY 1 VIE W on DOS: 06/08/25, XY CHEST PORTABLE on DOS: 06/07/25, XY CHEST PORTABLE on DOS: 06/05/25 Technique: Targeted sonographic evaluation of the soft tissues of the thorax was obtained utilizing grayscale an d color Doppler imaging. Findings/Impression: Right pleural effusion. There is no evidence for solid or cystic mass in the site. No vascular abn ormalities identified at this site. Left hemithorax not well visualized.
--- NOTE | 2025-06-10 05:37 | DVHNC2 ---
SHALINI BENITES MD Jun 10, 2025 05:37
--- NOTE | 2025-06-10 05:37 | DVHNC2 ---
SHALINI BENITES MD Jun 10, 2025 05:37
[2025-06-10] MEDS: SODIUM CHL 0.9% 1000 ML BAG XX ONE (07:00)
[2025-06-10 07:01] LABS: Hematocrit 27.0 % (41.0-53.0); Hemoglobin 9.3 g/dL (13.5-17.5); Mean Corpuscular Hemoglobin 34.3 pg (28.0-32.0); Mean Corpuscular Volume 99.6 fL (80.0-100.0); Nucleated Red Blood Cells % 1.8 %
[2025-06-10 07:13] LABS: Anion Gap 14 (5-15); Carbon Dioxide 31 mmol/L (20-31); Sodium 141 mmol/L (136-145)
[2025-06-10 07:14] LABS: Calcium 9.8 mg/dL (8.7-10.4)
[2025-06-10 07:18] LABS: Chloride 96 mmol/L (98-107); Potassium 3.4 mmol/L (3.5-5.1)
[2025-06-10 07:19] LABS: BUN/Creatinine Ratio 11.7 (10.0-20.0); INR 1.66 (0.9-1.15); Magnesium 2.2 mg/dL (1.6-2.6); Partial Thromboplastin Time 33.9 SEC (24.5-34.5); Prothrombin Time 16.7 sec (9.3-11.8)
[2025-06-10 07:20] LABS: Blood Urea Nitrogen 29 mg/dL (9-23); Glucose 137 mg/dL (74-106)
[2025-06-10] MEDS: POTASSIUM CHL 20MEQ/100ML 100 ML IV SCH (08:54)
[2025-06-10 09:00] LABS: Iron 35.0 ug/dL (65-175); Total Iron Binding Capacity 167.0 ug/dL (250-425)
--- NOTE | 2025-06-10 09:28 | DVH ---
INDICATION: RE-CHECK BILAT PLEURAL EFFUSIONS TECHNIQUE: Frontal view of the chest. COMPARISON: XY CHEST PORTABLE on DOS: 06/09/25, XY CHEST PORTABLE on DOS: 06/09/25, XY CHEST XRAY 1 VIE W on DOS: 06/08/25, XY CHEST PORTABLE on DOS: 06/07/25, XY CHEST PORTABLE on DOS: 06/05/25 FINDINGS: Lines and tubes are unchanged.. The heart and mediastinal contours are grossly unremarkable. Decreas ed left pleural effusion. The lungs are clear. The bony structures of the chest are intact without fracture. IMPRESSION: 1. Significantly decreased left pleural effusion. Stable pulmonary edema
[2025-06-10 13:35] LABS: Alanine Aminotransferase 39 U/L (7-40); Albumin 3.9 g/dL (3.2-4.8); Anion Gap 11 (5-15); BUN/Creatinine Ratio 10.1 (10.0-20.0); Calcium 9.3 mg/dL (8.7-10.4); Carbon Dioxide 30 mmol/L (20-31); Potassium 4.5 mmol/L (3.5-5.1); Sodium 139 mmol/L (136-145); Total Protein 6.1 g/dL (5.7-8.2)
[2025-06-10 13:36] LABS: Alkaline Phosphatase 174 U/L (46-116); Bilirubin, Total 1.5 mg/dL (0.2-1.0); Blood Urea Nitrogen 27 mg/dL (9-23); Chloride 98 mmol/L (98-107); Glucose 170 mg/dL (74-106)
--- NOTE | 2025-06-10 13:36 | DVHPN2 ---
Subjective Patient in ICU and intubated now Status post thoracentesis Patient on tube feeding with Glucerna Reviewed: Care Plan, H&P, Labs, Medications, Previous Orders Changes from previous H/P or p: No Changes General: Per HPI Objective Vitals Vital Signs Date Time Temp Pulse Resp B/P (MAP) Pulse Ox O2 Delivery O2 Flow Rate FiO2 06/10/25 13:15 76 11 105/58 (74) 100 06/10/25 12:12 60 06/10/25 11:50 Mechanical Ventilator+ 06/10/25 11:45 97.5 97.5 06/09/25 18:00 15 Intake/Output Intake and Output 06/10/25 06:59 Intake Total 862.930 ml Output Total 325 ml Balance 537.930 ml Intake Oral 150 ml IV Total 312.930 ml Tube Feeding 400 ml Output Urine Total 0 ml Stool Total 325 ml Exam Patient is sedated and intubated Lungs clear to auscultation Cardiovascular RRR Abdomen positive bowel sounds, soft General Appearance: Other (Intubated, on vent.) HEENT: Atraumatic, PERRLA Lungs: Clear to auscultation, Other (On vent; transmitted breath sounds bilaterally. Decreased air entry bilaterally. No wheezing or rhonchi. Bibasilar crackles.) Cardiovascular: Normal S1, Normal S2, Other (Atrial fibrillation) Abdomen: Normal bowel sounds, Soft, No tenderness, No hepatospenomegaly Genitourinary: No Apparent Abnormalities (Leung catheter) Musculoskeletal: Other Extremities: Normal pulses, Other (Left BKA stump intact, trace edema ) Neuro: Other (Sedated.) Skin: Wounds (See nurse notes and pictures) Medications Current Medications Medications Dose Ordered Sig/Bandar Route Start Time Stop Time Status Last Admin Dose Admin Acetaminophen 650 mg Q6HP PRN PO 05/04/25 15:00 06/04/25 05:45 650 MG Sodium Chloride 10 ml QSHIFT@10,22 IV 05/19/25 22:00 06/10/25 07:42 10 ML Norepinephrine Bitartrate 32 mg/ Sodium Chloride 250 ml @ 0.938 mls/ hr Q24H IV 05/21/25 01:00 06/05/25 21:11 0.938 MLS/HR Pantoprazole Sodium 40 mg DAILY IV 05/21/25 10:00 06/10/25 07:41 40 MG Artificial Tears 1 drop Q6HP PRN EACHEYE 05/21/25 05:00 06/03/25 21:42 1 DROP Diagnostic Test (Pha) 1 strip Q6HR 05/23/25 00:00 06/10/25 07:45 1 STRIP Insulin Human Regular FOLLOW SLIDING SCALE Q6HR SC 05/23/25 00:00 06/10/25 10:51 4 UNITS Dextrose 50 ml UD IV 05/22/25 22:00 05/24/25 11:36 50 ML Albumin Human 100 ml @ 100 mls/hr PRN PRN IV 05/24/25 06:45 06/03/25 06:10 100 MLS/HR Enteral Nutritional Formula 1,000 ml 50ML/HR GT 05/24/25 17:30 06/09/25 21:30 1,000 ML Folic Acid 1 mg DAILY PO 05/25/25 10:00 06/10/25 07:42 1 MG Multivitamins 1 tab DAILY PO 05/25/25 10:00 06/10/25 07:42 1 TAB Cyanocobalamin 1,000 mcg DAILY PO 05/25/25 10:00 06/10/25 07:42 1,000 MCG Pyridoxine HCl 50 mg DAILY PO 05/25/25 10:00 06/09/25 11:18 50 MG Ondansetron HCl 4 mg Q4HPRN PRN IV 05/25/25 18:00 Trimethoprim/ Sulfamethoxazole 0 ml @ 0 mls/hr PER PHARMACY IV 05/28/25 09:45 Amiodarone HCl 200 mg Q12HR GT 05/29/25 10:00 06/10/25 07:45 200 MG Clopidogrel Bisulfate 75 mg DAILY NG 06/02/25 18:30 Cancel Clopidogrel Bisulfate 75 mg DAILY NG 06/03/25 10:00 06/10/25 09:53 75 MG Albuterol 1.25 mg Q8HP PRN NEB 06/03/25 14:00 06/10/25 06:23 1.25 MG Acetylcysteine 200 mg Q8HR NEB 06/03/25 14:00 06/09/25 06:22 200 MG Melatonin 5 mg HS PO 06/04/25 22:00 06/09/25 21:27 5 MG Atorvastatin Calcium 40 mg HS PO 06/07/25 22:00 06/09/25 21:27 40 MG Albumin Human 100 ml @ 100 mls/hr ONCE PRN IV 06/09/25 08:45 06/09/25 11:15 100 MLS/HR Trimethoprim/ Sulfamethoxazole 10 ml/Dextrose 260 ml @ 173.333 mls/hr Q12H IV 06/10/25 01:00 06/10/25 00:29 173.333 MLS/HR Epoetin Norm-epbx 10,000 unit MWF@2100 SC 06/10/25 21:00 Midazolam HCl 50 ml @ 1 mls/hr Q24H IV 06/09/25 23:00 06/09/25 23:12 1 MLS/HR Fentanyl Citrate 250 ml @ 2.5 mls/hr Q24H IV 06/09/25 23:00 06/09/25 23:10 2.5 MLS/HR Laboratory Results Laboratory Tests 06/10/25 06:40 Chemistry Test 06/10/25 06:40 06/10/25 13:07 Calcium Level 9.8 mg/dL (8.7-10.4) Pending Magnesium Level 2.2 mg/dL (1.6-2.6) Albumin Pending Total Protein Pending Coagulation Test 06/10/25 06:40 Prothrombin Time 16.7 sec (9.3-11.8) H Prothrombin Time INR 1.66 (0.9-1.15) H Activated Partial Thromboplast Time 33.9 SEC (24.5-34.5) LFT Test 06/10/25 13:07 Alanine Aminotransferase (ALT) Pending Alkaline Phosphatase Pending Aspartate Amino Transferase (AST) Pending Total Bilirubin Pending Urinalysis Test 05/16/25 15:18 05/20/25 01:02 Urine Hyaline Casts Few /lpf (0 - 2) Urine Mucus Few (None Seen) Urine Yeast (Budding) Many /hpf (None Seen) Urine Osmolality 359 mOsm/kg Urine Creatinine 122.44 mg/dL (30.0-125.0) Urine Protein/Creatinine Ratio 1.06 Urine Sodium 17 mmol/L (40-220) L Urine Total Protein 130.0 mg/dL (1-14) H Urine Color Dark yellow (Yellow) Urine Clarity Ex.turbid (Clear) Urine pH 5.5 (5.0-9.0) Urine Specific [place] 1.013 (1.001-1.035) Urine Protein 1+ (Negative) H Urine Ketones Negative (Negative) Urine Blood 1+ /uL (Negative) H Urine Nitrite Negative (Negative) Urine Bilirubin Negative (Negative) Urine Urobilinogen Normal mg/dL (Negative) Urine Leukocyte Esterase 3+ /uL (Negative) Urine RBC 62 /hpf (0 - 3) Urine WBC Clumps Present /hpf (None Seen) Urine Microscopic WBC 2744 /HPF (0-3) H Urine Squamous Epithelial Cells None seen /hpf (<5) Urine Bacteria None seen /hpf (None Seen) Urine Glucose Normal mg/dL (Normal) Blood Gas Results Test 06/09/25 22:15 06/10/25 00:44 Arterial Blood pH 7.393 (7.350-7.450) 7.537 (7.350-7.450) FiO2 % 100.0 100.0 Microbiology Microbiology Date/Time Source Procedure Growth Status 05/27/25 15:55 Sputum Gram Stain - Final Complete 05/27/25 15:55 Respiratory Culture - Final Stenotrophomonas maltophilia Complete 05/20/25 18:09 Nose MRSA Screen - Final Complete 05/20/25 01:02 Urine - [place] Urine Culture - Final Yeast, not Dulce albicans Complete 05/19/25 08:14 Blood Blood Culture - Final NO GROWTH AFTER 5 DAYS OF INCUBATION. Complete Assessment/Plan Assessment/Plan Severe sepsis/pneumonia Acute hypoxic respiratory failure AD superimposed on CKD Atrial fibrillation Thrombocytopenia and anemia Metabolic encephalopathy improving Failed swallow eval Plan Discussed with Dr. Valdez Continue NG-tube feeding Repeat GI services when patient is stable for possible EGD with PEG placement Plan discussed with: Other (RN) Date of Service: Jun 10, 2025 Billing Provider: JUDY WILLIS Common Visit Codes: [id number] INP/OBS CARE(HIGH) JUDY WILLIS Jun 10, 2025 13:36
--- NOTE | 2025-06-10 13:46 | DVHPN2 ---
Progress Note Date Seen: Jun 10, 2025 Has the PT tested + for MRSA If YES, has PT been informed?: No Medical Necessity Reason Pt with a Central, PICC or Fol: Yes The following are medically ne: PICC Line, Leung Catheter Subjective Review of Systems: Deferred Objective vital signs Vital Sign Date Time Temp Pulse Resp B/P (MAP) Pulse Ox O2 Delivery O2 Flow Rate FiO2 06/10/25 13:15 76 11 105/58 (74) 100 06/10/25 12:12 60 06/10/25 11:50 Mechanical Ventilator+ 06/10/25 11:45 97.5 97.5 06/09/25 18:00 15 Total Intake and Output 06/09/25 06/09/25 06/10/25 15:00 23:00 07:00 Intake Total 261.865 ml 449.878 ml Output Total 125 ml 100 ml Balance 136.865 ml 349.878 ml medications Current Medications Medications Dose Ordered Sig/Bandar Route Start Time Stop Time Status Last Admin Dose Admin Acetaminophen 650 mg Q6HP PRN PO 05/04/25 15:00 06/04/25 05:45 650 MG Sodium Chloride 10 ml QSHIFT@10,22 IV 05/19/25 22:00 06/10/25 07:42 10 ML Norepinephrine Bitartrate 32 mg/ Sodium Chloride 250 ml @ 0.938 mls/ hr Q24H IV 05/21/25 01:00 06/05/25 21:11 0.938 MLS/HR Pantoprazole Sodium 40 mg DAILY IV 05/21/25 10:00 06/10/25 07:41 40 MG Artificial Tears 1 drop Q6HP PRN EACHEYE 05/21/25 05:00 06/03/25 21:42 1 DROP Diagnostic Test (Pha) 1 strip Q6HR 05/23/25 00:00 06/10/25 07:45 1 STRIP Insulin Human Regular FOLLOW SLIDING SCALE Q6HR SC 05/23/25 00:00 06/10/25 10:51 4 UNITS Dextrose 50 ml UD IV 05/22/25 22:00 05/24/25 11:36 50 ML Albumin Human 100 ml @ 100 mls/hr PRN PRN IV 05/24/25 06:45 06/03/25 06:10 100 MLS/HR Enteral Nutritional Formula 1,000 ml 50ML/HR GT 05/24/25 17:30 06/09/25 21:30 1,000 ML Folic Acid 1 mg DAILY PO 05/25/25 10:00 06/10/25 07:42 1 MG Multivitamins 1 tab DAILY PO 05/25/25 10:00 06/10/25 07:42 1 TAB Cyanocobalamin 1,000 mcg DAILY PO 05/25/25 10:00 06/10/25 07:42 1,000 MCG Pyridoxine HCl 50 mg DAILY PO 05/25/25 10:00 06/09/25 11:18 50 MG Ondansetron HCl 4 mg Q4HPRN PRN IV 05/25/25 18:00 Trimethoprim/ Sulfamethoxazole 0 ml @ 0 mls/hr PER PHARMACY IV 05/28/25 09:45 Amiodarone HCl 200 mg Q12HR GT 05/29/25 10:00 06/10/25 07:45 200 MG Clopidogrel Bisulfate 75 mg DAILY NG 06/02/25 18:30 Cancel Clopidogrel Bisulfate 75 mg DAILY NG 06/03/25 10:00 06/10/25 09:53 75 MG Albuterol 1.25 mg Q8HP PRN NEB 06/03/25 14:00 06/10/25 06:23 1.25 MG Acetylcysteine 200 mg Q8HR NEB 06/03/25 14:00 06/09/25 06:22 200 MG Melatonin 5 mg HS PO 06/04/25 22:00 06/09/25 21:27 5 MG Atorvastatin Calcium 40 mg HS PO 06/07/25 22:00 06/09/25 21:27 40 MG Albumin Human 100 ml @ 100 mls/hr ONCE PRN IV 06/09/25 08:45 06/09/25 11:15 100 MLS/HR Trimethoprim/ Sulfamethoxazole 10 ml/Dextrose 260 ml @ 173.333 mls/hr Q12H IV 06/10/25 01:00 06/10/25 00:29 173.333 MLS/HR Epoetin Norm-epbx 10,000 unit MWF@2100 SC 06/10/25 21:00 Midazolam HCl 50 ml @ 1 mls/hr Q24H IV 06/09/25 23:00 06/09/25 23:12 1 MLS/HR Fentanyl Citrate 250 ml @ 2.5 mls/hr Q24H IV 06/09/25 23:00 06/09/25 23:10 2.5 MLS/HR Examination: GENERAL:Abnormal, LUNGS:Abnormal, SKIN:Abnormal, NEURO:Abnormal laboratory and microbiology Laboratory Tests 06/10/25 13:07 06/10/25 06:40 Test 06/10/25 13:07 Range/Units Serum Glucose 170 H 74-106 mg/dL Microbiology Date/Time Source Procedure Growth Status 05/27/25 15:55 Sputum Gram Stain - Final Complete 05/27/25 15:55 Respiratory Culture - Final Stenotrophomonas maltophilia Complete 05/20/25 18:09 Nose MRSA Screen - Final Complete 05/20/25 01:02 Urine - [place] Urine Culture - Final Yeast, not Dulce albicans Complete 05/19/25 08:14 Blood Blood Culture - Final NO GROWTH AFTER 5 DAYS OF INCUBATION. Complete Problem List/Assessment/Plan Problem List/Assessment/Plan Acute kidney injury superimposed Chronic Kidney Disease stage IV secondary hemodynamic mediated, FeNa < 1% Dialysis dependant TC placement and fci dialysis placement will require facility next HD on friday Chronic kidney disease stage IV followed by Dr. Ponce no evidence of recovery at this time Gangrene left foot, status post left below-knee amputation 05/20 Septic shock Cellulitis lower extremity Left lower extremity DVT Ventilator-dependent hypoxic respiratory failure -> extubated now reitnubated per primary team pending trach for probably chronic respiratory failure Diabetes mellitus type 2 Chronic diastolic Congestive heart failure/ NSTEMI History of testicular cancer thrombocytopenia/ anemia no heparin during HD TANI 3x week fci prognosis is poor, low expectation for meaningful recovery Plan discussed with: Other (nurse) My Orders My Orders Orders - ALEJANDRO PONCE MD Procedure Category Date Status Time Hemodialysis Orders ORDERS 06/10/25 Transmitted 07:00 Dialysis Nursing SALVADOR 06/10/25 In Process Message 07:00 Document Fluid Input SALVADOR 06/10/25 In Process And Outpu 07:00 Epoetin Norm-Epbx PHA 06/10/25 In Process (Retacrit) 21:00 Dietary Evaluation Review Comments: 1) Advance to CCHO 75gm + cardiac diet 2) Armen 1 pk BID, MVI w/ minerals 1 tab daily, VitC 500mg BID, Zinc sulfate 220mg BID x 10 days 3) Monitor NPO status, lab values, weight trend, and I/O Expected Outcomes/Goals: To meet >75% estimated needs Wound to improve Fu 2-3 days Critical Care Time (mins): 33 ALEJANDRO PONCE MD Jun 10, 2025 13:46
--- NOTE | 2025-06-10 14:03 | DVHPN2 ---
Progress Note - Dictate Date Seen: Jun 10, 2025 Has the PT tested + for MRSA If YES, has PT been informed?: No Medical Necessity Reason Pt with a Central, PICC or Fol: Yes The following are medically ne: PICC Line, Leung Catheter vital signs Vital Sign Date Time Temp Pulse Resp B/P (MAP) Pulse Ox O2 Delivery O2 Flow Rate FiO2 06/10/25 13:46 60 06/10/25 13:45 74 06/10/25 13:45 11 97/52 (67) 100 06/10/25 13:45 Mechanical Ventilator+ 06/10/25 11:45 97.5 97.5 06/09/25 18:00 15 Total Intake and Output 06/09/25 06/09/25 06/10/25 15:00 23:00 07:00 Intake Total 261.865 ml 449.878 ml Output Total 125 ml 100 ml Balance 136.865 ml 349.878 ml medications Current Medications Medications Dose Ordered Sig/Bandar Route Start Time Stop Time Status Last Admin Dose Admin Acetaminophen 650 mg Q6HP PRN PO 05/04/25 15:00 06/04/25 05:45 650 MG Sodium Chloride 10 ml QSHIFT@10,22 IV 05/19/25 22:00 06/10/25 07:42 10 ML Norepinephrine Bitartrate 32 mg/ Sodium Chloride 250 ml @ 0.938 mls/ hr Q24H IV 05/21/25 01:00 06/05/25 21:11 0.938 MLS/HR Pantoprazole Sodium 40 mg DAILY IV 05/21/25 10:00 06/10/25 07:41 40 MG Artificial Tears 1 drop Q6HP PRN EACHEYE 05/21/25 05:00 06/03/25 21:42 1 DROP Diagnostic Test (Pha) 1 strip Q6HR 05/23/25 00:00 06/10/25 07:45 1 STRIP Insulin Human Regular FOLLOW SLIDING SCALE Q6HR SC 05/23/25 00:00 06/10/25 10:51 4 UNITS Dextrose 50 ml UD IV 05/22/25 22:00 05/24/25 11:36 50 ML Albumin Human 100 ml @ 100 mls/hr PRN PRN IV 05/24/25 06:45 06/03/25 06:10 100 MLS/HR Enteral Nutritional Formula 1,000 ml 50ML/HR GT 05/24/25 17:30 06/09/25 21:30 1,000 ML Folic Acid 1 mg DAILY PO 05/25/25 10:00 06/10/25 07:42 1 MG Multivitamins 1 tab DAILY PO 05/25/25 10:00 06/10/25 07:42 1 TAB Cyanocobalamin 1,000 mcg DAILY PO 05/25/25 10:00 06/10/25 07:42 1,000 MCG Pyridoxine HCl 50 mg DAILY PO 05/25/25 10:00 06/09/25 11:18 50 MG Ondansetron HCl 4 mg Q4HPRN PRN IV 05/25/25 18:00 Trimethoprim/ Sulfamethoxazole 0 ml @ 0 mls/hr PER PHARMACY IV 05/28/25 09:45 Amiodarone HCl 200 mg Q12HR GT 05/29/25 10:00 06/10/25 07:45 200 MG Clopidogrel Bisulfate 75 mg DAILY NG 06/02/25 18:30 Cancel Clopidogrel Bisulfate 75 mg DAILY NG 06/03/25 10:00 06/10/25 09:53 75 MG Albuterol 1.25 mg Q8HP PRN NEB 06/03/25 14:00 06/10/25 06:23 1.25 MG Acetylcysteine 200 mg Q8HR NEB 06/03/25 14:00 06/09/25 06:22 200 MG Melatonin 5 mg HS PO 06/04/25 22:00 06/09/25 21:27 5 MG Atorvastatin Calcium 40 mg HS PO 06/07/25 22:00 06/09/25 21:27 40 MG Albumin Human 100 ml @ 100 mls/hr ONCE PRN IV 06/09/25 08:45 06/09/25 11:15 100 MLS/HR Trimethoprim/ Sulfamethoxazole 10 ml/Dextrose 260 ml @ 173.333 mls/hr Q12H IV 06/10/25 01:00 06/10/25 13:00 173.333 MLS/HR Epoetin Norm-epbx 10,000 unit MWF@2100 SC 06/10/25 21:00 Midazolam HCl 50 ml @ 1 mls/hr Q24H IV 06/09/25 23:00 06/09/25 23:12 1 MLS/HR Fentanyl Citrate 250 ml @ 2.5 mls/hr Q24H IV 06/09/25 23:00 06/09/25 23:10 2.5 MLS/HR laboratory and microbiology Laboratory Tests 06/10/25 13:07 06/10/25 06:40 Test 06/10/25 13:07 Range/Units Serum Glucose 170 H 74-106 mg/dL Assessment/Plan Impression Acute hypoxemic respiratory failure Atelectasis Fluid overload Pleural effusions Patient seen and examined in the ICU Events on mechanical ventilation re-intubated this morning for resp distress abg: significant rebound alkalosis peep 10 Fi02 100% vent changes made CXR reviewed Management plan Vent support Titrate to maintain sats 90% or above Sedation for vent synchrony Continue antibiotics F/u cultures consider bronchoscopy Bronchodilators diurese/HD Monitor renal function Monitor electrolytes Supplement as needed Pressors as needed for hemodynamic support To maintain a mean arterial pressure of 65 mmHg full code may need trache and peg Critical care time 35 minutes Dietary Evaluation Review Comments: 1) [facility] 2) Armen 1 pk BID, MVI w/ minerals 1 tab daily, VitC 500mg BID, Zinc sulfate 220mg BID x 10 days 3) Monitor NPO status, lab values, weight trend, and I/O Expected Outcomes/Goals: To meet >75% estimated needs Wound to improve Fu 2-3 days Plan discussed with: Other (rn) DELORY REDD MD Jun 10, 2025 14:02
--- NOTE | 2025-06-10 14:42 | DVHPNRES ---
Progress Note Date Seen: Jun 10, 2025 Resident Creating Document: FABRICIO CALVIN RESIDENT Has the PT tested + for MRSA If YES, has PT been informed?: No Medical Necessity Reason Pt with a Central, PICC or Fol: Yes The following are medically ne: PICC Line, Leung Catheter Subjective Review of Systems Overnight the patient developed severe hypoxemia, desaturating to the 6065% range, requiring emergent re-intubation. He is now on mechanical ventilation with FiO? adjusted to maintain SpO? >94%. Currently on vasopressor support (norepinephrine) and sedation/analgesia with fentanyl and midazolam infusion. The patient underwent thoracentesis with 1.5 L drained from each lung (bilateral pleural effusions), improving oxygenation but remains ventilator- dependent. A PEG tube with concurrent tracheostomy placement is planned due to repeated failed swallow evaluations, high aspiration risk, and long-term feeding/airway needs. Currently on NG tube with Glucerna feeds. Hemodynamics: BP 105/58 (stable on norepinephrine), HR 76, RR 12 (vent controlled).?Oxygenation: SpO? 100% on mechanical ventilation. Labs: * WBC: 8.8 (stable) * Hgb: 9.3 (stable, transfusion threshold not met) * Platelets: 80 K (low but improved from prior 25 K) * K: 3.4 (low, corrected today) * ABG: pH 7.53 (alkalemic), PCO? 32.8 (low), PO? 78.5 (low), HCO? 27.2, BE +4.7, O? sat 94.8% * CMP: Creatinine 3.0, BUN 30 (dialysis-dependent CKD) * Echo: pending today Procedures performed: * Bilateral thoracentesis with removal of 3 L total fluid * Re-intubation * Vasopressor initiation (norepinephrine) Plan today: Continue ventilatory support, maintain MAP >65 with norepinephrine, proceed with PEG + trach, optimize volume with HD/UF, monitor electrolytes and blood counts, and repeat echo. Patient has clearly expressed FULL aggressive measures, no hospice. Review of Systems (Limited Intubated Patient) * General: Intubated, sedated, cannot report symptoms. * Neuro: Sedated but moves extremities spontaneously when sedation lightened. * Cardiac: No chest pain, stable on pressors. * Respiratory: Intubated, FiO? dependent. * GI: On NG tube feeds, no abdominal pain. * : Anuric, dialysis dependent. * Skin: Edema present, no breakdown. Objective vital signs Vital Sign Date Time Temp Pulse Resp B/P (MAP) Pulse Ox O2 Delivery O2 Flow Rate FiO2 06/10/25 14:05 75 13 87/51 (63) 100 60 06/10/25 13:45 Mechanical Ventilator+ 06/10/25 11:45 97.5 97.5 06/09/25 18:00 15 Total Intake and Output 06/09/25 06/09/25 06/10/25 15:00 23:00 07:00 Intake Total 261.865 ml 449.878 ml Output Total 125 ml 100 ml Balance 136.865 ml 349.878 ml medications Current Medications Medications Dose Ordered Sig/Bandar Route Start Time Stop Time Status Last Admin Dose Admin Acetaminophen 650 mg Q6HP PRN PO 05/04/25 15:00 06/04/25 05:45 650 MG Sodium Chloride 10 ml QSHIFT@10,22 IV 05/19/25 22:00 06/10/25 07:42 10 ML Norepinephrine Bitartrate 32 mg/ Sodium Chloride 250 ml @ 0.938 mls/ hr Q24H IV 05/21/25 01:00 06/05/25 21:11 0.938 MLS/HR Pantoprazole Sodium 40 mg DAILY IV 05/21/25 10:00 06/10/25 07:41 40 MG Artificial Tears 1 drop Q6HP PRN EACHEYE 05/21/25 05:00 06/03/25 21:42 1 DROP Diagnostic Test (Pha) 1 strip Q6HR 05/23/25 00:00 06/10/25 07:45 1 STRIP Insulin Human Regular FOLLOW SLIDING SCALE Q6HR SC 05/23/25 00:00 06/10/25 10:51 4 UNITS Dextrose 50 ml UD IV 05/22/25 22:00 05/24/25 11:36 50 ML Albumin Human 100 ml @ 100 mls/hr PRN PRN IV 05/24/25 06:45 06/03/25 06:10 100 MLS/HR Enteral Nutritional Formula 1,000 ml 50ML/HR GT 05/24/25 17:30 06/09/25 21:30 1,000 ML Folic Acid 1 mg DAILY PO 05/25/25 10:00 06/10/25 07:42 1 MG Multivitamins 1 tab DAILY PO 05/25/25 10:00 06/10/25 07:42 1 TAB Cyanocobalamin 1,000 mcg DAILY PO 05/25/25 10:00 06/10/25 07:42 1,000 MCG Pyridoxine HCl 50 mg DAILY PO 05/25/25 10:00 06/09/25 11:18 50 MG Ondansetron HCl 4 mg Q4HPRN PRN IV 05/25/25 18:00 Trimethoprim/ Sulfamethoxazole 0 ml @ 0 mls/hr PER PHARMACY IV 05/28/25 09:45 Amiodarone HCl 200 mg Q12HR GT 05/29/25 10:00 06/10/25 07:45 200 MG Clopidogrel Bisulfate 75 mg DAILY NG 06/02/25 18:30 Cancel Clopidogrel Bisulfate 75 mg DAILY NG 06/03/25 10:00 06/10/25 09:53 75 MG Albuterol 1.25 mg Q8HP PRN NEB 06/03/25 14:00 06/10/25 14:04 1.25 MG Acetylcysteine 200 mg Q8HR NEB 06/03/25 14:00 06/10/25 14:05 200 MG Melatonin 5 mg HS PO 06/04/25 22:00 06/09/25 21:27 5 MG Atorvastatin Calcium 40 mg HS PO 06/07/25 22:00 06/09/25 21:27 40 MG Albumin Human 100 ml @ 100 mls/hr ONCE PRN IV 06/09/25 08:45 06/09/25 11:15 100 MLS/HR Trimethoprim/ Sulfamethoxazole 10 ml/Dextrose 260 ml @ 173.333 mls/hr Q12H IV 06/10/25 01:00 06/10/25 13:00 173.333 MLS/HR Epoetin Norm-epbx 10,000 unit MWF@2100 SC 06/10/25 21:00 Midazolam HCl 50 ml @ 1 mls/hr Q24H IV 06/09/25 23:00 06/09/25 23:12 1 MLS/HR Fentanyl Citrate 250 ml @ 2.5 mls/hr Q24H IV 06/09/25 23:00 06/09/25 23:10 2.5 MLS/HR Examination * General: Intubated, sedated on fentanyl/versed. * HEENT: ETT in place, NG tube present. * CV: HR 76, regular; no new murmurs. * Pulm: Bilateral diminished breath sounds, residual crackles at bases. Ventilator synchronized. * Abdomen: Soft, nondistended. PEG placement pending. * Extremities: BKA stump intact, 12+ edema. * Neuro: Sedated but withdraws to pain. * Skin/Lines: Tunneled HD catheter, , PIVs. laboratory and microbiology Laboratory Tests 06/10/25 13:07 06/10/25 06:40 Test 06/10/25 13:07 Range/Units Serum Glucose 170 H 74-106 mg/dL Microbiology Date/Time Source Procedure Growth Status 05/27/25 15:55 Sputum Gram Stain - Final Complete 05/27/25 15:55 Respiratory Culture - Final Stenotrophomonas maltophilia Complete 05/20/25 18:09 Nose MRSA Screen - Final Complete 05/20/25 01:02 Urine - [place]ung [place] Urine Culture - Final Yeast, not Dulce albicans Complete 05/19/25 08:14 Blood Blood Culture - Final NO GROWTH AFTER 5 DAYS OF INCUBATION. Complete Problem List/Assessment/Plan Problem List/Assessment/Plan Assessment Critical, complex multi-organ failure patient. 1. Severe Sepsis / Pneumonia due to MDR organisms (Stenotrophomonas, Pseudomonas, Enterobacter). On broad antimicrobials (Ciprofloxacin, TMP-SMX, Micafungin).POA 2. Acute hypoxic respiratory failure with post-extubation failureactive management due to Pneumonia 3. 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 Volume overload / Edema due to oligoanuria and CHF POA 5. Atrial fibrillation previously on amiodarone drip; now rate-controlled. 6. Acute on Chronic HFpEF NSTEMI stable, compensated. due to sepsis 7. PAD with Left foot gangrene s/p BKA stable surgical site. POA 8. Thrombocytopenia & Anemia likely multifactorial (sepsis, critical illness, marrow suppression, renal disease). Received platelets. 9. Metabolic encephalopathy improving; patient follows commands. 10. History of DVT prophylaxis complicated by thrombocytopenia. 11. Poor prognosis given multi-organ dysfunction, infections, dialysis- dependence. Plan Respiratory * Continue mechanical ventilation with lung-protective settings. * ABGs daily, adjust FiO?/PEEP for target SpO? >92%. * Chest X-ray post-thoracentesis and daily as indicated. * Tracheostomy planned for prolonged ventilation Cardiac * Maintain MAP >65 with norepinephrine titration. * Repeat Echocardiogram today to evaluate cardiac function and effusion status. * Fluid balance optimized with HD. Renal * HD with ultrafiltration for volume overload. * Strict I/O, daily weights. * Monitor electrolytes (especially K, Mg, Phos). Hematology * Hgb 9.3 transfuse if <7 or symptomatic. * Plt 80 K monitor, transfuse if <2030 K with bleeding or <50 K with procedure. * Hold anticoagulation; use SCDs only. GI / Nutrition * NPO until PEG placed. * GI consult for PEG placement (already placed). * NG tube with Glucerna feeds until PEG established. Infectious Disease * No acute infection; continue Bactrim regimen as appropriate. * Monitor WBC, fever, cultures. Endocrine * Continue insulin sliding scale; maintain BG 600154. Palliative Care * Documented patient/family wishes: Full Code, no hospice. * Readdress if clinical course worsens. Prophylaxis * DVT prophylaxis: SCDs only (Plt 80 K). * GI prophylaxis: Pantoprazole. * Line care bundle: Daily line necessity review. * Skin prophylaxis: Turn q2h, pressure ulcer prevention. Infectious Disease * Continue TMP-SMX micafungin per ID. * Avoid QT-prolonging agents. Endocrine * Insulin sliding scale; BG target 556012. Palliative Care * Discuss hospice option with patient/family. * Social work and palliative consult placed. * Rehabilitation / Functional Status * PT consult placed for functional assessment, early mobilization. * Case discussed in detail with the attending physician, including the clinical presentation, diagnostic workup, and comprehensive management plan. The duration of time spent in direct critical care management of this patient, including evaluation, review of clinical data, coordination of care, and decision-making, was 45 minutes. Plan discussed with: Other (RN) Dietary Evaluation Review Comments: 1) Advance to [facility] 75gm + cardiac diet 2) Armen 1 pk BID, MVI w/ minerals 1 tab daily, VitC 500mg BID, Zinc sulfate 220mg BID x 10 days 3) Monitor NPO status, lab values, weight trend, and I/O Expected Outcomes/Goals: To meet >75% estimated needs Wound to improve Fu 2-3 days Date of Service: Jun 10, 2025 Billing Provider: LAUREN MA MD Common Visit Codes: [id number] CARE 30-74 MIN FABRICIO CALVIN RESIDENT Jun 10, 2025 14:42 LAUREN MA MD Jun 10, 2025 20:02
[2025-06-10 16:50] LABS: Base Excess 1.4 mmol/L (-2.0-3.0)
[2025-06-11] VITALS (111 sets, daily range): BP systolic 80–119; BP diastolic 44–66; PULSE 82–104; RESP 11–16; TEMP 97.6–99.1; O2SAT 90–100
--- NOTE | 2025-06-11 00:21 | DVHSR ---
APPROVED REPORT EXAM: Two-dimensional and M-mode echocardiogram with Doppler and color Doppler. Blood Pressure: 115/54 mmHg INDICATION Evaluate Ef RISK FACTORS Height: 5'8", Weight: 155 DIMENSIONS LVDd5.4 (3.8-5.7cm)LA (2D)4.3 (1.9-4.0cm)Aortic Root3.4 (2.0-3.7cm) LVDs4.8 (2.5-4.0cm)LA (MM) (1.9-4.0cm)Aortic Cusp Exc1.1 (1.5-2.0cm) EF (%) 24.0 (55-70%)Rt. Atrium4.0 (1.9-4.0cm)Asc. Aorta2.7 cm IVSd0.8 (0.7-1.1cm)RV (D)4.1 (1.8-2.4cm) PWd0.4 (0.7-1.1cm) Mitral Valve MitralMitral Stenosis E wave0.91m/sMV Mean GR.mmHg A wave0.55m/sMV Peak GR.mmHg E/A ratio1.72D MVAcm2 DECEL [id number] 1/2 Timems Aortic Valve Aortic ValveAortic Stenosis V10.71m/Daron Mean GR.4mmHg V21.41m/Daron Peak GR.8mmHg LVOT Diameter2.2 (1.8-2.4cm)Doppler AVA1.91cm2 Pulmonic Valve V20.55m/s Tricuspid Valve TR Velocity2.43m/s [id number] Other Information Quality : Technically LimitedRhythm : Technically limited study due to on vent. Conclusion ENTIRE APICAL AND ANTERIOR WALL SEVERE HYPOKINESIS MODERATELY DILATED LV LV EF IS ONLY 20% MODERATE DEGREE MR AORTIC SCLEROSIS NO EFFUSION MODERATELY DILATED RV,RA AND LA
[2025-06-11 04:22] LABS: Hematocrit 28.1 % (41.0-53.0); Hemoglobin 9.3 g/dL (13.5-17.5); Mean Corpuscular Hemoglobin 35.3 pg (28.0-32.0); Mean Corpuscular Volume 106.1 fL (80.0-100.0); Nucleated Red Blood Cells % 1.8 %
[2025-06-11 04:31] LABS: Potassium 4.5 mmol/L (3.5-5.1)
[2025-06-11 04:32] LABS: Anion Gap 14 (5-15); Calcium 9.4 mg/dL (8.7-10.4); Carbon Dioxide 25 mmol/L (20-31)
[2025-06-11 04:34] LABS: Chloride 96 mmol/L (98-107); Sodium 135 mmol/L (136-145)
[2025-06-11 04:37] LABS: BUN/Creatinine Ratio 8.8 (10.0-20.0)
[2025-06-11 04:46] LABS: Blood Urea Nitrogen 26 mg/dL (9-23); Glucose 158 mg/dL (74-106)
--- NOTE | 2025-06-11 05:49 | DVH ---
CHEST RADIOGRAPH Indication: Acute hypoxic respiratory failure Technique: 1 view Comparison: XY CHEST PORTABLE on DOS: 06/10/25, XY CHEST PORTABLE on DOS: 06/09/25, XY CHEST PORTABLE o n DOS: 06/09/25, XY CHEST XRAY 1 VIEW on DOS: 06/08/25, XY CHEST PORTABLE on DOS: 06/07/25 FINDINGS: Lines and Tubes: Unchanged. Lungs/Pleura: Increased conspicuity of right pleural effusion. The left pleural effusion is incomplet zackary visualized with the left costophrenic angle excluded from field of view. Persistent dense bilater al interstitial opacities. Cardiomediastinum: Unchanged. Other: Unchanged. IMPRESSION: 1. More prominent right pleural effusion may be redistributed or increased from the previous study. 2. No other short interval change. Stable support devices. Other redemonstrated findings compatible with heart failure.
[2025-06-11 06:49] LABS: Base Excess 0.7 mmol/L (-2.0-3.0)
[2025-06-11] MEDS: SODIUM CHL 0.9% 1000 ML BAG XX ONE (07:00)
[2025-06-11] MEDS ORDERED: VANCOMYCIN PER PHARMACY 0 MG IV SCH (08:45)
[2025-06-11] MEDS: PIPERACILLIN-TAZOB 2.25GM 50 ML IV SCH (09:06)
[2025-06-11 09:49] LABS: COVID19 ANTIGEN SOFIA FIA NEGATIVE (NEGATIVE)
[2025-06-11] MEDS: AZITHROMYCIN 500MG/ 250ML 250 ML IV SCH (09:52)
--- NOTE | 2025-06-11 10:15 | DVHPN2 ---
Consult Progress Note Date Seen: Jun 11, 2025 Subjective Other Systems: Cardiology re-consulted for concerns of myocardial ischemia. No overnight cardiac events reported Objective vital signs Vital Sign Date Time Temp Pulse Resp B/P (MAP) Pulse Ox O2 Delivery O2 Flow Rate FiO2 06/11/25 09:57 85 06/11/25 09:56 35 06/11/25 09:56 12 95 Mechanical Ventilator+ 06/11/25 09:45 99/53 (68) 06/11/25 08:00 97.9 97.9 06/09/25 18:00 15 Total Intake and Output 06/10/25 06/10/25 06/11/25 15:00 23:00 07:00 Intake Total 291.504 ml 641.938 ml 418.941 ml Output Total 5 ml Balance 291.504 ml 636.938 ml 418.941 ml medications Current Medications Medications Dose Ordered Sig/Bandar Route Start Time Stop Time Status Last Admin Dose Admin Acetaminophen 650 mg Q6HP PRN PO 05/04/25 15:00 06/04/25 05:45 650 MG Sodium Chloride 10 ml QSHIFT@10,22 IV 05/19/25 22:00 06/11/25 07:21 10 ML Norepinephrine Bitartrate 32 mg/ Sodium Chloride 250 ml @ 0.938 mls/ hr Q24H IV 05/21/25 01:00 06/05/25 21:11 0.938 MLS/HR Pantoprazole Sodium 40 mg DAILY IV 05/21/25 10:00 06/11/25 07:21 40 MG Artificial Tears 1 drop Q6HP PRN EACHEYE 05/21/25 05:00 06/03/25 21:42 1 DROP Diagnostic Test (Pha) 1 strip Q6HR 05/23/25 00:00 06/11/25 05:58 1 STRIP Insulin Human Regular FOLLOW SLIDING SCALE Q6HR SC 05/23/25 00:00 06/11/25 06:10 2 UNITS Dextrose 50 ml UD IV 05/22/25 22:00 05/24/25 11:36 50 ML Albumin Human 100 ml @ 100 mls/hr PRN PRN IV 05/24/25 06:45 06/03/25 06:10 100 MLS/HR Enteral Nutritional Formula 1,000 ml 50ML/HR GT 05/24/25 17:30 06/09/25 21:30 1,000 ML Folic Acid 1 mg DAILY PO 05/25/25 10:00 06/11/25 07:20 1 MG Multivitamins 1 tab DAILY PO 05/25/25 10:00 06/11/25 07:21 1 TAB Cyanocobalamin 1,000 mcg DAILY PO 05/25/25 10:00 06/11/25 07:21 1,000 MCG Pyridoxine HCl 50 mg DAILY PO 05/25/25 10:00 06/11/25 09:52 50 MG Ondansetron HCl 4 mg Q4HPRN PRN IV 05/25/25 18:00 Amiodarone HCl 200 mg Q12HR GT 05/29/25 10:00 06/11/25 07:21 200 MG Clopidogrel Bisulfate 75 mg DAILY NG 06/02/25 18:30 Cancel Clopidogrel Bisulfate 75 mg DAILY NG 06/03/25 10:00 06/11/25 07:21 75 MG Albuterol 1.25 mg Q8HP PRN NEB 06/03/25 14:00 06/11/25 06:03 1.25 MG Acetylcysteine 200 mg Q8HR NEB 06/03/25 14:00 06/11/25 06:03 200 MG Melatonin 5 mg HS PO 06/04/25 22:00 06/09/25 21:27 5 MG Atorvastatin Calcium 40 mg HS PO 06/07/25 22:00 06/10/25 21:29 40 MG Albumin Human 100 ml @ 100 mls/hr ONCE PRN IV 06/09/25 08:45 06/09/25 11:15 100 MLS/HR Epoetin Norm-epbx 10,000 unit MWF@2100 UT 06/10/25 21:00 Midazolam HCl 50 ml @ 1 mls/hr Q24H IV 06/09/25 23:00 06/11/25 07:20 2 MLS/HR Fentanyl Citrate 250 ml @ 2.5 mls/hr Q24H IV 06/09/25 23:00 06/11/25 07:20 7.5 MLS/HR Piperacillin Sod/ Tazobactam Sod 50 ml @ 12.5 mls/hr Q8HR IV 06/11/25 09:06 06/11/25 09:06 12.5 MLS/HR Vancomycin HCl 0 ml @ 0 mls/hr UD IV 06/11/25 08:45 Azithromycin 250 ml @ 125 mls/hr DAILY IV 06/11/25 10:00 06/11/25 09:52 125 MLS/HR Examination: GENERAL:Abnormal (Chronically ill, pale), LUNGS:Abnormal (Endotracheally intubated with 35% FiO2 & PEEP 10.0), CVS:Abnormal (NSR. On single-vasopressor), MSK:Abnormal (Left BKA, necrotic wounds to right lower extremity (see wound care pictures)), NEURO:Abnormal (Chemically sedated) laboratory and microbiology Laboratory Tests 06/11/25 03:43 Test 06/11/25 03:43 Range/Units Serum Glucose 158 H 74-106 mg/dL Problem List/Assessment/Plan Problem List/Assessment/Plan Severe peripheral arterial disease s/p PASTER HAT LINING with stenting of left superficial femoral artery Severe triple-vessel coronary artery disease (has declined CABG) Ischemic cardiomyopathy with LVEF of 20% NSTEMI likely type II secondary to above AD on chronic kidney disease stage III, likely AGUSTIN Acute anemia status post PRBCs Left popliteal vein DVT Status post left BKA Dyslipidemia Obesity Plan/Recommendation (Dr. Ji) The patient with severe peripheral arterial disease is status post peripheral angiogram with PASTER HAT LINING and stenting of left superficial femoral artery. The patient was originally initiated on Plavix and aspirin therapy post-procedure and was also receiving therapeutic Lovenox given left popliteal DVT. Given downtrending H&H along with thrombocytopenia requiring transfusions, he is only on Plavix therapy at this time. He has known multivessel coronary artery disease for which the patient has declined CABG in the past. Transthoracic echocardiogram revealed LVEF 20% with entire apical and anterior wall severe hypokinesis. This is a significant drop in LVEF compared to previous TTE. Not a candidate for stage procedure of the right lower extremity or coronary angiogram given AD, severe anemia, thrombocytopenia, overall clinical instability, overall frailty, and doubtful meaningful recovery which places him at a very high-risk for complications. In the meantime, continue single-antiplatelet therapy and lipid lowering agent. Per guidelines, Xarelto 2.5 mg BID should be considered as adjunct therapy. Initiate when able to tolerate. Continue nephrology recommendations. Consider goals of care. We will sign off at this time. Kindly call with any questions or concerns. Thank you for allowing us to care for this patient. Critical care time: 30 min. This medical document was created using an electronic medical record system with voice recognition software and computerized dictation system. Although this document has been carefully reviewed, there might still be some phonetic and typographical errors. Occasional wrong-word or ``sound-alike substitutions may have occurred due to the inherent limitations of voice recognition software. These areas are purely typographical due to imperfections of the software programs and do not reflect any compromise in the patient's medical care. Please read the chart carefully and recognize, using context, where these substitutions have occurred. Plan discussed with: Other Dietary Evaluation Review Comments: 1) [facility] + cardiac diet 2) Armen 1 pk BID, MVI w/ minerals 1 tab daily, VitC 500mg BID, Zinc sulfate 220mg BID x 10 days 3) Monitor NPO status, lab values, weight trend, and I/O Expected Outcomes/Goals: To meet >75% estimated needs Wound to improve Fu 2-3 days Date of Service: Jun 11, 2025 Billing Provider: MORGAN KATZ Cardiology Common Codes: [id number] CARE 30-74 MIN MORGAN KATZ Jun 11, 2025 10:15
--- NOTE | 2025-06-11 10:57 | DVHPN2 ---
Progress Note Date Seen: Jun 11, 2025 Has the PT tested + for MRSA If YES, has PT been informed?: No Medical Necessity Reason Pt with a Central, PICC or Fol: Yes The following are medically ne: PICC Line, Leung Catheter Subjective Review of Systems: Deferred Objective vital signs Vital Sign Date Time Temp Pulse Resp B/P (MAP) Pulse Ox O2 Delivery O2 Flow Rate FiO2 06/11/25 10:15 84 12 98/52 (67) 96 06/11/25 09:56 35 06/11/25 09:56 Mechanical Ventilator+ 06/11/25 08:00 97.9 97.9 06/09/25 18:00 15 Total Intake and Output 06/10/25 06/10/25 06/11/25 15:00 23:00 07:00 Intake Total 291.504 ml 641.938 ml 418.941 ml Output Total 5 ml Balance 291.504 ml 636.938 ml 418.941 ml medications Current Medications Medications Dose Ordered Sig/Bandar Route Start Time Stop Time Status Last Admin Dose Admin Acetaminophen 650 mg Q6HP PRN PO 05/04/25 15:00 06/04/25 05:45 650 MG Sodium Chloride 10 ml QSHIFT@10,22 IV 05/19/25 22:00 06/11/25 07:21 10 ML Norepinephrine Bitartrate 32 mg/ Sodium Chloride 250 ml @ 0.938 mls/ hr Q24H IV 05/21/25 01:00 06/05/25 21:11 0.938 MLS/HR Pantoprazole Sodium 40 mg DAILY IV 05/21/25 10:00 06/11/25 07:21 40 MG Artificial Tears 1 drop Q6HP PRN EACHEYE 05/21/25 05:00 06/03/25 21:42 1 DROP Diagnostic Test (Pha) 1 strip Q6HR 05/23/25 00:00 06/11/25 10:47 1 STRIP Insulin Human Regular FOLLOW SLIDING SCALE Q6HR SC 05/23/25 00:00 06/11/25 10:47 4 UNITS Dextrose 50 ml UD IV 05/22/25 22:00 05/24/25 11:36 50 ML Albumin Human 100 ml @ 100 mls/hr PRN PRN IV 05/24/25 06:45 06/03/25 06:10 100 MLS/HR Enteral Nutritional Formula 1,000 ml 50ML/HR GT 05/24/25 17:30 06/09/25 21:30 1,000 ML Folic Acid 1 mg DAILY PO 05/25/25 10:00 06/11/25 07:20 1 MG Multivitamins 1 tab DAILY PO 05/25/25 10:00 06/11/25 07:21 1 TAB Cyanocobalamin 1,000 mcg DAILY PO 05/25/25 10:00 06/11/25 07:21 1,000 MCG Pyridoxine HCl 50 mg DAILY PO 05/25/25 10:00 06/11/25 09:52 50 MG Ondansetron HCl 4 mg Q4HPRN PRN IV 05/25/25 18:00 Amiodarone HCl 200 mg Q12HR GT 05/29/25 10:00 06/11/25 07:21 200 MG Clopidogrel Bisulfate 75 mg DAILY NG 06/02/25 18:30 Cancel Clopidogrel Bisulfate 75 mg DAILY NG 06/03/25 10:00 06/11/25 07:21 75 MG Albuterol 1.25 mg Q8HP PRN NEB 06/03/25 14:00 06/11/25 06:03 1.25 MG Acetylcysteine 200 mg Q8HR NEB 06/03/25 14:00 06/11/25 06:03 200 MG Melatonin 5 mg HS PO 06/04/25 22:00 06/09/25 21:27 5 MG Atorvastatin Calcium 40 mg HS PO 06/07/25 22:00 06/10/25 21:29 40 MG Albumin Human 100 ml @ 100 mls/hr ONCE PRN IV 06/09/25 08:45 06/09/25 11:15 100 MLS/HR Epoetin Norm-epbx 10,000 unit MWF@2100 SC 06/10/25 21:00 Midazolam HCl 50 ml @ 1 mls/hr Q24H IV 06/09/25 23:00 06/11/25 07:20 2 MLS/HR Fentanyl Citrate 250 ml @ 2.5 mls/hr Q24H IV 06/09/25 23:00 06/11/25 07:20 7.5 MLS/HR Piperacillin Sod/ Tazobactam Sod 50 ml @ 12.5 mls/hr Q8HR IV 06/11/25 09:06 06/11/25 09:06 12.5 MLS/HR Vancomycin HCl 0 ml @ 0 mls/hr UD IV 06/11/25 08:45 Azithromycin 250 ml @ 125 mls/hr DAILY IV 06/11/25 10:00 06/11/25 09:52 125 MLS/HR laboratory and microbiology Laboratory Tests 06/11/25 03:43 Test 06/11/25 03:43 Range/Units Serum Glucose 158 H 74-106 mg/dL Microbiology Date/Time Source Procedure Growth Status 05/27/25 15:55 Sputum Gram Stain - Final Complete 05/27/25 15:55 Respiratory Culture - Final Stenotrophomonas maltophilia Complete 05/20/25 18:09 Nose MRSA Screen - Final Complete 05/20/25 01:02 Urine - Leung [place] Urine Culture - Final Yeast, not Dulce albicans Complete 05/19/25 08:14 Blood Blood Culture - Final NO GROWTH AFTER 5 DAYS OF INCUBATION. Complete Problem List/Assessment/Plan Problem List/Assessment/Plan Acute kidney injury superimposed Chronic Kidney Disease stage IV secondary hemodynamic mediated, FeNa < 1% Dialysis dependant TC placement and chcf dialysis placement will require facility HD today Chronic kidney disease stage IV followed by Dr. Ponce no evidence of recovery at this time Gangrene left foot, status post left below-knee amputation 05/20 Septic shock Cellulitis lower extremity Left lower extremity DVT Ventilator-dependent hypoxic respiratory failure -> extubated now reintubated per primary team pending trach for probably chronic respiratory failure Diabetes mellitus type 2 Chronic diastolic Congestive heart failure/ NSTEMI History of testicular cancer thrombocytopenia/ anemia no heparin during HD TANI 3x week chcf prognosis is poor, low expectation for meaningful recovery Plan discussed with: Other (nurse) My Orders My Orders Orders - ALEJANDRO PONCE MD Procedure Category Date Status Time Hemodialysis Orders ORDERS 06/11/25 Transmitted 07:00 Dialysis Nursing [facility]OR 06/11/25 In Process Message 07:00 Document Fluid Input SALVADOR 06/11/25 In Process And Outpu 07:00 Dietary Evaluation Review Comments: 1) Advance to [facility] 75gm + cardiac diet 2) Armen 1 pk BID, MVI w/ minerals 1 tab daily, VitC 500mg BID, Zinc sulfate 220mg BID x 10 days 3) Monitor NPO status, lab values, weight trend, and I/O Expected Outcomes/Goals: To meet >75% estimated needs Wound to improve Fu 2-3 days Critical Care Time (mins): 33 ALEJANDRO PONCE MD Jun 11, 2025 10:57
[2025-06-11] MEDS: VANCOMYCIN 1GM/250ML KIT 250 ML IV ONE (14:23)
--- NOTE | 2025-06-11 18:47 | DVHPN2 ---
Progress Note - Dictate Date Seen: Jun 11, 2025 Has the PT tested + for MRSA If YES, has PT been informed?: No Medical Necessity Reason Pt with a Central, PICC or Fol: Yes The following are medically ne: PICC Line, Leung Catheter vital signs Vital Sign Date Time Temp Pulse Resp B/P (MAP) Pulse Ox O2 Delivery O2 Flow Rate FiO2 06/11/25 18:17 35 06/11/25 18:16 100 06/11/25 18:15 12 110/60 (77) 98 06/11/25 18:15 Mechanical Ventilator+ 06/11/25 16:00 98.2 98.2 06/09/25 18:00 15 Total Intake and Output 06/10/25 06/10/25 06/11/25 15:00 23:00 07:00 Intake Total 291.504 ml 641.938 ml 418.941 ml Output Total 5 ml Balance 291.504 ml 636.938 ml 418.941 ml medications Current Medications Medications Dose Ordered Sig/Bandar Route Start Time Stop Time Status Last Admin Dose Admin Acetaminophen 650 mg Q6HP PRN PO 05/04/25 15:00 06/04/25 05:45 650 MG Sodium Chloride 10 ml QSHIFT@10,22 IV 05/19/25 22:00 06/11/25 07:21 10 ML Norepinephrine Bitartrate 32 mg/ Sodium Chloride 250 ml @ 0.938 mls/ hr Q24H IV 05/21/25 01:00 06/05/25 21:11 0.938 MLS/HR Pantoprazole Sodium 40 mg DAILY IV 05/21/25 10:00 06/11/25 07:21 40 MG Artificial Tears 1 drop Q6HP PRN EACHEYE 05/21/25 05:00 06/03/25 21:42 1 DROP Diagnostic Test (Pha) 1 strip Q6HR 05/23/25 00:00 06/11/25 14:23 1 STRIP Insulin Human Regular FOLLOW SLIDING SCALE Q6HR SC 05/23/25 00:00 06/11/25 17:08 2 UNITS Dextrose 50 ml UD IV 05/22/25 22:00 05/24/25 11:36 50 ML Albumin Human 100 ml @ 100 mls/hr PRN PRN IV 05/24/25 06:45 06/11/25 12:33 100 MLS/HR Enteral Nutritional Formula 1,000 ml 50ML/HR GT 05/24/25 17:30 06/09/25 21:30 1,000 ML Folic Acid 1 mg DAILY PO 05/25/25 10:00 06/11/25 07:20 1 MG Multivitamins 1 tab DAILY PO 05/25/25 10:00 06/11/25 07:21 1 TAB Cyanocobalamin 1,000 mcg DAILY PO 05/25/25 10:00 06/11/25 07:21 1,000 MCG Pyridoxine HCl 50 mg DAILY PO 05/25/25 10:00 06/11/25 09:52 50 MG Ondansetron HCl 4 mg Q4HPRN PRN IV 05/25/25 18:00 Amiodarone HCl 200 mg Q12HR GT 05/29/25 10:00 06/11/25 07:21 200 MG Clopidogrel Bisulfate 75 mg DAILY NG 06/02/25 18:30 Cancel Clopidogrel Bisulfate 75 mg DAILY NG 06/03/25 10:00 06/11/25 07:21 75 MG Albuterol 1.25 mg Q8HP PRN NEB 06/03/25 14:00 06/11/25 18:41 1.25 MG Acetylcysteine 200 mg Q8HR NEB 06/03/25 14:00 06/11/25 18:41 200 MG Melatonin 5 mg HS PO 06/04/25 22:00 06/09/25 21:27 5 MG Atorvastatin Calcium 40 mg HS PO 06/07/25 22:00 06/10/25 21:29 40 MG Albumin Human 100 ml @ 100 mls/hr ONCE PRN IV 06/09/25 08:45 06/09/25 11:15 100 MLS/HR Epoetin Norm-epbx 10,000 unit MWF@2100 SC 06/10/25 21:00 Midazolam HCl 50 ml @ 1 mls/hr Q24H IV 06/09/25 23:00 06/11/25 07:20 2 MLS/HR Fentanyl Citrate 250 ml @ 2.5 mls/hr Q24H IV 06/09/25 23:00 06/11/25 07:20 7.5 MLS/HR Piperacillin Sod/ Tazobactam Sod 50 ml @ 12.5 mls/hr Q8HR IV 06/11/25 09:06 06/11/25 14:09 12.5 MLS/HR Vancomycin HCl 0 ml @ 0 mls/hr UD IV 06/11/25 08:45 Azithromycin 250 ml @ 125 mls/hr DAILY IV 06/11/25 10:00 06/11/25 09:52 125 MLS/HR laboratory and microbiology Laboratory Tests 06/11/25 03:43 Test 06/11/25 03:43 Range/Units Serum Glucose 158 H 74-106 mg/dL Assessment/Plan Impression Acute hypoxemic respiratory failure Atelectasis Fluid overload Pleural effusions Patient seen and examined in the ICU Events on the ventilator ac volume control peep 10 fi02 50% abg: reviewed CXR reviewed Management plan Vent support Titrate to maintain sats 90% or above Sedation for vent synchrony Continue antibiotics F/u cultures consider bronchoscopy Bronchodilators diurese/HD Monitor renal function Monitor electrolytes Supplement as needed Pressors as needed for hemodynamic support To maintain a mean arterial pressure of 65 mmHg full code may need trache and peg Critical care time 35 minutes Dietary Evaluation Review Comments: 1) [facility] + cardiac diet 2) Armen 1 pk BID, MVI w/ minerals 1 tab daily, VitC 500mg BID, Zinc sulfate 220mg BID x 10 days 3) Monitor NPO status, lab values, weight trend, and I/O Expected Outcomes/Goals: To meet >75% estimated needs Wound to improve Fu 2-3 days Plan discussed with: Other (rn) DELROY REDD MD Jun 11, 2025 18:47
--- NOTE | 2025-06-11 19:29 | DVHPNRES ---
"Progress Note Date Seen: Jun 11, 2025 Resident Creating Document: FABRICIO CALVIN RESIDENT Has the PT tested + for MRSA If YES, has PT been informed?: No Medical Necessity Reason Pt with a Central, PICC or Fol: Yes The following are medically ne: PICC Line, Leung Catheter Subjective Review of Systems The patient remains intubated and mechanically ventilated for acute hypoxic respiratory failure. He continues to be critically ill with multiorgan dysfunction including acute decompensated ischemic cardiomyopathy (EF 20%), nonST elevation myocardial infarction type 2 (NSTEMI Type 2) secondary to oxygen supplydemand mismatch, and ESRD on hemodialysis. Overnight, the norepinephrine requirement increased from 8 to 12 g/min, reflecting worsening hemodynamic instability. The patient remains anuric, undergoing hemodialysis today for volume control and clearance. He is receiving Zosyn and Azithromycin for broad-spectrum coverage; Bactrim was discontinued yesterday due to renal toxicity and improved leukocyte count. Sedated with midazolam and fentanyl infusions for ventilator compliance. Tube feeding via Glucerna formula continues, tolerated well. Stool output 5 mL today (down from 325 mL yesterday). Cardiology consult reviewed today: * Diagnosis of NSTEMI Type 2 secondary to severe ischemic cardiomyopathy (LVEF 20%), triple-vessel CAD, and diffuse peripheral vascular disease. * CABG and coronary angiography deferred due to severe anemia, thrombocytopenia, ESRD, and overall poor functional status, placing the patient at prohibitive procedural risk. * Plan: Continue single antiplatelet therapy (aspirin) and lipid-lowering therapy (atorvastatin) per guideline-directed therapy. Echocardiogram: * LVEF 20%, anterior and apical wall hypokinesis, moderate MR/TR, no pericardial effusion. Labs: * WBC: 9.0 (stable) * Hgb: 9.3 (stable) * Plt: 132 K (improving) * K: 4.5 * BUN: 26 (?) * Cr: 2.94 (?, ESRD) * ABG: pH 7.314 (acidotic), pCO? 55.4 (?), pO? 121.5, respiratory acidosis partially compensated. * Troponin-HS: 1620 ng/L (?) Vital Signs:?BP 111/66 mm Hg | HR 99 bpm | RR 12 (increased to 14) | SpO? 98% on mechanical ventilation Consults: * Cardiology: NSTEMI Type 2, severe ischemic cardiomyopathy, conservative management. * Pulmonology: For bronchoscopy and ongoing ventilator management. * GI & Surgery: For PEG and tracheostomy placement. Critically ill patient with NSTEMI Type 2, EF 20%, shock requiring vasopressors, ESRD on HD, ventilator dependence, Objective vital signs Vital Sign Date Time Temp Pulse Resp B/P (MAP) Pulse Ox O2 Delivery O2 Flow Rate FiO2 06/11/25 18:50 99 12 111/66 (81) 98 35 06/11/25 18:15 Mechanical Ventilator+ 06/11/25 16:00 98.2 98.2 06/09/25 18:00 15 Total Intake and Output 06/10/25 06/10/25 06/11/25 15:00 23:00 07:00 Intake Total 291.504 ml 641.938 ml 418.941 ml Output Total 5 ml Balance 291.504 ml 636.938 ml 418.941 ml medications Current Medications Medications Dose Ordered Sig/Bandar Route Start Time Stop Time Status Last Admin Dose Admin Acetaminophen 650 mg Q6HP PRN PO 05/04/25 15:00 06/04/25 05:45 650 MG Sodium Chloride 10 ml QSHIFT@10,22 IV 05/19/25 22:00 06/11/25 07:21 10 ML Norepinephrine Bitartrate 32 mg/ Sodium Chloride 250 ml @ 0.938 mls/ hr Q24H IV 05/21/25 01:00 06/05/25 21:11 0.938 MLS/HR Pantoprazole Sodium 40 mg DAILY IV 05/21/25 10:00 06/11/25 07:21 40 MG Artificial Tears 1 drop Q6HP PRN EACHEYE 05/21/25 05:00 06/03/25 21:42 1 DROP Diagnostic Test (Pha) 1 strip Q6HR 05/23/25 00:00 06/11/25 14:23 1 STRIP Insulin Human Regular FOLLOW SLIDING SCALE Q6HR SC 05/23/25 00:00 06/11/25 17:08 2 UNITS Dextrose 50 ml UD IV 05/22/25 22:00 05/24/25 11:36 50 ML Albumin Human 100 ml @ 100 mls/hr PRN PRN IV 05/24/25 06:45 06/11/25 12:33 100 MLS/HR Enteral Nutritional Formula 1,000 ml 50ML/HR GT 05/24/25 17:30 10/2/25 21:30 1,000 ML Folic Acid 1 mg DAILY PO 05/25/25 10:00 06/11/25 07:20 1 MG Multivitamins 1 tab DAILY PO 05/25/25 10:00 06/11/25 07:21 1 TAB Cyanocobalamin 1,000 mcg DAILY PO 05/25/25 10:00 06/11/25 07:21 1,000 MCG Pyridoxine HCl 50 mg DAILY PO 05/25/25 10:00 06/11/25 09:52 50 MG Ondansetron HCl 4 mg Q4HPRN PRN IV 05/25/25 18:00 Amiodarone HCl 200 mg Q12HR GT 05/29/25 10:00 06/11/25 07:21 200 MG Clopidogrel Bisulfate 75 mg DAILY NG 06/02/25 18:30 Cancel Clopidogrel Bisulfate 75 mg DAILY NG 06/03/25 10:00 06/11/25 07:21 75 MG Albuterol 1.25 mg Q8HP PRN NEB 06/03/25 14:00 06/11/25 18:41 1.25 MG Acetylcysteine 200 mg Q8HR NEB 06/03/25 14:00 06/11/25 18:41 200 MG Melatonin 5 mg HS PO 06/04/25 22:00 06/09/25 21:27 5 MG Atorvastatin Calcium 40 mg HS PO 06/07/25 22:00 06/10/25 21:29 40 MG Albumin Human 100 ml @ 100 mls/hr ONCE PRN IV 06/09/25 08:45 06/09/25 11:15 100 MLS/HR Epoetin Norm-epbx 10,000 unit MWF@2100 ND 06/10/25 21:00 Midazolam HCl 50 ml @ 1 mls/hr Q24H IV 06/09/25 23:00 06/11/25 07:20 2 MLS/HR Fentanyl Citrate 250 ml @ 2.5 mls/hr Q24H IV 06/09/25 23:00 06/11/25 07:20 7.5 MLS/HR Piperacillin Sod/ Tazobactam Sod 50 ml @ 12.5 mls/hr Q8HR IV 06/11/25 09:06 06/11/25 14:09 12.5 MLS/HR Vancomycin HCl 0 ml @ 0 mls/hr UD IV 06/11/25 08:45 Azithromycin 250 ml @ 125 mls/hr DAILY IV 06/11/25 10:00 06/11/25 09:52 125 MLS/HR Examination * General: Sedated, intubated, critically ill. * HEENT: ETT and NG tube in place. * CV: Regular rhythm, HR 90s, cool extremities, mild dependent edema. * Resp: Bilateral diminished breath sounds, scattered crackles, vent synchronized. * Abd: Soft, non-tender; feeding via NG tube. * Ext: No cyanosis; left BKA stump clean. * Skin: Warm, intact. * Neuro: Sedated but purposeful withdrawal to pain. laboratory and microbiology Laboratory Tests 06/11/25 03:43 Test 06/11/25 03:43 Range/Units Serum Glucose 158 H 74-106 mg/dL Microbiology Date/Time Source Procedure Growth Status 06/09/25 23:00 Sputum Gram Stain - Final Resulted 06/09/25 23:00 Sputum Respiratory Culture - Preliminary Resulted 05/20/25 18:09 Nose MRSA Screen - Final Complete 05/20/25 01:02 Urine - [place]ung [place] Urine Culture - Final Yeast, not Dulce albicans Complete 05/19/25 08:14 Blood Blood Culture - Final NO GROWTH AFTER 5 DAYS OF INCUBATION. Complete Problem List/Assessment/Plan Problem List/Assessment/Plan Assessment Critical, complex multi-organ failure patient. 1. Severe Sepsis / Pneumonia due to MDR organisms (Stenotrophomonas, Pseudomonas, Enterobacter). On broad antimicrobials (Ciprofloxacin, TMP-SMX, Micafungin).POA 3. 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 Volume overload / Edema due to oligoanuria and CHF POA 5. Atrial fibrillation previously on amiodarone drip; now rate-controlled. 6. Acute on Chronic HFrEF 7. PAD with Left foot gangrene s/p BKA stable surgical site. POA 9. Metabolic encephalopathy improving; patient follows commands. 10. History of DVT prophylaxis complicated by thrombocytopenia. 11. Poor prognosis given multi-organ dysfunction, infections, dialysis- dependence. . NSTEMI Type 2 ruled in * Secondary to ischemic cardiomyopathy with EF 20%, triple-vessel CAD, anemia, and critical illness. * Managed conservatively due to non-candidacy for CABG/PCI. Ischemic cardiomyopathy with severe LV systolic dysfunction (EF 20%) ruled in * LVEF 20% with anterior/apical wall hypokinesis; requiring vasopressors. Cardiogenic shock ruled in * Increasing norepinephrine requirement; evidence of poor perfusion. 4. Acute hypoxemic respiratory failure ruled in * Mechanically ventilated, FiO? adjusted for SpO? > 92%. 5. AD on CKD Stage 3 on ESRD (intrarenal ischemic ATN) * Anuric, BUN/Cr 26/2.94, on scheduled HD. 6. Severe dysphagia with aspiration risk ruled in * PEG and tracheostomy planned for long-term support. 7. Anemia of chronic disease (CKD-related, status post-PRBC transfusion) ruled in * Stable Hgb 9.3. 8. Thrombocytopenia (improving) ruled in * Platelets 132 K, improving trend. 9. Type 2 diabetes mellitus, controlled ruled in. 10. PAD s/p [employer] and left BKA chronic, stable. 11. Dyslipidemia and obesity chronic, continue management. Plan [facility] Cardiac / Hemodynamics * Continue norepinephrine infusion, titrate for MAP > 65 mmHg. * Cardiology recommendations: * Continue single antiplatelet (CLOPIDODREL 75mg daily). * Continue atorvastatin 40 mg nightly. * No invasive intervention (CABG/PCI) due to high surgical risk. * Daily ECG and troponin trending. * Fluid balance optimization via HD. Respiratory * Continue mechanical ventilation, adjust RR to 14 for hypercapnia. * Pulmonology consult for bronchoscopy to evaluate secretions. * Daily ABG and CXR. * Tracheostomy planned for prolonged dependence. Renal * HD today with ultrafiltration as tolerated. * Monitor daily BMP, Mg, Phos. * Strict I&O, daily weights. * Avoid nephrotoxins. Hematology * Monitor CBC daily. * Transfuse PRBC if Hgb <7 g/dL or symptomatic. * Transfuse platelets if <30 K or <50 K before procedure. * Hold pharmacologic DVT prophylaxis; SCDs only. GI / Nutrition * Continue Glucerna tube feeds via NG tube. * NPO except tube feeds. * GI & Surgery consults for PEG and tracheostomy. * Pantoprazole 40 mg IV daily for GI prophylaxis. Infectious Disease * Continue Zosyn + Azithromycin. * Discontinued Bactrim yesterday (renal adjustment). * Trend WBC, cultures, and clinical response. Endocrine / Metabolic * Insulin sliding scale; target glucose 671038 mg/dL. * Replete electrolytes as needed. Sedation / Analgesia * Continue fentanyl and midazolam infusions. * Titrate to RASS 2 to 3. Prophylaxis * DVT: SCDs only (no heparin due to thrombocytopenia). * GI: Pantoprazole daily. * Skin: Turn q2h, offload pressure points. * CLABSI bundle: Daily line check. Palliative Care * Discuss hospice option with patient/family. * Social work and palliative consult placed. Case discussed in detail with the attending physician, including the clinical presentation, diagnostic workup, and comprehensive management plan. The duration of time spent in direct critical care management of this patient, including evaluation, review of clinical data, coordination of care, and decision-making, was 45 minutes. Plan discussed with: Other (RN) My Orders My Orders Orders - FABRICIO CALVIN RESIDENT Procedure Category Date Status Time Piperacillin-Tazob PHA 06/11/25 In Process 2.25gm (Zosyn 2.25gm) 09:06 Vancomycin Per PHA 06/11/25 In Process Pharmacy 08:45 Blood Culture EUGENIO 06/11/25 In Process 08:46 Respiratory Culture EUGENIO 06/11/25 In Process W/ Gs 12:33 Mrsa Screen EUGENIO 06/11/25 In Process 09:02 Electrocardigram EKG 06/11/25 Logged 08:33 Azithromycin 500mg/ PHA 06/11/25 In Process 250ml (Zithromax 50 10:00 * Cardiology Consult CONS 06/11/25 Transmitted 08:40 Complete Blood Count LAB 06/12/25 Verified 04:00 Creatinine LAB 06/12/25 Verified 04:00 Vancomycin,Random LAB 06/12/25 Verified 04:00 Comprehensive LAB 06/12/25 Verified Metabolic Panel 04:00 Abg W/ Co-Ox RT 06/12/25 Verified 04:00 Magnesium LAB 06/12/25 Verified 04:00 Chest Xray 1 View XY 06/12/25 Verified 04:00 Dietary Evaluation Review Comments: 1) [facility] diet 2) Armen 1 pk BID, MVI w/ minerals 1 tab daily, VitC 500mg BID, Zinc sulfate 220mg BID x 10 days 3) Monitor NPO status, lab values, weight trend, and I/O Expected Outcomes/Goals: To meet >75% estimated needs Wound to improve Fu 2-3 days Date of Service: Jun 12, 2025 Billing Provider: FLORENTIN BAJWA DO Common Visit Codes: [id number] CARE 30-74 MIN FABRICIO CALVIN RESIDENT Jun 11, 2025 19:29 FLORENTIN BAJWA DO Jun 13, 2025 16:13"
[2025-06-11] MEDS: EPOETIN ALFA-EPBX 10,000 UNIT/1ML VIAL SC SCH (22:04)
[2025-06-12] VITALS (116 sets, daily range): BP systolic 46–120; BP diastolic 24–64; PULSE 79–107; RESP 11–21; TEMP 97.2–99.4; O2SAT 94–100
[2025-06-12 04:25] LABS: Nucleated Red Blood Cells % 0.5 %
[2025-06-12 04:27] LABS: Hematocrit 26.0 % (41.0-53.0); Hemoglobin 8.8 g/dL (13.5-17.5); Mean Corpuscular Hemoglobin 34.6 pg (28.0-32.0); Mean Corpuscular Volume 102.8 fL (80.0-100.0)
[2025-06-12 04:44] LABS: Alanine Aminotransferase 23 U/L (7-40); Albumin 4.3 g/dL (3.2-4.8); Anion Gap 13 (5-15); BUN/Creatinine Ratio 12.1 (10.0-20.0); Calcium 9.9 mg/dL (8.7-10.4); Carbon Dioxide 30 mmol/L (20-31); Magnesium 2.1 mg/dL (1.6-2.6); Potassium 4.7 mmol/L (3.5-5.1); Sodium 138 mmol/L (136-145); Total Protein 6.8 g/dL (5.7-8.2)
[2025-06-12 04:45] LABS: Bilirubin, Total 1.2 mg/dL (0.2-1.0)
[2025-06-12 04:50] LABS: Alkaline Phosphatase 130 U/L (46-116); Blood Urea Nitrogen 36 mg/dL (9-23); Chloride 95 mmol/L (98-107); Glucose 123 mg/dL (74-106)
--- NOTE | 2025-06-12 07:07 | DVH ---
CHEST RADIOGRAPH Indication: ACUTE HYPOXIC RESPIRATORY FAILURE Technique: Single frontal view of the chest was obtained Comparison: XY CHEST XRAY 1 VIEW on DOS: 06/11/25, XY CHEST PORTABLE on DOS: 06/10/25, XY CHEST PORTABL E on DOS: 06/09/25 IMPRESSION: Heart appears stable in size. Endotracheal tube, enteric tube, right dialysis catheter, and left PIC C line appear unchanged in satisfactory position. Patchy airspace opacities appear mildly improved pr edominantly in the right lower lung. There is a small right pleural effusion. [id number] pulmo nary vascular congestion. No pneumothorax.
[2025-06-12 07:45] LABS: Base Excess 2.0 mmol/L (-2.0-3.0)
--- NOTE | 2025-06-12 12:25 | DVHPN2 ---
Progress Note Date Seen: Jun 12, 2025 Has the PT tested + for MRSA If YES, has PT been informed?: No Medical Necessity Reason Pt with a Central, PICC or Fol: Yes The following are medically ne: PICC Line, Leung Catheter Subjective Review of Systems: Deferred Objective vital signs Vital Sign Date Time Temp Pulse Resp B/P (MAP) Pulse Ox O2 Delivery O2 Flow Rate FiO2 06/12/25 11:34 83 13 97/42 (60) 100 35 06/12/25 09:56 Mechanical Ventilator+ 06/12/25 08:00 97.9 97.9 Total Intake and Output 06/11/25 06/11/25 06/12/25 14:59 22:59 06:59 Intake Total 630.375 ml 434.441 ml 343.440 ml Balance 630.375 ml 434.441 ml 343.440 ml medications Current Medications Medications Dose Ordered Sig/Bandar Route Start Time Stop Time Status Last Admin Dose Admin Acetaminophen 650 mg Q6HP PRN PO 05/04/25 15:00 06/04/25 05:45 650 MG Sodium Chloride 10 ml QSHIFT@10,22 IV 05/19/25 22:00 06/12/25 07:33 10 ML Norepinephrine Bitartrate 32 mg/ Sodium Chloride 250 ml @ 0.938 mls/ hr Q24H IV 05/21/25 01:00 06/11/25 15:00 9.375 MLS/HR Pantoprazole Sodium 40 mg DAILY IV 05/21/25 10:00 06/12/25 07:33 40 MG Artificial Tears 1 drop Q6HP PRN EACHEYE 05/21/25 05:00 06/03/25 21:42 1 DROP Diagnostic Test (Pha) 1 strip Q6HR 05/23/25 00:00 06/12/25 12:01 1 STRIP Insulin Human Regular FOLLOW SLIDING SCALE Q6HR SC 05/23/25 00:00 06/12/25 12:01 4 UNITS Dextrose 50 ml UD IV 05/22/25 22:00 05/24/25 11:36 50 ML Albumin Human 100 ml @ 100 mls/hr PRN PRN IV 05/24/25 06:45 06/11/25 12:33 100 MLS/HR Enteral Nutritional Formula 1,000 ml 50ML/HR GT 05/24/25 17:30 06/09/25 21:30 1,000 ML Folic Acid 1 mg DAILY PO 05/25/25 10:00 06/12/25 07:34 1 MG Multivitamins 1 tab DAILY PO 05/25/25 10:00 06/12/25 07:34 1 TAB Cyanocobalamin 1,000 mcg DAILY PO 05/25/25 10:00 06/12/25 07:34 1,000 MCG Pyridoxine HCl 50 mg DAILY PO 05/25/25 10:00 06/12/25 07:34 50 MG Ondansetron HCl 4 mg Q4HPRN PRN IV 05/25/25 18:00 Amiodarone HCl 200 mg Q12HR GT 05/29/25 10:00 06/12/25 07:34 200 MG Clopidogrel Bisulfate 75 mg DAILY NG 06/02/25 18:30 Cancel Clopidogrel Bisulfate 75 mg DAILY NG 06/03/25 10:00 06/12/25 07:34 75 MG Albuterol 1.25 mg Q8HP PRN NEB 06/03/25 14:00 06/12/25 06:17 1.25 MG Acetylcysteine 200 mg Q8HR NEB 06/03/25 14:00 06/12/25 06:17 200 MG Melatonin 5 mg HS PO 06/04/25 22:00 06/09/25 21:27 5 MG Atorvastatin Calcium 40 mg HS PO 06/07/25 22:00 06/11/25 22:05 40 MG Albumin Human 100 ml @ 100 mls/hr ONCE PRN IV 06/09/25 08:45 06/09/25 11:15 100 MLS/HR Epoetin Norm-epbx 10,000 unit MWF@2100 SC 06/10/25 21:00 06/11/25 22:04 10,000 UNIT Midazolam HCl 50 ml @ 1 mls/hr Q24H IV 06/09/25 23:00 06/11/25 07:20 2 MLS/HR Fentanyl Citrate 250 ml @ 2.5 mls/hr Q24H IV 06/09/25 23:00 06/11/25 07:20 7.5 MLS/HR Piperacillin Sod/ Tazobactam Sod 50 ml @ 12.5 mls/hr Q8HR IV 06/11/25 09:06 06/12/25 05:28 12.5 MLS/HR Vancomycin HCl 0 ml @ 0 mls/hr UD IV 06/11/25 08:45 Azithromycin 250 ml @ 125 mls/hr DAILY IV 06/11/25 10:00 06/12/25 07:33 125 MLS/HR Examination: GENERAL:Abnormal, LUNGS:Abnormal, CVS:Abnormal, SKIN:Abnormal, NEURO:Abnormal laboratory and microbiology Laboratory Tests 06/12/25 04:11 Test 06/12/25 04:11 Range/Units Serum Glucose 123 H 74-106 mg/dL Microbiology Date/Time Source Procedure Growth Status 06/11/25 12:50 Sputum Gram Stain Pending Resulted 06/11/25 12:50 Sputum Respiratory Culture - Preliminary Resulted 06/11/25 09:40 Blood Blood Culture - Preliminary NO GROWTH AFTER 24 HOURS OF INCUBATION. Resulted 05/20/25 18:09 Nose MRSA Screen - Final Complete 05/20/25 01:02 Urine - Leung Port Urine Culture - Final Yeast, not Dulce albicans Complete Problem List/Assessment/Plan Problem List/Assessment/Plan Acute kidney injury superimposed Chronic Kidney Disease stage IV secondary hemodynamic mediated, FeNa < 1% Dialysis dependant TC placement and retirement dialysis placement will require facility HD today repeat Chronic kidney disease stage IV followed by Dr. Ponce no evidence of recovery at this time Gangrene left foot, status post left below-knee amputation 05/20 Septic shock Cellulitis lower extremity Left lower extremity DVT Ventilator-dependent hypoxic respiratory failure -> extubated now reintubated per primary team pending trach for probably chronic respiratory failure Diabetes mellitus type 2 Chronic diastolic Congestive heart failure/ NSTEMI History of testicular cancer thrombocytopenia/ anemia no heparin during HD TANI 3x week retirement prognosis is poor, low expectation for meaningful recovery Plan discussed with: Other Dietary Evaluation Review Comments: 1) Advance to [facility] 75gm + cardiac diet 2) Armen 1 pk BID, MVI w/ minerals 1 tab daily, VitC 500mg BID, Zinc sulfate 220mg BID x 10 days 3) Monitor NPO status, lab values, weight trend, and I/O Expected Outcomes/Goals: To meet >75% estimated needs Wound to improve Fu 2-3 days Critical Care Time (mins): 33 ALEJANDRO PONCE MD Jun 12, 2025 12:25
[2025-06-12] MEDS: SODIUM CHL 0.9% 1000 ML BAG XX ONE (13:00)
[2025-06-12 14:19] LABS: Alanine Aminotransferase 21 U/L (7-40); Albumin 3.8 g/dL (3.2-4.8); Anion Gap 14 (5-15); BUN/Creatinine Ratio 14.5 (10.0-20.0); Blood Urea Nitrogen 47 mg/dL (9-23); Calcium 9.2 mg/dL (8.7-10.4); Carbon Dioxide 27 mmol/L (20-31); Chloride 96 mmol/L (98-107); Glucose 137 mg/dL (74-106); Potassium 5.0 mmol/L (3.5-5.1); Sodium 137 mmol/L (136-145); Total Protein 6.0 g/dL (5.7-8.2)
[2025-06-12 14:20] LABS: Alkaline Phosphatase 122 U/L (46-116); Bilirubin, Total 1.1 mg/dL (0.2-1.0)
--- NOTE | 2025-06-12 14:58 | DVHPN2 ---
Progress Note - Dictate Date Seen: Jun 12, 2025 Has the PT tested + for MRSA If YES, has PT been informed?: No Medical Necessity Reason Pt with a Central, PICC or Fol: Yes The following are medically ne: PICC Line, Leung Catheter vital signs Vital Sign Date Time Temp Pulse Resp B/P (MAP) Pulse Ox O2 Delivery O2 Flow Rate FiO2 06/12/25 14:04 35 06/12/25 14:04 12 100 Mechanical Ventilator+ 06/12/25 14:03 82 06/12/25 14:00 98.1 96/47 (63) 208.6 Total Intake and Output 06/11/25 06/11/25 06/12/25 15:00 23:00 07:00 Intake Total 634.125 ml 432.566 ml 340.628 ml Balance 634.125 ml 432.566 ml 340.628 ml medications Current Medications Medications Dose Ordered Sig/Bandar Route Start Time Stop Time Status Last Admin Dose Admin Acetaminophen 650 mg Q6HP PRN PO 05/04/25 15:00 06/04/25 05:45 650 MG Sodium Chloride 10 ml QSHIFT@10,22 IV 05/19/25 22:00 06/12/25 07:33 10 ML Norepinephrine Bitartrate 32 mg/ Sodium Chloride 250 ml @ 0.938 mls/ hr Q24H IV 05/21/25 01:00 06/11/25 15:00 9.375 MLS/HR Pantoprazole Sodium 40 mg DAILY IV 05/21/25 10:00 06/12/25 07:33 40 MG Artificial Tears 1 drop Q6HP PRN EACHEYE 05/21/25 05:00 06/03/25 21:42 1 DROP Diagnostic Test (Pha) 1 strip Q6HR 05/23/25 00:00 06/12/25 12:01 1 STRIP Insulin Human Regular FOLLOW SLIDING SCALE Q6HR SC 05/23/25 00:00 06/12/25 12:01 4 UNITS Dextrose 50 ml UD IV 05/22/25 22:00 05/24/25 11:36 50 ML Albumin Human 100 ml @ 100 mls/hr PRN PRN IV 05/24/25 06:45 06/11/25 12:33 100 MLS/HR Enteral Nutritional Formula 1,000 ml 50ML/HR GT 05/24/25 17:30 10/2/25 21:30 1,000 ML Folic Acid 1 mg DAILY PO 05/25/25 10:00 06/12/25 07:34 1 MG Multivitamins 1 tab DAILY PO 05/25/25 10:00 06/12/25 07:34 1 TAB Cyanocobalamin 1,000 mcg DAILY PO 05/25/25 10:00 06/12/25 07:34 1,000 MCG Pyridoxine HCl 50 mg DAILY PO 05/25/25 10:00 06/12/25 07:34 50 MG Ondansetron HCl 4 mg Q4HPRN PRN IV 05/25/25 18:00 Amiodarone HCl 200 mg Q12HR GT 05/29/25 10:00 06/12/25 07:34 200 MG Clopidogrel Bisulfate 75 mg DAILY NG 06/02/25 18:30 Cancel Clopidogrel Bisulfate 75 mg DAILY NG 06/03/25 10:00 06/12/25 07:34 75 MG Albuterol 1.25 mg Q8HP PRN NEB 06/03/25 14:00 06/12/25 13:50 1.25 MG Acetylcysteine 200 mg Q8HR NEB 06/03/25 14:00 06/12/25 13:50 200 MG Melatonin 5 mg HS PO 06/04/25 22:00 06/09/25 21:27 5 MG Atorvastatin Calcium 40 mg HS PO 06/07/25 22:00 06/11/25 22:05 40 MG Albumin Human 100 ml @ 100 mls/hr ONCE PRN IV 06/09/25 08:45 06/09/25 11:15 100 MLS/HR Epoetin Norm-epbx 10,000 unit MWF@2100 [place] 06/10/25 21:00 06/11/25 22:04 10,000 UNIT Midazolam HCl 50 ml @ 1 mls/hr Q24H IV 06/09/25 23:00 06/11/25 07:20 2 MLS/HR Fentanyl Citrate 250 ml @ 2.5 mls/hr Q24H IV 06/09/25 23:00 06/11/25 07:20 7.5 MLS/HR Piperacillin Sod/ Tazobactam Sod 50 ml @ 12.5 mls/hr Q8HR IV 06/11/25 09:06 06/12/25 12:37 12.5 MLS/HR Vancomycin HCl 0 ml @ 0 mls/hr UD IV 06/11/25 08:45 Azithromycin 250 ml @ 125 mls/hr DAILY IV 06/11/25 10:00 06/12/25 07:33 125 MLS/HR laboratory and microbiology Laboratory Tests 06/12/25 13:49 06/12/25 04:11 Test 06/12/25 13:49 Range/Units Serum Glucose 137 H 74-106 mg/dL Assessment/Plan Impression Acute hypoxemic respiratory failure Atelectasis Fluid overload Pleural effusions Patient seen and examined in the ICU Events on the ventilator s/p reintubation ac volume control peep 10 fi02 50% abg: reviewed CXR reviewed Management plan Vent support Titrate to maintain sats 90% or above Sedation for vent synchrony Continue antibiotics F/u cultures consider bronchoscopy Bronchodilators diurese/HD Monitor renal function Monitor electrolytes Supplement as needed Pressors as needed for hemodynamic support To maintain a mean arterial pressure of 65 mmHg full code may need trache and peg Critical care time 35 minutes Dietary Evaluation Review Comments: 1) [facility] 75[facility] + cardiac diet 2) Armen 1 pk BID, MVI w/ minerals 1 tab daily, VitC 500mg BID, Zinc sulfate 220mg BID x 10 days 3) Monitor NPO status, lab values, weight trend, and I/O Expected Outcomes/Goals: To meet >75% estimated needs Wound to improve Fu 2-3 days Plan discussed with: Other (Rn) DELRYO REDD MD Jun 12, 2025 14:58
--- NOTE | 2025-06-12 20:09 | DVHPN2 ---
Progress Note - Dictate Date Seen: Jun 12, 2025 Has the PT tested + for MRSA If YES, has PT been informed?: No Medical Necessity Reason Pt with a Central, PICC or Fol: Yes The following are medically ne: PICC Line, Leung Catheter Subjective Critically ill patient with NSTEMI Type 2, EF 20%, shock requiring vasopressors, ESRD on HD, ventilator dependence, vital signs Vital Sign Date Time Temp Pulse Resp B/P (MAP) Pulse Ox O2 Delivery O2 Flow Rate FiO2 06/12/25 18:24 80 06/12/25 18:15 97.7 13 107/55 (72) 100 207.9 06/12/25 18:01 35 06/12/25 17:33 Mechanical Ventilator+ Total Intake and Output 06/11/25 06/11/25 06/12/25 15:00 23:00 07:00 Intake Total 634.125 ml 432.566 ml 340.628 ml Balance 634.125 ml 432.566 ml 340.628 ml medications Current Medications Medications Dose Ordered Sig/Bandar Route Start Time Stop Time Status Last Admin Dose Admin Acetaminophen 650 mg Q6HP PRN PO 05/04/25 15:00 06/04/25 05:45 650 MG Sodium Chloride 10 ml QSHIFT@10,22 IV 05/19/25 22:00 06/12/25 07:33 10 ML Norepinephrine Bitartrate 32 mg/ Sodium Chloride 250 ml @ 0.938 mls/ hr Q24H IV 05/21/25 01:00 06/11/25 15:00 9.375 MLS/HR Pantoprazole Sodium 40 mg DAILY IV 05/21/25 10:00 06/12/25 07:33 40 MG Artificial Tears 1 drop Q6HP PRN EACHEYE 05/21/25 05:00 06/03/25 21:42 1 DROP Diagnostic Test (Pha) 1 strip Q6HR 05/23/25 00:00 06/12/25 16:49 1 STRIP Insulin Human Regular FOLLOW SLIDING SCALE Q6HR SC 05/23/25 00:00 06/12/25 12:01 4 UNITS Dextrose 50 ml UD IV 05/22/25 22:00 05/24/25 11:36 50 ML Albumin Human 100 ml @ 100 mls/hr PRN PRN IV 05/24/25 06:45 06/11/25 12:33 100 MLS/HR Enteral Nutritional Formula 1,000 ml 50ML/HR GT 05/24/25 17:30 06/09/25 21:30 1,000 ML Folic Acid 1 mg DAILY PO 05/25/25 10:00 06/12/25 07:34 1 MG Multivitamins 1 tab DAILY PO 05/25/25 10:00 06/12/25 07:34 1 TAB Cyanocobalamin 1,000 mcg DAILY PO 05/25/25 10:00 06/12/25 07:34 1,000 MCG Pyridoxine HCl 50 mg DAILY PO 05/25/25 10:00 06/12/25 07:34 50 MG Ondansetron HCl 4 mg Q4HPRN PRN IV 05/25/25 18:00 Amiodarone HCl 200 mg Q12HR GT 05/29/25 10:00 06/12/25 07:34 200 MG Clopidogrel Bisulfate 75 mg DAILY NG 06/02/25 18:30 Cancel Clopidogrel Bisulfate 75 mg DAILY NG 06/03/25 10:00 06/12/25 07:34 75 MG Albuterol 1.25 mg Q8HP PRN NEB 06/03/25 14:00 06/12/25 13:50 1.25 MG Acetylcysteine 200 mg Q8HR NEB 06/03/25 14:00 06/12/25 13:50 200 MG Melatonin 5 mg HS PO 06/04/25 22:00 06/09/25 21:27 5 MG Atorvastatin Calcium 40 mg HS PO 06/07/25 22:00 06/11/25 22:05 40 MG Albumin Human 100 ml @ 100 mls/hr ONCE PRN IV 06/09/25 08:45 06/09/25 11:15 100 MLS/HR Epoetin Norm-epbx 10,000 unit MWF@2100 SC 06/10/25 21:00 06/11/25 22:04 10,000 UNIT Midazolam HCl 50 ml @ 1 mls/hr Q24H IV 06/09/25 23:00 06/12/25 16:49 2 MLS/HR Fentanyl Citrate 250 ml @ 2.5 mls/hr Q24H IV 06/09/25 23:00 06/12/25 16:50 7.5 MLS/HR Piperacillin Sod/ Tazobactam Sod 50 ml @ 12.5 mls/hr Q8HR IV 06/11/25 09:06 06/12/25 12:37 12.5 MLS/HR Vancomycin HCl 0 ml @ 0 mls/hr UD IV 06/11/25 08:45 Azithromycin 250 ml @ 125 mls/hr DAILY IV 06/11/25 10:00 06/12/25 07:33 125 MLS/HR Lactulose 30 ml BID PO 06/12/25 22:00 Metoclopramide HCl 5 mg Q8HR IV 06/12/25 22:00 objective General Appearance: Other (Intubated, on vent.) HEENT: Atraumatic, PERRLA Lungs: Clear to auscultation, Other (On vent; transmitted breath sounds bilaterally. Decreased air entry bilaterally. No wheezing or rhonchi. 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 (5) Generalized weakness (6) Urinary retention (7) Chronic kidney disease Prognosis PLAN Continue enteral tube feedings with Glucerna Defer EGD with PEG tube placement until the patient is stabilized Overall his prognosis remains guarded at this time Patient is on IV pressors and IV antibiotics Continue IV PPI Dietary Evaluation Review Comments: 1) Advance to [facility] 75gm + cardiac diet 2) Armen 1 pk BID, MVI w/ minerals 1 tab daily, VitC 500mg BID, Zinc sulfate 220mg BID x 10 days 3) Monitor NPO status, lab values, weight trend, and I/O Expected Outcomes/Goals: To meet >75% estimated needs Wound to improve Fu 2-3 days Plan discussed with: Other (Yesika thompson) GO BERGMAN MD Jun 12, 2025 20:09
[2025-06-12] MEDS: CATHFLO ACTIVASE (ALTEPLASE) 2 MG VIAL XX ONE ×2 (22:00→22:28)
[2025-06-12] MEDS: CATHFLO ACTIVASE (ALTEPLASE) 2 MG VIAL ONE ×2 (22:05→22:22)
[2025-06-12] MEDS: LACTULOSE 20Gm/30ML SOLN PO SCH (22:30)
[2025-06-12] MEDS: METOCLOPRAMIDE HCL 5MG/ml INJ 2ml VIAL IV SCH (22:30)
[2025-06-12] MEDS: STERILE WATER 20 ML ONE (22:31)
[2025-06-13] VITALS (106 sets, daily range): BP systolic 92–116; BP diastolic 42–66; PULSE 82–113; RESP 12–15; TEMP 97.2–98.1; O2SAT 90–100
--- NOTE | 2025-06-13 04:22 | DVH ---
CHEST RADIOGRAPH Indication: RESP DISTRESS Technique: 1 view Comparison: XY CHEST XRAY 1 VIEW on DOS: 06/12/25, XY CHEST XRAY 1 VIEW on DOS: 06/11/25, XY CHEST PORT ABLE on DOS: 06/10/25, XY CHEST PORTABLE on DOS: 06/09/25, XY CHEST PORTABLE on DOS: 06/09/25 FINDINGS: Lines and Tubes: Unchanged. Lungs/Pleura: Unchanged. Cardiomediastinum: Unchanged. Other: Unchanged osseous structures. IMPRESSION: 1. No significant change from the previous study. Bilateral infrahilar interstitial opacities, more dense on the left than the right. No large pleural abnormality. Stable support devices.
[2025-06-13 07:20] LABS: Base Excess -0.9 mmol/L (-2.0-3.0)
[2025-06-13 10:03] LABS: Hematocrit 25.4 % (41.0-53.0); Hemoglobin 8.2 g/dL (13.5-17.5); Mean Corpuscular Hemoglobin 34.6 pg (28.0-32.0); Mean Corpuscular Volume 107.1 fL (80.0-100.0); Nucleated Red Blood Cells % 0.2 %
[2025-06-13 10:26] LABS: Anion Gap 15 (5-15); Calcium 9.2 mg/dL (8.7-10.4); Carbon Dioxide 27 mmol/L (20-31); Chloride 97 mmol/L (98-107); Potassium 4.6 mmol/L (3.5-5.1); Sodium 139 mmol/L (136-145)
[2025-06-13 10:29] LABS: BUN/Creatinine Ratio 15.2 (10.0-20.0)
[2025-06-13 10:32] LABS: Alanine Aminotransferase 22 U/L (7-40); Albumin 3.5 g/dL (3.2-4.8); Alkaline Phosphatase 110 U/L (46-116); Bilirubin, Total 1.0 mg/dL (0.2-1.0); Blood Urea Nitrogen 54 mg/dL (9-23); Glucose 133 mg/dL (74-106); Magnesium 2.2 mg/dL (1.6-2.6); Total Protein 5.7 g/dL (5.7-8.2)
--- NOTE | 2025-06-13 10:34 | DVHPN2 ---
Progress Note Date Seen: Jun 13, 2025 Has the PT tested + for MRSA If YES, has PT been informed?: No Medical Necessity Reason Pt with a Central, PICC or Fol: Yes The following are medically ne: PICC Line, Leung Catheter Objective vital signs Vital Sign Date Time Temp Pulse Resp B/P (MAP) Pulse Ox O2 Delivery O2 Flow Rate FiO2 06/13/25 09:38 85 12 111/53 (72) 98 30 06/13/25 08:45 97.7 207.9 06/13/25 08:00 Mechanical Ventilator+ Total Intake and Output 06/12/25 06/12/25 06/13/25 15:00 23:00 07:00 Intake Total 470.063 ml 171.000 ml 278.500 ml Balance 470.063 ml 171.000 ml 278.500 ml medications Current Medications Medications Dose Ordered Sig/Bandar Route Start Time Stop Time Status Last Admin Dose Admin Acetaminophen 650 mg Q6HP PRN PO 05/04/25 15:00 06/04/25 05:45 650 MG Sodium Chloride 10 ml QSHIFT@10,22 IV 05/19/25 22:00 06/13/25 10:05 10 ML Norepinephrine Bitartrate 32 mg/ Sodium Chloride 250 ml @ 0.938 mls/ hr Q24H IV 05/21/25 01:00 06/13/25 00:53 5.625 MLS/HR Pantoprazole Sodium 40 mg DAILY IV 05/21/25 10:00 06/13/25 10:05 40 MG Artificial Tears 1 drop Q6HP PRN EACHEYE 05/21/25 05:00 06/03/25 21:42 1 DROP Diagnostic Test (Pha) 1 strip Q6HR 05/23/25 00:00 06/13/25 06:06 1 STRIP Insulin Human Regular FOLLOW SLIDING SCALE Q6HR SC 05/23/25 00:00 06/13/25 05:48 2 UNITS Dextrose 50 ml UD IV 05/22/25 22:00 05/24/25 11:36 50 ML Albumin Human 100 ml @ 100 mls/hr PRN PRN IV 05/24/25 06:45 06/11/25 12:33 100 MLS/HR Enteral Nutritional Formula 1,000 ml 50ML/HR GT 05/24/25 17:30 06/09/25 21:30 1,000 ML Folic Acid 1 mg DAILY PO 05/25/25 10:00 06/13/25 10:04 1 MG Multivitamins 1 tab DAILY PO 05/25/25 10:00 06/13/25 10:04 1 TAB Cyanocobalamin 1,000 mcg DAILY PO 05/25/25 10:00 06/13/25 10:04 1,000 MCG Pyridoxine HCl 50 mg DAILY PO 05/25/25 10:00 06/13/25 10:06 50 MG Ondansetron HCl 4 mg Q4HPRN PRN IV 05/25/25 18:00 Amiodarone HCl 200 mg Q12HR GT 05/29/25 10:00 06/13/25 10:04 200 MG Clopidogrel Bisulfate 75 mg DAILY NG 06/02/25 18:30 Cancel Clopidogrel Bisulfate 75 mg DAILY NG 06/03/25 10:00 06/13/25 10:04 75 MG Albuterol 1.25 mg Q8HP PRN NEB 06/03/25 14:00 06/13/25 05:59 1.25 MG Acetylcysteine 200 mg Q8HR NEB 06/03/25 14:00 06/13/25 06:00 200 MG Melatonin 5 mg HS PO 06/04/25 22:00 06/09/25 21:27 5 MG Atorvastatin Calcium 40 mg HS PO 06/07/25 22:00 06/12/25 22:31 40 MG Albumin Human 100 ml @ 100 mls/hr ONCE PRN IV 06/09/25 08:45 06/09/25 11:15 100 MLS/HR Epoetin Norm-epbx 10,000 unit MWF@2100 [place] 06/10/25 21:00 06/11/25 22:04 10,000 UNIT Midazolam HCl 50 ml @ 1 mls/hr Q24H IV 06/09/25 23:00 06/12/25 16:49 2 MLS/HR Fentanyl Citrate 250 ml @ 2.5 mls/hr Q24H IV 06/09/25 23:00 06/12/25 16:50 7.5 MLS/HR Piperacillin Sod/ Tazobactam Sod 50 ml @ 12.5 mls/hr Q8HR IV 06/11/25 09:06 06/13/25 06:06 12.5 MLS/HR Vancomycin HCl 0 ml @ 0 mls/hr UD IV 06/11/25 08:45 Azithromycin 250 ml @ 125 mls/hr DAILY IV 06/11/25 10:00 06/13/25 10:04 125 MLS/HR Lactulose 30 ml BID PO 06/12/25 22:00 06/13/25 10:04 30 ML Metoclopramide HCl 5 mg Q8HR IV 06/12/25 22:00 06/13/25 06:06 5 MG laboratory and microbiology Laboratory Tests 06/13/25 09:50 Test 06/13/25 09:50 Range/Units Serum Glucose Pending Problem List/Assessment/Plan Problem List/Assessment/Plan 05/24/25 intubated, receiving hemodialysis left BK amputation being cared for by wound service, wound vac in place, please recall me if needed, will sign off for now, carmen need to stay in wound for another two weeks. 06/13/25 I AM BEING REQUESTED TO DO A TRACHEOSTOMY FOR THIS PATIENT, REVIEWED HIS CHART HIS COAGULOPATHY MUST BE CORRECTED PRIOR TO PROCEEDING WITH TRACHEOSTOMY(HAVE SO INDICATED TO PT'S NURSE). PATIENT IS TENTATIVELY SCHEDULED FOR TRACHEOSTOMY Friday ,PROVIDED THAT VENT.SETTINGS WILL BE ACCEPTABLE AND COAGULOPATHY CORRECTED BY THEN. Plan discussed with: Other Dietary Evaluation Review Comments: 1) [facility] + cardiac diet 2) Armen 1 pk BID, MVI w/ minerals 1 tab daily, VitC 500mg BID, Zinc sulfate 220mg BID x 10 days 3) Monitor NPO status, lab values, weight trend, and I/O Expected Outcomes/Goals: To meet >75% estimated needs Wound to improve Fu 2-3 days DOUG URENA MD Jun 13, 2025 10:34
--- NOTE | 2025-06-13 11:26 | DVHPN2 ---
Progress Note Date Seen: Jun 13, 2025 Has the PT tested + for MRSA If YES, has PT been informed?: No Medical Necessity Reason Pt with a Central, PICC or Fol: Yes The following are medically ne: PICC Line, Leung Catheter Subjective Review of Systems: RESPIRATORY:Abnormal Other Systems: Patient seen and examined by myself today in follow-up, patient remained intubated on ventilator Patient examined hemodialysis, blood pressure stable Objective vital signs Vital Sign Date Time Temp Pulse Resp B/P (MAP) Pulse Ox O2 Delivery O2 Flow Rate FiO2 06/13/25 11:15 98.1 86 12 111/51 (71) 97 208.6 06/13/25 11:08 30 06/13/25 10:00 Mechanical Ventilator+ Total Intake and Output 06/12/25 06/12/25 06/13/25 15:00 23:00 07:00 Intake Total 470.063 ml 171.000 ml 278.500 ml Balance 470.063 ml 171.000 ml 278.500 ml medications Current Medications Medications Dose Ordered Sig/Bandar Route Start Time Stop Time Status Last Admin Dose Admin Acetaminophen 650 mg Q6HP PRN PO 05/04/25 15:00 06/04/25 05:45 650 MG Sodium Chloride 10 ml QSHIFT@10,22 IV 05/19/25 22:00 06/13/25 10:05 10 ML Norepinephrine Bitartrate 32 mg/ Sodium Chloride 250 ml @ 0.938 mls/ hr Q24H IV 05/21/25 01:00 06/13/25 00:53 5.625 MLS/HR Pantoprazole Sodium 40 mg DAILY IV 05/21/25 10:00 06/13/25 10:05 40 MG Artificial Tears 1 drop Q6HP PRN EACHEYE 05/21/25 05:00 06/03/25 21:42 1 DROP Diagnostic Test (Pha) 1 strip Q6HR 05/23/25 00:00 06/13/25 06:06 1 STRIP Insulin Human Regular FOLLOW SLIDING SCALE Q6HR SC 05/23/25 00:00 06/13/25 05:48 2 UNITS Dextrose 50 ml UD IV 05/22/25 22:00 05/24/25 11:36 50 ML Albumin Human 100 ml @ 100 mls/hr PRN PRN IV 05/24/25 06:45 06/11/25 12:33 100 MLS/HR Enteral Nutritional Formula 1,000 ml 50ML/HR GT 05/24/25 17:30 06/09/25 21:30 1,000 ML Folic Acid 1 mg DAILY PO 05/25/25 10:00 06/13/25 10:04 1 MG Multivitamins 1 tab DAILY PO 05/25/25 10:00 06/13/25 10:04 1 TAB Cyanocobalamin 1,000 mcg DAILY PO 05/25/25 10:00 06/13/25 10:04 1,000 MCG Pyridoxine HCl 50 mg DAILY PO 05/25/25 10:00 06/13/25 10:06 50 MG Ondansetron HCl 4 mg Q4HPRN PRN IV 05/25/25 18:00 Amiodarone HCl 200 mg Q12HR GT 05/29/25 10:00 06/13/25 10:04 200 MG Clopidogrel Bisulfate 75 mg DAILY NG 06/02/25 18:30 Cancel Albuterol 1.25 mg Q8HP PRN NEB 06/03/25 14:00 06/13/25 05:59 1.25 MG Acetylcysteine 200 mg Q8HR NEB 06/03/25 14:00 06/13/25 06:00 200 MG Melatonin 5 mg HS PO 06/04/25 22:00 06/09/25 21:27 5 MG Atorvastatin Calcium 40 mg HS PO 06/07/25 22:00 06/12/25 22:31 40 MG Albumin Human 100 ml @ 100 mls/hr ONCE PRN IV 06/09/25 08:45 06/09/25 11:15 100 MLS/HR Epoetin Norm-epbx 10,000 unit MWF@2100 SC 06/10/25 21:00 06/11/25 22:04 10,000 UNIT Midazolam HCl 50 ml @ 1 mls/hr Q24H IV 06/09/25 23:00 06/12/25 16:49 2 MLS/HR Fentanyl Citrate 250 ml @ 2.5 mls/hr Q24H IV 06/09/25 23:00 06/12/25 16:50 7.5 MLS/HR Piperacillin Sod/ Tazobactam Sod 50 ml @ 12.5 mls/hr Q8HR IV 06/11/25 09:06 06/13/25 06:06 12.5 MLS/HR Vancomycin HCl 0 ml @ 0 mls/hr UD IV 06/11/25 08:45 Lactulose 30 ml BID PO 06/12/25 22:00 06/13/25 10:04 30 ML Metoclopramide HCl 5 mg Q8HR IV 06/12/25 22:00 06/13/25 06:06 5 MG Examination: LUNGS:Normal, CVS:Normal, MSK:Normal laboratory and microbiology Laboratory Tests 06/13/25 09:50 Test 06/13/25 09:50 Range/Units Serum Glucose 133 H 74-106 mg/dL Microbiology Date/Time Source Procedure Growth Status 06/11/25 12:50 Sputum Gram Stain Pending Resulted 06/11/25 12:50 Sputum Respiratory Culture - Preliminary Resulted 06/11/25 09:40 Blood Blood Culture - Preliminary NO GROWTH AFTER 48 HOURS OF INCUBATION. Resulted 06/11/25 08:30 Nose MRSA Screen - Final Complete 05/20/25 01:02 Urine - Leung Port Urine Culture - Final Yeast, not Dulce albicans Complete Problem List/Assessment/Plan Problem List/Assessment/Plan Acute kidney injury superimposed Chronic Kidney Disease stage IV secondary hemodynamic mediated, FeNa < 1% requiring intermittent hemodialysis Chronic kidney disease stage IV followed by Dr. Ponce Gangrene left foot, status post left below-knee amputation 05/20 Left lower extremity DVT Diabetes mellitus type 2 Chronic diastolic Congestive heart failure NSTEMI Hyponatremia due to excess H2O Dropping hemoglobin Anemia due to blood loss Metabolic acidosis Septic shock History of testicular cancer Cellulitis lower extremity Recommendations Continue with UF 2 L as tolerated Epogen 70344 subQ 3 times weekly Albumin 25% p.r.n. hemodialysis Strict I&Os kidney ultrasound reported bilateral small echogenic kidneys, no obstruction Fluid restrictions IV pressors for blood pressure support Packed red blood cell transfusion p.r.n. Noted plan for trach and PEG tube We will continue to follow up Total care time 36 minute Plan discussed with: Other (Nurse) My Orders My Orders Orders - QUOC QUINONEZ MD Procedure Category Date Status Time Hemodialysis Orders ORDERS 06/13/25 Verified 11:24 Dietary Evaluation Review Comments: 1) [facility] + cardiac diet 2) Armen 1 pk BID, MVI w/ minerals 1 tab daily, VitC 500mg BID, Zinc sulfate 220mg BID x 10 days 3) Monitor NPO status, lab values, weight trend, and I/O Expected Outcomes/Goals: To meet >75% estimated needs Wound to improve Fu 2-3 days QUOC QUINONEZ MD Jun 13, 2025 11:26
[2025-06-13] MEDS: VANCOMYCIN 500mg/100mL 100 ML IV ONE (12:00)
--- NOTE | 2025-06-13 12:33 | MEDREC ---
[facility] Intervention Section I [facility] Intervention: Review courses of therapy (Sputum finalized with acinetobacter baumanii/haemol resistant to zosyn. Please consider adjusting antibiotic therapy based on susceptibilities.) ABIMAEL GUZMAN [facility] RESIDENT Jun 13, 2025 12:33
--- NOTE | 2025-06-13 13:54 | DVHPN2 ---
Consult Progress Note Date Seen: Jun 13, 2025 Subjective Other Systems: No overnight cardiac events reported Objective vital signs Vital Sign Date Time Temp Pulse Resp B/P (MAP) Pulse Ox O2 Delivery O2 Flow Rate FiO2 06/13/25 12:50 88 12 97 06/13/25 12:00 Mechanical Ventilator+ 35 35 06/13/25 11:15 98.1 208.6 Total Intake and Output 06/12/25 06/12/25 06/13/25 15:00 23:00 07:00 Intake Total 470.063 ml 171.000 ml 278.500 ml Balance 470.063 ml 171.000 ml 278.500 ml medications Current Medications Medications Dose Ordered Sig/Bandar Route Start Time Stop Time Status Last Admin Dose Admin Acetaminophen 650 mg Q6HP PRN PO 05/04/25 15:00 06/04/25 05:45 650 MG Sodium Chloride 10 ml QSHIFT@10,22 IV 05/19/25 22:00 06/13/25 10:05 10 ML Norepinephrine Bitartrate 32 mg/ Sodium Chloride 250 ml @ 0.938 mls/ hr Q24H IV 05/21/25 01:00 06/13/25 00:53 5.625 MLS/HR Pantoprazole Sodium 40 mg DAILY IV 05/21/25 10:00 06/13/25 10:05 40 MG Artificial Tears 1 drop Q6HP PRN EACHEYE 05/21/25 05:00 06/03/25 21:42 1 DROP Diagnostic Test (Pha) 1 strip Q6HR 05/23/25 00:00 06/13/25 12:04 1 STRIP Insulin Human Regular FOLLOW SLIDING SCALE Q6HR SC 05/23/25 00:00 06/13/25 12:07 2 UNITS Dextrose 50 ml UD IV 05/22/25 22:00 05/24/25 11:36 50 ML Albumin Human 100 ml @ 100 mls/hr PRN PRN IV 05/24/25 06:45 06/11/25 12:33 100 MLS/HR Enteral Nutritional Formula 1,000 ml 50ML/HR GT 05/24/25 17:30 06/09/25 21:30 1,000 ML Folic Acid 1 mg DAILY PO 05/25/25 10:00 06/13/25 10:04 1 MG Multivitamins 1 tab DAILY PO 05/25/25 10:00 06/13/25 10:04 1 TAB Cyanocobalamin 1,000 mcg DAILY PO 05/25/25 10:00 06/13/25 10:04 1,000 MCG Pyridoxine HCl 50 mg DAILY PO 05/25/25 10:00 06/13/25 10:06 50 MG Ondansetron HCl 4 mg Q4HPRN PRN IV 05/25/25 18:00 Amiodarone HCl 200 mg Q12HR GT 05/29/25 10:00 06/13/25 10:04 200 MG Clopidogrel Bisulfate 75 mg DAILY NG 06/02/25 18:30 Cancel Albuterol 1.25 mg Q8HP PRN NEB 06/03/25 14:00 06/13/25 05:59 1.25 MG Acetylcysteine 200 mg Q8HR NEB 06/03/25 14:00 06/13/25 06:00 200 MG Melatonin 5 mg HS PO 06/04/25 22:00 06/09/25 21:27 5 MG Atorvastatin Calcium 40 mg HS PO 06/07/25 22:00 06/12/25 22:31 40 MG Albumin Human 100 ml @ 100 mls/hr ONCE PRN IV 06/09/25 08:45 06/09/25 11:15 100 MLS/HR Epoetin Norm-epbx 10,000 unit MWF@2100 SC 06/10/25 21:00 06/11/25 22:04 10,000 UNIT Midazolam HCl 50 ml @ 1 mls/hr Q24H IV 06/09/25 23:00 06/12/25 16:49 2 MLS/HR Fentanyl Citrate 250 ml @ 2.5 mls/hr Q24H IV 06/09/25 23:00 06/12/25 16:50 7.5 MLS/HR Vancomycin HCl 0 ml @ 0 mls/hr UD IV 06/11/25 08:45 Lactulose 30 ml BID PO 06/12/25 22:00 06/13/25 10:04 30 ML Metoclopramide HCl 5 mg Q8HR IV 06/12/25 22:00 06/13/25 06:06 5 MG Meropenem 50 ml @ 17 mls/hr Q12HR IV 06/13/25 14:00 Examination: GENERAL:Abnormal (Chronically ill, pale), LUNGS:Abnormal (Endotracheally intubated 30% FiO2. Diminished BLS L>R), CVS:Abnormal (Sinus rhythm with LBBB and PVCs on quality assurance monitor body. On single-vaopressor), MSK:Abnormal (RLE pedal edema ++), NEURO:Abnormal (Chemically sedated) laboratory and microbiology Laboratory Tests 06/13/25 09:50 Test 06/13/25 09:50 Range/Units Serum Glucose 133 H 74-106 mg/dL Problem List/Assessment/Plan Problem List/Assessment/Plan Preprocedural cardiovascular examination Severe peripheral arterial disease s/p [employer] with stenting of left superficial femoral artery Severe triple-vessel coronary artery disease (has declined CABG) Ischemic cardiomyopathy with LVEF of 20% NSTEMI likely type II secondary to above AD on chronic kidney disease stage III, likely AGUSTIN Acute anemia status post PRBCs Left popliteal vein DVT Status post left BKA Dyslipidemia Obesity Plan/Recommendation (Dr. Ji) The patient with severe peripheral arterial disease is status post peripheral angiogram with [employer] and stenting of left superficial femoral artery. The patient was originally initiated on Plavix and aspirin therapy post-procedure and was also receiving therapeutic Lovenox given left popliteal DVT. Given downtrending H&H along with thrombocytopenia requiring transfusions, he is only on Plavix therapy at this time. He has known multivessel coronary artery disease for which the patient has declined CABG in the past. Transthoracic echocardiogram revealed LVEF 20% with entire apical and anterior wall severe hypokinesis. This is a significant drop in LVEF compared to previous TTE. Not a candidate for stage procedure of the right lower extremity or coronary angiogram given AD, severe anemia, thrombocytopenia, overall clinical instability, overall frailty, and doubtful meaningful recovery which places him at a very high-risk for complications. In the meantime, continue single-antiplatelet therapy and lipid lowering agent. Per guidelines, Xarelto 2.5 mg BID should be considered as adjunct therapy. Initiate when able to tolerate. Continue nephrology recommendations. Consider goals of care. Cardiac risk stratification for Tracheostomy and PEG Tube Placement: Revised cardiac risk index (Winston criteria): 4 points, 10.0% risk of , MA or cardiac arrest. Per Cardiology standpoint, the patient is at a moderate-risk for moderate-risk surgeries. Discontinue single-antiplatelet therapy for at least three-five days prior to surgical intervention and up to the discretion of surgical provider. Resume Plavix therapy within 24 hours post-procedures. Patient is at a high-risk for in-stent restenosis. Monitor closely and notify cardiology if suspected re-stenosis is present. Kindly call with any questions or concerns. Thank you for allowing us to care for this patient. Critical care time: 30 min. This medical document was created using an electronic medical record system with voice recognition software and computerized dictation system. Although this document has been carefully reviewed, there might still be some phonetic and typographical errors. Occasional wrong-word or ``sound-alike substitutions may have occurred due to the inherent limitations of voice recognition software. These areas are purely typographical due to imperfections of the software programs and do not reflect any compromise in the patient's medical care. Please read the chart carefully and recognize, using context, where these substitutions have occurred. Plan discussed with: Other Dietary Evaluation Review Comments: 1) Advance to [facility] 75gm + cardiac diet 2) Armen 1 pk BID, MVI w/ minerals 1 tab daily, VitC 500mg BID, Zinc sulfate 220mg BID x 10 days 3) Monitor NPO status, lab values, weight trend, and I/O Expected Outcomes/Goals: To meet >75% estimated needs Wound to improve Fu 2-3 days Date of Service: Jun 13, 2025 Billing Provider: MORGAN KATZ Cardiology Common Codes: 00515-KRIOTNOB CARE 30-74 MIN MORGAN KATZ Jun 13, 2025 13:54
[2025-06-13] MEDS: MEROPENEM 500MG IVPB 50 ML IV SCH (14:05)
[2025-06-13 14:26] LABS: INR 1.28 (0.9-1.15); Partial Thromboplastin Time 32.2 SEC (24.5-34.5); Prothrombin Time 13.2 sec (9.3-11.8)
--- NOTE | 2025-06-13 15:22 | DVHPNRES ---
Progress Note Date Seen: Jun 13, 2025 Resident Creating Document: FABRICIO CALVIN RESIDENT Has the PT tested + for MRSA If YES, has PT been informed?: No Medical Necessity Reason Pt with a Central, PICC or Fol: Yes The following are medically ne: PICC Line Subjective Review of Systems The patient remains intubated and mechanically ventilated for acute hypoxemic respiratory failure secondary to multifactorial causes including ischemic cardiomyopathy (EF 20%), volume overload from ESRD, and septic shock from pneumonia with multidrug-resistant Acinetobacter Overnight, the patient continues to require norepinephrine and vasopressin drips for blood pressure support. Sedated on fentanyl and midazolam infusions for ventilator synchrony. Pupillary reflexes remain intact. Todays WBC increased to 11.3 K, indicating possible infectious exacerbation. Sputum culture grew Acinetobacter baumannii resistant to Zosyn, leading to discontinuation of Zosyn and initiation of meropenem. The patients Hgb dropped from 8.8 ? 8.2 g/dL, platelet count 124 K (low but stable). He remains anuric, with creatinine 3.56 mg/dL and BUN 52 mg/dL. Scheduled for hemodialysis with ultrafiltration today. ABG: pH 7.310 (acidotic), pCO? 52.2 (?), pO? 106.1, HCO? 25.7 ? respiratory acidosis with partial metabolic compensation.?Vent Settings: AC-VC mode, FiO? 35%, TV 450 mL, PEEP 10, RR increased to 14 for CO? clearance. CXR: No new infiltrates; stable bilateral interstitial opacities, left > right, consistent with mild pulmonary congestion and ongoing infection. Lines and tubes in stable position. Cardiology: Re-evaluated pre-operative risk; Revised Cardiac Risk Index = 4 (?10% risk of major cardiac events).? Recommended discontinuation of Plavix for 35 days pre-procedure and resumption within 24 hrs post-tracheostomy if hemostasis achieved.? Continue single antiplatelet therapy (plavix) once surgical team clears; hold dual therapy. Surgery:? Tracheostomy tentatively scheduled for Friday, pending improvement in coagulation parameters (PT 13.2, INR 1.28) and ventilatory stability.? Continue ventilator support, optimize hemodynamics, correct coagulopathy prior to procedure. GI:? PEG tube deferred for now due to guarded prognosis; continue enteral feeds via NG tube (Glucerna 50 mL/hr). Summary:?Critically ill patient with respiratory failure on MV, cardiogenic and septic shock requiring pressors, ESRD on HD, and pneumonia with multidrug- resistant Acinetobacter. Continues full-code status and aggressive management. REVIEW OF SYSTEMS (Limited Intubated) * General: Sedated, intubated, no acute distress under sedation. * Neuro: Pupils reactive, brainstem reflexes intact. * Resp: On MV; coarse breath sounds bilaterally. * Cardiac: Regular rhythm; no new arrhythmias. * GI: On tube feeds; soft abdomen, no distention. * : Anuric; on HD. * Skin: Warm, intact, mild dependent edema. Objective vital signs Vital Sign Date Time Temp Pulse Resp B/P (MAP) Pulse Ox O2 Delivery O2 Flow Rate FiO2 06/13/25 13:40 91 14 110/52 (71) 98 30 06/13/25 12:00 Mechanical Ventilator+ 06/13/25 11:15 98.1 208.6 Total Intake and Output 06/12/25 06/12/25 06/13/25 15:00 23:00 07:00 Intake Total 470.063 ml 171.000 ml 278.500 ml Balance 470.063 ml 171.000 ml 278.500 ml medications Current Medications Medications Dose Ordered Sig/Bandar Route Start Time Stop Time Status Last Admin Dose Admin Acetaminophen 650 mg Q6HP PRN PO 05/04/25 15:00 06/04/25 05:45 650 MG Sodium Chloride 10 ml QSHIFT@10,22 IV 05/19/25 22:00 06/13/25 10:05 10 ML Norepinephrine Bitartrate 32 mg/ Sodium Chloride 250 ml @ 0.938 mls/ hr Q24H IV 05/21/25 01:00 06/13/25 00:53 5.625 MLS/HR Pantoprazole Sodium 40 mg DAILY IV 05/21/25 10:00 06/13/25 10:05 40 MG Artificial Tears 1 drop Q6HP PRN EACHEYE 05/21/25 05:00 06/03/25 21:42 1 DROP Diagnostic Test (Pha) 1 strip Q6HR 05/23/25 00:00 06/13/25 12:04 1 STRIP Insulin Human Regular FOLLOW SLIDING SCALE Q6HR SC 05/23/25 00:00 06/13/25 12:07 2 UNITS Dextrose 50 ml UD IV 05/22/25 22:00 05/24/25 11:36 50 ML Albumin Human 100 ml @ 100 mls/hr PRN PRN IV 05/24/25 06:45 06/11/25 12:33 100 MLS/HR Enteral Nutritional Formula 1,000 ml 50ML/HR GT 05/24/25 17:30 06/09/25 21:30 1,000 ML Folic Acid 1 mg DAILY PO 05/25/25 10:00 06/13/25 10:04 1 MG Multivitamins 1 tab DAILY PO 05/25/25 10:00 06/13/25 10:04 1 TAB Cyanocobalamin 1,000 mcg DAILY PO 05/25/25 10:00 06/13/25 10:04 1,000 MCG Pyridoxine HCl 50 mg DAILY PO 05/25/25 10:00 06/13/25 10:06 50 MG Ondansetron HCl 4 mg Q4HPRN PRN IV 05/25/25 18:00 Amiodarone HCl 200 mg Q12HR GT 05/29/25 10:00 06/13/25 10:04 200 MG Clopidogrel Bisulfate 75 mg DAILY NG 06/02/25 18:30 Cancel Albuterol 1.25 mg Q8HP PRN NEB 06/03/25 14:00 06/13/25 13:40 1.25 MG Acetylcysteine 200 mg Q8HR NEB 06/03/25 14:00 06/13/25 13:40 200 MG Melatonin 5 mg HS PO 06/04/25 22:00 06/09/25 21:27 5 MG Atorvastatin Calcium 40 mg HS PO 06/07/25 22:00 06/12/25 22:31 40 MG Albumin Human 100 ml @ 100 mls/hr ONCE PRN IV 06/09/25 08:45 06/09/25 11:15 100 MLS/HR Epoetin Norm-epbx 10,000 unit MWF@2100 SC 06/10/25 21:00 06/11/25 22:04 10,000 UNIT Midazolam HCl 50 ml @ 1 mls/hr Q24H IV 06/09/25 23:00 06/12/25 16:49 2 MLS/HR Fentanyl Citrate 250 ml @ 2.5 mls/hr Q24H IV 06/09/25 23:00 06/12/25 16:50 7.5 MLS/HR Vancomycin HCl 0 ml @ 0 mls/hr UD IV 06/11/25 08:45 Lactulose 30 ml BID PO 06/12/25 22:00 06/13/25 10:04 30 ML Metoclopramide HCl 5 mg Q8HR IV 06/12/25 22:00 06/13/25 14:06 5 MG Meropenem 50 ml @ 17 mls/hr Q12HR IV 06/13/25 14:00 06/13/25 14:05 17 MLS/HR Examination General: Intubated, sedated, critically ill. HEENT: Pupils equal, reactive; ETT and NG tube in place. Cardiac: HR 91, regular; no murmurs. Lungs: Bilateral coarse crackles, diminished bases. Abdomen: Soft, non-tender, mild distension. Extremities: Trace edema; left BKA stump clean. Neuro: Sedated, moves spontaneously to pain. Skin: Warm, intact. Lines (PICC, dialysis, ) clean/dry/intact. laboratory and microbiology Laboratory Tests 06/13/25 09:50 Test 06/13/25 09:50 Range/Units Serum Glucose 133 H 74-106 mg/dL Microbiology Date/Time Source Procedure Growth Status 06/11/25 12:50 Sputum Gram Stain - Final Complete 06/11/25 12:50 Respiratory Culture - Final Acinetobacter baumanii/haemol Complete 06/11/25 09:40 Blood Blood Culture - Preliminary NO GROWTH AFTER 48 HOURS OF INCUBATION. Resulted 06/11/25 08:30 Nose MRSA Screen - Final Complete 05/20/25 01:02 Urine - [place] Urine Culture - Final Yeast, not Dulce albicans Complete Problem List/Assessment/Plan Problem List/Assessment/Plan Assessment Critical, complex multi-organ failure patient. 1. Severe Sepsis / Pneumonia due to MDR organisms (MDR Acinetobacter baumannii, Stenotrophomonas, Pseudomonas, Enterobacter). On broad antimicrobials ).POA 2. Acute hypoxemic respiratory failure * On mechanical ventilation, FiO? 35%, PEEP 10, due to pneumonia and CHF. 3. 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 Cardiogenic shock secondary to ischemic cardiomyopathy ruled in * On norepinephrine and vasopressin drips, MAP target >65. 5. Atrial fibrillation previously on amiodarone drip; now rate-controlled. 6. Acute on Chronic HFrEF POA 7. PAD with Left foot gangrene s/p BKA and Status post stent placemnet stable surgical site. POA 9. Metabolic encephalopathy POA 10. History of DVT POA prophylaxis complicated by thrombocytopenia. 11. Poor prognosis given multi-organ dysfunction, infections, dialysis- dependence. 12. NSTEMI Type 2 POA ruled in * Secondary to ischemic cardiomyopathy with EF 20%, triple-vessel CAD, anemia, and critical illness. * Managed conservatively due to non-candidacy for CABG/PCI. Ischemic cardiomyopathy with severe LV systolic dysfunction (EF 20%) ruled in * LVEF 20% with anterior/apical wall hypokinesis; requiring vasopressors. Cardiogenic shock ruled in * Increasing norepinephrine requirement; evidence of poor perfusion. 13. Severe dysphagia with aspiration risk POA ruled in * PEG and tracheostomy planned for long-term support. 14. Anemia of chronic disease (CKD-related, status post-PRBC transfusion) ruled in * Stable Hgb 9.3. POA 8. Thrombocytopenia (improving) ruled in * , improving trend. 9. Type 2 diabetes mellitus, controlled POA ruled in. 10. Dyslipidemia and obesity POA chronic, continue management. Plan [facility] Respiratory * Continue mechanical ventilation (AC-VC): FiO? 35%, RR 14, PEEP 10. * Maintain SpO? > 92%. * Bronchodilator therapy: Albuterol neb Q8H PRN. * Pulmonology consult to continue management; monitor for tracheostomy readiness. * CXR daily; ABG Q12H. Infectious Disease * Meropenem IV 1 g Q8H for MDR Acinetobacter (primary coverage). * Vancomycin IV for possible Gram-positive coverage (monitor troughs). * Discontinue Zosyn (resistant). * Continue Azithromycin for atypical coverage pending cultures. * Monitor WBC, fever, and cultures daily. Cardiac * Continue Norepinephrine and Vasopressin infusions, titrate to MAP ? 65. * As to be held per surgical recommendation for trach prep (Plavix discontinued). * Atorvastatin 40 mg nightly to continue. * Daily ECG and troponin trending. * Monitor for arrhythmia (on amiodarone 200 mg daily). * Correct coagulopathy with vitamin K and FFP if INR >1.5 before trach. Renal * Hemodialysis with ultrafiltration today. * Strict I/O, daily weights. * Avoid nephrotoxins. * Albumin 25% IV pre-dialysis as tolerated. GI / Nutrition * Continue enteral feeding via NG tube (Glucerna 50 mL/hr). * PEG deferred per GI. * Lactulose 30 mL BID for bowel regimen. * Pantoprazole 40 mg IV daily for GI prophylaxis. Hematology / Coagulation * Monitor CBC, PT/INR, PTT daily. * Transfuse PRBC if Hgb <7 g/dL or symptomatic. * Hold Plavix for 5 days pre-tracheostomy; resume 24 hr post-procedure if stable. * No pharmacologic DVT prophylaxis; continue SCDs. Endocrine / Metabolic * Insulin sliding scale; maintain BG 946152 mg/dL. * Monitor electrolytes and replete as needed. Sedation / Analgesia * Continue fentanyl and midazolam infusions. * RASS goal -2 to -3. Prophylaxis * DVT: SCDs only (no heparin due to thrombocytopenia). * GI: Pantoprazole daily. * Skin: Turn q2h, offload pressure points. * CLABSI bundle: Daily line check. Palliative Care * Discuss hospice option with patient/family. * Social work and palliative consult placed. Case discussed in detail with the attending physician, including the clinical presentation, diagnostic workup, and comprehensive management plan. The duration of time spent in direct critical care management of this patient, including evaluation, review of clinical data, coordination of care, and decision-making, was 45 minutes. Plan discussed with: Other (RN) My Orders My Orders Orders - FABRICIO CALVIN RESIDENT Procedure Category Date Status Time Creatinine LAB 06/14/25 Verified 04:00 Vancomycin,Random LAB 06/14/25 Verified 04:00 Electrocardigram EKG 06/13/25 Logged 10:21 Meropenem 500mg Ivpb PHA 06/13/25 In Process (Merrem 500mg/50ml 14:00 Complete Blood Count LAB 06/14/25 Verified 04:00 Comprehensive LAB 06/14/25 Verified Metabolic Panel 04:00 Magnesium LAB 06/14/25 Verified 04:00 Abg W/ Co-Ox RT 06/14/25 Logged 04:00 Chest Xray 1 View XY 06/14/25 Logged 04:00 Dietary Evaluation Review Comments: 1) Advance to [facility] 75gm + cardiac diet 2) Armen 1 pk BID, MVI w/ minerals 1 tab daily, VitC 500mg BID, Zinc sulfate 220mg BID x 10 days 3) Monitor NPO status, lab values, weight trend, and I/O Expected Outcomes/Goals: To meet >75% estimated needs Wound to improve Fu 2-3 days Date of Service: Jun 13, 2025 Billing Provider: LAUREN MA MD Common Visit Codes: [id number] CARE 30-74 MIN FABRICIO CALVIN RESIDENT Jun 13, 2025 15:22 LAUREN MA MD Jun 13, 2025 18:30
--- NOTE | 2025-06-13 16:13 | DVHPN2 ---
Reviewed: Care Plan, H&P, Labs, Medications, Previous Orders Changes from previous H/P or p: No Changes General: Per HPI Objective Vitals Vital Signs Date Time Temp Pulse Resp B/P (MAP) Pulse Ox O2 Delivery O2 Flow Rate FiO2 06/13/25 15:37 98 12 92/44 (60) 95 40 06/13/25 12:00 Mechanical Ventilator+ 06/13/25 11:15 98.1 208.6 Intake/Output Intake and Output 06/13/25 06:59 Intake Total 906.126 ml Balance 906.126 ml IV Total 761.126 ml Tube Feeding 145 ml General Appearance: Other (Intubated, on vent.) HEENT: Atraumatic, PERRLA Lungs: Clear to auscultation, Other (On vent; transmitted breath sounds bilaterally. Decreased air entry bilaterally. No wheezing or rhonchi. Bibasilar crackles.) Cardiovascular: Normal S1, Normal S2, Other (Atrial fibrillation) Abdomen: Normal bowel sounds, Soft, No tenderness, No hepatospenomegaly Genitourinary: No Apparent Abnormalities (Leung catheter) Musculoskeletal: Other Extremities: Normal pulses, Other (Left BKA stump intact, trace edema ) Neuro: Other (Sedated.) Skin: Wounds (See nurse notes and pictures) Medications Current Medications Medications Dose Ordered Sig/Bandar Route Start Time Stop Time Status Last Admin Dose Admin Acetaminophen 650 mg Q6HP PRN PO 05/04/25 15:00 06/04/25 05:45 650 MG Sodium Chloride 10 ml QSHIFT@10,22 IV 05/19/25 22:00 06/13/25 10:05 10 ML Norepinephrine Bitartrate 32 mg/ Sodium Chloride 250 ml @ 0.938 mls/ hr Q24H IV 05/21/25 01:00 06/13/25 00:53 5.625 MLS/HR Pantoprazole Sodium 40 mg DAILY IV 05/21/25 10:00 06/13/25 10:05 40 MG Artificial Tears 1 drop Q6HP PRN EACHEYE 05/21/25 05:00 06/03/25 21:42 1 DROP Diagnostic Test (Pha) 1 strip Q6HR 05/23/25 00:00 06/13/25 12:04 1 STRIP Insulin Human Regular FOLLOW SLIDING SCALE Q6HR SC 05/23/25 00:00 06/13/25 12:07 2 UNITS Dextrose 50 ml UD IV 05/22/25 22:00 05/24/25 11:36 50 ML Albumin Human 100 ml @ 100 mls/hr PRN PRN IV 05/24/25 06:45 06/11/25 12:33 100 MLS/HR Enteral Nutritional Formula 1,000 ml 50ML/HR GT 05/24/25 17:30 06/09/25 21:30 1,000 ML Folic Acid 1 mg DAILY PO 05/25/25 10:00 06/13/25 10:04 1 MG Multivitamins 1 tab DAILY PO 05/25/25 10:00 06/13/25 10:04 1 TAB Cyanocobalamin 1,000 mcg DAILY PO 05/25/25 10:00 06/13/25 10:04 1,000 MCG Pyridoxine HCl 50 mg DAILY PO 05/25/25 10:00 06/13/25 10:06 50 MG Ondansetron HCl 4 mg Q4HPRN PRN IV 05/25/25 18:00 Amiodarone HCl 200 mg Q12HR GT 05/29/25 10:00 06/13/25 10:04 200 MG Clopidogrel Bisulfate 75 mg DAILY NG 06/02/25 18:30 Cancel Albuterol 1.25 mg Q8HP PRN NEB 06/03/25 14:00 06/13/25 13:40 1.25 MG Acetylcysteine 200 mg Q8HR NEB 06/03/25 14:00 06/13/25 13:40 200 MG Melatonin 5 mg HS PO 06/04/25 22:00 06/09/25 21:27 5 MG Atorvastatin Calcium 40 mg HS PO 06/07/25 22:00 06/12/25 22:31 40 MG Albumin Human 100 ml @ 100 mls/hr ONCE PRN IV 06/09/25 08:45 06/09/25 11:15 100 MLS/HR Epoetin Norm-epbx 10,000 unit MWF@2100 SC 06/10/25 21:00 06/11/25 22:04 10,000 UNIT Midazolam HCl 50 ml @ 1 mls/hr Q24H IV 06/09/25 23:00 06/12/25 16:49 2 MLS/HR Fentanyl Citrate 250 ml @ 2.5 mls/hr Q24H IV 06/09/25 23:00 06/12/25 16:50 7.5 MLS/HR Vancomycin HCl 0 ml @ 0 mls/hr UD IV 06/11/25 08:45 Lactulose 30 ml BID PO 06/12/25 22:00 06/13/25 10:04 30 ML Metoclopramide HCl 5 mg Q8HR IV 06/12/25 22:00 06/13/25 14:06 5 MG Meropenem 50 ml @ 17 mls/hr Q12HR IV 06/13/25 14:00 06/13/25 14:05 17 MLS/HR Laboratory Results Laboratory Tests 06/13/25 09:50 Chemistry Test 06/13/25 09:50 Albumin 3.5 g/dL (3.2-4.8) Calcium Level 9.2 mg/dL (8.7-10.4) Magnesium Level 2.2 mg/dL (1.6-2.6) Total Protein 5.7 g/dL (5.7-8.2) Coagulation Test 06/13/25 13:45 Prothrombin Time 13.2 sec (9.3-11.8) H Prothrombin Time INR 1.28 (0.9-1.15) H Activated Partial Thromboplast Time 32.2 SEC (24.5-34.5) LFT Test 06/13/25 09:50 Alanine Aminotransferase (ALT) 22 U/L (7-40) Alkaline Phosphatase 110 U/L (46-116) Aspartate Amino Transferase (AST) 28 U/L (13-40) Total Bilirubin 1.0 mg/dL (0.2-1.0) Urinalysis Test 05/16/25 15:18 05/20/25 01:02 Urine Hyaline Casts Few /lpf (0 - 2) Urine Mucus Few (None Seen) Urine Yeast (Budding) Many /hpf (None Seen) Urine Osmolality 359 mOsm/kg Urine Creatinine 122.44 mg/dL (30.0-125.0) Urine Protein/Creatinine Ratio 1.06 Urine Sodium 17 mmol/L (40-220) L Urine Total Protein 130.0 mg/dL (1-14) H Urine Color Dark yellow (Yellow) Urine Clarity Ex.turbid (Clear) Urine pH 5.5 (5.0-9.0) Urine Specific Mcrae 1.013 (1.001-1.035) Urine Protein 1+ (Negative) H Urine Ketones Negative (Negative) Urine Blood 1+ /uL (Negative) H Urine Nitrite Negative (Negative) Urine Bilirubin Negative (Negative) Urine Urobilinogen Normal mg/dL (Negative) Urine Leukocyte Esterase 3+ /uL (Negative) Urine RBC 62 /hpf (0 - 3) Urine WBC Clumps Present /hpf (None Seen) Urine Microscopic WBC 2744 /HPF (0-3) H Urine Squamous Epithelial Cells None seen /hpf (<5) Urine Bacteria None seen /hpf (None Seen) Urine Glucose Normal mg/dL (Normal) Blood Gas Results Test 06/13/25 07:11 Arterial Blood pH 7.310 (7.350-7.450) FiO2 % 35.0 Microbiology Microbiology Date/Time Source Procedure Growth Status 06/11/25 12:50 Sputum Gram Stain - Final Complete 06/11/25 12:50 Respiratory Culture - Final Acinetobacter baumanii/haemol Complete 06/11/25 09:40 Blood Blood Culture - Preliminary NO GROWTH AFTER 48 HOURS OF INCUBATION. Resulted 06/11/25 08:30 Nose MRSA Screen - Final Complete 05/20/25 01:02 Urine - [place] Urine Culture - Final Yeast, not Dulce albicans Complete Labs and/or images reviewed: Labs reviewed by me, Image(s) reviewed by me Assessment/Plan Assessment/Plan Critical, complex multi-organ failure patient. 1. Severe Sepsis / Pneumonia due to MDR organisms (Stenotrophomonas, Pseudomonas, Enterobacter). On broad antimicrobials (Ciprofloxacin, TMP-SMX, Micafungin).POA 3. 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 Volume overload / Edema due to oligoanuria and CHF POA 5. Atrial fibrillation previously on amiodarone drip; now rate-controlled. 6. Acute on Chronic HFrEF 7. PAD with Left foot gangrene s/p BKA stable surgical site. POA 9. Metabolic encephalopathy improving; patient follows commands. 10. History of DVT prophylaxis complicated by thrombocytopenia. 11. Poor prognosis given multi-organ dysfunction, infections, dialysis- dependence. . NSTEMI Type 2 ruled in * Secondary to ischemic cardiomyopathy with EF 20%, triple-vessel CAD, anemia, and critical illness. * Managed conservatively due to non-candidacy for CABG/PCI. Ischemic cardiomyopathy with severe LV systolic dysfunction (EF 20%) ruled in * LVEF 20% with anterior/apical wall hypokinesis; requiring vasopressors. Cardiogenic shock ruled in * Increasing norepinephrine requirement; evidence of poor perfusion. 4. Acute hypoxemic respiratory failure ruled in * Mechanically ventilated, FiO? adjusted for SpO? > 92%. 5. AD on CKD Stage 3 on ESRD (intrarenal ischemic ATN) * Anuric, BUN/Cr 26/2.94, on scheduled HD. 6. Severe dysphagia with aspiration risk ruled in * PEG and tracheostomy planned for long-term support. 7. Anemia of chronic disease (CKD-related, status post-PRBC transfusion) ruled in * Stable Hgb 9.3. 8. Thrombocytopenia (improving) ruled in * Platelets 132 K, improving trend. 9. Type 2 diabetes mellitus, controlled ruled in. 10. PAD s/p [employer] and left BKA chronic, stable. 11. Dyslipidemia and obesity chronic, continue management. remains intubated. continue with vent weaning daily Plan discussed with: Other ([facility] staff) My Orders Orders - FLORENTIN BAJWA DO Procedure Category Date Status Time Lactulose Oral PHA 06/12/25 In Process 22:00 Metoclopramide PHA 06/12/25 In Process Injection (Reglan 22:00 Chest Portable XY 06/13/25 Resulted 04:00 Date of Service: Jun 12, 2025 Billing Provider: FLORENTIN BAJWA DO Common Visit Codes: [id number] CARE 30-74 MIN FLORENTIN BAJWA DO Jun 13, 2025 16:13
[2025-06-13] MEDS: SODIUM CHL 0.9% 1000 ML BAG XX ONE (17:51)
--- NOTE | 2025-06-13 18:22 | DVHPN2 ---
Progress Note - Dictate Date Seen: Jun 13, 2025 Has the PT tested + for MRSA If YES, has PT been informed?: No Medical Necessity Reason Pt with a Central, PICC or Fol: Yes The following are medically ne: PICC Line vital signs Vital Sign Date Time Temp Pulse Resp B/P (MAP) Pulse Ox O2 Delivery O2 Flow Rate FiO2 06/13/25 18:00 109 06/13/25 18:00 35 06/13/25 18:00 12 100 Mechanical Ventilator+ 06/13/25 18:00 112/51 (71) 06/13/25 11:15 98.1 208.6 Total Intake and Output 06/12/25 06/12/25 06/13/25 15:00 23:00 07:00 Intake Total 470.063 ml 171.000 ml 278.500 ml Balance 470.063 ml 171.000 ml 278.500 ml medications Current Medications Medications Dose Ordered Sig/Bandar Route Start Time Stop Time Status Last Admin Dose Admin Acetaminophen 650 mg Q6HP PRN PO 05/04/25 15:00 06/04/25 05:45 650 MG Sodium Chloride 10 ml QSHIFT@10,22 IV 05/19/25 22:00 06/13/25 10:05 10 ML Norepinephrine Bitartrate 32 mg/ Sodium Chloride 250 ml @ 0.938 mls/ hr Q24H IV 05/21/25 01:00 06/13/25 00:53 5.625 MLS/HR Pantoprazole Sodium 40 mg DAILY IV 05/21/25 10:00 06/13/25 10:05 40 MG Artificial Tears 1 drop Q6HP PRN EACHEYE 05/21/25 05:00 06/03/25 21:42 1 DROP Diagnostic Test (Pha) 1 strip Q6HR 05/23/25 00:00 06/13/25 17:03 1 STRIP Insulin Human Regular FOLLOW SLIDING SCALE Q6HR SC 05/23/25 00:00 06/13/25 12:07 2 UNITS Dextrose 50 ml UD IV 05/22/25 22:00 05/24/25 11:36 50 ML Albumin Human 100 ml @ 100 mls/hr PRN PRN IV 05/24/25 06:45 06/11/25 12:33 100 MLS/HR Enteral Nutritional Formula 1,000 ml 50ML/HR GT 05/24/25 17:30 10/2/25 21:30 1,000 ML Folic Acid 1 mg DAILY PO 05/25/25 10:00 06/13/25 10:04 1 MG Multivitamins 1 tab DAILY PO 05/25/25 10:00 06/13/25 10:04 1 TAB Cyanocobalamin 1,000 mcg DAILY PO 05/25/25 10:00 06/13/25 10:04 1,000 MCG Pyridoxine HCl 50 mg DAILY PO 05/25/25 10:00 06/13/25 10:06 50 MG Ondansetron HCl 4 mg Q4HPRN PRN IV 05/25/25 18:00 Amiodarone HCl 200 mg Q12HR GT 05/29/25 10:00 06/13/25 10:04 200 MG Clopidogrel Bisulfate 75 mg DAILY NG 06/02/25 18:30 Cancel Albuterol 1.25 mg Q8HP PRN NEB 06/03/25 14:00 06/13/25 13:40 1.25 MG Acetylcysteine 200 mg Q8HR NEB 06/03/25 14:00 06/13/25 13:40 200 MG Melatonin 5 mg HS PO 06/04/25 22:00 06/09/25 21:27 5 MG Atorvastatin Calcium 40 mg HS PO 06/07/25 22:00 06/12/25 22:31 40 MG Albumin Human 100 ml @ 100 mls/hr ONCE PRN IV 06/09/25 08:45 06/09/25 11:15 100 MLS/HR Epoetin Norm-epbx 10,000 unit MWF@2100 KS 06/10/25 21:00 06/11/25 22:04 10,000 UNIT Midazolam HCl 50 ml @ 1 mls/hr Q24H IV 06/09/25 23:00 06/12/25 16:49 2 MLS/HR Fentanyl Citrate 250 ml @ 2.5 mls/hr Q24H IV 06/09/25 23:00 06/12/25 16:50 7.5 MLS/HR Vancomycin HCl 0 ml @ 0 mls/hr UD IV 06/11/25 08:45 Lactulose 30 ml BID PO 06/12/25 22:00 06/13/25 10:04 30 ML Metoclopramide HCl 5 mg Q8HR IV 06/12/25 22:00 06/13/25 14:06 5 MG Meropenem 50 ml @ 17 mls/hr Q12HR IV 06/13/25 14:00 06/13/25 14:05 17 MLS/HR laboratory and microbiology Laboratory Tests 06/13/25 09:50 Test 06/13/25 09:50 Range/Units Serum Glucose 133 H 74-106 mg/dL Assessment/Plan Impression Acute hypoxemic respiratory failure Atelectasis Fluid overload Pleural effusions Patient seen and examined in the ICU Events on the ventilator s/p reintubation ac volume control peep 7 fi02 50% abg: reviewed CXR reviewed Management plan Vent support Titrate to maintain sats 90% or above Sedation for vent synchrony Continue antibiotics F/u cultures consider bronchoscopy Bronchodilators diurese/HD Monitor renal function Monitor electrolytes Supplement as needed Pressors as needed for hemodynamic support To maintain a mean arterial pressure of 65 mmHg full code may need trache and peg Critical care time 35 minutes Dietary Evaluation Review Comments: 1) Advance to [facility] 75gm + cardiac diet 2) Armen 1 pk BID, MVI w/ minerals 1 tab daily, VitC 500mg BID, Zinc sulfate 220mg BID x 10 days 3) Monitor NPO status, lab values, weight trend, and I/O Expected Outcomes/Goals: To meet >75% estimated needs Wound to improve Fu 2-3 days Plan discussed with: Other (Rn) DELROY REDD MD Jun 13, 2025 18:22
[2025-06-13] MEDS ORDERED: METOCLOPRAMIDE HCL 5MG/ml INJ 2ml VIAL IV ONE (20:45)
[2025-06-14] VITALS (109 sets, daily range): BP systolic 88–144; BP diastolic 31–61; PULSE 75–103; RESP 11–15; TEMP 97.9–99.4; O2SAT 95–100
--- NOTE | 2025-06-14 03:49 | DVH ---
CHEST RADIOGRAPH Indication: Acute hypoxic respiratory failure Technique: 1 view Comparison: XY CHEST PORTABLE on DOS: 06/13/25, XY CHEST XRAY 1 VIEW on DOS: 06/12/25, XY CHEST XRAY 1 VIEW on DOS: 06/11/25, XY CHEST PORTABLE on DOS: 06/10/25, XY CHEST PORTABLE on DOS: 06/09/25 FINDINGS: Patient is rotated. Lines and Tubes: Unchanged. Lungs/Pleura: Differences in lung attenuation likely attributable positioning. Cardiomediastinum: Unchanged. Other: Unchanged osseous structures. IMPRESSION: No significant change from the previous study accounting for differences in positioning, with patient rotation on the current exam. Support devices are stable. Bilateral perihilar mixed opacities most p rominent in the lung bases. Small pleural effusions.
[2025-06-14 04:21] LABS: Alanine Aminotransferase 15 U/L (7-40); Albumin 3.4 g/dL (3.2-4.8); Alkaline Phosphatase 104 U/L (46-116); Anion Gap 14 (5-15); BUN/Creatinine Ratio 8.4 (10.0-20.0); Bilirubin, Total 1.1 mg/dL (0.2-1.0); Blood Urea Nitrogen 19 mg/dL (9-23); Calcium 9.0 mg/dL (8.7-10.4); Carbon Dioxide 28 mmol/L (20-31); Chloride 99 mmol/L (98-107); Magnesium 2.3 mg/dL (1.6-2.6); Potassium 3.9 mmol/L (3.5-5.1); Sodium 141 mmol/L (136-145); Total Protein 5.8 g/dL (5.7-8.2)
[2025-06-14 04:34] LABS: Glucose 118 mg/dL (74-106)
[2025-06-14 06:27] LABS: Hematocrit 24.2 % (41.0-53.0); Hemoglobin 7.8 g/dL (13.5-17.5); Mean Corpuscular Hemoglobin 35.2 pg (28.0-32.0); Mean Corpuscular Volume 109.8 fL (80.0-100.0); Nucleated Red Blood Cells % 0.2 %
[2025-06-14 07:34] LABS: Anisocytosis Moderate; Macrocytosis Moderate
[2025-06-14 07:39] LABS: Base Excess 3.3 mmol/L (-2.0-3.0)
--- NOTE | 2025-06-14 09:36 | DVH ---
Date: 06/14/2025 08:15 AM Examination: XY KUB ABDOMEN SINGLE VIEW History: bowel obs Comparison: XY KUB ABDOMEN SINGLE VIEW on DOS: 05/25/25, US ABDOMEN LIMITED on DOS: 05/24/25, US KIDNEY on DOS: 05/16/25, US KIDNEY RETROPERITONEUM on DOS: 03/22/25, US KIDNEY on DOS: 02/23/25 TECHNIQUE: Frontal views of the abdomen was obtained. FINDINGS: NG tube in stomach No acute osseous abnormality identified. IMPRESSION: Paucity of air within the small bowel loops. Nonspecific bowel-gas pattern.
--- NOTE | 2025-06-14 11:19 | DVHPN2 ---
Progress Note Date Seen: Jun 14, 2025 Has the PT tested + for MRSA If YES, has PT been informed?: No Medical Necessity Reason Pt with a Central, PICC or Fol: Yes The following are medically ne: PICC Line Subjective Review of Systems: RESPIRATORY:Abnormal Other Systems: Patient seen and examined by myself today in follow-up, patient remained intubated on ventilator Objective vital signs Vital Sign Date Time Temp Pulse Resp B/P (MAP) Pulse Ox O2 Delivery O2 Flow Rate FiO2 06/14/25 10:30 78 12 104/45 (64) 98 06/14/25 10:02 35 06/14/25 10:00 Mechanical Ventilator+ 06/14/25 08:00 98.2 98.2 Total Intake and Output 06/13/25 06/13/25 06/14/25 15:00 23:00 07:00 Intake Total 162.000 ml 573.847 ml 144.51 ml Output Total 1000 ml Balance 162.000 ml 573.847 ml -855.49 ml medications Current Medications Medications Dose Ordered Sig/Bandar Route Start Time Stop Time Status Last Admin Dose Admin Acetaminophen 650 mg Q6HP PRN PO 05/04/25 15:00 06/04/25 05:45 650 MG Sodium Chloride 10 ml QSHIFT@10,22 IV 05/19/25 22:00 06/13/25 20:58 10 ML Norepinephrine Bitartrate 32 mg/ Sodium Chloride 250 ml @ 0.938 mls/ hr Q24H IV 05/21/25 01:00 06/14/25 05:32 4.688 MLS/HR Pantoprazole Sodium 40 mg DAILY IV 05/21/25 10:00 06/13/25 10:05 40 MG Artificial Tears 1 drop Q6HP PRN EACHEYE 05/21/25 05:00 06/03/25 21:42 1 DROP Diagnostic Test (Pha) 1 strip Q6HR 05/23/25 00:00 06/14/25 05:41 1 STRIP Insulin Human Regular FOLLOW SLIDING SCALE Q6HR SC 05/23/25 00:00 06/14/25 00:38 2 UNITS Dextrose 50 ml UD IV 05/22/25 22:00 05/24/25 11:36 50 ML Albumin Human 100 ml @ 100 mls/hr PRN PRN IV 05/24/25 06:45 06/11/25 12:33 100 MLS/HR Enteral Nutritional Formula 1,000 ml 50ML/HR GT 05/24/25 17:30 06/09/25 21:30 1,000 ML Folic Acid 1 mg DAILY PO 05/25/25 10:00 06/13/25 10:04 1 MG Multivitamins 1 tab DAILY PO 05/25/25 10:00 06/13/25 10:04 1 TAB Cyanocobalamin 1,000 mcg DAILY PO 05/25/25 10:00 06/13/25 10:04 1,000 MCG Pyridoxine HCl 50 mg DAILY PO 05/25/25 10:00 06/13/25 10:06 50 MG Ondansetron HCl 4 mg Q4HPRN PRN IV 05/25/25 18:00 Amiodarone HCl 200 mg Q12HR GT 05/29/25 10:00 06/13/25 21:00 200 MG Clopidogrel Bisulfate 75 mg DAILY NG 06/02/25 18:30 Cancel Albuterol 1.25 mg Q8HP PRN NEB 06/03/25 14:00 06/14/25 06:04 1.25 MG Acetylcysteine 200 mg Q8HR NEB 06/03/25 14:00 06/14/25 06:04 200 MG Melatonin 5 mg HS PO 06/04/25 22:00 06/09/25 21:27 5 MG Atorvastatin Calcium 40 mg HS PO 06/07/25 22:00 06/13/25 21:00 40 MG Albumin Human 100 ml @ 100 mls/hr ONCE PRN IV 06/09/25 08:45 06/09/25 11:15 100 MLS/HR Epoetin Norm-epbx 10,000 unit MWF@2100 SC 06/10/25 21:00 06/13/25 20:57 10,000 UNIT Midazolam HCl 50 ml @ 1 mls/hr Q24H IV 06/09/25 23:00 06/14/25 05:32 2 MLS/HR Fentanyl Citrate 250 ml @ 2.5 mls/hr Q24H IV 06/09/25 23:00 06/14/25 00:40 7.5 MLS/HR Vancomycin HCl 0 ml @ 0 mls/hr UD IV 06/11/25 08:45 Lactulose 30 ml BID PO 06/12/25 22:00 06/13/25 21:00 30 ML Metoclopramide HCl 5 mg Q8HR IV 06/12/25 22:00 06/14/25 05:32 5 MG Meropenem 50 ml @ 17 mls/hr Q12HR IV 06/13/25 14:00 06/13/25 21:01 17 MLS/HR Examination: LUNGS:Normal, CVS:Normal, MSK:Normal laboratory and microbiology Laboratory Tests 06/14/25 05:55 06/14/25 03:29 Test 06/14/25 03:29 Range/Units Serum Glucose 118 H 74-106 mg/dL Microbiology Date/Time Source Procedure Growth Status 06/11/25 12:50 Sputum Gram Stain - Final Complete 06/11/25 12:50 Respiratory Culture - Final Acinetobacter baumanii/haemol Complete 06/11/25 09:40 Blood Blood Culture - Preliminary NO GROWTH AFTER 72 HOURS OF INCUBATION. Resulted 06/11/25 08:30 Nose MRSA Screen - Final Complete 05/20/25 01:02 Urine - [place]ung [place] Urine Culture - Final Yeast, not Dulce albicans Complete Problem List/Assessment/Plan Problem List/Assessment/Plan Acute kidney injury superimposed Chronic Kidney Disease stage IV secondary hemodynamic mediated, FeNa < 1% requiring intermittent hemodialysis Chronic kidney disease stage IV followed by Dr. Ponce Gangrene left foot, status post left below-knee amputation 05/20 Left lower extremity DVT Diabetes mellitus type 2 Chronic diastolic Congestive heart failure NSTEMI Hyponatremia due to excess H2O Dropping hemoglobin Anemia due to blood loss Metabolic acidosis Septic shock History of testicular cancer Cellulitis lower extremity Recommendations Hemodialysis tomorrow Epogen 22104 subQ 3 times weekly Albumin 25% p.r.n. hemodialysis Strict I&Os kidney ultrasound reported bilateral small echogenic kidneys, no obstruction Fluid restrictions IV pressors for blood pressure support Packed red blood cell transfusion p.r.n. Noted plan for trach and PEG tube We will continue to follow up Total care time 36 minute Plan discussed with: Other (Nurse) My Orders My Orders Orders - QUOC QUINONEZ MD Procedure Category Date Status Time Hemodialysis Orders ORDERS 06/13/25 Transmitted 11:24 Dietary Evaluation Review Comments: 1) [facility] 2) Armen 1 pk BID, MVI w/ minerals 1 tab daily, VitC 500mg BID, Zinc sulfate 220mg BID x 10 days 3) Monitor NPO status, lab values, weight trend, and I/O Expected Outcomes/Goals: To meet >75% estimated needs Wound to improve Fu 2-3 days QUOC QUINONEZ MD Jun 14, 2025 11:19
[2025-06-14] MEDS: ALBUMIN 25% 100 ML IV ONE (12:45)
[2025-06-14] MEDS: LACTULOSE 20Gm/30ML SOLN PO SCH (12:46)
--- NOTE | 2025-06-14 13:25 | PRN ---
Misceleneous Note Note Note Called son Reinaldo for consent for trach and peg, explained to him about alternatives and risk. he agrees with both. LAUREN MA MD Jun 14, 2025 13:25
--- NOTE | 2025-06-14 13:58 | DVHPNRES ---
Progress Note Date Seen: Jun 14, 2025 Resident Creating Document: FABRICIO CALVIN RESIDENT Has the PT tested + for MRSA If YES, has PT been informed?: No Medical Necessity Reason Pt with a Central, PICC or Fol: Yes The following are medically ne: PICC Line Subjective Review of Systems The patient remains intubated and mechanically ventilated for acute hypoxic respiratory failure secondary to ischemic cardiomyopathy (EF 20%), multilobar pneumonia, and volume overload from ESRD. He continues on fentanyl and midazolam infusions for sedation and ventilator synchrony and norepinephrine for hemodynamic support. Over the past 24 hours, the patients hemodynamics have remained borderline but stable (BP 104/45 mmHg, HR 80 bpm). He continues to be anuric, with hemodialysis scheduled for tomorrow. Albumin 25% IV was administered once today for volume support. The patient has had no bowel movements since June 10, despite being on lactulose 30 mL BID and metoclopramide 5 mg IV q8h. Gastric residuals are high (~1000 mL), and KUB ultrasound revealed paucity of air in small bowel loops, Tube feeds have been held. Laboratory findings: * WBC: 9.3 ? (from 11.3) * Hgb: 7.8 ? (from 8.2) * Plt: 62 K ? (from 124 K) * CMP: unremarkable (BUN 19, Cr 2.26) * ABG: pH 7.40, pCO 42, pO 100, HCO 27.8 compensated * Cortisol AM: 20.5 g/dL (adequate adrenal function) * PT/INR: stable * CXR: Stable bilateral perihilar and bibasilar opacities with small pleural effusions; no new consolidation; support lines unchanged. * POCUS: Enlarged inferior vena cava consistent with elevated right-sided filling pressures. Procedural Planning: * Tracheostomy and PEG placement scheduled for tomorrow. * Plavix discontinued yesterday per cardiology/surgery recommendations; INR stable. * Patients son informed and consent obtained for both procedures. * General: Sedated, ventilated, critically ill. * Neuro: Pupillary reflexes intact, no focal deficit. * Cardiac: Stable rhythm, on low-dose vasopressor. * Resp: Ventilator-dependent, coarse breath sounds. * GI: Abdominal distension, no BM since 06/10, gastric residuals high. * : Anuric; HD scheduled. * Skin: Intact, mild edema. Objective vital signs Vital Sign Date Time Temp Pulse Resp B/P (MAP) Pulse Ox O2 Delivery O2 Flow Rate FiO2 06/14/25 11:37 78 12 104/45 (64) 98 35 06/14/25 10:00 Mechanical Ventilator+ 06/14/25 08:00 98.2 98.2 Total Intake and Output 06/13/25 06/13/25 06/14/25 15:00 23:00 07:00 Intake Total 162.000 ml 573.847 ml 144.51 ml Output Total 1000 ml Balance 162.000 ml 573.847 ml -855.49 ml medications Current Medications Medications Dose Ordered Sig/Bandar Route Start Time Stop Time Status Last Admin Dose Admin Acetaminophen 650 mg Q6HP PRN PO 05/04/25 15:00 06/04/25 05:45 650 MG Sodium Chloride 10 ml QSHIFT@10,22 IV 05/19/25 22:00 06/14/25 12:47 10 ML Norepinephrine Bitartrate 32 mg/ Sodium Chloride 250 ml @ 0.938 mls/ hr Q24H IV 05/21/25 01:00 06/14/25 05:32 4.688 MLS/HR Pantoprazole Sodium 40 mg DAILY IV 05/21/25 10:00 06/14/25 12:45 40 MG Artificial Tears 1 drop Q6HP PRN EACHEYE 05/21/25 05:00 06/03/25 21:42 1 DROP Diagnostic Test (Pha) 1 strip Q6HR 05/23/25 00:00 06/14/25 12:46 1 STRIP Insulin Human Regular FOLLOW SLIDING SCALE Q6HR SC 05/23/25 00:00 06/14/25 13:21 2 UNITS Dextrose 50 ml UD IV 05/22/25 22:00 05/24/25 11:36 50 ML Albumin Human 100 ml @ 100 mls/hr PRN PRN IV 05/24/25 06:45 06/11/25 12:33 100 MLS/HR Enteral Nutritional Formula 1,000 ml 50ML/HR GT 05/24/25 17:30 06/09/25 21:30 1,000 ML Folic Acid 1 mg DAILY PO 05/25/25 10:00 06/14/25 12:47 1 MG Multivitamins 1 tab DAILY PO 05/25/25 10:00 06/14/25 12:47 1 TAB Cyanocobalamin 1,000 mcg DAILY PO 05/25/25 10:00 06/14/25 12:47 1,000 MCG Pyridoxine HCl 50 mg DAILY PO 05/25/25 10:00 06/14/25 12:46 50 MG Ondansetron HCl 4 mg Q4HPRN PRN IV 05/25/25 18:00 Amiodarone HCl 200 mg Q12HR GT 05/29/25 10:00 06/14/25 12:47 200 MG Clopidogrel Bisulfate 75 mg DAILY NG 06/02/25 18:30 Cancel Albuterol 1.25 mg Q8HP PRN NEB 06/03/25 14:00 06/14/25 06:04 1.25 MG Acetylcysteine 200 mg Q8HR NEB 06/03/25 14:00 06/14/25 06:04 200 MG Melatonin 5 mg HS PO 06/04/25 22:00 06/09/25 21:27 5 MG Atorvastatin Calcium 40 mg HS PO 06/07/25 22:00 06/13/25 21:00 40 MG Albumin Human 100 ml @ 100 mls/hr ONCE PRN IV 06/09/25 08:45 06/09/25 11:15 100 MLS/HR Epoetin Norm-epbx 10,000 unit MWF@2100 SC 06/10/25 21:00 Hold 06/13/25 20:57 10,000 UNIT Midazolam HCl 50 ml @ 1 mls/hr Q24H IV 06/09/25 23:00 06/14/25 05:32 2 MLS/HR Fentanyl Citrate 250 ml @ 2.5 mls/hr Q24H IV 06/09/25 23:00 06/14/25 00:40 7.5 MLS/HR Vancomycin HCl 0 ml @ 0 mls/hr UD IV 06/11/25 08:45 Metoclopramide HCl 5 mg Q8HR IV 06/12/25 22:00 06/14/25 05:32 5 MG Meropenem 50 ml @ 17 mls/hr Q12HR IV 06/13/25 14:00 06/14/25 12:48 17 MLS/HR Lactulose 30 ml TID PO 06/14/25 12:30 06/14/25 12:46 30 ML Examination General: Sedated, ventilated, critically ill. HEENT: ETT/OGT in place. Pupils equal/reactive. Cardiac: Regular S1S2; no murmurs; on norepinephrine. Respiratory: Diminished bibasilar air entry; coarse crackles. Abdomen: Mildly distended, hypoactive bowel sounds, no guarding. Extremities: Trace edema; left BKA stump clean. Neuro: Sedated, pupillary reflexes intact, no seizure activity. Skin: Warm, intact, mild mottling of dependent areas. laboratory and microbiology Laboratory Tests 06/14/25 05:55 06/14/25 03:29 Test 06/14/25 03:29 Range/Units Serum Glucose 118 H 74-106 mg/dL Microbiology Date/Time Source Procedure Growth Status 06/11/25 12:50 Sputum Gram Stain - Final Complete 06/11/25 12:50 Respiratory Culture - Final Acinetobacter baumanii/haemol Complete 06/11/25 09:40 Blood Blood Culture - Preliminary NO GROWTH AFTER 72 HOURS OF INCUBATION. Resulted 06/11/25 08:30 Nose MRSA Screen - Final Complete 05/20/25 01:02 Urine - [place] Urine Culture - Final Yeast, not Dulce albicans Complete Problem List/Assessment/Plan Problem List/Assessment/Plan Assessment Critical, complex multi-organ failure patient. 1. Severe Sepsis / Pneumonia due to MDR organisms (MDR Acinetobacter baumannii, Stenotrophomonas, Pseudomonas, Enterobacter). On broad antimicrobials ).POA 2. Acute hypoxemic respiratory failure * On mechanical ventilation, FiO? 35%, PEEP 10, due to pneumonia and CHF. 3. 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 Cardiogenic shock secondary to ischemic cardiomyopathy ruled in * On norepinephrine and vasopressin drips, MAP target >65. 5. Atrial fibrillation previously on amiodarone drip; now rate-controlled. 6. Acute on Chronic HFrEF POA 7. PAD with Left foot gangrene s/p BKA and Status post stent placemnet stable surgical site. POA 9. Metabolic encephalopathy POA 10. History of DVT POA prophylaxis complicated by thrombocytopenia. 11. Poor prognosis given multi-organ dysfunction, infections, dialysis- dependence. 12. NSTEMI Type 2 POA ruled in * Secondary to ischemic cardiomyopathy with EF 20%, triple-vessel CAD, anemia, and critical illness. * Managed conservatively due to non-candidacy for CABG/PCI. Ischemic cardiomyopathy with severe LV systolic dysfunction (EF 20%) ruled in * LVEF 20% with anterior/apical wall hypokinesis; requiring vasopressors. Cardiogenic shock ruled in * Increasing norepinephrine requirement; evidence of poor perfusion. 13. Severe dysphagia with aspiration risk POA ruled in * PEG and tracheostomy planned for long-term support. 14. Anemia of chronic disease (CKD-related, status post-PRBC transfusion) ruled in * Stable Hgb 9.3. POA 8. Thrombocytopenia (improving) ruled in * , improving trend. 9. Type 2 diabetes mellitus, controlled POA ruled in. 10. Dyslipidemia and obesity POA chronic, continue management. Plan [facility] Respiratory * Continue mechanical ventilation (AC-VC): FiO? 35%, RR 14, PEEP 10. * Maintain SpO? > 92%. * Bronchodilator therapy: Albuterol neb Q8H PRN. * Pulmonology consult to continue management; * tracheostomy scheduled tomorrow pending hemodynamic and coagulation stability. * Daily ABG + CXR; monitor for effusions and infiltrates. * CXR daily; ABG Q12H. Infectious Disease * Meropenem IV 1 g Q8H for MDR Acinetobacter (primary coverage). * Vancomycin IV for possible Gram-positive coverage (monitor troughs). * Discontinue Zosyn (resistant). * Continue Azithromycin for atypical coverage pending cultures. * Monitor WBC, fever, and cultures daily. Cardiac * Daily ECG and troponin trending. * Monitor for arrhythmia (on amiodarone 200 mg daily). * Correct coagulopathy with vitamin K and FFP if INR >1.5 before trach. * Continue norepinephrine infusion; titrate for MAP at 60 mmHg. * Monitor lactate and perfusion markers. * Hold Plavix; * Continue Atorvastatin 40 mg HS. * Re-evaluate need for vasopressin post-HD. Renal * Hemodialysis with ultrafiltration today. * Strict I/O, daily weights. * Avoid nephrotoxins. * Albumin 25% IV pre-dialysis as tolerated. GI / Nutrition * Continue enteral feeding via NG tube (Glucerna 50 mL/hr). * Pantoprazole 40 mg IV daily for GI prophylaxis. * Hold tube feeds for now due to high residuals (1000 mL). * Continue Lactulose 30 mL TID and Metoclopramide 5 mg IV q8h. * PEG scheduled tomorrow; GI following. Hematology / Coagulation * Monitor CBC, PT/INR, PTT daily. * Transfuse PRBC if Hgb <7 g/dL or symptomatic. * Hold Plavix for 5 days pre-tracheostomy; resume 24 hr post-procedure if stable. * Plt 62 K monitor daily; transfuse if <30 K or <50 K before procedure. * INR stable; continue to monitor. * Hold pharmacologic DVT prophylaxis due to thrombocytopenia; continue SCDs. Endocrine / Metabolic * Insulin sliding scale; maintain BG 693327 mg/dL. * Monitor electrolytes and replete as needed. Sedation / Analgesia * Continue fentanyl and midazolam infusions. * RASS goal -2 to -3. Prophylaxis * DVT: SCDs only (no heparin due to thrombocytopenia). * GI: Pantoprazole daily. * Skin: Turn q2h, offload pressure points. * CLABSI bundle: Daily line check. Palliative Care * Discuss hospice option with patient/family. * Social work and palliative consult placed. Case discussed in detail with the attending physician, including the clinical presentation, diagnostic workup, and comprehensive management plan. The duration of time spent in direct critical care management of this patient, including evaluation, review of clinical data, coordination of care, and decision-making, was 45 minutes. Plan discussed with: Son My Orders My Orders Orders - FABRICIO CALVIN RESIDENT Procedure Category Date Status Time Abg W/ Co-Ox RT 06/14/25 Logged 04:00 Chest Xray 1 View XY 06/14/25 Resulted 04:00 Kub Abdomen Single XY 06/14/25 Resulted View 08:01 Cortisol Pm LAB 06/14/25 Logged 08:32 Communication Order ORDERS 06/14/25 Transmitted 08:36 Lactulose Oral PHA 06/14/25 In Process 12:30 Complete Blood Count LAB 06/15/25 Verified 04:00 Comprehensive LAB 06/15/25 Verified Metabolic Panel 04:00 Chest Xray 1 View XY 06/15/25 Logged 04:00 Abg W/ Co-Ox RT 06/15/25 Logged 04:00 Dietary Evaluation Review Comments: 1) Advance to [facility] 75gm + cardiac diet 2) Armen 1 pk BID, MVI w/ minerals 1 tab daily, VitC 500mg BID, Zinc sulfate 220mg BID x 10 days 3) Monitor NPO status, lab values, weight trend, and I/O Expected Outcomes/Goals: To meet >75% estimated needs Wound to improve Fu 2-3 days Date of Service: Jun 14, 2025 Billing Provider: LAUREN MA MD Common Visit Codes: [id number] CARE 30-74 MIN FABRICIO CALVIN RESIDENT Jun 14, 2025 13:58 LAUREN MA MD Jun 15, 2025 17:29
--- NOTE | 2025-06-14 15:18 | DVHPN2 ---
Progress Note - Dictate Date Seen: Jun 14, 2025 Has the PT tested + for MRSA If YES, has PT been informed?: No Medical Necessity Reason Pt with a Central, PICC or Fol: Yes The following are medically ne: PICC Line Subjective Critically ill patient with NSTEMI Type 2, EF 20%, shock requiring vasopressors, ESRD on HD, ventilator dependence, vital signs Vital Sign Date Time Temp Pulse Resp B/P (MAP) Pulse Ox O2 Delivery O2 Flow Rate FiO2 06/14/25 15:00 83 12 108/47 (67) 99 06/14/25 14:37 35 06/14/25 14:00 Mechanical Ventilator+ 06/14/25 12:00 98.0 98.0 Total Intake and Output 06/13/25 06/13/25 06/14/25 15:00 23:00 07:00 Intake Total 162.000 ml 573.847 ml 144.51 ml Output Total 1000 ml Balance 162.000 ml 573.847 ml -855.49 ml medications Current Medications Medications Dose Ordered Sig/Bandar Route Start Time Stop Time Status Last Admin Dose Admin Acetaminophen 650 mg Q6HP PRN PO 05/04/25 15:00 06/04/25 05:45 650 MG Sodium Chloride 10 ml QSHIFT@10,22 IV 05/19/25 22:00 06/14/25 12:47 10 ML Norepinephrine Bitartrate 32 mg/ Sodium Chloride 250 ml @ 0.938 mls/ hr Q24H IV 05/21/25 01:00 06/14/25 05:32 4.688 MLS/HR Pantoprazole Sodium 40 mg DAILY IV 05/21/25 10:00 06/14/25 12:45 40 MG Artificial Tears 1 drop Q6HP PRN EACHEYE 05/21/25 05:00 06/03/25 21:42 1 DROP Diagnostic Test (Pha) 1 strip Q6HR 05/23/25 00:00 06/14/25 12:46 1 STRIP Insulin Human Regular FOLLOW SLIDING SCALE Q6HR SC 05/23/25 00:00 06/14/25 13:21 2 UNITS Dextrose 50 ml UD IV 05/22/25 22:00 05/24/25 11:36 50 ML Albumin Human 100 ml @ 100 mls/hr PRN PRN IV 05/24/25 06:45 06/11/25 12:33 100 MLS/HR Enteral Nutritional Formula 1,000 ml 50ML/HR GT 05/24/25 17:30 06/09/25 21:30 1,000 ML Folic Acid 1 mg DAILY PO 05/25/25 10:00 06/14/25 12:47 1 MG Multivitamins 1 tab DAILY PO 05/25/25 10:00 06/14/25 12:47 1 TAB Cyanocobalamin 1,000 mcg DAILY PO 05/25/25 10:00 06/14/25 12:47 1,000 MCG Pyridoxine HCl 50 mg DAILY PO 05/25/25 10:00 06/14/25 12:46 50 MG Ondansetron HCl 4 mg Q4HPRN PRN IV 05/25/25 18:00 Amiodarone HCl 200 mg Q12HR GT 05/29/25 10:00 06/14/25 12:47 200 MG Clopidogrel Bisulfate 75 mg DAILY NG 06/02/25 18:30 Cancel Albuterol 1.25 mg Q8HP PRN NEB 06/03/25 14:00 06/14/25 14:37 1.25 MG Acetylcysteine 200 mg Q8HR NEB 06/03/25 14:00 06/14/25 14:37 200 MG Melatonin 5 mg HS PO 06/04/25 22:00 06/09/25 21:27 5 MG Atorvastatin Calcium 40 mg HS PO 06/07/25 22:00 06/13/25 21:00 40 MG Albumin Human 100 ml @ 100 mls/hr ONCE PRN IV 06/09/25 08:45 06/09/25 11:15 100 MLS/HR Epoetin Norm-epbx 10,000 unit MWF@2100 [place] 06/10/25 21:00 Hold 06/13/25 20:57 10,000 UNIT Midazolam HCl 50 ml @ 1 mls/hr Q24H IV 06/09/25 23:00 06/14/25 05:32 2 MLS/HR Fentanyl Citrate 250 ml @ 2.5 mls/hr Q24H IV 06/09/25 23:00 06/14/25 00:40 7.5 MLS/HR Vancomycin HCl 0 ml @ 0 mls/hr UD IV 06/11/25 08:45 Metoclopramide HCl 5 mg Q8HR IV 06/12/25 22:00 06/14/25 05:32 5 MG Meropenem 50 ml @ 17 mls/hr Q12HR IV 06/13/25 14:00 06/14/25 12:48 17 MLS/HR Lactulose 30 ml TID PO 06/14/25 12:30 06/14/25 12:46 30 ML objective General Appearance: Other (Intubated, on vent.) HEENT: Atraumatic, PERRLA Lungs: Clear to auscultation, Other (On vent; transmitted breath sounds bilaterally. Decreased air entry bilaterally. No wheezing or rhonchi. Bibasilar crackles.) Cardiovascular: Normal S1, Normal S2, Other (Atrial fibrillation) Abdomen: Normal bowel sounds, Soft, No tenderness, No hepatospenomegaly Genitourinary: No Apparent Abnormalities (Leung catheter) Musculoskeletal: Other Extremities: Normal pulses, Other (Left BKA stump intact, trace edema ) Neuro: Other (Sedated.) laboratory and microbiology Laboratory Tests 06/14/25 05:55 06/14/25 03:29 Test 06/14/25 03:29 Range/Units Serum Glucose 118 H 74-106 mg/dL Problems(with codes): (1) Acute kidney injury superimposed on CKD (2) Gravely disabled (3) Autonomic dysfunction (4) Near syncope (5) Triple vessel coronary artery disease (6) Foot osteomyelitis, right (7) Generalized weakness Prognosis Plan Family has agreed to proceed with PEG tube placement Patient is scheduled for a tracheostomy tomorrow I will be standing by to arrange an EGD with PEG tube later this week Dietary Evaluation Review Comments: 1) Advance to [facility] 75gm + cardiac diet 2) Armen 1 pk BID, MVI w/ minerals 1 tab daily, VitC 500mg BID, Zinc sulfate 220mg BID x 10 days 3) Monitor NPO status, lab values, weight trend, and I/O Expected Outcomes/Goals: To meet >75% estimated needs Wound to improve Fu 2-3 days Plan discussed with: Other (ICU Nurse) GO BERGMAN MD Jun 14, 2025 15:18
--- NOTE | 2025-06-14 15:25 | DVHPN2 ---
Progress Note - Dictate Date Seen: Jun 14, 2025 Has the PT tested + for MRSA If YES, has PT been informed?: No Medical Necessity Reason Pt with a Central, PICC or Fol: Yes The following are medically ne: PICC Line vital signs Vital Sign Date Time Temp Pulse Resp B/P (MAP) Pulse Ox O2 Delivery O2 Flow Rate FiO2 06/14/25 15:00 83 12 108/47 (67) 99 06/14/25 14:37 35 06/14/25 14:00 Mechanical Ventilator+ 06/14/25 12:00 98.0 98.0 Total Intake and Output 06/13/25 06/13/25 06/14/25 15:00 23:00 07:00 Intake Total 162.000 ml 573.847 ml 144.51 ml Output Total 1000 ml Balance 162.000 ml 573.847 ml -855.49 ml medications Current Medications Medications Dose Ordered Sig/Bandar Route Start Time Stop Time Status Last Admin Dose Admin Acetaminophen 650 mg Q6HP PRN PO 05/04/25 15:00 06/04/25 05:45 650 MG Sodium Chloride 10 ml QSHIFT@10,22 IV 05/19/25 22:00 06/14/25 12:47 10 ML Norepinephrine Bitartrate 32 mg/ Sodium Chloride 250 ml @ 0.938 mls/ hr Q24H IV 05/21/25 01:00 06/14/25 05:32 4.688 MLS/HR Pantoprazole Sodium 40 mg DAILY IV 05/21/25 10:00 06/14/25 12:45 40 MG Artificial Tears 1 drop Q6HP PRN EACHEYE 05/21/25 05:00 06/03/25 21:42 1 DROP Diagnostic Test (Pha) 1 strip Q6HR 05/23/25 00:00 06/14/25 12:46 1 STRIP Insulin Human Regular FOLLOW SLIDING SCALE Q6HR SC 05/23/25 00:00 06/14/25 13:21 2 UNITS Dextrose 50 ml UD IV 05/22/25 22:00 05/24/25 11:36 50 ML Albumin Human 100 ml @ 100 mls/hr PRN PRN IV 05/24/25 06:45 06/11/25 12:33 100 MLS/HR Enteral Nutritional Formula 1,000 ml 50ML/HR GT 05/24/25 17:30 06/09/25 21:30 1,000 ML Folic Acid 1 mg DAILY PO 05/25/25 10:00 06/14/25 12:47 1 MG Multivitamins 1 tab DAILY PO 05/25/25 10:00 06/14/25 12:47 1 TAB Cyanocobalamin 1,000 mcg DAILY PO 05/25/25 10:00 06/14/25 12:47 1,000 MCG Pyridoxine HCl 50 mg DAILY PO 05/25/25 10:00 06/14/25 12:46 50 MG Ondansetron HCl 4 mg Q4HPRN PRN IV 05/25/25 18:00 Amiodarone HCl 200 mg Q12HR GT 05/29/25 10:00 06/14/25 12:47 200 MG Clopidogrel Bisulfate 75 mg DAILY NG 06/02/25 18:30 Cancel Albuterol 1.25 mg Q8HP PRN NEB 06/03/25 14:00 06/14/25 14:37 1.25 MG Acetylcysteine 200 mg Q8HR NEB 06/03/25 14:00 06/14/25 14:37 200 MG Melatonin 5 mg HS PO 06/04/25 22:00 06/09/25 21:27 5 MG Atorvastatin Calcium 40 mg HS PO 06/07/25 22:00 06/13/25 21:00 40 MG Albumin Human 100 ml @ 100 mls/hr ONCE PRN IV 06/09/25 08:45 06/09/25 11:15 100 MLS/HR Epoetin Norm-epbx 10,000 unit MWF@2100 [place] 06/10/25 21:00 Hold 06/13/25 20:57 10,000 UNIT Midazolam HCl 50 ml @ 1 mls/hr Q24H IV 06/09/25 23:00 06/14/25 05:32 2 MLS/HR Fentanyl Citrate 250 ml @ 2.5 mls/hr Q24H IV 06/09/25 23:00 06/14/25 00:40 7.5 MLS/HR Vancomycin HCl 0 ml @ 0 mls/hr UD IV 06/11/25 08:45 Metoclopramide HCl 5 mg Q8HR IV 06/12/25 22:00 06/14/25 05:32 5 MG Meropenem 50 ml @ 17 mls/hr Q12HR IV 06/13/25 14:00 06/14/25 12:48 17 MLS/HR Lactulose 30 ml TID PO 06/14/25 12:30 06/14/25 12:46 30 ML laboratory and microbiology Laboratory Tests 06/14/25 05:55 06/14/25 03:29 Test 06/14/25 03:29 Range/Units Serum Glucose 118 H 74-106 mg/dL Assessment/Plan Impression Acute hypoxemic respiratory failure Atelectasis Fluid overload Pleural effusions Patient seen and examined in the ICU Events on the ventilator s/p reintubation ac volume control peep 7 fi02 30% abg: reviewed CXR reviewed Management plan Vent support Titrate to maintain sats 90% or above Sedation for vent synchrony Continue antibiotics F/u cultures consider bronchoscopy Bronchodilators diurese/HD Monitor renal function Monitor electrolytes Supplement as needed Pressors as needed for hemodynamic support To maintain a mean arterial pressure of 65 mmHg full code may need trache and peg Critical care time 35 minutes Dietary Evaluation Review Comments: 1) [facility] + cardiac diet 2) Armen 1 pk BID, MVI w/ minerals 1 tab daily, VitC 500mg BID, Zinc sulfate 220mg BID x 10 days 3) Monitor NPO status, lab values, weight trend, and I/O Expected Outcomes/Goals: To meet >75% estimated needs Wound to improve Fu 2-3 days Plan discussed with: Patient DELROY REDD MD Jun 14, 2025 15:25
[2025-06-14] MEDS: VANCOMYCIN 500mg/100mL 100 ML IV ONE (22:01)
[2025-06-15] VITALS (114 sets, daily range): BP systolic 61–122; BP diastolic 31–63; PULSE 73–126; RESP 11–20; TEMP 96.6–98.5; O2SAT 89–100
[2025-06-15 04:38] LABS: Chloride 99 mmol/L (98-107); Potassium 3.6 mmol/L (3.5-5.1); Sodium 143 mmol/L (136-145)
[2025-06-15 04:42] LABS: INR 1.42 (0.9-1.15); Partial Thromboplastin Time 38.1 SEC (24.5-34.5); Prothrombin Time 14.5 sec (9.3-11.8)
[2025-06-15 04:44] LABS: Calcium 9.5 mg/dL (8.7-10.4)
[2025-06-15 04:48] LABS: Alkaline Phosphatase 87 U/L (46-116)
[2025-06-15 04:49] LABS: BUN/Creatinine Ratio 10.5 (10.0-20.0)
[2025-06-15 04:51] LABS: Alanine Aminotransferase 13 U/L (7-40); Albumin 3.3 g/dL (3.2-4.8); Bilirubin, Total 0.9 mg/dL (0.2-1.0)
[2025-06-15 04:54] LABS: Glucose 155 mg/dL (74-106)
[2025-06-15 04:55] LABS: Blood Urea Nitrogen 31 mg/dL (9-23); Total Protein 5.7 g/dL (5.7-8.2)
[2025-06-15 05:17] LABS: Anion Gap 17 (5-15); Carbon Dioxide 27 mmol/L (20-31)
--- NOTE | 2025-06-15 05:21 | DVH ---
CHEST RADIOGRAPH Indication: Acute hypoxic respiratory failure Technique: Single frontal view of the chest was obtained COMPARISON: XY CHEST XRAY 1 VIEW on DOS: 06/14/25, XY CHEST PORTABLE on DOS: 06/13/25, XY CHEST XRAY 1 VIEW on DOS: 06/12/25, XY CHEST XRAY 1 VIEW on DOS: 06/11/25, XY CHEST PORTABLE on DOS: 06/10/25 FINDINGS: Lines and Tubes: Lines and tubes in satisfactory position. Lungs: Congestion, unchanged Pleura: No effusion.No pneumothorax. Cardiomediastinal contours: Unremarkable. Bones: Unremarkable. IMPRESSION: Lines and tubes in satisfactory position.
[2025-06-15] MEDS: SODIUM CHL 0.9% 1000 ML BAG XX ONE (07:00)
[2025-06-15 07:48] LABS: Base Excess 1.3 mmol/L (-2.0-3.0)
[2025-06-15 09:37] LABS: Hematocrit 20.9 % (41.0-53.0); Nucleated Red Blood Cells % 0.0 %
[2025-06-15 09:38] LABS: Mean Corpuscular Hemoglobin 34.4 pg (28.0-32.0); Mean Corpuscular Volume 106.1 fL (80.0-100.0)
[2025-06-15 09:49] LABS: Hemoglobin 6.8 g/dL (13.5-17.5)
[2025-06-15 10:34] LABS: Anisocytosis Moderate; Macrocytosis Moderate; Tear Drop Cells FEW
--- NOTE | 2025-06-15 11:08 | ECG ---
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
--- NOTE | 2025-06-15 11:29 | DVHPN2 ---
Progress Note Date Seen: Jun 15, 2025 Has the PT tested + for MRSA If YES, has PT been informed?: No Medical Necessity Reason Pt with a Central, PICC or Fol: Yes The following are medically ne: PICC Line Subjective Review of Systems: RESPIRATORY:Abnormal Other Systems: Patient seen and examined by myself today in follow-up, patient remained intubated on ventilator Objective vital signs Vital Sign Date Time Temp Pulse Resp B/P (MAP) Pulse Ox O2 Delivery O2 Flow Rate FiO2 06/15/25 10:15 78 13 111/48 (69) 100 06/15/25 10:00 30 06/15/25 10:00 Mechanical Ventilator+ 06/15/25 08:00 97.4 97.4 Total Intake and Output 06/14/25 06/14/25 06/15/25 15:00 23:00 07:00 Intake Total 106.00 ml 256.00 ml 216.00 ml Output Total 0 ml 0 ml Balance 106.00 ml 256.00 ml 216.00 ml medications Current Medications Medications Dose Ordered Sig/Bandar Route Start Time Stop Time Status Last Admin Dose Admin Acetaminophen 650 mg Q6HP PRN PO 05/04/25 15:00 06/04/25 05:45 650 MG Sodium Chloride 10 ml QSHIFT@10,22 IV 05/19/25 22:00 06/15/25 11:08 10 ML Norepinephrine Bitartrate 32 mg/ Sodium Chloride 250 ml @ 0.938 mls/ hr Q24H IV 05/21/25 01:00 06/14/25 05:32 4.688 MLS/HR Pantoprazole Sodium 40 mg DAILY IV 05/21/25 10:00 06/15/25 11:08 40 MG Artificial Tears 1 drop Q6HP PRN EACHEYE 05/21/25 05:00 06/03/25 21:42 1 DROP Diagnostic Test (Pha) 1 strip Q6HR 05/23/25 00:00 06/15/25 11:12 1 STRIP Insulin Human Regular FOLLOW SLIDING SCALE Q6HR SC 05/23/25 00:00 06/14/25 13:21 2 UNITS Dextrose 50 ml UD IV 05/22/25 22:00 05/24/25 11:36 50 ML Albumin Human 100 ml @ 100 mls/hr PRN PRN IV 05/24/25 06:45 06/11/25 12:33 100 MLS/HR Enteral Nutritional Formula 1,000 ml 50ML/HR GT 05/24/25 17:30 06/09/25 21:30 1,000 ML Folic Acid 1 mg DAILY PO 05/25/25 10:00 06/14/25 12:47 1 MG Multivitamins 1 tab DAILY PO 05/25/25 10:00 06/14/25 12:47 1 TAB Cyanocobalamin 1,000 mcg DAILY PO 05/25/25 10:00 06/14/25 12:47 1,000 MCG Pyridoxine HCl 50 mg DAILY PO 05/25/25 10:00 06/14/25 12:46 50 MG Ondansetron HCl 4 mg Q4HPRN PRN IV 05/25/25 18:00 Amiodarone HCl 200 mg Q12HR GT 05/29/25 10:00 06/15/25 11:08 200 MG Clopidogrel Bisulfate 75 mg DAILY NG 06/02/25 18:30 Cancel Albuterol 1.25 mg Q8HP PRN NEB 06/03/25 14:00 06/15/25 06:29 1.25 MG Acetylcysteine 200 mg Q8HR NEB 06/03/25 14:00 06/15/25 06:29 200 MG Melatonin 5 mg HS PO 06/04/25 22:00 06/09/25 21:27 5 MG Atorvastatin Calcium 40 mg HS PO 06/07/25 22:00 06/14/25 22:01 40 MG Albumin Human 100 ml @ 100 mls/hr ONCE PRN IV 06/09/25 08:45 06/09/25 11:15 100 MLS/HR Epoetin Norm-epbx 10,000 unit MWF@2100 CO 06/10/25 21:00 Hold 06/13/25 20:57 10,000 UNIT Midazolam HCl 50 ml @ 1 mls/hr Q24H IV 06/09/25 23:00 06/15/25 04:37 2 MLS/HR Fentanyl Citrate 250 ml @ 2.5 mls/hr Q24H IV 06/09/25 23:00 06/15/25 05:45 7.5 MLS/HR Vancomycin HCl 0 ml @ 0 mls/hr UD IV 06/11/25 08:45 Metoclopramide HCl 5 mg Q8HR IV 06/12/25 22:00 06/15/25 05:58 5 MG Meropenem 50 ml @ 17 mls/hr Q12HR IV 06/13/25 14:00 06/15/25 11:08 17 MLS/HR Lactulose 30 ml TID PO 06/14/25 12:30 06/15/25 05:59 30 ML Sennosides 8.6 mg QHSP NG 06/15/25 22:00 Examination: LUNGS:Normal, CVS:Normal, MSK:Normal laboratory and microbiology Laboratory Tests 06/15/25 09:12 06/15/25 03:30 Test 06/15/25 03:30 Range/Units Serum Glucose 155 H 74-106 mg/dL Microbiology Date/Time Source Procedure Growth Status 06/11/25 12:50 Sputum Gram Stain - Final Complete 06/11/25 12:50 Respiratory Culture - Final Acinetobacter baumanii/haemol Complete 06/11/25 09:40 Blood Blood Culture - Preliminary NO GROWTH AFTER 72 HOURS OF INCUBATION. Resulted 06/11/25 08:30 Nose MRSA Screen - Final Complete 05/20/25 01:02 Urine - [place] Urine Culture - Final Yeast, not Dulce albicans Complete Problem List/Assessment/Plan Problem List/Assessment/Plan Acute kidney injury superimposed Chronic Kidney Disease stage IV secondary hemodynamic mediated, FeNa < 1% requiring intermittent hemodialysis Chronic kidney disease stage IV followed by Dr. Ponce Gangrene left foot, status post left below-knee amputation 05/20 Left lower extremity DVT Diabetes mellitus type 2 Chronic diastolic Congestive heart failure NSTEMI Hyponatremia due to excess H2O Dropping hemoglobin Anemia due to blood loss Metabolic acidosis Septic shock History of testicular cancer Cellulitis lower extremity Recommendations Hemodialysis tomorrow Epogen 09926 subQ 3 times weekly Albumin 25% p.r.n. hemodialysis Strict I&Os kidney ultrasound reported bilateral small echogenic kidneys, no obstruction Fluid restrictions IV pressors for blood pressure support Packed red blood cell transfusion p.r.n. Noted plan for trach and PEG tube We will continue to follow up Total care time 25 minutes minute Plan discussed with: Other (Nurse) My Orders My Orders Orders - QUOC QUINONEZ MD Procedure Category Date Status Time Hemodialysis Orders ORDERS 06/16/25 Transmitted 04:00 Dietary Evaluation Review Comments: 1) Advance to [facility] 75gm + cardiac diet 2) Armen 1 pk BID, MVI w/ minerals 1 tab daily, VitC 500mg BID, Zinc sulfate 220mg BID x 10 days 3) Monitor NPO status, lab values, weight trend, and I/O Expected Outcomes/Goals: To meet >75% estimated needs Wound to improve Fu 2-3 days QUOC QUINONEZ MD Jun 15, 2025 11:29
--- NOTE | 2025-06-15 16:31 | DVHPNRES ---
Progress Note Date Seen: Jun 15, 2025 Resident Creating Document: FABRICIO CALVIN RESIDENT Has the PT tested + for MRSA If YES, has PT been informed?: No Medical Necessity Reason Pt with a Central, PICC or Fol: Yes The following are medically ne: PICC Line Subjective Review of Systems The patient remains intubated and mechanically ventilated for acute hypoxemic respiratory failure secondary to ischemic cardiomyopathy (EF 20%), ventilator- associated pneumonia due to MDR Acinetobacter baumannii, and volume overload from ESRD. He is on fentanyl and midazolam infusions for sedation and norepinephrine for vasopressor support. Today, the patient is scheduled for tracheostomy and PEG tube placement following family consent obtained yesterday. Cardiology cleared the patient for moderate-risk surgery with Plavix appropriately discontinued pre-operatively. Hemoglobin has fallen to 6.8 g/dL (from 7.8 g/dL yesterday), with hematocrit 20.9 %, prompting transfusion of 1 unit PRBC during hemodialysis today. Platelets have improved from 62 K ? 79 K, WBC stable at 9.8 K, and no signs of active bleeding noted. ABG: pH 7.30, pCO? 48, pO? 80.7, HCO? 26.9 indicates mild respiratory acidosis likely related to ventilator settings and underlying cardiac failure.?CMP: anion gap 17, BUN 31 (H), Cr 2.96 (H); remainder unremarkable.?CXR: Lines and tubes in satisfactory position, no interval changes from yesterday, persistent bilateral basilar opacities with small pleural effusions. The patient is hemodynamically stable (BP 101/52 mmHg, HR 99 bpm, RR 14, SpO? 100 % on FiO? 30 %). Ventilator settings: AC-VC, FiO? 30 %, TV 450 mL, RR 12, PEEP 10. Hemodialysis planned for today with concurrent PRBC transfusion. The patient continues on Meropenem for MDR Acinetobacter and other chronic medications as tolerated. REVIEW OF SYSTEMS * General: Sedated, ventilated, critically ill. * Neuro: Pupils equal/reactive; no focal deficit. * Cardiac: Regular rate; on low-dose vasopressor. * Respiratory: On mechanical ventilation; coarse bilateral breath sounds. * GI: NPO, pending PEG; mild distension; no BM since 06/10. * : Anuric; on HD. * Skin: Warm, intact, no new breakdowns. Objective vital signs Vital Sign Date Time Temp Pulse Resp B/P (MAP) Pulse Ox O2 Delivery O2 Flow Rate FiO2 06/15/25 15:35 99 14 101/52 (68) 100 30 06/15/25 14:35 97.0 97.0 06/15/25 12:00 Mechanical Ventilator+ Total Intake and Output 06/14/25 06/14/25 06/15/25 15:00 23:00 07:00 Intake Total 106.00 ml 256.00 ml 216.00 ml Output Total 0 ml 0 ml Balance 106.00 ml 256.00 ml 216.00 ml medications Current Medications Medications Dose Ordered Sig/Bandar Route Start Time Stop Time Status Last Admin Dose Admin Acetaminophen 650 mg Q6HP PRN PO 05/04/25 15:00 06/04/25 05:45 650 MG Sodium Chloride 10 ml QSHIFT@10,22 IV 05/19/25 22:00 06/15/25 11:08 10 ML Norepinephrine Bitartrate 32 mg/ Sodium Chloride 250 ml @ 0.938 mls/ hr Q24H IV 05/21/25 01:00 06/14/25 05:32 4.688 MLS/HR Pantoprazole Sodium 40 mg DAILY IV 05/21/25 10:00 06/15/25 11:08 40 MG Artificial Tears 1 drop Q6HP PRN EACHEYE 05/21/25 05:00 06/03/25 21:42 1 DROP Diagnostic Test (Pha) 1 strip Q6HR 05/23/25 00:00 06/15/25 11:12 1 STRIP Insulin Human Regular FOLLOW SLIDING SCALE Q6HR SC 05/23/25 00:00 06/14/25 13:21 2 UNITS Dextrose 50 ml UD IV 05/22/25 22:00 05/24/25 11:36 50 ML Albumin Human 100 ml @ 100 mls/hr PRN PRN IV 05/24/25 06:45 06/15/25 14:08 100 MLS/HR Enteral Nutritional Formula 1,000 ml 50ML/HR GT 05/24/25 17:30 06/09/25 21:30 1,000 ML Folic Acid 1 mg DAILY PO 05/25/25 10:00 06/14/25 12:47 1 MG Multivitamins 1 tab DAILY PO 05/25/25 10:00 06/14/25 12:47 1 TAB Cyanocobalamin 1,000 mcg DAILY PO 05/25/25 10:00 06/14/25 12:47 1,000 MCG Pyridoxine HCl 50 mg DAILY PO 05/25/25 10:00 06/14/25 12:46 50 MG Ondansetron HCl 4 mg Q4HPRN PRN IV 05/25/25 18:00 Amiodarone HCl 200 mg Q12HR GT 05/29/25 10:00 06/15/25 11:08 200 MG Clopidogrel Bisulfate 75 mg DAILY NG 06/02/25 18:30 Cancel Albuterol 1.25 mg Q8HP PRN NEB 06/03/25 14:00 06/15/25 14:03 1.25 MG Acetylcysteine 200 mg Q8HR NEB 06/03/25 14:00 06/15/25 14:03 200 MG Melatonin 5 mg HS PO 06/04/25 22:00 06/09/25 21:27 5 MG Atorvastatin Calcium 40 mg HS PO 06/07/25 22:00 06/14/25 22:01 40 MG Albumin Human 100 ml @ 100 mls/hr ONCE PRN IV 06/09/25 08:45 06/09/25 11:15 100 MLS/HR Epoetin Norm-epbx 10,000 unit MWF@2100 SC 06/10/25 21:00 Hold 06/13/25 20:57 10,000 UNIT Midazolam HCl 50 ml @ 1 mls/hr Q24H IV 06/09/25 23:00 06/15/25 04:37 2 MLS/HR Fentanyl Citrate 250 ml @ 2.5 mls/hr Q24H IV 06/09/25 23:00 06/15/25 05:45 7.5 MLS/HR Vancomycin HCl 0 ml @ 0 mls/hr UD IV 06/11/25 08:45 Metoclopramide HCl 5 mg Q8HR IV 06/12/25 22:00 06/15/25 14:09 5 MG Meropenem 50 ml @ 17 mls/hr Q12HR IV 06/13/25 14:00 06/15/25 11:08 17 MLS/HR Lactulose 30 ml TID PO 06/14/25 12:30 06/15/25 14:09 30 ML Sennosides 8.6 mg QHSP NG 06/15/25 22:00 Examination General: Intubated, sedated, critically ill. HEENT: ETT/OGT in place; pupils equal/reactive. Cardiac: S1S2 regular; no murmurs. Respiratory: Bilateral diminished air entry with coarse rales; equal chest rise. Abdomen: Mild distention; soft, non-tender; bowel sounds hypoactive. Extremities: Trace pitting edema; left BKA stump clean. Neuro: Sedated; moves minimally to stimulation. Skin: Warm, intact, no erythema. laboratory and microbiology Laboratory Tests 06/15/25 09:12 06/15/25 03:30 Test 06/15/25 03:30 Range/Units Serum Glucose 155 H 74-106 mg/dL Microbiology Date/Time Source Procedure Growth Status 06/11/25 12:50 Sputum Gram Stain - Final Complete 06/11/25 12:50 Respiratory Culture - Final Acinetobacter baumanii/haemol Complete 06/11/25 09:40 Blood Blood Culture - Preliminary NO GROWTH AFTER 72 HOURS OF INCUBATION. Resulted 06/11/25 08:30 Nose MRSA Screen - Final Complete 05/20/25 01:02 Urine - [place] Urine Culture - Final Yeast, not Dulce albicans Complete Problem List/Assessment/Plan Problem List/Assessment/Plan Assessment Critical, complex multi-organ failure patient. 1. Severe Sepsis / Pneumonia due to MDR organisms (MDR Acinetobacter baumannii, Stenotrophomonas, Pseudomonas, Enterobacter). On broad antimicrobials ).POA 2. Acute hypoxemic respiratory failure * On mechanical ventilation, FiO? 35%, PEEP 10, due to pneumonia and CHF. 3. 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 Cardiogenic shock secondary to ischemic cardiomyopathy ruled in * On norepinephrine and vasopressin drips, MAP target >65. 5. Atrial fibrillation previously on amiodarone drip; now rate-controlled. 6. Acute on Chronic HFrEF POA 7. PAD with Left foot gangrene s/p BKA and Status post stent placemnet stable surgical site. POA 9. Metabolic encephalopathy POA 10. History of DVT POA prophylaxis complicated by thrombocytopenia. 11. Poor prognosis given multi-organ dysfunction, infections, dialysis- dependence. 12. NSTEMI Type 2 POA ruled in * Secondary to ischemic cardiomyopathy with EF 20%, triple-vessel CAD, anemia, and critical illness. * Managed conservatively due to non-candidacy for CABG/PCI. Ischemic cardiomyopathy with severe LV systolic dysfunction (EF 20%) ruled in * LVEF 20% with anterior/apical wall hypokinesis; requiring vasopressors. Cardiogenic shock ruled in * Increasing norepinephrine requirement; evidence of poor perfusion. 13. Severe dysphagia with aspiration risk POA ruled in * PEG and tracheostomy planned for long-term support. 14. Anemia of chronic disease (CKD-related, status post-PRBC transfusion) ruled in * Stable Hgb 9.3. POA 8. Thrombocytopenia (improving) ruled in * , improving trend. 9. Type 2 diabetes mellitus, controlled POA ruled in. 10. Dyslipidemia and obesity POA chronic, continue management. Plan [facility] Respiratory * Continue mechanical ventilation (AC-VC): FiO? 35%, RR 14, PEEP 10. * Maintain SpO? > 92%. * Bronchodilator therapy: Albuterol neb Q8H PRN. * Pulmonology consult to continue management; * tracheostomy scheduled today pending hemodynamic and coagulation stability. * Daily ABG + CXR; monitor for effusions and infiltrates. * CXR daily; ABG Q12H. Infectious Disease * Meropenem IV 1 g Q8H for MDR Acinetobacter (primary coverage). * Vancomycin IV for possible Gram-positive coverage (monitor troughs). * Discontinue Zosyn (resistant). * Continue Azithromycin for atypical coverage pending cultures. * Monitor WBC, fever, and cultures daily. Cardiac * Daily ECG and troponin trending. * Monitor for arrhythmia (on amiodarone 200 mg daily). * Correct coagulopathy with vitamin K and FFP if INR >1.5 before trach. * Continue norepinephrine infusion; titrate for MAP at 60 mmHg. * Monitor lactate and perfusion markers. * Hold Plavix; * Continue Atorvastatin 40 mg HS. * Re-evaluate need for vasopressin post-HD. Renal * Hemodialysis with ultrafiltration today with PRBC transfusion during session. * Strict I/O, daily weights. * Avoid nephrotoxins. * Albumin 25% IV pre-dialysis as tolerated. GI / Nutrition * Continue enteral feeding via NG tube (Glucerna 50 mL/hr). * Pantoprazole 40 mg IV daily for GI prophylaxis. * Hold tube feeds for now due to high residuals (1000 mL). * Continue Lactulose 30 mL TID and Metoclopramide 5 mg IV q8h.Senna BID * PEG scheduled today; GI following. Hematology / Coagulation * Monitor CBC, PT/INR, PTT daily. * Transfuse PRBC if Hgb <7 g/dL or symptomatic. * Hold Plavix for 5 days pre-tracheostomy; resume 24 hr post-procedure if stable. * Plt ; transfuse if <30 K or <50 K before procedure. * INR stable; continue to monitor. * Hold pharmacologic DVT prophylaxis due to thrombocytopenia; continue SCDs. Endocrine / Metabolic * Insulin sliding scale; maintain BG 536707 mg/dL. * Monitor electrolytes and replete as needed. Sedation / Analgesia * Continue fentanyl and midazolam infusions. * RASS goal -2 to -3. Prophylaxis * DVT: SCDs only (no heparin due to thrombocytopenia). * GI: Pantoprazole daily. * Skin: Turn q2h, offload pressure points. * CLABSI bundle: Daily line check. Discharge planning Care * Social work consult placed for LTAC placement Case discussed in detail with the attending physician, including the clinical presentation, diagnostic workup, and comprehensive management plan. The duration of time spent in direct critical care management of this patient, including evaluation, review of clinical data, coordination of care, and decision-making, was 45 minutes. Plan discussed with: Son, Other (RN) My Orders My Orders Orders - FABRICIO CALVIN RESIDENT Procedure Category Date Status Time Senna Pod Tablet PHA 06/15/25 In Process (Senokot Tablet) 22:00 Creatinine LAB 06/16/25 Verified 05:00 * Derrick Engineer CONS 06/15/25 Transmitted Consult Complete Blood Count LAB 06/16/25 Verified 04:00 Comprehensive LAB 06/16/25 Verified Metabolic Panel 04:00 Chest Xray 1 View XY 06/16/25 Logged 04:00 Magnesium LAB 06/16/25 Verified 04:00 Abg W/ Co-Ox RT 06/16/25 Logged 04:00 Dietary Evaluation Review Comments: 1) Advance to [facility] 75gm + cardiac diet 2) Armen 1 pk BID, MVI w/ minerals 1 tab daily, VitC 500mg BID, Zinc sulfate 220mg BID x 10 days 3) Monitor NPO status, lab values, weight trend, and I/O Expected Outcomes/Goals: To meet >75% estimated needs Wound to improve Fu 2-3 days Date of Service: Jun 15, 2025 Billing Provider: LAUREN MA MD Common Visit Codes: 02116-[id number] CARE 30-74 MIN FABRICIO CALVIN RESIDENT Jun 15, 2025 16:31 LAUREN MA MD Jun 15, 2025 17:29
--- NOTE | 2025-06-15 18:50 | DVHPN2 ---
Progress Note - Dictate Date Seen: Jun 15, 2025 Has the PT tested + for MRSA If YES, has PT been informed?: No Medical Necessity Reason Pt with a Central, PICC or Fol: Yes The following are medically ne: PICC Line vital signs Vital Sign Date Time Temp Pulse Resp B/P (MAP) Pulse Ox O2 Delivery O2 Flow Rate FiO2 06/15/25 16:00 12 100 Mechanical Ventilator+ 30 30 06/15/25 16:00 90 06/15/25 15:35 101/52 (68) 06/15/25 14:58 97.4 97.4 Total Intake and Output 06/14/25 06/14/25 06/15/25 15:00 23:00 07:00 Intake Total 106.00 ml 256.00 ml 216.00 ml Output Total 0 ml 0 ml Balance 106.00 ml 256.00 ml 216.00 ml medications Current Medications Medications Dose Ordered Sig/Bandar Route Start Time Stop Time Status Last Admin Dose Admin Acetaminophen 650 mg Q6HP PRN PO 05/04/25 15:00 06/04/25 05:45 650 MG Sodium Chloride 10 ml QSHIFT@10,22 IV 05/19/25 22:00 06/15/25 11:08 10 ML Norepinephrine Bitartrate 32 mg/ Sodium Chloride 250 ml @ 0.938 mls/ hr Q24H IV 05/21/25 01:00 06/14/25 05:32 4.688 MLS/HR Pantoprazole Sodium 40 mg DAILY IV 05/21/25 10:00 06/15/25 11:08 40 MG Artificial Tears 1 drop Q6HP PRN EACHEYE 05/21/25 05:00 06/03/25 21:42 1 DROP Diagnostic Test (Pha) 1 strip Q6HR 05/23/25 00:00 06/15/25 17:42 1 STRIP Insulin Human Regular FOLLOW SLIDING SCALE Q6HR SC 05/23/25 00:00 06/14/25 13:21 2 UNITS Dextrose 50 ml UD IV 05/22/25 22:00 05/24/25 11:36 50 ML Albumin Human 100 ml @ 100 mls/hr PRN PRN IV 05/24/25 06:45 06/15/25 14:08 100 MLS/HR Enteral Nutritional Formula 1,000 ml 50ML/HR GT 05/24/25 17:30 10/2/25 21:30 1,000 ML Folic Acid 1 mg DAILY PO 05/25/25 10:00 06/14/25 12:47 1 MG Multivitamins 1 tab DAILY PO 05/25/25 10:00 06/14/25 12:47 1 TAB Cyanocobalamin 1,000 mcg DAILY PO 05/25/25 10:00 06/14/25 12:47 1,000 MCG Pyridoxine HCl 50 mg DAILY PO 05/25/25 10:00 06/14/25 12:46 50 MG Ondansetron HCl 4 mg Q4HPRN PRN IV 05/25/25 18:00 Amiodarone HCl 200 mg Q12HR GT 05/29/25 10:00 06/15/25 11:08 200 MG Clopidogrel Bisulfate 75 mg DAILY NG 06/02/25 18:30 Cancel Albuterol 1.25 mg Q8HP PRN NEB 06/03/25 14:00 06/15/25 14:03 1.25 MG Acetylcysteine 200 mg Q8HR NEB 06/03/25 14:00 06/15/25 14:03 200 MG Melatonin 5 mg HS PO 06/04/25 22:00 06/09/25 21:27 5 MG Atorvastatin Calcium 40 mg HS PO 06/07/25 22:00 06/14/25 22:01 40 MG Albumin Human 100 ml @ 100 mls/hr ONCE PRN IV 06/09/25 08:45 06/09/25 11:15 100 MLS/HR Epoetin Norm-epbx 10,000 unit MWF@2100 SC 06/10/25 21:00 Hold 06/13/25 20:57 10,000 UNIT Midazolam HCl 50 ml @ 1 mls/hr Q24H IV 06/09/25 23:00 06/15/25 04:37 2 MLS/HR Fentanyl Citrate 250 ml @ 2.5 mls/hr Q24H IV 06/09/25 23:00 06/15/25 05:45 7.5 MLS/HR Vancomycin HCl 0 ml @ 0 mls/hr UD IV 06/11/25 08:45 Metoclopramide HCl 5 mg Q8HR IV 06/12/25 22:00 06/15/25 14:09 5 MG Meropenem 50 ml @ 17 mls/hr Q12HR IV 06/13/25 14:00 06/15/25 11:08 17 MLS/HR Lactulose 30 ml TID PO 06/14/25 12:30 06/15/25 14:09 30 ML Sennosides 8.6 mg QHSP NG 06/15/25 22:00 laboratory and microbiology Laboratory Tests 06/15/25 09:12 06/15/25 03:30 Test 06/15/25 03:30 Range/Units Serum Glucose 155 H 74-106 mg/dL Assessment/Plan Impression Acute hypoxemic respiratory failure Atelectasis Fluid overload Pleural effusions Patient seen and examined in the ICU Events on the ventilator s/p reintubation ac volume control peep 7 fi02 30% awaiting tracheostomy abg: reviewed CXR reviewed Management plan Vent support Titrate to maintain sats 90% or above Sedation for vent synchrony Continue antibiotics F/u cultures consider bronchoscopy Bronchodilators diurese/HD Monitor renal function Monitor electrolytes Supplement as needed Pressors as needed for hemodynamic support To maintain a mean arterial pressure of 65 mmHg full code awaiting tracheostomy Critical care time 35 minutes Dietary Evaluation Review Comments: 1) Advance to [facility] 75gm + cardiac diet 2) Armen 1 pk BID, MVI w/ minerals 1 tab daily, VitC 500mg BID, Zinc sulfate 220mg BID x 10 days 3) Monitor NPO status, lab values, weight trend, and I/O Expected Outcomes/Goals: To meet >75% estimated needs Wound to improve Fu 2-3 days Plan discussed with: Other (Rn) DELROY REDD MD Jun 15, 2025 18:50
[2025-06-15 20:32] LABS: Hematocrit 20.3 % (41.0-53.0)
[2025-06-15 20:39] LABS: Hemoglobin 6.7 g/dL (13.5-17.5)
--- NOTE | 2025-06-15 20:48 | DVHPN2 ---
Progress Note - Dictate Date Seen: Jun 15, 2025 Has the PT tested + for MRSA If YES, has PT been informed?: No Medical Necessity Reason Pt with a Central, PICC or Fol: Yes The following are medically ne: PICC Line Subjective Critically ill patient with NSTEMI Type 2, EF 20%, shock requiring vasopressors, ESRD on HD, ventilator dependence, Patient was getting hemodialysis today vital signs Vital Sign Date Time Temp Pulse Resp B/P (MAP) Pulse Ox O2 Delivery O2 Flow Rate FiO2 06/15/25 20:29 91 12 101/50 (67) 96 30 06/15/25 20:00 Mechanical Ventilator+ 06/15/25 16:00 98.4 98.4 Total Intake and Output 06/14/25 06/14/25 06/15/25 15:00 23:00 07:00 Intake Total 106.00 ml 256.00 ml 216.00 ml Output Total 0 ml 0 ml Balance 106.00 ml 256.00 ml 216.00 ml medications Current Medications Medications Dose Ordered Sig/Bandar Route Start Time Stop Time Status Last Admin Dose Admin Acetaminophen 650 mg Q6HP PRN PO 05/04/25 15:00 06/04/25 05:45 650 MG Sodium Chloride 10 ml QSHIFT@10,22 IV 05/19/25 22:00 06/15/25 11:08 10 ML Norepinephrine Bitartrate 32 mg/ Sodium Chloride 250 ml @ 0.938 mls/ hr Q24H IV 05/21/25 01:00 06/14/25 05:32 4.688 MLS/HR Pantoprazole Sodium 40 mg DAILY IV 05/21/25 10:00 06/15/25 11:08 40 MG Artificial Tears 1 drop Q6HP PRN EACHEYE 05/21/25 05:00 06/03/25 21:42 1 DROP Diagnostic Test (Pha) 1 strip Q6HR 05/23/25 00:00 06/15/25 17:42 1 STRIP Insulin Human Regular FOLLOW SLIDING SCALE Q6HR SC 05/23/25 00:00 06/14/25 13:21 2 UNITS Dextrose 50 ml UD IV 05/22/25 22:00 05/24/25 11:36 50 ML Albumin Human 100 ml @ 100 mls/hr PRN PRN IV 05/24/25 06:45 06/15/25 14:08 100 MLS/HR Enteral Nutritional Formula 1,000 ml 50ML/HR GT 05/24/25 17:30 06/09/25 21:30 1,000 ML Folic Acid 1 mg DAILY PO 05/25/25 10:00 06/14/25 12:47 1 MG Multivitamins 1 tab DAILY PO 05/25/25 10:00 06/14/25 12:47 1 TAB Cyanocobalamin 1,000 mcg DAILY PO 05/25/25 10:00 06/14/25 12:47 1,000 MCG Pyridoxine HCl 50 mg DAILY PO 05/25/25 10:00 06/14/25 12:46 50 MG Ondansetron HCl 4 mg Q4HPRN PRN IV 05/25/25 18:00 Amiodarone HCl 200 mg Q12HR GT 05/29/25 10:00 06/15/25 11:08 200 MG Clopidogrel Bisulfate 75 mg DAILY NG 06/02/25 18:30 Cancel Albuterol 1.25 mg Q8HP PRN NEB 06/03/25 14:00 06/15/25 14:03 1.25 MG Acetylcysteine 200 mg Q8HR NEB 06/03/25 14:00 06/15/25 14:03 200 MG Melatonin 5 mg HS PO 06/04/25 22:00 06/09/25 21:27 5 MG Atorvastatin Calcium 40 mg HS PO 06/07/25 22:00 06/14/25 22:01 40 MG Albumin Human 100 ml @ 100 mls/hr ONCE PRN IV 06/09/25 08:45 06/09/25 11:15 100 MLS/HR Epoetin Norm-epbx 10,000 unit MWF@2100 PA 06/10/25 21:00 Hold 06/13/25 20:57 10,000 UNIT Midazolam HCl 50 ml @ 1 mls/hr Q24H IV 06/09/25 23:00 06/15/25 04:37 2 MLS/HR Fentanyl Citrate 250 ml @ 2.5 mls/hr Q24H IV 06/09/25 23:00 06/15/25 05:45 7.5 MLS/HR Vancomycin HCl 0 ml @ 0 mls/hr UD IV 06/11/25 08:45 Metoclopramide HCl 5 mg Q8HR IV 06/12/25 22:00 10/8/25 14:09 5 MG Meropenem 50 ml @ 17 mls/hr Q12HR IV 06/13/25 14:00 06/15/25 11:08 17 MLS/HR Lactulose 30 ml TID PO 06/14/25 12:30 06/15/25 14:09 30 ML Sennosides 8.6 mg QHSP NG 06/15/25 22:00 objective General Appearance: Other (Intubated, on vent.) HEENT: Atraumatic, PERRLA Lungs: Clear to auscultation, Other (On vent; transmitted breath sounds bilaterally. Decreased air entry bilaterally. No wheezing or rhonchi. Bibasilar crackles.) Cardiovascular: Normal S1, Normal S2, Other (Atrial fibrillation) Abdomen: Normal bowel sounds, Soft, No tenderness, No hepatospenomegaly Genitourinary: No Apparent Abnormalities (Leung catheter) Musculoskeletal: Other Extremities: Normal pulses, Other (Left BKA stump intact, trace edema ) Neuro: Other (Sedated.) laboratory and microbiology Laboratory Tests 06/15/25 19:48 06/15/25 09:12 06/15/25 03:30 Test 06/15/25 03:30 Range/Units Serum Glucose 155 H 74-106 mg/dL Problems(with codes): (1) Acute kidney injury superimposed on CKD (2) Gravely disabled (3) Triple vessel coronary artery disease (4) Generalized weakness (5) Azotemia Prognosis Plan Patient is awaiting tracheostomy I will arrange endoscopy with PEG tube placement after the above Continue enteral tube feedings I will follow up patient with you Dietary Evaluation Review Comments: 1) Advance to [facility] 75gm + cardiac diet 2) Armen 1 pk BID, MVI w/ minerals 1 tab daily, VitC 500mg BID, Zinc sulfate 220mg BID x 10 days 3) Monitor NPO status, lab values, weight trend, and I/O Expected Outcomes/Goals: To meet >75% estimated needs Wound to improve Fu 2-3 days Plan discussed with: Other (ICU Nurse and Dr York) GO BERGMAN MD Jun 15, 2025 20:48
[2025-06-15] MEDS: SENNA 8.6 MG TAB NG SCH (21:48)
[2025-06-15 22:34] LABS: Hematocrit 20.5 % (41.0-53.0)
[2025-06-15 22:37] LABS: Hemoglobin 6.9 g/dL (13.5-17.5)
[2025-06-16] VITALS (109 sets, daily range): BP systolic 74–126; BP diastolic 34–68; PULSE 64–87; RESP 11–13; TEMP 96.8–97.7; O2SAT 94–100
[2025-06-16] MEDS: EPOETIN ALFA-EPBX 10,000 UNIT/1ML VIAL SC ONE (00:11)
[2025-06-16 03:47] LABS: Alanine Aminotransferase 10 U/L (7-40); Albumin 3.7 g/dL (3.2-4.8); Alkaline Phosphatase 85 U/L (46-116); Anion Gap 14 (5-15); BUN/Creatinine Ratio 7.7 (10.0-20.0); Blood Urea Nitrogen 16 mg/dL (9-23); Calcium 9.5 mg/dL (8.7-10.4); Carbon Dioxide 29 mmol/L (20-31); Chloride 101 mmol/L (98-107); Magnesium 2.1 mg/dL (1.6-2.6); Potassium 3.5 mmol/L (3.5-5.1); Sodium 144 mmol/L (136-145); Total Protein 5.8 g/dL (5.7-8.2)
[2025-06-16 03:52] LABS: Bilirubin, Total 1.5 mg/dL (0.2-1.0); Glucose 165 mg/dL (74-106)
[2025-06-16 03:59] LABS: Hemoglobin 8.0 g/dL (13.5-17.5); Nucleated Red Blood Cells % 0.2 %
[2025-06-16 04:00] LABS: Hematocrit 24.3 % (41.0-53.0); Mean Corpuscular Hemoglobin 30.3 pg (28.0-32.0); Mean Corpuscular Volume 92.1 fL (80.0-100.0)
--- NOTE | 2025-06-16 05:30 | DVH ---
CHEST RADIOGRAPH Indication: Acute hypoxic respiratory failure Technique: Single frontal view of the chest was obtained COMPARISON: XY CHEST XRAY 1 VIEW on DOS: 06/15/25, XY CHEST XRAY 1 VIEW on DOS: 06/14/25, XY CHEST PORT ABLE on DOS: 06/13/25, XY CHEST XRAY 1 VIEW on DOS: 06/12/25, XY CHEST XRAY 1 VIEW on DOS: 06/11/25 FINDINGS: Lines and Tubes: Endotracheal tube, enteric catheter, left PICC and right tunneled central venous cat heter in satisfactory position. Lungs: Unchanged pulmonary vascular congestion. Pleura: Small right pleural effusion. No pneumothorax. Cardiomediastinal contours: Unremarkable. Bones: Unremarkable. IMPRESSION: Unchanged pulmonary vascular congestion. Lines and tubes in satisfactory position.
[2025-06-16 06:25] LABS: Base Excess 2.6 mmol/L (-2.0-3.0)
[2025-06-16 11:18] LABS: Hemoglobin 8.2 g/dL (13.5-17.5)
[2025-06-16 11:22] LABS: Hematocrit 25.3 % (41.0-53.0)
--- NOTE | 2025-06-16 11:59 | DVHPNRES ---
Progress Note Date Seen: Jun 16, 2025 Resident Creating Document: FABRICIO CALVIN RESIDENT Has the PT tested + for MRSA If YES, has PT been informed?: No Medical Necessity Reason Pt with a Central, PICC or Fol: Yes The following are medically ne: PICC Line, Leung Catheter Subjective Review of Systems The patient remains mechanically ventilated and sedated for acute hypoxemic respiratory failure secondary to ischemic cardiomyopathy (EF 20%), ventilator- associated pneumonia (MDR Acinetobacter baumannii), and volume overload due to ESRD. Over the last 24 hours, the patient has shown hemodynamic improvement, allowing discontinuation of norepinephrine (Levophed). The patients MAP is maintained > 60 mmHg and SBP > 90 mmHg with vasopressor support at lowest dose, today we are discontinuing Norepinephrine. Hemoglobin today = 8.2 g/dL, stable post 1 unit PRBC transfusion yesterday (previously 6.9 ? 8.2 post-transfusion). Platelets stable at 79 K, WBC stable, and Hct ? 24 %. ABG: pH 7.39 / pCO? 47 mmHg / pO? 86.1 mmHg / HCO? 27.9 mmol/L / O? Sat 95.9 % ? compensated respiratory acidosis, stable on current ventilator settings.?CMP: Cr 2.09 (H), GFR 33, BUN 27, Total bilirubin 1.5 (H), electrolytes stable.?Urinalysis: normal, no infection or proteinuria. CXR: Unchanged cardiomegaly and pulmonary vascular congestion; support lines and tubes in satisfactory position, no new effusion or infiltrate. Bowel function: The patient finally had a bowel movement; Reglan (metoclopramide) discontinued due to QTc prolongation and resolution of ileus.?GI/PEG/trach: Gastroenterology and surgery plan to proceed once hemodynamic and hematologic parameters stabilize further; procedures deferred.?Hemodialysis: scheduled for tomorrow.?Wound care: Ongoing wound care for bilateral lower-extremity ulcers; wound cultures pending. The patient remains critically ill but overall showing gradual stabilization. REVIEW OF SYSTEMS (Limited Intubated/Sedated) * General: Sedated, ventilated, critically ill but hemodynamically stable. * HEENT: ETT/OGT in place, pupils equal/reactive. * CV: Regular rhythm, no new murmurs, off pressors. * Resp: On mechanical ventilation, no acute distress. * GI: Soft abdomen, normoactive bowel sounds, recent BM. * : Anuric (ESRD on HD schedule). * Skin: Wounds on back and legs receiving daily care. * Neuro: Sedated, opens eyes to stimuli, intact pupillary reflexes. Objective vital signs Vital Sign Date Time Temp Pulse Resp B/P (MAP) Pulse Ox O2 Delivery O2 Flow Rate FiO2 06/16/25 11:39 75 12 98/49 (65) 100 30 06/16/25 08:15 Mechanical Ventilator+ 06/16/25 04:00 97.6 97.6 Total Intake and Output 06/15/25 06/15/25 06/16/25 15:00 23:00 07:00 Intake Total 596.628 ml 399.564 ml 215.378 ml Output Total 0 ml Balance 596.628 ml 399.564 ml 215.378 ml medications Current Medications Medications Dose Ordered Sig/Bandar Route Start Time Stop Time Status Last Admin Dose Admin Acetaminophen 650 mg Q6HP PRN PO 05/04/25 15:00 06/04/25 05:45 650 MG Sodium Chloride 10 ml QSHIFT@10,22 IV 05/19/25 22:00 06/16/25 10:55 10 ML Norepinephrine Bitartrate 32 mg/ Sodium Chloride 250 ml @ 0.938 mls/ hr Q24H IV 05/21/25 01:00 06/14/25 05:32 4.688 MLS/HR Pantoprazole Sodium 40 mg DAILY IV 05/21/25 10:00 06/16/25 10:55 40 MG Artificial Tears 1 drop Q6HP PRN EACHEYE 05/21/25 05:00 06/03/25 21:42 1 DROP Diagnostic Test (Pha) 1 strip Q6HR 05/23/25 00:00 06/16/25 06:21 1 STRIP Insulin Human Regular FOLLOW SLIDING SCALE Q6HR SC 05/23/25 00:00 06/14/25 13:21 2 UNITS Dextrose 50 ml UD IV 05/22/25 22:00 05/24/25 11:36 50 ML Albumin Human 100 ml @ 100 mls/hr PRN PRN IV 05/24/25 06:45 06/15/25 14:08 100 MLS/HR Folic Acid 1 mg DAILY PO 05/25/25 10:00 06/16/25 10:54 1 MG Multivitamins 1 tab DAILY PO 05/25/25 10:00 06/16/25 10:55 1 TAB Cyanocobalamin 1,000 mcg DAILY PO 05/25/25 10:00 06/16/25 10:54 1,000 MCG Pyridoxine HCl 50 mg DAILY PO 05/25/25 10:00 06/16/25 10:58 50 MG Ondansetron HCl 4 mg Q4HPRN PRN IV 05/25/25 18:00 Amiodarone HCl 200 mg Q12HR GT 05/29/25 10:00 06/16/25 10:54 200 MG Clopidogrel Bisulfate 75 mg DAILY NG 06/02/25 18:30 Cancel Albuterol 1.25 mg Q8HP PRN NEB 06/03/25 14:00 06/16/25 06:14 1.25 MG Acetylcysteine 200 mg Q8HR NEB 06/03/25 14:00 06/16/25 06:15 200 MG Melatonin 5 mg HS PO 06/04/25 22:00 06/09/25 21:27 5 MG Atorvastatin Calcium 40 mg HS PO 06/07/25 22:00 06/15/25 21:48 40 MG Albumin Human 100 ml @ 100 mls/hr ONCE PRN IV 06/09/25 08:45 06/09/25 11:15 100 MLS/HR Epoetin Norm-epbx 10,000 unit MWF@2100 SC 06/10/25 21:00 Hold 06/13/25 20:57 10,000 UNIT Midazolam HCl 50 ml @ 1 mls/hr Q24H IV 06/09/25 23:00 06/16/25 04:25 2 MLS/HR Fentanyl Citrate 250 ml @ 2.5 mls/hr Q24H IV 06/09/25 23:00 06/15/25 05:45 7.5 MLS/HR Vancomycin HCl 0 ml @ 0 mls/hr UD IV 06/11/25 08:45 Meropenem 50 ml @ 17 mls/hr Q12HR IV 06/13/25 14:00 06/16/25 10:55 17 MLS/HR Lactulose 30 ml TID PO 06/14/25 12:30 06/15/25 21:48 30 ML Sennosides 8.6 mg QHSP NG 06/15/25 22:00 10/8/25 21:48 8.6 MG Enteral Nutritional Formula 1,000 ml 60ML/HR NG 06/16/25 10:45 Examination General: Sedated, ventilated, critically ill, NAD. HEENT: ETT/OGT in situ; oral mucosa moist. Cardiac: S1S2 regular, no gallop/murmur, off vasopressors. Resp: Bilateral decreased air entry at bases, coarse crackles, FiO? 30 %. Abdomen: Soft, mild distension, non-tender, active bowel sounds. Extremities: Trace edema; L BKA stump well healed. Skin: Pressure wounds dressed; no new breakdown. Neuro: Sedated but withdraws to pain; pupils reactive. laboratory and microbiology Laboratory Tests 06/16/25 10:45 06/16/25 03:04 Test 06/16/25 03:04 Range/Units Serum Glucose 165 H 74-106 mg/dL Microbiology Date/Time Source Procedure Growth Status 06/11/25 12:50 Sputum Gram Stain - Final Complete 06/11/25 12:50 Respiratory Culture - Final Acinetobacter baumanii/haemol Complete 06/11/25 09:40 Blood Blood Culture - Final NO GROWTH AFTER 5 DAYS OF INCUBATION. Complete 06/11/25 08:30 Nose MRSA Screen - Final Complete 05/20/25 01:02 Urine - Leung Port Urine Culture - Final Yeast, not Dulce albicans Complete Problem List/Assessment/Plan Problem List/Assessment/Plan Assessment Critical, complex multi-organ failure patient. 1. Severe Sepsis / Pneumonia due to MDR organisms (MDR Acinetobacter baumannii, Stenotrophomonas, Pseudomonas, Enterobacter). On broad antimicrobials ).POA 2. Acute hypoxemic respiratory failure * On mechanical ventilation, FiO? 35%, PEEP 10, due to pneumonia and CHF. 3. 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 Cardiogenic shock secondary to ischemic cardiomyopathy ruled in * On norepinephrine and vasopressin drips, MAP target >65. 5. Atrial fibrillation previously on amiodarone drip; now rate-controlled. 6. Acute on Chronic HFrEF POA 7. PAD with Left foot gangrene s/p BKA and Status post stent placemnet stable surgical site. POA 9. Metabolic encephalopathy POA 10. History of DVT POA prophylaxis complicated by thrombocytopenia. 11. Poor prognosis given multi-organ dysfunction, infections, dialysis- dependence. 12. NSTEMI Type 2 POA ruled in * Secondary to ischemic cardiomyopathy with EF 20%, triple-vessel CAD, anemia, and critical illness. * Managed conservatively due to non-candidacy for CABG/PCI. Ischemic cardiomyopathy with severe LV systolic dysfunction (EF 20%) ruled in * LVEF 20% with anterior/apical wall hypokinesis; requiring vasopressors. Cardiogenic shock ruled in * Increasing norepinephrine requirement; evidence of poor perfusion. 13. Severe dysphagia with aspiration risk POA ruled in * PEG and tracheostomy planned for long-term support. 14. Anemia of chronic disease (CKD-related, status post-PRBC transfusion) ruled in * Stable Hgb 9.3. POA 8. Thrombocytopenia (improving) ruled in * , improving trend. 9. Type 2 diabetes mellitus, controlled POA ruled in. 10. Dyslipidemia and obesity POA chronic, continue management. Plan [facility] Respiratory Continue mechanical ventilation (AC-VC, FiO? 30 %, PEEP 10, TV 450, RR 12). * Maintain SpO? > 92 %. * Tracheostomy deferred until fully hemodynamically stable. * Pulmonology to continue ventilator management. * Daily ABG, CXR. Infectious Disease * Meropenem IV 1 g Q8H for MDR Acinetobacter (primary coverage). * Vancomycin IV for possible Gram-positive coverage (monitor troughs). * Monitor WBC, fever, and cultures daily. Cardiac * Daily TELEMTRY * Levophed discontinued; maintain MAP > 65 mmHg, SBP > 90 mmHg. * Monitor for arrhythmia (on amiodarone 200 mg daily). * Correct coagulopathy with vitamin K and FFP if INR >1.5 before trach. * Continue norepinephrine infusion; titrate for MAP at 60 mmHg. * Monitor lactate and perfusion markers. * Hold Plavix; * Continue Atorvastatin 40 mg HS. * Re-evaluate need for vasopressin post-HD. Renal * Hemodialysis with ultrafiltration today with PRBC transfusion during session. * Strict I/O, daily weights. * Avoid nephrotoxins. * Albumin 25% IV pre-dialysis as tolerated. GI / Nutrition * Reglan discontinued due to QT prolongation and bowel movement achieved. * Continue Lactulose 30 mL TID. * Hold PEG/trach until more stable per GI/Surgery. * Nepro tube feeds at 4050 mL/h, titrate as tolerated. * Pantoprazole 40 mg IV daily for ulcer prophylaxis. Hematology / Coagulation * Monitor CBC, PT/INR, PTT daily. * Transfuse PRBC if Hgb <7 g/dL or symptomatic. * Hold Plavix for 5 days pre-tracheostomy; resume 24 hr post-procedure if stable. * Plt ; transfuse if <30 K or <50 K before procedure. * INR stable; continue to monitor. * Hold pharmacologic DVT prophylaxis due to thrombocytopenia; continue SCDs. Endocrine / Metabolic * Insulin sliding scale; maintain BG 661551 mg/dL. * Monitor electrolytes and replete as needed. Sedation / Analgesia * Continue fentanyl and midazolam infusions. * RASS goal -1 Prophylaxis * DVT: SCDs only (no heparin due to thrombocytopenia). * GI: Pantoprazole daily. * Skin: Turn q2h, offload pressure points.* Continue wound care per WOCN protocol: saline irrigation, non-adherent dressings. * Monitor wound cultures and signs of infection. * Reposition q2h; offload pressure points. * CLABSI bundle: Daily line check. Discharge planning Care * Social work consult placed for LTAC placement Case discussed in detail with the attending physician, including the clinical presentation, diagnostic workup, and comprehensive management plan. The duration of time spent in direct critical care management of this patient, including evaluation, review of clinical data, coordination of care, and decision-making, was 45 minutes. Plan discussed with: Other (RN) My Orders My Orders Orders - FABRICIO CALVIN RESIDENT Procedure Category Date Status Time * [employer] Professor CONS 06/15/25 Transmitted Consult Chest Xray 1 View XY 06/16/25 Resulted 04:00 Abg W/ Co-Ox RT 06/16/25 Logged 04:00 Hemoglobin & LAB 06/16/25 Logged Hematocrit 22:00 Hemoglobin & LAB 06/17/25 Verified Hematocrit 10:00 Nutritional PHA 06/16/25 In Process Supplements (Nepro 10:45 Phosphorus LAB 06/16/25 In Process 10:37 Wound Culture W/ Gs EUGENIO 06/16/25 Uncollected 11:34 Wound Dressing: SALVADOR 06/16/25 In Process 11:34 Complete Blood Count LAB 06/17/25 Verified 04:00 Comprehensive LAB 06/17/25 Verified Metabolic Panel 04:00 Chest Xray 1 View XY 06/17/25 Logged 04:00 Abg W/ Co-Ox RT 06/17/25 Logged 04:00 Dietary Evaluation Review Comments: 1) [facility] diet 2) Armen 1 pk BID, MVI w/ minerals 1 tab daily, VitC 500mg BID, Zinc sulfate 220mg BID x 10 days 3) Monitor NPO status, lab values, weight trend, and I/O Expected Outcomes/Goals: To meet >75% estimated needs Wound to improve Fu 2-3 days Date of Service: Jun 16, 2025 Billing Provider: LAUREN MA MD Common Visit Codes: [id number] CARE 30-74 MIN FABRICIO CALVIN RESIDENT Jun 16, 2025 11:59 LAUREN MA MD Jun 16, 2025 20:04
[2025-06-16] MEDS: MAGNESIUM SULFATE 1GM/100ML 100 ML IV ONE (13:14)
[2025-06-16 13:21] LABS: Urine Budding Yeast OCCASIONAL /hpf (None Seen); Urine Protein, UAD 2+ (Negative)
--- NOTE | 2025-06-16 13:38 | DVHPN2 ---
Progress Note Date Seen: Jun 16, 2025 Has the PT tested + for MRSA If YES, has PT been informed?: No Medical Necessity Reason Pt with a Central, PICC or Fol: Yes The following are medically ne: PICC Line, Leung Catheter Subjective Review of Systems: RESPIRATORY:Abnormal Other Systems: Patient seen and examined by myself today in follow-up, patient trached on the ventilator Objective vital signs Vital Sign Date Time Temp Pulse Resp B/P (MAP) Pulse Ox O2 Delivery O2 Flow Rate FiO2 06/16/25 11:39 75 12 98/49 (65) 100 30 06/16/25 08:15 Mechanical Ventilator+ 06/16/25 04:00 97.6 97.6 Total Intake and Output 06/15/25 06/15/25 06/16/25 15:00 23:00 07:00 Intake Total 596.628 ml 399.564 ml 215.378 ml Output Total 0 ml Balance 596.628 ml 399.564 ml 215.378 ml medications Current Medications Medications Dose Ordered Sig/Bandar Route Start Time Stop Time Status Last Admin Dose Admin Acetaminophen 650 mg Q6HP PRN PO 05/04/25 15:00 06/04/25 05:45 650 MG Sodium Chloride 10 ml QSHIFT@10,22 IV 05/19/25 22:00 06/16/25 10:55 10 ML Norepinephrine Bitartrate 32 mg/ Sodium Chloride 250 ml @ 0.938 mls/ hr Q24H IV 05/21/25 01:00 06/14/25 05:32 4.688 MLS/HR Pantoprazole Sodium 40 mg DAILY IV 05/21/25 10:00 06/16/25 10:55 40 MG Artificial Tears 1 drop Q6HP PRN EACHEYE 05/21/25 05:00 06/03/25 21:42 1 DROP Diagnostic Test (Pha) 1 strip Q6HR 05/23/25 00:00 06/16/25 13:07 1 STRIP Insulin Human Regular FOLLOW SLIDING SCALE Q6HR SC 05/23/25 00:00 06/16/25 13:12 4 UNITS Dextrose 50 ml UD IV 05/22/25 22:00 05/24/25 11:36 50 ML Albumin Human 100 ml @ 100 mls/hr PRN PRN IV 05/24/25 06:45 06/15/25 14:08 100 MLS/HR Folic Acid 1 mg DAILY PO 05/25/25 10:00 06/16/25 10:54 1 MG Multivitamins 1 tab DAILY PO 05/25/25 10:00 06/16/25 10:55 1 TAB Cyanocobalamin 1,000 mcg DAILY PO 05/25/25 10:00 06/16/25 10:54 1,000 MCG Pyridoxine HCl 50 mg DAILY PO 05/25/25 10:00 06/16/25 10:58 50 MG Ondansetron HCl 4 mg Q4HPRN PRN IV 05/25/25 18:00 Amiodarone HCl 200 mg Q12HR GT 05/29/25 10:00 06/16/25 10:54 200 MG Clopidogrel Bisulfate 75 mg DAILY NG 06/02/25 18:30 Cancel Albuterol 1.25 mg Q8HP PRN NEB 06/03/25 14:00 06/16/25 06:14 1.25 MG Acetylcysteine 200 mg Q8HR NEB 06/03/25 14:00 06/16/25 06:15 200 MG Melatonin 5 mg HS PO 06/04/25 22:00 06/09/25 21:27 5 MG Atorvastatin Calcium 40 mg HS PO 06/07/25 22:00 06/15/25 21:48 40 MG Albumin Human 100 ml @ 100 mls/hr ONCE PRN IV 06/09/25 08:45 06/09/25 11:15 100 MLS/HR Epoetin Norm-epbx 10,000 unit MWF@2100 SC 06/10/25 21:00 Hold 06/13/25 20:57 10,000 UNIT Midazolam HCl 50 ml @ 1 mls/hr Q24H IV 06/09/25 23:00 06/16/25 04:25 2 MLS/HR Fentanyl Citrate 250 ml @ 2.5 mls/hr Q24H IV 06/09/25 23:00 06/15/25 05:45 7.5 MLS/HR Vancomycin HCl 0 ml @ 0 mls/hr UD IV 06/11/25 08:45 Meropenem 50 ml @ 17 mls/hr Q12HR IV 06/13/25 14:00 06/16/25 10:55 17 MLS/HR Lactulose 30 ml TID PO 06/14/25 12:30 06/15/25 21:48 30 ML Sennosides 8.6 mg QHSP NG 06/15/25 22:00 06/15/25 21:48 8.6 MG Enteral Nutritional Formula 1,000 ml 60ML/HR NG 06/16/25 10:45 Examination: LUNGS:Normal, CVS:Normal, MSK:Abnormal laboratory and microbiology Laboratory Tests 06/16/25 10:45 06/16/25 03:04 Test 06/16/25 03:04 Range/Units Serum Glucose 165 H 74-106 mg/dL Microbiology Date/Time Source Procedure Growth Status 06/11/25 12:50 Sputum Gram Stain - Final Complete 06/11/25 12:50 Respiratory Culture - Final Acinetobacter baumanii/haemol Complete 06/11/25 09:40 Blood Blood Culture - Final NO GROWTH AFTER 5 DAYS OF INCUBATION. Complete 06/11/25 08:30 Nose MRSA Screen - Final Complete 05/20/25 01:02 Urine - Leung [place] Urine Culture - Final Yeast, not Dulce albicans Complete Problem List/Assessment/Plan Problem List/Assessment/Plan Acute kidney injury superimposed Chronic Kidney Disease stage IV secondary hemodynamic mediated, FeNa < 1% requiring intermittent hemodialysis Chronic kidney disease stage IV followed by Dr. Ponce Gangrene left foot, status post left below-knee amputation 05/20 Left lower extremity DVT Diabetes mellitus type 2 Chronic diastolic Congestive heart failure NSTEMI Hyponatremia due to excess H2O Dropping hemoglobin Anemia due to blood loss Metabolic acidosis Septic shock History of testicular cancer Cellulitis lower extremity Hypokalemia Recommendations Hemodialysis tomorrow, use no heparin Epogen 29953 subQ 3 times weekly Albumin 25% p.r.n. hemodialysis Strict I&Os kidney ultrasound reported bilateral small echogenic kidneys, no obstruction Fluid restrictions KCL replacement IV pressors for blood pressure support Packed red blood cell transfusion p.r.n. Poor prognosis8 Total care time 25 minutes minute Plan discussed with: Other (Nurse) Dietary Evaluation Review Comments: 1) Advance to [facility] 75gm + cardiac diet 2) Armen 1 pk BID, MVI w/ minerals 1 tab daily, VitC 500mg BID, Zinc sulfate 220mg BID x 10 days 3) Monitor NPO status, lab values, weight trend, and I/O Expected Outcomes/Goals: To meet >75% estimated needs Wound to improve Fu 2-3 days QUOC QUINONEZ MD Jun 16, 2025 13:38
[2025-06-16] MEDS: POTASSIUM CHL 20MEQ/100ML 100 ML IV SCH (15:19)
--- NOTE | 2025-06-16 15:58 | DVHPN2 ---
Progress Note - Dictate Date Seen: Jun 16, 2025 Medical Necessity Reason Pt with a Central, PICC or Fol: Yes The following are medically ne: PICC Line, Leung Catheter vital signs Vital Sign Date Time Temp Pulse Resp B/P (MAP) Pulse Ox O2 Delivery O2 Flow Rate FiO2 06/16/25 15:40 83/43 06/16/25 14:09 70 12 96 30 06/16/25 12:15 Mechanical Ventilator+ 06/16/25 12:00 97.4 97.4 Total Intake and Output 06/15/25 06/15/25 06/16/25 15:00 23:00 07:00 Intake Total 596.628 ml 399.564 ml 215.378 ml Output Total 0 ml Balance 596.628 ml 399.564 ml 215.378 ml medications Current Medications Medications Dose Ordered Sig/Bandar Route Start Time Stop Time Status Last Admin Dose Admin Acetaminophen 650 mg Q6HP PRN PO 05/04/25 15:00 06/04/25 05:45 650 MG Sodium Chloride 10 ml QSHIFT@10,22 IV 05/19/25 22:00 06/16/25 10:55 10 ML Norepinephrine Bitartrate 32 mg/ Sodium Chloride 250 ml @ 0.938 mls/ hr Q24H IV 05/21/25 01:00 06/14/25 05:32 4.688 MLS/HR Pantoprazole Sodium 40 mg DAILY IV 05/21/25 10:00 06/16/25 10:55 40 MG Artificial Tears 1 drop Q6HP PRN EACHEYE 05/21/25 05:00 06/03/25 21:42 1 DROP Diagnostic Test (Pha) 1 strip Q6HR 05/23/25 00:00 06/16/25 13:07 1 STRIP Insulin Human Regular FOLLOW SLIDING SCALE Q6HR SC 05/23/25 00:00 06/16/25 13:12 4 UNITS Dextrose 50 ml UD IV 05/22/25 22:00 05/24/25 11:36 50 ML Albumin Human 100 ml @ 100 mls/hr PRN PRN IV 05/24/25 06:45 06/15/25 14:08 100 MLS/HR Folic Acid 1 mg DAILY PO 05/25/25 10:00 06/16/25 10:54 1 MG Multivitamins 1 tab DAILY PO 05/25/25 10:00 06/16/25 10:55 1 TAB Cyanocobalamin 1,000 mcg DAILY PO 05/25/25 10:00 06/16/25 10:54 1,000 MCG Pyridoxine HCl 50 mg DAILY PO 05/25/25 10:00 06/16/25 10:58 50 MG Ondansetron HCl 4 mg Q4HPRN PRN IV 05/25/25 18:00 Amiodarone HCl 200 mg Q12HR GT 05/29/25 10:00 06/16/25 10:54 200 MG Clopidogrel Bisulfate 75 mg DAILY NG 06/02/25 18:30 Cancel Albuterol 1.25 mg Q8HP PRN NEB 06/03/25 14:00 06/16/25 14:08 1.25 MG Acetylcysteine 200 mg Q8HR NEB 06/03/25 14:00 06/16/25 14:08 200 MG Melatonin 5 mg HS PO 06/04/25 22:00 06/09/25 21:27 5 MG Atorvastatin Calcium 40 mg HS PO 06/07/25 22:00 06/15/25 21:48 40 MG Albumin Human 100 ml @ 100 mls/hr ONCE PRN IV 06/09/25 08:45 06/09/25 11:15 100 MLS/HR Epoetin Norm-epbx 10,000 unit MWF@2100 SC 06/10/25 21:00 Hold 06/13/25 20:57 10,000 UNIT Midazolam HCl 50 ml @ 1 mls/hr Q24H IV 06/09/25 23:00 06/16/25 04:25 2 MLS/HR Fentanyl Citrate 250 ml @ 2.5 mls/hr Q24H IV 06/09/25 23:00 06/16/25 15:40 7.5 MLS/HR Vancomycin HCl 0 ml @ 0 mls/hr UD IV 06/11/25 08:45 Meropenem 50 ml @ 17 mls/hr Q12HR IV 06/13/25 14:00 06/16/25 10:55 17 MLS/HR Lactulose 30 ml TID PO 06/14/25 12:30 06/15/25 21:48 30 ML Sennosides 8.6 mg QHSP NG 06/15/25 22:00 06/15/25 21:48 8.6 MG Enteral Nutritional Formula 1,000 ml 60ML/HR NG 06/16/25 10:45 Potassium Chloride 100 ml @ 50 mls/hr Q2H IV 06/16/25 13:45 06/16/25 17:44 06/16/25 15:19 50 MLS/HR Vasopressin 20 units/Sodium Chloride 100 ml @ 9 mls/hr Q11H7M IV 06/16/25 16:00 UNV laboratory and microbiology Laboratory Tests 06/16/25 10:45 06/16/25 03:04 Test 06/16/25 03:04 Range/Units Serum Glucose 165 H 74-106 mg/dL Assessment/Plan Impression Acute hypoxemic respiratory failure Atelectasis Fluid overload Pleural effusions Patient seen and examined in the ICU Events on the ventilator s/p reintubation ac volume control peep 7 fi02 30% awaiting tracheostomy abg: reviewed CXR reviewed Management plan Vent support Titrate to maintain sats 90% or above Sedation for vent synchrony Continue antibiotics F/u cultures consider bronchoscopy Bronchodilators diurese/HD Monitor renal function Monitor electrolytes Supplement as needed Pressors as needed for hemodynamic support To maintain a mean arterial pressure of 65 mmHg full code awaiting tracheostomy Critical care time 35 minutes Dietary Evaluation Review Comments: 1) Advance to CCHO 75gm + cardiac diet 2) Armen 1 pk BID, MVI w/ minerals 1 tab daily, VitC 500mg BID, Zinc sulfate 220mg BID x 10 days 3) Monitor NPO status, lab values, weight trend, and I/O Expected Outcomes/Goals: To meet >75% estimated needs Wound to improve Fu 2-3 days Plan discussed with: Other (Rn) DELROY REDD MD Jun 16, 2025 15:58
[2025-06-16] MEDS: VASOPRESSIN 20 UNITS in SODIUM CHL 0.9% 99 ML IV SCH (16:57)
[2025-06-16] MEDS: VANCOMYCIN 500mg/100mL 100 ML IV ONE (17:01)
[2025-06-16] MEDS: NOREPINEPHRINE BITARTRATE 32 MG in SODIUM CHL 0.9% 218 ML IV SCH (18:40)
--- NOTE | 2025-06-16 22:11 | DVHPN2 ---
Progress Note - Dictate Date Seen: Jun 16, 2025 Has the PT tested + for MRSA If YES, has PT been informed?: No Medical Necessity Reason Pt with a Central, PICC or Fol: Yes The following are medically ne: PICC Line, Leung Catheter Subjective Critically ill patient with NSTEMI Type 2, EF 20%, shock requiring vasopressors, ESRD on HD, ventilator dependence, Patient had a drop in hemoglobin to 6.7 yesterday, he received 1 unit PRBC ( total 6 u prbc ) He has been stable between 8 and 8.2 Brown stool no bleeding vital signs Vital Sign Date Time Temp Pulse Resp B/P (MAP) Pulse Ox O2 Delivery O2 Flow Rate FiO2 06/16/25 19:15 74 12 95/49 (64) 100 06/16/25 18:36 30 06/16/25 18:00 Mechanical Ventilator+ 06/16/25 16:00 97.4 97.4 Total Intake and Output 06/15/25 06/15/25 06/16/25 15:00 23:00 07:00 Intake Total 596.628 ml 399.564 ml 215.378 ml Output Total 0 ml Balance 596.628 ml 399.564 ml 215.378 ml medications Current Medications Medications Dose Ordered Sig/Bandar Route Start Time Stop Time Status Last Admin Dose Admin Acetaminophen 650 mg Q6HP PRN PO 05/04/25 15:00 06/04/25 05:45 650 MG Sodium Chloride 10 ml QSHIFT@10,22 IV 05/19/25 22:00 06/16/25 10:55 10 ML Pantoprazole Sodium 40 mg DAILY IV 05/21/25 10:00 06/16/25 10:55 40 MG Artificial Tears 1 drop Q6HP PRN EACHEYE 05/21/25 05:00 06/03/25 21:42 1 DROP Diagnostic Test (Pha) 1 strip Q6HR 05/23/25 00:00 06/16/25 17:40 1 STRIP Insulin Human Regular FOLLOW SLIDING SCALE Q6HR SC 05/23/25 00:00 06/16/25 13:12 4 UNITS Dextrose 50 ml UD IV 05/22/25 22:00 05/24/25 11:36 50 ML Albumin Human 100 ml @ 100 mls/hr PRN PRN IV 05/24/25 06:45 06/15/25 14:08 100 MLS/HR Folic Acid 1 mg DAILY PO 05/25/25 10:00 06/16/25 10:54 1 MG Multivitamins 1 tab DAILY PO 05/25/25 10:00 06/16/25 10:55 1 TAB Cyanocobalamin 1,000 mcg DAILY PO 05/25/25 10:00 06/16/25 10:54 1,000 MCG Pyridoxine HCl 50 mg DAILY PO 05/25/25 10:00 06/16/25 10:58 50 MG Ondansetron HCl 4 mg Q4HPRN PRN IV 05/25/25 18:00 Amiodarone HCl 200 mg Q12HR GT 05/29/25 10:00 06/16/25 10:54 200 MG Clopidogrel Bisulfate 75 mg DAILY NG 06/02/25 18:30 Cancel Albuterol 1.25 mg Q8HP PRN NEB 06/03/25 14:00 06/16/25 18:33 1.25 MG Acetylcysteine 200 mg Q8HR NEB 06/03/25 14:00 06/16/25 18:33 200 MG Melatonin 5 mg HS PO 06/04/25 22:00 06/09/25 21:27 5 MG Atorvastatin Calcium 40 mg HS PO 06/07/25 22:00 06/15/25 21:48 40 MG Albumin Human 100 ml @ 100 mls/hr ONCE PRN IV 06/09/25 08:45 06/09/25 11:15 100 MLS/HR Epoetin Norm-epbx 10,000 unit MWF@2100 SC 06/10/25 21:00 Hold 06/13/25 20:57 10,000 UNIT Midazolam HCl 50 ml @ 1 mls/hr Q24H IV 06/09/25 23:00 06/16/25 04:25 2 MLS/HR Fentanyl Citrate 250 ml @ 2.5 mls/hr Q24H IV 06/09/25 23:00 06/16/25 15:40 7.5 MLS/HR Vancomycin HCl 0 ml @ 0 mls/hr UD IV 06/11/25 08:45 Meropenem 50 ml @ 17 mls/hr Q12HR IV 06/13/25 14:00 06/16/25 10:55 17 MLS/HR Lactulose 30 ml TID PO 06/14/25 12:30 06/15/25 21:48 30 ML Sennosides 8.6 mg QHSP NG 06/15/25 22:00 06/15/25 21:48 8.6 MG Enteral Nutritional Formula 1,000 ml 60ML/HR NG 06/16/25 10:45 Vasopressin 20 units/Sodium Chloride 100 ml @ 9 mls/hr Q11H7M IV 06/16/25 16:00 06/16/25 16:57 9 MLS/HR Norepinephrine Bitartrate 32 mg/ Sodium Chloride 250 ml @ 0.469 mls/ hr Q24H IV 06/16/25 18:15 06/16/25 18:40 1.406 MLS/HR objective General Appearance: Other (Intubated, on vent.) HEENT: Atraumatic, PERRLA Lungs: Clear to auscultation, Other (On vent; transmitted breath sounds bilaterally. Decreased air entry bilaterally. No wheezing or rhonchi. Bibasilar crackles.) Cardiovascular: Normal S1, Normal S2, Other (Atrial fibrillation) Abdomen: Normal bowel sounds, Soft, No tenderness, No hepatospenomegaly Genitourinary: No Apparent Abnormalities (Leung catheter) Musculoskeletal: Other Extremities: Normal pulses, Other (Left BKA stump intact, trace edema ) Neuro: Other (Sedated.) laboratory and microbiology Laboratory Tests 06/16/25 03:04 Test 06/16/25 03:04 Range/Units Serum Glucose 165 H 74-106 mg/dL Problems(with codes): (1) Acute kidney injury superimposed on CKD (2) Eschar of heel (3) Foot osteomyelitis, right (4) Triple vessel coronary artery disease (5) Generalized weakness Prognosis Plan Patient's tracheostomy was deferred due to scheduling issues Patient is peep has been down to five We will keep him NPO after midnight to decide if he is going to get a tracheostomy or a PEG tube tomorrow Discussed with ICU nurse Dietary Evaluation Review Comments: 1) Advance to CCHO 75gm + cardiac diet 2) Armen 1 pk BID, MVI w/ minerals 1 tab daily, VitC 500mg BID, Zinc sulfate 220mg BID x 10 days 3) Monitor NPO status, lab values, weight trend, and I/O Expected Outcomes/Goals: To meet >75% estimated needs Wound to improve Fu 2-3 days Plan discussed with: Other (ICU Nurse) GO BERGMAN MD Jun 16, 2025 22:11
[2025-06-16 22:18] LABS: Hematocrit 32.9 % (41.0-53.0); Hemoglobin 10.8 g/dL (13.5-17.5)
[2025-06-17] VITALS (107 sets, daily range): BP systolic 82–138; BP diastolic 36–66; PULSE 59–85; RESP 10–16; TEMP 97–97.8; O2SAT 93–100
[2025-06-17 03:53] LABS: Hematocrit 27.8 % (41.0-53.0); Hemoglobin 8.9 g/dL (13.5-17.5); Mean Corpuscular Hemoglobin 30.5 pg (28.0-32.0); Mean Corpuscular Volume 94.8 fL (80.0-100.0); Nucleated Red Blood Cells % 0.3 %
[2025-06-17 04:08] LABS: Alanine Aminotransferase 13 U/L (7-40); Albumin 3.5 g/dL (3.2-4.8); Alkaline Phosphatase 90 U/L (46-116); Anion Gap 13 (5-15); BUN/Creatinine Ratio 7.8 (10.0-20.0); Blood Urea Nitrogen 20 mg/dL (9-23); Calcium 9.7 mg/dL (8.7-10.4); Carbon Dioxide 27 mmol/L (20-31); Chloride 102 mmol/L (98-107); Potassium 4.6 mmol/L (3.5-5.1); Sodium 142 mmol/L (136-145); Total Protein 5.8 g/dL (5.7-8.2)
[2025-06-17 04:09] LABS: Bilirubin, Total 1.1 mg/dL (0.2-1.0)
[2025-06-17 04:25] LABS: Glucose 202 mg/dL (74-106)
--- NOTE | 2025-06-17 05:46 | DVH ---
CHEST RADIOGRAPH Indication: Acute hypoxic respiratory failure Technique: Single frontal view of the chest was obtained COMPARISON: XY CHEST XRAY 1 VIEW on DOS: 06/16/25, XY CHEST XRAY 1 VIEW on DOS: 06/15/25, XY CHEST XRAY 1 VIEW on DOS: 06/14/25, XY CHEST PORTABLE on DOS: 06/13/25, XY CHEST XRAY 1 VIEW on DOS: 06/12/25 FINDINGS: Lines and Tubes: Unchanged. Lungs: Slight interval improvement in bilateral pleural effusions and bibasilar pulmonary airspace di sease. No pneumothorax. Cardiomediastinal contours: Cardiomegaly. Bones: Unremarkable IMPRESSION: 1. Slight interval improvement in bilateral pleural effusions and bibasilar pulmonary airspace diseas e. 2. Cardiomegaly. 3. Lines and tubes unchanged.
[2025-06-17 06:08] LABS: Anisocytosis Moderate
[2025-06-17 07:42] LABS: Base Excess -1.7 mmol/L (-2.0-3.0)
[2025-06-17 10:25] LABS: Hematocrit 28.7 % (41.0-53.0); Hemoglobin 9.5 g/dL (13.5-17.5)
[2025-06-17] MEDS: SODIUM CHL 0.9% 1000 ML BAG XX ONE (11:10)
--- NOTE | 2025-06-17 11:58 | DVHPN2 ---
Progress Note Date Seen: Jun 17, 2025 Has the PT tested + for MRSA If YES, has PT been informed?: No Medical Necessity Reason Pt with a Central, PICC or Fol: Yes The following are medically ne: PICC Line, Leung Catheter Subjective Review of Systems: RESPIRATORY:Abnormal Other Systems: Patient seen and examined by myself today in follow-up, patient remained trached on the ventilator Patient examined hemodialysis, blood pressure stable Objective vital signs Vital Sign Date Time Temp Pulse Resp B/P (MAP) Pulse Ox O2 Delivery O2 Flow Rate FiO2 06/17/25 09:55 79 12 105/57 (73) 98 30 06/17/25 08:15 Mechanical Ventilator+ 06/17/25 04:15 97.8 97.8 Total Intake and Output 06/16/25 06/16/25 06/17/25 15:00 23:00 07:00 Intake Total 220.159 ml 578.945 ml 151.597 ml Output Total 110 ml 0 ml Balance 220.159 ml 468.945 ml 151.597 ml medications Current Medications Medications Dose Ordered Sig/Bandar Route Start Time Stop Time Status Last Admin Dose Admin Acetaminophen 650 mg Q6HP PRN PO 05/04/25 15:00 06/04/25 05:45 650 MG Sodium Chloride 10 ml QSHIFT@10,22 IV 05/19/25 22:00 06/17/25 11:08 10 ML Pantoprazole Sodium 40 mg DAILY IV 05/21/25 10:00 06/17/25 11:08 40 MG Artificial Tears 1 drop Q6HP PRN EACHEYE 05/21/25 05:00 06/03/25 21:42 1 DROP Diagnostic Test (Pha) 1 strip Q6HR 05/23/25 00:00 06/17/25 11:32 1 STRIP Insulin Human Regular FOLLOW SLIDING SCALE Q6HR SC 05/23/25 00:00 06/16/25 13:12 4 UNITS Dextrose 50 ml UD IV 05/22/25 22:00 05/24/25 11:36 50 ML Albumin Human 100 ml @ 100 mls/hr PRN PRN IV 05/24/25 06:45 06/15/25 14:08 100 MLS/HR Folic Acid 1 mg DAILY PO 05/25/25 10:00 06/16/25 10:54 1 MG Multivitamins 1 tab DAILY PO 05/25/25 10:00 06/16/25 10:55 1 TAB Cyanocobalamin 1,000 mcg DAILY PO 05/25/25 10:00 06/16/25 10:54 1,000 MCG Pyridoxine HCl 50 mg DAILY PO 05/25/25 10:00 06/16/25 10:58 50 MG Ondansetron HCl 4 mg Q4HPRN PRN IV 05/25/25 18:00 Amiodarone HCl 200 mg Q12HR GT 05/29/25 10:00 06/16/25 22:41 200 MG Clopidogrel Bisulfate 75 mg DAILY NG 06/02/25 18:30 Cancel Albuterol 1.25 mg Q8HP PRN NEB 06/03/25 14:00 06/17/25 06:16 1.25 MG Acetylcysteine 200 mg Q8HR NEB 06/03/25 14:00 06/17/25 06:16 200 MG Melatonin 5 mg HS PO 06/04/25 22:00 06/09/25 21:27 5 MG Atorvastatin Calcium 40 mg HS PO 06/07/25 22:00 06/16/25 22:42 40 MG Albumin Human 100 ml @ 100 mls/hr ONCE PRN IV 06/09/25 08:45 06/09/25 11:15 100 MLS/HR Epoetin Norm-epbx 10,000 unit MWF@2100 SC 06/10/25 21:00 Hold 06/13/25 20:57 10,000 UNIT Midazolam HCl 50 ml @ 1 mls/hr Q24H IV 06/09/25 23:00 06/16/25 04:25 2 MLS/HR Fentanyl Citrate 250 ml @ 2.5 mls/hr Q24H IV 06/09/25 23:00 06/16/25 15:40 7.5 MLS/HR Vancomycin HCl 0 ml @ 0 mls/hr UD IV 06/11/25 08:45 Meropenem 50 ml @ 17 mls/hr Q12HR IV 06/13/25 14:00 06/17/25 11:08 17 MLS/HR Lactulose 30 ml TID PO 06/14/25 12:30 06/15/25 21:48 30 ML Sennosides 8.6 mg QHSP NG 06/15/25 22:00 06/15/25 21:48 8.6 MG Enteral Nutritional Formula 1,000 ml 60ML/HR NG 06/16/25 10:45 Vasopressin 20 units/Sodium Chloride 100 ml @ 9 mls/hr Q11H7M IV 06/16/25 16:00 06/17/25 01:48 9 MLS/HR Norepinephrine Bitartrate 32 mg/ Sodium Chloride 250 ml @ 0.469 mls/ hr Q24H IV 06/16/25 18:15 06/16/25 18:40 1.406 MLS/HR Examination: LUNGS:Normal, CVS:Normal, MSK:Normal laboratory and microbiology Laboratory Tests 06/17/25 10:01 06/17/25 03:06 Test 06/17/25 03:06 Range/Units Serum Glucose 202 H 74-106 mg/dL Microbiology Date/Time Source Procedure Growth Status 06/16/25 12:31 Urine - Midstream Clean Catch Urine Culture - Preliminary Resulted 06/11/25 12:50 Sputum Gram Stain - Final Complete 06/11/25 12:50 Respiratory Culture - Final Acinetobacter baumanii/haemol Complete 06/11/25 09:40 Blood Blood Culture - Final NO GROWTH AFTER 5 DAYS OF INCUBATION. Complete 06/11/25 08:30 Nose MRSA Screen - Final Complete Problem List/Assessment/Plan Problem List/Assessment/Plan Acute kidney injury superimposed Chronic Kidney Disease stage IV secondary hemodynamic mediated, FeNa < 1%, oligo anuric requiring intermittent hemodialysis Chronic kidney disease stage IV followed by Dr. Ponce Gangrene left foot, status post left below-knee amputation 05/20 Left lower extremity DVT Diabetes mellitus type 2 Chronic diastolic Congestive heart failure NSTEMI Hyponatremia due to excess H2O, resolved with hemodialysis Dropping hemoglobin Anemia due to blood loss Metabolic acidosis Septic shock History of testicular cancer Cellulitis lower extremity Hypokalemia, replace Recommendations Continue with UF 1 L as tolerated, use no heparin Epogen 92502 subQ 3 times weekly Albumin 25% p.r.n. hemodialysis Strict I&Os kidney ultrasound reported bilateral small echogenic kidneys, no obstruction Fluid restrictions KCL replacement IV pressors for blood pressure support Packed red blood cell transfusion p.r.n. Nepro enteral feeding per dietitian Poor prognosis Total care time 25 minutes minute Plan discussed with: Other (Nurse) My Orders My Orders Orders - QUOC QUINONEZ MD Procedure Category Date Status Time Hemodialysis Orders ORDERS 06/17/25 Transmitted 07:00 Dialysis Nursing [facility] 06/17/25 In Process Message 07:00 Document Fluid Input [facility]OR 06/17/25 In Process And Outpu 07:00 Epoetin Norm-Epbx PHA 06/17/25 In Process (Retacrit) 21:00 Sodium Chl 0.9% PHA 06/16/25 In Process (So... W/Vasopressin 16:00 Dietary Evaluation Review Comments: 1) [facility] 2) Armen 1 pk BID, MVI w/ minerals 1 tab daily, VitC 500mg BID, Zinc sulfate 220mg BID x 10 days 3) Monitor NPO status, lab values, weight trend, and I/O Expected Outcomes/Goals: To meet >75% estimated needs Wound to improve Fu 2-3 days QUOC QUINONEZ MD Jun 17, 2025 11:58
[2025-06-17] MEDS: VANCOMYCIN 500mg/100mL 100 ML IV ONE (14:00)
--- NOTE | 2025-06-17 14:34 | DVHINCON2 ---
Date of service: Jun 17, 2025 Family History: Cerebrovascular accident (CVA) G8 MOTHER FH: CABG (coronary artery bypass surgery) G8 FATHER FH: liver disease G8 FATHER Hepatitis C G8 FATHER Allergies: Coded Allergies: NO KNOWN ALLERGIES (Unverified , 06/12/21) Home Meds Active Scripts Linezolid (Zyvox) 600 Mg Tab, 600 MG PO BID for 7 Days, #14 TAB Prov:[facility] 04/28/25 Pantoprazole Sodium Sesquihydr (Pantoprazole Sodium) 40 Mg Tab, 40 MG PO DAILY for 30 Days, #30 TAB Prov:[facility] 04/28/25 Nutritional Supplements (Glucerna Carbsteady) 1 Liq Liq, 240 ML PO TIDWM for 30 Days, #30 LIQ Prov:[facility] 04/28/25 Apixaban Base (ELIQUIS) 5 Mg Tab, 5 MG PO BID for 30 Days, #60 TAB Prov:[facility] 04/28/25 Atorvastatin Calcium (ATORVASTATIN CALCIUM) 20 Mg Tab, 20 MG PO HS for 30 Days, #30 TAB Prov:[facility] 04/28/25 Tamsulosin Hcl (Tamsulosin Hcl) 0.4 Mg Cap, 0.4 MG PO QPM for 30 Days, #30 MG Prov:[facility] 04/28/25 Amlodipine Besylate (Amlodipine Besylate) 5 Mg Tab, 1 TAB PO DAILY for 30 Days, #30 TAB Prov:[facility] 04/28/25 Aspirin (Aspirin Adult Low Dose) 81 Mg Tab, 1 TAB PO DAILY for 30 Days, #30 TAB Prov:[facility] 04/28/25 Hydrocodone-Acetaminophen (Hydrocodone Bitartrate/AC 5-325 mg) 1 Tab Tab, 1 TAB PO BID PRN, #40 TAB Prov:ADARSH WILLIS MD 03/04/25 Rifampin (Rifampin) 300 Mg Cap, 300 MG PO BID, #90 CAP Prov:ADARSH WILLIS MD 03/04/25 Reported Medications Carvedilol (Carvedilol) 12.5 Mg Tab, 1 TAB PO BID for 30 Days, #60 05/06/25 Hydrochlorothiazide (Hydrochlorothiazide) 25 Mg Tab, 50 MG PO DAILY for 14 Days, #14 04/11/25 Glipizide (Glipizide) 5 Mg Tab, 1 TAB PO BID for 14 Days, #28 04/11/25 Furosemide (Furosemide) 40 Mg Tab, 1 TAB PO DAILY for 90 Days, #90 02/24/25 Calcium Carbonate-Cholecalcife (Calcium 500-10 mg-Mcg) 1 Chw Chw, 1 TAB PO BID for 30 Days, #60 02/24/25 Current Medications Current Medications Medications (Trade) Dose Ordered Sig/Bandar Route PRN Reason Start Time Stop Time Status Last Admin Vasopressin 20 units/Sodium Chloride 100 ml @ 9 mls/hr Q11H7M IV 06/16/25 16:00 06/17/25 13:37 Norepinephrine Bitartrate 32 mg/ Sodium Chloride 250 ml @ 0.469 mls/ hr Q24H IV 06/16/25 18:15 06/16/25 18:40 Vital Signs Vital Signs Date Time Temp Pulse Resp B/P (MAP) Pulse Ox O2 Delivery O2 Flow Rate FiO2 06/17/25 13:57 70 12 109/53 (71) 100 30 06/17/25 10:00 Mechanical Ventilator+ 06/17/25 08:00 97.0 97.0 Labs/Diagnostic Data Labs Test 06/17/25 11:29 06/17/25 10:01 06/17/25 08:48 06/17/25 07:36 Range/Units POC Glucose 163 H 70-106 mg/dl Hemoglobin 9.5 L 13.5-17.5 g/dL Hematocrit 28.7 L 41.0-53.0 % Cortisol AM Sample 27.34 H 5.27-22.45 ug/dL Random Vancomycin Level 10.6 H 5-10 ug/mL Blood Gas Specimen Type Arterial Blood Gas Sample Site Right radial Blood Gas Patient Temperature 37.0 Arterial Blood Date Drawn [id number] Arterial Blood pH 7.337 L 7.350-7.450 Arterial Blood Partial Pressure CO2 46.3 35.0-48.0 mmHg Arterial Blood Partial Pressure O2 92.9 83.0-108.0 mmHg Arterial Blood HCO3 24.3 21.0-28.0 mmol/L Arterial Blood Oxygen Saturation 96.5 94.0-98.0 % Arterial Blood Base Excess -1.7 -2.0-3.0 mmol/L Arterial Blood Oxyhemoglobin 95.2 94.0-98.0 % Arterial Blood Carboxyhemoglobin 1.1 0.5-1.5 % Arterial Blood Methemoglobin 0.2 0.0-1.5 % Jeremy Test Modified Blood Gas Total Hemoglobin 9.80 L 13.5-17.5 g/dL Blood Gas Set Respiration Rate 12.0 Blood Gas Modality Vent - ac FiO2 % 30.0 Blood Gas Tidal Volume 450.0 Blood Gas PEEP or CPAP 5.0 Test 06/17/25 03:06 06/16/25 12:31 06/16/25 10:45 06/16/25 03:04 Range/Units White Blood Count 7.2 4.4-10.8 10^3/uL Red Blood Count 2.93 L 4.5-5.90 10^6/uL Mean Corpuscular Volume 94.8 80.0-100.0 fL Mean Corpuscular Hemoglobin 30.5 28.0-32.0 pg Mean Corpuscular Hemoglobin Concent 32.2 32.0-36.0 g/dL Red Cell Distribution Width 25.9 H 11.8-14.3 % Platelet Count 59 L 140-450 10^3/uL Mean Platelet Volume 9.0 6.9-10.8 fL Neutrophils (%) (Auto) 73.2 37.0-80.0 % Lymphocytes (%) (Auto) 8.8 L 10.0-50.0 % Monocytes (%) (Auto) 12.8 H 0.0-12.0 % Eosinophils (%) (Auto) 4.0 0.0-7.0 % Basophils (%) (Auto) 1.2 0.0-2.0 % Neutrophils # (Auto) 5.3 1.6-8.6 10 ^3/uL Lymphocytes # (Auto) 0.6 0.4-5.4 10 ^3/uL Monocytes # (Auto) 0.9 0-1.3 10 ^3/uL Eosinophils # (Auto) 0.3 0-0.8 10 ^3/uL Basophils # (Auto) 0.1 0-0.2 10 ^3/uL Nucleated Red Blood Cells 0.3 % Platelet Estimate Decreased Anisocytosis (manual) Moderate Sodium Level 142 136-145 mmol/L Potassium Level 4.6 3.5-5.1 mmol/L Chloride Level 102 98-107 mmol/L Carbon Dioxide Level 27 20-31 mmol/L Anion Gap 13 5-15 Blood Urea Nitrogen 20 9-23 mg/dL Creatinine 2.56 H 0.700-1.30 mg/dL Glomerular Filtration Rate Calc 26 >90 mL/min BUN/Creatinine Ratio 7.8 L 10.0-20.0 Serum Glucose 202 H 74-106 mg/dL Calcium Level 9.7 8.7-10.4 mg/dL Total Bilirubin 1.1 H 0.2-1.0 mg/dL Aspartate Amino Transferase (AST) 22 13-40 U/L Alanine Aminotransferase (ALT) 13 7-40 U/L Alkaline Phosphatase 90 46-116 U/L Total Protein 5.8 5.7-8.2 g/dL Albumin 3.5 3.2-4.8 g/dL Urine Color Dark-yellow Yellow Urine Clarity Turbid H Clear Urine pH 6.0 5.0-9.0 Urine Specific [place] 1.026 1.001-1.035 Urine Protein 2+ H Negative Urine Ketones Negative Negative Urine Blood Trace H Negative /uL Urine Nitrite Negative Negative Urine Bilirubin Negative Negative Urine Urobilinogen Normal Negative mg/dL Urine Leukocyte Esterase Negative Negative /uL Urine RBC 1 0 - 3 /hpf Urine Microscopic WBC 2 0-3 /HPF Urine Squamous Epithelial Cells Few <5 /hpf Urine Bacteria Few H None Seen /hpf Urine Yeast (Budding) Occasional None Seen /hpf Urine Glucose 1+ H Normal mg/dL Phosphorus Level 2.5 2.4-5.1 mg/dL Magnesium Level 2.1 1.6-2.6 mg/dL Test 06/15/25 09:12 06/15/25 03:30 06/14/25 15:06 06/11/25 09:40 Range/Units Poikilocytosis (manual) Slight Macrocytosis Moderate Target Cells Few Tear Drop Cells Few Schistocytes Few Prothrombin Time 14.5 H 9.3-11.8 sec Prothrombin Time INR 1.42 H 0.9-1.15 Activated Partial Thromboplast Time 38.1 H 24.5-34.5 SEC Cortisol PM Sample 19.54 H 3.44-16.76 ug/dL Troponin I High Sensitivity 1620 *H </=54 ng/L Test 06/11/25 08:50 06/11/25 06:42 06/10/25 06:40 06/09/25 22:15 Range/Units Influenza Type A Antigen Negative Negative Influenza Type B Antigen Negative Negative SARS-CoV-2 Antigen (Rapid) Negative NEGATIVE Blood Gas Spontaneous Rate 12 Iron Level 35 L 65-175 ug/dL Total Iron Binding Capacity 167 L 250-425 ug/dL Percent Iron Saturation 21.0 20-55 % Ferritin 2508.0 H 22-322 ng/mL Blood Gas EPAP 5 Blood Gas IPAP 12 Blood Gas Critical Value Read Back Yes Blood Gas Notified Whom sherif Blanco md Blood Gas Notified Time [id number] Blood Gas Notified By Felicia patel, keshawn Test 06/08/25 15:09 06/07/25 22:49 06/07/25 03:06 06/03/25 15:50 Range/Units Blood Gas Liter Flow 6.00 Venous Blood pH 7.467 H 7.320-7.430 Venous Blood pCO2 at Patient Temp 37.5 L 38.0-54.0 mmHg Venous Blood pO2 at Patient Temp 48.3 H 23.0-48.0 mmHg Venous Blood HCO3 26.5 22.0-29.0 mmol/L Venous Blood Base Excess 2.9 -2.0-3.0 mmol/L Blood Gas Comments Vbg [place] Cells Few Large Platelets Few Test 06/02/25 13:02 05/31/25 03:03 05/27/25 07:09 05/24/25 08:31 Range/Units Blood Gas Pressure Support 8 Differential Total Cells Counted 100.0 100 Neutrophils % (Manual) 71 37.0-80.0 Band Neutrophils % (Manual) 4 Lymphocytes % (Manual) 13 10.0-50.0 Monocytes % (Manual) 8 0-12 Eosinophils % (Manual) 4 0-7 Basophils % (Manual) 0 0.0-2.0 Metamyelocytes % (manual) 0 Myelocytes % (Manual) 0 Promyelocytes % (Manual) 0 Blast Cells % (Manual) 0 Reactive Lymphocytes 0 Lactic Acid Level 1.6 0.4-2.0 mmol/L Hepatitis A IgM Antibody Negative Hepatitis B Surface Antigen Negative Negative Hepatitis B Core IgM Antibody Negative Negative Hepatitis C Antibody Negative Negative Test 05/23/25 21:10 05/23/25 03:30 05/20/25 01:02 05/19/25 08:14 Range/Units Blood Gas Spontaneous Tidal Volume 458 Triglycerides Level 46 < 150 mg/dL Urine WBC Clumps Present None Seen /hpf Direct Bilirubin 0.3 <0.3 mg/dL Test 05/16/25 15:18 05/16/25 15:00 05/14/25 20:00 05/13/25 11:00 Range/Units Urine Hyaline Casts Few 0 - 2 /lpf Urine Mucus Few None Seen Urine Osmolality 359 mOsm/kg Urine Creatinine 122.44 30.0-125.0 mg/dL Urine Protein/Creatinine Ratio 1.06 Urine Sodium 17 L 40-220 mmol/L Urine Total Protein 130.0 H 1-14 mg/dL Uric Acid 7.4 3.7-9.2 mg/dL B-Type Natriuretic Peptide 2815.68 0-100 pg/mL Vitamin D 25-Hydroxy 29.6 L 30.0-100 ng/mL Parathyroid Hormone (Intact) 117.3 H 18.4-80.1 pg/mL Stool Occult Blood Negative Negative Stool Occult Blood Sample #3 Negative Reticulocyte Count (auto) 1.57 H 0.5-1.5 % Test 05/13/25 05:12 Range/Units Lactate Dehydrogenase 293 H 120-246 U/L Vitamin B12 Level 461 211-911 pg/mL Folic Acid 7.78 >5.38 ng/mL Microbiology Date/Time Source Procedure Growth Status 06/16/25 12:31 Urine - Midstream Clean Catch Urine Culture - Preliminary Resulted 06/11/25 12:50 Sputum Gram Stain - Final Complete 06/11/25 12:50 Respiratory Culture - Final Acinetobacter baumanii/haemol Complete 06/11/25 09:40 Blood Blood Culture - Final NO GROWTH AFTER 5 DAYS OF INCUBATION. Complete 06/11/25 08:30 Nose MRSA Screen - Final Complete Assessment [id number] DEHYDRATION,MALNUTRITION PEG PLACEMENT EGD BY DR Diane BERGMAN EBL 1 CC NO DRAINS NO COMPLICATIONS Plan discussed with: Other BEVERLEY BERGMAN MD Jun 17, 2025 14:34
[2025-06-17] MEDS: ceFAZolin 1GM/50ML 50 ML IV ONE ×2 (14:38→15:02)
--- NOTE | 2025-06-17 14:46 | DVHPN2 ---
Progress Note Date Seen: Jun 17, 2025 Has the PT tested + for MRSA If YES, has PT been informed?: No Medical Necessity Reason Pt with a Central, PICC or Fol: Yes The following are medically ne: PICC Line, Leung Catheter Objective vital signs Vital Sign Date Time Temp Pulse Resp B/P (MAP) Pulse Ox O2 Delivery O2 Flow Rate FiO2 06/17/25 13:57 70 12 109/53 (71) 100 30 06/17/25 10:00 Mechanical Ventilator+ 06/17/25 08:00 97.0 97.0 Total Intake and Output 06/16/25 06/16/25 06/17/25 15:00 23:00 07:00 Intake Total 220.159 ml 578.945 ml 168.566 ml Output Total 110 ml 0 ml Balance 220.159 ml 468.945 ml 168.566 ml medications Current Medications Medications Dose Ordered Sig/Bandar Route Start Time Stop Time Status Last Admin Dose Admin Acetaminophen 650 mg Q6HP PRN PO 05/04/25 15:00 06/04/25 05:45 Sodium Chloride 10 ml QSHIFT@10,22 IV 05/19/25 22:00 06/17/25 11:08 Pantoprazole Sodium 40 mg DAILY IV 05/21/25 10:00 06/17/25 11:08 Artificial Tears 1 drop Q6HP PRN EACHEYE 05/21/25 05:00 06/03/25 21:42 Diagnostic Test (Pha) 1 strip Q6HR 05/23/25 00:00 06/17/25 11:32 Insulin Human Regular FOLLOW SLIDING SCALE Q6HR SC 05/23/25 00:00 06/16/25 13:12 Dextrose 50 ml UD IV 05/22/25 22:00 05/24/25 11:36 Albumin Human 100 ml @ 100 mls/hr PRN PRN IV 05/24/25 06:45 06/15/25 14:08 Folic Acid 1 mg DAILY PO 05/25/25 10:00 06/16/25 10:54 Multivitamins 1 tab DAILY PO 05/25/25 10:00 06/16/25 10:55 Cyanocobalamin 1,000 mcg DAILY PO 05/25/25 10:00 06/16/25 10:54 Pyridoxine HCl 50 mg DAILY PO 05/25/25 10:00 06/16/25 10:58 Ondansetron HCl 4 mg Q4HPRN PRN IV 05/25/25 18:00 Amiodarone HCl 200 mg Q12HR GT 05/29/25 10:00 06/16/25 22:41 Clopidogrel Bisulfate 75 mg DAILY NG 06/02/25 18:30 Cancel Albuterol 1.25 mg Q8HP PRN NEB 06/03/25 14:00 06/17/25 13:56 Acetylcysteine 200 mg Q8HR NEB 06/03/25 14:00 06/17/25 13:56 Melatonin 5 mg HS PO 06/04/25 22:00 06/09/25 21:27 Atorvastatin Calcium 40 mg HS PO 06/07/25 22:00 06/16/25 22:42 Albumin Human 100 ml @ 100 mls/hr ONCE PRN IV 06/09/25 08:45 06/09/25 11:15 Epoetin Norm-epbx 10,000 unit MWF@2100 SC 06/10/25 21:00 Hold 06/13/25 20:57 Midazolam HCl 50 ml @ 1 mls/hr Q24H IV 06/09/25 23:00 06/16/25 04:25 Fentanyl Citrate 250 ml @ 2.5 mls/hr Q24H IV 06/09/25 23:00 06/16/25 15:40 Vancomycin HCl 0 ml @ 0 mls/hr UD IV 06/11/25 08:45 Meropenem 50 ml @ 17 mls/hr Q12HR IV 06/13/25 14:00 06/17/25 11:08 Lactulose 30 ml TID PO 06/14/25 12:30 06/15/25 21:48 Sennosides 8.6 mg QHSP NG 06/15/25 22:00 06/15/25 21:48 Enteral Nutritional Formula 1,000 ml 60ML/HR NG 06/16/25 10:45 Vasopressin 20 units/Sodium Chloride 100 ml @ 9 mls/hr Q11H7M IV 06/16/25 16:00 06/17/25 13:37 Norepinephrine Bitartrate 32 mg/ Sodium Chloride 250 ml @ 0.469 mls/ hr Q24H IV 06/16/25 18:15 06/16/25 18:40 laboratory and microbiology Laboratory Tests 06/17/25 10:01 06/17/25 03:06 Test 06/17/25 03:06 Range/Units Serum Glucose 202 H 74-106 mg/dL Microbiology Date/Time Source Procedure Growth Status 06/16/25 12:31 Urine - Midstream Clean Catch Urine Culture - Preliminary Resulted 06/11/25 12:50 Sputum Gram Stain - Final Complete 06/11/25 12:50 Respiratory Culture - Final Acinetobacter baumanii/haemol Complete 06/11/25 09:40 Blood Blood Culture - Final NO GROWTH AFTER 5 DAYS OF INCUBATION. Complete 06/11/25 08:30 Nose MRSA Screen - Final Complete Problem List/Assessment/Plan Problem List/Assessment/Plan AFEBRILE VSS ABD SOFT FLATUS + NO BM PT PULLED OUT NG TUBE KEEP NPO CLOSE OBSERVATION NURSE AT BEDSIDE Plan discussed with: Patient Dietary Evaluation Review Comments: 1) [facility] + cardiac diet 2) Armen 1 pk BID, MVI w/ minerals 1 tab daily, VitC 500mg BID, Zinc sulfate 220mg BID x 10 days 3) Monitor NPO status, lab values, weight trend, and I/O Expected Outcomes/Goals: To meet >75% estimated needs Wound to improve Fu 2-3 days BEVERLEY BERGMAN MD Jun 17, 2025 14:46
--- NOTE | 2025-06-17 14:51 | DVHOP ---
DATE OF SURGERY: 06/17/2025 PREOPERATIVE DIAGNOSES: Dehydration and malnutrition. POSTOPERATIVE DIAGNOSES: Dehydration and malnutrition. PROCEDURE: PEG placement in conjunction with Dr. Thanh Valdez's endoscopy. She will be dictating her part. I did the surgical part. DESCRIPTION OF PROCEDURE: The patient was prepped and draped in the usual sterile fashion in the supine position. The upper abdomen was exposed. The endoscopy was carried out and the light was seen shining through. A suitable spot was selected in the upper abdomen. Lidocaine was inserted in the vicinity and a small incision was applied. The angiocatheter needle was advanced through the incision into the anterior wall of the stomach and the needle was withdrawn. The catheter was left in place. The guidewire was advanced through the catheter and grasped by the endoscope, pulled out and the PEG tube was engaged with the guidewire, pulled back into the mouth, into the anterior wall of the stomach with the cuff located in a very good situation. The G-tube was pulled out to allow this to happen and then final connection was established. Dressing was applied. Repeat endoscopy was carried out by Dr. Thanh Valdez and the tube placement was very successful. There were no complications and the patient tolerated the procedure well. Care was taken by the nursing staff and the medical residents. MD INDIA Mccormack/EFREN/MARVEL TID: [id number] RECEIPT: [id number] cc: Joya Arteaga MD
--- NOTE | 2025-06-17 15:03 | DVHOP2 ---
Operative Report DATE OF OPERATION: 06/17/25 PROCEDURE: Upper Endoscopy with PEG tube placement. PREOPERATIVE INDICATION: The patient is a 74 -year-old male undergoing endoscopy for altered level of consciousness respiratory failure prolonged intubation requiring tracheostomy and PEG tube placement POSTOPERATIVE DIAGNOSES: 1. Upper endoscopy showed a small hiatal hernia with a esophagitis and mild gastritis otherwise normal examination up to the 2nd part of the duodenum 2. A percutaneous gastrostomy tube was placed through the anterior abdominal wall under sterile conditions by Dr. Roberto Valdez using endoscopic guidance and assistance 3. Placement of the tube was confirmed by repeat endoscopy and the G-tube site was dressed in a sterile fashion PROCEDURE PERFORMED BY: Go Valdez GI NURSE: Evie SCOPE: Olympus videoendoscope. ASA CLASS: 3 PREOPERATIVE MEDICATIONS: Patient is intubated sedated on a fentanyl drip; patient was on IV Merrem panel, 1 g IV Ancef ordered PROCEDURE IN DETAIL: After obtaining an informed consent, the patient was placed on left lateral decubitus position. A B bite block was placed between his teeth. The endoscope was then passed through the oropharynx, into the esophagus, and through the stomach and pylorus up to the second and third part of the duodenum. The endoscope was then withdrawn. The 2nd and 3rd part of the duodenal and the duodenal bulb were normal. There was good bile drainage The pre-pyloric area and antrum showed mild gastritis. On retroflexion the fundus and cardia were normal. The endoscope was then withdrawn into distal esophagus where the patient had a 2 cm sliding-type hiatal hernia with grade B erosive esophagitis The patient had thick esophageal secretions and some retained bile. The endoscope was passed back into the stomach Using the light from the endoscope a percutaneous gastrostomy tube was placed through the anterior abdominal wall under sterile conditions by Dr. Roberto Valdez using endoscopic guidance and assistance as per standard protocol. I performed a repeat endoscopy confirmed adequate placement G-tube site was dressed and a binder was placed. The patient tolerated the procedure well without difficulty. COMPLICATIONS : None SPECIMENS: None DISPOSITION: Stable PLAN: 1. Protonix 40 mg IV daily 2. See postop PEG tube placement instructions; discussed with ICU nurse GO VALDEZ MD Jun 17, 2025 15:03
--- NOTE | 2025-06-17 15:20 | DVHINCON2 ---
DATE OF CONSULTATION: 06/17/2025 HISTORY OF PRESENT ILLNESS: This patient is intubated and unable to give history. Most of the information obtained from the chart. He is 74 years old, intubated with a history of triple bypass, testicular cancer, CKD stage 3, type 2 diabetes, peripheral neuropathy, hypertension, peripheral artery disease, left lower extremity DVT, on Eliquis and home hospice. He came to the ER with a history of left leg purple discoloration and he was diagnosed with nonocclusive thrombus of the left popliteal vein. He was put on anticoagulation. [employer] has done some surgery on him and he has remained intubated all this time. PLAN: Because of dehydration and malnutrition, a PEG tube placement was requested and I was asked to see this patient with regard to do the PEG tube placement in conjunction with Dr. Thanh Valdez's endoscopy. The patient was consented and he is prepared for the procedure. MD INDIA Mccormack/AIMEE/CHUY TID: [id number] RECEIPT: [id number] cc: Joya Arteaga
--- NOTE | 2025-06-17 16:00 | DVHPNRES ---
Progress Note Date Seen: Jun 17, 2025 Resident Creating Document: FABRICIO CALVIN RESIDENT Has the PT tested + for MRSA If YES, has PT been informed?: No Medical Necessity Reason Pt with a Central, PICC or Fol: Yes The following are medically ne: PICC Line, Leung Catheter Subjective Review of Systems The patient remains critically ill, intubated, and mechanically ventilated for acute hypoxemic respiratory failure secondary to ischemic cardiomyopathy (EF 20%), ventilator-associated pneumonia due to MDR Acinetobacter baumannii, and volume overload from ESRD. Today, the patient underwent upper endoscopy with percutaneous endoscopic gastrostomy (PEG) tube placement performed by Dr. Valdez under sterile conditions with endoscopic guidance. Post-operative findings: * Small hiatal hernia with mild esophagitis and antral gastritis (mild). * Otherwise normal mucosal examination up to the second part of the duodenum. * PEG tube successfully placed through the anterior abdominal wall; position confirmed by repeat endoscopy. * Site was dressed in sterile fashion and secured. The patient tolerated the procedure well without acute complications and remains hemodynamically stable on low-dose vasopressin infusion. He underwent 1 liter ultrafiltration via hemodialysis today, tolerated well. He had four bowel movements today, indicating improved GI motility. Vitals: BP 108/54 mmHg, HR 88 bpm, RR 14, SpO? 99% on FiO? 30% mechanical ventilation.?Hemodynamics stable post-procedure with MAP > 65 mmHg.?Lab review: * Hemoglobin 8.4 g/dL (stable) * WBC 9.6 K/?L (stable) * Platelets 110 K/?L (improved) * Cr 2.10 mg/dL, BUN 28 mg/dL, GFR 33 mL/min. * ABG: pH 7.39 / pCO? 45 / pO? 98 / HCO? 26.8 / O? Sat 97%. * CXR: Lines/tubes satisfactory; unchanged cardiomegaly and pulmonary vascular congestion.?Urine output negligible; patient remains dialysis-dependent. PEG site dressing clean, dry, intact; no leakage or erythema.?Plan: Continue Protonix 40 mg IV daily, maintain PEG care protocol, hold feeds for 12 hours post-placement, and resume tube feeding as per GI guidance.?Patient is scheduled for tracheostomy tomorrow pending continued hemodynamic stability. REVIEW OF SYSTEMS (Limited Sedated and Intubated) * General: Sedated, critically ill, stable post-procedure. * HEENT: ETT and new PEG tube in place; no bleeding or erythema. * CV: Stable HR and MAP; off norepinephrine, on vasopressin. * Resp: Ventilated, tolerating current settings. * GI: PEG in place; four BMs today; abdomen soft, non-tender. * : Anuric; on HD. * Skin: PEG site and wounds dressed; no active bleeding or erythema. * Neuro: Sedated but responsive to noxious stimuli; pupils equal/reactive. Objective vital signs Vital Sign Date Time Temp Pulse Resp B/P (MAP) Pulse Ox O2 Delivery O2 Flow Rate FiO2 06/17/25 15:46 74 12 96/45 (62) 100 30 06/17/25 10:00 Mechanical Ventilator+ 06/17/25 08:00 97.0 97.0 Total Intake and Output 06/16/25 06/16/25 06/17/25 15:00 23:00 07:00 Intake Total 220.159 ml 578.945 ml 168.566 ml Output Total 110 ml 0 ml Balance 220.159 ml 468.945 ml 168.566 ml medications Current Medications Medications Dose Ordered Sig/Bandar Route Start Time Stop Time Status Last Admin Dose Admin Acetaminophen 650 mg Q6HP PRN PO 05/04/25 15:00 06/04/25 05:45 650 MG Sodium Chloride 10 ml QSHIFT@10,22 IV 05/19/25 22:00 06/17/25 11:08 10 ML Pantoprazole Sodium 40 mg DAILY IV 05/21/25 10:00 06/17/25 11:08 40 MG Artificial Tears 1 drop Q6HP PRN EACHEYE 05/21/25 05:00 06/03/25 21:42 1 DROP Diagnostic Test (Pha) 1 strip Q6HR 05/23/25 00:00 06/17/25 11:32 1 STRIP Insulin Human Regular FOLLOW SLIDING SCALE Q6HR SC 05/23/25 00:00 06/16/25 13:12 4 UNITS Dextrose 50 ml UD IV 05/22/25 22:00 05/24/25 11:36 50 ML Albumin Human 100 ml @ 100 mls/hr PRN PRN IV 05/24/25 06:45 06/17/25 23:59 06/15/25 14:08 100 MLS/HR Folic Acid 1 mg DAILY PO 05/25/25 10:00 06/16/25 10:54 1 MG Multivitamins 1 tab DAILY PO 05/25/25 10:00 06/16/25 10:55 1 TAB Cyanocobalamin 1,000 mcg DAILY PO 05/25/25 10:00 06/16/25 10:54 1,000 MCG Pyridoxine HCl 50 mg DAILY PO 05/25/25 10:00 06/16/25 10:58 50 MG Ondansetron HCl 4 mg Q4HPRN PRN IV 05/25/25 18:00 Amiodarone HCl 200 mg Q12HR GT 05/29/25 10:00 06/16/25 22:41 200 MG Clopidogrel Bisulfate 75 mg DAILY NG 06/02/25 18:30 Cancel Albuterol 1.25 mg Q8HP PRN NEB 06/03/25 14:00 06/17/25 13:56 1.25 MG Acetylcysteine 200 mg Q8HR NEB 06/03/25 14:00 06/17/25 13:56 200 MG Melatonin 5 mg HS PO 06/04/25 22:00 06/09/25 21:27 5 MG Atorvastatin Calcium 40 mg HS PO 06/07/25 22:00 06/16/25 22:42 40 MG Epoetin Norm-epbx 10,000 unit MWF@2100 SC 06/10/25 21:00 Hold 06/13/25 20:57 10,000 UNIT Midazolam HCl 50 ml @ 1 mls/hr Q24H IV 06/09/25 23:00 06/16/25 04:25 2 MLS/HR Fentanyl Citrate 250 ml @ 2.5 mls/hr Q24H IV 06/09/25 23:00 06/16/25 15:40 7.5 MLS/HR Vancomycin HCl 0 ml @ 0 mls/hr UD IV 06/11/25 08:45 Meropenem 50 ml @ 17 mls/hr Q12HR IV 06/13/25 14:00 06/17/25 11:08 17 MLS/HR Lactulose 30 ml TID PO 06/14/25 12:30 06/15/25 21:48 30 ML Sennosides 8.6 mg QHSP NG 06/15/25 22:00 06/15/25 21:48 8.6 MG Enteral Nutritional Formula 1,000 ml 60ML/HR NG 06/16/25 10:45 Vasopressin 20 units/Sodium Chloride 100 ml @ 9 mls/hr Q11H7M IV 06/16/25 16:00 06/17/25 13:37 9 MLS/HR Norepinephrine Bitartrate 32 mg/ Sodium Chloride 250 ml @ 0.469 mls/ hr Q24H IV 06/16/25 18:15 06/16/25 18:40 1.406 MLS/HR Enteral Nutritional Formula 30 ml Q1HR PO 06/18/25 06:00 Examination General: Intubated, sedated, critically ill, post-PEG procedure. HEENT: ETT and PEG in place; oral mucosa moist. Cardiac: S1S2 regular; no murmurs or gallops. Respiratory: Bilateral diminished breath sounds; stable on FiO? 30%. Abdomen: Soft, non-tender; PEG site clean/dry/intact; bowel sounds present. Extremities: Left BKA stump clean; no cyanosis. Neuro: Sedated; pupils reactive; intact corneal reflex. Skin: No rashes; sacral and back wounds dressed and healing. laboratory and microbiology Laboratory Tests 06/17/25 10:01 06/17/25 03:06 Test 06/17/25 03:06 Range/Units Serum Glucose 202 H 74-106 mg/dL Microbiology Date/Time Source Procedure Growth Status 06/16/25 12:31 Urine - Midstream Clean Catch Urine Culture - Preliminary Resulted 06/11/25 12:50 Sputum Gram Stain - Final Complete 06/11/25 12:50 Respiratory Culture - Final Acinetobacter baumanii/haemol Complete 06/11/25 09:40 Blood Blood Culture - Final NO GROWTH AFTER 5 DAYS OF INCUBATION. Complete 06/11/25 08:30 Nose MRSA Screen - Final Complete Problem List/Assessment/Plan Problem List/Assessment/Plan Assessment Critical, complex multi-organ failure patient. 1. Severe Sepsis / Pneumonia due to MDR organisms (MDR Acinetobacter baumannii, Stenotrophomonas, Pseudomonas, Enterobacter). On broad antimicrobials ).POA 2. Acute hypoxemic respiratory failure * On mechanical ventilation, FiO? 35%, PEEP 10, due to pneumonia and CHF. 3. 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 Cardiogenic shock secondary to ischemic cardiomyopathy ruled in * On norepinephrine and vasopressin drips, MAP target >65. 5. Atrial fibrillation previously on amiodarone drip; now rate-controlled. 6. Acute on Chronic HFrEF POA 7. PAD with Left foot gangrene s/p BKA and Status post stent placemnet stable surgical site. POA 9. Metabolic encephalopathy POA 10. History of DVT POA prophylaxis complicated by thrombocytopenia. 11. Poor prognosis given multi-organ dysfunction, infections, dialysis- dependence. 12. NSTEMI Type 2 POA ruled in * Secondary to ischemic cardiomyopathy with EF 20%, triple-vessel CAD, anemia, and critical illness. * Managed conservatively due to non-candidacy for CABG/PCI. Ischemic cardiomyopathy with severe LV systolic dysfunction (EF 20%) ruled in * LVEF 20% with anterior/apical wall hypokinesis; requiring vasopressors. Cardiogenic shock ruled in * Increasing norepinephrine requirement; evidence of poor perfusion. 13. Severe dysphagia with aspiration risk POA ruled in * PEG and tracheostomy planned for long-term support. 14. Anemia of chronic disease (CKD-related, status post-PRBC transfusion) ruled in * Stable Hgb 9.3. POA 8. Thrombocytopenia (improving) ruled in * , improving trend. 9. Type 2 diabetes mellitus, controlled POA ruled in. 10. Dyslipidemia and obesity POA chronic, continue management. Plan [facility] Respiratory Continue mechanical ventilation (AC-VC, FiO? 30 %, PEEP 10, TV 450, RR 12). * Maintain SpO? > 92 %. * Plan tracheostomy tomorrow if hemodynamically stable. * Pulmonology to continue ventilator management. * Daily ABG, CXR. Infectious Disease * Meropenem IV 1 g Q8H for MDR Acinetobacter (primary coverage). * Vancomycin IV for possible Gram-positive coverage (monitor troughs). * Monitor WBC, fever, and cultures daily. Cardiac * Daily TELEMTRY * Levophed discontinued; maintain MAP > 65 mmHg, SBP > 90 mmHg. * Monitor for arrhythmia (on amiodarone 200 mg daily). * Correct coagulopathy with vitamin K and FFP if INR >1.5 before trach. * Vasopressin infusion to maintain MAP ? 65 mmHg, SBP ? 90 mmHg. * Monitor lactate and perfusion markers. * Hold Plavix; * Continue Atorvastatin 40 mg HS. * Re-evaluate need for vasopressin post-HD. Renal * Hemodialysis with ultrafiltration today with PRBC transfusion during session. * Strict I/O, daily weights. * Avoid nephrotoxins. * Albumin 25% IV pre-dialysis as tolerated. GI / Nutrition * Reglan discontinued due to QT prolongation and bowel movement achieved. * Nepro tube feeds at 4050 mL/h, titrate as tolerated once cleared by GI * Pantoprazole 40 mg IV daily for ulcer prophylaxis. * Post-PEG care protocol: * Keep PEG site clean/dry/intact. * Hold feeds x 12 hours post-procedure; then start Glucerna 1.2 at 20 mL/h, advance to goal 50 mL/h if tolerated. * Flush PEG with 30 mL sterile water before/after meds. * Continue Protonix 40 mg IV daily for esophagitis/gastritis. * Lactulose 30 mL BID for bowel regulation. * Dietitian consult for enteral nutrition plan Hematology / Coagulation * Monitor CBC, PT/INR, PTT daily. * Transfuse PRBC if Hgb <7 g/dL or symptomatic. * Hold Plavix for 5 days pre-tracheostomy; resume 24 hr post-procedure if stable. * Plt ; transfuse if <30 K or <50 K before procedure. * INR stable; continue to monitor. * Hold pharmacologic DVT prophylaxis due to thrombocytopenia; continue SCDs. Endocrine / Metabolic * Insulin sliding scale; maintain BG 704892 mg/dL. * Monitor electrolytes and replete as needed. Sedation / Analgesia * Continue fentanyl and midazolam infusions. * RASS goal -1 Prophylaxis * DVT: SCDs only (no heparin due to thrombocytopenia). * GI: Pantoprazole daily. * Skin: Turn q2h, offload pressure points.* Continue wound care per WOCN protocol: saline irrigation, non-adherent dressings. * Monitor wound cultures and signs of infection. * Reposition q2h; offload pressure points. * CLABSI bundle: Daily line check. Discharge planning Care * Social work consult placed for LTAC placement Case discussed in detail with the attending physician, including the clinical presentation, diagnostic workup, and comprehensive management plan. The duration of time spent in direct critical care management of this patient, including evaluation, review of clinical data, coordination of care, and decision-making, was 45 minutes. Plan discussed with: Son, Other (RN) My Orders My Orders Orders - FABRICIO CALVIN RESIDENT Procedure Category Date Status Time Complete Blood Count LAB 06/18/25 Verified 04:00 Creatinine LAB 06/18/25 Verified 04:00 Dietary Evaluation Review Comments: 1) Advance to CCHO 75gm + cardiac diet 2) Armen 1 pk BID, MVI w/ minerals 1 tab daily, VitC 500mg BID, Zinc sulfate 220mg BID x 10 days 3) Monitor NPO status, lab values, weight trend, and I/O Expected Outcomes/Goals: To meet >75% estimated needs Wound to improve Fu 2-3 days Date of Service: Jun 17, 2025 Billing Provider: LAUREN MA MD Common Visit Codes: [id number] CARE 30-74 MIN FABRICIO CALVIN RESIDENT Jun 17, 2025 16:00 LAUREN MA MD Jun 17, 2025 19:22
--- NOTE | 2025-06-17 16:32 | DVHPN2 ---
Progress Note - Dictate Date Seen: Jun 17, 2025 Has the PT tested + for MRSA If YES, has PT been informed?: No Medical Necessity Reason Pt with a Central, PICC or Fol: Yes The following are medically ne: PICC Line, Leung Catheter vital signs Vital Sign Date Time Temp Pulse Resp B/P (MAP) Pulse Ox O2 Delivery O2 Flow Rate FiO2 06/17/25 15:46 74 12 96/45 (62) 100 30 06/17/25 13:55 Mechanical Ventilator 06/17/25 13:55 97.5 97.5 Total Intake and Output 06/16/25 06/16/25 06/17/25 15:00 23:00 07:00 Intake Total 220.159 ml 578.945 ml 168.566 ml Output Total 110 ml 0 ml Balance 220.159 ml 468.945 ml 168.566 ml medications Current Medications Medications Dose Ordered Sig/Bandar Route Start Time Stop Time Status Last Admin Dose Admin Acetaminophen 650 mg Q6HP PRN PO 05/04/25 15:00 06/04/25 05:45 650 MG Sodium Chloride 10 ml QSHIFT@10,22 IV 05/19/25 22:00 06/17/25 11:08 10 ML Pantoprazole Sodium 40 mg DAILY IV 05/21/25 10:00 06/17/25 11:08 40 MG Artificial Tears 1 drop Q6HP PRN EACHEYE 05/21/25 05:00 06/03/25 21:42 1 DROP Diagnostic Test (Pha) 1 strip Q6HR 05/23/25 00:00 06/17/25 11:32 1 STRIP Insulin Human Regular FOLLOW SLIDING SCALE Q6HR SC 05/23/25 00:00 06/16/25 13:12 4 UNITS Dextrose 50 ml UD IV 05/22/25 22:00 05/24/25 11:36 50 ML Albumin Human 100 ml @ 100 mls/hr PRN PRN IV 05/24/25 06:45 06/17/25 23:59 06/15/25 14:08 100 MLS/HR Folic Acid 1 mg DAILY PO 05/25/25 10:00 06/16/25 10:54 1 MG Multivitamins 1 tab DAILY PO 05/25/25 10:00 06/16/25 10:55 1 TAB Cyanocobalamin 1,000 mcg DAILY PO 05/25/25 10:00 06/16/25 10:54 1,000 MCG Pyridoxine HCl 50 mg DAILY PO 05/25/25 10:00 06/16/25 10:58 50 MG Ondansetron HCl 4 mg Q4HPRN PRN IV 05/25/25 18:00 Amiodarone HCl 200 mg Q12HR GT 05/29/25 10:00 06/16/25 22:41 200 MG Clopidogrel Bisulfate 75 mg DAILY NG 06/02/25 18:30 Cancel Albuterol 1.25 mg Q8HP PRN NEB 06/03/25 14:00 06/17/25 13:56 1.25 MG Acetylcysteine 200 mg Q8HR NEB 06/03/25 14:00 06/17/25 13:56 200 MG Melatonin 5 mg HS PO 06/04/25 22:00 06/09/25 21:27 5 MG Atorvastatin Calcium 40 mg HS PO 06/07/25 22:00 06/16/25 22:42 40 MG Epoetin Norm-epbx 10,000 unit MWF@2100 SC 06/10/25 21:00 Hold 06/13/25 20:57 10,000 UNIT Midazolam HCl 50 ml @ 1 mls/hr Q24H IV 06/09/25 23:00 06/16/25 04:25 2 MLS/HR Fentanyl Citrate 250 ml @ 2.5 mls/hr Q24H IV 06/09/25 23:00 06/16/25 15:40 7.5 MLS/HR Vancomycin HCl 0 ml @ 0 mls/hr UD IV 06/11/25 08:45 Meropenem 50 ml @ 17 mls/hr Q12HR IV 06/13/25 14:00 06/17/25 11:08 17 MLS/HR Lactulose 30 ml TID PO 06/14/25 12:30 06/15/25 21:48 30 ML Sennosides 8.6 mg QHSP NG 06/15/25 22:00 06/15/25 21:48 8.6 MG Enteral Nutritional Formula 1,000 ml 60ML/HR NG 06/16/25 10:45 Vasopressin 20 units/Sodium Chloride 100 ml @ 9 mls/hr Q11H7M IV 06/16/25 16:00 06/17/25 13:37 9 MLS/HR Norepinephrine Bitartrate 32 mg/ Sodium Chloride 250 ml @ 0.469 mls/ hr Q24H IV 06/16/25 18:15 06/16/25 18:40 1.406 MLS/HR Enteral Nutritional Formula 30 ml Q1HR PO 06/18/25 06:00 laboratory and microbiology Laboratory Tests 06/17/25 10:01 06/17/25 03:06 Test 06/17/25 03:06 Range/Units Serum Glucose 202 H 74-106 mg/dL Assessment/Plan Impression Acute hypoxemic respiratory failure Atelectasis Fluid overload Pleural effusions Patient seen and examined in the ICU Events on the ventilator s/p reintubation ac volume control peep 7 fi02 30% awaiting tracheostomy s/p peg today abg: reviewed CXR reviewed Management plan Vent support Titrate to maintain sats 90% or above Sedation for vent synchrony Continue antibiotics F/u cultures Bronchodilators diurese/HD Monitor renal function Monitor electrolytes Supplement as needed Pressors as needed for hemodynamic support To maintain a mean arterial pressure of 65 mmHg full code awaiting tracheostomy Critical care time 35 minutes Dietary Evaluation Review Comments: 1) [facility] + cardiac diet 2) Armen 1 pk BID, MVI w/ minerals 1 tab daily, VitC 500mg BID, Zinc sulfate 220mg BID x 10 days 3) Monitor NPO status, lab values, weight trend, and I/O Expected Outcomes/Goals: To meet >75% estimated needs Wound to improve Fu 2-3 days Plan discussed with: Other (rn) DELROY REDD MD Jun 17, 2025 16:32
[2025-06-17] MEDS ORDERED: DEXTROSE (50%) 50ML SYRG IV PRN (20:00)
[2025-06-17] MEDS ORDERED: DEXTROSE (50%) 50ML SYRG IV SCH (20:00)
[2025-06-17] MEDS: ACCU-CHEK COMFORT CURVE STRIP VI SCH (23:31)
[2025-06-17] MEDS: InsuLIN REG 1unit/0.01ml Soln (100units/ml) SC SCH (23:32)
[2025-06-18] VITALS (101 sets, daily range): BP systolic 80–122; BP diastolic 37–78; PULSE 60–98; RESP 10–21; TEMP 97.6–98.1; O2SAT 8–100
[2025-06-18 03:33] LABS: Hemoglobin 8.4 g/dL (13.5-17.5); Nucleated Red Blood Cells % 0.1 %
[2025-06-18 03:36] LABS: Hematocrit 25.5 % (41.0-53.0); Mean Corpuscular Hemoglobin 31.2 pg (28.0-32.0); Mean Corpuscular Volume 94.0 fL (80.0-100.0)
[2025-06-18 03:45] LABS: INR 1.45 (0.9-1.15); Partial Thromboplastin Time 37.9 SEC (24.5-34.5); Prothrombin Time 14.8 sec (9.3-11.8)
[2025-06-18 03:50] LABS: Alanine Aminotransferase 11 U/L (7-40); Albumin 3.3 g/dL (3.2-4.8); Alkaline Phosphatase 82 U/L (46-116); Anion Gap 13 (5-15); BUN/Creatinine Ratio 8.2 (10.0-20.0); Blood Urea Nitrogen 18 mg/dL (9-23); Calcium 9.8 mg/dL (8.7-10.4); Carbon Dioxide 28 mmol/L (20-31); Chloride 101 mmol/L (98-107); Magnesium 2.2 mg/dL (1.6-2.6); Potassium 3.9 mmol/L (3.5-5.1); Sodium 142 mmol/L (136-145)
[2025-06-18 03:51] LABS: Bilirubin, Total 0.8 mg/dL (0.2-1.0); Glucose 165 mg/dL (74-106); Total Protein 5.7 g/dL (5.7-8.2)
[2025-06-18 03:58] LABS: Anisocytosis Slight
[2025-06-18] MEDS: Ensure Enlive Vanilla 8oz Bottle PO SCH (06:00)
[2025-06-18 06:52] LABS: Base Excess -0.4 mmol/L (-2.0-3.0)
[2025-06-18] MEDS ORDERED: GLYCOPYRROLATE 0.2 MG/ML 1ML VIAL ONE (08:23)
--- NOTE | 2025-06-18 08:28 | DVH ---
CHEST RADIOGRAPH Indication: Acute hypoxic respiratory failure Technique: Single frontal view of the chest was obtained COMPARISON: XY CHEST XRAY 1 VIEW on DOS: 06/17/25, XY CHEST XRAY 1 VIEW on DOS: 06/16/25, XY CHEST XRA Y 1 VIEW on DOS: 06/15/25, XY CHEST XRAY 1 VIEW on DOS: 06/14/25, XY CHEST PORTABLE on DOS: 06/13/25 FINDINGS: Lines and Tubes: Endotracheal tube, left PICC and right tunneled central venous catheter in satisfact ory position. Lungs: Unchanged severe multifocal airspace disease. Pleura: Unchanged small bilateral pleural effusions. No pneumothorax. Cardiomediastinal contours: Unchanged cardiomegaly. Bones: Unremarkable. IMPRESSION: No significant interval change.
--- NOTE | 2025-06-18 08:36 | DVHPNRES ---
Progress Note Date Seen: Jun 18, 2025 Resident Creating Document: FLORESITA FRAIRE RESIDENT Has the PT tested + for MRSA If YES, has PT been informed?: No Medical Necessity Reason Pt with a Central, PICC or Fol: Yes The following are medically ne: PICC Line, Leung Catheter Subjective Review of Systems Patient seen and examined at bedside Underwent tracheostomy by without complication Patient underwent PEG tube a day before, can start feeding On vent, volume control, respiratory rate 12, tidal volume 450, FiO2 30%, peep five Initially in morning patient was on vasopressor including norepinephrine, vasopressin, titrate down without any pressor now. On fentanyl drip No any acute 90 events reported by nurse Objective vital signs Vital Sign Date Time Temp Pulse Resp B/P (MAP) Pulse Ox O2 Delivery O2 Flow Rate FiO2 06/18/25 07:45 84 13 103/48 (66) 96 30 06/18/25 06:00 Mechanical Ventilator+ 06/18/25 04:15 97.7 97.7 Total Intake and Output 06/17/25 06/17/25 06/18/25 15:00 23:00 07:00 Intake Total 284.345 ml 213.344 ml 134.376 ml Output Total 50 ml Balance 284.345 ml 163.344 ml 134.376 ml medications Current Medications Medications Dose Ordered Sig/Bandar Route Start Time Stop Time Status Last Admin Dose Admin Acetaminophen 650 mg Q6HP PRN PO 05/04/25 15:00 06/04/25 05:45 650 MG Sodium Chloride 10 ml QSHIFT@10,22 IV 05/19/25 22:00 06/17/25 21:59 10 ML Pantoprazole Sodium 40 mg DAILY IV 05/21/25 10:00 06/17/25 11:08 40 MG Artificial Tears 1 drop Q6HP PRN EACHEYE 05/21/25 05:00 06/03/25 21:42 1 DROP Folic Acid 1 mg DAILY PO 05/25/25 10:00 06/16/25 10:54 1 MG Multivitamins 1 tab DAILY PO 05/25/25 10:00 06/16/25 10:55 1 TAB Cyanocobalamin 1,000 mcg DAILY PO 05/25/25 10:00 06/16/25 10:54 1,000 MCG Pyridoxine HCl 50 mg DAILY PO 05/25/25 10:00 06/16/25 10:58 50 MG Ondansetron HCl 4 mg Q4HPRN PRN IV 05/25/25 18:00 Amiodarone HCl 200 mg Q12HR GT 05/29/25 10:00 06/16/25 22:41 200 MG Clopidogrel Bisulfate 75 mg DAILY NG 06/02/25 18:30 Cancel Albuterol 1.25 mg Q8HP PRN NEB 06/03/25 14:00 06/18/25 06:05 1.25 MG Acetylcysteine 200 mg Q8HR NEB 06/03/25 14:00 06/18/25 06:04 200 MG Atorvastatin Calcium 40 mg HS PO 06/07/25 22:00 06/16/25 22:42 40 MG Epoetin Norm-epbx 10,000 unit MWF@2100 SC 06/10/25 21:00 06/13/25 20:57 10,000 UNIT Midazolam HCl 50 ml @ 1 mls/hr Q24H IV 06/09/25 23:00 06/16/25 04:25 2 MLS/HR Fentanyl Citrate 250 ml @ 2.5 mls/hr Q24H IV 06/09/25 23:00 06/17/25 19:40 10 MLS/HR Vancomycin HCl 0 ml @ 0 mls/hr UD IV 06/11/25 08:45 Meropenem 50 ml @ 17 mls/hr Q12HR IV 06/13/25 14:00 06/17/25 22:06 17 MLS/HR Lactulose 30 ml TID PO 06/14/25 12:30 06/15/25 21:48 30 ML Sennosides 8.6 mg QHSP NG 06/15/25 22:00 06/15/25 21:48 8.6 MG Enteral Nutritional Formula 1,000 ml 60ML/HR NG 06/16/25 10:45 Vasopressin 20 units/Sodium Chloride 100 ml @ 9 mls/hr Q11H7M IV 06/16/25 16:00 06/18/25 01:03 9 MLS/HR Norepinephrine Bitartrate 32 mg/ Sodium Chloride 250 ml @ 0.469 mls/ hr Q24H IV 06/16/25 18:15 06/17/25 20:40 0.469 MLS/HR Enteral Nutritional Formula 30 ml Q1HR PO 06/18/25 06:00 Diagnostic Test (Pha) 1 strip Q6HR 06/18/25 00:00 06/18/25 06:00 1 STRIP Insulin Human Regular Q6HR SC 06/18/25 00:00 06/18/25 06:00 2 UNITS Dextrose 50 ml UD PRN IV 06/17/25 20:00 Examination General Appearance: Sedated, on ventilation. Head Exam: Normal inspection Neck Exam: Normal inspection. Non-tender. Normal alignment Pulmonary/Respiratory: Chest non-tender. Clear bilateral breath sounds Cardiovascular/Chest: Regular rate and rhythm. No murmurs. No JVD. Peripheral Pulses: 2+ Radial (R). 2+ Radial (L). 2+ Pedal (R). 2+ Pedal (L) Abdominal Exam: Normal bowel sounds. Soft. Nontender. No hepatospenomegaly. No masses, presence of PEG tube, site of insertion clear, no signs of infection. Ankle Exam: Negative ankle edema Lower extremities: Negative lower extremity edema, Left BKA stump Neuro/Mental Status: Sedated. laboratory and microbiology Laboratory Tests 06/18/25 02:42 Test 06/18/25 02:42 Range/Units Serum Glucose 165 H 74-106 mg/dL Microbiology Date/Time Source Procedure Growth Status 06/16/25 12:31 Urine - Midstream Clean Catch Urine Culture - Preliminary Resulted 06/11/25 12:50 Sputum Gram Stain - Final Complete 06/11/25 12:50 Respiratory Culture - Final Acinetobacter baumanii/haemol Complete 06/11/25 09:40 Blood Blood Culture - Final NO GROWTH AFTER 5 DAYS OF INCUBATION. Complete 06/11/25 08:30 Nose MRSA Screen - Final Complete Problem List/Assessment/Plan Problem List/Assessment/Plan Covering for resident 1. Severe Sepsis / Pneumonia due to MDR organisms (MDR Acinetobacter baumannii, Stenotrophomonas, Pseudomonas, Enterobacter). On broad antimicrobials ).POA 2. Acute hypoxemic respiratory failure * On mechanical ventilation, FiO? 35%, PEEP 10, due to pneumonia and CHF. 3. 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 Cardiogenic shock secondary to ischemic cardiomyopathy ruled in * On norepinephrine and vasopressin drips, MAP target >65. 5. Atrial fibrillation previously on amiodarone drip; now rate-controlled. 6. Acute on Chronic HFrEF POA 7. PAD with Left foot gangrene s/p BKA and Status post stent placemnet stable surgical site. POA 9. Metabolic encephalopathy POA 10. History of DVT POA prophylaxis complicated by thrombocytopenia. 11. Poor prognosis given multi-organ dysfunction, infections, dialysis- dependence. 12. NSTEMI Type 2 POA ruled in * Secondary to ischemic cardiomyopathy with EF 20%, triple-vessel CAD, anemia, and critical illness. * Managed conservatively due to non-candidacy for CABG/PCI. Ischemic cardiomyopathy with severe LV systolic dysfunction (EF 20%) ruled in * LVEF 20% with anterior/apical wall hypokinesis; requiring vasopressors. Cardiogenic shock ruled in * Increasing norepinephrine requirement; evidence of poor perfusion. 13. Severe dysphagia with aspiration risk POA ruled in * PEG and tracheostomy planned for long-term support. 14. Anemia of chronic disease (CKD-related, status post-PRBC transfusion) ruled in * Stable Hgb 9.3. POA 8. Thrombocytopenia (improving) ruled in * , improving trend. 9. Type 2 diabetes mellitus, controlled POA ruled in. 10. Dyslipidemia and obesity POA chronic, continue management. Plan 06/18/2025 : Patient underwent tracheostomy today, on minimal ventilator setting with respiratory rate 12, tidal volume 450, FiO2 30% with peep five. Today we titrate down vasopressor, requiring minimal Levophed. On minimal sedation with fentanyl. ABG with pH of 7.363, CO2 45.2, HC03 25.1. Quencher Operator on board for ventilation management. Nephrology planning for next dialysis on 06/20/2025. Continue IV antibiotic with nutrition. Once patient is medically stable, plan for LTAC transfer. Continue current medical management. [facility] Respiratory Continue mechanical ventilation * Maintain SpO2 > 92 %. * underwent tracheostomy today * Pulmonology to continue ventilator management. * Daily ABG, CXR. Infectious Disease * Meropenem IV 1 g Q8H for MDR Acinetobacter (primary coverage). * Vancomycin IV for possible Gram-positive coverage (monitor troughs). * Monitor WBC, fever, and cultures daily. Cardiac * Daily TELEMTRY * Levophed discontinued; maintain MAP > 65 mmHg, SBP > 90 mmHg. * Monitor for arrhythmia (on amiodarone 200 mg daily). * Correct coagulopathy with vitamin K and FFP if INR >1.5 before trach. * Vasopressin infusion target map greater than 65 mmHg, systolic blood pressure greater than 90 mmHg. * Monitor lactate and perfusion markers. * Hold Plavix; * Continue Atorvastatin 40 mg HS. * Re-evaluate need for vasopressin post-HD. Renal * Hemodialysis with ultrafiltration today with PRBC transfusion during session. Plan for next hemodialysis on 06/20/2025. * Strict I/O, daily weights. * Avoid nephrotoxins. * Albumin 25% IV pre-dialysis as tolerated. GI / Nutrition * Reglan discontinued due to QT prolongation and bowel movement achieved. * Nepro tube feeds at 4050 mL/h, titrate as tolerated * Pantoprazole 40 mg IV daily for ulcer prophylaxis. * Post-PEG care protocol: * Keep PEG site clean/dry/intact. * Hold feeds x 12 hours post-procedure; then start Glucerna 1.2 at 20 mL/h, advance to goal 50 mL/h if tolerated. * Flush PEG with 30 mL sterile water before/after meds. * Continue Protonix 40 mg IV daily for esophagitis/gastritis. * Lactulose 30 mL BID for bowel regulation. * Dietitian consult for enteral nutrition plan Hematology / Coagulation * Monitor CBC, PT/INR, PTT daily. * Transfuse PRBC if Hgb <7 g/dL or symptomatic. * Hold Plavix for 5 days pre-tracheostomy; resume 24 hr post-procedure if stable. Resume Plavix tomorrow a.m.. * Plt ; transfuse if <30 K or <50 K before procedure. * INR stable; continue to monitor. * Hold pharmacologic DVT prophylaxis due to thrombocytopenia; continue SCDs. Endocrine / Metabolic * Insulin sliding scale; maintain BG 177549 mg/dL. * Monitor electrolytes and replete as needed. Sedation / Analgesia * Continue fentanyl and midazolam infusions. * RASS goal -1 Prophylaxis * DVT: SCDs only (no heparin due to thrombocytopenia). * GI: Pantoprazole daily. * Skin: Turn q2h, offload pressure points.* Continue wound care per WOC[facility] protocol: saline irrigation, non-adherent dressings. * Monitor wound cultures and signs of infection. * Reposition q2h; offload pressure points. * CLABSI bundle: Daily line check. Discharge planning Care * Social work consult placed for LTAC placement Tried to call son Keaton, not able to reach. Critical care time spent greater than 62 minutes. Plan discussed with Dr. York. Plan discussed with: Other Dietary Evaluation Review Comments: 1) [facility] diet 2) Armen 1 pk BID, MVI w/ minerals 1 tab daily, VitC 500mg BID, Zinc sulfate 220mg BID x 10 days 3) Monitor NPO status, lab values, weight trend, and I/O Expected Outcomes/Goals: To meet >75% estimated needs Wound to improve Fu 2-3 days FLORESITA FRAIRE RESIDENT Jun 18, 2025 08:35
--- NOTE | 2025-06-18 09:47 | DVH ---
CHEST RADIOGRAPH Indication: TRACHEOSTOMY Technique: Single frontal view of the chest was obtained COMPARISON: XY CHEST XRAY 1 VIEW on DOS: 06/18/25, XY CHEST XRAY 1 VIEW on DOS: 06/17/25, XY CHEST XR AY 1 VIEW on DOS: 06/16/25, XY CHEST XRAY 1 VIEW on DOS: 06/15/25, XY CHEST XRAY 1 VIEW on DOS: 06/14/25 FINDINGS: Lines and Tubes: Tracheostomy 2.6 cm above the livier. Right-sided central line is in the superior ve na cava. Lungs: Ill-defined interstitial changes both mid to lower lung murguia. Pleura: Small bilateral pleural effusions, right greater than left. No pneumothorax. Cardiomediastinal contours: Unremarkable Bones: Unremarkable IMPRESSION: 1. Tracheostomy 2.6 cm above the livier. 2. Small bilateral pleural effusions, right greater than left. Hazy interstitial changes lower lung murguia.
--- NOTE | 2025-06-18 09:54 | DVHPN2 ---
Progress Note Date Seen: Jun 18, 2025 Has the PT tested + for MRSA If YES, has PT been informed?: No Medical Necessity Reason Pt with a Central, PICC or Fol: Yes The following are medically ne: PICC Line, Leung Catheter Objective vital signs Vital Sign Date Time Temp Pulse Resp B/P (MAP) Pulse Ox O2 Delivery O2 Flow Rate FiO2 06/18/25 08:00 12 97 Mechanical Ventilator+ 30 30 06/18/25 08:00 78 99/42 (61) 06/18/25 04:15 97.7 97.7 Total Intake and Output 06/17/25 06/17/25 06/18/25 15:00 23:00 07:00 Intake Total 284.345 ml 213.344 ml 150.876 ml Output Total 50 ml Balance 284.345 ml 163.344 ml 150.876 ml medications Current Medications Medications Dose Ordered Sig/Bandar Route Start Time Stop Time Status Last Admin Dose Admin Acetaminophen 650 mg Q6HP PRN PO 05/04/25 15:00 06/04/25 05:45 650 MG Sodium Chloride 10 ml QSHIFT@10,22 IV 05/19/25 22:00 06/17/25 21:59 10 ML Pantoprazole Sodium 40 mg DAILY IV 05/21/25 10:00 06/17/25 11:08 40 MG Artificial Tears 1 drop Q6HP PRN EACHEYE 05/21/25 05:00 06/03/25 21:42 1 DROP Folic Acid 1 mg DAILY PO 05/25/25 10:00 06/16/25 10:54 1 MG Multivitamins 1 tab DAILY PO 05/25/25 10:00 06/16/25 10:55 1 TAB Cyanocobalamin 1,000 mcg DAILY PO 05/25/25 10:00 06/16/25 10:54 1,000 MCG Pyridoxine HCl 50 mg DAILY PO 05/25/25 10:00 06/16/25 10:58 50 MG Ondansetron HCl 4 mg Q4HPRN PRN IV 05/25/25 18:00 Amiodarone HCl 200 mg Q12HR GT 05/29/25 10:00 06/16/25 22:41 200 MG Clopidogrel Bisulfate 75 mg DAILY NG 06/02/25 18:30 Cancel Albuterol 1.25 mg Q8HP PRN NEB 06/03/25 14:00 06/18/25 06:05 1.25 MG Acetylcysteine 200 mg Q8HR NEB 06/03/25 14:00 06/18/25 06:04 200 MG Atorvastatin Calcium 40 mg HS PO 06/07/25 22:00 06/16/25 22:42 40 MG Epoetin Norm-epbx 10,000 unit MWF@2100 SC 06/10/25 21:00 06/13/25 20:57 10,000 UNIT Midazolam HCl 50 ml @ 1 mls/hr Q24H IV 06/09/25 23:00 06/16/25 04:25 2 MLS/HR Fentanyl Citrate 250 ml @ 2.5 mls/hr Q24H IV 06/09/25 23:00 06/17/25 19:40 10 MLS/HR Vancomycin HCl 0 ml @ 0 mls/hr UD IV 06/11/25 08:45 Meropenem 50 ml @ 17 mls/hr Q12HR IV 06/13/25 14:00 06/17/25 22:06 17 MLS/HR Lactulose 30 ml TID PO 06/14/25 12:30 06/15/25 21:48 30 ML Sennosides 8.6 mg QHSP NG 06/15/25 22:00 06/15/25 21:48 8.6 MG Enteral Nutritional Formula 1,000 ml 60ML/HR NG 06/16/25 10:45 Vasopressin 20 units/Sodium Chloride 100 ml @ 9 mls/hr Q11H7M IV 06/16/25 16:00 06/18/25 01:03 9 MLS/HR Norepinephrine Bitartrate 32 mg/ Sodium Chloride 250 ml @ 0.469 mls/ hr Q24H IV 06/16/25 18:15 06/17/25 20:40 0.469 MLS/HR Enteral Nutritional Formula 30 ml Q1HR PO 06/18/25 06:00 Diagnostic Test (Pha) 1 strip Q6HR 06/18/25 00:00 06/18/25 06:00 1 STRIP Insulin Human Regular Q6HR SC 06/18/25 00:00 06/18/25 06:00 2 UNITS Dextrose 50 ml UD PRN IV 06/17/25 20:00 laboratory and microbiology Laboratory Tests 06/18/25 02:42 Test 06/18/25 02:42 Range/Units Serum Glucose 165 H 74-106 mg/dL Problem List/Assessment/Plan Problem List/Assessment/Plan 05/24/25 intubated, receiving hemodialysis left BK amputation being cared for by wound service, wound vac in place, please recall me if needed, will sign off for now, carmen need to stay in wound for another two weeks. 06/13/25 I AM BEING REQUESTED TO DO A TRACHEOSTOMY FOR THIS PATIENT, REVIEWED HIS CHART HIS COAGULOPATHY MUST BE CORRECTED PRIOR TO PROCEEDING WITH TRACHEOSTOMY(HAVE SO INDICATED TO PT'S NURSE). PATIENT IS TENTATIVELY SCHEDULED FOR TRACHEOSTOMY Friday ,PROVIDED THAT VENT.SETTINGS WILL BE ACCEPTABLE AND COAGULOPATHY CORRECTED BY THEN. 06/18/25 post tracheostomy CXR reviewed, tracheostomy in good position with tip well above the livier, both lungs well expanded, Plan discussed with: Other Dietary Evaluation Review Comments: 1) [facility] + cardiac diet 2) Armen 1 pk BID, MVI w/ minerals 1 tab daily, VitC 500mg BID, Zinc sulfate 220mg BID x 10 days 3) Monitor NPO status, lab values, weight trend, and I/O Expected Outcomes/Goals: To meet >75% estimated needs Wound to improve Fu 2-3 days DOUG URENA MD Jun 18, 2025 09:54
--- NOTE | 2025-06-18 09:56 | DVHOP ---
DATE OF SURGERY: 06/18/2025 PREOPERATIVE DIAGNOSIS: Ventilator-dependent respiratory failure. POSTOPERATIVE DIAGNOSIS: Ventilator-dependent respiratory failure. SURGEON: Cristiano Hodges MD ANESTHESIA: General. ANESTHESIOLOGIST: Fahad nurse cook room supervisor. DESCRIPTION OF PROCEDURE: Under general anesthesia, the patient's skin prepped and draped, infiltrated with 1% Xylocaine with epinephrine to aid with hemostasis. The patient's incision was made vertically above the sternal notch, deepened with electrocautery through subcutaneous tissues and the strap muscles, which were retracted laterally. The thyroid was displaced superiorly in order to facilitate access to the anterior surface of the trachea, which was extremely steeply receded into the patient's mediastinum. The only second and first ring of the trachea were accessible to perform a tracheotomy, which was accomplished with the patient's inhaled gases reduced to room air so as to minimize the potential for airway fire. With the tracheotomy dilated, the size 8 tracheostomy tube was advanced into the tracheotomy as the endotracheal tube was withdrawn by the anesthesiologist. Under direct vision, the tracheotomy tube was advanced into its final position and secured with insufflation of 10 mL of air into the anchoring cuff. Also secured the bridge of the tracheostomy with 2 interrupted Prolene sutures and circumferential umbilical tape. The patient's ventilation returned to normal. Immediately upon placement of the tracheostomy, there was immediate recapture of CO2 and normal gas exchange. The patient remained in an unchanged clinical condition at the termination of procedure. Chest x-ray is ordered and is pending at the time of this dictation. No family members were present in the waiting room. MD ASHUTOSH Dumont/YASEMIN/CHUY TID: [id number] RECEIPT: [id number]
--- NOTE | 2025-06-18 10:14 | DVHPN2 ---
Progress Note Date Seen: Jun 18, 2025 Has the PT tested + for MRSA If YES, has PT been informed?: No Medical Necessity Reason Pt with a Central, PICC or Fol: Yes The following are medically ne: PICC Line, Leung Catheter Subjective Review of Systems: RESPIRATORY:Abnormal Other Systems: Patient seen and examined by myself today in follow-up, patient is trached on the ventilator Objective vital signs Vital Sign Date Time Temp Pulse Resp B/P (MAP) Pulse Ox O2 Delivery O2 Flow Rate FiO2 06/18/25 08:00 12 97 Mechanical Ventilator+ 30 30 06/18/25 08:00 78 99/42 (61) 06/18/25 04:15 97.7 97.7 Total Intake and Output 06/17/25 06/17/25 06/18/25 15:00 23:00 07:00 Intake Total 284.345 ml 213.344 ml 150.876 ml Output Total 50 ml Balance 284.345 ml 163.344 ml 150.876 ml medications Current Medications Medications Dose Ordered Sig/Bandar Route Start Time Stop Time Status Last Admin Dose Admin Acetaminophen 650 mg Q6HP PRN PO 05/04/25 15:00 06/04/25 05:45 650 MG Sodium Chloride 10 ml QSHIFT@10,22 IV 05/19/25 22:00 06/17/25 21:59 10 ML Pantoprazole Sodium 40 mg DAILY IV 05/21/25 10:00 06/17/25 11:08 40 MG Artificial Tears 1 drop Q6HP PRN EACHEYE 05/21/25 05:00 06/03/25 21:42 1 DROP Folic Acid 1 mg DAILY PO 05/25/25 10:00 06/16/25 10:54 1 MG Multivitamins 1 tab DAILY PO 05/25/25 10:00 06/16/25 10:55 1 TAB Cyanocobalamin 1,000 mcg DAILY PO 05/25/25 10:00 06/16/25 10:54 1,000 MCG Pyridoxine HCl 50 mg DAILY PO 05/25/25 10:00 06/16/25 10:58 50 MG Ondansetron HCl 4 mg Q4HPRN PRN IV 05/25/25 18:00 Amiodarone HCl 200 mg Q12HR GT 05/29/25 10:00 06/16/25 22:41 200 MG Clopidogrel Bisulfate 75 mg DAILY NG 06/02/25 18:30 Cancel Albuterol 1.25 mg Q8HP PRN NEB 06/03/25 14:00 06/18/25 06:05 1.25 MG Acetylcysteine 200 mg Q8HR NEB 06/03/25 14:00 06/18/25 06:04 200 MG Atorvastatin Calcium 40 mg HS PO 06/07/25 22:00 06/16/25 22:42 40 MG Epoetin Norm-epbx 10,000 unit MWF@2100 SC 06/10/25 21:00 06/13/25 20:57 10,000 UNIT Midazolam HCl 50 ml @ 1 mls/hr Q24H IV 06/09/25 23:00 06/16/25 04:25 2 MLS/HR Fentanyl Citrate 250 ml @ 2.5 mls/hr Q24H IV 06/09/25 23:00 06/17/25 19:40 10 MLS/HR Vancomycin HCl 0 ml @ 0 mls/hr UD IV 06/11/25 08:45 Meropenem 50 ml @ 17 mls/hr Q12HR IV 06/13/25 14:00 06/17/25 22:06 17 MLS/HR Lactulose 30 ml TID PO 06/14/25 12:30 06/15/25 21:48 30 ML Sennosides 8.6 mg QHSP NG 06/15/25 22:00 06/15/25 21:48 8.6 MG Enteral Nutritional Formula 1,000 ml 60ML/HR NG 06/16/25 10:45 Vasopressin 20 units/Sodium Chloride 100 ml @ 9 mls/hr Q11H7M IV 06/16/25 16:00 06/18/25 01:03 9 MLS/HR Norepinephrine Bitartrate 32 mg/ Sodium Chloride 250 ml @ 0.469 mls/ hr Q24H IV 06/16/25 18:15 06/17/25 20:40 0.469 MLS/HR Enteral Nutritional Formula 30 ml Q1HR PO 06/18/25 06:00 Diagnostic Test (Pha) 1 strip Q6HR 06/18/25 00:00 06/18/25 06:00 1 STRIP Insulin Human Regular Q6HR SC 06/18/25 00:00 06/18/25 06:00 2 UNITS Dextrose 50 ml UD PRN IV 06/17/25 20:00 Examination: LUNGS:Normal, CVS:Normal, MSK:Abnormal laboratory and microbiology Laboratory Tests 06/18/25 02:42 Test 06/18/25 02:42 Range/Units Serum Glucose 165 H 74-106 mg/dL Microbiology Date/Time Source Procedure Growth Status 06/16/25 12:31 Urine - Midstream Clean Catch Urine Culture - Preliminary Resulted 06/11/25 12:50 Sputum Gram Stain - Final Complete 06/11/25 12:50 Respiratory Culture - Final Acinetobacter baumanii/haemol Complete 06/11/25 09:40 Blood Blood Culture - Final NO GROWTH AFTER 5 DAYS OF INCUBATION. Complete 06/11/25 08:30 Nose MRSA Screen - Final Complete Problem List/Assessment/Plan Problem List/Assessment/Plan Acute kidney injury superimposed Chronic Kidney Disease stage IV secondary hemodynamic mediated, FeNa < 1%, oligo anuric requiring intermittent hemodialysis Chronic kidney disease stage IV followed by Dr. Ponce Gangrene left foot, status post left below-knee amputation 05/20 Left lower extremity DVT Diabetes mellitus type 2 Chronic diastolic Congestive heart failure NSTEMI Hyponatremia due to excess H2O, resolved with hemodialysis Dropping hemoglobin Anemia due to blood loss Metabolic acidosis Septic shock History of testicular cancer Cellulitis lower extremity Hypokalemia, replace Recommendations Next hemodialysis 06/20 Epogen 22001 subQ 3 times weekly Albumin 25% p.r.n. hemodialysis Strict I&Os kidney ultrasound reported bilateral small echogenic kidneys, no obstruction Fluid restrictions KCL replacement IV pressors for blood pressure support Packed red blood cell transfusion p.r.n. Nepro enteral feeding Poor prognosis Total care time 25 minutes minute Plan discussed with: Other (Nurse) Dietary Evaluation Review Comments: 1) [facility] 2) Armen 1 pk BID, MVI w/ minerals 1 tab daily, VitC 500mg BID, Zinc sulfate 220mg BID x 10 days 3) Monitor NPO status, lab values, weight trend, and I/O Expected Outcomes/Goals: To meet >75% estimated needs Wound to improve Fu 2-3 days QUOC QUINONEZ MD Jun 18, 2025 10:14
--- NOTE | 2025-06-18 11:41 | DVHPN2 ---
Progress Note Date Seen: Jun 18, 2025 Has the PT tested + for MRSA If YES, has PT been informed?: No Medical Necessity Reason Pt with a Central, PICC or Fol: Yes The following are medically ne: PICC Line, Leung Catheter Objective vital signs Vital Sign Date Time Temp Pulse Resp B/P (MAP) Pulse Ox O2 Delivery O2 Flow Rate FiO2 06/18/25 09:29 82 13 122/62 (82) 97 30 06/18/25 08:00 Mechanical Ventilator+ 06/18/25 04:15 97.7 97.7 Total Intake and Output 06/17/25 06/17/25 06/18/25 15:00 23:00 07:00 Intake Total 284.345 ml 213.344 ml 150.876 ml Output Total 50 ml Balance 284.345 ml 163.344 ml 150.876 ml medications Current Medications Medications Dose Ordered Sig/Bandar Route Start Time Stop Time Status Last Admin Dose Admin Acetaminophen 650 mg Q6HP PRN PO 05/04/25 15:00 06/04/25 05:45 650 MG Sodium Chloride 10 ml QSHIFT@,22 IV 05/19/25 22:00 06/17/25 21:59 10 ML Pantoprazole Sodium 40 mg DAILY IV 05/21/25 10:00 06/17/25 11:08 40 MG Artificial Tears 1 drop Q6HP PRN EACHEYE 05/21/25 05:00 06/03/25 21:42 1 DROP Folic Acid 1 mg DAILY PO 05/25/25 10:00 06/16/25 10:54 1 MG Multivitamins 1 tab DAILY PO 05/25/25 10:00 06/16/25 10:55 1 TAB Cyanocobalamin 1,000 mcg DAILY PO 05/25/25 10:00 06/16/25 10:54 1,000 MCG Pyridoxine HCl 50 mg DAILY PO 05/25/25 10:00 06/16/25 10:58 50 MG Ondansetron HCl 4 mg Q4HPRN PRN IV 05/25/25 18:00 Amiodarone HCl 200 mg Q12HR GT 05/29/25 10:00 06/16/25 22:41 200 MG Clopidogrel Bisulfate 75 mg DAILY NG 06/02/25 18:30 Cancel Albuterol 1.25 mg Q8HP PRN NEB 06/03/25 14:00 06/18/25 06:05 1.25 MG Acetylcysteine 200 mg Q8HR NEB 06/03/25 14:00 06/18/25 06:04 200 MG Atorvastatin Calcium 40 mg HS PO 06/07/25 22:00 06/16/25 22:42 40 MG Epoetin Norm-epbx 10,000 unit MWF@2100 SC 06/10/25 21:00 06/13/25 20:57 10,000 UNIT Midazolam HCl 50 ml @ 1 mls/hr Q24H IV 06/09/25 23:00 06/16/25 04:25 2 MLS/HR Fentanyl Citrate 250 ml @ 2.5 mls/hr Q24H IV 06/09/25 23:00 06/17/25 19:40 10 MLS/HR Vancomycin HCl 0 ml @ 0 mls/hr UD IV 06/11/25 08:45 Meropenem 50 ml @ 17 mls/hr Q12HR IV 06/13/25 14:00 06/17/25 22:06 17 MLS/HR Lactulose 30 ml TID PO 06/14/25 12:30 06/15/25 21:48 30 ML Sennosides 8.6 mg QHSP NG 06/15/25 22:00 06/15/25 21:48 8.6 MG Enteral Nutritional Formula 1,000 ml 60ML/HR NG 06/16/25 10:45 Vasopressin 20 units/Sodium Chloride 100 ml @ 9 mls/hr Q11H7M IV 06/16/25 16:00 06/18/25 01:03 9 MLS/HR Norepinephrine Bitartrate 32 mg/ Sodium Chloride 250 ml @ 0.469 mls/ hr Q24H IV 06/16/25 18:15 06/17/25 20:40 0.469 MLS/HR Enteral Nutritional Formula 30 ml Q1HR PO 06/18/25 06:00 Diagnostic Test (Pha) 1 strip Q6HR 06/18/25 00:00 06/18/25 06:00 1 STRIP Insulin Human Regular Q6HR SC 06/18/25 00:00 06/18/25 06:00 2 UNITS Dextrose 50 ml UD PRN IV 06/17/25 20:00 laboratory and microbiology Laboratory Tests 06/18/25 02:42 Test 06/18/25 02:42 Range/Units Serum Glucose 165 H 74-106 mg/dL Microbiology Date/Time Source Procedure Growth Status 06/17/25 16:00 Back Gram Stain - Final Resulted 06/17/25 16:00 Back Wound Culture - Preliminary Resulted 06/16/25 12:31 Urine - Midstream Clean Catch Urine Culture - Preliminary Resulted 06/11/25 12:50 Sputum Gram Stain - Final Complete 06/11/25 12:50 Respiratory Culture - Final Acinetobacter baumanii/haemol Complete 06/11/25 09:40 Blood Blood Culture - Final NO GROWTH AFTER 5 DAYS OF INCUBATION. Complete Problem List/Assessment/Plan Problem List/Assessment/Plan AFEBRILE VSS PEG IN PLACE CLOSE OBSERVATION NURSE AT BEDSIDE Plan discussed with: Patient Dietary Evaluation Review Comments: 1) [facility] + cardiac diet 2) Armen 1 pk BID, MVI w/ minerals 1 tab daily, VitC 500mg BID, Zinc sulfate 220mg BID x 10 days 3) Monitor NPO status, lab values, weight trend, and I/O Expected Outcomes/Goals: To meet >75% estimated needs Wound to improve Fu 2-3 days BEVERLEY BERGMAN MD Jun 18, 2025 11:41
--- NOTE | 2025-06-18 15:42 | DVHPN2 ---
Progress Note - Dictate Date Seen: Jun 18, 2025 Has the PT tested + for MRSA If YES, has PT been informed?: No Medical Necessity Reason Pt with a Central, PICC or Fol: Yes The following are medically ne: PICC Line, Leung Catheter vital signs Vital Sign Date Time Temp Pulse Resp B/P (MAP) Pulse Ox O2 Delivery O2 Flow Rate FiO2 06/18/25 15:15 92 15 99/46 (63) 96 06/18/25 14:00 Mechanical Ventilator+ 30 30 06/18/25 04:15 97.7 97.7 Total Intake and Output 06/17/25 06/17/25 06/18/25 15:00 23:00 07:00 Intake Total 284.345 ml 213.344 ml 150.876 ml Output Total 50 ml Balance 284.345 ml 163.344 ml 150.876 ml medications Current Medications Medications Dose Ordered Sig/Bandar Route Start Time Stop Time Status Last Admin Dose Admin Acetaminophen 650 mg Q6HP PRN PO 05/04/25 15:00 06/04/25 05:45 650 MG Sodium Chloride 10 ml QSHIFT@,22 IV 05/19/25 22:00 06/18/25 12:17 10 ML Pantoprazole Sodium 40 mg DAILY IV 05/21/25 10:00 06/18/25 12:17 40 MG Artificial Tears 1 drop Q6HP PRN EACHEYE 05/21/25 05:00 06/03/25 21:42 1 DROP Folic Acid 1 mg DAILY PO 05/25/25 10:00 06/18/25 12:16 1 MG Multivitamins 1 tab DAILY PO 05/25/25 10:00 06/18/25 12:16 1 TAB Cyanocobalamin 1,000 mcg DAILY PO 05/25/25 10:00 06/18/25 12:15 1,000 MCG Pyridoxine HCl 50 mg DAILY PO 05/25/25 10:00 06/18/25 12:16 50 MG Ondansetron HCl 4 mg Q4HPRN PRN IV 05/25/25 18:00 Amiodarone HCl 200 mg Q12HR GT 05/29/25 10:00 06/18/25 12:15 200 MG Clopidogrel Bisulfate 75 mg DAILY NG 06/02/25 18:30 Cancel Albuterol 1.25 mg Q8HP PRN NEB 06/03/25 14:00 06/18/25 14:02 1.25 MG Acetylcysteine 200 mg Q8HR NEB 06/03/25 14:00 06/18/25 14:03 200 MG Atorvastatin Calcium 40 mg HS PO 06/07/25 22:00 06/16/25 22:42 40 MG Epoetin Norm-epbx 10,000 unit MWF@2100 SC 06/10/25 21:00 06/13/25 20:57 10,000 UNIT Midazolam HCl 50 ml @ 1 mls/hr Q24H IV 06/09/25 23:00 06/16/25 04:25 2 MLS/HR Fentanyl Citrate 250 ml @ 2.5 mls/hr Q24H IV 06/09/25 23:00 06/17/25 19:40 10 MLS/HR Vancomycin HCl 0 ml @ 0 mls/hr UD IV 06/11/25 08:45 Meropenem 50 ml @ 17 mls/hr Q12HR IV 06/13/25 14:00 06/18/25 12:17 17 MLS/HR Lactulose 30 ml TID PO 06/14/25 12:30 06/18/25 15:35 30 ML Sennosides 8.6 mg QHSP NG 06/15/25 22:00 06/15/25 21:48 8.6 MG Enteral Nutritional Formula 1,000 ml 60ML/HR NG 06/16/25 10:45 Vasopressin 20 units/Sodium Chloride 100 ml @ 9 mls/hr Q11H7M IV 06/16/25 16:00 06/18/25 01:03 9 MLS/HR Norepinephrine Bitartrate 32 mg/ Sodium Chloride 250 ml @ 0.469 mls/ hr Q24H IV 06/16/25 18:15 06/17/25 20:40 0.469 MLS/HR Enteral Nutritional Formula 30 ml Q1HR PO 06/18/25 06:00 06/18/25 15:00 30 ML Diagnostic Test (Pha) 1 strip Q6HR 06/18/25 00:00 06/18/25 12:07 1 STRIP Insulin Human Regular Q6HR SC 06/18/25 00:00 06/18/25 12:08 2 UNITS Dextrose 50 ml UD PRN IV 06/17/25 20:00 laboratory and microbiology Laboratory Tests 06/18/25 02:42 Test 06/18/25 02:42 Range/Units Serum Glucose 165 H 74-106 mg/dL Assessment/Plan Impression Acute hypoxemic respiratory failure Atelectasis Fluid overload Pleural effusions Patient seen and examined in the ICU Events on the ventilator s/p reintubation ac volume control peep 7 fi02 30% awaiting tracheostomy s/p peg s/p trache abg: reviewed CXR reviewed Management plan Vent support Titrate to maintain sats 90% or above Sedation holidays daily Continue antibiotics F/u cultures Bronchodilators diurese/HD Monitor renal function Monitor electrolytes Supplement as needed Pressors as needed for hemodynamic support To maintain a mean arterial pressure of 65 mmHg full code dispo LTAC Critical care time 35 minutes Dietary Evaluation Review Comments: 1) Advance to [facility] 75gm + cardiac diet 2) Armen 1 pk BID, MVI w/ minerals 1 tab daily, VitC 500mg BID, Zinc sulfate 220mg BID x 10 days 3) Monitor NPO status, lab values, weight trend, and I/O Expected Outcomes/Goals: To meet >75% estimated needs Wound to improve Fu 2-3 days Plan discussed with: Other (rn) DELROY REDD MD Jun 18, 2025 15:42
[2025-06-18] MEDS: EPOETIN ALFA-EPBX 10,000 UNIT/1ML VIAL SC ONE (21:00)
--- NOTE | 2025-06-18 21:07 | DVHPN2 ---
Progress Note - Dictate Date Seen: Jun 18, 2025 Has the PT tested + for MRSA If YES, has PT been informed?: No Medical Necessity Reason Pt with a Central, PICC or Fol: Yes The following are medically ne: PICC Line, Leung Catheter Subjective Patient underwent a tracheostomy this morning His G-tube site is clean Critically ill patient with NSTEMI Type 2, EF 20%, shock requiring vasopressors, ESRD on HD, ventilator dependence, Hemoglobin 8.4 Brown stool no bleeding vital signs Vital Sign Date Time Temp Pulse Resp B/P (MAP) Pulse Ox O2 Delivery O2 Flow Rate FiO2 06/18/25 20:30 107/49 06/18/25 20:25 95 13 98 30 06/18/25 18:19 Mechanical Ventilator 06/18/25 16:15 97.6 97.6 Total Intake and Output 06/17/25 06/17/25 06/18/25 15:00 23:00 07:00 Intake Total 284.345 ml 213.344 ml 150.876 ml Output Total 50 ml Balance 284.345 ml 163.344 ml 150.876 ml medications Current Medications Medications Dose Ordered Sig/Bandar Route Start Time Stop Time Status Last Admin Dose Admin Acetaminophen 650 mg Q6HP PRN PO 05/04/25 15:00 06/04/25 05:45 650 MG Sodium Chloride 10 ml QSHIFT@10,22 IV 05/19/25 22:00 06/18/25 12:17 10 ML Pantoprazole Sodium 40 mg DAILY IV 05/21/25 10:00 06/18/25 12:17 40 MG Artificial Tears 1 drop Q6HP PRN EACHEYE 05/21/25 05:00 06/03/25 21:42 1 DROP Folic Acid 1 mg DAILY PO 05/25/25 10:00 06/18/25 12:16 1 MG Multivitamins 1 tab DAILY PO 05/25/25 10:00 06/18/25 12:16 1 TAB Cyanocobalamin 1,000 mcg DAILY PO 05/25/25 10:00 06/18/25 12:15 1,000 MCG Pyridoxine HCl 50 mg DAILY PO 05/25/25 10:00 06/18/25 12:16 50 MG Ondansetron HCl 4 mg Q4HPRN PRN IV 05/25/25 18:00 Amiodarone HCl 200 mg Q12HR GT 05/29/25 10:00 06/18/25 12:15 200 MG Clopidogrel Bisulfate 75 mg DAILY NG 06/02/25 18:30 Cancel Albuterol 1.25 mg Q8HP PRN NEB 06/03/25 14:00 06/18/25 14:02 1.25 MG Acetylcysteine 200 mg Q8HR NEB 06/03/25 14:00 06/18/25 14:03 200 MG Atorvastatin Calcium 40 mg HS PO 06/07/25 22:00 06/16/25 22:42 40 MG Epoetin Norm-epbx 10,000 unit MWF@2100 SC 06/10/25 21:00 06/13/25 20:57 10,000 UNIT Midazolam HCl 50 ml @ 1 mls/hr Q24H IV 06/09/25 23:00 06/16/25 04:25 2 MLS/HR Fentanyl Citrate 250 ml @ 2.5 mls/hr Q24H IV 06/09/25 23:00 06/17/25 19:40 10 MLS/HR Vancomycin HCl 0 ml @ 0 mls/hr UD IV 06/11/25 08:45 Meropenem 50 ml @ 17 mls/hr Q12HR IV 06/13/25 14:00 06/18/25 12:17 17 MLS/HR Lactulose 30 ml TID PO 06/14/25 12:30 06/18/25 15:35 30 ML Sennosides 8.6 mg QHSP NG 06/15/25 22:00 06/15/25 21:48 8.6 MG Enteral Nutritional Formula 1,000 ml 60ML/HR NG 06/16/25 10:45 Vasopressin 20 units/Sodium Chloride 100 ml @ 9 mls/hr Q11H7M IV 06/16/25 16:00 06/18/25 01:03 9 MLS/HR Norepinephrine Bitartrate 32 mg/ Sodium Chloride 250 ml @ 0.469 mls/ hr Q24H IV 06/16/25 18:15 06/17/25 20:40 0.469 MLS/HR Enteral Nutritional Formula 30 ml Q1HR PO 06/18/25 06:00 06/18/25 20:17 30 ML Diagnostic Test (Pha) 1 strip Q6HR 06/18/25 00:00 06/18/25 18:33 1 STRIP Insulin Human Regular Q6HR SC 06/18/25 00:00 06/18/25 12:08 2 UNITS Dextrose 50 ml UD PRN IV 06/17/25 20:00 objective General Appearance: Other (Intubated, on vent.) HEENT: Atraumatic, PERRLA Lungs: Clear to auscultation, Other (On vent; transmitted breath sounds bilaterally. Decreased air entry bilaterally. No wheezing or rhonchi. Bibasilar crackles.) Cardiovascular: Normal S1, Normal S2, Other (Atrial fibrillation) Abdomen: Normal bowel sounds, Soft, No tenderness, No hepatospenomegaly Genitourinary: No Apparent Abnormalities (Leung catheter) Musculoskeletal: Other Extremities: Normal pulses, Other (Left BKA stump intact, trace edema ) Neuro: Other (Sedated.) laboratory and microbiology Laboratory Tests 06/18/25 02:42 Test 06/18/25 02:42 Range/Units Serum Glucose 165 H 74-106 mg/dL Problems(with codes): (1) Acute kidney injury superimposed on CKD (2) Gravely disabled (3) Eschar of heel (4) Near syncope (5) Triple vessel coronary artery disease (6) Generalized weakness (7) Cholelithiasis (8) Chronic kidney disease Prognosis Plan Continue IV antibiotics Okay to start G-tube feedings as per orders at 30 mL/hour Continue to monitor labs Dietary Evaluation Review Comments: 1) Advance to [facility] 75gm + cardiac diet 2) Armen 1 pk BID, MVI w/ minerals 1 tab daily, VitC 500mg BID, Zinc sulfate 220mg BID x 10 days 3) Monitor NPO status, lab values, weight trend, and I/O Expected Outcomes/Goals: To meet >75% estimated needs Wound to improve Fu 2-3 days Plan discussed with: Other (ICU Nurse) GO BERGMAN MD Jun 18, 2025 21:07
[2025-06-19] VITALS (109 sets, daily range): BP systolic 85–124; BP diastolic 39–66; PULSE 82–102; RESP 9–40; TEMP 98–98.9; O2SAT 91–100
[2025-06-19 04:03] LABS: Anion Gap 13 (5-15); Carbon Dioxide 26 mmol/L (20-31); Chloride 107 mmol/L (98-107); Hemoglobin 8.3 g/dL (13.5-17.5); Mean Corpuscular Volume 93.1 fL (80.0-100.0); Nucleated Red Blood Cells % 0.1 %; Potassium 3.6 mmol/L (3.5-5.1)
[2025-06-19 04:04] LABS: Calcium 9.2 mg/dL (8.7-10.4)
[2025-06-19 04:05] LABS: Hematocrit 25.0 % (41.0-53.0); Mean Corpuscular Hemoglobin 30.9 pg (28.0-32.0)
[2025-06-19 04:09] LABS: BUN/Creatinine Ratio 7.6 (10.0-20.0); Blood Urea Nitrogen 20 mg/dL (9-23)
[2025-06-19 05:06] LABS: Glucose 126 mg/dL (74-106); Sodium 146 mmol/L (136-145)
[2025-06-19 05:53] LABS: Anisocytosis Moderate; Macrocytosis Slight
[2025-06-19 05:54] LABS: Polychromasia Slight
--- NOTE | 2025-06-19 06:00 | DVH ---
EXAM: XY CHEST XRAY 1 VIEW HISTORY: on vent COMPARISON: XY CHEST PORTABLE on DOS: 06/18/25, XY CHEST XRAY 1 VIEW on DOS: 06/18/25, XY CHEST XRAY 1 VIEW on DOS: 06/17/25, XY CHEST XRAY 1 VIEW on DOS: 06/16/25, XY CHEST XRAY 1 VIEW on DOS: 06/15/25 TECHNIQUE: Portable AP view of the chest was performed. FINDINGS: Tracheostomy, left upper extremity PICC line, and right chest tunneled dialysis catheter are re-ident ified. There are diffuse bilateral hazy interstitial opacities and diffuse interstitial prominence, g reater in the lung bases. No pneumothorax. The heart is not enlarged. Probable old right proximal hum eral fracture. IMPRESSION: 1. Tracheostomy ventilation. 2. Diffuse bilateral interstitial and hazy opacities may be due to CHF, layering pleural effusions, a nd/or bilateral pneumonia.
[2025-06-19] MEDS: METOCLOPRAMIDE HCL 5MG/ml INJ 2ml VIAL IV SCH (06:05)
[2025-06-19 06:31] LABS: Base Excess 2.3 mmol/L (-2.0-3.0)
--- NOTE | 2025-06-19 11:59 | DVHPN2 ---
Progress Note Date Seen: Jun 19, 2025 Has the PT tested + for MRSA If YES, has PT been informed?: No Medical Necessity Reason Pt with a Central, PICC or Fol: Yes The following are medically ne: PICC Line, Leung Catheter Objective vital signs Vital Sign Date Time Temp Pulse Resp B/P (MAP) Pulse Ox O2 Delivery O2 Flow Rate FiO2 06/19/25 11:04 94 13 104/52 (69) 99 30 06/19/25 08:00 Mechanical Ventilator+ 06/19/25 04:00 98.2 98.2 Total Intake and Output 06/18/25 06/18/25 06/19/25 15:00 23:00 07:00 Intake Total 16.5 ml 345.0 ml 308 ml Balance 16.5 ml 345.0 ml 308 ml medications Current Medications Medications Dose Ordered Sig/Bandar Route Start Time Stop Time Status Last Admin Dose Admin Acetaminophen 650 mg Q6HP PRN PO 05/04/25 15:00 06/04/25 05:45 650 MG Sodium Chloride 10 ml QSHIFT@ IV 05/19/25 22:00 06/19/25 10:00 10 ML Pantoprazole Sodium 40 mg DAILY IV 05/21/25 10:00 06/19/25 11:07 40 MG Artificial Tears 1 drop Q6HP PRN EACHEYE 05/21/25 05:00 06/03/25 21:42 1 DROP Folic Acid 1 mg DAILY PO 05/25/25 10:00 06/19/25 11:07 1 MG Multivitamins 1 tab DAILY PO 05/25/25 10:00 06/19/25 11:07 1 TAB Cyanocobalamin 1,000 mcg DAILY PO 05/25/25 10:00 06/19/25 11:07 1,000 MCG Pyridoxine HCl 50 mg DAILY PO 05/25/25 10:00 06/19/25 11:07 50 MG Ondansetron HCl 4 mg Q4HPRN PRN IV 05/25/25 18:00 Amiodarone HCl 200 mg Q12HR GT 05/29/25 10:00 06/19/25 11:07 200 MG Clopidogrel Bisulfate 75 mg DAILY NG 06/02/25 18:30 Cancel Albuterol 1.25 mg Q8HP PRN NEB 06/03/25 14:00 06/19/25 05:23 1.25 MG Acetylcysteine 200 mg Q8HR NEB 06/03/25 14:00 06/19/25 05:23 200 MG Atorvastatin Calcium 40 mg HS PO 06/07/25 22:00 06/18/25 21:47 40 MG Epoetin Norm-epbx 10,000 unit MWF@2100 SC 06/10/25 21:00 06/18/25 22:45 10,000 UNIT Midazolam HCl 50 ml @ 1 mls/hr Q24H IV 06/09/25 23:00 06/16/25 04:25 2 MLS/HR Fentanyl Citrate 250 ml @ 2.5 mls/hr Q24H IV 06/09/25 23:00 06/19/25 00:36 10 MLS/HR Vancomycin HCl 0 ml @ 0 mls/hr UD IV 06/11/25 08:45 Lactulose 30 ml TID PO 06/14/25 12:30 06/19/25 06:05 30 ML Sennosides 8.6 mg QHSP NG 06/15/25 22:00 06/18/25 21:46 8.6 MG Enteral Nutritional Formula 1,000 ml 60ML/HR NG 06/16/25 10:45 Vasopressin 20 units/Sodium Chloride 100 ml @ 9 mls/hr Q11H7M IV 06/16/25 16:00 06/18/25 01:03 9 MLS/HR Norepinephrine Bitartrate 32 mg/ Sodium Chloride 250 ml @ 0.469 mls/ hr Q24H IV 06/16/25 18:15 06/17/25 20:40 0.469 MLS/HR Diagnostic Test (Pha) 1 strip Q6HR 06/18/25 00:00 06/19/25 06:06 1 STRIP Insulin Human Regular Q6HR SC 06/18/25 00:00 06/19/25 06:06 2 UNITS Dextrose 50 ml UD PRN IV 06/17/25 20:00 Meropenem 50 ml @ 17 mls/hr DAILY@2200 IV 06/19/25 22:00 laboratory and microbiology Laboratory Tests 06/19/25 03:20 Test 06/19/25 03:20 Range/Units Serum Glucose 126 H 74-106 mg/dL Problem List/Assessment/Plan Problem List/Assessment/Plan 05/24/25 intubated, receiving hemodialysis left BK amputation being cared for by wound service, wound vac in place, please recall me if needed, will sign off for now, carmen need to stay in wound for another two weeks. 06/13/25 I AM BEING REQUESTED TO DO A TRACHEOSTOMY FOR THIS PATIENT, REVIEWED HIS CHART HIS COAGULOPATHY MUST BE CORRECTED PRIOR TO PROCEEDING WITH TRACHEOSTOMY(HAVE SO INDICATED TO PT'S NURSE). PATIENT IS TENTATIVELY SCHEDULED FOR TRACHEOSTOMY Friday ,PROVIDED THAT VENT.SETTINGS WILL BE ACCEPTABLE AND COAGULOPATHY CORRECTED BY THEN. 06/18/25 post tracheostomy CXR reviewed, tracheostomy in good position with tip well above the livier, both lungs well expanded, 06/19/25 cxr stable,tracheostomy in good position, no problems with tracheostomy reported, i will sign off, please recall if needed Plan discussed with: Other Dietary Evaluation Review Comments: 1) Advance to [facility] 75gm + cardiac diet 2) Armen 1 pk BID, MVI w/ minerals 1 tab daily, VitC 500mg BID, Zinc sulfate 220mg BID x 10 days 3) Monitor NPO status, lab values, weight trend, and I/O Expected Outcomes/Goals: To meet >75% estimated needs Wound to improve Fu 2-3 days DOUG URENA MD Jun 19, 2025 11:59
--- NOTE | 2025-06-19 12:30 | DVHPN2 ---
Progress Note - Dictate Date Seen: Jun 19, 2025 Medical Necessity Reason Pt with a Central, PICC or Fol: Yes The following are medically ne: PICC Line, Leung Catheter vital signs Vital Sign Date Time Temp Pulse Resp B/P (MAP) Pulse Ox O2 Delivery O2 Flow Rate FiO2 06/19/25 11:45 94 15 109/51 (70) 99 06/19/25 11:04 30 06/19/25 10:00 Mechanical Ventilator+ 06/19/25 08:00 98.8 98.8 Total Intake and Output 06/18/25 06/18/25 06/19/25 15:00 23:00 07:00 Intake Total 16.5 ml 345.0 ml 308 ml Balance 16.5 ml 345.0 ml 308 ml medications Current Medications Medications Dose Ordered Sig/Bandar Route Start Time Stop Time Status Last Admin Dose Admin Acetaminophen 650 mg Q6HP PRN PO 05/04/25 15:00 06/04/25 05:45 650 MG Sodium Chloride 10 ml QSHIFT@ IV 05/19/25 22:00 06/19/25 10:00 10 ML Pantoprazole Sodium 40 mg DAILY IV 05/21/25 10:00 06/19/25 11:07 40 MG Artificial Tears 1 drop Q6HP PRN EACHEYE 05/21/25 05:00 06/03/25 21:42 1 DROP Folic Acid 1 mg DAILY PO 05/25/25 10:00 06/19/25 11:07 1 MG Multivitamins 1 tab DAILY PO 05/25/25 10:00 06/19/25 11:07 1 TAB Cyanocobalamin 1,000 mcg DAILY PO 05/25/25 10:00 06/19/25 11:07 1,000 MCG Pyridoxine HCl 50 mg DAILY PO 05/25/25 10:00 06/19/25 11:07 50 MG Ondansetron HCl 4 mg Q4HPRN PRN IV 05/25/25 18:00 Amiodarone HCl 200 mg Q12HR GT 05/29/25 10:00 06/19/25 11:07 200 MG Clopidogrel Bisulfate 75 mg DAILY NG 06/02/25 18:30 Cancel Albuterol 1.25 mg Q8HP PRN NEB 06/03/25 14:00 06/19/25 05:23 1.25 MG Acetylcysteine 200 mg Q8HR NEB 06/03/25 14:00 06/19/25 05:23 200 MG Atorvastatin Calcium 40 mg HS PO 06/07/25 22:00 06/18/25 21:47 40 MG Epoetin Norm-epbx 10,000 unit MWF@2100 SC 06/10/25 21:00 06/18/25 22:45 10,000 UNIT Midazolam HCl 50 ml @ 1 mls/hr Q24H IV 06/09/25 23:00 06/16/25 04:25 2 MLS/HR Fentanyl Citrate 250 ml @ 2.5 mls/hr Q24H IV 06/09/25 23:00 06/19/25 00:36 10 MLS/HR Vancomycin HCl 0 ml @ 0 mls/hr UD IV 06/11/25 08:45 Lactulose 30 ml TID PO 06/14/25 12:30 06/19/25 06:05 30 ML Sennosides 8.6 mg QHSP NG 06/15/25 22:00 06/18/25 21:46 8.6 MG Enteral Nutritional Formula 1,000 ml 60ML/HR NG 06/16/25 10:45 Vasopressin 20 units/Sodium Chloride 100 ml @ 9 mls/hr Q11H7M IV 06/16/25 16:00 06/18/25 01:03 9 MLS/HR Norepinephrine Bitartrate 32 mg/ Sodium Chloride 250 ml @ 0.469 mls/ hr Q24H IV 06/16/25 18:15 06/17/25 20:40 0.469 MLS/HR Diagnostic Test (Pha) 1 strip Q6HR 06/18/25 00:00 06/19/25 06:06 1 STRIP Insulin Human Regular Q6HR SC 06/18/25 00:00 06/19/25 06:06 2 UNITS Dextrose 50 ml UD PRN IV 06/17/25 20:00 Meropenem 50 ml @ 17 mls/hr DAILY@2200 IV 06/19/25 22:00 laboratory and microbiology Laboratory Tests 06/19/25 03:20 Test 06/19/25 03:20 Range/Units Serum Glucose 126 H 74-106 mg/dL Assessment/Plan Impression Acute hypoxemic respiratory failure Atelectasis Fluid overload Pleural effusions Patient seen and examined in the ICU Events on the ventilator s/p tracheostomy peep 7 fi02 30% s/p peg abg: reviewed CXR reviewed Management plan Vent support Titrate to maintain sats 90% or above Sedation holidays daily Continue antibiotics F/u cultures Bronchodilators diurese/HD Monitor renal function Monitor electrolytes Supplement as needed dispo LTAC Critical care time 35 minutes Dietary Evaluation Review Comments: 1) Advance to [facility] 75gm + cardiac diet 2) Armen 1 pk BID, MVI w/ minerals 1 tab daily, VitC 500mg BID, Zinc sulfate 220mg BID x 10 days 3) Monitor NPO status, lab values, weight trend, and I/O Expected Outcomes/Goals: To meet >75% estimated needs Wound to improve Fu 2-3 days Plan discussed with: Other (Rn) DELROY REDD MD Jun 19, 2025 12:30
--- NOTE | 2025-06-19 14:27 | DVHPNRES ---
Progress Note Date Seen: Jun 19, 2025 Resident Creating Document: FABRICIO CALVIN RESIDENT Has the PT tested + for MRSA If YES, has PT been informed?: No Medical Necessity Reason Pt with a Central, PICC or Fol: Yes The following are medically ne: PICC Line, Leung Catheter Subjective Review of Systems The patient remains critically ill but hemodynamically and respiratory-plascencia stable following recent tracheostomy and PEG tube placement. The tracheostomy is functioning appropriately with no evidence of air leak, bleeding, or obstruction. The PEG tube site is clean, dry, and intact. Due to high gastric residuals (~380 mL) noted yesterday, continuous tube feeds (previously 30 mL/hr) were transitioned to intermittent bolus feeds of 150 mL every 4 hours, which the patient is tolerating better. The stool output is brown with no signs of bleeding or melena. Case management and social work are currently arranging for transfer to a long- term acute care hospital (LT) for ventilator weaning, nutritional optimization, and continued rehabilitation. Vitals: BP 109/55 mmHg, HR 86 bpm, RR 14/min, SpO? 98% on FiO? 30% via tracheostomy ventilator.?Hemodynamics stable without vasopressors. Lab review: * Hgb 8.3 g/dL (stable), WBC 6.7 K/?L (normal), Plt 76 K/?L (improved from 52 K yesterday) * Creatinine 2.64 mg/dL (high), GFR 25 mL/min (low, stable for ESRD) * Electrolytes within normal limits, no acidosis. * CXR: Stable; tracheostomy tube in satisfactory position, mild cardiomegaly, no pneumothorax, unchanged vascular congestion. * Gastrointestinal: 2 bowel movements in the last 24 hrs, no blood noted. Assessment: Overall, the patient remains critically ill but stable, with improved platelet count a Tracheostomy and PEG sites are healing well. Hemodialysis continues per nephrology schedule. REVIEW OF SYSTEMS (Limited Sedated, Intubated via Tracheostomy) * General: Critically ill, stable, on mechanical ventilation via trach. * HEENT: Tracheostomy in situ, clean, intact. * Cardiac: Regular rhythm, no new murmurs, off vasopressors. * Respiratory: Ventilated, bilateral air entry, no rales/wheezing. * GI: Abdomen soft, non-tender, PEG site clean/dry/intact; tolerating bolus feeds. * : Anuric, on dialysis. * Skin: Warm, wounds healing, no erythema or discharge at procedural sites. * Neuro: Sedated, intermittently responsive; pupils reactive. Objective vital signs Vital Sign Date Time Temp Pulse Resp B/P (MAP) Pulse Ox O2 Delivery O2 Flow Rate FiO2 06/19/25 13:12 84 12 102/46 (64) 96 30 06/19/25 12:00 Mechanical Ventilator+ 06/19/25 08:00 98.8 98.8 Total Intake and Output 06/18/25 06/18/25 06/19/25 15:00 23:00 07:00 Intake Total 16.5 ml 345.0 ml 308 ml Balance 16.5 ml 345.0 ml 308 ml medications Current Medications Medications Dose Ordered Sig/Bandar Route Start Time Stop Time Status Last Admin Dose Admin Acetaminophen 650 mg Q6HP PRN PO 05/04/25 15:00 06/04/25 05:45 650 MG Sodium Chloride 10 ml QSHIFT@, IV 05/19/25 22:00 06/19/25 10:00 10 ML Pantoprazole Sodium 40 mg DAILY IV 05/21/25 10:00 06/19/25 11:07 40 MG Artificial Tears 1 drop Q6HP PRN EACHEYE 05/21/25 05:00 06/03/25 21:42 1 DROP Folic Acid 1 mg DAILY PO 05/25/25 10:00 06/19/25 11:07 1 MG Multivitamins 1 tab DAILY PO 05/25/25 10:00 06/19/25 11:07 1 TAB Cyanocobalamin 1,000 mcg DAILY PO 05/25/25 10:00 06/19/25 11:07 1,000 MCG Pyridoxine HCl 50 mg DAILY PO 05/25/25 10:00 06/19/25 11:07 50 MG Ondansetron HCl 4 mg Q4HPRN PRN IV 05/25/25 18:00 Amiodarone HCl 200 mg Q12HR GT 05/29/25 10:00 06/19/25 11:07 200 MG Clopidogrel Bisulfate 75 mg DAILY NG 06/02/25 18:30 Cancel Albuterol 1.25 mg Q8HP PRN NEB 06/03/25 14:00 06/19/25 13:12 1.25 MG Acetylcysteine 200 mg Q8HR NEB 06/03/25 14:00 06/19/25 13:12 200 MG Atorvastatin Calcium 40 mg HS PO 06/07/25 22:00 06/18/25 21:47 40 MG Epoetin Norm-epbx 10,000 unit MWF@2100 SC 06/10/25 21:00 06/18/25 22:45 10,000 UNIT Midazolam HCl 50 ml @ 1 mls/hr Q24H IV 06/09/25 23:00 06/16/25 04:25 2 MLS/HR Fentanyl Citrate 250 ml @ 2.5 mls/hr Q24H IV 06/09/25 23:00 06/19/25 00:36 10 MLS/HR Vancomycin HCl 0 ml @ 0 mls/hr UD IV 06/11/25 08:45 Lactulose 30 ml TID PO 06/14/25 12:30 06/19/25 06:05 30 ML Sennosides 8.6 mg QHSP NG 06/15/25 22:00 06/18/25 21:46 8.6 MG Enteral Nutritional Formula 1,000 ml 60ML/HR NG 06/16/25 10:45 Vasopressin 20 units/Sodium Chloride 100 ml @ 9 mls/hr Q11H7M IV 06/16/25 16:00 06/18/25 01:03 9 MLS/HR Norepinephrine Bitartrate 32 mg/ Sodium Chloride 250 ml @ 0.469 mls/ hr Q24H IV 06/16/25 18:15 06/17/25 20:40 0.469 MLS/HR Diagnostic Test (Pha) 1 strip Q6HR 06/18/25 00:00 06/19/25 12:17 1 STRIP Insulin Human Regular Q6HR SC 06/18/25 00:00 06/19/25 12:17 3 UNITS Dextrose 50 ml UD PRN IV 06/17/25 20:00 Meropenem 50 ml @ 17 mls/hr DAILY@2200 IV 06/19/25 22:00 Examination General: Sedated, ventilated via trach, critically ill but stable. HEENT: Trach tube in place, no erythema, no air leak. Cardiac: S1S2 regular, no murmurs or rubs. Respiratory: Bilateral equal air entry, mild coarse breath sounds, FiO? 30%. Abdomen: Soft, non-tender, PEG site intact, no discharge. Extremities: Trace pedal edema, L BKA stump clean. Neuro: Sedated; opens eyes to pain; no focal deficits. Skin: Warm, wounds clean/dressed, no breakdown. laboratory and microbiology Laboratory Tests 06/19/25 03:20 Test 06/19/25 03:20 Range/Units Serum Glucose 126 H 74-106 mg/dL Microbiology Date/Time Source Procedure Growth Status 06/17/25 16:00 Back Gram Stain - Final Resulted 06/17/25 16:00 Wound Culture - Preliminary Enterococcus faecium - VRE Resulted 06/16/25 12:31 Urine - Midstream Clean Catch Urine Culture - Final Complete 06/11/25 12:50 Sputum Gram Stain - Final Complete 06/11/25 12:50 Respiratory Culture - Final Acinetobacter baumanii/haemol Complete 06/11/25 09:40 Blood Blood Culture - Final NO GROWTH AFTER 5 DAYS OF INCUBATION. Complete Labs and/or images reviewed: Labs reviewed by ia Problem List/Assessment/Plan Problem List/Assessment/Plan Assessment Critical, complex multi-organ failure patient. 1. Severe Sepsis / Pneumonia due to MDR organisms (MDR Acinetobacter baumannii, Stenotrophomonas, Pseudomonas, Enterobacter). On broad antimicrobials ).POA 2. Acute hypoxemic respiratory failure * On mechanical ventilation, FiO? 35%, PEEP 10, due to pneumonia and CHF. 3. 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 Cardiogenic shock secondary to ischemic cardiomyopathy ruled in * On norepinephrine and vasopressin drips, MAP target >65. 5. Atrial fibrillation previously on amiodarone drip; now rate-controlled. 6. Acute on Chronic HFrEF POA 7. PAD with Left foot gangrene s/p BKA and Status post stent placemnet stable surgical site. POA 9. Metabolic encephalopathy POA 10. History of DVT POA prophylaxis complicated by thrombocytopenia. 11. Poor prognosis given multi-organ dysfunction, infections, dialysis- dependence. 12. NSTEMI Type 2 POA ruled in * Secondary to ischemic cardiomyopathy with EF 20%, triple-vessel CAD, anemia, and critical illness. * Managed conservatively due to non-candidacy for CABG/PCI. Ischemic cardiomyopathy with severe LV systolic dysfunction (EF 20%) ruled in * LVEF 20% with anterior/apical wall hypokinesis; requiring vasopressors. Cardiogenic shock ruled in * Increasing norepinephrine requirement; evidence of poor perfusion. 13. Severe dysphagia with aspiration risk POA ruled in * PEG and tracheostomy planned for long-term support. 14. Anemia of chronic disease (CKD-related, status post-PRBC transfusion) ruled in * Stable Hgb 9.3. POA 8. Thrombocytopenia (improving) ruled in * , improving trend. 9. Type 2 diabetes mellitus, controlled POA ruled in. 10. Dyslipidemia and obesity POA chronic, continue management. Plan SYSTEM-PLASCENCIA TREATMENT PLAN Respiratory * Continue mechanical ventilation via tracheostomy (FiO? 30%, PEEP 10, TV 450, RR 1214). * Maintain SpO? > 92%. * Pulmonology to continue trach care and ventilator weaning as tolerated. * Daily ABG and CXR. Infectious Disease * Meropenem IV 1 g Q8H for MDR Acinetobacter (primary coverage). * Vancomycin IV for possible Gram-positive coverage (monitor troughs). * Monitor WBC, fever, and cultures daily. Cardiac * Daily TELEMTRY * Monitor for arrhythmia (on amiodarone 200 mg daily). * Off vasopressors, maintain MAP> 65 mmHg, SBP > 90 mmHg. * Continue Atorvastatin 40 mg HS, [id number] mg * Monitor for hypotension during HD. * Continuous telemetry monitoring. Renal * Hemodialysis with ultrafiltration today with PRBC transfusion during session. * Strict I/O, daily weights. * Avoid nephrotoxins. * Albumin 25% IV pre-dialysis as tolerated. GI / Nutrition * Reglan discontinued due to QT prolongation and bowel movement achieved. * PEG site: clean/dry/intact. * Feeding regimen: switch from continuous 30 mL/hr to bolus 150 mL every 4 hours due to prior high residuals. * Flush PEG with 30 mL sterile water before/after feeds and meds. * Continue Protonix 40 mg IV daily for gastritis/esophagitis. * Continue Lactulose 30 mL BID , senna for bowel regulation. * Monitor residuals q4h; hold feeds if >500 mL. * Dietitian consult for enteral nutrition plan Hematology / Coagulation * Monitor CBC, PT/INR, PTT daily. * Transfuse PRBC if Hgb <7 g/dL or symptomatic. * Hold Plavix for 5 days pre-tracheostomy; resume 24 hr post-procedure if stable. * Plt ; transfuse if <30 K or <50 K before procedure. * INR stable; continue to monitor. * Hold pharmacologic DVT prophylaxis due to thrombocytopenia; continue SCDs. Endocrine / Metabolic * Insulin sliding scale; maintain BG 482289 mg/dL. * Monitor electrolytes and replete as needed. Sedation / Analgesia * Continue Fentanyl and Midazolam infusions per sedation protocol (RASS -2 to - 3). * Daily sedation awakening trial when safe. Prophylaxis * DVT: SCDs only (no heparin due to thrombocytopenia). * GI: Pantoprazole daily. * Skin: Turn q2h, offload pressure points.* Continue wound care per WOCN protocol: saline irrigation, non-adherent dressings. * Monitor wound cultures and signs of infection. * Reposition q2h; offload pressure points. * CLABSI bundle: Daily line check. Discharge planning Care * Social work consult placed for LTAC placement Case discussed in detail with the attending physician, including the clinical presentation, diagnostic workup, and comprehensive management plan. The duration of time spent in direct critical care management of this patient, including evaluation, review of clinical data, coordination of care, and decision-making, was 45 minutes. Plan discussed with: Other (RN) My Orders My Orders Orders - FABRICIO CALVIN Procedure Category Date Status Time Meropenem 500mg Ivpb PHA 06/19/25 In Process (Merrem 500mg/50ml 22:00 * Dietary Consult CONS 06/19/25 Transmitted 10:56 Communication Order ORDERS 06/19/25 Transmitted 11:42 Dietary Evaluation Review Comments: 1) [facility] + cardiac diet 2) Armen 1 pk BID, MVI w/ minerals 1 tab daily, VitC 500mg BID, Zinc sulfate 220mg BID x 10 days 3) Monitor NPO status, lab values, weight trend, and I/O Expected Outcomes/Goals: To meet >75% estimated needs Wound to improve Fu 2-3 days Date of Service: Jun 19, 2025 Billing Provider: LAUREN MA MD, RAGHAVA RAO RESIDENT Jun 19, 2025 14:26
--- NOTE | 2025-06-19 16:19 | MEDREC ---
[facility] Intervention Section I [facility] Intervention: Review courses of therapy Assessment of apprpriate abx f: Skin & soft tissue infect (PRELIMINARY WOUND CULTURE (BACK) POSITIVE FOR ENTEROCOCCUS FAECIUM VRE - PLEASE CONSIDER ID CONSULTATION ) EBONI RANGEL PHARMACIST Jun 19, 2025 16:18
--- NOTE | 2025-06-19 20:40 | DVHPN2 ---
Progress Note - Dictate Date Seen: Jun 19, 2025 Has the PT tested + for MRSA If YES, has PT been informed?: No Medical Necessity Reason Pt with a Central, PICC or Fol: Yes The following are medically ne: PICC Line, Leung Catheter Subjective Patient underwent a tracheostomy this morning His G-tube site is clean Critically ill patient with NSTEMI Type 2, EF 20%, shock requiring vasopressors, ESRD on HD, ventilator dependence, Hemoglobin 8.4 Brown stool no bleeding vital signs Vital Sign Date Time Temp Pulse Resp B/P (MAP) Pulse Ox O2 Delivery O2 Flow Rate FiO2 06/19/25 18:45 92 12 114/59 (77) 97 06/19/25 18:00 Mechanical Ventilator+ 30 30 06/19/25 16:00 98.0 98.0 Total Intake and Output 06/18/25 06/18/25 06/19/25 15:00 23:00 07:00 Intake Total 16.5 ml 345.0 ml 308 ml Balance 16.5 ml 345.0 ml 308 ml medications Current Medications Medications Dose Ordered Sig/Bandar Route Start Time Stop Time Status Last Admin Dose Admin Acetaminophen 650 mg Q6HP PRN PO 05/04/25 15:00 06/04/25 05:45 650 MG Sodium Chloride 10 ml QSHIFT@10,22 IV 05/19/25 22:00 06/19/25 10:00 10 ML Pantoprazole Sodium 40 mg DAILY IV 05/21/25 10:00 06/19/25 11:07 40 MG Artificial Tears 1 drop Q6HP PRN EACHEYE 05/21/25 05:00 06/03/25 21:42 1 DROP Folic Acid 1 mg DAILY PO 05/25/25 10:00 06/19/25 11:07 1 MG Multivitamins 1 tab DAILY PO 05/25/25 10:00 06/19/25 11:07 1 TAB Cyanocobalamin 1,000 mcg DAILY PO 05/25/25 10:00 06/19/25 11:07 1,000 MCG Pyridoxine HCl 50 mg DAILY PO 05/25/25 10:00 06/19/25 11:07 50 MG Ondansetron HCl 4 mg Q4HPRN PRN IV 05/25/25 18:00 Amiodarone HCl 200 mg Q12HR GT 05/29/25 10:00 06/19/25 11:07 200 MG Clopidogrel Bisulfate 75 mg DAILY NG 06/02/25 18:30 Cancel Albuterol 1.25 mg Q8HP PRN NEB 06/03/25 14:00 06/19/25 13:12 1.25 MG Acetylcysteine 200 mg Q8HR NEB 06/03/25 14:00 06/19/25 13:12 200 MG Atorvastatin Calcium 40 mg HS PO 06/07/25 22:00 06/18/25 21:47 40 MG Epoetin Norm-epbx 10,000 unit MWF@2100 CT 06/10/25 21:00 06/18/25 22:45 10,000 UNIT Midazolam HCl 50 ml @ 1 mls/hr Q24H IV 06/09/25 23:00 06/16/25 04:25 2 MLS/HR Fentanyl Citrate 250 ml @ 2.5 mls/hr Q24H IV 06/09/25 23:00 06/19/25 00:36 10 MLS/HR Vancomycin HCl 0 ml @ 0 mls/hr UD IV 06/11/25 08:45 Lactulose 30 ml TID PO 06/14/25 12:30 06/19/25 16:30 30 ML Sennosides 8.6 mg QHSP NG 06/15/25 22:00 06/18/25 21:46 8.6 MG Enteral Nutritional Formula 1,000 ml 60ML/HR NG 06/16/25 10:45 Vasopressin 20 units/Sodium Chloride 100 ml @ 9 mls/hr Q11H7M IV 06/16/25 16:00 06/18/25 01:03 9 MLS/HR Norepinephrine Bitartrate 32 mg/ Sodium Chloride 250 ml @ 0.469 mls/ hr Q24H IV 06/16/25 18:15 06/17/25 20:40 0.469 MLS/HR Diagnostic Test (Pha) 1 strip Q6HR 06/18/25 00:00 06/19/25 18:04 1 STRIP Insulin Human Regular Q6HR SC 06/18/25 00:00 06/19/25 18:05 2 UNITS Dextrose 50 ml UD PRN IV 06/17/25 20:00 Meropenem 50 ml @ 17 mls/hr DAILY@2200 IV 06/19/25 22:00 Clopidogrel Bisulfate 75 mg DAILY PEG 06/20/25 10:00 objective General Appearance: Other (Intubated, on vent.) HEENT: Atraumatic, PERRLA Lungs: Clear to auscultation, Other (On vent; transmitted breath sounds bilaterally. Decreased air entry bilaterally. No wheezing or rhonchi. Bibasilar crackles.) Cardiovascular: Normal S1, Normal S2, Other (Atrial fibrillation) Abdomen: Normal bowel sounds, Soft, No tenderness, No hepatospenomegaly Genitourinary: No Apparent Abnormalities (Leung catheter) Musculoskeletal: Other Extremities: Normal pulses, Other (Left BKA stump intact, trace edema ) Neuro: Other (Sedated.) laboratory and microbiology Laboratory Tests 06/19/25 03:20 Test 06/19/25 03:20 Range/Units Serum Glucose 126 H 74-106 mg/dL Problems(with codes): (1) Acute kidney injury superimposed on CKD (2) Eschar of heel (3) Autonomic dysfunction (4) Near syncope (5) Triple vessel coronary artery disease (6) Generalized weakness (7) Azotemia (8) Cyclical vomiting Prognosis Plan Continue IV antibiotics Okay to start G-tube feedings as per orders at 30 mL/hour Continue to monitor labs Dietary Evaluation Review Comments: 1) Advance to [facility] 75gm + cardiac diet 2) Armen 1 pk BID, MVI w/ minerals 1 tab daily, VitC 500mg BID, Zinc sulfate 220mg BID x 10 days 3) Monitor NPO status, lab values, weight trend, and I/O Expected Outcomes/Goals: To meet >75% estimated needs Wound to improve Fu 2-3 days Plan discussed with: Other (Nurse) GO BERGMAN MD Jun 19, 2025 20:40
[2025-06-19] MEDS: MEROPENEM 500MG IVPB 50 ML IV SCH (21:24)
[2025-06-20] VITALS (105 sets, daily range): BP systolic 73–141; BP diastolic 36–81; PULSE 76–167; RESP 9–30; TEMP 98–98.9; O2SAT 94–100
--- NOTE | 2025-06-20 04:28 | DVH ---
CHEST RADIOGRAPH Indication: Acute hypoxic respi failure. Technique: Single frontal view of the chest was obtained Comparison: XY CHEST XRAY 1 VIEW on DOS: 06/19/25 FINDINGS: Lines and Tubes: Right central venous catheter terminates in the superior vena cava. The tracheostom y tube is unchanged. There is a left PICC with its tip terminating in the superior vena cava. Lungs: Bilateral airspace disease noted Pleura: There are bilateral pleural effusions. No pneumothorax. Cardiomediastinal contours: Unremarkable Bones: No acute osseous abnormality. IMPRESSION: 1. No significant change in bilateral airspace disease and bilateral pleural effusions.
[2025-06-20 04:31] LABS: Hematocrit 26.3 % (41.0-53.0); Hemoglobin 8.6 g/dL (13.5-17.5); Mean Corpuscular Hemoglobin 30.9 pg (28.0-32.0); Mean Corpuscular Volume 94.6 fL (80.0-100.0); Nucleated Red Blood Cells % 0.0 %
[2025-06-20 04:49] LABS: Anion Gap 12 (5-15); Calcium 10.0 mg/dL (8.7-10.4); Carbon Dioxide 30 mmol/L (20-31); Chloride 103 mmol/L (98-107); Potassium 3.5 mmol/L (3.5-5.1)
[2025-06-20 04:52] LABS: Sodium 145 mmol/L (136-145)
[2025-06-20 04:55] LABS: BUN/Creatinine Ratio 9.6 (10.0-20.0); Magnesium 2.2 mg/dL (1.6-2.6)
[2025-06-20] MEDS ORDERED: ALBUMIN 25% 50 ML IV ONE (05:00)
[2025-06-20 05:09] LABS: Blood Urea Nitrogen 34 mg/dL (9-23); Glucose 174 mg/dL (74-106)
[2025-06-20] MEDS: ALBUMIN 25% 100 ML IV ONE ×2 (05:27→05:28)
[2025-06-20 05:49] LABS: Anisocytosis Moderate
[2025-06-20] MEDS: SODIUM CHL 0.9% 1000 ML BAG XX ONE (06:47)
[2025-06-20 08:51] LABS: Base Excess 5.8 mmol/L (-2.0-3.0)
[2025-06-20] MEDS: LINEZOLID 600MG/300ML 300 ML IV SCH (10:00)
[2025-06-20] MEDS: CLOPIDOGREL BISULFATE 75 MG TAB PEG SCH (10:11)
--- NOTE | 2025-06-20 13:53 | DVHPN2 ---
Progress Note - Dictate Date Seen: Jun 20, 2025 Has the PT tested + for MRSA If YES, has PT been informed?: No Medical Necessity Reason Pt with a Central, PICC or Fol: Yes The following are medically ne: PICC Line, Leung Catheter vital signs Vital Sign Date Time Temp Pulse Resp B/P (MAP) Pulse Ox O2 Delivery O2 Flow Rate FiO2 06/20/25 13:09 100 13 90/41 (57) 97 30 06/20/25 10:00 Mechanical Ventilator+ 06/20/25 04:00 98.6 98.6 Total Intake and Output 06/19/25 06/19/25 06/20/25 14:59 22:59 06:59 Intake Total 81.407 ml 364.221 ml 410.313 ml Output Total 450 ml 400 ml Balance 81.407 ml -85.779 ml 10.313 ml medications Current Medications Medications Dose Ordered Sig/Bandar Route Start Time Stop Time Status Last Admin Dose Admin Acetaminophen 650 mg Q6HP PRN PO 05/04/25 15:00 06/04/25 05:45 650 MG Sodium Chloride 10 ml QSHIFT@10,22 IV 05/19/25 22:00 06/20/25 10:02 10 ML Pantoprazole Sodium 40 mg DAILY IV 05/21/25 10:00 06/20/25 10:02 40 MG Artificial Tears 1 drop Q6HP PRN EACHEYE 05/21/25 05:00 06/03/25 21:42 1 DROP Folic Acid 1 mg DAILY PO 05/25/25 10:00 06/20/25 10:00 1 MG Multivitamins 1 tab DAILY PO 05/25/25 10:00 06/20/25 10:01 1 TAB Cyanocobalamin 1,000 mcg DAILY PO 05/25/25 10:00 06/20/25 10:02 1,000 MCG Pyridoxine HCl 50 mg DAILY PO 05/25/25 10:00 06/20/25 10:01 50 MG Ondansetron HCl 4 mg Q4HPRN PRN IV 05/25/25 18:00 Amiodarone HCl 200 mg Q12HR GT 05/29/25 10:00 06/20/25 10:01 200 MG Clopidogrel Bisulfate 75 mg DAILY NG 06/02/25 18:30 Cancel Albuterol 1.25 mg Q8HP PRN NEB 06/03/25 14:00 06/20/25 13:09 1.25 MG Acetylcysteine 200 mg Q8HR NEB 06/03/25 14:00 06/20/25 13:09 200 MG Atorvastatin Calcium 40 mg HS PO 06/07/25 22:00 06/19/25 21:24 40 MG Epoetin Norm-epbx 10,000 unit MWF@2100 SC 06/10/25 21:00 06/18/25 22:45 10,000 UNIT Midazolam HCl 50 ml @ 1 mls/hr Q24H IV 06/09/25 23:00 06/16/25 04:25 2 MLS/HR Fentanyl Citrate 250 ml @ 2.5 mls/hr Q24H IV 06/09/25 23:00 06/20/25 04:46 2.5 MLS/HR Lactulose 30 ml TID PO 06/14/25 12:30 06/19/25 16:30 30 ML Sennosides 8.6 mg QHSP NG 06/15/25 22:00 06/18/25 21:46 8.6 MG Enteral Nutritional Formula 1,000 ml 60ML/HR NG 06/16/25 10:45 Vasopressin 20 units/Sodium Chloride 100 ml @ 9 mls/hr Q11H7M IV 06/16/25 16:00 06/18/25 01:03 9 MLS/HR Norepinephrine Bitartrate 32 mg/ Sodium Chloride 250 ml @ 0.469 mls/ hr Q24H IV 06/16/25 18:15 06/17/25 20:40 0.469 MLS/HR Diagnostic Test (Pha) 1 strip Q6HR 06/18/25 00:00 06/20/25 11:57 1 STRIP Insulin Human Regular Q6HR SC 06/18/25 00:00 06/20/25 12:15 3 UNITS Dextrose 50 ml UD PRN IV 06/17/25 20:00 Meropenem 50 ml @ 17 mls/hr DAILY@2200 IV 06/19/25 22:00 06/19/25 21:24 17 MLS/HR Clopidogrel Bisulfate 75 mg DAILY PEG 06/20/25 10:00 06/20/25 10:11 75 MG Linezolid 300 ml @ 150 mls/hr Q12HR IV 06/20/25 10:00 06/20/25 10:00 150 MLS/HR laboratory and microbiology Laboratory Tests 06/20/25 03:55 Test 06/20/25 03:55 Range/Units Serum Glucose 174 H 74-106 mg/dL Assessment/Plan Impression Acute hypoxemic respiratory failure Atelectasis Fluid overload Pleural effusions Patient seen and examined in the ICU Events on the ventilator s/p tracheostomy peep 7 fi02 30% s/p peg abg: reviewed CXR reviewed Management plan Vent support Titrate to maintain sats 90% or above Sedation holidays daily Continue antibiotics F/u cultures Bronchodilators diurese/HD Monitor renal function Monitor electrolytes Supplement as needed Awaiting LTACH placement Critical care time 35 minutes Dietary Evaluation Review Comments: 1) Advance to [facility] 75gm + cardiac diet 2) Armen 1 pk BID, MVI w/ minerals 1 tab daily, VitC 500mg BID, Zinc sulfate 220mg BID x 10 days 3) Monitor NPO status, lab values, weight trend, and I/O Expected Outcomes/Goals: To meet >75% estimated needs Wound to improve Fu 2-3 days Plan discussed with: Patient DELROY REDD MD Jun 20, 2025 13:53
--- NOTE | 2025-06-20 16:32 | DVHPNRES ---
Progress Note Date Seen: Jun 20, 2025 Resident Creating Document: FABRICIO CALVIN RESIDENT Has the PT tested + for MRSA If YES, has PT been informed?: No Medical Necessity Reason Pt with a Central, PICC or Fol: Yes The following are medically ne: PICC Line, Leung Catheter Subjective Review of Systems The patient remains critically ill but hemodynamically and respiratory-plascencia stable on mechanical ventilation via tracheostomy. He continues to require ICU- level care for acute hypoxemic respiratory failure, ischemic cardiomyopathy (EF 20%), ESRD on hemodialysis, and health-careassociated infection. Today, the patient underwent ultrafiltration via hemodialysis, and 1 liter of fluid was successfully removed with good tolerance. Levofloxacin was restarted due to persistent pulmonary congestion and suspected superimposed bacterial infection. Vancomycin was discontinued, and Linezolid was initiated for coverage of resistant gram-positive organisms per ID recommendation, in combination with Meropenem for MDR gram-negative coverage. Repeat blood cultures have been sent to monitor for clearance. Gastrointestinal status: PEG-tube residuals have improved significantly from 700 mL yesterday to 300 mL today. Continuous tube feeding rate was adjusted to 20 mL/hr for better tolerance. The patient had two bowel movements today; stool brown, no melena or hematochezia. Abdomen remains soft, non-tender, and PEG site clean/dry/intact. Vital signs: BP 105/54 mmHg, HR 88 bpm, RR 14, SpO? 99 % on FiO? 30 %. No fevers, no hypotensive episodes.?Case management and social work continue to coordinate LTACH transfer for ventilator weaning and rehabilitation. REVIEW OF SYSTEMS (Limited sedated, ventilated) * General: Sedated, critically ill, stable on ventilator. * HEENT: Trach in place, no bleeding or erythema. * CV: Stable HR and MAP, off vasopressors. * Resp: Mechanically ventilated, tolerating settings, no distress. * GI: PEG-feeds at 20 mL/hr, residuals improving, 2 BMs, abdomen soft. * : Anuric, on HD. * Skin: Wounds healing, no new erythema. * Neuro: Sedated, pupils equal/reactive. Objective vital signs Vital Sign Date Time Temp Pulse Resp B/P (MAP) Pulse Ox O2 Delivery O2 Flow Rate FiO2 06/20/25 15:04 96 12 89/48 (62) 97 30 06/20/25 14:00 Mechanical Ventilator+ 06/20/25 12:00 98.0 98.0 Total Intake and Output 06/19/25 06/19/25 06/20/25 15:00 23:00 07:00 Intake Total 82.345 ml 358.752 ml 414.219 ml Output Total 450 ml 400 ml Balance 82.345 ml -91.248 ml 14.219 ml medications Current Medications Medications Dose Ordered Sig/Bandar Route Start Time Stop Time Status Last Admin Dose Admin Acetaminophen 650 mg Q6HP PRN PO 05/04/25 15:00 06/04/25 05:45 650 MG Sodium Chloride 10 ml QSHIFT@, IV 05/19/25 22:00 06/20/25 10:02 10 ML Pantoprazole Sodium 40 mg DAILY IV 05/21/25 10:00 06/20/25 10:02 40 MG Artificial Tears 1 drop Q6HP PRN EACHEYE 05/21/25 05:00 06/03/25 21:42 1 DROP Folic Acid 1 mg DAILY PO 05/25/25 10:00 06/20/25 10:00 1 MG Multivitamins 1 tab DAILY PO 05/25/25 10:00 06/20/25 10:01 1 TAB Cyanocobalamin 1,000 mcg DAILY PO 05/25/25 10:00 06/20/25 10:02 1,000 MCG Pyridoxine HCl 50 mg DAILY PO 05/25/25 10:00 06/20/25 10:01 50 MG Ondansetron HCl 4 mg Q4HPRN PRN IV 05/25/25 18:00 Amiodarone HCl 200 mg Q12HR GT 05/29/25 10:00 06/20/25 10:01 200 MG Clopidogrel Bisulfate 75 mg DAILY NG 06/02/25 18:30 Cancel Albuterol 1.25 mg Q8HP PRN NEB 06/03/25 14:00 06/20/25 13:09 1.25 MG Acetylcysteine 200 mg Q8HR NEB 06/03/25 14:00 06/20/25 13:09 200 MG Atorvastatin Calcium 40 mg HS PO 06/07/25 22:00 06/19/25 21:24 40 MG Epoetin Norm-epbx 10,000 unit MWF@2100 SC 06/10/25 21:00 06/18/25 22:45 10,000 UNIT Midazolam HCl 50 ml @ 1 mls/hr Q24H IV 06/09/25 23:00 06/16/25 04:25 2 MLS/HR Fentanyl Citrate 250 ml @ 2.5 mls/hr Q24H IV 06/09/25 23:00 06/20/25 04:46 2.5 MLS/HR Lactulose 30 ml TID PO 06/14/25 12:30 06/19/25 16:30 30 ML Sennosides 8.6 mg QHSP NG 06/15/25 22:00 06/18/25 21:46 8.6 MG Enteral Nutritional Formula 1,000 ml 60ML/HR NG 06/16/25 10:45 Vasopressin 20 units/Sodium Chloride 100 ml @ 9 mls/hr Q11H7M IV 06/16/25 16:00 06/18/25 01:03 9 MLS/HR Norepinephrine Bitartrate 32 mg/ Sodium Chloride 250 ml @ 0.469 mls/ hr Q24H IV 06/16/25 18:15 06/17/25 20:40 0.469 MLS/HR Diagnostic Test (Pha) 1 strip Q6HR 06/18/25 00:00 06/20/25 11:57 1 STRIP Insulin Human Regular Q6HR SC 06/18/25 00:00 06/20/25 12:15 3 UNITS Dextrose 50 ml UD PRN IV 06/17/25 20:00 Meropenem 50 ml @ 17 mls/hr DAILY@2200 IV 06/19/25 22:00 06/19/25 21:24 17 MLS/HR Clopidogrel Bisulfate 75 mg DAILY PEG 06/20/25 10:00 06/20/25 10:11 75 MG Linezolid 300 ml @ 150 mls/hr Q12HR IV 06/20/25 10:00 06/20/25 10:00 150 MLS/HR Examination General: Critically ill, sedated, on trach vent; no acute distress. HEENT: Trach in place; no discharge; mucosa moist. CV: S1S2 regular, no murmurs. Resp: Bilateral diminished breath sounds, mild crackles; FiO? 30 %. Abdomen: Soft, non-tender; PEG site clean; bowel sounds present. Extremities: Trace edema; L BKA stump intact. Skin: Wounds dressed and healing; no breakdown. Neuro: Sedated, non-focal; pupils equal/reactive. laboratory and microbiology Laboratory Tests 06/20/25 03:55 Test 06/20/25 03:55 Range/Units Serum Glucose 174 H 74-106 mg/dL Microbiology Date/Time Source Procedure Growth Status 06/17/25 16:00 Back Gram Stain - Final Resulted 06/17/25 16:00 Wound Culture - Preliminary Enterococcus faecium - VRE Resulted 06/16/25 12:31 Urine - Midstream Clean Catch Urine Culture - Final Complete 06/11/25 12:50 Sputum Gram Stain - Final Complete 06/11/25 12:50 Respiratory Culture - Final Acinetobacter baumanii/haemol Complete 06/11/25 09:40 Blood Blood Culture - Final NO GROWTH AFTER 5 DAYS OF INCUBATION. Complete Problem List/Assessment/Plan Problem List/Assessment/Plan Assessment Critical, complex multi-organ failure patient. 1. Severe Sepsis / Pneumonia due to MDR organisms (MDR Acinetobacter baumannii, Stenotrophomonas, Pseudomonas, Enterobacter). On broad antimicrobials ).POA 2. Acute hypoxemic respiratory failure * On mechanical ventilation, FiO? 35%, PEEP 10, due to pneumonia and CHF. 3. 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 Cardiogenic shock secondary to ischemic cardiomyopathy ruled in * On norepinephrine and vasopressin drips, MAP target >65. 5. Atrial fibrillation previously on amiodarone drip; now rate-controlled. 6. Acute on Chronic HFrEF POA 7. PAD with Left foot gangrene s/p BKA and Status post stent placemnet stable surgical site. POA 9. Metabolic encephalopathy POA 10. History of DVT POA prophylaxis complicated by thrombocytopenia. 11. Poor prognosis given multi-organ dysfunction, infections, dialysis- dependence. 12. NSTEMI Type 2 POA ruled in * Secondary to ischemic cardiomyopathy with EF 20%, triple-vessel CAD, anemia, and critical illness. * Managed conservatively due to non-candidacy for CABG/PCI. Ischemic cardiomyopathy with severe LV systolic dysfunction (EF 20%) ruled in * LVEF 20% with anterior/apical wall hypokinesis; requiring vasopressors. Cardiogenic shock ruled in * Increasing norepinephrine requirement; evidence of poor perfusion. 13. Severe dysphagia with aspiration risk POA ruled in * PEG and tracheostomy planned for long-term support. 14. Anemia of chronic disease (CKD-related, status post-PRBC transfusion) ruled in * Stable Hgb 9.3. POA 8. Thrombocytopenia (improving) ruled in * , improving trend. 9. Type 2 diabetes mellitus, controlled POA ruled in. 10. Dyslipidemia and obesity POA chronic, continue management. Plan SYSTEM-PLASCENCIA TREATMENT PLAN Respiratory * Continue mechanical ventilation via tracheostomy (FiO? 30%, PEEP 10, TV 450, RR 1214). * Maintain SpO? > 92%. * Pulmonology to continue trach care and ventilator weaning as tolerated. * Daily ABG and CXR. Infectious Disease * Meropenem IV 1 g Q8H for MDR Acinetobacter (primary coverage). * Vancomycin IV for possible Gram-positive coverage (monitor troughs). * Monitor WBC, fever, and cultures daily. Cardiac * Daily TELEMTRY * Monitor for arrhythmia (on amiodarone 200 mg daily). * On Levophed, maintain MAP> 65 mmHg, SBP > 90 mmHg. * Continue Atorvastatin 40 mg HS, [id number] mg * Monitor for hypotension during HD. * Continuous telemetry monitoring. Renal * Hemodialysis with ultrafiltration today with PRBC transfusion during session. * Strict I/O, daily weights. * Avoid nephrotoxins. * Albumin 25% IV pre-dialysis as tolerated. GI / Nutrition * PEG feeds: continuous 20 mL/hr (Glucerna 1.2) tolerating. * Residuals improved to 300 mL; continue rate, hold if > 500 mL. * Lactulose 30 mL BID for bowel regulation. * Continue Protonix 40 mg IV daily for gastritis prophylaxis. * Abdomen soft, PEG site clean continue routine PEG care. Hematology / Coagulation * Monitor CBC, PT/INR, PTT daily. * Transfuse PRBC if Hgb <7 g/dL or symptomatic. * Hold Plavix for 5 days pre-tracheostomy; resume 24 hr post-procedure if stable. * Plt ; transfuse if <30 K or <50 K before procedure. * INR stable; continue to monitor. * Hold pharmacologic DVT prophylaxis due to thrombocytopenia; continue SCDs. Endocrine / Metabolic * Insulin sliding scale; maintain BG 709235 mg/dL. * Monitor electrolytes and replete as needed. Sedation / Analgesia * Continue Fentanyl and Midazolam infusions per sedation protocol (RASS -2 to - 3). * Daily sedation awakening trial when safe. Prophylaxis * DVT: SCDs only (no heparin due to thrombocytopenia). * GI: Pantoprazole daily. * Skin: Turn q2h, offload pressure points.* Continue wound care per WOCN protocol: saline irrigation, non-adherent dressings. * Monitor wound cultures and signs of infection. * Reposition q2h; offload pressure points. * CLABSI bundle: Daily line check. Discharge planning Care * Social work consult placed for LTAC placement Case discussed in detail with the attending physician, including the clinical presentation, diagnostic workup, and comprehensive management plan. The duration of time spent in direct critical care management of this patient, including evaluation, review of clinical data, coordination of care, and decision-making, was 45 minutes. Plan discussed with: Other (RN) My Orders My Orders Orders - FABRICIO CALVIN Procedure Category Date Status Time Blood Culture EUGENIO 06/20/25 Uncollected 08:16 Linezolid 600mg/300ml PHA 06/20/25 In Process (Zyvox) 10:00 Dietary Evaluation Review Comments: 1) Advance to [facility] 75gm + cardiac diet 2) Armen 1 pk BID, MVI w/ minerals 1 tab daily, VitC 500mg BID, Zinc sulfate 220mg BID x 10 days 3) Monitor NPO status, lab values, weight trend, and I/O Expected Outcomes/Goals: To meet >75% estimated needs Wound to improve Fu 2-3 days Date of Service: Jun 20, 2025 Billing Provider: LARUEN MA MD, RAGHAVA RAO RESIDENT Jun 20, 2025 16:32
--- NOTE | 2025-06-20 16:46 | DVHPN2 ---
Progress Note Date Seen: Jun 20, 2025 Has the PT tested + for MRSA If YES, has PT been informed?: No Medical Necessity Reason Pt with a Central, PICC or Fol: Yes The following are medically ne: PICC Line, Leung Catheter Subjective Patient reports: Other Review of Systems: Deferred Objective vital signs Vital Sign Date Time Temp Pulse Resp B/P (MAP) Pulse Ox O2 Delivery O2 Flow Rate FiO2 06/20/25 15:04 96 12 89/48 (62) 97 30 06/20/25 14:00 Mechanical Ventilator+ 06/20/25 12:00 98.0 98.0 Total Intake and Output 06/19/25 06/19/25 06/20/25 14:59 22:59 06:59 Intake Total 81.407 ml 364.221 ml 410.313 ml Output Total 450 ml 400 ml Balance 81.407 ml -85.779 ml 10.313 ml medications Current Medications Medications Dose Ordered Sig/Bandar Route Start Time Stop Time Status Last Admin Dose Admin Acetaminophen 650 mg Q6HP PRN PO 05/04/25 15:00 06/04/25 05:45 650 MG Sodium Chloride 10 ml QSHIFT@10,22 IV 05/19/25 22:00 06/20/25 10:02 10 ML Pantoprazole Sodium 40 mg DAILY IV 05/21/25 10:00 06/20/25 10:02 40 MG Artificial Tears 1 drop Q6HP PRN EACHEYE 05/21/25 05:00 06/03/25 21:42 1 DROP Folic Acid 1 mg DAILY PO 05/25/25 10:00 06/20/25 10:00 1 MG Multivitamins 1 tab DAILY PO 05/25/25 10:00 06/20/25 10:01 1 TAB Cyanocobalamin 1,000 mcg DAILY PO 05/25/25 10:00 06/20/25 10:02 1,000 MCG Pyridoxine HCl 50 mg DAILY PO 05/25/25 10:00 06/20/25 10:01 50 MG Ondansetron HCl 4 mg Q4HPRN PRN IV 05/25/25 18:00 Amiodarone HCl 200 mg Q12HR GT 05/29/25 10:00 06/20/25 10:01 200 MG Clopidogrel Bisulfate 75 mg DAILY NG 06/02/25 18:30 Cancel Albuterol 1.25 mg Q8HP PRN NEB 06/03/25 14:00 06/20/25 13:09 1.25 MG Acetylcysteine 200 mg Q8HR NEB 06/03/25 14:00 06/20/25 13:09 200 MG Atorvastatin Calcium 40 mg HS PO 06/07/25 22:00 06/19/25 21:24 40 MG Epoetin Norm-epbx 10,000 unit MWF@2100 SC 06/10/25 21:00 06/18/25 22:45 10,000 UNIT Midazolam HCl 50 ml @ 1 mls/hr Q24H IV 06/09/25 23:00 06/16/25 04:25 2 MLS/HR Fentanyl Citrate 250 ml @ 2.5 mls/hr Q24H IV 06/09/25 23:00 06/20/25 04:46 2.5 MLS/HR Lactulose 30 ml TID PO 06/14/25 12:30 06/19/25 16:30 30 ML Sennosides 8.6 mg QHSP NG 06/15/25 22:00 06/18/25 21:46 8.6 MG Enteral Nutritional Formula 1,000 ml 60ML/HR NG 06/16/25 10:45 Vasopressin 20 units/Sodium Chloride 100 ml @ 9 mls/hr Q11H7M IV 06/16/25 16:00 06/18/25 01:03 9 MLS/HR Norepinephrine Bitartrate 32 mg/ Sodium Chloride 250 ml @ 0.469 mls/ hr Q24H IV 06/16/25 18:15 06/17/25 20:40 0.469 MLS/HR Diagnostic Test (Pha) 1 strip Q6HR 06/18/25 00:00 06/20/25 11:57 1 STRIP Insulin Human Regular Q6HR SC 06/18/25 00:00 06/20/25 12:15 3 UNITS Dextrose 50 ml UD PRN IV 06/17/25 20:00 Meropenem 50 ml @ 17 mls/hr DAILY@2200 IV 06/19/25 22:00 06/19/25 21:24 17 MLS/HR Clopidogrel Bisulfate 75 mg DAILY PEG 06/20/25 10:00 06/20/25 10:11 75 MG Linezolid 300 ml @ 150 mls/hr Q12HR IV 06/20/25 10:00 06/20/25 10:00 150 MLS/HR Examination: GENERAL:Abnormal, LUNGS:Abnormal, MSK:Abnormal, NEURO:Abnormal laboratory and microbiology Laboratory Tests 06/20/25 03:55 Test 06/20/25 03:55 Range/Units Serum Glucose 174 H 74-106 mg/dL Microbiology Date/Time Source Procedure Growth Status 06/17/25 16:00 Back Gram Stain - Final Resulted 06/17/25 16:00 Wound Culture - Preliminary Enterococcus faecium - VRE Resulted 06/16/25 12:31 Urine - Midstream Clean Catch Urine Culture - Final Complete 06/11/25 12:50 Sputum Gram Stain - Final Complete 06/11/25 12:50 Respiratory Culture - Final Acinetobacter baumanii/haemol Complete 06/11/25 09:40 Blood Blood Culture - Final NO GROWTH AFTER 5 DAYS OF INCUBATION. Complete Problem List/Assessment/Plan Problem List/Assessment/Plan Acute kidney injury superimposed Chronic Kidney Disease stage IV secondary hemodynamic mediated, FeNa < 1% Chronic kidney disease stage IV followed by Dr. Ponce Gangrene left foot, status post left below-knee amputation 05/20 Left lower extremity DVT Ventilator-dependent hypoxic respiratory failure intubated /extubated Diabetes mellitus type 2 Chronic diastolic Congestive heart failure NSTEMI Hyponatremia due to excess H2O Dropping hemoglobin Anemia due to blood loss Metabolic acidosis Septic shock History of testicular cancer Cellulitis lower extremity thrombocytopenia Recommendations HD today /on trach Epogen with dialysis Guarded prognosis Poor long-term prognosis Plan discussed with: Other My Orders My Orders Orders - SHANTANU BECK MD Procedure Category Date Status Time Communication Order ORDERS 06/20/25 Transmitted 06:51 Dietary Evaluation Review Comments: 1) Advance to [facility] 75gm + cardiac diet 2) Armen 1 pk BID, MVI w/ minerals 1 tab daily, VitC 500mg BID, Zinc sulfate 220mg BID x 10 days 3) Monitor NPO status, lab values, weight trend, and I/O Expected Outcomes/Goals: To meet >75% estimated needs Wound to improve Fu 2-3 days SHANTANU BECK MD Jun 20, 2025 16:46
[2025-06-20] MEDS: EPOETIN ALFA-EPBX 10,000 UNIT/1ML VIAL SC ONE (20:50)
--- NOTE | 2025-06-20 22:12 | DVHPN2 ---
Progress Note - Dictate Date Seen: Jun 20, 2025 Has the PT tested + for MRSA If YES, has PT been informed?: No Medical Necessity Reason Pt with a Central, PICC or Fol: Yes The following are medically ne: PICC Line, Leung Catheter Subjective No new complaints Patient is S/P tracheostomy and PEG tube placement Patient underwent a tracheostomy this morning His G-tube site is clean and patient is tolerating tube feedings with a goal rate of 60 mL/hour Critically ill patient with NSTEMI Type 2, EF 20%, shock requiring vasopressors, ESRD on HD, ventilator dependence, Hemoglobin 8.6 Brown stool no bleeding vital signs Vital Sign Date Time Temp Pulse Resp B/P (MAP) Pulse Ox O2 Delivery O2 Flow Rate FiO2 06/20/25 20:32 99 12 119/60 (79) 98 30 06/20/25 20:00 Mechanical Ventilator+ 06/20/25 12:00 98.0 98.0 Total Intake and Output 06/19/25 06/19/25 06/20/25 15:00 23:00 07:00 Intake Total 82.345 ml 358.752 ml 414.219 ml Output Total 450 ml 400 ml Balance 82.345 ml -91.248 ml 14.219 ml medications Current Medications Medications Dose Ordered Sig/Bandar Route Start Time Stop Time Status Last Admin Dose Admin Acetaminophen 650 mg Q6HP PRN PO 05/04/25 15:00 06/04/25 05:45 650 MG Sodium Chloride 10 ml QSHIFT@10,22 IV 05/19/25 22:00 06/20/25 20:52 10 ML Pantoprazole Sodium 40 mg DAILY IV 05/21/25 10:00 06/20/25 10:02 40 MG Artificial Tears 1 drop Q6HP PRN EACHEYE 05/21/25 05:00 06/03/25 21:42 1 DROP Folic Acid 1 mg DAILY PO 05/25/25 10:06/20/25 10:00 1 MG Multivitamins 1 tab DAILY PO 05/25/25 10:00 06/20/25 10:01 1 TAB Cyanocobalamin 1,000 mcg DAILY PO 05/25/25 10:00 06/20/25 10:02 1,000 MCG Pyridoxine HCl 50 mg DAILY PO 05/25/25 10:00 06/20/25 10:01 50 MG Ondansetron HCl 4 mg Q4HPRN PRN IV 05/25/25 18:00 Amiodarone HCl 200 mg Q12HR GT 05/29/25 10:00 06/20/25 20:51 200 MG Clopidogrel Bisulfate 75 mg DAILY NG 06/02/25 18:30 Cancel Albuterol 1.25 mg Q8HP PRN NEB 06/03/25 14:00 06/20/25 13:09 1.25 MG Acetylcysteine 200 mg Q8HR NEB 06/03/25 14:00 06/20/25 13:09 200 MG Atorvastatin Calcium 40 mg HS PO 06/07/25 22:00 06/20/25 20:51 40 MG Epoetin Norm-epbx 10,000 unit MWF@2100 SC 06/10/25 21:00 06/18/25 22:45 10,000 UNIT Midazolam HCl 50 ml @ 1 mls/hr Q24H IV 06/09/25 23:00 06/16/25 04:25 2 MLS/HR Fentanyl Citrate 250 ml @ 2.5 mls/hr Q24H IV 06/09/25 23:00 06/20/25 04:46 2.5 MLS/HR Lactulose 30 ml TID PO 06/14/25 12:30 06/20/25 20:51 30 ML Sennosides 8.6 mg QHSP NG 06/15/25 22:00 06/20/25 20:51 8.6 MG Enteral Nutritional Formula 1,000 ml 60ML/HR NG 06/16/25 10:45 Vasopressin 20 units/Sodium Chloride 100 ml @ 9 mls/hr Q11H7M IV 06/16/25 16:00 06/18/25 01:03 9 MLS/HR Norepinephrine Bitartrate 32 mg/ Sodium Chloride 250 ml @ 0.469 mls/ hr Q24H IV 06/16/25 18:15 06/17/25 20:40 0.469 MLS/HR Diagnostic Test (Pha) 1 strip Q6HR 06/18/25 00:00 06/20/25 17:57 1 STRIP Insulin Human Regular Q6HR SC 06/18/25 00:00 06/20/25 12:15 3 UNITS Dextrose 50 ml UD PRN IV 06/17/25 20:00 Meropenem 50 ml @ 17 mls/hr DAILY@2200 IV 06/19/25 22:00 06/19/25 21:24 17 MLS/HR Clopidogrel Bisulfate 75 mg DAILY PEG 06/20/25 10:00 06/20/25 10:11 75 MG Linezolid 300 ml @ 150 mls/hr Q12HR IV 06/20/25 10:00 06/20/25 20:51 150 MLS/HR objective General Appearance: Other (Intubated, on vent.) HEENT: Atraumatic, PERRLA Lungs: Clear to auscultation, Other (On vent; transmitted breath sounds bilaterally. Decreased air entry bilaterally. No wheezing or rhonchi. Bibasilar crackles.) Cardiovascular: Normal S1, Normal S2, Other (Atrial fibrillation) Abdomen: Normal bowel sounds, Soft, No tenderness, No hepatospenomegaly Genitourinary: No Apparent Abnormalities (Leung catheter) Musculoskeletal: Other Extremities: Normal pulses, Other (Left BKA stump intact, trace edema ) Neuro: Other (Sedated.) laboratory and microbiology Laboratory Tests 06/20/25 03:55 Test 06/20/25 03:55 Range/Units Serum Glucose 174 H 74-106 mg/dL Problems(with codes): (1) Acute kidney injury superimposed on CKD (2) Gravely disabled (3) Eschar of heel (4) Autonomic dysfunction (5) Near syncope (6) Foot osteomyelitis, right (7) Triple vessel coronary artery disease (8) Peripheral vascular disease (9) Generalized weakness Prognosis Plan Continue postop care of gastrostomy tube Continue G-tube feedings Severe Sepsis / Pneumonia due to MDR organisms (MDR Acinetobacter baumannii, Stenotrophomonas, Pseudomonas, Enterobacter). On broad antimicrobials ) Dietary Evaluation Review Comments: 1) Advance to [facility] 75gm + cardiac diet 2) Armen 1 pk BID, MVI w/ minerals 1 tab daily, VitC 500mg BID, Zinc sulfate 220mg BID x 10 days 3) Monitor NPO status, lab values, weight trend, and I/O Expected Outcomes/Goals: To meet >75% estimated needs Wound to improve Fu 2-3 days Plan discussed with: Other (ICU Nurse) GO BERGMAN MD Jun 20, 2025 22:12
[2025-06-21] VITALS (91 sets, daily range): BP systolic 97–128; BP diastolic 47–81; PULSE 80–102; RESP 10–24; TEMP 97.6–98.6; O2SAT 93–100
[2025-06-21 03:43] LABS: Nucleated Red Blood Cells % 0.0 %
[2025-06-21 03:45] LABS: Anion Gap 11 (5-15); Calcium 10.1 mg/dL (8.7-10.4); Carbon Dioxide 31 mmol/L (20-31); Chloride 102 mmol/L (98-107); Sodium 144 mmol/L (136-145)
[2025-06-21 03:46] LABS: Hematocrit 24.8 % (41.0-53.0); Hemoglobin 8.2 g/dL (13.5-17.5); Mean Corpuscular Hemoglobin 31.2 pg (28.0-32.0); Mean Corpuscular Volume 94.6 fL (80.0-100.0)
[2025-06-21 03:51] LABS: BUN/Creatinine Ratio 8.5 (10.0-20.0); Blood Urea Nitrogen 23 mg/dL (9-23)
[2025-06-21 04:00] LABS: Glucose 112 mg/dL (74-106); Potassium 3.4 mmol/L (3.5-5.1)
--- NOTE | 2025-06-21 05:19 | DVH ---
CHEST RADIOGRAPH Indication: Post TRACHESOTOMY TUBE PLACEMENT Technique: Single frontal view of the chest was obtained COMPARISON: XY CHEST XRAY 1 VIEW on DOS: 06/20/25, XY CHEST XRAY 1 VIEW on DOS: 06/19/25, XY CHEST PO RTABLE on DOS: 06/18/25, XY CHEST XRAY 1 VIEW on DOS: 06/18/25, XY CHEST XRAY 1 VIEW on DOS: 06/17/25 FINDINGS: Lines and Tubes: Tracheostomy, left PICC and right tunneled central venous catheter in satisfactory p osition. Lungs: Ingestion Pleura: No effusion. No pneumothorax. Cardiomediastinal contours: Cardiomegaly Bones: Unremarkable IMPRESSION: Increased pulmonary vascular congestion.
[2025-06-21] MEDS: Nepro With Carb Steady 1 Liter Bottle NG SCH (06:03)
[2025-06-21 07:14] LABS: Base Excess 4.9 mmol/L (-2.0-3.0)
[2025-06-21] MEDS: POTASSIUM CHL 20MEQ/100ML 100 ML IV SCH (07:45)
--- NOTE | 2025-06-21 13:35 | DVHDSRES ---
Discharge Summary Date of Admission Resident Creating Document: FABRICIO CALVIN RESIDENT May 04, 2025 at 14:56 Date of Discharge: May 12, 2025 Admitting Diagnosis Peripheral arterial disease with critical limb ischemia Wounds: Bilateral lower extremity and sacral and gluteal wounds Labs/Diagnostic Data: Laboratory Results Test 06/21/25 07:01 06/21/25 05:50 06/21/25 02:57 06/20/25 10:11 Blood Gas Specimen Type Arterial Blood Gas Sample Site Right radial Blood Gas Patient Temperature 37.0 Arterial Blood Date Drawn [id number] Arterial Blood pH 7.503 (7.350-7.450) Arterial Blood Partial Pressure CO2 36.9 mmHg (35.0-48.0) Arterial Blood Partial Pressure O2 91.3 mmHg (83.0-108.0) Arterial Blood HCO3 28.3 mmol/L (21.0-28.0) Arterial Blood Oxygen Saturation 97.1 % (94.0-98.0) Arterial Blood Base Excess 4.9 mmol/L (-2.0-3.0) Arterial Blood Oxyhemoglobin 96.6 % (94.0-98.0) Arterial Blood Carboxyhemoglobin 0.2 % (0.5-1.5) Arterial Blood Methemoglobin 0.3 % (0.0-1.5) Jeremy Test Modified Blood Gas Total Hemoglobin 9.30 g/dL (13.5-17.5) Blood Gas Set Respiration Rate 12.0 Blood Gas Modality Vent - ac FiO2 % 30.0 Blood Gas Tidal Volume 450.0 Blood Gas PEEP or CPAP 5.0 POC Glucose 96 mg/dl (70-106) White Blood Count 7.2 10^3/uL (4.4-10.8) Red Blood Count 2.62 10^6/uL (4.5-5.90) Hemoglobin 8.2 g/dL (13.5-17.5) Hematocrit 24.8 % (41.0-53.0) Mean Corpuscular Volume 94.6 fL (80.0-100.0) Mean Corpuscular Hemoglobin 31.2 pg (28.0-32.0) Mean Corpuscular Hemoglobin Concent 33.0 g/dL (32.0-36.0) Red Cell Distribution Width 28.8 % (11.8-14.3) Platelet Count 88 10^3/uL (140-450) Mean Platelet Volume 8.5 fL (6.9-10.8) Neutrophils (%) (Auto) 74.0 % (37.0-80.0) Lymphocytes (%) (Auto) 9.0 % (10.0-50.0) Monocytes (%) (Auto) 10.6 % (0.0-12.0) Eosinophils (%) (Auto) 5.4 % (0.0-7.0) Basophils (%) (Auto) 1.0 % (0.0-2.0) Neutrophils # (Auto) 5.4 10 ^3/uL (1.6-8.6) Lymphocytes # (Auto) 0.7 10 ^3/uL (0.4-5.4) Monocytes # (Auto) 0.8 10 ^3/uL (0-1.3) Eosinophils # (Auto) 0.4 10 ^3/uL (0-0.8) Basophils # (Auto) 0.1 10 ^3/uL (0-0.2) Nucleated Red Blood Cells 0.0 % Sodium Level 144 mmol/L (136-145) Potassium Level 3.4 mmol/L (3.5-5.1) Chloride Level 102 mmol/L (98-107) Carbon Dioxide Level 31 mmol/L (20-31) Anion Gap 11 (5-15) Blood Urea Nitrogen 23 mg/dL (9-23) Creatinine 2.72 mg/dL (0.700-1.30) Glomerular Filtration Rate Calc 24 mL/min (>90) BUN/Creatinine Ratio 8.5 (10.0-20.0) Serum Glucose 112 mg/dL (74-106) Calcium Level 10.1 mg/dL (8.7-10.4) Hepatitis B Surface Antigen Negative (Negative) Test 06/20/25 03:55 06/19/25 03:20 06/18/25 02:42 06/17/25 08:48 Platelet Estimate Decreased Anisocytosis (manual) Moderate Magnesium Level 2.2 mg/dL (1.6-2.6) Random Vancomycin Level 20.2 ug/mL (5-10) Polychromasia Slight Macrocytosis Slight Prothrombin Time 14.8 sec (9.3-11.8) Prothrombin Time INR 1.45 (0.9-1.15) Activated Partial Thromboplast Time 37.9 SEC (24.5-34.5) Phosphorus Level 2.9 mg/dL (2.4-5.1) Total Bilirubin 0.8 mg/dL (0.2-1.0) Aspartate Amino Transferase (AST) 18 U/L (13-40) Alanine Aminotransferase (ALT) 11 U/L (7-40) Alkaline Phosphatase 82 U/L (46-116) Total Protein 5.7 g/dL (5.7-8.2) Albumin 3.3 g/dL (3.2-4.8) Cortisol AM Sample 27.34 ug/dL (5.27-22.45) Test 06/16/25 12:31 06/15/25 09:12 06/14/25 15:06 06/11/25 09:40 Urine Color Dark-yellow (Yellow) Urine Clarity Turbid (Clear) Urine pH 6.0 (5.0-9.0) Urine Specific [employer] 1.026 (1.001-1.035) Urine Protein 2+ (Negative) Urine Ketones Negative (Negative) Urine Blood Trace /uL (Negative) Urine Nitrite Negative (Negative) Urine Bilirubin Negative (Negative) Urine Urobilinogen Normal mg/dL (Negative) Urine Leukocyte Esterase Negative /uL (Negative) Urine RBC 1 /hpf (0 - 3) Urine Microscopic WBC 2 /HPF (0-3) Urine Squamous Epithelial Cells Few /hpf (<5) Urine Bacteria Few /hpf (None Seen) Urine Yeast (Budding) Occasional /hpf (None Urine Glucose 1+ mg/dL (Normal) Poikilocytosis (manual) Slight Target Cells Few Tear Drop Cells Few Schistocytes Few Cortisol PM Sample 19.54 ug/dL (3.44-16.76) Troponin I High Sensitivity 1620 ng/L (</=54) Test 06/11/25 08:50 06/11/25 06:42 06/10/25 06:40 06/09/25 22:15 Influenza Type A Antigen Negative (Negative) Influenza Type B Antigen Negative (Negative) SARS-CoV-2 Antigen (Rapid) Negative (NEGATIVE) Blood Gas Spontaneous Rate 12 Iron Level 35 ug/dL (65-175) Total Iron Binding Capacity 167 ug/dL (250-425) Percent Iron Saturation 21.0 % (20-55) Ferritin 2508.0 ng/mL (22-322) Blood Gas EPAP 5 Blood Gas IPAP 12 Blood Gas Critical Value Read Back Yes Blood Gas Notified Whom sherif Blanco md Blood Gas Notified Time [id number] Blood Gas Notified By Felicia patel rrt Test 06/08/25 15:09 06/07/25 22:49 06/07/25 03:06 06/03/25 15:50 Blood Gas Liter Flow 6.00 Venous Blood pH 7.467 (7.320-7.430) Venous Blood pCO2 at Patient Temp 37.5 mmHg (38.0-54.0) Venous Blood pO2 at Patient Temp 48.3 mmHg (23.0-48.0) Venous Blood HCO3 26.5 mmol/L (22.0-29.0) Venous Blood Base Excess 2.9 mmol/L (-2.0-3.0) Blood Gas Comments Vbg Tiara Cells Few Large Platelets Few Test 06/02/25 13:02 05/31/25 03:03 05/27/25 07:09 05/24/25 08:31 Blood Gas Pressure Support 8 Differential Total Cells Counted 100.0 (100) Neutrophils % (Manual) 71 (37.0-80.0) Band Neutrophils % (Manual) 4 Lymphocytes % (Manual) 13 (10.0-50.0) Monocytes % (Manual) 8 (0-12) Eosinophils % (Manual) 4 (0-7) Basophils % (Manual) 0 (0.0-2.0) Metamyelocytes % (manual) 0 Myelocytes % (Manual) 0 Promyelocytes % (Manual) 0 Blast Cells % (Manual) 0 Reactive Lymphocytes 0 Lactic Acid Level 1.6 mmol/L (0.4-2.0) Hepatitis A IgM Antibody Negative Hepatitis B Core IgM Antibody Negative (Negative) Hepatitis C Antibody Negative (Negative) Test 05/23/25 21:10 05/23/25 03:30 05/20/25 01:02 05/19/25 08:14 Blood Gas Spontaneous Tidal Volume 458 Triglycerides Level 46 mg/dL (< 150) Urine WBC Clumps Present /hpf (None Seen) Direct Bilirubin 0.3 mg/dL (<0.3) Test 05/16/25 15:18 05/16/25 15:00 05/14/25 20:00 05/13/25 11:00 Urine Hyaline Casts Few /lpf (0 - 2) Urine Mucus Few (None Seen) Urine Osmolality 359 mOsm/kg Urine Creatinine 122.44 mg/dL (30.0-125.0) Urine Protein/Creatinine Ratio 1.06 Urine Sodium 17 mmol/L (40-220) Urine Total Protein 130.0 mg/dL (1-14) Uric Acid 7.4 mg/dL (3.7-9.2) B-Type Natriuretic Peptide 2815.68 pg/mL (0-100) Vitamin D 25-Hydroxy 29.6 ng/mL (30.0-100) Parathyroid Hormone (Intact) 117.3 pg/mL (18.4-80.1) Stool Occult Blood Negative (Negative) Stool Occult Blood Sample #3 (Negative) Reticulocyte Count (auto) 1.57 % (0.5-1.5) Test 05/13/25 05:12 Lactate Dehydrogenase 293 U/L (120-246) Vitamin B12 Level 461 pg/mL (211-911) Folic Acid 7.78 ng/mL (>5.38) Other Laboratory Tests 06/21/25 02:57 Brief Hx & Hospital Course: Initial Presentation Admitted with progressive left leg necrosis, sepsis, and respiratory failure. Past history significant for CKD IV, ischemic cardiomyopathy, PAD, and diabetes. ICU Course * Required intubation ? tracheostomy due to prolonged ventilatory dependence. * Managed on FiO? 30 %, PEEP 7, SpO? > 95 %. ABGs reviewed daily. * Serial CXRs showed improving congestion and atelectasis. * Sedation holidays daily; patient awake and following commands. * Developed septic shock (MDR pneumonia + gangrenous limb) ? treated with Meropenem + Linezolid, off pressors before discharge. Renal Course * AD superimposed on CKD IV ? ESRD. * Initiated hemodialysis (TTS schedule) with UF ~1 L per session. * Albumin and Epogen administered per protocol. * Electrolytes corrected (K, Mg, Phos). * Strict I&O, daily weights, renal diet with fluid restriction. Surgical Course * 05/06/25: Left SFA stenting by vascular surgery. * 05/20/25: Left BKA by Dr. Hodges; stump care with wound VAC. * : PEG placed for dysphagia/nutrition. * Continued wound care, daily inspection; no infection signs. Cardiovascular * NSTEMI Type 2, ischemic cardiomyopathy (EF 20 %), chronic CHF. * Initially on vasopressors ? weaned off. * Continued GDMT (Amlodipine, Atorvastatin, Aspirin). * Fluid management coordinated with HD. Infectious Disease * MDR organisms treated per ID. * No bacteremia at discharge. * Continued Meropenem 1 g q8h for pnuemonia and Linezolid 600 mg q12h for VRE Wound for 10 days post-transfer. Nutrition * PEG feeds: Nepro @ 60 mL/hr (goal 1440 kcal, 65 g protein). * Supplements: Armen BID, Zinc, Vit C, multivitamin, B-complex. * Dietitian goal: > 75 % of estimated needs. Hematology * Anemia (Hb 7 ? 8 g/dL post-transfusion). * Thrombocytopenia improving. * Monitored CBC thrice weekly. Endocrine * Type 2 DM managed with Regular Insulin q6h per protocol. * BG well-controlled (625332 mg/dL). Disposition * Improved oxygenation, off pressors, stable on vent with FiO? 30 %. * PEG and dialysis functioning well. * Medically stable for transfer to [facility] for continued weaning, HD, wound care, and nutritional rehab. CONDITION AT DISCHARGE * Vitals: BP 105/54 mmHg, HR 88, SpO? 99 % (FiO? 30 %), afebrile. * Neuro: Awake, follows simple commands. * Resp: Tracheostomy in place, no distress. * CV: Regular rhythm, stable hemodynamics. * Abdomen: Soft, PEG site clean. * Extremities: Left BKA stump healing, VAC intact; right foot clean. * Skin: No new ulcers. * Renal: On HD, euvolemic. * Labs: Hb 8 g/dL, Plt 76 K, Cr 2.6 mg/dL, BUN 30 mg/dL, WBC 6.7 K. Consults/Reason for consult Cardiology Nephrology Podiatry Pulmonolgy and critical care Surgery Gastroenterology Operations or Procedures Angiographic evaluation of the lower extremities with FOOD SERVICE and stenting of left superficial femoral artery. Digital subtraction angiography of bilateral lower extremities to the level of the feet. Left foot I&D to bone (55251) Left foot hallux amp (50878) Left foot fourth toe amp (93471) Left foot 5th toe amp (08097) Left foot hallux bone biopsy () Left foot diabetic flap hallux (35629) Left foot delayed closure (64719) Left [id number] amputation. Upper Endoscopy with PEG tube placement. placement of the tracheostomy tube Condition at Discharge: Stable Final Diagnosis/Problems List Peripheral artery disease with left toe gangrene Status post FOOD SERVICE of superficial femoral artery and common femoral artery Acute hypoxemic respiratory failure secondary to fluid overload Acute, Treated/Ongoing Required mechanical ventilation, multiple extubation failures, status post tracheostomy placed; FiO2 30%, PEEP 7, SpO2 >95%. Managed with ABG monitoring, sedation holidays, bronchodilators, pulmonary hygiene, and gradual ventilator weaning. Severe triple-vessel coronary artery disease (has declined CABG) POA Dyslipidemia POA Obesity POA Pneumonia (MDR Klebsiella/Acinetobacter) Acute, Treated/Resolved Managed with Meropenem and Linezolid per ID. CXR improved; afebrile; cultures cleared. Pleural effusion and atelectasis POA Acute, Resolved Managed with diuresis and ventilatory optimization. End-stage renal disease (ESRD) on hemodialysis secondary to CKD IV POAChronic/Ongoing Under nephrology . Dialysis TTS schedule. Managed volume overload; albumin and Epogen 10,000 U SC three times weekly. Acute kidney injury superimposed on CKD IV (hemodynamic, FeNa < 1 %)POA [id number]-[id number], ImprovingOligo-anuric initially; recovered partial urine output. Monitored electrolytes, provided IV fluids as indicated, and started dialysis. Left lower extremity gangrene and chronic osteomyelitis s/p Left Below-Knee Amputation (05/20/25) POA Acute, Treated BKA by Dr. Cristiano Hodges. Post-op wound VAC applied; stump healing well. Left lower extremity DVT History Managed with anticoagulation (Lovenox ? held frankie-op for thrombocytopenia); sequential compression avoided on affected limb. Peripheral arterial disease with critical limb ischemiaPOA Chronic, Treated FOOD SERVICE + stenting of left superficial femoral artery (05/06/25, Dr. Ji). On Plavix + Aspirin. NSTEMI, Type 2 due to demand ischemiaPOA Acute, Treated Troponins mildly elevated. No ischemic changes on ECG. Managed with Aspirin, Statin, BP control, and oxygen. No PCI indicated. Ischemic cardiomyopathy / chronic systolic CHF (EF 20 %) Chronic, Compensated Initially decompensated; improved with diuresis and dialysis. Continued Atorvastatin 40 mg, , fluid restriction. Chronic diastolic CHF (Grade I)POA Chronic, Stable Managed conservatively. BNP trended down Septic shock secondary to gangrenous infection And Pneumonia Septic shock secondary to osteomyelitis of left foot - s/p I&D and BKA POA Acute, Resolved Required vasopressors (norepinephrine, vasopressin drips); off pressors at discharge. Broad-spectrum antibiotics and HD for toxin clearance. Anemia of chronic disease / CKD and post-op blood lossPOA Chronic, ImprovingTransfused 1 unit PRBC; Hb stable 8 g/dL. On Epogen with dialysis. Thrombocytopenia of critical illness Acute, ImprovingNadir 52 K ? 76 K. Heparin held until platelets > 100 K. Hyponatremia due to excess free water / hemodilution Acute, Resolved Corrected with fluid restriction and HD. Metabolic acidosis (renal + lactic)POA Acute, Resolved Corrected via HD and bicarb therapy. Type 2 diabetes mellitus with peripheral neuropathyPOA Chronic, Ongoing Controlled via insulin sliding-scale and renal diet. Glucose 946373 mg/dL. Hypokalemia Acute, CorrectedManaged with KCl repletion and close monitoring. Dysphagia s/p PEG placement Acute, Treated PEG placed by Dr. Valdez; feeds transitioned from Glucerna ? Nepro 60 mL/hr. No aspiration. Malnutrition / critical-illness myopathy Chronic, ImprovingDietary consult: Armen BID, Vit C 500 mg BID, Zinc 220 mg BID, multivitamins, target > 75 % caloric needs. Chronic wound / cellulitis lower extremities (right foot osteomyelitis, resolved)POAChronic, ImprovedManaged with IV antibiotics, wound care, and podiatry. History of testicular cancer POA Chronic, Stable No active disease. Generalized weakness and deconditioningPOA Subacute, OngoingPT/OT initiated. Transfer to [facility] for rehab and vent weaning.(1) Acute kidney injury superimposed on CKD Atrial fibrillation with RVR, rate controlled now new onset, on Amiodarone Cholelithiasis POA, Diabetes mellitus type 2, POA Thrombocytopenia & Anemia likely multifactorial (sepsis, critical illness, marrow suppression, renal disease). Received platelets. PRBC transfusion with dialysis Cyclical vomiting POA resolved with Zofran Foot osteomyelitis, right/Eschar of heel Treated with IV ANTIBIOTICS Discharge Disposition: Acute Care Facility Discharge Instruct/Medications Diet: Consistent carbohydrate, Cardiac 2g Na,low cholest Activity: Bed rest Follow Up/Referral: Follow up with PCP outpatient in 1 week Nephrology HD supervision, anemia management Within 2448 h at [facility] Pulmonology / Critical Care Vent weaning, ABG & trach care Daily rounds Infectious Disease Antibiotic course completion, labs In 35 days Vascular Surgery Post-angioplasty and stent review 2 weeks post-transfer General Surgery BKA stump inspection / VAC change 1 week Gastroenterology PEG tube site check / feeding tolerance 1 week Cardiology CHF, EF 20 %, NSTEMI follow-up 4 weeks Physical & Occupational Therapy Mobility and rehab plan Initiate on arrival Wound Care Nursing Stump and sacral area management Daily Bacon Stringer Calorie/protein adequacy check Weekly Medications: As per EMR Care Plan: 1. Ventilator & Respiratory Care * Continue trach-vent weaning protocol. * Titrate FiO? to maintain SpO? ? 90 %. * Daily sedation holidays, ABG & CXR as needed. * Nebulized Albuterol + Acetylcysteine q8h. * Pulmonary hygiene and suction PRN. 2. Renal / Hemodialysis * HD TTS schedule; monitor weights, I&O, and electrolytes. * Continue Epogen 10,000 U SC MWF, Albumin 25 % PRN. * Fluid restriction ? 1.5 L/day. 3. Cardiovascular * Continue antihypertensives and statin. * Maintain MAP > 65 mmHg. * Monitor for recurrent ischemia or volume overload. 4. Nutrition / GI * Nepro @ 60 mL/hr continuous PEG feeding. * Supplements: Armen BID, Vit C 500 mg BID, Zinc 220 mg BID. * Continue Protonix 40 mg IV daily. * Monitor residuals, BM, weight, and albumin. 5. Infectious Disease * Continue Meropenem and Linezolid 10 days. * Monitor CBC, cultures, and infection signs. 6. Wound / Post-Surgical * Continue wound VAC care to left BKA site. * Off-load pressure areas; turn q2h. * Wound care consult PRN. 7. Endocrine * Continue insulin sliding scale; target BG < 180 mg/dL. 8. Hematology * Monitor CBC MWF. * Transfuse PRN Hb < 7 g/dL. * Resume Heparin 5,000 U SQ q8h for DVT prophylaxis when Plt > 100 K. 9. Rehabilitation * PT/OT daily to maintain limb strength and mobility. * Continue respiratory therapy and bedside exercises. Scheduled Amlodipine Besylate (Amlodipine Besylate), 1 TAB PO DAILY Apixaban Base (Eliquis), 5 MG PO BID Aspirin (Aspirin Adult Low Dose), 1 TAB PO DAILY Atorvastatin Calcium (Atorvastatin Calcium), 20 MG PO HS Calcium Carbonate-Cholecalcife (Calcium 500-10 mg-Mcg), 1 TAB PO BID, (Reported) Carvedilol (Carvedilol), 1 TAB PO BID, (Reported) Furosemide (Furosemide), 1 TAB PO DAILY, (Reported) Glipizide (Glipizide), 1 TAB PO BID, (Reported) Hydrochlorothiazide (Hydrochlorothiazide), 50 MG PO DAILY, (Reported) Linezolid (Zyvox), 600 MG PO BID Nutritional Supplements (Glucerna Carbsteady), 240 ML PO TIDWM Pantoprazole Sodium Sesquihydr (Pantoprazole Sodium), 40 MG PO DAILY Rifampin (Rifampin), 300 MG PO BID Tamsulosin Hcl (Tamsulosin Hcl), 0.4 MG PO QPM Scheduled PRN Hydrocodone-Acetaminophen (Hydrocodone Bitartrate/AC 5-325 mg), 1 TAB PO BID PRN Discharge Statement: "Patient was advised to return to the ER or call 911 if any headaches, dizziness, shortness of breath, chest pain, abdominal pain, bleeding, fevers, or worsening of medical condition. Patient was counseled about treatment plan, medications, possible side effects, patientverbalized understanding. All questions were answered to the best of my ability. This discharge took greater then 30 minutes in planning, reviewing documentation, counseling the patient, and discussing with other team members." ASSESSMENT ASSESSMENT Hospital Course Initial Presentation Admitted with progressive left leg necrosis, sepsis, and respiratory failure. Past history significant for CKD IV, ischemic cardiomyopathy, PAD, and diabetes. ICU Course * Required intubation ? tracheostomy due to prolonged ventilatory dependence. * Managed on FiO? 30 %, PEEP 7, SpO? > 95 %. ABGs reviewed daily. * Serial CXRs showed improving congestion and atelectasis. * Sedation holidays daily; patient awake and following commands. * Developed septic shock (MDR pneumonia + gangrenous limb) ? treated with Meropenem + Linezolid, off pressors before discharge. Renal Course * AD superimposed on CKD IV ? ESRD. * Initiated hemodialysis (TTS schedule) with UF ~1 L per session. * Albumin and Epogen administered per protocol. * Electrolytes corrected (K, Mg, Phos). * Strict I&O, daily weights, renal diet with fluid restriction. Surgical Course * 05/06/25: Left SFA stenting by vascular surgery. * 05/20/25: Left BKA by Dr. Hodges; stump care with wound VAC. * : PEG placed for dysphagia/nutrition. * Continued wound care, daily inspection; no infection signs. Cardiovascular * NSTEMI Type 2, ischemic cardiomyopathy (EF 20 %), chronic CHF. * Initially on vasopressors ? weaned off. * Continued GDMT (Amlodipine, Atorvastatin, Aspirin). * Fluid management coordinated with HD. Infectious Disease * MDR organisms treated per ID. * No bacteremia at discharge. * Continued Meropenem 1 g q8h for pnuemonia and Linezolid 600 mg q12h for VRE Wound for 10 days post-transfer. Nutrition * PEG feeds: Nepro @ 60 mL/hr (goal 1440 kcal, 65 g protein). * Supplements: Armen BID, Zinc, Vit C, multivitamin, B-complex. * Dietitian goal: > 75 % of estimated needs. Hematology * Anemia (Hb 7 ? 8 g/dL post-transfusion). * Thrombocytopenia improving. * Monitored CBC thrice weekly. Endocrine * Type 2 DM managed with Regular Insulin q6h per protocol. * BG well-controlled (360172 mg/dL). Disposition * Improved oxygenation, off pressors, stable on vent with FiO? 30 %. * PEG and dialysis functioning well. * [facility], wound care, and nutritional rehab. CONDITION AT DISCHARGE * Vitals: BP 105/54 mmHg, HR 88, SpO? 99 % (FiO? 30 %), afebrile. * Neuro: Awake, follows simple commands. * Resp: Tracheostomy in place, no distress. * CV: Regular rhythm, stable hemodynamics. * Abdomen: Soft, PEG site clean. * Extremities: Left BKA stump healing, VAC intact; right foot clean. * Skin: No new ulcers. * Renal: On HD, euvolemic. * Labs: Hb 8 g/dL, Plt 76 K, Cr 2.6 mg/dL, BUN 30 mg/dL, WBC 6.7 K. Assessment Peripheral artery disease with left toe gangrene Status post FOOD SERVICE of superficial femoral artery and common femoral artery 1 Acute hypoxemic respiratory failure secondary to fluid overload Acute, Treated/Ongoing Required mechanical ventilation ? tracheostomy placed; FiO2 30%, PEEP 7, SpO2 >95%. Managed with ABG monitoring, sedation holidays, bronchodilators, pulmonary hygiene, and gradual ventilator weaning. 2. pneumonia (MDR Klebsiella/Acinetobacter) Acute, Treated/Resolved Managed with Meropenem and Linezolid per ID. CXR improved; afebrile; cultures cleared. 3.Pleural effusion and atelectasis POA Acute, Resolved Managed with diuresis and ventilatory optimization. 4 End-stage renal disease (ESRD) on hemodialysis secondary to CKD IVPOAChronic/Ongoing Under nephrology . Dialysis TTS schedule. Managed volume overload; albumin and Epogen 10,000 U SC three times weekly. 5 Acute kidney injury superimposed on CKD IV (hemodynamic, FeNa < 1 %)POA [id number], ImprovingOligo-anuric initially; recovered partial urine output. Monitored electrolytes, provided IV fluids as indicated, and started dialysis. 6 Left lower extremity gangrene and chronic osteomyelitis ? s/p Left Below-Knee Amputation (05/20/25) POA Acute, Treated BKA by Dr. Cristiano Hodges. Post-op wound VAC applied; stump healing well. 7.Left lower extremity DVT History Managed with anticoagulation (Lovenox ? held frankie-op for thrombocytopenia); sequential compression avoided on affected limb. 8. Peripheral arterial disease with critical limb ischemiaPOA Chronic, Treated FOOD SERVICE + stenting of left superficial femoral artery (05/06/25, Dr. Ji). On Plavix + Aspirin. 9 NSTEMI, Type 2 due to demand ischemiaPOA Acute, Treated Troponins mildly elevated. No ischemic changes on ECG. Managed with Aspirin, Statin, BP control, and oxygen. No PCI indicated. 10Ischemic cardiomyopathy / chronic systolic CHF (EF 20 %) Chronic, Compensated Initially decompensated; improved with diuresis and dialysis. Continued Atorvastatin 40 mg, , fluid restriction. 12. Chronic diastolic CHF (Grade I)POA Chronic, Stable Managed conservatively. BNP trended down. 12.Septic shock secondary to gangrenous infection And Pneumonia Acute, Resolved Required vasopressors (norepinephrine, vasopressin drips); off pressors at discharge. Broad-spectrum antibiotics and HD for toxin clearance. 13.Anemia of chronic disease / CKD and post-op blood lossPOA Chronic, ImprovingTransfused 1 unit PRBC; Hb stable 8 g/dL. On Epogen with dialysis. 14. Thrombocytopenia of critical illness Acute, ImprovingNadir 52 K ? 76 K. Heparin held until platelets > 100 K. 15. Hyponatremia due to excess free water / hemodilution Acute, Resolved Corrected with fluid restriction and HD. 16.Metabolic acidosis (renal + lactic)POA Acute, Resolved Corrected via HD and bicarb therapy. 17.Type 2 diabetes mellitus with peripheral neuropathyPOA Chronic, Ongoing Controlled via insulin sliding-scale and renal diet. Glucose 036253 mg/dL. 18.Hypokalemia Acute, CorrectedManaged with KCl repletion and close monitoring. 19.Dysphagia s/p PEG placement Acute, Treated PEG placed by Dr. Valdez; feeds transitioned from Glucerna ? Nepro 60 mL/hr. No aspiration. 20Malnutrition / critical-illness myopathy Chronic, ImprovingDietary consult: Armen BID, Vit C 500 mg BID, Zinc 220 mg BID, multivitamins, target > 75 % caloric needs. 21Chronic wound / cellulitis lower extremities (right foot osteomyelitis, resolved)POAChronic, ImprovedManaged with IV antibiotics, wound care, and podiatry. 22History of testicular cancer POA Chronic, Stable No active disease. 23. Generalized weakness and deconditioningPOA Subacute, OngoingPT/OT initiated. Transfer to LTACH for rehab and vent weaning. Date of Service: Jun 21, 2025 Billing Provider: LAUREN MA MD, RAGHAVA RAO RESIDENT Jun 21, 2025 13:35
--- NOTE | 2025-06-21 13:40 | DVHPN2 ---
Progress Note - Dictate Date Seen: Jun 21, 2025 Has the PT tested + for MRSA If YES, has PT been informed?: No Medical Necessity Reason Pt with a Central, PICC or Fol: Yes The following are medically ne: PICC Line, Leung Catheter vital signs Vital Sign Date Time Temp Pulse Resp B/P (MAP) Pulse Ox O2 Delivery O2 Flow Rate FiO2 06/21/25 12:32 98.0 85 13 06/21/25 12:00 30 06/21/25 12:00 113/55 (74) 100 06/21/25 12:00 Mechanical Ventilator+ Total Intake and Output 06/20/25 06/20/25 06/21/25 15:00 23:00 07:00 Intake Total 11.251 ml 200 ml 36 ml Output Total 1000 ml 150 ml 20 ml Balance -988.749 ml 50 ml 16 ml medications Current Medications Medications Dose Ordered Sig/Bandar Route Start Time Stop Time Status Last Admin Dose Admin Acetaminophen 650 mg Q6HP PRN PO 05/04/25 15:00 06/04/25 05:45 650 MG Sodium Chloride 10 ml QSHIFT@10,22 IV 05/19/25 22:00 06/21/25 10:41 10 ML Pantoprazole Sodium 40 mg DAILY IV 05/21/25 10:00 06/21/25 10:40 40 MG Artificial Tears 1 drop Q6HP PRN EACHEYE 05/21/25 05:00 06/03/25 21:42 1 DROP Folic Acid 1 mg DAILY PO 05/25/25 10:00 06/21/25 10:40 1 MG Multivitamins 1 tab DAILY PO 05/25/25 10:00 06/21/25 10:41 1 TAB Cyanocobalamin 1,000 mcg DAILY PO 05/25/25 10:00 06/21/25 10:41 1,000 MCG Pyridoxine HCl 50 mg DAILY PO 05/25/25 10:00 06/21/25 10:41 50 MG Ondansetron HCl 4 mg Q4HPRN PRN IV 05/25/25 18:00 Amiodarone HCl 200 mg Q12HR GT 05/29/25 10:00 06/21/25 10:40 200 MG Clopidogrel Bisulfate 75 mg DAILY NG 06/02/25 18:30 Cancel Albuterol 1.25 mg Q8HP PRN NEB 06/03/25 14:00 06/21/25 06:35 1.25 MG Acetylcysteine 200 mg Q8HR NEB 06/03/25 14:00 06/21/25 06:36 200 MG Atorvastatin Calcium 40 mg HS PO 06/07/25 22:00 06/20/25 20:51 40 MG Epoetin Norm-epbx 10,000 unit MWF@2100 SC 06/10/25 21:00 06/18/25 22:45 10,000 UNIT Midazolam HCl 50 ml @ 1 mls/hr Q24H IV 06/09/25 23:00 06/16/25 04:25 2 MLS/HR Fentanyl Citrate 250 ml @ 2.5 mls/hr Q24H IV 06/09/25 23:00 06/20/25 04:46 2.5 MLS/HR Lactulose 30 ml TID PO 06/14/25 12:30 06/21/25 06:02 30 ML Sennosides 8.6 mg QHSP NG 06/15/25 22:00 06/20/25 20:51 8.6 MG Enteral Nutritional Formula 1,000 ml 60ML/HR NG 06/16/25 10:45 06/21/25 06:03 1,000 ML Vasopressin 20 units/Sodium Chloride 100 ml @ 9 mls/hr Q11H7M IV 06/16/25 16:00 06/18/25 01:03 9 MLS/HR Norepinephrine Bitartrate 32 mg/ Sodium Chloride 250 ml @ 0.469 mls/ hr Q24H IV 06/16/25 18:15 06/17/25 20:40 0.469 MLS/HR Diagnostic Test (Pha) 1 strip Q6HR 06/18/25 00:00 06/21/25 06:02 1 STRIP Insulin Human Regular Q6HR SC 06/18/25 00:00 06/21/25 00:17 4 UNITS Dextrose 50 ml UD PRN IV 06/17/25 20:00 Meropenem 50 ml @ 17 mls/hr DAILY@2200 IV 06/19/25 22:00 06/20/25 23:30 17 MLS/HR Clopidogrel Bisulfate 75 mg DAILY PEG 06/20/25 10:00 06/21/25 10:41 75 MG Linezolid 300 ml @ 150 mls/hr Q12HR IV 06/20/25 10:00 06/21/25 10:40 150 MLS/HR laboratory and microbiology Laboratory Tests 06/21/25 02:57 Test 06/21/25 02:57 Range/Units Serum Glucose 112 H 74-106 mg/dL Assessment/Plan Impression Acute hypoxemic respiratory failure Atelectasis Fluid overload Pleural effusions Patient seen and examined in the ICU Events on the ventilator s/p tracheostomy peep 7 fi02 30% s/p peg abg: reviewed CXR reviewed Management plan Vent support Titrate to maintain sats 90% or above Sedation holidays daily Continue antibiotics F/u cultures Bronchodilators diurese/HD Monitor renal function Monitor electrolytes Supplement as needed Awaiting LTACH placement Critical care time 35 minutes Dietary Evaluation Review Comments: 1) Advance to [facility] 75gm + cardiac diet 2) Armen 1 pk BID, MVI w/ minerals 1 tab daily, VitC 500mg BID, Zinc sulfate 220mg BID x 10 days 3) Monitor NPO status, lab values, weight trend, and I/O Expected Outcomes/Goals: To meet >75% estimated needs Wound to improve Fu 2-3 days Plan discussed with: Other (Rn) DELROY REDD MD Jun 21, 2025 13:40
--- NOTE | 2025-06-21 19:46 | DVHPN2 ---
Progress Note - Dictate Date Seen: Jun 21, 2025 Has the PT tested + for MRSA If YES, has PT been informed?: No Medical Necessity Reason Pt with a Central, PICC or Fol: Yes The following are medically ne: PICC Line, Leung Catheter Subjective No new complaints Patient is S/P tracheostomy and PEG tube placement His G-tube site is clean and patient is tolerating tube feedings with a goal rate of 60 mL/hour Critically ill patient with NSTEMI Type 2, EF 20%, shock requiring vasopressors, ESRD on HD, ventilator dependence, Hemoglobin 8.2; no bowel movement recorded vital signs Vital Sign Date Time Temp Pulse Resp B/P (MAP) Pulse Ox O2 Delivery O2 Flow Rate FiO2 06/21/25 18:47 97 14 119/70 (86) 100 30 06/21/25 18:00 Mechanical Ventilator+ 06/21/25 16:00 97.6 97.6 Total Intake and Output 06/20/25 06/20/25 06/21/25 14:59 22:59 06:59 Intake Total 20.626 ml 200 ml 36 ml Output Total 1000 ml 150 ml 20 ml Balance -979.374 ml 50 ml 16 ml medications Current Medications Medications Dose Ordered Sig/Bandar Route Start Time Stop Time Status Last Admin Dose Admin Acetaminophen 650 mg Q6HP PRN PO 05/04/25 15:00 06/04/25 05:45 650 MG Sodium Chloride 10 ml QSHIFT@10,22 IV 05/19/25 22:00 06/21/25 10:41 10 ML Pantoprazole Sodium 40 mg DAILY IV 05/21/25 10:00 06/21/25 10:40 40 MG Artificial Tears 1 drop Q6HP PRN EACHEYE 05/21/25 05:00 06/03/25 21:42 1 DROP Folic Acid 1 mg DAILY PO 05/25/25 10:06/21/25 10:40 1 MG Multivitamins 1 tab DAILY PO 05/25/25 10:00 06/21/25 10:41 1 TAB Cyanocobalamin 1,000 mcg DAILY PO 05/25/25 10:00 06/21/25 10:41 1,000 MCG Pyridoxine HCl 50 mg DAILY PO 05/25/25 10:00 06/21/25 10:41 50 MG Ondansetron HCl 4 mg Q4HPRN PRN IV 05/25/25 18:00 Amiodarone HCl 200 mg Q12HR GT 05/29/25 10:00 06/21/25 10:40 200 MG Clopidogrel Bisulfate 75 mg DAILY NG 06/02/25 18:30 Cancel Albuterol 1.25 mg Q8HP PRN NEB 06/03/25 14:00 06/21/25 14:10 1.25 MG Acetylcysteine 200 mg Q8HR NEB 06/03/25 14:00 06/21/25 14:10 200 MG Atorvastatin Calcium 40 mg HS PO 06/07/25 22:00 06/20/25 20:51 40 MG Epoetin Norm-epbx 10,000 unit MWF@2100 SC 06/10/25 21:00 06/18/25 22:45 10,000 UNIT Lactulose 30 ml TID PO 06/14/25 12:30 06/21/25 14:00 30 ML Sennosides 8.6 mg QHSP NG 06/15/25 22:00 06/20/25 20:51 8.6 MG Enteral Nutritional Formula 1,000 ml 60ML/HR NG 06/16/25 10:45 06/21/25 06:03 1,000 ML Vasopressin 20 units/Sodium Chloride 100 ml @ 9 mls/hr Q11H7M IV 06/16/25 16:00 06/18/25 01:03 9 MLS/HR Norepinephrine Bitartrate 32 mg/ Sodium Chloride 250 ml @ 0.469 mls/ hr Q24H IV 06/16/25 18:15 06/17/25 20:40 0.469 MLS/HR Diagnostic Test (Pha) 1 strip Q6HR 06/18/25 00:00 06/21/25 12:00 1 STRIP Insulin Human Regular Q6HR SC 06/18/25 00:00 06/21/25 00:17 4 UNITS Dextrose 50 ml UD PRN IV 06/17/25 20:00 Clopidogrel Bisulfate 75 mg DAILY PEG 06/20/25 10:00 06/21/25 10:41 75 MG Linezolid 300 ml @ 150 mls/hr Q12HR IV 06/20/25 10:00 06/21/25 10:40 150 MLS/HR Meropenem 50 ml @ 17 mls/hr Q12HR IV 06/21/25 22:00 objective General Appearance: Other (Intubated, on vent.) HEENT: Atraumatic, PERRLA Lungs: Clear to auscultation, Other (On vent; transmitted breath sounds bilaterally. Decreased air entry bilaterally. No wheezing or rhonchi. 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 (6) Generalized weakness (7) Azotemia (8) Cholelithiasis (9) Chronic kidney disease (10) Diabetic foot Prognosis Plan Patient has been accepted to LTAC and transfer is pending Continue supportive care, continue tube feedings Protonix 40 mg IV daily Once again thank you for allowing me to participate in the care of this patient Dietary Evaluation Review Comments: 1) Advance to [facility] 75gm + cardiac diet 2) Armen 1 pk BID, MVI w/ minerals 1 tab daily, VitC 500mg BID, Zinc sulfate 220mg BID x 10 days 3) Monitor NPO status, lab values, weight trend, and I/O Expected Outcomes/Goals: To meet >75% estimated needs Wound to improve Fu 2-3 days Plan discussed with: Other (Dr Doshi) GO BERGMAN MD Jun 21, 2025 19:46
[2025-06-21] MEDS ORDERED: MEROPENEM 500MG IVPB 50 ML IV SCH (22:00)
== END 2025-06-21 20:07 | DRG 3 ==
LOC: ER 10:32 → EDBD 10:32 → OVERFLOW 14:56 → WEST WING 18:08 → TELE-WESTW 05-20 11:00 → ICU WEST 05-20 17:20 → DOU 06-07 12:18 → ICU WEST 06-10 04:00
PROVIDERS: ADMIT Student in an Organized Health Care Education/Training Program; ATTEND Student in an Organized Health Care Education/Training Program
PROC: 05HA33Z Insertion of Infusion Device into Left Brachial Vein, Percutaneous Approach (ICD-10-PCS; 2025-05-04)
PROC: B54NZZA Ultrasonography of Left Upper Extremity Veins, Guidance (ICD-10-PCS; 2025-05-04)
PROC: 047L35Z Dilation of Left Femoral Artery with Two Drug-eluting Intraluminal Devices, Percutaneous Approach (ICD-10-PCS; principal; 2025-05-06)
PROC: B41G1ZZ Fluoroscopy of Left Lower Extremity Arteries using Low Osmolar Contrast (ICD-10-PCS; 2025-05-06)
PROC: B41F1ZZ Fluoroscopy of Right Lower Extremity Arteries using Low Osmolar Contrast (ICD-10-PCS; 2025-05-06)
PROC: 30233N1 Transfusion of Nonautologous Red Blood Cells into Peripheral Vein, Percutaneous Approach (ICD-10-PCS; 2025-05-13)
PROC: 0Y6Q0Z3 Detachment at Left 1st Toe, Low, Open Approach (ICD-10-PCS; 2025-05-17)
PROC: 0Y6Y0Z3 Detachment at Left 5th Toe, Low, Open Approach (ICD-10-PCS; 2025-05-17)
PROC: 0Y6W0Z3 Detachment at Left 4th Toe, Low, Open Approach (ICD-10-PCS; 2025-05-17)
PROC: 02HV33Z Insertion of Infusion Device into Superior Vena Cava, Percutaneous Approach (ICD-10-PCS; 2025-05-19)
PROC: B548ZZA Ultrasonography of Superior Vena Cava, Guidance (ICD-10-PCS; 2025-05-19)
PROC: 0Y6J0Z1 Detachment at Left Lower Leg, High, Open Approach (ICD-10-PCS; 2025-05-20)
PROC: 5A09357 Assistance with Respiratory Ventilation, Less than 24 Consecutive Hours, Continuous Positive Airway Pressure (ICD-10-PCS; 2025-05-20)
PROC: 30233R1 Transfusion of Nonautologous Platelets into Peripheral Vein, Percutaneous Approach (ICD-10-PCS; 2025-05-21)
PROC: 5A0935A Assistance with Respiratory Ventilation, Less than 24 Consecutive Hours, High Flow/Velocity Cannula (ICD-10-PCS; 2025-05-21)
PROC: 0W993ZZ Drainage of Right Pleural Cavity, Percutaneous Approach (ICD-10-PCS; 2025-05-22)
PROC: 02HV33Z Insertion of Infusion Device into Superior Vena Cava, Percutaneous Approach (ICD-10-PCS; 2025-05-22)
PROC: B548ZZA Ultrasonography of Superior Vena Cava, Guidance (ICD-10-PCS; 2025-05-22)
PROC: 5A0935A Assistance with Respiratory Ventilation, Less than 24 Consecutive Hours, High Flow/Velocity Cannula (ICD-10-PCS; 2025-05-22)
PROC: 5A1955Z Respiratory Ventilation, Greater than 96 Consecutive Hours (ICD-10-PCS; 2025-05-23)
PROC: 0BH17EZ Insertion of Endotracheal Airway into Trachea, Via Natural or Artificial Opening (ICD-10-PCS; 2025-05-23)
PROC: 02HV33Z Insertion of Infusion Device into Superior Vena Cava, Percutaneous Approach (ICD-10-PCS; 2025-05-23)
PROC: B548ZZA Ultrasonography of Superior Vena Cava, Guidance (ICD-10-PCS; 2025-05-23)
PROC: 5A09357 Assistance with Respiratory Ventilation, Less than 24 Consecutive Hours, Continuous Positive Airway Pressure (ICD-10-PCS; 2025-05-23)
PROC: 5A0935A Assistance with Respiratory Ventilation, Less than 24 Consecutive Hours, High Flow/Velocity Cannula (ICD-10-PCS; 2025-05-23)
PROC: 5A1D70Z Performance of Urinary Filtration, Intermittent, Less than 6 Hours Per Day (ICD-10-PCS; 2025-05-24)
PROC: 5A1D70Z Performance of Urinary Filtration, Intermittent, Less than 6 Hours Per Day (ICD-10-PCS; 2025-05-25)
PROC: 5A1D70Z Performance of Urinary Filtration, Intermittent, Less than 6 Hours Per Day (ICD-10-PCS; 2025-05-26)
PROC: 0B918ZZ Drainage of Trachea, Via Natural or Artificial Opening Endoscopic (ICD-10-PCS; 2025-05-27)
PROC: 0BH17EZ Insertion of Endotracheal Airway into Trachea, Via Natural or Artificial Opening (ICD-10-PCS; 2025-05-28)
PROC: 5A1D70Z Performance of Urinary Filtration, Intermittent, Less than 6 Hours Per Day (ICD-10-PCS; 2025-05-28)
PROC: 5A1D70Z Performance of Urinary Filtration, Intermittent, Less than 6 Hours Per Day (ICD-10-PCS; 2025-05-29)
PROC: 5A1D70Z Performance of Urinary Filtration, Intermittent, Less than 6 Hours Per Day (ICD-10-PCS; 2025-05-31)
PROC: 5A1D70Z Performance of Urinary Filtration, Intermittent, Less than 6 Hours Per Day (ICD-10-PCS; 2025-06-01)
PROC: 5A09357 Assistance with Respiratory Ventilation, Less than 24 Consecutive Hours, Continuous Positive Airway Pressure (ICD-10-PCS; 2025-06-02)
PROC: 5A1D70Z Performance of Urinary Filtration, Intermittent, Less than 6 Hours Per Day (ICD-10-PCS; 2025-06-02)
PROC: 5A09357 Assistance with Respiratory Ventilation, Less than 24 Consecutive Hours, Continuous Positive Airway Pressure (ICD-10-PCS; 2025-06-03)
PROC: 5A1D70Z Performance of Urinary Filtration, Intermittent, Less than 6 Hours Per Day (ICD-10-PCS; 2025-06-03)
PROC: 5A09357 Assistance with Respiratory Ventilation, Less than 24 Consecutive Hours, Continuous Positive Airway Pressure (ICD-10-PCS; 2025-06-04)
PROC: 5A1D70Z Performance of Urinary Filtration, Intermittent, Less than 6 Hours Per Day (ICD-10-PCS; 2025-06-04)
PROC: 5A09357 Assistance with Respiratory Ventilation, Less than 24 Consecutive Hours, Continuous Positive Airway Pressure (ICD-10-PCS; 2025-06-05)
PROC: 5A1D70Z Performance of Urinary Filtration, Intermittent, Less than 6 Hours Per Day (ICD-10-PCS; 2025-06-05)
PROC: 5A1D70Z Performance of Urinary Filtration, Intermittent, Less than 6 Hours Per Day (ICD-10-PCS; 2025-06-07)
PROC: 5A1D70Z Performance of Urinary Filtration, Intermittent, Less than 6 Hours Per Day (ICD-10-PCS; 2025-06-07)
PROC: 5A09357 Assistance with Respiratory Ventilation, Less than 24 Consecutive Hours, Continuous Positive Airway Pressure (ICD-10-PCS; 2025-06-08)
PROC: 0JH63XZ Insertion of Tunneled Vascular Access Device into Chest Subcutaneous Tissue and Fascia, Percutaneous Approach (ICD-10-PCS; 2025-06-08)
PROC: 02H633Z Insertion of Infusion Device into Right Atrium, Percutaneous Approach (ICD-10-PCS; 2025-06-08)
PROC: B5181ZA Fluoroscopy of Superior Vena Cava using Low Osmolar Contrast, Guidance (ICD-10-PCS; 2025-06-08)
PROC: B548ZZA Ultrasonography of Superior Vena Cava, Guidance (ICD-10-PCS; 2025-06-08)
PROC: 0BH17EZ Insertion of Endotracheal Airway into Trachea, Via Natural or Artificial Opening (ICD-10-PCS; 2025-06-09)
PROC: 5A1955Z Respiratory Ventilation, Greater than 96 Consecutive Hours (ICD-10-PCS; 2025-06-09)
PROC: 5A09357 Assistance with Respiratory Ventilation, Less than 24 Consecutive Hours, Continuous Positive Airway Pressure (ICD-10-PCS; 2025-06-09)
PROC: 5A1D70Z Performance of Urinary Filtration, Intermittent, Less than 6 Hours Per Day (ICD-10-PCS; 2025-06-09)
PROC: 5A1D70Z Performance of Urinary Filtration, Intermittent, Less than 6 Hours Per Day (ICD-10-PCS; 2025-06-11)
PROC: 5A1D70Z Performance of Urinary Filtration, Intermittent, Less than 6 Hours Per Day (ICD-10-PCS; 2025-06-12)
PROC: 5A1D70Z Performance of Urinary Filtration, Intermittent, Less than 6 Hours Per Day (ICD-10-PCS; 2025-06-13)
PROC: 5A1D70Z Performance of Urinary Filtration, Intermittent, Less than 6 Hours Per Day (ICD-10-PCS; 2025-06-15)
PROC: 5A1D70Z Performance of Urinary Filtration, Intermittent, Less than 6 Hours Per Day (ICD-10-PCS; 2025-06-17)
PROC: 0DH63UZ Insertion of Feeding Device into Stomach, Percutaneous Approach (ICD-10-PCS; 2025-06-17)
PROC: 0B110F4 Bypass Trachea to Cutaneous with Tracheostomy Device, Open Approach (ICD-10-PCS; 2025-06-18)
PROC: 5A1D70Z Performance of Urinary Filtration, Intermittent, Less than 6 Hours Per Day (ICD-10-PCS; 2025-06-20)
DX: A41.50 Gram-negative sepsis, unspecified (principal); G93.41 Metabolic encephalopathy; I21.A1 Myocardial infarction type 2; N17.0 Acute kidney failure with tubular necrosis; R65.21 Severe sepsis with septic shock; J96.01 Acute respiratory failure with hypoxia; J15.69 Pneumonia due to other Gram-negative bacteria; J15.1 Pneumonia due to Pseudomonas; J69.0 Pneumonitis due to inhalation of food and vomit; R57.0 Cardiogenic shock; I50.43 Acute on chronic combined systolic (congestive) and diastolic (congestive) heart failure; N18.6 End stage renal disease; E11.52 Type 2 diabetes mellitus with diabetic peripheral angiopathy with gangrene; E87.1 Hypo-osmolality and hyponatremia; D61.818 Other pancytopenia; I13.2 Hypertensive heart and chronic kidney disease with heart failure and with stage 5 chronic kidney disease, or end stage renal disease; I70.262 Atherosclerosis of native arteries of extremities with gangrene, left leg; I82.432 Acute embolism and thrombosis of left popliteal vein; Z99.11 Dependence on respirator [ventilator] status; M86.8X7 Other osteomyelitis, ankle and foot; E87.20 Acidosis, unspecified; L03.116 Cellulitis of left lower limb; L02.612 Cutaneous abscess of left foot; J91.8 Pleural effusion in other conditions classified elsewhere; J98.11 Atelectasis; K22.10 Ulcer of esophagus without bleeding; E46 Unspecified protein-calorie malnutrition; Z20.822 Contact with and (suspected) exposure to COVID-19; E11.69 Type 2 diabetes mellitus with other specified complication; E11.22 Type 2 diabetes mellitus with diabetic chronic kidney disease; E66.9 Obesity, unspecified; D50.0 Iron deficiency anemia secondary to blood loss (chronic); E87.5 Hyperkalemia; I25.10 Atherosclerotic heart disease of native coronary artery without angina pectoris; E78.5 Hyperlipidemia, unspecified; R74.01 Elevation of levels of liver transaminase levels; I45.10 Unspecified right bundle-branch block; S40.021A Contusion of right upper arm, initial encounter; X58.XXXA Exposure to other specified factors, initial encounter; D63.1 Anemia in chronic kidney disease; N30.90 Cystitis, unspecified without hematuria; L89.152 Pressure ulcer of sacral region, stage 2; I48.0 Paroxysmal atrial fibrillation; E11.65 Type 2 diabetes mellitus with hyperglycemia; I25.5 Ischemic cardiomyopathy; R13.10 Dysphagia, unspecified; K29.70 Gastritis, unspecified, without bleeding; K44.9 Diaphragmatic hernia without obstruction or gangrene; E86.0 Dehydration; E87.6 Hypokalemia; K80.20 Calculus of gallbladder without cholecystitis without obstruction; Z51.5 Encounter for palliative care; Z85.47 Personal history of malignant neoplasm of testis; Z79.899 Other long term (current) drug therapy; Z82.3 Family history of stroke; Z79.82 Long term (current) use of aspirin; Z79.02 Long term (current) use of antithrombotics/antiplatelets; Z99.2 Dependence on renal dialysis; Z99.81 Dependence on supplemental oxygen; Z68.23 Body mass index [BMI] 23.0-23.9, adult; Y93.89 Activity, other specified; Y92.89 Other specified places as the place of occurrence of the external cause; Y99.8 Other external cause status; Z74.01 Bed confinement status; Z79.84 Long term (current) use of oral hypoglycemic drugs
CPT/HCPCS: 32555; 36415; 36556; 36558; 36569; 36600; 37226; 71045; 73630; 74018; 75716; 76604; 76705; 76775; 76937; 77001; 80048; 80053; 80074; 80076; 80202; 81001; 82270; 82306; 82533; 82570; 82607; 82728; 82746; 82805; 82962; 83540; 83550; 83605; 83615; 83735; 83880; 83935; 83970; 84100; 84156; 84300; 84478; 84484; 84550; 85007; 85014; 85018; 85025; 85027; 85045; 85610; 85730; 86850; 86900; 86901; 86920; 87040; 87070; 87075; 87077; 87081; 87086; 87088; 87186; 87205; 87340; 87426; 87804; 90935; 92610; 93005; 93306; 93925; 93970; 93971; 94002; 94003; 94640; 94660; 94667; 94668; 97110; 97116; 97163; 97530; 99152; 99291; 99292; A4344; A4605; C1725; C1769; C1876; C1894; G0378; J0690; J1100; J1642; J1815; J2003; J2185; J2248; J2250; J2405; J2470; J2543; J3480; J3490; J7060; P9047; Q9967